=== PATIENT | female | born 1950 | race Caucasian/White ===

== ENCOUNTER 2022-10-18 13:38 | Outpatient (OUT) | payer MEDICARE, MEDICAID, SELFPAY ==
--- NOTE | 2022-10-18 14:20 | PM.CN ---
Consult Note: HPI Data of Consult Patient: known to practice within the last 3 years Consult date: 10/18/22 Requesting Physician: DEANA GUERRERO NP Primary Care Provider: Geraldo Rocha MD Consult Narrative Reason for consult: low back pain Narrative: Johanna is here for f/u of second MBB lumbar L4/5, L5/S1 done 09/25/22. She had 90% relief of pain for several hours after procedure. LUCÍA 56. She would like to proceed with RFA. Procedure discussed in detail. No new sensorimotor or bowel or bladder issues. No radicular sx. No medication SE. Pain bilat low back worse with all ROM. cc:: CC: DEANA GUERRERO NP Review of Systems ROS Status of ROS 10 or more systems reviewed and unremarkable except as noted in history and below Exam Constitutional: Documenting provider has reviewed patient's vital signs: yes Common normals: no apparent distress, average body habitus, oriented x3, no limitations, healthy appearing, alert and well nourished General appearance: cooperative, comfortable and well developed Orientation/consciousness: Yes awake, Yes oriented to person, Yes oriented to place and Yes oriented to time HENMT: Common normals: normocephalic and head/scalp atraumatic Nose: external nose normal Respiratory: Common normals: normal respiratory effort, no retractions and no use of accessory muscles Effort & inspection: able to speak in complete sentences and symmetric chest movement Back & Pelvis: Lumbar spine/lower back: normal to inspection, ROM limited, pain with ROM, paraspinal muscle tenderness, straight leg raise positive right, straight leg raise positive left and other soft tissue findings (positive facet loading bilat) Extremity: Common normals: normal to inspection, full ROM and normal capillary refill General: normal exam except as noted Other: muscle strength 4/5 bilat with intact sensation bilat LE Skin: Common normals: no rashes or lesions noted Assessment and Plan Assessment and Plan (1) Lumbar spondylosis: Plan schedule thermal RFA right lumbar L4/5, L5/S1 followed by left RFA L4/5, L5/S1 under fluoroscopy. narcan rx refill norco
== END 2022-10-18 13:39 ==
PROVIDERS: PCP Family Medicine; Visit Provider Nurse Practitioner
DX: M47.816 Spondylosis without myelopathy or radiculopathy, lumbar region (principal)
CPT/HCPCS: G0463

== ENCOUNTER 2022-11-14 14:33 | Outpatient (OUT) | payer MEDICARE, MEDICAID, SELFPAY ==
--- NOTE | 2022-11-14 | ECG_ITS ---
[facility] Test Date: 2022-11-14 Pat Name: Johanna Jack Department: Room: - Gender: Female Consulting Manager: : 1950 Requested By: [id number] Order Number: [id number] Reading MD: AXEL OROURKE Measurements Intervals [place] Rate: 83 P: 64 [place]: 204 QRS: 44 QRSD: 75 T: 48 QT: 355 QTc: 418 Interpretive Statements SINUS RHYTHM ANTEROSEPTAL MYOCARDIAL INFARCTION [40+ ms Q WAVE IN V1-V4], OF INDETERMINATE AGE No previous ECG available for comparison Electronically Signed On 11-15-2022 6:59:46 EDT by AXEL OROURKE
== END 2022-11-14 14:34 | disposition home or self-care (01) ==
LOC: CARD 14:33
PROVIDERS: PCP Family Medicine; Visit Provider Nurse Practitioner
DX: Z01.810 Encounter for preprocedural cardiovascular examination (principal); I10 Essential (primary) hypertension
CPT/HCPCS: 93005

== ENCOUNTER 2022-11-27 09:39 | Day surgery (SDC) | payer MEDICARE, MEDICAID, SELFPAY ==
[2022-11-27 09:58] VITALS: BP 175/95; PULSE 100; RESP 16; TEMP 36.3; O2SAT 98
[2022-11-27] MEDS: 0.9 % SODIUM CHLORIDE 500 ML 50 ML IV (10:06)
[2022-11-27 10:07] LABS: Glucometer 140 mg/dL (74-106)
[2022-11-27] MEDS: BUPIVACAINE HCL 0.25% PF 25 MG/10 ML VIAL 4 ML INJ (10:51)
[2022-11-27] MEDS: LIDOCAINE HCL 2% 400 MG/20 ML MDV 8 ML INJ (10:52)
[2022-11-27] MEDS: METHYLPREDNISOLONE ACETATE 40 MG/ML VIAL INJ (10:52)
[2022-11-27 11:03] VITALS: BP 136/75; PULSE 81; RESP 16; O2SAT 95
--- NOTE | 2022-11-27 11:03 | W.PM.PROCNOT ---
Date of procedure: 11/27/22 Pre-op diagnosis: lumbar spondylosis Post-op diagnosis: same Procedure: Right lumbar 4/5 and 5/sacral 1 Radiofrequency ablation Under fluoroscopic guidance Rhizotomy was created using radio frequency ablation at 80?C for 90 seconds 1 to 2 lesions created at each site. Post lesioning injection of 2 mL each of 0.25% Marcaine and 2% lidocaine with Depo-Medrol 40mg. 0.5 to 1 mL injected at each site IV in place yes If Intravenous fluids: NS at KVO Anesthesia local 2% lidocaine for Timeout process compliant After informed consent obtained.Patient brought to the procedure room placed in the prone position skin overlying the area was prepped and draped in a sterile fashion using betadine. 25 gauge needle was used to create a skin wheal over each of the targeted areas utilizing 2% lidocaine. A rhizotomy needle with a 10 mm active tip was inserted over each of the anesthetized areas and directed towards each of the medial branches accomplished under fluoroscopic guidance. after encountering the same we had positive sensory stimulation, negative motor stimulation was noted. lesions were then created. Post lesioning, steroid solution was injected needles removed. Patient was transferred to recovery room in stable condition to be discharged home after meeting criteria. Anesthesia: MAC Surgeon: Db Munoz Condition: stable
[2022-11-27 11:08] VITALS: BP 141/63; PULSE 79; RESP 16; O2SAT 94
== END 2022-11-27 11:20 | disposition home or self-care (01) ==
LOC: SURGOUT 09:41
PROVIDERS: PCP Family Medicine; Visit Provider Anesthesiology Pain Medicine
PROC: (CPT 1992; principal; 2022-11-27 10:30)
DX: M47.816 Spondylosis without myelopathy or radiculopathy, lumbar region (principal); E11.9 Type 2 diabetes mellitus without complications
CPT/HCPCS: 36415; 64635; 64636; 82948; J1030; J2704

== ENCOUNTER 2022-12-04 07:33 | Day surgery (SDC) | payer MEDICARE, MEDICAID, SELFPAY ==
[2022-12-04 07:43] VITALS: BP 150/74; PULSE 73; RESP 16; TEMP 36.2; O2SAT 99
[2022-12-04 07:49] LABS: Glucometer 123 mg/dL (74-106)
[2022-12-04] MEDS: 0.9 % SODIUM CHLORIDE 500 ML 50 ML IV (08:17)
[2022-12-04] MEDS: BUPIVACAINE HCL 0.25% PF 25 MG/10 ML VIAL 4 ML INJ (08:27)
[2022-12-04] MEDS: LIDOCAINE HCL 2% 400 MG/20 ML MDV 10 ML INJ (08:27)
[2022-12-04] MEDS: METHYLPREDNISOLONE ACETATE 40 MG/ML VIAL INJ (08:27)
[2022-12-04 08:39] VITALS: BP 118/67; PULSE 90; RESP 14; O2SAT 95
[2022-12-04 08:43] VITALS: BP 99/60; PULSE 87; RESP 16; O2SAT 97
--- NOTE | 2022-12-04 10:01 | W.PM.PROCNOT ---
Date of procedure: 12/04/22 Pre-op diagnosis: Lumbar Spondylosis Post-op diagnosis: same Procedure: Left Lumbar 4/5 and 5/S1 Radiofrequency ablation Under fluoroscopic guidance Rhizotomy was created using radio frequency ablation at 80?C for 90 seconds 1 to 2 lesions created at each site. Post lesioning injection of 2 mL each of 0.25% Marcaine and 2% lidocaine with Depo-Medrol 40mg. 0.5 to 1 mL injected at each site IV in place yes Intravenous fluids: NS at KVO Anesthesia local 2% lidocaine for Anesthesia Other: MAC Timeout process compliant After informed consent obtained.Patient brought to the procedure room placed in the prone position skin overlying the area was prepped and draped in a sterile fashion using betadine. 25 gauge needle was used to create a skin wheal over each of the targeted areas utilizing 2% lidocaine. A rhizotomy needle with a 10 mm active tip was inserted over each of the anesthetized areas and directed towards each of the medial branches accomplished under fluoroscopic guidance. after encountering the same we had positive sensory stimulation, negative motor stimulation was noted. lesions were then created. Post lesioning, steroid solution was injected needles removed. Patient was transferred to recovery room in stable condition to be discharged home after meeting criteria. Anesthesia: MAC Surgeon: Db Munoz Condition: stable
== END 2022-12-04 09:18 | disposition home or self-care (01) ==
LOC: SURGOUT 07:34
PROVIDERS: PCP Family Medicine; Visit Provider Anesthesiology Pain Medicine
DX: M47.816 Spondylosis without myelopathy or radiculopathy, lumbar region (principal)
CPT/HCPCS: 36415; 64635; 64636; 82948; J1030; J2704

== ENCOUNTER 2022-12-05 12:13 | Outpatient (OUT) | payer MEDICARE, MEDICAID, SELFPAY ==
[2022-12-05 14:11] LABS: Bilirubin Urine NEGATIVE (NEGATIVE); Blood Urine NEGATIVE (NEGATIVE); Clarity Urine CLEAR (CLEAR); Color Urine LT. YELLOW (YELLOW); Glucose Urine UA 250 mg/dL (NEGATIVE); Ketones Urine NEGATIVE (NEGATIVE); Leukocyte Esterase Urine NEGATIVE (NEGATIVE); Nitrite Urine NEGATIVE (NEGATIVE); Protein Urine TRACE mg/dL (NEG/TRACE); Specific Gravity Urine 1.015 (1.005-1.025); pH Urine 6.5 (5.0-9.0)
[2022-12-05 14:20] LABS: WBC Urine 0-2 #/HPF (NONE SEEN)
[2022-12-05 14:21] LABS: Bacteria Urine NONE SEEN #/HPF (NONE SEEN); Cast Seen? NONE SEEN #/LPF (NONE SEEN); Crystals Seen? None Seen #/HPF (None Seen); Mucus Urine NONE SEEN (NONE SEEN); RBC Urine 0-2 #/HPF (0-2); Squamous Epithelial Cell Urine RARE #/LPF (NONE/RARE)
== END 2022-12-05 12:14 | disposition home or self-care (01) ==
LOC: LAB 12:16
PROVIDERS: PCP Family Medicine
DX: E55.9 Vitamin D deficiency, unspecified (principal); E83.52 Hypercalcemia
CPT/HCPCS: 81001; 81003

== ENCOUNTER 2022-12-05 12:18 | Outpatient (OUT) | payer MEDICARE, MEDICAID, SELFPAY ==
[2022-12-05 14:09] LABS: Basophils Percent Auto 0.1 % (0.2-2.0); Eosinophils Absolute Auto 0.3 10^3/uL (0.0-0.7); Eosinophils Percent Auto 2.8 % (0.9-7.0); Hematocrit 36.1 % (36.0-48.0); Hemoglobin 12.4 g/dL (12.0-16.0); Immature Granulocytes Abs Auto 0.06 10^3/uL (0.00-0.03); Immature Granulocytes Pct Auto 0.6 % (0.0-0.5); Lymphocytes Absolute Auto 2.3 10^3/uL (1.2-3.8); Lymphocytes Percent Auto 24.1 % (20.5-60.0); Mean Corpuscular HGB Conc 34.3 g/dL (29.9-35.2); Mean Corpuscular Hemoglobin 30.3 pg (26.7-34.0); Mean Corpuscular Volume 88.3 fL (81.0-99.0); Mean Platelet Volume 11.6 fL (9.5-13.5); Monocytes Absolute Auto 0.8 10^3/uL (0.3-0.8); Monocytes Percent Auto 8.2 % (1.7-12.0); Neutrophils Absolute Auto 6.2 10^3/uL (1.4-6.5); Neutrophils Percent Auto 64.2 % (43.0-75.0); Red Blood Count 4.09 10^6/uL (4.20-5.40); Red Cell Distribution Width 13.2 % (11.0-15.0); White Blood Count 9.7 10^3/uL (4.0-11.0)
[2022-12-05 14:50] LABS: Anion Gap 14.5; BUN Creatinine Ratio 34.4; Carbon Dioxide 24.6 mmol/L (21.0-32.0); Chloride 104 mmol/L (98-107); Estimated GFR (African America >60 (>=60); Estimated GFR (Non-African Ame 60 (>=60); Glucose 87 mg/dL (74-106); Magnesium 1.3 mg/dL (1.8-2.4); Phosphorus 3.3 mg/dL (2.6-4.7); Potassium 4.1 mmol/L (3.5-5.1); Sodium 139 mmol/L (136-145)
[2022-12-05 15:01] LABS: Platelet Count 117 10^3/uL (150-450)
[2022-12-06 14:12] LABS: PTH, Intact 17 pg/mL (15-65)
== END 2022-12-05 12:19 | disposition home or self-care (01) ==
LOC: LAB 12:19
PROVIDERS: PCP Family Medicine
DX: E55.9 Vitamin D deficiency, unspecified (principal); E83.52 Hypercalcemia; I12.9 Hypertensive chronic kidney disease with stage 1 through stage 4 chronic kidney disease, or unspecified chronic kidney disease; N18.2 Chronic kidney disease, stage 2 (mild)
CPT/HCPCS: 36415; 80048; 81001; 82306; 83735; 83970; 84100; 85025

== ENCOUNTER 2022-12-30 10:06 | Outpatient (REF) | payer MEDICARE, MEDICAID, SELFPAY | END 2022-12-30 10:07 | LOC: LAB 10:06 | PROVIDERS: PCP Family Medicine | DX: E13.22 Other specified diabetes mellitus with diabetic chronic kidney disease (principal); N18.2 Chronic kidney disease, stage 2 (mild); I12.9 Hypertensive chronic kidney disease with stage 1 through stage 4 chronic kidney disease, or unspecified chronic kidney disease; E83.42 Hypomagnesemia | CPT/HCPCS: 82570; 83735 ==

== ENCOUNTER 2022-12-31 02:21 | Outpatient (REF) | payer MEDICARE, MEDICAID, SELFPAY ==
[2022-12-31 09:39] LABS: Creatinine Urine Random 67.14 mg/dL (20.00-300.00)
[2022-12-31 10:03] LABS: Estimated GFR (African America >60 (>=60); Estimated GFR (Non-African Ame 50 (>=60); Magnesium 1.7 mg/dL (1.8-2.4)
== END 2022-12-31 02:22 | disposition home or self-care (01) ==
LOC: LAB 02:21
PROVIDERS: PCP Family Medicine
DX: I12.9 Hypertensive chronic kidney disease with stage 1 through stage 4 chronic kidney disease, or unspecified chronic kidney disease (principal); N18.2 Chronic kidney disease, stage 2 (mild); E13.22 Other specified diabetes mellitus with diabetic chronic kidney disease; E83.42 Hypomagnesemia
CPT/HCPCS: 36415; 82565; 82570; 83735

== ENCOUNTER 2023-01-03 09:55 | Outpatient (OUT) | payer MEDICARE, MEDICAID, SELFPAY ==
--- NOTE | 2023-01-03 10:22 | P.CN_ITS ---
Consult Note: HPI Data of Consult Patient: known to practice within the last 3 years Requesting Physician: Jaylin Edwards NP Primary Care Provider: Geraldo Rocha MD Consult Narrative Reason for consult: RFA F/u Narrative: Johanna Jack is a pleasant 72 year old female who presents for evaluation and management of chronic low back pain. Per patient she has had 99% pain relief and improvement in ADLs, range of motion, ability to stand longer, ability to walk further from Right & Left L4/5 L5/S1 RFA. cc:: CC: Jaylin Edwards NP Review of Systems ROS Status of ROS 10 or more systems reviewed and unremarkable except as noted in history and below PFSH PFSH Medical History Surgical History Meds Home Medications and Allergies Home Medications Medication Instructions Recorded Confirmed Type alprazolam 0.5 mg tablet,extended 0.5 mg PO QDAY 10/19/22 12/04/22 History release 24 hr (Xanax XR) amitriptyline 25 mg tablet 25 mg PO QDAY 10/19/22 12/04/22 History amlodipine 10 mg tablet 10 mg PO QDAY 10/19/22 12/04/22 History aspirin 81 mg tablet,delayed 81 mg PO QDAY 10/19/22 12/04/22 History release (Adult Aspirin Regimen) fenofibrate nanocrystallized 145 145 mg PO QDAY 10/19/22 12/04/22 History mg tablet fluoxetine 10 mg tablet 10 mg PO QDAY 10/19/22 12/04/22 History gabapentin 600 mg tablet 600 mg PO TID 10/19/22 12/04/22 History glucagon 3 mg/actuation nasal mg intranasal 10/19/22 History spray (Baqsimi) hydrochlorothiazide 25 mg tablet 12.5 mg PO QDAY 10/19/22 12/04/22 History hydrocodone 5 mg-acetaminophen 325 1 tab PO BID 10/19/22 12/04/22 History mg tablet insulin degludec 100 unit/mL (3 30 unit subcut QDAY 10/19/22 12/04/22 History mL) subcutaneous pen (Tresiba FlexTouch U-100 insulin) insulin lispro 100 unit/mL 1 sliding scale dose subcut 10/19/22 12/04/22 History subcutaneous solution (Humalog USEASDIRECTD U-100 Insulin) losartan 100 mg tablet 100 mg PO QDAY 10/19/22 12/04/22 History metformin 500 mg tablet 500 mg PO BID 10/19/22 12/04/22 History pantoprazole 40 mg tablet,delayed 40 mg PO QDAY 10/19/22 12/04/22 History release pravastatin 20 mg tablet 20 mg PO QDAY 10/19/22 12/04/22 History sucralfate 1 gram tablet 1 g PO TID 10/19/22 12/04/22 History trazodone 100 mg tablet 100 mg PO QDAY 10/19/22 12/04/22 History Allergies Allergy/AdvReac Type Severity Reaction Status Date / Time haloperidol [From Haldol] Allergy Unknown Verified 11/27/22 09:53 ebenezer Allergy Unknown Verified 11/27/22 09:53 Penicillins Allergy Unknown Verified 11/27/22 09:53 topiramate [From Topamax] Allergy Unknown Verified 11/27/22 09:53 Exam Constitutional Documenting provider has reviewed patient's vital signs: yes Common normals: no apparent distress, oriented x3, healthy appearing, alert and well nourished General appearance: cooperative Nutritional appearance: obese HENMT Common normals: normocephalic, hearing grossly normal bilaterally and moist oral mucous membranes Head and scalp: normocephalic Eye Common normals: PERRL Pupil: PERRL Neck & C-Spine Common normals: full ROM General: normal visual inspection Chest Common normals: inspection of chest normal Respiratory Common normals: normal respiratory effort, no retractions and no use of accessory muscles Back & Pelvis Common normals: thoracic and lumbar spine normal to inspection, no thoracic nor lumbar tenderness and thoraco-lumbar ROM normal Sacroiliac joints: SI joints normal Extremity Common normals: normal to inspection and full ROM Neuro Common normals: oriented x3, CN's II-XII intact bilaterally, moves all extrem ities, no focal motor deficits, no sensory deficits noted, deep tendon reflexes 2+ bilaterally and gait normal Sensorium/orientation: alert Motor exam: strength 5/5 throughout and no movement abnormalities noted Psych Common normals: mental status grossly normal, thought process normal, cooperative, affect normal, speech normal and activity/motor behavior normal Speech: normal speech Thought process: normal thought process Results Additional Findings Additional findings: I have checked an OAR[place] report on this patient today and there are no aberrancies noted in the prescribing history.?? A drug screen was completed and reviewed within the last year, and if there has not been a drug screen completed we ordered one today to monitor higher risk, state monitored pain medication use. Assessment and Plan Assessment and Plan (1) Lumbar spondylosis: Assessment and Plan: per pt 99% ongoing pain relief and improvement in ADLs, range of motion, ability to stand longer, ability to walk further from Right & Left L4/5 L5/S1 RFA (2) Chronic pain syndrome: (3) Chronic prescription opiate use: Assessment and Plan: patient has [place] 5-325mg BID PRN pain available encouraged to take sparingly and only as needed now that her pain is almost completely gone she should not need to continue on the medications, no refill at this time I feel these medications are improving the patient's quality of life and allow them to tolerate activities of daily living as well as participate in recreational activity.? The patient does not report intolerable side effects. The patient is NOT opioid naive and non-pharmacologic and non-opioid treatment has failed to significantly relieve the patient's pain and improve functionality. The patient has a diagnosis that is related to a somatic or visceral pain etiology.? I reviewed with the patient the potential risks and side effects with the use of? opioid medications including but not limited to respiratory depression,? sedation, and even . I verified the patient has access to naloxone should? these effects occur. I advised the patient to avoid the use of any other? sedation substances including alcohol, THC, and benzodiazepines while? taking opioid medications due to the risk of compounding side effects and? detrimental outcomes. The patient was advised to let? their family know they had Naloxone in case they would need to administer? the medication.? (4) History of benzodiazepine use: Assessment and Plan: Instructed to not take xanax with norco. Patient advised we will not be prescribing opioids if she continues xanax use, patient agreeable. An FDA review has found that combined use of opioid medicines with benzodiazepines has resulted in serious side effects, including slowed or difficult breathing and deaths. The 2021 CDC guidelines recommend avoiding co- prescribing opioids and benzodiazepines. We discussed that opioids will not be prescribed while the patient remains on benzodiazepines.? (5) Obesity (BMI 30.0-34.9): Assessment and Plan: The patient was counseled that proper dietary changes and consistent participation in a home exercise plan can lead to weight loss. Weight loss can help to improve functionality in patients with chronic pain.? Plan f/u in 3 months continue home exercises continue to follow up with PCP and Nephrology
== END 2023-01-03 09:56 | disposition home or self-care (01) ==
LOC: PM 09:56
PROVIDERS: PCP Family Medicine; Visit Provider Nurse Practitioner
DX: M47.816 Spondylosis without myelopathy or radiculopathy, lumbar region (principal); G89.4 Chronic pain syndrome; Z79.899 Other long term (current) drug therapy
CPT/HCPCS: G0463

== ENCOUNTER 2023-02-14 10:43 | Outpatient (REF) | payer MEDICARE, MEDICAID, SELFPAY ==
[2023-02-15 11:10] LABS: Bilirubin Urine NEGATIVE (NEGATIVE); Blood Urine NEGATIVE (NEGATIVE); Clarity Urine CLEAR (CLEAR); Color Urine LT. YELLOW (YELLOW); Glucose Urine UA NEGATIVE (NEGATIVE); Ketones Urine NEGATIVE (NEGATIVE); Leukocyte Esterase Urine NEGATIVE (NEGATIVE); Nitrite Urine NEGATIVE (NEGATIVE); Protein Urine 30 mg/dL (NEG/TRACE); Urobilinogen Urine 0.2 EU/dL (0.2-1.0)
[2023-02-15 11:48] LABS: Bacteria Urine NONE SEEN #/HPF (NONE SEEN); Cast Seen? NONE SEEN #/LPF (NONE SEEN); Crystals Seen? None Seen #/HPF (None Seen); Mucus Urine NONE SEEN (NONE SEEN); RBC Urine 0-2 #/HPF (0-2); Squamous Epithelial Cell Urine RARE #/LPF (NONE/RARE); WBC Urine NONE SEEN #/HPF (NONE SEEN)
[2023-02-19 15:10] LABS: Albumin, U 73.7 % (.); Alpha-1-Globulin, U 5.3 % (.); Alpha-2-Globulin, U 3.8 % (.); Beta Globulin, U 11.2 % (.); Gamma Globulin, U 5.9 % (.); M-Spike, % Not Observed % (Not Observed); Protein,Total,Urine 52.9 mg/dL (Not Estab.)
== END 2023-02-14 10:44 | disposition home or self-care (01) ==
LOC: LAB 10:43
PROVIDERS: PCP Family Medicine
DX: I12.9 Hypertensive chronic kidney disease with stage 1 through stage 4 chronic kidney disease, or unspecified chronic kidney disease (principal); N18.2 Chronic kidney disease, stage 2 (mild); E13.22 Other specified diabetes mellitus with diabetic chronic kidney disease; E83.42 Hypomagnesemia
CPT/HCPCS: 81001

== ENCOUNTER 2023-02-15 05:18 | Outpatient (REF) | payer MEDICARE, MEDICAID, SELFPAY ==
[2023-02-15 10:42] LABS: Basophils Percent Auto 0.2 % (0.2-2.0); Eosinophils Absolute Auto 0.3 10^3/uL (0.0-0.7); Eosinophils Percent Auto 6.4 % (0.9-7.0); Hematocrit 33.7 % (36.0-48.0); Hemoglobin 11.6 g/dL (12.0-16.0); Immature Granulocytes Abs Auto 0.02 10^3/uL (0.00-0.03); Immature Granulocytes Pct Auto 0.4 % (0.0-0.5); Lymphocytes Absolute Auto 1.3 10^3/uL (1.2-3.8); Lymphocytes Percent Auto 25.1 % (20.5-60.0); Mean Corpuscular HGB Conc 34.4 g/dL (29.9-35.2); Mean Corpuscular Hemoglobin 31.2 pg (26.7-34.0); Mean Corpuscular Volume 90.6 fL (81.0-99.0); Mean Platelet Volume 11.8 fL (9.5-13.5); Monocytes Absolute Auto 0.4 10^3/uL (0.3-0.8); Monocytes Percent Auto 7.4 % (1.7-12.0); Neutrophils Absolute Auto 3.1 10^3/uL (1.4-6.5); Neutrophils Percent Auto 60.5 % (43.0-75.0); Platelet Count 97 10^3/uL (150-450); Red Blood Count 3.72 10^6/uL (4.20-5.40); Red Cell Distribution Width 13.2 % (11.0-15.0); White Blood Count 5.1 10^3/uL (4.0-11.0)
[2023-02-15 12:18] LABS: Anion Gap 12.3; Calcium 9.6 mg/dL (8.5-10.1); Carbon Dioxide 28.8 mmol/L (21.0-32.0); Chloride 104 mmol/L (98-107); Estimated GFR (African America >60 (>=60); Estimated GFR (Non-African Ame 52 (>=60); Glucose 139 mg/dL (74-106); Magnesium 1.4 mg/dL (1.8-2.4); Phosphorus 3.1 mg/dL (2.6-4.7); Potassium 4.1 mmol/L (3.5-5.1); Sodium 141 mmol/L (136-145)
[2023-02-18 12:09] LABS: Albumin 3.3 g/dL (2.9-4.4); Alpha-1-Globulin 0.4 g/dL (0.0-0.4); Alpha-2-Globulin 0.7 g/dL (0.4-1.0); Gamma Globulin 0.8 g/dL (0.4-1.8); Protein, Total 6.1 g/dL (6.0-8.5)
[2023-02-18 15:07] LABS: Free Kappa Lt Chains,S 51.5 mg/L (3.3-19.4); Free Lambda Lt Chains,S 49.8 mg/L (5.7-26.3); Kappa/Lambda Ratio,S 1.03 (0.26-1.65)
== END 2023-02-15 05:19 | disposition home or self-care (01) ==
LOC: LAB 05:18
PROVIDERS: PCP Family Medicine
DX: E13.22 Other specified diabetes mellitus with diabetic chronic kidney disease (principal); I12.9 Hypertensive chronic kidney disease with stage 1 through stage 4 chronic kidney disease, or unspecified chronic kidney disease; N18.2 Chronic kidney disease, stage 2 (mild); E83.42 Hypomagnesemia
CPT/HCPCS: 36415; 80048; 83735; 84100; 84155; 84165; 85025

== ENCOUNTER 2023-02-15 10:37 | Outpatient (REF) | payer MEDICARE, MEDICAID, SELFPAY ==
[2023-02-15 11:49] LABS: BUN Creatinine Ratio 19.4; Calcium 9.7 mg/dL (8.5-10.1); Carbon Dioxide 28.1 mmol/L (21.0-32.0); Chloride 104 mmol/L (98-107); Estimated GFR (African America >60 (>=60); Estimated GFR (Non-African Ame 50 (>=60); Glucose 138 mg/dL (74-106); Potassium 4.1 mmol/L (3.5-5.1); Sodium 141 mmol/L (136-145)
== END 2023-02-15 10:38 | disposition home or self-care (01) ==
LOC: LAB 10:37
PROVIDERS: PCP Family Medicine
DX: I12.9 Hypertensive chronic kidney disease with stage 1 through stage 4 chronic kidney disease, or unspecified chronic kidney disease (principal); E13.22 Other specified diabetes mellitus with diabetic chronic kidney disease; N18.2 Chronic kidney disease, stage 2 (mild); E83.42 Hypomagnesemia
CPT/HCPCS: 36415; 80048; 81001; 83521; 83735; 84100; 84155; 84165; 85025

== ENCOUNTER 2023-03-11 01:29 | Outpatient (REF) | payer MEDICARE, MEDICAID, SELFPAY ==
[2023-03-11 08:07] LABS: Calcium 9.4 mg/dL (8.5-10.1)
[2023-03-11 08:15] LABS: Estimated Average Glucose 117 mg/dL; Glycohemoglobin A1C 5.7 % (4.5-6.2)
== END 2023-03-11 01:30 | disposition home or self-care (01) ==
LOC: LAB 01:29
PROVIDERS: PCP Family Medicine
DX: M81.0 Age-related osteoporosis without current pathological fracture (principal); E11.65 Type 2 diabetes mellitus with hyperglycemia; E55.9 Vitamin D deficiency, unspecified
CPT/HCPCS: 36415; 82306; 82310; 83036

== ENCOUNTER 2023-04-04 09:51 | Outpatient (OUT) | payer MEDICARE, MEDICAID, SELFPAY ==
--- NOTE | 2023-04-04 10:31 | P.CN_ITS ---
Consult Note: HPI Data of Consult Patient: known to practice within the last 3 years Requesting Physician: Jaylin Edwards NP Primary Care Provider: Geraldo Rocha MD Consult Narrative Reason for consult: RFA F/u Narrative: Johanna Jack is a pleasant 72 year old female who presents for evaluation and management of chronic back pain. cc:: CC: Jaylin Edwards NP Review of Systems ROS Status of ROS 10 or more systems reviewed and unremarkable except as noted in history and below Musculoskeletal Reports: back pain PFSH PFSH Medical History Anxiety ?F41.9 - Anxiety disorder, unspecified (ICD-10) Depression ?F32.A - Depression, unspecified (ICD-10) Diabetes ?E11.9 - Type 2 diabetes mellitus without complications (ICD-10) Heartburn ?R12 - Heartburn (ICD-10) Hiatal hernia ?K44.9 - Diaphragmatic hernia without obstruction or gangrene (ICD-10) High cholesterol ?E78.00 - Pure hypercholesterolemia, unspecified (ICD-10) Hypertension ?I10 - Essential (primary) hypertension (ICD-10) Inguinal hernia ?K40.90 - Unilateral inguinal hernia, without obstruction or gangrene, not specified as recurrent (ICD-10) Obesity ?E66.9 - Obesity, unspecified (ICD-10) Osteoarthritis ?M19.90 - Unspecified osteoarthritis, unspecified site (ICD-10) Smoker ?F17.200 - Nicotine dependence, unspecified, uncomplicated (ICD-10) Upper back pain ?M54.9 - Dorsalgia, unspecified (ICD-10) Surgical History H/O tubal ligation ?Z98.51 - Tubal ligation status (ICD-10) H/O: hysterectomy ?Z90.710 - Acquired absence of both cervix and uterus (ICD-10) History of cholecystectomy ?Z90.49 - Acquired absence of other specified parts of digestive tract (ICD- 10) Meds Home Medications and Allergies Home Medications Medication Instructions Recorded Confirmed Type alprazolam 0.5 mg tablet,extended 0.5 mg PO QDAY 10/19/22 12/04/22 History release 24 hr (Xanax XR) amitriptyline 25 mg tablet 25 mg PO QDAY 10/19/22 12/04/22 History amlodipine 10 mg tablet 10 mg PO QDAY 10/19/22 12/04/22 History aspirin 81 mg tablet,delayed 81 mg PO QDAY 10/19/22 12/04/22 History release (Adult Aspirin Regimen) fenofibrate nanocrystallized 145 145 mg PO QDAY 10/19/22 12/04/22 History mg tablet fluoxetine 10 mg tablet 10 mg PO QDAY 10/19/22 12/04/22 History gabapentin 600 mg tablet 600 mg PO TID 10/19/22 12/04/22 History glucagon 3 mg/actuation nasal mg intranasal 10/19/22 History spray (Baqsimi) hydrochlorothiazide 25 mg tablet 12.5 mg PO QDAY 10/19/22 12/04/22 History hydrocodone 5 mg-acetaminophen 325 1 tab PO BID 10/19/22 12/04/22 History mg tablet insulin degludec 100 unit/mL (3 30 unit subcut QDAY 10/19/22 12/04/22 History mL) subcutaneous pen (Tresiba FlexTouch U-100 insulin) insulin lispro 100 unit/mL 1 sliding scale dose subcut 10/19/22 12/04/22 History subcutaneous solution (Humalog USEASDIRECTD U-100 Insulin) losartan 100 mg tablet 100 mg PO QDAY 10/19/22 12/04/22 History metformin 500 mg tablet 500 mg PO BID 10/19/22 12/04/22 History pantoprazole 40 mg tablet,delayed 40 mg PO QDAY 10/19/22 12/04/22 History release pravastatin 20 mg tablet 20 mg PO QDAY 10/19/22 12/04/22 History sucralfate 1 gram tablet 1 g PO TID 10/19/22 12/04/22 History trazodone 100 mg tablet 100 mg PO QDAY 10/19/22 12/04/22 History hydrocodone 5 mg-acetaminophen 325 1 tab PO BID PRN pain #60 tabs 01/24/23 Rx mg tablet hydrocodone 5 mg-acetaminophen 325 1 tab PO BID PRN pain #60 tabs 02/19/23 Rx mg tablet hydrocodone 5 mg-acetaminophen 325 1 tab PO BID PRN pain #60 tabs 03/27/23 Rx mg tablet Allergies Allergy/AdvReac Type Severity Reaction Status Date / Time haloperidol [From Haldol] Allergy Unknown Verified 11/27/22 09:53 ebenezer Allergy Unknown Verified 11/27/22 09:53 Penicillins Allergy Unknown Verified 11/27/22 09:53 topiramate [From Topamax] Allergy Unknown Verified 11/27/22 09:53 Exam Constitutional Documenting provider has reviewed patient's vital signs: yes Common normals: no apparent distress, oriented x3, healthy appearing, alert and well nourished General appearance: cooperative Nutritional appearance: obese HENMT Common normals: normocephalic, hearing grossly normal bilaterally and moist oral mucous membranes Head and scalp: normocephalic Eye Common normals: PERRL Pupil: PERRL Neck & C-Spine Common normals: full ROM General: normal visual inspection Chest Common normals: inspection of chest normal Respiratory Common normals: normal respiratory effort, no retractions and no use of accessory muscles Back & Pelvis Common normals: thoracic and lumbar spine normal to inspection, no thoracic nor lumbar tenderness and thoraco-lumbar ROM normal Thoracic spine/upper back: ROM limited and pain with ROM Sacroiliac joints: SI joints normal Back image (female): 1. patient points to this area as source of worst pain Extremity Common normals: normal to inspection and full ROM Neuro Common normals: oriented x3, CN's II-XII intact bilaterally, moves all extremities, no focal motor deficits, no sensory deficits noted, deep tendon reflexes 2+ bilaterally and gait normal Sensorium/orientation: alert Motor exam: strength 5/5 throughout and no movement abnormalities noted Psych Common normals: mental status grossly normal, thought process normal, cooperative, affect normal, speech normal and activity/motor behavior normal Speech: normal speech Thought process: normal thought process Assessment and Plan Assessment and Plan (1) Thoracic spondylosis: (2) Chronic thoracic back pain: (3) Chronic pain syndrome: (4) Chronic prescription opiate use: Assessment and Plan: I feel these medications are improving the patient's quality of life and allow them to tolerate activities of daily living as well as participate in recreational activity.? The patient does not report intolerable side effects. The patient is NOT opioid naive and non-pharmacologic and non-opioid treatment has failed to significantly relieve the patient's pain and improve functionality. The patient has a diagnosis that is related to a somatic or visceral pain etiology. ? ?? I reviewed with the patient the potential risks and side effects with the use of? opioid medications including but not limited to respiratory depression,? sedation, and even . I verified the patient has access to naloxone should? these effects occur. I advised the patient to avoid the use of any other? sedation substances including alcohol, THC, and benzodiazepines while? taking opioid medications due to the risk of compounding side effects and? detrimental outcomes. I reviewed the PRINCIPAL EMBEDDED SOFTWARE ENGINEER, pain treatment agreement, urine? drug screen, and opioid start talking forms. The patient was advised to let? their family know they had Naloxone in case they would need to administer? the medication.? ?? A drug screen was completed within the last year, and no aberrancies were noted regarding their use of controlled substances. The patient understands they are subject to the terms and conditions of the pain contract that they have signed. ? ?? I have checked an OARRS report on this patient today and there are no aberrancies noted in the prescribing history.? Plan thoracic spine xray discussed facet blocks and RFA for thoracic back pain f/u 2 weeks to review xrays
== END 2023-04-04 09:52 | disposition home or self-care (01) ==
LOC: PM 09:51
PROVIDERS: PCP Family Medicine; Visit Provider Nurse Practitioner
DX: M47.814 Spondylosis without myelopathy or radiculopathy, thoracic region (principal); M54.6 Pain in thoracic spine; G89.4 Chronic pain syndrome; Z79.891 Long term (current) use of opiate analgesic
CPT/HCPCS: G0463

== ENCOUNTER 2023-04-05 18:12 | Inpatient (IN) | payer MEDICARE, MEDICAID, SELFPAY ==
[2023-04-05] VITALS (45 sets, daily range): BP systolic 135–171; BP diastolic 55–96; PULSE 91–109; RESP 0–32; TEMP 36.6–36.7; O2SAT 84–95; BMI 37.8; BMI 36.8
--- NOTE | 2023-04-05 18:11 | ECG_ITS ---
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
--- NOTE | 2023-04-05 18:13 | ED.SOB1 ---
HPI - SOB/Dyspnea General Chief Complaint: Shortness of Breath/Dyspnea Stated Complaint: Shortness of breath Time Seen by Provider: 04/05/23 18:21 Source: patient Mode of arrival: ambulance Limitations: no limitations History of Present Illness HPI Narrative: patient is a 72-year-old female who presents to the emergency department by ambulance from her residence in assisted living for the evaluation of cough, congestion and shortness of breath for the last one week. She is due to finish a Z-Michael tomorrow, she has had no improvement with this medication. She has not been on any other recent steroids or cough medications. She states she has a sensation that she is congested in the chest, she cannot clear any sputum. She reports nasal congestion, shortness of breath. She has had no objective fevers. She denies chest pain. She denies any history of heart or lung problems, she denies any history of pneumonia. Related Data Home Medications Medication Instructions Recorded Confirmed amitriptyline 25 mg tablet 25 mg PO BEDTIME 10/19/22 04/06/23 amlodipine 10 mg tablet 10 mg PO QDAY 10/19/22 04/05/23 aspirin 81 mg tablet,delayed 81 mg PO QDAY 10/19/22 04/05/23 release (Adult Aspirin Regimen) fluoxetine 10 mg tablet 10 mg PO QDAY 10/19/22 04/05/23 gabapentin 600 mg tablet 600 mg PO TID 10/19/22 04/05/23 glucagon 3 mg/actuation nasal 3 mg intranasal .every 6 PRN 10/19/22 04/05/23 spray (Baqsimi) hypoglycemia hydrochlorothiazide 25 mg tablet 25 mg PO QDAY 10/19/22 04/05/23 hydrocodone 5 mg-acetaminophen 325 1 tab PO BID PRN pain 10/19/22 04/05/23 mg tablet insulin degludec 100 unit/mL (3 40 unit subcut .at supp 10/19/22 04/05/23 mL) subcutaneous pen (Tresiba FlexTouch U-100 insulin) insulin lispro 100 unit/mL 1 sliding scale dose subcut 10/19/22 04/05/23 subcutaneous solution (Humalog USEASDIRECTD U-100 Insulin) losartan 100 mg tablet 100 mg PO QDAY 10/19/22 04/05/23 metformin 500 mg tablet 500 mg PO BID 10/19/22 04/05/23 pantoprazole 40 mg tablet,delayed 40 mg PO QDAY 10/19/22 04/05/23 release pravastatin 20 mg tablet 20 mg PO BEDTIME 10/19/22 04/06/23 sucralfate 1 gram tablet 1 g PO BEDTIME 10/19/22 04/06/23 aripiprazole 15 mg tablet 15 mg PO BEDTIME 04/05/23 04/06/23 fluticasone propionate 50 2 spray intranasal QAM 04/05/23 04/05/23 mcg/actuation nasal spray,suspension hydralazine 25 mg tablet 25 mg PO Q12H 04/05/23 04/05/23 magnesium oxide 400 mg (241.3 mg 400 mg PO TID 04/05/23 04/05/23 magnesium) tablet vit D3 5000 125 mcg PO DAILY 04/05/23 04/05/23 alprazolam 0.5 mg tablet (Xanax) 0.5 mg PO BID PRN anxiety 04/06/23 04/06/23 baclofen 5 mg tablet 5 mg PO TID PRN muscle spasm 04/06/23 04/06/23 camphor-menthol 0.2 %-3.5 % 1 applic topical BID PRN pain 04/06/23 04/06/23 topical gel dulaglutide 4.5 mg/0.5 mL 4.5 mg subcut QWEEK 04/06/23 04/06/23 subcutaneous pen injector (Trulicity) fenofibrate 160 mg tablet 160 mg PO DAILY 04/06/23 04/06/23 ondansetron HCl 4 mg tablet 4 mg PO Q6H PRN nausea and vomiting 04/06/23 04/06/23 trazodone 50 mg tablet 50 mg PO BEDTIME 04/06/23 04/06/23 Allergies Allergy/AdvReac Type Severity Reaction Status Date / Time haloperidol [From Haldol] Allergy Unknown Verified 11/27/22 09:53 beenezer Allergy Unknown Verified 11/27/22 09:53 Penicillins Allergy Unknown Verified 11/27/22 09:53 topiramate [From Topamax] Allergy Unknown Verified 11/27/22 09:53 Review of Systems ROS Constitutional Denies: fever or chills Ears, nose, mouth, and throat Reports: nasal congestion; Denies: throat pain Cardiovascular Denies: chest pain Respiratory Reports: shortness of breath and cough Gastrointestinal Denies: nausea, vomiting or diarrhea Musculoskeletal Denies: back pain Integumentary/Breast Denies: rash Neurological Denies: headache Hematologic/Lymphatic Denies: easy bruising [facility] Medical History (Updated 04/05/23 @ 23:14 by Linden Gutierrez MD) Anxiety ?F41.9 - Anxiety disorder, unspecified (ICD-10) Depression ?F32.A - Depression, unspecified (ICD-10) Diabetes ?E11.9 - Type 2 diabetes mellitus without complications (ICD-10) DNR (do not resuscitate) ?Z66 - Do not resuscitate (ICD-10) Heartburn ?R12 - Heartburn (ICD-10) Hiatal hernia ?K44.9 - Diaphragmatic hernia without obstruction or gangrene (ICD-10) High cholesterol ?E78.00 - Pure hypercholesterolemia, unspecified (ICD-10) Hypertension ?I10 - Essential (primary) hypertension (ICD-10) Inguinal hernia ?K40.90 - Unilateral inguinal hernia, without obstruction or gangrene, not specified as recurrent (ICD-10) Obesity ?E66.9 - Obesity, unspecified (ICD-10) Osteoarthritis ?M19.90 - Unspecified osteoarthritis, unspecified site (ICD-10) Smoker ?F17.200 - Nicotine dependence, unspecified, uncomplicated (ICD-10) Upper back pain ?M54.9 - Dorsalgia, unspecified (ICD-10) Surgical History H/O tubal ligation ?Z98.51 - Tubal ligation status (ICD-10) H/O: hysterectomy ?Z90.710 - Acquired absence of both cervix and uterus (ICD-10) History of cholecystectomy ?Z90.49 - Acquired absence of other specified parts of digestive tract (ICD-10) Social History Smoking status: Current every day smoker Exam Narrative Exam Narrative: Gen.: Awake, alert, in no distress Head: Normocephalic, atraumatic ENT: Moist mucous membranes Respiratory: No respiratory distress, diminished lung sounds globally Cardio: Regular rate and rhythm Gastrointestinal: Abdomen is soft, nondistended and nontender to palpation Extremities: Moves extremities equally Psych: Normal mood and affect Neuro: No focal neuro deficit Skin: Warm, dry, intact Constitutional Vital Signs, click to edit/add: Last Vital Signs Temp 97.9 F 04/08/23 05:33 Pulse 104 H 04/08/23 06:00 Resp 20 04/08/23 05:33 BP 144/65 H 04/08/23 05:33 Pulse Ox 92 L 04/08/23 05:33 O2 Del Method Nasal Cannula 04/08/23 05:33 O2 Flow Rate 2 04/08/23 05:33 Course Vital Signs Vital signs: Vital Signs Temperature 98.0 F 04/05/23 18:07 Pulse Rate 108 H 04/05/23 18:07 Respiratory Rate 18 04/05/23 18:07 Blood Pressure 171/96 H 04/05/23 18:07 Pulse Oximetry 93 L 04/05/23 18:07 Oxygen Delivery Method Room Air 04/05/23 18:07 Temperature 97.9 F 04/08/23 05:33 Pulse Rate 104 H 04/08/23 06:00 Respiratory Rate 20 04/08/23 05:33 Blood Pressure 144/65 H 04/08/23 05:33 Pulse Oximetry 92 L 04/08/23 05:33 Oxygen Delivery Method Nasal Cannula 04/08/23 05:33 Oxygen Delivery Flow Rate 2 04/08/23 05:33 MDM - SOB/Dyspnea MDM Narrative Medical decision making narrative: lab studies within normal limits, patient with mild leukocytosis, normal d-dimer, normal troponin and BNP. She was hypoxic on room air and placed on nasal cannula on arrival. Her oxygen by nasal cannula was increased and she was borderline hypoxic on 2 L. Chest x-ray shows interstitial findings consistent with edema versus infiltrate and as the BNP is normal, we will treat for infiltrate with Levaquin. Respiratory panel is positive for rhinovirus. Blood cultures are pending. Discussed admission with Dr. gutierrez for hospitalist service and patient will be admitted to [facility] for observation with telemetry. Stable at time of admission. Medical Records Attestation: I reviewed the patient's medical records. Lab Data Attestation: I reviewed the patient's lab results. Labs: Lab Results 04/05/23 04/05/23 04/05/23 Range/Units 18:12 18:26 18:28 WBC 13.4 H (4.0-11.0) 10^3/uL RBC 3.81 L (4.20-5.40) 10^6/uL Hgb 11.3 L (12.0-16.0) g/dL Hct 34.5 L (36.0-48.0) % MCV 90.6 (81.0-99.0) fL MCH 29.7 (26.7-34.0) pg MCHC 32.8 (29.9-35.2) g/dL RDW 12.9 (11.0-15.0) % Plt Count 302 (150-450) 10^3/uL MPV 10.3 (9.5-13.5) fL Neut % (Auto) 71.9 (43.0-75.0) % Lymph % (Auto) 10.8 L (20.5-60.0) % Hendry % (Auto) 8.7 (1.7-12.0) % Eos % (Auto) 7.5 H (0.9-7.0) % Baso % (Auto) 0.4 (0.2-2.0) % Neut # (Auto) 9.7 H (1.4-6.5) 10^3/uL Lymph # (Auto) 1.4 (1.2-3.8) 10^3/uL Hendry # (Auto) 1.2 H (0.3-0.8) 10^3/uL Eos # (Auto) 1.0 H (0.0-0.7) 10^3/uL Baso # (Auto) 0.1 (0.0-0.1) 10^3/uL Abs Immat Gran (auto) 0.09 H (0.00-0.03) 10^3/uL Imm/Tot Granulo (auto) 0.7 H (0.0-0.5) % PT 12.2 H (9.0-11.6) sec INR 1.16 APTT 32.4 (22.3-36.2) sec D-Dimer 0.37 (<=0.59) mg/L FEU VBG pH 7.410 (7.330-7.430) VBG pCO2 46.3 (40.0-52.0) mmHg Sodium 137 (136-145) mmol/L Potassium 4.0 (3.5-5.1) mmol/L Chloride 100 (98-107) mmol/L Carbon Dioxide 29.1 (21.0-32.0) mmol/L Anion Gap 11.9 BUN 25.0 H (7.0-18.0) mg/dL Creatinine 1.17 H (0.55-1.02) mg/dL Est GFR ( Amer) 55 L (>=60) Est GFR (Non-Af Amer) 46 L (>=60) BUN/Creatinine Ratio 21.4 Glucose 124 H (74-106) mg/dL Lactate 1.3 (0.4-2.0) mmol/L Calcium 9.8 (8.5-10.1) mg/dL Total Bilirubin 0.2 (0.2-1.0) mg/dL AST 30 (15-37) U/L ALT 24 (14-59) U/L Alkaline Phosphatase 98 (46-116) U/L Troponin I High Sens 5.6 (4.0-51.3) pg/mL NT-Pro-B Natriuret Pep 344.0 (<=900.0) pg/mL Total Protein 7.8 (6.4-8.2) g/dL Albumin 2.7 L (3.4-5.0) g/dL Globulin 5.1 g/dL Albumin/Globulin Ratio 0.5 Procalcitonin 0.08 (0.00-0.50) ng/mL Adenovirus (PCR) Not detected (NOT DETECTE) C. pneumoniae DNA (PCR) Not detected (NOT DETECTE) Coronavirus Type OC43 Not detected (NOT DETECTE) Coronavirus Type HKU1 Not detected (NOT DETECTE) Coronavirus Type 229E Not detected (NOT DETECTE) Coronavirus Type NL63 Not detected (NOT DETECTE) Human Metapneumovir PCR Not detected (NOT DETECTE) M. pneumoniae (PCR) Not detected (NOT DETECTE) Parainfluenza PCR Not detected (NOT DETECTE) Parainfluenza 2 (PCR) Not detected (NOT DETECTE) Parainfluenza 3 (PCR) Not detected (NOT DETECTE) Parainfluenza 4 (PCR) Not detected (NOT DETECTE) RSV (RT-PCR) Not detected (NOT DETECTE) Entero/Rhino (PCR) Detected A (NOT DETECTE) SARS-CoV-2 (PCR) Not detected (NOT DETECTE) Bordetella pertussis (PCR) Not detected (NOT DETECTE) B parapertussis DNA PCR Not detected (NOT DETECTE) Influenza Type A (PCR) Not detected (NOT DETECTE) Influenza Type B (PCR) Not detected (NOT DETECTE) Imaging Data Chest x-ray: Attestation: I have reviewed the pertinent imaging results. Radiologist's impression: Procedure: XR chest 1V EXAM: XR chest 1V TECHNIQUE: Single AP view chest HISTORY: shortness of breath COMPARISON: None. FINDINGS: The heart is enlarged. Bilateral increased interstitial markings, left greater than right. Osseous structures are intact. IMPRESSION: Increased interstitial markings, left greater the right, question asymmetric edema versus atypical inflammatory or infectious interstitial process. Electronically authenticated by: DARWIN SUAREZ Date: 04/05/2023 20:15 ECG Data Attestation: I personally reviewed and interpreted this ECG as follows: (normal sinus rhythm at a rate of ninety-seven, no acute ST elevation or ectopy. EKG reviewed by attending physician) ECG interpretation date: 04/05/23 ECG interpretation time: 18:33 Discharge Plan Discharge Chief Complaint: Shortness of Breath/Dyspnea Clinical Impression: Shortness of breath, Hypoxia, Pneumonia Patient Disposition: Admitted as Observation Time of Disposition Decision: 20:50 Condition: Good Discharge Date/Time: 04/05/23 21:46
[2023-04-05] MEDS: 0.9 % SODIUM CHLORIDE 1,000 ML 999 ML IV (18:32)
[2023-04-05] MEDS: METHYLPREDNISOLONE SOD SUCC PF 125 MG/2 ML VIAL IVP (18:32)
--- NOTE | 2023-04-05 18:34 | PC.NURSE ---
STARTED o2 AT 2L FOR A PULSE OX OF 88-89%
[2023-04-05 18:49] LABS: Adenovirus NOT DETECTED (NOT DETECTE); Bordetella parapertussis NOT DETECTED (NOT DETECTE); Coronavirus 229E NOT DETECTED (NOT DETECTE); Coronavirus HKU1 NOT DETECTED (NOT DETECTE); Coronavirus NL63 NOT DETECTED (NOT DETECTE); Coronavirus OC43 NOT DETECTED (NOT DETECTE); Human Metapneumovirus NOT DETECTED (NOT DETECTE); Influenza A NOT DETECTED (NOT DETECTE); Influenza B NOT DETECTED (NOT DETECTE); Mycoplasma pneumoniae NOT DETECTED (NOT DETECTE); Parainfluenza Virus 1 NOT DETECTED (NOT DETECTE); Parainfluenza Virus 2 NOT DETECTED (NOT DETECTE); Parainfluenza Virus 3 NOT DETECTED (NOT DETECTE); Parainfluenza Virus 4 NOT DETECTED (NOT DETECTE); Respiratory Syncytial Virus NOT DETECTED (NOT DETECTE); SARS-CoV-2 NOT DETECTED (NOT DETECTE)
[2023-04-05 18:51] LABS: PCO2 VBG 46.3 mmHg (40.0-52.0)
[2023-04-05 18:54] LABS: Basophils Absolute Auto 0.1 10^3/uL (0.0-0.1); Basophils Percent Auto 0.4 % (0.2-2.0); Eosinophils Percent Auto 7.5 % (0.9-7.0); Hematocrit 34.5 % (36.0-48.0); Hemoglobin 11.3 g/dL (12.0-16.0); Immature Granulocytes Abs Auto 0.09 10^3/uL (0.00-0.03); Immature Granulocytes Pct Auto 0.7 % (0.0-0.5); Lymphocytes Absolute Auto 1.4 10^3/uL (1.2-3.8); Lymphocytes Percent Auto 10.8 % (20.5-60.0); Mean Corpuscular HGB Conc 32.8 g/dL (29.9-35.2); Mean Corpuscular Hemoglobin 29.7 pg (26.7-34.0); Mean Corpuscular Volume 90.6 fL (81.0-99.0); Mean Platelet Volume 10.3 fL (9.5-13.5); Monocytes Absolute Auto 1.2 10^3/uL (0.3-0.8); Monocytes Percent Auto 8.7 % (1.7-12.0); Neutrophils Absolute Auto 9.7 10^3/uL (1.4-6.5); Neutrophils Percent Auto 71.9 % (43.0-75.0); Platelet Count 302 10^3/uL (150-450); Red Blood Count 3.81 10^6/uL (4.20-5.40); Red Cell Distribution Width 12.9 % (11.0-15.0); White Blood Count 13.4 10^3/uL (4.0-11.0)
--- NOTE | 2023-04-05 18:57 | XR_ITS ---
The [address] [address] Patient Name: TUNDE AREVALO MRN: [id number] date: 1950 Sex: F Assigned Patient Location: ER Current Patient Location: ER Accession/Order Number: [id number] Exam Date: 04/05/2023 19:20 Report Date: 04/05/2023 20:15 At the request of: VERITO ALVAREZ Procedure: XR chest 1V EXAM: XR chest 1V TECHNIQUE: Single AP view chest HISTORY: shortness of breath COMPARISON: None. FINDINGS: The heart is enlarged. Bilateral increased interstitial markings, left greater than right. Osseous structures are intact. XR/XR chest 1V IMPRESSION: Increased interstitial markings, left greater the right, question asymmetric edema versus atypical inflammatory or infectious interstitial process. Electronically authenticated by: DARWIN SUAREZ Date: 04/05/2023 20:15
[2023-04-05] MEDS: ALBUTEROL SULFATE 2.5 MG/3 ML VIAL NEB IH (18:59)
[2023-04-05 19:08] LABS: INR 1.16; Partial Thromboplastin Time 32.4 sec (22.3-36.2); Prothrombin Time 12.2 sec (9.0-11.6)
[2023-04-05 19:11] LABS: Lactate/Lactic Acid 1.3 mmol/L (0.4-2.0)
[2023-04-05 19:24] LABS: Alanine Aminotransferase 24 U/L (14-59); Albumin Globulin Ratio 0.5; Albumin Level 2.7 g/dL (3.4-5.0); Alkaline Phosphatase 98 U/L (46-116); Anion Gap 11.9; Aspartate Amino Transferase 30 U/L (15-37); BUN Creatinine Ratio 21.4; Bilirubin Total 0.2 mg/dL (0.2-1.0); Calcium 9.8 mg/dL (8.5-10.1); Carbon Dioxide 29.1 mmol/L (21.0-32.0); Chloride 100 mmol/L (98-107); Estimated GFR (African America 55 (>=60); Estimated GFR (Non-African Ame 46 (>=60); Globulin 5.1 g/dL; Glucose 124 mg/dL (74-106); Sodium 137 mmol/L (136-145); Total Protein 7.8 g/dL (6.4-8.2)
[2023-04-05 19:31] LABS: Troponin I High Sensitivity 5.6 pg/mL (4.0-51.3)
[2023-04-05 19:44] LABS: Human Rhinovirus/Enterovirus DETECTED (NOT DETECTE)
[2023-04-05 20:39] LABS: D Dimer 0.37 mg/L FEU (<=0.59)
[2023-04-05] MEDS: LEVOFLOXACIN IN DEXTROSE 5 % 750 MG/150 ML IV.SOLN 100 MG IV (20:48)
--- NOTE | 2023-04-05 23:11 | W.PM.TELEPN ---
Progress Note: Subjective Subjective Interval history: CC: Cough shortness of breath HPI: This is a 72 years old female with multiple comorbidities including diabetes, hypertension, dyslipidemia, chronic pain syndrome and psychiatric illness who presents with above complaints. Patient lives in assisted living facility. She stating that some of the resident not been feeling well lately. Patient stating that she developed cough, shortness of breath and some chest discomfort. She took oral antibiotics as prescribed by her doctor without much relief. Came to emergency room for further evaluation. Patient found to be hypoxic. Responded to supplemental oxygen. Chest x-ray suggestive of pneumonia. Patient tested positive for rhinovirus. Exam Narrative Exam Narrative: ROS: 1.General: no fever, chills, not in distress 2.HEENT: no HARVEY, no blurry vision, no swallow problems, no nasal congestion, no sore throat 3.Pulmonary: See above 4.CVS: no CP, no palpitations, no OLIVER, no SOB, no intermittent claudication 5.GI: no nausea, vomiting or diarrhea, no abdominal pain, no constipation, no hematemesis or hematochezia 6.: no renal colic, no hematuria, urinary frequency or urgency 7.Extremities: no edema 8.Neurological: no dizziness, vertigo, double or blurry vision, no no focal weakness, no paresthesia, no swallow or speech problems 9.Musculosceletal: no joint pains, no joint swelling, no back pain 10.Dermatological: no skin rashes, no lesions, no pruritus 11.Hematological: no bleeding, no hx/o clots 12.Endocrinological: no heat/cold intolerance, no hx/o diabetes 13.Psychiatric: no suicidal or homicidal thoughts Physical Exam: Not in distress, pleasant, lucid, cooperative, overweight Head - atraumatic, eyes - pupils equal, round, reactive to light, extra ocular movement intact, MMM Neck - supple, thyroid not enlarged, LN not palpated Lungs -coarse breath sounds bilaterally CVS - heart sounds S1, S2, no additional murmurs gallop, regular rate and rhythm Gastrointestinal?abdomen is soft, non-tender, non-distended, no organomegaly, positive bowel sounds Extremities no clubbing, cyanosis or edema Neurological?cranial nerve II?XII grossly intact, no meningeal signs, no cerebellar signs, no sensory deficit Musculoskeletal - e joints, no effusions, ROM preserved Dermatological - the skin dry, warm, no rashes Psychiatric?patient is AAO X3, patient has normal affect Constitutional Vital Signs, click to edit/add: Last Vital Signs Temp 97.8 F 04/05/23 21:35 Pulse 94 H 04/05/23 22:20 Resp 22 04/05/23 21:35 BP 171/76 H 04/05/23 21:35 Pulse Ox 90 L 04/05/23 21:43 O2 Del Method Nasal Cannula 04/05/23 21:43 O2 Flow Rate 3 04/05/23 21:43 Progress Note: Objective Labs Labs: Short CBC 04/05/23 Range/Units 18:28 WBC 13.4 H (4.0-11.0) 10^3/uL Hgb 11.3 L (12.0-16.0) g/dL Hct 34.5 L (36.0-48.0) % Plt Count 302 (150-450) 10^3/uL BMP 04/05/23 18:28 Sodium 137 Potassium 4.0 Chloride 100 Carbon Dioxide 29.1 BUN 25.0 H Creatinine 1.17 H Glucose 124 H Calcium 9.8 Liver Function 04/05/23 Range/Units 18:28 Total Bilirubin 0.2 (0.2-1.0) mg/dL AST 30 (15-37) U/L ALT 24 (14-59) U/L Alkaline Phosphatase 98 (46-116) U/L Albumin 2.7 L (3.4-5.0) g/dL Progress Note: A&P Assessment and Plan (1) Basal pneumonia: Assessment and Plan: Started on empiric, broad-spectrum antibiotics Follow-up results of the cultures Oxygen supplementation as needed (2) Chronic pain syndrome: Assessment and Plan: Resume home medications, adjust as needed (3) Obesity (BMI 30.0-34.9): Assessment and Plan: Defer to outpatient management (4) Diabetes: Assessment and Plan: Patient started on ADA diet Continue with Accu-Cheks Continue coverage with long-acting insulin as well as insulin sliding scale (5) High cholesterol: Assessment and Plan: Continue home dose of statin (6) Hypertension: Assessment and Plan: Verify and resume home regimen. I am holding patient's hydrochlorothiazide since I started him gentle, judicious IV fluid resuscitation Plan END: As the provider for the telehealth service, I attest that I introduced myself to the patient, provided my credentials, disclosed by location and determined that based on a review of the patient's chart and discussion with members of the patient's treatment team, telemedicine via real-time, 2 way, and interactive audio and video platform is an appropriate and effective means of providing the service. ?The patient and I mutually agree this visit is appropriate for telemedicine. ?The virtual encounter was taken place from? [place], [place]. ?The encounter took approximately 35 minutes. ?The nurse was present during the entire time and I was able to move the stethoscope in appropriate directions. ?The patient was evaluated at the Hospital ? Portions of this note may be dictated using [employer] display technologies voice recognition software. Variances in spelling and vocabulary are possible and unintentional. Not all errors may be caught and/or corrected. Please notify the author if any discrepancies are noted and/or if the meaning of any statement is unclear.? ? Patient verbally consented for treatment via video visit with patient currently located at the [facility] and provider located in [place]. Telemedicine Attestation Telemedicine Attestation I conducted this encounter from [[place]] via secure live, [id number] video conference with the patient, located at [facility] with [basal pneumonia]. Prior to the interview, the risks and benefits of telemedicine were discussed with the patient and verbal consent was obtained.
[2023-04-05] MEDS: 0.9 % SODIUM CHLORIDE 1,000 ML 75 ML IV (23:58)
[2023-04-06] VITALS (90 sets, daily range): BP systolic 117–186; BP diastolic 51–84; PULSE 76–115; RESP 2–25; TEMP 36.5–36.8; O2SAT 64–106
[2023-04-06] MEDS: INSULIN DETEMIR 300 UNIT/3 ML INSULN.PEN 10 UNIT SUBQ (00:01)
[2023-04-06] MEDS: HYDROCODONE/ACET 5-325 MG TABLET 1 TAB PO ×4 (00:02→16:19)
[2023-04-06] MEDS: AMITRIPTYLINE HCL 25 MG TABLET PO ×2 (00:02→20:03)
[2023-04-06] MEDS: AZITHROMYCIN 500 MG in 0.9 % SODIUM CHLORIDE 250 ML 250 MG IV (00:19)
[2023-04-06] MEDS: MAGNESIUM OXIDE 400 MG TABLET PO ×4 (00:22→20:03)
[2023-04-06] MEDS: HYDRALAZINE HCL 25 MG TABLET PO ×3 (00:23→20:03)
[2023-04-06] MEDS: ARIPIPRAZOLE 15 MG TABLET PO ×2 (00:24→20:08)
[2023-04-06] MEDS: GABAPENTIN 300 MG CAPSULE 600 MG PO ×4 (00:26→20:03)
[2023-04-06] MEDS: TRAZODONE HCL 50 MG TABLET 100 MG PO (00:26)
[2023-04-06] MEDS: ATORVASTATIN CALCIUM 20 MG TABLET PO ×2 (00:26→20:03)
[2023-04-06] MEDS: METHYLPREDNISOLONE SOD SUCC PF 40 MG/ML VIAL IVP ×3 (02:16→18:31)
[2023-04-06] MEDS: IPRATROPIUM/ALBUTEROL SULFATE 3 ML AMPUL.NEB IH ×4 (04:59→22:24)
[2023-04-06 05:02] LABS: Basophils Percent Auto 0.1 % (0.2-2.0); Eosinophils Percent Auto 0.2 % (0.9-7.0); Hemoglobin 10.3 g/dL (12.0-16.0); Immature Granulocytes Abs Auto 0.11 10^3/uL (0.00-0.03); Immature Granulocytes Pct Auto 0.9 % (0.0-0.5); Lymphocytes Absolute Auto 0.6 10^3/uL (1.2-3.8); Lymphocytes Percent Auto 5.1 % (20.5-60.0); Mean Corpuscular HGB Conc 33.2 g/dL (29.9-35.2); Mean Corpuscular Hemoglobin 29.9 pg (26.7-34.0); Mean Corpuscular Volume 89.9 fL (81.0-99.0); Mean Platelet Volume 9.6 fL (9.5-13.5); Monocytes Absolute Auto 0.3 10^3/uL (0.3-0.8); Monocytes Percent Auto 2.7 % (1.7-12.0); Neutrophils Absolute Auto 10.6 10^3/uL (1.4-6.5); Platelet Count 278 10^3/uL (150-450); Red Blood Count 3.45 10^6/uL (4.20-5.40); Red Cell Distribution Width 12.7 % (11.0-15.0); White Blood Count 11.7 10^3/uL (4.0-11.0)
[2023-04-06 06:00] LABS: Anion Gap 11.3; BUN Creatinine Ratio 25.5; Calcium 9.2 mg/dL (8.5-10.1); Carbon Dioxide 26.9 mmol/L (21.0-32.0); Chloride 102 mmol/L (98-107); Estimated GFR (African America >60 (>=60); Estimated GFR (Non-African Ame 59 (>=60); Glucose 196 mg/dL (74-106); Potassium 4.2 mmol/L (3.5-5.1); Sodium 136 mmol/L (136-145); Troponin I High Sensitivity 5.4 pg/mL (4.0-51.3)
[2023-04-06 07:41] LABS: Glucometer 252 mg/dL (74-106)
[2023-04-06] MEDS: HYDRALAZINE HCL 20 MG/ML VIAL 10 MG IVP (07:58)
[2023-04-06] MEDS: INSULIN ASPART 300 UNIT/3 ML PEN SUBQ ×4 (08:27→21:39)
[2023-04-06] MEDS: FLUTICASONE PROPIONATE 50 MCG NASAL SPRAY 2 SPRAY NS (08:28)
[2023-04-06] MEDS: CEFTRIAXONE 1,000 MG in 0.9 % SODIUM CHLORIDE 50 ML 100 MG IV (08:28)
[2023-04-06] MEDS: L. ACIDOPHILUS/L.BULGARICUS 1 PACKET GRAN.PACK PO ×2 (08:29→20:03)
[2023-04-06] MEDS: LACTOSE -REDUCED (ENSURE ORIGINAL 237 ML LIQUID) PO ×2 (08:29→20:03)
[2023-04-06] MEDS: OMEPRAZOLE 40 MG CAPSULE.DR PO (08:30)
[2023-04-06] MEDS: ASPIRIN 81 MG TABLET.DR PO (08:30)
[2023-04-06] MEDS: FERROUS SULFATE 325 MG TABLET PO ×2 (08:30→20:03)
[2023-04-06] MEDS: FLUOXETINE HCL 10 MG CAPSULE PO (08:30)
[2023-04-06] MEDS: LOSARTAN POTASSIUM 50 MG TABLET 100 MG PO (08:30)
[2023-04-06] MEDS: AMLODIPINE BESYLATE 5 MG TABLET 10 MG PO (08:30)
[2023-04-06 09:03] LABS: PROCALCITONIN 0.08 ng/mL (0.00-0.50)
--- NOTE | 2023-04-06 10:09 | P.HP_ITS ---
H&P: HPI History of Present Illness Chief complaint: Shortness of breath Narrative: Patient has been being treated as an outpatient for bronchitis with a Z-Michael, had increasing shortness of breath and presented to the emergency room. In the emergency room found to have acute bilateral lower lobe pneumonia with s ignificant hypoxia. O2 saturation 90% on 3 L. Also significant tachycardia and respiratory distress. Patient was admitted to the hospital for further work-up and treatment. Review of Systems ROS Constitutional Denies: fever Eyes Denies: change in vision Ears, nose, mouth, and throat Denies: throat pain Cardiovascular Denies: chest pain Respiratory Reports: shortness of breath and cough Gastrointestinal Denies: abdominal pain Genitourinary Denies: painful urination Musculoskeletal Reports: back pain Neurological Denies: headache Psychiatric Denies: anxiety Endocrine Denies: excessive urination [facility] Medical History (Updated 04/05/23 @ 23:14 by Linden Gutierrez MD) Anxiety ?F41.9 - Anxiety disorder, unspecified (ICD-10) Depression ?F32.A - Depression, unspecified (ICD-10) Diabetes ?E11.9 - Type 2 diabetes mellitus without complications (ICD-10) DNR (do not resuscitate) ?Z66 - Do not resuscitate (ICD-10) Heartburn ?R12 - Heartburn (ICD-10) Hiatal hernia ?K44.9 - Diaphragmatic hernia without obstruction or gangrene (ICD-10) High cholesterol ?E78.00 - Pure hypercholesterolemia, unspecified (ICD-10) Hypertension ?I10 - Essential (primary) hypertension (ICD-10) Inguinal hernia ?K40.90 - Unilateral inguinal hernia, without obstruction or gangrene, not specified as recurrent (ICD-10) Obesity ?E66.9 - Obesity, unspecified (ICD-10) Osteoarthritis ?M19.90 - Unspecified osteoarthritis, unspecified site (ICD-10) Smoker ?F17.200 - Nicotine dependence, unspecified, uncomplicated (ICD-10) Upper back pain ?M54.9 - Dorsalgia, unspecified (ICD-10) Surgical History H/O tubal ligation ?Z98.51 - Tubal ligation status (ICD-10) H/O: hysterectomy ?Z90.710 - Acquired absence of both cervix and uterus (ICD-10) History of cholecystectomy ?Z90.49 - Acquired absence of other specified parts of digestive tract (ICD- 10) Social History Smoking status: Current every day smoker Meds Home Medications and Allergies Home Medications Medication Instructions Recorded Confirmed Type amitriptyline 25 mg tablet 25 mg PO BEDTIME 10/19/22 04/06/23 History amlodipine 10 mg tablet 10 mg PO QDAY 10/19/22 04/05/23 History aspirin 81 mg tablet,delayed 81 mg PO QDAY 10/19/22 04/05/23 History release (Adult Aspirin Regimen) fluoxetine 10 mg tablet 10 mg PO QDAY 10/19/22 04/05/23 History gabapentin 600 mg tablet 600 mg PO TID 10/19/22 04/05/23 History glucagon 3 mg/actuation nasal 3 mg intranasal .every 6 PRN 10/19/22 04/05/23 History spray (Baqsimi) hypoglycemia hydrochlorothiazide 25 mg tablet 25 mg PO QDAY 10/19/22 04/05/23 History hydrocodone 5 mg-acetaminophen 325 1 tab PO BID PRN pain 10/19/22 04/05/23 History mg tablet insulin degludec 100 unit/mL (3 40 unit subcut .at supp 10/19/22 04/05/23 History mL) subcutaneous pen (Tresiba FlexTouch U-100 insulin) insulin lispro 100 unit/mL 1 sliding scale dose subcut 10/19/22 04/05/23 History subcutaneous solution (Humalog USEASDIRECTD U-100 Insulin) losartan 100 mg tablet 100 mg PO QDAY 10/19/22 04/05/23 History metformin 500 mg tablet 500 mg PO BID 10/19/22 04/05/23 History pantoprazole 40 mg tablet,delayed 40 mg PO QDAY 10/19/22 04/05/23 History release pravastatin 20 mg tablet 20 mg PO BEDTIME 10/19/22 04/06/23 History sucralfate 1 gram tablet 1 g PO BEDTIME 10/19/22 04/06/23 History aripiprazole 15 mg tablet 15 mg PO BEDTIME 04/05/23 04/06/23 History fluticasone propionate 50 2 spray intranasal QAM 04/05/23 04/05/23 History mcg/actuation nasal spray,suspension hydralazine 25 mg tablet 25 mg PO Q12H 04/05/23 04/05/23 History magnesium oxide 400 mg (241.3 mg 400 mg PO TID 04/05/23 04/05/23 History magnesium) tablet vit D3 5000 125 mcg PO DAILY 04/05/23 04/05/23 History alprazolam 0.5 mg tablet (Xanax) 0.5 mg PO BID PRN anxiety 04/06/23 04/06/23 History baclofen 5 mg tablet 5 mg PO TID PRN muscle spasm 04/06/23 04/06/23 History camphor-menthol 0.2 %-3.5 % 1 applic topical BID PRN pain 04/06/23 04/06/23 History topical gel dulaglutide 4.5 mg/0.5 mL 4.5 mg subcut QWEEK 04/06/23 04/06/23 History subcutaneous pen injector ([facility]) fenofibrate 160 mg tablet 160 mg PO DAILY 04/06/23 04/06/23 History ondansetron HCl 4 mg tablet 4 mg PO Q6H PRN nausea and vomiting 04/06/23 04/06/23 History trazodone 50 mg tablet 50 mg PO BEDTIME 04/06/23 04/06/23 History Allergies Allergy/AdvReac Type Severity Reaction Status Date / Time haloperidol [From Haldol] Allergy Unknown Verified 11/27/22 09:53 ebenezer Allergy Unknown Verified 11/27/22 09:53 Penicillins Allergy Unknown Verified 11/27/22 09:53 topiramate [From Topamax] Allergy Unknown Verified 11/27/22 09:53 Exam Constitutional Vital Signs, click to edit/add: Last Vital Signs Temp 97.7 F 04/06/23 04:41 Pulse 95 H 04/06/23 10:00 Resp 18 04/06/23 04:59 BP 185/67 H 04/06/23 09:14 Pulse Ox 106 H 04/06/23 10:00 O2 Del Method Nasal Cannula 04/06/23 04:59 O2 Flow Rate 2 04/06/23 04:59 Documenting provider has reviewed patient's vital signs: yes Common normals: no apparent distress HENMT Common normals: moist oral mucous membranes Chest Common normals: inspection of chest normal Respiratory Common normals: normal respiratory effort and no retractions Auscultation: rhonchi; no egophony Cardio Common normals: regular rate, regular rhythm and no murmurs GI Common normals: Normal to inspection, nondistended, normoactive bowel sounds present Extremity Common normals: normal to inspection, normal capillary refill and no clubbing, cyanosis or edema Results Labs Labs: Short CBC 04/05/23 04/06/23 Range/Units 18:28 04:39 WBC 13.4 H 11.7 H (4.0-11.0) 10^3/uL Hgb 11.3 L 10.3 L (12.0-16.0) g/dL Hct 34.5 L 31.0 L (36.0-48.0) % Plt Count 302 278 (150-450) 10^3/uL BMP 04/05/23 04/06/23 18:28 04:39 Sodium 137 136 Potassium 4.0 4.2 Chloride 100 102 Carbon Dioxide 29.1 26.9 BUN 25.0 H 24.0 H Creatinine 1.17 H 0.94 Glucose 124 H 196 H Calcium 9.8 9.2 Liver Function 04/05/23 Range/Units 18:28 Total Bilirubin 0.2 (0.2-1.0) mg/dL AST 30 (15-37) U/L ALT 24 (14-59) U/L Alkaline Phosphatase 98 (46-116) U/L Albumin 2.7 L (3.4-5.0) g/dL ABG ABG results: 04/05/23 18:28 VBG pH 7.410 VBG pCO2 46.3 Assessment and Plan Assessment and Plan (1) Basal pneumonia: (2) Chronic pain syndrome: (3) Obesity (BMI 30.0-34.9): (4) Diabetes: (5) High cholesterol: (6) Hypertension: Plan Acute hypoxic respiratory failure with O2 saturation of 90% on 3 L of supplemental oxygen. Patient does not wear supplemental oxygen at home, also significant respiratory distress and tachycardia uncontrolled hypertension, leukocytosis on admission as well. This is all secondary to bilateral lower lobe pneumonia with failed outpatient treatment with oral Zithromax. Started on IV Zithromax here, with the failure as an outpatient we will change that to levofloxacin. With significant pneumonia and hypoxia and patient had a resident care facility will add Rocephin. Check sputum culture. Continue with aerosol treatments. Hypertension-continue with home medications, monitor here. Uncontrolled on admission but improved this morning Leukocytosis secondary to above-monitor daily-improved Acute elevation in BUN and creatinine secondary to dehydration-improved this morning. We will cut back on IV fluids, hold off on diuretics currently. No peripheral edema. Diabetic peripheral xhfigthdpg-rkjaefj-wxljkqrpb diabetes mellitus-insulin sliding scale plus home medications Generalized anxiety disorder-continue with home medications Chronic low back pain-change oral pain medications to 4 times daily as needed. Likely exacerbation of back pain secondary to Hospitalization Hypomagnesemia-continue supplementation GERD-continue with Carafate Morbid obesity-diet management With the degree of hypoxia, 90% on 3 L, patient does not have home oxygen- patient will require 2 to 3-day hospital stay so change patient to inpatient status with intensity of service and severity of illness as documented above
[2023-04-06] MEDS: BUDESONIDE 0.5 MG/2 ML AMPULE NEB IH ×2 (11:00→22:24)
[2023-04-06 11:37] LABS: Glucometer 312 mg/dL (74-106)
[2023-04-06] MEDS: ACETAMINOPHEN 500 MG TABLET 1000 MG PO (14:18)
[2023-04-06 16:28] LABS: Glucometer 410 mg/dL (74-106)
--- NOTE | 2023-04-06 16:39 | RESP.RT ---
SpO2 89%; increased to 2 L NC
[2023-04-06 19:36] LABS: Glucometer 330 mg/dL (74-106)
[2023-04-06] MEDS: LEVOFLOXACIN IN DEXTROSE 5 % 750 MG/150 ML IV.SOLN 100 MG IV (20:02)
[2023-04-06] MEDS: FENOFIBRATE 54 MG TABLET 162 MG PO (20:08)
[2023-04-06] MEDS: TRAZODONE HCL 50 MG TABLET PO (20:08)
[2023-04-06] MEDS: SUCRALFATE 1 GM TABLET PO (20:08)
[2023-04-06] MEDS: METFORMIN HCL 500 MG TABLET PO (21:29)
--- NOTE | 2023-04-06 23:54 | RESP.RT ---
increased to 3 lpm
--- NOTE | 2023-04-06 23:55 | RESP.RT ---
increased to 3 lpm
[2023-04-07] VITALS (19 sets, daily range): BP systolic 144–158; BP diastolic 65–83; PULSE 93–113; RESP 18–22; TEMP 36.6–37; O2SAT 90–94
[2023-04-07] MEDS: METHYLPREDNISOLONE SOD SUCC PF 40 MG/ML VIAL IVP ×2 (04:30→09:11)
[2023-04-07] MEDS: GABAPENTIN 300 MG CAPSULE 600 MG PO ×3 (04:31→21:26)
[2023-04-07] MEDS: MAGNESIUM OXIDE 400 MG TABLET PO ×3 (04:31→21:26)
[2023-04-07] MEDS: HYDROCODONE/ACET 5-325 MG TABLET 1 TAB PO ×3 (04:31→21:27)
[2023-04-07 04:52] LABS: Basophils Percent Auto 0.1 % (0.2-2.0); Eosinophils Percent Auto 0.1 % (0.9-7.0); Hematocrit 30.9 % (36.0-48.0); Hemoglobin 10.1 g/dL (12.0-16.0); Immature Granulocytes Abs Auto 0.17 10^3/uL (0.00-0.03); Lymphocytes Absolute Auto 0.8 10^3/uL (1.2-3.8); Lymphocytes Percent Auto 4.2 % (20.5-60.0); Mean Corpuscular HGB Conc 32.7 g/dL (29.9-35.2); Mean Corpuscular Hemoglobin 29.9 pg (26.7-34.0); Mean Corpuscular Volume 91.4 fL (81.0-99.0); Mean Platelet Volume 9.9 fL (9.5-13.5); Monocytes Percent Auto 5.6 % (1.7-12.0); Neutrophils Absolute Auto 15.9 10^3/uL (1.4-6.5); Platelet Count 349 10^3/uL (150-450); Red Blood Count 3.38 10^6/uL (4.20-5.40); Red Cell Distribution Width 12.9 % (11.0-15.0); White Blood Count 17.8 10^3/uL (4.0-11.0)
[2023-04-07 05:19] LABS: Anion Gap 9.5; Calcium 9.9 mg/dL (8.5-10.1); Carbon Dioxide 29.3 mmol/L (21.0-32.0); Chloride 103 mmol/L (98-107); Estimated GFR (African America 50 (>=60); Estimated GFR (Non-African Ame 42 (>=60); Glucose 266 mg/dL (74-106); Magnesium 1.9 mg/dL (1.8-2.4); Potassium 4.8 mmol/L (3.5-5.1); Sodium 137 mmol/L (136-145)
[2023-04-07] MEDS: IPRATROPIUM/ALBUTEROL SULFATE 3 ML AMPUL.NEB IH ×4 (05:33→20:14)
--- NOTE | 2023-04-07 06:27 | RESP.RT ---
Titrate to 2 lpm
[2023-04-07] MEDS: L. ACIDOPHILUS/L.BULGARICUS 1 PACKET GRAN.PACK PO ×2 (09:09→20:27)
[2023-04-07] MEDS: LOSARTAN POTASSIUM 50 MG TABLET 100 MG PO (09:10)
[2023-04-07] MEDS: ASPIRIN 81 MG TABLET.DR PO (09:10)
[2023-04-07] MEDS: METFORMIN HCL 500 MG TABLET PO ×2 (09:10→20:27)
[2023-04-07] MEDS: OMEPRAZOLE 40 MG CAPSULE.DR PO (09:10)
[2023-04-07] MEDS: BACLOFEN 10 MG TABLET 5 MG PO ×2 (09:10→18:51)
[2023-04-07] MEDS: HYDRALAZINE HCL 25 MG TABLET PO ×2 (09:10→20:27)
[2023-04-07] MEDS: LACTOSE -REDUCED (ENSURE ORIGINAL 237 ML LIQUID) PO ×2 (09:10→20:27)
[2023-04-07] MEDS: AMLODIPINE BESYLATE 5 MG TABLET 10 MG PO (09:10)
[2023-04-07] MEDS: FERROUS SULFATE 325 MG TABLET PO ×2 (09:10→20:27)
[2023-04-07] MEDS: BENZONATATE 100 MG CAPSULE 200 MG PO ×2 (09:10→17:24)
[2023-04-07] MEDS: CHOLECALCIFEROL (VITAMIN D3) 125 MCG/5000 UNIT TABLET PO (09:10)
[2023-04-07] MEDS: FLUOXETINE HCL 10 MG CAPSULE PO (09:10)
[2023-04-07] MEDS: FLUTICASONE PROPIONATE 50 MCG NASAL SPRAY 2 SPRAY NS (09:11)
[2023-04-07] MEDS: INSULIN ASPART 300 UNIT/3 ML PEN SUBQ ×4 (09:11→21:28)
[2023-04-07] MEDS: BUDESONIDE 0.5 MG/2 ML AMPULE NEB IH ×2 (10:43→20:14)
--- NOTE | 2023-04-07 10:48 | P.PN_ITS ---
Progress Note: Subjective Subjective Interval history: Patient states breathing this was somewhat improved today. Unable to be weaned off of supplemental oxygen. Again she does not wear supplemental oxygen at home Exam Constitutional Vital Signs, click to edit/add: Last Vital Signs Temp 98.6 F 04/07/23 04:38 Pulse 102 H 04/07/23 09:55 Resp 18 04/07/23 05:33 BP 146/83 H 04/07/23 09:18 Pulse Ox 93 L 04/07/23 10:44 O2 Del Method Nasal Cannula 04/07/23 10:44 O2 Flow Rate 2 04/07/23 10:44 Documenting provider has reviewed patient's vital signs: yes Common normals: no apparent distress HENMT Common normals: moist oral mucous membranes Chest Common normals: inspection of chest normal Respiratory Common normals: normal respiratory effort and no retractions Auscultation: rhonchi; no egophony Cardio Common normals: regular rate, regular rhythm and no murmurs GI Common normals: Normal to inspection, nondistended, normoactive bowel sounds present Extremity Common normals: normal to inspection, normal capillary refill and no clubbing, cyanosis or edema Progress Note: Objective Labs Labs: Short CBC 04/07/23 Range/Units 04:16 WBC 17.8 H (4.0-11.0) 10^3/uL Hgb 10.1 L (12.0-16.0) g/dL Hct 30.9 L (36.0-48.0) % Plt Count 349 (150-450) 10^3/uL BMP 04/07/23 04:16 Sodium 137 Potassium 4.8 Chloride 103 Carbon Dioxide 29.3 BUN 33.0 H Creatinine 1.27 H Glucose 266 H Calcium 9.9 Progress Note: A&P Assessment and Plan (1) Basal pneumonia: (2) Chronic pain syndrome: (3) Obesity (BMI 30.0-34.9): (4) Diabetes: (5) High cholesterol: (6) Hypertension: Plan Acute hypoxic respiratory failure with O2 saturation of 90% on 3 L of supplemental oxygen. Patient does not wear supplemental oxygen at home, also significant respiratory distress and tachycardia uncontrolled hypertension, leukocytosis on admission as well. This is all secondary to bilateral lower lobe pneumonia with failed outpatient treatment with oral Zithromax. Continue with antibiotics that were adjusted yesterday. Check on CTA based on lack of improvement over the last 24 hours. Consider pulmonary consultation Hypertension-continue with home medications, monitor here. Uncontrolled on admission but improved this morning Leukocytosis secondary to above-monitor daily-improved Acute elevation in BUN and creatinine secondary to dehydration-deteriorated again today. This is likely secondary to the significant hyperglycemia. We will give fluid bolus today. Diabetic peripheral jgmhtiturc-sicokyh-lkwikasad diabetes mellitus-insulin sliding scale plus home medications-need to adjust insulin sliding scale today, cutting back on steroids may assist that as well. Generalized anxiety disorder-continue with home medications Chronic low back pain-change oral pain medications to 4 times daily as needed. Likely exacerbation of back pain secondary to Hospitalization Hypomagnesemia-continue supplementation GERD-continue with Carafate Morbid obesity-diet management With the degree of hypoxia, 90% on 3 L, patient does not have home oxygen- patient will require 2 to 3-day hospital stay so change patient to inpatient status with intensity of service and severity of illness as documented above
--- NOTE | 2023-04-07 10:50 | CT_ITS ---
[address] [address] Patient Name: TUNDE AREVALO MRN: [id number] date: 1950 Sex: F Assigned Patient Location: [place] Current Patient Location: Accession/Order Number: [id number] Exam Date: 04/07/2023 13:15 Report Date: 04/07/2023 15:24 At the request of: ERNIE GUERRERO Procedure: CT angio chest EXAM: CT angio chest HISTORY: acute hypoxia COMPARISON: XR chest 04/05/2023 TECHNIQUE: Thin section transaxial slices were acquired through the chest with intravenous contrast per PE protocol. Coronal and sagittal reconstructed images were reviewed. FINDINGS: There is some breathing motion artifact which is contributing to image degradation . PULMONARY ARTERIES: There is good opacification of the pulmonary vasculature. No pulmonary arterial filling defects are present. VASCULATURE: No aneurysm. There are moderate calcified plaques with thrombotic deposits in the thoracic aorta. There is tortuosity of descending thoracic aorta LUNGS/AIRWAYS: There are extensive multifocal patchy groundglass opacities throughout bilateral lungs, left more than right. The central airways are patent. PLEURAL CAVITY: Bilateral trace pleural effusion. No pneumothorax. HEART/PERICARDIUM: The heart is normal in size. No pericardial effusion. There are multivessel moderate coronary artery calcifications MEDIASTINAL/HILAR LYMPH NODES: No pathologically enlarged lymph nodes. CHEST WALL/AXILLA/LOWER NECK: Normal. VISUALIZED UPPER ABDOMEN: No acute abnormality. Status post cholecystectomy. Incidental note of interposed colonic loops between the liver and right hemidiaphragm. Diffuse hepatic steatosis. BONES: No acute process.. CT/CT angio chest IMPRESSION: 1. Within the limitation of breathing motion artifact, no evidence of pulmonary embolism identified. 2. Multifocal patchy groundglass opacity throughout bilateral lungs, left more than right. Bilateral trace pleural effusion. Findings are consistent with multifocal atypical or viral pneumonia. Recommend follow-up to document resolution. 3. Multivessel coronary atherosclerosis. Electronically authenticated by: GOLD OWENS Date: 04/07/2023 15:24
[2023-04-07 12:00] LABS: Glucometer 295 mg/dL (74-106)
[2023-04-07] MEDS: 0.9 % SODIUM CHLORIDE 1,000 ML 1000 ML IV (12:08)
[2023-04-07] MEDS: PIPERACILLIN SODIUM/TAZOBACTAM 3.375 GM in 0.9 % SODIUM CHLORIDE 50 ML IV ×2 (12:09→18:50)
[2023-04-07] MEDS: GUAIFENESIN 200 MG/10 ML LIQUID 100 MG PO (15:22)
[2023-04-07 16:21] LABS: Glucometer 296 mg/dL (74-106)
--- NOTE | 2023-04-07 17:12 | RESP.RT ---
TREATMENT GIVEN BY rn
[2023-04-07 20:37] LABS: Glucometer 262 mg/dL (74-106)
[2023-04-07] MEDS: AMITRIPTYLINE HCL 25 MG TABLET PO (21:26)
[2023-04-07] MEDS: ARIPIPRAZOLE 15 MG TABLET PO (21:26)
[2023-04-07] MEDS: FENOFIBRATE 54 MG TABLET 162 MG PO (21:26)
[2023-04-07] MEDS: ATORVASTATIN CALCIUM 20 MG TABLET PO (21:27)
[2023-04-07] MEDS: TRAZODONE HCL 50 MG TABLET PO (21:27)
[2023-04-07] MEDS: SUCRALFATE 1 GM TABLET PO (21:27)
[2023-04-08] VITALS (21 sets, daily range): BP systolic 144–151; BP diastolic 65–75; PULSE 95–118; RESP 18–24; TEMP 36.6–37.2; O2SAT 89–97
[2023-04-08] MEDS: BACLOFEN 10 MG TABLET 5 MG PO (01:34)
[2023-04-08] MEDS: PIPERACILLIN SODIUM/TAZOBACTAM 3.375 GM in 0.9 % SODIUM CHLORIDE 50 ML IV ×3 (01:59→17:01)
[2023-04-08] MEDS: IPRATROPIUM/ALBUTEROL SULFATE 3 ML AMPUL.NEB IH ×4 (04:19→20:07)
[2023-04-08 05:13] LABS: Basophils Percent Auto 0.2 % (0.2-2.0); Eosinophils Absolute Auto 0.1 10^3/uL (0.0-0.7); Eosinophils Percent Auto 0.4 % (0.9-7.0); Hematocrit 35.8 % (36.0-48.0); Hemoglobin 11.4 g/dL (12.0-16.0); Immature Granulocytes Abs Auto 0.25 10^3/uL (0.00-0.03); Immature Granulocytes Pct Auto 1.3 % (0.0-0.5); Lymphocytes Absolute Auto 2.4 10^3/uL (1.2-3.8); Lymphocytes Percent Auto 12.6 % (20.5-60.0); Mean Corpuscular HGB Conc 31.8 g/dL (29.9-35.2); Mean Corpuscular Hemoglobin 29.4 pg (26.7-34.0); Mean Corpuscular Volume 92.3 fL (81.0-99.0); Mean Platelet Volume 9.5 fL (9.5-13.5); Monocytes Absolute Auto 1.3 10^3/uL (0.3-0.8); Monocytes Percent Auto 6.7 % (1.7-12.0); Neutrophils Absolute Auto 14.8 10^3/uL (1.4-6.5); Neutrophils Percent Auto 78.8 % (43.0-75.0); Platelet Count 447 10^3/uL (150-450); Red Blood Count 3.88 10^6/uL (4.20-5.40); Red Cell Distribution Width 13.2 % (11.0-15.0); White Blood Count 18.8 10^3/uL (4.0-11.0)
[2023-04-08] MEDS: MAGNESIUM OXIDE 400 MG TABLET PO ×3 (05:22→21:38)
[2023-04-08] MEDS: GABAPENTIN 300 MG CAPSULE 600 MG PO ×3 (05:22→21:38)
[2023-04-08] MEDS: HYDROCODONE/ACET 5-325 MG TABLET 1 TAB PO ×3 (05:31→19:30)
[2023-04-08 05:38] LABS: Anion Gap 10.1; BUN Creatinine Ratio 31.3; Calcium 10.3 mg/dL (8.5-10.1); Carbon Dioxide 30.7 mmol/L (21.0-32.0); Chloride 104 mmol/L (98-107); Estimated GFR (African America >60 (>=60); Estimated GFR (Non-African Ame 55 (>=60); Glucose 104 mg/dL (74-106); Potassium 4.8 mmol/L (3.5-5.1); Sodium 140 mmol/L (136-145)
[2023-04-08 07:37] LABS: Glucometer 104 mg/dL (74-106)
--- NOTE | 2023-04-08 08:05 | P.PN_ITS ---
Progress Note: Subjective Subjective Interval history: , Still dyspnea with activity but much improved, but still on supplemental oxygen, before should be good - feeling much better this morning Exam Constitutional Vital Signs, click to edit/add: Last Vital Signs Temp 98.3 F 04/08/23 07:57 Pulse 110 H 04/08/23 07:57 Resp 22 04/08/23 07:57 BP 149/75 H 04/08/23 07:57 Pulse Ox 93 L 04/08/23 07:57 O2 Del Method Nasal Cannula 04/08/23 07:57 O2 Flow Rate 2 04/08/23 07:57 Progress Note: Objective Labs Labs: Short CBC 04/08/23 Range/Units 04:37 WBC 18.8 H (4.0-11.0) 10^3/uL Hgb 11.4 L (12.0-16.0) g/dL Hct 35.8 L (36.0-48.0) % Plt Count 447 (150-450) 10^3/uL BMP 04/08/23 04:37 Sodium 140 Potassium 4.8 Chloride 104 Carbon Dioxide 30.7 BUN 31.0 H Creatinine 0.99 Glucose 104 Calcium 10.3 H Progress Note: A&P Assessment and Plan (1) Basal pneumonia: (2) Chronic pain syndrome: (3) Obesity (BMI 30.0-34.9): (4) Diabetes: (5) High cholesterol: (6) Hypertension: Plan Acute hypoxic respiratory failure with O2 saturation of 90% on 3 L of supplemental oxygen. Patient does not wear supplemental oxygen at home, also significant respiratory distress and tachycardia uncontrolled hypertension, leukocytosis on admission as well. This is all secondary to bilateral lower lobe pneumonia with failed outpatient treatment with oral Zithromax. Continue with antibiotics that were adjusted yesterday. CTA without PE -since overall is feeling better, continue with current treatment plan, likely discharge back to her assisted living facility tomorrow Hypertension-continue with home medications, monitor here. Uncontrolled on admission but improved this morning Leukocytosis secondary to above-monitor daily-deteriorated Acute elevation in BUN and creatinine secondary to dehydration-back to normal baseline today Diabetic peripheral wyohoiqndm-jvzalwn-grvujofbr diabetes mellitus-insulin sliding scale plus home medications-continue with current sliding scale with much improved Generalized anxiety disorder-continue with home medications Chronic low back pain-change oral pain medications to 4 times daily as needed. Likely exacerbation of back pain secondary to Hospitalization Hypomagnesemia-continue supplementation GERD-continue with Carafate Morbid obesity-diet management Hypercalcemia-not on any supplements, continue to monitor Polyclonal gammopathy-follows with nephrology for that as an outpatient With the degree of hypoxia, 90% on 3 L, patient does not have home oxygen- patient will require 2 to 3-day hospital stay so change patient to inpatient status with intensity of service and severity of illness as documented above
--- NOTE | 2023-04-08 08:35 | CM.NOTE ---
Important Message from Medicare explained and signed to Johanna. Voices no questions. Copy to chart and copy to Johanna.
[2023-04-08] MEDS: HYDRALAZINE HCL 25 MG TABLET PO ×2 (09:16→20:25)
[2023-04-08] MEDS: CHOLECALCIFEROL (VITAMIN D3) 125 MCG/5000 UNIT TABLET PO (09:16)
[2023-04-08] MEDS: FERROUS SULFATE 325 MG TABLET PO ×2 (09:16→20:25)
[2023-04-08] MEDS: AMLODIPINE BESYLATE 5 MG TABLET 10 MG PO (09:16)
[2023-04-08] MEDS: ASPIRIN 81 MG TABLET.DR PO (09:16)
[2023-04-08] MEDS: LACTOSE -REDUCED (ENSURE ORIGINAL 237 ML LIQUID) PO ×2 (09:17→20:25)
[2023-04-08] MEDS: FLUOXETINE HCL 10 MG CAPSULE PO (09:17)
[2023-04-08] MEDS: L. ACIDOPHILUS/L.BULGARICUS 1 PACKET GRAN.PACK PO ×2 (09:17→20:25)
[2023-04-08] MEDS: LOSARTAN POTASSIUM 50 MG TABLET 100 MG PO (09:17)
[2023-04-08] MEDS: METFORMIN HCL 500 MG TABLET PO ×2 (09:17→20:25)
[2023-04-08] MEDS: OMEPRAZOLE 40 MG CAPSULE.DR PO (09:19)
[2023-04-08] MEDS: FLUTICASONE PROPIONATE 50 MCG NASAL SPRAY 2 SPRAY NS (09:21)
[2023-04-08] MEDS: BUDESONIDE 0.5 MG/2 ML AMPULE NEB IH ×2 (11:07→20:07)
[2023-04-08 12:01] LABS: Glucometer 256 mg/dL (74-106)
[2023-04-08] MEDS: INSULIN ASPART 300 UNIT/3 ML PEN SUBQ ×3 (12:07→21:43)
--- NOTE | 2023-04-08 12:31 | CM.NOTE ---
Addendum entered by Janina Marks 04/08/23 12:36: Pt is at [facility]. Original Note: Discussed with pt about discharge planning, pt is currently at [facility]. Pt does plan on going back but looking to move out when she finds a place to rent. Pt voices she has not been happy with [facility] and the staffing and assistance they provide. Pt's daughter has reached out to [facility] for any housing recommendations or services for pt when she leaves [facility]. Pt also given information regarding Meals on Wheels and Passport. Pt at this time has [facility] Medicare with Medicaid secondary. Pt and daughter deny and discharge needs at this time, pt will go back to [facility].
--- NOTE | 2023-04-08 14:40 | CM.NOTE ---
Talked with pt regarding PT recommendations and no skilled needs identified. Pt in agreement with no discharge needs identified at this time.
[2023-04-08 16:12] LABS: Glucometer 248 mg/dL (74-106)
[2023-04-08] MEDS: BENZONATATE 100 MG CAPSULE 200 MG PO (17:26)
[2023-04-08] MEDS: LEVOFLOXACIN IN DEXTROSE 5 % 750 MG/150 ML IV.SOLN 100 MG IV (21:15)
[2023-04-08] MEDS: FENOFIBRATE 54 MG TABLET 162 MG PO (21:38)
[2023-04-08] MEDS: ARIPIPRAZOLE 15 MG TABLET PO (21:38)
[2023-04-08] MEDS: SUCRALFATE 1 GM TABLET PO (21:38)
[2023-04-08] MEDS: ATORVASTATIN CALCIUM 20 MG TABLET PO (21:38)
[2023-04-08] MEDS: AMITRIPTYLINE HCL 25 MG TABLET PO (21:39)
[2023-04-08] MEDS: TRAZODONE HCL 50 MG TABLET PO (21:39)
[2023-04-08 21:44] LABS: Glucometer 238 mg/dL (74-106)
[2023-04-09] VITALS (17 sets, daily range): BP systolic 150–156; BP diastolic 79–85; PULSE 101–121; RESP 18–22; TEMP 36.7–37.1; O2SAT 90–94
[2023-04-09] MEDS: BACLOFEN 10 MG TABLET 5 MG PO ×2 (00:40→11:41)
[2023-04-09] MEDS: HYDROCODONE/ACET 5-325 MG TABLET 1 TAB PO ×4 (01:20→20:33)
[2023-04-09] MEDS: PIPERACILLIN SODIUM/TAZOBACTAM 3.375 GM in 0.9 % SODIUM CHLORIDE 50 ML IV ×3 (01:20→18:25)
[2023-04-09] MEDS: IPRATROPIUM/ALBUTEROL SULFATE 3 ML AMPUL.NEB IH ×4 (04:04→20:24)
[2023-04-09] MEDS: GABAPENTIN 300 MG CAPSULE 600 MG PO ×4 (05:04→22:01)
[2023-04-09] MEDS: MAGNESIUM OXIDE 400 MG TABLET PO ×4 (05:04→22:02)
[2023-04-09 05:54] LABS: Basophils Absolute Auto 0.1 10^3/uL (0.0-0.1); Basophils Percent Auto 0.4 % (0.2-2.0); Eosinophils Absolute Auto 0.5 10^3/uL (0.0-0.7); Eosinophils Percent Auto 3.4 % (0.9-7.0); Hematocrit 35.5 % (36.0-48.0); Hemoglobin 11.5 g/dL (12.0-16.0); Immature Granulocytes Abs Auto 0.22 10^3/uL (0.00-0.03); Immature Granulocytes Pct Auto 1.6 % (0.0-0.5); Mean Corpuscular HGB Conc 32.4 g/dL (29.9-35.2); Mean Corpuscular Hemoglobin 29.6 pg (26.7-34.0); Mean Corpuscular Volume 91.3 fL (81.0-99.0); Mean Platelet Volume 9.8 fL (9.5-13.5); Monocytes Absolute Auto 1.1 10^3/uL (0.3-0.8); Monocytes Percent Auto 7.7 % (1.7-12.0); Neutrophils Absolute Auto 10.2 10^3/uL (1.4-6.5); Neutrophils Percent Auto 72.9 % (43.0-75.0); Platelet Count 368 10^3/uL (150-450); Red Blood Count 3.89 10^6/uL (4.20-5.40); White Blood Count 13.9 10^3/uL (4.0-11.0)
[2023-04-09 06:05] LABS: Anion Gap 10.9; BUN Creatinine Ratio 21.9; Calcium 9.7 mg/dL (8.5-10.1); Carbon Dioxide 29.6 mmol/L (21.0-32.0); Chloride 100 mmol/L (98-107); Estimated GFR (African America >60 (>=60); Estimated GFR (Non-African Ame 57 (>=60); Glucose 114 mg/dL (74-106); Potassium 4.5 mmol/L (3.5-5.1); Sodium 136 mmol/L (136-145)
[2023-04-09] MEDS: BENZONATATE 100 MG CAPSULE 200 MG PO ×2 (07:35→18:25)
[2023-04-09] MEDS: AMLODIPINE BESYLATE 5 MG TABLET 10 MG PO (09:14)
[2023-04-09] MEDS: CHOLECALCIFEROL (VITAMIN D3) 125 MCG/5000 UNIT TABLET PO (09:14)
[2023-04-09] MEDS: L. ACIDOPHILUS/L.BULGARICUS 1 PACKET GRAN.PACK PO ×2 (09:14→20:33)
--- NOTE | 2023-04-09 09:14 | CM.NOTE ---
Rounds made with Dr. Couch. Remains on 1.5L/NC of oxygen, attempt to wean through the day to room air. Hopeful home tomorrow.
[2023-04-09] MEDS: ASPIRIN 81 MG TABLET.DR PO (09:15)
[2023-04-09] MEDS: LACTOSE -REDUCED (ENSURE ORIGINAL 237 ML LIQUID) PO ×2 (09:15→20:33)
[2023-04-09] MEDS: OMEPRAZOLE 40 MG CAPSULE.DR PO (09:15)
[2023-04-09] MEDS: HYDRALAZINE HCL 25 MG TABLET PO ×2 (09:15→20:32)
[2023-04-09] MEDS: FERROUS SULFATE 325 MG TABLET PO ×2 (09:15→20:32)
[2023-04-09] MEDS: LOSARTAN POTASSIUM 50 MG TABLET 100 MG PO (09:15)
[2023-04-09] MEDS: FLUTICASONE PROPIONATE 50 MCG NASAL SPRAY 2 SPRAY NS (09:16)
[2023-04-09] MEDS: FLUOXETINE HCL 10 MG CAPSULE PO (09:20)
--- NOTE | 2023-04-09 09:20 | XR_ITS ---
The [address] [address] Patient Name: TUNDE AREVALO MRN: [id number] date: 1950 Sex: F Assigned Patient Location: [place] Current Patient Location: [place] Accession/Order Number: [id number] Exam Date: 04/09/2023 09:32 Report Date: 04/09/2023 09:56 At the request of: ERNIE GUERRERO Procedure: XR chest 2V EXAM: XR chest 2V HISTORY: dyspnea COMPARISON: None. TECHNIQUE: PA and lateral views of the chest. FINDINGS: The cardiomediastinal silhouette is normal. Mild interstitial opacity. There is no pneumothorax. No pleural effusion is noted. The osseous structures are intact. XR/XR chest 2V IMPRESSION: Congestion or atypical pneumonia. Electronically authenticated by: DESIREE ARIAS Date: 04/09/2023 09:56
--- NOTE | 2023-04-09 09:20 | P.PN_ITS ---
Progress Note: Subjective Subjective Interval history: Overall still improved able to wean supplemental oxygen slightly from yesterday. Continue with current treatment plan for today. Exam Constitutional Vital Signs, click to edit/add: Last Vital Signs Temp 98.2 F 04/09/23 05:08 Pulse 120 H 04/09/23 07:59 Resp 20 04/09/23 05:08 BP 153/79 H 04/09/23 05:08 Pulse Ox 90 L 04/09/23 05:08 O2 Del Method Nasal Cannula 04/09/23 05:08 O2 Flow Rate 1.5 04/09/23 05:08 Documenting provider has reviewed patient's vital signs: yes Common normals: no apparent distress HENMT Common normals: moist oral mucous membranes Chest Common normals: inspection of chest normal Respiratory Common normals: normal respiratory effort and no retractions Auscultation: rhonchi; no egophony Cardio Common normals: regular rate, regular rhythm and no murmurs GI Common normals: Normal to inspection, nondistended, normoactive bowel sounds present Extremity Common normals: normal to inspection, normal capillary refill and no clubbing, cyanosis or edema Progress Note: Objective Labs Labs: Short CBC 04/09/23 Range/Units 04:38 WBC 13.9 H (4.0-11.0) 10^3/uL Hgb 11.5 L (12.0-16.0) g/dL Hct 35.5 L (36.0-48.0) % Plt Count 368 (150-450) 10^3/uL BMP 04/09/23 04:38 Sodium 136 Potassium 4.5 Chloride 100 Carbon Dioxide 29.6 BUN 21.0 H Creatinine 0.96 Glucose 114 H Calcium 9.7 Progress Note: A&P Assessment and Plan (1) Basal pneumonia: (2) Chronic pain syndrome: (3) Obesity (BMI 30.0-34.9): (4) Diabetes: (5) High cholesterol: (6) Hypertension: Plan Acute hypoxic respiratory failure with O2 saturation of 90% on 3 L of supplemental oxygen. Patient does not wear supplemental oxygen at home, also significant respiratory distress and tachycardia uncontrolled hypertension, leukocytosis on admission as well. This is all secondary to bilateral lower lobe pneumonia with failed outpatient treatment with oral Zithromax. Continue with antibiotics that were adjusted yesterday. Was hoping for more improvement. She does overall feel improved we are able to wean supplemental oxygen some she was not on supplemental oxygen on admission. At this point working on getting her back to her previous facility. 1 more day of therapy to try to clear her lungs up further should resulted in discharging back to her previous location without supplemental oxygen Hypertension-continue with home medications, monitor here. Uncontrolled on admission but improved this morning Leukocytosis secondary to above-monitor daily-deteriorated Acute elevation in BUN and creatinine secondary to dehydration-back to normal ba seline today Diabetic peripheral wmtgrucljh-tbnatar-cwthybsee diabetes mellitus-insulin sliding scale plus home medications-continue with current sliding scale with much improved Generalized anxiety disorder-continue with home medications Chronic low back pain-change oral pain medications to 4 times daily as needed. Likely exacerbation of back pain secondary to Hospitalization Hypomagnesemia-continue supplementation GERD-continue with Carafate Morbid obesity-diet management Hypercalcemia-not on any supplements, continue to monitor Polyclonal gammopathy-follows with nephrology for that as an outpatient With the degree of hypoxia, 90% on 3 L, patient does not have home oxygen- patient will require 2 to 3-day hospital stay so change patient to inpatient status with intensity of service and severity of illness as documented above
[2023-04-09 10:50] LABS: Glucometer 332 mg/dL (74-106)
[2023-04-09] MEDS: BUDESONIDE 0.5 MG/2 ML AMPULE NEB IH ×2 (10:58→20:24)
[2023-04-09] MEDS: INSULIN ASPART 300 UNIT/3 ML PEN SUBQ ×3 (11:39→22:02)
[2023-04-09] MEDS: ACETAMINOPHEN 500 MG TABLET 1000 MG PO (11:41)
[2023-04-09 17:19] LABS: Glucometer 164 mg/dL (74-106)
[2023-04-09] MEDS: METFORMIN HCL 500 MG TABLET PO (20:33)
[2023-04-09] MEDS: FENOFIBRATE 54 MG TABLET 162 MG PO ×2 (20:34→22:01)
[2023-04-09] MEDS: ATORVASTATIN CALCIUM 20 MG TABLET PO ×2 (20:34→22:01)
[2023-04-09] MEDS: TRAZODONE HCL 50 MG TABLET PO ×2 (20:34→22:02)
[2023-04-09] MEDS: AMITRIPTYLINE HCL 25 MG TABLET PO ×2 (20:35→22:01)
[2023-04-09] MEDS: ARIPIPRAZOLE 15 MG TABLET PO ×2 (20:35→22:01)
[2023-04-09] MEDS: SUCRALFATE 1 GM TABLET PO ×2 (20:35→22:02)
[2023-04-09 20:38] LABS: Glucometer 231 mg/dL (74-106)
[2023-04-10] VITALS (11 sets, daily range): BP systolic 141–144; BP diastolic 69–74; PULSE 95–103; RESP 18; TEMP 36.6; O2SAT 90–97
[2023-04-10] MEDS: PIPERACILLIN SODIUM/TAZOBACTAM 3.375 GM in 0.9 % SODIUM CHLORIDE 50 ML IV (01:33)
[2023-04-10] MEDS: IPRATROPIUM/ALBUTEROL SULFATE 3 ML AMPUL.NEB IH ×2 (04:24→11:15)
[2023-04-10 05:48] LABS: Basophils Absolute Auto 0.1 10^3/uL (0.0-0.1); Basophils Percent Auto 0.4 % (0.2-2.0); Eosinophils Absolute Auto 0.9 10^3/uL (0.0-0.7); Eosinophils Percent Auto 6.5 % (0.9-7.0); Hematocrit 33.8 % (36.0-48.0); Immature Granulocytes Abs Auto 0.25 10^3/uL (0.00-0.03); Immature Granulocytes Pct Auto 1.8 % (0.0-0.5); Lymphocytes Absolute Auto 2.1 10^3/uL (1.2-3.8); Lymphocytes Percent Auto 14.6 % (20.5-60.0); Mean Corpuscular HGB Conc 32.5 g/dL (29.9-35.2); Mean Corpuscular Hemoglobin 28.9 pg (26.7-34.0); Mean Corpuscular Volume 88.7 fL (81.0-99.0); Mean Platelet Volume 9.7 fL (9.5-13.5); Monocytes Absolute Auto 0.8 10^3/uL (0.3-0.8); Monocytes Percent Auto 5.5 % (1.7-12.0); Neutrophils Absolute Auto 10.2 10^3/uL (1.4-6.5); Neutrophils Percent Auto 71.2 % (43.0-75.0); Platelet Count 380 10^3/uL (150-450); Red Blood Count 3.81 10^6/uL (4.20-5.40); Red Cell Distribution Width 12.6 % (11.0-15.0); White Blood Count 14.3 10^3/uL (4.0-11.0)
[2023-04-10] MEDS: MAGNESIUM OXIDE 400 MG TABLET PO (05:50)
[2023-04-10] MEDS: GABAPENTIN 300 MG CAPSULE 600 MG PO (05:50)
[2023-04-10] MEDS: HYDROCODONE/ACET 5-325 MG TABLET 1 TAB PO (05:53)
[2023-04-10 06:00] LABS: Anion Gap 11.2; BUN Creatinine Ratio 21.1; Calcium 9.7 mg/dL (8.5-10.1); Carbon Dioxide 27.9 mmol/L (21.0-32.0); Chloride 101 mmol/L (98-107); Estimated GFR (African America >60 (>=60); Estimated GFR (Non-African Ame 58 (>=60); Glucose 129 mg/dL (74-106); Potassium 4.1 mmol/L (3.5-5.1); Sodium 136 mmol/L (136-145)
--- NOTE | 2023-04-10 08:29 | CM.NOTE ---
2nd Notice From Important Message From Medicare discussed with pt, pt verbalizes understanding and denies questions or concerns.
--- NOTE | 2023-04-10 08:47 | P.DS_ITS ---
DS: Providers Provider Date of admission: 04/06/23 07:02 Primary care physician: Geraldo Rocha MD Consults: 04/08/23 08:07 Occupational Therapy Eval and Treat Routine Reason for consultation: Only if needed for Rehab Has provider been notified: No Physical Therapy Eval and Treat Routine Reason for consultation: Eval and Treat Has provider been notified: No DS: Diagnosis Discharge Diagnosis (1) Basal pneumonia: (2) Chronic pain syndrome: (3) Obesity (BMI 30.0-34.9): (4) Diabetes: (5) High cholesterol: (6) Hypertension: Plan Acute hypoxic respiratory failure with O2 saturation of 90% on 3 L of supplemental oxygen. Patient does not wear supplemental oxygen at home, also significant respiratory distress and tachycardia uncontrolled hypertension, leukocytosis on admission as well. This is all secondary to bilateral lower lobe pneumonia with failed outpatient treatment with oral Zithromax. Hypertension Leukocytosis secondary to above Acute elevation in BUN and creatinine secondary to dehydration Diabetic peripheral neuropathy Generalized anxiety disorder Chronic low back pain- Hypomagnesemia GERD Morbid obesity Hypercalcemia Polyclonal gammopathy With the degree of hypoxia, 90% on 3 L, patient does not have home oxygen-[place] ent will require 2 to 3-day hospital stay so change patient to inpatient status with intensity of service and severity of illness as documented above DS: Summary Hospital Course Hospital Course: Patient admitted to the ICU with Acute hypoxic respiratory failure with O2 saturation of 90% on 3 L of supplemental oxygen. Patient does not wear supplemental oxygen at home, also significant respiratory distress and tachycardia uncontrolled hypertension, leukocytosis on admission as well. This is all secondary to bilateral lower lobe pneumonia with failed outpatient treatment with oral Zithromax. Patient was very slow to improve. She was not on supplemental oxygen at the time and it was very slow to wean her back down to no nasal cannula O2. This overnight she was sats in the mid 90s on 1 L. This morning she was completed a walk test without supplemental oxygen saturations stayed above 90%. Her white blood cell count is improving her heart rate is improving her blood pressure is stable this point patient feels comfortable going back to her assisted living facility. Medications see list. Follow-up with PCP at assisted living facility Time Spent with Patient Time attestation: Total time spent providing and/or coordinating discharge services: Exam Constitutional Vital Signs, click to edit/add: Last Vital Signs Temp 97.8 F 04/10/23 04:32 Pulse 100 H 04/10/23 07:56 Resp 18 04/10/23 04:32 BP 144/74 H 04/10/23 04:32 Pulse Ox 97 04/10/23 04:32 O2 Del Method Nasal Cannula 04/10/23 04:32 O2 Flow Rate 1 04/10/23 04:32 Documenting provider has reviewed patient's vital signs: yes Common normals: no apparent distress HENMT Common normals: moist oral mucous membranes Chest Common normals: inspection of chest normal Respiratory Common normals: normal respiratory effort and no retractions Auscultation: rhonchi; no egophony Cardio Common normals: regular rate, regular rhythm and no murmurs GI Common normals: Normal to inspection, nondistended, normoactive bowel sounds present Extremity Common normals: normal to inspection, normal capillary refill and no clubbing, cyanosis or edema DS: Data Data Completed and Pending Labs on day of discharge: Labs from last 24 hours 04/10/23 04/10/23 04/09/23 04:32 04:23 20:37 WBC 14.3 H RBC 3.81 L Hgb 11.0 L Hct 33.8 L MCV 88.7 MCH 28.9 MCHC 32.5 RDW 12.6 Plt Count 380 MPV 9.7 Neut % (Auto) 71.2 Lymph % (Auto) 14.6 L [place] % (Auto) 5.5 Eos % (Auto) 6.5 Baso % (Auto) 0.4 Neut # (Auto) 10.2 H Lymph # (Auto) 2.1 [place] # (Auto) 0.8 Eos # (Auto) 0.9 H Baso # (Auto) 0.1 Abs Immat Gran (auto) 0.25 H Imm/Tot Granulo (auto) 1.8 H Sodium 136 Potassium 4.1 Chloride 101 Carbon Dioxide 27.9 Anion Gap 11.2 BUN 20.0 H Creatinine 0.95 Est GFR ( Amer) >60 Est GFR (Non-Af Amer) 58 L BUN/Creatinine Ratio 21.1 Glucose 129 H Calcium 9.7 NT-Pro-B Natriuret Pep 730.0 POC Glucose 231 H 04/09/23 04/09/23 17:01 10:50 WBC RBC Hgb Hct MCV MCH MCHC RDW Plt Count MPV Neut % (Auto) Lymph % (Auto) [place] % (Auto) Eos % (Auto) Baso % (Auto) Neut # (Auto) Lymph # (Auto) [place] # (Auto) Eos # (Auto) Baso # (Auto) Abs Immat Gran (auto) Imm/Tot Granulo (auto) Sodium Potassium Chloride Carbon Dioxide Anion Gap BUN Creatinine Est GFR ( Amer) Est GFR (Non-Af Amer) BUN/Creatinine Ratio Glucose Calcium NT-Pro-B Natriuret Pep POC Glucose 164 H 332 H Preliminary micro results at discharge 04/05/23 18:43 - Preliminary Blood NO GROWTH AT 36-48 HOURS. FINAL TO FOLLOW. 04/05/23 18:28 Blood Culture Result 1 - Preliminary Blood NO GROWTH AT 36-48 HOURS. FINAL TO FOLLOW. Discharge Plan Discharge Disposition: Home, Self-Care Condition: Good Discharge Medications: New levofloxacin 750 mg tablet 750 mg PO DAILY 7 Days Qty: 7 0RF benzonatate 200 mg capsule 200 mg PO TID PRN (Reason: cough) Qty: 30 0RF benzonatate 200 mg capsule 200 mg PO TID PRN (Reason: cough) Qty: 20 0RF levofloxacin 750 mg tablet 750 mg PO DAILY 7 Days Qty: 7 0RF Continued aripiprazole 15 mg tablet 15 mg PO BEDTIME hydralazine 25 mg tablet 25 mg PO Q12H magnesium oxide 400 mg (241.3 mg magnesium) tablet 400 mg PO TID fluticasone propionate 50 mcg/actuation spray,suspension 2 spray INTRANASAL QAM vit D3 5000 125 mcg tablet 125 mcg PO DAILY alprazolam [Xanax] 0.5 mg tablet 0.5 mg PO BID PRN (Reason: anxiety) Trulicity 4.5 mg/0.5 mL pen injector 4.5 mg subcut QWEEK Rx Instructions: [employer] fenofibrate 160 mg tablet 160 mg PO DAILY trazodone 50 mg tablet 50 mg PO BEDTIME baclofen 5 mg tablet 5 mg PO TID PRN (Reason: muscle spasm) ondansetron HCl 4 mg tablet 4 mg PO Q6H PRN (Reason: nausea and vomiting) camphor-menthol 0.2-3.5 % gel 1 applic topical BID PRN (Reason: pain) Rx Instructions: rub in gently and completely amitriptyline 25 mg tablet 25 mg PO BEDTIME aspirin [Adult Aspirin Regimen] 81 mg tablet,delayed release (DR/EC) 81 mg PO QDAY Baqsimi 3 mg/actuation spray,non-aerosol 3 mg intranasal .every 6 PRN (Reason: hypoglycemia) fluoxetine 10 mg tablet 10 mg PO QDAY gabapentin 600 mg tablet 600 mg PO TID insulin lispro [Humalog U-100 Insulin] 100 unit/mL solution 1 sliding scale dose subcut USEASDIRECTD Rx Instructions: takes 12 units at breakfast and lunch then 16 units at supper losartan 100 mg tablet 100 mg PO QDAY sucralfate 1 gram tablet 1 g PO BEDTIME insulin degludec [Tresiba FlexTouch U-100] 100 unit/mL (3 mL) insulin pen 40 unit subcut .at supp amlodipine 10 mg tablet 10 mg PO QDAY hydrochlorothiazide 25 mg tablet 25 mg PO QDAY hydrocodone-acetaminophen 5-325 mg tablet 1 tab PO BID PRN (Reason: pain) metformin 500 mg tablet 500 mg PO BID pantoprazole 40 mg tablet,delayed release (DR/EC) 40 mg PO QDAY pravastatin 20 mg tablet 20 mg PO BEDTIME Patient Instructions: Benzonatate (By mouth) (Shelbie Eason), Levofloxacin (By mouth), Bacterial Pneumonia (DC) Forms: Portal Instructions Follow Up Appointments: Follow up appt. with Latia Sparks NP on @ 2:15pm [facility] office #: [phone] Discharge Date/Time: 04/10/23 12:16
[2023-04-10] MEDS: LACTOSE -REDUCED (ENSURE ORIGINAL 237 ML LIQUID) PO (09:15)
[2023-04-10] MEDS: OMEPRAZOLE 40 MG CAPSULE.DR PO (09:16)
[2023-04-10] MEDS: LOSARTAN POTASSIUM 50 MG TABLET 100 MG PO (09:16)
[2023-04-10] MEDS: AMLODIPINE BESYLATE 5 MG TABLET 10 MG PO (09:17)
[2023-04-10] MEDS: FLUOXETINE HCL 10 MG CAPSULE PO (09:17)
[2023-04-10] MEDS: METFORMIN HCL 500 MG TABLET PO (09:17)
[2023-04-10] MEDS: CHOLECALCIFEROL (VITAMIN D3) 125 MCG/5000 UNIT TABLET PO (09:17)
[2023-04-10] MEDS: HYDRALAZINE HCL 25 MG TABLET PO (09:17)
[2023-04-10] MEDS: FERROUS SULFATE 325 MG TABLET PO (09:17)
[2023-04-10] MEDS: ASPIRIN 81 MG TABLET.DR PO (09:17)
[2023-04-10] MEDS: FLUTICASONE PROPIONATE 50 MCG NASAL SPRAY 2 SPRAY NS (09:18)
--- NOTE | 2023-04-10 09:35 | CM.NOTE ---
Rounds made with Dr. Couch. Plan for discharge today. Potential need for oxygen at home. Would like Medical Services DME.
[2023-04-10] MEDS: BACLOFEN 10 MG TABLET 5 MG PO (10:50)
[2023-04-10] MEDS: BUDESONIDE 0.5 MG/2 ML AMPULE NEB IH (11:16)
--- OUTSIDE RECORDS SUMMARY | 2023-05-07 20:18 | XMS_ITS | CCD ---
Author Name Unknown Address [id number] [place] [address] Organization [facility] Care Team [facility] Director Name Role Phone Morgan Barcenas Unavailable Unavailable PROVIDER, UNKNOWN Unavailable Unavailable Ahmed, Ilia Unavailable Unavailable Morgan Barcenas Unavailable Unavailable PROVIDER, UNKNOWN Unavailable Unavailable Ahmed, Ilia Unavailable Unavailable STIVEN ANDINO Unavailable Unavailable Unknown, Referring Provider Unavailable Unav ailable Leah Brock Unavailable Unavailable Ahmed, Ilia Unavailable Unavailable MD Constantine Hernandez Attending Provider Isidra Hernandez Unavailable Sparks 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, Latia Attending Unavailable Sparks 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, Latia Primary Care Provider Unavailable Primary Care Provider Unavailabl e Sparks 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, Latia Primary Care Provider MISC, DR BECERRA Admitting Unavailable MISC, DR BECERRA Attending Unavailable NADCLAUDIO GERALDO A Primary Care Unavailable MISC, DR BECERRA Consulting Unavailable MISC, DR BECERRA Admitting Unavailable MISC, DR BECERRA Attending Unavailable JOAHN GERALDO A Primary Care Unavailable MISC, DR BECERRA Consulting Unavailable JOHAN GERALDO A Primary Care Unavailable LAKSHMIPATHY ., NARENDRANATH Admitting Sobeida vailable LAKSHMIPATHY ., NARENDRANATH Attending Sobeida vailable DR ERIN BERMAN Consulting Unavailable LAKSHMIPATHY ., NARENDRANATH Consulting Sobeida vailable LAKSHMIPATHY ., NARENDRANATH Admitting Sobeida vailable LAKSHMIPATHY ., NARENDRANATH Attending Sobeida vailable GERALDO PRADO A Primary Care Unavailable LAKSHMIPATHY ., NARENDRANATH Consulting Sobeida vailable LAKSHMIPATHY ., NARENDRANATH Admitting Sobeida vailable LAKSHMIPATHY ., NARENDRANATH Attending Sobeida vailable NADCLAUDIO, GERALDO A Primary Care Unavailable LAKSHMIPATHY ., NARENDRANATH Consulting Sobeida vailable LAKSHMIPATHY ., NARENDRANATH Admitting Sobeida vailable LAKSHMIPATHY ., NARENDRANATH Attending Sobeida vailable JOHAN, GERALDO A Primary Care Unavailable LAKSHMIPATHY ., NARENDRANATH Consulting Sobeida vailable NADCLAUDIO, GERALDO A Primary Care Unavailable LAKSHMIPATHY ., NARENDRANATH Admitting Sobeida vailable LAKSHMIPATHY ., NARENDRANATH Attending Sobeida vailable LAKSHMIPATHY ., NARENDRANATH Consulting Sobeida vailable LAKSHMIPATHY ., NARENDRANATH Admitting Sobeida vailable LAKSHMIPATHY ., NARENDRANATH Attending Sobeida vailable JOHAN, GERALDO A Primary Care Unavailable HALKER .DEANA Consulting Unavailable MISC, DR BECERRA Admitting Unavailable MISC, DR BECERRA Attending Unavailable GERALDO PRADO A Primary Care Unavailable MISC, DR BECERRA Consulting Unavailable SPARKS, LATIA Referring Unavailable SPARKS, LATIA Referring Unavailable Unavailable Primary Care Provider Unavailabl e Allergies Allergy Classification Reported Allergen(s) Allergy Type Date of Onset Reaction(s) Facility Anti-Epileptic Agents (1 source) topiramate Drug Allergy [facility]-Hick[facility] DO Work Phone: Penicillins (antibiotic) (1 source) Penicillins; Translations: [Penicillins] Drug Allergy [facility] DO Work Phone: (2 sources) Haloperidol; Translations: [Haldol] Drug Allergy 0 Unknown [facility] Rep[facility] (1 source) Penicillin V Drug Allergy Unknown [employer] Other (1 source) Thioridazine Drug Allergy Unknown [employer] Other (1 source) topiramate Drug Allergy Unknown [employer] Other (1 source) Tai Flavor Drug allergy Unknown [employer] Other (4 sources) tai allergenic extract Drug Allergy 0 Hives / Urticaria, Shock [facility] Rep[facility] (1 source) Penicillin Drug Allergy 0 [facility] (4 sources) topiramate Drug Allergy 0 [facility] (3 sources) Penicillins Allergy to substance 3 Hives / Urticaria [facility] (3 sources) Thioridazine Drug Allergy 3 [facility] Medications Current Medications Medication Drug Class(es) Dates Sig (Normalized) Sig (Original) 1st Tier Unifine Pentips Plus 33G X 4 MM Miscellaneous (5 sources) Start: 08-28-2022 1st Tier Unifine Pentips Plus 33G X 4 MM Miscellaneous 08/28/2022 Provider: Latia MAYORGA Aircast Sport Ankle Brace/Left - (1 source) Start: 09-21-2021 Aircast Sport Ankle Brace/Left - as directed September, Active amitriptyline hydrochloride 25 mg oral tablet (20 sources) Tricyclic Antidepressant Start: 02-06-2023 Amitriptyline HCl 25 MG Oral Tablet 02/06/2023 Provider: Latia MAYORGA Start: 08-09-2022 End: 11-15-2022 Amitriptyline HCl 25 MG Oral Tablet 11/08/2022 - 11/15/2022 Provider: Latia MAYORGA Start: 07-06-2022 End: 08-02-2022 Amitriptyline HCl 25 MG Oral Tablet 07/06/2022 - 08/02/2022 Provider: Amitriptyline HC l Active amLODIPine 10 mg oral tablet (20 sources) Dihydropyridine Calcium Channel Jone Start: 02-06-2023 amLODIPine Besylate 10 MG Oral Tablet 02/06/2023 Provider: Latia GREENP Start: 02-06-2023 End: 11-15-2022 amLODIPine Besylate 10 MG Or al Tablet 02/06/2023 - 11/15/2022 Provider: Latia GREENP Start: 02-06-2023 End: 11-15-2022 amLODIPine Besylate 10 MG Or al Tablet 02/06/2023 - 11/15/2022 Provider: Latia GREENP Start: 02-06-2023 End: 11-15-2022 amLODIPine Besylate 10 MG Or al Tablet 02/06/2023 - 11/15/2022 Provider: Latia MAYORGA Start: 08-22-2022 End: 11-15-2022 amLODIPine Besylate 10 MG Or al Tablet 08/22/2022 - 11/15/2022 Provider: Latia MAYORGA Start: 07-21-2022 End: 08-02-2022 amLODIPine Besylate 10 MG Or al Tablet 07/23/2022 - 08/02/2022 Provider: Latia MAYORGA amLODIPine Besyl ate Active Aspirin (1 source) Platelet Aggregation Inhibitor, Nonsteroidal Anti-inflammatory Drug Aspirin 81 Active Butalbital-Acetaminoph en (1 source) Butalbital-Aceta minoph en Active fenofibrate 160 mg oral tablet (20 sources) Peroxisome Proliferator Receptor alpha Agonist Start: 02-06-2023 Fenofibrate 160 MG Oral Tablet 02/06/2023 Provider: Latia MAYORGA Start: 11-15-2022 End: 11-15-2022 Fenofibrate 160 MG Oral Tabl et 11/15/2022 - 11/15/2022 Provider: Latia MAYORGA Start: 09-09-2022 End: 11-15-2022 Fenofibrate 145 MG Oral Tabl et 11/08/2022 - 11/15/2022 Provider: Latia MAYORGA Start: 09-09-2022 End: 08-02-2022 Fenofibrate 145 MG Oral Tabl et 09/09/2022 - 08/02/2022 Provider: Start: 09-09-2022 End: 08-02-2022 Fenofibrate 145 MG Oral Tabl et 09/09/2022 - 08/02/2022 Provider: Start: 09-09-2022 End: 08-02-2022 Fenofibrate 145 MG Oral Tabl et 09/09/2022 - 08/02/2022 Provider: Start: 09-09-2022 End: 08-02-2022 Fenofibrate 145 MG Oral Tabl et 09/09/2022 - 08/02/2022 Provider: Start: 09-09-2022 End: 08-02-2022 Fenofibrate 145 MG Oral Tabl et 09/09/2022 - 08/02/2022 Provider: Start: 06-26-2022 End: 08-22-2022 Fenofibrate 145 MG Oral Tabl et 06/26/2022 - 08/22/2022 Provider: Fenofibrate Acti ve FLUoxetine 10 mg oral capsule (20 sources) Serotonin Reuptake Inhibitor Start: 08-28-2022 FLUoxetine HCl 10 MG Oral Capsule 08/28/2022 Provider: Latia MAYORGA Start: 08-22-2022 End: 08-02-2022 FLUoxetine HCl 10 MG Oral Ca psule 08/22/2022 - 08/02/2022 Provider: Latia MAYORGA Start: 08-22-2022 End: 08-02-2022 FLUoxetine HCl 10 MG Oral Ca psule 08/22/2022 - 08/02/2022 Provider: Latia MAYORGA Start: 08-22-2022 End: 08-02-2022 FLUoxetine HCl 10 MG Oral Ca psule 08/22/2022 - 08/02/2022 Provider: Latia MAYORGA Start: 08-22-2022 End: 08-02-2022 FLUoxetine HCl 10 MG Oral Ca psule 08/22/2022 - 08/02/2022 Provider: Latia MAYORGA Start: 08-22-2022 End: 08-02-2022 FLUoxetine HCl 10 MG Oral Ca psule 08/22/2022 - 08/02/2022 Provider: Latia MAYORGA Start: 07-20-2022 End: 08-02-2022 FLUoxetine HCl 10 MG Oral Ca psule 07/23/2022 - 08/02/2022 Provider: Latia MAYORGA Fluoxetine Activ e fluticasone propionate 0.05 mg/actuat metered dose nasal spray (6 sources) Corticosteroid Start: 08-09-2022 Flonase Allerg y Relief 50 MCG/ACT Nasal Suspension 08/09/2022 Provider: Latia MAYORGA Fluticasone Prop ionate Active gabapentin 600 mg oral tablet (20 sources) Anti-epileptic Agent Start: 02-06-2023 Gabapenti n 600 MG Oral Tablet 02/06/2023 Provider: Latia MAYORGA Start: 12-18-2022 End: 11-15-2022 Gabapentin 600 MG Oral Table t 12/18/2022 - 11/15/2022 Provider: Latia GREENP Start: 12-18-2022 End: 11-15-2022 Gabapentin 600 MG Oral Table t 12/18/2022 - 11/15/2022 Provider: Latia Sparks 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 Start: 12-18-2022 End: 11-15-2022 Gabapentin 600 MG Oral Table t 12/18/2022 - 11/15/2022 Provider: Latia Hoffmanim 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 Start: 08-22-2022 End: 11-15-2022 Gabapentin 600 MG Oral Table t 08/22/2022 - 11/15/2022 Provider: Latia GREENP Start: 07-03-2022 End: 08-02-2022 Gabapentin 600 MG Oral Table t 07/23/2022 - 08/02/2022 Provider: Latia Sparks 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 Gabapentin Activ e Gabapentin 600 M G Oral Tablet Refills: 0 Active hydrALAZINE hydrochloride 25 mg oral tablet (19 sources) Arteriolar Vasodilator Start: 02-06-2023 hydrALAZINE HCl 25 M G Oral Tablet 02/06/2023 Provider: Latia GREENP Start: 09-09-2022 End: 11-15-2022 hydrALAZINE HCl 25 MG Oral T ablet 11/08/2022 - 11/15/2022 Provider: Latia Sparks 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 Start: 09-09-2022 End: 08-02-2022 hydrALAZINE HCl 25 MG Oral T ablet 09/09/2022 - 08/02/2022 Provider: Start: 09-09-2022 End: 08-02-2022 hydrALAZINE HCl 25 MG Oral T ablet 09/09/2022 - 08/02/2022 Provider: Start: 09-09-2022 End: 08-02-2022 hydrALAZINE HCl 25 MG Oral T ablet 09/09/2022 - 08/02/2022 Provider: Start: 09-09-2022 End: 08-02-2022 hydrALAZINE HCl 25 MG Oral T ablet 09/09/2022 - 08/02/2022 Provider: Start: 09-09-2022 End: 08-02-2022 hydrALAZINE HCl 25 MG Oral T ablet 09/09/2022 - 08/02/2022 Provider: hydrALAZINE HCl Active hydroCHLOROthiazide 25 mg oral tablet (20 sources) Thiazide Diuretic Start: 08-22-2022 hydroCHLOROthiazide 25 MG Oral Tablet 08/22/2022 Provider: Latia MAYORGA Start: 07-22-2022 End: 08-02-2022 hydroCHLOROthiazide 25 MG Or al Tablet 07/23/2022 - 08/02/2022 Provider: Latia MAYORGA hydroCHLOROthiaz jaja Active insulin detemir (2 sources) Insulin Analog Levemir Active Levemir SOLN Ref ills: 0 Active lidocaine 0.05 mg/mg medicated patch (2 sources) Antiarrhythmic, Amide Local Anesthetic Start: 04-18-2023 Lidocaine 5% External Patch 04/18/2023 Provider: Latia MAYORGA losartan potassium 100 mg oral tablet (14 sources) Angiotensin 2 Receptor Jone Start: 02-06-2023 Losartan Potassium 100 MG Oral Tablet 02/06/2023 Provider: Latia MAYORGA Start: 08-28-2022 End: 11-15-2022 Losartan Potassium 100 MG Or al Tablet 08/28/2022 - 11/15/2022 Provider: Latia MAYORGA Start: 07-28-2022 End: 08-02-2022 Losartan Potassium 100 MG Or al Tablet 07/28/2022 - 08/02/2022 Provider: Losartan Almaz Active Menthol (1 source) Biofreeze Active metFORMIN hydrochloride 500 mg oral tablet (15 sources) Biguanide Start: 08-09-2022 metFORMIN HCl 500 MG Oral Tablet 08/09/2022 Provider: Latia MAYORGA Start: 06-27-2022 End: 08-02-2022 metFORMIN HCl 500 MG Oral Ta blet 06/27/2022 - 08/02/2022 Provider: metFORMIN HCl Ac tive naproxen 500 mg oral tablet (2 sources) Nonsteroidal Anti-inflammatory Drug Start: 04-18-2023 Naproxen 500 MG O ral Tablet 04/18/2023 Provider: Latia MAYORGA ondansetron 4 mg disintegrating oral tablet (4 sources) Serotonin-3 Receptor Antagonist Start: 11-15-2022 Ondansetron 4 MG Ora l Tablet Disintegrating 11/15/2022 Provider: Latia MAYORGA Ondansetron HCl Active pantoprazole 40 mg delayed release oral tablet (20 sources) Proton Pump Inhibitor Start: 12-18-2022 Pantoprazole Sodium 40 MG Oral Tablet Delayed Release 12/18/2022 Provider: Latia MAYORGA Start: 08-22-2022 End: 11-15-2022 Pantoprazole Sodium 40 MG Or al Tablet Delayed Release 08/22/2022 - 11/15/2022 Provider: Latia MAYORGA Start: 07-22-2022 End: 08-02-2022 Pantoprazole Sodium 40 MG Or al Tablet Delayed Release 07/23/2022 - 08/02/2022 Provider: Latia MAYORGA Pantoprazole Sod ium Active pravastatin sodium 20 mg oral tablet (20 sources) HMG-CoA Reductase Inhibitor Start: 02-06-2023 Pravastatin Sodium 2 0 MG Oral Tablet 02/06/2023 Provider: Latia GREENP Start: 11-15-2022 End: 11-15-2022 Pravastatin Sodium 40 MG Ora l Tablet 11/15/2022 - 11/15/2022 Provider: Latia MAYORGA Start: 08-22-2022 End: 11-15-2022 Pravastatin Sodium 20 MG Ora l Tablet 11/15/2022 - 11/15/2022 Provider: Latia GREENP Start: 07-01-2022 End: 08-02-2022 Pravastatin Sodium 20 MG Ora l Tablet 07/23/2022 - 08/02/2022 Provider: Latia MAYORGA Pravastatin Sodi um Active sucralfate 1000 mg oral tablet (20 sources) Aluminum Complex Start: 08-09-2022 Sucralfate 1 GM Oral Tablet 08/09/2022 Provider: Latia MAYORGA Start: 07-15-2022 End: 08-02-2022 Sucralfate 1 GM Oral Tablet 07/23/2022 - 08/02/2022 Provider: Latia MAYORGA Sucralfate Activ e traZODone hydrochloride 50 mg oral tablet (20 sources) Serotonin Reuptake Inhibitor Start: 02-06-2023 traZODone HCl 50 MG Oral Tablet 02/06/2023 Provider: Latia MAYORGA Start: 11-08-2022 End: 11-15-2022 traZODone HCl 50 MG Oral Tab let 11/08/2022 - 11/15/2022 Provider: Latia MAYORGA Start: 08-22-2022 traZODone HCl 100 MG Oral Tablet 08/22/2022 Provider: Latia MAYORGA Start: 07-20-2022 End: 08-02-2022 traZODone HCl 100 MG Oral Ta blet 07/23/2022 - 08/02/2022 Provider: Latia MAYORGA traZODone HCl Ac tive traZODone HCl - 100 MG Oral Tablet Refills: 0 Active Vitamin D3 (1 source) Vitamin D3 Activ e Completed/Discontinued Medications Medication Drug Class(es) Dates Sig (Normalized) Sig (Original) acetaminophen 325 mg / HYDROcodone bitartrate 5 mg oral tablet (11 sources) Opioid Agonist Start: 07-17-2022 End: 08-22-2022 HYDROcodone-Acetam inophen 5-325 MG Oral Tablet 07/17/2022 - 08/22/2022 Provider: Start: 08-20-2017 HYDROcodone-Ac etaminophen 5-325 MG Oral Tablet Quantity: 16 Refills: 0 Start : 20-Aug-2017 Active HYDROcodone-Acet aminophen Active ALPRAZolam 0.5 mg oral tablet (20 sources) Benzodiazepine Start: 02-06-2023 End: 04-18-2023 ALPRAZolam 0.5 MG Oral Tablet 02/06/2023 - 04/18/2023 Provider: Latia MAYORGA Start: 12-18-2022 End: 11-15-2022 ALPRAZolam 0.5 MG Oral Table t 12/18/2022 - 11/15/2022 Provider: Latia MAYORGA Start: 12-18-2022 End: 11-15-2022 ALPRAZolam 0.5 MG Oral Table t 12/18/2022 - 11/15/2022 Provider: Latia MAYORGA Start: 12-18-2022 End: 11-15-2022 ALPRAZolam 0.5 MG Oral Table t 12/18/2022 - 11/15/2022 Provider: Latia MAYORGA Start: 08-22-2022 End: 11-15-2022 ALPRAZolam 0.5 MG Oral Table t 11/08/2022 - 11/15/2022 Provider: Latia MAYORGA Start: 05-23-2022 End: 08-02-2022 ALPRAZolam 0.5 MG Oral Table t 07/23/2022 - 08/02/2022 Provider: Latia MAYORGA Start: 07-22-2017 ALPRAZolam 0.5 MG Oral Tablet Quantity: 5 Refills: 0 Start : 22-Jul-2017 Active ALPRAZolam Activ e ARIPiprazole 15 mg oral tablet (20 sources) Atypical Antipsychotic Start: 05-21-2022 End: 08-22-2022 ARIPiprazole 15 MG Oral Tablet 07/21/2022 - 07/23/2022 Provider: Tatum Discmelt 10 MG TBDP Refills: 0 Active azithromycin 250 mg oral tablet (3 sources) Macrolide Antimicrobial Start: 04-01-2023 End: 04-18-2023 Azithromycin 250 MG Oral Tablet 04/01/2023 - 04/18/2023 Provider: Latia MAYORGA baclofen 10 mg oral tablet (9 sources) gamma-Aminobutyric Acid-ergic Agonist Start: 07-17-2022 End: 08-22-2022 Baclofen 10 MG Oral Tablet 07/17/2022 - 08/22/2022 Provider: canagliflozin 100 mg oral tablet (1 source) Sodium-Glucose Cotransporter 2 Inhibitor Invokana 100 MG Oral Tablet Refills: 0 Active Cholecalciferol (1 source) Vitamin D Vitamin D3 TABS Refills: 0 Active Dextromethorphan (1 source) Uncompetitive L-wcoabk-Q-aspartate Receptor Antagonist, Sigma-1 Agonist DexAlone CAPS Refills: 0 Active diazePAM 5 mg oral tablet (1 source) Benzodiazepine Start: 06-07-2017 diazePAM 5 MG Oral Tablet Quantity: 2 Refills: 0 Start : 07-Jun-2017 Active 0.5 ml dulaglutide 3 mg/ml auto-injector (20 sources) GLP-1 Receptor Agonist Start: 07-16-2022 End: 08-22-2022 Trulicity 1.5 MG/0.5ML Subcutaneous Solution Pen-injector 07/23/2022 - 08/02/2022 Provider: Latia MAYORGA Start: 07-04-2022 End: 08-22-2022 Trulicity 0.75 MG/0.5ML Subc utaneous Solution Pen-injector 07/04/2022 - 08/22/2022 Provider: NovoLOG SOLN (1 source) Insulin Analog NovoLOG SOLN Ref ills: 0 Active 3 ml insulin degludec 100 unt/ml pen injector (20 sources) Insulin Analog Start: 07-04-2022 End: 08-22-2022 Tresiba FlexTouch 100 UNIT/ML Subcutaneous Solution Pen-injector 07/16/2022 - 08/02/2022 Provider: 3 ml insulin lispro 100 unt/ml pen injector (20 sources) Insulin Analog Start: 07-05-2022 End: 08-22-2022 Insulin Lispro (1 Unit Dial) 100 UNIT/ML Subcutaneous Solution Pen-injector 07/10/2022 - 08/22/2022 Provider: Insulin Lispro A ctive LORazepam 0.5 mg oral tablet (1 source) Benzodiazepine Start: 07-27-2017 LORazepam 0.5 MG Oral Tablet Quantity: 10 Refills: 0 Start : 27-Jul-2017 Active 24 hr metFORMIN hydrochloride 500 mg / SITagliptin 50 mg extended release oral tablet (1 source) Biguanide, Dipeptidyl Peptidase 4 Inhibitor take 50-500 mg by mouth every twenty-fo ur hours Janumet XR 50-500 MG Oral Tablet Extended Release 24 Hour Refills: 0 Active methylPREDNISolone 4 mg oral tablet (1 source) Corticosteroid Start: 06-07-2017 methylPREDNISolone 4 MG Oral Tablet Therapy Pack Quantity: 21 Refills: 0 Start : 07-Jun-2017 Active venlafaxine 100 mg oral tablet (1 source) Serotonin and Norepinephrine Reuptake Inhibitor Effexor 100 MG TABS Refills: 0 Active Problems Active Problems Problem Classification Problem Date Documented Da te Episodic/Chronic Anxiety disorders (20 sources) Generalized anxiety disorder; Translations: [Generalized anxiety disorder] Onset: 07-23-2022 07-23-2022 Chronic Diabetes mellitus with complications (20 sources) Other specified diabetes mellitus with unspecified complications; Translations: [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] Onset: 01-08-2018 07-23-2022 Chronic Diabetes mellitus without complication (5 sources) Type 2 diabetes mellitus without complications; Translations: [TYPE 2 DM WITHOUT COMPLICATIONS] Onset: 07-18-2022 Chronic Disorders of lipid metabolism (20 sources) Hyperlipidemia, unspecified; Translations: [Hyperlipidemia] Onset: 01-08-2018 07-23-2022 Chronic Essential hypertension (11 sources) Essential (primary) hypertension; Translations: [Essential hypertension] Onset: 01-08-2018 07-23-2022 Chronic Miscellaneous mental health disorders (18 sources) Primary insomnia; Translations: [Primary insomnia] Onset: 07-23-2022 07-23-2022 Chronic Mood disorders (20 sources) Moderate recurrent major depression; Translations: [Major depressive disorder, recurrent, moderate] Onset: 07-23-2022 07-23-2022 Chronic Mood disorders (2 sources) Major depressive disorder, single episode, unspecified; Translations: [Major depressive disorder, single episode, unspecified] Onset: 01-08-2018 Other aftercare (1 source) snf (current) use of insulin; Translations: [CORRECTION CURRENT USE OF INSULIN] Onset: 09-27-2022 Episodic Other circulatory disease (1 source) H/O: hypertension; Translations: [Personal history of other diseases of circulatory system] Episodic Other connective tissue disease (1 source) Diastasis recti; Translations: [Diastasis of muscle] Episodic Other nervous system disorders (1 source) H/O: Disorder; Translations: [Personal history of other disorders of nervous system and sense organs] Episodic Other nutritional; endocrine; and metabolic disorders (2 sources) Morbid (severe) obesity due to excess calories; Translations: [Morbid (severe) obesity due to excess calories] Onset: 01-08-2018 Chronic Other nutritional; endocrine; and metabolic disorders (20 sources) Finding of body mass index; Translations: [Body mass index (observable entity)] Onset: 07-23-2022 Chronic Other nutritional; endocrine; and metabolic disorders (1 source) H/O: diabetes mellitus; Translations: [Personal history of other endocrine, metabolic, and immunity disorders] Episodic Screening and history of mental health and substance abuse codes (1 source) H/O: depression; Translations: [Personal history of other mental disorders] Episodic Spondylosis; intervertebral disc disorders; other back problems (4 sources) Spondylosis without myelopathy or radiculopathy, lumbar region; Translations: [SPONDYLS W/O MYELO-/RADICULOP LUMB] Onset: 09-25-2022 Chronic Substance-related disorders (19 sources) Tobacco dependence syndrome; Translations: [Nicotine dependence, unspecified, uncomplicated] Onset: 07-23-2022 07-23-2022 Chronic Unclassified (2 sources) Body mass index (BMI) 39.0-39.9, adult; Translations: [Body mass index (BMI) 39.0-39.9, adult] Onset: 01-08-2018 Chronic Unclassified (4 sources) LOW BACK PAIN, UNSPECIFIED; Translations: [LOW BACK PAIN, UNSPECIFIED] Onset: 08-17-2022 Past or Other Problems Problem Classification Problem Date Documented Date Episodic/Chronic Immunizations and screening for infectious disease (20 sources) Encounter for screening for human papillomavirus (HPV); Translations: [Encounter for screening for other viral diseases] Onset: 05-21-2018 Episodic Other injuries and conditions due to external causes (1 source) Injury, unspecified, initial encounter Onset: 09-21-2021 Resolved: 09-21-2021 Episodic Other screening for suspected conditions (not mental disorders or infectious disease) (11 sources) Encounter for screening for malignant neoplasm of cervix; Translations: [Encounter for screening for diabetes mellitus] Onset: 05-21-2018 Episodic Sprains and strains (1 source) Sprain of unspecified ligament of left ankle, initial encounter Onset: 09-21-2021 Resolved: 09-21-2021 Episodic Unclassified (20 sources) Intervention & Counseling Cessation of Tobacco Use 3-10 Min.; Translations: [Intervention & Counseling Cessation of Tobacco Use 3-10 Min.] Onset: 07-23-2022 Unclassified (1 source) LOW BACK PAIN, UNSPECIFIED; Translations: [LOW BACK PAIN, UNSPECIFIED] Onset: 08-28-2022 NEGATED: Highlighted row has not occurred!Residual codes; unclassified (1 source) Disease Episodic Results Test Name Value Interpretation Reference Range Facil ity Comp Metabolic Profon 2022 Albumin [Mass/Vol] 4.3 g/dL Normal 3.5-5.2 [facility] Comment on above: Performed By: #### L IPR, CP #### [facility] [address] [place] [id number] [employer] Mechanic: Genaro Angel MD Albumin/Glob Ratio 1.5 Normal 1.0-2.5 [facility] Comment on above: Performed By: #### L IPR, CP #### [facility] [address] [place] [id number] [employer] Mechanic: Genaro Angel MD Alkaline Phos 116 U/L High 35-104 [facility] Comment on above: Performed By: #### L IPR, CP #### [address] [address] [employer] Mechanic: Genaro Angel MD ALT [Catalytic activity/Vol] 25 U/L Normal 5-33 [facility] Comment on above: Performed By: #### L IPR, CP #### [address] [address] [employer] Mechanic: Genaro Angel MD Anion gap [Moles/Vol] 15 mmol/L Normal 9-17 [facility] Comment on above: Performed By: #### L IPR, CP #### [address] [address] [employer] Mechanic: Genaro Angel MD AST [Catalytic activity/Vol] 32 U/L High <32 [facility] Comment on above: Performed By: #### L IPR, CP #### [facility] [address] [address] [employer] Mechanic: Genaro Angel MD Bilirubin [Mass/Vol] 0.2 mg/dL Low 0.3-1.2 [facility] Comment on above: Performed By: #### L IPR, CP #### [facility] [address] [place] [phone] [employer] Mechanic: Genaro Angel MD Calcium [Mass/Vol] 10.7 mg/dL High 8.6-10.4 [facility] Comment on above: Performed By: #### L IPR, CP #### [facility] [address] [place] [id number] [employer] Mechanic: Genaro Angel MD Chloride [Moles/Vol] 102 mmol/L Normal 98-107 [facility] Comment on above: Performed By: #### L IPR, CP #### [facility] [address] [place] [id number] [employer] Mechanic: Genaro Angel MD CO2 [Moles/Vol] 23 mmol/L Normal 20-31 [facility] Comment on above: Performed By: #### L IPR, CP #### [address] [address] [employer] Mechanic: Genaro Angel MD Creatinine [Mass/Vol] 0.93 mg/dL High 0.50-0.90 [facility] Comment on above: Performed By: #### L IPR, CP #### [address] [address] [employer] Mechanic: Genaro Angel MD GFR/1.73 sq M.predicted dina g non-blacks MDRD (S/P/Bld) [Vol rate/Area] mL/min/{1.73_m2} Normal >60 [facility] Comment on above: Result Comment: These results are not intended for use in patients <18 years of age. eGFR results are calculated without a race factor using the 2020 CKD-EPI equation. Careful clinical correlation is recommended, particularly when comparing to results calculated using previous equations. The CKD-EPI equation is less accurate in patients with extremes of muscle mass, extra-renal metabolism of creatine, excessive creatine ingestion, or following therapy that affects renal tubular secretion. Performed By: #### L IPR, CP #### [address] [address] [employer]: Genaro Angel MD Glucose [Mass/Vol] 138 mg/dL High 70-99 [facility] Comment on above: Performed By: #### L IPR, CP #### [address] [address] [employer]ic: Genaro Angel MD Potassium [Moles/Vol] 5.3 mmol/L Normal 3.7-5.3 [facility] Comment on above: Performed By: #### L IPR, CP #### [address] [address] [employer]: Genaro Angel MD Protein [Mass/Vol] 7.1 g/dL Normal 6.4-8.3 [facility] Comment on above: Performed By: #### L IPR, CP #### [address] [address] [employer]: Genaro Angel MD Sodium [Moles/Vol] 140 mmol/L Normal 135-144 [facility] Comment on above: Performed By: #### L IPR, CP #### [address] [phone] [employer]: Genaro Angel MD Urea nitrogen [Mass/Vol] 26 mg/dL High 8-23 [facility] Comment on above: Performed By: #### L IPR, CP #### [address] [address] [employer]: Genaro Angel MD Lipid Profileon 11-10-2022 Cholesterol [Mass/Vol] 152 mg/dL Normal <200 [facility] Comment on above: Result Comment: Cholesterol Guidelines: <200 Desirable 200-240 Borderline >240 Undesirable Performed By: #### L IPR, CP #### [address] [address] [employer]: Genaro Angel MD Cholesterol in HDL [Mass/Vol] 30 mg/dL Low >40 [facility] Comment on above: Result Comment: HDL Guidelines: <40 Undesirable 40-59 Borderline >59 Desirable Performed By: #### L IPR, CP #### [address] [phone] [employer]ic: Genaro Angel MD Cholesterol in LDL [Mass/Vol] 44 mg/dL Normal 0-130 [facility] Comment on above: Result Comment: LDL Guidelines: <100 Desirable 100-129 Near to/above Desirable 130-159 Borderline >159 Undesirable Direct (measured) LDL and calculated LDL are not interchangeable tests. Performed By: #### L IPR, CP #### [facility] [employer] [address] [place] [id number] [employer]ic: Genaro Angel MD Cholesterol.total/Cholestero l in HDL [Mass ratio] 5.1 {ratio} High <5 [facility] Comment on above: Performed By: #### L IPR, CP #### [address] [phone] [employer]ic: Genaro Angel MD Triglyceride [Mass/Vol] 390 mg/dL High <150 M [facility] Comment on above: Result Comment: Triglyceride Guidelines: <150 Desirable 150-199 Borderline 200-499 High >499 Very high Based on AHA Guidelines for fasting triglyceride, February 2012. Performed By: #### L IPR, CP #### [address] [address] [employer]: Genaro Angel MD Laboratory - Chemistry and C hemistry - challengeon 11-09-2022 Albumin [Mass/Vol] 4.3 g/dL (3.5-5.2 ) [facility] Comment on above: Note: Responsible Ob food server: CCEV AUTOFILE (3002) ALT [Catalytic activity/Vol] 25 U/L (5-33 ) [facility] Comment on above: Note: Responsible Ob food server: [employer] AUTOFILE (3002) Anion gap [Moles/Vol] 15 mmol/L (9-17 ) [facility] Comment on above: Note: Responsible Ob food server: [employer] AUTOFILE (3002) AST [Catalytic activity/Vol] 32 U/L High (<32 ) [facility] Comment on above: Note: Responsible Ob food server: [employer] AUTOFILE (3002) Bilirubin [Mass/Vol] 0.2 mg/dL Low (0.3-1.2 ) [facility] Comment on above: Note: Responsible Ob food server: CCE[employer] AUTOFILE (3002) Calcium [Mass/Vol] 10.7 mg/dL High (8.6-10.4 ) [facility] Comment on above: Note: Responsible Ob food server: CCE[employer] AUTOFILE (3002) Chloride [Moles/Vol] 102 mmol/L (98-107 ) [facility] Comment on above: Note: Responsible Ob food server: [employer] AUTOFILE (3002) Cholesterol [Mass/Vol] 152 mg/dL (<200 ) [facility] Comment on above: Note: Cholesterol Gu idelines:<200 Guicdqmof256-183 Borderline>240 UndesirableResponsible Observer: CCEV AUTOFILE (3002) Cholesterol.total/Cholestero l in HDL [Mass ratio] 5.1 {ratio} High (<5 ) [facility] Comment on above: Note: Responsible Ob food server: CCE[employer] AUTOFILE (3002) CO2 [Moles/Vol] 23 mmol/L (20-31 ) [facility] Comment on above: Note: Responsible Ob food server: CCEV AUTOFILE (3002) Creatinine [Mass/Vol] 0.93 mg/dL High (0.50-0.90 ) [facility] Comment on above: Note: Responsible Ob food server: CCEV AUTOFILE (3002) GFR/1.73 sq M.predicted dina g non-blacks MDRD (S/P/Bld) [Vol rate/Area] mL/min/{1.73_m2} (>60 ) [facility] Comment on above: Note: These results are not intended for use in patients <18 years of age.eGFR results are calculated without a race factor using the 2020 CKD-EPIequation.Careful clinical correlation is recommended, particularly when comparing toresults calculated using previous equations.The CKD-EPI equation is less accurate in patients with extremes of muscle mass,extra-renal metabolism of creatine, excessive creatine ingestion, or followingtherapy that affects renal tubular secretion.Responsible Observer: CCEV AUTOFILE (3002) Glucose [Mass/Vol] 138 mg/dL High (70-99 ) [facility] Comment on above: Note: Responsible Ob food server: CCEV AUTOFILE (3002) Magnesium [Mass/Vol] 30 mg/dL Low (>40 ) [facility] Comment on above: Note: HDL Guidelines :<40 Hxsuxxawhxu48-39 Borderline>59 DesirableResponsible Observer: CCEV AUTOFILE (3002) Magnesium [Mass/Vol] 44 mg/dL (0-130 ) [facility] Comment on above: Note: LDL Guidelines :<100 Lxtypkzem524-298 Near to/above Rqqnrschs117-257 Borderline>159 UndesirableDirect (measured) LDL and calculated LDL are not interchangeable tests.Responsible Observer: CCEV AUTOFILE (3002) Potassium [Moles/Vol] 5.3 mmol/L (3.7-5.3 ) [facility] Comment on above: Note: Responsible Ob food server: CCEV AUTOFILE (3002) Protein [Mass/Vol] 7.1 g/dL (6.4-8.3 ) [facility] Comment on above: Note: Responsible Ob food server: CCEV AUTOFILE (3002) Sodium [Moles/Vol] 140 mmol/L (135-144 ) [facility] Comment on above: Note: Responsible Ob food server: CCEV AUTOFILE (3002) Triglyceride [Mass/Vol] 390 mg/dL High (<150 ) [facility] Note: Triglyceride G uidelines:<150 Opioozxhh449-144 Brjbprafsi911-403 High>499 Very highBased on AHA Guidelines for fasting triglyceride, February 2012.Responsible Observer: CCEV AUTOFILE (3002) Urea nitrogen [Mass/Vol] 26 mg/dL High (8-23 ) [facility] Comment on above: Note: Responsible Ob food server: CCEV AUTOFILE (3002) No Panel Informationon 11-09 Albumin/Glob Ratio 1.5 (1.0-2.5 ) [facility] Comment on above: Note: Responsible Ob food server: CCEV AUTOFILE (300) Alkaline Phos 116 U/L High (35-104 ) [facility] Comment on above: Note: Responsible Ob food server: CCEV AUTOFILE (9228) Reported Physicians See Note [facility] Comment on above: Note: Reported Physi cians:Ordering: Sparks, Latia OMARAttending: Sparks, NadiraReferring: Sparks, Latia CREATININE URINEon 3 URINE CREAT 31.31 mg/dL Normal 20.00-300.00 [facility] Comment on above: Performed By: #### C REAU #### [facility] [address] [place] [address] Dr. Shashi Jimenez MICROALBUMIN, MARTELL URon 09-17 mALB 14.3 mg/L Normal <=30.0 [facility] Comment on above: Performed By: #### M ALBR #### [facility] [address] [place] [address] Dr. Shashi Jimenez PROF 14(COMP METB)on 023 Albumin [Mass/Vol] 3.7 g/dL Normal 3.4-5.0 [facility] Comment on above: Performed By: #### C MP #### [facility] [address] [place] [address] Dr. Shashi Jimenez Albumin/Globulin [Mass ratio] 0.9 {ratio} Normal [facility] Comment on above: Performed By: #### C MP #### [facility] [address] [address] [address] Shashi Jimenez ALP [Catalytic activity/Vol] 109 U/L Normal 46-116 [facility] Comment on above: Performed By: #### C MP #### [facility] [address] [address] [address] Shashi Jimenez ALT [Catalytic activity/Vol] 39 U/L Normal 14-59 [facility] Comment on above: Performed By: #### C MP #### [facility] [address] [place] [address] Dr. Shashi Jimenez Anion gap [Moles/Vol] 12.0 mmol/L Normal [facility] Comment on above: Performed By: #### C MP #### [facility] [address] [address] [address] Shashi Jimenez AST [Catalytic activity/Vol] 35 U/L Normal 15-37 [facility] Comment on above: Performed By: #### C MP #### [facility] [address] [address] [address] Shashi Jimenez Bilirubin [Mass/Vol] 0.3 mg/dL Normal 0.2-1.0 [facility] Comment on above: Performed By: #### C MP #### [facility] [address] [address] [address] Shashi Jimenez Calcium [Mass/Vol] 10.5 mg/dL Critically high 8.5-10.1 [facility] Comment on above: Performed By: #### C MP #### [facility] [address] [address] [address] Shashi Jimenez Chloride [Moles/Vol] 103 mmol/L Normal 98-107 [facility] Comment on above: Performed By: #### C MP #### [facility] [address] [address] [address] Shashi Jimenez CO2 [Moles/Vol] 29.1 mmol/L Normal 21.0-32.0 [facility] Comment on above: Performed By: #### C MP #### [facility] [address] [address] [address] Shashi Jimenez Creatinine [Mass/Vol] 1.04 mg/dL Critically high 0.55-1.02 [facility] Comment on above: Performed By: #### C MP #### [facility] [address] [address] [address] Shashi Jimenez EGFR-AF [place] >60 Normal >=60 [facility] Comment on above: Performed By: #### C MP #### [facility] [address] [address] [address] Shashi Jimenez EGFR-NON AF [place] 52 mL/min/1.73m2 Critically low >=60 [facility] Comment on above: Performed By: #### C MP #### [facility] [address] [address] [address] Shashi Jimenez Globulin (S) [Mass/Vol] 4.2 g/dL Normal [facility] Comment on above: Performed By: #### C MP #### [facility] [address] [address] [address] Shashi Jimenez Glucose [Mass/Vol] 258 mg/dL Critically high 74-106 [facility] Comment on above: Performed By: #### C MP #### [facility] [address] [address] [address] Shashi Jimenez Potassium [Moles/Vol] 4.1 mmol/L Normal 3.5-5.1 [facility] Comment on above: Performed By: #### C MP #### [facility] [address] [address] [address] Shashi Jimenez Protein [Mass/Vol] 7.9 g/dL Normal 6.4-8.2 [facility] Comment on above: Performed By: #### C MP #### [facility] [address] [address] [address] Shashi Jimenez Sodium [Moles/Vol] 140 mmol/L Normal 136-145 [facility] Comment on above: Performed By: #### C MP #### [facility] [address] [address] [address] Shashi Jimenez Urea nitrogen [Mass/Vol] 23.0 mg/dL Critically high 7.0-18 .0 [facility] Comment on above: Performed By: #### C MP #### [facility] [address] [address] [address] Shashi Jimenez Urea nitrogen/Creatinine [Mass ratio] 22.1 mg/mg Normal [facility] Comment on above: Performed By: #### C MP #### [facility] [address] [address] [address] Shashi Jimenez POINT OF CARE GLUCOSEon 05-0 Glucose [Mass/Vol] 97 mg/dL Normal 74-106 [facility] Comment on above: Performed By: #### P OCGLUC #### [facility] [address] [address] [address] Shashi Jimenez POINT OF CARE GLUCOSEon 07-19 Glucose [Mass/Vol] 160 mg/dL Critically high 74-106 [facility] Comment on above: Performed By: #### P OCGLUC #### [facility] [address] [address] [address] LSPINE WO CONon CT LSPINE WO CON EXAMINATION: CT LSPI NE WO CON, 07/27/2022 2:28 PM EST HISTORY: Lumbar spondylosis ; chronic back pain increasing in severity COMPARISON: CT L-spine 07/09/2019 TECHNIQUE: CT of the lumbar spine was performed without IV contrast. CT dose reduction technique was used, including Automated Exposure Control. FINDINGS: PARASPINAL AREA: Normal with no visible mass. BONES: No fracture, pars defect, or osseous lesion. CERVICAL DISC LEVELS: 12-L1: Moderate degenerative disc disease is present without visible neural impingement. L1-L2: Moderate right foramen narrowing. Mild central canal and left foramen narrowing. Mild diffuse disc bulging and mild disc height reduction. L2-L3: Early degenerative disc disease is present without focal protrusion or neural impingement. L3-L4: Moderate central canal and mild bilateral foramen narrowing. Mild diffuse disc bulging without disc height reduction. Moderate degenerative facet arthropathy, right greater than left. L4-L5: Moderate or greater central canal narrowing. Moderate foramen narrowing, right greater than left. Moderate diffuse disc bulging without disc height reduction. Moderate degenerative facet arthropathy bilaterally. L5-S1: Mild central canal narrowing. Moderate-marked foramen narrowing bilaterally. Moderate diffuse disc bulging with mild disc height reduction. Marked degenerative facet arthropathy. IMPRESSION: 1. Multilevel degenerative disc disease and facet arthropathy, with moderate or greater central canal narrowing at L4-5 and moderate marked foramen narrowing at L5-S1. Findings appear slightly progressed compared to prior study. Electronically authenticated by: ERIN BERMAN Date: 2022-07-27 16:56 Normal [facility] CBCon 07-24-2022 Erythrocyte distribution wid th (RBC) [Ratio] 14.1 % Normal 11.8-14.4 [facility] Comment on above: Performed By: #### I PF, TSHX, VD25, CBC, CP, LIPR #### [address] [address] [employer]ic: Genaro Angel MD Hematocrit (Bld) [Volume fraction] 43.9 % Normal 36.3-47.1 [facility] Comment on above: Performed By: #### I PF, TSHX, VD25, CBC, CP, LIPR #### [address] [address] [employer]ic: Genaro Angel MD Hemoglobin (Bld) [Mass/Vol] 14.3 g/dL Normal 11.9-15. 1 [facility] Comment on above: Performed By: #### I PF, TSHX, VD25, CBC, CP, LIPR #### [place] [address] [employer]ic: Genaro Angel MD MCH (RBC) [Entitic mass] 30.5 pg Normal 25.2-33.5 [facility] Comment on above: Performed By: #### I PF, TSHX, VD25, CBC, CP, LIPR #### [address] [address] [employer]ic: Genaro Angel MD MCHC (RBC) [Mass/Vol] 32.6 g/dL Normal 28.4-34.8 [facility] Comment on above: Performed By: #### I PF, TSHX, VD25, CBC, CP, LIPR #### [address] [address] [employer]ic: Genaro Angel MD MCV (RBC) [Entitic vol] 93.6 fL Normal 82.6-102.9 [facility] Comment on above: Performed By: #### I PF, TSHX, VD25, CBC, CP, LIPR #### [address] [address] [employer]ic: Genaro Angel MD NRBC Automated 0.0 per 100 WBC Normal 0.0 [facility] Comment on above: Performed By: #### I PF, TSHX, VD25, CBC, CP, LIPR #### [address] [phone] [employer]ic: Genaro Angel MD Platelet Count See Reflexed IPF Result Normal 138-453 [facility] Comment on above: Performed By: #### I PF, TSHX, VD25, CBC, CP, LIPR #### [address] [phone] [employer]ic: Genaro Angel MD RBC (Bld) [#/Vol] 4.69 10*6/uL Normal 3.95-5.11 [facility] Comment on above: Performed By: #### I PF, TSHX, VD25, CBC, CP, LIPR #### [address] [phone] [employer] Mechanic: Genaro Angel MD WBC (Bld) [#/Vol] 8.4 10*3/uL Normal 3.5-11.3 [facility] Comment on above: Performed By: #### I PF, TSHX, VD25, CBC, CP, LIPR #### [address] [phone] [employer]ic: Genaro Angel MD Hematocrit (Bld) [Volume fraction] 43.9 % 36.3 - 47.1 % [facility] Hemoglobin (Bld) [Mass/Vol] 14.3 g/dL 11.9 - 15.1 g/dL [facility] MCH (RBC) [Entitic mass] 30.5 pg 25.2 - 33.5 pg [facility] MCHC (RBC) [Mass/Vol] 32.6 g/dL 28.4 - 34.8 g/ dL [facility] MCV (RBC) [Entitic vol] 93.6 fL 82.6 - 102.9 fL [facility] NRBC Automated 0.0 0.0 per 100 WBC [facility] Platelet distribution width (Bld) [Ratio] 14.1 % 11.8 - 14.4 % [facility] Platelets (Bld) [#/Vol] See Reflexed IPF Result [facility] RBC (Bld) [#/Vol] 4.69 10*6/uL 3.95 - 5.11 m/uL [facility] WBC (Bld) [#/Vol] 8.4 10*3/uL [facility] Comp Metabolic Profon 2022 Albumin [Mass/Vol] 4.3 g/dL Normal 3.5-5.2 [facility] Comment on above: Performed By: #### I PF, TSHX, VD25, CBC, CP, LIPR #### [facility] [employer] [address] [place] [phone] [employer]ic: Genaro Angel MD Albumin/Glob Ratio 1.3 Normal 1.0-2.5 [facility] Comment on above: Performed By: #### I PF, TSHX, VD25, CBC, CP, LIPR #### [employer] [address] [place] [id number] [employer]ic: Genaro nAgel MD Alkaline Phos 116 U/L High 35-104 [facility] Comment on above: Performed By: #### I PF, TSHX, VD25, CBC, CP, LIPR #### [employer] [address] [place] [phone] [employer] Mechanic: Genaro Angel MD ALT [Catalytic activity/Vol] 27 U/L Normal 5-33 [facility] Comment on above: Performed By: #### I PF, TSHX, VD25, CBC, CP, LIPR #### [employer] [address] [place] [address] [phone] [employer] Mechanic: Genaro Angel MD Anion gap [Moles/Vol] 15 mmol/L Normal 9-17 [facility] Comment on above: Performed By: #### I PF, TSHX, VD25, CBC, CP, LIPR #### [facility] [employer] [address] [place] [phone] [employer]ic: Genaro Angel MD AST [Catalytic activity/Vol] 30 U/L Normal <32 [facility] Comment on above: Performed By: #### I PF, TSHX, VD25, CBC, CP, LIPR #### [facility] [employer] [address] [place] [phone] [employer]ic: Genaro Angel MD Bilirubin [Mass/Vol] 0.4 mg/dL Normal 0.3-1.2 [facility] Comment on above: Performed By: #### I PF, TSHX, VD25, CBC, CP, LIPR #### [facility] [employer] [address] [place] [phone] [employer]ic: Genaro Angel MD Calcium [Mass/Vol] 10.9 mg/dL High 8.6-10.4 [facility] Comment on above: Performed By: #### I PF, TSHX, VD25, CBC, CP, LIPR #### [facility] [employer] [address] [place] [phone] [employer]ic: Genaro Angel MD Chloride [Moles/Vol] 100 mmol/L Normal 98-107 [facility] Comment on above: Performed By: #### I PF, TSHX, VD25, CBC, CP, LIPR #### [facility] [employer] [address] [place] [phone] [employer]ic: Genaro Angel MD CO2 [Moles/Vol] 20 mmol/L Normal 20-31 [facility] Comment on above: Performed By: #### I PF, TSHX, VD25, CBC, CP, LIPR #### [facility] [employer] [address] [place] [address] [phone] [employer]ic: Genaro Angel MD Creatinine [Mass/Vol] 0.95 mg/dL High 0.50-0.90 [facility] Comment on above: Performed By: #### I PF, TSHX, VD25, CBC, CP, LIPR #### [facility] [employer] [address] [place] [address] [phone] [employer]ic: Genaro Angel MD GFR/1.73 sq M.predicted dina g non-blacks MDRD (S/P/Bld) [Vol rate/Area] mL/min/{1.73_m2} Normal >60 [facility] Comment on above: Result Comment: These results are not intended for use in patients <18 years of age. eGFR results are calculated without a race factor using the 2020 CKD-EPI equation. Careful clinical correlation is recommended, particularly when comparing to results calculated using previous equations. The CKD-EPI equation is less accurate in patients with extremes of muscle mass, extra-renal metabolism of creatine, excessive creatine ingestion, or following therapy that affects renal tubular secretion. Performed By: #### I PF, TSHX, VD25, CBC, CP, LIPR #### [facility] [employer] [address] [place] [id number] [employer]ic: Genaro Angel MD Glucose [Mass/Vol] 259 mg/dL High 70-99 [facility] Comment on above: Performed By: #### I PF, TSHX, VD25, CBC, CP, LIPR #### [facility] [employer] [address] [place] [address] [phone] [employer]ic: Genaro Angel MD Potassium [Moles/Vol] 4.7 mmol/L Normal 3.7-5.3 [facility] Comment on above: Performed By: #### I PF, TSHX, VD25, CBC, CP, LIPR #### [facility] [employer] [address] [place] [address] [phone] [employer]ic: Genaro Angel MD Protein [Mass/Vol] 7.6 g/dL Normal 6.4-8.3 [facility] Comment on above: Performed By: #### I PF, TSHX, VD25, CBC, CP, LIPR #### [facility] [address], [place] [id number] [employer]ic: Genaro Angel MD Sodium [Moles/Vol] 135 mmol/L Normal 135-144 [facility] Comment on above: Performed By: #### I PF, TSHX, VD25, CBC, CP, LIPR #### [facility] [address], [place] [phone] [employer]ic: Genaro Angel MD Urea nitrogen [Mass/Vol] 33 mg/dL High 8-23 [facility] Comment on above: Performed By: #### I PF, TSHX, VD25, CBC, CP, LIPR #### [employer] [address], [place] [phone] [employer]ic: Genaro Angel MD Comprehensive Metabolic Pane [facility] 07-24-2022 Albumin [Mass/Vol] 4.3 g/dL 3.5 - 5.2 g/dL [facility] Albumin/Globulin [Mass ratio] 1.3 {ratio} 1.0 - 2.5 [facility] ALP [Catalytic activity/Vol] 116 U/L High 35 - 104 U/L [facility] ALT [Catalytic activity/Vol] 27 U/L 5 - 33 U/L [facility] Anion gap [Moles/Vol] 15 mmol/L 9 - 17 mmol/L [facility] AST [Catalytic activity/Vol] 30 U/L NINF - 32 U/L [facility] Bilirubin [Mass/Vol] 0.4 mg/dL 0.3 - 1.2 mg/dL [facility] Calcium [Mass/Vol] 10.9 mg/dL High 8.6 - 10.4 mg/dL [facility] Chloride [Moles/Vol] 100 mmol/L 98 - 107 mmol/L [facility] CO2 [Moles/Vol] 20 mmol/L 20 - 31 mmol/L [facility] Creatinine [Mass/Vol] 0.95 mg/dL High 0.50 - 0.90 mg /dL [facility] GFR/1.73 sq M.predicted MDRD (S/P/Bld) [Vol rate/Area] - PINF [facility] Comment on above: These results are not intended for use in patients <18 years of age. eGFR results are calculated without a race factor using the 2020 CKD-EPI equation. Careful clinical correlation is recommended, particularly when comparing to results calculated using previous equations. The CKD-EPI equation is less accurate in patients with extremes of muscle mass, extra-renal metabolism of creatine, excessive creatine ingestion, or following therapy that affects renal tubular secretion. Glucose [Mass/Vol] 259 mg/dL High 70 - 99 mg/dL [facility] Potassium [Moles/Vol] 4.7 mmol/L 3.7 - 5.3 mmol /L [facility] Protein [Mass/Vol] 7.6 g/dL 6.4 - 8.3 g/dL [facility] Sodium [Moles/Vol] 135 mmol/L 135 - 144 mmol/L [facility] Urea nitrogen [Mass/Vol] 33 mg/dL High 8 - 23 mg/d L [facility] Immature Platelet Fractionon 07-24-2022 Platelet, Fluorescence 158 [facility] Comment on above: ORDERED BY LAB Platelet, Immature Fraction 4.5 % 1.1 - 10 .3 % [facility] Comment on above: ORDERED BY LAB [facility] Lipid Panelon 07-24-2022 Cholesterol [Mass/Vol] 153 mg/dL NINF - 200 mg /dL [facility] Comment on above: Cholesterol Guidelines: <200 Desirable 200-240 Borderline >240 Undesirable Cholesterol in HDL [Mass/Vol] 29 mg/dL Low 40 - P INF mg/dL [facility] Comment on above: HDL Guidelines: <40 Undesirable 40-59 Borderline >59 Desirable Cholesterol in LDL [Mass/Vol] 60 mg/dL 0 - 13 0 mg/dL [facility] Comment on above: LDL Guidelines: <100 Desirable 100-129 Near to/above Desirable 130-159 Borderline >159 Undesirable Direct (measured) LDL and calculated LDL are not interchangeable tests. Cholesterol.total/Cholestero l in HDL [Mass ratio] 5.3 {ratio} High NINF - 5 [facility] Triglyceride [Mass/Vol] 319 mg/dL High [facility] - 150 mg/dL [facility] Comment on above: Triglyceride Guidelines: <150 Desirable 150-199 Borderline 200-499 High >499 Very high Based on AHA Guidelines for fasting triglyceride, February 2012. Lipid Profileon 07-24-2022 Cholesterol [Mass/Vol] 153 mg/dL Normal <200 [facility] Comment on above: Result Comment: Cholesterol Guidelines: <200 Desirable 200-240 Borderline >240 Undesirable Performed By: #### I PF, TSHX, VD25, CBC, CP, LIPR #### [address] [id number] [employer]: Genaro Angel MD Cholesterol in HDL [Mass/Vol] 29 mg/dL Low >40 [facility] Comment on above: Result Comment: HDL Guidelines: <40 Undesirable 40-59 Borderline >59 Desirable Performed By: #### I PF, TSHX, VD25, CBC, CP, LIPR #### [address] [address] [employer]: Genaro Angel MD Cholesterol in LDL [Mass/Vol] 60 mg/dL Normal 0-130 [facility] Comment on above: Result Comment: LDL Guidelines: <100 Desirable 100-129 Near to/above Desirable 130-159 Borderline >159 Undesirable Direct (measured) LDL and calculated LDL are not interchangeable tests. Performed By: #### I PF, TSHX, VD25, CBC, CP, LIPR #### [facility] [employer] [address] [place] [id number] [employer]: Genaro Angel MD Cholesterol.total/Cholestero l in HDL [Mass ratio] 5.3 {ratio} High <5 [facility] Comment on above: Performed By: #### I PF, TSHX, VD25, CBC, CP, LIPR #### [facility] [employer] [address] [place] [address] [phone] [employer]: Genaro Angel MD Triglyceride [Mass/Vol] 319 mg/dL High <150 [facility] Comment on above: Result Comment: Triglyceride Guidelines: <150 Desirable 150-199 Borderline 200-499 High >499 Very high Based on AHA Guidelines for fasting triglyceride, February 2012. Performed By: #### I PF, TSHX, VD25, CBC, CP, LIPR #### [facility] [employer] [address] [place] [address] [id number] [employer]: Genaro Angel MD No Panel Informationon 07-24 Interpretation and review of laboratory results Abnormal [employer] (formerly [employer]) [facility] PLT, Immature Fract.on 07-24 Platelet, Fluoresc. 158 k/uL Normal 138-453 [facility] Comment on above: Result Comment: ORDE RED BY LAB Performed By: #### I PF, TSHX, VD25, CBC, CP, LIPR #### [facility] [employer] [address] [place], [place] [phone] [employer]ic: Genaro Angel MD PLT, Immature Fract. 4.5 % Normal 1.1-10.3 [facility] Comment on above: Result Comment: ORDE RED BY LAB Performed By: #### I PF, TSHX, VD25, CBC, CP, LIPR #### [address] [phone] [employer]: Genaro Angel MD TSH w/reflex to FT4on 2022 Thyroid Stim. Horm. 1.50 uIU/mL Normal 0.30-5.00 [facility] Comment on above: Performed By: #### I PF, TSHX, VD25, CBC, CP, LIPR #### [facility] [employer] [address] [place] [address] [phone] [employer]: Genaro Angel MD TSH with Reflexon 07-24-2022 TSH Qn 1.50 m[IU]/L [facility] Vitamin D 25 Hydroxyon 07-24 25-hydroxyvitamin D3 [Mass/Vol] 92.8 ng/mL 29.9 - PINF ng/mL [facility] Comment on above: Reference Range: Vitamin D status Range Deficiency <20 ng/mL Mild Deficiency 20-30 ng/mL Sufficiency 30-100 ng/mL Toxicity >100 ng/mL [facility] Vitamin D 25 OHon 07-24-2022 Vitamin D 25 OH 92.8 ng/mL Normal >29.9 [facility] Comment on above: Result Comment: Reference Range: Vitamin D status Range Deficiency <20 ng/mL Mild Deficiency 20-30 ng/mL Sufficiency 30-100 ng/mL Toxicity >100 ng/mL Performed By: #### I PF, TSHX, VD25, CBC, CP, LIPR #### [facility] [employer] [address] [place], [place] [phone] [employer]: Genaro Angel MD Laboratory - Chemistry and C hemistry - challengeon 07-23-2022 Albumin [Mass/Vol] 4.3 g/dL (3.5-5.2 ) [facility] Comment on above: Note: Responsible Ob food server: CCE[employer] AUTOFILE (3002) ALT [Catalytic activity/Vol] 27 U/L (5-33 ) [facility] Comment on above: Note: Responsible Ob food server: [employer] AUT[employer] (3002) Anion gap [Moles/Vol] 15 mmol/L (9-17 ) [facility] Comment on above: Note: Responsible Ob food server: [employer]CE[employer] AUT[employer]FILE (3002) AST [Catalytic activity/Vol] 30 U/L (<32 ) [facility] Comment on above: Note: Responsible Ob food server: [employer] AUTOFILE (3002) Bilirubin [Mass/Vol] 0.4 mg/dL (0.3-1.2 ) [facility] Comment on above: Note: Responsible Ob food server: CCE[employer] AUTOFILE (3002) Calcium [Mass/Vol] 10.9 mg/dL High (8.6-10.4 ) [facility] Comment on above: Note: Responsible Ob food server: CCEV AUTOFILE (3002) Chloride [Moles/Vol] 100 mmol/L (98-107 ) [facility] Comment on above: Note: Responsible Ob food server: [employer] AUTOFILE (3002) Cholesterol [Mass/Vol] 153 mg/dL (<200 ) [facility] Comment on above: Note: Cholesterol Gu idelines:<200 [id number] Borderline>240 UndesirableResponsible Observer: CCEV AUTOFILE (3002) Cholesterol.total/Cholestero l in HDL [Mass ratio] 5.3 {ratio} High (<5 ) [facility] Comment on above: Note: Responsible Ob food server: CCE[employer] AUTOFILE (3002) CO2 [Moles/Vol] 20 mmol/L (20-31 ) [facility] Comment on above: Note: Responsible Ob food server: CCEV AUTOFILE (3002) Creatinine [Mass/Vol] 0.95 mg/dL High (0.50-0.90 ) [facility] Comment on above: Note: Responsible Ob food server: CCEV AUTOFILE (3002) GFR/1.73 sq M.predicted dina g non-blacks MDRD (S/P/Bld) [Vol rate/Area] mL/min/{1.73_m2} (>60 ) [facility] Comment on above: Note: These results are not intended for use in patients <18 years of age.eGFR results are calculated without a race factor using the 2020 CKD-EPIequation.Careful clinical correlation is recommended, particularly when comparing toresults calculated using previous equations.The CKD-EPI equation is less accurate in patients with extremes of muscle mass,extra-renal metabolism of creatine, excessive creatine ingestion, or followingtherapy that affects renal tubular secretion.Responsible Observer: CCEV AUTOFILE (3002) Glucose [Mass/Vol] 259 mg/dL High (70-99 ) [facility] Comment on above: Note: Responsible Ob food server: CCEV AUTOFILE (3002) Magnesium [Mass/Vol] 29 mg/dL Low (>40 ) [facility] Comment on above: Note: HDL Guidelines :<40 [id number] Borderline>59 DesirableResponsible Observer: CCEV AUTOFILE (3002) Magnesium [Mass/Vol] 60 mg/dL (0-130 ) [facility] Comment on above: Note: LDL Guidelines :<100 [id number] Near to/above Tsumjiluq118-844 Borderline>159 UndesirableDirect (measured) LDL and calculated LDL are not interchangeable tests.Responsible Observer: CCEV AUTOFILE (3002) Potassium [Moles/Vol] 4.7 mmol/L (3.7-5.3 ) [facility] Comment on above: Note: Responsible Ob food server: CCEV AUTOFILE (3002) Protein [Mass/Vol] 7.6 g/dL (6.4-8.3 ) [facility] Comment on above: Note: Responsible Ob food server: CCEV AUTOFILE (3002) Sodium [Moles/Vol] 135 mmol/L (135-144 ) [facility] Comment on above: Note: Responsible Ob food server: CCEV AUTOFILE (3002) Triglyceride [Mass/Vol] 319 mg/dL High (<150 ) [facility] Comment on above: Note: Triglyceride G uidelines:<150 [id number] Lulqrpijgh720-504 High>499 Very highBased on AHA Guidelines for fasting triglyceride, February 2012.Responsible Observer: CCEV AUTOFILE (3002) Urea nitrogen [Mass/Vol] 33 mg/dL High (8-23 ) [facility] Comment on above: Note: Responsible Ob food server: CCEV AUTOFILE (3002) Laboratory - Hematology and Cell countson 07-23-2022 Erythrocyte distribution wid th (RBC) [Ratio] 14.1 % (11.8-14.4 ) [facility] Comment on above: Note: Responsible Ob food server: JC UP (1219) Hematocrit (Bld) [Volume fraction] 43.9 % (36.3-47.1 ) [facility] Comment on above: Note: Responsible Ob food server: JC UP (1219) Hemoglobin (Bld) [Mass/Vol] 14.3 g/dL (11.9-15 .1 ) [facility] Comment on above: Note: Responsible Ob food server: JC UP (1219) MCH (RBC) [Entitic mass] 30.5 pg (25.2-33.5 ) [facility] Comment on above: Note: Responsible Ob food server: JC UP (1219) MCHC (RBC) [Mass/Vol] 32.6 g/dL (28.4-34.8 ) [facility] Comment on above: Note: Responsible Ob food server: CJ UP (121) MCV (RBC) [Entitic vol] 93.6 fL (82.6-102.9 ) [facility] Comment on above: Note: Responsible Ob food server: JC UP (1218) RBC (Bld) [#/Vol] 4.69 10*6/uL (3.95-5.11 ) [facility] Comment on above: Note: Responsible Ob food server: JC UP (1218) WBC (Bld) [#/Vol] 8.4 10*3/uL (3.5-11.3 ) [facility] Comment on above: Note: Responsible Ob food server: JC UP (1218) No Panel Informationon 07-23 Albumin/Glob Ratio 1.3 (1.0-2.5 ) [facility] Comment on above: Note: Responsible Ob food server: CCEV AUTOFILE (3002) Alkaline Phos 116 U/L High (35-104 ) [facility] Comment on above: Note: Responsible Ob food server: CCEV AUTOFILE (3002) NRBC Automated 0.0 per_100_WBC (0.0 ) [facility] Comment on above: Note: Responsible Ob food server: JC UP (1218) Platelet Count See Reflexed IPF Result k/uL (13 8-453 ) [facility] Comment on above: Note: Responsible Ob food server: JC UP (1218) Platelet, Fluoresc. 158 k/uL (138-453 ) [facility] Comment on above: Note: ORDERED BY LAB Responsible Observer: JC UP (1218) PLT, Immature Fract. 4.5 % (1.1-10.3 ) [facility] Comment on above: Note: ORDERED BY LAB Responsible Observer: JC UP (1218) Reported Physicians See Note [facility] Comment on above: Note: Reported Physi cians:Ordering: Sparks, Latia OMARAttending: Sparks, NadiraReferring: Latia Sparks Thyroid Stim. Horm. 1.50 uIU/mL (0.30-5.00 ) [facility] Comment on above: Note: Responsible Ob food server: EV AUTOFILE (3002) Vitamin D 25 [place] 92.8 ng/mL (>29.9 ) [facility] Comment on above: Note: Reference Rang e:Vitamin D status RangeDeficiency <20 ng/mLMild Deficiency 20-30 ng/mLSufficiency 30-100 ng/mLToxicity >100 ng/mLResponsible Observer: CEEV AUTOFILE (3003) MICROALB CREAT RATIO RANDOMo n 07-19-2022 mALB 43.8 mg/L Critically high <=30.0 [facility] Comment on above: Performed By: #### M CRR #### [facility] [address] [address] [address] Shashi Jimenez MALB CR RATIO 326.8 mg/g Critically high 0.0-29.9 [facility] Comment on above: Performed By: #### M CRR #### [facility] [address] [address] [address] Shashi Jimenez MALB CR RATIO RANGE SEE BELOW Normal [facility] Comment on above: Result Comment: NO M ICROALBUMINURIA 0-29 MG/G CLINICAL MICROALBUMINURIA 30-300 MG/G MACROALBUMINURIA >300 MG/G Performed By: #### M CRR #### [facility] [address] [address] [address] Shashi Jimenez URINE CREAT 134.02 mg/dL Normal 20.00-300.00 [facility] Comment on above: Performed By: #### M CRR #### [facility] [address] [address] [address] Shashi Jimenez PROF 14(COMP METB)on 023 Albumin [Mass/Vol] 3.8 g/dL Normal 3.4-5.0 [facility] Comment on above: Performed By: #### C MP #### [facility] [address] [address] [address] Shashi Jimenez Albumin/Globulin [Mass ratio] 1.0 {ratio} Normal [facility] Comment on above: Performed By: #### C MP #### [facility] [address] [place] [address] Dr. Shashi Jimenez ALP [Catalytic activity/Vol] 83 U/L Normal 46-116 [facility] Comment on above: Performed By: #### C MP #### [facility] [address] [place] [address] Dr. Shashi Jimenez ALT [Catalytic activity/Vol] 42 U/L Normal 14-59 [facility] Comment on above: Performed By: #### C MP #### [facility] [address] [place] [address] Dr. Shashi Jimenez Anion gap [Moles/Vol] 14.0 mmol/L Normal [facility] Comment on above: Performed By: #### C MP #### [facility] [address] [place] [address] Dr. Shashi Jimenez AST [Catalytic activity/Vol] 42 U/L Critically high 15 -37 [facility] Comment on above: Performed By: #### C MP #### [facility] [address] [place] [address] Dr. Shashi Jimenez Bilirubin [Mass/Vol] 0.4 mg/dL Normal 0.2-1.0 [facility] Comment on above: Performed By: #### C MP #### [facility] [address] [place] [address] Dr. Shashi Jimenez Calcium [Mass/Vol] 10.8 mg/dL Critically high 8.5-10.1 [facility] Comment on above: Performed By: #### C MP #### [facility] [address] [place] [address] Dr. Shashi Jimenez Chloride [Moles/Vol] 99 mmol/L Normal 98-107 [facility] Comment on above: Performed By: #### C MP #### [facility] [address] [place] [address] Dr. Shashi Jimenez CO2 [Moles/Vol] 27.0 mmol/L Normal 21.0-32.0 [facility] Comment on above: Performed By: #### C MP #### [facility] [address] [address] [address] Shashi Jimenez Creatinine [Mass/Vol] 0.92 mg/dL Normal 0.55-1.02 [facility] Comment on above: Performed By: #### C MP #### [facility] [address] [address] [address] Shashi Jimenez EGFR-AF [place] >60 Normal >=60 [facility] Comment on above: Performed By: #### C MP #### [facility] [address] [address] [address] Shashi Jimenez EGFR-NON AF [place] =60 Normal >=60 [facility] Comment on above: Performed By: #### C MP #### [facility] [address] [place] [address] Dr. Shashi Jimenez Globulin (S) [Mass/Vol] 3.9 g/dL Normal [facility] Comment on above: Performed By: #### C MP #### [facility] [address] [address] [address] Shashi Jimenez Glucose [Mass/Vol] 300 mg/dL Critically high 74-106 [facility] Comment on above: Performed By: #### C MP #### [facility] [address] [address] [address] Shashi Jimenez Potassium [Moles/Vol] 4.0 mmol/L Normal 3.5-5.1 [facility] Comment on above: Performed By: #### C MP #### [facility] [address] [address] [address] Shashi Jimenez Protein [Mass/Vol] 7.7 g/dL Normal 6.4-8.2 [facility] Comment on above: Performed By: #### C MP #### [facility] [address] [address] [address] Shashi Jimenez Sodium [Moles/Vol] 136 mmol/L Normal 136-145 [facility] Comment on above: Performed By: #### C MP #### [facility] [address] [address] [address] Shashi Jimenez Urea nitrogen [Mass/Vol] 20.0 mg/dL Critically high 7.0-18 .0 [facility] Comment on above: Performed By: #### C MP #### [facility] [address] [address] [address] Shashi Jimenez Urea nitrogen/Creatinine [Mass ratio] 21.7 mg/mg Normal [facility] Comment on above: Performed By: #### C MP #### [facility] [address] [address] [address] Shashi Jimenez XR ankle LT min 3V*on 2021 XR ankle LT min 3V* [facility] [place] [address] XRay Report Signed Patient: Tunde Jack MR#: [id number] : 1950 Acct:[id number] Age/Sex: 71 / F ADM Date: 09/21/21 [facility] Attending Dr: Constantine Hernandez MD Ordering Provider: Isidra Hernandez APRN Date of Service: 09/21/21 XR/XR ankle LT min 3V*: T14.90XA Copies to: ANASTACIO Teague MD XR ankle LT min 3V* 09/21/2021 12:53 PM SIGNS AND SYMPTOMS: Twisting injury to left ankle with pain laterally PROTOCOL: Frontal, lateral, and oblique radiographs of the left ankle COMPARISON: None FINDINGS: The bones are in anatomic alignment. There is no evidence of acute displaced fracture. There is soft tissue swelling which is greatest over the lateral malleolus. The ankle mortise is preserved. Calcifications are noted along the Achilles tendon suspicious for a previous Achilles injury. XR/XR ankle LT min 3V* IMPRESSION: No acute displaced fracture. Diffuse soft tissue swelling greatest over the lateral malleolus. Calcifications are noted along the Achilles tendon suspicious for a previous Achilles injury versus calcific tendinosis. Impression dictated by: Desiree Garrett M.D.09/21/2021 1:10 PM Dictation Location: RADIO-PC-13 Transcribed By: PWS 09/21/21 1310 Dictated By: Desiree Garrett II, MD 09/21/21 1308 Signed By: 09/21/21 1346 Normal [facility] XR ankle LT min 3V* [facility] Z2 Other XR ankle LT min 3V* [facility] [employer] Other XR ankle LT min 3V* [address] [employer] Other XR ankle LT min 3V* [place] [address] [facility] [employer] Other XR ankle LT min 3V* XRay Report [facility] [employer] Other XR ankle LT min 3V* Signed [facility] [employer] Other XR ankle LT min 3V* Patient: Sarika Jack rla R MR#: [id number] [facility] Z2 Other XR ankle LT min 3V* 3475 [facility] [employer] Other XR ankle LT min 3V* : 1950 Acct:[id number] [facility] Z2 Other XR ankle LT min 3V* Age/Sex: 71 / F ADM Date: 09/21/21 [facility] Z2 Other XR ankle LT min 3V* Loc: X[facility]CLY [facility]: [facility] Other XR ankle LT min 3V* Attending Dr: Thomas Hernandez MD [facility] Z2 Other XR ankle LT min 3V* Ordering Provider: Kathryn Hernandez APRN [facility] Z2 Other XR ankle LT min 3V* Date of Service: 09/21/21 [employer] Other XR ankle LT min 3V* [id number]) XR/XR ankle LT min 3V*: [id number] [employer] Other XR ankle LT min 3V* Copies to: Isidra kwon APRN [employer] Other XR ankle LT min 3V* Constantine Hernandez MD [employer] Other XR ankle LT min 3V* XR ankle LT min 3V* 09/21/2021 12:53 PM [employer] Other XR ankle LT min 3V* SIGNS AND SYMPTOMS: Twisting injury to left ankle with pain laterally [employer] Other XR ankle LT min 3V* PROTOCOL: Frontal, l ateral, and oblique radiographs of the left ankle [employer] Other XR ankle LT min 3V* COMPARISON: None [employer] Other XR ankle LT min 3V* FINDINGS: [employer] Other XR ankle LT min 3V* The bones are in kari tomic alignment. There is no evidence of acute displaced fracture. There is [employer] Other XR ankle LT min 3V* soft tissue swelling which is greatest over the lateral malleolus. The ankle mortise is preserved. [employer] Other XR ankle LT min 3V* Calcifications are n oted along the Achilles tendon suspicious for a previous Achilles injury. [employer] Other XR ankle LT min 3V* X R/XR ankle LT min 3V* [employer] Other XR ankle LT min 3V* IMPRESSION: [employer] Other XR ankle LT min 3V* No acute displaced fracture. [employer] Other XR ankle LT min 3V* Diffuse soft tissue swelling greatest over the lateral malleolus. [employer] Other XR ankle LT min 3V* Calcifications are n oted along the Achilles tendon suspicious for a previous Achilles injury versus [employer] Other XR ankle LT min 3V* calcific tendinosis. [employer] Other XR ankle LT min 3V* Impression dictated by: Desiree Garrett M.D.09/21/2021 1:10 PM [employer] Other XR ankle LT min 3V* Dictation Location: [address] [employer] Other XR ankle LT min 3V* Transcribed By: MELODY 09/21/21 1310 [employer] Other XR ankle LT min 3V* Dictated By: Desiree Garrett II, MD 09/21/21 1308 [employer] Other XR ankle LT min 3V* Signed By: 09/21/21 1346 [employer] Other ED PROV NOTEon 02-27-2019 ED PROV NOTE HNO ID: [id number] Author: Nargis Raman Service: ? Author Type: Physician Type: ED Provider Notes Filed: 03/01/2019 1:58 AM Note Text: [place] [address] HEALTH INFORMATION MANAGEMENT EMERGENCY DEPARTMENT REPORT Patient: TUNDE JACK DANISHA,NARGIS Simon D.O. [id number] [age] F Status: DEP ER ED Date of Service: 02/27/19 CHIEF COMPLAINT: Right-sided low back pain, shooting down her leg. ALLERGIES: Penicillin, Haldol, risperidone, Mellaril, Topamax, tai. SOCIAL HISTORY: She smokes 3rd of a pack of cigarettes per day. PAST SURGICAL HISTORY: Hysterectomy, cholecystectomy, bilateral tubal ligation, hernia repair. PAST MEDICAL HISTORY: Significant for hypertension, diabetes, chronic back pain, elevated cholesterol. MEDICATION: List was reviewed by me. Please see list. HISTORY OF PRESENT ILLNESS: The patient is a 68-year-old female, presenting to Emergency Department with chief complaint of low back pain. She states that it started about 2 nights ago. She states she was lying in bed and rolling all night. She states she could not get comfortable. She states she was tossing and turning. She states she did not injure herself really, but her back pain flared up. She states she has had back pain before. She states it shoots down her right leg all the way down to her foot. She denies any loss of bowel or bladder function. She denies any dysuria, frequency, urgency. She denies any chest pain or shortness of breath. She has no other associated symptoms at this time. She states it is worse when she moves. REVIEW OF SYSTEMS: A 10-point review of system was performed and negative except for HPI. PHYSICAL EXAMINATION: GENERAL: The patient is alert and appeared to be in no acute distress. VITAL SIGNS: Stable vital signs. HEENT: The head was normocephalic, atraumatic. Eyes; pupils equal, round, reactive to light with normal conjunctivae. ENT; the oral mucosa moist. HEART: Regular rate and rhythm with no murmurs, gallops or rubs. LUNGS: Clear to auscultation bilaterally. No wheeze or rhonchi. ABDOMEN: Soft and nontender. EXTREMITIES: There is no lower extremity edema. She had positive straight leg redness on the right side. She has strong peripheral pulses. Normal distal sensation, capillary refill. She had +2/4 patellar and Achilles reflexes, equal and symmetric bilaterally. She did have right-sided paraspinal muscle tenderness and right SI joint tenderness to palpation. EMERGENCY DEPARTMENT CLINICAL COURSE: The patient was hemodynamically stable, nonseptic and nontoxic while here in the Emergency Department. Her symptoms seem to be musculoskeletal in nature. They are worse when she moves. I did get an x-ray of her lumbar spine, which was unremarkable. She was given a dose of Toradol as well as Norflex here in the Emergency Department. At this point, I do not suspect cauda equina, epidural abscess, transverse myelitis, or acute diskitis. I do not suspect aortic dissection or aortic aneurysm. I do not think any further tests or imaging is required on the patient at this time. I am going to discharge her home with prescription for muscle relaxer as well as an anti-inflammatory. She is to follow up with her doctor and she is to return if symptoms worsen or new symptoms develop. IMPRESSION: Lumbar strain with radiculopathy. DISPOSITION: The patient will be discharged home. 03/01/19 0154 NARGIS RAMAN D.O. cc: NARGIS RAMAN D.O. << Signature on File>> Reported By: NARGIS RAMAN D.O. Signed By: NARGIS RAMAN D.O. Tests performed at: [address] [address] Normal [facility] EMERGENCY DEPARTMENT REPORTo n 02-27-2019 EMERGENCY [place] [address] HEALTH INFORMATION MANAGEMENT EMERGENCY DEPARTMENT REPORT Patient: TUNDE JACK NARGIS RAMAN D.O. [id number] [age] F Status: DEP ER ED Date of Service: 02/27/19 CHIEF COMPLAINT: Right-sided low back pain, shooting down her leg. ALLERGIES: Penicillin, Haldol, risperidone, Mellaril, Topamax, tai. SOCIAL HISTORY: She smokes 3rd of a pack of cigarettes per day. PAST SURGICAL HISTORY: Hysterectomy, cholecystectomy, bilateral tubal ligation, hernia repair. PAST MEDICAL HISTORY: Significant for hypertension, diabetes, chronic back pain, elevated cholesterol. MEDICATION: List was reviewed by me. Please see list. HISTORY OF PRESENT ILLNESS: The patient is a 68-year-old female, presenting to Emergency Department with chief complaint of low back pain. She states that it started about 2 nights ago. She states she was lying in bed and rolling all night. She states she could not get comfortable. She states she was tossing and turning. She states she did not injure herself really, but her back pain flared up. She states she has had back pain before. She states it shoots down her right leg all the way down to her foot. She denies any loss of bowel or bladder function. She denies any dysuria, frequency, urgency. She denies any chest pain or shortness of breath. She has no other associated symptoms at this time. She states it is worse when she moves. REVIEW OF SYSTEMS: A 10-point review of system was performed and negative except for HPI. PHYSICAL EXAMINATION: GENERAL: The patient is alert and appeared to be in no acute distress. VITAL SIGNS: Stable vital signs. HEENT: The head was normocephalic, atraumatic. Eyes; pupils equal, round, reactive to light with normal conjunctivae. ENT; the oral mucosa moist. HEART: Regular rate and rhythm with no murmurs, gallops or rubs. LUNGS: Clear to auscultation bilaterally. No wheeze or rhonchi. ABDOMEN: Soft and nontender. EXTREMITIES: There is no lower extremity edema. She had positive straight leg redness on the right side. She has strong peripheral pulses. Normal distal sensation, capillary refill. She had +2/4 patellar and Achilles reflexes, equal and symmetric bilaterally. She did have right-sided paraspinal muscle tenderness and right SI joint tenderness to palpation. EMERGENCY DEPARTMENT CLINICAL COURSE: The patient was hemodynamically stable, nonseptic and nontoxic while here in the Emergency Department. Her symptoms seem to be musculoskeletal in nature. They are worse when she moves. I did get an x-ray of her lumbar spine, which was unremarkable. She was given a dose of Toradol as well as Norflex here in the Emergency Department. At this point, I do not suspect cauda equina, epidural abscess, transverse myelitis, or acute diskitis. I do not suspect aortic dissection or aortic aneurysm. I do not think any further tests or imaging is required on the patient at this time. I am going to discharge her home with prescription for muscle relaxer as well as an anti-inflammatory. She is to follow up with her doctor and she is to return if symptoms worsen or new symptoms develop. IMPRESSION: Lumbar strain with radiculopathy. DISPOSITION: The patient will be discharged home. 03/01/19 0154 RAMAN,NARGIS B D.O. cc: NARGIS RAMAN D.O. << Signature on File>> Reported By: NARGIS RAMAN D.O. Signed By: NARGIS RAMAN D.O. Tests performed at: [place] [address] Normal [facility] LUMBAR LIMITED 2Von 02-28-20 19 LUMBAR LIMITED 2V [place] [address] Name: TUNDE JACK Phys: NARGIS RAMAN D.O. : [birth year] Age: 68 Sex: F Acct: [id number] Loc: ED Exam Date: 02/27/19 Status: REG ER Radiology No.: [id number] Unit Number: [id number] Exam # Type/Exam [id number] RAD / LUMBAR LIMITED 2V EXAM DESCRIPTION: LUMBAR LIMITED 2V CLINICAL HISTORY: Comparisons: Lumbar spine, June 23, 2008. FINDINGS: 3 views of the lumbar spine were obtained. Vertebral body height and alignment are normal without evidence of fracture or listhesis. There is a decrease within all of the disc space heights with adjacent endplate hypertrophy. Posterior facet arthropathy is noted throughout the lumbar spine.. Evaluation of the soft tissues is without radiographic abnormality. Stimulator device is partially visualized. IMPRESSION: Mild degenerative changes throughout the lumbar spine. Electronically signed by: Leah Kirkpatrick MD 02/27/2019 7:48 PM CDT < > Reported By: LEAH KIRKPATRICK M.D. Signed In PowerScribe By: LEAH KIRKPATRICK M.D. << Signature on File>> Reported By: LEAH KIRKPATRICK M.D. Signed By: LEAH KIRKPATRICK M.D. Tests performed at: [place] [address] [facility] ED PROV NOTEon 01-23-2019 ED PROV NOTE HNO ID: [id number] Author: Desiree May Service: ? Author Type: Physician Type: ED Provider Notes Filed: 01/28/2019 2:46 PM Note Text: [place] [address] HEALTH INFORMATION MANAGEMENT EMERGENCY DEPARTMENT REPORT Patient: TUNDE JACK LORIDESIREE Henry M.D. [id number] [age] F Status: [facility] ER ED Date of Service: 01/22/19 CHIEF COMPLAINT Abdominal pain. HISTORY OF PRESENT ILLNESS This is a 68-year-old white female presents with the above complaints. She has abdominal pain for the last 2 days, especially today. She has had some nausea, vomiting, some diarrhea as well. She states it felt similar to pain she had with her ulcer although this was years ago, so she is not certain. The patient states the pain is across her abdomen, radiates to her back. Does not report any black or bloody stool. The patient does not report any chest pain. No reported shortness of breath. ALLERGIES Penicillin, haloperidol, topiramate, Mellaril. SOCIAL HISTORY Patient is . She is a ebnu-vkpj-a-day smoker. PAST SURGICAL HISTORY Appendectomy, cholecystectomy, hysterectomy. PAST MEDICAL HISTORY Diabetes, schizoaffective disorder, hypercholesterolemia, bipolar disorder. FAMILY HISTORY Hypertension, stroke, cancer. REVIEW SYSTEMS All 10 systems reviewed and negative. PHYSICAL EXAMINATION Vital signs stable. This is a well-appearing female resting quietly in no apparent distress, nontoxic in appearance. HEENT is normocephalic, atraumatic. Eyes and pupils grossly normal. Sclerae anicteric. Neck is supple. There is no meningismus or stridor. There is no difficulty swallowing or drooling. The patient has abdominal tenderness to palpation in mid and upper lower quadrants of the abdomen. Bowel sounds are normal to hyperactive. There is equivocal distension. No obvious organomegaly. Extremities with good peripheral pulses. Skin is without rash. No petechiae or purpura. Neurologic exam: Jacques Coma Scale is 15. No gross focal deficit. EMERGENCY DEPARTMENT COURSE Patient has signs and symptoms here of abdominal pain. Will obtain some labs here. Differential diagnosis includes bowel obstruction, muscle strain, pancreatitis, peptic ulcer disease. The patient's labs and plain films unremarkable. Given her age, history, smoking history, diabetic history, I did feel the incidence of something more significant was certainly higher in this case and did elect to do a CT scan with p.o. and IV contrast. CT scan is reviewed as negative. The patient appears better. Had some recurrent nausea. This was treated with Zofran. Has had no further vomiting. My suspicion at this point this is likely peptic ulcer disease related issue. I am going to place her on proton pump inhibition, antiemetics. I do not find any surgical cause for abdominal pain. IMPRESSION Nonsurgical abdominal pain. 01/28/19 1441 DESIREE MAY M.D. cc: ILIA EMANUEL M.D.; DESIREE MAY M.D. << Signature on File>> Reported By: DESIREE MAY M.D. Signed By: DESIREE MAY M.D. Tests performed at: [address] [address] Normal [facility] EMERGENCY DEPARTMENT REPORTo n 01-23-2019 EMERGENCY [place] [address] HEALTH INFORMATION MANAGEMENT EMERGENCY DEPARTMENT REPORT Patient: TUNDE JACK DESIREE MAY M.D. [id number] [age] F Status: DEP ER ED Date of Service: 01/22/19 CHIEF COMPLAINT Abdominal pain. HISTORY OF PRESENT ILLNESS This is a 68-year-old white female presents with the above complaints. She has abdominal pain for the last 2 days, especially today. She has had some nausea, vomiting, some diarrhea as well. She states it felt similar to pain she had with her ulcer although this was years ago, so she is not certain. The patient states the pain is across her abdomen, radiates to her back. Does not report any black or bloody stool. The patient does not report any chest pain. No reported shortness of breath. ALLERGIES Penicillin, haloperidol, topiramate, Mellaril. SOCIAL HISTORY Patient is . She is a mpdf-csyj-y-day smoker. PAST SURGICAL HISTORY Appendectomy, cholecystectomy, hysterectomy. PAST MEDICAL HISTORY Diabetes, schizoaffective disorder, hypercholesterolemia, bipolar disorder. FAMILY HISTORY Hypertension, stroke, cancer. REVIEW SYSTEMS All 10 systems reviewed and negative. PHYSICAL EXAMINATION Vital signs stable. This is a well-appearing female resting quietly in no apparent distress, nontoxic in appearance. HEENT is normocephalic, atraumatic. Eyes and pupils grossly normal. Sclerae anicteric. Neck is supple. There is no meningismus or stridor. There is no difficulty swallowing or drooling. The patient has abdominal tenderness to palpation in mid and upper lower quadrants of the abdomen. Bowel sounds are normal to hyperactive. There is equivocal distension. No obvious organomegaly. Extremities with good peripheral pulses. Skin is without rash. No petechiae or purpura. Neurologic exam: Jacques Coma Scale is 15. No gross focal deficit. EMERGENCY DEPARTMENT COURSE Patient has signs and symptoms here of abdominal pain. Will obtain some labs here. Differential diagnosis includes bowel obstruction, muscle strain, pancreatitis, peptic ulcer disease. The patient's labs and plain films unremarkable. Given her age, history, smoking history, diabetic history, I did feel the incidence of something more significant was certainly higher in this case and did elect to do a CT scan with p.o. and IV contrast. CT scan is reviewed as negative. The patient appears better. Had some recurrent nausea. This was treated with Zofran. Has had no further vomiting. My suspicion at this point this is likely peptic ulcer disease related issue. I am going to place her on proton pump inhibition, antiemetics. I do not find any surgical cause for abdominal pain. IMPRESSION Nonsurgical abdominal pain. 01/28/19 1441 DESIREE MAY M.D. cc: ILIA EMANUEL M.D.; DESIREE MAY M.D. << Signature on File>> Reported By: DESIREE MAY M.D. Signed By: DESIREE MAY M.D. Tests performed at: [address] [address] Normal [facility] ABDOMEN MULTIPLE VIEWSon ABDOMEN MULTIPLE VIEWS [address] [address] Name: TUNDE JACK Erika Phys: DESIREE MAY M.D. : [birth year] Age: 68 Sex: F Acct: [id number] Loc: ED Exam Date: 01/22/19 Status: REG ER Radiology No.: [id number] Unit Number: [id number] Exam # Type/Exam [id number] RAD / ABDOMEN MULTIPLE VIEWS XR ABDOMEN 2 VIEWS SUPINE ERECT CLINICAL STATEMENT: Abdominal pain COMPARISON: None FINDINGS: No pathologic calcifications are seen. The abdominal bowel gas pattern is nonobstructive. No dilated bowel or air-fluid levels. There is no pneumoperitoneum. No visceromegaly or mass effect is seen. Calcified phleboliths are present in the right hemipelvis. Cholecystectomy clips and a spinal cord stimulator are present. Osseous structures appear intact. IMPRESSION: No acute process seen. Electronically signed by: Hua Plata MD 01/22/2019 12:48 PM CDT < > Reported By: HUA PLATA M.D. Signed In PowerScribe By: HUA PLATA M.D. << Signature on File>> Reported By: HUA PLATA M.D. Signed By: HUA PLATA M.D. Tests performed at: [address] [address] Normal [facility] BMPon 01-22-2019 Anion gap [Moles/Vol] 16.0 mmol/L Normal 15-22 [facility] Comment on above: Performed By: #### L 100.0350, L100.0030, L100.0010 #### [facility] [address] [place] [address] Calcium [Mass/Vol] 10.5 mg/dL High 8.8-10.2 [facility] Comment on above: Performed By: #### L 100.0350, L100.0030, L100.0010 #### [facility] - [facility]AT[facility] [address] [place] [address] Chloride [Moles/Vol] 99 mmol/L Normal 98-107 [facility] Comment on above: Performed By: #### L 100.0350, L100.0030, L100.0010 #### [facility] [address] [place] [address] CO2 [Moles/Vol] 26 mmol/L Normal 22-29 [facility] Comment on above: Performed By: #### L 100.0350, L100.0030, L100.0010 #### [facility] [address] [place] [address] Creatinine [Mass/Vol] 0.90 mg/dL Normal 0.50-0.90 [facility] Comment on above: Performed By: #### L 100.0350, L100.0030, L100.0010 #### - LABORATORY [address] [place] [address] eGFR if AFR MARICEL > 60 ml/min/1.73m2 Normal [facility] Comment on above: Result Comment: eGFR >= 60 Indicates normal kidney function. * eGFR IS AN ESTIMATE * (AFR MARICEL = ) (non-AFR AM = NON-) MDRD calculation used in the eGFR should not be used to dose medications. For further limitations of the eGFR please refer to the Physician Website or the National Kidney Disease Education Program website (www.nkdep.nih.gov). Performed By: #### L 100.0350, L100.0030, L100.0010 #### [facility] [address] [place] [address] eGFR nonAFR Maricel > 60 ml/Min/1.73m2 Normal [facility] Comment on above: Performed By: #### L 100.0350, L100.0030, L100.0010 #### [facility] [address] [place] [address] Glucose [Mass/Vol] 212 mg/dL High 82-115 [facility] Comment on above: Performed By: #### L 100.0350, L100.0030, L100.0010 #### [facility] [address] [place] [address] Potassium [Moles/Vol] 4.0 mmol/L Normal 3.5-5.0 [facility] Comment on above: Performed By: #### L 100.0350, L100.0030, L100.0010 #### [facility] [address] [place] [address] Sodium [Moles/Vol] 137 mmol/L Normal 135-145 [facility] Comment on above: Performed By: #### L 100.0350, L100.0030, L100.0010 #### [facility] [address] [place] [address] Urea nitrogen [Mass/Vol] 24 mg/dL High 8-23 [facility] Comment on above: Performed By: #### L 100.0350, L100.0030, L100.0010 #### [facility] [address] [place] [address] CBCon 01-22-2019 Basophils (Bld) [#/Vol] 0.00 x10(3) Normal 0.00-0.10 [facility] Comment on above: Performed By: #### L 200.0010 #### [facility] [address] [place] [address] Basophils/100 WBC (Bld) 0.3 % Normal 0.0-1.0 [facility] Comment on above: Performed By: #### L 200.0010 #### [facility] [address] [place] [address] Eosinophils (Bld) [#/Vol] 0.20 x10(3) Normal 0.00-0.54 [facility] Comment on above: Performed By: #### L 200.0010 #### [facility] [address] [place] [address] Eosinophils/100 WBC (Bld) 3.0 % Normal 0.5-4.9 [facility] Comment on above: Performed By: #### L 200.0010 #### [facility] [address] [place] [address] Erythrocyte distribution wid th (RBC) [Ratio] 13.7 % Normal 12.5-15.7 [facility] Comment on above: Performed By: #### L 200.0010 #### [facility] [address] [place] [address] Hematocrit (Bld) [Volume fraction] 45.9 % Normal 3 6.0-48.0 [facility] Comment on above: Performed By: #### L 200.0010 #### [facility] [address] [place] [address] Hemoglobin (Bld) [Mass/Vol] 15.5 g/dL Normal 12.0-16. 0 [facility] Comment on above: Performed By: #### L 200.0010 #### [facility] [address] [place] [address] Lymphocytes (Bld) [#/Vol] 1.70 x10(3) Normal 1.00-3.50 [facility] Comment on above: Performed By: #### L 200.0010 #### [facility] [address] [place] [address] Lymphocytes/100 WBC (Bld) 22.1 % Normal 16.0-48.0 [facility] Comment on above: Performed By: #### L 200.0010 #### [facility] [address] [place] [address] MCH (RBC) [Entitic mass] 30.9 pg Normal 28.5-32.9 [facility] Comment on above: Performed By: #### L 200.0010 #### [facility] [address] [place] [address] MCHC (RBC) [Mass/Vol] 33.8 g/dL Normal 33.0-36.0 [facility] Comment on above: Performed By: #### L 200.0010 #### [facility] [address] [place] [address] MCV (RBC) [Entitic vol] 91.3 fL Normal 80.0-99.0 [facility] Comment on above: Performed By: #### L 200.0010 #### [facility] [address] [place] [address] Monocytes (Bld) [#/Vol] 0.60 x10(3) Normal 0.30-0.80 [facility] Comment on above: Performed By: #### L 200.0010 #### [facility] - [facility] [address] [place] [address] Monocytes/100 WBC (Bld) 8.3 % Normal 4.3-11.2 [facility] Comment on above: Performed By: #### L 200.0010 #### [facility] - [facility] [address] [place] [address] Neutrophils (Bld) [#/Vol] 5.10 x10(3) Normal 1.40-6.50 [facility] Comment on above: Performed By: #### L 200.0010 #### [facility] [address] [place] [address] Neutrophils/100 WBC (Bld) 66.3 % Normal 45.0-73.0 [facility] Comment on above: Performed By: #### L 200.0010 #### [facility] [address] [place] [address] Platelet mean volume (Bld) [ Entitic vol] 8.2 fL Normal 7.5-9.5 [facility] Comment on above: Performed By: #### L 200.0010 #### [facility] [address] [place] [address] Platelets (Bld) [#/Vol] 124 X10(3) Low 150-450 [facility] Comment on above: Performed By: #### L 200.0010 #### [facility] [address] [place] [address] RBC (Bld) [#/Vol] 5.02 x10(6) High 3.30-5.00 [facility] Comment on above: Performed By: #### L 200.0010 #### [facility] [address] [place] [address] WBC (Bld) [#/Vol] 7.7 x10(3) Normal 4.5-10.0 [facility] Comment on above: Performed By: #### L 200.0010 #### [facility] - LAB[facility]ATORY [address] [place] [address] ABD/PEL W CONTRASTon CT ABD/PEL W CONTRAST [address] [address] Name: MICKEYTUNDE R Phys: DESIREE MAY M.D. : [birth year] Age: 68 Sex: F Acct: [id number] Loc: ED Exam Date: 01/22/19 Status: REG Radiology No.: [id number] Unit Number: [id number] Exam # Type/Exam [id number] CT / CT ABD/PEL W CONTRAST CT Abdomen and Pelvis with IV and oral contrast enhancement Clinical Statement: Abdominal pain, diarrhea, prior cholecystectomy, hysterectomy Comparison: 11/22/2017 Technique: Axial images were obtained from the lung bases through the pubic symphysis. Coronal and sagittal reformatted images were generated from the axial dataset. This exam was performed according to our departmental dose optimization program, and includes the following measures where applicable: automated exposure control, adjustment of the mAs and/or kVp according to patient size and/or exam, and an iterative reconstruction algorithm. Findings: Mild fatty infiltration of the liver is again seen. The pancreas is atrophic. The spleen is unremarkable. No bowel dilatation, ascites, or pneumoperitoneum is seen. The appendix is not definitely seen, but no evidence of appendicitis. There are scattered abdominal lymph nodes, but no significantly enlarged node by CT criteria is seen. No aortic aneurysm. The kidneys show no hydronephrosis. The urinary bladder is unremarkable. A spinal stimulator is again noted. Areas of skin thickening and soft tissue stranding overlying the anterior abdominal wall are unchanged. IMPRESSION: No acute process. No significant change. Electronically signed by: Chi Castaneda MD 01/22/2019 3:46 PM CDT < > Reported By: CHI CASTANEDA D.O. Signed In PowerScribe By: CHI CASTANEDA D.O. << Signature on File>> Reported By: CHI CASTANEDA D.O. Signed By: CHI CASTANEDA D.O. Tests performed at: [address] [address] Normal [facility] HEPATIC PANELon 01-22-2019 A:G RATIO 1.32 Normal 1.1-2.5 [facility] Comment on above: Performed By: #### L 100.0350, L100.0030, L100.0010 #### [facility] [address] [place] [address] Albumin [Mass/Vol] 4.1 g/dL Normal 3.5-5.2 [facility] Comment on above: Performed By: #### L 100.0350, L100.0030, L100.0010 #### [facility] [address] [place] [address] ALK. PHOS 79 U/L Normal 35-105 [facility] Comment on above: Performed By: #### L 100.0350, L100.0030, L100.0010 #### [facility] [address] [place] [address] 19441 ALT [Catalytic activity/Vol] 23 U/L Normal 5-33 [facility] Comment on above: Performed By: #### L 100.0350, L100.0030, L100.0010 #### [facility] [address] [place] [address] 18370 AST [Catalytic activity/Vol] 23 U/L Normal 5-32 [facility] Comment on above: Performed By: #### L 100.0350, L100.0030, L100.0010 #### [facility] [address] [place] [address] 16858 Bilirubin Ql (U) 0.3 mg/dL Normal 0.2-1.2 [facility] Comment on above: Performed By: #### L 100.0350, L100.0030, L100.0010 #### [facility] - [facility] [address] [place] [address] DIRECT BILIRUBI <0.2 Normal 0.0-0.3 [facility] Comment on above: Performed By: #### L 100.0350, L100.0030, L100.0010 #### [facility] - [facility] [address] [place] [address] Globulin (S) [Mass/Vol] 3.1 g/dL Normal 1.5-4.5 [facility] Comment on above: Performed By: #### L 100.0350, L100.0030, L100.0010 #### [facility] [address] [place] [address] 06[address] Protein [Mass/Vol] 7.2 g/dL Normal 6.4-8.3 [facility] Comment on above: Performed By: #### L 100.0350, L100.0030, L100.0010 #### [facility] [address] [place] [address] LIPASEon 01-22-2019 Lipase [Catalytic activity/Vol] 44 U/L Normal 13-6 0 [facility] Comment on above: Performed By: #### L 100.0350, L100.0030, L100.0010 #### [facility] - [facility] [address] [place] [address] 278[address] URINALYSISon 01-22-2019 Bilirubin Ql (U) Negative Normal NEGATIVE [facility] Comment on above: Order Comment: Urine Specimen Source+ CLEAN CATCH Performed By: #### L 200.3000 #### ML [facility] [address] [place] [address] Color (U) YELLOW Normal YELLOW [facility] Comment on above: Order Comment: Urine Specimen Source+ CLEAN CATCH Performed By: #### L 200.3000 #### [facility] [facility] [address] [place] [address] 43743 Glucose Ql (U) >=1000 Normal NEGATIVE [facility] Comment on above: Order Comment: Urine Specimen Source+ CLEAN CATCH Performed By: #### L 200.3000 #### ML - LABORATORY [address] [place] [address] 48207 Hemoglobin Ql (U) TRACE-INTACT Normal NEGATIVE [facility] Comment on above: Order Comment: Urine Specimen Source+ CLEAN CATCH Performed By: #### L 200.3000 #### ML [facility] [address] [place] [address] 35695 Leukocyte esterase Test stri p Ql (U) Negative Normal NEGATIVE [facility] Comment on above: Order Comment: Urine Specimen Source+ CLEAN CATCH Performed By: #### L 200.3000 #### ML - [facility] [address] [place] [address] 68060 Nitrite Ql (U) Negative Normal NEGATIVE [facility] Comment on above: Order Comment: Urine Specimen Source+ CLEAN CATCH Performed By: #### L 200.3000 #### ML - [facility] [address] [place] [address] 75355 pH (U) 5.5 [pH] Normal 5.0-8.0 [facility] Comment on above: Order Comment: Urine Specimen Source+ CLEAN CATCH Performed By: #### L 200.3000 #### ML - [facility] [address] [place] [address] 93834 Protein Ql (U) Negative Normal NEGATIVE [facility] Comment on above: Order Comment: Urine Specimen Source+ CLEAN CATCH Performed By: #### L 200.3000 #### ML - [facility] [address] [place] [address] 97552 URINE APPEARANC CLEAR Normal CLEAR [facility] Comment on above: Order Comment: Urine Specimen Source+ CLEAN CATCH Performed By: #### L 200.3000 #### ML - [facility] [address] [place] [address] 51799 URINE KETONE Negative Normal NEGATIVE [facility] Comment on above: Order Comment: Urine Specimen Source+ CLEAN CATCH Performed By: #### L 200.3000 #### ML - [facility] [address] [place] [address] 78447 URINE SPECIFIC <=1.005 Normal 1.001-1.035 [facility] Comment on above: Order Comment: Urine Specimen Source+ CLEAN CATCH Performed By: #### L 200.3000 #### ML - [facility] [address] [place] [address] 24242 URINE UROBILINO 0.2 EU/DL Normal 0.2-1.0 [facility] Comment on above: Order Comment: Urine Specimen Source+ CLEAN CATCH Performed By: #### L 200.3000 #### ML - [facility] [address] [place] [address] 99451 [id number] 01-15-2019 HbA1c (Bld) [Mass fraction] 7.2 % High 4.3-6.1 [facility] Comment on above: Result Comment: Estimated Average Glucose: HgbA1C % mg/dL 4.0 68 5.0 97 6.0 125 7.0 154 8.0 183 9.0 212 10.0 240 Source: [employer] Association web site, 2017. Performed By: #### L 200.2000 #### ML - LABORATORY [address] [place] [address] 19468 LIPID PANELon 01-15-2019 Cholesterol [Mass/Vol] 158 mg/dL Normal 130-200 [facility] Comment on above: Order Comment: ADD O N Performed By: #### L 100.0040 #### ML - LABORATORY [address] [place] [address] 15940 Cholesterol in HDL [Mass/Vol] 30 mg/dL [facility] Comment on above: Order Comment: ADD O N Result Comment: Mil[place] onal Cholesterol Education Program (NCEP) guidelines: <40 mg/dL: Low HDL-Cholesterol(major risk factor for CHD) > or = 60 mg/dL: High HDL-Cholesterol(negative risk factor for CHD) HDL-cholesterol is affected by a number of factors, e.g., smoking, exercise, hormones, sex, and age. 4th Generation Test; Results may be approximately 7% lower than previous values. Performed By: #### L 100.0040 #### ML - LABORATORY [address] [place] [address] 45091 Cholesterol in LDL [Mass/Vol] 55 mg/dL [facility] Comment on above: Order Comment: ADD O N Result Comment: LDL: OPTIMAL FOR PEOPLE AT VERY HIGH RISK <70 OPTIMAL <100 NEAR OPTIMAL 100-129 BORDERLINE HIGH 130-159 HIGH 160-189 VERY HIGH >=190 Source: 2009 NCEP ATP III, ADA Guidelines Reviewed: August, Performed By: #### L 100.0040 #### ML - [facility] [address] [place] [address] 37121 Cholesterol in LDL/Cholester ol in HDL [Mass ratio] 1.8 [facility] Comment on above: Order Comment: ADD O N Performed By: #### L 100.0040 #### ML - LABORATORY [address] [place] [address] 35632 Cholesterol in VLDL [Mass/Vol] 73 mg/dL High 6-40 [facility] Comment on above: Order Comment: ADD O N Performed By: #### L 100.0040 #### ML - LABORATORY [address] [place] [address] 17762 Triglyceride [Mass/Vol] 365 mg/dL Normal U [facility] Comment on above: Order Comment: ADD O N Result Comment: TRIG : DESIRABLE: <150 mg/dL Performed By: #### L 100.0040 #### ML - LABORATORY [address] [place] [address] 63992 Hoda 01-14-2019 ALT [Catalytic activity/Vol] 29 U/L Normal -33 [facility] Comment on above: Performed By: #### L 100.0010, L100.0240, L100.0250 #### ML - LABORATORY [address] [place] [address] 40406 Genesis 01-14-2019 AST [Catalytic activity/Vol] 30 U/L Normal -32 [facility] Comment on above: Performed By: #### L 100.0010, L100.0240, L100.0250 #### ML - LABORATORY [address] [place] [address] 53078 BMPon 01-14-2019 Anion gap [Moles/Vol] 16.6 mmol/L Normal 15-22 [facility] Comment on above: Performed By: #### L 100.0010, L100.0240, L100.0250 #### ML - LABORATORY [address] [place] [address] 60318 Calcium [Mass/Vol] 10.3 mg/dL High 8.8-10.2 [facility] Comment on above: Performed By: #### L 100.0010, L100.0240, L100.0250 #### ML - LABORATORY [address] [place] [address] 98851 Chloride [Moles/Vol] 98 mmol/L Normal 98-107 [facility] Comment on above: Performed By: #### L 100.0010, L100.0240, L100.0250 #### ML - LABORATORY [address] [place] [address] CO2 [Moles/Vol] 28 mmol/L Normal 22-29 [facility] Comment on above: Performed By: #### L 100.0010, L100.0240, L100.0250 #### ML - LABORATORY [address] [place] [address] 24329 Creatinine [Mass/Vol] 0.74 mg/dL Normal 0.50-0.90 [facility] Comment on above: Performed By: #### L 100.0010, L100.0240, L100.0250 #### ML - LABORATORY [address] [place] [address] 88724 eGFR if AFR MARICEL > 60 ml/min/1.73m2 Normal [facility] Comment on above: Result Comment: eGFR >= 60 Indicates normal kidney function. * eGFR IS AN ESTIMATE * (AFR MARICEL = ) (non-AFR AM = NON-) MDRD calculation used in the eGFR should not be used to dose medications. For further limitations of the eGFR please refer to the Physician Website or the National Kidney Disease Education Program website (www.nkdep.nih.gov). Performed By: #### L 100.0010, L100.0240, L100.0250 #### ML - LABORATORY [address] [place] [address] eGFR nonAFR Maricel > 60 ml/Min/1.73m2 Normal [facility] Comment on above: Performed By: #### L 100.0010, L100.0240, L100.0250 #### ML - LABORATORY [address] [place] [address] 05226 Glucose [Mass/Vol] 208 mg/dL High 82-115 [facility] Comment on above: Performed By: #### L 100.0010, L100.0240, L100.0250 #### ML - LABORATORY [address] [place] [address] 80963 Potassium [Moles/Vol] 4.6 mmol/L Normal 3.5-5.0 [facility] Comment on above: Performed By: #### L 100.0010, L100.0240, L100.0250 #### ML - LABORATORY [address] [place] [address] 44650 Sodium [Moles/Vol] 138 mmol/L Normal 135-145 [facility] Comment on above: Performed By: #### L 100.0010, L100.0240, L100.0250 #### ML - LABORATORY [address] [place] [address] 92106 Urea nitrogen [Mass/Vol] 16 mg/dL Normal 8-23 [facility] Comment on above: Performed By: #### L 100.0010, L100.0240, L100.0250 #### ML - LABORATORY [address] [place] [address] 73260 [facility] 11-12-2018 Anion gap [Moles/Vol] 19.0 mmol/L Normal 15-22 [facility] Comment on above: Performed By: #### L 100.0010 #### ML - LABORATORY [address] [place] [address] 59587 Calcium [Mass/Vol] 10.0 mg/dL Normal 8.8-10.2 [facility] Comment on above: Performed By: #### L 100.0010 #### ML - LABORATORY [address] [place] [address] 93199 Chloride [Moles/Vol] 97 mmol/L Low 98-107 [facility] Comment on above: Performed By: #### L 100.0010 #### ML - LABORATORY [address] [place] [address] 67783 CO2 [Moles/Vol] 26 mmol/L Normal 22-29 [facility] Comment on above: Performed By: #### L 100.0010 #### ML - LABORATORY [address] [place] [address] 26212 Creatinine [Mass/Vol] 0.98 mg/dL High 0.50-0.90 [facility] Comment on above: Performed By: #### L 100.0010 #### [facility] [address] [place] [address] 73007 eGFR if AFR MARICEL > 60 ml/min/1.73m2 Normal [facility] Comment on above: Result Comment: eGFR >= 60 Indicates normal kidney function. * eGFR IS AN ESTIMATE * (AFR MARICEL = ) (non-AFR AM = NON-) MDRD calculation used in the eGFR should not be used to dose medications. For further limitations of the eGFR please refer to the Physician Website or the National Kidney Disease Education Program website (www.nkdep.nih.gov). Performed By: #### L 100.0010 #### ML [facility] [address] [place] [address] 86694 eGFR nonAFR Maricel 57 Normal [facility] Comment on above: Performed By: #### L 100.0010 #### [facility] [address] [place] [address] 09676 Glucose [Mass/Vol] 171 mg/dL High 82-115 [facility] Comment on above: Performed By: #### L 100.0010 #### ML [facility] [address] [place] [address] 20850 Potassium [Moles/Vol] 4.0 mmol/L Normal 3.5-5.0 [facility] Comment on above: Performed By: #### L 100.0010 #### [facility] [address] [place] [address] 68018 Sodium [Moles/Vol] 138 mmol/L Normal 135-145 [facility] Comment on above: Performed By: #### L 100.0010 #### [facility] [address] [place] [address] 45850 Urea nitrogen [Mass/Vol] 22 mg/dL Normal 8-23 [facility] Comment on above: Performed By: #### L 100.0010 #### ML - LABORATORY [address] [place] [address] 86081 PTHon 11-12-2018 PTH 26.5 pg/mL Normal 15-65 [facility] Comment on above: Performed By: #### L 304.0135 #### ML - LABORATORY [address] [place] [address] 99389 BMPon 10-16-2018 Anion gap [Moles/Vol] 20.3 mmol/L Normal 15-22 [facility] Comment on above: Performed By: #### L 100.0010, L304.0470 #### ML - LABORATORY [address] [place] [address] 09832 Calcium [Mass/Vol] 10.9 mg/dL High 8.8-10.2 [facility] Comment on above: Performed By: #### L 100.0010, L304.0470 #### ML - LABORATORY [address] [place] [address] 57588 Chloride [Moles/Vol] 100 mmol/L Normal 98-107 [facility] Comment on above: Performed By: #### L 100.0010, L304.0470 #### ML - LABORATORY [address] [place] [address] 55836 CO2 [Moles/Vol] 27 mmol/L Normal 22-29 [facility] Comment on above: Performed By: #### L 100.0010, L304.0470 #### ML - LABORATORY [address] [place] [address] 80144 Creatinine [Mass/Vol] 1.03 mg/dL High 0.50-0.90 [facility] Comment on above: Performed By: #### L 100.0010, L304.0470 #### ML - LABORATORY [address] [place] [address] 93835 eGFR if AFR MARICEL > 60 ml/min/1.73m2 Normal [facility] Comment on above: Result Comment: eGFR >= 60 Indicates normal kidney function. * eGFR IS AN ESTIMATE * (AFR MARICEL = ) (non-AFR AM = NON-) MDRD calculation used in the eGFR should not be used to dose medications. For further limitations of the eGFR please refer to the Physician Website or the National Kidney Disease Education Program website (www.nkdep.nih.gov). Performed By: #### L 100.0010, L304.0470 #### ML - LABORATORY [address] [place] [address] eGFR nonAFR Maricel 54 Normal [facility] Comment on above: Performed By: #### L 100.0010, L304.0470 #### ML - LABORATORY [address] [place] [address] Glucose [Mass/Vol] 186 mg/dL [facility] 82-115 [facility] Comment on above: Performed By: #### L 100.0010, L304.0470 #### ML - LABORATORY [address] [place] [address] Potassium [Moles/Vol] 4.3 mmol/L Normal 3.5-5.0 [facility] Comment on above: Performed By: #### L 100.0010, L304.0470 #### - LABORATORY [address] [place] [address] Sodium [Moles/Vol] 143 mmol/L Normal 135-145 [facility] Comment on above: Performed By: #### L 100.0010, L304.0470 #### ML - LABORATORY [address] [place] [address] Urea nitrogen [Mass/Vol] 28 mg/dL High 8-23 [facility] Comment on above: Performed By: #### L 100.0010, L304.0470 #### ML - LABORATORY [address] [place] [address] PTHon 10-16-2018 PTH 25.1 pg/mL Normal 15-65 [facility] Comment on above: Performed By: #### L 304.0135 #### ML - LABORATORY [address] [place] [address] VITAMIN Don 10-16-2018 VITAMIN D 48.5 ng/mL Normal 30-100 [facility] Comment on above: Performed By: #### L 100.0010, L304.0470 #### ML - LABORATORY [address] [place] [address] [employer] Cytology Reporton 2018 [employer] Cytology Report . Pathology ReportsAccession: Collected Date/Time: Received Date/Time: Pathologist:[id number] 05/21/2018 16:06 EST 05/21/2018 18:00 MD JOY FARMER [employer] Cytology ReportSPECIMEN:Specimen Description: Liquid Prep w/ HPVSpecimen: Cervical/EndocervicalScreening or Diagnostic: ScreeningRELEVANT HISTORY:LMP: not givenSPECIMEN ADEQUACY:SATISFACTORY FOR EVALUATIONENDOCERVICAL/TRANSFORMATIONAL ZONE COMPONENT PRESENTINTERPRETATION/RESULTS:NEGATIVE FOR INTRAEPITHELIAL LESION OR MALIGNANCYADJUNCTIVE TESTING:HIGH RISK HPV DNA TESTING ORDERED, REPORT TO FOLLOW UNDER SEPARATE COVERSUGGESTIONS/EDUCATIONAL NOTES:THIS CASE HAS BEEN REVIEWED FOR 10% Q.C. RESCREENElectronically Signed byPathology report verified by [facility].Screened by: KK DWElectronically signed by JOY Whlaengn-Out Date: 05/27/2018 10:24Performing Lab: [facility], [address] [place], [place] [address]DisclaimerThe Pap test is a screening test for cervical cancer. As evidenced by published data, it is subject to both inherent false negative and false positive results. Your patient's results should be interpreted in context with pertinent clinical history including gynecological examination. Normal [facility] ([place]) Comment on above: Performed By: #### G YCR ####[place] [address] HPVon 05-27-2018 HPV Interp Normal See Interp HPVN [facility] ([place]) Comment on above: Order Comment: Order placed by AP_HPV_ORDER rule from [id number] Result Comment: High Risk HPV Typing: NEGATIVEHPV types 16, 18, 31, 33, 35, 39, 45, 51, 52, 56, 58, 59, 66 and 68 DNA were undetectable or below the pre-set threshold.The juan r High-Risk HPV DNA Test is not intended for use as a screening device for Pap normal women under age 30 and is not intended to substitute for regular Pap screening.The juan r High-Risk HPV DNA Test is designed to augment existing methods for the detection of cervical disease and should be used in conjunction with clinical information derived from other diagnostic and screening tests, physical examinations and full medical history in accordance with appropriate patient management procedures.NOTE: A negative result does not preclude the presence of HPV infection because results depend on adequate specimen collection, absence of inhibitors and sufficient DNA to be detected.See Interp HPVN Performed By: #### H PV ####[address] [address] HPV Source Cervix Normal [facility] ([place]) Comment on above: Order Comment: Order placed by AP_HPV_ORDER rule from [id number] Performed By: #### H PV ####[address] [address] PROGRESSon 05-17-2018 PROGRESS HNO ID: [id number] Author: Provider [facility] Service: (none) Author Type: Physician Type: Progress Notes Filed: 05/17/2018 12:29 PM Note Text: [facility] [place] [address] FIRST CARE REPORT Patient: TUNDE JACK FLACO,-RAIMUNDO MartinezN.PSarah [id number] F Status: REG POV FC Date of Service: 05/17/18 Report Date AND Time: 05/17/18 1217 HPI History Of Present Illness Chief Complaint Sinus (FC) CC History Pt comes in today with complaint of 4 days of sinus pressure mostly on the left side, nasal congestion, pressure behind her eyes, sneezing, and a cough. States she has taken vicks and is using flonase with little relief. denies any fevers Vital Signs Vital Signs First Last Result Date Time Result Date Time Pulse Ox 97 05/17 1151 97 05/17 1151 B/P 121/75 05/17 1151 121/75 05/17 1151 Temp 97.6 05/17 1151 97.6 05/17 1151 Pulse 79 05/17 1151 79 05/17 1151 Resp 18 05/17 1151 18 05/17 1151 Medications Discontinued Scripts Sulfamethoxazole/Tmp* Ds 800/160 (Bactrim* Ds) 1 TAB PO BID Sulfamethoxazole/Tmp* Ds 800/160 (Bactrim* Ds) 1 TAB PO BID #20 TAB Prov: 02/26/18 DC: 05/17/18 1140 Not on Medication Reported Medications Fenofibrate (Tricor) 145 MG PO DAILY Insulin Detemir* (Levemir*) 90 UNITS SC HS Sitagliptin/Metformin* 50/500 (Janumet* 50/500) 1 TAB PO BIDF Venlafaxine* Hcl Xr (Effexor* Xr) 300 MG PO AM Gabapentin* (Neurontin*) 600 MG PO TID Gabapentin* (Neurontin*) 600 MG PO TID #180 Sucralfate* (Carafate*) 1 GM PO HS Sucralfate* (Carafate*) 1 GM PO HS #30 TAB Pravastatin Sod* (Pravachol*) 20 MG PO HS Pravastatin Sod* (Pravachol*) 20 MG PO HS #30 TAB Trazodone* Hcl (Desyrel*) 150 MG PO HS Trazodone* Hcl (Desyrel*) 150 MG PO HS #30 Dexlansoprazole* (Dexilant* (Kapidex)) 60 MG PO QDAY Dexlansoprazole* (Dexilant* (Kapidex)) 60 MG PO QDAY #30 Aspirin* Chewable (Children's Chewable Aspirin*) 81 MG PO QDAY Canagliflozin* (Invokana*) 100 MG PO QDAC Aripiprazole* (Abilify*) 10 MG PO HS Fluticasone* Propionate (Flonase* Nasal) 1 SPRAY NS QDAY Losartan/Hctz* 100/12.5 1 TAB PO QDAY Insulin Aspart Protamine/Aspar* (Novolog* Mix 70/30) 0 UNITS SC DAILY Allergies Coded Allergies: Penicillins (Mild, HIVES, SICK 05/17/18) haloperidol (Mild, CHEST PAIN, HIVES, SICK 05/17/18) risperidone (Mild, HIVES (ALLERGY) 05/17/18) tai (HIVES (ALLERGY) 05/17/18) thioridazine (From MELLARIL) ( 05/17/18) topiramate (From TOPAMAX) (ITCHING, HIVES 05/17/18) Patient Health History Medical Problems Anxiety Bipolar depression Diabetes Former cigarette smoker 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 Hyperlipidemia Hypertension Lumbar degenerative disc disease Migraine PAIN IN UNSPECIFIED JOINT Pancreatitis Schizoaffective disorder, bipolar type Viral URI with cough Surgical Problems H/O colonoscopy H/O inguinal hernia repair H/O: hysterectomy Hx of adenoidectomy Hx of appendectomy Hx of cholecystectomy Hx of tonsillectomy Presence of functional implant Social History Problems Current non-drinker of alcohol Current smoker OARRS Accessed and Reviewed NO LNMP: NONE Advanced Directives Advanced Directives N/A Adv Dir Info Given No Alcohol Screening Tool Alcohol Screening Tool How many times in the past year have you had 5 (for men) or 4 (for women and all adults older than 65 years) or more drinks in a day? [0 ] times Review of Systems General Denies: Body Aches, Fever, Chills. Skin No: Rash. Head Sinus Headache. Eyes Denies: Eye Irritation. Ear Fullness. Nose Nasal Congestion. Mouth No: Sore Lesions in the Mouth. Throat Sore Throat, Scratchy. Neck Denies: Neck Pain. Heart/Cardiovascular Denies: Chest Pain. Respiratory Cough. Denies: Dyspnea. Physical Examination General Alert, Oriented X3, Cooperative Skin [place], Warm, and Dry, Well Hydrated Head Normocephalic Eyes PERRL Ears Normal Tympanic Membranes Nose No Nasal Discharge, Mucosa [place], Septum Midline Mouth Mouth pink/wet Throat Uvula Midline Non-Edema, Redness Neck No Meningitis Symptoms, No Cervical Adenopathy Heart/Cardiovascular Regular Rate and Rhythm, Normal S-1, S-2 Respiratory Lungs Are Clear, Pt Speaking Full Sentence, No Wheezes, No Accessory Muscle Use, No Rhonchi Noted Impression And Plan Discharge Instructions Increase Liquids, Tylenol every 4 hrs, Motrin every 6 hrs, Warm Liquids (tea/soup), Honey cough relief, Nasal saline drops, Cough/Drainage - 3-8wks, Salt water gargle 3-4xday Special Instructions o Follow up with your Primary Care Physician in 5-7 days if no improvement in your condition. o Call or return to [facility] if you experience problems relating to your visit or call . Drink lots and lots of fluids Take Mucinex DM max strength 1200mg twice a day until symptoms gone For nasal congestion/ear fullness: Flonase twice a day until symptoms gone For sore throat/cough: gargle with salt water, hot tea and honey, cool mist vaporizer, and cough drops For sinus pressure/congestion: Use a nasal saline rinse (netti pot/squeeze bottle) couple times a day Cough/drainage can linger up to 6 weeks All medications and their side effects were explained to the patient and were understood. At home instructions were explained to the patient and were understood. Report [facility] Emergency Department if any further problems occur. Diagnosis 1. Viral URI with cough *Laboratory Microbiology Date/Time Procedure - Status Source Growth 05/17 1218 Streptococcus Rapid Screen - RECD THROAT strep neg *Prescriptions Prescriptions (FC) Medication Dose/Rte/Freq Days Qty Entered Max Daily Dose Guaifenesin/Dm* 600/30 2 TAB PO BID 120 05/17/18 (Mucinex* Dm 600/30) 1220 Strength: 1 EACH TAB.ER.12H 05/17/18 1228 SEE SAM F.N.P. << Signature on File>> Reported By: SEE SAM F.N.PSarah Signed By: SEE SAM F.N.PSarah Tests performed at: [place] [address] Normal [facility] STRP SCNon 05-17-2018 STRP SCN Performed at: [facility] Lab [address] [place] [address] STREP SCREEN NEGATIVE - CULTURE TO FOLLOW REFERENCE RANGE NORMAL RESULT IS NEGATIVE. Normal [facility] THTon 05-17-2018 THT ORGANISM 1: NO GROUP A BETA STREP ISOLATED Norm al [facility] Comment on above: Performed By: #### M 130.0700 #### ML - LABORATORY [address] [place], [place] [address] SURGICAL PATHOLOGY, CONVERTE Don 04-21-2014 [facility] Vital Signs Date Time Vital Sign Value Performing Clinician Facility 04-18-2023 14:10-0500 Body height 162.56 cm Latia Sparks 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 Work Phone: [facility] Work Phone: 04-18-2023 14:10-0500 Body mass index (BMI) [Ratio] 35.7 kg/m2 Latia Sparks 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 Work Phone: [facility] Work Phone: 04-18-2023 14:10-0500 Body surface area Derived from formula 2 m2 Latia Sparks 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 Work Phone: [facility] Work Phone: 04-18-2023 14:10-0500 Body temperature 97.8 [degF] Latia Sparks 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 Work Phone: [facility] Work Phone: 04-18-2023 14:10-0500 Body weight 94.35 kg Latia Sparks 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 Work Phone: [facility] Work Phone: 04-18-2023 14:10-0500 Diastolic blood pressure 80 mm[Hg] Latia Sparks 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 Work Phone: [facility] Work Phone: 04-18-2023 14:10-0500 Heart rate 96 /min Latia Sparks 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 Work Phone: [facility] Work Phone: 04-18-2023 14:10-0500 Inhaled oxygen concentration 21 % Latia Sparks 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 Work Phone: [facility] Work Phone: 04-18-2023 14:10-0500 Inhaled oxygen flow rate 0 L/min Latia Sparks 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 Work Phone: [facility] Work Phone: 04-18-2023 14:10-0500 Respiratory rate 18 /min Latia Sparks 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 Work Phone: [facility] Work Phone: 04-18-2023 14:10-0500 SaO2% (BldA) [Mass fraction] 96 % Latia Sparks 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 Work Phone: [facility] Work Phone: 04-18-2023 14:10-0500 Systolic blood pressure 138 mm[Hg] Latia Sparks 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 Work Phone: [facility] Work Phone: 11-15-2022 14:24-0400 Diastolic blood pressure 82 mm[Hg] Latia Sparks 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 Work Phone: [facility] Work Phone: 11-15-2022 14:24-0400 Systolic blood pressure 142 mm[Hg] Latia Sparks 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 Work Phone: [facility] Work Phone: 11-15-2022 14:17-0400 Body height 162.56 cm Latia Sparks 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 Work Phone: [facility] Work Phone: 11-15-2022 14:17-0400 Body mass index (BMI) [Ratio] 37.4 kg/m2 Latia Sparks 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 Work Phone: [facility] Work Phone: 11-15-2022 14:17-0400 Body surface area Derived from formula 2 m2 Latia Sparks 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 Work Phone: [facility] Work Phone: 11-15-2022 14:17-0400 Body weight 98.88 kg Latia Sparks 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 Work Phone: [facility] Work Phone: 11-15-2022 14:17-0400 Diastolic blood pressure 78 mm[Hg] Latia Sparks 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 Work Phone: [facility] Work Phone: 11-15-2022 14:17-0400 Heart rate 94 /min Latia Sparks 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 Work Phone: [facility] Work Phone: 11-15-2022 14:17-0400 SaO2% (BldA) [Mass fraction] 93 % Latia Sparks 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 Work Phone: [facility] Work Phone: 11-15-2022 14:17-0400 Systolic blood pressure 143 mm[Hg] Latia Sparks 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 Work Phone: [facility] Work Phone: 08-02-2022 10:15-0400 Body height 162.56 cm Latia Sparks 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 Work Phone: [facility] Work Phone: 08-02-2022 10:15-0400 Body mass index (BMI) [Ratio] 36.7 kg/m2 Latia Sparks 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 Work Phone: [facility] Work Phone: 08-02-2022 10:15-0400 Body surface area Derived from formula 2 m2 Latia Sparks 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 Work Phone: [facility] Work Phone: 08-02-2022 10:15-0400 Body temperature 98.5 [degF] Latia Sparks 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 Work Phone: [facility] Work Phone: 08-02-2022 10:15-0400 Body weight 97.07 kg Latia Sparks 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 Work Phone: [facility] Work Phone: 08-02-2022 10:15-0400 Diastolic blood pressure 82 mm[Hg] Latia Sparks 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 Work Phone: [facility] Work Phone: 08-02-2022 10:15-0400 Heart rate 98 /min Latia Sparks 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 Work Phone: [facility] Work Phone: 08-02-2022 10:15-0400 Heart Rate Rhythm 1 1 Latia Sparks 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 Work Phone: [facility] Work Phone: 08-02-2022 10:15-0400 Inhaled oxygen concentration 21 % Latia Sparks 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 Work Phone: [facility] Work Phone: 08-02-2022 10:15-0400 Inhaled oxygen flow rate 0 L/min Latia Sparks 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 Work Phone: [facility] Work Phone: 08-02-2022 10:15-0400 Respiratory rate 18 /min Latia Sparks 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 Work Phone: [facility] Work Phone: 08-02-2022 10:15-0400 SaO2% (BldA) [Mass fraction] 96 % Latia Sparks 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 Work Phone: [facility] Work Phone: 08-02-2022 10:15-0400 Systolic blood pressure 138 mm[Hg] Latia Sparks 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 Work Phone: [facility] Work Phone: 07-23-2022 13:38-0500 Diastolic blood pressure 78 mm[Hg] Latia Sparks 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 Work Phone: [facility] Work Phone: 07-23-2022 13:38-0500 Systolic blood pressure 142 mm[Hg] Latia Sparks 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 Work Phone: [facility] Work Phone: 07-23-2022 12:13-0500 Body height 162.56 cm Latia Sparks 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 Work Phone: [facility] Work Phone: 07-23-2022 12:13-0500 Body mass index (BMI) [Ratio] 36 kg/m2 Latia Sparks 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 Work Phone: [facility] Work Phone: 07-23-2022 12:13-0500 Body surface area Derived from formula 2 m2 Latia Sparks 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 Work Phone: [facility] Work Phone: 07-23-2022 12:13-0500 Body temperature 98.3 [degF] Latia Sparks 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 Work Phone: [facility] Work Phone: 07-23-2022 12:13-0500 Body weight 95.26 kg Latia Sparks 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 Work Phone: [facility] Work Phone: 07-23-2022 12:13-0500 Diastolic blood pressure 92 mm[Hg] Latia Sparks 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 Work Phone: [facility] Work Phone: 07-23-2022 12:13-0500 Heart rate 118 /min Latia Sparks 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 Work Phone: [facility] Work Phone: 07-23-2022 12:13-0500 Heart Rate Rhythm 1 1 Latia Sparks 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 Work Phone: [facility] Work Phone: 07-23-2022 12:13-0500 Inhaled oxygen concentration 21 % Latia Sparks 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 Work Phone: [facility] Work Phone: 07-23-2022 12:13-0500 Inhaled oxygen flow rate 0 L/min Latia Sparks 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 Work Phone: [facility] Work Phone: 07-23-2022 12:13-0500 Respiratory rate 21 /min Latia Sparks 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 Work Phone: [facility] Work Phone: 07-23-2022 12:13-0500 SaO2% (BldA) [Mass fraction] 96 % Latia Sparks 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 Work Phone: [facility] Work Phone: 07-23-2022 12:13-0500 Systolic blood pressure 168 mm[Hg] Latia Sparks 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 Work Phone: [facility] Work Phone: 09-21-2021 13:25-0400 Body height 162.56 cm Isidra MentiNova Other [employer] Other 09-21-2021 13:25-0400 Body mass index (BMI) [Ratio] 37.24 kg/m2 Isidra MentiNova Other [employer] Other 09-21-2021 13:25-0400 Body temperature 97.9 [degF] Isidra Hernandez Other [employer] Other 09-21-2021 13:25-0400 Body weight 98.43 kg Isidra Hernandez Other [employer] Other 09-21-2021 13:25-0400 Diastolic blood pressure 68 mm[Hg] Isidra Hernandez Other [employer] Other 09-21-2021 13:25-0400 Respiratory rate 20 /min Isidra Hernandez Other [employer] Other 09-21-2021 13:25-0400 SaO2% (BldA) [Mass fraction] 96 % Isidra Hernandez Other [employer] Other 09-21-2021 13:25-0400 Systolic blood pressure 146 mm[Hg] Isidra Hernandez Other [employer] Other Encounters Encounter Date Encounter Type Care Provider Facility Start: 04-18-2023 End: 04-18-2023 [facility] visit, estab pt Janina FRIED Work Phone: [facility] Work Phone: Start: 04-18-2023 End: 04-18-2023 [facility]QHC visit, estab pt Latia Sparks 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 Work Phone: [facility] Work Phone: Start: 11-15-2022 End: 11-15-2022 [facility]HC visit, estab pt Latia Sparks 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 Work Phone: [facility] Work Phone: Start: 11-15-2022 End: 11-15-2022 General Latia Sparks 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 Work Phone: [facility] Work Phone: Start: 11-09-2022 End: 11-10-2022 [facility] Start: 11-08-2022 End: 11-08-2022 [facility]QHC visit, estab pt Janina PARRISH-S Work Phone: [facility] Work Phone: Start: 11-08-2022 End: 11-08-2022 Encounter for preprocedural laboratory examination Latia Sparks 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 Work Phone: [facility] Work Phone: Start: 11-08-2022 End: 11-08-2022 Nursing evaluation of patient and report Latia Sparks 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 Work Phone: [facility] Work Phone: Start: 09-26-2022 End: 09-26-[address] DOCTOR WILSON Facility:[facility] Start: 09-25-2022 End: 09-25-2022 ambulatory NARENDRANATH LAKSHMIPATHY . Facility:[facility] Start: 08-28-2022 End: 08-29-2022 ambulatory NARENDRANATH LAKSHMIPATHY . Facility:[facility] Start: 08-14-2022 End: 08-14-2022 ambulatory NARENDRANATH LAKSHMIPATHY . Facility:[facility] Start: 08-02-2022 End: 08-02-2022 FQHC visit, estab pt Latia Sparks 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 Work Phone: [facility] Work Phone: Start: 07-27-2022 End: 07-28-2022 ambulatory GERALDO PRADO Facility:[facility] Start: 07-23-2022 End: 07-23-2022 FQHC visit, estab pt Cinthia PARRISH Work Phone: [facility] Work Phone: Start: 07-23-2022 End: 07-23-2022 Adult health examination Latia MAYORGA Work Phone: [facility] Work Phone: Start: 07-23-2022 End: 07-23-2022 Encounter for preprocedural laboratory examination Latia MAYORGA Work Phone: [facility] Work Phone: Start: 07-23-2022 End: 07-23-2022 FQ visit new patient Latia MAYORGA Work Phone: [facility] Work Phone: Start: 07-23-2022 End: 07-24-2022 ambulatory LATIA SPARKS [facility] Start: 07-23-2022 End: 07-24-2022 Encounter for general adult medical examination without abnormal findings LATIA SPARKS [facility] Start: 07-23-2022 End: 07-23-2022 Subsequent hospital visit by physician [facility]INE [facility] Start: 07-19-2022 End: 07-20-[address] DOCTOR WILSON Facility:[facility] Start: 07-18-2022 End: 07-18-[address] DOCTOR WILSON Facility:[facility] Start: 07-17-2022 End: 07-18-2022 ambulatory GERALDO PRADO Facility:[facility] Start: 07-12-2022 ambulatory Latia MAYORGA [facility] Start: 09-21-2021 End: 09-21-2021 ambulatory Isidra Hernandez Other [employer] Other Start: 09-21-2021 Office outpatient ne w 20 minutes Isidra Hernandez [facility] Start: 09-21-2021 End: 09-21-2021 Patient encounter procedure MD Constantine Hernandez Work Phone: [facility] Start: 05-21-2018 End: 05-26-2018 Patient encounter procedure STIVEN ANDINO Facility:[facility] Ob[facility] Start: 01-08-2018 Patient encounter Morgan Barcenas [facility] Start: 04-21-2014 Documentation procedure Aram Esquivel MD Work Phone: [facility] Start: 04-21-2014 Historic EMR Aram soto MD Work Phone: [facility] Procedures Date Procedure Procedure Detail Performing Clinician Start: 04-18-2023 Current tobacco smoker Latia Sparks FN P Work Phone: Start: 04-18-2023 FQ visit, MH estab pt Janina Christianson LI SW-S Work Phone: Start: 04-18-2023 Gluc bld gluc mntr dev cleared fda spec home use Latia Sparks 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 Work Phone: Start: 04-18-2023 Most recent diastolic blood pressure 80-89 mm hg Latia Sparks 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 Work Phone: Start: 04-18-2023 Most recent hg a1c>equal to 7.0%&<8.0% Latia Sparks 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 Work Phone: Start: 04-18-2023 Most recent systolic blood press 130-139mm hg Latia Sparks 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 Work Phone: Start: 04-18-2023 Psychotherapy w/patient 30 minutes Janina Christianson [employer] Work Phone: Start: 04-18-2023 Pt scrnd tobacco use rcvd tobacco cessation talk Latia Sparks 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 Work Phone: Start: 11-15-2022 FQHC visit, estab pt Latia Sparks 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 Work Phone: Start: 11-15-2022 Most recent diastolic blood pressure 80-89 mm hg Latia Sparks 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 Work Phone: Start: 11-15-2022 Most recent systolic blood pres>/equal 140 mm hg Latia Sparks 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 Work Phone: Start: 11-08-2022 Collection venous blood venipuncture Latia Sparks 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 Work Phone: Start: 11-08-2022 FQ visit, MH estab pt Janina Christianson [facility] SW[facility] Work Phone: Start: 11-08-2022 Psychotherapy w/patient 30 minutes Janina Christianson [employer] Work Phone: Start: 08-02-2022 Counseling Visit For: Consulting For Explanation of Examination Or Test Findings Latia Sparks 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 Work Phone: Start: 08-02-2022 FQ visit, estab pt Latia Sparks 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 Work Phone: Start: 08-02-2022 Most recent diastolic blood pressure 80-89 mm hg Latia Sparks 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 Work Phone: Start: 08-02-2022 Most recent systolic blood press 130-139mm hg Latia Sparks 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 Work Phone: Start: 07-23-2022 Cholecystectomy Latia Sparks 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 Work Phone: Start: 07-23-2022 Collection venous blood venipuncture Latia Sparks 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 Work Phone: Start: 07-23-2022 FQ visit, MH estab pt Cinthia Adolph LIS W-S Work Phone: Start: 07-23-2022 Hysterectomy Latia Sparks 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 Work Phone: Start: 07-23-2022 Ligation of fallopian tube Latia Ibrahi m 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 Work Phone: Start: 07-23-2022 Most recent diastol blood pres >/equal 90 mm hg Latia Sparks 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 Work Phone: Start: 07-23-2022 Most recent hg a1c>equal to 8.0%& Latia Sparks 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 Work Phone: Start: 07-23-2022 Most recent systolic blood pressure <130 mm hg Latia Sparks 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 Work Phone: Start: 07-23-2022 Pt-focused hlth risk assmt score doc stnd instrm Latia Sparks 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 Work Phone: Start: 07-23-2022 Urine albumin semiquantitative Latia Sparks 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 Work Phone: Start: 07-23-2022 Hemoglobin glycosylated a1c Latia Yasmin im 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 Work Phone: Start: 07-23-2022 Hepatitis c antibody Latia Sparks 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 Work Phone: Start: 07-23-2022 IMMATURE PLATELET FRACTION Latia Andree m 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 Work Phone: Start: 09-21-2021 X-ray of left ankle MD Constantine Hernandez Work Phone: Start: 04-21-2014 SURGICAL PATHOLOGY, CONVERTED Aram Esquivel MD Work Phone: History of Dilation And Curettage Leah Brock MD History of [place] Surgery Leah Brock MD Hysterectomy Leah Brock MD Other bilateral liga tion and division of fallopian tubes Leah Brock MD Plan of Treatment Date Care Activity Detail Author Start: 07-18-2023 FQ visit, estab pt Medical E stablished Patient [facility] Work Phone: Start: 06-05-2023 Dental Comp Exam [facility] Work Phone: Start: 06-04-2023 FQHC visit, estab pt Medical E stablished Patient [facility] Work Phone: Start: 04-18-2023 End: 04-18-2023 Patient education based on identified need [facility] offered active and supportive listening, validated emotions and feelings, and processed current stressors with being in the hospital. ~[facility]HP encouraged patient to utilize positive supports and coping skills. ~ [facility] Start: 04-18-2023 End: 04-18-2023 Patient education based on identified need [facility] Start: 11-15-2022 End: 11-15-2022 Patient education based on identified need [facility] Start: 11-15-2022 Lipid 1996 panel - S zana or Plasma [facility] Start: 11-08-2022 End: 11-08-2022 Patient education based on identified need [facility] encouraged patient to utilize positive supports and coping skills. ~[facility]HP encouraged patient to contact [facility] if they need any additional support or resources. ~ [facility] Start: 11-01-2022 FQHC visit, estab pt Medical E stablished Patient [facility] Work Phone: Start: 10-18-2022 ambulatory Ambulatory Facility:[facility] Start: 08-02-2022 FQHC visit, estab pt Medical E stablished Patient [facility] Work Phone: Start: 08-02-2022 End: 08-02-2022 Patient education based on identified need [facility] Start: 08-02-2022 End: 08-02-2022 Provider instructions for treatment Intervention and counseling on cessation of tobacco use, 3-10 minutes Discussed medication and nicotine replacement for tobacco cessation [facility] Start: 07-30-2022 CBC panel - Blood by Automated count [facility] Start: 07-30-2022 Lipid 1996 panel - S zana or Plasma LIPID PROFILE [facility] Start: 07-23-2022 End: 07-23-2022 Patient education based on identified need [facility] Start: 07-23-2022 End: 07-23-2022 Provider instructions for treatment Intervention and counseling on cessation of tobacco use, 3-10 minutes Discussed medication and nicotine replacement for tobacco cessation [facility] Start: 12-18-2021 Influenza vaccination Flu vaccine (# 1) [facility] Start: 1971 DTaP/Tdap/Td vaccine (1 - Tdap) DTaP/Tdap/Td vaccine (1 - Tdap) [facility] Start: 1950 COVID-19 Vaccine (#1) COVID-19 Vacci ne (#1) [facility] Payers Date Payer Category Payer Medicare [id number] 2014 Private Health Insurance [id number] 2014 Unknown [id number] 1959 Medicaid [id number] 1950 Unknown [id number]. 627 1952 Unknown [id number]. 593 1952 Unknown [id number] [id number]. 593 1952 Unknown [id number] [id number]. 593 1952 Unknown [id number] [id number]. 593 1952 Unknown [id number] [id number]. 593 1952 Unknown [id number] [id number]. 593 1952 Unknown [id number] [id number]. 593 1952 Unknown [id number] [id number]. 593 1952 Unknown [id number] [id number]. 593 1952 Unknown [id number] [id number]. 175 1952 Unknown [id number] [id number]. 175 Medicare Self-pay Unknown 1 - [facility] hcare Dual Complet [id number] Social History Date Type Detail Facility Start: 1950 Sex Assigned At Female [facility] Sex Assigned At [employer] Other Assertion Currently not se xually active (finding) [facility] Assertion Cigarette smoker (finding) [facility] Assertion Smoker (finding) [facility] Assertion Moderate cigaret te smoker (10-19 cigs/day) (finding) [facility] Assertion Exposure to poll ution (event) [facility] Assertion Gender identity finding (finding) [facility] Assertion Finding of sexua l orientation (finding) [facility] Tobacco smoking status Unknown if ever smoked [facility] Assertion History of disor vivian (situation) [facility] Assertion Emotional stress (finding) [facility] Assertion Finding of resid ence and accommodation circumstances (finding) [facility] Assertion Light cigarette smoker (1-9 cigs/day) (finding) [facility] Start: 1950 Sex Assigned At Not on file SHAWNA BRIDGETT [facility] Work Phone: NEGATED: Highlighted row - - [facility] Work Phone: NEGATED: Highlighted row Assertion Current drinker of alcohol (finding) [facility] NEGATED: Highlighted row Assertion Finding relating to drug misuse behavior (finding) [facility] NEGATED: Highlighted row Assertion [facility] NEGATED: Highlighted row Assertion Sexually active (finding) [facility] NEGATED: Highlighted row Assertion Exposure to pollution (event) [facility] Medical Equipment Procedure Code Equipment Code Equipment Origin al Text Equipment Identifier Dates BD Pen Needle Na no 2nd Gen 32G X 4 MM Miscellaneous [id number] Start: 07-23-2022 End: 08-02-2022 BD Pen Needle Na no 2nd Gen 32G X 4 MM Miscellaneous [id number] Start: 08-28-2022 BD Pen Needle Na no 2nd Gen 32G X 4 MM Miscellaneous [id number] Start: 08-22-2022 End: 08-02-2022 Functional Status Date Assessment Result Facility NEGATED: Highlighted row Functional performance Functional status health issues are not documented [facility] Work Phone: Mental Status Date Assessment Result Facility Cognitive function Moderate recu rrent major depression Moderate recurrent major depression (disorder) [facility] Work Phone: NEGATED: Highlighted row Cognitive function [Interpretation] Cognitive status health issues are not documented Disease [facility] DO Work Phone: Clinical Notes 09-21-2021 to 04-21-2023 Note Date & Type Note Facility 04-21-2023 Instructions Includes: Instructions for all patient encounters Intervention and counseling on cessation of tobacco use, 3-10 minutes Discussed medication and nicotine replacement for tobacco cessation Last Documented On 3 1:05PM ; [facility] Intervention and counseling on cessation of tobacco use, 3-10 minutes Discussed medication and nicotine replacement for tobacco cessation Last Documented On 3 1:02PM ; [facility] Intervention and counseling on cessation of tobacco use, 3-10 minutes Discussed medication and nicotine replacement for tobacco cessation Last Documented On 3 1:13PM ; [facility] Education and Decision Aids were provided during visit for: [facility] offered active and suppo rtive listening, validated emotions and feelings, and processed current stressors with being in the hospital. ~[facility] encouraged patient to utilize positive supports and coping skills. ~ Last Documented On 3 1:42PM ; [facility] Discussed nutritional needs teach healthy choices including fruits and vegetables Last Documented On 3 2:16PM ; [facility] Patient education about a pr oper diet 35.7 Last Documented On 3 2:16PM ; [facility] Patient education about phys ical activity benefits Last Documented On 3 10:09PM ; [facility] Patient education about medi cation Last Documented On 3 10:09PM ; [facility] Patient education about ment al health Last Documented On 3 10:09PM ; [facility] Discussed concerns about exe rcise : promote physical activity Last Documented On 3 2:16PM ; [facility] Not requesting contraception Last Documented On 3 2:16PM ; [facility] Discussed nutritional needs teach healthy choices including fruits and vegetables Last Documented On 3 2:25PM ; [facility] Patient education about a pr oper diet 37.4 Last Documented On 3 2:25PM ; [facility] Patient education about phys ical activity benefits Last Documented On 3 2:50PM ; [facility] Patient education about medi cation Last Documented On 3 2:50PM ; [facility] Patient education about ment al health Last Documented On 3 2:50PM ; [facility] Discussed concerns about exe rcise : promote physical activity Last Documented On 3 2:25PM ; [facility] encouraged patient to ut ilize positive supports and coping skills. ~P encouraged patient to contact [facility] if they need any additional support or resources. ~ Last Documented On 3 10:03PM ; [facility] Discussed nutritional needs teach healthy choices including fruits and vegetables Last Documented On 3 10:23AM ; [facility] Patient education about a pr oper diet 36.7 Last Documented On 3 10:23AM ; [facility] Patient education about phys ical activity benefits Last Documented On 3 1:07PM ; [facility] Patient education about medi cation Last Documented On 3 1:07PM ; [facility] Patient education about ment al health Last Documented On 3 1:07PM ; [facility] Discussed concerns about exe rcise : promote physical activity Last Documented On 3 10:23AM ; [facility] introduced patient to [facility] integrated model of care. ~P offered active and supportive listening, normalized emotions and feelings, and processed current stressors. ~Discussed healthy coping skills and positive supports in patient's life. ~Discussed healthy lifestyle behaviors. ~ Last Documented On 3 12:10AM ; [facility] Discussed nutritional needs 36 teach healthy choices including fruits and vegetables Last Documented On 3 12:20PM ; [facility] Patient education about a pr oper diet 36 Last Documented On 3 12:20PM ; [facility] Discussed concerns about exe rcise : promote physical activity Last Documented On 3 12:20PM ; [facility] Referred Patient to a Diabet es Self-Management Program Last Documented On 3 1:46PM ; [facility] Work Phone: 1(402) 444-574012-02-2023 Instructions Includes: Instructions for all patient encounters Instructions to patient Intervention and counseling on cessation of tobacco use, 3-10 minutes Discussed medication and nicotine replacement for tobacco cessation Last Documented On 3 1:05PM ; [facility] Intervention and counseling on cessation of tobacco use, 3-10 minutes Discussed medication and nicotine replacement for tobacco cessation Last Documented On 3 1:02PM ; [facility] Intervention and counseling on cessation of tobacco use, 3-10 minutes Discussed medication and nicotine replacement for tobacco cessation Last Documented On 3 1:13PM ; [facility] Education and Decision Aids were provided during visit for: [facility] offered active and suppo rtive listening, validated emotions and feelings, and processed current stressors with being in the hospital. ~[facility] encouraged patient to utilize positive supports and coping skills. ~ Last Documented On 3 1:42PM ; [facility] Discussed nutritional needs teach healthy choices including fruits and vegetables Last Documented On 3 2:16PM ; [facility] Patient education about a pr oper diet 35.7 Last Documented On 3 2:16PM ; [facility] Discussed concerns about exe rcise : promote physical activity Last Documented On 3 2:16PM ; [facility] Not requesting contraception Last Documented On 3 2:16PM ; [facility] Discussed nutritional needs teach healthy choices including fruits and vegetables Last Documented On 3 2:25PM ; [facility] Patient education about a pr oper diet 37.4 Last Documented On 3 2:25PM ; [facility] Patient education about phys ical activity benefits Last Documented On 3 2:50PM ; [facility] Patient education about medi cation Last Documented On 3 2:50PM ; [facility] Patient education about ment al health Last Documented On 3 2:50PM ; [facility] Discussed concerns about exe rcise : promote physical activity Last Documented On 3 2:25PM ; [facility] encouraged patient to ut ilize positive supports and coping skills. ~[facility] encouraged patient to contact [facility] if they need any additional support or resources. ~ Last Documented On 3 10:03PM ; [facility] Discussed nutritional needs teach healthy choices including fruits and vegetables Last Documented On 3 10:23AM ; [facility] Patient education about a pr oper diet 36.7 Last Documented On 3 10:23AM ; [facility] Patient education about phys ical activity benefits Last Documented On 3 1:07PM ; [facility] Patient education about medi cation Last Documented On 3 1:07PM ; [facility] Patient education about ment al health Last Documented On 3 1:07PM ; [facility] Discussed concerns about exe rcise : promote physical activity Last Documented On 3 10:23AM ; [facility] introduced patient to [facility] integrated model of care. ~[facility] offered active and supportive listening, normalized emotions and feelings, and processed current stressors. ~Discussed healthy coping skills and positive supports in patient's life. ~Discussed healthy lifestyle behaviors. ~ Last Documented On 3 12:10AM ; [facility] Discussed nutritional needs 36 teach healthy choices including fruits and vegetables Last Documented On 3 12:20PM ; [facility] Patient education about a pr oper diet 36 Last Documented On 3 12:20PM ; [facility] Discussed concerns about exe rcise : promote physical activity Last Documented On 3 12:20PM ; [facility] Referred Patient to a Diabet es Self-Management Program Last Documented On 3 1:46PM ; [facility] Work Phone: 1(576) 593-994611-30-2023 Evaluation note Includes: Assessments for all patient encounters Findings Encounter Date Moderate recurrent major depression BH E stablished Patient with Janina Meghan [employer] 04/18/2023 Last Documented On 3 1:42PM ; [facility] [Z68.35 - Body mass index [B IA] 35.0-35.9, adult] assessment of body mass index Medical Established Patient with Latia Sparks 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 04/18/2023 Last Documented On 3 2:51PM ; [facility] Assessment of body mass index Medical Es tablished Patient with Latia Sparks 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 11/15/2022 Last Documented On 3 2:53PM ; [facility] Generalized anxiety disorder Establis hed Patient with Janina Meghan [employer] 11/08/2022 Last Documented On 3 10:03PM ; [facility] Hyperlipidemia Nurse Visit with Latia Hoffmanim [facility] 11/08/2022 Last Documented On 3 2:16PM ; [facility] Venipuncture was performed Nurse Visit with Kathia Farooqahim [facility] 11/08/2022 Last Documented On 3 2:16PM ; [facility] [Z68.36 - Body mass index [B IA] 36.0-36.9, adult] assessment of body mass index Medical Established Patient with Latia Sparks 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 08/02/2022 Last Documented On 3 1:36PM ; [facility] Intervention and counseling on cessation of tobacco use, 3-10 minutes Discussed medication and nicotine replacement for tobacco cessation Medical Established Patient with Latia Sparks 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 08/02/2022 Last Documented On 3 1:36PM ; [facility] Visit for: person consulting for explanation of examination or test findings Medical Established Patient with Latia Sparks 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 08/02/2022 Last Documented On 3 1:36PM ; [facility] Generalized anxiety disorder Establis hed Patient with Cinthia Farfan [employer] 07/23/2022 Last Documented On 3 12:17AM ; [facility] Intervention and counseling on cessation of tobacco use, 3-10 minutes Discussed medication and nicotine replacement for tobacco cessation Established Patient with Cinthia Farfan [employer] 07/23/2022 Last Documented On 3 12:17AM ; [facility] Moderate recurrent major depression E stablished Patient with Cinthia Stone [employer] 07/23/2022 Last Documented On 3 12:17AM ; [facility] Nicotine dependence Established Patient with Cinthia Stone [employer] 07/23/2022 Last Documented On 3 12:17AM ; [facility] Primary insomnia Established Patient with Deysi Farfan [employer] 07/23/2022 Last Documented On 3 12:17AM ; [facility] [Z68.36 - Body mass index [B IA] 36.0-36.9, adult] assessment of body mass index Medical New Patient with Laita Hoffmanim 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 07/23/2022 Last Documented On 3 2:32PM ; [facility] Diabetes Risk Test Score was nine score 07/23/2022 Medical New Patient with Latia Hoffmanim 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 07/23/2022 Last Documented On 3 2:32PM ; [facility] Intervention and counseling on cessation of tobacco use, 3-10 minutes Discussed medication and nicotine replacement for tobacco cessation Medical New Patient with Latia Sparks 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 07/23/2022 Last Documented On 3 2:32PM ; [facility] Screening for Hep C Medical New Patient with Nad yelitza Sparks 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 07/23/2022 Last Documented On 3 2:32PM ; [facility] Screening for HIV Medical New Patient with Hiren a Sparks 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 07/23/2022 Last Documented On 3 2:32PM ; [facility] Venipuncture was performed Medical New Patient w dmitry Hoffmanim 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 07/23/2022 Last Documented On 3 2:32PM ; [facility] Visit for routine adult H&P without abnormal findings Medical New Patient with Latia Sparks 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 07/23/2022 Last Documented On 3 2:32PM ; [facility] Work Phone: [phone]) 468-532511-30-2023 Evaluation note Includes: Assessments for all patient encounters Findings Encounter Date Moderate recurrent major depression BH E stablished Patient with Janina Meghan [employer] 04/18/2023 Last Documented On 3 1:42PM ; [facility] [Z68.35 - Body mass index [B IA] 35.0-35.9, adult] assessment of body mass index Medical Established Patient with Latia Sparks 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 04/18/2023 Last Documented On 3 10:11PM ; [facility] Nicotine dependence Medical Established Patient with Latia Sparks 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 04/18/2023 Last Documented On 3 10:11PM ; [facility] 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 Medical Established Patient with Latia Sparks 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 04/18/2023 Last Documented On 3 10:11PM ; [facility] Assessment of body mass index Medical Es tablished Patient with Latia Sparks 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 11/15/2022 Last Documented On 3 2:53PM ; [facility] Generalized anxiety disorder BH Establis hed Patient with Janina Meghan [employer] 11/08/2022 Last Documented On 3 10:03PM ; [facility] Hyperlipidemia Nurse Visit with Latia Sparks 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 11/08/2022 Last Documented On 3 2:16PM ; [facility] Venipuncture was performed Nurse Visit with Genarobob gamino Sparks 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 11/08/2022 Last Documented On 3 2:16PM ; [facility] [Z68.36 - Body mass index [B IA] 36.0-36.9, adult] assessment of body mass index Medical Established Patient with Latia Sparks 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 08/02/2022 Last Documented On 3 1:36PM ; [facility] Intervention and counseling on cessation of tobacco use, 3-10 minutes Discussed medication and nicotine replacement for tobacco cessation Medical Established Patient with Latia Sparks 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 08/02/2022 Last Documented On 3 1:36PM ; [facility] Visit for: person consulting for explanation of examination or test findings Medical Established Patient with Latia Hoffmanim 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 08/02/2022 Last Documented On 3 1:36PM ; [facility] Generalized anxiety disorder Establis hed Patient with Cinthia Stone [employer] 07/23/2022 Last Documented On 3 12:17AM ; [facility] Intervention and counseling on cessation of tobacco use, 3-10 minutes Discussed medication and nicotine replacement for tobacco cessation Established Patient with Cinthia Stone [employer] 07/23/2022 Last Documented On 3 12:17AM ; [facility] Moderate recurrent major depression E stablished Patient with Cinthia Stone [employer] 07/23/2022 Last Documented On 3 12:17AM ; [facility] Nicotine dependence Established Patient with Cinthia Stone [employer] 07/23/2022 Last Documented On 3 12:17AM ; [facility] Primary insomnia Established Patient with Deysi pugh Stone [employer] 07/23/2022 Last Documented On 3 12:17AM ; [facility] [Z68.36 - Body mass index [B IA] 36.0-36.9, adult] assessment of body mass index Medical New Patient with Latia Hoffmanim 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 07/23/2022 Last Documented On 3 2:32PM ; [facility] Diabetes Risk Test Score was nine score 07/23/2022 Medical New Patient with Latia Hoffmanim 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 07/23/2022 Last Documented On 3 2:32PM ; [facility] Intervention and counseling on cessation of tobacco use, 3-10 minutes Discussed medication and nicotine replacement for tobacco cessation Medical New Patient with Latia Hoffmanim 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 07/23/2022 Last Documented On 3 2:32PM ; [facility] Screening for Hep C Medical New Patient with Nad yelitza Hoffmanim 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 07/23/2022 Last Documented On 3 2:32PM ; [facility] Screening for HIV Medical New Patient with Hiren Sparks 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 07/23/2022 Last Documented On 3 2:32PM ; [facility] Venipuncture was performed Medical New Patient w dmitry Sparks 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 07/23/2022 Last Documented On 3 2:32PM ; [facility] Visit for routine adult H&P without abnormal findings Medical New Patient with Latia Sparks 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 07/23/2022 Last Documented On 3 2:32PM ; [facility] Work Phone: [phone]) 907-333111-30-2023 History general Narrative - Reported Includes: Medical History in patient's chart Description Last Updated Not planning to have a baby in the next 12 months 04/18/2023 Last Documented On 3 10:11PM ; [facility] No previous suicide attempt 07/24/2022 Last Documented On 3 12:17AM ; [facility] A recent examination by an ophthalmologi st 07/21/2022 07/23/2022 Last Documented On 3 2:32PM ; [facility] History of diabetes mellitus 07/23/2022 Last Documented On 3 2:32PM ; [facility] History of systemic hypertension 023 Last Documented On 3 2:32PM ; [facility] No previous hospitalizations 07/23/2022 Last Documented On 3 2:32PM ; [facility] Recent immunization for flu 07/23/2022 Last Documented On 3 2:32PM ; [facility] Work Phone: [phone]) [phone] Progress note* Progress note Date Encounter Last Documented by 04/18/2023 BH Established Patient Last docu mented on 04/20/2023; 1:42 PM, Janina FRIED; [facility] Active Problems & Conditions - 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 Patient reports she feels her PHQ-9 score is so high based on the amount of pain she is in and just getting out of the hospital. Patient reports that she doesn't see pain management for a few weeks and she is having a hard time sleeping. Patient reports she is not in need of any additional resources at this time. Patient reports she thinks her mood is situational. Chief Complaint The Chief Complaint is: Hospital follow up. History of Present Illness Tunde Jack is a 72 year old female. - Depression - Sleep disturbances Current Medication - 1st Tier Unifine Pentips Plus 33G X 4 MM Miscellaneous 33G X 4 MM Use needle for insulin into skin, never use the same needle, 30 days, 6 refills - Amitriptyline HCl 25 MG Oral Tablet one tablet at bedtime, 90 days, 1 refills - amLODIPine Besylate 10 MG Oral Tablet Take 1 tablet by mouth once a day, 90 days, 2 refills - ARIPiprazole 15 MG Oral Tablet Take 1 tablet by mouth once a day, 30 days, 5 refills - BD Pen Needle Racheal 2nd Gen 32G X 4 MM Miscellaneous 32G X 4 MM Use needle for insulin into skin. Never use the same needle., 30 days, 5 refills - Fenofibrate 160 MG Oral Tablet One tablet by mouth daily, 90 days, 2 refills - Flonase Allergy Relief 50 MCG/ACT Nasal Suspension 1-2 actuations in each nostril daily, 30 days, 3 refills - FLUoxetine HCl 10 MG Oral Capsule Take 1 tablet by mouth once a day, 30 days, 5 refills - Gabapentin 600 MG Oral Tablet One tablet by mouth three times a day., 30 days, 3 refills - hydrALAZINE HCl 25 MG Oral Tablet One tablet by mouth twice a day., 30 days, 4 refills - hydroCHLOROthiazide 25 MG Oral Tablet one tablet by mouth daily, 90 days, 1 refills - Insulin Lispro (1 Unit Dial) 100 UNIT/ML Subcutaneous Solution Pen-injector 14 units before dinner, 6 days, 5 refills - Insulin Lispro (1 Unit Dial) 100 UNIT/ML Subcutaneous Solution Pen-injector Inject 12 units subcutaneous before breakfast and before lunch14 units before dinner, 6 days, 5 refills - Lidocaine 5% External Patch 12 hours on 12 hours off. Make sure skin is dry, intact, 15 days, 0 refills - Losartan Potassium 100 MG Oral Tablet One tablet by mouth daily, 90 days, 1 refills - metFORMIN HCl 500 MG Oral Tablet one tablety twice a day, 30 days, 4 refills - Naproxen 500 MG Oral Tablet One tablet by mouth twice a day as needed for pain., 30 days, 3 refills - Ondansetron 4 MG Oral Tablet Disintegrating 1 tablet every 6 hour as need for nausea, 7 days, 0 refills - Pantoprazole Sodium 40 MG Oral Tablet Delayed Release one tablet by mouth daily, 90 days, 1 refills - Pravastatin Sodium 20 MG Oral Tablet One tablet by mouth daily., 90 days, 2 refills - Sucralfate 1 GM Oral Tablet one tablet by mouth at bedtime, 30 days, 3 refills - traZODone HCl 100 MG Oral Tablet One tablet by mouth daily., 30 days, 3 refills - traZODone HCl 50 MG Oral Tablet One tablet by mouth at bedtime., 90 days, 2 refills - Tresiba FlexTouch 100 UNIT/ML Subcutaneous Solution Pen-injector 35 units before dinner, 10 days, 4 refills - Trulicity 1.5 MG/0.5ML Subcutaneous Solution Pen-injector 1.5 mg once a week, 30 days, 4 refills Past Medical/Surgical History Other: No previous suicide attempt Reported: Medical: No previous hospitalizations. A recent examination by an river guide 07/21/2022. Immunization History: Recent immunization for flu. Diagnoses: Systemic hypertension. Diabetes mellitus Surgical: - Cholecystectomy - Hernia repair - Hysterectomy - Tubal ligation Social History Environmental Exposure: No secondhand cigarette smoke exposure. Personal: Recent emotional stress. Housing And Economic Circumstances: Living arrangements living arrangements: Allergies - Tai Reaction: Hives / Urticaria, Shock - Mellaril - PENICILLINS Reaction: Hives / Urticaria - Topamax Family History Maternal: Type 1 diabetes mellitus Physical Findings General Appearance: - Normal Appearance. Neurological: - Oriented to time, place, and person. Speech: - Is Normal. Psychiatric: - Mood is Euthymic. - Attitude Open. Affect: - Congruent with the mood. Assessment - F33.1 - Major depressive disorder, recurrent, moderate Therapy - Brief solution-focused therapy. - Collaborated with patient and provider: Counseling/Education [facility] offered active and supportive listening, validated emotions and feelings, and processed current stressors with being in the hospital. [facility] encouraged patient to utilize positive supports and coping skills. . Plan P to follow up with patient at next scheduled visit. . Health Reminders - Eye Exam satisfied 07/21/2022. 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 Referred Here Not referred by urgent care clinic. Referred by emergency room. No prior encounters. - Data to be reviewed: no clinical lab tests History of Present Illness Tunde Jack is a 72 year old female. - Allergy list reviewed - Reviewed Medications - Medication list reviewed - test - would not like a test Medically established patient presented for hospital follow up. Medical history is significant for diabetes mellitus, essential l hypertension, generalized anxiety disorder, hyperlipidemia, major depression, and primary insomnia. The patient was hospitalized for hypoxia and upper respiratory infection for about ten days. The patient is currently still taking antibiotic. Denies any fever/chills. The patient complains of lower back pain and stiffness from being at hospital, sleeping in hospital bed. In house A1c increase to 7.4 due to steroids. The patient denied any other concerns. Will order lidocaine and naproxen. Follow up in 3 months Current Medication - 1st Tier Unifine Pentips Plus 33G X 4 MM Miscellaneous 33G X 4 MM Use needle for insulin into skin, never use the same needle, 30 days, 6 refills - Amitriptyline HCl 25 MG Oral Tablet one tablet at bedtime, 90 days, 1 refills - amLODIPine Besylate 10 MG Oral Tablet Take 1 tablet by mouth once a day, 90 days, 2 refills - ARIPiprazole 15 MG Oral Tablet Take 1 tablet by mouth once a day, 30 days, 5 refills - BD Pen Needle Racheal 2nd Gen 32G X 4 MM Miscellaneous 32G X 4 MM Use needle for insulin into skin. Never use the same needle., 30 days, 5 refills - Fenofibrate 160 MG Oral Tablet One tablet by mouth daily, 90 days, 2 refills - Flonase Allergy Relief 50 MCG/ACT Nasal Suspension 1-2 actuations in each nostril daily, 30 days, 3 refills - FLUoxetine HCl 10 MG Oral Capsule Take 1 tablet by mouth once a day, 30 days, 5 refills - Gabapentin 600 MG Oral Tablet One tablet by mouth three times a day., 30 days, 3 refills - hydrALAZINE HCl 25 MG Oral Tablet One tablet by mouth twice a day., 30 days, 4 refills - hydroCHLOROthiazide 25 MG Oral Tablet one tablet by mouth daily, 90 days, 1 refills - Insulin Lispro (1 Unit Dial) 100 UNIT/ML Subcutaneous Solution Pen-injector 14 units before dinner, 6 days, 5 refills - Insulin Lispro (1 Unit Dial) 100 UNIT/ML Subcutaneous Solution Pen-injector Inject 12 units subcutaneous before breakfast and before lunch14 units before dinner, 6 days, 5 refills - Losartan Potassium 100 MG Oral Tablet One tablet by mouth daily, 90 days, 1 refills - metFORMIN HCl 500 MG Oral Tablet one tablety twice a day, 30 days, 4 refills - Ondansetron 4 MG Oral Tablet Disintegrating 1 tablet every 6 hour as need for nausea, 7 days, 0 refills - Pantoprazole Sodium 40 MG Oral Tablet Delayed Release one tablet by mouth daily, 90 days, 1 refills - Pravastatin Sodium 20 MG Oral Tablet One tablet by mouth daily., 90 days, 2 refills - Sucralfate 1 GM Oral Tablet one tablet by mouth at bedtime, 30 days, 3 refills - traZODone HCl 100 MG Oral Tablet One tablet by mouth daily., 30 days, 3 refills - traZODone HCl 50 MG Oral Tablet One tablet by mouth at bedtime., 90 days, 2 refills - Tresiba FlexTouch 100 UNIT/ML Subcutaneous Solution Pen-injector 35 units before dinner, 10 days, 4 refills - Trulicity 1.5 MG/0.5ML Subcutaneous Solution Pen-injector 1.5 mg once a week, 30 days, 4 refills Past Medical/Surgical History Other: No previous suicide attempt Reported: Medical: No previous hospitalizations. A recent examination by an river guide 07/21/2022. Immunization History: Recent immunization for flu. : Not planning to have a baby in the next 12 months. Diagnoses: Systemic hypertension. Diabetes mellitus Surgical: - Cholecystectomy - Hernia repair - Hysterectomy - Tubal ligation Social History Environmental Exposure: Secondhand cigarette smoke exposure. Tobacco use: Cigarette smoking Light (1-10/day). Not using electronic cigarettes/vaping. Alcohol: Not using alcohol. Drug Use: Not using drugs denied by patient. Sexual: Denied sexual activity, sexual orientation Straight (not lesbian or dhaliwal), and gender identity Female. Allergies - [place] Reaction: Hives / Urticaria, Shock - Mellaril - PENICILLINS Reaction: Hives / Urticaria - Topamax Family History Maternal: Type 1 diabetes mellitus Review Of Systems Head: No head symptoms. Cardiovascular: No cardiovascular symptoms, no chest pain or discomfort, no palpitations, the heart rate was not slow, and the heart rate was not fast. Pulmonary: No pulmonary symptoms, no daytime asthma symptoms, and no nighttime asthma symptoms. Gastrointestinal: No gastrointestinal symptoms. Musculoskeletal: No musculoskeletal symptoms. Neurological: No neurological symptoms, no dizziness, no vertigo, no lightheadedness, and no fainting. Psychological: No psychological symptoms. Skin: No skin symptoms. Physical Findings - Vitals taken 04/18/2023 02:10 pm BP-Sitting R138/80 mmHg BP Cuff SizeLarge Pulse Rate-Sbmxqgg55 bpm Respiration Rate18 per min Temp-Oral97.8 F Oxsvbv15 in Ulerkq290 lbs Body Mass Index35.7 kg/m2 Body Surface Area2 m2 Oxygen Sttbrhmcij41 % O2 DeviceNone (Room Air) [id number] % Vital Signs: - Systolic blood pressure 130 - 139 mmHg. - Diastolic blood pressure 80-89 mmHg. General Appearance: - Awake. - Alert. - Well developed. - Well nourished. - Body odor was normal. - In no acute distress. Oral Cavity: - General condition was good. Chest: - Normal. Lungs: - Respiration rhythm and depth was normal. - Respiratory movements were normal. - Clear to auscultation. Cardiovascular: Heart Rate And Rhythm: - Normal. Heart Sounds: - Normal. Murmurs: - No murmurs were heard. Thrill: - No thrill. Peripheral Vascular Exam: - Normal. Musculoskeletal System: General/bilateral: - Normal movement of all extremities. Posture: General/bilateral: - Posture was normal. Neurological: - Oriented to time, place, and person. Psychiatric: - Expression of emotions finding was normal. Appearance: - Not tired. - Clothing was appropriate. - Grooming was normal. Skin: - General appearance was normal. - Texture was normal. Tests Blood Analysis: Hemoglobin Studies: ValueDate Blood hemoglobin A1c 7.4%04/18/2023 Blood Endocrine Laboratory Tests: Value Blood glucose level by fingerstick Non-fasting 76 mg/dl Laboratory-based Chemistry: Other Laboratory Tests: Screening for sexually transmitted infections was not performed. Assessment - Z68.35 - Body mass index [BMI] 35.0-35.9, adult - E11.610 - Type 2 diabetes mellitus with diabetic neuropathic arthropathy - F17.200 - Nicotine dependence, unspecified, uncomplicated Therapy - Patient refused flu vaccine. Discussed benefits of flu vaccine with Patient. - Referral to mental health team. Vaccinations - Received dose of Reported: Patient has received the COVID Vaccine Counseling/Education - Does not want to stop using current contraception - Not wishing to stop smoking offered Quit Line information - Discussed nutritional needs teach healthy choices including fruits and vegetables - Patient education about a proper diet 35.7 - Patient education about physical activity benefits - Patient education about medication - Patient education about mental health - Not requesting contraception - Discussed concerns about exercise: promote physical activity Plan StartCited- Radiculopathy, lumbosacral region Naproxen 500 MG tablet One tablet by mouth twice a day as needed for pain., 30 days, 3 refills Lidocaine 5% patch 12 hours on 12 hours off. Make sure skin is dry, intact, 15 days, 0 refills EndCited - Plan - start medication Lidocaine Naproxen F/u in 3 months. Notes - Patient is not interested in the COVID-19 vaccination at this time. Practice Management Hemoglobin A1c level >=7.0 and < 8.0%. User Defined 1 DALI-2 score was two 04/18/2023, DALI-7 score [DALI-7] Feeling nervous, anxious or on edge? + 1 pt : Several days, [DALI-7] Not being able to stop or control worrying? + 1 pt : Several days, Patient Health Questionnaire 9-Item total score was 15 04/18/2023 If you checked off problems, how difficult is it for you to do your work? + : Extremely difficult, [PHQ-9-1] Little interest or pleasure in doing things? + 0 pt : Not at all, [PHQ-9-2] Feeling down, depressed, or hopeless? + 3 pt : Nearly every day, [PHQ-9-3] Trouble falling or staying asleep or sleeping too much? + 3 pt : Nearly every day, [PHQ-9-4] Feeling tired or having little energy? + 3 pt : Nearly every day, [PHQ-9-5] Poor appetite or overeating? + 0 pt : Not at all, [PHQ-9-6] Feeling bad about yourself-or that you are a failure + 3 pt : Nearly every day, [PHQ-9-7] Trouble concentrating on things such as reading the newspaper + 3 pt : Nearly every day, [PHQ-9-8] Moving or speaking so slowly that other people have noticed. + 0 pt : Not at all, and [PHQ-9-9] Thoughts that you would be better off or hurting yourself? + 0 pt : Not at all. 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 Has had multiple negative COVID test. The patient is unable to drive to clinic for evaluation. Will order Z-pack, encouraged taking Loratadine and Flonase. . History of Present Illness Tunde Jack is a 72 year old female. - Allergy list reviewed - Medication list reviewed Current Medication - 1st Tier Unifine Pentips Plus 33G X 4 MM Miscellaneous 33G X 4 MM Use needle for insulin into skin, never use the same needle, 30 days, 6 refills - ALPRAZolam 0.5 MG Oral Tablet One tablet by mouth twice a day as NEEDED for severe anxiety attack ONLY., 10 days, 3 refills - Amitriptyline HCl 25 MG Oral Tablet one tablet at bedtime, 90 days, 1 refills - amLODIPine Besylate 10 MG Oral Tablet Take 1 tablet by mouth once a day, 90 days, 2 refills - ARIPiprazole 15 MG Oral Tablet Take 1 tablet by mouth once a day, 30 days, 5 refills - BD Pen Needle Racheal 2nd Gen 32G X 4 MM Miscellaneous 32G X 4 MM Use needle for insulin into skin. Never use the same needle., 30 days, 5 refills - Fenofibrate 160 MG Oral Tablet One tablet by mouth daily, 90 days, 2 refills - Flonase Allergy Relief 50 MCG/ACT Nasal Suspension 1-2 actuations in each nostril daily, 30 days, 3 refills - FLUoxetine HCl 10 MG Oral Capsule Take 1 tablet by mouth once a day, 30 days, 5 refills - Gabapentin 600 MG Oral Tablet One tablet by mouth three times a day., 30 days, 3 refills - hydrALAZINE HCl 25 MG Oral Tablet One tablet by mouth twice a day., 30 days, 4 refills - hydroCHLOROthiazide 25 MG Oral Tablet one tablet by mouth daily, 90 days, 1 refills - Insulin Lispro (1 Unit Dial) 100 UNIT/ML Subcutaneous Solution Pen-injector 14 units before dinner, 6 days, 5 refills - Insulin Lispro (1 Unit Dial) 100 UNIT/ML Subcutaneous Solution Pen-injector Inject 12 units subcutaneous before breakfast and before lunch14 units before dinner, 6 days, 5 refills - Losartan Potassium 100 MG Oral Tablet One tablet by mouth daily, 90 days, 1 refills - metFORMIN HCl 500 MG Oral Tablet one tablety twice a day, 30 days, 4 refills - Ondansetron 4 MG Oral Tablet Disintegrating 1 tablet every 6 hour as need for nausea, 7 days, 0 refills - Pantoprazole Sodium 40 MG Oral Tablet Delayed Release one tablet by mouth daily, 90 days, 1 refills - Pravastatin Sodium 20 MG Oral Tablet One tablet by mouth daily., 90 days, 2 refills - Sucralfate 1 GM Oral Tablet one tablet by mouth at bedtime, 30 days, 3 refills - traZODone HCl 100 MG Oral Tablet One tablet by mouth daily., 30 days, 3 refills - traZODone HCl 50 MG Oral Tablet One tablet by mouth at bedtime., 90 days, 2 refills - Tresiba FlexTouch 100 UNIT/ML Subcutaneous Solution Pen-injector 35 units before dinner, 10 days, 4 refills - Trulicity 1.5 MG/0.5ML Subcutaneous Solution Pen-injector 1.5 mg once a week, 30 days, 4 refills Past Medical/Surgical History Other: No previous suicide attempt Reported: Medical: No previous hospitalizations. A recent examination by an river guide 07/21/2022. Immunization History: Recent immunization for flu. Diagnoses: Systemic hypertension. Diabetes mellitus Surgical: - Cholecystectomy - Hernia repair - Hysterectomy - Tubal ligation Allergies - [place] Reaction: Hives / Urticaria, Shock - Mellaril - PENICILLINS Reaction: Hives / Urticaria - Topamax Family History Maternal: Type 1 diabetes mellitus Plan StartCited- Acute sinusitis, unspecified Azithromycin 250 MG tablet 500 mg by mouth x 1 day 1, then 250 mg by mouth daily x 4 days., 5 days, 0 refills EndCited [facility]11-13-2023 Instructions Includes: Instructions for all patient encounters Instructions to patient Intervention and counseling on cessation of tobacco use, 3-10 minutes Discussed medication and nicotine replacement for tobacco cessation Last Documented On 3 1:05PM ; [facility] Intervention and counseling on cessation of tobacco use, 3-10 minutes Discussed medication and nicotine replacement for tobacco cessation Last Documented On 3 1:02PM ; [facility] Intervention and counseling on cessation of tobacco use, 3-10 minutes Discussed medication and nicotine replacement for tobacco cessation Last Documented On 3 1:13PM ; [facility] Education and Decision Aids were provided during visit for: Discussed nutritional needs teach healthy choices including fruits and vegetables Last Documented On 3 2:25PM ; [facility] Patient education about a pr oper diet 37.4 Last Documented On 3 2:25PM ; [facility] Patient education about phys ical activity benefits Last Documented On 3 2:50PM ; [facility] Patient education about medi cation Last Documented On 3 2:50PM ; [facility] Patient education about ment al health Last Documented On 3 2:50PM ; [facility] Discussed concerns about exe rcise : promote physical activity Last Documented On 3 2:25PM ; [facility] encouraged patient to ut ilize positive supports and coping skills. ~[facility] encouraged patient to contact [facility] if they need any additional support or resources. ~ Last Documented On 3 10:03PM ; [facility] Discussed nutritional needs teach healthy choices including fruits and vegetables Last Documented On 3 10:23AM ; [facility] Patient education about a pr oper diet 36.7 Last Documented On 3 10:23AM ; [facility] Patient education about phys ical activity benefits Last Documented On 3 1:07PM ; [facility] Patient education about medi cation Last Documented On 3 1:07PM ; [facility] Patient education about ment al health Last Documented On 3 1:07PM ; [facility] Discussed concerns about exe rcise : promote physical activity Last Documented On 3 10:23AM ; [facility] introduced patient to [facility] integrated model of care. ~P offered active and supportive listening, normalized emotions and feelings, and processed current stressors. ~Discussed healthy coping skills and positive supports in patient's life. ~Discussed healthy lifestyle behaviors. ~ Last Documented On 3 12:10AM ; [facility] Discussed nutritional needs 36 teach healthy choices including fruits and vegetables Last Documented On 3 12:20PM ; [facility] Patient education about a pr oper diet 36 Last Documented On 3 12:20PM ; [facility] Discussed concerns about exe rcise : promote physical activity Last Documented On 3 12:20PM ; [facility] Referred Patient to a Diabet es Self-Management Program Last Documented On 3 1:46PM ; [facility] Work Phone: 1([phone]) 430-360806-29-2023 Evaluation note Includes: Assessments for all patient encounters Findings Encounter Date Assessment of body mass index Medical Es tablished Patient with Latia Sparks [facility] 11/15/2022 Last Documented On 3 2:53PM ; [facility] Generalized anxiety disorder BH Establis hed Patient with Janina PARRISH-S 11/08/2022 Last Documented On 3 10:03PM ; [facility] Hyperlipidemia Nurse Visit with Latia Sparks [facility] 11/08/2022 Last Documented On 3 2:16PM ; [facility] Venipuncture was performed Nurse Visit with Kathia Sparks [facility] 11/08/2022 Last Documented On 3 2:16PM ; [facility] [Z68.36 - Body mass index [B IA] 36.0-36.9, adult] assessment of body mass index Medical Established Patient with Latia Sparks [facility] 08/02/2022 Last Documented On 3 1:36PM ; [facility] Intervention and counseling on cessation of tobacco use, 3-10 minutes Discussed medication and nicotine replacement for tobacco cessation Medical Established Patient with Latia Sparks 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 08/02/2022 Last Documented On 3 1:36PM ; [facility] Visit for: person consulting for explanation of examination or test findings Medical Established Patient with Latia Sparks 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 08/02/2022 Last Documented On 3 1:36PM ; [facility] Generalized anxiety disorder Establis hed Patient with Cinthia Stone [employer] 07/23/2022 Last Documented On 3 12:17AM ; [facility] Intervention and counseling on cessation of tobacco use, 3-10 minutes Discussed medication and nicotine replacement for tobacco cessation Established Patient with Cinthia Stone [employer] 07/23/2022 Last Documented On 3 12:17AM ; [facility] Moderate recurrent major depression E stablished Patient with Cinthia Stone [employer] 07/23/2022 Last Documented On 3 12:17AM ; [facility] Nicotine dependence Established Patient with Cinthia Stone [employer] 07/23/2022 Last Documented On 3 12:17AM ; [facility] Primary insomnia Established Patient with Deysi pugh Stone [employer] 07/23/2022 Last Documented On 3 12:17AM ; [facility] [Z68.36 - Body mass index [B IA] 36.0-36.9, adult] assessment of body mass index Medical New Patient with Latia Sparks 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 07/23/2022 Last Documented On 3 2:32PM ; [facility] Diabetes Risk Test Score was nine score 07/23/2022 Medical New Patient with Latia Sparks 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 07/23/2022 Last Documented On 3 2:32PM ; [facility] Intervention and counseling on cessation of tobacco use, 3-10 minutes Discussed medication and nicotine replacement for tobacco cessation Medical New Patient with Latia Sparks 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 07/23/2022 Last Documented On 3 2:32PM ; [facility] Screening for Hep C Medical New Patient with Nad yelitza Sparks 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 07/23/2022 Last Documented On 3 2:32PM ; [facility] Screening for HIV Medical New Patient with Hiren Sparks 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 07/23/2022 Last Documented On 3 2:32PM ; [facility] Venipuncture was performed Medical New Patient w dmitry Sparks [facility] 07/23/2022 Last Documented On 3 2:32PM ; [facility] Visit for routine adult H&P without abnormal findings Medical New Patient with Latia Sparks 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 07/23/2022 Last Documented On 3 2:32PM ; [facility] Work Phone: 1(644) 189-955506-29-2023 Progress note* Progress note Date Encounter Last Documented by 11/15/2022 Medical Established Patient Last documented on 11/15/2022; 2:53 PM, Latia Sparks [facility]; [facility] Active Problems & Conditions - 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 Referred Here No prior encounters. History of Present Illness Tunde Jack is a 72 year old female. - Allergy list reviewed - Reviewed Medications - Medication list reviewed Medically established patient presented to discuss lab results. The patient seen Dr. Saleem for diabetics. The patient?s renal function is improving; however, triglycerides are increasing. The patient is currently living at a [facility] that does not follow any diabetic or low cholesterol diet. The patient is currently prescribed 20mg Pravastatin and Fenofibrate 145mg. Will increase 160 mg Fenofibrate. The patient is having lumbar spine surgery on November 24 Current Medication - 1st Tier Unifine Pentips Plus 33G X 4 MM Miscellaneous 33G X 4 MM Use needle for insulin into skin, never use the same needle, 30 days, 6 refills - ALPRAZolam 0.5 MG Oral Tablet One tablet by mouth twice a day as NEEDED for severe anxiety attack ONLY., 10 days, 2 refills - Amitriptyline HCl 25 MG Oral Tablet one tablet at bedtime, 90 days, 0 refills - amLODIPine Besylate 10 MG Oral Tablet Take 1 tablet by mouth once a day, 30 days, 5 refills - ARIPiprazole 15 MG Oral Tablet Take 1 tablet by mouth once a day, 30 days, 5 refills - BD Pen Needle Racheal 2nd Gen 32G X 4 MM Miscellaneous 32G X 4 MM Use needle for insulin into skin. Never use the same needle., 30 days, 5 refills - Flonase Allergy Relief 50 MCG/ACT Nasal Suspension 1-2 actuations in each nostril daily, 30 days, 3 refills - FLUoxetine HCl 10 MG Oral Capsule Take 1 tablet by mouth once a day, 30 days, 5 refills - Gabapentin 600 MG Oral Tablet One tablet by mouth three times a day., 30 days, 3 refills - hydrALAZINE HCl 25 MG Oral Tablet One tablet by mouth twice a day., 30 days, 3 refills - hydroCHLOROthiazide 25 MG Oral Tablet one tablet by mouth daily, 90 days, 1 refills - Insulin Lispro (1 Unit Dial) 100 UNIT/ML Subcutaneous Solution Pen-injector 14 units before dinner, 6 days, 5 refills - Insulin Lispro (1 Unit Dial) 100 UNIT/ML Subcutaneous Solution Pen-injector Inject 12 units subcutaneous before breakfast and before lunch14 units before dinner, 6 days, 5 refills - Losartan Potassium 100 MG Oral Tablet One tablet by mouth daily, 90 days, 1 refills - metFORMIN HCl 500 MG Oral Tablet one tablety twice a day, 30 days, 4 refills - Pantoprazole Sodium 40 MG Oral Tablet Delayed Release one tablet by mouth daily, 90 days, 1 refills - Sucralfate 1 GM Oral Tablet one tablet by mouth at bedtime, 30 days, 3 refills - traZODone HCl 100 MG Oral Tablet One tablet by mouth daily., 30 days, 3 refills - traZODone HCl 50 MG Oral Tablet One tablet by mouth at bedtime., 90 days, 0 refills - Tresiba FlexTouch 100 UNIT/ML Subcutaneous Solution Pen-injector 35 units before dinner, 10 days, 4 refills - Trulicity 1.5 MG/0.5ML Subcutaneous Solution Pen-injector 1.5 mg once a week, 30 days, 4 refills Past Medical/Surgical History Other: No previous suicide attempt Reported: Medical: No previous hospitalizations. A recent examination by an river guide 07/21/2022. Immunization History: Recent immunization for flu. Diagnoses: Systemic hypertension. Diabetes mellitus Surgical: - Cholecystectomy - Hernia repair - Hysterectomy - Tubal ligation Social History Environmental Exposure: Secondhand cigarette smoke exposure. Tobacco use: Cigarette smoking Moderate (11-19/day). Not using electronic cigarettes/vaping. Sexual: Sexual orientation was 37.4 Straight (not lesbian or dhaliwal) and gender identity Female. Allergies - [place] Reaction: Hives / Urticaria, Shock - Mellaril - P[place]ICILL[place] Reaction: Hives / Urticaria - Topamax Family History Maternal: Type 1 diabetes mellitus Review Of Systems Head: No head symptoms. Cardiovascular: No cardiovascular symptoms, no chest pain or discomfort, no palpitations, the heart rate was not slow, and the heart rate was not fast. Pulmonary: No pulmonary symptoms, no daytime asthma symptoms, and no nighttime asthma symptoms. Gastrointestinal: No gastrointestinal symptoms. Endocrine: No endocrine symptoms. Musculoskeletal: No musculoskeletal symptoms. Neurological: No neurological symptoms, no dizziness, no vertigo, no lightheadedness, and no fainting. Psychological: No psychological symptoms. Skin: No skin symptoms. Physical Findings - Vitals taken 11/15/2022 02:17 pm BP-Sitting R143/78 mmHg Pulse Rate-Javgqyc46 bpm Oiikwp07 in Amuipr790 lbs Body Mass Index37.4 kg/m2 Body Surface Area2 m2 Oxygen Wpixnndfot58 % - Vitals taken 11/15/2022 02:24 pm BP-Vbrjcae028/82 mmHg General Appearance: - Awake. - Alert. - Well developed. - Well nourished. - Body odor was normal. - In no acute distress. Oral Cavity: - General condition was good. Chest: - Normal. Lungs: - Respiration rhythm and depth was normal. - Respiratory movements were normal. - Clear to auscultation. Cardiovascular: Heart Rate And Rhythm: - Normal. Heart Sounds: - Normal. Murmurs: - No murmurs were heard. Thrill: - No thrill. Peripheral Vascular Exam: - Normal. Musculoskeletal System: General/bilateral: - Normal movement of all extremities. Posture: General/bilateral: - Posture was normal. Neurological: - Oriented to time, place, and person. Psychiatric: - Expression of emotions finding was normal. Appearance: - Not tired. - Clothing was appropriate. - Grooming was normal. Skin: - General appearance was normal. - Texture was normal. Assessment - Z68.37 - Body mass index [BMI] 37.0-37.9, adult Previous Tests Blood Analysis: Blood Endocrine Laboratory Tests: ValueDate Blood hemoglobin A1c/total ratio - 7.11/07/2022 A1C:7.0 Done On Date: 11.07.22 Therapy - Patient refused flu vaccine. Discussed benefits of flu vaccine with Patient. Vaccinations - Received dose of Reported: Patient has received the COVID Vaccine Counseling/Education - Not wishing to stop smoking offered Quit Line information - Discussed nutritional needs teach healthy choices including fruits and vegetables - Patient education about a proper diet 37.4 - Patient education about physical activity benefits - Patient education about medication - Patient education about mental health - Discussed concerns about exercise: promote physical activity Plan StartCited- Hyperlipidemia, unspecified Pravastatin Sodium 40 MG tablet One tablet by mouth daily., 90 days, 0 refills Pravastatin Sodium 20 MG tablet One tablet by mouth daily., 90 days, 0 refills EndCited StartCited- Mixed hyperlipidemia Fenofibrate 160 MG tablet One tablet by mouth daily, 90 days, 0 refills EndCited StartCited- Nausea Ondansetron 4 MG tablet 1 tablet every 6 hour as need for nausea, 7 days, 0 refills EndCited - Plan - modify medication - Plan - increase medication to increase effectiveness Fenofibrate 165 mg F/U in 6 months. Notes - Patient is not interested in the COVID-19 vaccination at this time. Practice Management Systolic Blood Pressure > or = 140 mmHg and diastolic 80-89 mmHg diastolic 80-89 mmHg. [facility]06-24-2023 Instructions Includes: Instructions for all patient encounters Instructions to patient Intervention and counseling on cessation of tobacco use, 3-10 minutes Discussed medication and nicotine replacement for tobacco cessation Last Documented On 3 1:05PM ; [facility] Intervention and counseling on cessation of tobacco use, 3-10 minutes Discussed medication and nicotine replacement for tobacco cessation Last Documented On 3 1:02PM ; [facility] Intervention and counseling on cessation of tobacco use, 3-10 minutes Discussed medication and nicotine replacement for tobacco cessation Last Documented On 3 1:13PM ; [facility] Education and Decision Aids were provided during visit for: [facility] encouraged patient to ut ilize positive supports and coping skills. ~[facility] encouraged patient to contact [facility] if they need any additional support or resources. ~ Last Documented On 3 10:03PM ; [facility] Discussed nutritional needs teach healthy choices including fruits and vegetables Last Documented On 3 10:23AM ; [facility] Patient education about a pr oper diet 36.7 Last Documented On 3 10:23AM ; [facility] Patient education about phys ical activity benefits Last Documented On 3 1:07PM ; [facility] Patient education about medi cation Last Documented On 3 1:07PM ; [facility] Patient education about ment al health Last Documented On 3 1:07PM ; [facility] Discussed concerns about exe rcise : promote physical activity Last Documented On 3 10:23AM ; [facility] introduced patient to [facility] integrated model of care. ~[facility] offered active and supportive listening, normalized emotions and feelings, and processed current stressors. ~Discussed healthy coping skills and positive supports in patient's life. ~Discussed healthy lifestyle behaviors. ~ Last Documented On 3 12:10AM ; [facility] Discussed nutritional needs 36 teach healthy choices including fruits and vegetables Last Documented On 3 12:20PM ; [facility] Patient education about a pr oper diet 36 Last Documented On 3 12:20PM ; [facility] Discussed concerns about exe rcise : promote physical activity Last Documented On 3 12:20PM ; [facility] Referred Patient to a Diabet es Self-Management Program Last Documented On 3 1:46PM ; [facility] Work Phone: 1(422) 283-669906-22-2023 Evaluation note Includes: Assessments for all patient encounters Findings Encounter Date Hyperlipidemia Nurse Visit with Latia Sparks [facility] 11/08/2022 Last Documented On 3 2:16PM ; [facility] Venipuncture was performed Nurse Visit with Kathia Sparks [facility] 11/08/2022 Last Documented On 3 2:16PM ; [facility] [Z68.36 - Body mass index [B IA] 36.0-36.9, adult] assessment of body mass index Medical Established Patient with Latia Sparks [facility] 08/02/2022 Last Documented On 3 1:36PM ; [facility] Intervention and counseling on cessation of tobacco use, 3-10 minutes Discussed medication and nicotine replacement for tobacco cessation Medical Established Patient with Latia Sparks [facility] 08/02/2022 Last Documented On 3 1:36PM ; [facility] Visit for: person consulting for explanation of examination or test findings Medical Established Patient with Latia Sparks [facility] 08/02/2022 Last Documented On 3 1:36PM ; [facility] Generalized anxiety disorder BH Establis hed Patient with Cinthia Stone [employer] 07/23/2022 Last Documented On 3 12:17AM ; [facility] Intervention and counseling on cessation of tobacco use, 3-10 minutes Discussed medication and nicotine replacement for tobacco cessation Established Patient with Cinthia Stone [employer] 07/23/2022 Last Documented On 3 12:17AM ; [facility] Moderate recurrent major depression E stablished Patient with Cinthia Stone [employer] 07/23/2022 Last Documented On 3 12:17AM ; [facility] Nicotine dependence Established Patient with Cinthia Stone [employer] 07/23/2022 Last Documented On 3 12:17AM ; [facility] Primary insomnia Established Patient with Deysi pugh Stone [employer] 07/23/2022 Last Documented On 3 12:17AM ; [facility] [Z68.36 - Body mass index [B IA] 36.0-36.9, adult] assessment of body mass index Medical New Patient with Latia Hoffmanim 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 07/23/2022 Last Documented On 3 2:32PM ; [facility] Diabetes Risk Test Score was nine score 07/23/2022 Medical New Patient with Latia Sparks 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 07/23/2022 Last Documented On 3 2:32PM ; [facility] Intervention and counseling on cessation of tobacco use, 3-10 minutes Discussed medication and nicotine replacement for tobacco cessation Medical New Patient with Latia Sparks 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 07/23/2022 Last Documented On 3 2:32PM ; [facility] Screening for Hep C Medical New Patient with Nad yelitzakathryn FarooqSparks 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 07/23/2022 Last Documented On 3 2:32PM ; [facility] Screening for HIV Medical New Patient with Hiren a Sparks 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 07/23/2022 Last Documented On 3 2:32PM ; [facility] Venipuncture was performed Medical New Patient w dmitry Hoffmanim [facility] 07/23/2022 Last Documented On 3 2:32PM ; [facility] Visit for routine adult H&P without abnormal findings Medical New Patient with Latiakathryn Hoffmanim 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 07/23/2022 Last Documented On 3 2:32PM ; [facility] Work Phone: [phone]) 627-198406-22-2023 Evaluation note Includes: Assessments for all patient encounters Findings Encounter Date Generalized anxiety disorder BH Establis hed Patient with Janina Meghan [employer] 11/08/2022 Last Documented On 3 10:03PM ; [facility] Hyperlipidemia Nurse Visit with Latia Hoffmanim 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 11/08/2022 Last Documented On 3 2:16PM ; [facility] Venipuncture was performed Nurse Visit with Kahtia Hoffmanim [facility] 11/08/2022 Last Documented On 3 2:16PM ; [facility] [Z68.36 - Body mass index [B IA] 36.0-36.9, adult] assessment of body mass index Medical Established Patient with Latia Sparks 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 08/02/2022 Last Documented On 3 1:36PM ; [facility] Intervention and counseling on cessation of tobacco use, 3-10 minutes Discussed medication and nicotine replacement for tobacco cessation Medical Established Patient with Latia Sparks 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 08/02/2022 Last Documented On 3 1:36PM ; [facility] Visit for: person consulting for explanation of examination or test findings Medical Established Patient with Latia Hoffmanim 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 08/02/2022 Last Documented On 3 1:36PM ; [facility] Generalized anxiety disorder Establis hed Patient with Cinthia Stone [employer] 07/23/2022 Last Documented On 3 12:17AM ; [facility] Intervention and counseling on cessation of tobacco use, 3-10 minutes Discussed medication and nicotine replacement for tobacco cessation Established Patient with Cinthia Stone [employer] 07/23/2022 Last Documented On 3 12:17AM ; [facility] Moderate recurrent major depression E stablished Patient with Cinthia Stone [employer] 07/23/2022 Last Documented On 3 12:17AM ; [facility] Nicotine dependence Established Patient with Cinthia Stone [employer] 07/23/2022 Last Documented On 3 12:17AM ; [facility] Primary insomnia Established Patient with Deysi pugh Stone [employer] 07/23/2022 Last Documented On 3 12:17AM ; [facility] [Z68.36 - Body mass index [B IA] 36.0-36.9, adult] assessment of body mass index Medical New Patient with Latia Sparks 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 07/23/2022 Last Documented On 3 2:32PM ; [facility] Diabetes Risk Test Score was nine score 07/23/2022 Medical New Patient with Latia Sparks 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 07/23/2022 Last Documented On 3 2:32PM ; [facility] Intervention and counseling on cessation of tobacco use, 3-10 minutes Discussed medication and nicotine replacement for tobacco cessation Medical New Patient with Latia Sparks 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 07/23/2022 Last Documented On 3 2:32PM ; [facility] Screening for Hep C Medical New Patient with Nad yelitza Sparks 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 07/23/2022 Last Documented On 3 2:32PM ; [facility] Screening for HIV Medical New Patient with Hiren Sparks 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 07/23/2022 Last Documented On 3 2:32PM ; [facility] Venipuncture was performed Medical New Patient w dmitry Sparks 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 07/23/2022 Last Documented On 3 2:32PM ; [facility] Visit for routine adult H&P without abnormal findings Medical New Patient with Latia Sparks 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 07/23/2022 Last Documented On 3 2:32PM ; [facility] Work Phone: [phone]) 861-424506-22-2023 Progress note* Progress note Date Encounter Last Documented by 11/08/2022 Nurse Visit Last documented on 11/08/2022; 2:16 PM, Latia Sparks [facility]; [facility] Active Problems & Conditions - 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 - I10 - Essential Hypertension - F41.1 - Generalized Anxiety Disorder - Hyperlipidemia - F33.1 - Major Depression Recurrent Moderate - F17.200 - Nicotine Dependence Uncomplicated - F51.01 - Primary Insomnia Current Medication - 1st Tier Unifine Pentips Plus 33G X 4 MM Miscellaneous 33G X 4 MM Use needle for insulin into skin, never use the same needle, 30 days, 6 refills - Amitriptyline HCl 25 MG Oral Tablet one tablet at bedtime, 90 days, 0 refills - amLODIPine Besylate 10 MG Oral Tablet Take 1 tablet by mouth once a day, 30 days, 5 refills - ARIPiprazole 15 MG Oral Tablet Take 1 tablet by mouth once a day, 30 days, 5 refills - BD Pen Needle Racheal 2nd Gen 32G X 4 MM Miscellaneous 32G X 4 MM Use needle for insulin into skin. Never use the same needle., 30 days, 5 refills - Fenofibrate 145 MG Oral Tablet One tablet by mouth daily, 90 days, 0 refills - Flonase Allergy Relief 50 MCG/ACT Nasal Suspension 1-2 actuations in each nostril daily, 30 days, 3 refills - FLUoxetine HCl 10 MG Oral Capsule Take 1 tablet by mouth once a day, 30 days, 5 refills - Gabapentin 600 MG Oral Tablet One tablet by mouth three times a day., 30 days, 3 refills - hydrALAZINE HCl 25 MG Oral Tablet One tablet by mouth twice a day., 30 days, 3 refills - hydroCHLOROthiazide 25 MG Oral Tablet one tablet by mouth daily, 90 days, 1 refills - Insulin Lispro (1 Unit Dial) 100 UNIT/ML Subcutaneous Solution Pen-injector 14 units before dinner, 6 days, 5 refills - Insulin Lispro (1 Unit Dial) 100 UNIT/ML Subcutaneous Solution Pen-injector Inject 12 units subcutaneous before breakfast and before lunch14 units before dinner, 6 days, 5 refills - Losartan Potassium 100 MG Oral Tablet One tablet by mouth daily, 90 days, 1 refills - metFORMIN HCl 500 MG Oral Tablet one tablety twice a day, 30 days, 4 refills - Pantoprazole Sodium 40 MG Oral Tablet Delayed Release one tablet by mouth daily, 90 days, 1 refills - Pravastatin Sodium 20 MG Oral Tablet One tablet by mouth daily., 90 days, 1 refills - Sucralfate 1 GM Oral Tablet one tablet by mouth at bedtime, 30 days, 3 refills - traZODone HCl 100 MG Oral Tablet One tablet by mouth daily., 30 days, 3 refills - Tresiba FlexTouch 100 UNIT/ML Subcutaneous Solution Pen-injector 35 units before dinner, 10 days, 4 refills - Trulicity 1.5 MG/0.5ML Subcutaneous Solution Pen-injector 1.5 mg once a week, 30 days, 4 refills Past Medical/Surgical History Other: No previous suicide attempt Reported: Medical: No previous hospitalizations. A recent examination by an river guide 07/21/2022. Immunization History: Recent immunization for flu. Diagnoses: Systemic hypertension. Diabetes mellitus Surgical: - Cholecystectomy - Hernia repair - Hysterectomy - Tubal ligation Allergies - No Known Allergies Family History Maternal: Type 1 diabetes mellitus Tests Laboratory Studies: Vascular Procedures: Right Antecubital Space. Assessment - Z01.812 - Encounter for preprocedural laboratory examination - E78.5 - Hyperlipidemia, unspecified Plan StartCited- Generalized anxiety disorder ALPRAZolam 0.5 MG tablet One tablet by mouth twice a day as NEEDED for severe anxiety attack ONLY., 10 days, 2 refills EndCited StartCited- Hyperlipidemia, unspecified Lab: COMP METABOLIC PROF Lab: LIPID PROFILE EndCited StartCited- Other Fenofibrate 145 MG tablet One tablet by mouth daily, 90 days, 2 refills hydrALAZINE HCl 25 MG tablet One tablet by mouth twice a day., 30 days, 3 refills EndCited StartCited- Primary insomnia traZODone HCl 50 MG tablet One tablet by mouth at bedtime., 90 days, 0 refills Amitriptyline HCl 25 MG tablet one tablet at bedtime, 90 days, 0 refills EndCited Other - Patient tolerated venipuncture well; - Number of attempts for venipuncture one [facility]06-22-2023 Progress note* Progress note Date Encounter Last Documented by 11/08/2022 [facility] Patient Last docu mented on 11/10/2022; 10:03 PM, Janina FRIED; [facility] Active Problems & Conditions - 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 Patient reports her mood has been good but she has had some trouble sleeping. Patient is interested in a different dose of her Trazadone. Patient reports her medications help her mood. Patient denies safety concerns. Chief Complaint The Chief Complaint is: Follow up. History of Present Illness Tunde Jack is a 72 year old female. - Sleep disturbances. Current Medication - 1st Tier Unifine Pentips Plus 33G X 4 MM Miscellaneous 33G X 4 MM Use needle for insulin into skin, never use the same needle, 30 days, 6 refills - ALPRAZolam 0.5 MG Oral Tablet One tablet by mouth twice a day as NEEDED for severe anxiety attack ONLY., 10 days, 2 refills - Amitriptyline HCl 25 MG Oral Tablet one tablet at bedtime, 90 days, 0 refills - Amitriptyline HCl 25 MG Oral Tablet one tablet at bedtime, 90 days, 0 refills - amLODIPine Besylate 10 MG Oral Tablet Take 1 tablet by mouth once a day, 30 days, 5 refills - ARIPiprazole 15 MG Oral Tablet Take 1 tablet by mouth once a day, 30 days, 5 refills - BD Pen Needle Racheal 2nd Gen 32G X 4 MM Miscellaneous 32G X 4 MM Use needle for insulin into skin. Never use the same needle., 30 days, 5 refills - Fenofibrate 145 MG Oral Tablet One tablet by mouth daily, 90 days, 0 refills - Fenofibrate 145 MG Oral Tablet One tablet by mouth daily, 90 days, 2 refills - Flonase Allergy Relief 50 MCG/ACT Nasal Suspension 1-2 actuations in each nostril daily, 30 days, 3 refills - FLUoxetine HCl 10 MG Oral Capsule Take 1 tablet by mouth once a day, 30 days, 5 refills - Gabapentin 600 MG Oral Tablet One tablet by mouth three times a day., 30 days, 3 refills - hydrALAZINE HCl 25 MG Oral Tablet One tablet by mouth twice a day., 30 days, 3 refills - hydrALAZINE HCl 25 MG Oral Tablet One tablet by mouth twice a day., 30 days, 3 refills - hydroCHLOROthiazide 25 MG Oral Tablet one tablet by mouth daily, 90 days, 1 refills - Insulin Lispro (1 Unit Dial) 100 UNIT/ML Subcutaneous Solution Pen-injector 14 units before dinner, 6 days, 5 refills - Insulin Lispro (1 Unit Dial) 100 UNIT/ML Subcutaneous Solution Pen-injector Inject 12 units subcutaneous before breakfast and before lunch14 units before dinner, 6 days, 5 refills - Losartan Potassium 100 MG Oral Tablet One tablet by mouth daily, 90 days, 1 refills - metFORMIN HCl 500 MG Oral Tablet one tablety twice a day, 30 days, 4 refills - Pantoprazole Sodium 40 MG Oral Tablet Delayed Release one tablet by mouth daily, 90 days, 1 refills - Pravastatin Sodium 20 MG Oral Tablet One tablet by mouth daily., 90 days, 1 refills - Sucralfate 1 GM Oral Tablet one tablet by mouth at bedtime, 30 days, 3 refills - traZODone HCl 100 MG Oral Tablet One tablet by mouth daily., 30 days, 3 refills - traZODone HCl 50 MG Oral Tablet One tablet by mouth at bedtime., 90 days, 0 refills - Tresiba FlexTouch 100 UNIT/ML Subcutaneous Solution Pen-injector 35 units before dinner, 10 days, 4 refills - Trulicity 1.5 MG/0.5ML Subcutaneous Solution Pen-injector 1.5 mg once a week, 30 days, 4 refills Past Medical/Surgical History Other: No previous suicide attempt Reported: Medical: No previous hospitalizations. A recent examination by an river guide 07/21/2022. Immunization History: Recent immunization for flu. Diagnoses: Systemic hypertension. Diabetes mellitus Surgical: - Cholecystectomy - Hernia repair - Hysterectomy - Tubal ligation Social History Environmental Exposure: No secondhand cigarette smoke exposure. Allergies - No Known Allergies Family History Maternal: Type 1 diabetes mellitus Physical Findings General Appearance: - Normal Appearance. Neurological: - Oriented to time, place, and person. Speech: - Is Normal. Psychiatric: - Mood is Euthymic. - Attitude Open. Affect: - Congruent with the mood. Thought Content: - No suicidal ideation. - No homicidal ideations. Assessment - F41.1 - Generalized anxiety disorder Therapy - Brief solution-focused therapy. - Collaborated with patient and provider: Counseling/Education [facility] encouraged patient to utilize positive supports and coping skills. [facility] encouraged patient to contact [facility] if they need any additional support or resources. . Plan [facility] to follow up with patient at next scheduled visit. . Health Reminders - Eye Exam satisfied 07/21/2022. - PHQ9 / PHQA satisfied 11/08/2022. User Defined 1 PHQ-9: total score was two 11/08/2022 If you checked off problems, how difficult is it for you to do your work? + : Not difficult at all, [PHQ-9-1] Little interest or pleasure in doing things? + 0 pt : Not at all, [PHQ-9-2] Feeling down, depressed, or hopeless? + 0 pt : Not at all, [PHQ-9-3] Trouble falling or staying asleep or sleeping too much? + 1 pt : Several days, [PHQ-9-4] Feeling tired or having little energy? + 1 pt : Several days, [PHQ-9-5] Poor appetite or overeating? + 0 pt : Not at all, [PHQ-9-6] Feeling bad about yourself-or that you are a failure + 0 pt : Not at all, [PHQ-9-7] Trouble concentrating on things such as reading the newspaper + 0 pt : Not at all, [PHQ-9-8] Moving or speaking so slowly that other people have noticed. + 0 pt : Not at all, and [PHQ-9-9] Thoughts that you would be better off or hurting yourself? + 0 pt : Not at all. [facility]06-22-2023 Instructions Includes: Instructions for all patient encounters Instructions to patient Intervention and counseling on cessation of tobacco use, 3-10 minutes Discussed medication and nicotine replacement for tobacco cessation Last Documented On 3 1:05PM ; [facility] Intervention and counseling on cessation of tobacco use, 3-10 minutes Discussed medication and nicotine replacement for tobacco cessation Last Documented On 3 1:02PM ; [facility] Intervention and counseling on cessation of tobacco use, 3-10 minutes Discussed medication and nicotine replacement for tobacco cessation Last Documented On 3 1:13PM ; [facility] Education and Decision Aids were provided during visit for: Discussed nutritional needs teach healthy choices including fruits and vegetables Last Documented On 3 10:23AM ; [facility] Patient education about a pr oper diet 36.7 Last Documented On 3 10:23AM ; [facility] Patient education about phys ical activity benefits Last Documented On 3 1:07PM ; [facility] Patient education about medi cation Last Documented On 3 1:07PM ; [facility] Patient education about ment al health Last Documented On 3 1:07PM ; [facility] Discussed concerns about exe rcise : promote physical activity Last Documented On 3 10:23AM ; [facility] introduced patient to [facility] integrated model of care. ~P offered active and supportive listening, normalized emotions and feelings, and processed current stressors. ~Discussed healthy coping skills and positive supports in patient's life. ~Discussed healthy lifestyle behaviors. ~ Last Documented On 3 12:10AM ; [facility] Discussed nutritional needs 36 teach healthy choices including fruits and vegetables Last Documented On 3 12:20PM ; [facility] Patient education about a pr oper diet 36 Last Documented On 3 12:20PM ; [facility] Discussed concerns about exe rcise : promote physical activity Last Documented On 3 12:20PM ; [facility] Referred Patient to a Diabet es Self-Management Program Last Documented On 3 1:46PM ; [facility] Work Phone: 1([phone]) [phone] NoteCONSULTATION CONSULTATION DATE: 08/28/2022 TO: Geraldo Prado M.D. HISTORY: Patient returns today complaining of pain in her lower back bilaterally, rated as 5-7/10 pain, sharp in character, which increased with activity such as standing, walking and performing transitioning maneuvers. She feels most comfortable in the semi-recumbent position. Denies any change in bowel and bladder habits or new sensorimotor changes in the lower extremities MEDICATION: Current medication includes [place] 5 mg b.i.d. p.r.n. She reports that she has not been taking her Xanax. She reports the [place] does seem to increase in her quality of life, level of functioning and her sleep pattern. EXAM: Notable for patient having no clinical radiculopathy or myelopathy involving the lower extremities. She did have severe pain with lumbar facet joint loading maneuvers occurring bilaterally from L4 through S1, with associated myofascial spasm of the lumbar paravertebral muscles. Her LUCÍA was 28. She did undergo her first diagnostic facet joint injection at L4-5, L5-S1 on 08/06/2022. She reports her pain was improved by at least 95% in the immediate post procedural period, lasting for several hours, with recurrence of pain back to her baseline. RECOMMENDATIONS: I have recommended we obtain her second diagnostic injection to establish reliability. I have also requested she discontinue her baclofen secondary to ineffectiveness and to maintain off of her Xanax. As part of providing excellent, safe, comprehensive care, the following was completed at our patient's visit: 1. A medication reconciliation and review to ensure accurate knowledge of current/active medications, including asking our patients to inform us about any [id number] medications or herbal remedies/nutritional supplements/alternative remedies. 2. A review to specifically ensure our patients have had annual screening for: elevated body mass index (BMI, see intake chart for exact total), tobacco use, screening for depression, and screening for unhealthy alcohol use. 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 Referred Here No prior encounters. History of Present Illness Tunde Jack is a 72 year old female. - Allergy list reviewed - Reviewed Medications - Medication list reviewed Medically established patient presented to discuss lab results. Medical history is significant for diabetes mellitus, essential hypertension, generalized anxiety, hyperlipidemia, major depression, and primary insomnia. The patient's lab work showed hypertriglyceridemia, education has been provided. The patient lives a [place], where food is cooking Current Medication - ALPRAZolam 0.5 MG Oral Tablet One tablet by mouth twice a day as NEEDED for severe anxiety attack ONLY., 10 days, 0 refills - Amitriptyline HCl 25 MG Oral Tablet one tablet at bedtime, 30 days, 0 refills - amLODIPine Besylate 10 MG Oral Tablet Take 1 tablet by mouth once a day, 30 days, 5 refills - ARIPiprazole 15 MG Oral Tablet Take 1 tablet by mouth once a day, 30 days, 5 refills - ARIPiprazole 15 MG Oral Tablet 30 days, 0 refills - Baclofen 10 MG Oral Tablet Take 1 tablet by mouth once a day, 30 days, 0 refills - BD Pen Needle Racheal 2nd Gen 32G X 4 MM Miscellaneous 32G X 4 MM Use needle for insulin into skin. Never use the same needle., 30 days, 0 refills - Fenofibrate 145 MG Oral Tablet one tablet at bedtime, 30 days, 0 refills - FLUoxetine HCl 10 MG Oral Capsule Take 1 tablet by mouth once a day, 30 days, 3 refills - Gabapentin 600 MG Oral Tablet One tablet by mouth three times a day., 30 days, 3 refills - hydroCHLOROthiazide 25 MG Oral Tablet one tablet by mouth daily, 30 days, 4 refills - HYDROcodone-Acetaminophen 5-325 MG Oral Tablet one tablet daily, 15 days, 0 refills - Insulin Lispro (1 Unit Dial) 100 UNIT/ML Subcutaneous Solution Pen-injector 15 days, 0 refills - Insulin Lispro (1 Unit Dial) 100 UNIT/ML Subcutaneous Solution Pen-injector 6 days, 0 refills - Insulin Lispro (1 Unit Dial) 100 UNIT/ML Subcutaneous Solution Pen-injector 14 units before dinner, 6 days, 3 refills - Insulin Lispro (1 Unit Dial) 100 UNIT/ML Subcutaneous Solution Pen-injector Inject 12 units subcutaneous before breakfast and before lunch14 units before dinner, 6 days, 3 refills - metFORMIN HCl 500 MG Oral Tablet one tablety twice a day, 30 days, 0 refills - Pantoprazole Sodium 40 MG Oral Tablet Delayed Release one tablet by mouth daily, 30 days, 5 refills - Pravastatin Sodium 20 MG Oral Tablet One tablet by mouth daily., 30 days, 5 refills - Sucralfate 1 GM Oral Tablet one tablet by mouth at bedtime, 30 days, 0 refills - traZODone HCl 100 MG Oral Tablet One tablet by mouth daily., 30 days, 3 refills - Tresiba FlexTouch 100 UNIT/ML Subcutaneous Solution Pen-injector 10 days, 0 refills - Tresiba FlexTouch 100 UNIT/ML Subcutaneous Solution Pen-injector 10 days, 0 refills - Tresiba FlexTouch 100 UNIT/ML Subcutaneous Solution Pen-injector 35 units before dinner, 10 days, 0 refills - Trulicity 0.75 MG/0.5ML Subcutaneous Solution Pen-injector 7 days, 0 refills - Trulicity 1.5 MG/0.5ML Subcutaneous Solution Pen-injector 1.5 mg, 7 days, 0 refills - Trulicity 1.5 MG/0.5ML Subcutaneous Solution Pen-injector 1.5 mg once a week, 30 days, 4 refills Past Medical/Surgical History Other: No previous suicide attempt Reported: Medical: No previous hospitalizations. A recent examination by an river guide 07/21/2022. Immunization History: Recent immunization for flu. Diagnoses: Systemic hypertension. Diabetes mellitus Surgical: - Cholecystectomy - Hernia repair - Hysterectomy - Tubal ligation Social History Environmental Exposure: Secondhand cigarette smoke exposure. Tobacco use: Cigarette smoking light: Patient smokes 1-10 cigarettes per day. Not using electronic cigarettes/vaping. Alcohol: Not using alcohol. Drug Use: Not using drugs denied by patient. Sexual: Denied sexual activity, sexual orientation Straight (not lesbian or dhaliwal), and gender identity Female. Allergies - No Known Allergies Family History Maternal: Type 1 diabetes mellitus Review Of Systems Head: No head symptoms. Cardiovascular: No cardiovascular symptoms, no chest pain or discomfort, no palpitations, the heart rate was not slow, and the heart rate was not fast. Pulmonary: No pulmonary symptoms, no daytime asthma symptoms, and no nighttime asthma symptoms. Gastrointestinal: No gastrointestinal symptoms. Musculoskeletal: No musculoskeletal symptoms. Neurological: No neurological symptoms, no dizziness, no vertigo, no lightheadedness, and no fainting. Psychological: No psychological symptoms. Skin: No skin symptoms. Physical Findings - Vitals taken 08/02/2022 10:15 am BP-Sitting R138/82 mmHg BP Cuff SizeLarge Pulse Rate-[id number] bpm Pulse RhythmRegular Respiration Rate18 per min Temp-Macgffqm51.5 F Cfuury61 in Rbdkmc343 lbs Body Mass Index36.7 kg/m2 Body Surface Area2 m2 Oxygen [id number] % O2 DeviceNone (Room Air) [id number] % General Appearance: - Awake. - Alert. - Well developed. - Well nourished. - Body odor was normal. - In no acute distress. Oral Cavity: - General condition was good. Chest: - Normal. Lungs: - Respiration rhythm and depth was normal. - Respiratory movements were normal. - Clear to auscultation. Cardiovascular: Heart Rate And Rhythm: - Normal. Heart Sounds: - Normal. Murmurs: - No murmurs were heard. Thrill: - No thrill. Peripheral Vascular Exam: - Normal. Musculoskeletal System: General/bilateral: - Normal movement of all extremities. Posture: General/bilateral: - Posture was normal. Neurological: - Oriented to time, place, and person. Psychiatric: - Expression of emotions finding was normal. Appearance: - Not tired. - Clothing was appropriate. - Grooming was normal. Skin: - General appearance was normal. - Texture was normal. Assessment - Z71.2 - Person consulting for explanation of examination or test findings - Z68.36 - Body mass index [BMI] 36.0-36.9, adult - Intervention and counseling on cessation of tobacco use, 3-10 minutes Discussed medication and nicotine replacement for tobacco cessation Vaccinations - Received dose of Reported: Patient has received the COVID Vaccine Counseling/Education - Not wishing to stop smoking offered Quit Line information - Discussed nutritional needs teach healthy choices including fruits and vegetables - Patient education about a proper diet 36.7 - Patient education about physical activity benefits - Patient education about medication - Patient education about mental health - Discussed concerns about exercise: promote physical activity Plan StartCited- 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 Notes - Patient is not interested in the COVID-19 vaccination at this time. Practice Management Systolic blood pressure 130 - 139 mmHg and diastolic 80-89 mmHg diastolic 80-89 mmHg. [facility]03-16-2023 Instructions Includes: Instructions for all patient encounters Instructions to patient Intervention and counseling on cessation of tobacco use, 3-10 minutes Discussed medication and nicotine replacement for tobacco cessation Last Documented On 3 1:05PM ; [facility] Intervention and counseling on cessation of tobacco use, 3-10 minutes Discussed medication and nicotine replacement for tobacco cessation Last Documented On 3 1:02PM ; [facility] Intervention and counseling on cessation of tobacco use, 3-10 minutes Discussed medication and nicotine replacement for tobacco cessation Last Documented On 3 1:13PM ; [facility] Education and Decision Aids were provided during visit for: Discussed nutritional needs teach healthy choices including fruits and vegetables Last Documented On 3 10:23AM ; [facility] Patient education about a pr oper diet 36.7 Last Documented On 3 10:23AM ; [facility] Patient education about phys ical activity benefits Last Documented On 3 1:07PM ; [facility] Patient education about medi cation Last Documented On 3 1:07PM ; [facility] Patient education about ment al health Last Documented On 3 1:07PM ; [facility] Discussed concerns about exe rcise : promote physical activity Last Documented On 3 10:23AM ; [facility]HP introduced patient to [facility] integrated model of care. ~P offered active and supportive listening, normalized emotions and feelings, and processed current stressors. ~Discussed healthy coping skills and positive supports in patient's life. ~Discussed healthy lifestyle behaviors. ~ Last Documented On 3 12:10AM ; [facility] Discussed nutritional needs 36 teach healthy choices including fruits and vegetables Last Documented On 3 12:20PM ; [facility] Patient education about a pr oper diet 36 Last Documented On 3 12:20PM ; [facility] Discussed concerns about exe rcise : promote physical activity Last Documented On 3 12:20PM ; [facility] Referred Patient to a Diabet es Self-Management Program Last Documented On 3 1:46PM ; [facility] Work Phone: 1([phone]) 504-895303-16-2023 Instructions Includes: Instructions for all patient encounters Instructions to patient Intervention and counseling on cessation of tobacco use, 3-10 minutes Discussed medication and nicotine replacement for tobacco cessation Last Documented On 3 1:05PM ; [facility] Intervention and counseling on cessation of tobacco use, 3-10 minutes Discussed medication and nicotine replacement for tobacco cessation Last Documented On 3 1:02PM ; [facility] Intervention and counseling on cessation of tobacco use, 3-10 minutes Discussed medication and nicotine replacement for tobacco cessation Last Documented On 3 1:13PM ; [facility] Education and Decision Aids were provided during visit for: Discussed nutritional needs teach healthy choices including fruits and vegetables Last Documented On 3 10:23AM ; [facility] Patient education about a pr oper diet 36.7 Last Documented On 3 10:23AM ; [facility] Patient education about phys ical activity benefits Last Documented On 3 1:07PM ; [facility] Patient education about medi cation Last Documented On 3 1:07PM ; [facility] Patient education about ment al health Last Documented On 3 1:07PM ; [facility] Discussed concerns about exe rcise : promote physical activity Last Documented On 3 10:23AM ; [facility] BHP introduced patient to [facility] integrated model of care. ~P offered active and supportive listening, normalized emotions and feelings, and processed current stressors. ~Discussed healthy coping skills and positive supports in patient's life. ~Discussed healthy lifestyle behaviors. ~ Last Documented On 3 12:10AM ; [facility] Discussed nutritional needs 36 teach healthy choices including fruits and vegetables Last Documented On 3 12:20PM ; [facility] Patient education about a pr oper diet 36 Last Documented On 3 12:20PM ; [facility] Discussed concerns about exe rcise : promote physical activity Last Documented On 3 12:20PM ; [facility] Referred Patient to a Diabet es Self-Management Program Last Documented On 3 1:46PM ; [facility] Work Phone: [phone]) 997-200503-07-2023 History general Narrative - Reported Includes: Medical History in patient's chart Description Last Updated No previous suicide attempt 07/24/2022 Last Documented On 3 12:17AM ; [facility] A recent examination by an ophthalmologi st 07/21/2022 07/23/2022 Last Documented On 3 2:32PM ; [facility] History of diabetes mellitus 07/23/2022 Last Documented On 3 2:32PM ; [facility] History of systemic hypertension 023 Last Documented On 3 2:32PM ; [facility] No previous hospitalizations 07/23/2022 Last Documented On 3 2:32PM ; [facility] Recent immunization for flu 07/23/2022 Last Documented On 3 2:32PM ; [facility] Work Phone: [phone]) 574-910603-07-2023 History general Narrative - Reported Includes: Medical History in patient's chart Description Last Updated No previous suicide attempt 07/24/2022 Last Documented On 3 12:17AM ; [facility] A recent examination by an ophthalmologi st 07/21/2022 07/23/2022 Last Documented On 3 2:32PM ; [facility] History of diabetes mellitus 07/23/2022 Last Documented On 3 2:32PM ; [facility] History of systemic hypertension 023 Last Documented On 3 2:32PM ; [facility] No previous hospitalizations 07/23/2022 Last Documented On 3 2:32PM ; [facility] Recent immunization for flu 07/23/2022 Last Documented On 3 2:32PM ; [facility] Work Phone: [phone]) 921-867903-07-2023 History general Narrative - Reported Includes: Medical History in patient's chart Description Last Updated No previous suicide attempt 07/24/2022 Last Documented On 3 12:17AM ; [facility] A recent examination by an ophthalmologi st 07/21/2022 07/23/2022 Last Documented On 3 2:32PM ; [facility] History of diabetes mellitus 07/23/2022 Last Documented On 3 2:32PM ; [facility] History of systemic hypertension 023 Last Documented On 3 2:32PM ; [facility] No previous hospitalizations 07/23/2022 Last Documented On 3 2:32PM ; [facility] Recent immunization for flu 07/23/2022 Last Documented On 3 2:32PM ; [facility] Work Phone: [phone]) 363-139903-07-2023 History general Narrative - Reported Includes: Medical History in patient's chart Description Last Updated No previous suicide attempt 07/24/2022 Last Documented On 3 12:17AM ; [facility] A recent examination by an ophthalmologi st 07/21/2022 07/23/2022 Last Documented On 3 2:32PM ; [facility] History of diabetes mellitus 07/23/2022 Last Documented On 3 2:32PM ; [facility] History of systemic hypertension 023 Last Documented On 3 2:32PM ; [facility] No previous hospitalizations 07/23/2022 Last Documented On 3 2:32PM ; [facility] Recent immunization for flu 07/23/2022 Last Documented On 3 2:32PM ; [facility] Work Phone: [phone]) 375-398003-07-2023 History general Narrative - Reported Includes: Medical History in patient's chart Description Last Updated No previous suicide attempt 07/24/2022 Last Documented On 3 12:17AM ; [facility] A recent examination by an ophthalmologi st 07/21/2022 07/23/2022 Last Documented On 3 2:32PM ; [facility] History of diabetes mellitus 07/23/2022 Last Documented On 3 2:32PM ; [facility] History of systemic hypertension 023 Last Documented On 3 2:32PM ; [facility] No previous hospitalizations 07/23/2022 Last Documented On 3 2:32PM ; [facility] Recent immunization for flu 07/23/2022 Last Documented On 3 2:32PM ; [facility] Work Phone: [phone]) [phone] History general Narrative - Reported Includes: Medical History in patient's chart Description Last Updated No previous suicide attempt 07/24/2022 Last Documented On 3 12:17AM ; [facility] A recent examination by an ophthalmologi st 07/21/2022 07/23/2022 Last Documented On 3 2:32PM ; [facility] History of diabetes mellitus 07/23/2022 Last Documented On 3 2:32PM ; [facility] History of systemic hypertension 023 Last Documented On 3 2:32PM ; [facility] No previous hospitalizations 07/23/2022 Last Documented On 3 2:32PM ; [facility] Recent immunization for flu 07/23/2022 Last Documented On 3 2:32PM ; [facility] Work Phone: [phone]) [phone] Evaluation note Includes: Assessments for all patient encounters Findings Encounter Date Generalized anxiety disorder BH Established Shirley ent with Cinthia Stone ROUGE MIXER 07/23/2022 Last Documented On 3 1:10PM ; [facility] Intervention and counseling on cessation of tobacco use, 3-10 minutes Discussed medication and nicotine replacement for tobacco cessation BH Established Patient with Cinthia Stone ROUGE MIXER 07/23/2022 Last Documented On 3 1:10PM ; [facility] Moderate recurrent major depression BH E stablished Patient with Cinthia Stone ROUGE MIXER 07/23/2022 Last Documented On 3 1:10PM ; [facility] Nicotine dependence BH Established Patient with Cinthia Stone ROUGE MIXER 07/23/2022 Last Documented On 3 1:10PM ; [facility] Primary insomnia BH Established Patient with Deysi Farfan ROUGE MIXER 07/23/2022 Last Documented On 3 1:10PM ; [facility] [Z68.36 - Body mass index [B IA] 36.0-36.9, adult] assessment of body mass index Medical New Patient with Latia Sparks 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 07/23/2022 Last Documented On 3 2:32PM ; [facility] Diabetes Risk Test Score was nine score 07/23/2022 Medical New Patient with Latia Sparks 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 07/23/2022 Last Documented On 3 2:32PM ; [facility] Intervention and counseling on cessation of tobacco use, 3-10 minutes Discussed medication and nicotine replacement for tobacco cessation Medical New Patient with Latia Sparks 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 07/23/2022 Last Documented On 3 2:32PM ; [facility] Screening for Hep C Medical New Patient with Nad yelitza Bridger 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 07/23/2022 Last Documented On 3 2:32PM ; [facility] Screening for HIV Medical New Patient with Hiren Sparks 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 07/23/2022 Last Documented On 3 2:32PM ; [facility] Venipuncture was performed Medical New Patient w dmitry Sparks 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 07/23/2022 Last Documented On 3 2:32PM ; [facility] Visit for routine adult H&P without abnormal findings Medical New Patient with Latia Sparks 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 07/23/2022 Last Documented On 3 2:32PM ; [facility] Work Phone: [phone]) [phone] Evaluation note Includes: Assessments for all patient encounters Findings Encounter Date Generalized anxiety disorder BH Established Shirley ent with Cinthia Farfan ROUGE MIXER 07/23/2022 Last Documented On 3 12:17AM ; [facility] Intervention and counseling on cessation of tobacco use, 3-10 minutes Discussed medication and nicotine replacement for tobacco cessation BH Established Patient with Cinthia Stone ROUGE MIXER 07/23/2022 Last Documented On 3 12:17AM ; [facility] Moderate recurrent major depression E stablished Patient with Cinthia Farfan ROUGE MIXER 07/23/2022 Last Documented On 3 12:17AM ; [facility] Nicotine dependence Established Patient with Cinthia Stone ROUGE MIXER 07/23/2022 Last Documented On 3 12:17AM ; [facility] Primary insomnia Established Patient with Deysi pugh Stone ROUGE MIXER 07/23/2022 Last Documented On 3 12:17AM ; [facility] [Z68.36 - Body mass index [B IA] 36.0-36.9, adult] assessment of body mass index Medical New Patient with Latia Sparks 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 07/23/2022 Last Documented On 3 2:32PM ; [facility] Diabetes Risk Test Score was nine score 07/23/2022 Medical New Patient with Latia Sparks 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 07/23/2022 Last Documented On 3 2:32PM ; [facility] Intervention and counseling on cessation of tobacco use, 3-10 minutes Discussed medication and nicotine replacement for tobacco cessation Medical New Patient with Latia Sparks 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 07/23/2022 Last Documented On 3 2:32PM ; [facility] Screening for Hep C Medical New Patient with Nad yelitza Hoffmanim 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 07/23/2022 Last Documented On 3 2:32PM ; [facility] Screening for HIV Medical New Patient with Hiren kathryn Hoffmanim 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 07/23/2022 Last Documented On 3 2:32PM ; [facility] Venipuncture was performed Medical New Patient w dmitry Sparks 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 07/23/2022 Last Documented On 3 2:32PM ; [facility] Visit for routine adult H&P without abnormal findings Medical New Patient with Latia Hoffmanim 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 07/23/2022 Last Documented On 3 2:32PM ; [facility] Work Phone: [phone] Progress note* Progress note Date Encounter Last Documented by 07/23/2022 Medical New Patient Last sydni elkins on 07/23/2022; 2:32 PM, Ltaia Sparks [facility]; [facility] Active Problems & Conditions - 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 Referred Here Not referred by urgent care clinic and not the emergency room. No prior encounters. - Data to be reviewed: no clinical lab tests History of Present Illness Tunde Jack is a 72 year old female. - Allergy list reviewed - Reviewed Medications - Medication list reviewed A 72 year old female presented to established care. Resides at [facility]. Medical history is significant for diabetes mellitus type 2 with diabetic neuropathy, essential hypertension, generalized anxiety disorder, hyperlipidemia, major depression, and primary insomnia. The patient?s diabetes is managed by Dr. Streeter. The patient is currently on Aripiprazole and Fluoxetine for anxiety and depression. However, the patient has severe anxiety attack, which previous PCP was prescribing 0.5 mg Xanax as needed. The patient typically gets refill every 3-4 months. The patient sees pain management for chronic back pain. Denies any other concerns Current Medication - Amitriptyline HCl 25 MG Oral Tablet one tablet at bedtime, 30 days, 0 refills - amLODIPine Besylate 10 MG Oral Tablet Take 1 tablet by mouth once a day, 30 days, 0 refills - ARIPiprazole 15 MG Oral Tablet 30 days, 0 refills - ARIPiprazole 15 MG Oral Tablet Take 1 tablet by mouth once a day, 30 days, 0 refills - Baclofen 10 MG Oral Tablet Take 1 tablet by mouth once a day, 30 days, 0 refills - Fenofibrate 145 MG Oral Tablet one tablet at bedtime, 30 days, 0 refills - FLUoxetine HCl 10 MG Oral Capsule Take 1 tablet by mouth once a day, 30 days, 0 refills - Gabapentin 600 MG Oral Tablet one tablet 3 times daily, 30 days, 0 refills - hydroCHLOROthiazide 25 MG Oral Tablet one tablet daily, 30 days, 0 refills - HYDROcodone-Acetaminophen 5-325 MG Oral Tablet one tablet daily, 15 days, 0 refills - Insulin Lispro (1 Unit Dial) 100 UNIT/ML Subcutaneous Solution Pen-injector 15 days, 0 refills - Insulin Lispro (1 Unit Dial) 100 UNIT/ML Subcutaneous Solution Pen-injector 6 days, 0 refills - Insulin Lispro (1 Unit Dial) 100 UNIT/ML Subcutaneous Solution Pen-injector 12 units before breakfast 12 units before lucnh 14 units before dinner, 6 days, 0 refills - Insulin Lispro (1 Unit Dial) 100 UNIT/ML Subcutaneous Solution Pen-injector 6 days, 0 refills - metFORMIN HCl 500 MG Oral Tablet one tablety twice a day, 30 days, 0 refills - Pantoprazole Sodium 40 MG Oral Tablet Delayed Release one tablet daily, 30 days, 0 refills - Pravastatin Sodium 20 MG Oral Tablet one tablet at bedtime, 30 days, 0 refills - Sucralfate 1 GM Oral Tablet one tablet at bedtime, 30 days, 0 refills - traZODone HCl 100 MG Oral Tablet 1 tablet at bedtime, 30 days, 0 refills - Tresiba FlexTouch 100 UNIT/ML Subcutaneous Solution Pen-injector 35 units before dinner, 10 days, 0 refills - Tresiba FlexTouch 100 UNIT/ML Subcutaneous Solution Pen-injector 10 days, 0 refills - Tresiba FlexTouch 100 UNIT/ML Subcutaneous Solution Pen-injector 10 days, 0 refills - Trulicity 0.75 MG/0.5ML Subcutaneous Solution Pen-injector 7 days, 0 refills - Trulicity 1.5 MG/0.5ML Subcutaneous Solution Pen-injector 1.5 mg, 7 days, 0 refills - Trulicity 1.5 MG/0.5ML Subcutaneous Solution Pen-injector 1.5 once a week, 7 days, 0 refills Past Medical/Surgical History Reported: Medical: No previous hospitalizations. A recent examination by an river guide 07/21/2022. Immunization History: Recent immunization for flu. Diagnoses: Systemic hypertension. Diabetes mellitus Surgical: - Cholecystectomy - Hernia repair - Hysterectomy - Tubal ligation Social History Environmental Exposure: Secondhand cigarette smoke exposure. Tobacco use: Cigarette smoking moderate: Patient smokes 11-19 cigarettes per day. Not using electronic cigarettes/vaping. Alcohol: Not using alcohol. Drug Use: Not using drugs denied by patient. Sexual: Denied sexual activity, sexual orientation Straight (not lesbian or dhaliwal), and gender identity Female. Allergies - No Known Allergies Family History Maternal: Type 1 diabetes mellitus Review Of Systems Head: No head symptoms. Cardiovascular: No cardiovascular symptoms, no chest pain or discomfort, no palpitations, the heart rate was not slow, and the heart rate was not fast. Pulmonary: No pulmonary symptoms, no daytime asthma symptoms, and no nighttime asthma symptoms. Gastrointestinal: No gastrointestinal symptoms. Endocrine: No endocrine symptoms. Musculoskeletal: No musculoskeletal symptoms. Neurological: No neurological symptoms, no dizziness, no vertigo, no lightheadedness, and no fainting. Psychological: Anxiety and depression. Skin: No skin symptoms. Physical Findings - Vitals taken 07/23/2022 12:13 pm BP-Sitting R168/92 mmHg BP Cuff SizeLarge Pulse Rate-Xrgcdld004 bpm Pulse RhythmRegular Respiration Rate21 per min Temp-Oral98.3 F Mafkaa64 in Wsvacm021 lbs Body Mass Index36 kg/m2 Body Surface Area2 m2 Oxygen Jfjsyyocis99 % O2 DeviceNone (Room Air) NuZ168 % - Vitals taken 07/23/2022 01:38 pm BP-Sitting L142/78 mmHg General Appearance: - Awake. - Alert. - Well developed. - Well nourished. - Body odor was normal. - In no acute distress. Oral Cavity: - General condition was good. Chest: - Normal. Lungs: - Respiration rhythm and depth was normal. - Respiratory movements were normal. - Clear to auscultation. Cardiovascular: Heart Rate And Rhythm: - Normal. Heart Sounds: - Normal. Murmurs: - No murmurs were heard. Thrill: - No thrill. Peripheral Vascular Exam: - Normal. Abdomen: Visual Inspection: - Abdomen was normal on visual inspection. Auscultation: - Bowel sounds were normal. Palpation: - Abdominal non-tender. Liver: - Normal to palpation. Spleen: - Normal to palpation. Gallbladder: - Normal to palpation. Musculoskeletal System: General/bilateral: - Normal movement of all extremities. Foot: General/bilateral: - Abnormal 10-g monofilament exam of right foot. - Abnormal 10-g monofilament exam of left foot. Posture: General/bilateral: - Posture was normal. Neurological: - Oriented to time, place, and person. Psychiatric: - Expression of emotions finding was normal. Appearance: - Not tired. - Clothing was appropriate. - Grooming was normal. Skin: - General appearance was normal. - Texture was normal. Tests Blood Analysis: Blood Endocrine Laboratory Tests: ValueDate Blood glucose level by fingerstick Fasting 243 mg/dl07/23/2022 Blood hemoglobin A1c 8.2%07/23/2022 Laboratory-based Chemistry: Immunology Studies: HIV test was negative. Urine Tests: Value Urine microalbumin dipstick test was 150 + Laboratory Studies: Vascular Procedures: Left Hand. Microbiology: Infectious Agent Antigen Detection: Antigen detection for hepatitis C was negative 07/23/2022. Assessment - Z00.00 - Encounter for general adult medical examination without abnormal findings - Z11.4 - Encounter for screening for human immunodeficiency virus [HIV] - Z11.59 - Encounter for screening for other viral diseases - Z68.36 - Body mass index [BMI] 36.0-36.9, adult - Z01.812 - Encounter for preprocedural laboratory examination - Z13.1 - Encounter for screening for diabetes mellitus - Intervention and counseling on cessation of tobacco use, 3-10 minutes Discussed medication and nicotine replacement for tobacco cessation Therapy - Patient refused flu vaccine. Discussed benefits of flu vaccine with Patient. - Complete colonoscopy 2019. Vaccinations - Received dose of Reported: Patient has received the COVID Vaccine Counseling/Education - Not wishing to stop smoking offered Quit Line information - Discussed nutritional needs 36 teach healthy choices including fruits and vegetables - Patient education about a proper diet 36 - Referred Patient to a Diabetes Self-Management Program - Discussed concerns about exercise: promote physical activity Plan StartCited- Depression, unspecified FLUoxetine HCl 10 MG capsule Take 1 tablet by mouth once a day, 30 days, 3 refills EndCited StartCited- Encntr for general adult medical exam w/o abnormal findings Lab: CBC Lab: COMP METABOLIC PROF Lab: LIPID PROFILE Lab: TSH W/REFLEX TO FT4 Lab: VITAMIN D 25 OH EndCited StartCited- Essential (primary) hypertension hydroCHLOROthiazide 25 MG tablet one tablet by mouth daily, 30 days, 4 refills amLODIPine Besylate 10 MG tablet Take 1 tablet by mouth once a day, 30 days, 5 refills EndCited StartCited- Gastro-esophageal reflux disease without esophagitis Pantoprazole Sodium 40 MG tablet one tablet by mouth daily, 30 days, 5 refills Sucralfate 1 GM tablet one tablet by mouth at bedtime, 30 days, 0 refills EndCited StartCited- Generalized anxiety disorder ALPRAZolam 0.5 MG tablet One tablet by mouth twice a day as NEEDED for severe anxiety attack ONLY., 10 days, 0 refills EndCited StartCited- Hyperlipidemia, unspecified Pravastatin Sodium 20 MG tablet One tablet by mouth daily., 30 days, 5 refills EndCited StartCited- Other specified persistent mood disorders ARIPiprazole 15 MG tablet Take 1 tablet by mouth once a day, 30 days, 5 refills EndCited StartCited- Primary insomnia traZODone HCl 100 MG tablet One tablet by mouth daily., 30 days, 3 refills EndCited StartCited- Type 2 diabetes mellitus w diabetic neuropathic arthropathy BD Pen Needle Racheal 2nd Gen 32G X 4 MM each Use needle for insulin into skin. Never use the same needle., 30 days, 0 refills EndCited StartCited- Type 2 diabetes mellitus with other diabetic arthropathy Gabapentin 600 MG tablet One tablet by mouth three times a day., 30 days, 3 refills EndCited StartCited- Type 2 diabetes mellitus without complications Trulicity 1.5 MG/0.5ML mL 1.5 mg once a week, 30 days, 4 refills Insulin Lispro (1 Unit Dial) 100 UNIT/ML mL Inject 12 units subcutaneous before breakfast and before lunch, 6 days, 3 refills Insulin Lispro (1 Unit Dial) 100 UNIT/ML mL 14 units before dinner, 6 days, 3 refills Insulin Lispro (1 Unit Dial) 100 UNIT/ML mL Inject 12 units subcutaneous before breakfast and before lunch14 units before dinner, 6 days, 3 refills EndCited Notes - Patient is not interested in the COVID-19 vaccination at this time. Other - Patient tolerated venipuncture well; - Number of attempts for venipuncture two Practice Management Hemoglobin A1c level >=8.0 and <= 9.0%, for blood pressure systolic < 140 mmHg systolic < 130 mmHg systolic < 130 mmHg, and diastolic > or = 90 mmHg diastolic > or = 90 mmHg. User Defined 1 Yes (1 point) [Pre-DM]: Patient has been diagnosed with gestational diabetes or given to a baby weighing 9 pounds or more, Yes (1 point) [Pre-DM]: Yes, mother, father, sister or brother has DM, Yes (1 point) [Pre-DM]: Yes, patient has been diagnosed with high blood pressure, No (1 point) [Pre-DM]: No, not physically active, and Woman (0 Points) [Pre-DM]. 60 years or older (3 points) [Pre-DM]. [facility]03-06-2023 Progress note* Progress note Date Encounter Last Documented by 07/23/2022 Established Patient Last docu mented on 07/24/2022; 12:17 AM, Cinthia PARRISH; [facility] Active Problems & Conditions - 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 - I10 - Essential Hypertension - F41.1 - Generalized Anxiety Disorder - Hyperlipidemia - F33.1 - Major Depression Recurrent Moderate - F17.200 - Nicotine Dependence Uncomplicated - F51.01 - Primary Insomnia Chief Complaint The Chief Complaint is: New patient present today to establish care. History of Present Illness Tunde Jack is a 72 year old female. - Normal appetite. - Anxiety improved with medications. - Depression managed with medications. - Sleep disturbances improved somewhat with medication. - Energy level is good - Racing thoughts - No social isolation - - Progress: AEB medication compliant and implementing healthy coping skills Subjective [facility] reviewed PHQ-9 score of 9 and negative SBIRT with patient. Patient has a dx hx of MDD and DALI noting she is currently on medication prescribed by her previous PCP. Patient states this medication combination has been helpful for her and denies any concerns, but would like refills. Patient does have concerns of physical pain and managing her diabetes. Patient denies any other concerns or needs today and denies any current SI/HI. . Current Medication - ALPRAZolam 0.5 MG Oral Tablet One tablet by mouth twice a day as NEEDED for severe anxiety attack ONLY., 10 days, 0 refills - Amitriptyline HCl 25 MG Oral Tablet one tablet at bedtime, 30 days, 0 refills - amLODIPine Besylate 10 MG Oral Tablet Take 1 tablet by mouth once a day, 30 days, 5 refills - amLODIPine Besylate 10 MG Oral Tablet Take 1 tablet by mouth once a day, 30 days, 0 refills - ARIPiprazole 15 MG Oral Tablet Take 1 tablet by mouth once a day, 30 days, 5 refills - ARIPiprazole 15 MG Oral Tablet 30 days, 0 refills - ARIPiprazole 15 MG Oral Tablet Take 1 tablet by mouth once a day, 30 days, 0 refills - Baclofen 10 MG Oral Tablet Take 1 tablet by mouth once a day, 30 days, 0 refills - BD Pen Needle Racheal 2nd Gen 32G X 4 MM Miscellaneous 32G X 4 MM Use needle for insulin into skin. Never use the same needle., 30 days, 0 refills - Fenofibrate 145 MG Oral Tablet one tablet at bedtime, 30 days, 0 refills - FLUoxetine HCl 10 MG Oral Capsule Take 1 tablet by mouth once a day, 30 days, 3 refills - FLUoxetine HCl 10 MG Oral Capsule Take 1 tablet by mouth once a day, 30 days, 0 refills - Gabapentin 600 MG Oral Tablet One tablet by mouth three times a day., 30 days, 3 refills - Gabapentin 600 MG Oral Tablet one tablet 3 times daily, 30 days, 0 refills - hydroCHLOROthiazide 25 MG Oral Tablet one tablet by mouth daily, 30 days, 4 refills - hydroCHLOROthiazide 25 MG Oral Tablet one tablet daily, 30 days, 0 refills - HYDROcodone-Acetaminophen 5-325 MG Oral Tablet one tablet daily, 15 days, 0 refills - Insulin Lispro (1 Unit Dial) 100 UNIT/ML Subcutaneous Solution Pen-injector 15 days, 0 refills - Insulin Lispro (1 Unit Dial) 100 UNIT/ML Subcutaneous Solution Pen-injector 6 days, 0 refills - Insulin Lispro (1 Unit Dial) 100 UNIT/ML Subcutaneous Solution Pen-injector 14 units before dinner, 6 days, 3 refills - Insulin Lispro (1 Unit Dial) 100 UNIT/ML Subcutaneous Solution Pen-injector Inject 12 units subcutaneous before breakfast and before lunch14 units before dinner, 6 days, 3 refills - Insulin Lispro (1 Unit Dial) 100 UNIT/ML Subcutaneous Solution Pen-injector 12 units before breakfast 12 units before lucnh 14 units before dinner, 6 days, 0 refills - Insulin Lispro (1 Unit Dial) 100 UNIT/ML Subcutaneous Solution Pen-injector 6 days, 0 refills - Insulin Lispro (1 Unit Dial) 100 UNIT/ML Subcutaneous Solution Pen-injector Inject 12 units subcutaneous before breakfast and before lunch, 6 days, 3 refills - metFORMIN HCl 500 MG Oral Tablet one tablety twice a day, 30 days, 0 refills - Pantoprazole Sodium 40 MG Oral Tablet Delayed Release one tablet by mouth daily, 30 days, 5 refills - Pantoprazole Sodium 40 MG Oral Tablet Delayed Release one tablet daily, 30 days, 0 refills - Pravastatin Sodium 20 MG Oral Tablet One tablet by mouth daily., 30 days, 5 refills - Pravastatin Sodium 20 MG Oral Tablet one tablet at bedtime, 30 days, 0 refills - Sucralfate 1 GM Oral Tablet one tablet by mouth at bedtime, 30 days, 0 refills - Sucralfate 1 GM Oral Tablet one tablet at bedtime, 30 days, 0 refills - traZODone HCl 100 MG Oral Tablet One tablet by mouth daily., 30 days, 3 refills - traZODone HCl 100 MG Oral Tablet 1 tablet at bedtime, 30 days, 0 refills - Tresiba FlexTouch 100 UNIT/ML Subcutaneous Solution Pen-injector 35 units before dinner, 10 days, 0 refills - Tresiba FlexTouch 100 UNIT/ML Subcutaneous Solution Pen-injector 10 days, 0 refills - Tresiba FlexTouch 100 UNIT/ML Subcutaneous Solution Pen-injector 10 days, 0 refills - Trulicity 0.75 MG/0.5ML Subcutaneous Solution Pen-injector 7 days, 0 refills - Trulicity 1.5 MG/0.5ML Subcutaneous Solution Pen-injector 1.5 mg, 7 days, 0 refills - Trulicity 1.5 MG/0.5ML Subcutaneous Solution Pen-injector 1.5 mg once a week, 30 days, 4 refills - Trulicity 1.5 MG/0.5ML Subcutaneous Solution Pen-injector 1.5 once a week, 7 days, 0 refills Past Medical/Surgical History Other: No previous suicide attempt Social History Medical: Chronic illness -severe diabetes. Environmental Exposure: Secondhand cigarette smoke exposure. Personal: Recent emotional stress. Tobacco use: Cigarette smoking light: Patient smokes 1-10 cigarettes per day. Not using electronic cigarettes/vaping. Alcohol: Not using alcohol. Drug Use: Not using drugs. Housing And Economic Circumstances: Living arrangements Assisted living. Sexual: Not sexually active. Sexual orientation Straight (not lesbian or dhaliwal) and gender identity Female. Allergies - No Known Allergies Physical Findings General Appearance: - Patient appeared uncomfortable due to pain and discomfort. Neurological: - Cognitive Functions was Normal. - Estimated intelligence was normal. - Oriented to time, place, and person. - No hallucinations. - Judgement was not impaired. Speech: - Is Normal. Psychiatric: - Mood was one of pain. - Mood is Euthymic. - Attitude Open. Demonstrated Behavior: - Eye Contact Appropriate. Affect: - Congruent with the mood. Thought Processes: - Not impaired. Thought Content: - Revealed no impairment. - Insight was intact. - No delusions. - No suicidal ideation. - No Passive thoughts of . - No suicidal plans. - No suicidal intent. - No homicidal ideations. - No homicidal plans. - No homicidal intent. Past Medical: - No repetitive self injurious behavior. - No access to weapons / guns in home. Assessment - F17.200 - Nicotine dependence, unspecified, uncomplicated - F33.1 - Major depressive disorder, recurrent, moderate - F51.01 - Primary insomnia - F41.1 - Generalized anxiety disorder - Intervention and counseling on cessation of tobacco use, 3-10 minutes Discussed medication and nicotine replacement for tobacco cessation Therapy - SBIRT Screen Neg. - SBIRT Full Screen Neg. - Brief solution-focused therapy. - Adherent with medications for mood and her physical health sx. - Referral to mental health team. - Plan - do not modify medication PCP to refill her current medications she was getting from her previous PCP. Collaborated with patient and provider: Counseling/Education - Not wishing to stop smoking offered Quit Line information [facility]. P offered active and supportive listening, normalized emotions and feelings, and processed current stressors. Discussed healthy coping skills and positive supports in patient's life. Discussed healthy lifestyle behaviors. . Plan - No Safety Measures Continue to take medications as directed and patient verbalized understanding. Utilize healthy coping skills and positive supports in patient's life. Implement healthy lifestyle coping skills like discussed. [facility] to follow-up with patient at next visit as scheduled. . Health Reminders - Assess Tobacco Use satisfied 07/23/2022. - PHQ9 / PHQA satisfied 07/23/2022. - SBIRT satisfied 07/23/2022. - Smoking & Tobacco Cessation Intervention and Counseling satisfied 07/23/2022. User Defined 1 Has not worked without getting the payment you thought you would, has not felt pressured to do something against will to keep job, have not felt threatened in a relationship, has not been put down, humilitated, or someone has tried to control them, has not been hit, kicked, punched, or sexually forced to do something, or hurt, and not afraid of someone you have a relationship with. Domestic Violence/ Human Trafficking Screening was completed. Has lack of transportation kept patient from medical appointments or from getting medications: No. Has lack of transportation kept patient from non-medical meetings, appointments, work, or getting needed things: Yes. She has not had 4 or more drinks in a day within the past year. Do you feel stress - tense, restless, nervous, or anxious, or unable to sleep at night because your mind is troubled all the time - these days? Somewhat. No misuse of prescription only drugs and not illicit. Does patient feel physically and emotionally safe where he/she lives: Yes. Is patient is worried about losing housing: No, In the past year, patient or family members in household were unable to get needed clothing: No, unable to get needed children's attendant: No, unable to get needed phone: No, unable to get needed utilities: No, unable to get needed Medicine or Health Care: No, and In the past year, patient or family members in household were unable to get needed food: No. How often does patient see or talk to people that that he/she cares about and feels close to: 3 to 5 times a week, Little interest or pleasure in doing things in the last 2 weeks? 3 pt Nearly every day, Feeling down, depressed, or hopeless in the last 2 weeks? 1 pt Several days, and [PHQ-2] Patient Health Questionnaire 2 item total score: 4 pts (Scale: 0-6) PHQ2. PHQ-9: total score was nine 07/23/2022 If you checked off problems, how difficult is it for you to do your work? + : Somewhat difficult, [PHQ-9-1] Little interest or pleasure in doing things? + 3 pt : Nearly every day, [PHQ-9-2] Feeling down, depressed, or hopeless? + 1 pt : Several days, [PHQ-9-3] Trouble falling or staying asleep or sleeping too much? + 2 pt : More than half the days, [PHQ-9-4] Feeling tired or having little energy? + 2 pt : More than half the days, [PHQ-9-5] Poor appetite or overeating? + 0 pt : Not at all, [PHQ-9-6] Feeling bad about yourself-or that you are a failure + 0 pt : Not at all, [PHQ-9-7] Trouble concentrating on things such as reading the newspaper + 0 pt : Not at all, [PHQ-9-8] Moving or speaking so slowly that other people have noticed. + 1 pt : Several days, and [PHQ-9-9] Thoughts that you would be better off or hurting yourself? + 0 pt : Not at all. [facility]03-06-2023 Progress note* Progress note Date Encounter Last Documented by 07/23/2022 Established Patient Last docu mented on 07/24/2022; 12:17 AM, Cinthia FRIED; [facility] Active Problems & Conditions - 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 - I10 - Essential Hypertension - F41.1 - Generalized Anxiety Disorder - Hyperlipidemia - F33.1 - Major Depression Recurrent Moderate - F17.200 - Nicotine Dependence Uncomplicated - F51.01 - Primary Insomnia Chief Complaint The Chief Complaint is: New patient present today to establish care. History of Present Illness Tunde Jack is a 72 year old female. - Normal appetite. - Anxiety improved with medications. - Depression managed with medications. - Sleep disturbances improved somewhat with medication. - Energy level is good - Racing thoughts - No social isolation - - Progress: AEB medication compliant and implementing healthy coping skills Subjective P reviewed PHQ-9 score of 9 and negative SBIRT with patient. Patient has a dx hx of MDD and DALI noting she is currently on medication prescribed by her previous PCP. Patient states this medication combination has been helpful for her and denies any concerns, but would like refills. Patient does have concerns of physical pain and managing her diabetes. Patient denies any other BH concerns or needs today and denies any current SI/HI. . Current Medication - ALPRAZolam 0.5 MG Oral Tablet One tablet by mouth twice a day as NEEDED for severe anxiety attack ONLY., 10 days, 0 refills - Amitriptyline HCl 25 MG Oral Tablet one tablet at bedtime, 30 days, 0 refills - amLODIPine Besylate 10 MG Oral Tablet Take 1 tablet by mouth once a day, 30 days, 5 refills - amLODIPine Besylate 10 MG Oral Tablet Take 1 tablet by mouth once a day, 30 days, 0 refills - ARIPiprazole 15 MG Oral Tablet Take 1 tablet by mouth once a day, 30 days, 5 refills - ARIPiprazole 15 MG Oral Tablet 30 days, 0 refills - ARIPiprazole 15 MG Oral Tablet Take 1 tablet by mouth once a day, 30 days, 0 refills - Baclofen 10 MG Oral Tablet Take 1 tablet by mouth once a day, 30 days, 0 refills - BD Pen Needle Racheal 2nd Gen 32G X 4 MM Miscellaneous 32G X 4 MM Use needle for insulin into skin. Never use the same needle., 30 days, 0 refills - Fenofibrate 145 MG Oral Tablet one tablet at bedtime, 30 days, 0 refills - FLUoxetine HCl 10 MG Oral Capsule Take 1 tablet by mouth once a day, 30 days, 3 refills - FLUoxetine HCl 10 MG Oral Capsule Take 1 tablet by mouth once a day, 30 days, 0 refills - Gabapentin 600 MG Oral Tablet One tablet by mouth three times a day., 30 days, 3 refills - Gabapentin 600 MG Oral Tablet one tablet 3 times daily, 30 days, 0 refills - hydroCHLOROthiazide 25 MG Oral Tablet one tablet by mouth daily, 30 days, 4 refills - hydroCHLOROthiazide 25 MG Oral Tablet one tablet daily, 30 days, 0 refills - HYDROcodone-Acetaminophen 5-325 MG Oral Tablet one tablet daily, 15 days, 0 refills - Insulin Lispro (1 Unit Dial) 100 UNIT/ML Subcutaneous Solution Pen-injector 15 days, 0 refills - Insulin Lispro (1 Unit Dial) 100 UNIT/ML Subcutaneous Solution Pen-injector 6 days, 0 refills - Insulin Lispro (1 Unit Dial) 100 UNIT/ML Subcutaneous Solution Pen-injector 14 units before dinner, 6 days, 3 refills - Insulin Lispro (1 Unit Dial) 100 UNIT/ML Subcutaneous Solution Pen-injector Inject 12 units subcutaneous before breakfast and before lunch14 units before dinner, 6 days, 3 refills - Insulin Lispro (1 Unit Dial) 100 UNIT/ML Subcutaneous Solution Pen-injector 12 units before breakfast 12 units before lucnh 14 units before dinner, 6 days, 0 refills - Insulin Lispro (1 Unit Dial) 100 UNIT/ML Subcutaneous Solution Pen-injector 6 days, 0 refills - Insulin Lispro (1 Unit Dial) 100 UNIT/ML Subcutaneous Solution Pen-injector Inject 12 units subcutaneous before breakfast and before lunch, 6 days, 3 refills - metFORMIN HCl 500 MG Oral Tablet one tablety twice a day, 30 days, 0 refills - Pantoprazole Sodium 40 MG Oral Tablet Delayed Release one tablet by mouth daily, 30 days, 5 refills - Pantoprazole Sodium 40 MG Oral Tablet Delayed Release one tablet daily, 30 days, 0 refills - Pravastatin Sodium 20 MG Oral Tablet One tablet by mouth daily., 30 days, 5 refills - Pravastatin Sodium 20 MG Oral Tablet one tablet at bedtime, 30 days, 0 refills - Sucralfate 1 GM Oral Tablet one tablet by mouth at bedtime, 30 days, 0 refills - Sucralfate 1 GM Oral Tablet one tablet at bedtime, 30 days, 0 refills - traZODone HCl 100 MG Oral Tablet One tablet by mouth daily., 30 days, 3 refills - traZODone HCl 100 MG Oral Tablet 1 tablet at bedtime, 30 days, 0 refills - Tresiba FlexTouch 100 UNIT/ML Subcutaneous Solution Pen-injector 35 units before dinner, 10 days, 0 refills - Tresiba FlexTouch 100 UNIT/ML Subcutaneous Solution Pen-injector 10 days, 0 refills - Tresiba FlexTouch 100 UNIT/ML Subcutaneous Solution Pen-injector 10 days, 0 refills - Trulicity 0.75 MG/0.5ML Subcutaneous Solution Pen-injector 7 days, 0 refills - Trulicity 1.5 MG/0.5ML Subcutaneous Solution Pen-injector 1.5 mg, 7 days, 0 refills - Trulicity 1.5 MG/0.5ML Subcutaneous Solution Pen-injector 1.5 mg once a week, 30 days, 4 refills - Trulicity 1.5 MG/0.5ML Subcutaneous Solution Pen-injector 1.5 once a week, 7 days, 0 refills Past Medical/Surgical History Other: No previous suicide attempt Social History Medical: Chronic illness -severe diabetes. Environmental Exposure: Secondhand cigarette smoke exposure. Personal: Recent emotional stress. Tobacco use: Cigarette smoking light: Patient smokes 1-10 cigarettes per day. Not using electronic cigarettes/vaping. Alcohol: Not using alcohol. Drug Use: Not using drugs. Housing And Economic Circumstances: Living arrangements Assisted living. Sexual: Not sexually active. Sexual orientation Straight (not lesbian or dhaliwal) and gender identity Female. Allergies - No Known Allergies Physical Findings General Appearance: - Patient appeared uncomfortable due to pain and discomfort. Neurological: - Cognitive Functions was Normal. - Estimated intelligence was normal. - Oriented to time, place, and person. - No hallucinations. - Judgement was not impaired. Speech: - Is Normal. Psychiatric: - Mood was one of pain. - Mood is Euthymic. - Attitude Open. Demonstrated Behavior: - Eye Contact Appropriate. Affect: - Congruent with the mood. Thought Processes: - Not impaired. Thought Content: - Revealed no impairment. - Insight was intact. - No delusions. - No suicidal ideation. - No Passive thoughts of . - No suicidal plans. - No suicidal intent. - No homicidal ideations. - No homicidal plans. - No homicidal intent. Past Medical: - No repetitive self injurious behavior. - No access to weapons / guns in home. Assessment - F17.200 - Nicotine dependence, unspecified, uncomplicated - F33.1 - Major depressive disorder, recurrent, moderate - F51.01 - Primary insomnia - F41.1 - Generalized anxiety disorder - Intervention and counseling on cessation of tobacco use, 3-10 minutes Discussed medication and nicotine replacement for tobacco cessation Therapy - SBIRT Screen Neg. - SBIRT Full Screen Neg. - Brief solution-focused therapy. - Adherent with medications for mood and her physical health sx. - Referral to mental health team. - Plan - do not modify medication PCP to refill her current medications she was getting from her previous PCP. Collaborated with patient and provider: Counseling/Education - Not wishing to stop smoking offered Quit Line information P introduced patient to [facility] integrated model of care. [facility] offered active and supportive listening, normalized emotions and feelings, and processed current stressors. Discussed healthy coping skills and positive supports in patient's life. Discussed healthy lifestyle behaviors. . Plan - No Safety Measures Continue to take medications as directed and patient verbalized understanding. Utilize healthy coping skills and positive supports in patient's life. Implement healthy lifestyle coping skills like discussed. P to follow-up with patient at next visit as scheduled. . Health Reminders - Assess Tobacco Use satisfied 07/23/2022. - PHQ9 / PHQA satisfied 07/23/2022. - SBIRT satisfied 07/23/2022. - Smoking & Tobacco Cessation Intervention and Counseling satisfied 07/23/2022. User Defined 1 Has not worked without getting the payment you thought you would, has not felt pressured to do something against will to keep job, have not felt threatened in a relationship, has not been put down, humilitated, or someone has tried to control them, has not been hit, kicked, punched, or sexually forced to do something, or hurt, and not afraid of someone you have a relationship with. Domestic Violence/ Human Trafficking Screening was completed. Has lack of transportation kept patient from medical appointments or from getting medications: No. Has lack of transportation kept patient from non-medical meetings, appointments, work, or getting needed things: Yes. She has not had 4 or more drinks in a day within the past year. Do you feel stress - tense, restless, nervous, or anxious, or unable to sleep at night because your mind is troubled all the time - these days? Somewhat. No misuse of prescription only drugs and not illicit. Does patient feel physically and emotionally safe where he/she lives: Yes. Is patient is worried about losing housing: No, In the past year, patient or family members in household were unable to get needed clothing: No, unable to get needed children's attendant: No, unable to get needed phone: No, unable to get needed utilities: No, unable to get needed Medicine or Health Care: No, and In the past year, patient or family members in household were unable to get needed food: No. How often does patient see or talk to people that that he/she cares about and feels close to: 3 to 5 times a week, Little interest or pleasure in doing things in the last 2 weeks? 3 pt Nearly every day, Feeling down, depressed, or hopeless in the last 2 weeks? 1 pt Several days, and [PHQ-2] Patient Health Questionnaire 2 item total score: 4 pts (Scale: 0-6) PHQ2. PHQ-9: total score was nine 07/23/2022 If you checked off problems, how difficult is it for you to do your work? + : Somewhat difficult, [PHQ-9-1] Little interest or pleasure in doing things? + 3 pt : Nearly every day, [PHQ-9-2] Feeling down, depressed, or hopeless? + 1 pt : Several days, [PHQ-9-3] Trouble falling or staying asleep or sleeping too much? + 2 pt : More than half the days, [PHQ-9-4] Feeling tired or having little energy? + 2 pt : More than half the days, [PHQ-9-5] Poor appetite or overeating? + 0 pt : Not at all, [PHQ-9-6] Feeling bad about yourself-or that you are a failure + 0 pt : Not at all, [PHQ-9-7] Trouble concentrating on things such as reading the newspaper + 0 pt : Not at all, [PHQ-9-8] Moving or speaking so slowly that other people have noticed. + 1 pt : Several days, and [PHQ-9-9] Thoughts that you would be better off or hurting yourself? + 0 pt : Not at all. [facility]03-06-2023 Reason for referral (narrative)* Date Encounter Description Provider Reason for Referral 07/23/22 Established Patient Cinthia PARRISH Referral To Mental Health Team [facility] Work Phone: 1(702) 593-819103-06-2023 Reason for referral (narrative)* Date Encounter Description Provider Reason for Referral 07/23/22 Established Patient Cinthia PARRISH- S Referral To Mental Health Team [facility] Work Phone: 1(771) 272-692303-06-2023 Instructions Includes: Instructions for all patient encounters Instructions to patient Intervention and counseling on cessation of tobacco use, 3-10 minutes Discussed medication and nicotine replacement for tobacco cessation Last Documented On 3 1:02PM ; [facility] Intervention and counseling on cessation of tobacco use, 3-10 minutes Discussed medication and nicotine replacement for tobacco cessation Last Documented On 3 1:13PM ; [facility] Education and Decision Aids were provided during visit for: Discussed nutritional needs 36 teach healthy choices including fruits and vegetables Last Documented On 3 12:20PM ; [facility] Patient education about a pr oper diet 36 Last Documented On 3 12:20PM ; [facility] Discussed concerns about exe rcise : promote physical activity Last Documented On 3 12:20PM ; [facility] Referred Patient to a Diabet es Self-Management Program Last Documented On 3 1:46PM ; [facility] Work Phone: [phone]) 919-210503-06-2023 Instructions Includes: Instructions for all patient encounters Instructions to patient Intervention and counseling on cessation of tobacco use, 3-10 minutes Discussed medication and nicotine replacement for tobacco cessation Last Documented On 3 1:02PM ; [facility] Intervention and counseling on cessation of tobacco use, 3-10 minutes Discussed medication and nicotine replacement for tobacco cessation Last Documented On 3 1:13PM ; [facility] Education and Decision Aids were provided during visit for: P introduced patient to [facility] integrated model of care. ~P offered active and supportive listening, normalized emotions and feelings, and processed current stressors. ~Discussed healthy coping skills and positive supports in patient's life. ~Discussed healthy lifestyle behaviors. ~ Last Documented On 3 12:10AM ; [facility] Discussed nutritional needs 36 teach healthy choices including fruits and vegetables Last Documented On 3 12:20PM ; [facility] Patient education about a pr oper diet 36 Last Documented On 3 12:20PM ; [facility] Discussed concerns about exe rcise : promote physical activity Last Documented On 3 12:20PM ; [facility] Referred Patient to a Diabet es Self-Management Program Last Documented On 3 1:46PM ; [facility] Work Phone: [phone]) 828-711903-04-2023 History general Narrative - Reported Includes: Medical History in patient's chart Description Last Updated A recent examination by an ophthalmologi st 07/21/2022 07/23/2022 Last Documented On 3 2:32PM ; [facility] History of diabetes mellitus 07/23/2022 Last Documented On 3 2:32PM ; [facility] History of systemic hypertension 023 Last Documented On 3 2:32PM ; [facility] No previous hospitalizations 07/23/2022 Last Documented On 3 2:32PM ; [facility] Recent immunization for flu 07/23/2022 Last Documented On 3 2:32PM ; [facility] Work Phone: 1([phone]) 512-854802-28-2023 NoteCONSULTATION CONSULTATION DATE: 07/17/2022 TO: Dr. Prado CHIEF COMPLAINT: Includes severe bilateral lower back pain. HISTORY OF PRESENT ILLNESS: Review of systems, past medical/surgical history were obtained, documented on the health questionnaire and available upon request. She is a 72-year-old female who reports having pain starting 10 years ago; however, over the last six month, she reports an acceleration of her pain symptoms, causing her to have decreased quality of life, level of functioning and at times sleep pattern. She describes the pain as being 5-7/10 pain, sharp in character, increasing with activities such as standing, walking and performing transitioning maneuvers. She feels most comfortable in the semi-recumbent position. Denies any change in bowel and bladder habits or new sensorimotor changes in her lower extremities. EXAM: Her examination is notable for the patient having no clinical radiculopathy or myelopathy involving her lower extremities. Patient did have significant pain with lumbar facet joint loading maneuvers occurring bilaterally from L4 through S1, with associated myofascial spasm over the lumbar paravertebral muscles. She does have an implanted spinal column stimulator neurogenerator as well as neural electrodes, which she reports is not functioning well and has discontinued usage of the same. She reports it has not been used for at least more than one year. RECOMMENDATIONS: I recommend the patient proceed with a diagnostic bilateral facet joint injection at L4-5, L5-S1 using Marcaine 0.25%; physical therapy. Obtain lumbar spine films, PA and lateral views. I have asked her to start baclofen 10 mg pills, half a pill to one pill up to t.i.d. as tolerated. To reduce the use of [place] from 5 mg pills q.i.d. to 5 mg pill one b.i.d. as tolerated. Again, I have requested physical therapy for the patient as well. I have gone over the details with the patient. All her questions answered. She agreed to proceed with the outlined plan.[id number] Evaluation note* Encounter Date Diagnosis Assessment Notes Treatment Notes Treatment Clinical Notes September, Injury (ICD-10 - T14.90XA) September, Sprain of left ankle, unspecified ligament, initial encounter (ICD-10 - S93.402A) XR images and final report reviewed, soft tissue swelling noted. Aircast applied today in office. RICE therapy discussed- rest extremity, avoid excessive or strenuous activity, complete activity as tolerated; ice area for 15-20 minutes at a time multiple times a day, ensure thin cloth barrier between skin and ice; Splint/RILEY wrap area; keep extremity elevated. Advised patient to continue previous rx medications as directed as needed for discomfort. Instructed patient to follow up with PCP in 1 week. Immediate eval by ER for warning s/sx as discussed. Patient verbalizes understanding and is agreeable to treatment plan [employer] Other Evaluation noteNo assessment information available [facility] Work Phone: Evaluation note Includes: Assessments for all patient encounters Findings Encounter Date [Z68.36 - Body mass index [B IA] 36.0-36.9, adult] assessment of body mass index Medical Established Patient with Latia Hoffmanim 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 08/02/2022 Last Documented On 3 1:35PM ; [facility] Intervention and counseling on cessation of tobacco use, 3-10 minutes Discussed medication and nicotine replacement for tobacco cessation Medical Established Patient with Latia Sparks 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 08/02/2022 Last Documented On 3 1:35PM ; [facility] Visit for: person consulting for explanation of examination or test findings Medical Established Patient with Latia Sparks 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 08/02/2022 Last Documented On 3 1:35PM ; [facility] Generalized anxiety disorder Established Shirley ent with Cinthia Farfan ROUGE MIXER 07/23/2022 Last Documented On 3 12:17AM ; [facility] Intervention and counseling on cessation of tobacco use, 3-10 minutes Discussed medication and nicotine replacement for tobacco cessation Established Patient with Cinthia Stone ROUGE MIXER 07/23/2022 Last Documented On 3 12:17AM ; [facility] Moderate recurrent major depression E stablished Patient with Cinthia Stone ROUGE MIXER 07/23/2022 Last Documented On 3 12:17AM ; [facility] Nicotine dependence Established Patient with Cinthia Stone ROUGE MIXER 07/23/2022 Last Documented On 3 12:17AM ; [facility] Primary insomnia Established Patient with Deysi pugh Stone ROUGE MIXER 07/23/2022 Last Documented On 3 12:17AM ; [facility] [Z68.36 - Body mass index [B IA] 36.0-36.9, adult] assessment of body mass index Medical New Patient with Latia Sparks 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 07/23/2022 Last Documented On 3 2:32PM ; [facility] Diabetes Risk Test Score was nine score 07/23/2022 Medical New Patient with Latia Sparks 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 07/23/2022 Last Documented On 3 2:32PM ; [facility] Intervention and counseling on cessation of tobacco use, 3-10 minutes Discussed medication and nicotine replacement for tobacco cessation Medical New Patient with Latia Sparks 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 07/23/2022 Last Documented On 3 2:32PM ; [facility] Screening for Hep C Medical New Patient with Nad yelitza Sparks 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 07/23/2022 Last Documented On 3 2:32PM ; [facility] Screening for HIV Medical New Patient with Hiren Sparks 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 07/23/2022 Last Documented On 3 2:32PM ; [facility] Venipuncture was performed Medical New Patient w dmitry Sparks 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 07/23/2022 Last Documented On 3 2:32PM ; [facility] Visit for routine adult H&P without abnormal findings Medical New Patient with Latia Sparks 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 07/23/2022 Last Documented On 3 2:32PM ; [facility] Work Phone: Evaluation note Includes: Assessments for all patient encounters Findings Encounter Date [Z68.36 - Body mass index [B IA] 36.0-36.9, adult] assessment of body mass index Medical Established Patient with Latia Sparks 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 08/02/2022 Last Documented On 3 1:36PM ; [facility] Intervention and counseling on cessation of tobacco use, 3-10 minutes Discussed medication and nicotine replacement for tobacco cessation Medical Established Patient with Latia Sparks 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 08/02/2022 Last Documented On 3 1:36PM ; [facility] Visit for: person consulting for explanation of examination or test findings Medical Established Patient with Latia Sparks 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 08/02/2022 Last Documented On 3 1:36PM ; [facility] Generalized anxiety disorder BH Established Shirley ent with Cinthia Stone ROUGE MIXER 07/23/2022 Last Documented On 3 12:17AM ; [facility] Intervention and counseling on cessation of tobacco use, 3-10 minutes Discussed medication and nicotine replacement for tobacco cessation BH Established Patient with Cinthia Stone ROUGE MIXER 07/23/2022 Last Documented On 3 12:17AM ; [facility] Moderate recurrent major depression BH E stablished Patient with Cinthia Stone ROUGE MIXER 07/23/2022 Last Documented On 3 12:17AM ; [facility] Nicotine dependence BH Established Patient with Cinthia Stone ROUGE MIXER 07/23/2022 Last Documented On 3 12:17AM ; [facility] Primary insomnia BH Established Patient with Deysi Farfan ROUGE MIXER 07/23/2022 Last Documented On 3 12:17AM ; [facility] [Z68.36 - Body mass index [B IA] 36.0-36.9, adult] assessment of body mass index Medical New Patient with Latia Sparks 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 07/23/2022 Last Documented On 3 2:32PM ; [facility] Diabetes Risk Test Score was nine score 07/23/2022 Medical New Patient with Latia Bridger 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 07/23/2022 Last Documented On 3 2:32PM ; [facility] Intervention and counseling on cessation of tobacco use, 3-10 minutes Discussed medication and nicotine replacement for tobacco cessation Medical New Patient with Latia Bridger 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 07/23/2022 Last Documented On 3 2:32PM ; [facility] Screening for Hep C Medical New Patient with Nad yelitza Bridger 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 07/23/2022 Last Documented On 3 2:32PM ; [facility] Screening for HIV Medical New Patient with Hiren a Sparks 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 07/23/2022 Last Documented On 3 2:32PM ; [facility] Venipuncture was performed Medical New Patient w dmitry Sparks 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 07/23/2022 Last Documented On 3 2:32PM ; [facility] Visit for routine adult H&P without abnormal findings Medical New Patient with Latiakathryn Sparks 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 07/23/2022 Last Documented On 3 2:32PM ; [facility] Work Phone: History general Narrative - Reported* Type Description Date Medical History diabetes Medical History htn Medical History depression Medical History neuropathy Medical History [employer] Other History general Narrative - Reported Includes: Medical History in patient's chart Description Last Updated No previous suicide attempt 07/24/2022 Last Documented On 3 12:17AM ; [facility] A recent examination by an ophthalmologi st 07/21/2022 07/23/2022 Last Documented On 3 2:32PM ; [facility] History of diabetes mellitus 07/23/2022 Last Documented On 3 2:32PM ; [facility] History of systemic hypertension 023 Last Documented On 3 2:32PM ; [facility] No previous hospitalizations 07/23/2022 Last Documented On 3 2:32PM ; [facility] Recent immunization for flu 07/23/2022 Last Documented On 3 2:32PM ; [facility] Work Phone: History of Present illness Narrative History of Present Illness not supported for this document type No [facility] of Present [facility] Work Phone: Instructions* Name Dates Details Instructions not documented [facility] Work Phone: Patient problem outcome Narrative Includes: Evaluations & Outcomes for active Goals No Outcomes [facility] Work Phone: Progress note* Progress note Date Encounter Last Documented by 08/02/2022 Medical Established Patient Last documented on 08/02/2022; 1:35 PM, Latia AMYORGA; [facility] Active Problems & Conditions - 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 Referred Here No prior encounters. History of Present Illness Tunde Jack is a 72 year old female. - Allergy list reviewed - Reviewed Medications - Medication list reviewed Medically established patient presented to discuss lab results. Medical history is significant for diabetes mellitus, essential hypertension, generalized anxiety, hyperlipidemia, major depression, and primary insomnia. The patient's lab work showed hypertriglyceridemia, education has been provided. The patient lives a [place], where food is cooking. Denies any craving or triggers Current Medication - ALPRAZolam 0.5 MG Oral Tablet One tablet by mouth twice a day as NEEDED for severe anxiety attack ONLY., 10 days, 0 refills - Amitriptyline HCl 25 MG Oral Tablet one tablet at bedtime, 30 days, 0 refills - amLODIPine Besylate 10 MG Oral Tablet Take 1 tablet by mouth once a day, 30 days, 5 refills - ARIPiprazole 15 MG Oral Tablet Take 1 tablet by mouth once a day, 30 days, 5 refills - ARIPiprazole 15 MG Oral Tablet 30 days, 0 refills - Baclofen 10 MG Oral Tablet Take 1 tablet by mouth once a day, 30 days, 0 refills - BD Pen Needle Racheal 2nd Gen 32G X 4 MM Miscellaneous 32G X 4 MM Use needle for insulin into skin. Never use the same needle., 30 days, 0 refills - Fenofibrate 145 MG Oral Tablet one tablet at bedtime, 30 days, 0 refills - FLUoxetine HCl 10 MG Oral Capsule Take 1 tablet by mouth once a day, 30 days, 3 refills - Gabapentin 600 MG Oral Tablet One tablet by mouth three times a day., 30 days, 3 refills - hydroCHLOROthiazide 25 MG Oral Tablet one tablet by mouth daily, 30 days, 4 refills - HYDROcodone-Acetaminophen 5-325 MG Oral Tablet one tablet daily, 15 days, 0 refills - Insulin Lispro (1 Unit Dial) 100 UNIT/ML Subcutaneous Solution Pen-injector 15 days, 0 refills - Insulin Lispro (1 Unit Dial) 100 UNIT/ML Subcutaneous Solution Pen-injector 6 days, 0 refills - Insulin Lispro (1 Unit Dial) 100 UNIT/ML Subcutaneous Solution Pen-injector 14 units before dinner, 6 days, 3 refills - Insulin Lispro (1 Unit Dial) 100 UNIT/ML Subcutaneous Solution Pen-injector Inject 12 units subcutaneous before breakfast and before lunch14 units before dinner, 6 days, 3 refills - metFORMIN HCl 500 MG Oral Tablet one tablety twice a day, 30 days, 0 refills - Pantoprazole Sodium 40 MG Oral Tablet Delayed Release one tablet by mouth daily, 30 days, 5 refills - Pravastatin Sodium 20 MG Oral Tablet One tablet by mouth daily., 30 days, 5 refills - Sucralfate 1 GM Oral Tablet one tablet by mouth at bedtime, 30 days, 0 refills - traZODone HCl 100 MG Oral Tablet One tablet by mouth daily., 30 days, 3 refills - Tresiba FlexTouch 100 UNIT/ML Subcutaneous Solution Pen-injector 10 days, 0 refills - Tresiba FlexTouch 100 UNIT/ML Subcutaneous Solution Pen-injector 10 days, 0 refills - Tresiba FlexTouch 100 UNIT/ML Subcutaneous Solution Pen-injector 35 units before dinner, 10 days, 0 refills - Trulicity 0.75 MG/0.5ML Subcutaneous Solution Pen-injector 7 days, 0 refills - Trulicity 1.5 MG/0.5ML Subcutaneous Solution Pen-injector 1.5 mg, 7 days, 0 refills - Trulicity 1.5 MG/0.5ML Subcutaneous Solution Pen-injector 1.5 mg once a week, 30 days, 4 refills Past Medical/Surgical History Other: No previous suicide attempt Reported: Medical: No previous hospitalizations. A recent examination by an river guide 07/21/2022. Immunization History: Recent immunization for flu. Diagnoses: Systemic hypertension. Diabetes mellitus Surgical: - Cholecystectomy - Hernia repair - Hysterectomy - Tubal ligation Social History Environmental Exposure: Secondhand cigarette smoke exposure. Tobacco use: Cigarette smoking light: Patient smokes 1-10 cigarettes per day. Not using electronic cigarettes/vaping. Alcohol: Not using alcohol. Drug Use: Not using drugs denied by patient. Sexual: Denied sexual activity, sexual orientation Straight (not lesbian or dhaliwal), and gender identity Female. Allergies - No Known Allergies Family History Maternal: Type 1 diabetes mellitus Review Of Systems Head: No head symptoms. Cardiovascular: No cardiovascular symptoms, no chest pain or discomfort, no palpitations, the heart rate was not slow, and the heart rate was not fast. Pulmonary: No pulmonary symptoms, no daytime asthma symptoms, and no nighttime asthma symptoms. Gastrointestinal: No gastrointestinal symptoms. Musculoskeletal: No musculoskeletal symptoms. Neurological: No neurological symptoms, no dizziness, no vertigo, no lightheadedness, and no fainting. Psychological: No psychological symptoms. Skin: No skin symptoms. Physical Findings - Vitals taken 08/02/2022 10:15 am BP-Sitting R138/82 mmHg BP Cuff SizeLarge Pulse Rate-Zmmbzzp40 bpm Pulse RhythmRegular Respiration Rate18 per min Temp-Dmfcbrsk85.5 F Dvvxuz09 in Nqkzvi310 lbs Body Mass Index36.7 kg/m2 Body Surface Area2 m2 Oxygen Kwyufswvdp04 % O2 DeviceNone (Room Air) DyX005 % General Appearance: - Awake. - Alert. - Well developed. - Well nourished. - Body odor was normal. - In no acute distress. Oral Cavity: - General condition was good. Chest: - Normal. Lungs: - Respiration rhythm and depth was normal. - Respiratory movements were normal. - Clear to auscultation. Cardiovascular: Heart Rate And Rhythm: - Normal. Heart Sounds: - Normal. Murmurs: - No murmurs were heard. Thrill: - No thrill. Peripheral Vascular Exam: - Normal. Musculoskeletal System: General/bilateral: - Normal movement of all extremities. Posture: General/bilateral: - Posture was normal. Neurological: - Oriented to time, place, and person. Psychiatric: - Expression of emotions finding was normal. Appearance: - Not tired. - Clothing was appropriate. - Grooming was normal. Skin: - General appearance was normal. - Texture was normal. Assessment - Z71.2 - Person consulting for explanation of examination or test findings - Z68.36 - Body mass index [BMI] 36.0-36.9, adult - Intervention and counseling on cessation of tobacco use, 3-10 minutes Discussed medication and nicotine replacement for tobacco cessation Vaccinations - Received dose of Reported: Patient has received the COVID Vaccine Counseling/Education - Not wishing to stop smoking offered Quit Line information - Discussed nutritional needs teach healthy choices including fruits and vegetables - Patient education about a proper diet 36.7 - Patient education about physical activity benefits - Patient education about medication - Patient education about mental health - Discussed concerns about exercise: promote physical activity Plan StartCited- 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 Notes - Patient is not interested in the COVID-19 vaccination at this time. Practice Management Systolic blood pressure 130 - 139 mmHg and diastolic 80-89 mmHg diastolic 80-89 mmHg. [facility] Narrative - Reported Review of Systems not supported for this document type No Review of Systems [facility]ed[facility] Work Phone: Summary Purpose Family History Grandmother Name Dates Details Family history of cerebrovas cular accident (CVA)(V17.1, Z82.3) Status:Active Father Name Dates Details Family history of lung cance r(V16.1, Z80.1) Status:Active Description Last Updated Maternal history of type 1 diabetes pilar itus 07/23/2022 Last Documented On 3 2:32PM ; [facility] Description Last Updated Maternal history of type 1 diabetes pilar itus 07/23/2022 Last Documented On 3 2:32PM ; [facility] Description Last Updated Maternal history of type 1 diabetes pilar itus 07/23/2022 Last Documented On 3 2:32PM ; [facility] Description Last Updated Maternal history of type 1 diabetes pilar itus 07/23/2022 Last Documented On 3 2:32PM ; [facility] Description Last Updated Maternal history of type 1 diabetes pilar itus 07/23/2022 Last Documented On 3 2:32PM ; [facility] Description Last Updated Maternal history of type 1 diabetes pilar itus 07/23/2022 Last Documented On 3 2:32PM ; [facility] Description Last Updated Maternal history of type 1 diabetes pilar itus 07/23/2022 Last Documented On 3 2:32PM ; [facility] Description Last Updated Maternal history of type 1 diabetes pilar itus 07/23/2022 Last Documented On 3 2:32PM ; [facility] Description Last Updated Maternal history of type 1 diabetes pilar itus 07/23/2022 Last Documented On 3 2:32PM ; [facility] Advance Directives No Advanced Directives Records FoundNo Advanced Directives Records FoundNo Advanced Directives Records FoundNo Advanced Directives Records FoundNo Advanced Directives Records FoundNo Advanced Directives Records FoundNo Advanced Directives Records Found Includes: Current Advance Directives No Advance Directives Recorded Includes: Current Advance Directives No Advance Directives Recorded Includes: Current Advance Directives No Advance Directives Recorded Includes: Current Advance Directives No Advance Directives RecordedNo Advanced Directives Records Found Includes: Current Advance Directives No Advance Directives Recorded Includes: Current Advance Directives No Advance Directives RecordedNo Advanced Directives Records Found Includes: Current Advance Directives No Advance Directives Recorded Includes: Current Advance Directives No Advance Directives Recorded Includes: Current Advance Directives No Advance Directives Recorded Physical Exam Physical Exam not supported for this document type No Physical Exam Recorded Physical Exam not supported for this document type No Physical Exam Recorded Physical Exam not supported for this document type No Physical Exam Recorded Physical Exam not supported for this document type No Physical Exam Recorded Physical Exam not supported for this document type No Physical Exam Recorded Physical Exam not supported for this document type No Physical Exam Recorded Physical Exam not supported for this document type No Physical Exam Recorded Physical Exam not supported for this document type No Physical Exam Recorded Physical Exam not supported for this document type No Physical Exam Recorded Additional Source Comments INFORMATION SOURCE (unrecogn ized section and content) DATE CREATED AUTHOR 03/14/2018 [facility] [facility] DATE CREATED AUTHOR AUTHOR'S ORGANIZ ATION 05/28/2018 [facility] ([place]) DATE CREATED AUTHOR AUTHOR'S ORGANIZ ATION 02/05/2019 [facility] DATE CREATED AUTHOR AUTHOR'S ORGANIZ ATION 02/28/2019 [facility] DATE CREATED AUTHOR AUTHOR'S ORGANIZ ATION 03/25/2019 [facility] DATE CREATED AUTHOR AUTHOR'S ORGANIZ ATION 01/16/2022 [facility] DATE CREATED AUTHOR AUTHOR'S ORGANIZ ATION 07/13/2022 [facility] DATE CREATED AUTHOR AUTHOR'S ORGANIZ ATION 09/30/2022 [facility] DATE CREATED AUTHOR AUTHOR'S ORGANIZ ATION 11/11/2022 [facility] Care Teams (unrecognized sec tion and content) Team Status: Inactive Member Role Status Dates Constantine Hernandez MD Attending Provider Active Goals (unrecognized section and content) Goals may be documented in a n alternate sectionNo Information Includes: Active GoalsNo Active Goals Recorded Includes: Active GoalsNo Active Goals Recorded Includes: Active GoalsNo Active Goals Recorded Includes: Active GoalsNo Active Goals Recorded Includes: Active GoalsNo Active Goals Recorded Includes: Active GoalsNo Active Goals Recorded Includes: Active GoalsNo Active Goals Recorded Includes: Active GoalsNo Active Goals Recorded Includes: Active GoalsNo Active Goals Recorded REASON FOR VISIT (unrecogniz ed section and content) LEFT ANKLE PAIN X2 WEEKS TWI STED GETTING OUT OF BED Source Comments (unrecognize d section and content) In the event this informatio n is protected by the Federal Confidentiality of Alcohol and Drug Abuse Patient Records regulations: The Federal rules restrict any use of the information to criminally investigate or prosecute any alcohol or drug abuse patient.[facility] FOR RECORDS PERTAINING TO PATIENTS WHO ARE OR HAVE BEEN ENROLLED IN A CHEMICAL DEPENDENCY/SUBSTANCEABUSE PROGRAM, SOME INFORMATION MAY BE OMITTED. This clinical summary was aggregated from multiple sources. Caution should be exercised in using it in the provision of clinical care. This summary normalizes information from multiple sources, and as a consequence, information in this document may materially change the coding, format and clinical context of patient data. In addition, data may be omitted in some cases. CLINICAL DECISIONS SHOULD BE BASED ON THE PRIMARY CLINICAL RECORDS. [facility]In [facility]. provides no warranty or guarantee of the accuracy or completeness of information in this document.
--- OUTSIDE RECORDS SUMMARY | 2023-05-07 20:20 | XMS_ITS | CCD ---
Author Name Unknown Address [address] [place] [address] Organization [facility] Care Team Providers Care Agriscience Technology Instructor Name Role Phone Morgan Barcenas Unavailable Unavailable PROVIDER, UNKNOWN Unavailable Unavailable Ahmed, Ilia Unavailable Unavailable Morgan Barcenas Unavailable Unavailable PROVIDER, UNKNOWN Unavailable Unavailable Ahmed, Ilia Unavailable Unavailable STIVEN ANDINO Unavailable Unavailable Unknown, Referring Provider Unavailable Unav ailable Leah Brock Unavailable Unavailable Ahmed, Ilia Unavailable Unavailable MD Constantine Hernandez Attending Provider Isidra Hernandez Unavailable Sparks GENERAL PEDIATRICIAN, Latia Attending Unavailable Sparks GENERAL PEDIATRICIAN, Latia Primary Care Provider Unavailable Primary Care Provider Unavailabl e Sparks GENERAL PEDIATRICIAN, Laita Primary Care Provider MISC, DR BECERRA Admitting Unavailable MISC, DR BECERRA Attending Unavailable NADCLAUDIO GERALDO A Primary Care Unavailable MISC, DR BECERRA Consulting Unavailable MISC, DR BECERRA Admitting Unavailable MISC, DR BECERRA Attending Unavailable JOHAN GERALDO A Primary Care Unavailable MISC, DR [...] Anti-Epileptic Agents (1 source) topiramate Drug Allergy [facility] Work Phone: Penicillins (antibiotic) (1 source) Penicillins; Translations: [Penicillins] Drug Allergy [facility] Work Phone: (2 sources) Haloperidol; Translations: [Haldol] Drug Allergy 0 Unknown [facility] (1 source) Penicillin V Drug Allergy Unknown [employer] Other (1 source) Thioridazine Drug Allergy Unknown [employer] Other (1 source) topiramate Drug Allergy Unknown [employer] Other (1 source) Tai Flavor Drug allergy Unknown [employer] Other (4 sources) tai allergenic extract Drug Allergy 0 Hives / Urticaria, Shock [facility] (1 source) Penicillin Drug Allergy 0 [facility] (4 sources) topiramate Drug Allergy 0 [facility] (3 sources) Penicillins Allergy to substance 3 Hives / Urticaria [facility] (3 sources) Thioridazine Drug Allergy 3 [facility] Medications Current Medications Medication Drug Class(es) Dates [...] t 12/18/2022 - 11/15/2022 Provider: Latia Sparks GENERAL PEDIATRICIAN Start: 12-18-2022 End: 11-15-2022 Gabapentin 600 MG Oral Table t 12/18/2022 - 11/15/2022 Provider: Latia Hoffmanim GENERAL PEDIATRICIAN Start: 08-22-2022 End: 11-15-2022 Gabapentin 600 MG Oral Table t 08/22/2022 - 11/15/2022 Provider: Latia GREENP Start: 07-03-2022 End: 08-02-2022 Gabapentin 600 MG Oral Table t 07/23/2022 - 08/02/2022 Provider: Latia Sparks GENERAL PEDIATRICIAN Gabapentin Activ e Gabapentin 600 M G Oral Tablet Refills: 0 Active hydrALAZINE hydrochloride 25 mg oral tablet (19 sources) Arteriolar Vasodilator Start: 02-06-2023 hydrALAZINE HCl 25 M G Oral Tablet 02/06/2023 Provider: Latia GREENP Start: 09-09-2022 End: 11-15-2022 hydrALAZINE HCl 25 MG Oral T ablet 11/08/2022 - 11/15/2022 Provider: Latia Sparks GENERAL PEDIATRICIAN Start: 09-09-2022 End: 08-02-2022 hydrALAZINE HCl 25 [...] Refills: 0 Active Dextromethorphan (1 source) Uncompetitive S-oaxmyl-X-aspartate Receptor Antagonist, Sigma-1 Agonist DexAlone CAPS Refills: [...] unspecified] Onset: 01-08-2018 Other aftercare (1 source) [facility] (current) use of insulin; Translations: [[facility] CURRENT USE OF INSULIN] Onset: 09-27-2022 Episodic [...] 2022 Albumin [Mass/Vol] 4.3 g/dL Normal 3.5-5.2 [facility] Comment on above: Performed By: #### L IPR, CP #### [facility] [address] [place] [address] Slip Tender: Genaro Angel MD Albumin/Glob Ratio 1.5 Normal 1.0-2.5 [facility] Comment on above: Performed By: #### L IPR, CP #### [facility] [address] [place] [address] Slip Tender: Genaro Angel MD Alkaline Phos 116 U/L High 35-[address] [facility] Comment on above: Performed By: #### L IPR, CP #### [address] [address] Slip Tender: Genaro Angel MD ALT [Catalytic activity/Vol] 25 U/L Normal 5-33 [facility] Comment on above: Performed By: #### L IPR, CP #### [address] [address] Slip Tender: Genaro Angel MD Anion gap [Moles/Vol] 15 mmol/L Normal 9-17 [facility] Comment on above: Performed By: #### L IPR, CP #### [address] [address] Slip Tender: Genaro Angel MD AST [Catalytic activity/Vol] 32 U/L High <32 [facility] Comment on above: Performed By: #### L IPR, CP #### [facility] [address] [address] Slip Tender: Genaro Angel MD Bilirubin [Mass/Vol] 0.2 mg/dL Low 0.3-1.[address] [facility] Comment on above: Performed By: #### L IPR, CP #### [facility] [address] [place] [address] Slip Tender: Genaro Angel MD Calcium [Mass/Vol] 10.7 mg/dL High 8.6-10.4 [facility] Comment on above: Performed By: #### L IPR, CP #### [facility] [address] [place] [address] Slip Tender: Genaro Angel MD Chloride [Moles/Vol] 102 mmol/L Normal 98-[address] [facility] Comment on above: Performed By: #### L IPR, CP #### [facility] [address] [place] [address] Slip Tender: Genaro Angel MD CO2 [Moles/Vol] 23 mmol/L Normal 20-31 [facility] Comment on above: Performed By: #### L IPR, CP #### [address] [address] Slip Tender: Genaro Angel MD Creatinine [Mass/Vol] 0.93 mg/dL High 0.50-0.90 [facility] Comment on above: Performed By: #### L IPR, CP #### [address] [address] Slip Tender: Genaro Angel MD GFR/1.73 sq M.predicted dina g non-blacks MDRD (S/P/Bld) [Vol rate/Area] mL/min/{1.73_m2} Normal >60 [facility] Comment on above: Result Comment: These [...] Performed By: #### L IPR, CP #### [address] [address] Slip Tender: Genaro Angel MD Glucose [Mass/Vol] 138 mg/dL High 70-99 [facility] Comment on above: Performed By: #### L IPR, CP #### [address] [address] Slip Tender: Genaro Angel MD Potassium [Moles/Vol] 5.3 mmol/L Normal 3.7-5.3 [facility] Comment on above: Performed By: #### L IPR, CP #### [address] [address] Slip Tender: Genaro Angel MD Protein [Mass/Vol] 7.1 g/dL Normal 6.4-8.3 [facility] Comment on above: Performed By: #### L IPR, CP #### [address] [address] Slip Tender: Genaro Angel MD Sodium [Moles/Vol] 140 mmol/L Normal 135-144 [facility] Comment on above: Performed By: #### L IPR, CP #### [address] [address] Slip Tender: Genaro Angel MD Urea nitrogen [Mass/Vol] 26 mg/dL High 8-23 [facility] Comment on above: Performed By: #### L IPR, CP #### [address] [address] Slip Tender: Genaro Angel MD Lipid Profileon 11-10-2022 Cholesterol [Mass/Vol] 152 mg/dL Normal <200 [facility] Comment on above: Result Comment: Cholesterol Guidelines: <200 Desirable 200-240 Borderline >240 Undesirable Performed By: #### L IPR, CP #### [address] [address] Slip Tender: Genaro Angel MD Cholesterol in HDL [Mass/Vol] 30 mg/dL Low >40 [facility] Comment on above: Result Comment: HDL Guidelines: <40 Undesirable 40-59 Borderline >59 Desirable Performed By: #### L IPR, CP #### [address] [phone] Slip Tender: Genaro Angel MD Cholesterol in LDL [Mass/Vol] 44 mg/dL Normal 0-130 [facility] Comment on above: Result Comment: LDL Guidelines: <100 Desirable 100-129 Near to/above Desirable 130-159 Borderline >159 Undesirable Direct (measured) LDL and calculated LDL are not interchangeable tests. Performed By: #### L IPR, CP #### [facility] [employer] [address] [place] [address] Slip Tender: Genaro Angel MD Cholesterol.total/Cholestero l in HDL [Mass ratio] 5.1 {ratio} High <5 [facility] Comment on above: Performed By: #### L IPR, CP #### [address] [phone] Slip Tender: Genaro Angel MD Triglyceride [Mass/Vol] 390 mg/dL High <150 [facility] Comment on above: Result Comment: Triglyceride Guidelines: <150 Desirable 150-199 Borderline 200-499 High >499 Very high Based on AHA Guidelines for fasting triglyceride, February 2012. Performed By: #### L IPR, CP #### [address] [address] Slip Tender: Genaro Angel MD Laboratory - Chemistry and C hemistry - challengeon 11-09-2022 Albumin [Mass/Vol] 4.3 g/dL (3.5-5.2 ) [facility] Comment on above: Note: Responsible Ob linux server engineer: CCEV AUTOFILE (3002) ALT [Catalytic activity/Vol] 25 U/L (5-33 ) [facility] Comment on above: Note: Responsible Ob linux server engineer: CCEV AUTOFILE (3002) Anion gap [Moles/Vol] 15 mmol/L (9-17 ) [facility] Comment on above: Note: Responsible Ob linux server engineer: CCEV AUTOFILE (3002) AST [Catalytic activity/Vol] 32 U/L High (<32 ) [facility] Comment on above: Note: Responsible Ob linux server engineer: CCEV AUTOFILE (3002) Bilirubin [Mass/Vol] 0.2 mg/dL Low (0.3-1.2 ) [facility] Comment on above: Note: Responsible Ob linux server engineer: CCEV AUTOFILE (3002) Calcium [Mass/Vol] 10.7 mg/dL High (8.6-10.4 ) [facility] Comment on above: Note: Responsible Ob linux server engineer: CCEV AUTOFILE (3002) Chloride [Moles/Vol] 102 mmol/L (98-107 ) [facility] Comment on above: Note: Responsible Ob linux server engineer: CCEV AUTOFILE (3002) Cholesterol [Mass/Vol] 152 mg/dL (<200 ) [facility] Comment on above: Note: Cholesterol Gu idelines:<200 Dexklpqpr544-274 Borderline>240 UndesirableResponsible Observer: CCEV AUTOFILE (3002) Cholesterol.total/Cholestero l in HDL [Mass ratio] 5.1 {ratio} High (<5 ) [facility] Comment on above: Note: Responsible Ob linux server engineer: CCEV AUTOFILE (3002) CO2 [Moles/Vol] 23 mmol/L (20-31 ) [facility] Comment on above: Note: Responsible Ob linux server engineer: CCEV AUTOFILE (3002) Creatinine [Mass/Vol] 0.93 mg/dL High (0.50-0.90 ) [facility] Comment on above: Note: Responsible Ob linux server engineer: CCEV AUTOFILE (3002) GFR/1.73 sq M.predicted dina g non-blacks MDRD (S/P/Bld) [Vol rate/Area] mL/min/{1.73_m2} (>60 ) [facility] Comment on above: Note: These results are [...] Glucose [Mass/Vol] 138 mg/dL High (70-99 ) [facility] Comment on above: Note: Responsible Ob linux server engineer: CCEV AUTOFILE (3002) Magnesium [Mass/Vol] 30 mg/dL Low (>40 ) [facility] Comment on above: Note: HDL Guidelines :<40 Twjyunzrard31-66 Borderline>59 DesirableResponsible Observer: CCEV AUTOFILE (3002) Magnesium [Mass/Vol] 44 mg/dL (0-130 ) [facility] Comment on above: Note: LDL Guidelines :<100 Btzakidac874-785 Near to/above Ubsqackkx495-204 Borderline>159 UndesirableDirect (measured) LDL and calculated LDL are not interchangeable tests.Responsible Observer: CCEV AUTOFILE (3002) Potassium [Moles/Vol] 5.3 mmol/L (3.7-5.3 ) [facility] Comment on above: Note: Responsible Ob linux server engineer: CCEV AUTOFILE (3002) Protein [Mass/Vol] 7.1 g/dL (6.4-8.3 ) [facility] Comment on above: Note: Responsible Ob linux server engineer: CCEV AUTOFILE (3002) Sodium [Moles/Vol] 140 mmol/L (135-144 ) [facility] Comment on above: Note: Responsible Ob linux server engineer: CCEV AUTOFILE (3002) Triglyceride [Mass/Vol] 390 mg/dL High (<150 ) [facility] on above: Note: Triglyceride G uidelines:<150 [id number] Bnyidkrjcm562-576 High>499 Very highBased on AHA Guidelines for fasting triglyceride, February 2012.Responsible Observer: CCEV AUTOFILE (3002) Urea nitrogen [Mass/Vol] 26 mg/dL High (8-23 ) [facility] Comment on above: Note: Responsible Ob linux server engineer: CCEV AUTOFILE (3002) No Panel Informationon 11-09 Albumin/Glob Ratio 1.5 (1.0-2.5 ) [facility] Comment on above: Note: Responsible Ob linux server engineer: CCEV AUTOFILE (300) Alkaline Phos 116 U/L High (35-104 ) [facility] Comment on above: Note: Responsible Ob linux server engineer: CCEV AUTOFILE ([id number]) Reported Physicians See Note [facility] Comment on above: Note: Reported Physi cians:Ordering: Sparks, Latia OMARAttending: Sparks, NadiraReferring: Sparks, Latia CREATININE URINEon 3 URINE CREAT 31.31 mg/dL Normal 20.00-300.00 [facility] Comment on above: Performed By: #### C REAU #### [facility] [address] [place] [address] Dr. Shashi Jimenez MICROALBUMIN, ROCKHOLDS URon 09-17 mALB 14.3 mg/L Normal <=30.0 [facility] Comment on above: Performed By: #### M ALBR #### [facility] [address] [place] [address] Dr. Shashi Jimenez PROF 14(COMP METB)on 023 Albumin [Mass/Vol] 3.7 g/dL Normal 3.4-5.0 [facility] Comment on above: Performed By: #### C MP #### [facility] [address] [place] [address] Dr. Shashi Jimenez Albumin/Globulin [Mass ratio] 0.9 {ratio} Normal [facility] Comment on above: Performed By: #### C MP #### [facility] [address] [address] [address] Shashi Jimenez ALP [Catalytic activity/Vol] 109 U/L Normal 46-116 [facility] Comment on above: Performed By: #### C MP #### [facility] [address] [address] [address] Shashi Jimenez ALT [Catalytic activity/Vol] 39 U/L Normal 14-59 [facility] Comment on above: Performed By: #### C MP #### [facility] [address] [place] [address] Dr. Shashi Jimenez Anion gap [Moles/Vol] 12.0 mmol/L Normal [facility] Comment on above: Performed By: #### C MP #### [facility] [address] [address] [address] Shashi Jimenez AST [Catalytic activity/Vol] 35 U/L Normal 15-37 [facility] Comment on above: Performed By: #### C MP #### [facility] [address] [address] [address] Shashi Jimenez Bilirubin [Mass/Vol] 0.3 mg/dL Normal 0.2-1.0 [facility] Comment on above: Performed By: #### C MP #### [facility] [address] [address] [address] Shashi Jimenez Calcium [Mass/Vol] 10.5 mg/dL Critically high 8.5-10.1 [facility] Comment on above: Performed By: #### C MP #### [facility] [address] [address] [address] Shashi Jimenez Chloride [Moles/Vol] 103 mmol/L Normal 98-107 [facility] Comment on above: Performed By: #### C MP #### [facility] [address] [address] [address] Shashi Jimenez CO2 [Moles/Vol] 29.1 mmol/L Normal 21.0-32.0 [facility] Comment on above: Performed By: #### C MP #### [facility] [address] [address] [address] Shashi Jimenez Creatinine [Mass/Vol] 1.04 mg/dL Critically high 0.55-1.02 [facility] Comment on above: Performed By: #### C MP #### [facility] [address] [address] [address] Shashi Jimenez EGFR-AF EMIRATI >60 Normal >=60 [facility] Comment on above: Performed By: #### C MP #### [facility] [address] [address] [address] Shashi Jimenez EGFR-NON AF EMIRATI 52 mL/min/1.73m2 Critically low >=60 [facility] Comment on above: Performed By: #### C MP #### [facility] [address] [address] [address] Shashi Jimenez Globulin (S) [Mass/Vol] 4.2 g/dL Normal [facility] Comment on above: Performed By: #### C MP #### [facility] [address] [address] [address] Shashi Jimenez Glucose [Mass/Vol] 258 mg/dL Critically high 74-106 [facility] Comment on above: Performed By: #### C MP #### [facility] [address] [address] [address] Shashi Jimenez Potassium [Moles/Vol] 4.1 mmol/L Normal 3.5-5.1 [facility] Comment on above: Performed By: #### C MP #### [facility] [address] [address] [address] Shashi Jimenez Protein [Mass/Vol] 7.9 g/dL Normal 6.4-8.2 [facility] Comment on above: Performed By: #### C MP #### [facility] [address] [address] [address] Shashi Jimenez Sodium [Moles/Vol] 140 mmol/L Normal 136-145 [facility] Comment on above: Performed By: #### C MP #### [facility] [address] [address] [address] Shashi Jimenez Urea nitrogen [Mass/Vol] 23.0 mg/dL Critically high 7.0-18 .0 [facility] Comment on above: Performed By: #### C MP #### [facility] [address] [address] [address] Shashi Jimenez Urea nitrogen/Creatinine [Mass ratio] 22.1 mg/mg Normal [facility] Comment on above: Performed By: #### C MP #### [facility] [address] [address] [address] Shashi Jimenez POINT OF CARE GLUCOSEon 05-0 Glucose [Mass/Vol] 97 mg/dL Normal 74-106 [facility] Comment on above: Performed By: #### P OCGLUC #### [facility] [address] [address] [address] Shashi Jimenez POINT OF CARE GLUCOSEon 07-19 Glucose [Mass/Vol] 160 mg/dL Critically high 74-106 [facility] Comment on above: Performed By: #### P OCGLUC #### [facility] [address] [address] [address] LSPINE WO CONon [...] by: ERIN BERMAN Date: 2022-07-27 16:56 Normal [facility] CBCon 07-24-2022 Erythrocyte distribution wid th (RBC) [Ratio] 14.1 % Normal 11.8-14.4 [facility] Comment on above: Performed By: #### I PF, TSHX, VD25, CBC, CP, LIPR #### [address] [address] Slip Tender: Genaro Angel MD Hematocrit (Bld) [Volume fraction] 43.9 % Normal 36.3-47.1 [facility] Comment on above: Performed By: #### I PF, TSHX, VD25, CBC, CP, LIPR #### [address] [address] Slip Tender: Genaro Angel MD Hemoglobin (Bld) [Mass/Vol] 14.3 g/dL Normal 11.9-15. 1 [facility] Comment on above: Performed By: #### I PF, TSHX, VD25, CBC, CP, LIPR #### [place] [address] Slip Tender: Genaro Angel MD MCH (RBC) [Entitic mass] 30.5 pg Normal 25.2-33.5 [facility] Comment on above: Performed By: #### I PF, TSHX, VD25, CBC, CP, LIPR #### [address] [address] Slip Tender: Genaro Angel MD MCHC (RBC) [Mass/Vol] 32.6 g/dL Normal 28.4-34.8 [facility] Comment on above: Performed By: #### I PF, TSHX, VD25, CBC, CP, LIPR #### [address] [address] Slip Tender: Genaro Angel MD MCV (RBC) [Entitic vol] 93.6 fL Normal 82.6-102.9 [facility] Comment on above: Performed By: #### I PF, TSHX, VD25, CBC, CP, LIPR #### [address] [address] Slip Tender: Genaro Angel MD NRBC Automated 0.0 per 100 WBC Normal 0.0 [facility] Comment on above: Performed By: #### I PF, TSHX, VD25, CBC, CP, LIPR #### [address] [phone] Slip Tender: Genaro Angel MD Platelet Count See Reflexed IPF Result Normal 138-453 [facility] Comment on above: Performed By: #### I PF, TSHX, VD25, CBC, CP, LIPR #### [address] [phone] Slip Tender: Genaro Angel MD RBC (Bld) [#/Vol] 4.69 10*6/uL Normal 3.95-5.11 [facility] Comment on above: Performed By: #### I PF, TSHX, VD25, CBC, CP, LIPR #### [address] [phone] Slip Tender: Genaro Angel MD WBC (Bld) [#/Vol] 8.4 10*3/uL Normal 3.5-11.3 [facility] Comment on above: Performed By: #### I PF, TSHX, VD25, CBC, CP, LIPR #### [address] [phone] Slip Tender: Genaro Angel MD Hematocrit (Bld) [Volume fraction] 43.9 % 36.3 - 47.1 % [facility] Hemoglobin (Bld) [Mass/Vol] 14.3 g/dL 11.9 - 15.1 g/dL [facility] MCH (RBC) [Entitic mass] 30.5 pg 25.2 - 33.5 pg [facility] MCHC (RBC) [Mass/Vol] 32.6 g/dL 28.4 - 34.8 g/ dL [facility] MCV (RBC) [Entitic vol] 93.6 fL 82.6 - 102.9 fL [facility] NRBC Automated 0.0 0.0 per 100 WBC [facility] Platelet distribution width (Bld) [Ratio] 14.1 % 11.8 - 14.4 % [facility] Platelets (Bld) [#/Vol] See Reflexed IPF Result [facility] RBC (Bld) [#/Vol] 4.69 10*6/uL 3.95 - 5.11 m/uL [facility] WBC (Bld) [#/Vol] 8.4 10*3/uL [facility] Comp Metabolic Profon 2022 Albumin [Mass/Vol] 4.3 g/dL Normal 3.5-5.2 [facility] Comment on above: Performed By: #### I PF, TSHX, VD25, CBC, CP, LIPR #### [facility] [employer] [address] [place] [phone] Slip Tender: Genaro Angel MD Albumin/Glob Ratio 1.3 Normal 1.0-2.5 [facility] Comment on above: Performed By: #### I PF, TSHX, VD25, CBC, CP, LIPR #### [employer] [address] [place] [address] Slip Tender: Genaro Angel MD Alkaline Phos 116 U/L High 35-[address] [facility] Comment on above: Performed By: #### I PF, TSHX, VD25, CBC, CP, LIPR #### [employer] [address] [place] [phone] Slip Tender: Genaro Angel MD ALT [Catalytic activity/Vol] 27 U/L Normal 5-33 [facility] Comment on above: Performed By: #### I PF, TSHX, VD25, CBC, CP, LIPR #### [employer] [address] [place] [phone] Slip Tender: Genaro Angel MD Anion gap [Moles/Vol] 15 mmol/L Normal 9-17 [facility] Comment on above: Performed By: #### I PF, TSHX, VD25, CBC, CP, LIPR #### [facility] [employer] [address] [place] [address] Slip Tender: Genaro Angel MD AST [Catalytic activity/Vol] 30 U/L Normal <32 [facility] Comment on above: Performed By: #### I PF, TSHX, VD25, CBC, CP, LIPR #### [facility] [employer] [address] [place] [address] Slip Tender: Genaro Angel MD Bilirubin [Mass/Vol] 0.4 mg/dL Normal 0.3-1.[address] [facility] Comment on above: Performed By: #### I PF, TSHX, VD25, CBC, CP, LIPR #### [facility] [employer] [address] [place] [address] Slip Tender: Genaro Angel MD Calcium [Mass/Vol] 10.9 mg/dL High 8.6-10.4 [facility] Comment on above: Performed By: #### I PF, TSHX, VD25, CBC, CP, LIPR #### [facility] [employer] [address] [place] [address] Slip Tender: Genaro Angel MD Chloride [Moles/Vol] 100 mmol/L Normal 98-[address] [facility] Comment on above: Performed By: #### I PF, TSHX, VD25, CBC, CP, LIPR #### [facility] [employer] [address] [place] [address] Slip Tender: Genaro Angel MD CO2 [Moles/Vol] 20 mmol/L Normal 20-31 [facility] Comment on above: Performed By: #### I PF, TSHX, VD25, CBC, CP, LIPR #### [facility] [facility] [address] [place] [address] [phone] Slip Tender: Genaro Angel MD Creatinine [Mass/Vol] 0.95 mg/dL High 0.50-0.90 [facility] Comment on above: Performed By: #### I PF, TSHX, VD25, CBC, CP, LIPR #### [facility] [address] [place] [address] [phone] Slip Tender: Genaro Angel MD GFR/1.73 sq M.predicted dina g non-blacks MDRD (S/P/Bld) [Vol rate/Area] mL/min/{1.73_m2} Normal >60 [facility] Comment on above: Result Comment: These [...] PF, TSHX, VD25, CBC, CP, LIPR #### [facility] [employer] [address] [place] [address] [phone] Slip Tender: Genaro Angel MD Glucose [Mass/Vol] 259 mg/dL High 70-99 [facility] Comment on above: Performed By: #### I PF, TSHX, VD25, CBC, CP, LIPR #### [facility] [address] [place] [address] [phone] Slip Tender: Genaro Angel MD Potassium [Moles/Vol] 4.7 mmol/L Normal 3.7-5.3 [facility] Comment on above: Performed By: #### I PF, TSHX, VD25, CBC, CP, LIPR #### [facility] [employer] [address] [place] [address] [phone] Slip Tender: Genaro Angel MD Protein [Mass/Vol] 7.6 g/dL Normal 6.4-8.3 [facility] Comment on above: Performed By: #### I PF, TSHX, VD25, CBC, CP, LIPR #### [facility] [address], [place] [phone] Slip Tender: Genaro Angel MD Sodium [Moles/Vol] 135 mmol/L Normal 135-144 [facility] Comment on above: Performed By: #### I PF, TSHX, VD25, CBC, CP, LIPR #### [facility] [address], [place] [phone] Slip Tender: Genaro Angel MD Urea nitrogen [Mass/Vol] 33 mg/dL High 8-23 [facility] Comment on above: Performed By: #### I PF, TSHX, VD25, CBC, CP, LIPR #### [facility] [address], [place] [phone] Slip Tender: Genaro Angel MD Comprehensive Metabolic Pane [facility] 07-24-2022 Albumin [Mass/Vol] 4.3 g/dL 3.5 - 5.2 g/dL [facility] Albumin/Globulin [Mass ratio] 1.3 {ratio} 1.0 - 2.5 [facility] ALP [Catalytic activity/Vol] 116 U/L High 35 - 104 U/L [facility] ALT [Catalytic activity/Vol] 27 U/L 5 - 33 U/L [facility] Anion gap [Moles/Vol] 15 mmol/L 9 - 17 mmol/L [facility] AST [Catalytic activity/Vol] 30 U/L NINF - 32 U/L [facility] Bilirubin [Mass/Vol] 0.4 mg/dL 0.3 - 1.2 mg/dL [facility] Calcium [Mass/Vol] 10.9 mg/dL High 8.6 - 10.4 mg/dL [facility] Chloride [Moles/Vol] 100 mmol/L 98 - 107 mmol/L [facility] CO2 [Moles/Vol] 20 mmol/L 20 - 31 mmol/L [facility] Creatinine [Mass/Vol] 0.95 mg/dL High 0.50 - 0.90 mg /dL [facility] GFR/1.73 sq M.predicted MDRD (S/P/Bld) [Vol rate/Area] - PINF [facility] Comment on above: These results are not [...] 259 mg/dL High 70 - 99 mg/dL [facility] Potassium [Moles/Vol] 4.7 mmol/L 3.7 - 5.3 mmol /L [facility] Protein [Mass/Vol] 7.6 g/dL 6.4 - 8.3 g/dL [facility] Sodium [Moles/Vol] 135 mmol/L 135 - 144 mmol/L [facility] Urea nitrogen [Mass/Vol] 33 mg/dL High 8 - 23 mg/d L [facility] Immature Platelet Fractionon 07-24-2022 Platelet, Fluorescence 158 [facility] Comment on above: ORDERED BY LAB Platelet, Immature Fraction 4.5 % 1.1 - 10 .3 % [facility] Comment on above: ORDERED BY LAB [facility] Lipid Panelon 07-24-2022 Cholesterol [Mass/Vol] 153 mg/dL NINF - 200 mg /dL [facility] Comment on above: Cholesterol Guidelines: <200 Desirable 200-240 Borderline >240 Undesirable Cholesterol in HDL [Mass/Vol] 29 mg/dL Low 40 - P INF mg/dL [facility] Comment on above: HDL Guidelines: <40 Undesirable 40-59 Borderline >59 Desirable Cholesterol in LDL [Mass/Vol] 60 mg/dL 0 - 13 0 mg/dL [facility] Comment on above: LDL Guidelines: <100 Desirable 100-129 Near to/above Desirable 130-159 Borderline >159 Undesirable Direct (measured) LDL and calculated LDL are not interchangeable tests. Cholesterol.total/Cholestero l in HDL [Mass ratio] 5.3 {ratio} High NINF - 5 [facility] Triglyceride [Mass/Vol] 319 mg/dL [facility]/dL [facility] Comment on above: Triglyceride Guidelines: <150 Desirable 150-199 Borderline 200-499 High >499 Very high Based on AHA Guidelines for fasting triglyceride, February 2012. Lipid Profileon 07-24-2022 Cholesterol [Mass/Vol] 153 mg/dL Normal <200 [facility] Comment on above: Result Comment: Cholesterol Guidelines: <200 Desirable 200-240 Borderline >240 Undesirable Performed By: #### I PF, TSHX, VD25, CBC, CP, LIPR #### [address] [phone] Slip Tender: Genaro Angel MD Cholesterol in HDL [Mass/Vol] 29 mg/dL Low >40 [facility] Comment on above: Result Comment: HDL Guidelines: <40 Undesirable 40-59 Borderline >59 Desirable Performed By: #### I PF, TSHX, VD25, CBC, CP, LIPR #### [address] [address] Slip Tender: Genaro Angel MD Cholesterol in LDL [Mass/Vol] 60 mg/dL Normal 0-130 [facility] Comment on above: Result Comment: LDL Guidelines: <100 Desirable 100-129 Near to/above Desirable 130-159 Borderline >159 Undesirable Direct (measured) LDL and calculated LDL are not interchangeable tests. Performed By: #### I PF, TSHX, VD25, CBC, CP, LIPR #### [facility] [address] [place] [address] [phone] Slip Tender: Genaro Angel MD Cholesterol.total/Cholestero l in HDL [Mass ratio] 5.3 {ratio} High <5 [facility] Comment on above: Performed By: #### I PF, TSHX, VD25, CBC, CP, LIPR #### [facility] [address] [place] [address] [phone] Slip Tender: Genaro Angel MD Triglyceride [Mass/Vol] 319 mg/dL High <150 [facility] Comment on above: Result Comment: Triglyceride Guidelines: <150 Desirable 150-199 Borderline 200-499 High >499 Very high Based on AHA Guidelines for fasting triglyceride, February 2012. Performed By: #### I PF, TSHX, VD25, CBC, CP, LIPR #### [facility] [employer] [address] [place] [address] [phone] Slip Tender: Genaro Angel MD No Panel Informationon 07-24 Interpretation and review of laboratory results Abnormal [employer] [facility] PLT, Immature Fract.on 07-24 Platelet, Fluoresc. 158 k/uL Normal 138-453 [facility] Comment on above: Result Comment: ORDE RED BY LAB Performed By: #### I PF, TSHX, VD25, CBC, CP, LIPR #### [facility] [employer] [address] [place], [place] [phone] Slip Tender: Genaro Angel MD PLT, Immature Fract. 4.5 % Normal 1.1-10.[address] [facility] Comment on above: Result Comment: ORDE RED BY LAB Performed By: #### I PF, TSHX, VD25, CBC, CP, LIPR #### [address] [phone] Slip Tender: Genaro Angel MD TSH w/reflex to FT4on 2022 Thyroid Stim. Horm. 1.50 uIU/mL Normal 0.30-5.[address] [facility] Comment on above: Performed By: #### I PF, TSHX, VD25, CBC, CP, LIPR #### [facility] [address] [place] [address] [phone] Slip Tender: Genaro Angel MD TSH with Reflexon 07-24-2022 TSH Qn 1.50 m[IU]/L [facility] Vitamin D 25 Hydroxyon 07-24 25-hydroxyvitamin D3 [Mass/Vol] 92.8 ng/mL 29.9 - PINF ng/mL [facility] Comment on above: Reference Range: Vitamin D status Range Deficiency <20 ng/mL Mild Deficiency 20-30 ng/mL Sufficiency 30-100 ng/mL Toxicity >100 ng/mL [facility] Vitamin D 25 OHon 07-24-2022 Vitamin D 25 OH 92.8 ng/mL Normal >29.9 [facility] Comment on above: Result Comment: Reference Range: Vitamin D status Range Deficiency <20 ng/mL Mild Deficiency 20-30 ng/mL Sufficiency 30-100 ng/mL Toxicity >100 ng/mL Performed By: #### I PF, TSHX, VD25, CBC, CP, LIPR #### [facility] [address], [place] [phone] Slip Tender: Genaro Angel MD Laboratory - Chemistry and C hemistry - challengeon 07-23-2022 Albumin [Mass/Vol] 4.3 g/dL (3.5-5.2 ) [facility] Comment on above: Note: Responsible Ob linux server engineer: CCEV AUTOFILE (3002) ALT [Catalytic activity/Vol] 27 U/L (5-33 ) [facility] Comment on above: Note: Responsible Ob linux server engineer: [employer] AUTOFILE (3002) Anion gap [Moles/Vol] 15 mmol/L (9-17 ) [facility] Comment on above: Note: Responsible Ob linux server engineer: [employer]CE[employer] AUTOFILE (3002) AST [Catalytic activity/Vol] 30 U/L (<32 ) [facility] Comment on above: Note: Responsible Ob linux server engineer: [employer]CE[employer] AUTOFILE (3002) Bilirubin [Mass/Vol] 0.4 mg/dL (0.3-1.2 ) [facility] Comment on above: Note: Responsible Ob linux server engineer: [employer]CE[employer] AUTOFILE (3002) Calcium [Mass/Vol] 10.9 mg/dL High (8.6-10.4 ) [facility] Comment on above: Note: Responsible Ob linux server engineer: [employer]CE[employer] AUTOFILE (3002) Chloride [Moles/Vol] 100 mmol/L (98-107 ) [facility] Comment on above: Note: Responsible Ob linux server engineer: [employer] AUTOFILE (3002) Cholesterol [Mass/Vol] 153 mg/dL (<200 ) [facility] Comment on above: Note: Cholesterol Gu idelines:<200 [id number] Borderline>240 UndesirableResponsible Observer: CCEV AUTOFILE (3002) Cholesterol.total/Cholestero l in HDL [Mass ratio] 5.3 {ratio} High (<5 ) [facility] Comment on above: Note: Responsible Ob linux server engineer: CCEV AUTOFILE (3002) CO2 [Moles/Vol] 20 mmol/L (20-31 ) [facility] Comment on above: Note: Responsible Ob linux server engineer: CCEV AUTOFILE (3002) Creatinine [Mass/Vol] 0.95 mg/dL High (0.50-0.90 ) [facility] Comment on above: Note: Responsible Ob linux server engineer: [employer]CE[employer] AUTOFILE (3002) GFR/1.73 sq M.predicted dina g non-blacks MDRD (S/P/Bld) [Vol rate/Area] mL/min/{1.73_m2} (>60 ) [facility] Comment on above: Note: These results are [...] Glucose [Mass/Vol] 259 mg/dL High (70-99 ) [facility] Comment on above: Note: Responsible Ob linux server engineer: CCEV AUTOFILE (3002) Magnesium [Mass/Vol] 29 mg/dL Low (>40 ) [facility] Comment on above: Note: HDL Guidelines :<40 [id number] Borderline>59 DesirableResponsible Observer: CCEV AUTOFILE (3002) Magnesium [Mass/Vol] 60 mg/dL (0-130 ) [facility] Comment on above: Note: LDL Guidelines :<100 [id number] Near to/above [id number] Borderline>159 UndesirableDirect (measured) LDL and calculated LDL are not interchangeable tests.Responsible Observer: CCEV AUTOFILE (3002) Potassium [Moles/Vol] 4.7 mmol/L (3.7-5.3 ) [facility] Comment on above: Note: Responsible Ob linux server engineer: [employer]CEV AUTOFILE (3002) Protein [Mass/Vol] 7.6 g/dL (6.4-8.3 ) [facility] Comment on above: Note: Responsible Ob linux server engineer: CCEV AUTOFILE (3002) Sodium [Moles/Vol] 135 mmol/L (135-144 ) [facility] Comment on above: Note: Responsible Ob linux server engineer: CCEV AUTOFILE (3002) Triglyceride [Mass/Vol] 319 mg/dL High (<150 ) [facility] Comment on above: Note: Triglyceride G uidelines:<150 [id number] [id number] High>499 Very highBased on AHA Guidelines for fasting triglyceride, February 2012.Responsible Observer: CCEV AUTOFILE (3002) Urea nitrogen [Mass/Vol] 33 mg/dL High (8-23 ) [facility] Comment on above: Note: Responsible Ob linux server engineer: CCEV AUTOFILE (3002) Laboratory - Hematology and Cell countson 07-23-2022 Erythrocyte distribution wid th (RBC) [Ratio] 14.1 % (11.8-14.4 ) [facility] Comment on above: Note: Responsible Ob linux server engineer: JC UP (1219) Hematocrit (Bld) [Volume fraction] 43.9 % (36.3-47.1 ) [facility] Comment on above: Note: Responsible Ob linux server engineer: JC UP (1219) Hemoglobin (Bld) [Mass/Vol] 14.3 g/dL (11.9-15 .1 ) [facility] Comment on above: Note: Responsible Ob linux server engineer: JC UP (1219) MCH (RBC) [Entitic mass] 30.5 pg (25.2-33.5 ) [facility] Comment on above: Note: Responsible Ob linux server engineer: JC UP (1219) MCHC (RBC) [Mass/Vol] 32.6 g/dL (28.4-34.8 ) [facility] Comment on above: Note: Responsible Ob linux server engineer: JC UP (121) MCV (RBC) [Entitic vol] 93.6 fL (82.6-102.9 ) [facility] Comment on above: Note: Responsible Ob linux server engineer: JC UP (1218) RBC (Bld) [#/Vol] 4.69 10*6/uL (3.95-5.11 ) [facility] Comment on above: Note: Responsible Ob linux server engineer: JC UP (1218) WBC (Bld) [#/Vol] 8.4 10*3/uL (3.5-11.3 ) [facility] Comment on above: Note: Responsible Ob linux server engineer: JC UP (1218) No Panel Informationon 07-23 Albumin/Glob Ratio 1.3 (1.0-2.5 ) [facility] Comment on above: Note: Responsible Ob linux server engineer: CCEV AUTOFILE (3002) Alkaline Phos 116 U/L High (35-104 ) [facility] Comment on above: Note: Responsible Ob linux server engineer: CCEV AUTOFILE (3002) NRBC Automated 0.0 per_100_WBC (0.0 ) [facility] Comment on above: Note: Responsible Ob linux server engineer: JC UP (1218) Platelet Count See Reflexed IPF Result k/uL (13 8-453 ) [facility] Comment on above: Note: Responsible Ob linux server engineer: JC UP (1218) Platelet, Fluoresc. 158 k/uL (138-453 ) [facility] Comment on above: Note: ORDERED BY LAB Responsible Observer: JC UP (1218) PLT, Immature Fract. 4.5 % (1.1-10.3 ) [facility] Comment on above: Note: ORDERED BY LAB Responsible Observer: JC UP (1218) Reported Physicians See Note [facility] Comment on above: Note: Reported Physi cians:Ordering: Sparks, Latia OMARAttending: Sparks, NadiraReferring: Latia Sparks Thyroid Stim. Horm. 1.50 uIU/mL (0.30-5.00 ) [facility] Comment on above: Note: Responsible Ob linux server engineer: EV AUTOFILE (3002) Vitamin D 25 [place] 92.8 ng/mL (>29.9 ) [facility] Comment on above: Note: Reference Rang e:Vitamin D status RangeDeficiency <20 ng/mLMild Deficiency 20-30 ng/mLSufficiency 30-100 ng/mLToxicity >100 ng/mLResponsible Observer: CEEV AUTOFILE (3003) MICROALB CREAT RATIO RANDOMo n 07-19-2022 mALB 43.8 mg/L Critically high <=30.0 [facility] Comment on above: Performed By: #### M CRR #### [facility] [address] [address] [address] Shashi Jimenez MALB CR RATIO 326.8 mg/g Critically high 0.0-29.9 [facility] Comment on above: Performed By: #### M CRR #### [facility] [address] [address] [address] Shashi Jimenez MALB CR RATIO RANGE SEE BELOW Normal [facility] Comment on above: Result Comment: NO M ICROALBUMINURIA 0-29 MG/G CLINICAL MICROALBUMINURIA 30-300 MG/G MACROALBUMINURIA >300 MG/G Performed By: #### M CRR #### [facility] [address] [address] [address] Shashi Jimenez URINE CREAT 134.02 mg/dL Normal 20.00-300.00 [facility] Comment on above: Performed By: #### M CRR #### [facility] [address] [address] [address] Shashi Jimenez PROF 14(COMP METB)on 023 Albumin [Mass/Vol] 3.8 g/dL Normal 3.4-5.0 [facility] Comment on above: Performed By: #### C MP #### [facility] [address] [address] [address] Shashi Jimenez Albumin/Globulin [Mass ratio] 1.0 {ratio} Normal [facility] Comment on above: Performed By: #### C MP #### [facility] [address] [place] [address] Dr. Shashi Jimenez ALP [Catalytic activity/Vol] 83 U/L Normal 46-116 [facility] Comment on above: Performed By: #### C MP #### [facility] [address] [place] [address] Dr. Shashi Jimenez ALT [Catalytic activity/Vol] 42 U/L Normal 14-59 [facility] Comment on above: Performed By: #### C MP #### [facility] [address] [place] [address] Dr. Shashi Jimenez Anion gap [Moles/Vol] 14.0 mmol/L Normal [facility] Comment on above: Performed By: #### C MP #### [facility] [address] [place] [address] Dr. Shashi Jimenez AST [Catalytic activity/Vol] 42 U/L Critically high 15 -37 [facility] Comment on above: Performed By: #### C MP #### [facility] [address] [place] [address] Dr. Shashi Jimenez Bilirubin [Mass/Vol] 0.4 mg/dL Normal 0.2-1.0 [facility] Comment on above: Performed By: #### C MP #### [facility] [address] [place] [address] Dr. Shashi Jimenez Calcium [Mass/Vol] 10.8 mg/dL Critically high 8.5-10.1 [facility] Comment on above: Performed By: #### C MP #### [facility] [address] [place] [address] Dr. Shashi Jimenez Chloride [Moles/Vol] 99 mmol/L Normal 98-107 [facility] Comment on above: Performed By: #### C MP #### [facility] [address] [place] [address] Dr. Shashi Jimenez CO2 [Moles/Vol] 27.0 mmol/L Normal 21.0-32.0 [facility] Comment on above: Performed By: #### C MP #### [facility] [address] [address] [address] Shashi Jimenez Creatinine [Mass/Vol] 0.92 mg/dL Normal 0.55-1.02 [facility] Comment on above: Performed By: #### C MP #### [facility] [address] [address] [address] Shashi Jimenez EGFR-AF EMIRATI >60 Normal >=60 [facility] Comment on above: Performed By: #### C MP #### [facility] [address] [address] [address] Shashi Jimenez EGFR-NON AF EMIRATI =60 Normal >=60 [facility] Comment on above: Performed By: #### C MP #### [facility] [address] [place] [address] Dr. Shashi Jimenez Globulin (S) [Mass/Vol] 3.9 g/dL Normal [facility] Comment on above: Performed By: #### C MP #### [facility] [address] [address] [address] Shashi Jimenez Glucose [Mass/Vol] 300 mg/dL Critically high 74-106 [facility] Comment on above: Performed By: #### C MP #### [facility] [address] [address] [address] Shashi Jimenez Potassium [Moles/Vol] 4.0 mmol/L Normal 3.5-5.1 [facility] Comment on above: Performed By: #### C MP #### [facility] [address] [address] [address] Shashi Jimenez Protein [Mass/Vol] 7.7 g/dL Normal 6.4-8.2 [facility] Comment on above: Performed By: #### C MP #### [facility] [address] [address] [address] Shashi Jimenez Sodium [Moles/Vol] 136 mmol/L Normal 136-145 [facility] Comment on above: Performed By: #### C MP #### [facility] [address] [address] [address] Shashi Jimenez Urea nitrogen [Mass/Vol] 20.0 mg/dL Critically high 7.0-18 .0 [facility] Comment on above: Performed By: #### C MP #### [facility] [address] [address] [address] Shashi Jimenez Urea nitrogen/Creatinine [Mass ratio] 21.7 mg/mg Normal [facility] Comment on above: Performed By: #### C MP #### [facility] [address] [address] [address] Shashi Jimenez XR ankle LT min 3V*on 2021 XR ankle LT min 3V* [facility] [place] [address] XRay Report Signed Patient: Tunde Jack MR#: [id number] : 1950 Acct:[id number] Age/Sex: 71 / F ADM Date: 09/21/21 [facility] Attending Dr: Constantine Hernandez MD Ordering Provider: [...] 09/21/21 1308 Signed By: 09/21/21 1346 Normal [facility] XR ankle LT min 3V* [facility] [employer] Other XR ankle LT min 3V* [facility] [employer] Other XR ankle LT min 3V* 1111 [facility] [employer] Other XR ankle LT min 3V* [place] [address] [facility] [employer] Other XR ankle LT min 3V* XRay Report [facility] [employer] Other XR ankle LT min 3V* Signed [facility] [employer] Other XR ankle LT min 3V* Patient: Sarika Jack rla R MR#: [id number] [facility] [employer] Other XR ankle LT min 3V* 3475 [facility] [employer] Other XR ankle LT min 3V* : 1950 Acct:[id number] [facility] [employer] Other XR ankle LT min 3V* Age/Sex: 71 / F ADM Date: 09/21/21 [facility] [employer] Other XR ankle LT min 3V* Loc: XDUCLY Room: [facility] [employer] Other XR ankle LT min 3V* Attending Dr: Thomas Hernandez MD [facility] [employer] Other XR ankle LT min 3V* Ordering Provider: Kathryn Hernandez APRN [facility] [employer] Other XR ankle LT min 3V* Date of Service: 09/21/21 [employer] Other XR ankle LT min 3V* 08909) XR/XR ankle LT min 3V*: [id number] [employer] Other XR ankle LT min 3V* Copies to: Isidra kwon APRN [place] [employer] Other XR ankle LT min 3V* Constantine Hernandez MD [place] [employer] Other XR ankle LT min 3V* XR ankle LT min 3V* 09/21/2021 12:53 PM [employer] Other XR ankle LT min 3V* SIGNS AND SYMPTOMS: Twisting injury to left ankle with pain laterally [employer] Other XR ankle LT min 3V* PROTOCOL: Frontal, l ateral, and oblique radiographs of the left ankle [place] [employer] Other XR ankle LT min 3V* COMPARISON: None [employer] Other XR ankle LT min 3V* FINDINGS: [employer] Other XR ankle LT min 3V* The bones are in kari tomic alignment. There is no evidence of acute displaced fracture. There is [employer] Other XR ankle LT min 3V* soft tissue swelling which is greatest over the lateral malleolus. The ankle mortise is preserved. [employer] Other XR ankle LT min 3V* Calcifications are n oted along the Achilles tendon suspicious for a previous Achilles injury. [employer] Other XR ankle LT min 3V* X R/XR ankle LT min 3V* [employer] Other XR ankle LT min 3V* IMPRESSION: [place] [employer] Other XR ankle LT min 3V* No acute displaced fracture. [employer] Other XR ankle LT min 3V* Diffuse soft tissue swelling greatest over the lateral malleolus. [place] [employer] Other XR ankle LT min 3V* Calcifications are n oted along the Achilles tendon suspicious for a previous Achilles injury versus [employer] Other XR ankle LT min 3V* calcific tendinosis. [employer] Other XR ankle LT min 3V* Impression dictated by: Desiree Garrett M.D.09/21/2021 1:10 PM [employer] Other XR ankle LT min 3V* Dictation Location: [address] [employer] Other XR ankle LT min 3V* Transcribed By: MELODY 09/21/21 1310 [employer] Other XR ankle LT min 3V* [employer] By: Desiree Garrett II, MD 09/21/21 1308 [place] Other XR ankle LT min 3V* Signed By: 09/21/21 1346 [employer] Other ED PROV NOTEon 02-27-2019 ED PROV NOTE HNO ID: [id number] Author: Nargis Raman Service: ? Author Type: Physician Type: ED Provider Notes Filed: 03/01/2019 1:58 AM Note Text: [place] [address] [facility] EMERGENCY DEPARTMENT REPORT Patient: TUNDE JACK DANISHA,NARGIS Simon D.O. [id number] [age] F Status: DEP ER ED [...] By: NARGIS RAMAN D.O. Tests performed at: [address] [address] Normal [facility] EMERGENCY DEPARTMENT REPORTo n 02-27-2019 EMERGENCY [place] [address] HEALTH INFORMATION MANAGEMENT EMERGENCY DEPARTMENT REPORT Patient: TUNDE JACK NARGIS RAMAN D.O. [id number] [age] F Status: DEP ER ED [...] By: NARGIS RAMAN D.O. Tests performed at: [place] [address] Normal [facility] LUMBAR LIMITED 2Von 02-28-20 19 LUMBAR LIMITED 2V [place] [address] Name: TUNDE JACK Phys: NARGIS RAMAN D.O. : 54 Age: 68 Sex: F Acct: [id number] Loc: ED Exam Date: 02/27/19 Status: REG ER Radiology No.: [id number] Unit Number: [id number] Exam # Type/Exam [id number] RAD / LUMBAR LIMITED 2V EXAM DESCRIPTION: [...] By: LEAH KIRKPATRICK M.D. Tests performed at: [place] [address] [facility] ED PROV NOTEon 01-23-2019 ED PROV NOTE HNO ID: [id number] Author: Desiree May Service: ? Author Type: Physician Type: ED Provider Notes Filed: 01/28/2019 2:46 PM Note Text: [place] [address] HEALTH INFORMATION MANAGEMENT EMERGENCY DEPARTMENT REPORT Patient: TUNDE JACK LORIDESIREE Henry M.D. [id number] [age] F Status: [facility] ER ED Date of Service: 01/22/19 [...] HISTORY Patient is . She is a xbwk-ttei-v-day smoker. PAST SURGICAL HISTORY Appendectomy, cholecystectomy, hysterectomy. [...] By: DESIREE MAY M.D. Tests performed at: [address] [address] Normal [facility] EMERGENCY DEPARTMENT REPORTo n 01-23-2019 EMERGENCY [place] [address] HEALTH INFORMATION MANAGEMENT EMERGENCY DEPARTMENT REPORT Patient: TUNDE JACK DESIREE MAY M.D. [id number] [age] F Status: DEP ER ED [...] HISTORY Patient is . She is a lhfr-yzwm-j-day smoker. PAST SURGICAL HISTORY Appendectomy, cholecystectomy, hysterectomy. [...] By: DESIREE MAY M.D. Tests performed at: [address] [address] Normal [facility] ABDOMEN MULTIPLE VIEWSon ABDOMEN MULTIPLE VIEWS [address] [address] Name: TUNDE JACK Erika Phys: DESIREE MAY M.D. : 54 Age: 68 Sex: F Acct: [id number] Loc: ED Exam Date: 01/22/19 Status: REG ER Radiology No.: [id number] Unit Number: [id number] Exam # Type/Exam [id number] RAD / ABDOMEN MULTIPLE VIEWS XR ABDOMEN [...] By: HUA PLATA M.D. Tests performed at: [address] [address] Normal [facility] BMPon 01-22-2019 Anion gap [Moles/Vol] 16.0 mmol/L Normal 15-22 [facility] Comment on above: Performed By: #### L 100.0350, L100.0030, L100.0010 #### [facility] [address] [place] [address] Calcium [Mass/Vol] 10.5 mg/dL High 8.8-10.2 [facility] Comment on above: Performed By: #### L 100.0350, L100.0030, L100.0010 #### [facility] [address] [place] [address] 51759 Chloride [Moles/Vol] 99 mmol/L Normal 98-107 [facility] Comment on above: Performed By: #### L 100.0350, L100.0030, L100.0010 #### [facility] [address] [place] [address] 82098 CO2 [Moles/Vol] 26 mmol/L Normal 22-29 [facility] Comment on above: Performed By: #### L 100.0350, L100.0030, L100.0010 #### [facility] [address] [place] [address] 14715 Creatinine [Mass/Vol] 0.90 mg/dL Normal 0.50-0.90 [facility] Comment on above: Performed By: #### L 100.0350, L100.0030, L100.0010 #### - LAB[facility]AT[facility] [address] [place] [address] 97903 eGFR if AFR MARICEL > 60 ml/min/1.73m2 Normal [facility] Comment on above: Result Comment: eGFR >= [...] By: #### L 100.0350, L100.0030, L100.0010 #### [facility] [address] [place] [address] 14109 eGFR nonAFR Maricel > 60 ml/Min/1.73m2 Normal [facility] Comment on above: Performed By: #### L 100.0350, L100.0030, L100.0010 #### [facility] [address] [place] [address] 39101 Glucose [Mass/Vol] 212 mg/dL High 82-115 [facility] Comment on above: Performed By: #### L 100.0350, L100.0030, L100.0010 #### [facility] [address] [place] [address] 45958 Potassium [Moles/Vol] 4.0 mmol/L Normal 3.5-5.0 [facility] Comment on above: Performed By: #### L 100.0350, L100.0030, L100.0010 #### [facility] [address] [place] [address] 85607 Sodium [Moles/Vol] 137 mmol/L Normal 135-145 [facility] Comment on above: Performed By: #### L 100.0350, L100.0030, L100.0010 #### [facility] [address] [place] [address] 81239 Urea nitrogen [Mass/Vol] 24 mg/dL High 8-23 [facility] Comment on above: Performed By: #### L 100.0350, L100.0030, L100.0010 #### [facility] [address] [place] [address] CBCon 01-22-2019 Basophils (Bld) [#/Vol] 0.00 x10(3) Normal 0.00-0.10 [facility] Comment on above: Performed By: #### L 200.0010 #### [facility] [address] [place] [address] 05343 Basophils/100 WBC (Bld) 0.3 % Normal 0.0-1.0 [facility] Comment on above: Performed By: #### L 200.0010 #### [facility] [address] [place] [address] 36452 Eosinophils (Bld) [#/Vol] 0.20 x10(3) Normal 0.00-0.54 [facility] Comment on above: Performed By: #### L 200.0010 #### [facility] [address] [place] [address]60 Eosinophils/100 WBC (Bld) 3.0 % Normal 0.5-4.9 [facility] Comment on above: Performed By: #### L 200.0010 #### [facility] [address] [place] [address] Erythrocyte distribution wid th (RBC) [Ratio] 13.7 % Normal 12.5-15.7 [facility] Comment on above: Performed By: #### L 200.0010 #### [facility] [address] [place] [address] Hematocrit (Bld) [Volume fraction] 45.9 % Normal 3 6.0-48.0 [facility] Comment on above: Performed By: #### L 200.0010 #### [facility] [address] [place] [address] 99751 Hemoglobin (Bld) [Mass/Vol] 15.5 g/dL Normal 12.0-16. 0 [facility] Comment on above: Performed By: #### L 200.0010 #### [facility] [address] [place] [address] 34207 Lymphocytes (Bld) [#/Vol] 1.70 x10(3) Normal 1.00-3.50 [facility] Comment on above: Performed By: #### L 200.0010 #### [facility] [address] [place] [address] 32591 Lymphocytes/100 WBC (Bld) 22.1 % Normal 16.0-48.0 [facility] Comment on above: Performed By: #### L 200.0010 #### [facility] [address] [place] [address] 07818 MCH (RBC) [Entitic mass] 30.9 pg Normal 28.5-32.9 [facility] Comment on above: Performed By: #### L 200.0010 #### [facility] [address] [place] [address] 89284 MCHC (RBC) [Mass/Vol] 33.8 g/dL Normal 33.0-36.0 [facility] Comment on above: Performed By: #### L 200.0010 #### ML [facility] [address] [place] [address] 29518 MCV (RBC) [Entitic vol] 91.3 fL Normal 80.0-99.0 [facility] Comment on above: Performed By: #### L 200.0010 #### [facility] [address] [place] [address] 39395 Monocytes (Bld) [#/Vol] 0.60 x10(3) Normal 0.30-0.80 [facility] Comment on above: Performed By: #### L 200.0010 #### [facility] [address] [place] [address] 15900 Monocytes/100 WBC (Bld) 8.3 % Normal 4.3-11.2 [facility] Comment on above: Performed By: #### L 200.0010 #### [facility] [address] [place] [address] 03469 Neutrophils (Bld) [#/Vol] 5.10 x10(3) Normal 1.40-6.50 [facility] Comment on above: Performed By: #### L 200.0010 #### [facility] [address] [place] [address] 08106 Neutrophils/100 WBC (Bld) 66.3 % Normal 45.0-73.0 [facility] Comment on above: Performed By: #### L 200.0010 #### [facility] [address] [place] [address] 79831 Platelet mean volume (Bld) [ Entitic vol] 8.2 fL Normal 7.5-9.5 [facility] Comment on above: Performed By: #### L 200.0010 #### [facility] [address] [place] [address] 91642 Platelets (Bld) [#/Vol] 124 X10(3) Low 150-450 [facility] Comment on above: Performed By: #### L 200.0010 #### [facility] [address] [place] [address] 78704 RBC (Bld) [#/Vol] 5.02 x10(6) High 3.30-5.00 [facility] Comment on above: Performed By: #### L 200.0010 #### [facility] [address] [place] [address] 95659 WBC (Bld) [#/Vol] 7.7 x10(3) Normal 4.5-10.0 [facility] Comment on above: Performed By: #### L 200.0010 #### [facility] [address] [place] [address] ABD/PEL W CONTRASTon CT ABD/PEL W CONTRAST [address] [address] Name: MICKEYTUNDE R Phys: DESIREE MAY M.D. : [birth year] Age: 68 Sex: F Acct: [id number] Loc: ED Exam Date: 01/22/19 Status: REG Radiology No.: [id number] Unit Number: [id number] Exam # Type/Exam [id number] CT / CT ABD/PEL W CONTRAST CT [...] By: CHI CASTANEDA D.O. Tests performed at: [address] [address] Normal [facility] HEPATIC PANELon 01-22-2019 A:G RATIO 1.32 Normal 1.1-2.5 [facility] Comment on above: Performed By: #### L 100.0350, L100.0030, L100.0010 #### [facility] [address] [place] [address] 86371 Albumin [Mass/Vol] 4.1 g/dL Normal 3.5-5.2 [facility] Comment on above: Performed By: #### L 100.0350, L100.0030, L100.0010 #### [facility] [address] [place] [address] 24069 ALK. PHOS 79 U/L Normal 35-105 [facility] Comment on above: Performed By: #### L 100.0350, L100.0030, L100.0010 #### [facility] [address] [place] [address] 33471 ALT [Catalytic activity/Vol] 23 U/L Normal 5-33 [facility] Comment on above: Performed By: #### L 100.0350, L100.0030, L100.0010 #### [facility] [address] [place] [address] 14160 AST [Catalytic activity/Vol] 23 U/L Normal 5-32 [facility] Comment on above: Performed By: #### L 100.0350, L100.0030, L100.0010 #### [facility] [address] [place] [address] 82029 Bilirubin Ql (U) 0.3 mg/dL Normal 0.2-1.2 [facility] Comment on above: Performed By: #### L 100.0350, L100.0030, L100.0010 #### [facility] [address] [place] [address] 99788 DIRECT BILIRUBI <0.2 Normal 0.0-0.3 [facility] Comment on above: Performed By: #### L 100.0350, L100.0030, L100.0010 #### [facility] [address] [place] [address] 96721 Globulin (S) [Mass/Vol] 3.1 g/dL Normal 1.5-4.5 [facility] Comment on above: Performed By: #### L 100.0350, L100.0030, L100.0010 #### [facility] [address] [place] [address] 24299 Protein [Mass/Vol] 7.2 g/dL Normal 6.4-8.3 [facility] Comment on above: Performed By: #### L 100.0350, L100.0030, L100.0010 #### [facility] [address] [place] [address] 07478 LIPASEon 01-22-2019 Lipase [Catalytic activity/Vol] 44 U/L Normal 13-6 0 [facility] Comment on above: Performed By: #### L 100.0350, L100.0030, L100.0010 #### [facility] [address] [place] [address] 70643 URINALYSISon 01-22-2019 Bilirubin Ql (U) Negative Normal NEGATIVE [facility] Comment on above: Order Comment: Urine Specimen Source+ CLEAN CATCH Performed By: #### L 200.3000 #### ML [facility] [address] [place] [address] 16736 Color (U) YELLOW Normal YELLOW [facility] Comment on above: Order Comment: Urine Specimen Source+ CLEAN CATCH Performed By: #### L 200.3000 #### ML [facility] [address] [place] [address] 92729 Glucose Ql (U) >=1000 Normal NEGATIVE [facility] Comment on above: Order Comment: Urine Specimen Source+ CLEAN CATCH Performed By: #### L 200.3000 #### [facility] [address] [place] [address] 87480 Hemoglobin Ql (U) TRACE-INTACT Normal NEGATIVE [facility] Comment on above: Order Comment: Urine Specimen Source+ CLEAN CATCH Performed By: #### L 200.3000 #### [facility] [address] [place] [address] 43818 Leukocyte esterase Test stri p Ql (U) Negative Normal NEGATIVE [facility] Comment on above: Order Comment: Urine Specimen Source+ CLEAN CATCH Performed By: #### L 200.3000 #### [facility] [address] [place] [address] 98956 Nitrite Ql (U) Negative Normal NEGATIVE [facility] Comment on above: Order Comment: Urine Specimen Source+ CLEAN CATCH Performed By: #### L 200.3000 #### [facility] [address] [place] [address] 95128 pH (U) 5.5 [pH] Normal 5.0-8.0 [facility] Comment on above: Order Comment: Urine Specimen Source+ CLEAN CATCH Performed By: #### L 200.3000 #### [facility] [address] [place] [address] 53810 Protein Ql (U) Negative Normal NEGATIVE [facility] Comment on above: Order Comment: Urine Specimen Source+ CLEAN CATCH Performed By: #### L 200.3000 #### [facility] [address] [place] [address] 39427 URINE APPEARANC CLEAR Normal CLEAR [facility] Comment on above: Order Comment: Urine Specimen Source+ CLEAN CATCH Performed By: #### L 200.3000 #### [facility] [address] [place] [address] 77252 URINE KETONE Negative Normal NEGATIVE [facility] Comment on above: Order Comment: Urine Specimen Source+ CLEAN CATCH Performed By: #### L 200.3000 #### [facility] [address] [place] [address] 75093 URINE SPECIFIC <=1.005 Normal 1.001-1.035 [facility] Comment on above: Order Comment: Urine Specimen Source+ CLEAN CATCH Performed By: #### L 200.3000 #### [facility] [address] [place] [address] 01951 URINE UROBILINO 0.2 EU/DL Normal 0.2-1.0 [facility] Comment on above: Order Comment: Urine Specimen Source+ CLEAN CATCH Performed By: #### L 200.3000 #### [facility] [address] [place] [address] 86935 [id number] 01-15-2019 HbA1c (Bld) [Mass fraction] 7.2 % High 4.3-6.1 [facility] Comment on above: Result Comment: Estimated Average Glucose: HgbA1C % mg/dL 4.0 68 5.0 97 6.0 125 7.0 154 8.0 183 9.0 212 10.0 240 Source: [employer] web site, 2017. Performed By: #### L 200.2000 #### [facility] [address] [place] [address] 63759 LIPID PANELon 01-15-2019 Cholesterol [Mass/Vol] 158 mg/dL Normal 130-200 [facility] Comment on above: Order Comment: ADD O N Performed By: #### L 100.0040 #### [facility] [address] [place] [address] 35798 Cholesterol in HDL [Mass/Vol] 30 mg/dL [facility] Comment on above: Order Comment: ADD O [...] #### L 100.0040 #### [facility] [address] [place] [address] 77853 Cholesterol in LDL [Mass/Vol] 55 mg/dL [facility] Comment on above: Order Comment: ADD O N Result Comment: LDL: OPTIMAL FOR PEOPLE AT VERY HIGH RISK <70 OPTIMAL <100 NEAR OPTIMAL 100-129 BORDERLINE HIGH 130-159 HIGH 160-189 VERY HIGH >=190 Source: 2009 NCEP ATP III, ADA Guidelines Reviewed: August, Performed By: #### L 100.0040 #### [facility] [address] [place] [address] 81281 Cholesterol in LDL/Cholester ol in HDL [Mass ratio] 1.8 [facility] Comment on above: Order Comment: ADD O N Performed By: #### L 100.0040 #### [facility] [address] [place] [address] 53262 Cholesterol in VLDL [Mass/Vol] 73 mg/dL High 6-40 [facility] Comment on above: Order Comment: ADD O N Performed By: #### L 100.0040 #### [facility] [address] [place] [address] 31548 Triglyceride [Mass/Vol] 365 mg/dL Normal [facility] Comment on above: Order Comment: ADD O N Result Comment: TRIG : DESIRABLE: <150 mg/dL Performed By: #### L 100.0040 #### [facility] [address] [place] [address] 46627 Hoda 01-14-2019 ALT [Catalytic activity/Vol] 29 U/L Normal -33 [facility] Comment on above: Performed By: #### L 100.0010, L100.0240, L100.0250 #### [facility] [address] [place] [address] 80725 [facility] 01-14-2019 AST [Catalytic activity/Vol] 30 U/L Normal -32 [facility] Comment on above: Performed By: #### L 100.0010, L100.0240, L100.0250 #### [facility] [address] [place] [address] 26303 BMPon 01-14-2019 Anion gap [Moles/Vol] 16.6 mmol/L Normal 15-22 [facility] Comment on above: Performed By: #### L 100.0010, L100.0240, L100.0250 #### [facility] [address] [place] [address] 79778 Calcium [Mass/Vol] 10.3 mg/dL High 8.8-10.2 [facility] Comment on above: Performed By: #### L 100.0010, L100.0240, L100.0250 #### [facility] [address] [place] [address] 01498 Chloride [Moles/Vol] 98 mmol/L Normal 98-107 [facility] Comment on above: Performed By: #### L 100.0010, L100.0240, L100.0250 #### [facility] [address] [place] [address] CO2 [Moles/Vol] 28 mmol/L Normal 22-29 [facility] Comment on above: Performed By: #### L 100.0010, L100.0240, L100.0250 #### [facility] [address] [place] [address] 23694 Creatinine [Mass/Vol] 0.74 mg/dL Normal 0.50-0.90 [facility] Comment on above: Performed By: #### L 100.0010, L100.0240, L100.0250 #### [facility] [address] [place] [address] 61825 eGFR if AFR MARICEL > 60 ml/min/1.73m2 Normal [facility] Comment on above: Result Comment: eGFR >= [...] L100.0240, L100.0250 #### [facility] [address] [place] [address] eGFR nonAFR Maricel > 60 ml/Min/1.73m2 Normal [facility] Comment on above: Performed By: #### L 100.0010, L100.0240, L100.0250 #### [facility] [address] [place] [address] 21083 Glucose [Mass/Vol] 208 mg/dL High 82-115 [facility] Comment on above: Performed By: #### L 100.0010, L100.0240, L100.0250 #### [facility] [address] [place] [address] 52293 Potassium [Moles/Vol] 4.6 mmol/L Normal 3.5-5.0 [facility] Comment on above: Performed By: #### L 100.0010, L100.0240, L100.0250 #### [facility] [address] [place] [address] 51031 Sodium [Moles/Vol] 138 mmol/L Normal 135-145 [facility] Comment on above: Performed By: #### L 100.0010, L100.0240, L100.0250 #### [facility] [address] [place] [address] 29193 Urea nitrogen [Mass/Vol] 16 mg/dL Normal 8-23 [facility] Comment on above: Performed By: #### L 100.0010, L100.0240, L100.0250 #### [facility] [address] [place] [address] 91869 [facility] 11-12-2018 Anion gap [Moles/Vol] 19.0 mmol/L Normal 15-22 [facility] Comment on above: Performed By: #### L 100.0010 #### [facility] [address] [place] [address] 85245 Calcium [Mass/Vol] 10.0 mg/dL Normal 8.8-10.2 [facility] Comment on above: Performed By: #### L 100.0010 #### [facility] [address] [place] [address] 87582 Chloride [Moles/Vol] 97 mmol/L Low 98-107 [facility] Comment on above: Performed By: #### L 100.0010 #### [facility] [address] [place] [address] 00388 CO2 [Moles/Vol] 26 mmol/L Normal 22-29 [facility] Comment on above: Performed By: #### L 100.0010 #### [facility] [address] [place] [address] 98314 Creatinine [Mass/Vol] 0.98 mg/dL High 0.50-0.90 [facility] Comment on above: Performed By: #### L 100.0010 #### [facility] [address] [place] [address] 42643 eGFR if AFR MARICEL > 60 ml/min/1.73m2 Normal [facility] Comment on above: Result Comment: eGFR >= [...] Performed By: #### L 100.0010 #### [facility] [address] [place] [address] 43036 eGFR nonAFR Maricel 57 Normal [facility] Comment on above: Performed By: #### L 100.0010 #### [facility] [address] [place] [address] 29465 Glucose [Mass/Vol] 171 mg/dL High 82-115 [facility] Comment on above: Performed By: #### L 100.0010 #### [facility] [address] [place] [address] 46069 Potassium [Moles/Vol] 4.0 mmol/L Normal 3.5-5.0 [facility] Comment on above: Performed By: #### L 100.0010 #### [facility] [address] [place] [address] 90387 Sodium [Moles/Vol] 138 mmol/L Normal 135-145 [facility] Comment on above: Performed By: #### L 100.0010 #### [facility] [address] [place] [address] 96204 Urea nitrogen [Mass/Vol] 22 mg/dL Normal 8-23 [facility] Comment on above: Performed By: #### L 100.0010 #### [facility] [address] [place] [address] 06496 PTHon 11-12-2018 PTH 26.5 pg/mL Normal 15-65 [facility] Comment on above: Performed By: #### L 304.0135 #### [facility] [address] [place] [address] 95568 BMPon 10-16-2018 Anion gap [Moles/Vol] 20.3 mmol/L Normal 15-22 [facility] Comment on above: Performed By: #### L 100.0010, L304.0470 #### [facility] [address] [place] [address] 77300 Calcium [Mass/Vol] 10.9 mg/dL High 8.8-10.2 [facility] Comment on above: Performed By: #### L 100.0010, L304.0470 #### [facility] [address] [place] [address] 89351 Chloride [Moles/Vol] 100 mmol/L Normal 98-107 [facility] Comment on above: Performed By: #### L 100.0010, L304.0470 #### [facility] [address] [place] [address] 40896 CO2 [Moles/Vol] 27 mmol/L Normal 22-29 [facility] Comment on above: Performed By: #### L 100.0010, L304.0470 #### [facility] [address] [place] [address] 95753 Creatinine [Mass/Vol] 1.03 mg/dL High 0.50-0.90 [facility] Comment on above: Performed By: #### L 100.0010, L304.0470 #### ML - LABORATORY [address] [place] [id number] eGFR if AFR MARICEL > 60 ml/min/1.73m2 Normal [facility] Comment on above: Result Comment: eGFR >= [...] 100.0010, L304.0470 #### ML - LABORATORY [address] [place] [address] eGFR nonAFR Maricel 54 Normal [facility] Comment on above: Performed By: #### L 100.0010, L304.0470 #### ML - LABORATORY [address] [place] [address] Glucose [Mass/Vol] 186 mg/dL [facility] 82-115 [facility] Comment on above: Performed By: #### L 100.0010, L304.0470 #### ML - LABORATORY [address] [place] [address] Potassium [Moles/Vol] 4.3 mmol/L Normal 3.5-5.0 [facility] Comment on above: Performed By: #### L 100.0010, L304.0470 #### - LABORATORY [address] [place] [address] Sodium [Moles/Vol] 143 mmol/L Normal 135-145 [facility] Comment on above: Performed By: #### L 100.0010, L304.0470 #### ML - LABORATORY [address] [place] [address] Urea nitrogen [Mass/Vol] 28 mg/dL High 8-23 [facility] Comment on above: Performed By: #### L 100.0010, L304.0470 #### ML - LABORATORY [address] [place] [address] PTHon 10-16-2018 PTH 25.1 pg/mL Normal 15-65 [facility] Comment on above: Performed By: #### L 304.0135 #### ML - LABORATORY [address] [place] [address] VITAMIN Don 10-16-2018 VITAMIN D 48.5 ng/mL Normal 30-100 [facility] Comment on above: Performed By: #### L 100.0010, L304.0470 #### ML - LABORATORY [address] [place] [address] [employer] Cytology Reporton 2018 [facility] Cytology Report . Pathology ReportsAccession: Collected Date/Time: Received Date/Time: Pathologist:[id number] 05/21/2018 16:06 EST 05/21/2018 18:00 MD JOY FARMER [employer] Cytology ReportSPECIMEN:Specimen Description: Liquid Prep w/ HPVSpecimen: Cervical/EndocervicalScreening or Diagnostic: ScreeningRELEVANT HISTORY:LMP: not givenSPECIMEN ADEQUACY:SATISFACTORY FOR EVALUATIONENDOCERVICAL/TRANSFORMATIONAL ZONE COMPONENT PRESENTINTERPRETATION/RESULTS:NEGATIVE FOR INTRAEPITHELIAL LESION OR MALIGNANCYADJUNCTIVE TESTING:HIGH RISK HPV DNA TESTING ORDERED, REPORT TO FOLLOW UNDER SEPARATE COVERSUGGESTIONS/EDUCATIONAL NOTES:THIS CASE HAS BEEN REVIEWED FOR 10% Q.C. RESCREENElectronically Signed byPathology report verified by [facility].Screened by: KK DWElectronically signed by JOY Whalengn-Out Date: 05/27/2018 10:24Performing Lab: [facility], [address] [place], [place] [address]DisclaimerThe Pap test is a screening test for cervical cancer. As evidenced by published data, it is subject to both inherent false negative and false positive results. Your patient's results should be interpreted in context with pertinent clinical history including gynecological examination. Normal [facility] ([place]) Comment on above: Performed By: #### G YCR ####[place] [address] HPVon 05-27-2018 HPV Interp Normal See Interp HPVN [facility] ([place]) Comment on above: Order Comment: Order placed by AP_HPV_ORDER rule from [id number] Result Comment: High Risk HPV Typing: NEGATIVEHPV [...] Interp HPVN Performed By: #### H PV ####[address] [address] HPV Source Cervix Normal [facility] ([place]) Comment on above: Order Comment: Order placed by AP_HPV_ORDER rule from [id number] Performed By: #### H PV ####[address] [address] PROGRESSon 05-17-2018 PROGRESS HNO ID: [id number] Author: Provider [facility] [place] Service: (none) Author Type: Physician Type: Progress Notes Filed: 05/17/2018 12:29 PM Note Text: [facility] [place] [address] FIRST CARE REPORT Patient: TUNDE JACK FLACO,-RAIMUNDO MartinezN.PSarah [id number] F Status: REG POV FC [...] Former cigarette smoker H/O appendicitis 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 Report to the [facility] Emergency Department if any further problems occur. [...] By: SEE SAM F.N.PSarah Tests performed at: [place] [address] Normal [facility] STRP SCNon 05-17-2018 STRP SCN Performed at: [facility] [address] [place] [address] STREP SCREEN NEGATIVE - CULTURE TO FOLLOW REFERENCE RANGE NORMAL RESULT IS NEGATIVE. Normal [facility] THTon 05-17-2018 THT ORGANISM 1: NO GROUP A BETA STREP ISOLATED Norm al [facility] Comment on above: Performed By: #### M 130.0700 #### ML - LABORATORY [address] [place], [place] [address] SURGICAL PATHOLOGY, CONVERTE Don 04-21-2014 [facility] Vital Signs Date Time Vital Sign Value Performing Clinician Facility 04-18-2023 14:10-0500 Body height 162.56 cm Latia Sparks GENERAL PEDIATRICIAN Work Phone: [facility] Work Phone: 04-18-2023 14:10-0500 Body mass index (BMI) [Ratio] 35.7 kg/m2 Latia Sparks GENERAL PEDIATRICIAN Work Phone: [facility] Work Phone: 04-18-2023 14:10-0500 Body surface area Derived from formula 2 m2 Latia Sparks GENERAL PEDIATRICIAN Work Phone: [facility] Work Phone: 04-18-2023 14:10-0500 Body temperature 97.8 [degF] Latia Sparks GENERAL PEDIATRICIAN Work Phone: [facility] Work Phone: 04-18-2023 14:10-0500 Body weight 94.35 kg Latia Sparks GENERAL PEDIATRICIAN Work Phone: [facility] Work Phone: 04-18-2023 14:10-0500 Diastolic blood pressure 80 mm[Hg] Latia Sparks GENERAL PEDIATRICIAN Work Phone: [facility] Work Phone: 04-18-2023 14:10-0500 Heart rate 96 /min Latia Sparks GENERAL PEDIATRICIAN Work Phone: [facility] Work Phone: 04-18-2023 14:10-0500 Inhaled oxygen concentration 21 % Latia Sparks GENERAL PEDIATRICIAN Work Phone: [facility] Work Phone: 04-18-2023 14:10-0500 Inhaled oxygen flow rate 0 L/min Latia Sparks GENERAL PEDIATRICIAN Work Phone: [facility] Work Phone: 04-18-2023 14:10-0500 Respiratory rate 18 /min Latia Sparks GENERAL PEDIATRICIAN Work Phone: [facility] Work Phone: 04-18-2023 14:10-0500 SaO2% (BldA) [Mass fraction] 96 % Latia Sparks GENERAL PEDIATRICIAN Work Phone: [facility] Work Phone: 04-18-2023 14:10-0500 Systolic blood pressure 138 mm[Hg] Latia Sparks GENERAL PEDIATRICIAN Work Phone: [facility] Work Phone: 11-15-2022 14:24-0400 Diastolic blood pressure 82 mm[Hg] Latia Sparks GENERAL PEDIATRICIAN Work Phone: [facility] Work Phone: 11-15-2022 14:24-0400 Systolic blood pressure 142 mm[Hg] Latia Sparks GENERAL PEDIATRICIAN Work Phone: [facility] Work Phone: 11-15-2022 14:17-0400 Body height 162.56 cm Latia Sparks GENERAL PEDIATRICIAN Work Phone: [facility] Work Phone: 11-15-2022 14:17-0400 Body mass index (BMI) [Ratio] 37.4 kg/m2 Latia Sparks GENERAL PEDIATRICIAN Work Phone: [facility] Work Phone: 11-15-2022 14:17-0400 Body surface area Derived from formula 2 m2 Latia Sparks GENERAL PEDIATRICIAN Work Phone: [facility] Work Phone: 11-15-2022 14:17-0400 Body weight 98.88 kg Latia Sparks GENERAL PEDIATRICIAN Work Phone: [facility] Work Phone: 11-15-2022 14:17-0400 Diastolic blood pressure 78 mm[Hg] Latia Sparks GENERAL PEDIATRICIAN Work Phone: [facility] Work Phone: 11-15-2022 14:17-0400 Heart rate 94 /min Latia Sparks GENERAL PEDIATRICIAN Work Phone: [facility] Work Phone: 11-15-2022 14:17-0400 SaO2% (BldA) [Mass fraction] 93 % Latia Sparks GENERAL PEDIATRICIAN Work Phone: [facility] Work Phone: 11-15-2022 14:17-0400 Systolic blood pressure 143 mm[Hg] Latia Sparks GENERAL PEDIATRICIAN Work Phone: [facility] Work Phone: 08-02-2022 10:15-0400 Body height 162.56 cm Latia Sparks GENERAL PEDIATRICIAN Work Phone: [facility] Work Phone: 08-02-2022 10:15-0400 Body mass index (BMI) [Ratio] 36.7 kg/m2 Latia Sparks GENERAL PEDIATRICIAN Work Phone: [facility] Work Phone: 08-02-2022 10:15-0400 Body surface area Derived from formula 2 m2 Latia Sparks GENERAL PEDIATRICIAN Work Phone: [facility] Work Phone: 08-02-2022 10:15-0400 Body temperature 98.5 [degF] Latia Sparks GENERAL PEDIATRICIAN Work Phone: [facility] Work Phone: 08-02-2022 10:15-0400 Body weight 97.07 kg Latia Sparks GENERAL PEDIATRICIAN Work Phone: [facility] Work Phone: 08-02-2022 10:15-0400 Diastolic blood pressure 82 mm[Hg] Latia Sparks GENERAL PEDIATRICIAN Work Phone: [facility] Work Phone: 08-02-2022 10:15-0400 Heart rate 98 /min Latia Sparks GENERAL PEDIATRICIAN Work Phone: [facility] Work Phone: 08-02-2022 10:15-0400 Heart Rate Rhythm 1 1 Latia Sparks GENERAL PEDIATRICIAN Work Phone: [facility] Work Phone: 08-02-2022 10:15-0400 Inhaled oxygen concentration 21 % Latia Sparks GENERAL PEDIATRICIAN Work Phone: [facility] Work Phone: 08-02-2022 10:15-0400 Inhaled oxygen flow rate 0 L/min Latia Sparks GENERAL PEDIATRICIAN Work Phone: [facility] Work Phone: 08-02-2022 10:15-0400 Respiratory rate 18 /min Latia Sparks GENERAL PEDIATRICIAN Work Phone: [facility] Work Phone: 08-02-2022 10:15-0400 SaO2% (BldA) [Mass fraction] 96 % Latia Sparks GENERAL PEDIATRICIAN Work Phone: [facility] Work Phone: 08-02-2022 10:15-0400 Systolic blood pressure 138 mm[Hg] Latia Sparks GENERAL PEDIATRICIAN Work Phone: [facility] Work Phone: 07-23-2022 13:38-0500 Diastolic blood pressure 78 mm[Hg] Latia Sparks GENERAL PEDIATRICIAN Work Phone: [facility] Work Phone: 07-23-2022 13:38-0500 Systolic blood pressure 142 mm[Hg] Latia Sparks GENERAL PEDIATRICIAN Work Phone: [facility] Work Phone: 07-23-2022 12:13-0500 Body height 162.56 cm Latia Sparks GENERAL PEDIATRICIAN Work Phone: [facility] Work Phone: 07-23-2022 12:13-0500 Body mass index (BMI) [Ratio] 36 kg/m2 Latia Sparks GENERAL PEDIATRICIAN Work Phone: [facility] Work Phone: 07-23-2022 12:13-0500 Body surface area Derived from formula 2 m2 Latia Sparks GENERAL PEDIATRICIAN Work Phone: [facility] Work Phone: 07-23-2022 12:13-0500 Body temperature 98.3 [degF] Latia Sparks GENERAL PEDIATRICIAN Work Phone: [facility] Work Phone: 07-23-2022 12:13-0500 Body weight 95.26 kg Latia Sparks GENERAL PEDIATRICIAN Work Phone: [facility] Work Phone: 07-23-2022 12:13-0500 Diastolic blood pressure 92 mm[Hg] Latia Sparks GENERAL PEDIATRICIAN Work Phone: [facility] Work Phone: 07-23-2022 12:13-0500 Heart rate 118 /min Latia Sparks GENERAL PEDIATRICIAN Work Phone: [facility] Work Phone: 07-23-2022 12:13-0500 Heart Rate Rhythm 1 1 Latia Sparks GENERAL PEDIATRICIAN Work Phone: [facility] Work Phone: 07-23-2022 12:13-0500 Inhaled oxygen concentration 21 % Latia Sparks GENERAL PEDIATRICIAN Work Phone: [facility] Work Phone: 07-23-2022 12:13-0500 Inhaled oxygen flow rate 0 L/min Latia Sparks GENERAL PEDIATRICIAN Work Phone: [facility] Work Phone: 07-23-2022 12:13-0500 Respiratory rate 21 /min Latia Sparks GENERAL PEDIATRICIAN Work Phone: [facility] Work Phone: 07-23-2022 12:13-0500 SaO2% (BldA) [Mass fraction] 96 % Latia Sparks GENERAL PEDIATRICIAN Work Phone: [facility] Work Phone: 07-23-2022 12:13-0500 Systolic blood pressure 168 mm[Hg] Latia Sparks GENERAL PEDIATRICIAN Work Phone: [facility] Work Phone: 09-21-2021 13:25-0400 Body height 162.56 cm Isidra [employer] Other [employer] Other 09-21-2021 13:25-0400 Body mass index (BMI) [Ratio] 37.24 kg/m2 Isidra [employer] Other [employer] Other 09-21-2021 13:25-0400 Body temperature 97.9 [degF] Isidra Hernandez Other [employer] Other 09-21-2021 13:25-0400 Body weight 98.43 kg Isidra Hernandez Other [employer] Other 09-21-2021 13:25-0400 Diastolic blood pressure 68 mm[Hg] Isidra Hernandez Other [employer] Other 09-21-2021 13:25-0400 Respiratory rate 20 /min Isidra Hernandez Other [employer] Other 09-21-2021 13:25-0400 SaO2% (BldA) [Mass fraction] 96 % Isidra Hernandez Other [employer] Other 09-21-2021 13:25-0400 Systolic blood pressure 146 mm[Hg] Isidra Hernandez Other [employer] Other Encounters Encounter Date Encounter Type Care Provider Facility Start: 04-18-2023 End: 04-18-2023 [facility] visit, estab pt Janina FRIED Work Phone: [facility] Work Phone: Start: 04-18-2023 End: 04-18-2023 [facility] visit, estab pt Latia Sparks GENERAL PEDIATRICIAN Work Phone: [facility] Work Phone: Start: 11-15-2022 End: 11-15-2022 FQ[facility] visit, estab pt Latia Sparks GENERAL PEDIATRICIAN Work Phone: [facility] Work Phone: Start: 11-15-2022 End: 11-15-2022 General Latia Sparks GENERAL PEDIATRICIAN Work Phone: [facility] Work Phone: Start: 11-09-2022 End: 11-10-2022 [facility] Start: 11-08-2022 End: 11-08-2022 [facility] visit, estab pt Janina PARRISH-S Work Phone: [facility] Work Phone: Start: 11-08-2022 End: 11-08-2022 Encounter for preprocedural laboratory examination Latia Sparks GENERAL PEDIATRICIAN Work Phone: [facility] Work Phone: Start: 11-08-2022 End: 11-08-2022 Nursing evaluation of patient and report Latia Sparks GENERAL PEDIATRICIAN Work Phone: [facility] Work Phone: Start: 09-26-2022 End: 09-26-[address] DOCTOR WILSON Facility:[facility] Start: 09-25-2022 End: 09-25-2022 ambulatory NARENDRANATH LAKSHMIPATHY . Facility:[facility] Start: 08-28-2022 End: 08-29-2022 ambulatory NARENDRANATH LAKSHMIPATHY . Facility:[facility] Start: 08-14-2022 End: 08-14-2022 ambulatory NARENDRANATH LAKSHMIPATHY . 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 Work Phone: [facility] Work Phone: Start: 07-27-2022 End: 07-28-2022 ambulatory GERALDO PRADO Facility:[facility] Start: 07-23-2022 End: 07-23-2022 [facility] visit, estab pt Cinthia PARRISH Work Phone: [facility] Work Phone: Start: 07-23-2022 End: 07-23-2022 Adult health examination Latia MAYORGA Work Phone: [facility] Work Phone: Start: 07-23-2022 End: 07-23-2022 Encounter for preprocedural laboratory examination Latia MAYORGA Work Phone: [facility] Work Phone: Start: 07-23-2022 End: 07-23-2022 FQ visit new patient Latia MAYORGA Work Phone: [facility] Work Phone: Start: 07-23-2022 End: 07-24-2022 ambulatory LATIA SPARKS [facility] Start: 07-23-2022 End: 07-24-2022 Encounter for general adult medical examination without abnormal findings LATIA SPARKS [facility] Start: 07-23-2022 End: 07-23-2022 Subsequent hospital visit by physician JANINE [facility] Start: 07-19-2022 End: 07-20-[address] DOCTOR WILSON Facility:[facility] Start: 07-18-2022 End: 07-18-[address] DOCTOR WILSON Facility:[facility] Start: 07-17-2022 End: 07-18-2022 ambulatory GERALDO PRADO Facility:[facility] Start: 07-12-2022 ambulatory Latia MAYORGA [facility] Start: 09-21-2021 End: 09-21-2021 ambulatory Isidra Hernandez Other [employer] Other Start: 09-21-2021 Office outpatient ne w 20 minutes Isidra Hernandez [facility] Start: 09-21-2021 End: 09-21-2021 Patient encounter procedure MD Constantine Hernandez Work Phone: [facility] Start: 05-21-2018 End: 05-26-2018 Patient encounter procedure STIVEN ANDINO Facility:[facility] Obstetrics Start: 01-08-2018 Patient encounter Morgan Barcenas [facility] Start: 04-21-2014 Documentation procedure Aram Esquivel MD Work Phone: [facility] Start: 04-21-2014 Historic EMR Aram soto MD Work Phone: [facility] Procedures Date Procedure Procedure Detail Performing Clinician Start: 04-18-2023 Current tobacco smoker Latia Sparks FN P Work Phone: Start: 04-18-2023 FQ visit, MH estab pt Janina Christianson LI SW-S Work Phone: Start: 04-18-2023 Gluc bld gluc mntr dev cleared fda spec home use Latia Sparks GENERAL PEDIATRICIAN Work Phone: Start: 04-18-2023 Most recent diastolic blood pressure 80-89 mm hg Latia Sparks GENERAL PEDIATRICIAN Work Phone: Start: 04-18-2023 Most recent hg a1c>equal to 7.0%&<8.0% Latia Sparks GENERAL PEDIATRICIAN Work Phone: Start: 04-18-2023 Most recent systolic blood press 130-139mm hg Latia Sparks GENERAL PEDIATRICIAN Work Phone: Start: 04-18-2023 Psychotherapy w/patient 30 minutes Janina Christianson SALES SUPPORT CONSULTANT-S Work Phone: Start: 04-18-2023 Pt scrnd tobacco use rcvd tobacco cessation talk Latia Sparks GENERAL PEDIATRICIAN Work Phone: Start: 11-15-2022 FQHC visit, estab pt Latia Sparks GENERAL PEDIATRICIAN Work Phone: Start: 11-15-2022 Most recent diastolic blood pressure 80-89 mm hg Latia Sparks GENERAL PEDIATRICIAN Work Phone: Start: 11-15-2022 Most recent systolic blood pres>/equal 140 mm hg Latia Sparks GENERAL PEDIATRICIAN Work Phone: Start: 11-08-2022 Collection venous blood venipuncture Latia Sparks GENERAL PEDIATRICIAN Work Phone: Start: 11-08-2022 FQ visit, MH estab pt Janina Christianson LI SW-S Work Phone: Start: 11-08-2022 Psychotherapy w/patient 30 minutes Janina Christianson SALES SUPPORT CONSULTANT-S Work Phone: Start: 08-02-2022 Counseling Visit For: Consulting For Explanation of Examination Or Test Findings Latia Sparks GENERAL PEDIATRICIAN Work Phone: Start: 08-02-2022 FQ visit, estab pt Latia Sparks GENERAL PEDIATRICIAN Work Phone: Start: 08-02-2022 Most recent diastolic blood pressure 80-89 mm hg Latia Sparks GENERAL PEDIATRICIAN Work Phone: Start: 08-02-2022 Most recent systolic blood press 130-139mm hg Latia Sparks GENERAL PEDIATRICIAN Work Phone: Start: 07-23-2022 Cholecystectomy Latia Sparks GENERAL PEDIATRICIAN Work Phone: Start: 07-23-2022 Collection venous blood venipuncture Latia Sparks GENERAL PEDIATRICIAN Work Phone: Start: 07-23-2022 FQ visit, MH estab pt Cinthia Adolph LIS W-S Work Phone: Start: 07-23-2022 Hysterectomy Latia Sparks GENERAL PEDIATRICIAN Work Phone: Start: 07-23-2022 Ligation of fallopian tube Latia Ibrahi m GENERAL PEDIATRICIAN Work Phone: Start: 07-23-2022 Most recent diastol blood pres >/equal 90 mm hg Latia Sparks GENERAL PEDIATRICIAN Work Phone: Start: 07-23-2022 Most recent hg a1c>equal to 8.0%& Latia Sparks GENERAL PEDIATRICIAN Work Phone: Start: 07-23-2022 Most recent systolic blood pressure <130 mm hg Latia Sparks GENERAL PEDIATRICIAN Work Phone: Start: 07-23-2022 Pt-focused hlth risk assmt score doc stnd instrm Latia Sparks GENERAL PEDIATRICIAN Work Phone: Start: 07-23-2022 Urine albumin semiquantitative Latia Sparks GENERAL PEDIATRICIAN Work Phone: Start: 07-23-2022 Hemoglobin glycosylated a1c Latia Yasmin im GENERAL PEDIATRICIAN Work Phone: Start: 07-23-2022 Hepatitis c antibody Latia Sparks GENERAL PEDIATRICIAN Work Phone: Start: 07-23-2022 IMMATURE PLATELET FRACTION Latia Andree m RECONCILIATION SPECIALIST - SMOKE TESTER Work Phone: Start: 09-21-2021 X-ray of left [...] visit, estab pt Medical E stablished Patient [facility] Work Phone: Start: 06-05-2023 Dental Comp Exam [facility] Work Phone: Start: 06-04-2023 [facility] visit, estab pt Medical E stablished Patient [facility] Work Phone: Start: 04-18-2023 End: 04-18-2023 Patient education based on identified need BHP offered active and supportive listening, validated emotions and feelings, and processed current stressors with being in the hospital. ~BHP encouraged patient to utilize positive supports and coping skills. ~ [facility] Start: 04-18-2023 End: 04-18-2023 Patient education based on identified need [facility] Start: 11-15-2022 End: 11-15-2022 Patient education based on identified need [facility] Start: 11-15-2022 Lipid 1996 panel - S zana or Plasma [facility] Start: 11-08-2022 End: 11-08-2022 Patient education based on identified need BHP encouraged patient to utilize positive supports and coping skills. ~BHP encouraged patient to contact [facility] if they need any additional support or resources. ~ [facility] Start: 11-01-2022 FQHC visit, estab pt Medical E stablished Patient [facility] Work Phone: Start: 10-18-2022 ambulatory Ambulatory Facility:H 1 Start: 08-02-2022 FQHC visit, estab pt Medical E stablished Patient [facility] Work Phone: Start: 08-02-2022 End: 08-02-2022 Patient education based on identified need [facility] Start: 08-02-2022 End: 08-02-2022 Provider instructions for treatment Intervention and counseling on cessation of tobacco use, 3-10 minutes Discussed medication and nicotine replacement for tobacco cessation [facility] Start: 07-30-2022 CBC panel - Blood by Automated count [facility] Start: 07-30-2022 Lipid 1996 panel - S zana or Plasma LIPID PROFILE [facility] Start: 07-23-2022 End: 07-23-2022 Patient education based on identified need [facility] Start: 07-23-2022 End: 07-23-2022 Provider instructions for treatment Intervention and counseling on cessation of tobacco use, 3-10 minutes Discussed medication and nicotine replacement for tobacco cessation [facility] Start: 12-18-2021 Influenza vaccination Flu vaccine (# 1) [facility] Start: 1971 DTaP/Tdap/Td vaccine (1 - Tdap) DTaP/Tdap/Td vaccine (1 - Tdap) [facility] Start: 1952 COVID-19 Vaccine (#1) COVID-19 Vacci ne (#1) [facility] Payers Date Payer Category Payer Medicare [id number] 2014 Private Health Insurance [id number] 2014 Unknown [id number] 1959 Medicaid [id number] 1952 Unknown [id number] [id number]. 627 1952 Unknown [id number] 2.16.840.1.624230.3.579.2. 593 1952 Unknown [id number] 2.16.840.1.084702.3.579.2. 593 1952 Unknown [id number] 2.16.840.1.740340.3.579.2. 593 1952 Unknown [id number] 2.16.840.1.195803.3.579.2. 593 1952 Unknown [id number] 2.16.840.1.001912.3.579.2. 593 1952 Unknown [id number] 2.16.840.1.112934.3.579.2. 593 1952 Unknown [id number] 2.16.840.1.644402.3.579.2. 593 1952 Unknown [id number] 2.16.840.1.526796.3.579.2. 593 1952 Unknown [id number] 2.16.840.1.570855.3.579.2. 593 1952 Unknown [id number] 2.16.840.1.668865.3.579.2. 175 1952 Unknown [id number] Medicare Self-pay Unknown 1 - [facility] hcare Dual Complet [id number] Social History Date Type Detail Facility Start: 1950 Sex Assigned At Female [facility] Sex Assigned At [employer] Other Assertion Currently not se xually active (finding) [facility] Assertion Cigarette smoker (finding) [facility] Assertion Smoker (finding) [facility] Assertion Moderate cigaret te smoker (10-19 cigs/day) (finding) [facility] Assertion Exposure to poll ution (event) [facility] Assertion Gender identity finding (finding) [facility] Assertion Finding of sexua l orientation (finding) [facility] Tobacco smoking status Unknown if ever smoked [facility] Assertion History of disor vivian (situation) [facility] Assertion Emotional stress (finding) [facility] Assertion Finding of resid ence and accommodation circumstances (finding) [facility] Assertion Light cigarette smoker (1-9 cigs/day) (finding) [facility] Start: 1950 Sex Assigned At Not on file SHAWNA BRIDGETT [employer] [facility] Work Phone: NEGATED: Highlighted row - - [facility] Work Phone: NEGATED: Highlighted row Assertion Current drinker of alcohol (finding) [facility] NEGATED: Highlighted row Assertion Finding relating to drug misuse behavior (finding) [facility] NEGATED: Highlighted row Assertion [facility] NEGATED: Highlighted row Assertion Sexually active (finding) [facility] NEGATED: Highlighted row Assertion Exposure to pollution (event) [facility] Medical Equipment Procedure Code Equipment Code Equipment Origin al Text Equipment Identifier Dates BD Pen Needle Na no 2nd Gen 32G X 4 MM Miscellaneous [id number] Start: 07-23-2022 End: 08-02-2022 BD Pen Needle Na no 2nd Gen 32G X 4 MM Miscellaneous [id number] Start: 08-28-2022 BD Pen Needle Na no 2nd Gen 32G X 4 MM Miscellaneous [id number] Start: 08-22-2022 End: 08-02-2022 Functional Status Date Assessment Result Facility NEGATED: Highlighted row Functional performance Functional status health issues are not documented [facility] Work Phone: Mental Status Date Assessment Result Facility Cognitive function Moderate recu rrent major depression Moderate recurrent major depression (disorder) [facility] Work Phone: NEGATED: Highlighted row Cognitive function [Interpretation] Cognitive status health issues are not documented Disease [facility] Work Phone: Clinical Notes 09-21-2021 to 04-21-2023 Note Date & Type Note Facility 04-21-2023 Instructions Includes: Instructions for all patient encounters Intervention and counseling on cessation of tobacco use, 3-10 minutes Discussed medication and nicotine replacement for tobacco cessation Last Documented On 3 1:05PM ; [facility] Intervention and counseling on cessation of tobacco use, 3-10 minutes Discussed medication and nicotine replacement for tobacco cessation Last Documented On 3 1:02PM ; [facility] Intervention and counseling on cessation of tobacco use, 3-10 minutes Discussed medication and nicotine replacement for tobacco cessation Last Documented On 3 1:13PM ; [facility] Education and Decision Aids were provided during visit for: [facility] offered active and suppo rtive listening, validated emotions and feelings, and processed current stressors with being in the hospital. ~[facility] encouraged patient to utilize positive supports and coping skills. ~ Last Documented On 3 1:42PM ; [facility] Discussed nutritional needs teach healthy choices including fruits and vegetables Last Documented On 3 2:16PM ; [facility] Patient education about a pr oper diet 35.7 Last Documented On 3 2:16PM ; [facility] Patient education about phys ical activity benefits Last Documented On 3 10:09PM ; [facility] Patient education about medi cation Last Documented On 3 10:09PM ; [facility] Patient education about ment al health Last Documented On 3 10:09PM ; [facility] Discussed concerns about exe rcise : promote physical activity Last Documented On 3 2:16PM ; [facility] Not requesting contraception Last Documented On 3 2:16PM ; [facility] Discussed nutritional needs teach healthy choices including fruits and vegetables Last Documented On 3 2:25PM ; [facility] Patient education about a pr oper diet 37.4 Last Documented On 3 2:25PM ; [facility] Patient education about phys ical activity benefits Last Documented On 3 2:50PM ; [facility] Patient education about medi cation Last Documented On 3 2:50PM ; [facility] Patient education about ment al health Last Documented On 3 2:50PM ; [facility] Discussed concerns about exe rcise : promote physical activity Last Documented On 3 2:25PM ; [facility] encouraged patient to ut ilize positive supports and coping skills. ~P encouraged patient to contact [facility] if they need any additional support or resources. ~ Last Documented On 3 10:03PM ; [facility] Discussed nutritional needs teach healthy choices including fruits and vegetables Last Documented On 3 10:23AM ; [facility] Patient education about a pr oper diet 36.7 Last Documented On 3 10:23AM ; [facility] Patient education about phys ical activity benefits Last Documented On 3 1:07PM ; [facility] Patient education about medi cation Last Documented On 3 1:07PM ; [facility] Patient education about ment al health Last Documented On 3 1:07PM ; [facility] Discussed concerns about exe rcise : promote physical activity Last Documented On 3 10:23AM ; [facility] introduced patient to [facility] integrated model of care. ~P offered active and supportive listening, normalized emotions and feelings, and processed current stressors. ~Discussed healthy coping skills and positive supports in patient's life. ~Discussed healthy lifestyle behaviors. ~ Last Documented On 3 12:10AM ; [facility] Discussed nutritional needs 36 teach healthy choices including fruits and vegetables Last Documented On 3 12:20PM ; [facility] Patient education about a pr oper diet 36 Last Documented On 3 12:20PM ; [facility] Discussed concerns about exe rcise : promote physical activity Last Documented On 3 12:20PM ; [facility] Referred Patient to a Diabet es Self-Management Program Last Documented On 3 1:46PM ; [facility] Work Phone: 1(700) 237-347012-02-2023 Instructions Includes: Instructions for all patient encounters Instructions to patient Intervention and counseling on cessation of tobacco use, 3-10 minutes Discussed medication and nicotine replacement for tobacco cessation Last Documented On 3 1:05PM ; [facility] Intervention and counseling on cessation of tobacco use, 3-10 minutes Discussed medication and nicotine replacement for tobacco cessation Last Documented On 3 1:02PM ; [facility] Intervention and counseling on cessation of tobacco use, 3-10 minutes Discussed medication and nicotine replacement for tobacco cessation Last Documented On 3 1:13PM ; [facility] Education and Decision Aids were provided during visit for: BHP offered active and suppo rtive listening, validated emotions and feelings, and processed current stressors with being in the hospital. ~[facility] encouraged patient to utilize positive supports and coping skills. ~ Last Documented On 3 1:42PM ; [facility] Discussed nutritional needs teach healthy choices including fruits and vegetables Last Documented On 3 2:16PM ; [facility] Patient education about a pr oper diet 35.7 Last Documented On 3 2:16PM ; [facility] Discussed concerns about exe rcise : promote physical activity Last Documented On 3 2:16PM ; [facility] Not requesting contraception Last Documented On 3 2:16PM ; [facility] Discussed nutritional needs teach healthy choices including fruits and vegetables Last Documented On 3 2:25PM ; [facility] Patient education about a pr oper diet 37.4 Last Documented On 3 2:25PM ; [facility] Patient education about phys ical activity benefits Last Documented On 3 2:50PM ; [facility] Patient education about medi cation Last Documented On 3 2:50PM ; [facility] Patient education about ment al health Last Documented On 3 2:50PM ; [facility] Discussed concerns about exe rcise : promote physical activity Last Documented On 3 2:25PM ; [facility] encouraged patient to ut ilize positive supports and coping skills. ~[facility] encouraged patient to contact [facility] if they need any additional support or resources. ~ Last Documented On 3 10:03PM ; [facility] Discussed nutritional needs teach healthy choices including fruits and vegetables Last Documented On 3 10:23AM ; [facility] Patient education about a pr oper diet 36.7 Last Documented On 3 10:23AM ; [facility] Patient education about phys ical activity benefits Last Documented On 3 1:07PM ; [facility] Patient education about medi cation Last Documented On 3 1:07PM ; [facility] Patient education about ment al health Last Documented On 3 1:07PM ; [facility] Discussed concerns about exe rcise : promote physical activity Last Documented On 3 10:23AM ; [facility] introduced patient to [facility] integrated model of care. ~[facility] offered active and supportive listening, normalized emotions and feelings, and processed current stressors. ~Discussed healthy coping skills and positive supports in patient's life. ~Discussed healthy lifestyle behaviors. ~ Last Documented On 3 12:10AM ; [facility] Discussed nutritional needs 36 teach healthy choices including fruits and vegetables Last Documented On 3 12:20PM ; [facility] Patient education about a pr oper diet 36 Last Documented On 3 12:20PM ; [facility] Discussed concerns about exe rcise : promote physical activity Last Documented On 3 12:20PM ; [facility] Referred Patient to a Diabet es Self-Management Program Last Documented On 3 1:46PM ; [facility] Work Phone: 1(367) 157-892111-30-2023 Evaluation note Includes: Assessments for all patient encounters Findings Encounter Date Moderate recurrent major depression BH E stablished Patient with Janina Meghan SALES SUPPORT CONSULTANT-S 04/18/2023 Last Documented On 3 1:42PM ; [facility] [Z68.35 - Body mass index [B IL] 35.0-35.9, adult] assessment of body mass index Medical Established Patient with Latia Sparks GENERAL PEDIATRICIAN 04/18/2023 Last Documented On 3 2:51PM ; [facility] Assessment of body mass index Medical Es tablished Patient with Latia Sparks GENERAL PEDIATRICIAN 11/15/2022 Last Documented On 3 2:53PM ; [facility] Generalized anxiety disorder Establis hed Patient with Janina Meghan SALES SUPPORT CONSULTANT-S 11/08/2022 Last Documented On 3 10:03PM ; [facility] Hyperlipidemia Nurse Visit with Latia Hoffmanim [facility] 11/08/2022 Last Documented On 3 2:16PM ; [facility] Venipuncture was performed Nurse Visit with Kathia Farooqahim [facility] 11/08/2022 Last Documented On 3 2:16PM ; [facility] [Z68.36 - Body mass index [B IL] 36.0-36.9, adult] assessment of body mass index Medical Established Patient with Latia Sparks GENERAL PEDIATRICIAN 08/02/2022 Last Documented On 3 1:36PM ; [facility] Intervention and counseling on cessation of tobacco use, 3-10 minutes Discussed medication and nicotine replacement for tobacco cessation Medical Established Patient with Latia Sparks GENERAL PEDIATRICIAN 08/02/2022 Last Documented On 3 1:36PM ; [facility] Visit for: person consulting for explanation of examination or test findings Medical Established Patient with Latia Sparks GENERAL PEDIATRICIAN 08/02/2022 Last Documented On 3 1:36PM ; [facility] Generalized anxiety disorder Establis hed Patient with Cinthia Farfan SALES SUPPORT CONSULTANT-S 07/23/2022 Last Documented On 3 12:17AM ; [facility] Intervention and counseling on cessation of tobacco use, 3-10 minutes Discussed medication and nicotine replacement for tobacco cessation Established Patient with Cinthia Farfan SALES SUPPORT CONSULTANT-S 07/23/2022 Last Documented On 3 12:17AM ; [facility] Moderate recurrent major depression E stablished Patient with Cinthia Stone SALES SUPPORT CONSULTANT-S 07/23/2022 Last Documented On 3 12:17AM ; [facility] Nicotine dependence Established Patient with Cinthia Stone SALES SUPPORT CONSULTANT-S 07/23/2022 Last Documented On 3 12:17AM ; [facility] Primary insomnia Established Patient with Deysi Farfan SALES SUPPORT CONSULTANT-S 07/23/2022 Last Documented On 3 12:17AM ; [facility] [Z68.36 - Body mass index [B IL] 36.0-36.9, adult] assessment of body mass index Medical New Patient with Latia Hoffmanim GENERAL PEDIATRICIAN 07/23/2022 Last Documented On 3 2:32PM ; [facility] Diabetes Risk Test Score was nine score 07/23/2022 Medical New Patient with Latia Hoffmanim GENERAL PEDIATRICIAN 07/23/2022 Last Documented On 3 2:32PM ; [facility] Intervention and counseling on cessation of tobacco use, 3-10 minutes Discussed medication and nicotine replacement for tobacco cessation Medical New Patient with Latia Sparks GENERAL PEDIATRICIAN 07/23/2022 Last Documented On 3 2:32PM ; [facility] Screening for Hep C Medical New Patient with Nad yelitza Sparks GENERAL PEDIATRICIAN 07/23/2022 Last Documented On 3 2:32PM ; [facility] Screening for HIV Medical New Patient with Hiren a Sparks GENERAL PEDIATRICIAN 07/23/2022 Last Documented On 3 2:32PM ; [facility] Venipuncture was performed Medical New Patient w dmitry Hoffmanim GENERAL PEDIATRICIAN 07/23/2022 Last Documented On 3 2:32PM ; [facility] Visit for routine adult H&P without abnormal findings Medical New Patient with Latia Sparks GENERAL PEDIATRICIAN 07/23/2022 Last Documented On 3 2:32PM ; [facility] Work Phone: 1(230) 901-228811-30-2023 Evaluation note Includes: Assessments for all patient encounters Findings Encounter Date Moderate recurrent major depression BH E stablished Patient with Janina Meghan SALES SUPPORT CONSULTANT-S 04/18/2023 Last Documented On 3 1:42PM ; [facility] [Z68.35 - Body mass index [B IL] 35.0-35.9, adult] assessment of body mass index Medical Established Patient with Latia Sparks GENERAL PEDIATRICIAN 04/18/2023 Last Documented On 3 10:11PM ; [facility] Nicotine dependence Medical Established Patient with Latia Sparks GENERAL PEDIATRICIAN 04/18/2023 Last Documented On 3 10:11PM ; [facility] 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 Medical Established Patient with Latia Sparks GENERAL PEDIATRICIAN 04/18/2023 Last Documented On 3 10:11PM ; [facility] Assessment of body mass index Medical Es tablished Patient with Latia Sparks GENERAL PEDIATRICIAN 11/15/2022 Last Documented On 3 2:53PM ; [facility] Generalized anxiety disorder BH Establis hed Patient with Janina Meghan SALES SUPPORT CONSULTANT-S 11/08/2022 Last Documented On 3 10:03PM ; [facility] Hyperlipidemia Nurse Visit with Latia Sparks GENERAL PEDIATRICIAN 11/08/2022 Last Documented On 3 2:16PM ; [facility] Venipuncture was performed Nurse Visit with Genarobob gamino Sparks GENERAL PEDIATRICIAN 11/08/2022 Last Documented On 3 2:16PM ; [facility] [Z68.36 - Body mass index [B IL] 36.0-36.9, adult] assessment of body mass index Medical Established Patient with Latia Sparks GENERAL PEDIATRICIAN 08/02/2022 Last Documented On 3 1:36PM ; [facility] Intervention and counseling on cessation of tobacco use, 3-10 minutes Discussed medication and nicotine replacement for tobacco cessation Medical Established Patient with Latia Sparks GENERAL PEDIATRICIAN 08/02/2022 Last Documented On 3 1:36PM ; [facility] Visit for: person consulting for explanation of examination or test findings Medical Established Patient with Latia Hoffmanim GENERAL PEDIATRICIAN 08/02/2022 Last Documented On 3 1:36PM ; [facility] Generalized anxiety disorder Establis hed Patient with Cinthia Stone SALES SUPPORT CONSULTANT-S 07/23/2022 Last Documented On 3 12:17AM ; [facility] Intervention and counseling on cessation of tobacco use, 3-10 minutes Discussed medication and nicotine replacement for tobacco cessation Established Patient with Cinthia Stone SALES SUPPORT CONSULTANT-S 07/23/2022 Last Documented On 3 12:17AM ; [facility] Moderate recurrent major depression E stablished Patient with Cinthia Stone SALES SUPPORT CONSULTANT-S 07/23/2022 Last Documented On 3 12:17AM ; [facility] Nicotine dependence Established Patient with Cinthia Stone SALES SUPPORT CONSULTANT-S 07/23/2022 Last Documented On 3 12:17AM ; [facility] Primary insomnia Established Patient with Deysi pugh Stone SALES SUPPORT CONSULTANT-S 07/23/2022 Last Documented On 3 12:17AM ; [facility] [Z68.36 - Body mass index [B IL] 36.0-36.9, adult] assessment of body mass index Medical New Patient with Latia Hoffmanim GENERAL PEDIATRICIAN 07/23/2022 Last Documented On 3 2:32PM ; [facility] Diabetes Risk Test Score was nine score 07/23/2022 Medical New Patient with Latia Hoffmanim GENERAL PEDIATRICIAN 07/23/2022 Last Documented On 3 2:32PM ; [facility] Intervention and counseling on cessation of tobacco use, 3-10 minutes Discussed medication and nicotine replacement for tobacco cessation Medical New Patient with Latia Hoffmanim GENERAL PEDIATRICIAN 07/23/2022 Last Documented On 3 2:32PM ; [facility] Screening for Hep C Medical New Patient with Nad yelitza Hoffmanim GENERAL PEDIATRICIAN 07/23/2022 Last Documented On 3 2:32PM ; [facility] Screening for HIV Medical New Patient with Hiren Sparks GENERAL PEDIATRICIAN 07/23/2022 Last Documented On 3 2:32PM ; [facility] Venipuncture was performed Medical New Patient w dmitry Sparks GENERAL PEDIATRICIAN 07/23/2022 Last Documented On 3 2:32PM ; [facility] Visit for routine adult H&P without abnormal findings Medical New Patient with Latia Sparks GENERAL PEDIATRICIAN 07/23/2022 Last Documented On 3 2:32PM ; [facility] Work Phone: 1(160) 240-796211-30-2023 History general Narrative - Reported Includes: Medical History in patient's chart Description Last Updated Not planning to have a baby in the next 12 months 04/18/2023 Last Documented On 3 10:11PM ; [facility] No previous suicide attempt 07/24/2022 Last Documented On 3 12:17AM ; [facility] A recent examination by an ophthalmologi st 07/21/2022 07/23/2022 Last Documented On 3 2:32PM ; [facility] History of diabetes mellitus 07/23/2022 Last Documented On 3 2:32PM ; [facility] History of systemic hypertension 023 Last Documented On 3 2:32PM ; [facility] No previous hospitalizations 07/23/2022 Last Documented On 3 2:32PM ; [facility] Recent immunization for flu 07/23/2022 Last Documented On 3 2:32PM ; [facility] Work Phone: 1(556) 501-525911-30-2023 Progress note* Progress note Date Encounter Last Documented by 04/18/2023 BH Established Patient Last docu mented on 04/20/2023; 1:42 PM, Janina FRIED; [facility] Active Problems & Conditions - 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 [...] previous hospitalizations. A recent examination by an wrapper layer and examiner soft work 07/21/2022. Immunization History: Recent immunization for flu. [...] Health Reminders - Eye Exam satisfied 07/21/2022. [facility]11-30-2023 Progress note* Progress note Date Encounter Last Documented by 04/18/2023 Medical Established Patient Last documented on 04/21/2023; 10:11 PM, Latia Sparks GENERAL PEDIATRICIAN; [facility] Active Problems & Conditions - E11.610 - [...] previous hospitalizations. A recent examination by an wrapper layer and examiner soft work 07/21/2022. Immunization History: Recent immunization for flu. [...] dhaliwal), and gender identity Female. Allergies - Fowler Reaction: Hives / Urticaria, Shock - Mellaril [...] BP-Sitting R138/80 mmHg BP Cuff SizeLarge Pulse Rate-Lhsfwuh82 bpm Respiration Rate18 per min Temp-Oral97.8 F Iyinoi61 in Skppas207 lbs Body Mass Index35.7 kg/m2 Body Surface Area2 m2 Oxygen Qztzcpsnvp39 % O2 DeviceNone (Room Air) JlL647 % Vital Signs: - Systolic blood pressure [...] + 0 pt : Not at all. [facility]11-30-2023 Reason for referral (narrative)* Date Encounter Description Provider Reason for Referral 04/18/23 Medical Established Patient Latia thayer GENERAL PEDIATRICIAN Referral To Mental Health Team 07/23/22 Established Patient Cinthia Pendleton Referral To Mental Health Team [facility] Work Phone: 1(633) 897-920611-13-2023 Progress note* Progress note Date Encounter Last Documented by 04/01/2023 Chart Update Last documented on 04/01/2023; 10:55 AM, Latia MAYORGA; [facility] Active Problems & Conditions - 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 A recent examination by an wrapper layer and examiner soft work 07/21/2022. Immunization History: Recent immunization for flu. Diagnoses: Systemic hypertension. Diabetes mellitus Surgical: - Cholecystectomy - Hernia repair - Hysterectomy - Tubal ligation Allergies - Fowler Reaction: Hives / Urticaria, Shock - Mellaril - PENICILLINS Reaction: Hives / Urticaria - Topamax Family History Maternal: Type 1 diabetes mellitus Plan StartCited- Acute sinusitis, unspecified Azithromycin 250 MG tablet 500 mg by mouth x 1 day 1, then 250 mg by mouth daily x 4 days., 5 days, 0 refills EndCited [facility]11-13-2023 Instructions Includes: Instructions for all patient encounters Instructions to patient Intervention and counseling on cessation of tobacco use, 3-10 minutes Discussed medication and nicotine replacement for tobacco cessation Last Documented On 3 1:05PM ; [facility] Intervention and counseling on cessation of tobacco use, 3-10 minutes Discussed medication and nicotine replacement for tobacco cessation Last Documented On 3 1:02PM ; [facility] Intervention and counseling on cessation of tobacco use, 3-10 minutes Discussed medication and nicotine replacement for tobacco cessation Last Documented On 3 1:13PM ; [facility] Education and Decision Aids were provided during visit for: Discussed nutritional needs teach healthy choices including fruits and vegetables Last Documented On 3 2:25PM ; [facility] Patient education about a pr oper diet 37.4 Last Documented On 3 2:25PM ; [facility] Patient education about phys ical activity benefits Last Documented On 3 2:50PM ; [facility] Patient education about medi cation Last Documented On 3 2:50PM ; [facility] Patient education about ment al health Last Documented On 3 2:50PM ; [facility] Discussed concerns about exe rcise : promote physical activity Last Documented On 3 2:25PM ; [facility] encouraged patient to ut ilize positive supports and coping skills. ~[facility] encouraged patient to contact [facility] if they need any additional support or resources. ~ Last Documented On 3 10:03PM ; [facility] Discussed nutritional needs teach healthy choices including fruits and vegetables Last Documented On 3 10:23AM ; [facility] Patient education about a pr oper diet 36.7 Last Documented On 3 10:23AM ; [facility] Patient education about phys ical activity benefits Last Documented On 3 1:07PM ; [facility] Patient education about medi cation Last Documented On 3 1:07PM ; [facility] Patient education about ment al health Last Documented On 3 1:07PM ; [facility] Discussed concerns about exe rcise : promote physical activity Last Documented On 3 10:23AM ; [facility] introduced patient to [facility] integrated model of care. ~P offered active and supportive listening, normalized emotions and feelings, and processed current stressors. ~Discussed healthy coping skills and positive supports in patient's life. ~Discussed healthy lifestyle behaviors. ~ Last Documented On 3 12:10AM ; [facility] Discussed nutritional needs 36 teach healthy choices including fruits and vegetables Last Documented On 3 12:20PM ; [facility] Patient education about a pr oper diet 36 Last Documented On 3 12:20PM ; [facility] Discussed concerns about exe rcise : promote physical activity Last Documented On 3 12:20PM ; [facility] Referred Patient to a Diabet es Self-Management Program Last Documented On 3 1:46PM ; [facility] Work Phone: 1(446) 554-741506-29-2023 Evaluation note Includes: Assessments for all patient encounters Findings Encounter Date Assessment of body mass index Medical Es tablished Patient with Latia Sparks [facility] 11/15/2022 Last Documented On 3 2:53PM ; [facility] Generalized anxiety disorder BH Establis hed Patient with Janina PARRISH-S 11/08/2022 Last Documented On 3 10:03PM ; [facility] Hyperlipidemia Nurse Visit with Latia Sparks [facility] 11/08/2022 Last Documented On 3 2:16PM ; [facility] Venipuncture was performed Nurse Visit with Kathia Sparks [facility] 11/08/2022 Last Documented On 3 2:16PM ; [facility] [Z68.36 - Body mass index [B IL] 36.0-36.9, adult] assessment of body mass index Medical Established Patient with Latia Sparks [facility] 08/02/2022 Last Documented On 3 1:36PM ; [facility] Intervention and counseling on cessation of tobacco use, 3-10 minutes Discussed medication and nicotine replacement for tobacco cessation Medical Established Patient with Latia Sparks [facility] 08/02/2022 Last Documented On 3 1:36PM ; [facility] Visit for: person consulting for explanation of examination or test findings Medical Established Patient with Latia Sparks GENERAL PEDIATRICIAN 08/02/2022 Last Documented On 3 1:36PM ; [facility] Generalized anxiety disorder Establis hed Patient with Cinthia Stone [employer] 07/23/2022 Last Documented On 3 12:17AM ; [facility] Intervention and counseling on cessation of tobacco use, 3-10 minutes Discussed medication and nicotine replacement for tobacco cessation Established Patient with Cinthia Stone [employer] 07/23/2022 Last Documented On 3 12:17AM ; [facility] Moderate recurrent major depression E stablished Patient with Cinthia Stone [employer] 07/23/2022 Last Documented On 3 12:17AM ; [facility] Nicotine dependence Established Patient with Cinthia Stone [employer] 07/23/2022 Last Documented On 3 12:17AM ; [facility] Primary insomnia Established Patient with Deysi pugh Stone [employer] 07/23/2022 Last Documented On 3 12:17AM ; [facility] [Z68.36 - Body mass index [B IL] 36.0-36.9, adult] assessment of body mass index Medical New Patient with Latia Sparks GENERAL PEDIATRICIAN 07/23/2022 Last Documented On 3 2:32PM ; [facility] Diabetes Risk Test Score was nine score 07/23/2022 Medical New Patient with Latia Sparks GENERAL PEDIATRICIAN 07/23/2022 Last Documented On 3 2:32PM ; [facility] Intervention and counseling on cessation of tobacco use, 3-10 minutes Discussed medication and nicotine replacement for tobacco cessation Medical New Patient with Latia Sparks GENERAL PEDIATRICIAN 07/23/2022 Last Documented On 3 2:32PM ; [facility] Screening for Hep C Medical New Patient with Nad yelitza Sparks GENERAL PEDIATRICIAN 07/23/2022 Last Documented On 3 2:32PM ; [facility] Screening for HIV Medical New Patient with Hiren Sparks GENERAL PEDIATRICIAN 07/23/2022 Last Documented On 3 2:32PM ; [facility] Venipuncture was performed Medical New Patient w dmitry Sparks [facility] 07/23/2022 Last Documented On 3 2:32PM ; [facility] Visit for routine adult H&P without abnormal findings Medical New Patient with Latia Sparks GENERAL PEDIATRICIAN 07/23/2022 Last Documented On 3 2:32PM ; [facility] Work Phone: 1(246) 282-328806-29-2023 Progress note* Progress note Date Encounter Last Documented by 11/15/2022 Medical Established Patient Last documented on 11/15/2022; 2:53 PM, Latia Sparks [facility]; [facility] Active Problems & Conditions - E11.610 - [...] The patient is currently living at a senior care that does not follow any diabetic or [...] previous hospitalizations. A recent examination by an wrapper layer and examiner soft work 07/21/2022. Immunization History: Recent immunization for flu. [...] 11/15/2022 02:17 pm BP-Sitting R143/78 mmHg Pulse Rate-Iciakcy56 bpm Qdyjin42 in Egpjrd121 lbs Body Mass Index37.4 kg/m2 Body Surface Area2 m2 Oxygen Fcjxssumou45 % - Vitals taken 11/15/2022 02:24 pm BP-Rmawosw710/82 mmHg General Appearance: - Awake. - Alert. [...] and diastolic 80-89 mmHg diastolic 80-89 mmHg. [facility]06-24-2023 Instructions Includes: Instructions for all patient encounters Instructions to patient Intervention and counseling on cessation of tobacco use, 3-10 minutes Discussed medication and nicotine replacement for tobacco cessation Last Documented On 3 1:05PM ; [facility] Intervention and counseling on cessation of tobacco use, 3-10 minutes Discussed medication and nicotine replacement for tobacco cessation Last Documented On 3 1:02PM ; [facility] Intervention and counseling on cessation of tobacco use, 3-10 minutes Discussed medication and nicotine replacement for tobacco cessation Last Documented On 3 1:13PM ; [facility] Education and Decision Aids were provided during visit for: [facility] encouraged patient to ut ilize positive supports and coping skills. ~[facility] encouraged patient to contact [facility] if they need any additional support or resources. ~ Last Documented On 3 10:03PM ; [facility] Discussed nutritional needs teach healthy choices including fruits and vegetables Last Documented On 3 10:23AM ; [facility] Patient education about a pr oper diet 36.7 Last Documented On 3 10:23AM ; [facility] Patient education about phys ical activity benefits Last Documented On 3 1:07PM ; [facility] Patient education about medi cation Last Documented On 3 1:07PM ; [facility] Patient education about ment al health Last Documented On 3 1:07PM ; [facility] Discussed concerns about exe rcise : promote physical activity Last Documented On 3 10:23AM ; [facility] introduced patient to [facility] integrated model of care. ~[facility] offered active and supportive listening, normalized emotions and feelings, and processed current stressors. ~Discussed healthy coping skills and positive supports in patient's life. ~Discussed healthy lifestyle behaviors. ~ Last Documented On 3 12:10AM ; [facility] Discussed nutritional needs 36 teach healthy choices including fruits and vegetables Last Documented On 3 12:20PM ; [facility] Patient education about a pr oper diet 36 Last Documented On 3 12:20PM ; [facility] Discussed concerns about exe rcise : promote physical activity Last Documented On 3 12:20PM ; [facility] Referred Patient to a Diabet es Self-Management Program Last Documented On 3 1:46PM ; [facility] Work Phone: 1(505) 849-157806-22-2023 Evaluation note Includes: Assessments for all patient encounters Findings Encounter Date Hyperlipidemia Nurse Visit with Latia Sparks [facility] 11/08/2022 Last Documented On 3 2:16PM ; [facility] Venipuncture was performed Nurse Visit with Kathia Sparks [facility] 11/08/2022 Last Documented On 3 2:16PM ; [facility] [Z68.36 - Body mass index [B IL] 36.0-36.9, adult] assessment of body mass index Medical Established Patient with Latia Sparks [facility] 08/02/2022 Last Documented On 3 1:36PM ; [facility] Intervention and counseling on cessation of tobacco use, 3-10 minutes Discussed medication and nicotine replacement for tobacco cessation Medical Established Patient with Latia Sparks [facility] 08/02/2022 Last Documented On 3 1:36PM ; [facility] Visit for: person consulting for explanation of examination or test findings Medical Established Patient with Latia Sparks [facility] 08/02/2022 Last Documented On 3 1:36PM ; [facility] Generalized anxiety disorder BH Establis hed Patient with Cinthia Stone [employer] 07/23/2022 Last Documented On 3 12:17AM ; [facility] Intervention and counseling on cessation of tobacco use, 3-10 minutes Discussed medication and nicotine replacement for tobacco cessation Established Patient with Cinthia Stone [employer] 07/23/2022 Last Documented On 3 12:17AM ; [facility] Moderate recurrent major depression E stablished Patient with Cinthia Stone [employer] 07/23/2022 Last Documented On 3 12:17AM ; [facility] Nicotine dependence Established Patient with Cinthia Stone [employer] 07/23/2022 Last Documented On 3 12:17AM ; [facility] Primary insomnia Established Patient with Deysi pugh Stone [employer]ANT[employer] 07/23/2022 Last Documented On 3 12:17AM ; [facility] [Z68.36 - Body mass index [B IL] 36.0-36.9, adult] assessment of body mass index Medical New Patient with Latia Hoffmanim GENERAL PEDIATRICIAN 07/23/2022 Last Documented On 3 2:32PM ; [facility] Diabetes Risk Test Score was nine score 07/23/2022 Medical New Patient with Latia Sparks GENERAL PEDIATRICIAN 07/23/2022 Last Documented On 3 2:32PM ; [facility] Intervention and counseling on cessation of tobacco use, 3-10 minutes Discussed medication and nicotine replacement for tobacco cessation Medical New Patient with Latia Sparks GENERAL PEDIATRICIAN 07/23/2022 Last Documented On 3 2:32PM ; [facility] Screening for Hep C Medical New Patient with Nad yelitzakathryn FarooqSparks GENERAL PEDIATRICIAN 07/23/2022 Last Documented On 3 2:32PM ; [facility] Screening for HIV Medical New Patient with Hiren a Sparks GENERAL PEDIATRICIAN 07/23/2022 Last Documented On 3 2:32PM ; [facility] Venipuncture was performed Medical New Patient w dmitry Hoffmanim [facility] 07/23/2022 Last Documented On 3 2:32PM ; [facility] Visit for routine adult H&P without abnormal findings Medical New Patient with Latiakathryn Hoffmanim GENERAL PEDIATRICIAN 07/23/2022 Last Documented On 3 2:32PM ; [facility] Work Phone: 1(332) 440-102706-22-2023 Evaluation note Includes: Assessments for all patient encounters Findings Encounter Date Generalized anxiety disorder BH Establis hed Patient with Janina Meghan [employer] 11/08/2022 Last Documented On 3 10:03PM ; [facility] Hyperlipidemia Nurse Visit with Latia Hoffmanim GENERAL PEDIATRICIAN 11/08/2022 Last Documented On 3 2:16PM ; [facility] Venipuncture was performed Nurse Visit with Kathia Hoffmanim [facility] 11/08/2022 Last Documented On 3 2:16PM ; [facility] [Z68.36 - Body mass index [B IL] 36.0-36.9, adult] assessment of body mass index Medical Established Patient with Latia Sparks GENERAL PEDIATRICIAN 08/02/2022 Last Documented On 3 1:36PM ; [facility] Intervention and counseling on cessation of tobacco use, 3-10 minutes Discussed medication and nicotine replacement for tobacco cessation Medical Established Patient with Latia Sparks GENERAL PEDIATRICIAN 08/02/2022 Last Documented On 3 1:36PM ; [facility] Visit for: person consulting for explanation of examination or test findings Medical Established Patient with Latia Hoffmanim GENERAL PEDIATRICIAN 08/02/2022 Last Documented On 3 1:36PM ; [facility] Generalized anxiety disorder Establis hed Patient with Cinthia Stone [employer] SUPPORT [employer]ANT[employer] 07/23/2022 Last Documented On 3 12:17AM ; [facility] Intervention and counseling on cessation of tobacco use, 3-10 minutes Discussed medication and nicotine replacement for tobacco cessation Established Patient with Cinthia Stone [employer] SUPPORT CONS[employer]ANT[employer] 07/23/2022 Last Documented On 3 12:17AM ; [facility] Moderate recurrent major depression E stablished Patient with Cinthia Stone [employer] SU[employer] 07/23/2022 Last Documented On 3 12:17AM ; [facility] Nicotine dependence Established Patient with Cinthia Stone [employer] SUPPORT [employer]ANT[employer] 07/23/2022 Last Documented On 3 12:17AM ; [facility] Primary insomnia Established Patient with Deysi pugh Stone [employer] SUPPORT CONSULTANT[employer] 07/23/2022 Last Documented On 3 12:17AM ; [facility] [Z68.36 - Body mass index [B IL] 36.0-36.9, adult] assessment of body mass index Medical New Patient with Latia Sparks GENERAL PEDIATRICIAN 07/23/2022 Last Documented On 3 2:32PM ; [facility] Diabetes Risk Test Score was nine score 07/23/2022 Medical New Patient with Latia Sparks GENERAL PEDIATRICIAN 07/23/2022 Last Documented On 3 2:32PM ; [facility] Intervention and counseling on cessation of tobacco use, 3-10 minutes Discussed medication and nicotine replacement for tobacco cessation Medical New Patient with Latia Sparks GENERAL PEDIATRICIAN 07/23/2022 Last Documented On 3 2:32PM ; [facility] Screening for Hep C Medical New Patient with Nad yelitza Sparks GENERAL PEDIATRICIAN 07/23/2022 Last Documented On 3 2:32PM ; [facility] Screening for HIV Medical New Patient with Hiren Sparks GENERAL PEDIATRICIAN 07/23/2022 Last Documented On 3 2:32PM ; [facility] Venipuncture was performed Medical New Patient w dmitry Sparks GENERAL PEDIATRICIAN 07/23/2022 Last Documented On 3 2:32PM ; [facility] Visit for routine adult H&P without abnormal findings Medical New Patient with Latia Sparks GENERAL PEDIATRICIAN 07/23/2022 Last Documented On 3 2:32PM ; [facility] Work Phone: 1(422) 855-334806-22-2023 Progress note* Progress note Date Encounter Last Documented by 11/08/2022 Nurse Visit Last documented on 11/08/2022; 2:16 PM, Latia Sparks [facility]; [facility] Active Problems & Conditions - E11.610 - [...] previous hospitalizations. A recent examination by an wrapper layer and examiner soft work 07/21/2022. Immunization History: Recent immunization for flu. 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 [...] previous hospitalizations. A recent examination by an wrapper layer and examiner soft work 07/21/2022. Immunization History: Recent immunization for flu. [...] - Collaborated with patient and provider: Counseling/Education [facility] encouraged patient to utilize positive supports and coping skills. [facility] encouraged patient to contact [facility] if they need any additional support or resources. . Plan [facility] to follow up with patient at [...] + 0 pt : Not at all. [facility]06-22-2023 Instructions Includes: Instructions for all patient encounters Instructions to patient Intervention and counseling on cessation of tobacco use, 3-10 minutes Discussed medication and nicotine replacement for tobacco cessation Last Documented On 3 1:05PM ; [facility] Intervention and counseling on cessation of tobacco use, 3-10 minutes Discussed medication and nicotine replacement for tobacco cessation Last Documented On 3 1:02PM ; [facility] Intervention and counseling on cessation of tobacco use, 3-10 minutes Discussed medication and nicotine replacement for tobacco cessation Last Documented On 3 1:13PM ; [facility] Education and Decision Aids were provided during visit for: Discussed nutritional needs teach healthy choices including fruits and vegetables Last Documented On 3 10:23AM ; [facility] Patient education about a pr oper diet 36.7 Last Documented On 3 10:23AM ; [facility] Patient education about phys ical activity benefits Last Documented On 3 1:07PM ; [facility] Patient education about medi cation Last Documented On 3 1:07PM ; [facility] Patient education about ment al health Last Documented On 3 1:07PM ; [facility] Discussed concerns about exe rcise : promote physical activity Last Documented On 3 10:23AM ; [facility] introduced patient to [facility] integrated model of care. ~P offered active and supportive listening, normalized emotions and feelings, and processed current stressors. ~Discussed healthy coping skills and positive supports in patient's life. ~Discussed healthy lifestyle behaviors. ~ Last Documented On 3 12:10AM ; [facility] Discussed nutritional needs 36 teach healthy choices including fruits and vegetables Last Documented On 3 12:20PM ; [facility] Patient education about a pr oper diet 36 Last Documented On 3 12:20PM ; [facility] Discussed concerns about exe rcise : promote physical activity Last Documented On 3 12:20PM ; [facility] Referred Patient to a Diabet es Self-Management Program Last Documented On 3 1:46PM ; [facility] Work Phone: 1(175) 329-770104-11-2023 NoteCONSULTATION CONSULTATION DATE: 08/28/2022 TO: Geraldo Prado [...] the lower extremities MEDICATION: Current medication includes [place] 5 mg b.i.d. p.r.n. She reports that she has not been taking her Xanax. She reports the [place] does seem to increase in her quality [...] our patients to inform us about any [id number] medications or herbal remedies/nutritional supplements/alternative remedies. 2. [...] treatment options with their primary care provider.[id number] Progress note* Progress note Date Encounter Last Documented by 08/02/2022 Medical Established Patient Last documented on 08/02/2022; 1:36 PM, Latia MAYORGA; [facility] Active Problems & Conditions - E11.610 [...] results, Pt needs tresiba prescribed to the [facility] just for today. Referred Here No [...] has been provided. The patient lives a senior care, where food is cooking Current Medication - [...] previous hospitalizations. A recent examination by an wrapper layer and examiner soft work 07/21/2022. Immunization History: Recent immunization for flu. [...] BP-Sitting R138/82 mmHg BP Cuff SizeLarge Pulse Rate-Vlosjof02 bpm Pulse RhythmRegular Respiration Rate18 per min Temp-Imozitrr39.5 F Ihvljo11 in Gpadsw035 lbs Body Mass Index36.7 kg/m2 Body Surface Area2 m2 Oxygen Grghnipvux79 % O2 DeviceNone (Room Air) IhP419 % General Appearance: - Awake. - Alert. [...] and diastolic 80-89 mmHg diastolic 80-89 mmHg. [facility]03-16-2023 Instructions Includes: Instructions for all patient encounters Instructions to patient Intervention and counseling on cessation of tobacco use, 3-10 minutes Discussed medication and nicotine replacement for tobacco cessation Last Documented On 3 1:05PM ; [facility] Intervention and counseling on cessation of tobacco use, 3-10 minutes Discussed medication and nicotine replacement for tobacco cessation Last Documented On 3 1:02PM ; [facility] Intervention and counseling on cessation of tobacco use, 3-10 minutes Discussed medication and nicotine replacement for tobacco cessation Last Documented On 3 1:13PM ; [facility] Education and Decision Aids were provided during visit for: Discussed nutritional needs teach healthy choices including fruits and vegetables Last Documented On 3 10:23AM ; [facility] Patient education about a pr oper diet 36.7 Last Documented On 3 10:23AM ; [facility] Patient education about phys ical activity benefits Last Documented On 3 1:07PM ; [facility] Patient education about medi cation Last Documented On 3 1:07PM ; [facility] Patient education about ment al health Last Documented On 3 1:07PM ; [facility] Discussed concerns about exe rcise : promote physical activity Last Documented On 3 10:23AM ; [facility] introduced patient to [facility] integrated model of care. ~P offered active and supportive listening, normalized emotions and feelings, and processed current stressors. ~Discussed healthy coping skills and positive supports in patient's life. ~Discussed healthy lifestyle behaviors. ~ Last Documented On 3 12:10AM ; [facility] Discussed nutritional needs 36 teach healthy choices including fruits and vegetables Last Documented On 3 12:20PM ; [facility] Patient education about a pr oper diet 36 Last Documented On 3 12:20PM ; [facility] Discussed concerns about exe rcise : promote physical activity Last Documented On 3 12:20PM ; [facility] Referred Patient to a Diabet es Self-Management Program Last Documented On 3 1:46PM ; [facility] Work Phone: 1(991) 814-312603-16-2023 Instructions Includes: Instructions for all patient encounters Instructions to patient Intervention and counseling on cessation of tobacco use, 3-10 minutes Discussed medication and nicotine replacement for tobacco cessation Last Documented On 3 1:05PM ; [facility] Intervention and counseling on cessation of tobacco use, 3-10 minutes Discussed medication and nicotine replacement for tobacco cessation Last Documented On 3 1:02PM ; [facility] Intervention and counseling on cessation of tobacco use, 3-10 minutes Discussed medication and nicotine replacement for tobacco cessation Last Documented On 3 1:13PM ; [facility] Education and Decision Aids were provided during visit for: Discussed nutritional needs teach healthy choices including fruits and vegetables Last Documented On 3 10:23AM ; [facility] Patient education about a pr oper diet 36.7 Last Documented On 3 10:23AM ; [facility] Patient education about phys ical activity benefits Last Documented On 3 1:07PM ; [facility] Patient education about medi cation Last Documented On 3 1:07PM ; [facility] Patient education about ment al health Last Documented On 3 1:07PM ; [facility] Discussed concerns about exe rcise : promote physical activity Last Documented On 3 10:23AM ; [facility] introduced patient to [facility] integrated model of care. ~P offered active and supportive listening, normalized emotions and feelings, and processed current stressors. ~Discussed healthy coping skills and positive supports in patient's life. ~Discussed healthy lifestyle behaviors. ~ Last Documented On 3 12:10AM ; [facility] Discussed nutritional needs 36 teach healthy choices including fruits and vegetables Last Documented On 3 12:20PM ; [facility] Patient education about a pr oper diet 36 Last Documented On 3 12:20PM ; [facility] Discussed concerns about exe rcise : promote physical activity Last Documented On 3 12:20PM ; [facility] Referred Patient to a Diabet es Self-Management Program Last Documented On 3 1:46PM ; [facility] Work Phone: [phone]) 814-366503-07-2023 History general Narrative - Reported Includes: Medical History in patient's chart Description Last Updated No previous suicide attempt 07/24/2022 Last Documented On 3 12:17AM ; [facility] A recent examination by an ophthalmologi st 07/21/2022 07/23/2022 Last Documented On 3 2:32PM ; [facility] History of diabetes mellitus 07/23/2022 Last Documented On 3 2:32PM ; [facility] History of systemic hypertension 023 Last Documented On 3 2:32PM ; [facility] No previous hospitalizations 07/23/2022 Last Documented On 3 2:32PM ; [facility] Recent immunization for flu 07/23/2022 Last Documented On 3 2:32PM ; [facility] Work Phone: 1(190) 102-194703-07-2023 History general Narrative - Reported Includes: Medical History in patient's chart Description Last Updated No previous suicide attempt 07/24/2022 Last Documented On 3 12:17AM ; [facility] A recent examination by an ophthalmologi st 07/21/2022 07/23/2022 Last Documented On 3 2:32PM ; [facility] History of diabetes mellitus 07/23/2022 Last Documented On 3 2:32PM ; [facility] History of systemic hypertension 023 Last Documented On 3 2:32PM ; [facility] No previous hospitalizations 07/23/2022 Last Documented On 3 2:32PM ; [facility] Recent immunization for flu 07/23/2022 Last Documented On 3 2:32PM ; [facility] Work Phone: 1([phone]) 248-969403-07-2023 History general Narrative - Reported Includes: Medical History in patient's chart Description Last Updated No previous suicide attempt 07/24/2022 Last Documented On 3 12:17AM ; [facility] A recent examination by an ophthalmologi st 07/21/2022 07/23/2022 Last Documented On 3 2:32PM ; [facility] History of diabetes mellitus 07/23/2022 Last Documented On 3 2:32PM ; [facility] History of systemic hypertension 023 Last Documented On 3 2:32PM ; [facility] No previous hospitalizations 07/23/2022 Last Documented On 3 2:32PM ; [facility] Recent immunization for flu 07/23/2022 Last Documented On 3 2:32PM ; [facility] Work Phone: 1(353) 433-493903-07-2023 History general Narrative - Reported Includes: Medical History in patient's chart Description Last Updated No previous suicide attempt 07/24/2022 Last Documented On 3 12:17AM ; [facility] A recent examination by an ophthalmologi st 07/21/2022 07/23/2022 Last Documented On 3 2:32PM ; [facility] History of diabetes mellitus 07/23/2022 Last Documented On 3 2:32PM ; [facility] History of systemic hypertension 023 Last Documented On 3 2:32PM ; [facility] No previous hospitalizations 07/23/2022 Last Documented On 3 2:32PM ; [facility] Recent immunization for flu 07/23/2022 Last Documented On 3 2:32PM ; [facility] Work Phone: 1([phone]) [phone] History general Narrative - Reported Includes: Medical History in patient's chart Description Last Updated No previous suicide attempt 07/24/2022 Last Documented On 3 12:17AM ; [facility] A recent examination by an ophthalmologi st 07/21/2022 07/23/2022 Last Documented On 3 2:32PM ; [facility] History of diabetes mellitus 07/23/2022 Last Documented On 3 2:32PM ; [facility] History of systemic hypertension 023 Last Documented On 3 2:32PM ; [facility] No previous hospitalizations 07/23/2022 Last Documented On 3 2:32PM ; [facility] Recent immunization for flu 07/23/2022 Last Documented On 3 2:32PM ; [facility] Work Phone: [phone]) 617-455603-07-2023 History general Narrative - Reported Includes: Medical History in patient's chart Description Last Updated No previous suicide attempt 07/24/2022 Last Documented On 3 12:17AM ; [facility] A recent examination by an ophthalmologi st 07/21/2022 07/23/2022 Last Documented On 3 2:32PM ; [facility] History of diabetes mellitus 07/23/2022 Last Documented On 3 2:32PM ; [facility] History of systemic hypertension 023 Last Documented On 3 2:32PM ; [facility] No previous hospitalizations 07/23/2022 Last Documented On 3 2:32PM ; [facility] Recent immunization for flu 07/23/2022 Last Documented On 3 2:32PM ; [facility] Work Phone: 1(222) 349-999803-06-2023 Evaluation note Includes: Assessments for all patient encounters Findings Encounter Date Generalized anxiety disorder BH Established Shirley ent with Cinthia Stone SALES SUPPORT CONSULTANT 07/23/2022 Last Documented On 3 1:10PM ; [facility] Intervention and counseling on cessation of tobacco use, 3-10 minutes Discussed medication and nicotine replacement for tobacco cessation BH Established Patient with Cinthia Stone SALES SUPPORT CONSULTANT 07/23/2022 Last Documented On 3 1:10PM ; [facility] Moderate recurrent major depression BH E stablished Patient with Cinthia Stone SALES SUPPORT CONSULTANT 07/23/2022 Last Documented On 3 1:10PM ; [facility] Nicotine dependence BH Established Patient with Cinthia Stone SALES SUPPORT CONSULTANT 07/23/2022 Last Documented On 3 1:10PM ; [facility] Primary insomnia BH Established Patient with Deysi Farfan SALES SUPPORT CONSULTANT 07/23/2022 Last Documented On 3 1:10PM ; [facility] [Z68.36 - Body mass index [B IL] 36.0-36.9, adult] assessment of body mass index Medical New Patient with Latia Sparks GENERAL PEDIATRICIAN 07/23/2022 Last Documented On 3 2:32PM ; [facility] Diabetes Risk Test Score was nine score 07/23/2022 Medical New Patient with Latia Sparks GENERAL PEDIATRICIAN 07/23/2022 Last Documented On 3 2:32PM ; [facility] Intervention and counseling on cessation of tobacco use, 3-10 minutes Discussed medication and nicotine replacement for tobacco cessation Medical New Patient with Latia Sparks GENERAL PEDIATRICIAN 07/23/2022 Last Documented On 3 2:32PM ; [facility] Screening for Hep C Medical New Patient with Nad yelitza Bridger GENERAL PEDIATRICIAN 07/23/2022 Last Documented On 3 2:32PM ; [facility] Screening for HIV Medical New Patient with Hiren Sparks GENERAL PEDIATRICIAN 07/23/2022 Last Documented On 3 2:32PM ; [facility] Venipuncture was performed Medical New Patient w dmitry Sparks GENERAL PEDIATRICIAN 07/23/2022 Last Documented On 3 2:32PM ; [facility] Visit for routine adult H&P without abnormal findings Medical New Patient with Latia Sparks GENERAL PEDIATRICIAN 07/23/2022 Last Documented On 3 2:32PM ; [facility] Work Phone: [phone]) [phone] Evaluation note Includes: Assessments for all patient encounters Findings Encounter Date Generalized anxiety disorder BH Established Shirley ent with Cinthia Farfan SALES SUPPORT CONSULTANT 07/23/2022 Last Documented On 3 12:17AM ; [facility] Intervention and counseling on cessation of tobacco use, 3-10 minutes Discussed medication and nicotine replacement for tobacco cessation BH Established Patient with Cinthia Stone SALES SUPPORT CONSULTANT 07/23/2022 Last Documented On 3 12:17AM ; [facility] Moderate recurrent major depression E stablished Patient with Cinthia Farfan SALES SUPPORT CONSULTANT 07/23/2022 Last Documented On 3 12:17AM ; [facility] Nicotine dependence Established Patient with Cinthia Stone SALES SUPPORT CONSULTANT 07/23/2022 Last Documented On 3 12:17AM ; [facility] Primary insomnia Established Patient with Deysi pugh Stone SALES SUPPORT CONSULTANT 07/23/2022 Last Documented On 3 12:17AM ; [facility] [Z68.36 - Body mass index [B IL] 36.0-36.9, adult] assessment of body mass index Medical New Patient with Latia Sparks GENERAL PEDIATRICIAN 07/23/2022 Last Documented On 3 2:32PM ; [facility] Diabetes Risk Test Score was nine score 07/23/2022 Medical New Patient with Latia Sparks GENERAL PEDIATRICIAN 07/23/2022 Last Documented On 3 2:32PM ; [facility] Intervention and counseling on cessation of tobacco use, 3-10 minutes Discussed medication and nicotine replacement for tobacco cessation Medical New Patient with Latia Sparks GENERAL PEDIATRICIAN 07/23/2022 Last Documented On 3 2:32PM ; [facility] Screening for Hep C Medical New Patient with Nad yelitza Hoffmanim GENERAL PEDIATRICIAN 07/23/2022 Last Documented On 3 2:32PM ; [facility] Screening for HIV Medical New Patient with Hiren kathryn Hoffmanim GENERAL PEDIATRICIAN 07/23/2022 Last Documented On 3 2:32PM ; [facility] Venipuncture was performed Medical New Patient w dmitry Sparks GENERAL PEDIATRICIAN 07/23/2022 Last Documented On 3 2:32PM ; [facility] Visit for routine adult H&P without abnormal findings Medical New Patient with Latia Hoffmanim GENERAL PEDIATRICIAN 07/23/2022 Last Documented On 3 2:32PM ; [facility] Work Phone: [phone]) [phone] Progress note* Progress note Date Encounter Last Documented by 07/23/2022 Medical New Patient Last sydni elkins on 07/23/2022; 2:32 PM, Latia Sparks [facility]; [facility] Active Problems & Conditions - E11.610 [...] female presented to established care. Resides at [facility]. Medical history is significant for diabetes [...] previous hospitalizations. A recent examination by an wrapper layer and examiner soft work 07/21/2022. Immunization History: Recent immunization for flu. [...] BP-Sitting R168/92 mmHg BP Cuff SizeLarge Pulse Rate-Rmplimw043 bpm Pulse RhythmRegular Respiration Rate21 per min Temp-Oral98.3 F Wvudky49 in Paupat185 lbs Body Mass Index36 kg/m2 Body Surface Area2 m2 Oxygen Gmoyuvrlas68 % O2 DeviceNone (Room Air) FuN483 % - Vitals taken 07/23/2022 01:38 pm [...] 60 years or older (3 points) [Pre-DM]. [facility]03-06-2023 Progress note* Progress note Date Encounter Last Documented by 07/23/2022 Established Patient Last docu mented on 07/24/2022; 12:17 AM, Cinthia PARRISH; [facility] Active Problems & Conditions - E11.610 - [...] compliant and implementing healthy coping skills Subjective [facility] reviewed PHQ-9 score of 9 and [...] to stop smoking offered Quit Line information [facility] introduced [facility] to [facility] integrated model of care. P offered active [...] Implement healthy lifestyle coping skills like discussed. [facility] to follow-up with patient at next [...] needed clothing: No, unable to get needed child attendant: No, unable to get needed phone: [...] + 0 pt : Not at all. [facility]03-06-2023 Progress note* Progress note Date Encounter Last Documented by 07/23/2022 Established Patient Last docu mented on 07/24/2022; 12:17 AM, Cinthia FRIED; [facility] Active Problems & Conditions - E11.610 - [...] Quit Line information P introduced patient to [facility] integrated model of care. [facility] offered [...] needed clothing: No, unable to get needed child attendant: No, unable to get needed phone: [...] + 0 pt : Not at all. [facility]03-06-2023 Reason for referral (narrative)* Date Encounter Description Provider Reason for Referral 07/23/22 Established Patient Cinthia PARRISH Referral To Mental Health Team [facility] Work Phone: 1([phone]) 454-742803-06-2023 Reason for referral (narrative)* Date Encounter Description Provider Reason for Referral 07/23/22 Established Patient Cinthia PARRISH- S Referral To Mental Health Team [facility] Work Phone: [phone]) 408-148903-06-2023 Instructions Includes: Instructions for all patient encounters Instructions to patient Intervention and counseling on cessation of tobacco use, 3-10 minutes Discussed medication and nicotine replacement for tobacco cessation Last Documented On 3 1:02PM ; [facility] Intervention and counseling on cessation of tobacco use, 3-10 minutes Discussed medication and nicotine replacement for tobacco cessation Last Documented On 3 1:13PM ; [facility] Education and Decision Aids were provided during visit for: Discussed nutritional needs 36 teach healthy choices including fruits and vegetables Last Documented On 3 12:20PM ; [facility] Patient education about a pr oper diet 36 Last Documented On 3 12:20PM ; [facility] Discussed concerns about exe rcise : promote physical activity Last Documented On 3 12:20PM ; [facility] Referred Patient to a Diabet es Self-Management Program Last Documented On 3 1:46PM ; [facility] Work Phone: 1([phone]) 450-472603-06-2023 Instructions Includes: Instructions for all patient encounters Instructions to patient Intervention and counseling on cessation of tobacco use, 3-10 minutes Discussed medication and nicotine replacement for tobacco cessation Last Documented On 3 1:02PM ; [facility] Intervention and counseling on cessation of tobacco use, 3-10 minutes Discussed medication and nicotine replacement for tobacco cessation Last Documented On 3 1:13PM ; [facility] Education and Decision Aids were provided during visit for: P introduced patient to [facility] integrated model of care. ~P offered active and supportive listening, normalized emotions and feelings, and processed current stressors. ~Discussed healthy coping skills and positive supports in patient's life. ~Discussed healthy lifestyle behaviors. ~ Last Documented On 3 12:10AM ; [facility] Discussed nutritional needs 36 teach healthy choices including fruits and vegetables Last Documented On 3 12:20PM ; [facility] Patient education about a pr oper diet 36 Last Documented On 3 12:20PM ; [facility] Discussed concerns about exe rcise : promote physical activity Last Documented On 3 12:20PM ; [facility] Referred Patient to a Diabet es Self-Management Program Last Documented On 3 1:46PM ; [facility] Work Phone: 1([phone]) [phone] History general Narrative - Reported Includes: Medical History in patient's chart Description Last Updated A recent examination by an ophthalmologi st 07/21/2022 07/23/2022 Last Documented On 3 2:32PM ; [facility] History of diabetes mellitus 07/23/2022 Last Documented On 3 2:32PM ; [facility] History of systemic hypertension 023 Last Documented On 3 2:32PM ; [facility] No previous hospitalizations 07/23/2022 Last Documented On 3 2:32PM ; [facility] Recent immunization for flu 07/23/2022 Last Documented On 3 2:32PM ; [facility] Work Phone: 1([phone]) 429-234602-28-2023 NoteCONSULTATION CONSULTATION DATE: 07/17/2022 TO: Dr. Prado [...] as tolerated. To reduce the use of [place] from 5 mg pills q.i.d. to 5 mg pill one b.i.d. as tolerated. Again, I have requested physical therapy for the patient as well. I have gone over the details with the patient. All her questions answered. She agreed to proceed with the outlined plan.[id number] Evaluation note* Encounter Date Diagnosis Assessment Notes [...] understanding and is agreeable to treatment plan [employer] Other Evaluation noteNo assessment information available [facility] Work Phone: Evaluation note Includes: Assessments for all patient encounters Findings Encounter Date [Z68.36 - Body mass index [B IL] 36.0-36.9, adult] assessment of body mass index Medical Established Patient with Latia Hoffmanim GENERAL PEDIATRICIAN 08/02/2022 Last Documented On 3 1:35PM ; [facility] Intervention and counseling on cessation of tobacco use, 3-10 minutes Discussed medication and nicotine replacement for tobacco cessation Medical Established Patient with Latia Sparks GENERAL PEDIATRICIAN 08/02/2022 Last Documented On 3 1:35PM ; [facility] Visit for: person consulting for explanation of examination or test findings Medical Established Patient with Latia Sparks GENERAL PEDIATRICIAN 08/02/2022 Last Documented On 3 1:35PM ; [facility] Generalized anxiety disorder Established Shirley ent with Cinthia Farfan SALES SUPPORT CONSULTANT 07/23/2022 Last Documented On 3 12:17AM ; [facility] Intervention and counseling on cessation of tobacco use, 3-10 minutes Discussed medication and nicotine replacement for tobacco cessation Established Patient with Cinthia Stone SALES SUPPORT CONSULTANT 07/23/2022 Last Documented On 3 12:17AM ; [facility] Moderate recurrent major depression E stablished Patient with Cinthia Stone SALES SUPPORT CONSULTANT 07/23/2022 Last Documented On 3 12:17AM ; [facility] Nicotine dependence Established Patient with Cinthia Stone SALES SUPPORT CONSULTANT 07/23/2022 Last Documented On 3 12:17AM ; [facility] Primary insomnia Established Patient with Deysi pugh Stone SALES SUPPORT CONSULTANT 07/23/2022 Last Documented On 3 12:17AM ; [facility] [Z68.36 - Body mass index [B IL] 36.0-36.9, adult] assessment of body mass index Medical New Patient with Latia Saprks GENERAL PEDIATRICIAN 07/23/2022 Last Documented On 3 2:32PM ; [facility] Diabetes Risk Test Score was nine score 07/23/2022 Medical New Patient with Latia Sparks GENERAL PEDIATRICIAN 07/23/2022 Last Documented On 3 2:32PM ; [facility] Intervention and counseling on cessation of tobacco use, 3-10 minutes Discussed medication and nicotine replacement for tobacco cessation Medical New Patient with Latia Sparks GENERAL PEDIATRICIAN 07/23/2022 Last Documented On 3 2:32PM ; [facility] Screening for Hep C Medical New Patient with Nad yelitza Sparks GENERAL PEDIATRICIAN 07/23/2022 Last Documented On 3 2:32PM ; [facility] Screening for HIV Medical New Patient with Hiren Sparks GENERAL PEDIATRICIAN 07/23/2022 Last Documented On 3 2:32PM ; [facility] Venipuncture was performed Medical New Patient w dmitry Sparks GENERAL PEDIATRICIAN 07/23/2022 Last Documented On 3 2:32PM ; [facility] Visit for routine adult H&P without abnormal findings Medical New Patient with Latia Sparks GENERAL PEDIATRICIAN 07/23/2022 Last Documented On 3 2:32PM ; [facility] Work Phone: Evaluation note Includes: Assessments for all patient encounters Findings Encounter Date [Z68.36 - Body mass index [B IL] 36.0-36.9, adult] assessment of body mass index Medical Established Patient with Latia Sparks GENERAL PEDIATRICIAN 08/02/2022 Last Documented On 3 1:36PM ; [facility] Intervention and counseling on cessation of tobacco use, 3-10 minutes Discussed medication and nicotine replacement for tobacco cessation Medical Established Patient with Latia Sparks GENERAL PEDIATRICIAN 08/02/2022 Last Documented On 3 1:36PM ; [facility] Visit for: person consulting for explanation of examination or test findings Medical Established Patient with Latia Sparks GENERAL PEDIATRICIAN 08/02/2022 Last Documented On 3 1:36PM ; [facility] Generalized anxiety disorder BH Established Shirley ent with Cinthia Stone SALES SUPPORT CONSULTANT 07/23/2022 Last Documented On 3 12:17AM ; [facility] Intervention and counseling on cessation of tobacco use, 3-10 minutes Discussed medication and nicotine replacement for tobacco cessation BH Established Patient with Cinthia Stone SALES SUPPORT CONSULTANT 07/23/2022 Last Documented On 3 12:17AM ; [facility] Moderate recurrent major depression BH E stablished Patient with Cinthia Stone SALES SUPPORT CONSULTANT 07/23/2022 Last Documented On 3 12:17AM ; [facility] Nicotine dependence BH Established Patient with Cinthia Stone SALES SUPPORT CONSULTANT 07/23/2022 Last Documented On 3 12:17AM ; [facility] Primary insomnia BH Established Patient with Deysi Farfan SALES SUPPORT CONSULTANT 07/23/2022 Last Documented On 3 12:17AM ; [facility] [Z68.36 - Body mass index [B IL] 36.0-36.9, adult] assessment of body mass index Medical New Patient with Latia Sparks GENERAL PEDIATRICIAN 07/23/2022 Last Documented On 3 2:32PM ; [facility] Diabetes Risk Test Score was nine score 07/23/2022 Medical New Patient with Latia Bridger GENERAL PEDIATRICIAN 07/23/2022 Last Documented On 3 2:32PM ; [facility] Intervention and counseling on cessation of tobacco use, 3-10 minutes Discussed medication and nicotine replacement for tobacco cessation Medical New Patient with Latia Bridger GENERAL PEDIATRICIAN 07/23/2022 Last Documented On 3 2:32PM ; [facility] Screening for Hep C Medical New Patient with Nad yelitza Bridger GENERAL PEDIATRICIAN 07/23/2022 Last Documented On 3 2:32PM ; [facility] Screening for HIV Medical New Patient with Hiren a Sparks GENERAL PEDIATRICIAN 07/23/2022 Last Documented On 3 2:32PM ; [facility] Venipuncture was performed Medical New Patient w dmitry Sparks GENERAL PEDIATRICIAN 07/23/2022 Last Documented On 3 2:32PM ; [facility] Visit for routine adult H&P without abnormal findings Medical New Patient with Latiakathryn Sparks GENERAL PEDIATRICIAN 07/23/2022 Last Documented On 3 2:32PM ; [facility] Work Phone: History general Narrative - Reported* Type Description Date Medical History diabetes Medical History htn Medical History depression Medical History neuropathy Medical History Yelp Other History general Narrative - Reported Includes: Medical History in patient's chart Description Last Updated No previous suicide attempt 07/24/2022 Last Documented On 3 12:17AM ; [facility] A recent examination by an ophthalmologi st 07/21/2022 07/23/2022 Last Documented On 3 2:32PM ; [facility] History of diabetes mellitus 07/23/2022 Last Documented On 3 2:32PM ; [facility] History of systemic hypertension 023 Last Documented On 3 2:32PM ; [facility] No previous hospitalizations 07/23/2022 Last Documented On 3 2:32PM ; [facility] Recent immunization for flu 07/23/2022 Last Documented On 3 2:32PM ; [facility] Work Phone: History of Present illness Narrative History of Present Illness not supported for this document type No History of Present Illness RecordedF[facility] Work Phone: Instructions* Name Dates Details Instructions not documented [facility] DO Work Phone: Patient problem outcome Narrative Includes: Evaluations & Outcomes for active Goals No Outcomes RecordedForsyth [facility] Work Phone: Progress note* Progress note Date Encounter Last Documented by 08/02/2022 Medical Established Patient Last documented on 08/02/2022; 1:35 PM, Latia MAYORGA; [facility] Active Problems & Conditions - E11.610 - [...] results, Pt needs tresiba prescribed to the [facility] just for today. Referred Here No [...] has been provided. The patient lives a senior care, where food is cooking. Denies any craving [...] previous hospitalizations. A recent examination by an wrapper layer and examiner soft work 07/21/2022. Immunization History: Recent immunization for flu. [...] BP-Sitting R138/82 mmHg BP Cuff SizeLarge Pulse Rate-Lshnnhw80 bpm Pulse RhythmRegular Respiration Rate18 per min Temp-Whmlegfe38.5 F Xsarai59 in Kebbeh278 lbs Body Mass Index36.7 kg/m2 Body Surface Area2 m2 Oxygen Bcoqikyrug43 % O2 DeviceNone (Room Air) CrS430 % General Appearance: - Awake. - Alert. [...] and diastolic 80-89 mmHg diastolic 80-89 mmHg. [facility] Narrative - Reported Review of Systems not supported for this document type No Review of Systems RecordedForsyth [facility] Work Phone: Summary Purpose Family History Grandmother Name Dates Details Family history of cerebrovas cular accident (CVA)(V17.1, Z82.3) Status:Active Father Name Dates Details Family history of lung cance r(V16.1, Z80.1) Status:Active Description Last Updated Maternal history of type 1 diabetes pilar itus 07/23/2022 Last Documented On 3 2:32PM ; [facility] Description Last Updated Maternal history of type 1 diabetes pilar itus 07/23/2022 Last Documented On 3 2:32PM ; [facility] Description Last Updated Maternal history of type 1 diabetes pilar itus 07/23/2022 Last Documented On 3 2:32PM ; [facility] Description Last Updated Maternal history of type 1 diabetes pilar itus 07/23/2022 Last Documented On 3 2:32PM ; [facility] Description Last Updated Maternal history of type 1 diabetes pilar itus 07/23/2022 Last Documented On 3 2:32PM ; [facility] Description Last Updated Maternal history of type 1 diabetes pilar itus 07/23/2022 Last Documented On 3 2:32PM ; [facility] Description Last Updated Maternal history of type 1 diabetes pilar itus 07/23/2022 Last Documented On 3 2:32PM ; [facility] Description Last Updated Maternal history of type 1 diabetes pilar itus 07/23/2022 Last Documented On 3 2:32PM ; [facility] Description Last Updated Maternal history of type 1 diabetes pilar itus 07/23/2022 Last Documented On 3 2:32PM ; [facility] Advance Directives No Advanced Directives Records FoundNo [...] section and content) DATE CREATED AUTHOR 03/14/2018 [facility] DATE CREATED AUTHOR AUTHOR'S ORGANIZ ATION 05/28/2018 [facility] ([place]) DATE CREATED AUTHOR AUTHOR'S ORGANIZ ATION 02/05/2019 [facility] DATE CREATED AUTHOR AUTHOR'S ORGANIZ ATION 02/28/2019 [facility] DATE CREATED AUTHOR AUTHOR'S ORGANIZ ATION 03/25/2019 [facility] DATE CREATED AUTHOR AUTHOR'S ORGANIZ ATION 01/16/2022 [facility] DATE CREATED AUTHOR AUTHOR'S ORGANIZ ATION 07/13/2022 [facility] DATE CREATED AUTHOR AUTHOR'S ORGANIZ ATION 09/30/2022 [facility] DATE CREATED AUTHOR AUTHOR'S ORGANIZ ATION 11/11/2022 [facility] Care Teams (unrecognized sec tion and [...] or prosecute any alcohol or drug abuse patient.[facility] FOR RECORDS PERTAINING TO PATIENTS [...] BE BASED ON THE PRIMARY CLINICAL RECORDS. [facility] [employer] [facility]. provides no warranty or guarantee of the accuracy or completeness of information in this document.
--- OUTSIDE RECORDS SUMMARY | 2023-05-07 20:22 | XMS_ITS | CCD ---
Author Name Unknown Address [address] [place] [address] Organization [facility] Care Team Providers Care Advertising Account Representative Name Role Phone Morgan Barcenas Unavailable Unavailable PROVIDER, UNKNOWN Unavailable Unavailable Ahmed, Ilia Unavailable Unavailable Morgan Barcenas Unavailable Unavailable PROVIDER, UNKNOWN Unavailable Unavailable Ahmed, Ilia Unavailable Unavailable STIVEN ANDINO Unavailable Unavailable Unknown, Referring Provider Unavailable Unav ailable Leah Brock Unavailable Unavailable Ahmed, Ilia Unavailable Unavailable MD Constantine Hernandez Attending Provider Isidra Hernandez Unavailable Sparks AUTOMOTIVE BRAKE TECHNICIAN, Latia Attending Unavailable Sparks AUTOMOTIVE BRAKE TECHNICIAN, Latia Primary Care Provider Unavailable Primary Care Provider Unavailabl e Sparks AUTOMOTIVE BRAKE TECHNICIAN, Latia Primary Care Provider MISC, DR BECERRA Admitting Unavailable MISC, DR BECERRA Attending Unavailable NADCLAUDIO GERALDO A Primary Care Unavailable MISC, DR BECERRA Consulting Unavailable MISC, DR BECERRA Admitting Unavailable MISC, DR BECERRA Attending Unavailable JOHAN GERALDO A Primary Care Unavailable MISC, DR BECERRA Consulting Unavailable JHOAN GERALDO A Primary Care Unavailable LAKSHMIPATHY ., [...] Anti-Epileptic Agents (1 source) topiramate Drug Allergy [facility] Work Phone: Penicillins (antibiotic) (1 source) Penicillins; Translations: [Penicillins] Drug Allergy [facility] Work Phone: (2 sources) Haloperidol; Translations: [Haldol] Drug Allergy 0 Unknown [facility] Repository (1 source) Penicillin V Drug Allergy Unknown [employer] Other (1 source) Thioridazine Drug Allergy Unknown [employer] Other (1 source) topiramate Drug Allergy Unknown [employer] Other (1 source) Tai Flavor Drug allergy Unknown [employer] Other (4 sources) tai allergenic extract Drug Allergy 0 Hives / Urticaria, Shock [facility] Repository (1 source) Penicillin Drug Allergy 0 [facility] Repository (4 sources) topiramate Drug Allergy 0 [facility] Repository (3 sources) Penicillins Allergy to substance 3 Hives / Urticaria [facility] (3 sources) Thioridazine Drug Allergy 3 [facility] Medications Current Medications Medication Drug Class(es) [...] Oral Ca psule 07/23/2022 - 08/02/2022 Provider: Laita MAYORGA Fluoxetine Activ e fluticasone propionate 0.05 [...] t 12/18/2022 - 11/15/2022 Provider: Latia Sparks AUTOMOTIVE BRAKE TECHNICIAN Start: 12-18-2022 End: 11-15-2022 Gabapentin 600 MG Oral Table t 12/18/2022 - 11/15/2022 Provider: Latia Hoffmanim AUTOMOTIVE BRAKE TECHNICIAN Start: 08-22-2022 End: 11-15-2022 Gabapentin 600 MG Oral Table t 08/22/2022 - 11/15/2022 Provider: Latia GREENP Start: 07-03-2022 End: 08-02-2022 Gabapentin 600 MG Oral Table t 07/23/2022 - 08/02/2022 Provider: Latia Sparks AUTOMOTIVE BRAKE TECHNICIAN Gabapentin Activ e Gabapentin 600 M G Oral Tablet Refills: 0 Active hydrALAZINE hydrochloride 25 mg oral tablet (19 sources) Arteriolar Vasodilator Start: 02-06-2023 hydrALAZINE HCl 25 M G Oral Tablet 02/06/2023 Provider: Latia GREENP Start: 09-09-2022 End: 11-15-2022 hydrALAZINE HCl 25 MG Oral T ablet 11/08/2022 - 11/15/2022 Provider: Latia Sparks AUTOMOTIVE BRAKE TECHNICIAN Start: 09-09-2022 End: 08-02-2022 hydrALAZINE HCl 25 [...] Refills: 0 Active Dextromethorphan (1 source) Uncompetitive A-msehaz-I-aspartate Receptor Antagonist, Sigma-1 Agonist DexAlone CAPS Refills: [...] unspecified] Onset: 01-08-2018 Other aftercare (1 source) nursing home (current) use of insulin; Translations: [HALFWAY CURRENT USE OF INSULIN] Onset: 09-27-2022 Episodic [...] 2022 Albumin [Mass/Vol] 4.3 g/dL Normal 3.5-5.2 [facility] Comment on above: Performed By: #### L IPR, CP #### [facility] [address] [place] [phone] Seed Ye[employer] Operator: Genaro Angel MD Albumin/Glob Ratio 1.5 Normal 1.0-2.5 [facility] Comment on above: Performed By: #### L IPR, CP #### [facility] [address] [place] [phone] Seed Ye[employer] Operator: Genaro Angel MD Alkaline Phos 116 U/L High 35-104 [facility] Comment on above: Performed By: #### L IPR, CP #### [address] [address] [employer] Operator: Genaro Angel MD ALT [Catalytic activity/Vol] 25 U/L Normal 5-33 [facility] Comment on above: Performed By: #### L IPR, CP #### [address] [address] [employer] Operator: Genaro Angel MD Anion gap [Moles/Vol] 15 mmol/L Normal 9-17 [facility] Comment on above: Performed By: #### L IPR, CP #### [address] [address] Seed [employer] Operator: Genaro Angel MD AST [Catalytic activity/Vol] 32 U/L High <32 [facility] Comment on above: Performed By: #### L IPR, CP #### [facility] [address] [address] Seed Ye[employer] Operator: Genaro Angel MD Bilirubin [Mass/Vol] 0.2 mg/dL Low 0.3-1.2 [facility] Comment on above: Performed By: #### L IPR, CP #### [facility] [address] [place] [phone] Seed Ye[employer] Operator: Genaro Angel MD Calcium [Mass/Vol] 10.7 mg/dL High 8.6-10.4 [facility] Comment on above: Performed By: #### L IPR, CP #### [facility] [address] [place] [phone] Seed Yeast Operator: Genaro Angel MD Chloride [Moles/Vol] 102 mmol/L Normal 98-107 [facility] Comment on above: Performed By: #### L IPR, CP #### [facility] [address] [place] [phone] Seed Ye[employer] Operator: Genaro Angel MD CO2 [Moles/Vol] 23 mmol/L Normal 20-31 [facility] Comment on above: Performed By: #### L IPR, CP #### [address] [address] Seed Ye[employer] Operator: Genaro Angel MD Creatinine [Mass/Vol] 0.93 mg/dL High 0.50-0.90 [facility] Comment on above: Performed By: #### L IPR, CP #### [address] [address] Seed Ye[employer] Operator: Genaro Angel MD GFR/1.73 sq M.predicted dina g non-blacks MDRD (S/P/Bld) [Vol rate/Area] mL/min/{1.73_m2} Normal >60 [facility] Comment on above: Result Comment: These results [...] Performed By: #### L IPR, CP #### [address] [address] Seed Ye[employer] Operator: Genaro Angel MD Glucose [Mass/Vol] 138 mg/dL High 70-99 [facility] Comment on above: Performed By: #### L IPR, CP #### [address] [address] [employer] Ye[employer] Operator: Genaro Angel MD Potassium [Moles/Vol] 5.3 mmol/L Normal 3.7-5.3 [facility] Comment on above: Performed By: #### L IPR, CP #### [address] [address] Seed Ye[employer] Operator: Genaro Angel MD Protein [Mass/Vol] 7.1 g/dL Normal 6.4-8.3 [facility] Comment on above: Performed By: #### L IPR, CP #### [address] [address] Seed Ye[employer] Operator: Genaro Angel MD Sodium [Moles/Vol] 140 mmol/L Normal 135-144 [facility] Comment on above: Performed By: #### L IPR, CP #### [address] [address] Seed Ye[employer] Operator: Genaro Angel MD Urea nitrogen [Mass/Vol] 26 mg/dL High 8-23 [facility] Comment on above: Performed By: #### L IPR, CP #### [address] [address] Seed Ye[employer] Operator: Genaro Angel MD Lipid Profileon 11-10-2022 Cholesterol [Mass/Vol] 152 mg/dL Normal <200 [facility] Comment on above: Result Comment: Cholesterol Guidelines: <200 Desirable 200-240 Borderline >240 Undesirable Performed By: #### L IPR, CP #### [address] [address] Seed Ye[employer] Operator: Genaro Angel MD Cholesterol in HDL [Mass/Vol] 30 mg/dL Low >40 [facility] Comment on above: Result Comment: HDL Guidelines: <40 Undesirable 40-59 Borderline >59 Desirable Performed By: #### L IPR, CP #### [address] [phone] Seed Yeast Operator: Genaro Angel MD Cholesterol in LDL [Mass/Vol] 44 mg/dL Normal 0-130 [facility] Comment on above: Result Comment: LDL Guidelines: <100 Desirable 100-129 Near to/above Desirable 130-159 Borderline >159 Undesirable Direct (measured) LDL and calculated LDL are not interchangeable tests. Performed By: #### L IPR, CP #### [facility] [employer] [address] [place] [phone] Seed Ye[employer] Operator: Genaro Angel MD Cholesterol.total/Cholestero l in HDL [Mass ratio] 5.1 {ratio} High <5 [facility] Comment on above: Performed By: #### L IPR, CP #### [address] [phone] Seed Ye[employer] Operator: Genaro Angel MD Triglyceride [Mass/Vol] 390 mg/dL High <150 [facility] Comment on above: Result Comment: Triglyceride Guidelines: <150 Desirable 150-199 Borderline 200-499 High >499 Very high Based on AHA Guidelines for fasting triglyceride, February 2012. Performed By: #### L IPR, CP #### [address] [address] Seed Ye[employer] Operator: Genaro Angel MD Laboratory - Chemistry and C hemistry - challengeon 11-09-2022 Albumin [Mass/Vol] 4.3 g/dL (3.5-5.2 ) [facility] Comment on above: Note: Responsible Ob dining car server: CCEV AUTOFILE (3002) ALT [Catalytic activity/Vol] 25 U/L (5-33 ) [facility] Comment on above: Note: Responsible Ob dining car server: CCEV AUTOFILE (3002) Anion gap [Moles/Vol] 15 mmol/L (9-17 ) [facility] Comment on above: Note: Responsible Ob dining car server: CCEV AUTOFILE (3002) AST [Catalytic activity/Vol] 32 U/L High (<32 ) [facility] Comment on above: Note: Responsible Ob dining car server: CCEV AUTOFILE (3002) Bilirubin [Mass/Vol] 0.2 mg/dL Low (0.3-1.2 ) [facility] Comment on above: Note: Responsible Ob dining car server: CCEV AUTOFILE (3002) Calcium [Mass/Vol] 10.7 mg/dL High (8.6-10.4 ) [facility] Comment on above: Note: Responsible Ob dining car server: CCEV AUTOFILE (3002) Chloride [Moles/Vol] 102 mmol/L (98-107 ) [facility] Comment on above: Note: Responsible Ob dining car server: CCEV AUTOFILE (3002) Cholesterol [Mass/Vol] 152 mg/dL (<200 ) [facility] Comment on above: Note: Cholesterol Gu idelines:<200 Hahynqzxz175-182 Borderline>240 UndesirableResponsible Observer: CCEV AUTOFILE (3002) Cholesterol.total/Cholestero l in HDL [Mass ratio] 5.1 {ratio} High (<5 ) [facility] Comment on above: Note: Responsible Ob dining car server: CCEV AUTOFILE (3002) CO2 [Moles/Vol] 23 mmol/L (20-31 ) [facility] Comment on above: Note: Responsible Ob dining car server: CCEV AUTOFILE (3002) Creatinine [Mass/Vol] 0.93 mg/dL High (0.50-0.90 ) [facility] Comment on above: Note: Responsible Ob dining car server: CCEV AUTOFILE (3002) GFR/1.73 sq M.predicted dina g non-blacks MDRD (S/P/Bld) [Vol rate/Area] mL/min/{1.73_m2} (>60 ) [facility] Comment on above: Note: These results [...] Glucose [Mass/Vol] 138 mg/dL High (70-99 ) [facility] Comment on above: Note: Responsible Ob dining car server: CCEV AUTOFILE (3002) Magnesium [Mass/Vol] 30 mg/dL Low (>40 ) [facility] Comment on above: Note: HDL Guidelines :<40 Jvftbvkuxvp61-89 Borderline>59 DesirableResponsible Observer: CCEV AUTOFILE (3002) Magnesium [Mass/Vol] 44 mg/dL (0-130 ) [facility] Comment on above: Note: LDL Guidelines :<100 [id number] Near to/above [id number] Borderline>159 UndesirableDirect (measured) LDL and calculated LDL are not interchangeable tests.Responsible Observer: CCEV AUTOFILE (3002) Potassium [Moles/Vol] 5.3 mmol/L (3.7-5.3 ) [facility] Comment on above: Note: Responsible Ob dining car server: CCEV AUTOFILE (3002) Protein [Mass/Vol] 7.1 g/dL (6.4-8.3 ) [facility] Comment on above: Note: Responsible Ob dining car server: CCEV AUTOFILE (3002) Sodium [Moles/Vol] 140 mmol/L (135-144 ) [facility] Comment on above: Note: Responsible Ob dining car server: CCEV AUTOFILE (3002) Triglyceride [Mass/Vol] 390 mg/dL High (<150 ) [facility]: Note: Triglyceride G uidelines:<150 Kgvuhjabd059-022 [id number] High>499 Very highBased on AHA Guidelines for fasting triglyceride, February 2012.Responsible Observer: CCEV AUTOFILE (3002) Urea nitrogen [Mass/Vol] 26 mg/dL High (8-23 ) [facility] Comment on above: Note: Responsible Ob dining car server: CCEV AUTOFILE (3002) No Panel Informationon 11-09 Albumin/Glob Ratio 1.5 (1.0-2.5 ) [facility] Comment on above: Note: Responsible Ob dining car server: CCEV AUTOFILE (300) Alkaline Phos 116 U/L High (35-104 ) [facility] Comment on above: Note: Responsible Ob dining car server: CCEV AUTOFILE (1319) Reported Physicians See Note [facility] Comment on above: Note: Reported Physi cians:Ordering: Sparks, Latia OMARAttending: Sparks, NadiraReferring: Sparks, Latia CREATININE URINEon 3 URINE CREAT 31.31 mg/dL Normal 20.00-300.00 [facility] Comment on above: Performed By: #### C REAU #### [facility] [address] [place] [address] Dr. Shashi Jimenez MICROALBUMIN, [place] URon 09-17 mALB 14.3 mg/L Normal <=30.0 [facility] Comment on above: Performed By: #### M ALBR #### [facility] [address] [place] [address] Dr. Shashi Jimenez PROF 14(COMP METB)on 023 Albumin [Mass/Vol] 3.7 g/dL Normal 3.4-5.0 [facility] Comment on above: Performed By: #### C MP #### [facility] [address] [place] [address] Dr. Shashi Jimenez Albumin/Globulin [Mass ratio] 0.9 {ratio} Normal [facility] Comment on above: Performed By: #### C MP #### [facility] [address] [address] [address] Shashi Jimenez ALP [Catalytic activity/Vol] 109 U/L Normal 46-116 [facility] Comment on above: Performed By: #### C MP #### [facility] [address] [address] [address] Shashi Jimenez ALT [Catalytic activity/Vol] 39 U/L Normal 14-59 [facility] Comment on above: Performed By: #### C MP #### [facility] [address] [place] [address] Dr. Shashi Jimenez Anion gap [Moles/Vol] 12.0 mmol/L Normal [facility] Comment on above: Performed By: #### C MP #### [facility] [address] [address] [address] Shashi Jimenez AST [Catalytic activity/Vol] 35 U/L Normal 15-37 [facility] Comment on above: Performed By: #### C MP #### [facility] [address] [address] [address] Shashi iJmenez Bilirubin [Mass/Vol] 0.3 mg/dL Normal 0.2-1.0 [facility] Comment on above: Performed By: #### C MP #### [facility] [address] [address] [address] Shashi Jimenez Calcium [Mass/Vol] 10.5 mg/dL Critically high 8.5-10.[address] [facility] Comment on above: Performed By: #### C MP #### [facility] [address] [address] [address] Shashi Jimenez Chloride [Moles/Vol] 103 mmol/L Normal 98-107 [facility] Comment on above: Performed By: #### C MP #### [facility] [address] [address] [address] Shashi Jimenez CO2 [Moles/Vol] 29.1 mmol/L Normal 21.0-32.0 [facility] Comment on above: Performed By: #### C MP #### [facility] [address] [address] [address] Shashi Jimenez Creatinine [Mass/Vol] 1.04 mg/dL Critically high 0.55-1.02 [facility] Comment on above: Performed By: #### C MP #### [facility] [address] [address] [address] Shashi Jimenez EGFR-AF PARAGUAYAN >60 Normal >=60 [facility] Comment on above: Performed By: #### C MP #### [facility] [address] [address] [address] Shashi Jimenez EGFR-NON AF PARAGUAYAN 52 mL/min/1.73m2 Critically low >=60 [facility] Comment on above: Performed By: #### C MP #### [facility] [address] [address] [address] Shashi Jimenez Globulin (S) [Mass/Vol] 4.2 g/dL Normal [facility] Comment on above: Performed By: #### C MP #### [facility] [address] [address] [address] Shashi Jimenez Glucose [Mass/Vol] 258 mg/dL Critically high 74-[address] [facility] Comment on above: Performed By: #### C MP #### [facility] [address] [address] [address] Shashi Jimenez Potassium [Moles/Vol] 4.1 mmol/L Normal 3.5-5.1 [facility] Comment on above: Performed By: #### C MP #### [facility] [address] [address] [address] Shashi Jimenez Protein [Mass/Vol] 7.9 g/dL Normal 6.4-8.2 [facility] Comment on above: Performed By: #### C MP #### [facility] [address] [address] [address] Shashi Jimenez Sodium [Moles/Vol] 140 mmol/L Normal 136-145 [facility] Comment on above: Performed By: #### C MP #### [facility] [address] [address] [address] Shashi Jimenez Urea nitrogen [Mass/Vol] 23.0 mg/dL Critically high 7.0-18 .0 [facility] Comment on above: Performed By: #### C MP #### [facility] [address] [address] [address] Shashi Jimenez Urea nitrogen/Creatinine [Mass ratio] 22.1 mg/mg Normal [facility] Comment on above: Performed By: #### C MP #### [facility] [address] [address] [address] Shashi Jimenez POINT OF CARE GLUCOSEon 05-0 Glucose [Mass/Vol] 97 mg/dL Normal 74-106 [facility] Comment on above: Performed By: #### P OCGLUC #### [facility] [address] [address] [address] Shashi Jimenez POINT OF CARE GLUCOSEon 07-19 Glucose [Mass/Vol] 160 mg/dL Critically high 74-106 T [facility] Comment on above: Performed By: #### P OCGLUC #### [facility] [address] [address] [address] LSPINE WO CONon [...] by: ERIN BERMAN Date: 2022-07-27 16:56 Normal [facility] CBCon 07-24-2022 Erythrocyte distribution wid th (RBC) [Ratio] 14.1 % Normal 11.8-14.4 [facility] Comment on above: Performed By: #### I PF, TSHX, VD25, CBC, CP, LIPR #### [address] [address] Seed Ye[employer] Operator: Genaro Angel MD Hematocrit (Bld) [Volume fraction] 43.9 % Normal 36.3-47.1 [facility] Comment on above: Performed By: #### I PF, TSHX, VD25, CBC, CP, LIPR #### [address] [address] Seed Yeast Operator: Genaro Angel MD Hemoglobin (Bld) [Mass/Vol] 14.3 g/dL Normal 11.9-15. 1 [facility] Comment on above: Performed By: #### I PF, TSHX, VD25, CBC, CP, LIPR #### [place] [address] Seed Yeast Operator: Genaro Angel MD MCH (RBC) [Entitic mass] 30.5 pg Normal 25.2-33.5 [facility] Comment on above: Performed By: #### I PF, TSHX, VD25, CBC, CP, LIPR #### [address] [address] Seed Yeast Operator: Genaro Angel MD MCHC (RBC) [Mass/Vol] 32.6 g/dL Normal 28.4-34.8 [facility] Comment on above: Performed By: #### I PF, TSHX, VD25, CBC, CP, LIPR #### [address] [address] Seed Yeast Operator: Genaro Angel MD MCV (RBC) [Entitic vol] 93.6 fL Normal 82.6-102.9 [facility] Comment on above: Performed By: #### I PF, TSHX, VD25, CBC, CP, LIPR #### [address] [address] Seed Yeast Operator: Genaro Angel MD NRBC Automated 0.0 per 100 WBC Normal 0.0 [facility] Comment on above: Performed By: #### I PF, TSHX, VD25, CBC, CP, LIPR #### [address] [phone] Seed Yeast Operator: Genaro Angel MD Platelet Count See Reflexed IPF Result Normal 138-453 [facility] Comment on above: Performed By: #### I PF, TSHX, VD25, CBC, CP, LIPR #### [address] [phone] Seed Ye[employer] Operator: Genaro Angel MD RBC (Bld) [#/Vol] 4.69 10*6/uL Normal 3.95-5.11 [facility] Comment on above: Performed By: #### I PF, TSHX, VD25, CBC, CP, LIPR #### [address] [phone] Seed Ye[employer] Operator: Genaro Angel MD WBC (Bld) [#/Vol] 8.4 10*3/uL Normal 3.5-11.3 [facility] Comment on above: Performed By: #### I PF, TSHX, VD25, CBC, CP, LIPR #### [address] [phone] [employer] Operator: Genaro Angel MD Hematocrit (Bld) [Volume fraction] 43.9 % 36.3 - 47.1 % [facility] Hemoglobin (Bld) [Mass/Vol] 14.3 g/dL 11.9 - 15.1 g/dL [facility] MCH (RBC) [Entitic mass] 30.5 pg 25.2 - 33.5 pg [facility] MCHC (RBC) [Mass/Vol] 32.6 g/dL 28.4 - 34.8 g/ dL [facility] MCV (RBC) [Entitic vol] 93.6 fL 82.6 - 102.9 fL [facility] NRBC Automated 0.0 0.0 per 100 WBC [facility] Platelet distribution width (Bld) [Ratio] 14.1 % 11.8 - 14.4 % [facility] Platelets (Bld) [#/Vol] See Reflexed IPF Result [facility] RBC (Bld) [#/Vol] 4.69 10*6/uL 3.95 - 5.11 m/uL [facility] WBC (Bld) [#/Vol] 8.4 10*3/uL [facility] Comp Metabolic Profon 2022 Albumin [Mass/Vol] 4.3 g/dL Normal 3.5-5.2 [facility] Comment on above: Performed By: #### I PF, TSHX, VD25, CBC, CP, LIPR #### [facility] [employer] [address] [place] [address] [phone] Seed Yeast Operator: Genaro Angel MD Albumin/Glob Ratio 1.3 Normal 1.0-2.5 [facility] Comment on above: Performed By: #### I PF, TSHX, VD25, CBC, CP, LIPR #### [employer] [address] [place] [phone] Seed Yeast Operator: Genaro Angel MD Alkaline Phos 116 U/L High 35-104 [facility] Comment on above: Performed By: #### I PF, TSHX, VD25, CBC, CP, LIPR #### [employer] [address] [place] [phone] Seed Yeast Operator: Genaro Angel MD ALT [Catalytic activity/Vol] 27 U/L Normal 5-33 [facility] Comment on above: Performed By: #### I PF, TSHX, VD25, CBC, CP, LIPR #### [employer] [address] [place] [address] [phone] Seed Yeast Operator: Genaro Angel MD Anion gap [Moles/Vol] 15 mmol/L Normal 9-17 [facility] Comment on above: Performed By: #### I PF, TSHX, VD25, CBC, CP, LIPR #### [facility] [employer] [address] [place] [phone] Seed Yeast Operator: Genaro Angel MD AST [Catalytic activity/Vol] 30 U/L Normal <32 [facility] Comment on above: Performed By: #### I PF, TSHX, VD25, CBC, CP, LIPR #### [facility] [employer] [address] [place] [phone] Seed Yeast Operator: Genaro Angel MD Bilirubin [Mass/Vol] 0.4 mg/dL Normal 0.3-1.2 [facility] Comment on above: Performed By: #### I PF, TSHX, VD25, CBC, CP, LIPR #### [facility] [employer] [address] [place] [phone] Seed Yeast Operator: Genaro Angel MD Calcium [Mass/Vol] 10.9 mg/dL High 8.6-10.4 [facility] Comment on above: Performed By: #### I PF, TSHX, VD25, CBC, CP, LIPR #### [facility] [employer] [address] [place] [id number] [employer] Operator: Genaro Angel MD Chloride [Moles/Vol] 100 mmol/L Normal 98-107 [facility] Comment on above: Performed By: #### I PF, TSHX, VD25, CBC, CP, LIPR #### [facility] [employer] [address] [place] [address] [phone] [employer] Operator: Genaro Angel MD CO2 [Moles/Vol] 20 mmol/L Normal 20-31 [facility] Comment on above: Performed By: #### I PF, TSHX, VD25, CBC, CP, LIPR #### [facility] [employer] [address] [place] [address] [phone] [employer] Operator: Genaro Angel MD Creatinine [Mass/Vol] 0.95 mg/dL High 0.50-0.90 [facility] Comment on above: Performed By: #### I PF, TSHX, VD25, CBC, CP, LIPR #### [facility] [employer] [address] [place] [address] [phone] [employer] Operator: Genaro Angel MD GFR/1.73 sq M.predicted dina g non-blacks MDRD (S/P/Bld) [Vol rate/Area] mL/min/{1.73_m2} Normal >60 [facility] Comment on above: Result Comment: These results [...] PF, TSHX, VD25, CBC, CP, LIPR #### [facility] [employer] [address] [place] [address] [phone] [employer] Operator: Genaro Angel MD Glucose [Mass/Vol] 259 mg/dL High 70-99 [facility] Comment on above: Performed By: #### I PF, TSHX, VD25, CBC, CP, LIPR #### [facility] [employer] [address] [place] [address] [phone] [employer] Operator: Genaro Angel MD Potassium [Moles/Vol] 4.7 mmol/L Normal 3.7-5.3 [facility] Comment on above: Performed By: #### I PF, TSHX, VD25, CBC, CP, LIPR #### [facility] [employer] [address] [place] [address] [phone] [employer] Operator: Genaro Angel MD Protein [Mass/Vol] 7.6 g/dL Normal 6.4-8.3 [facility] Comment on above: Performed By: #### I PF, TSHX, VD25, CBC, CP, LIPR #### [facility] [address] [place], [place] [phone] [employer] Operator: Genaro Angel MD Sodium [Moles/Vol] 135 mmol/L Normal 135-144 [facility] Comment on above: Performed By: #### I PF, TSHX, VD25, CBC, CP, LIPR #### [facility] [address] [place], [place] [phone] [employer] Operator: Genaro Angel MD Urea nitrogen [Mass/Vol] 33 mg/dL High 8-23 [facility] Comment on above: Performed By: #### I PF, TSHX, VD25, CBC, CP, LIPR #### [facility] [address] [place], [place] [phone] [employer] Operator: Genaro Angel MD Comprehensive Metabolic Pane [facility] 07-24-2022 Albumin [Mass/Vol] 4.3 g/dL 3.5 - 5.2 g/dL [facility] Albumin/Globulin [Mass ratio] 1.3 {ratio} 1.0 - 2.5 [facility] ALP [Catalytic activity/Vol] 116 U/L High 35 - 104 U/L [facility] ALT [Catalytic activity/Vol] 27 U/L 5 - 33 U/L [facility] Anion gap [Moles/Vol] 15 mmol/L 9 - 17 mmol/L [facility] AST [Catalytic activity/Vol] 30 U/L NINF - 32 U/L [facility] Bilirubin [Mass/Vol] 0.4 mg/dL 0.3 - 1.2 mg/dL [facility] Calcium [Mass/Vol] 10.9 mg/dL High 8.6 - 10.4 mg/dL [facility] Chloride [Moles/Vol] 100 mmol/L 98 - 107 mmol/L [facility] CO2 [Moles/Vol] 20 mmol/L 20 - 31 mmol/L [facility] Creatinine [Mass/Vol] 0.95 mg/dL High 0.50 - 0.90 mg /dL [facility] GFR/1.73 sq M.predicted MDRD (S/P/Bld) [Vol rate/Area] - PINF [facility] Comment on above: These results are [...] mg/dL High 70 - 99 mg/dL [facility] Potassium [Moles/Vol] 4.7 mmol/L 3.7 - 5.3 mmol /L [facility] Protein [Mass/Vol] 7.6 g/dL 6.4 - 8.3 g/dL [facility] Sodium [Moles/Vol] 135 mmol/L 135 - 144 mmol/L [facility] Urea nitrogen [Mass/Vol] 33 mg/dL High 8 - 23 mg/d L [facility] Immature Platelet Fractionon 07-24-2022 Platelet, Fluorescence 158 [facility] Comment on above: ORDERED BY LAB Platelet, Immature Fraction 4.5 % 1.1 - 10 .3 % [facility] Comment on above: ORDERED BY LAB [facility] Lipid Panelon 07-24-2022 Cholesterol [Mass/Vol] 153 mg/dL NINF - 200 mg /dL [facility] Comment on above: Cholesterol Guidelines: <200 Desirable 200-240 Borderline >240 Undesirable Cholesterol in HDL [Mass/Vol] 29 mg/dL Low 40 - P INF mg/dL [facility] Comment on above: HDL Guidelines: <40 Undesirable 40-59 Borderline >59 Desirable Cholesterol in LDL [Mass/Vol] 60 mg/dL 0 - 13 0 mg/dL [facility] Comment on above: LDL Guidelines: <100 Desirable 100-129 Near to/above Desirable 130-159 Borderline >159 Undesirable Direct (measured) LDL and calculated LDL are not interchangeable tests. Cholesterol.total/Cholestero l in HDL [Mass ratio] 5.3 {ratio} High NINF - 5 [facility] Triglyceride [Mass/Vol] 319 mg/dL High [facility] mg/dL [facility] Comment on above: Triglyceride Guidelines: <150 Desirable 150-199 Borderline 200-499 High >499 Very high Based on AHA Guidelines for fasting triglyceride, February 2012. Lipid Profileon 07-24-2022 Cholesterol [Mass/Vol] 153 mg/dL Normal <200 [facility] Comment on above: Result Comment: Cholesterol Guidelines: <200 Desirable 200-240 Borderline >240 Undesirable Performed By: #### I PF, TSHX, VD25, CBC, CP, LIPR #### [address] [phone] [employer] Operator: Genaro Angel MD Cholesterol in HDL [Mass/Vol] 29 mg/dL Low >40 [facility] Comment on above: Result Comment: HDL Guidelines: <40 Undesirable 40-59 Borderline >59 Desirable Performed By: #### I PF, TSHX, VD25, CBC, CP, LIPR #### [address] [id number] [employer] Operator: Genaro Angel MD Cholesterol in LDL [Mass/Vol] 60 mg/dL Normal 0-130 [facility] Comment on above: Result Comment: LDL Guidelines: <100 Desirable 100-129 Near to/above Desirable 130-159 Borderline >159 Undesirable Direct (measured) LDL and calculated LDL are not interchangeable tests. Performed By: #### I PF, TSHX, VD25, CBC, CP, LIPR #### [facility] [employer] [address] [place] [address] [phone] [employer] Operator: Genaro Angel MD Cholesterol.total/Cholestero l in HDL [Mass ratio] 5.3 {ratio} High <5 [facility] Comment on above: Performed By: #### I PF, TSHX, VD25, CBC, CP, LIPR #### [facility] [employer] [address] [place] [address] [phone] [employer] Operator: Genaro Angel MD Triglyceride [Mass/Vol] 319 mg/dL High <150 [facility] Comment on above: Result Comment: Triglyceride Guidelines: <150 Desirable 150-199 Borderline 200-499 High >499 Very high Based on AHA Guidelines for fasting triglyceride, February 2012. Performed By: #### I PF, TSHX, VD25, CBC, CP, LIPR #### [facility] [employer] [address] [place] [address] [phone] [employer]: Genaro Angel MD No Panel Informationon 07-24 Interpretation and review of laboratory results Abnormal [facility] PLT, Immature Fract.on 07-24 Platelet, Fluoresc. 158 k/uL Normal 138-453 [facility] Comment on above: Result Comment: ORDE RED BY LAB Performed By: #### I PF, TSHX, VD25, CBC, CP, LIPR #### [facility] [employer] [address] [place], [place] [phone] [employer] Operator: Genaro Angel MD PLT, Immature Fract. 4.5 % Normal 1.1-10.3 [facility] Comment on above: Result Comment: ORDE RED BY LAB Performed By: #### I PF, TSHX, VD25, CBC, CP, LIPR #### [address] [phone] [employer] Operator: Genaro Angel MD TSH w/reflex to FT4on 2022 Thyroid Stim. Horm. 1.50 uIU/mL Normal 0.30-5.00 [facility] Comment on above: Performed By: #### I PF, TSHX, VD25, CBC, CP, LIPR #### [facility] [employer] [address] [place] [address] [phone] [employer] Operator: Genaro Angel MD TSH with Reflexon 07-24-2022 TSH Qn 1.50 m[IU]/L [facility] Vitamin D 25 Hydroxyon 07-24 25-hydroxyvitamin D3 [Mass/Vol] 92.8 ng/mL 29.9 - PINF ng/mL [facility] Comment on above: Reference Range: Vitamin D status Range Deficiency <20 ng/mL Mild Deficiency 20-30 ng/mL Sufficiency 30-100 ng/mL Toxicity >100 ng/mL [facility] Vitamin D 25 OHon 07-24-2022 Vitamin D 25 OH 92.8 ng/mL Normal >29.9 [facility] Comment on above: Result Comment: Reference Range: Vitamin D status Range Deficiency <20 ng/mL Mild Deficiency 20-30 ng/mL Sufficiency 30-100 ng/mL Toxicity >100 ng/mL Performed By: #### I PF, TSHX, VD25, CBC, CP, LIPR #### [facility] [employer] [address] [place], [place] [phone] [employer] Operator: Genaro Angel MD Laboratory - Chemistry and C hemistry - challengeon 07-23-2022 Albumin [Mass/Vol] 4.3 g/dL (3.5-5.2 ) [facility] Comment on above: Note: Responsible Ob dining car server: [employer] (3002) ALT [Catalytic activity/Vol] 27 U/L (5-33 ) [facility] Comment on above: Note: Responsible Ob dining car server: [employer] (3002) Anion gap [Moles/Vol] 15 mmol/L (9-17 ) [facility] Comment on above: Note: Responsible Ob dining car server: [employer] (3002) AST [Catalytic activity/Vol] 30 U/L (<32 ) [facility] Comment on above: Note: Responsible Ob dining car server: [employer] (3002) Bilirubin [Mass/Vol] 0.4 mg/dL (0.3-1.2 ) [facility] Comment on above: Note: Responsible Ob dining car server: [employer] (3002) Calcium [Mass/Vol] 10.9 mg/dL High (8.6-10.4 ) [facility] Comment on above: Note: Responsible Ob dining car server: [employer] (3002) Chloride [Moles/Vol] 100 mmol/L (98-107 ) [facility] Comment on above: Note: Responsible Ob dining car server: [employer] (3002) Cholesterol [Mass/Vol] 153 mg/dL (<200 ) [facility] Comment on above: Note: Cholesterol Gu idelines:<200 [id number] Borderline>240 UndesirableResponsible Observer: [employer] (3002) Cholesterol.total/Cholestero l in HDL [Mass ratio] 5.3 {ratio} High (<5 ) [facility] Comment on above: Note: Responsible Ob dining car server: [employer] (3002) CO2 [Moles/Vol] 20 mmol/L (20-31 ) [facility] Comment on above: Note: Responsible Ob dining car server: [employer] (3002) Creatinine [Mass/Vol] 0.95 mg/dL High (0.50-0.90 ) [facility] Comment on above: Note: Responsible Ob dining car server: [employer] (3002) GFR/1.73 sq M.predicted dina g non-blacks MDRD (S/P/Bld) [Vol rate/Area] mL/min/{1.73_m2} (>60 ) [facility] Comment on above: Note: These results [...] Glucose [Mass/Vol] 259 mg/dL High (70-99 ) [facility] Comment on above: Note: Responsible Ob dining car server: [employer] (3002) Magnesium [Mass/Vol] 29 mg/dL Low (>40 ) [facility] Comment on above: Note: HDL Guidelines :<40 Bwuhponvqox80-43 Borderline>59 DesirableResponsible Observer: [employer] (3002) Magnesium [Mass/Vol] 60 mg/dL (0-130 ) [facility] Comment on above: Note: LDL Guidelines :<100 Iwexpnsbu655-328 Near to/above Kxqtmqkcq177-300 Borderline>159 UndesirableDirect (measured) LDL and calculated LDL are not interchangeable tests.Responsible Observer: [employer] (3002) Potassium [Moles/Vol] 4.7 mmol/L (3.7-5.3 ) [facility] Comment on above: Note: Responsible Ob dining car server: [employer] (3002) Protein [Mass/Vol] 7.6 g/dL (6.4-8.3 ) [facility] Comment on above: Note: Responsible Ob dining car server: [employer] (3002) Sodium [Moles/Vol] 135 mmol/L (135-144 ) [facility] Comment on above: Note: Responsible Ob dining car server: [employer] (3002) Triglyceride [Mass/Vol] 319 mg/dL High (<150 ) [facility] Comment on above: Note: Triglyceride G uidelines:<150 [id number] [id number] High>499 Very highBased on AHA Guidelines for fasting triglyceride, February 2012.Responsible Observer: [employer] (3002) Urea nitrogen [Mass/Vol] 33 mg/dL High (8-23 ) [facility] Comment on above: Note: Responsible Ob dining car server: [employer] (3002) Laboratory - Hematology and Cell countson 07-23-2022 Erythrocyte distribution wid th (RBC) [Ratio] 14.1 % (11.8-14.4 ) [facility] Comment on above: Note: Responsible Ob dining car server: JC UP (1219) Hematocrit (Bld) [Volume fraction] 43.9 % (36.3-47.1 ) [facility] Comment on above: Note: Responsible Ob dining car server: [employer] (1219) Hemoglobin (Bld) [Mass/Vol] 14.3 g/dL (11.9-15 .1 ) [facility] Comment on above: Note: Responsible Ob dining car server: [employer] (1219) MCH (RBC) [Entitic mass] 30.5 pg (25.2-33.5 ) [facility] Comment on above: Note: Responsible Ob dining car server: [employer] (1219) MCHC (RBC) [Mass/Vol] 32.6 g/dL (28.4-34.8 ) [facility] Comment on above: Note: Responsible Ob dining car server: [employer] (121) MCV (RBC) [Entitic vol] 93.6 fL (82.6-102.9 ) [facility] Comment on above: Note: Responsible Ob dining car server: [employer] (1218) RBC (Bld) [#/Vol] 4.69 10*6/uL (3.95-5.11 ) [facility] Comment on above: Note: Responsible Ob dining car server: [employer] (1218) WBC (Bld) [#/Vol] 8.4 10*3/uL (3.5-11.3 ) [facility] Comment on above: Note: Responsible Ob dining car server: [employer] (1218) No Panel Informationon 07-23 Albumin/Glob Ratio 1.3 (1.0-2.5 ) [facility] Comment on above: Note: Responsible Ob dining car server: [employer] (3002) Alkaline Phos 116 U/L High (35-104 ) [facility] Comment on above: Note: Responsible Ob dining car server: [employer] (3002) NRBC Automated 0.0 per_100_WBC (0.0 ) [facility] Comment on above: Note: Responsible Ob dining car server: [employer]C [employer] (1218) Platelet Count See Reflexed IPF Result k/uL (13 8-453 ) [facility] Comment on above: Note: Responsible Ob dining car server: [employer] (1218) Platelet, Fluoresc. 158 k/uL (138-453 ) [facility] Comment on above: Note: ORDERED BY LAB Responsible Observer: JC UP (1218) PLT, Immature Fract. 4.5 % (1.1-10.3 ) [facility] Comment on above: Note: ORDERED BY LAB Responsible Observer: JC UP (1218) Reported Physicians See Note [facility] Comment on above: Note: Reported Physi cians:Ordering: Sparks, Latia OMARAttending: Sparks, NadiraReferring: Latia Sparks Thyroid Stim. Horm. 1.50 uIU/mL (0.30-5.00 ) [facility] Comment on above: Note: Responsible Ob dining car server: EV [employer]OFILE (3002) Vitamin D 25 [place] 92.8 ng/mL (>29.9 ) [facility] Comment on above: Note: Reference Rang e:Vitamin D status RangeDeficiency <20 ng/mLMild Deficiency 20-30 ng/mLSufficiency 30-100 ng/mLToxicity >100 ng/mLResponsible Observer: CEE[employer] (3003) MICROALB CREAT RATIO RANDOMo n 07-19-2022 mALB 43.8 mg/L Critically high <=30.0 [facility] Comment on above: Performed By: #### M CRR #### [facility] [address] [address] [address] Shashi Jimenez MALB CR RATIO 326.8 mg/g Critically high 0.0-29.9 [facility] Comment on above: Performed By: #### M CRR #### [facility] [address] [address] [address] Shashi Jimenez MALB CR RATIO RANGE SEE BELOW Normal [facility] Comment on above: Result Comment: NO M ICROALBUMINURIA 0-29 MG/G CLINICAL MICROALBUMINURIA 30-300 MG/G MACROALBUMINURIA >300 MG/G Performed By: #### M CRR #### [facility] [address] [address] [address] Shashi Jimenez URINE CREAT 134.02 mg/dL Normal 20.00-300.00 [facility] Comment on above: Performed By: #### M CRR #### [facility] [address] [address] [address] Shashi Jimenez PROF 14(COMP METB)on 023 Albumin [Mass/Vol] 3.8 g/dL Normal 3.4-5.0 [facility] Comment on above: Performed By: #### C MP #### [facility] [address] [address] [address] Shashi Jimenez Albumin/Globulin [Mass ratio] 1.0 {ratio} Normal [facility] Comment on above: Performed By: #### C MP #### [facility] [address] [place] [address] Dr. Shashi Jimenez ALP [Catalytic activity/Vol] 83 U/L Normal 46-116 [facility] Comment on above: Performed By: #### C MP #### [facility] [address] [place] [address] Dr. Shashi Jimenez ALT [Catalytic activity/Vol] 42 U/L Normal 14-59 [facility] Comment on above: Performed By: #### C MP #### [facility] [address] [place] [address] Dr. Shashi Jimenez Anion gap [Moles/Vol] 14.0 mmol/L Normal [facility] Comment on above: Performed By: #### C MP #### [facility] [address] [place] [address] Dr. Shashi Jimenez AST [Catalytic activity/Vol] 42 U/L Critically high 15 -37 [facility] Comment on above: Performed By: #### C MP #### [facility] [address] [place] [address] Dr. Shashi Jimenez Bilirubin [Mass/Vol] 0.4 mg/dL Normal 0.2-1.0 [facility] Comment on above: Performed By: #### C MP #### [facility] [address] [place] [address] Dr. Shashi Jimenez Calcium [Mass/Vol] 10.8 mg/dL Critically high 8.5-10.[address] [facility] Comment on above: Performed By: #### C MP #### [facility] [address] [place] [address] Dr. Shashi Jimenez Chloride [Moles/Vol] 99 mmol/L Normal 98-107 [facility] Comment on above: Performed By: #### C MP #### [facility] [address] [place] [address] Dr. Shashi Jimenez CO2 [Moles/Vol] 27.0 mmol/L Normal 21.0-32.0 [facility] Comment on above: Performed By: #### C MP #### [facility] [address] [address] [address] Shashi Jimenez Creatinine [Mass/Vol] 0.92 mg/dL Normal 0.55-1.02 [facility] Comment on above: Performed By: #### C MP #### [facility] [address] [address] [address] Shashi Jimenez EGFR-AF PARAGUAYAN >60 Normal >=60 [facility] Comment on above: Performed By: #### C MP #### [facility] [address] [address] [address] Shashi Jimenez EGFR-NON AF PARAGUAYAN =60 Normal >=60 [facility] Comment on above: Performed By: #### C MP #### [facility] [address] [place] [address] Dr. Shashi Jimenez Globulin (S) [Mass/Vol] 3.9 g/dL Normal [facility] Comment on above: Performed By: #### C MP #### [facility] [address] [address] [address] Shashi Jimenez Glucose [Mass/Vol] 300 mg/dL Critically high 74-[address] [facility] Comment on above: Performed By: #### C MP #### [facility] [address] [address] [address] Shashi Jimenez Potassium [Moles/Vol] 4.0 mmol/L Normal 3.5-5.1 [facility] Comment on above: Performed By: #### C MP #### [facility] [address] [address] [address] Shashi Jimenez Protein [Mass/Vol] 7.7 g/dL Normal 6.4-8.2 [facility] Comment on above: Performed By: #### C MP #### [facility] [address] [address] [address] Shashi Jimenez Sodium [Moles/Vol] 136 mmol/L Normal 136-145 [facility] Comment on above: Performed By: #### C MP #### [facility] [address] [address] [address] Shashi Jimenez Urea nitrogen [Mass/Vol] 20.0 mg/dL Critically high 7.0-18 .0 [facility] Comment on above: Performed By: #### C MP #### [facility] [address] [address] [address] Shashi Jimenez Urea nitrogen/Creatinine [Mass ratio] 21.7 mg/mg Normal [facility] Comment on above: Performed By: #### C MP #### [facility] [address] [address] [address] Shashi Jimenez XR ankle LT min 3V*on 2021 XR ankle LT min 3V* [facility] [place] [address] XRay Report Signed Patient: Tunde Jack MR#: [id number] : 1950 Acct:[id number] Age/Sex: 71 / F ADM Date: 09/21/21 [facility] Attending Dr: Constantine Hernandez MD Ordering [...] 09/21/21 1308 Signed By: 09/21/21 1346 Normal [facility] XR ankle LT min 3V* [facility] [employer] Other XR ankle LT min 3V* [facility] [employer] Other XR ankle LT min 3V* [facility] [employer] Other XR ankle LT min 3V* [place] [address] [facility] [employer] Other XR ankle LT min 3V* XRay Report [facility] [employer] Other XR ankle LT min 3V* Signed [facility] [employer] Other XR ankle LT min 3V* Patient: Sarika Jack rla R MR#: [id number] [facility] [employer] Other XR ankle LT min 3V* 3475 [facility] [employer] Other XR ankle LT min 3V* : 1950 Acct:[id number] [facility] [employer] Other XR ankle LT min 3V* Age/Sex: 71 / F ADM Date: 09/21/21 [facility] [employer] Other XR ankle LT min 3V* Loc: XDUCLY [facility]: [facility] [employer] Other XR ankle LT min 3V* Attending Dr: Thomas Hernandez MD [facility] [employer] Other XR ankle LT min 3V* Ordering Provider: Kathryn Hernandez APRN [facility] [employer] Other XR ankle LT min 3V* Date of Service: 09/21/21 [employer] Other XR ankle LT min 3V* [id number]) XR/XR ankle LT min 3V*: [id number] [employer] Other XR ankle LT min 3V* Copies to: Isidra kwon APRN [place] [employer] Other XR ankle LT min 3V* Constantine Hernandez MD [place] [employer] Other XR ankle LT min 3V* XR ankle LT min 3V* 09/21/2021 12:53 PM [employer] Other XR ankle LT min 3V* SIGNS AND SYMPTOMS: Twisting injury to left ankle with pain laterally [employer] Other XR ankle LT min 3V* PROTOCOL: Frontal, l ateral, and oblique radiographs of the left ankle [place] [employer] Other XR ankle LT min 3V* COMPARISON: None [employer] Other XR ankle LT min 3V* FINDINGS: [employer] Other XR ankle LT min 3V* The bones are in kari tomic alignment. There is no evidence of acute displaced fracture. There is [employer] Other XR ankle LT min 3V* soft tissue swelling which is greatest over the lateral malleolus. The ankle mortise is preserved. [employer] Other XR ankle LT min 3V* Calcifications are n oted along the Achilles tendon suspicious for a previous Achilles injury. [employer] Other XR ankle LT min 3V* X R/XR ankle LT min 3V* [employer] Other XR ankle LT min 3V* IMPRESSION: [place] [employer] Other XR ankle LT min 3V* No acute displaced fracture. [employer] Other XR ankle LT min 3V* Diffuse soft tissue swelling greatest over the lateral malleolus. [place] [employer] Other XR ankle LT min 3V* Calcifications are n oted along the Achilles tendon suspicious for a previous Achilles injury versus [employer] Other XR ankle LT min 3V* calcific tendinosis. [employer] Other XR ankle LT min 3V* Impression dictated by: Desiree Garrett M.D.09/21/2021 1:10 PM [employer] Other XR ankle LT min 3V* Dictation Location: [address] [employer] Other XR ankle LT min 3V* Transcribed By: MELODY 09/21/21 1310 [employer] Other XR ankle LT min 3V* Dictated By: Desiree Garrett II, MD 09/21/21 1308 [employer] Other XR ankle LT min 3V* Signed By: 09/21/21 1346 [employer] Other ED PROV NOTEon 02-27-2019 ED PROV NOTE HNO ID: [id number] Author: Nargis Raman Service: ? Author Type: Physician Type: ED Provider Notes Filed: 03/01/2019 1:58 AM Note Text: [place] [address] [facility] INFORMATION [facility]NAGEMENT EMERGENCY DEPARTMENT REPORT Patient: TUNDE JACK DANISHA,NARGIS Simon D.O. [id number] [age] F Status: DEP ER ED [...] By: NARGIS RAMAN D.O. Tests performed at: [address] [address] Normal [facility] EMERGENCY DEPARTMENT REPORTo n 02-27-2019 EMERGENCY [place] [address] HEALTH INFORMATION MANAGEMENT EMERGENCY DEPARTMENT REPORT Patient: TUNDE JACK NARGIS RAMAN D.O. [id number] [age] F Status: DEP ER ED [...] By: NARGIS RAMAN D.O. Tests performed at: [place] [address] Normal Counts Include [facility] LUMBAR LIMITED 2Von 02-28-20 19 LUMBAR LIMITED 2V [place] [address] Name: TUNDE JACK Phys: NARGIS RAMAN D.O. : [birth year] Age: 68 Sex: F Acct: [id number] Loc: ED Exam Date: 02/27/19 Status: REG ER Radiology No.: [id number] Unit Number: [id number] Exam # Type/Exam [id number] RAD / LUMBAR LIMITED 2V EXAM DESCRIPTION: [...] By: LEAH KIRKPATRICK M.D. Tests performed at: [place] [address] [facility] ED PROV NOTEon 01-23-2019 ED PROV NOTE HNO ID: [id number] Author: Desiree May Service: ? Author Type: Physician Type: ED Provider Notes Filed: 01/28/2019 2:46 PM Note Text: [place] [address] HEALTH INFORMATION MANAGEMENT EMERGENCY DEPARTMENT REPORT Patient: TUNDE JACK LORIDESIREE Henry M.D. [id number] [age] F Status: [facility] ER ED Date of Service: 01/22/19 CHIEF [...] HISTORY Patient is . She is a yhqh-qhcr-t-day smoker. PAST SURGICAL HISTORY Appendectomy, cholecystectomy, hysterectomy. [...] << Signature on File>> Reported By: DESIREE AMY M.D. Signed By: DESIREE MAY M.D. Tests performed at: [address] [address] Normal [facility] EMERGENCY DEPARTMENT REPORTo n 01-23-2019 EMERGENCY [place] [address] HEALTH INFORMATION MANAGEMENT EMERGENCY DEPARTMENT REPORT Patient: TUNDE JACK DESIREE MAY M.D. [id number] [age] F Status: DEP ER ED [...] HISTORY Patient is . She is a jfyp-nhny-u-day smoker. PAST SURGICAL HISTORY Appendectomy, cholecystectomy, hysterectomy. [...] By: DESIREE MAY M.D. Tests performed at: [address] [address] Normal Counts Include [facility] ABDOMEN MULTIPLE VIEWSon ABDOMEN MULTIPLE VIEWS [address] [address] Name: TUNDE JACK Erika Phys: DESIREE MAY M.D. : [birth year] Age: 68 Sex: F Acct: [id number] Loc: ED Exam Date: 01/22/19 Status: REG ER Radiology No.: [id number] Unit Number: [id number] Exam # Type/Exam [id number] RAD / ABDOMEN MULTIPLE VIEWS XR ABDOMEN [...] By: HUA PLATA M.D. Tests performed at: [address] [address] Normal Counts Include [facility] BMPon 01-22-2019 Anion gap [Moles/Vol] 16.0 mmol/L Normal 15-22 [facility] Comment on above: Performed By: #### L 100.0350, L100.0030, L100.0010 #### [facility] [address] [place] [address] Calcium [Mass/Vol] 10.5 mg/dL High 8.8-10.2 Counts Include [facility] Comment on above: Performed By: #### L 100.0350, L100.0030, L100.0010 #### [facility] [address] [place] [address]365 Chloride [Moles/Vol] 99 mmol/L Normal 98-107 [facility] Comment on above: Performed By: #### L 100.0350, L100.0030, L100.0010 #### [facility] [address] [place] [address] CO2 [Moles/Vol] 26 mmol/L Normal 22-29 [facility] Comment on above: Performed By: #### L 100.0350, L100.0030, L100.0010 #### [facility] [address] [place] [address]96 Creatinine [Mass/Vol] 0.90 mg/dL Normal 0.50-0.90 [facility] Comment on above: Performed By: #### L 100.0350, L100.0030, L100.0010 #### - LABORATORY [address] [place] [address]60 eGFR if AFR MARICEL > 60 ml/min/1.73m2 Normal [facility] Comment on above: Result Comment: eGFR >= [...] By: #### L 100.0350, L100.0030, L100.0010 #### [facility] [address] [place] [address]65 eGFR nonAFR Maricel > 60 ml/Min/1.73m2 Normal [facility] Comment on above: Performed By: #### L 100.0350, L100.0030, L100.0010 #### [facility] [address] [place] [address] 78351 Glucose [Mass/Vol] 212 mg/dL High 82-115 Counts Include [facility] Comment on above: Performed By: #### L 100.0350, L100.0030, L100.0010 #### [facility] [address] [place] [address]353 Potassium [Moles/Vol] 4.0 mmol/L Normal 3.5-5.0 [facility] Comment on above: Performed By: #### L 100.0350, L100.0030, L100.0010 #### [facility] [address] [place] [address] 49800 Sodium [Moles/Vol] 137 mmol/L Normal 135-145 Counts Include [facility] Comment on above: Performed By: #### L 100.0350, L100.0030, L100.0010 #### [facility] [address] [place] [address] 07402 Urea nitrogen [Mass/Vol] 24 mg/dL High 8-23 Counts Include [facility] Comment on above: Performed By: #### L 100.0350, L100.0030, L100.0010 #### [facility] [address] [place] [address] CBCon 01-22-2019 Basophils (Bld) [#/Vol] 0.00 x10(3) Normal 0.00-0.10 Counts Include [facility] Comment on above: Performed By: #### L 200.0010 #### [facility] [address] [place] [address] 66083 Basophils/100 WBC (Bld) 0.3 % Normal 0.0-1.0 [facility] Comment on above: Performed By: #### L 200.0010 #### [facility] [address] [place] [address] Eosinophils (Bld) [#/Vol] 0.20 x10(3) Normal 0.00-0.54 Counts Include [facility] Comment on above: Performed By: #### L 200.0010 #### [facility] [address] [place] [address] Eosinophils/100 WBC (Bld) 3.0 % Normal 0.5-4.9 Counts Include [facility] Comment on above: Performed By: #### L 200.0010 #### [facility] [address] [place] [address] Erythrocyte distribution wid th (RBC) [Ratio] 13.7 % Normal 12.5-15.7 Counts Include [facility] Comment on above: Performed By: #### L 200.0010 #### [facility] [address] [place] [address] Hematocrit (Bld) [Volume fraction] 45.9 % Normal 3 6.0-48.0 Counts Include [facility] Comment on above: Performed By: #### L 200.0010 #### [facility] [address] [place] [address] Hemoglobin (Bld) [Mass/Vol] 15.5 g/dL Normal 12.0-16. 0 Counts Include [facility] Comment on above: Performed By: #### L 200.0010 #### [facility] [address] [place] [address] Lymphocytes (Bld) [#/Vol] 1.70 x10(3) Normal 1.00-3.50 Counts Include [facility] Comment on above: Performed By: #### L 200.0010 #### [facility] [address] [place] [address] 45460 Lymphocytes/100 WBC (Bld) 22.1 % Normal 16.0-48.0 Counts Include [facility] Comment on above: Performed By: #### L 200.0010 #### [facility] [address] [place] [address] 21282 MCH (RBC) [Entitic mass] 30.9 pg Normal 28.5-32.9 Counts Include [facility] Comment on above: Performed By: #### L 200.0010 #### [facility] [address] [place] [address]37 MCHC (RBC) [Mass/Vol] 33.8 g/dL Normal 33.0-36.0 [facility] Comment on above: Performed By: #### L 200.0010 #### [facility] [address] [place] [address] 89278 MCV (RBC) [Entitic vol] 91.3 fL Normal 80.0-99.0 [facility] Comment on above: Performed By: #### L 200.0010 #### [facility] [address] [place] [address] 78482 Monocytes (Bld) [#/Vol] 0.60 x10(3) Normal 0.30-0.80 Counts Include [facility] Comment on above: Performed By: #### L 200.0010 #### [facility] [address] [place] [address] Monocytes/100 WBC (Bld) 8.3 % Normal 4.3-11.2 [facility] Comment on above: Performed By: #### L 200.0010 #### [facility] [address] [place] [address] Neutrophils (Bld) [#/Vol] 5.10 x10(3) Normal 1.40-6.50 Counts Include [facility] Comment on above: Performed By: #### L 200.0010 #### [facility] [address] [place] [address] Neutrophils/100 WBC (Bld) 66.3 % Normal 45.0-73.0 Counts Include [facility] Comment on above: Performed By: #### L 200.0010 #### [facility] [address] [place] [address] 40202 Platelet mean volume (Bld) [ Entitic vol] 8.2 fL Normal 7.5-9.5 Counts Include [facility] Comment on above: Performed By: #### L 200.0010 #### [facility] [address] [place] [address] Platelets (Bld) [#/Vol] 124 X10(3) Low 150-450 [facility] Comment on above: Performed By: #### L 200.0010 #### [facility] [address] [place] [address] 78125 RBC (Bld) [#/Vol] 5.02 x10(6) High 3.30-5.00 Counts Include [facility] Comment on above: Performed By: #### L 200.0010 #### [facility] [address] [place] [address] 35732 WBC (Bld) [#/Vol] 7.7 x10(3) Normal 4.5-10.0 [facility] Comment on above: Performed By: #### L 200.0010 #### [facility] [address] [place] [address] ABD/PEL W CONTRASTon CT ABD/PEL W CONTRAST [address] [address] Name: MICKEYTUNDE R Phys: DESIREE MAY M.D. : [birth year] Age: 68 Sex: F Acct: [id number] Loc: ED Exam Date: 01/22/19 Status: REG Radiology No.: [id number] Unit Number: [id number] Exam # Type/Exam [id number] CT / CT ABD/PEL W CONTRAST CT [...] By: CHI CASTANEDA D.O. Tests performed at: [address] [address] Normal Counts Include [facility] HEPATIC PANELon 01-22-2019 A:G RATIO 1.32 Normal 1.1-2.5 [facility] Comment on above: Performed By: #### L 100.0350, L100.0030, L100.0010 #### [facility] [address] [place] [address] 25745 Albumin [Mass/Vol] 4.1 g/dL Normal 3.5-5.2 Counts Include [facility] Comment on above: Performed By: #### L 100.0350, L100.0030, L100.0010 #### [facility] [address] [place] [address] ALK. PHOS 79 U/L Normal 35-105 [facility] Comment on above: Performed By: #### L 100.0350, L100.0030, L100.0010 #### [facility] [address] [place] [address] 59176 ALT [Catalytic activity/Vol] 23 U/L Normal 5-33 Counts Include [facility] Comment on above: Performed By: #### L 100.0350, L100.0030, L100.0010 #### [facility] [address] [place] [address] 49056 AST [Catalytic activity/Vol] 23 U/L Normal 5-32 Counts Include [facility] Comment on above: Performed By: #### L 100.0350, L100.0030, L100.0010 #### [facility] [address] [place] [address] Bilirubin Ql (U) 0.3 mg/dL Normal 0.2-1.2 [facility] Comment on above: Performed By: #### L 100.0350, L100.0030, L100.0010 #### [facility] [address] [place] [address] 07128 DIRECT BILIRUBI <0.2 Normal 0.0-0.3 [facility] Comment on above: Performed By: #### L 100.0350, L100.0030, L100.0010 #### [facility] [address] [place] [address] 86175 Globulin (S) [Mass/Vol] 3.1 g/dL Normal 1.5-4.5 [facility] Comment on above: Performed By: #### L 100.0350, L100.0030, L100.0010 #### [facility] [address] [place] [address] 08778 Protein [Mass/Vol] 7.2 g/dL Normal 6.4-8.3 Counts Include [facility] Comment on above: Performed By: #### L 100.0350, L100.0030, L100.0010 #### [facility] [address] [place] [address] LIPASEon 01-22-2019 Lipase [Catalytic activity/Vol] 44 U/L Normal 13-6 0 Counts Include [address] [facility] Comment on above: Performed By: #### L 100.0350, L100.0030, L100.0010 #### [facility] [address] [place] [address] URINALYSISon 01-22-2019 Bilirubin Ql (U) Negative Normal NEGATIVE [facility] Comment on above: Order Comment: Urine Specimen Source+ CLEAN CATCH Performed By: #### L 200.3000 #### ML [facility] [address] [place] [address] 56673 Color (U) YELLOW Normal YELLOW [facility] Comment on above: Order Comment: Urine Specimen Source+ CLEAN CATCH Performed By: #### L 200.3000 #### [facility] [address] [place] [address] 62279 Glucose Ql (U) >=1000 Normal NEGATIVE [facility] Comment on above: Order Comment: Urine Specimen Source+ CLEAN CATCH Performed By: #### L 200.3000 #### [facility] [address] [place] [address] 60481 Hemoglobin Ql (U) TRACE-INTACT Normal NEGATIVE Counts Include [facility] Comment on above: Order Comment: Urine Specimen Source+ CLEAN CATCH Performed By: #### L 200.3000 #### [facility] [address] [place] [address] 43314 Leukocyte esterase Test stri p Ql (U) Negative Normal NEGATIVE Counts Include [address] [facility] Comment on above: Order Comment: Urine Specimen Source+ CLEAN CATCH Performed By: #### L 200.3000 #### [facility] [address] [place] [address] 26313 Nitrite Ql (U) Negative Normal NEGATIVE [facility] Comment on above: Order Comment: Urine Specimen Source+ CLEAN CATCH Performed By: #### L 200.3000 #### [facility] [address] [place] [address] 57311 pH (U) 5.5 [pH] Normal 5.0-8.0 [facility] Comment on above: Order Comment: Urine Specimen Source+ CLEAN CATCH Performed By: #### L 200.3000 #### [facility] [address] [place] [address] 00179 Protein Ql (U) Negative Normal NEGATIVE [facility] Comment on above: Order Comment: Urine Specimen Source+ CLEAN CATCH Performed By: #### L 200.3000 #### [facility] [address] [place] [address] 01299 URINE APPEARANC CLEAR Normal CLEAR [facility] Comment on above: Order Comment: Urine Specimen Source+ CLEAN CATCH Performed By: #### L 200.3000 #### [facility] [address] [place] [address] 37935 URINE KETONE Negative Normal NEGATIVE [facility] Comment on above: Order Comment: Urine Specimen Source+ CLEAN CATCH Performed By: #### L 200.3000 #### [facility] [address] [place] [address] 14874 URINE SPECIFIC <=1.005 Normal 1.001-1.035 [facility] Comment on above: Order Comment: Urine Specimen Source+ CLEAN CATCH Performed By: #### L 200.3000 #### [facility] [address] [place] [address] 47080 URINE UROBILINO 0.2 EU/DL Normal 0.2-1.0 [facility] Comment on above: Order Comment: Urine Specimen Source+ CLEAN CATCH Performed By: #### L 200.3000 #### [facility] [address] [place] [address] 22462 [id number] 01-15-2019 HbA1c (Bld) [Mass fraction] 7.2 % High 4.3-6.1 Counts Include [facility] Comment on above: Result Comment: Estimated Average Glucose: HgbA1C % mg/dL 4.0 68 5.0 97 6.0 125 7.0 154 8.0 183 9.0 212 10.0 240 Source: [place] [employer] web site, 2017. Performed By: #### L 200.2000 #### [facility] [address] [place] [address] LIPID PANELon 01-15-2019 Cholesterol [Mass/Vol] 158 mg/dL Normal 130-200 [facility] Comment on above: Order Comment: ADD O N Performed By: #### L 100.0040 #### [facility] [address] [place] [address] 65440 Cholesterol in HDL [Mass/Vol] 30 mg/dL [facility] Comment on above: Order [...] #### L 100.0040 #### [facility] [address] [place] [address] 57733 Cholesterol in LDL [Mass/Vol] 55 mg/dL [facility] Comment on above: Order Comment: ADD O N Result Comment: LDL: OPTIMAL FOR PEOPLE AT VERY HIGH RISK <70 OPTIMAL <100 NEAR OPTIMAL 100-129 BORDERLINE HIGH 130-159 HIGH 160-189 VERY HIGH >=190 Source: 2009 NCEP ATP III, ADA Guidelines Reviewed: August, Performed By: #### L 100.0040 #### [facility] [address] [place] [address] 08438 Cholesterol in LDL/Cholester ol in HDL [Mass ratio] 1.8 [facility] Comment on above: Order Comment: ADD O N Performed By: #### L 100.0040 #### [facility] [address] [place] [address] 07385 Cholesterol in VLDL [Mass/Vol] 73 mg/dL High 6-40 Counts Include [facility] Comment on above: Order Comment: ADD O N Performed By: #### L 100.0040 #### [facility] - [facility] [address] [place] [address] 46611 Triglyceride [Mass/Vol] 365 mg/dL Normal U [facility] Comment on above: Order Comment: ADD O N Result Comment: TRIG : DESIRABLE: <150 mg/dL Performed By: #### L 100.0040 #### [facility] - [facility] [address] [place] [address] 99810 Hoda 01-14-2019 ALT [Catalytic activity/Vol] 29 U/L Normal -33 Counts Include [facility] Comment on above: Performed By: #### L 100.0010, L100.0240, L100.0250 #### [facility] [address] [place] [address] 90572 Genesis 01-14-2019 AST [Catalytic activity/Vol] 30 U/L Normal -32 Counts Include [facility] Comment on above: Performed By: #### L 100.0010, L100.0240, L100.0250 #### [facility] [address] [place] [address] 81231 BMPon 01-14-2019 Anion gap [Moles/Vol] 16.6 mmol/L Normal 15-22 [facility] Comment on above: Performed By: #### L 100.0010, L100.0240, L100.0250 #### [facility] [address] [place] [address] 58682 Calcium [Mass/Vol] 10.3 mg/dL High 8.8-10.2 Counts Include [address] [facility] Comment on above: Performed By: #### L 100.0010, L100.0240, L100.0250 #### [facility] [address] [place] [address] 63219 Chloride [Moles/Vol] 98 mmol/L Normal 98-107 [facility] Comment on above: Performed By: #### L 100.0010, L100.0240, L100.0250 #### [facility] - [facility] [address] [place] [address] CO2 [Moles/Vol] 28 mmol/L Normal 22-29 [facility] Comment on above: Performed By: #### L 100.0010, L100.0240, L100.0250 #### [facility] [address] [place] [address] 00792 Creatinine [Mass/Vol] 0.74 mg/dL Normal 0.50-0.90 [facility] Comment on above: Performed By: #### L 100.0010, L100.0240, L100.0250 #### [facility] [address] [place] [address] 49889 eGFR if AFR MARICEL > 60 ml/min/1.73m2 Normal [facility] Comment on above: Result Comment: eGFR >= [...] L100.0240, L100.0250 #### [facility] - [facility] [address] [place] [address] eGFR nonAFR Maricel > 60 ml/Min/1.73m2 Normal [facility] Comment on above: Performed By: #### L 100.0010, L100.0240, L100.0250 #### [facility] - [facility] [address] [place] [address] 31441 Glucose [Mass/Vol] 208 mg/dL High 82-115 Counts Include [facility] Comment on above: Performed By: #### L 100.0010, L100.0240, L100.0250 #### [facility] [address] [place] [address] 46117 Potassium [Moles/Vol] 4.6 mmol/L Normal 3.5-5.0 [facility] Comment on above: Performed By: #### L 100.0010, L100.0240, L100.0250 #### [facility] [address] [place] [address] 40385 Sodium [Moles/Vol] 138 mmol/L Normal 135-145 Counts Include [address] [facility] Comment on above: Performed By: #### L 100.0010, L100.0240, L100.0250 #### [facility] [address] [place] [address] 09262 Urea nitrogen [Mass/Vol] 16 mg/dL Normal 8-23 Counts Include [facility] Comment on above: Performed By: #### L 100.0010, L100.0240, L100.0250 #### [facility] [address] [place] [address] 24096 [facility] 11-12-2018 Anion gap [Moles/Vol] 19.0 mmol/L Normal 15-22 [facility] Comment on above: Performed By: #### L 100.0010 #### [facility] [address] [place] [address] 27236 Calcium [Mass/Vol] 10.0 mg/dL Normal 8.8-10.2 Counts Include [facility] Comment on above: Performed By: #### L 100.0010 #### [facility] [address] [place] [address] 21575 Chloride [Moles/Vol] 97 mmol/L Low 98-107 [facility] Comment on above: Performed By: #### L 100.0010 #### [facility] [address] [place] [address] 15771 CO2 [Moles/Vol] 26 mmol/L Normal 22-29 [facility] Comment on above: Performed By: #### L 100.0010 #### [facility] [address] [place] [address] 11624 Creatinine [Mass/Vol] 0.98 mg/dL High 0.50-0.90 [facility] Comment on above: Performed By: #### L 100.0010 #### [facility] [address] [place] [address] 94352 eGFR if AFR MARICEL > 60 ml/min/1.73m2 Normal [facility] Comment on above: Result Comment: eGFR >= [...] Performed By: #### L 100.0010 #### [facility] [address] [place] [address] 39807 eGFR nonAFR Maricel 57 Normal [facility] Comment on above: Performed By: #### L 100.0010 #### [facility] [address] [place] [address] 37053 Glucose [Mass/Vol] 171 mg/dL High 82-115 Counts Include [facility] Comment on above: Performed By: #### L 100.0010 #### [facility] [address] [place] [address] 79130 Potassium [Moles/Vol] 4.0 mmol/L Normal 3.5-5.0 [facility] Comment on above: Performed By: #### L 100.0010 #### [facility] [address] [place] [address] 49467 Sodium [Moles/Vol] 138 mmol/L Normal 135-145 Counts Include [facility] Comment on above: Performed By: #### L 100.0010 #### [facility] [address] [place] [address] 10176 Urea nitrogen [Mass/Vol] 22 mg/dL Normal 8-23 Counts Include [facility] Comment on above: Performed By: #### L 100.0010 #### [facility] [address] [place] [address] 89147 PTHon 11-12-2018 PTH 26.5 pg/mL Normal 15-65 [facility] Comment on above: Performed By: #### L 304.0135 #### [facility] [address] [place] [address] 39238 BMPon 10-16-2018 Anion gap [Moles/Vol] 20.3 mmol/L Normal 15-22 [facility] Comment on above: Performed By: #### L 100.0010, L304.0470 #### [facility] [address] [place] [address] 04872 Calcium [Mass/Vol] 10.9 mg/dL High 8.8-10.2 Counts Include [facility] Comment on above: Performed By: #### L 100.0010, L304.0470 #### ML - LABORATORY [address] [place] [address]498 Chloride [Moles/Vol] 100 mmol/L Normal 98-107 [facility] Comment on above: Performed By: #### L 100.0010, L304.0470 #### ML - LABORATORY [address] [place] [address]11 CO2 [Moles/Vol] 27 mmol/L Normal 22-29 [facility] Comment on above: Performed By: #### L 100.0010, L304.0470 #### ML - LABORATORY [address] [place] [address]268 Creatinine [Mass/Vol] 1.03 mg/dL High 0.50-0.90 [facility] Comment on above: Performed By: #### L 100.0010, L304.0470 #### ML - LABORATORY [address] [place] [address]2294 eGFR if AFR MARICEL > 60 ml/min/1.73m2 Normal [facility] Comment on above: Result Comment: eGFR >= [...] 100.0010, L304.0470 #### ML - LABORATORY [address] [place] [address] eGFR nonAFR Maricel 54 Normal [facility] Comment on above: Performed By: #### L 100.0010, L304.0470 #### ML - LABORATORY [address] [place] [address] Glucose [Mass/Vol] 186 mg/dL [facility] 82-115 Counts Include [facility] Comment on above: Performed By: #### L 100.0010, L304.0470 #### ML - LABORATORY [address] [place] [address] Potassium [Moles/Vol] 4.3 mmol/L Normal 3.5-5.0 [facility] Comment on above: Performed By: #### L 100.0010, L304.0470 #### - LABORATORY [address] [facility] [place] [address] Sodium [Moles/Vol] 143 mmol/L Normal 135-145 Counts Include [address] [facility] Comment on above: Performed By: #### L 100.0010, L304.0470 #### ML - LABORATORY [address] [place] [address] Urea nitrogen [Mass/Vol] 28 mg/dL High 8-23 Counts Include [address] [facility] Comment on above: Performed By: #### L 100.0010, L304.0470 #### ML - LABORATORY [address] [place] [address] PTHon 10-16-2018 PTH 25.1 pg/mL Normal 15-65 [facility] Comment on above: Performed By: #### L 304.0135 #### ML - LABORATORY [address] [place] [address] VITAMIN Don 10-16-2018 VITAMIN D 48.5 ng/mL Normal 30-100 [facility] Comment on above: Performed By: #### L 100.0010, L304.0470 #### ML - LABORATORY [address] [place] [address] Custodial Officer Cytology Reporton 2018 Custodial Officer Cytology Report . Pathology ReportsAccession: Collected Date/Time: Received Date/Time: Pathologist:[id number] 05/21/2018 16:06 EST 05/21/2018 18:00 MD JOY FARMER Custodial Officer Cytology ReportSPECIMEN:Specimen Description: Liquid Prep w/ HPVSpecimen: Cervical/EndocervicalScreening or Diagnostic: ScreeningRELEVANT HISTORY:LMP: not givenSPECIMEN ADEQUACY:SATISFACTORY FOR EVALUATIONENDOCERVICAL/TRANSFORMATIONAL ZONE COMPONENT PRESENTINTERPRETATION/RESULTS:NEGATIVE FOR INTRAEPITHELIAL LESION OR MALIGNANCYADJUNCTIVE TESTING:HIGH RISK HPV DNA TESTING ORDERED, REPORT TO FOLLOW UNDER SEPARATE COVERSUGGESTIONS/EDUCATIONAL NOTES:THIS CASE HAS BEEN REVIEWED FOR 10% Q.C. RESCREENElectronically Signed byPathology report verified by [facility].Screened by: KK DWElectronically signed by JOY Whalengn-Out Date: 05/27/2018 10:24Performing Lab: [facility], [address] [place], [place] [address]DisclaimerThe Pap test is a screening test for cervical cancer. As evidenced by published data, it is subject to both inherent false negative and false positive results. Your patient's results should be interpreted in context with pertinent clinical history including gynecological examination. Normal [facility] ([place]) Comment on above: Performed By: #### G YCR ####[place] [address] HPVon 05-27-2018 HPV Interp Normal See Interp HPVN [facility] ([place]) Comment on above: Order Comment: Order placed by AP_HPV_ORDER rule from [id number] Result Comment: High Risk HPV Typing: NEGATIVEHPV [...] Interp HPVN Performed By: #### H PV ####[address] [address] HPV Source Cervix Normal [facility] ([place]) Comment on above: Order Comment: Order placed by AP_HPV_ORDER rule from [id number] Performed By: #### H PV ####[address] [address] PROGRESSon 05-17-2018 PROGRESS HNO ID: [id number] Author: Provider [facility], [place]: (none) Author Type: Physician Type: Progress Notes Filed: 05/17/2018 12:29 PM Note Text: [facility] [place] [address] FIRST CARE REPORT Patient: TUNDE JACK FLACO,-RAIMUNDO MartinezN.PSarah [id number] F Status: REG POV FC [...] Diabetes Former cigarette smoker H/O appendicitis 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 Report to the [facility] Emergency Department if any further problems occur. [...] By: SEE SAM F.N.PSarah Tests performed at: [place] [address] Normal [facility] STRP SCNon 05-17-2018 STRP SCN Performed at: [facility] [address] [place] [address] STREP SCREEN NEGATIVE - CULTURE TO FOLLOW REFERENCE RANGE NORMAL RESULT IS NEGATIVE. Normal Counts Include [address] [facility] THTon 05-17-2018 THT ORGANISM 1: NO GROUP A BETA STREP ISOLATED Norm al Counts Include [address] [facility] Comment on above: Performed By: #### M 130.0700 #### ML - LABORATORY [address] [place], [place] [address] SURGICAL PATHOLOGY, CONVERTE Don 04-21-2014 [facility] Vital Signs Date Time Vital Sign Value Performing Clinician Facility 04-18-2023 14:10-0500 Body height 162.56 cm Latia Sparks AUTOMOTIVE BRAKE TECHNICIAN Work Phone: [facility] Work Phone: 04-18-2023 14:10-0500 Body mass index (BMI) [Ratio] 35.7 kg/m2 Latia Sparks AUTOMOTIVE BRAKE TECHNICIAN Work Phone: [facility] Work Phone: 04-18-2023 14:10-0500 Body surface area Derived from formula 2 m2 Latia Sparks AUTOMOTIVE BRAKE TECHNICIAN Work Phone: [facility] Work Phone: 04-18-2023 14:10-0500 Body temperature 97.8 [degF] Latia Sparks AUTOMOTIVE BRAKE TECHNICIAN Work Phone: [facility] Work Phone: 04-18-2023 14:10-0500 Body weight 94.35 kg Latia Sparks AUTOMOTIVE BRAKE TECHNICIAN Work Phone: [facility] Work Phone: 04-18-2023 14:10-0500 Diastolic blood pressure 80 mm[Hg] Latia Sparks AUTOMOTIVE BRAKE TECHNICIAN Work Phone: [facility] Work Phone: 04-18-2023 14:10-0500 Heart rate 96 /min Latia Sparks AUTOMOTIVE BRAKE TECHNICIAN Work Phone: [facility] Work Phone: 04-18-2023 14:10-0500 Inhaled oxygen concentration 21 % Latia Sparks AUTOMOTIVE BRAKE TECHNICIAN Work Phone: [facility] Work Phone: 04-18-2023 14:10-0500 Inhaled oxygen flow rate 0 L/min Latia Sparks AUTOMOTIVE BRAKE TECHNICIAN Work Phone: [facility] Work Phone: 04-18-2023 14:10-0500 Respiratory rate 18 /min Latia Sparks AUTOMOTIVE BRAKE TECHNICIAN Work Phone: [facility] Work Phone: 04-18-2023 14:10-0500 SaO2% (BldA) [Mass fraction] 96 % Latia Sparks AUTOMOTIVE BRAKE TECHNICIAN Work Phone: [facility] Work Phone: 04-18-2023 14:10-0500 Systolic blood pressure 138 mm[Hg] Latia Sparks AUTOMOTIVE BRAKE TECHNICIAN Work Phone: [facility] Work Phone: 11-15-2022 14:24-0400 Diastolic blood pressure 82 mm[Hg] Latia Sparks AUTOMOTIVE BRAKE TECHNICIAN Work Phone: [facility] Work Phone: 11-15-2022 14:24-0400 Systolic blood pressure 142 mm[Hg] Latia Sparks AUTOMOTIVE BRAKE TECHNICIAN Work Phone: [facility] Work Phone: 11-15-2022 14:17-0400 Body height 162.56 cm Latia Sparks AUTOMOTIVE BRAKE TECHNICIAN Work Phone: [facility] Work Phone: 11-15-2022 14:17-0400 Body mass index (BMI) [Ratio] 37.4 kg/m2 Latia Sparks AUTOMOTIVE BRAKE TECHNICIAN Work Phone: [facility] Work Phone: 11-15-2022 14:17-0400 Body surface area Derived from formula 2 m2 Latia Sparks AUTOMOTIVE BRAKE TECHNICIAN Work Phone: [facility] Work Phone: 11-15-2022 14:17-0400 Body weight 98.88 kg Latia Sparks AUTOMOTIVE BRAKE TECHNICIAN Work Phone: [facility] Work Phone: 11-15-2022 14:17-0400 Diastolic blood pressure 78 mm[Hg] Latia Sparks AUTOMOTIVE BRAKE TECHNICIAN Work Phone: [facility] Work Phone: 11-15-2022 14:17-0400 Heart rate 94 /min Latia Sparks AUTOMOTIVE BRAKE TECHNICIAN Work Phone: [facility] Work Phone: 11-15-2022 14:17-0400 SaO2% (BldA) [Mass fraction] 93 % Latia Sparks AUTOMOTIVE BRAKE TECHNICIAN Work Phone: [facility] Work Phone: 11-15-2022 14:17-0400 Systolic blood pressure 143 mm[Hg] Latia Sparks AUTOMOTIVE BRAKE TECHNICIAN Work Phone: [facility] Work Phone: 08-02-2022 10:15-0400 Body height 162.56 cm Latia Sparks AUTOMOTIVE BRAKE TECHNICIAN Work Phone: [facility] Work Phone: 08-02-2022 10:15-0400 Body mass index (BMI) [Ratio] 36.7 kg/m2 Latia Sparks AUTOMOTIVE BRAKE TECHNICIAN Work Phone: [facility] Work Phone: 08-02-2022 10:15-0400 Body surface area Derived from formula 2 m2 Latia Sparks AUTOMOTIVE BRAKE TECHNICIAN Work Phone: [facility] Work Phone: 08-02-2022 10:15-0400 Body temperature 98.5 [degF] Latia Sparks AUTOMOTIVE BRAKE TECHNICIAN Work Phone: [facility] Work Phone: 08-02-2022 10:15-0400 Body weight 97.07 kg Latia Sparks AUTOMOTIVE BRAKE TECHNICIAN Work Phone: [facility] Work Phone: 08-02-2022 10:15-0400 Diastolic blood pressure 82 mm[Hg] Latia Sparks AUTOMOTIVE BRAKE TECHNICIAN Work Phone: [facility] Work Phone: 08-02-2022 10:15-0400 Heart rate 98 /min Latia Sparks AUTOMOTIVE BRAKE TECHNICIAN Work Phone: [facility] Work Phone: 08-02-2022 10:15-0400 Heart Rate Rhythm 1 1 Latia Sparks AUTOMOTIVE BRAKE TECHNICIAN Work Phone: [facility] Work Phone: 08-02-2022 10:15-0400 Inhaled oxygen concentration 21 % Latia Sparks AUTOMOTIVE BRAKE TECHNICIAN Work Phone: [facility] Work Phone: 08-02-2022 10:15-0400 Inhaled oxygen flow rate 0 L/min Latia Sparks AUTOMOTIVE BRAKE TECHNICIAN Work Phone: [facility] Work Phone: 08-02-2022 10:15-0400 Respiratory rate 18 /min Latia Sparks AUTOMOTIVE BRAKE TECHNICIAN Work Phone: [facility] Work Phone: 08-02-2022 10:15-0400 SaO2% (BldA) [Mass fraction] 96 % Latia Sparks AUTOMOTIVE BRAKE TECHNICIAN Work Phone: [facility] Work Phone: 08-02-2022 10:15-0400 Systolic blood pressure 138 mm[Hg] Latia Spraks AUTOMOTIVE BRAKE TECHNICIAN Work Phone: [facility] Work Phone: 07-23-2022 13:38-0500 Diastolic blood pressure 78 mm[Hg] Latia Sparks AUTOMOTIVE BRAKE TECHNICIAN Work Phone: [facility] Work Phone: 07-23-2022 13:38-0500 Systolic blood pressure 142 mm[Hg] Latia Sparks AUTOMOTIVE BRAKE TECHNICIAN Work Phone: [facility] Work Phone: 07-23-2022 12:13-0500 Body height 162.56 cm Latia Sparks AUTOMOTIVE BRAKE TECHNICIAN Work Phone: [facility] Work Phone: 07-23-2022 12:13-0500 Body mass index (BMI) [Ratio] 36 kg/m2 Latia Sparks AUTOMOTIVE BRAKE TECHNICIAN Work Phone: [facility] Work Phone: 07-23-2022 12:13-0500 Body surface area Derived from formula 2 m2 Latia Sparks AUTOMOTIVE BRAKE TECHNICIAN Work Phone: [facility] Work Phone: 07-23-2022 12:13-0500 Body temperature 98.3 [degF] Latia Sparks AUTOMOTIVE BRAKE TECHNICIAN Work Phone: [facility] Work Phone: 07-23-2022 12:13-0500 Body weight 95.26 kg Latia Sparks AUTOMOTIVE BRAKE TECHNICIAN Work Phone: [facility] Work Phone: 07-23-2022 12:13-0500 Diastolic blood pressure 92 mm[Hg] Latia Sparks AUTOMOTIVE BRAKE TECHNICIAN Work Phone: [facility] Work Phone: 07-23-2022 12:13-0500 Heart rate 118 /min Latia Sparks AUTOMOTIVE BRAKE TECHNICIAN Work Phone: [facility] Work Phone: 07-23-2022 12:13-0500 Heart Rate Rhythm 1 1 Latia Sparks AUTOMOTIVE BRAKE TECHNICIAN Work Phone: [facility] Work Phone: 07-23-2022 12:13-0500 Inhaled oxygen concentration 21 % Latia Sparks AUTOMOTIVE BRAKE TECHNICIAN Work Phone: [facility] Work Phone: 07-23-2022 12:13-0500 Inhaled oxygen flow rate 0 L/min Latia Sparks AUTOMOTIVE BRAKE TECHNICIAN Work Phone: [facility] Work Phone: 07-23-2022 12:13-0500 Respiratory rate 21 /min Latia Sparks AUTOMOTIVE BRAKE TECHNICIAN Work Phone: [facility] Work Phone: 07-23-2022 12:13-0500 SaO2% (BldA) [Mass fraction] 96 % Latia Sparks AUTOMOTIVE BRAKE TECHNICIAN Work Phone: [facility] Work Phone: 07-23-2022 12:13-0500 Systolic blood pressure 168 mm[Hg] Latia Sparks AUTOMOTIVE BRAKE TECHNICIAN Work Phone: [facility] Work Phone: 09-21-2021 13:25-0400 Body height 162.56 cm Isidra [employer] Other [employer] Other 09-21-2021 13:25-0400 Body mass index (BMI) [Ratio] 37.24 kg/m2 Isidra [employer] Other [employer] Other 09-21-2021 13:25-0400 Body temperature 97.9 [degF] Isidra Hernandez Other [employer] Other 09-21-2021 13:25-0400 Body weight 98.43 kg Isidra Hernandez Other [employer] Other 09-21-2021 13:25-0400 Diastolic blood pressure 68 mm[Hg] Isidra Hernandez Other [employer] Other 09-21-2021 13:25-0400 Respiratory rate 20 /min Isidra Hernandez Other [employer] Other 09-21-2021 13:25-0400 SaO2% (BldA) [Mass fraction] 96 % Isidra Hernandez Other [employer] Other 09-21-2021 13:25-0400 Systolic blood pressure 146 mm[Hg] Isidra Hernandez Other [employer] Other Encounters Encounter Date Encounter Type Care Provider Facility Start: 04-18-2023 End: 04-18-2023 [facility] visit, estab pt Janina FRIED Work Phone: [facility] Work Phone: Start: 04-18-2023 End: 04-18-2023 [facility] visit, estab pt Latia Sparks AUTOMOTIVE BRAKE TECHNICIAN Work Phone: [facility] Work Phone: Start: 11-15-2022 End: 11-15-2022 [facility] visit, estab pt Latia Sparks AUTOMOTIVE BRAKE TECHNICIAN Work Phone: [facility] Work Phone: Start: 11-15-2022 End: 11-15-2022 General Latia Sparks AUTOMOTIVE BRAKE TECHNICIAN Work Phone: [facility] Work Phone: Start: 11-09-2022 End: 11-10-2022 [facility] Start: 11-08-2022 End: 11-08-2022 [facility] visit, estab pt Janina PARRISH-S Work Phone: [facility] Work Phone: Start: 11-08-2022 End: 11-08-2022 Encounter for preprocedural laboratory examination Latia Sparks AUTOMOTIVE BRAKE TECHNICIAN Work Phone: [facility] Work Phone: Start: 11-08-2022 End: 11-08-2022 Nursing evaluation of patient and report Latia Sparks AUTOMOTIVE BRAKE TECHNICIAN Work Phone: [facility] Work Phone: Start: 09-26-2022 End: 09-26-[address] DOCTOR WILSON Facility:[facility] Start: 09-25-2022 End: 09-25-2022 ambulatory NARENDRANATH LAKSHMIPATHY . Facility:[facility] Start: 08-28-2022 End: 08-29-2022 ambulatory NARENDRANATH LAKSHMIPATHY . Facility:[facility] Start: 08-14-2022 End: 08-14-2022 ambulatory NARENDRANATH LAKSHMIPATHY . Facility:[facility] Start: 08-02-2022 End: 08-02-2022 FQHC visit, estab pt Latia Sparks AUTOMOTIVE BRAKE TECHNICIAN Work Phone: [facility] Work Phone: Start: 07-27-2022 End: 07-28-2022 ambulatory GERALDO PRADO Facility:[facility] Start: 07-23-2022 End: 07-23-2022 [facility] visit, estab pt Cinthia PARRISH Work Phone: [facility] Work Phone: Start: 07-23-2022 End: 07-23-2022 Adult health examination Latia MAYORGA Work Phone: [facility] Work Phone: Start: 07-23-2022 End: 07-23-2022 Encounter for preprocedural laboratory examination Latia MAYORGA Work Phone: [facility] Work Phone: Start: 07-23-2022 End: 07-23-2022 FQ visit new patient Latia MAYORGA Work Phone: [facility] Work Phone: Start: 07-23-2022 End: 07-24-2022 ambulatory LATIA SPARKS [facility] Start: 07-23-2022 End: 07-24-2022 Encounter for general adult medical examination without abnormal findings LATIA SPARKS [facility] Start: 07-23-2022 End: 07-23-2022 Subsequent hospital visit by physician JANINE [facility] Start: 07-19-2022 End: 07-20-[address] DOCTOR WILSON Facility:[facility] Start: 07-18-2022 End: 07-18-[address] DOCTOR WILSON Facility:[facility] Start: 07-17-2022 End: 07-18-2022 ambulatory GERALDO PRADO Facility:[facility] Start: 07-12-2022 ambulatory Latia MAYORGA [facility] Start: 09-21-2021 End: 09-21-2021 ambulatory Isidra Hernandez Other [employer] Other Start: 09-21-2021 Office outpatient ne w 20 minutes Isidra Hernandez [facility] Start: 09-21-2021 End: 09-21-2021 Patient encounter procedure MD Constantine Hernandez Work Phone: [facility] Start: 05-21-2018 End: 05-26-2018 Patient encounter procedure STIVEN ANDINO Facility:[facility] Obstetrics Start: 01-08-2018 Patient encounter Morgan Barcenas [facility] Start: 04-21-2014 Documentation procedure Aram Esquivel MD Work Phone: [facility] Start: 04-21-2014 Historic EMR Aram soto MD Work Phone: [facility] Procedures Date Procedure Procedure Detail Performing Clinician Start: 04-18-2023 Current tobacco smoker Latia Sparks FN P Work Phone: Start: 04-18-2023 FQ visit, MH estab pt Janina Christianson [facility] Work Phone: Start: 04-18-2023 Gluc bld gluc mntr dev cleared fda spec home use Latia Sparks AUTOMOTIVE BRAKE TECHNICIAN Work Phone: Start: 04-18-2023 Most recent diastolic blood pressure 80-89 mm hg Latia Sparks AUTOMOTIVE BRAKE TECHNICIAN Work Phone: Start: 04-18-2023 Most recent hg a1c>equal to 7.0%&<8.0% Latia Sparks AUTOMOTIVE BRAKE TECHNICIAN Work Phone: Start: 04-18-2023 Most recent systolic blood press 130-139mm hg Latia Sparks AUTOMOTIVE BRAKE TECHNICIAN Work Phone: Start: 04-18-2023 Psychotherapy w/patient 30 minutes Janina Christianson [employer] Work Phone: Start: 04-18-2023 Pt scrnd tobacco use rcvd tobacco cessation talk Latia Sparks AUTOMOTIVE BRAKE TECHNICIAN Work Phone: Start: 11-15-2022 FQHC visit, estab pt Latia Sparks AUTOMOTIVE BRAKE TECHNICIAN Work Phone: Start: 11-15-2022 Most recent diastolic blood pressure 80-89 mm hg Latia Sparks AUTOMOTIVE BRAKE TECHNICIAN Work Phone: Start: 11-15-2022 Most recent systolic blood pres>/equal 140 mm hg Latia Sparks AUTOMOTIVE BRAKE TECHNICIAN Work Phone: Start: 11-08-2022 Collection venous blood venipuncture Latia Sparks AUTOMOTIVE BRAKE TECHNICIAN Work Phone: Start: 11-08-2022 FQ visit, MH estab pt Janina Christianson [facility] Work Phone: Start: 11-08-2022 Psychotherapy w/patient 30 minutes Janina Christianson [employer] Work Phone: Start: 08-02-2022 Counseling Visit For: Consulting For Explanation of Examination Or Test Findings Latia Sparks AUTOMOTIVE BRAKE TECHNICIAN Work Phone: Start: 08-02-2022 FQ visit, estab pt Latia Sparks AUTOMOTIVE BRAKE TECHNICIAN Work Phone: Start: 08-02-2022 Most recent diastolic blood pressure 80-89 mm hg Latia Sparks AUTOMOTIVE BRAKE TECHNICIAN Work Phone: Start: 08-02-2022 Most recent systolic blood press 130-139mm hg Latia Sparks AUTOMOTIVE BRAKE TECHNICIAN Work Phone: Start: 07-23-2022 Cholecystectomy Latia Sparks AUTOMOTIVE BRAKE TECHNICIAN Work Phone: Start: 07-23-2022 Collection venous blood venipuncture Latia Sparks AUTOMOTIVE BRAKE TECHNICIAN Work Phone: Start: 07-23-2022 FQ visit, MH estab pt Cinthia Adolph L[facility] W-S Work Phone: Start: 07-23-2022 Hysterectomy Latia Sparks AUTOMOTIVE BRAKE TECHNICIAN Work Phone: Start: 07-23-2022 Ligation of fallopian tube Latia Ibrahi m AUTOMOTIVE BRAKE TECHNICIAN Work Phone: Start: 07-23-2022 Most recent diastol blood pres >/equal 90 mm hg Latia Sparks AUTOMOTIVE BRAKE TECHNICIAN Work Phone: Start: 07-23-2022 Most recent hg a1c>equal to 8.0%& Latia Sparks AUTOMOTIVE BRAKE TECHNICIAN Work Phone: Start: 07-23-2022 Most recent systolic blood pressure <130 mm hg Latia Sparks AUTOMOTIVE BRAKE TECHNICIAN Work Phone: Start: 07-23-2022 Pt-focused hlth risk assmt score doc stnd instrm Latia Sparks AUTOMOTIVE BRAKE TECHNICIAN Work Phone: Start: 07-23-2022 Urine albumin semiquantitative Latia Sparks AUTOMOTIVE BRAKE TECHNICIAN Work Phone: Start: 07-23-2022 Hemoglobin glycosylated a1c Latia Yasmin im AUTOMOTIVE BRAKE TECHNICIAN Work Phone: Start: 07-23-2022 Hepatitis c antibody Latia Sparks AUTOMOTIVE BRAKE TECHNICIAN Work Phone: Start: 07-23-2022 IMMATURE PLATELET FRACTION Latia Andree m [employer] Work Phone: Start: 09-21-2021 X-ray of left [...] visit, estab pt Medical E stablished Patient [facility] Work Phone: Start: 06-05-2023 Dental Comp Exam [facility] Work Phone: Start: 06-04-2023 FQHC visit, estab pt Medical E stablished Patient [facility] Work Phone: Start: 04-18-2023 End: 04-18-2023 Patient education based on identified need [facility] offered active and supportive listening, validated emotions and feelings, and processed current stressors with being in the hospital. ~[facility]HP encouraged patient to utilize positive supports and coping skills. ~ [facility] Start: 04-18-2023 End: 04-18-2023 Patient education based on identified need [facility] Start: 11-15-2022 End: 11-15-2022 Patient education based on identified need [facility] Start: 11-15-2022 Lipid 1996 panel - S zana or Plasma [facility] Start: 11-08-2022 End: 11-08-2022 Patient education based on identified need [facility] encouraged patient to utilize positive supports and coping skills. ~[facility] encouraged patient to contact [facility] if they need any additional support or resources. ~ [facility] Start: 11-01-2022 FQHC visit, estab pt Medical E stablished Patient [facility] Work Phone: Start: 10-18-2022 ambulatory Ambulatory Facility:[facility] 1 Start: 08-02-2022 FQHC visit, estab pt Medical E stablished Patient [facility] Work Phone: Start: 08-02-2022 End: 08-02-2022 Patient education based on identified need [facility] Start: 08-02-2022 End: 08-02-2022 Provider instructions for treatment Intervention and counseling on cessation of tobacco use, 3-10 minutes Discussed medication and nicotine replacement for tobacco cessation [facility] Start: 07-30-2022 CBC panel - Blood by Automated count [facility] Start: 07-30-2022 Lipid 1996 panel - S zana or Plasma LIPID PROFILE [facility] Start: 07-23-2022 End: 07-23-2022 Patient education based on identified need [facility] Start: 07-23-2022 End: 07-23-2022 Provider instructions for treatment Intervention and counseling on cessation of tobacco use, 3-10 minutes Discussed medication and nicotine replacement for tobacco cessation [facility] Start: 12-18-2021 Influenza vaccination Flu vaccine (# 1) [facility] Start: 1971 DTaP/Tdap/Td vaccine (1 - Tdap) DTaP/Tdap/Td vaccine (1 - Tdap) [facility] Start: 1950 COVID-19 Vaccine (#1) COVID-19 Vacci ne (#1) [facility] Payers Date Payer Category Payer Medicare [id number] 2014 Private Health Insurance [id number] 2014 Unknown [id number] 1959 Medicaid [id number] 1950 Unknown [id number] [id number]. 627 1952 Unknown [id number] 2.16.840.1.353801.3.579.2. 593 1952 Unknown [id number] 2.16.840.1.082848.3.579.2. 593 1952 Unknown [id number] 2.16.840.1.865781.3.579.2. 593 1952 Unknown [id number] 2.16.840.1.566865.3.579.2. 593 1952 Unknown [id number] 2.16.840.1.990666.3.579.2. 593 1952 Unknown [id number] 2.16.840.1.617834.3.579.2. 593 1952 Unknown [id number] 2.16.840.1.999823.3.579.2. 593 1952 Unknown [id number] 2.16.840.1.013409.3.579.2. 593 1952 Unknown [id number] 2.16.840.1.080135.3.579.2. 593 1952 Unknown [id number] 2.16.840.1.297575.3.579.2. 175 1952 Unknown [id number] 2.16.840.1.584160.3.579.2. 175 Medicare Self-pay Unknown 1 - [facility] hcare Dual Complet [id number] [id number]. [id number] Social History Date Type Detail Facility Start: 1950 Sex Assigned At Female [facility] Sex Assigned At [employer] Other Assertion Currently not se xually active (finding) [facility] Assertion Cigarette smoker (finding) [facility] [facility] Assertion Smoker (finding) [facility] Assertion Moderate cigaret te smoker (10-19 cigs/day) (finding) [facility] Assertion Exposure to poll ution (event) [facility] Assertion Gender identity finding (finding) [facility] Assertion Finding of sexua l orientation (finding) [facility] Tobacco smoking status Unknown if ever smoked [facility] Assertion History of disor vivian (situation) [facility] Assertion Emotional stress (finding) [facility] Assertion Finding of resid ence and accommodation circumstances (finding) [facility] Assertion Light cigarette smoker (1-9 cigs/day) (finding) [facility] Start: 1950 Sex Assigned At Not on file SHAWNA BRIDGETT [employer] [facility] Work Phone: NEGATED: Highlighted row - - [facility] Work Phone: NEGATED: Highlighted row Assertion Current drinker of alcohol (finding) [facility] NEGATED: Highlighted row Assertion Finding relating to drug misuse behavior (finding) [facility] NEGATED: Highlighted row Assertion [facility] NEGATED: Highlighted row Assertion Sexually active (finding) [facility] NEGATED: Highlighted row Assertion Exposure to pollution (event) [facility] Medical Equipment Procedure Code Equipment Code Equipment Origin al Text Equipment Identifier Dates BD Pen Needle Na no 2nd Gen 32G X 4 MM Miscellaneous [id number] Start: 07-23-2022 End: 08-02-2022 BD Pen Needle Na no 2nd Gen 32G X 4 MM Miscellaneous [id number] Start: 08-28-2022 BD Pen Needle Na no 2nd Gen 32G X 4 MM Miscellaneous [id number] Start: 08-22-2022 End: 08-02-2022 Functional Status Date Assessment Result Facility NEGATED: Highlighted row Functional performance Functional status health issues are not documented [facility] Work Phone: Mental Status Date Assessment Result Facility Cognitive function Moderate recu rrent major depression Moderate recurrent major depression (disorder) [facility] Work Phone: NEGATED: Highlighted row Cognitive function [Interpretation] Cognitive status health issues are not documented Disease [facility] Work Phone: Clinical Notes 09-21-2021 to 04-21-2023 Note Date & Type Note Facility 04-21-2023 Instructions Includes: Instructions for all patient encounters Intervention and counseling on cessation of tobacco use, 3-10 minutes Discussed medication and nicotine replacement for tobacco cessation Last Documented On 3 1:05PM ; [facility] Intervention and counseling on cessation of tobacco use, 3-10 minutes Discussed medication and nicotine replacement for tobacco cessation Last Documented On 3 1:02PM ; [facility] Intervention and counseling on cessation of tobacco use, 3-10 minutes Discussed medication and nicotine replacement for tobacco cessation Last Documented On 3 1:13PM ; [facility] Education and Decision Aids were provided during visit for: [facility] offered active and suppo rtive listening, validated emotions and feelings, and processed current stressors with being in the hospital. ~[facility] encouraged patient to utilize positive supports and coping skills. ~ Last Documented On 3 1:42PM ; [facility] Discussed nutritional needs teach healthy choices including fruits and vegetables Last Documented On 3 2:16PM ; [facility] Patient education about a pr oper diet 35.7 Last Documented On 3 2:16PM ; [facility] Patient education about phys ical activity benefits Last Documented On 3 10:09PM ; [facility] Patient education about medi cation Last Documented On 3 10:09PM ; [facility] Patient education about ment al health Last Documented On 3 10:09PM ; [facility] Discussed concerns about exe rcise : promote physical activity Last Documented On 3 2:16PM ; [facility] Not requesting contraception Last Documented On 3 2:16PM ; [facility] Discussed nutritional needs teach healthy choices including fruits and vegetables Last Documented On 3 2:25PM ; [facility] Patient education about a pr oper diet 37.4 Last Documented On 3 2:25PM ; [facility] Patient education about phys ical activity benefits Last Documented On 3 2:50PM ; [facility] Patient education about medi cation Last Documented On 3 2:50PM ; [facility] Patient education about ment al health Last Documented On 3 2:50PM ; [facility] Discussed concerns about exe rcise : promote physical activity Last Documented On 3 2:25PM ; Count includes the [facility] encouraged patient to ut ilize positive supports and coping skills. ~P encouraged patient to contact [facility] if they need any additional support or resources. ~ Last Documented On 3 10:03PM ; [facility] Discussed nutritional needs teach healthy choices including fruits and vegetables Last Documented On 3 10:23AM ; [facility] Patient education about a pr oper diet 36.7 Last Documented On 3 10:23AM ; [facility] Patient education about phys ical activity benefits Last Documented On 3 1:07PM ; [facility] Patient education about medi cation Last Documented On 3 1:07PM ; [facility] Patient education about ment al health Last Documented On 3 1:07PM ; [facility] Discussed concerns about exe rcise : promote physical activity Last Documented On 3 10:23AM ; Count includes the [facility] introduced patient to [facility] integrated model of care. ~P offered active and supportive listening, normalized emotions and feelings, and processed current stressors. ~Discussed healthy coping skills and positive supports in patient's life. ~Discussed healthy lifestyle behaviors. ~ Last Documented On 3 12:10AM ; [facility] Discussed nutritional needs 36 teach healthy choices including fruits and vegetables Last Documented On 3 12:20PM ; [facility] Patient education about a pr oper diet 36 Last Documented On 3 12:20PM ; [facility] Discussed concerns about exe rcise : promote physical activity Last Documented On 3 12:20PM ; [facility] Referred Patient to a Diabet es Self-Management Program Last Documented On 3 1:46PM ; [facility] Work Phone: 1(286) 611-243512-02-2023 Instructions Includes: Instructions for all patient encounters Instructions to patient Intervention and counseling on cessation of tobacco use, 3-10 minutes Discussed medication and nicotine replacement for tobacco cessation Last Documented On 3 1:05PM ; [facility] Intervention and counseling on cessation of tobacco use, 3-10 minutes Discussed medication and nicotine replacement for tobacco cessation Last Documented On 3 1:02PM ; [facility] Intervention and counseling on cessation of tobacco use, 3-10 minutes Discussed medication and nicotine replacement for tobacco cessation Last Documented On 3 1:13PM ; [facility] Education and Decision Aids were provided during visit for: [facility] offered active and suppo rtive listening, validated emotions and feelings, and processed current stressors with being in the hospital. ~[facility] encouraged patient to utilize positive supports and coping skills. ~ Last Documented On 3 1:42PM ; [facility] Discussed nutritional needs teach healthy choices including fruits and vegetables Last Documented On 3 2:16PM ; [facility] Patient education about a pr oper diet 35.7 Last Documented On 3 2:16PM ; [facility] Discussed concerns about exe rcise : promote physical activity Last Documented On 3 2:16PM ; [facility] Not requesting contraception Last Documented On 3 2:16PM ; [facility] Discussed nutritional needs teach healthy choices including fruits and vegetables Last Documented On 3 2:25PM ; [facility] Patient education about a pr oper diet 37.4 Last Documented On 3 2:25PM ; [facility] Patient education about phys ical activity benefits Last Documented On 3 2:50PM ; [facility] Patient education about medi cation Last Documented On 3 2:50PM ; [facility] Patient education about ment al health Last Documented On 3 2:50PM ; [facility] Discussed concerns about exe rcise : promote physical activity Last Documented On 3 2:25PM ; Count includes the [facility] encouraged patient to ut ilize positive supports and coping skills. ~[facility] encouraged patient to contact [facility] if they need any additional support or resources. ~ Last Documented On 3 10:03PM ; [facility] Discussed nutritional needs teach healthy choices including fruits and vegetables Last Documented On 3 10:23AM ; [facility] Patient education about a pr oper diet 36.7 Last Documented On 3 10:23AM ; [facility] Patient education about phys ical activity benefits Last Documented On 3 1:07PM ; [facility] Patient education about medi cation Last Documented On 3 1:07PM ; [facility] Patient education about ment al health Last Documented On 3 1:07PM ; [facility] Discussed concerns about exe rcise : promote physical activity Last Documented On 3 10:23AM ; Count includes the [facility] introduced patient to [facility] integrated model of care. ~[facility] offered active and supportive listening, normalized emotions and feelings, and processed current stressors. ~Discussed healthy coping skills and positive supports in patient's life. ~Discussed healthy lifestyle behaviors. ~ Last Documented On 3 12:10AM ; [facility] Discussed nutritional needs 36 teach healthy choices including fruits and vegetables Last Documented On 3 12:20PM ; [facility] Patient education about a pr oper diet 36 Last Documented On 3 12:20PM ; [facility] Discussed concerns about exe rcise : promote physical activity Last Documented On 3 12:20PM ; [facility] Referred Patient to a Diabet es Self-Management Program Last Documented On 3 1:46PM ; [facility] Work Phone: 1(494) 560-372211-30-2023 Evaluation note Includes: Assessments for all patient encounters Findings Encounter Date Moderate recurrent major depression BH E stablished Patient with Janina Meghan CHILD ADVOCATE-S 04/18/2023 Last Documented On 3 1:42PM ; [facility] [Z68.35 - Body mass index [B FL] 35.0-35.9, adult] assessment of body mass index Medical Established Patient with Latia Sparks AUTOMOTIVE BRAKE TECHNICIAN 04/18/2023 Last Documented On 3 2:51PM ; [facility] Assessment of body mass index Medical Es tablished Patient with Latia Sparks AUTOMOTIVE BRAKE TECHNICIAN 11/15/2022 Last Documented On 3 2:53PM ; [facility] Generalized anxiety disorder Establis hed Patient with Janina Meghan CHILD ADVOCATE-S 11/08/2022 Last Documented On 3 10:03PM ; [facility] Hyperlipidemia Nurse Visit with Latia Hoffmanim [facility] 11/08/2022 Last Documented On 3 2:16PM ; [facility] Venipuncture was performed Nurse Visit with Kathia Farooqahim [facility] 11/08/2022 Last Documented On 3 2:16PM ; [facility] [Z68.36 - Body mass index [B FL] 36.0-36.9, adult] assessment of body mass index Medical Established Patient with Latia Sparks AUTOMOTIVE BRAKE TECHNICIAN 08/02/2022 Last Documented On 3 1:36PM ; [facility] Intervention and counseling on cessation of tobacco use, 3-10 minutes Discussed medication and nicotine replacement for tobacco cessation Medical Established Patient with Latia Sparks AUTOMOTIVE BRAKE TECHNICIAN 08/02/2022 Last Documented On 3 1:36PM ; [facility] Visit for: person consulting for explanation of examination or test findings Medical Established Patient with Latia Sparks AUTOMOTIVE BRAKE TECHNICIAN 08/02/2022 Last Documented On 3 1:36PM ; [facility] Generalized anxiety disorder Establis hed Patient with Cinthia Farfan CHILD ADVOCATE-S 07/23/2022 Last Documented On 3 12:17AM ; [facility] Intervention and counseling on cessation of tobacco use, 3-10 minutes Discussed medication and nicotine replacement for tobacco cessation Established Patient with Cinthia Farfan CHILD ADVOCATE-S 07/23/2022 Last Documented On 3 12:17AM ; [facility] Moderate recurrent major depression E stablished Patient with Cinthia Stone CHILD ADVOCATE-S 07/23/2022 Last Documented On 3 12:17AM ; [facility] Nicotine dependence Established Patient with Cinthia Stone CHILD ADVOCATE-S 07/23/2022 Last Documented On 3 12:17AM ; [facility] Primary insomnia Established Patient with Deysi Farfan CHILD ADVOCATE-S 07/23/2022 Last Documented On 3 12:17AM ; [facility] [Z68.36 - Body mass index [B FL] 36.0-36.9, adult] assessment of body mass index Medical New Patient with Latia Hoffmanim AUTOMOTIVE BRAKE TECHNICIAN 07/23/2022 Last Documented On 3 2:32PM ; [facility] Diabetes Risk Test Score was nine score 07/23/2022 Medical New Patient with Latia Hoffmanim AUTOMOTIVE BRAKE TECHNICIAN 07/23/2022 Last Documented On 3 2:32PM ; [facility] Intervention and counseling on cessation of tobacco use, 3-10 minutes Discussed medication and nicotine replacement for tobacco cessation Medical New Patient with Latia Sparks AUTOMOTIVE BRAKE TECHNICIAN 07/23/2022 Last Documented On 3 2:32PM ; [facility] Screening for Hep C Medical New Patient with Nad yelitza Sparks AUTOMOTIVE BRAKE TECHNICIAN 07/23/2022 Last Documented On 3 2:32PM ; [facility] Screening for HIV Medical New Patient with Hiren a Sparks AUTOMOTIVE BRAKE TECHNICIAN 07/23/2022 Last Documented On 3 2:32PM ; [facility] Venipuncture was performed Medical New Patient w dmitry Hoffmanim AUTOMOTIVE BRAKE TECHNICIAN 07/23/2022 Last Documented On 3 2:32PM ; [facility] Visit for routine adult H&P without abnormal findings Medical New Patient with Latia Sparks AUTOMOTIVE BRAKE TECHNICIAN 07/23/2022 Last Documented On 3 2:32PM ; [facility] Work Phone: 1(103) 253-253411-30-2023 Evaluation note Includes: Assessments for all patient encounters Findings Encounter Date Moderate recurrent major depression BH E stablished Patient with Janina Meghan CHILD ADVOCATE-S 04/18/2023 Last Documented On 3 1:42PM ; [facility] [Z68.35 - Body mass index [B FL] 35.0-35.9, adult] assessment of body mass index Medical Established Patient with Latia Sparks AUTOMOTIVE BRAKE TECHNICIAN 04/18/2023 Last Documented On 3 10:11PM ; [facility] Nicotine dependence Medical Established Patient with Latia Sparks AUTOMOTIVE BRAKE TECHNICIAN 04/18/2023 Last Documented On 3 10:11PM ; [facility] 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 Medical Established Patient with Latia Sparks AUTOMOTIVE BRAKE TECHNICIAN 04/18/2023 Last Documented On 3 10:11PM ; [facility] Assessment of body mass index Medical Es tablished Patient with Latia Sparks AUTOMOTIVE BRAKE TECHNICIAN 11/15/2022 Last Documented On 3 2:53PM ; [facility] Generalized anxiety disorder BH Establis hed Patient with Janina Meghan CHILD ADVOCATE-S 11/08/2022 Last Documented On 3 10:03PM ; [facility] Hyperlipidemia Nurse Visit with Latia Sparks AUTOMOTIVE BRAKE TECHNICIAN 11/08/2022 Last Documented On 3 2:16PM ; [facility] Venipuncture was performed Nurse Visit with Genarobob gamino Sparks AUTOMOTIVE BRAKE TECHNICIAN 11/08/2022 Last Documented On 3 2:16PM ; [facility] [Z68.36 - Body mass index [B FL] 36.0-36.9, adult] assessment of body mass index Medical Established Patient with Latia Sparks AUTOMOTIVE BRAKE TECHNICIAN 08/02/2022 Last Documented On 3 1:36PM ; [facility] Intervention and counseling on cessation of tobacco use, 3-10 minutes Discussed medication and nicotine replacement for tobacco cessation Medical Established Patient with Latia Sparks AUTOMOTIVE BRAKE TECHNICIAN 08/02/2022 Last Documented On 3 1:36PM ; [facility] Visit for: person consulting for explanation of examination or test findings Medical Established Patient with Latia Hoffmanim AUTOMOTIVE BRAKE TECHNICIAN 08/02/2022 Last Documented On 3 1:36PM ; [facility] Generalized anxiety disorder Establis hed Patient with Cinthia Stone CHILD ADVOCATE-S 07/23/2022 Last Documented On 3 12:17AM ; [facility] Intervention and counseling on cessation of tobacco use, 3-10 minutes Discussed medication and nicotine replacement for tobacco cessation Established Patient with Cinthia Stone CHILD ADVOCATE-S 07/23/2022 Last Documented On 3 12:17AM ; [facility] Moderate recurrent major depression E stablished Patient with Cinthia Stone CHILD ADVOCATE-S 07/23/2022 Last Documented On 3 12:17AM ; [facility] Nicotine dependence Established Patient with Cinthia Stone CHILD ADVOCATE-S 07/23/2022 Last Documented On 3 12:17AM ; [facility] Primary insomnia Established Patient with Deysi pugh Stone CHILD ADVOCATE-S 07/23/2022 Last Documented On 3 12:17AM ; [facility] [Z68.36 - Body mass index [B FL] 36.0-36.9, adult] assessment of body mass index Medical New Patient with Latia Hoffmanim AUTOMOTIVE BRAKE TECHNICIAN 07/23/2022 Last Documented On 3 2:32PM ; [facility] Diabetes Risk Test Score was nine score 07/23/2022 Medical New Patient with Latia Hoffmanim AUTOMOTIVE BRAKE TECHNICIAN 07/23/2022 Last Documented On 3 2:32PM ; [facility] Intervention and counseling on cessation of tobacco use, 3-10 minutes Discussed medication and nicotine replacement for tobacco cessation Medical New Patient with Latia Hoffmanim AUTOMOTIVE BRAKE TECHNICIAN 07/23/2022 Last Documented On 3 2:32PM ; [facility] Screening for Hep C Medical New Patient with Nad yelitza Hoffmanim AUTOMOTIVE BRAKE TECHNICIAN 07/23/2022 Last Documented On 3 2:32PM ; [facility] Screening for HIV Medical New Patient with Hiren Sparks AUTOMOTIVE BRAKE TECHNICIAN 07/23/2022 Last Documented On 3 2:32PM ; [facility] Venipuncture was performed Medical New Patient w dmitry Sparks AUTOMOTIVE BRAKE TECHNICIAN 07/23/2022 Last Documented On 3 2:32PM ; [facility] Visit for routine adult H&P without abnormal findings Medical New Patient with Latia Sparks AUTOMOTIVE BRAKE TECHNICIAN 07/23/2022 Last Documented On 3 2:32PM ; [facility] Work Phone: 1(876) 603-230511-30-2023 History general Narrative - Reported Includes: Medical History in patient's chart Description Last Updated Not planning to have a baby in the next 12 months 04/18/2023 Last Documented On 3 10:11PM ; [facility] No previous suicide attempt 07/24/2022 Last Documented On 3 12:17AM ; [facility] A recent examination by an ophthalmologi st 07/21/2022 07/23/2022 Last Documented On 3 2:32PM ; [facility] History of diabetes mellitus 07/23/2022 Last Documented On 3 2:32PM ; [facility] History of systemic hypertension 023 Last Documented On 3 2:32PM ; [facility] No previous hospitalizations 07/23/2022 Last Documented On 3 2:32PM ; [facility] Recent immunization for flu 07/23/2022 Last Documented On 3 2:32PM ; [facility] Work Phone: 1(563) 167-874411-30-2023 Progress note* Progress note Date Encounter Last Documented by 04/18/2023 BH Established Patient Last docu mented on 04/20/2023; 1:42 PM, Janina FRIED; [facility] Active Problems & Conditions - 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 Patient [...] previous hospitalizations. A recent examination by an route service representative 07/21/2022. Immunization History: Recent immunization for flu. [...] Health Reminders - Eye Exam satisfied 07/21/2022. [facility]11-30-2023 Progress note* Progress note Date Encounter Last Documented by 04/18/2023 Medical Established Patient Last documented on 04/21/2023; 10:11 PM, Latia Sparks AUTOMOTIVE BRAKE TECHNICIAN; [facility] Active Problems & Conditions - E11.610 [...] previous hospitalizations. A recent examination by an route service representative 07/21/2022. Immunization History: Recent immunization for flu. [...] dhaliwal), and gender identity Female. Allergies - [place] Reaction: Hives / Urticaria, Shock - Mellaril [...] BP-Sitting R138/80 mmHg BP Cuff SizeLarge Pulse Rate-Yxcuhbl14 bpm Respiration Rate18 per min Temp-Oral97.8 F Fzdvxx36 in Gsapwr561 lbs Body Mass Index35.7 kg/m2 Body Surface Area2 m2 Oxygen Vxbefqhpcr51 % O2 DeviceNone (Room Air) NjF877 % Vital Signs: - Systolic blood pressure [...] + 0 pt : Not at all. 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 A recent examination by an route service representative 07/21/2022. Immunization History: Recent immunization for flu. Diagnoses: Systemic hypertension. Diabetes mellitus Surgical: - Cholecystectomy - Hernia repair - Hysterectomy - Tubal ligation Allergies - [place] Reaction: Hives / Urticaria, Shock - Mellaril - PENICILLINS Reaction: Hives / Urticaria - Topamax Family History Maternal: Type 1 diabetes mellitus Plan StartCited- Acute sinusitis, unspecified Azithromycin 250 MG tablet 500 mg by mouth x 1 day 1, then 250 mg by mouth daily x 4 days., 5 days, 0 refills EndCited [facility]11-13-2023 Instructions Includes: Instructions for all patient encounters Instructions to patient Intervention and counseling on cessation of tobacco use, 3-10 minutes Discussed medication and nicotine replacement for tobacco cessation Last Documented On 3 1:05PM ; [facility] Intervention and counseling on cessation of tobacco use, 3-10 minutes Discussed medication and nicotine replacement for tobacco cessation Last Documented On 3 1:02PM ; [facility] Intervention and counseling on cessation of tobacco use, 3-10 minutes Discussed medication and nicotine replacement for tobacco cessation Last Documented On 3 1:13PM ; [facility] Education and Decision Aids were provided during visit for: Discussed nutritional needs teach healthy choices including fruits and vegetables Last Documented On 3 2:25PM ; [facility] Patient education about a pr oper diet 37.4 Last Documented On 3 2:25PM ; [facility] Patient education about phys ical activity benefits Last Documented On 3 2:50PM ; [facility] Patient education about medi cation Last Documented On 3 2:50PM ; [facility] Patient education about ment al health Last Documented On 3 2:50PM ; [facility] Discussed concerns about exe rcise : promote physical activity Last Documented On 3 2:25PM ; Count includes the [facility] encouraged patient to ut ilize positive supports and coping skills. ~[facility] encouraged patient to contact [facility] if they need any additional support or resources. ~ Last Documented On 3 10:03PM ; [facility] Discussed nutritional needs teach healthy choices including fruits and vegetables Last Documented On 3 10:23AM ; [facility] Patient education about a pr oper diet 36.7 Last Documented On 3 10:23AM ; [facility] Patient education about phys ical activity benefits Last Documented On 3 1:07PM ; [facility] Patient education about medi cation Last Documented On 3 1:07PM ; [facility] Patient education about ment al health Last Documented On 3 1:07PM ; [facility] Discussed concerns about exe rcise : promote physical activity Last Documented On 3 10:23AM ; Count includes the [facility] introduced patient to [facility] integrated model of care. ~P offered active and supportive listening, normalized emotions and feelings, and processed current stressors. ~Discussed healthy coping skills and positive supports in patient's life. ~Discussed healthy lifestyle behaviors. ~ Last Documented On 3 12:10AM ; [facility] Discussed nutritional needs 36 teach healthy choices including fruits and vegetables Last Documented On 3 12:20PM ; [facility] Patient education about a pr oper diet 36 Last Documented On 3 12:20PM ; [facility] Discussed concerns about exe rcise : promote physical activity Last Documented On 3 12:20PM ; [facility] Referred Patient to a Diabet es Self-Management Program Last Documented On 3 1:46PM ; [facility] Work Phone: 1(599) 760-187806-29-2023 Evaluation note Includes: Assessments for all patient encounters Findings Encounter Date Assessment of body mass index Medical Es tablished Patient with Latia Sparks [facility] 11/15/2022 Last Documented On 3 2:53PM ; [facility] Generalized anxiety disorder BH Establis hed Patient with Janina PARRISH-S 11/08/2022 Last Documented On 3 10:03PM ; [facility] Hyperlipidemia Nurse Visit with Latia Sparks [facility] 11/08/2022 Last Documented On 3 2:16PM ; [facility] Venipuncture was performed Nurse Visit with Kathia Sparks [facility] 11/08/2022 Last Documented On 3 2:16PM ; [facility] [Z68.36 - Body mass index [B FL] 36.0-36.9, adult] assessment of body mass index Medical Established Patient with Latia Sparks [facility] 08/02/2022 Last Documented On 3 1:36PM ; [facility] Intervention and counseling on cessation of tobacco use, 3-10 minutes Discussed medication and nicotine replacement for tobacco cessation Medical Established Patient with Latia Sparks [employer] 08/02/2022 Last Documented On 3 1:36PM ; [facility] Visit for: person consulting for explanation of examination or test findings Medical Established Patient with Latia Sparks [employer] 08/02/2022 Last Documented On 3 1:36PM ; [facility] Generalized anxiety disorder Establis hed Patient with Cinthia Stone [facility] 07/23/2022 Last Documented On 3 12:17AM ; [facility] Intervention and counseling on cessation of tobacco use, 3-10 minutes Discussed medication and nicotine replacement for tobacco cessation Established Patient with Cinthia Stone [facility] 07/23/2022 Last Documented On 3 12:17AM ; [facility] Moderate recurrent major depression E stablished Patient with Cinthia Stone [facility] 07/23/2022 Last Documented On 3 12:17AM ; [facility] Nicotine dependence Established Patient with Cinthia Stone [facility] 07/23/2022 Last Documented On 3 12:17AM ; [facility] Primary insomnia Established Patient with Deysi pugh Stone [facility] [employer] 07/23/2022 Last Documented On 3 12:17AM ; [facility] [Z68.36 - Body mass index [B FL] 36.0-36.9, adult] assessment of body mass index Medical New Patient with Latia Sparks [employer]CH[employer] 07/23/2022 Last Documented On 3 2:32PM ; [facility] Diabetes Risk Test Score was nine score 07/23/2022 Medical New Patient with Latia Sparks [employer] TECHNIC[employer] 07/23/2022 Last Documented On 3 2:32PM ; [facility] Intervention and counseling on cessation of tobacco use, 3-10 minutes Discussed medication and nicotine replacement for tobacco cessation Medical New Patient with Latia Sparks [employer] TECHNICIAN 07/23/2022 Last Documented On 3 2:32PM ; [facility] Screening for Hep C Medical New Patient with Nad yelitza Sparks [employer] TECHNICIAN 07/23/2022 Last Documented On 3 2:32PM ; [facility] Screening for HIV Medical New Patient with Hiren Sparks [employer] TECHNICIAN 07/23/2022 Last Documented On 3 2:32PM ; [facility] Venipuncture was performed Medical New Patient w dmitry Sparks [facility] 07/23/2022 Last Documented On 3 2:32PM ; [facility] Visit for routine adult H&P without abnormal findings Medical New Patient with Latia Sparks [employer] TECHNICIAN 07/23/2022 Last Documented On 3 2:32PM ; [facility] Work Phone: 1(663) 577-326806-29-2023 Progress note* Progress note Date Encounter Last Documented by 11/15/2022 Medical Established Patient Last documented on 11/15/2022; 2:53 PM, Latia Sparks [facility]; [facility] Active Problems & Conditions - E11.610 [...] The patient [facility] a [facility] that does not follow any diabetic or [...] previous hospitalizations. A recent examination by an route service representative 07/21/2022. Immunization History: Recent immunization for flu. [...] 11/15/2022 02:17 pm BP-Sitting R143/78 mmHg Pulse Rate-Xrgsxde58 bpm Atzjqe05 in Kgxgau080 lbs Body Mass Index37.4 kg/m2 Body Surface Area2 m2 Oxygen Jctkyozscc54 % - Vitals taken 11/15/2022 02:24 pm BP-Ggwhcpm133/82 mmHg General Appearance: - Awake. - Alert. [...] and diastolic 80-89 mmHg diastolic 80-89 mmHg. [facility]06-24-2023 Instructions Includes: Instructions for all patient encounters Instructions to patient Intervention and counseling on cessation of tobacco use, 3-10 minutes Discussed medication and nicotine replacement for tobacco cessation Last Documented On 3 1:05PM ; [facility] Intervention and counseling on cessation of tobacco use, 3-10 minutes Discussed medication and nicotine replacement for tobacco cessation Last Documented On 3 1:02PM ; [facility] Intervention and counseling on cessation of tobacco use, 3-10 minutes Discussed medication and nicotine replacement for tobacco cessation Last Documented On 3 1:13PM ; [facility] Education and Decision Aids were provided during visit for: [facility] encouraged patient to ut ilize positive supports and coping skills. ~[facility] encouraged patient to contact [facility] if they need any additional support or resources. ~ Last Documented On 3 10:03PM ; [facility] Discussed nutritional needs teach healthy choices including fruits and vegetables Last Documented On 3 10:23AM ; [facility] Patient education about a pr oper diet 36.7 Last Documented On 3 10:23AM ; [facility] Patient education about phys ical activity benefits Last Documented On 3 1:07PM ; [facility] Patient education about medi cation Last Documented On 3 1:07PM ; [facility] Patient education about ment al health Last Documented On 3 1:07PM ; [facility] Discussed concerns about exe rcise : promote physical activity Last Documented On 3 10:23AM ; Count includes the [facility] introduced patient to [facility] integrated model of care. ~[facility] offered active and supportive listening, normalized emotions and feelings, and processed current stressors. ~Discussed healthy coping skills and positive supports in patient's life. ~Discussed healthy lifestyle behaviors. ~ Last Documented On 3 12:10AM ; [facility] Discussed nutritional needs 36 teach healthy choices including fruits and vegetables Last Documented On 3 12:20PM ; [facility] Patient education about a pr oper diet 36 Last Documented On 3 12:20PM ; [facility] Discussed concerns about exe rcise : promote physical activity Last Documented On 3 12:20PM ; [facility] Referred Patient to a Diabet es Self-Management Program Last Documented On 3 1:46PM ; [facility] Work Phone: 1(945) 849-171906-22-2023 Evaluation note Includes: Assessments for all patient encounters Findings Encounter Date Hyperlipidemia Nurse Visit with Latia Sparks [facility] 11/08/2022 Last Documented On 3 2:16PM ; [facility] Venipuncture was performed Nurse Visit with Kathia Sparks [facility] 11/08/2022 Last Documented On 3 2:16PM ; [facility] [Z68.36 - Body mass index [B FL] 36.0-36.9, adult] assessment of body mass index Medical Established Patient with Latia Sparks [facility] 08/02/2022 Last Documented On 3 1:36PM ; [facility] Intervention and counseling on cessation of tobacco use, 3-10 minutes Discussed medication and nicotine replacement for tobacco cessation Medical Established Patient with Latia Sparks [facility] 08/02/2022 Last Documented On 3 1:36PM ; [facility] Visit for: person consulting for explanation of examination or test findings Medical Established Patient with Latia Sparks [facility] 08/02/2022 Last Documented On 3 1:36PM ; [facility] Generalized anxiety disorder BH Establis hed Patient with Cinthia Stone [facility] [employer] 07/23/2022 Last Documented On 3 12:17AM ; [facility] Intervention and counseling on cessation of tobacco use, 3-10 minutes Discussed medication and nicotine replacement for tobacco cessation Established Patient with Cinthia Stone [employer] [employer] 07/23/2022 Last Documented On 3 12:17AM ; [facility] Moderate recurrent major depression E stablished Patient with Cinthia Stone [employer] 07/23/2022 Last Documented On 3 12:17AM ; [facility] Nicotine dependence Established Patient with Cinthia Stone [employer] 07/23/2022 Last Documented On 3 12:17AM ; [facility] Primary insomnia Established Patient with Deysi pugh Stone [employer] 07/23/2022 Last Documented On 3 12:17AM ; [facility] [Z68.36 - Body mass index [B FL] 36.0-36.9, adult] assessment of body mass index Medical New Patient with Latia Hoffmanim [employer]KE TECHNICIAN 07/23/2022 Last Documented On 3 2:32PM ; [facility] Diabetes Risk Test Score was nine score 07/23/2022 Medical New Patient with Latia Sparks [employer] B[employer] TECHNICIAN 07/23/2022 Last Documented On 3 2:32PM ; [facility] Intervention and counseling on cessation of tobacco use, 3-10 minutes Discussed medication and nicotine replacement for tobacco cessation Medical New Patient with Latia Sparks AUTOMOT[employer] BRAKE TECHNICIAN 07/23/2022 Last Documented On 3 2:32PM ; [facility] Screening for Hep C Medical New Patient with Nad yelitzakathryn FarooqSparks [employer] B[employer]KE TECHNICIAN 07/23/2022 Last Documented On 3 2:32PM ; [facility] Screening for HIV Medical New Patient with Hiren a Sparks [employer] B[employer]KE TECHNICIAN 07/23/2022 Last Documented On 3 2:32PM ; [facility] Venipuncture was performed Medical New Patient w dmitry Hoffmanim [facility] 07/23/2022 Last Documented On 3 2:32PM ; [facility] Visit for routine adult H&P without abnormal findings Medical New Patient with Latiakathryn Hoffmanim [employer]OMOT[employer] BRAKE TECHNICIAN 07/23/2022 Last Documented On 3 2:32PM ; [facility] Work Phone: 1(663) 912-280806-22-2023 Evaluation note Includes: Assessments for all patient encounters Findings Encounter Date Generalized anxiety disorder BH Establis hed Patient with Janina Meghan [employer] [employer] 11/08/2022 Last Documented On 3 10:03PM ; [facility] Hyperlipidemia Nurse Visit with Latia Hoffmanim [employer] B[employer]KE TECHNICIAN 11/08/2022 Last Documented On 3 2:16PM ; [facility] Venipuncture was performed Nurse Visit with Kathia Hoffmanim [facility] 11/08/2022 Last Documented On 3 2:16PM ; [facility] [Z68.36 - Body mass index [B FL] 36.0-36.9, adult] assessment of body mass index Medical Established Patient with Latia Sparks [employer] B[employer]KE TECHNICIAN 08/02/2022 Last Documented On 3 1:36PM ; [facility] Intervention and counseling on cessation of tobacco use, 3-10 minutes Discussed medication and nicotine replacement for tobacco cessation Medical Established Patient with Latia Sparks [employer]OM[employer] BRAKE TECHNICIAN 08/02/2022 Last Documented On 3 1:36PM ; [facility] Visit for: person consulting for explanation of examination or test findings Medical Established Patient with Latia Hoffmanim AUTOMOT[employer] BRAKE TECHNICIAN 08/02/2022 Last Documented On 3 1:36PM ; [facility] Generalized anxiety disorder Establis hed Patient with Cinthia Stone [employer] 07/23/2022 Last Documented On 3 12:17AM ; [facility] Intervention and counseling on cessation of tobacco use, 3-10 minutes Discussed medication and nicotine replacement for tobacco cessation Established Patient with Cinthia Stone [employer] 07/23/2022 Last Documented On 3 12:17AM ; [facility] Moderate recurrent major depression E stablished Patient with Cinthia Stone [employer] 07/23/2022 Last Documented On 3 12:17AM ; [facility] Nicotine dependence Established Patient with Cinthia Stone [employer] 07/23/2022 Last Documented On 3 12:17AM ; [facility] Primary insomnia Established Patient with Deysi pugh Stone [employer] 07/23/2022 Last Documented On 3 12:17AM ; [facility] [Z68.36 - Body mass index [B FL] 36.0-36.9, adult] assessment of body mass index Medical New Patient with Latia Sparks AUTOMOT[employer] BRAKE TECHNICIAN 07/23/2022 Last Documented On 3 2:32PM ; [facility] Diabetes Risk Test Score was nine score 07/23/2022 Medical New Patient with Latia Sparks AUTOMOT[employer] BRAKE TECHNICIAN 07/23/2022 Last Documented On 3 2:32PM ; [facility] Intervention and counseling on cessation of tobacco use, 3-10 minutes Discussed medication and nicotine replacement for tobacco cessation Medical New Patient with Latia Sparks AUTOMOTIVE BRAKE TECHNICIAN 07/23/2022 Last Documented On 3 2:32PM ; [facility] Screening for Hep C Medical New Patient with Nad yelitza Sparks AUTOMOTIVE BRAKE TECHNICIAN 07/23/2022 Last Documented On 3 2:32PM ; [facility] Screening for HIV Medical New Patient with Hiren Sparks AUTOMOT[employer] BRAKE TECHNICIAN 07/23/2022 Last Documented On 3 2:32PM ; [facility] Venipuncture was performed Medical New Patient w dmitry Sparks [employer]OMOT[employer] BRAKE TECHNICIAN 07/23/2022 Last Documented On 3 2:32PM ; [facility] Visit for routine adult H&P without abnormal findings Medical New Patient with Latia Sparks AUTOMOT[employer] BRAKE TECHNICIAN 07/23/2022 Last Documented On 3 2:32PM ; [facility] Work Phone: 1(915) 137-637606-22-2023 Progress note* Progress note Date Encounter Last Documented by 11/08/2022 Nurse Visit Last documented on 11/08/2022; 2:16 PM, Latia Sparks [facility]; [facility] Active Problems & Conditions - E11.610 [...] previous hospitalizations. A recent examination by an route service representative 07/21/2022. Immunization History: Recent immunization for flu. 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 Patient [...] previous hospitalizations. A recent examination by an route service representative 07/21/2022. Immunization History: Recent immunization for flu. [...] - Collaborated with patient and provider: Counseling/Education [facility] encouraged patient to utilize positive supports and coping skills. [facility] encouraged patient to contact [facility] if they need any additional support or resources. . Plan [facility] to follow up with patient at next [...] + 0 pt : Not at all. [facility]06-22-2023 Instructions Includes: Instructions for all patient encounters Instructions to patient Intervention and counseling on cessation of tobacco use, 3-10 minutes Discussed medication and nicotine replacement for tobacco cessation Last Documented On 3 1:05PM ; [facility] Intervention and counseling on cessation of tobacco use, 3-10 minutes Discussed medication and nicotine replacement for tobacco cessation Last Documented On 3 1:02PM ; [facility] Intervention and counseling on cessation of tobacco use, 3-10 minutes Discussed medication and nicotine replacement for tobacco cessation Last Documented On 3 1:13PM ; [facility] Education and Decision Aids were provided during visit for: Discussed nutritional needs teach healthy choices including fruits and vegetables Last Documented On 3 10:23AM ; [facility] Patient education about a pr oper diet 36.7 Last Documented On 3 10:23AM ; [facility] Patient education about phys ical activity benefits Last Documented On 3 1:07PM ; [facility] Patient education about medi cation Last Documented On 3 1:07PM ; [facility] Patient education about ment al health Last Documented On 3 1:07PM ; [facility] Discussed concerns about exe rcise : promote physical activity Last Documented On 3 10:23AM ; Count includes the [facility] introduced patient to [facility] integrated model of care. ~P offered active and supportive listening, normalized emotions and feelings, and processed current stressors. ~Discussed healthy coping skills and positive supports in patient's life. ~Discussed healthy lifestyle behaviors. ~ Last Documented On 3 12:10AM ; [facility] Discussed nutritional needs 36 teach healthy choices including fruits and vegetables Last Documented On 3 12:20PM ; [facility] Patient education about a pr oper diet 36 Last Documented On 3 12:20PM ; [facility] Discussed concerns about exe rcise : promote physical activity Last Documented On 3 12:20PM ; [facility] Referred Patient to a Diabet es Self-Management Program Last Documented On 3 1:46PM ; [facility] Work Phone: 1(263) 497-908304-11-2023 NoteCONSULTATION CONSULTATION DATE: 08/28/2022 TO: Geraldo Prado [...] the lower extremities MEDICATION: Current medication includes Boerne 5 mg b.i.d. p.r.n. She reports that she has not been taking her Xanax. She reports the Boerne does seem to increase in her quality [...] our patients to inform us about any iydb-eyp-lbsqkfm medications or herbal remedies/nutritional supplements/alternative remedies. 2. [...] treatment options with their primary care provider.[id number] Progress note* Progress note Date Encounter Last Documented by 08/02/2022 Medical Established Patient Last documented on 08/02/2022; 1:36 PM, Latia MAYORGA; [facility] Active Problems & Conditions - E11.610 [...] results, Pt needs tresiba prescribed to the [facility] just for today. Referred Here No [...] has been provided. The patient lives a [facility]it[facility], where food is cooking Current Medication - [...] previous hospitalizations. A recent examination by an route service representative 07/21/2022. Immunization History: Recent immunization for flu. [...] BP-Sitting R138/82 mmHg BP Cuff SizeLarge Pulse Rate-Pldetde79 bpm Pulse RhythmRegular Respiration Rate18 per min Temp-Qmqsaljg39.5 F Bkyjou32 in Ujeimh083 lbs Body Mass Index36.7 kg/m2 Body Surface Area2 m2 Oxygen Guwwalabzi20 % O2 DeviceNone (Room Air) BgY642 % General Appearance: - Awake. - Alert. [...] and diastolic 80-89 mmHg diastolic 80-89 mmHg. [facility]03-16-2023 Instructions Includes: Instructions for all patient encounters Instructions to patient Intervention and counseling on cessation of tobacco use, 3-10 minutes Discussed medication and nicotine replacement for tobacco cessation Last Documented On 3 1:05PM ; [facility] Intervention and counseling on cessation of tobacco use, 3-10 minutes Discussed medication and nicotine replacement for tobacco cessation Last Documented On 3 1:02PM ; [facility] Intervention and counseling on cessation of tobacco use, 3-10 minutes Discussed medication and nicotine replacement for tobacco cessation Last Documented On 3 1:13PM ; [facility] Education and Decision Aids were provided during visit for: Discussed nutritional needs teach healthy choices including fruits and vegetables Last Documented On 3 10:23AM ; [facility] Patient education about a pr oper diet 36.7 Last Documented On 3 10:23AM ; [facility] Patient education about phys ical activity benefits Last Documented On 3 1:07PM ; [facility] Patient education about medi cation Last Documented On 3 1:07PM ; [facility] Patient education about ment al health Last Documented On 3 1:07PM ; [facility] Discussed concerns about exe rcise : promote physical activity Last Documented On 3 10:23AM ; [facility] introduced patient to [facility] integrated model of care. ~P offered active and supportive listening, normalized emotions and feelings, and processed current stressors. ~Discussed healthy coping skills and positive supports in patient's life. ~Discussed healthy lifestyle behaviors. ~ Last Documented On 3 12:10AM ; [facility] Discussed nutritional needs 36 teach healthy choices including fruits and vegetables Last Documented On 3 12:20PM ; [facility] Patient education about a pr oper diet 36 Last Documented On 3 12:20PM ; [facility] Discussed concerns about exe rcise : promote physical activity Last Documented On 3 12:20PM ; [facility] Referred Patient to a Diabet es Self-Management Program Last Documented On 3 1:46PM ; [facility] Work Phone: 1(424) 999-313603-16-2023 Instructions Includes: Instructions for all patient encounters Instructions to patient Intervention and counseling on cessation of tobacco use, 3-10 minutes Discussed medication and nicotine replacement for tobacco cessation Last Documented On 3 1:05PM ; [facility] Intervention and counseling on cessation of tobacco use, 3-10 minutes Discussed medication and nicotine replacement for tobacco cessation Last Documented On 3 1:02PM ; [facility] Intervention and counseling on cessation of tobacco use, 3-10 minutes Discussed medication and nicotine replacement for tobacco cessation Last Documented On 3 1:13PM ; [facility] Education and Decision Aids were provided during visit for: Discussed nutritional needs teach healthy choices including fruits and vegetables Last Documented On 3 10:23AM ; [facility] Patient education about a pr oper diet 36.7 Last Documented On 3 10:23AM ; [facility] Patient education about phys ical activity benefits Last Documented On 3 1:07PM ; [facility] Patient education about medi cation Last Documented On 3 1:07PM ; [facility] Patient education about ment al health Last Documented On 3 1:07PM ; [facility] Discussed concerns about exe rcise : promote physical activity Last Documented On 3 10:23AM ; [facility] introduced patient to [facility] integrated model of care. ~P offered active and supportive listening, normalized emotions and feelings, and processed current stressors. ~Discussed healthy coping skills and positive supports in patient's life. ~Discussed healthy lifestyle behaviors. ~ Last Documented On 3 12:10AM ; [facility] Discussed nutritional needs 36 teach healthy choices including fruits and vegetables Last Documented On 3 12:20PM ; [facility] Patient education about a pr oper diet 36 Last Documented On 3 12:20PM ; [facility] Discussed concerns about exe rcise : promote physical activity Last Documented On 3 12:20PM ; [facility] Referred Patient to a Diabet es Self-Management Program Last Documented On 3 1:46PM ; [facility] Work Phone: 1(637) 710-207103-07-2023 History general Narrative - Reported Includes: Medical History in patient's chart Description Last Updated No previous suicide attempt 07/24/2022 Last Documented On 3 12:17AM ; [facility] A recent examination by an ophthalmologi st 07/21/2022 07/23/2022 Last Documented On 3 2:32PM ; [facility] History of diabetes mellitus 07/23/2022 Last Documented On 3 2:32PM ; [facility] History of systemic hypertension 023 Last Documented On 3 2:32PM ; [facility] No previous hospitalizations 07/23/2022 Last Documented On 3 2:32PM ; [facility] Recent immunization for flu 07/23/2022 Last Documented On 3 2:32PM ; [facility] Work Phone: 1(908) 184-515903-07-2023 History general Narrative - Reported Includes: Medical History in patient's chart Description Last Updated No previous suicide attempt 07/24/2022 Last Documented On 3 12:17AM ; [facility] A recent examination by an ophthalmologi st 07/21/2022 07/23/2022 Last Documented On 3 2:32PM ; [facility] History of diabetes mellitus 07/23/2022 Last Documented On 3 2:32PM ; [facility] History of systemic hypertension 023 Last Documented On 3 2:32PM ; [facility] No previous hospitalizations 07/23/2022 Last Documented On 3 2:32PM ; [facility] Recent immunization for flu 07/23/2022 Last Documented On 3 2:32PM ; [facility] Work Phone: 1(378) 589-967503-07-2023 History general Narrative - Reported Includes: Medical History in patient's chart Description Last Updated No previous suicide attempt 07/24/2022 Last Documented On 3 12:17AM ; [facility] A recent examination by an ophthalmologi st 07/21/2022 07/23/2022 Last Documented On 3 2:32PM ; [facility] History of diabetes mellitus 07/23/2022 Last Documented On 3 2:32PM ; [facility] History of systemic hypertension 023 Last Documented On 3 2:32PM ; [facility] No previous hospitalizations 07/23/2022 Last Documented On 3 2:32PM ; [facility] Recent immunization for flu 07/23/2022 Last Documented On 3 2:32PM ; [facility] Work Phone: 1(349) [phone] History general Narrative - Reported Includes: Medical History in patient's chart Description Last Updated No previous suicide attempt 07/24/2022 Last Documented On 3 12:17AM ; [facility] A recent examination by an ophthalmologi st 07/21/2022 07/23/2022 Last Documented On 3 2:32PM ; [facility] History of diabetes mellitus 07/23/2022 Last Documented On 3 2:32PM ; [facility] History of systemic hypertension 023 Last Documented On 3 2:32PM ; [facility] No previous hospitalizations 07/23/2022 Last Documented On 3 2:32PM ; [facility] Recent immunization for flu 07/23/2022 Last Documented On 3 2:32PM ; [facility] Work Phone: 1([phone]) [phone] History general Narrative - Reported Includes: Medical History in patient's chart Description Last Updated No previous suicide attempt 07/24/2022 Last Documented On 3 12:17AM ; [facility] A recent examination by an ophthalmologi st 07/21/2022 07/23/2022 Last Documented On 3 2:32PM ; [facility] History of diabetes mellitus 07/23/2022 Last Documented On 3 2:32PM ; [facility] History of systemic hypertension 023 Last Documented On 3 2:32PM ; [facility] No previous hospitalizations 07/23/2022 Last Documented On 3 2:32PM ; [facility] Recent immunization for flu 07/23/2022 Last Documented On 3 2:32PM ; [facility] Work Phone: 1(317) 797-943303-07-2023 History general Narrative - Reported Includes: Medical History in patient's chart Description Last Updated No previous suicide attempt 07/24/2022 Last Documented On 3 12:17AM ; [facility] A recent examination by an ophthalmologi st 07/21/2022 07/23/2022 Last Documented On 3 2:32PM ; [facility] History of diabetes mellitus 07/23/2022 Last Documented On 3 2:32PM ; [facility] History of systemic hypertension 023 Last Documented On 3 2:32PM ; [facility] No previous hospitalizations 07/23/2022 Last Documented On 3 2:32PM ; [facility] Recent immunization for flu 07/23/2022 Last Documented On 3 2:32PM ; [facility] Work Phone: [phone]) [phone] Evaluation note Includes: Assessments for all patient encounters Findings Encounter Date Generalized anxiety disorder BH Established Shirley ent with Cinthia Stone CHILD ADVOCATE 07/23/2022 Last Documented On 3 1:10PM ; [facility] Intervention and counseling on cessation of tobacco use, 3-10 minutes Discussed medication and nicotine replacement for tobacco cessation BH Established Patient with Cinthia Stone CHILD ADVOCATE 07/23/2022 Last Documented On 3 1:10PM ; [facility] Moderate recurrent major depression BH E stablished Patient with Cinthia Stone CHILD ADVOCATE 07/23/2022 Last Documented On 3 1:10PM ; [facility] Nicotine dependence BH Established Patient with Cinthia Stone CHILD ADVOCATE 07/23/2022 Last Documented On 3 1:10PM ; [facility] Primary insomnia BH Established Patient with Deysi Farfan CHILD ADVOCATE 07/23/2022 Last Documented On 3 1:10PM ; [facility] [Z68.36 - Body mass index [B FL] 36.0-36.9, adult] assessment of body mass index Medical New Patient with Latia Sparks AUTOMOTIVE BRAKE TECHNICIAN 07/23/2022 Last Documented On 3 2:32PM ; [facility] Diabetes Risk Test Score was nine score 07/23/2022 Medical New Patient with Latia Sparks AUTOMOTIVE BRAKE TECHNICIAN 07/23/2022 Last Documented On 3 2:32PM ; [facility] Intervention and counseling on cessation of tobacco use, 3-10 minutes Discussed medication and nicotine replacement for tobacco cessation Medical New Patient with Latia Sparks AUTOMOTIVE BRAKE TECHNICIAN 07/23/2022 Last Documented On 3 2:32PM ; [facility] Screening for Hep C Medical New Patient with Nad yelitza Bridger AUTOMOTIVE BRAKE TECHNICIAN 07/23/2022 Last Documented On 3 2:32PM ; [facility] Screening for HIV Medical New Patient with Hiren Sparks AUTOMOTIVE BRAKE TECHNICIAN 07/23/2022 Last Documented On 3 2:32PM ; [facility] Venipuncture was performed Medical New Patient w dmitry Sparks AUTOMOTIVE BRAKE TECHNICIAN 07/23/2022 Last Documented On 3 2:32PM ; [facility] Visit for routine adult H&P without abnormal findings Medical New Patient with Latia Sparks AUTOMOTIVE BRAKE TECHNICIAN 07/23/2022 Last Documented On 3 2:32PM ; [facility] Work Phone: [phone]) 153-110003-06-2023 Evaluation note Includes: Assessments for all patient encounters Findings Encounter Date Generalized anxiety disorder BH Established Shirley ent with Cinthia Farfan CHILD ADVOCATE 07/23/2022 Last Documented On 3 12:17AM ; [facility] Intervention and counseling on cessation of tobacco use, 3-10 minutes Discussed medication and nicotine replacement for tobacco cessation BH Established Patient with Cinthia Stone CHILD ADVOCATE 07/23/2022 Last Documented On 3 12:17AM ; [facility] Moderate recurrent major depression E stablished Patient with Cinthia Farfan CHILD ADVOCATE 07/23/2022 Last Documented On 3 12:17AM ; [facility] Nicotine dependence Established Patient with Cinthia Stone CHILD ADVOCATE 07/23/2022 Last Documented On 3 12:17AM ; [facility] Primary insomnia Established Patient with Deysi pugh Stone CHILD ADVOCATE 07/23/2022 Last Documented On 3 12:17AM ; [facility] [Z68.36 - Body mass index [B FL] 36.0-36.9, adult] assessment of body mass index Medical New Patient with Latia Sparks AUTOMOTIVE BRAKE TECHNICIAN 07/23/2022 Last Documented On 3 2:32PM ; [facility] Diabetes Risk Test Score was nine score 07/23/2022 Medical New Patient with Latia Sparks AUTOMOTIVE BRAKE TECHNICIAN 07/23/2022 Last Documented On 3 2:32PM ; [facility] Intervention and counseling on cessation of tobacco use, 3-10 minutes Discussed medication and nicotine replacement for tobacco cessation Medical New Patient with Latia Sparks AUTOMOTIVE BRAKE TECHNICIAN 07/23/2022 Last Documented On 3 2:32PM ; [facility] Screening for Hep C Medical New Patient with Nad yelitza Hoffmanim AUTOMOTIVE BRAKE TECHNICIAN 07/23/2022 Last Documented On 3 2:32PM ; [facility] Screening for HIV Medical New Patient with Hiren kathryn Hoffmanim AUTOMOTIVE BRAKE TECHNICIAN 07/23/2022 Last Documented On 3 2:32PM ; [facility] Venipuncture was performed Medical New Patient w dmitry Sparks AUTOMOTIVE BRAKE TECHNICIAN 07/23/2022 Last Documented On 3 2:32PM ; [facility] Visit for routine adult H&P without abnormal findings Medical New Patient with Latia Hoffmanim AUTOMOTIVE BRAKE TECHNICIAN 07/23/2022 Last Documented On 3 2:32PM ; [facility] Work Phone: [phone]) 250-403103-06-2023 Progress note* Progress note Date Encounter Last Documented by 07/23/2022 Medical New Patient Last sydni elkins on 07/23/2022; 2:32 PM, Latia Sparks [facility]; [facility] Active Problems & Conditions - E11.610 - [...] female presented to established care. Resides at [facility]. Medical history is significant for diabetes [...] previous hospitalizations. A recent examination by an route service representative 07/21/2022. Immunization History: Recent immunization for flu. [...] BP-Sitting R168/92 mmHg BP Cuff SizeLarge Pulse Rate-Awyckfv573 bpm Pulse RhythmRegular Respiration Rate21 per min Temp-Oral98.3 F Mblxhn64 in Fvzpnt521 lbs Body Mass Index36 kg/m2 Body Surface Area2 m2 Oxygen Pexbswebqd66 % O2 DeviceNone (Room Air) DlF036 % - Vitals taken 07/23/2022 01:38 pm [...] 60 years or older (3 points) [Pre-DM]. [facility]03-06-2023 Progress note* Progress note Date Encounter Last Documented by 07/23/2022 Established Patient Last docu mented on 07/24/2022; 12:17 AM, Cinthia PARRISH; [facility] Active Problems & Conditions - E11.610 [...] compliant and implementing healthy coping skills Subjective [facility] reviewed PHQ-9 score of 9 and negative [...] to stop smoking offered Quit Line information [facility] P [...] Implement healthy lifestyle coping skills like discussed. [facility] to follow-up with patient at next visit [...] needed clothing: No, unable to get needed childcare teacher: No, unable to get needed phone: No, [...] + 0 pt : Not at all. [facility]03-06-2023 Progress note* Progress note Date Encounter Last Documented by 07/23/2022 Established Patient Last docu mented on 07/24/2022; 12:17 AM, Cinthia FRIED; [facility] Active Problems & Conditions - E11.610 [...] Quit Line information P introduced patient to [facility] integrated model of care. [facility] offered [...] needed clothing: No, unable to get needed childcare teacher: No, unable to get needed phone: No, [...] + 0 pt : Not at all. [facility]03-06-2023 Reason for referral (narrative)* Date Encounter Description Provider Reason for Referral 07/23/22 Established Patient Cinthia PARRISH Referral To Mental Health Team [facility] Work Phone: 1([phone]) 983-597703-06-2023 Reason for referral (narrative)* Date Encounter Description Provider Reason for Referral 07/23/22 Established Patient Cinthia PARRISH- S Referral To Mental Health Team [facility] Work Phone: 1([phone]) 148-536403-06-2023 Instructions Includes: Instructions for all patient encounters Instructions to patient Intervention and counseling on cessation of tobacco use, 3-10 minutes Discussed medication and nicotine replacement for tobacco cessation Last Documented On 3 1:02PM ; [facility] Intervention and counseling on cessation of tobacco use, 3-10 minutes Discussed medication and nicotine replacement for tobacco cessation Last Documented On 3 1:13PM ; [facility] Education and Decision Aids were provided during visit for: Discussed nutritional needs 36 teach healthy choices including fruits and vegetables Last Documented On 3 12:20PM ; [facility] Patient education about a pr oper diet 36 Last Documented On 3 12:20PM ; [facility] Discussed concerns about exe rcise : promote physical activity Last Documented On 3 12:20PM ; [facility] Referred Patient to a Diabet es Self-Management Program Last Documented On 3 1:46PM ; [facility] Work Phone: 1([phone]) 926-641003-06-2023 Instructions Includes: Instructions for all patient encounters Instructions to patient Intervention and counseling on cessation of tobacco use, 3-10 minutes Discussed medication and nicotine replacement for tobacco cessation Last Documented On 3 1:02PM ; [facility] Intervention and counseling on cessation of tobacco use, 3-10 minutes Discussed medication and nicotine replacement for tobacco cessation Last Documented On 3 1:13PM ; [facility] Education and Decision Aids were provided during visit for: P introduced patient to [facility] integrated model of care. ~P offered active and supportive listening, normalized emotions and feelings, and processed current stressors. ~Discussed healthy coping skills and positive supports in patient's life. ~Discussed healthy lifestyle behaviors. ~ Last Documented On 3 12:10AM ; [facility] Discussed nutritional needs 36 teach healthy choices including fruits and vegetables Last Documented On 3 12:20PM ; [facility] Patient education about a pr oper diet 36 Last Documented On 3 12:20PM ; [facility] Discussed concerns about exe rcise : promote physical activity Last Documented On 3 12:20PM ; [facility] Referred Patient to a Diabet es Self-Management Program Last Documented On 3 1:46PM ; [facility] Work Phone: 1([phone]) 347-199203-04-2023 History general Narrative - Reported Includes: Medical History in patient's chart Description Last Updated A recent examination by an ophthalmologi st 07/21/2022 07/23/2022 Last Documented On 3 2:32PM ; [facility] History of diabetes mellitus 07/23/2022 Last Documented On 3 2:32PM ; [facility] History of systemic hypertension 023 Last Documented On 3 2:32PM ; [facility] No previous hospitalizations 07/23/2022 Last Documented On 3 2:32PM ; [facility] Recent immunization for flu 07/23/2022 Last Documented On 3 2:32PM ; [facility] Work Phone: [phone]) 479-351102-28-2023 NoteCONSULTATION CONSULTATION DATE: 07/17/2022 TO: Dr. Prado [...] as tolerated. To reduce the use of [place] from 5 mg pills q.i.d. to 5 mg pill one b.i.d. as tolerated. Again, I have requested physical therapy for the patient as well. I have gone over the details with the patient. All her questions answered. She agreed to proceed with the outlined plan.[id number] Evaluation note* Encounter Date Diagnosis Assessment Notes [...] understanding and is agreeable to treatment plan [employer] Other Evaluation noteNo assessment information available [facility] Work Phone: Evaluation note Includes: Assessments for all patient encounters Findings Encounter Date [Z68.36 - Body mass index [B FL] 36.0-36.9, adult] assessment of body mass index Medical Established Patient with Latia Hoffmanim AUTOMOTIVE BRAKE TECHNICIAN 08/02/2022 Last Documented On 3 1:35PM ; [facility] Intervention and counseling on cessation of tobacco use, 3-10 minutes Discussed medication and nicotine replacement for tobacco cessation Medical Established Patient with Latia Sparks AUTOMOTIVE BRAKE TECHNICIAN 08/02/2022 Last Documented On 3 1:35PM ; [facility] Visit for: person consulting for explanation of examination or test findings Medical Established Patient with Latia Sparks AUTOMOTIVE BRAKE TECHNICIAN 08/02/2022 Last Documented On 3 1:35PM ; [facility] Generalized anxiety disorder Established Shirley ent with Cinthia Farfan CHILD ADVOCATE 07/23/2022 Last Documented On 3 12:17AM ; [facility] Intervention and counseling on cessation of tobacco use, 3-10 minutes Discussed medication and nicotine replacement for tobacco cessation Established Patient with Cinthia Stone CHILD ADVOCATE 07/23/2022 Last Documented On 3 12:17AM ; [facility] Moderate recurrent major depression E stablished Patient with Cinthia Stone CHILD ADVOCATE 07/23/2022 Last Documented On 3 12:17AM ; [facility] Nicotine dependence Established Patient with Cinthia Stone CHILD ADVOCATE 07/23/2022 Last Documented On 3 12:17AM ; [facility] Primary insomnia Established Patient with Deysi pugh Stone CHILD ADVOCATE 07/23/2022 Last Documented On 3 12:17AM ; [facility] [Z68.36 - Body mass index [B FL] 36.0-36.9, adult] assessment of body mass index Medical New Patient with Latia Sparks AUTOMOTIVE BRAKE TECHNICIAN 07/23/2022 Last Documented On 3 2:32PM ; [facility] Diabetes Risk Test Score was nine score 07/23/2022 Medical New Patient with Latia Sparks AUTOMOTIVE BRAKE TECHNICIAN 07/23/2022 Last Documented On 3 2:32PM ; [facility] Intervention and counseling on cessation of tobacco use, 3-10 minutes Discussed medication and nicotine replacement for tobacco cessation Medical New Patient with Latia Sparks AUTOMOTIVE BRAKE TECHNICIAN 07/23/2022 Last Documented On 3 2:32PM ; [facility] Screening for Hep C Medical New Patient with Nad yelitza Sparks AUTOMOTIVE BRAKE TECHNICIAN 07/23/2022 Last Documented On 3 2:32PM ; [facility] Screening for HIV Medical New Patient with Hiren Sparks AUTOMOTIVE BRAKE TECHNICIAN 07/23/2022 Last Documented On 3 2:32PM ; [facility] Venipuncture was performed Medical New Patient w dmitry Sparks AUTOMOTIVE BRAKE TECHNICIAN 07/23/2022 Last Documented On 3 2:32PM ; [facility] Visit for routine adult H&P without abnormal findings Medical New Patient with Latia Sparks AUTOMOTIVE BRAKE TECHNICIAN 07/23/2022 Last Documented On 3 2:32PM ; [facility] Work Phone: Evaluation note Includes: Assessments for all patient encounters Findings Encounter Date [Z68.36 - Body mass index [B FL] 36.0-36.9, adult] assessment of body mass index Medical Established Patient with Latia Sparks AUTOMOTIVE BRAKE TECHNICIAN 08/02/2022 Last Documented On 3 1:36PM ; [facility] Intervention and counseling on cessation of tobacco use, 3-10 minutes Discussed medication and nicotine replacement for tobacco cessation Medical Established Patient with Latia Sparks AUTOMOTIVE BRAKE TECHNICIAN 08/02/2022 Last Documented On 3 1:36PM ; [facility] Visit for: person consulting for explanation of examination or test findings Medical Established Patient with Latia Sparks AUTOMOTIVE BRAKE TECHNICIAN 08/02/2022 Last Documented On 3 1:36PM ; [facility] Generalized anxiety disorder BH Established Shirley ent with Cinthia Stone CHILD ADVOCATE 07/23/2022 Last Documented On 3 12:17AM ; [facility] Intervention and counseling on cessation of tobacco use, 3-10 minutes Discussed medication and nicotine replacement for tobacco cessation BH Established Patient with Cinthia Stone CHILD ADVOCATE 07/23/2022 Last Documented On 3 12:17AM ; [facility] Moderate recurrent major depression BH E stablished Patient with Cinthia Stone CHILD ADVOCATE 07/23/2022 Last Documented On 3 12:17AM ; [facility] Nicotine dependence BH Established Patient with Cinthia Stone CHILD ADVOCATE 07/23/2022 Last Documented On 3 12:17AM ; [facility] Primary insomnia BH Established Patient with Deysi Farfan CHILD ADVOCATE 07/23/2022 Last Documented On 3 12:17AM ; [facility] [Z68.36 - Body mass index [B FL] 36.0-36.9, adult] assessment of body mass index Medical New Patient with Latia Sparks AUTOMOTIVE BRAKE TECHNICIAN 07/23/2022 Last Documented On 3 2:32PM ; [facility] Diabetes Risk Test Score was nine score 07/23/2022 Medical New Patient with Latia Bridger AUTOMOTIVE BRAKE TECHNICIAN 07/23/2022 Last Documented On 3 2:32PM ; [facility] Intervention and counseling on cessation of tobacco use, 3-10 minutes Discussed medication and nicotine replacement for tobacco cessation Medical New Patient with Latia Bridger AUTOMOTIVE BRAKE TECHNICIAN 07/23/2022 Last Documented On 3 2:32PM ; [facility] Screening for Hep C Medical New Patient with Nad yelitza Bridger AUTOMOTIVE BRAKE TECHNICIAN 07/23/2022 Last Documented On 3 2:32PM ; [facility] Screening for HIV Medical New Patient with Hiren a Sparks AUTOMOTIVE BRAKE TECHNICIAN 07/23/2022 Last Documented On 3 2:32PM ; [facility] Venipuncture was performed Medical New Patient w dmitry Sparks AUTOMOTIVE BRAKE TECHNICIAN 07/23/2022 Last Documented On 3 2:32PM ; [facility] Visit for routine adult H&P without abnormal findings Medical New Patient with Latiakathryn Sparks AUTOMOTIVE BRAKE TECHNICIAN 07/23/2022 Last Documented On 3 2:32PM ; [facility] Work Phone: History general Narrative - Reported* Type Description Date Medical History diabetes Medical History htn Medical History depression Medical History neuropathy Medical History Chroma Other History general Narrative - Reported Includes: Medical History in patient's chart Description Last Updated No previous suicide attempt 07/24/2022 Last Documented On 3 12:17AM ; [facility] A recent examination by an ophthalmologi st 07/21/2022 07/23/2022 Last Documented On 3 2:32PM ; [facility] History of diabetes mellitus 07/23/2022 Last Documented On 3 2:32PM ; [facility] History of systemic hypertension 023 Last Documented On 3 2:32PM ; [facility] No previous hospitalizations 07/23/2022 Last Documented On 3 2:32PM ; [facility] Recent immunization for flu 07/23/2022 Last Documented On 3 2:32PM ; [facility] Work Phone: History of Present illness Narrative History of Present Illness not supported for this document type No [facility] of [facility] Work Phone: Instructions* Name Dates Details Instructions not documented [facility] Work Phone: Patient problem outcome Narrative Includes: Evaluations & Outcomes for active Goals No [facility] Work Phone: Progress note* Progress note Date Encounter Last Documented by 08/02/2022 Medical Established Patient Last documented on 08/02/2022; 1:35 PM, Latia MAYORGA; [facility] Active Problems & Conditions - E11.610 [...] results, Pt needs tresiba prescribed to the [facility] just for today. Referred Here No [...] has been provided. The patient [place], where food is cooking. Denies any craving [...] previous hospitalizations. A recent examination by an route service representative 07/21/2022. Immunization History: Recent immunization for flu. [...] BP-Sitting R138/82 mmHg BP Cuff SizeLarge Pulse Rate-Jlnqjkl91 bpm Pulse RhythmRegular Respiration Rate18 per min Temp-Kopvftyl76.5 F Blqhwv20 in Agqxlw347 lbs Body Mass Index36.7 kg/m2 Body Surface Area2 m2 Oxygen Gynehbsjup88 % O2 DeviceNone (Room Air) XzS193 % General Appearance: - Awake. - Alert. [...] and diastolic 80-89 mmHg diastolic 80-89 mmHg. [facility] Narrative - Reported Review of Systems not supported for this document type No [facility] Work Phone: Summary Purpose Family History Grandmother Name Dates Details Family history of cerebrovas cular accident (CVA)(V17.1, Z82.3) Status:Active Father Name Dates Details Family history of lung cance r(V16.1, Z80.1) Status:Active Description Last Updated Maternal history of type 1 diabetes pilar itus 07/23/2022 Last Documented On 3 2:32PM ; [facility] Description Last Updated Maternal history of type 1 diabetes pilar itus 07/23/2022 Last Documented On 3 2:32PM ; [facility] Description Last Updated Maternal history of type 1 diabetes pilar itus 07/23/2022 Last Documented On 3 2:32PM ; [facility] Description Last Updated Maternal history of type 1 diabetes pilar itus 07/23/2022 Last Documented On 3 2:32PM ; [facility] Description Last Updated Maternal history of type 1 diabetes pilar itus 07/23/2022 Last Documented On 3 2:32PM ; [facility] Description Last Updated Maternal history of type 1 diabetes pilar itus 07/23/2022 Last Documented On 3 2:32PM ; [facility] Description Last Updated Maternal history of type 1 diabetes pilar itus 07/23/2022 Last Documented On 3 2:32PM ; [facility] Description Last Updated Maternal history of type 1 diabetes pilar itus 07/23/2022 Last Documented On 3 2:32PM ; [facility] Description Last Updated Maternal history of type 1 diabetes pilar itus 07/23/2022 Last Documented On 3 2:32PM ; [facility] Advance Directives No Advanced Directives Records [...] section and content) DATE CREATED AUTHOR 03/14/2018 [facility] DATE CREATED AUTHOR AUTHOR'S ORGANIZ ATION 05/28/2018 [facility] ([place]) DATE CREATED AUTHOR AUTHOR'S ORGANIZ ATION 02/05/2019 [facility] DATE CREATED AUTHOR AUTHOR'S ORGANIZ ATION 02/28/2019 [facility] DATE CREATED AUTHOR AUTHOR'S ORGANIZ ATION 03/25/2019 [facility] Include [facility] DATE CREATED AUTHOR AUTHOR'S ORGANIZ ATION 01/16/2022 [facility] DATE CREATED AUTHOR AUTHOR'S ORGANIZ ATION 07/13/2022 [facility] DATE CREATED AUTHOR AUTHOR'S ORGANIZ ATION 09/30/2022 [facility] DATE CREATED AUTHOR AUTHOR'S ORGANIZ ATION 11/11/2022 [facility] Teams (unrecognized sec tion and content) [...] or prosecute any alcohol or drug abuse patient.[facility] FOR RECORDS PERTAINING TO PATIENTS WHO ARE [...] BE BASED ON THE PRIMARY CLINICAL RECORDS. [facility] [employer] [facility]. provides no warranty or guarantee of the accuracy or completeness of information in this document.
== END 2023-04-10 12:16 | disposition home or self-care (01) | DRG 193 ==
LOC: ER 20:50 → ICU 22:53 → MS 04-07 20:59 → ICU 04-08 10:27 → MS 04-08 10:27
PROVIDERS: Internal Medicine; Nurse Practitioner; Physician Assistant; Admitting Provider Family Medicine; Emergency Provider Emergency Medicine; PCP Family Medicine; Visit Provider Family Medicine
DX: J18.9 Pneumonia, unspecified organism (principal); J96.01 Acute respiratory failure with hypoxia; F32.A Depression, unspecified; Z66 Do not resuscitate; E78.00 Pure hypercholesterolemia, unspecified; I10 Essential (primary) hypertension; Z90.49 Acquired absence of other specified parts of digestive tract; F17.210 Nicotine dependence, cigarettes, uncomplicated; G89.4 Chronic pain syndrome; E86.0 Dehydration; E11.42 Type 2 diabetes mellitus with diabetic polyneuropathy; E83.52 Hypercalcemia; E83.42 Hypomagnesemia; D89.0 Polyclonal hypergammaglobulinemia; M19.90 Unspecified osteoarthritis, unspecified site; F41.1 Generalized anxiety disorder; M54.50 Low back pain, unspecified; K21.9 Gastro-esophageal reflux disease without esophagitis; E66.01 Morbid (severe) obesity due to excess calories; M47.814 Spondylosis without myelopathy or radiculopathy, thoracic region; Z79.891 Long term (current) use of opiate analgesic; Z79.82 Long term (current) use of aspirin; Z68.36 Body mass index [BMI] 36.0-36.9, adult; Z79.4 Long term (current) use of insulin; Z79.84 Long term (current) use of oral hypoglycemic drugs; Z88.0 Allergy status to penicillin; Z88.8 Allergy status to other drugs, medicaments and biological substances; Z91.018 Allergy to other foods
CPT/HCPCS: 0202U; 36415; 71045; 71046; 71275; 80048; 80053; 82800; 82948; 83605; 83735; 83880; 84145; 84484; 85025; 85378; 85610; 85730; 87040; 87070; 87205; 93005; 94640; 94761; 96365; 96366; 96367; 96368; 96375; 96376; 99285; G0378; G0463; J0456; J2920; J2930; Q3014; Q9967

== ENCOUNTER 2023-04-16 09:19 | Outpatient (REF) | payer MEDICARE, MEDICAID, SELFPAY ==
[2023-04-17 10:55] LABS: Bilirubin Urine NEGATIVE (NEGATIVE); Blood Urine NEGATIVE (NEGATIVE); Clarity Urine CLEAR (CLEAR); Color Urine LT. YELLOW (YELLOW); Glucose Urine UA NEGATIVE (NEGATIVE); Ketones Urine NEGATIVE (NEGATIVE); Leukocyte Esterase Urine NEGATIVE (NEGATIVE); Nitrite Urine NEGATIVE (NEGATIVE); Protein Urine 30 mg/dL (NEG/TRACE); Urobilinogen Urine 0.2 EU/dL (0.2-1.0)
[2023-04-17 11:04] LABS: Bacteria Urine TRACE #/HPF (NONE SEEN); Calcium Oxalate Crystals Urine FEW; Cast Seen? NONE SEEN #/LPF (NONE SEEN); Crystals Seen? Seen #/HPF (None Seen); Mucus Urine NONE SEEN (NONE SEEN); RBC Urine NONE SEEN #/HPF (0-2); Squamous Epithelial Cell Urine FEW #/LPF (NONE/RARE); WBC Urine NONE SEEN #/HPF (NONE SEEN)
[2023-04-17 11:38] LABS: Creatinine Urine Random 75.17 mg/dL (20.00-300.00)
== END 2023-04-16 09:20 | disposition home or self-care (01) ==
LOC: LAB 09:19
PROVIDERS: PCP Family Medicine
DX: D64.9 Anemia, unspecified (principal); E11.22 Type 2 diabetes mellitus with diabetic chronic kidney disease; R80.9 Proteinuria, unspecified
CPT/HCPCS: 36415; 81001; 82570

== ENCOUNTER 2023-04-17 01:06 | Outpatient (REF) | payer MEDICARE, MEDICAID, SELFPAY ==
[2023-04-17 08:09] LABS: Basophils Percent Auto 0.5 % (0.2-2.0); Eosinophils Absolute Auto 0.5 10^3/uL (0.0-0.7); Eosinophils Percent Auto 6.2 % (0.9-7.0); Hematocrit 37.3 % (36.0-48.0); Hemoglobin 11.9 g/dL (12.0-16.0); Immature Granulocytes Abs Auto 0.07 10^3/uL (0.00-0.03); Immature Granulocytes Pct Auto 0.8 % (0.0-0.5); Lymphocytes Absolute Auto 1.7 10^3/uL (1.2-3.8); Lymphocytes Percent Auto 19.4 % (20.5-60.0); Mean Corpuscular HGB Conc 31.9 g/dL (29.9-35.2); Mean Corpuscular Hemoglobin 28.6 pg (26.7-34.0); Mean Corpuscular Volume 89.7 fL (81.0-99.0); Mean Platelet Volume 10.1 fL (9.5-13.5); Monocytes Absolute Auto 0.6 10^3/uL (0.3-0.8); Monocytes Percent Auto 7.4 % (1.7-12.0); Neutrophils Absolute Auto 5.6 10^3/uL (1.4-6.5); Neutrophils Percent Auto 65.7 % (43.0-75.0); Platelet Count 215 10^3/uL (150-450); Red Blood Count 4.16 10^6/uL (4.20-5.40); Red Cell Distribution Width 12.8 % (11.0-15.0); White Blood Count 8.6 10^3/uL (4.0-11.0)
[2023-04-17 08:40] LABS: Anion Gap 9.9; BUN Creatinine Ratio 23.2; Calcium 9.7 mg/dL (8.5-10.1); Carbon Dioxide 32.3 mmol/L (21.0-32.0); Chloride 100 mmol/L (98-107); Estimated GFR (African America 58 (>=60); Estimated GFR (Non-African Ame 48 (>=60); Glucose 102 mg/dL (74-106); Magnesium 1.4 mg/dL (1.8-2.4); Phosphorus 3.4 mg/dL (2.6-4.7); Potassium 4.2 mmol/L (3.5-5.1); Sodium 138 mmol/L (136-145)
== END 2023-04-17 01:07 | disposition home or self-care (01) ==
LOC: LAB 01:06
PROVIDERS: PCP Family Medicine
DX: E11.22 Type 2 diabetes mellitus with diabetic chronic kidney disease (principal); D64.9 Anemia, unspecified; R80.9 Proteinuria, unspecified; I12.9 Hypertensive chronic kidney disease with stage 1 through stage 4 chronic kidney disease, or unspecified chronic kidney disease; N18.30 Chronic kidney disease, stage 3 unspecified; N18.31 Chronic kidney disease, stage 3a; E83.42 Hypomagnesemia; D63.1 Anemia in chronic kidney disease; R80.8 Other proteinuria; R76.8 Other specified abnormal immunological findings in serum
CPT/HCPCS: 36415; 80048; 82565; 83735; 84100; 85025

== ENCOUNTER 2023-04-30 07:50 | Outpatient (OUT) | payer MEDICARE, MEDICAID, SELFPAY ==
--- NOTE | 2023-04-30 07:53 | XR_ITS ---
The [address] [address] Patient Name: TUNDE AREVALO MRN: [id number] date: 1950 Sex: F Assigned Patient Location: [facility] Current Patient Location: [facility] Accession/Order Number: [id number] Exam Date: 04/30/2023 08:00 Report Date: 04/30/2023 09:02 At the request of: GENNY VIRAMONTES Procedure: XR thoracic spine 2V EXAMINATION: XR thoracic spine 2V HISTORY: Chronic Back Pain COMPARISON: No relevant comparison available. FINDINGS: BONES: Normal alignment of the thoracic vertebral bodies with no spondylolisthesis. Anterior wedging of the L2 vertebral body possibly chronic due to endplate sclerosis. Moderate diffuse degenerative spondylosis. Mild facet osteoarthropathy. Neurostimulator wires terminate at the mid T6 level DISC SPACES: Normal. No significant disc height narrowing, subluxation, or endplate abnormality. PARASPINOUS: Negative. No paraspinous abnormality is seen. OTHER: Negative. XR/XR thoracic spine 2V IMPRESSION: Moderate degenerative changes Electronically authenticated by: LEAH BEAL Date: 04/30/2023 09:02
== END 2023-04-30 07:51 | disposition home or self-care (01) ==
LOC: RAD 07:51
PROVIDERS: PCP Family Medicine; Visit Provider Nurse Practitioner
DX: M54.6 Pain in thoracic spine (principal)
CPT/HCPCS: 72070

== ENCOUNTER 2023-05-02 09:11 | Outpatient (OUT) | payer MEDICARE, MEDICAID, SELFPAY ==
--- NOTE | 2023-05-02 09:37 | P.CN_ITS ---
Consult Note: HPI Data of Consult Patient: known to practice within the last 3 years Requesting Physician: Jaylin Edwards NP Primary Care Provider: Geraldo Rocha MD Consult Narrative cc:: CC: Jaylin Edwards NP Review of Systems ROS Status of ROS 10 or more systems reviewed and unremark able except as noted in history and below [facility] Medical History (Updated 05/02/23 @ 09:56 by Jaylin Edwards NP) Basal pneumonia ?J18.9 - Pneumonia, unspecified organism (ICD-10) Pneumonia ?J18.9 - Pneumonia, unspecified organism (ICD-10) Hypoxia ?R09.02 - Hypoxemia (ICD-10) Shortness of breath ?R06.02 - Shortness of breath (ICD-10) DNR (do not resuscitate) ?Z66 - Do not resuscitate (ICD-10) Obesity (BMI 30.0-34.9) ?E66.9 - Obesity, unspecified (ICD-10) Chronic pain syndrome ?G89.4 - Chronic pain syndrome (ICD-10) Inguinal hernia ?K40.90 - Unilateral inguinal hernia, without obstruction or gangrene, not specified as recurrent (ICD-10) Upper back pain ?M54.9 - Dorsalgia, unspecified (ICD-10) Osteoarthritis ?M19.90 - Unspecified osteoarthritis, unspecified site (ICD-10) Obesity ?E66.9 - Obesity, unspecified (ICD-10) Anxiety ?F41.9 - Anxiety disorder, unspecified (ICD-10) Depression ?F32.A - Depression, unspecified (ICD-10) Hiatal hernia ?K44.9 - Diaphragmatic hernia without obstruction or gangrene (ICD-10) Heartburn ?R12 - Heartburn (ICD-10) Diabetes ?E11.9 - Type 2 diabetes mellitus without complications (ICD-10) Smoker ?F17.200 - Nicotine dependence, unspecified, uncomplicated (ICD-10) High cholesterol ?E78.00 - Pure hypercholesterolemia, unspecified (ICD-10) Hypertension ?I10 - Essential (primary) hypertension (ICD-10) Surgical History History of cholecystectomy ?Z90.49 - Acquired absence of other specified parts of digestive tract (ICD- 10) H/O: hysterectomy ?Z90.710 - Acquired absence of both cervix and uterus (ICD-10) H/O tubal ligation ?Z98.51 - Tubal ligation status (ICD-10) Social History Smoking status: Current every day smoker Meds Home Medications and Allergies Home Medications Medication Instructions Recorded Confirmed Type amitriptyline 25 mg tablet 25 mg PO BEDTIME 10/19/22 04/06/23 History amlodipine 10 mg tablet 10 mg PO QDAY 10/19/22 04/05/23 History aspirin 81 mg tablet,delayed 81 mg PO QDAY 10/19/22 04/05/23 History release (Adult Aspirin Regimen) fluoxetine 10 mg tablet 10 mg PO QDAY 10/19/22 04/05/23 History gabapentin 600 mg tablet 600 mg PO TID 10/19/22 04/05/23 History glucagon 3 mg/actuation nasal 3 mg intranasal .every 6 PRN 10/19/22 04/05/23 History spray (Baqsimi) hypoglycemia hydrochlorothiazide 25 mg tablet 25 mg PO QDAY 10/19/22 04/05/23 History hydrocodone 5 mg-acetaminophen 325 1 tab PO BID PRN pain 10/19/22 04/05/23 History mg tablet insulin degludec 100 unit/mL (3 40 unit subcut .at supp 10/19/22 04/05/23 History mL) subcutaneous pen (Tresiba FlexTouch U-100 insulin) insulin lispro 100 unit/mL 1 sliding scale dose subcut 10/19/22 04/05/23 History subcutaneous solution (Humalog USEASDIRECTD U-100 Insulin) losartan 100 mg tablet 100 mg PO QDAY 10/19/22 04/05/23 History metformin 500 mg tablet 500 mg PO BID 10/19/22 04/05/23 History pantoprazole 40 mg tablet,delayed 40 mg PO QDAY 10/19/22 04/05/23 History release pravastatin 20 mg tablet 20 mg PO BEDTIME 10/19/22 04/06/23 History sucralfate 1 gram tablet 1 g PO BEDTIME 10/19/22 04/06/23 History aripiprazole 15 mg tablet 15 mg PO BEDTIME 04/05/23 04/06/23 History fluticasone propionate 50 2 spray intranasal QAM 04/05/23 04/05/23 History mcg/actuation nasal spray,suspension hydralazine 25 mg tablet 25 mg PO Q12H 04/05/23 04/05/23 History magnesium oxide 400 mg (241.3 mg 400 mg PO TID 04/05/23 04/05/23 History magnesium) tablet vit D3 5000 125 mcg PO DAILY 04/05/23 04/05/23 History alprazolam 0.5 mg tablet (Xanax) 0.5 mg PO BID PRN anxiety 04/06/23 04/06/23 History baclofen 5 mg tablet 5 mg PO TID PRN muscle spasm 04/06/23 04/06/23 History camphor-menthol 0.2 %-3.5 % 1 applic topical BID PRN pain 04/06/23 04/06/23 History topical gel dulaglutide 4.5 mg/0.5 mL 4.5 mg subcut QWEEK 04/06/23 04/06/23 History subcutaneous pen injector ([facility]) fenofibrate 160 mg tablet 160 mg PO DAILY 04/06/23 04/06/23 History ondansetron HCl 4 mg tablet 4 mg PO Q6H PRN nausea and vomiting 04/06/23 04/06/23 History trazodone 50 mg tablet 50 mg PO BEDTIME 04/06/23 04/06/23 History benzonatate 200 mg capsule 200 mg PO TID PRN cough #20 caps 04/10/23 Rx benzonatate 200 mg capsule 200 mg PO TID PRN cough #30 caps 04/10/23 Rx levofloxacin 750 mg tablet 750 mg PO DAILY 7 days #7 tabs 04/10/23 Rx levofloxacin 750 mg tablet 750 mg PO DAILY 7 days #7 tabs 04/10/23 Rx hydrocodone 5 mg-acetaminophen 325 1 tab PO BID PRN pain #60 tabs 04/25/23 Rx mg tablet hydrocodone 7.5 mg-acetaminophen 1 tab PO BID PRN pain #60 tabs 05/02/23 Rx 325 mg tablet Allergies Allergy/AdvReac Type Severity Reaction Status Date / Time haloperidol [From Haldol] Allergy Unknown Verified 11/27/22 09:53 ebenezer Allergy Unknown Verified 11/27/22 09:53 Penicillins Allergy Unknown Verified 11/27/22 09:53 topiramate [From Topamax] Allergy Unknown Verified 11/27/22 09:53 Exam Constitutional Documenting provider has reviewed patient's vital signs: yes Common normals: no apparent distress, oriented x3, healthy appearing, alert and well nourished General appearance: cooperative HENMT Common normals: normocephalic, hearing grossly normal bilaterally and moist oral mucous membranes Head and scalp: normocephalic Eye Common normals: PERRL Pupil: PERRL Neck & C-Spine Common normals: full ROM General: normal visual inspection Chest Common normals: inspection of chest normal Respiratory Common normals: normal respiratory effort, no retractions and no use of accessory muscles Neuro Common normals: oriented x3, CN's II-XII intact bilaterally, moves all extremities, no focal motor deficits, no sensory deficits noted and deep tendon reflexes 2+ bilaterally Sensorium/orientation: alert Motor exam: strength 5/5 throughout and no movement abnormalities noted Psych Common normals: mental status grossly normal, thought process normal, cooperative, affect normal, speech normal and activity/motor behavior normal Speech: normal speech Thought process: normal thought process Results Additional Findings Additional findings: I have checked an OARRS report on this patient today and there are no aberrancies noted in the prescribing history.?? A drug screen was completed and reviewed within the last year, and if there has not been a drug screen completed we ordered one today to monitor higher risk, state monitored pain medication use. As part of providing excellent, safe, comprehensive care, the following was completed at our patient's visit: 1. A medication reconciliation and review to ensure accurate knowledge of current/active medications, including asking our patients to inform us about any [id number] medications or herbal remedies/nutritional supplements/alternative remedies. 2. A review to specifically ensure our patients have had annual screening for: elevated body mass index (BMI), tobacco use, screening for depression, and screening for unhealthy alcohol use. When screening is concerning, patients are provided with education and the specific recommendation to discuss the concerning health issue and treatment options with their primary care provider. Assessment and Plan Assessment and Plan (1) Lumbar stenosis with neurogenic claudication: (2) Lumbar radiculopathy: (3) Lumbar spondylosis: (4) Chronic prescription opiate use: (5) History of benzodiazepine use: (6) Thoracic spondylosis: (7) Chronic thoracic back pain: Plan patient in the worst pain of her life 02/26, daughter said we are not eff ectively managing her pain and I went over with her that Carlas symptoms are all new since her last visit and this is the first time we are addressing this pain. The daughter then went on to request extended release pain medication. patient and daughter would like to go to the ER for evaluation, I would like to order a lumbar CT without contrast in the event they do not get this imaging at the hospital increase [place] to 7.5mg BID as 5mg is not helping with the pain, discussed risks vs benefits. This is a short term increase with her increase in her pain. I am not increasing frequency as the 5mg were not helping or lasting. if the 7.5mg is more effective in managing her pain we will continue that BID and utilize tylenol for breakthrough pain. UDS/oral drug screen today as her OARRS showed a xanax fill and we spoke to the residential previously and they discontinued this medication continue gabapentin 600mg TID and amitrtiptyline 25mg daily we will evaluate need for MARLON based on CT findings, if patients pain persists after ER visit today
--- NOTE | 2023-05-02 12:35 | P.CN_ITS ---
Consult Note: HPI Data of Consult Patient: known to practice within the last 3 years Consult date: 05/02/23 Requesting Physician: Jaylin Edwards NP Primary Care Provider: Geraldo Rocha MD Consult Narrative Narrative: Johanna Jack a pleasant 72 year old female presents for evaluation and management of low back and bilateral leg pain/weakness. Patient reporting 10/10 pain in low back, bilateral groin, bilateral posterior thigh radiating down her bilateral legs. Pain is described as sharp, worse with all activity, improved with nothing. Patient states this pain started at the hospital and has continued to worsen. denies loss of bowel or bladder. medications have not been beneficial. cc:: CC: Jaylin Edwards NP Review of Systems ROS Status of ROS 10 or more systems reviewed and unremark able except as noted in history and below Musculoskeletal Reports: back pain, extremity pain and muscle weakness [facility] Medical History (Updated 05/02/23 @ 09:56 by Jayiln Edwards NP) Basal pneumonia ?J18.9 - Pneumonia, unspecified organism (ICD-10) Pneumonia ?J18.9 - Pneumonia, unspecified organism (ICD-10) Hypoxia ?R09.02 - Hypoxemia (ICD-10) Shortness of breath ?R06.02 - Shortness of breath (ICD-10) DNR (do not resuscitate) ?Z66 - Do not resuscitate (ICD-10) Obesity (BMI 30.0-34.9) ?E66.9 - Obesity, unspecified (ICD-10) Chronic pain syndrome ?G89.4 - Chronic pain syndrome (ICD-10) Inguinal hernia ?K40.90 - Unilateral inguinal hernia, without obstruction or gangrene, not specified as recurrent (ICD-10) Upper back pain ?M54.9 - Dorsalgia, unspecified (ICD-10) Osteoarthritis ?M19.90 - Unspecified osteoarthritis, unspecified site (ICD-10) Obesity ?E66.9 - Obesity, unspecified (ICD-10) Anxiety ?F41.9 - Anxiety disorder, unspecified (ICD-10) Depression ?F32.A - Depression, unspecified (ICD-10) Hiatal hernia ?K44.9 - Diaphragmatic hernia without obstruction or gangrene (ICD-10) Heartburn ?R12 - Heartburn (ICD-10) Diabetes ?E11.9 - Type 2 diabetes mellitus without complications (ICD-10) Smoker ?F17.200 - Nicotine dependence, unspecified, uncomplicated (ICD-10) High cholesterol ?E78.00 - Pure hypercholesterolemia, unspecified (ICD-10) Hypertension ?I10 - Essential (primary) hypertension (ICD-10) Surgical History History of cholecystectomy ?Z90.49 - Acquired absence of other specified parts of digestive tract (ICD- 10) H/O: hysterectomy ?Z90.710 - Acquired absence of both cervix and uterus (ICD-10) H/O tubal ligation ?Z98.51 - Tubal ligation status (ICD-10) Social History Smoking status: Current every day smoker Meds Home Medications and Allergies Home Medications Medication Instructions Recorded Confirmed Type amitriptyline 25 mg tablet 25 mg PO BEDTIME 10/19/22 04/06/23 History amlodipine 10 mg tablet 10 mg PO QDAY 10/19/22 04/05/23 History aspirin 81 mg tablet,delayed 81 mg PO QDAY 10/19/22 04/05/23 History release (Adult Aspirin Regimen) fluoxetine 10 mg tablet 10 mg PO QDAY 10/19/22 04/05/23 History gabapentin 600 mg tablet 600 mg PO TID 10/19/22 04/05/23 History glucagon 3 mg/actuation nasal 3 mg intranasal .every 6 PRN 10/19/22 04/05/23 History spray (Baqsimi) hypoglycemia hydrochlorothiazide 25 mg tablet 25 mg PO QDAY 10/19/22 04/05/23 History hydrocodone 5 mg-acetaminophen 325 1 tab PO BID PRN pain 10/19/22 04/05/23 History mg tablet insulin degludec 100 unit/mL (3 40 unit subcut .at supp 10/19/22 04/05/23 History mL) subcutaneous pen (Tresiba FlexTouch U-100 insulin) insulin lispro 100 unit/mL 1 sliding scale dose subcut 10/19/22 04/05/23 History subcutaneous solution (Humalog USEASDIRECTD U-100 Insulin) losartan 100 mg tablet 100 mg PO QDAY 10/19/22 04/05/23 History metformin 500 mg tablet 500 mg PO BID 10/19/22 04/05/23 History pantoprazole 40 mg tablet,delayed 40 mg PO QDAY 10/19/22 04/05/23 History release pravastatin 20 mg tablet 20 mg PO BEDTIME 10/19/22 04/06/23 History sucralfate 1 gram tablet 1 g PO BEDTIME 10/19/22 04/06/23 History aripiprazole 15 mg tablet 15 mg PO BEDTIME 04/05/23 04/06/23 History fluticasone propionate 50 2 spray intranasal QAM 04/05/23 04/05/23 History mcg/actuation nasal spray,suspension hydralazine 25 mg tablet 25 mg PO Q12H 04/05/23 04/05/23 History magnesium oxide 400 mg (241.3 mg 400 mg PO TID 04/05/23 04/05/23 History magnesium) tablet vit D3 5000 125 mcg PO DAILY 04/05/23 04/05/23 History alprazolam 0.5 mg tablet (Xanax) 0.5 mg PO BID PRN anxiety 04/06/23 04/06/23 History baclofen 5 mg tablet 5 mg PO TID PRN muscle spasm 04/06/23 04/06/23 History camphor-menthol 0.2 %-3.5 % 1 applic topical BID PRN pain 04/06/23 04/06/23 History topical gel dulaglutide 4.5 mg/0.5 mL 4.5 mg subcut QWEEK 04/06/23 04/06/23 History subcutaneous pen injector (Trulicity) fenofibrate 160 mg tablet 160 mg PO DAILY 04/06/23 04/06/23 History ondansetron HCl 4 mg tablet 4 mg PO Q6H PRN nausea and vomiting 04/06/23 04/06/23 History trazodone 50 mg tablet 50 mg PO BEDTIME 04/06/23 04/06/23 History benzonatate 200 mg capsule 200 mg PO TID PRN cough #20 caps 04/10/23 Rx benzonatate 200 mg capsule 200 mg PO TID PRN cough #30 caps 04/10/23 Rx levofloxacin 750 mg tablet 750 mg PO DAILY 7 days #7 tabs 04/10/23 Rx levofloxacin 750 mg tablet 750 mg PO DAILY 7 days #7 tabs 04/10/23 Rx hydrocodone 5 mg-acetaminophen 325 1 tab PO BID PRN pain #60 tabs 04/25/23 Rx mg tablet hydrocodone 7.5 mg-acetaminophen 1 tab PO BID PRN pain #60 tabs 05/02/23 Rx 325 mg tablet Allergies Allergy/AdvReac Type Severity Reaction Status Date / Time haloperidol [From Haldol] Allergy Unknown Verified 11/27/22 09:53 ebenezer Allergy Unknown Verified 11/27/22 09:53 Penicillins Allergy Unknown Verified 11/27/22 09:53 topiramate [From Topamax] Allergy Unknown Verified 11/27/22 09:53 Exam Constitutional Documenting provider has reviewed patient's vital signs: yes (HR elevated, 110) Common normals: oriented x3, healthy appearing, alert and well nourished General appearance: cooperative and in distress HENMT Common normals: normocephalic, hearing grossly normal bilaterally and moist oral mucous membranes Head and scalp: normocephalic Eye Common normals: PERRL Pupil: PERRL Neck & C-Spine Common normals: full ROM General: normal visual inspection Chest Common normals: inspection of chest normal Respiratory Common normals: normal respiratory effort, no retractions and no use of accessory muscles Back & Pelvis Thoracic spine/upper back: ROM limited and pain with ROM Lumbar spine/lower back: ROM limited, pain with ROM, straight leg raise positive right and straight leg raise positive left Extremity Common normals: normal to inspection Neuro Common normals: oriented x3, CN's II-XII intact bilaterally, moves all extremities, no focal motor deficits, no sensory deficits noted and deep tendon reflexes 2+ bilaterally Sensorium/orientation: alert Gait (neuro): antalgic Motor exam: no movement abnormalities noted and strength abnormal (4/5 BLE) Psych Common normals: mental status grossly normal, thought process normal, cooperative, affect normal, speech normal and activity/motor behavior normal Speech: normal speech Thought process: normal thought process Assessment and Plan Assessment and Plan (1) Lumbar radiculopathy: (2) Lumbar spondylosis: (3) Chronic prescription opiate use: Assessment and Plan: I feel these medications are improving the patient's quality of life and allow them to tolerate activities of daily living as well as participate in recreational activity.? The patient does not report intolerable side effects. The patient is NOT opioid naive and non-pharmacologic and non-opioid treatment has failed to significantly relieve the patient's pain and improve functionality. The patient has a diagnosis that is related to a somatic or visceral pain etiology. ? ?? I reviewed with the patient the potential risks and side effects with the use of? opioid medications including but not limited to respiratory depression,? sedation, and even . I verified the patient has access to naloxone should? these effects occur. I advised the patient to avoid the use of any other? sedation substances including alcohol, THC, and benzodiazepines while? taking opioid medications due to the risk of compounding side effects and? detrimental outcomes. I reviewed the [employer], pain treatment agreement, urine? drug screen, and opioid start talking forms. The patient was advised to let? their family know they had Naloxone in case they would need to administer? the medication.? ?? A drug screen was completed within the last year, and no aberrancies were noted regarding their use of controlled substances. The patient understands they are subject to the terms and conditions of the pain contract that they have signed. ? ?? I have checked an [place] report on this patient today and there are no aberrancies noted in the prescribing history.? (4) History of benzodiazepine use: (5) Thoracic spondylosis: (6) Chronic thoracic back pain: (7) Lumbar stenosis with neurogenic claudication: Plan patient in the worst pain of her life 02/26, daughter said we are not effectively managing her pain and I went over with her that Carlas symptoms are all new since her last visit and this is the first time we are addressing this pain. The daughter then went on to request extended release pain medication. patient and daughter would like to go to the ER for evaluation, I would like to order a lumbar CT without contrast in the event they do not get this imaging at the hospital increase [place] to 7.5mg BID as 5mg is not helping with the pain, discussed risks vs benefits. This is a short term increase with her increase in her pain. I am not increasing frequency as the 5mg were not helping or lasting. if the 7.5mg is more effective in managing her pain we will continue that BID and utilize tylenol for breakthrough pain. UDS/oral drug screen today as her [place]AR[place] showed a xanax fill and we spoke to the [facility] previously and they discontinued this medication continue gabapentin 600mg TID and amitrtiptyline 25mg daily we will evaluate need for MARLON based on CT findings, if patients pain persists after ER visit today
== END 2023-05-02 09:12 | disposition home or self-care (01) ==
PROVIDERS: PCP Family Medicine; Visit Provider Nurse Practitioner
DX: M47.26 Other spondylosis with radiculopathy, lumbar region (principal); Z79.891 Long term (current) use of opiate analgesic
CPT/HCPCS: G0463

== ENCOUNTER 2023-05-02 10:31 | Emergency (ER) | payer MEDICARE, MEDICAID, SELFPAY ==
[2023-05-02 10:34] VITALS: BP 174/81; PULSE 101; RESP 20; TEMP 36.7; O2SAT 99; BMI 35.4
--- NOTE | 2023-05-02 12:11 | ED.BACK1 ---
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 He just recently increased her [place] from 5-7.5 mg. She has not had a new trauma or injury. They scheduled her for a CT lumbar spine with contrast. I will contact them in that regard.patient does not have any bowel or bladder incontinence. She does not have any radiculopathy type symptoms. She's not been running a fever. There is no skin rash. There is no recent instrumentation or procedures have been done. Related Data Home Medications Medication Instructions Recorded Confirmed amitriptyline 25 mg tablet 25 mg PO BEDTIME 10/19/22 04/06/23 amlodipine 10 mg tablet 10 mg PO QDAY 10/19/22 04/05/23 aspirin 81 mg tablet,delayed 81 mg PO QDAY 10/19/22 04/05/23 release (Adult Aspirin Regimen) fluoxetine 10 mg tablet 10 mg PO QDAY 10/19/22 04/05/23 gabapentin 600 mg tablet 600 mg PO TID 10/19/22 04/05/23 glucagon 3 mg/actuation nasal 3 mg intranasal .every 6 PRN 10/19/22 04/05/23 spray (Baqsimi) hypoglycemia hydrochlorothiazide 25 mg tablet 25 mg PO QDAY 10/19/22 04/05/23 hydrocodone 5 mg-acetaminophen 325 1 tab PO BID PRN pain 10/19/22 04/05/23 mg tablet insulin degludec 100 unit/mL (3 40 unit subcut .at supp 10/19/22 04/05/23 mL) subcutaneous pen (Tresiba FlexTouch U-100 insulin) insulin lispro 100 unit/mL 1 sliding scale dose subcut 10/19/22 04/05/23 subcutaneous solution (Humalog USEASDIRECTD U-100 Insulin) losartan 100 mg tablet 100 mg PO QDAY 10/19/22 04/05/23 metformin 500 mg tablet 500 mg PO BID 10/19/22 04/05/23 pantoprazole 40 mg tablet,delayed 40 mg PO QDAY 10/19/22 04/05/23 release pravastatin 20 mg tablet 20 mg PO BEDTIME 10/19/22 04/06/23 sucralfate 1 gram tablet 1 g PO BEDTIME 10/19/22 04/06/23 aripiprazole 15 mg tablet 15 mg PO BEDTIME 04/05/23 04/06/23 fluticasone propionate 50 2 spray intranasal QAM 04/05/23 04/05/23 mcg/actuation nasal spray,suspension hydralazine 25 mg tablet 25 mg PO Q12H 04/05/23 04/05/23 magnesium oxide 400 mg (241.3 mg 400 mg PO TID 04/05/23 04/05/23 magnesium) tablet vit D3 5000 125 mcg PO DAILY 04/05/23 04/05/23 alprazolam 0.5 mg tablet (Xanax) 0.5 mg PO BID PRN anxiety 04/06/23 04/06/23 baclofen 5 mg tablet 5 mg PO TID PRN muscle spasm 04/06/23 04/06/23 camphor-menthol 0.2 %-3.5 % 1 applic topical BID PRN pain 04/06/23 04/06/23 topical gel dulaglutide 4.5 mg/0.5 mL 4.5 mg subcut QWEEK 04/06/23 04/06/23 subcutaneous pen injector (Trulicity) fenofibrate 160 mg tablet 160 mg PO DAILY 04/06/23 04/06/23 ondansetron HCl 4 mg tablet 4 mg PO Q6H PRN nausea and vomiting 04/06/23 04/06/23 trazodone 50 mg tablet 50 mg PO BEDTIME 04/06/23 04/06/23 Previous Rx's Medication Instructions Recorded benzonatate 200 mg capsule 200 mg PO TID PRN cough #20 caps 04/10/23 benzonatate 200 mg capsule 200 mg PO TID PRN cough #30 caps 04/10/23 levofloxacin 750 mg tablet 750 mg PO DAILY 7 days #7 tabs 04/10/23 levofloxacin 750 mg tablet 750 mg PO DAILY 7 days #7 tabs 04/10/23 hydrocodone 5 mg-acetaminophen 325 1 tab PO BID PRN pain #60 tabs 04/25/23 mg tablet hydrocodone 7.5 mg-acetaminophen 1 tab PO BID PRN pain #60 tabs 05/02/23 325 mg tablet Allergies Allergy/AdvReac Type Severity Reaction Status Date / Time haloperidol [From Haldol] Allergy Unknown Verified 11/27/22 09:53 ebenezer Allergy Unknown Verified 11/27/22 09:53 Penicillins Allergy Unknown Verified 11/27/22 09:53 topiramate [From Topamax] Allergy Unknown Verified 11/27/22 09:53 [facility] Medical History (Updated 05/02/23 @ 14:05 by Henry Jacobs MD) Basal pneumonia ?J18.9 - Pneumonia, unspecified organism (ICD-10) Pneumonia ?J18.9 - Pneumonia, unspecified organism (ICD-10) Hypoxia ?R09.02 - Hypoxemia (ICD-10) Shortness of breath ?R06.02 - Shortness of breath (ICD-10) DNR (do not resuscitate) ?Z66 - Do not resuscitate (ICD-10) Obesity (BMI 30.0-34.9) ?E66.9 - Obesity, unspecified (ICD-10) Chronic pain syndrome ?G89.4 - Chronic pain syndrome (ICD-10) Inguinal hernia ?K40.90 - Unilateral inguinal hernia, without obstruction or gangrene, not specified as recurrent (ICD-10) Upper back pain ?M54.9 - Dorsalgia, unspecified (ICD-10) Osteoarthritis ?M19.90 - Unspecified osteoarthritis, unspecified site (ICD-10) Obesity ?E66.9 - Obesity, unspecified (ICD-10) Anxiety ?F41.9 - Anxiety disorder, unspecified (ICD-10) Depression ?F32.A - Depression, unspecified (ICD-10) Hiatal hernia ?K44.9 - Diaphragmatic hernia without obstruction or gangrene (ICD-10) Heartburn ?R12 - Heartburn (ICD-10) Diabetes ?E11.9 - Type 2 diabetes mellitus without complications (ICD-10) Smoker ?F17.200 - Nicotine dependence, unspecified, uncomplicated (ICD-10) High cholesterol ?E78.00 - Pure hypercholesterolemia, unspecified (ICD-10) Hypertension ?I10 - Essential (primary) hypertension (ICD-10) Surgical History History of cholecystectomy ?Z90.49 - Acquired absence of other specified parts of digestive tract (ICD-10) H/O: hysterectomy ?Z90.710 - Acquired absence of both cervix and uterus (ICD-10) H/O tubal ligation ?Z98.51 - Tubal ligation status (ICD-10) Social History Smoking status: Current every day smoker Exam Narrative Exam Narrative: patient prefers to lie on her right side. She is awake alert pleasant fully cooperative. Vital signs are stable she is afebrile. She had no respiratory distress no cough or congestion. Problem focused examination shows the extensor hallucis longus function to be normal bilaterally. Deep tendon reflexes at Achilles and patella are equal bilaterally are diminished equally bilaterally. Examination of back shows no rashes no bruises contusions or injury. She does not have a loss of feeling in her legs. A CT will be done without contrast. Constitutional Vital Signs, click to edit/add: Last Vital Signs Temp 98.0 F 05/02/23 10:34 Pulse 101 H 05/02/23 10:34 Resp 20 05/02/23 10:34 BP 174/81 H 05/02/23 10:34 Pulse Ox 99 05/02/23 10:34 O2 Del Method Room Air 05/02/23 10:34 Course Vital Signs Vital signs: Vital Signs Temperature 98.0 F 05/02/23 10:34 Pulse Rate 101 H 05/02/23 10:34 Respiratory Rate 20 05/02/23 10:34 Blood Pressure 174/81 H 05/02/23 10:34 Pulse Oximetry 99 05/02/23 10:34 Oxygen Delivery Method Room Air 05/02/23 10:34 Temperature 98.0 F 05/02/23 10:34 Pulse Rate 101 H 05/02/23 10:34 Respiratory Rate 20 05/02/23 10:34 Blood Pressure 174/81 H 05/02/23 10:34 Pulse Oximetry 99 05/02/23 10:34 Oxygen Delivery Method Room Air 05/02/23 10:34 MDM - Back Pain/Injury MDM Narrative Medical decision making narrative: CT report by the radiologist read as showing a thirty percent deformity of the inferior endplate of L1 that is new. I discussed these findings with the patient. We'll attempt to have her follow up with a local orthopedist who manages these conditions on a regular basis. Discharge Plan Discharge Chief Complaint: Back Pain/Injury Clinical Impression: Closed compression fracture of L1 vertebra Patient Disposition: Home, Self-Care Time of Disposition Decision: 14:04 Prescriptions / Home Meds: No Action hydrocodone-acetaminophen 5-325 mg tablet 1 tab PO BID PRN (Reason: pain) Qty: 60 0RF hydrocodone-acetaminophen 7.5-325 mg tablet 1 tab PO BID PRN (Reason: pain) Qty: 60 0RF aripiprazole 15 mg tablet 15 mg PO BEDTIME hydralazine 25 mg tablet 25 mg PO Q12H magnesium oxide 400 mg (241.3 mg magnesium) tablet 400 mg PO TID fluticasone propionate 50 mcg/actuation spray,suspension 2 spray INTRANASAL QAM vit D3 5000 125 mcg tablet 125 mcg PO DAILY alprazolam [Xanax] 0.5 mg tablet 0.5 mg PO BID PRN (Reason: anxiety) Trulicity 4.5 mg/0.5 mL pen injector 4.5 mg subcut QWEEK Rx Instructions: [employer] fenofibrate 160 mg tablet 160 mg PO DAILY trazodone 50 mg tablet 50 mg PO BEDTIME baclofen 5 mg tablet 5 mg PO TID PRN (Reason: muscle spasm) ondansetron HCl 4 mg tablet 4 mg PO Q6H PRN (Reason: nausea and vomiting) camphor-menthol 0.2-3.5 % gel 1 applic topical BID PRN (Reason: pain) Rx Instructions: rub in gently and completely levofloxacin 750 mg tablet 750 mg PO DAILY 7 Days Qty: 7 0RF benzonatate 200 mg capsule 200 mg PO TID PRN (Reason: cough) Qty: 30 0RF benzonatate 200 mg capsule 200 mg PO TID PRN (Reason: cough) Qty: 20 0RF levofloxacin 750 mg tablet 750 mg PO DAILY 7 Days Qty: 7 0RF amitriptyline 25 mg tablet 25 mg PO BEDTIME aspirin [Adult Aspirin Regimen] 81 mg tablet,delayed release (DR/EC) 81 mg PO QDAY Baqsimi 3 mg/actuation spray,non-aerosol 3 mg intranasal .every 6 PRN (Reason: hypoglycemia) fluoxetine 10 mg tablet 10 mg PO QDAY gabapentin 600 mg tablet 600 mg PO TID insulin lispro [Humalog U-100 Insulin] 100 unit/mL solution 1 sliding scale dose subcut USEASDIRECTD Rx Instructions: takes 12 units at breakfast and lunch then 16 units at supper losartan 100 mg tablet 100 mg PO QDAY sucralfate 1 gram tablet 1 g PO BEDTIME insulin degludec [Tresiba FlexTouch U-100] 100 unit/mL (3 mL) insulin pen 40 unit subcut .at supp amlodipine 10 mg tablet 10 mg PO QDAY hydrochlorothiazide 25 mg tablet 25 mg PO QDAY hydrocodone-acetaminophen 5-325 mg tablet 1 tab PO BID PRN (Reason: pain) metformin 500 mg tablet 500 mg PO BID pantoprazole 40 mg tablet,delayed release (DR/EC) 40 mg PO QDAY pravastatin 20 mg tablet 20 mg PO BEDTIME Additional Instructions: contact Dr. Dailey's office for follow-up. Otherwise her pain management doctors may need to provide referral Stand Alone Forms: Portal Instructions Referrals: Geraldo Rocha MD [Primary Care Provider] - 1 week
--- NOTE | 2023-05-02 12:20 | CT_ITS ---
The [address] [address] Patient Name: TUNDE AREVALO MRN: [id number] date: 1950 Sex: F Assigned Patient Location: ER Current Patient Location: ER Accession/Order Number: [id number] Exam Date: 05/02/2023 12:30 Report Date: 05/02/2023 13:33 At the request of: KATHY ZEPEDA Procedure: CT lumbar spine wo con EXAM: CT lumbar spine wo con HISTORY: Chronic lumbar pain, worse in the last month COMPARISON: CT from 07/27/2022 TECHNIQUE: CT lumbar spine wo con FINDINGS: VERTEBRA: Four nonrib-bearing lumbar vertebrae with sacralization of L5. New deformity of the inferior endplate of L1 with approximately 30% vertebral body height loss and mild retropulsion. DISC SPACES AND FACET JOINTS: No acute injury. Mild multilevel discogenic vertebral endplate change and degenerative facet arthropathy. Multiple small disc bulges. PREVERTEBRAL SOFT TISSUES: Partially visualized spinal stimulator leads in the posterior paravertebral soft tissues that enter the spinal canal and course superiorly, above the [id number]. Mild degenerative arthrosis of both SI joints. 0.7 cm left adrenal myelolipoma (image 10 of series 4). Moderate atherosclerotic disease of the abdominal aorta and its major branches. ALIGNMENT: Normal. CT/CT lumbar spine wo con IMPRESSION: New compression deformity of the inferior endplate of L1 with approximately 30% vertebral body height loss and mild retropulsion. Electronically authenticated by: HARDY QUINTANILLA Date: 05/02/2023 13:33
[2023-05-02] MEDS: HYDROMORPHONE HCL 1 MG/ML CARTRIDGE IM (12:44)
== END 2023-05-02 14:37 | disposition home or self-care (01) ==
PROVIDERS: Emergency Provider Emergency Medicine Emergency Medical Services; PCP Family Medicine
DX: M48.56XA Collapsed vertebra, not elsewhere classified, lumbar region, initial encounter for fracture (principal); M47.26 Other spondylosis with radiculopathy, lumbar region; Z79.891 Long term (current) use of opiate analgesic; M54.50 Low back pain, unspecified; Z79.82 Long term (current) use of aspirin; Z79.4 Long term (current) use of insulin; Z79.84 Long term (current) use of oral hypoglycemic drugs; Z79.899 Other long term (current) drug therapy; Z87.01 Personal history of pneumonia (recurrent); Z66 Do not resuscitate; E66.9 Obesity, unspecified; G89.4 Chronic pain syndrome; M19.90 Unspecified osteoarthritis, unspecified site; F41.9 Anxiety disorder, unspecified; F32.A Depression, unspecified; E11.9 Type 2 diabetes mellitus without complications; E78.00 Pure hypercholesterolemia, unspecified; I10 Essential (primary) hypertension; Z90.49 Acquired absence of other specified parts of digestive tract; F17.210 Nicotine dependence, cigarettes, uncomplicated; Z68.35 Body mass index [BMI] 35.0-35.9, adult
CPT/HCPCS: 72131; 96372; 99284; G0463; J1170

== ENCOUNTER 2023-06-05 15:50 | Emergency (ER) | payer MEDICARE, MEDICAID, SELFPAY ==
[2023-06-05 15:59] VITALS: BP 174/82; PULSE 104; RESP 18; TEMP 36.4; O2SAT 96; BMI 35.4
--- OUTSIDE RECORDS SUMMARY | 2023-06-05 16:03 | XMS_ITS | CCD ---
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 [employer]illing And Recovery Name Role Phone Morgan Barcenas Unavailable Unavailable PROVIDER, UNKNOWN Unavailable Unavailable Ahmed, Ilia Unavailable Unavailable Morgan Barcenas Unavailable Unavailable PROVIDER, UNKNOWN Unavailable Unavailable Ahmed, Ilia Unavailable Unavailable STIVEN ANDINO Unavailable Unavailable Unknown, Referring Provider Unavailable Unav ailable Leah Brock Unavailable Unavailable Ahmed, Ilia Unavailable Unavailable MD Constantine Hernandez Attending Provider Isidra Hernandez Unavailable Sparks PULL OVER, Latia Attending Unavailable Sparks PULL OVER, Latia Primary Care Provider Unavailable Primary Care Provider Unavailabl e Sparks PULL OVER, Latia Primary Care Provider MISC, DR BECERRA Admitting Unavailable MISC, DR BECERRA Attending Unavailable NADCLAUDIO, GERALDO A Primary Care Unavailable MISC, DR BECERRA Consulting Unavailable MISC, DR BECERRA Admitting Unavailable MISC, DR BECERAR Attending Unavailable NADCLAUDIO, GERALDO A Primary Care Unavailable MISC, DR BECERRA Consulting Unavailable NADCLAUDIO, GERALDO A Primary Care Unavailable LAKSHMIPATHY [...] vailable LAKSHMIPATHY ., NARENDRANATH Attending Sobeida vailable NADGERALDO SNYDER A Primary Care Unavailable LAKSHMIPATHY ., NARENDRANATH Consulting Sobeida vailable LAKSHMIPATHY ., NARENDRANATH Admitting Sobeida vailable LAKSHMIPATHY ., NARENDRANATH Attending Sobeida vailable GERALDO PRADO A Primary Care Unavailable LAKSHMIPATHY ., NARENDRANATH Consulting Sobeida vailable NADGERALDO SNYDER A Primary Care Unavailable LAKSHMIPATHY ., NARENDRANATH Admitting Sobeida vailable LAKSHMIPATHY ., NARENDRANATH Attending Sobeida vailable LAKSHMIPATHY ., NARENDRANATH Consulting Sobeida vailable LAKSHMIPATHY ., NARENDRANATH Admitting Sobeida vailable LAKSHMIPATHY ., NARENDRANATH Attending Sobeida vailable NADJOHANAR, GERALDO A Primary Care Unavailable HALKER ., DEANA Consulting Unavailable MISC, DR BECERRA Admitting Unavailable MISC, DR BECERRA Attending Unavailable NADGERALDO SNYDER A Primary Care Unavailable MISC, DR BECERRA Consulting Unavailable SPARKS, LATIA Referring Unavailable SPARKS, LATIA Referring Unavailable Unavailable Primary Care Provider UnavailGeraldo Foster MD Primary Care Provider [phone] HARDY JAY Admitting Unavailable HRADY JAY Attending Unavailable GERALDO PRADO Primary Care Unavailable SUKUMAR BLAND Attending Unavailable SPARKS, LATIA JUAN ALBERTO Primary Care Unavailable HARDY JAY Attending Unavailable HARDY JAY Referring Unavailable SPARKS, LATIA JUAN ALBERTO Primary Care Unavailable GERALDO PRADO Referring Unavailable GERALDO PRADO Primary Care Unavailable HARDY JAY Attending Unavailable HARDY JAY Referring Unavailable SPARKS, LATIA JUAN ALBERTO Primary Care Unavailable HARDY JAY Referring Unavailable SPARKS, LATIA JUAN ALBERTO Primary Care Unavailable HARDY JAY Referring Unavailable GERALDO PRADO Primary Care Unavailable GERALDO PRADO Referring Unavailable EJ BARRAZA Attending Unavailable EJ BARRAZA Referring Unavailable HARDY JAY Attending Unavailable Allergies Allergy Classification Reported Allergen(s) Allergy Type Date of Onset Reaction(s) Facility Anti-Epileptic Agents (1 source) topiramate Drug [facility] Work Phone: Penicillins (antibiotic) (1 source) Penicillins; Translations: [Penicillins] Drug Allergy [facility] Work Phone: (2 sources) Haloperidol; Translations: [Haldol] Drug Allergy 0 Unknown [facility] (1 source) Penicillin V Drug Allergy Unknown [facility] Other (2 sources) Thioridazine; Translations: [THIORIDAZINE] Drug Allergy 3 Unknown [facility] (3 sources) topiramate; Translations: [TOPIRAMATE] Drug Allergy 8 Unknown [facility] Other (3 sources) [place] Flavor; Translations: [TAI FLAVOR] Drug allergy 8 Anaphylaxis, Swelling [facility] (6 sources) tai allergenic extract Drug Allergy 0 Hives / Urticaria, Shock [facility] (1 source) Penicillin Drug Allergy 0 [facility] (6 sources) topiramate Drug Allergy 0 [facility] (7 sources) Penicillins; Translations: [PENICILLINS] Allergy to substance 8 Hives / Urticaria, Hives, Itching [facility] (5 sources) Thioridazine Drug Allergy 3 [facility] (2 sources) Temazepam; Translations: [TEMAZEPAM] Drug Allergy 8 Other (See Comments) [facility] (1 source) Haloperidol; Translations: [HALOPERIDOL] Drug Allergy 3 [facility] Medications Current Medications Medication Drug Class(es) Dates Sig (Normalized) Sig (Original) 1st Tier Unifine Pentips Plus 33G X 4 MM Miscellaneous (7 sources) Start: 08-28-2022 1st Tier Unifine Pentips Plus 33G X 4 MM Miscellaneous 08/28/2022 Provider: Latia MAYORGA Aircast Sport Ankle Brace/Left - (1 source) Start: 09-21-2021 Aircast Sport Ankle Brace/Left - as directed 05 May, 2022 Active amitriptyline hydrochloride 25 mg oral tablet (20 sources) Tricyclic Antidepressant Start: 02-06-2023 Amitriptyline HCl 25 MG Oral Tablet 02/06/2023 Provider: Latia MAYORGA Start: 08-09-2022 End: 11-15-2022 Amitriptyline HCl 25 MG Oral Tablet 11/08/2022 - 11/15/2022 Provider: Latia MAYORGA Start: 07-06-2022 End: 08-02-2022 Amitriptyline HCl 25 MG Oral Tablet 07/06/2022 - 08/02/2022 Provider: Kobeiptyline HC l Active amLODIPine 10 mg oral tablet (20 sources) Dihydropyridine Calcium Channel Jone Start: 02-06-2023 amLODIPine Besylate 10 MG Oral Tablet 02/06/2023 Provider: Latia MAYORGA Start: 02-06-2023 End: 11-15-2022 amLODIPine Besylate 10 MG Or al Tablet 02/06/2023 - 11/15/2022 Provider: Latia GREENP Start: 02-06-2023 End: 11-15-2022 amLODIPine Besylate 10 MG Or al Tablet 02/06/2023 - 11/15/2022 Provider: Latia MAYORGA Start: 02-06-2023 End: 11-15-2022 amLODIPine Besylate 10 MG Or al Tablet 02/06/2023 - 11/15/2022 Provider: Latia MAYORGA Start: 02-06-2023 End: 11-15-2022 amLODIPine Besylate 10 MG Or al Tablet 02/06/2023 - 11/15/2022 Provider: Latia GREENP Start: 02-06-2023 End: 11-15-2022 amLODIPine Besylate 10 MG Or al Tablet 02/06/2023 - 11/15/2022 Provider: Latia MAYORGA Start: 08-22-2022 End: 11-15-2022 amLODIPine Besylate 10 MG Or al Tablet 08/22/2022 - 11/15/2022 Provider: Latia GREENP Start: 07-21-2022 End: 08-02-2022 amLODIPine Besylate 10 MG Or al Tablet 07/23/2022 - 08/02/2022 Provider: Latia MAYORGA amLODIPine Besyl ate Active Aspirin (1 source) Platelet Aggregation Inhibitor, Nonsteroidal Anti-inflammatory Drug Aspirin 81 Active aspirin 81 mg / calcium carbonate 777 mg oral tablet (1 source) Platelet Aggregation Inhibitor, Nonsteroidal Anti-inflammatory Drug aspirin-calcium carbonate 81 mg-300 mg calcium(777 mg) tablet Take 81 mg by mouth. 0 Active Butalbital-Acetaminoph en (1 source) Butalbital-Aceta tejinder phen Active diclofenac sodium 0.01 mg/mg topical gel (1 source) Nonsteroidal Anti-inflammatory Drug Start: 06-04-2023 Voltaren 1% External Gel 06/04/2023 Provider: Latia MAYORGA Start: 06-04-2023 Voltaren 1% Ex ternal Gel 06/04/2023 Provider: Latia MAYORGA fenofibrate 160 mg oral tablet (20 sources) Peroxisome Proliferator Receptor alpha Agonist Start: 02-06-2023 Fenofibrate 160 MG Oral Tablet 02/06/2023 Provider: Latia GREENP Start: 11-15-2022 End: 11-15-2022 Fenofibrate 160 MG Oral Tabl et 11/15/2022 - 11/15/2022 Provider: Latia MAYORGA Start: 09-09-2022 End: 11-15-2022 Fenofibrate 145 MG Oral Tabl et 11/08/2022 - 11/15/2022 Provider: Latia GREENP Start: 09-09-2022 End: 08-02-2022 Fenofibrate 145 MG [...] 10 MG Oral Capsule 08/28/2022 Provider: Latia GREENP Start: 08-22-2022 End: 08-02-2022 FLUoxetine HCl 10 MG Oral Ca psule 08/22/2022 - 08/02/2022 Provider: Latia GREENP Start: 08-22-2022 End: 08-02-2022 FLUoxetine HCl 10 MG Oral Ca psule 08/22/2022 - 08/02/2022 Provider: Latia MAYORGA Start: 08-22-2022 End: 08-02-2022 FLUoxetine HCl 10 MG Oral Ca psule 08/22/2022 - 08/02/2022 Provider: Latia GREENP Start: 08-22-2022 End: 08-02-2022 FLUoxetine HCl 10 MG Oral Ca psule 08/22/2022 - 08/02/2022 Provider: Latia GREENP Start: 08-22-2022 End: 08-02-2022 FLUoxetine HCl 10 MG Oral Ca psule 08/22/2022 - 08/02/2022 Provider: Latia GREENP Start: 08-22-2022 End: 08-02-2022 FLUoxetine HCl 10 MG Oral Ca psule 08/22/2022 - 08/02/2022 Provider: Latia GREENP Start: 08-22-2022 End: 08-02-2022 FLUoxetine HCl 10 MG Oral Ca psule 08/22/2022 - 08/02/2022 Provider: Latia MAYORGA Start: 07-20-2022 End: 08-02-2022 FLUoxetine HCl 10 MG Oral Ca psule 07/23/2022 - 08/02/2022 Provider: Latia MAYORGA Fluoxetine Activ e fluticasone propionate 0.05 mg/actuat metered dose nasal spray (9 sources) Corticosteroid Start: 08-09-2022 Flonase Allerg y Relief 50 MCG/ACT Nasal Suspension 08/09/2022 Provider: Latia MAYORGA fluticasone prop ionate (FLONASE) 50 mcg/actuation nasal spray Administer 1 spray into each nostril. 0 Active Fluticasone Prop ionate Active gabapentin 600 mg [...] 12/18/2022 - 11/15/2022 Provider: Latia GREENP Start: 08-22-2022 End: 11-15-2022 Gabapentin 600 MG Oral Table t 08/22/2022 - 11/15/2022 Provider: Latia GREENP Start: 07-03-2022 End: 08-02-2022 Gabapentin 600 MG Oral Table t 07/23/2022 - 08/02/2022 Provider: Latia MAYORGA Gabapentin Activ e hydrALAZINE hydrochloride 25 mg oral tablet (20 sources) Arteriolar Vasodilator Start: 02-06-2023 hydrALAZINE HCl 25 M G Oral Tablet 02/06/2023 Provider: Latia MAYORGA Start: 09-09-2022 End: 11-15-2022 hydrALAZINE HCl 25 MG Oral T ablet 11/08/2022 - 11/15/2022 Provider: Latia MAYORGA Start: 09-09-2022 End: 08-02-2022 hydrALAZINE HCl 25 [...] 08/02/2022 Provider: Latia MAYORGA hydroCHLOROthiaz jaja Active hydroCHLOROthiazide 12.5 mg / losartan potassium 100 mg oral tablet (1 source) Thiazide Diuretic, Angiotensin 2 Receptor Jone take 1 tablet by mouth once in the morning losartan-hydroCHLOROthiazide (HYZAAR) 100-12.5 mg per tablet Take 1 tablet by mouth in the morning. 0 Active lidocaine 0.05 mg/mg medicated patch (4 sources) Antiarrhythmic, Amide Local Anesthetic Star t: 03-22 Lidocaine 5% External Patch 04/18/2023 Provider: Latia MAYORGA losartan potassium 100 mg oral tablet (20 sources) Angiotensin 2 Receptor Jone Star t: 01-19 Losartan Potassium 100 MG Or al Tablet 02/06/2023 Provider: Latia MAYORGA Start: 08-28-2022 End: 11-15-2022 Losartan Potassium 100 MG Or al Tablet 08/28/2022 - 11/15/2022 Provider: Latia MAYORGA Start: 07-28-2022 End: 08-02-2022 Losartan Potassium 100 MG Or al Tablet 07/28/2022 - 08/02/2022 Provider: Losartan Deniai um Active Menthol (1 source) Biofreeze Active metFORMIN hydrochloride 500 mg oral tablet (19 sources) Biguanide Start: 08-09-2022 metFORMIN HCl 500 MG Oral Tablet 08/09/2022 Provider: Latia MAYORGA Start: 06-27-2022 End: 08-02-2022 metFORMIN HCl 500 MG Oral Ta blet 06/27/2022 - 08/02/2022 Provider: metFORMIN HCl Ac tive metFORMIN hydrochloride 500 mg / SITagliptin 50 mg oral tablet (2 sources) Biguanide, Dipeptidyl Peptidase 4 Inhibitor take 1 tablet by mouth once in the morning sitaGLIPtin-metFORMIN (JANUMET) 50-500 mg per tablet Take 1 tablet by mouth in the morning and 1 tablet in the evening. Take with meals. 0 Active take 50-500 mg by mo uth every twenty-four hours Janumet XR 50-500 MG Oral Tablet Extended Release 24 Hour Refills: 0 Active naproxen 500 mg oral tablet (4 sources) Nonsteroidal Anti-inflammatory Drug Start: 04-18-2023 Naproxen 500 MG O ral Tablet 04/18/2023 Provider: Latia MAYORGA ondansetron 4 mg disintegrating oral tablet (6 sources) Serotonin-3 Receptor Antagonist Start: 11-15-2022 Ondansetron 4 MG Ora l Tablet Disintegrating 11/15/2022 Provider: Latia MAYORGA Ondansetron HCl Active pantoprazole 40 mg delayed release oral tablet (20 sources) Proton Pump Inhibitor Start: 12-18-2022 Pantoprazole Sodium 40 MG Oral Tablet Delayed Release 12/18/2022 Provider: Latia GREENP Start: 08-22-2022 End: 11-15-2022 Pantoprazole Sodium 40 [...] / HYDROcodone bitartrate 5 mg oral tablet (14 sources) Opioid Agonist Start: 07-17-2022 End: 08-22-2022 HYDROcodone-Acetam inophen 5-325 MG Oral Tablet 07/17/2022 - 08/22/2022 Provider: Start: 08-20-2017 HYDROcodone-Ac etaminophen 5-325 MG Oral Tablet Quantity: 16 Refills: 0 Start : 20-Aug-2017 Active take 1 tablet by yvette th every six hours as needed for pain HYDROcodone-acetaminophen (NORCO) 7.5-32 5 mg per tablet Take 1 tablet by mouth every 6 (six) hours as needed for pain. Max Daily Amount: 4 tablets 0 Active HYDROcodone-Acet aminophen Active ALPRAZolam 0.5 mg oral tablet (20 sources) Benzodiazepine Start: 02-06-2023 End: 04-18-2023 ALPRAZolam 0.5 MG Oral Tablet 02/06/2023 - 04/18/2023 Provider: Latia MAYORGA Start: 12-18-2022 End: 11-15-2022 ALPRAZolam 0.5 MG Oral Table t 12/18/2022 - 11/15/2022 Provider: Latia MAYORGA Start: 12-18-2022 End: 11-15-2022 ALPRAZolam 0.5 MG Oral Table t 12/18/2022 - 11/15/2022 Provider: Latia GREENP Start: 12-18-2022 End: 11-15-2022 ALPRAZolam 0.5 MG [...] 0 Active azithromycin 250 mg oral tablet (5 sources) Macrolide Antimicrobial Start: 04-01-2023 End: 04-18-2023 Azithromycin 250 MG Oral Tablet 04/01/2023 - 04/18/2023 Provider: Latia MAYORGA baclofen 10 mg oral tablet (11 sources) gamma-Aminobutyric Acid-ergic Agonist Start: 07-17-2022 End: 08-22-2022 Baclofen 10 MG Oral Tablet 07/17/2022 - 08/22/2022 Provider: canagliflozin 100 mg oral tablet (1 source) Sodium-Glucose Cotransporter 2 Inhibitor Invokana 100 MG Oral Tablet Refills: 0 Active Cholecalciferol (1 source) Vitamin D Vitamin D3 TABS Refills: 0 Active Dextromethorphan (1 source) Uncompetitive G-pdeqsr-C-aspartate Receptor Antagonist, Sigma-1 Agonist DexAlone CAPS Refills: 0 Active diazePAM 5 mg oral tablet (1 source) Benzodiazepine Start: 06-07-2017 diazePAM 5 MG Oral Tablet Quantity: 2 Refills: 0 Start : 07-Jun-2017 Active 0.5 ml dulaglutide 3 mg/ml auto-injector (20 sources) GLP-1 Receptor Agonist Start: 07-16-2022 End: 08-22-2022 Trulicity 1.5 MG/0.5ML Subcutaneous Solution Pen-injector 07/23/2022 - 08/02/2022 Provider: Latia Sparks PULL OVER Start: 07-04-2022 End: 08-22-2022 Trulicity 0.75 MG/0.5ML Subc utaneous Solution Pen-injector 07/04/2022 - 08/22/2022 Provider: insulin aspart, human 100 unt/ml injectable solution (2 sources) Insulin Analog End: 05-09-2023 inject 0.15 mL by subcutaneous injection in the morning insulin aspart U-100 (NovoLOG U-100 Insulin aspart) 100 unit/mL injection Inject 0.15 mL (15 Units total) under the skin in the morning and 0.15 mL (15 Units total) before bedtime. 0 05/09/2023 Discontinued (Therapy completed) NovoLOG SOLN Ref ills: 0 Active 3 ml insulin degludec 100 unt/ml pen injector (20 sources) Insulin Analog Start: 07-04-2022 End: 08-22-2022 Tresiba FlexTouch 100 UNIT/ML Subcutaneous Solution Pen-injector 07/16/2022 - 08/22/2022 Provider: insulin degludec (TRESIBA FLEXTOUCH U-100) 100 unit/mL (3 mL) insulin pen Inject 40 Units under the skin nightly. Before dinner 0 Active insulin detemir 100 unt/ml injectable solution (3 sources) Insulin Analog End: 05-09-2023 inject 60 [IU] by subcutaneous injection once daily, then inject 30 [IU] by subcutaneous injection in the morning insulin detemir U-100 (LEVEMIR) 100 unit/mL injection Inject 60 Units under the skin nightly. 30 units in am 0 05/09/2023 Discontinued (Therapy completed) Levemir Active Levemir SOLN Ref ills: 0 Active 3 ml insulin lispro 100 unt/ml pen injector (20 sources) Insulin Analog Start: 07-05-2022 End: 08-22-2022 Insulin Lispro (1 Unit Dial) 100 UNIT/ML Subcutaneous Solution Pen-injector 07/10/2022 - 08/22/2022 Provider: End: 05-09-2023 inject 0.12 mL by subcutaneous injection in the morning insulin lispro (HumaLOG) 100 unit/mL injection Inject 0.12 mL (12 Units total) under the skin in the morning and 0.12 mL (12 Units total) at noon and 0.12 mL (12 Units total) in the evening. Inject before meals. 12 units morning and lunch, 16 units at dinner. 0 Active Insulin Lispro A ctive LORazepam 0.5 mg oral tablet (1 source) Benzodiazepine Start: 07-27-2017 LORazepam 0.5 MG Oral Tablet Quantity: 10 Refills: 0 Start : 27-Jul-2017 Active methylPREDNISolone 4 mg oral tablet (1 [...] 01-08-2018 07-23-2022 Chronic Diabetes mellitus without complication (7 sources) Type 2 diabetes mellitus without complications; Translations: [Type 2 diabetes mellitus without complication] Onset: 07-18-2022 Chronic Disorders of lipid metabolism (20 sources) Hyperlipidemia, unspecified; Translations: [Hyperlipidemia] Onset: 01-08-2018 07-23-2022 Chronic Essential hypertension (15 sources) Essential (primary) hypertension; Translations: [Essential hypertension] Onset: 01-08-2018 07-23-2022 Chronic Miscellaneous mental health disorders (20 sources) Primary insomnia; Translations: [Primary insomnia] Onset: 07-23-2022 07-23-2022 Chronic Mood disorders (20 sources) Moderate recurrent major depression; Translations: [Major depressive disorder, recurrent, moderate] Onset: 07-23-2022 07-23-2022 Chronic Mood disorders (2 sources) Major depressive disorder, single episode, unspecified; Translations: [Major depressive disorder, single episode, unspecified] Onset: 01-08-2018 Other aftercare (1 source) 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; 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] Onset: 09-27-2022 Episodic [...] MYELO-/RADICULOP LUMB] Onset: 09-25-2022 Chronic Substance-related disorders (20 sources) Tobacco dependence syndrome; Translations: [Nicotine dependence, unspecified, uncomplicated] Onset: 07-23-2022 07-23-2022 Chronic Unclassified (2 sources) Body mass index (BMI) 39.0-39.9, adult; Translations: [Body mass index (BMI) 39.0-39.9, adult] Onset: 01-08-2018 Chronic Unclassified (4 sources) LOW BACK PAIN, UNSPECIFIED; Translations: [LOW BACK PAIN, UNSPECIFIED] Onset: 08-17-2022 Unclassified (1 source) copression fracture L2 Onset: 05-16-2023 Past or Other Problems Problem Classification Problem [...] conditions (not mental disorders or infectious disease) (13 sources) Encounter for screening for malignant neoplasm [...] Results Test Name Value Interpretation Reference Range Facility Surgical Pathologyon 023 Surgical Pathology Normal [facility] Comment on above: Result Comment: [facility] [address] [place] [address] Surgical Pathology Consultation Patient Name:TUNDE JACKSarah:1950 (Age: 72)Gender:FTaken:05/16/2023Reported:05/22/2023hysician(s):Hardy Jay DO ([phone])Copy To: Rec. #:[id number]: #[id number] Final Pathologic Diagnosis L2 vertebra, biopsy: Viable bone with fibrosis and new bone formation. Negative for granuloma and neoplasia. Report Electronically Signed Out gr/05/22/2023Nikolai Fitch MD Interpretation performed at [facility], [address] [place] [id number], License number: [id number]. Clinical History Compression fracture L2. Gross Description Received in formalin labeled JACK, L2 vertebra , are four cores of firm crowell bone each 0.3 cm diameter and ranging from 0.3 to 1.0 cm in length. The specimen is entirely submitted in a single cassette following decalcification. (1,ns,S23, 68290, m1) PV pv/05/17/2023P Specimen(s) Received L2 vertebra Fee Codes(s): 1; 19421, 27394 BASIC METABOLIC PANLon 05-10 Anion gap [Moles/Vol] 7 mmol/L Normal 5-15 [facility] Comment on above: Performed By: #### B MP #### [facility] ([id number]) [address], [address] [place] [address] Calcium [Mass/Vol] 10.1 mg/dL Normal 8.5-10.5 [facility] Comment on above: Performed By: #### B MP #### [facility] ([id number]) [address], [address] [place] [address] Chloride [Moles/Vol] 107 mmol/L Normal 98-109 [facility] Comment on above: Performed By: #### B MP #### [facility] ([id number]) [address], [address] [place] [address] CO2 [Moles/Vol] 26 mmol/L Normal 22-32 [facility] Comment on above: Performed By: #### B MP #### [facility] ([id number]) [address], [address] [place] [address] Creatinine [Mass/Vol] 0.65 mg/dL Normal 0.40-1.00 [facility] Comment on above: Result Comment: METH OD TRACEABLE TO IDMS STANDARD Performed By: #### B MP #### [facility] ([id number]) [address], [address] [place] [address] eGFR (CKD-EPI) NON-RACE DEPENDENT >90 Normal >59 [facility] Comment on above: Result Comment: Reported eGFR is based on the CKD-EPI 2020 equation that does not use a race coefficient. Performed By: #### B MP #### [facility] ([id number]) [address] [place] [address] Glucose [Mass/Vol] 83 mg/dL Normal 65-99 [facility] Comment on above: Performed By: #### B MP #### [facility] ([id number]) [address] [place] [address] Potassium [Moles/Vol] 4.1 mmol/L Normal 3.5-5.0 [facility] Comment on above: Performed By: #### B MP #### [facility] ([id number]) [address] [place] [address] Sodium [Moles/Vol] 140 mmol/L Normal 134-146 [facility] Comment on above: Performed By: #### B MP #### [facility] ([id number]) [address] [place] [address] Urea nitrogen [Mass/Vol] 19 mg/dL Normal 5-27 [facility] Comment on above: Performed By: #### B MP #### [facility] ([id number]) [address] [place] [address] Basic Metabolic Panelon 04-20 Anion gap [Moles/Vol] 7 mmol/L 5 - 15 mmol/L [facility] Calcium [Mass/Vol] 10.1 mg/dL 8.5 - 10.5 mg/dL [facility] Chloride [Moles/Vol] 107 mmol/L 98 - 109 mmol/L [facility] CO2 [Moles/Vol] 26 mmol/L 22 - 32 mmol/L [facility] Creatinine [Mass/Vol] 0.65 mg/dL 0.40 - 1.00 mg/dL [facility] Comment on above: METHOD TRACEABLE TO [facility] STANDARD eGFR (CKD-EPI)non-race dependent - PINF [facility] Comment on above: Reported eGFR is based on the CKD-EPI 2020 equation that does not use a race coefficient. Glucose [Mass/Vol] 83 mg/dL 65 - 99 mg/dL [facility] Potassium [Moles/Vol] 4.1 mmol/L 3.5 - 5.0 mmol/L [facility] Sodium [Moles/Vol] 140 mmol/L 134 - 146 mmol/L [facility] Urea nitrogen [Mass/Vol] 19 mg/dL 5 - 27 mg/dL [facility][note 3] System ECG 12 leadon 05-10-2023 TRACEMASTERVUE [facility] Comp Metabolic Profon 2022 Albumin [Mass/Vol] 4.3 g/dL Normal 3.5-5.2 [facility] Comment on above: Performed By: #### L IPR, CP #### [facility] [address] [place], [place] [id number] Sewer Pipe Offbearer: Genaro Angel MD Albumin/Glob Ratio 1.5 Normal 1.0-2.5 [facility] Comment on above: Performed By: #### L IPR, CP #### [facility] [address] [place], [place] [id number] Sewer Pipe Offbearer: Genaro Angel MD Alkaline Phos 116 U/L High 35-104 [facility] Comment on above: Performed By: #### L IPR, CP #### [facility] [address] [place] [address] Sewer Pipe Offbearer: Genaro Angel MD ALT [Catalytic activity/Vol] 25 U/L Normal 5-33 [facility] Comment on above: Performed By: #### L IPR, CP #### [facility] [address] [place] [address] Sewer Pipe Offbearer: Genaro Angel MD Anion gap [Moles/Vol] 15 mmol/L Normal 9-17 [facility] Comment on above: Performed By: #### L IPR, CP #### [facility] [address] [place] [address] Sewer Pipe Offbearer: Genaro Angel MD AST [Catalytic activity/Vol] 32 U/L High <32 [facility] Comment on above: Performed By: #### L IPR, CP #### [facility] [address] [place] [address] Sewer Pipe Offbearer: Genaro Angel MD Bilirubin [Mass/Vol] 0.2 mg/dL Low 0.3-1.2 [facility] Comment on above: Performed By: #### L IPR, CP #### [facility] [employer] [address] [place] [address] Sewer Pipe Offbearer: Genaro Angel MD Calcium [Mass/Vol] 10.7 mg/dL High 8.6-10.4 [facility] Comment on above: Performed By: #### L IPR, CP #### [facility] [address] [place] [phone] Sewer Pipe Offbearer: Genaro Angel MD Chloride [Moles/Vol] 102 mmol/L Normal 98-107 [facility] Comment on above: Performed By: #### L IPR, CP #### [facility] [employer] [address] [place] [phone] Sewer Pipe Offbearer: Genaro Angel MD CO2 [Moles/Vol] 23 mmol/L Normal 20-31 [facility] Comment on above: Performed By: #### L IPR, CP #### [address] [address] Sewer Pipe Offbearer: Genaro Angel MD Creatinine [Mass/Vol] 0.93 mg/dL High 0.50-0.90 [facility] Comment on above: Performed By: #### L IPR, CP #### [address] [address] Sewer Pipe Offbearer: Genaro Angel MD GFR/1.73 sq M.predicted among non-blacks MDRD (S/P/Bld) [Vol rate/Area] mL/min/{1.73_m2} Normal >60 [facility] Comment on above: Result Comment: These [...] Performed By: #### L IPR, CP #### [address] [address] Sewer Pipe Offbearer: Genaro Angel MD Glucose [Mass/Vol] 138 mg/dL High 70-99 [facility] Comment on above: Performed By: #### L IPR, CP #### [facility] [employer] [address] [place] [phone] Sewer Pipe Offbearer: Genaro Angel MD Potassium [Moles/Vol] 5.3 mmol/L Normal 3.7-5.3 [facility] Comment on above: Performed By: #### L IPR, CP #### [facility] [employer] [address] [place] [address] [phone] Sewer Pipe Offbearer: Genaro Angel MD Protein [Mass/Vol] 7.1 g/dL Normal 6.4-8.3 [facility] Comment on above: Performed By: #### L IPR, CP #### [address] [address] Sewer Pipe Offbearer: Genaro Angel MD Sodium [Moles/Vol] 140 mmol/L Normal 135-144 [facility] Comment on above: Performed By: #### L IPR, CP #### [facility] [address] [place] [phone] Sewer Pipe Offbearer: Genaro Angel MD Urea nitrogen [Mass/Vol] 26 mg/dL High 01-09 [facility] Comment on above: Performed By: #### L IPR, CP #### [address] [address] Sewer Pipe Offbearer: Genaro Angel MD Lipid Profileon 11-10-2022 Cholesterol [Mass/Vol] 152 mg/dL Normal <200 [facility] Comment on above: Result Comment: Cholesterol Guidelines: <200 Desirable 200-240 Borderline >240 Undesirable Performed By: #### L IPR, CP #### [address] [address] Sewer Pipe Offbearer: Genaro Angel MD Cholesterol in HDL [Mass/Vol] 30 mg/dL Low >40 [facility] Comment on above: Result Comment: HDL Guidelines: <40 Undesirable 40-59 Borderline >59 Desirable Performed By: #### L IPR, CP #### [address] [address] Sewer Pipe Offbearer: Genaro Angel MD Cholesterol in LDL [Mass/Vol] 44 mg/dL Normal 0-130 [facility] Comment on above: Result Comment: LDL Guidelines: <100 Desirable 100-129 Near to/above Desirable 130-159 Borderline >159 Undesirable Direct (measured) LDL and calculated LDL are not interchangeable tests. Performed By: #### L IPR, CP #### [facility] [employer] [address] [place] [address] [place] [phone] Sewer Pipe Offbearer: Genaro Angel MD Cholesterol.total /Cholesterol in HDL [Mass ratio] 5.1 {ratio} High <5 [facility] Comment on above: Performed By: #### L IPR, CP #### [facility] [address] [place] [address] Sewer Pipe Offbearer: Genaro Angel MD Triglyceride [Mass/Vol] 390 mg/dL High <150 [facility] Comment on above: Result Comment: Triglyceride Guidelines: <150 Desirable 150-199 Borderline 200-499 High >499 Very high Based on AHA Guidelines for fasting triglyceride, February 2012. Performed By: #### L IPR, CP #### [facility] [address] [place] [phone] Sewer Pipe Offbearer: Genaro Angel MD Laboratory - Chemistry and C hemistry - challengeon 11-09-2022 Albumin [Mass/Vol] 4.3 g/dL (3.5-5.2 ) [facility] Comment on above: Note: 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: [employer]CE[employer] AUTOFILE (3002) ALT [Catalytic activity/Vol] 25 U/L (5-33 ) [facility] Comment on above: Note: 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: [employer] AUTOFILE (3002) Anion gap [Moles/Vol] 15 mmol/L (9-17 ) [facility] Comment on above: Note: 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: [employer] AUTOFILE (3002) AST [Catalytic activity/Vol] 32 U/L High (<32 ) [facility] Comment on above: Note: 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: [employer] AUTOFILE (3002) Bilirubin [Mass/Vol] 0.2 mg/dL Low (0.3-1.2 ) [facility] Comment on above: Note: 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: [employer] AUTOFILE (3002) Calcium [Mass/Vol] 10.7 mg/dL High (8.6-10.4 ) [facility] Comment on above: Note: 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: [employer] AUTOFILE (3002) Chloride [Moles/Vol] 102 mmol/L (98-107 ) [facility] Comment on above: Note: 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: [employer]FILE (3002) Cholesterol [Mass/Vol] 152 mg/dL (<200 ) [facility] Comment on above: Note: Cholesterol Gu idelines:<200 [id number] Borderline>240 UndesirableResponsible Observer: [employer] AUTOFILE (3002) Cholesterol.total /Cholesterol in HDL [Mass ratio] 5.1 {ratio} High (<5 ) [facility] Comment on above: Note: 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: [employer] AUTOFILE (3002) CO2 [Moles/Vol] 23 mmol/L (20-31 ) [facility] Comment on above: Note: 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: [employer] AUTOFILE (3002) Creatinine [Mass/Vol] 0.93 mg/dL High (0.50-0.90 ) [facility] Comment on above: Note: 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: [employer] AUTOFILE (3002) GFR/1.73 sq M.predicted among non-blacks MDRD (S/P/Bld) [Vol rate/Area] mL/min/{1.73_m2} (>60 ) [facility] Comment on above: Note: These results [...] Glucose [Mass/Vol] 138 mg/dL High (70-99 ) [facility] Comment on above: Note: 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: [employer] AUTOFILE (3002) Magnesium [Mass/Vol] 30 mg/dL Low (>40 ) [facility] Comment on above: Note: HDL Guidelines :<40 [id number] Borderline>59 DesirableResponsible Observer: [employer]CEV AUTOFILE (3002) Magnesium [Mass/Vol] 44 mg/dL (0-130 ) [facility] Comment on above: Note: LDL Guidelines :<100 Xjrmrtsto507-136 Near to/above [id number] Borderline>159 UndesirableDirect (measured) LDL and calculated LDL are not interchangeable tests.Responsible Observer: [employer] AUTOFILE (3002) Potassium [Moles/Vol] 5.3 mmol/L (3.7-5.3 ) [facility] Comment on above: Note: 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: [employer] AUTOFILE (3002) Protein [Mass/Vol] 7.1 g/dL (6.4-8.3 ) [facility] Comment on above: Note: 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: [employer] AUTOFILE (3002) Sodium [Moles/Vol] 140 mmol/L (135-144 ) [facility] Comment on above: Note: 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: [employer] AUTOFILE (3002) Triglyceride [Mass/Vol] 390 mg/dL High (<150 ) [facility] Comment on above: Note: Triglyceride G uidelines:<150 [id number] Ongtfmzwjv530-306 High>499 Very highBased on AHA Guidelines for fasting triglyceride, February 2012.Responsible Observer: [employer] AUTOFILE (3002) Urea nitrogen [Mass/Vol] 26 mg/dL High (8-23 ) [facility] Comment on above: Note: 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: [employer] AUTOFILE (3002) No Panel Informationon 11-09 Albumin/Glob Ratio 1.5 (1.0-2.5 ) [facility] Comment on above: Note: 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: [employer] AUTOFILE (3002) Alkaline Phos 116 U/L High (35-104 ) [facility] Comment on above: Note: 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: [employer] AUTOFILE (3002) Reported Physicians See Note [facility] Comment on above: Note: Reported Physi cians:Ordering: Latia Sparks OMARAttending: Bridger NadiraReferring: Sparks Latia CREATININE URINEon URINE CREAT 31.31 mg/dL Normal 20.00-300.0 0 [facility] Comment on above: Performed By: #### C SHAWN #### [facility] [address] [address] [address] Shashi Jimenez MICROALBUMIN, RAND URon 09-17 mALB 14.3 mg/L Normal <=30.0 [facility] Comment on above: Performed By: #### M ALBR #### [facility] [address] [place] [address] Dr. Shashi Jimenez PROF 14(COMP METB)on 023 Albumin [Mass/Vol] 3.7 g/dL Normal 3.4-5.0 [facility] Comment on above: Performed By: #### C MP #### [facility] [address] [place] [address] Dr. Shashi Jimenez Albumin/Globulin [Mass ratio] 0.9 {ratio} Normal [facility] Comment on above: Performed By: #### C MP #### [facility] [address] [place] [address] Dr. Shashi Jimenez ALP [Catalytic activity/Vol] 109 U/L Normal 46-116 [facility] Comment on above: Performed By: #### C MP #### [facility] [address] [place] [address] Dr. Shashi Jimenez ALT [Catalytic activity/Vol] 39 U/L Normal 14-59 [facility] Comment on above: Performed By: #### C MP #### [facility] [address] [place] [address] Dr. Shashi Jimenez Anion gap [Moles/Vol] 12.0 mmol/L Normal [facility] Comment on above: Performed By: #### C MP #### [facility] [address] [place] [address] Dr. Shashi Jimenez AST [Catalytic activity/Vol] 35 U/L Normal 15-37 [facility] Comment on above: Performed By: #### C MP #### [facility] [address] [place] [address] Dr. Shashi Jimenez Bilirubin [Mass/Vol] 0.3 mg/dL Normal 0.2-1.0 [facility] Comment on above: Performed By: #### C MP #### [facility] [address] [place] [address] Dr. Shashi Jimenez Calcium [Mass/Vol] 10.5 mg/dL Critically high 8.5-10.1 [facility] Comment on above: Performed By: #### C MP #### [facility] [address] [address] [address] Shashi Jimenez Chloride [Moles/Vol] 103 mmol/L Normal 98-107 [facility] Comment on above: Performed By: #### C MP #### [facility] [address] [address] [address] Shashi Jimenez CO2 [Moles/Vol] 29.1 mmol/L Normal 21.0-32.0 [facility] Comment on above: Performed By: #### C MP #### [facility] [address] [address] [address] Shashi Jimenez Creatinine [Mass/Vol] 1.04 mg/dL Critically high 0.55-1.02 [facility] Comment on above: Performed By: #### C MP #### [facility] [address] [address] [address] Shashi Jimenez EGFR-AF MONEGASQUE >60 Normal >=60 [facility] Comment on above: Performed By: #### C MP #### [facility] [address] [address] [address] Shashi Jimenez EGFR-NON AF MONEGASQUE 52 mL/min/1.73m2 Critically low >=60 [facility] Comment on above: Performed By: #### C MP #### [facility] [address] [address] [address] Shashi Jimenez Globulin (S) [Mass/Vol] 4.2 g/dL Normal [facility] Comment on above: Performed By: #### C MP #### [facility] [address] [address] [address] Shashi Jimenez Glucose [Mass/Vol] 258 mg/dL Critically high 74-106 [facility] Comment on above: Performed By: #### C MP #### [facility] [address] [address] [address] Shashi Jimenez Potassium [Moles/Vol] 4.1 mmol/L Normal 3.5-5.1 [facility] Comment on above: Performed By: #### C MP #### [facility] [address] [address] [address] Shashi Jimenez Protein [Mass/Vol] 7.9 g/dL Normal 6.4-8.2 [facility] Comment on above: Performed By: #### C MP #### [facility] [address] [address] [address] Shashi Jimenez Sodium [Moles/Vol] 140 mmol/L Normal 136-145 [facility] Comment on above: Performed By: #### C MP #### [facility] [address] [address] [address] Shashi Jimenez Urea nitrogen [Mass/Vol] 23.0 mg/dL Critically high 7.0-18.0 [facility] Comment on above: Performed By: #### C MP #### [facility] [address] [address] [address] Shashi Jimenez Urea nitrogen/Creatini ne [Mass ratio] 22.1 mg/mg Normal [facility] Comment on above: Performed By: #### C MP #### [facility] [address] [address] [address] Shashi Jimenez POINT OF CARE GLUCOSEon 05-0 Glucose [Mass/Vol] 97 mg/dL Normal 74-106 [facility] Comment on above: Performed By: #### P OCGLUC #### [facility] [address] [address] [address] Shashi Jimenez POINT OF CARE GLUCOSEon 03-2 Glucose [Mass/Vol] 160 mg/dL Critically high 74-106 [facility] Comment on above: Performed By: #### P OCGLUC #### [facility] [address] [address] [address] LSPINE WO CONon [...] by: ERIN BERMAN Date: 2022-07-27 16:56 Normal [facility] CBCon 07-24-2022 Erythrocyte distribution width (RBC) [Ratio] 14.1 % Normal 11.8-14.4 [facility] Comment on above: Performed By: #### I PF, TSHX, VD25, CBC, CP, LIPR #### [facility] [address] [place] [phone] Sewer Pipe Offbearer: Genaro Angel MD Hematocrit (Bld) [Volume fraction] 43.9 % Normal 36.3-47.1 [facility] Comment on above: Performed By: #### I PF, TSHX, VD25, CBC, CP, LIPR #### [facility] [address] [place] [phone] Sewer Pipe Offbearer: Genaro Angel MD Hemoglobin (Bld) [Mass/Vol] 14.3 g/dL Normal 11.9-15.1 [facility] Comment on above: Performed By: #### I PF, TSHX, VD25, CBC, CP, LIPR #### [address] [address] Sewer Pipe Offbearer: Genaro Angel MD MCH (RBC) [Entitic mass] 30.5 pg Normal 25.2-33.5 [facility] Comment on above: Performed By: #### I PF, TSHX, VD25, CBC, CP, LIPR #### [address] [address] Sewer Pipe Offbearer: Genaro Angel MD MCHC (RBC) [Mass/Vol] 32.6 g/dL Normal 28.4-34.8 [facility] Comment on above: Performed By: #### I PF, TSHX, VD25, CBC, CP, LIPR #### [address] [address] Sewer Pipe Offbearer: Genaro Angel MD MCV (RBC) [Entitic vol] 93.6 fL Normal 82.6-102.9 [facility] Comment on above: Performed By: #### I PF, TSHX, VD25, CBC, CP, LIPR #### [address] [address] Sewer Pipe Offbearer: Genaro Angel MD NRBC Automated 0.0 per 100 WBC Normal 0.0 [facility] Comment on above: Performed By: #### I PF, TSHX, VD25, CBC, CP, LIPR #### [address] [address] Sewer Pipe Offbearer: Genaro Angel MD Platelet Count See Reflexed IPF Result Normal 138-453 [facility] Comment on above: Performed By: #### I PF, TSHX, VD25, CBC, CP, LIPR #### [address] [address] Sewer Pipe Offbearer: Genaro Angel MD RBC (Bld) [#/Vol] 4.69 10*6/uL Normal 3.95-5.11 [facility] Comment on above: Performed By: #### I PF, TSHX, VD25, CBC, CP, LIPR #### [facility] [address] [place], [place] [phone] Sewer Pipe Offbearer: Genaro Angel MD WBC (Bld) [#/Vol] 8.4 10*3/uL Normal 3.5-11.3 [facility] Comment on above: Performed By: #### I PF, TSHX, VD25, CBC, CP, LIPR #### [facility] [address] [place] [address] Sewer Pipe Offbearer: Genaro Angel MD Hematocrit (Bld) [Volume fraction] 43.9 % 36.3 - 47.1 % [facility] Hemoglobin (Bld) [Mass/Vol] 14.3 g/dL 11.9 - 15.1 g/dL [facility] MCH (RBC) [Entitic mass] 30.5 pg 25.2 - 33.5 pg [facility] MCHC (RBC) [Mass/Vol] 32.6 g/dL 28.4 - 34.8 g/dL [facility] MCV (RBC) [Entitic vol] 93.6 fL 82.6 - 102.9 fL [facility] NRBC Automated 0.0 0.0 per 100 WBC [facility] Platelet distribution width (Bld) [Ratio] 14.1 % 11.8 - 14.4 % [facility] Platelets (Bld) [#/Vol] See Reflexed IPF Result [facility] RBC (Bld) [#/Vol] 4.69 10*6/uL 3.95 - 5.1 1 m/uL [facility] WBC (Bld) [#/Vol] 8.4 10*3/uL [facility] [employer] Metabolic Profon 2022 Albumin [Mass/Vol] 4.3 g/dL Normal 3.5-5.2 [facility] Comment on above: Performed By: #### I PF, TSHX, VD25, CBC, CP, LIPR #### [address] [address] Sewer Pipe Offbearer: Genaro Angel MD Albumin/Glob Ratio 1.3 Normal 1.0-2.5 [facility] Comment on above: Performed By: #### I PF, TSHX, VD25, CBC, CP, LIPR #### [address] [address] Sewer Pipe Offbearer: Genaro Angel MD Alkaline Phos 116 U/L High 35-104 [facility] Comment on above: Performed By: #### I PF, TSHX, VD25, CBC, CP, LIPR #### [address] [address] Sewer Pipe Offbearer: Genaro Angel MD ALT [Catalytic activity/Vol] 27 U/L Normal 5-33 [facility] Comment on above: Performed By: #### I PF, TSHX, VD25, CBC, CP, LIPR #### [address] [address] Sewer Pipe Offbearer: Genaro Angel MD Anion gap [Moles/Vol] 15 mmol/L Normal 9-17 [facility] Comment on above: Performed By: #### I PF, TSHX, VD25, CBC, CP, LIPR #### [address] [address] Sewer Pipe Offbearer: Genaro Angel MD AST [Catalytic activity/Vol] 30 U/L Normal <32 [facility] Comment on above: Performed By: #### I PF, TSHX, VD25, CBC, CP, LIPR #### [address] [address] Sewer Pipe Offbearer: Genaro Angel MD Bilirubin [Mass/Vol] 0.4 mg/dL Normal 0.3-1.2 [facility] Comment on above: Performed By: #### I PF, TSHX, VD25, CBC, CP, LIPR #### [address] [address] Sewer Pipe Offbearer: Genaro Angel MD Calcium [Mass/Vol] 10.9 mg/dL High 8.6-10.4 [facility] Comment on above: Performed By: #### I PF, TSHX, VD25, CBC, CP, LIPR #### [address] [address] Sewer Pipe Offbearer: Genaro Angel MD Chloride [Moles/Vol] 100 mmol/L Normal 98-107 [facility] Comment on above: Performed By: #### I PF, TSHX, VD25, CBC, CP, LIPR #### [address] [address] Sewer Pipe Offbearer: Genaro Angel MD CO2 [Moles/Vol] 20 mmol/L Normal 20-31 [facility] Comment on above: Performed By: #### I PF, TSHX, VD25, CBC, CP, LIPR #### [address] [address] Sewer Pipe Offbearer: Genaro Angel MD Creatinine [Mass/Vol] 0.95 mg/dL High 0.50-0.90 [facility] Comment on above: Performed By: #### I PF, TSHX, VD25, CBC, CP, LIPR #### [address] [address] Sewer Pipe Offbearer: Genaro Angel MD GFR/1.73 sq M.predicted among non-blacks MDRD (S/P/Bld) [Vol rate/Area] mL/min/{1.73_m2} Normal >60 [facility] Comment on above: Result Comment: These [...] PF, TSHX, VD25, CBC, CP, LIPR #### [facility] [employer] [address] [place] [address] Sewer Pipe Offbearer: Genaro Angel MD Glucose [Mass/Vol] 259 mg/dL High 70-99 [facility] Comment on above: Performed By: #### I PF, TSHX, VD25, CBC, CP, LIPR #### [address] [address] Sewer Pipe Offbearer: Genaro Angel MD Potassium [Moles/Vol] 4.7 mmol/L Normal 3.7-5.3 [facility] Comment on above: Performed By: #### I PF, TSHX, VD25, CBC, CP, LIPR #### [address] [address] Sewer Pipe Offbearer: Genaro Angel MD Protein [Mass/Vol] 7.6 g/dL Normal 6.4-8.3 [facility] Comment on above: Performed By: #### I PF, TSHX, VD25, CBC, CP, LIPR #### [facility] [employer] [address] [place] [address] Sewer Pipe Offbearer: Genaro Angel MD Sodium [Moles/Vol] 135 mmol/L Normal 135-144 [facility] Comment on above: Performed By: #### I PF, TSHX, VD25, CBC, CP, LIPR #### [address] [address] Sewer Pipe Offbearer: Genaro Angel MD Urea nitrogen [Mass/Vol] 33 mg/dL High 8-23 [facility] Comment on above: Performed By: #### I PF, TSHX, VD25, CBC, CP, LIPR #### [facility] [address] [place] [address] Sewer Pipe Offbearer: Genaro Angel MD [facility] Metabolic [facility] 07-24-2022 Albumin [Mass/Vol] 4.3 g/dL 3.5 - 5.2 g/dL [facility] Albumin/Globulin [Mass ratio] 1.3 {ratio} 1.0 - 2.5 [facility] ALP [Catalytic activity/Vol] 116 U/L High 35 - 104 U/L [facility] ALT [Catalytic activity/Vol] 27 U/L 5 - 33 U/L [facility] Anion gap [Moles/Vol] 15 mmol/L 9 - 17 mmol/L [facility] AST [Catalytic activity/Vol] 30 U/L NINF - 32 U/L [facility] Bilirubin [Mass/Vol] 0.4 mg/dL 0.3 - 1.2 mg/dL [facility] Calcium [Mass/Vol] 10.9 mg/dL High 8.6 - 10.4 mg/dL [facility] Chloride [Moles/Vol] 100 mmol/L 98 - 107 mmol/L [facility] CO2 [Moles/Vol] 20 mmol/L 20 - 31 mmol/L [facility] Creatinine [Mass/Vol] 0.95 mg/dL High 0.50 - 0.90 mg/dL [facility] GFR/1.73 sq M.predicted MDRD (S/P/Bld) [Vol rate/Area] - PINF [facility] Comment on above: These results are not [...] 259 mg/dL High 70 - 99 mg/dL [facility] Potassium [Moles/Vol] 4.7 mmol/L 3.7 - 5.3 mmol/L [facility] Protein [Mass/Vol] 7.6 g/dL 6.4 - 8.3 g/dL [facility] Sodium [Moles/Vol] 135 mmol/L 135 - 144 mmol/L [facility] Urea nitrogen [Mass/Vol] 33 mg/dL High 8 - 23 mg/dL [facility] Immature Platelet Fractionon 07-24-2022 Platelet, Fluorescence 158 [facility] Comment on above: ORDERED BY LAB Platelet, Immature Fraction 4.5 % 1.1 - 10.3 % [facility] Comment on above: ORDERED BY LAB [facility] Lipid Panelon 07-24-2022 Cholesterol [Mass/Vol] 153 mg/dL NINF - 200 mg/dL [facility] Comment on above: Cholesterol Guidelines: <200 Desirable 200-240 Borderline >240 Undesirable Cholesterol in HDL [Mass/Vol] 29 mg/dL Low 40 - PINF mg/dL [facility] Comment on above: HDL Guidelines: <40 Undesirable 40-59 Borderline >59 Desirable Cholesterol in LDL [Mass/Vol] 60 mg/dL 0 - 130 mg/dL [facility] Comment on above: LDL Guidelines: <100 Desirable 100-129 Near to/above Desirable 130-159 Borderline >159 Undesirable Direct (measured) LDL and calculated LDL are not interchangeable tests. Cholesterol.total /Cholesterol in HDL [Mass ratio] 5.3 {ratio} High NINF - 5 [facility] Triglyceride [Mass/Vol] 319 mg/dL High NINF - 150 mg/dL [facility] Comment on above: Triglyceride Guidelines: <150 Desirable 150-199 Borderline 200-499 High >499 Very high Based on AHA Guidelines for fasting triglyceride, February 2012. Lipid Profileon 07-24-2022 Cholesterol [Mass/Vol] 153 mg/dL Normal <200 [facility] Comment on above: Result Comment: Cholesterol Guidelines: <200 Desirable 200-240 Borderline >240 Undesirable Performed By: #### I PF, TSHX, VD25, CBC, CP, LIPR #### [facility] [employer] [address] [place] [address] Sewer Pipe Offbearer: Genaro Angel MD Cholesterol in HDL [Mass/Vol] 29 mg/dL Low >40 [facility] Comment on above: Result Comment: HDL Guidelines: <40 Undesirable 40-59 Borderline >59 Desirable Performed By: #### I PF, TSHX, VD25, CBC, CP, LIPR #### [facility] [employer] [address] [place] [phone] Sewer Pipe Offbearer: Genaro Angel MD Cholesterol in LDL [Mass/Vol] 60 mg/dL Normal 0-130 [facility] Comment on above: Result Comment: LDL Guidelines: <100 Desirable 100-129 Near to/above Desirable 130-159 Borderline >159 Undesirable Direct (measured) LDL and calculated LDL are not interchangeable tests. Performed By: #### I PF, TSHX, VD25, CBC, CP, LIPR #### [facility] [employer] [address] [place] [phone] Sewer Pipe Offbearer: Genaro Angel MD Cholesterol.total /Cholesterol in HDL [Mass ratio] 5.3 {ratio} High <5 [facility] Comment on above: Performed By: #### I PF, TSHX, VD25, CBC, CP, LIPR #### [facility] [employer] [address] [place] [phone] Sewer Pipe Offbearer: Genaro Angel MD Triglyceride [Mass/Vol] 319 mg/dL High <150 [facility] Comment on above: Result Comment: Triglyceride Guidelines: <150 Desirable 150-199 Borderline 200-499 High >499 Very high Based on AHA Guidelines for fasting triglyceride, February 2012. Performed By: #### I PF, TSHX, VD25, CBC, CP, LIPR #### [facility] [employer] [address] [place] [address] [id number] Sewer Pipe Offbearer: Genaro Angel MD No Panel Informationon 07-24 Interpretation and review of laboratory results Abnormal [employer] [facility] [employer] [facility] [employer] PLT, Immature Fract.on 07-24 Platelet, Fluoresc. 158 k/uL Normal 138-453 [facility] Comment on above: Result Comment: ORDE RED BY LAB Performed By: #### I PF, TSHX, VD25, CBC, CP, LIPR #### [employer] [address] [place] [address] 34484 Sewer Pipe Offbearer: Genaro Angel MD PLT, Immature Fract. 4.5 % Normal 1.1-10.3 [facility] Comment on above: Result Comment: ORDE RED BY LAB Performed By: #### I PF, TSHX, VD25, CBC, CP, LIPR #### [employer] [address] [place] [address] 03017 Sew[employer] Pipe Offbearer: Genaro Angel MD TSH w/reflex to FT4on 2022 Thyroid Stim. Horm. 1.50 uIU/mL Normal 0.30-5.00 [facility] Comment on above: Performed By: #### I PF, TSHX, VD25, CBC, CP, LIPR #### [facility] [address] [place] [address] 8[address] Sewer Pipe Offbearer: Genaro Angel MD TSH with Reflexon 07-24-2022 TSH Qn 1.50 m[IU]/L [facility] [employer] [facility] [employer] Vitamin D 25 Hydroxyon 07-24 25-hydroxyvitamin D3 [Mass/Vol] 92.8 ng/mL 29.9 - PINF ng/mL [facility] Comment on above: Reference Range: Vitamin D status Range Deficiency <20 ng/mL Mild Deficiency 20-30 ng/mL Sufficiency 30-100 ng/mL Toxicity >100 ng/mL [facility] [employer] Vitamin D 25 OHon 07-24-2022 Vitamin D 25 OH 92.8 ng/mL Normal >29.9 [facility] Comment on above: Result Comment: Reference Range: Vitamin D status Range Deficiency <20 ng/mL Mild Deficiency 20-30 ng/mL Sufficiency 30-100 ng/mL Toxicity >100 ng/mL Performed By: #### I PF, TSHX, VD25, CBC, CP, LIPR #### [employer] [address] [place] [address] 50870 Sewer Pipe Offbearer: Genaro Angel MD Laboratory - Chemistry and C hemistry - challengeon 07-23-2022 Albumin [Mass/Vol] 4.3 g/dL (3.5-5.2 ) [facility] Comment on above: Note: 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: [employer] (3002) ALT [Catalytic activity/Vol] 27 U/L (5-33 ) [facility] Comment on above: Note: 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: [employer] (3002) Anion gap [Moles/Vol] 15 mmol/L (9-17 ) [facility] Comment on above: Note: 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: [employer] (3002) AST [Catalytic activity/Vol] 30 U/L (<32 ) [facility] Comment on above: Note: 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: [employer] (3002) Bilirubin [Mass/Vol] 0.4 mg/dL (0.3-1.2 ) [facility] Comment on above: Note: 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: [employer] (3002) Calcium [Mass/Vol] 10.9 mg/dL High (8.6-10.4 ) [facility] Comment on above: Note: 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: [employer] (3002) Chloride [Moles/Vol] 100 mmol/L (98-107 ) [facility] Comment on above: Note: 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: [employer] (3002) Cholesterol [Mass/Vol] 153 mg/dL (<200 ) [facility] Comment on above: Note: Cholesterol Gu idelines:<200 Ngntqgtxv173-297 Borderline>240 UndesirableResponsible Observer: [employer] (3002) Cholesterol.total /Cholesterol in HDL [Mass ratio] 5.3 {ratio} High (<5 ) [facility] Comment on above: Note: 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: [employer] (3002) CO2 [Moles/Vol] 20 mmol/L (20-31 ) [facility] Comment on above: Note: 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: [employer] (3002) Creatinine [Mass/Vol] 0.95 mg/dL High (0.50-0.90 ) [facility] Comment on above: Note: 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: [employer] (3002) GFR/1.73 sq M.predicted among non-blacks MDRD (S/P/Bld) [Vol rate/Area] mL/min/{1.73_m2} (>60 ) [facility] Comment on above: Note: These results [...] Glucose [Mass/Vol] 259 mg/dL High (70-99 ) [facility] Comment on above: Note: 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: [employer] (3002) Magnesium [Mass/Vol] 29 mg/dL Low (>40 ) [facility] Comment on above: Note: HDL Guidelines :<40 Kibhjbwfwza60-31 Borderline>59 DesirableResponsible Observer: [employer] (3002) Magnesium [Mass/Vol] 60 mg/dL (0-130 ) [facility] Comment on above: Note: LDL Guidelines :<100 Wvsdqmduq098-718 Near to/above Bcbxhpjwc374-421 Borderline>159 UndesirableDirect (measured) LDL and calculated LDL are not interchangeable tests.Responsible Observer: [employer] (3002) Potassium [Moles/Vol] 4.7 mmol/L (3.7-5.3 ) [facility] Comment on above: Note: 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: [employer] (3002) Protein [Mass/Vol] 7.6 g/dL (6.4-8.3 ) [facility] Comment on above: Note: 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: [employer] (3002) Sodium [Moles/Vol] 135 mmol/L (135-144 ) [facility] Comment on above: Note: 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: [employer] (3002) Triglyceride [Mass/Vol] 319 mg/dL High (<150 ) [facility] Comment on above: Note: Triglyceride G uidelines:<150 Zidqtosrp895-331 Cpycfihjet844-461 High>499 Very highBased on AHA Guidelines for fasting triglyceride, February 2012.Responsible Observer: [employer] (3002) Urea nitrogen [Mass/Vol] 33 mg/dL High (8-23 ) [facility] Comment on above: Note: 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: [employer] (3002) Laboratory - Hematology and Cell countson 07-23-2022 Erythrocyte distribution width (RBC) [Ratio] 14.1 % (11.8-14.4 ) [facility] Comment on above: Note: 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: [employer] (1219) Hematocrit (Bld) [Volume fraction] 43.9 % (36.3-47.1 ) [facility] Comment on above: Note: 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: [employer] (1219) Hemoglobin (Bld) [Mass/Vol] 14.3 g/dL (11.9-15.1 ) [facility] Comment on above: Note: 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: [employer] (1219) MCH (RBC) [Entitic mass] 30.5 pg (25.2-33.5 ) [facility] Comment on above: Note: 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: [employer] (1219) MCHC (RBC) [Mass/Vol] 32.6 g/dL (28.4-34.8 ) [facility] Comment on above: Note: 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: [employer] (1219) MCV (RBC) [Entitic vol] 93.6 fL (82.6-102.9 ) [facility] Comment on above: Note: 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: [employer] (1219) RBC (Bld) [#/Vol] 4.69 10*6/uL (3.95-5.11 ) [facility] Comment on above: Note: 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: [employer] (1219) WBC (Bld) [#/Vol] 8.4 10*3/uL (3.5-11.3 ) [facility] Comment on above: Note: 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: [employer] (1219) No Panel Informationon 07-23 Albumin/Glob Ratio 1.3 (1.0-2.5 ) [facility] Comment on above: Note: 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: [employer] (3002) Alkaline Phos 116 U/L High (35-104 ) [facility] above: Note: 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: [employer] (3002) NRBC Automated 0.0 per_100_WBC (0.0 ) [facility] Comment on above: Note: 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: [employer] (1219) Platelet Count See Reflexed IPF Res ult k/uL (138-453 ) [facility] Comment on above: Note: 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: [employer] (1219) Platelet, Fluoresc. 158 k/uL (138-453 ) [facility] Comment on above: Note: ORDERED BY LAB Responsible Observer: [employer] (1219) PLT, Immature Fract. 4.5 % (1.1-10.3 ) [facility] Comment on above: Note: ORDERED BY LAB Responsible Observer: [employer] (1219) Reported Physicians See Note [facility] Comment on above: Note: Reported Physi cians:Ordering: Sparks, Latia OMARAttending: Sparks, NadiraReferring: Sparks, Latia Thyroid Stim. Horm. 1.50 uIU/mL (0.30-5.00 ) [facility] Comment on above: Note: 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: [employer] (3002) Vitamin D 25 OH 92.8 ng/mL (>29.9 ) [facility] Comment on above: Note: Reference Rang e:Vitamin D status RangeDeficiency <20 ng/mLMild Deficiency 20-30 ng/mLSufficiency 30-100 ng/mLToxicity >100 ng/mLResponsible Observer: [employer]EE[employer]OFILE (3003) MICROALB CREAT RATIO RANDOMo n 07-19-2022 mALB 43.8 mg/L Critically high <=30.0 [facility] Comment on above: Performed By: #### M CRR #### [facility] [address] [place] [address] Dr. Shashi Jimenez MALB CR RATIO 326.8 mg/g Critically high 0.0-29.9 [facility] Comment on above: Performed By: #### M CRR #### [facility] [address] [place] [address] Dr. Shashi Jimenez MALB CR RATIO RANGE SEE BELOW Normal [facility] Comment on above: Result Comment: NO M ICROALBUMINURIA 0-29 MG/G CLINICAL MICROALBUMINURIA 30-300 MG/G MACROALBUMINURIA >300 MG/G Performed By: #### M CRR #### [facility] [address] [place] [address] Dr. Shashi Jimenez URINE CREAT 134.02 mg/dL Normal 20.00-300.0 0 [facility] Comment on above: Performed By: #### M CRR #### [facility] [address] [place] [address] Dr. Shashi Jimenez PROF 14(COMP METB)on 023 Albumin [Mass/Vol] 3.8 g/dL Normal 3.4-5.0 [facility] Comment on above: Performed By: #### C MP #### [facility] [address] [place] [address] Dr. Shashi Jimenez Albumin/Globulin [Mass ratio] 1.0 {ratio} Normal [facility] Comment on above: Performed By: #### C MP #### [facility] [address] [place] [address] Dr. Shashi Jimenez ALP [Catalytic activity/Vol] 83 U/L Normal 46-116 [facility] Comment on above: Performed By: #### C MP #### [facility] [address] [place] [address] Dr. Shashi Jimenez ALT [Catalytic activity/Vol] 42 U/L Normal 14-59 [facility] Comment on above: Performed By: #### C MP #### [facility] [address] [place] [address] Dr. Shashi Jimenez Anion gap [Moles/Vol] 14.0 mmol/L Normal [facility] Comment on above: Performed By: #### C MP #### [facility] [address] [place] [address] Dr. Shashi Jimenez AST [Catalytic activity/Vol] 42 U/L Critically high 15-37 [facility] Comment on above: Performed By: #### C MP #### [facility] [address] [place] [address] Dr. Shashi Jimenez Bilirubin [Mass/Vol] 0.4 mg/dL Normal 0.2-1.0 [facility] Comment on above: Performed By: #### C MP #### [facility] [address] [address] [address] Shashi Jimenez Calcium [Mass/Vol] 10.8 mg/dL Critically high 8.5-10.1 [facility] Comment on above: Performed By: #### C MP #### [facility] [address] [place] [address] Dr. Shashi Jimenez Chloride [Moles/Vol] 99 mmol/L Normal 98-107 [facility] Comment on above: Performed By: #### C MP #### [facility] [address] [place] [address] Dr. Shashi Jimenez CO2 [Moles/Vol] 27.0 mmol/L Normal 21.0-32.0 [facility] Comment on above: Performed By: #### C MP #### [facility] [address] [place] [address] Dr. Shashi Jimenez Creatinine [Mass/Vol] 0.92 mg/dL Normal 0.55-1.02 [facility] Comment on above: Performed By: #### C MP #### [facility] [address] [place] [address] Dr. Shashi Jimenez EGFR-AF MONEGASQUE >60 Normal >=60 [facility] Comment on above: Performed By: #### C MP #### [facility] [address] [place] [address] Dr. Shashi Jimenez EGFR-NON AF MONEGASQUE =60 Normal >=60 [facility] Comment on above: Performed By: #### C MP #### [facility] [address] [place] [address] Dr. Shashi Jimenez Globulin (S) [Mass/Vol] 3.9 g/dL Normal [facility] Comment on above: Performed By: #### C MP #### [facility] [address] [address] [address] Shashi Jimenez Glucose [Mass/Vol] 300 mg/dL Critically high 74-106 [facility] Comment on above: Performed By: #### C MP #### [facility] [address] [address] [address] Shashi Jimenez Potassium [Moles/Vol] 4.0 mmol/L Normal 3.5-5.1 [facility] Comment on above: Performed By: #### C MP #### [facility] [address] [address] [address] Shashi Jimenez Protein [Mass/Vol] 7.7 g/dL Normal 6.4-8.2 [facility] Comment on above: Performed By: #### C MP #### [facility] [address] [address] [address] Shashi Jimenez Sodium [Moles/Vol] 136 mmol/L Normal 136-145 [facility] Comment on above: Performed By: #### C MP #### [facility] [address] [address] [address] Shashi Jimenez Urea nitrogen [Mass/Vol] 20.0 mg/dL Critically high 7.0-18.0 [facility] Comment on above: Performed By: #### C MP #### [facility] [address] [address] [address] Shashi Jimenez Urea nitrogen/Creatini ne [Mass ratio] 21.7 mg/mg Normal [facility] Comment on above: Performed By: #### C MP #### [facility] [address] [address] [address] Shashi Jimenez XR ankle LT min 3V*on 2021 XR ankle LT min 3V* [facility] Main [address] [address] XRay Report Signed Patient: Tunde Jack MR#: [id number] : 1950 Acct:[id number] Age/Sex: 71 / F ADM Date: 09/21/21 Loc: XDUCLY Room: Type: REG CLI Attending Dr: Constantine Hernandez MD Ordering Provider: [...] Desiree Garrett M.D.09/21/2021 1:10 PM Dictation Location: [facility]--13 Transcribed By: [facility] 09/21/21 1310 Dictated By: Desiree Garrett II, MD 09/21/21 1308 Signed By: 09/21/21 1346 [facility] XR ankle LT min 3V* [facility] [employer] Other XR ankle LT min 3V* [facility] [employer] [facility] [employer] Other XR ankle LT min 3V* [address] [place] [address] [employer] Other XR ankle LT min 3V* [place] [address] [employer] Other XR ankle LT min 3V* XRay Report [employer] Other XR ankle LT min 3V* Signed [employer] Other XR ankle LT min 3V* Patient: Tunde Jack MR#: [id number] [employer] Other XR ankle LT min 3V* [facility] [employer] Other XR ankle LT min 3V* : 1950 Acct:[id number] [employer] Other XR ankle LT min 3V* Age/Sex: 71 / F ADM Date: 09/21/21 [employer] Other XR ankle LT min 3V* Loc: XDUCLY Room: Type: REG CLI [employer] Other XR ankle LT min 3V* Attending Dr: Constantine Hernandez MD [employer] Other XR ankle LT min 3V* Ordering Provider: Isidra Hernandez APRN [employer] Other XR ankle LT min 3V* Date of Service: 09/21/21 [employer] Other XR ankle LT min 3V* XR/XR ankle LT min 3V*: T14.90XA [employer] Other XR ankle LT min 3V* Copies to: Isidra Hernandez APRN [employer] Other XR ankle LT min 3V* Constantine Hernandez MD [employer] Other XR ankle LT min 3V* XR ankle LT min 3V* 09/21/2021 12:53 PM [employer] Other XR ankle LT min 3V* SIGNS AND SYMPTOMS: Twisting injury to left ankle with pain laterally [employer] Other XR ankle LT min 3V* PROTOCOL: Frontal, lateral, and oblique radiographs of the left ankle [employer] Other XR ankle LT min 3V* COMPARISON: None [employer] Other XR ankle LT min 3V* FINDINGS: [employer] Other XR ankle LT min 3V* The bones are in anatomic alignment. There is no evidence of acute displaced fracture. There is [employer] Other XR ankle LT min 3V* soft tissue swelling which is greatest over the lateral malleolus. The ankle mortise is preserved. [employer] Other XR ankle LT min 3V* Calcifications are noted along the Achilles tendon suspicious for a previous Achilles injury. [employer] Other XR ankle LT min 3V* XR/XR ankle LT min 3V* [employer] Other XR ankle LT min 3V* IMPRESSION: [employer] Other XR ankle LT min 3V* No acute displaced fracture. [employer] Other XR ankle LT min 3V* Diffuse soft tissue swelling greatest over the lateral malleolus. [employer] Other XR ankle LT min 3V* Calcifications are noted along the Achilles tendon suspicious for a previous Achilles injury versus [employer] Other XR ankle LT min 3V* calcific tendinosis. [employer] Other XR ankle LT min 3V* Impression dictated by: Desiree Garrett M.D.09/21/2021 1:10 PM [employer] Other XR ankle LT min 3V* Dictation Location: [place] [address] [employer] Other XR ankle LT min 3V* Transcribed By: MELODY 09/21/21 1310 [employer] Other XR ankle LT min 3V* Dictated By: Desiree Garrett II, MD 09/21/21 1308 [employer] Other XR ankle LT min 3V* Signed By: 09/21/21 1346 [employer] Other ED PROV NOTEon 02-27-2019 ED PROV NOTE HNO ID: [id number] Author: Nargis Raman Service: ? Author Type: Physician Type: ED Provider Notes Filed: 03/01/2019 1:58 AM Note Text: [place] [address] HEALTH INFORMATION MANAGEMENT EMERGENCY DEPARTMENT REPORT Patient: TUNDE JACKNARGIS Simon D.O. [id number] [age] F Status: DEP ER ED [...] By: NARGIS RAMAN D.O. Tests performed at: [address] [address] Normal [facility] EMERGENCY DEPARTMENT REPORTo n 02-27-2019 [place]ERGENC[place] [address] HEALTH INFORMATION MANAGEMENT EMERGENCY DEPARTMENT REPORT Patient: TUNDE JACK NARGIS RAMAN D.O. [id number] [age] F Status: [facility] ED Date of Service: 02/27/19 CHIEF [...] By: NARGIS RAMAN D.O. Tests performed at: [place] [address] Normal [facility] LUMBAR LIMITED 2Von 02-28-20 19 LUMBAR LIMITED 2V [address] [address] Name: TUNDE JACK Phys: NARGIS RAMAN D.O. : [birth year] Age: 68 Sex: F Acct: [id number] Loc: ED Exam Date: 02/27/19 Status: REG ER Radiology No.: [id number] Unit Number: [id number] Exam # Type/Exam [id number] RAD / LUMBAR LIMITED 2V EXAM DESCRIPTION: [...] By: LEAH KIRKPATRICK M.D. Tests performed at: [address] [address] Normal [facility] ED PROV NOTEon 01-23-2019 ED PROV NOTE HNO ID: [id number] Author: Desiree May Service: ? Author Type: Physician Type: ED Provider Notes Filed: 01/28/2019 2:46 PM Note Text: [place] [address] HEALTH INFORMATION MANAGEMENT EMERGENCY DEPARTMENT REPORT Patient: TUNDE JACK DESIREE MAY M.D. [id number] [age] F Status: [facility] ED Date of Service: 01/22/19 CHIEF [...] HISTORY Patient is . She is a ubvi-ytyt-v-day smoker. PAST SURGICAL HISTORY Appendectomy, cholecystectomy, hysterectomy. [...] By: DESIREE MAY M.D. Tests performed at: [address] [address] Normal [facility] EMERGENCY DEPARTMENT REPORTo n 01-23-2019 EMERGENCY [place] [address] HEALTH INFORMATION MANAGEMENT EMERGENCY DEPARTMENT REPORT Patient: TUNDE JACK DESIREE MAY M.D. [id number] [age] F Status: DEP ER ED [...] HISTORY Patient is . She is a rtqk-ztma-r-day smoker. PAST SURGICAL HISTORY Appendectomy, cholecystectomy, hysterectomy. [...] By: DESIREE MAY M.D. Tests performed at: [address] [address] Normal [facility] ABDOMEN MULTIPLE VIEWSon ABDOMEN MULTIPLE VIEWS [address] [address] Name: TUNDE JACK Phys: DESIREE MAY M.D. : [birth year] Age: 68 Sex: F Acct: [id number] Loc: ED Exam Date: 01/22/19 Status: REG ER Radiology No.: [id number] Unit Number: [id number] Exam # Type/Exam [id number] RAD / ABDOMEN MULTIPLE VIEWS XR ABDOMEN [...] By: HUA PLATA M.D. Tests performed at: [address] [address] [facility] BMPon 01-22-2019 Anion gap [Moles/Vol] 16.0 mmol/L Normal 15-22 [facility] Comment on above: Performed By: #### L 100.0350, L100.0030, L100.0010 #### [facility] [address] [place] [address] Calcium [Mass/Vol] 10.5 mg/dL High 8.8-10.2 [facility] Comment on above: Performed By: #### L 100.0350, L100.0030, L100.0010 #### - LABORATORY [address] [place] [address] Chloride [Moles/Vol] 99 mmol/L Normal 98-107 [facility] Comment on above: Performed By: #### L 100.0350, L100.0030, L100.0010 #### - LABORATORY [address] [place] [address] CO2 [Moles/Vol] 26 mmol/L Normal 22-29 [facility] Comment on above: Performed By: #### L 100.0350, L100.0030, L100.0010 #### [facility] [address] [place] [address] Creatinine [Mass/Vol] 0.90 mg/dL Normal 0.50-0.90 [facility] Comment on above: Performed By: #### L 100.0350, L100.0030, L100.0010 #### [facility] [address] [place] [address] eGFR if AFR MARICEL > 60 ml/min/1.73m2 Normal Counts include 234 beds at the [facility] Comment on above: Result Comment: eGFR >= [...] L 100.0350, L100.0030, L100.0010 #### - LABORATORY [address] [place] [address] eGFR nonAFR Maricel > 60 ml/Min/1.73m2 Normal Counts include 234 beds at the [facility] Comment on above: Performed By: #### L 100.0350, L100.0030, L100.0010 #### [facility] [address] [place] [address] Glucose [Mass/Vol] 212 mg/dL High 82-115 [facility] Comment on above: Performed By: #### L 100.0350, L100.0030, L100.0010 #### [facility] [address] [place] [address] Potassium [Moles/Vol] 4.0 mmol/L Normal 3.5-5.0 [facility] Comment on above: Performed By: #### L 100.0350, L100.0030, L100.0010 #### [facility] [address] [place] [address] Sodium [Moles/Vol] 137 mmol/L Normal 135-145 [facility] Comment on above: Performed By: #### L 100.0350, L100.0030, L100.0010 #### [facility] [address] [place] [address] Urea nitrogen [Mass/Vol] 24 mg/dL High 8-23 [facility] Comment on above: Performed By: #### L 100.0350, L100.0030, L100.0010 #### [facility] [address] [place] [address] CBCon 01-22-2019 Basophils (Bld) [#/Vol] 0.00 x10(3) Normal 0.00-0.10 [facility] Comment on above: Performed By: #### L 200.0010 #### [facility] [address] [place] [address] Basophils/100 WBC (Bld) 0.3 % Normal 0.0-1.0 [facility] Comment on above: Performed By: #### L 200.0010 #### [facility] [address] [place] [address] Eosinophils (Bld) [#/Vol] 0.20 x10(3) Normal 0.00-0.54 [facility] Comment on above: Performed By: #### L 200.0010 #### [facility] - [facility] [address] [place] [address] Eosinophils/100 WBC (Bld) 3.0 % Normal 0.5-4.9 [facility] Comment on above: Performed By: #### L 200.0010 #### [facility] - [facility] [address] [place] [address] Erythrocyte distribution width (RBC) [Ratio] 13.7 % Normal 12.5-15.7 [facility] Comment on above: Performed By: #### L 200.0010 #### [facility] [address] [place] [address] Hematocrit (Bld) [Volume fraction] 45.9 % Normal 36.0-48.0 [facility] Comment on above: Performed By: #### L 200.0010 #### [facility] [address] [place] [address] Hemoglobin (Bld) [Mass/Vol] 15.5 g/dL Normal 12.0-16.0 [facility] Comment on above: Performed By: #### L 200.0010 #### [facility] [address] [place] [address] Lymphocytes (Bld) [#/Vol] 1.70 x10(3) Normal 1.00-3.50 [facility] Comment on above: Performed By: #### L 200.0010 #### [facility] [address] [place] [address] Lymphocytes/100 WBC (Bld) 22.1 % Normal 16.0-48.0 [facility] [facility], [facility] Comment on above: Performed By: #### L 200.0010 #### [facility] [address] [place] [address] 05962 MCH (RBC) [Entitic mass] 30.9 pg Normal 28.5-32.9 [facility], [facility] Comment on above: Performed By: #### L 200.0010 #### ML [facility] [address] [place] [address] 07258 MCHC (RBC) [Mass/Vol] 33.8 g/dL Normal 33.0-36.0 [facility] Comment on above: Performed By: #### L 200.0010 #### [facility] - [facility] [address] [place] [address] 83952 MCV (RBC) [Entitic vol] 91.3 fL Normal 80.0-99.0 [facility] Comment on above: Performed By: #### L 200.0010 #### [facility] [address] [place] [address] 12994 Monocytes (Bld) [#/Vol] 0.60 x10(3) Normal 0.30-0.80 [facility] Comment on above: Performed By: #### L 200.0010 #### ML [facility] [address] [place] [address] 61153 Monocytes/100 WBC (Bld) 8.3 % Normal 4.3-11.2 [facility], [facility] Comment on above: Performed By: #### L 200.0010 #### [facility] [address] [place] [address] 98302 Neutrophils (Bld) [#/Vol] 5.10 x10(3) Normal 1.40-6.50 [facility] Comment on above: Performed By: #### L 200.0010 #### ML [facility] [address] [place] [address] 59659 Neutrophils/100 WBC (Bld) 66.3 % Normal 45.0-73.0 [facility] Comment on above: Performed By: #### L 200.0010 #### [facility] [address] [place] [address] 06031 Platelet mean volume (Bld) [Entitic vol] 8.2 fL Normal 7.5-9.5 [facility] Comment on above: Performed By: #### L 200.0010 #### ML [facility] [address] [place] [address] 24742 Platelets (Bld) [#/Vol] 124 X10(3) Low 150-450 [facility] Comment on above: Performed By: #### L 200.0010 #### [facility] [address] [place] [address] 96320 RBC (Bld) [#/Vol] 5.02 x10(6) High 3.30-5.00 [facility] Comment on above: Performed By: #### L 200.0010 #### [facility] [address] [place] [address] 82426 WBC (Bld) [#/Vol] 7.7 x10(3) Normal 4.5-10.0 [facility] Comment on above: Performed By: #### L 200.0010 #### [facility] [address] [place] [address] ABD/PEL W CONTRASTon 09-0 CT ABD/PEL W CONTRAST [address] [address] Name: TUNDE JACK Phys: DESIREE MAY M.D. : 54 Age: 68 Sex: F Acct: [id number] Loc: ED Exam Date: 01/22/19 Status: [facility] Radiology No.: [id number] Unit Number: [id number] Exam # Type/Exam [id number] CT / CT ABD/PEL W CONTRAST CT [...] By: CHI CASTANEDA D.O. Tests performed at: [place] [id number] Normal [facility] HEPATIC PANELon 01-22-2019 A:G RATIO 1.32 Normal 1.1-2.5 [facility] Comment on above: Performed By: #### L 100.0350, L100.0030, L100.0010 #### [facility] [address] [place] [address] 74440 Albumin [Mass/Vol] 4.1 g/dL Normal 3.5-5.2 [facility] Comment on above: Performed By: #### L 100.0350, L100.0030, L100.0010 #### [facility] [address] [place] [address] 74564 ALK. PHOS 79 U/L Normal 35-105 [facility] Comment on above: Performed By: #### L 100.0350, L100.0030, L100.0010 #### [facility] [address] [place] [address] 29812 ALT [Catalytic activity/Vol] 23 U/L Normal 5-33 [facility] Comment on above: Performed By: #### L 100.0350, L100.0030, L100.0010 #### [facility] [address] [place] [address] 43749 AST [Catalytic activity/Vol] 23 U/L Normal 5-32 [facility] Comment on above: Performed By: #### L 100.0350, L100.0030, L100.0010 #### [facility] [address] [place] [address] 06301 Bilirubin Ql (U) 0.3 mg/dL Normal 0.2-1.2 [facility] Comment on above: Performed By: #### L 100.0350, L100.0030, L100.0010 #### [facility] [address] [place] [address] 15289 DIRECT BILIRUBI <0.2 Normal 0.0-0.3 [facility] Comment on above: Performed By: #### L 100.0350, L100.0030, L100.0010 #### [facility] [address] [place] [address] 39463 Globulin (S) [Mass/Vol] 3.1 g/dL Normal 1.5-4.5 [facility] Comment on above: Performed By: #### L 100.0350, L100.0030, L100.0010 #### [facility] [address] [place] [address] 71457 Protein [Mass/Vol] 7.2 g/dL Normal 6.4-8.3 [facility] Comment on above: Performed By: #### L 100.0350, L100.0030, L100.0010 #### [facility] [address] [place] [address] 99069 LIPASEon 01-22-2019 Lipase [Catalytic activity/Vol] 44 U/L Normal 13-60 [facility] Comment on above: Performed By: #### L 100.0350, L100.0030, L100.0010 #### [facility] [address] [place] [address] 21200 URINALYSISon 01-22-2019 Bilirubin Ql (U) Negative Normal NEGATIVE [facility] Comment on above: Order Comment: Urine Specimen Source+ CLEAN CATCH Performed By: #### L 200.3000 #### [facility] [address] [place] [address] 87080 Color (U) YELLOW Normal YELLOW [facility] Comment on above: Order Comment: Urine Specimen Source+ CLEAN CATCH Performed By: #### L 200.3000 #### [facility] [address] [place] [address] 78912 Glucose Ql (U) >=1000 Normal NEGATIVE [facility] Comment on above: Order Comment: Urine Specimen Source+ CLEAN CATCH Performed By: #### L 200.3000 #### [facility] [address] [place] [address] 60655 Hemoglobin Ql (U) TRACE-INTACT Normal NEGATIVE [facility] Comment on above: Order Comment: Urine Specimen Source+ CLEAN CATCH Performed By: #### L 200.3000 #### [facility] [address] [place] [address] 89253 Leukocyte esterase Test strip Ql (U) Negative Normal NEGATIVE [facility] Comment on above: Order Comment: Urine Specimen Source+ CLEAN CATCH Performed By: #### L 200.3000 #### [facility] [address] [place] [address] 32630 Nitrite Ql (U) Negative Normal NEGATIVE [facility] Comment on above: Order Comment: Urine Specimen Source+ CLEAN CATCH Performed By: #### L 200.3000 #### [facility] [address] [place] [address] 33448 pH (U) 5.5 [pH] Normal 5.0-8.0 [facility] Comment on above: Order Comment: Urine Specimen Source+ CLEAN CATCH Performed By: #### L 200.3000 #### [facility] [address] [place] [address] 18828 Protein Ql (U) Negative Normal NEGATIVE [facility] Comment on above: Order Comment: Urine Specimen Source+ CLEAN CATCH Performed By: #### L 200.3000 #### [facility] [address] [place] [address] 62213 URINE APPEARANC CLEAR Normal CLEAR [facility] Comment on above: Order Comment: Urine Specimen Source+ CLEAN CATCH Performed By: #### L 200.3000 #### [facility] [address] [place] [address] 19274 URINE KETONE Negative Normal NEGATIVE [facility] Comment on above: Order Comment: Urine Specimen Source+ CLEAN CATCH Performed By: #### L 200.3000 #### [facility] [address] [place] [address] 35424 URINE SPECIFIC <=1.005 Normal 1.001-1.035 [facility] Comment on above: Order Comment: Urine Specimen Source+ CLEAN CATCH Performed By: #### L 200.3000 #### [facility] [address] [place] [address] 84055 URINE UROBILINO 0.2 EU/DL Normal 0.2-1.0 [facility] Comment on above: Order Comment: Urine Specimen Source+ CLEAN CATCH Performed By: #### L 200.3000 #### [facility] [address] [place] [address] 45128 [id number] 01-15-2019 HbA1c (Bld) [Mass fraction] 7.2 % High 4.3-6.1 [facility] Comment on above: Result Comment: Estimated Average Glucose: HgbA1C % mg/dL 4.0 68 5.0 97 6.0 125 7.0 154 8.0 183 9.0 212 10.0 240 Source: [employer] web site, 2017. Performed By: #### L 200.2000 #### [facility] [address] [place] [address] 37261 LIPID PANELon 01-15-2019 Cholesterol [Mass/Vol] 158 mg/dL Normal 130-200 [facility] Comment on above: Order Comment: ADD O N Performed By: #### L 100.0040 #### [facility] [address] [place] [address] 07457 Cholesterol in HDL [Mass/Vol] 30 mg/dL Normal [facility] Comment on above: Order Comment: ADD [...] #### L 100.0040 #### [facility] [address] [place] [address] 26859 Cholesterol in LDL [Mass/Vol] 55 mg/dL Normal [facility] Comment on above: Order Comment: ADD O N Result Comment: LDL: OPTIMAL FOR PEOPLE AT VERY HIGH RISK <70 OPTIMAL <100 NEAR OPTIMAL 100-129 BORDERLINE HIGH 130-159 HIGH 160-189 VERY HIGH >=190 Source: 2009 NCEP ATP III, ADA Guidelines Reviewed: August, Performed By: #### L 100.0040 #### [facility] [address] [place] [address] 35878 Cholesterol in LDL/Cholesterol in HDL [Mass ratio] 1.8 Normal [facility] Comment on above: Order Comment: ADD O N Performed By: #### L 100.0040 #### [facility] [address] [place] [address] 03846 Cholesterol in VLDL [Mass/Vol] 73 mg/dL High 6-40 [facility] Comment on above: Order Comment: ADD O N Performed By: #### L 100.0040 #### [facility] [address] [place] [address] 25159 Triglyceride [Mass/Vol] 365 mg/dL Normal [facility] Comment on above: Order Comment: ADD O N Result Comment: TRIG : DESIRABLE: <150 mg/dL Performed By: #### L 100.0040 #### [facility] [address] [place] [address] 12958 Hoda 01-14-2019 ALT [Catalytic activity/Vol] 29 U/L Normal -33 [facility] Comment on above: Performed By: #### L 100.0010, L100.0240, L100.0250 #### [facility] [address] [place] [address] 54705 Genesis 01-14-2019 AST [Catalytic activity/Vol] 30 U/L Normal - [facility] Comment on above: Performed By: #### L 100.0010, L100.0240, L100.0250 #### [facility] [address] [place] [address] 37987 BMPon 01-14-2019 Anion gap [Moles/Vol] 16.6 mmol/L Normal - [facility] Comment on above: Performed By: #### L 100.0010, L100.0240, L100.0250 #### [facility] [address] [place] [address] 66298 Calcium [Mass/Vol] 10.3 mg/dL High 8.8-10.2 [facility] Comment on above: Performed By: #### L 100.0010, L100.0240, L100.0250 #### - [facility] [address] [place] [address] 29036 Chloride [Moles/Vol] 98 mmol/L Normal 98-107 [facility] Comment on above: Performed By: #### L 100.0010, L100.0240, L100.0250 #### [facility] [address] [place] [address] 89875 CO2 [Moles/Vol] 28 mmol/L Normal 22-29 [facility] Comment on above: Performed By: #### L 100.0010, L100.0240, L100.0250 #### - [facility] [address] [place] [address] 51482 Creatinine [Mass/Vol] 0.74 mg/dL Normal 0.50-0.90 [facility] Comment on above: Performed By: #### L 100.0010, L100.0240, L100.0250 #### [facility] [address] [place] [address] 92779 eGFR if AFR MARICEL > 60 ml/min/1.73m2 Normal Counts include 234 beds at the [facility] Comment on above: Result Comment: eGFR >= [...] 100.0010, L100.0240, L100.0250 #### [facility] [address] [place] [address] 90915 eGFR nonAFR Maricel > 60 ml/Min/1.73m2 Normal U [facility] Comment on above: Performed By: #### L 100.0010, L100.0240, L100.0250 #### [facility] [address] [place] [address] 72819 Glucose [Mass/Vol] 208 mg/dL High 82-115 [facility] Comment on above: Performed By: #### L 100.0010, L100.0240, L100.0250 #### [facility] [address] [place] [address] 05337 Potassium [Moles/Vol] 4.6 mmol/L Normal 3.5-5.0 [facility] Comment on above: Performed By: #### L 100.0010, L100.0240, L100.0250 #### [facility] [address] [place] [address] 43331 Sodium [Moles/Vol] 138 mmol/L Normal 135-145 [facility] Comment on above: Performed By: #### L 100.0010, L100.0240, L100.0250 #### [facility] [address] [place] [address] 70828 Urea nitrogen [Mass/Vol] 16 mg/dL Normal 8-23 [facility] Comment on above: Performed By: #### L 100.0010, L100.0240, L100.0250 #### [facility] [address] [place] [address] 27799 [facility] 11-12-2018 Anion gap [Moles/Vol] 19.0 mmol/L Normal 15-22 [facility] Comment on above: Performed By: #### L 100.0010 #### [facility] [address] [place] [address] 47704 Calcium [Mass/Vol] 10.0 mg/dL Normal 8.8-10.2 [facility] Comment on above: Performed By: #### L 100.0010 #### [facility] [address] [place] [address] 68070 Chloride [Moles/Vol] 97 mmol/L Low 98-107 [facility] Comment on above: Performed By: #### L 100.0010 #### [facility] [address] [place] [address] 47478 CO2 [Moles/Vol] 26 mmol/L Normal 22-29 [facility] Comment on above: Performed By: #### L 100.0010 #### [facility] [address] [place] [address] 05833 Creatinine [Mass/Vol] 0.98 mg/dL High 0.50-0.90 [facility] Comment on above: Performed By: #### L 100.0010 #### [facility] [address] [place] [address] 86265 eGFR if AFR MARICEL > 60 ml/min/1.73m2 Normal Counts include 234 beds at the [facility] Comment on above: Result Comment: eGFR >= [...] #### L 100.0010 #### [facility] [address] [place] [address] 07395 eGFR nonAFR Maricel 57 Normal [facility] Comment on above: Performed By: #### L 100.0010 #### [facility] [address] [place] [address] 83522 Glucose [Mass/Vol] 171 mg/dL High 82-115 [facility] Comment on above: Performed By: #### L 100.0010 #### [facility] [address] [place] [address] 94420 Potassium [Moles/Vol] 4.0 mmol/L Normal 3.5-5.0 [facility] Comment on above: Performed By: #### L 100.0010 #### [facility] [address] [place] [address] Sodium [Moles/Vol] 138 mmol/L Normal 135-145 [facility] Comment on above: Performed By: #### L 100.0010 #### [facility] [address] [place] [address] Urea nitrogen [Mass/Vol] 22 mg/dL Normal 8-23 [facility] Comment on above: Performed By: #### L 100.0010 #### [facility] [address] [place] [address] [place] [address] PTHon 11-12-2018 PTH 26.5 pg/mL Normal - [facility] Comment on above: Performed By: #### L 304.0135 #### [facility] [address] [place] [address] [place] [address] BMPon 10-16-2018 Anion gap [Moles/Vol] 20.3 mmol/L Normal 15- [facility] Comment on above: Performed By: #### L 100.0010, L304.0470 #### [facility] [address] [place] [address] [place] [address] Calcium [Mass/Vol] 10.9 mg/dL High 8.8-10.2 [facility] Comment on above: Performed By: #### L 100.0010, L304.0470 #### [facility] [address] [place] [address] [place] [address] Chloride [Moles/Vol] 100 mmol/L Normal 98-107 [facility] Comment on above: Performed By: #### L 100.0010, L304.0470 #### [facility] [address] [place] [address] CO2 [Moles/Vol] 27 mmol/L Normal 22-29 [facility] Comment on above: Performed By: #### L 100.0010, L304.0470 #### [facility] [address] [place] [address] [place] [address] Creatinine [Mass/Vol] 1.03 mg/dL High 0.50-0.90 [facility] Comment on above: Performed By: #### L 100.0010, L304.0470 #### [facility] [address] [place] [address] 82990 eGFR if AFR MARICEL > 60 ml/min/1.73m2 Normal Counts include 234 beds at the [facility] Comment on above: Result Comment: eGFR >= [...] L 100.0010, L304.0470 #### [facility] [address] [place] [address] 75779 eGFR nonAFR Maricel 54 Normal [facility] Comment on above: Performed By: #### L 100.0010, L304.0470 #### [facility] [address] [place] [address] 42743 Glucose [Mass/Vol] 186 mg/dL High 82-115 [facility] Comment on above: Performed By: #### L 100.0010, L304.0470 #### [facility] [address] [place] [address] 84109 Potassium [Moles/Vol] 4.3 mmol/L Normal 3.5-5.0 [facility] Comment on above: Performed By: #### L 100.0010, L304.0470 #### [facility] [address] [place] [address] 07884 Sodium [Moles/Vol] 143 mmol/L Normal 135-145 [facility] Comment on above: Performed By: #### L 100.0010, L304.0470 #### [facility] [address] [place] [address] 48530 Urea nitrogen [Mass/Vol] 28 mg/dL High 8-23 [facility] Comment on above: Performed By: #### L 100.0010, L304.0470 #### [facility] [address] [place] [address] 94290 PTHon 10-16-2018 PTH 25.1 pg/mL Normal 15-65 [facility] Comment on above: Performed By: #### L 304.0135 #### [facility] [address] [place] [address] 11822 VITAMIN Don 10-16-2018 VITAMIN D 48.5 ng/mL Normal 30-100 [facility] Comment on above: Performed By: #### L 100.0010, L304.0470 #### [facility] [address] [place] [address] 79800 [employer] [facility] Reporton 2018 [employer] Cytology Report . Pathology ReportsAccession: Collected Date/Time: Received Date/Time: Pathologist:[id number] 05/21/2018 16:06 EST 05/21/2018 18:00 MD JOY FARMER [employer] Cytology ReportSPECIMEN:Specimen Description: Liquid Prep w/ HPVSpecimen: Cervical/EndocervicalScre ening or Diagnostic: ScreeningRELEVANT HISTORY:LMP: not givenSPECIMEN ADEQUACY:SATISFACTORY FOR EVALUATIONENDOCERVICAL/TR ANSFORMATIONAL ZONE COMPONENT PRESENTINTERPRETATION/RES ULTS:NEGATIVE FOR INTRAEPITHELIAL LESION OR MALIGNANCYADJUNCTIVE TESTING:HIGH RISK HPV DNA TESTING ORDERED, REPORT TO FOLLOW UNDER SEPARATE COVERSUGGESTIONS/EDUCATIO NAL NOTES:THIS CASE HAS BEEN REVIEWED FOR 10% Q.C. RESCREENElectronically Signed byPathology report verified by [facility].Screened by: HERLINDA DWElectronically signed by JOY Whalengn-Out Date: 05/27/2018 10:24Performing Lab: [facility], [address] [place] [address] 22468 [facility] DothanDisclaimerThe Pap test is a screening test for cervical cancer. As evidenced by published data, it is subject to both inherent false negative and false positive results. Your patient's results should be interpreted in context with pertinent clinical history including gynecological examination. Normal [facility] ([place]) Comment on above: Performed By: #### G YCR ####[place] [address] HPVon 05-27-2018 HPV Interp Normal See Interp HPVN [facility] ([place]) Comment on above: Order Comment: Order placed by AP_HPV_ORDER rule from [id number] Result Comment: High Risk HPV Typing: NEGATIVEHPV [...] Interp HPVN Performed By: #### H PV ####[place] [address] HPV Source Cervix Normal [facility] ([place]) Comment on above: Order Comment: Order placed by AP_HPV_ORDER rule from [id number] Performed By: #### H PV ####[place] [id number] PROGRESSon 05-17-2018 PROGRESS HNO ID: [id number] Author: Provider [facility] Service: (none) Author Type: Physician Type: Progress Notes Filed: 05/17/2018 12:29 PM Note Text: [facility] [place] [address] FIRST CARE REPORT Patient: TUNDE JACK,CHARLIE-RAIMUNDO MartinezNMiranda [id number] F Status: REG POV FC [...] 1151 Resp 18 05/17 1151 18 05/17 115 Medications Discontinued Scripts Sulfamethoxazole/Tmp* Ds 800/160 (Bactrim* [...] Former cigarette smoker 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 o Call or return to [facility] if you experience problems relating to your [...] were understood. Report to the [facility] Emergency Department if any further problems occur. [...] By: SEE SAM F.N.PSarah Signed By: SEE SAM.N.PSarah Tests performed at: [place] [id number] Normal [facility] STRP SCNon 05-17-2018 STRP SCN Performed at: [facility] [address] [place] [id number] STREP SCREEN NEGATIVE - CULTURE TO FOLLOW REFERENCE RANGE NORMAL RESULT IS NEGATIVE. Normal [facility] THTon 05-17-2018 THT ORGANISM 1: NO GROUP A BETA STREP ISOLATED Normal [facility] Comment on above: Performed By: #### M 130.0700 #### [facility] [address] [place] [address] 43794 SURGICAL PATHOLOGY, CONVERTE Don 04-21-2014 [facility] Vital Signs Date Time Vital Sign Value Performing Clinician Facility 06-04-2023 10:37-0500 Body height 162.56 cm Latia Sparks PULL OVER Work Phone: [facility] Work Phone: 06-04-2023 10:37-0500 Body mass index (BMI) [Ratio] 35.4 kg/m2 Latia Sparks PULL OVER Work Phone: [facility] Work Phone: 06-04-2023 10:37-0500 Body surface area Derived from formula 2 m2 Latia Sparks PULL OVER Work Phone: [facility] Work Phone: 06-04-2023 10:37-0500 Body weight 93.44 kg Latia Sparks PULL OVER Work Phone: [facility] Work Phone: 06-04-2023 10:37-0500 Diastolic blood pressure 80 mm[Hg] Latia Sparks PULL OVER Work Phone: [facility] Work Phone: 06-04-2023 10:37-0500 Heart rate 96 /min Latia Sparks PULL OVER Work Phone: [facility] Work Phone: 06-04-2023 10:37-0500 Inhaled oxygen concentration 21 % Latia Sparsk PULL OVER Work Phone: [facility] Work Phone: 06-04-2023 10:37-0500 Inhaled oxygen flow rate 0 L/min Latia Sparks PULL OVER Work Phone: [facility] Work Phone: 06-04-2023 10:37-0500 SaO2% (BldA) [Mass fraction] 98 % Latia Sparks PULL OVER Work Phone: [facility] Work Phone: 06-04-2023 10:37-0500 Systolic blood pressure 138 mm[Hg] Latia Sparks PULL OVER Work Phone: [facility] Work Phone: 05-10-2023 10:03-0500 Body height 162.56 cm Latia Sparks PULL OVER Work Phone: [facility] Work Phone: 05-10-2023 10:03-0500 Body mass index (BMI) [Ratio] 35.7 kg/m2 Latia Sparks PULL OVER Work Phone: [facility] Work Phone: 05-10-2023 10:03-0500 Body surface area Derived from formula 2 m2 Latia Sparks PULL OVER Work Phone: [facility] Work Phone: 05-10-2023 10:03-0500 Body temperature 97.8 [degF] Latia Sparks PULL OVER Work Phone: [facility] Work Phone: 05-10-2023 10:03-0500 Body weight 94.26 kg Latia Sparks PULL OVER Work Phone: [facility] Work Phone: 05-10-2023 10:03-0500 Diastolic blood pressure 76 mm[Hg] Latia Sparks PULL OVER Work Phone: [facility] Work Phone: 05-10-2023 10:03-0500 Heart rate 103 /min Latia Sparks PULL OVER Work Phone: [facility] Work Phone: 05-10-2023 10:03-0500 Inhaled oxygen concentration 21 % Latia Sparks PULL OVER Work Phone: [facility] Work Phone: 05-10-2023 10:03-0500 Inhaled oxygen flow rate 0 L/min Latia Sparks PULL OVER Work Phone: [facility] Work Phone: 05-10-2023 10:03-0500 SaO2% (BldA) [Mass fraction] 96 % Latia Sparks PULL OVER Work Phone: [facility] Work Phone: 05-10-2023 10:03-0500 Systolic blood pressure 133 mm[Hg] Latia Sparks PULL OVER Work Phone: [facility] Work Phone: 05-09-2023 13:36-0500 Body height 162.6 cm [facility] [employer] [facility] 05-09-2023 13:36-0500 Body mass index (BMI) [Ratio] 35.36 kg/m2 [facility] [employer] [facility] 05-09-2023 13:36-0500 Body weight 93.44 kg [facility] [employer] [facility] 04-18-2023 14:10-0500 Body height 162.56 cm Latia Sparks PULL OVER Work Phone: [facility] Work Phone: 04-18-2023 14:10-0500 Body mass index (BMI) [Ratio] 35.7 kg/m2 Latia Sparks PULL OVER Work Phone: [facility] Work Phone: 04-18-2023 14:10-0500 Body surface area Derived from formula 2 m2 Latia Sparks PULL OVER Work Phone: [facility] Work Phone: 04-18-2023 14:10-0500 Body temperature 97.8 [degF] Latia Sparks PULL OVER Work Phone: [facility] Work Phone: 04-18-2023 14:10-0500 Body weight 94.35 kg Latia Sparks PULL OVER Work Phone: [facility] Work Phone: 04-18-2023 14:10-0500 Diastolic blood pressure 80 mm[Hg] Latia Sparks PULL OVER Work Phone: [facility] Work Phone: 04-18-2023 14:10-0500 Heart rate 96 /min Latia Sparks PULL OVER Work Phone: [facility] Work Phone: 04-18-2023 14:10-0500 Inhaled oxygen concentration 21 % Latia Sparks PULL OVER Work Phone: [facility] Work Phone: 04-18-2023 14:10-0500 Inhaled oxygen flow rate 0 L/min Latia Sparks PULL OVER Work Phone: [facility] Work Phone: 04-18-2023 14:10-0500 Respiratory rate 18 /min Latia Sparks PULL OVER Work Phone: [facility] Work Phone: 04-18-2023 14:10-0500 SaO2% (BldA) [Mass fraction] 96 % Latia Sparks PULL OVER Work Phone: [facility] Work Phone: 04-18-2023 14:10-0500 Systolic blood pressure 138 mm[Hg] Latia Sparks PULL OVER Work Phone: [facility] Work Phone: 11-15-2022 14:24-0400 Diastolic blood pressure 82 mm[Hg] Latia Sparks PULL OVER Work Phone: [facility] Work Phone: 11-15-2022 14:24-0400 Systolic blood pressure 142 mm[Hg] Latia Sparks PULL OVER Work Phone: [facility] Work Phone: 11-15-2022 14:17-0400 Body height 162.56 cm Latia Sparks PULL OVER Work Phone: [facility] Work Phone: 11-15-2022 14:17-0400 Body mass index (BMI) [Ratio] 37.4 kg/m2 Latia Sparks PULL OVER Work Phone: [facility] Work Phone: 11-15-2022 14:17-0400 Body surface area Derived from formula 2 m2 Latia Sparks PULL OVER Work Phone: [facility] Work Phone: 11-15-2022 14:17-0400 Body weight 98.88 kg Latia Sparks PULL OVER Work Phone: [facility] Work Phone: 11-15-2022 14:17-0400 Diastolic blood pressure 78 mm[Hg] Latia Sparks PULL OVER Work Phone: [facility] Work Phone: 11-15-2022 14:17-0400 Heart rate 94 /min Latia Sparks PULL OVER Work Phone: [facility] Work Phone: 11-15-2022 14:17-0400 SaO2% (BldA) [Mass fraction] 93 % Latia Sparks PULL OVER Work Phone: [facility] Work Phone: 11-15-2022 14:17-0400 Systolic blood pressure 143 mm[Hg] Latia Sparks PULL OVER Work Phone: [facility] Work Phone: 08-02-2022 10:15-0400 Body height 162.56 cm Latia Sparks PULL OVER Work Phone: [facility] Work Phone: 08-02-2022 10:15-0400 Body mass index (BMI) [Ratio] 36.7 kg/m2 Latia Sparks PULL OVER Work Phone: [facility] Work Phone: 08-02-2022 10:15-0400 Body surface area Derived from formula 2 m2 Latia Sparks PULL OVER Work Phone: [facility] Work Phone: 08-02-2022 10:15-0400 Body temperature 98.5 [degF] Latia Sparks PULL OVER Work Phone: [facility] Work Phone: 08-02-2022 10:15-0400 Body weight 97.07 kg Latia Sparks PULL OVER Work Phone: [facility] Work Phone: 08-02-2022 10:15-0400 Diastolic blood pressure 82 mm[Hg] Latia Sparks PULL OVER Work Phone: [facility] Work Phone: 08-02-2022 10:15-0400 Heart rate 98 /min Latia Sparks PULL OVER Work Phone: [facility] Work Phone: 08-02-2022 10:15-0400 Heart Rate Rhythm 1 1 Latia Sparks PULL OVER Work Phone: [facility] Work Phone: 08-02-2022 10:15-0400 Inhaled oxygen concentration 21 % Latia Sparks PULL OVER Work Phone: [facility] Work Phone: 08-02-2022 10:15-0400 Inhaled oxygen flow rate 0 L/min Latia Sparks PULL OVER Work Phone: [facility] Work Phone: 08-02-2022 10:15-0400 Respiratory rate 18 /min Latia Sparks PULL OVER Work Phone: [facility] Work Phone: 08-02-2022 10:15-0400 SaO2% (BldA) [Mass fraction] 96 % Latia Sparks PULL OVER Work Phone: [facility] Work Phone: 08-02-2022 10:15-0400 Systolic blood pressure 138 mm[Hg] Latia Sparks PULL OVER Work Phone: [facility] Work Phone: 07-23-2022 13:38-0500 Diastolic blood pressure 78 mm[Hg] Latia Sparks PULL OVER Work Phone: [facility] Work Phone: 07-23-2022 13:38-0500 Systolic blood pressure 142 mm[Hg] Latia Sparks PULL OVER Work Phone: [facility] Work Phone: 07-23-2022 12:13-0500 Body height 162.56 cm Latia Sparks PULL OVER Work Phone: [facility] Work Phone: 07-23-2022 12:13-0500 Body mass index (BMI) [Ratio] 36 kg/m2 Latia Sparks PULL OVER Work Phone: [facility] Work Phone: 07-23-2022 12:13-0500 Body surface area Derived from formula 2 m2 Latia Sparks PULL OVER Work Phone: [facility] Work Phone: 07-23-2022 12:13-0500 Body temperature 98.3 [degF] Latia Sparks PULL OVER Work Phone: [facility] Work Phone: 07-23-2022 12:13-0500 Body weight 95.26 kg Latia Sparks PULL OVER Work Phone: [facility] Work Phone: 07-23-2022 12:13-0500 Diastolic blood pressure 92 mm[Hg] Latia Sparks PULL OVER Work Phone: [facility] Work Phone: 07-23-2022 12:13-0500 Heart rate 118 /min Latia Sparks PULL OVER Work Phone: [facility] Work Phone: 07-23-2022 12:13-0500 Heart Rate Rhythm 1 1 Latia Sparks PULL OVER Work Phone: [facility] Work Phone: 07-23-2022 12:13-0500 Inhaled oxygen concentration 21 % Latia Sparks PULL OVER Work Phone: [facility] Work Phone: 07-23-2022 12:13-0500 Inhaled oxygen flow rate 0 L/min Latianova Hoffmanim PULL OVER Work Phone: [facility] Work Phone: 07-23-2022 12:13-0500 Respiratory rate 21 /min Latia Sparks PULL OVER Work Phone: [facility] Work Phone: 07-23-2022 12:13-0500 SaO2% (BldA) [Mass fraction] 96 % Latia Sparks PULL OVER Work Phone: [facility] Work Phone: 07-23-2022 12:13-0500 Systolic blood pressure 168 mm[Hg] Latia Sparks PULL OVER Work Phone: [facility] Work Phone: 09-21-2021 13:25-0400 Body height 162.56 cm Isidra Hernandez Other [facility] Other 09-21-2021 13:25-0400 Body mass index (BMI) [Ratio] 37.24 kg/m2 Isidra Hernandez Other [facility] Other 09-21-2021 13:25-0400 Body temperature 97.9 [degF] Isidra Hernandez Other [facility] Other 09-21-2021 13:25-0400 Body weight 98.43 kg Isidra Hernandez Other [facility] Other 09-21-2021 13:25-0400 Diastolic blood pressure 68 mm[Hg] Isidra Hernandez Other [facility] Other 09-21-2021 13:25-0400 Respiratory rate 20 /min Isidra Hernandez Other [facility] Other 09-21-2021 13:25-0400 SaO2% (BldA) [Mass fraction] 96 % Isidra Hernandez Other [facility] Other 09-21-2021 13:25-0400 Systolic blood pressure 146 mm[Hg] Isidra Hernandez Other [facility] Other Encounters Encounter Date Encounter Type Care Provider Facility Start: 06-04-2023 End: 06-04-2023 FQHC visit, estab pt Latia Sparks PULL OVER Work Phone: [facility] Work Phone: Start: 05-27-2023 End: 05-28-2023 ambulatory EJ Simon [facility] Not Available Start: 05-17-2023 End: 05-17-2023 Evaluation and management of inpatient [facility] Start: 05-16-2023 End: 05-17-2023 Evaluation and management of inpatient [facility] Start: 05-16-2023 End: 05-16-2023 Evaluation and management of inpatient [facility] Start: 05-10-2023 End: 05-11-2023 ambulatory [facility] Start: 05-10-2023 End: 05-10-2023 Admission to same day surgery center Latia Hoffmanim PULL OVER Work Phone: [facility] Work Phone: Start: 05-10-2023 End: 05-10-2023 FQHC visit, estab pt Latia Hoffmanim PULL OVER Work Phone: [facility] Work Phone: Start: 05-09-2023 Encounter for other preprocedural examination [facility] Start: 05-09-2023 End: 05-09-2023 Patient encounter procedure [facility] Pre-Admission Testing 2 [facility] - Pre Admit Comment on above: Preop examination (P rimary Dx); Type 2 diabetes mellitus without complication, without long-term current use of insulin ([facility]); Hypertension, unspecified type Start: 05-09-2023 End: 05-09-2023 Preprocedural examination done Pm 2 [facility] Start: 05-09-2023 End: 05-13-2023 ambulatory [facility] Start: 05-07-2023 End: 05-07-2023 ambulatory [facility] Not Available Start: 04-18-2023 End: 04-18-2023 FQHC visit, estab pt 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 Work Phone: [facility] Work Phone: Start: 04-18-2023 End: 04-18-2023 FQHC visit, estab pt Latia Sparks PULL OVER Work Phone: [facility] Work Phone: Start: 11-15-2022 End: 11-15-2022 FQHC visit, estab pt Latia Sparks PULL OVER Work Phone: [facility] Work Phone: Start: 11-15-2022 End: 11-15-2022 General Latia Sparsk PULL OVER Work Phone: [facility] Work Phone: Start: 11-09-2022 End: 11-10-2022 ambulatory LATIA SPARKS [facility] Start: 11-08-2022 End: 11-08-2022 FQHC visit, estab pt 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 Facility:[facility] Start: 08-28-2022 End: 08-29-2022 ambulatory NARENDRANATH LAKSHMIPATHY . Facility:[facility] Start: 08-14-2022 End: 08-14-2022 ambulatory NARENDRANATH LAKSHMIPATHY . Facility:[facility] Start: 08-02-2022 End: 08-02-2022 FQHC visit, estab pt Latia Sparks PULL OVER Work Phone: [facility] Work Phone: Start: 07-27-2022 End: 07-28-2022 ambulatory GERALDO PRADO Facility:[facility] Start: 07-23-2022 End: 07-23-2022 FQHC visit, estab pt Cinthia PARRISH Work Phone: [facility] Work Phone: Start: 07-23-2022 End: 07-23-2022 Adult health examination Latia Bridger PULL OVER Work Phone: [facility] Work Phone: Start: 07-23-2022 End: 07-23-2022 Encounter for preprocedural laboratory examination Latia Sparks PULL OVER Work Phone: [facility] Work Phone: Start: 07-23-2022 End: 07-23-2022 FQ visit new patient Latia GREENP Work Phone: [facility] Work Phone: Start: 07-23-2022 End: 07-24-2022 ambulatory LATIA SPARKS [facility] Start: 07-23-2022 End: 07-24-2022 Encounter for general adult medical examination without abnormal findings LATIA SPARKS [facility] Start: 07-23-2022 End: 07-23-2022 Subsequent hospital visit by physician JANINE HUMPHRIES [employer] [facility] Start: 07-19-2022 End: 07-20-[address] DOCTOR WILSON Facility:[facility] Start: 07-18-2022 End: 07-18-[address] DOCTOR WILSON Facility:[facility] Start: 07-17-2022 End: 07-18-2022 ambulatory GERALDO PRADO Facility:[facility] Start: 07-12-2022 ambulatory Latia GREENP [facility] Start: 09-21-2021 End: 09-21-2021 ambulatory Isidra Hernandez Other [facility] Other Start: 09-21-2021 Office outpatient ne w 20 minutes Isidra Hernandez [facility] Start: 09-21-2021 End: 09-21-2021 Patient encounter procedure MD Constantine Hernandez Work Phone: [facility] Start: 05-21-2018 End: 05-26-2018 Patient encounter procedure STIVEN ANDINO Facility:[facility] Ob[facility] Start: 01-08-2018 Patient encounter Mora Barcenas [facility] Start: 04-21-2014 Documentation procedure Aram Esquivel MD Work Phone: [facility] Start: 04-21-2014 Historic EMR Aram soto MD Work Phone: [facility] Procedures Date Procedure Procedure Detail Performing Clinician Start: 06-04-2023 Current tobacco smoker Latia Sparks FN P Work Phone: Start: 06-04-2023 Most recent diastolic blood pressure < 80 mm hg Latia Sparks PULL OVER Work Phone: Start: 06-04-2023 Most recent systolic blood press 130-139mm hg Latia Sparks PULL OVER Work Phone: Start: 06-04-2023 Orthopedic Surgery Back 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 Work Phone: Start: 06-04-2023 Pt scrnd tobacco use rcvd tobacco cessation talk Latia Sparks PULL OVER Work Phone: Start: 05-10-2023 Current tobacco smoker Latia Sparks FN P Work Phone: Start: 05-10-2023 FQ visit, estab pt Latia Sparks PULL OVER Work Phone: Start: 05-10-2023 Most recent diastolic blood pressure < 80 mm hg Latia Sparks PULL OVER Work Phone: Start: 05-10-2023 Most recent systolic blood press 130-139mm hg Latia Sparks PULL OVER Work Phone: Start: 05-10-2023 Pt scrnd tobacco use rcvd tobacco cessation talk Latia Sparks PULL OVER Work Phone: Start: 04-18-2023 Current tobacco smoker Latia Sparks FN P Work Phone: Start: 04-18-2023 [facility] visit, MH estab pt Janina HAMMER SW-S Work Phone: Start: 04-18-2023 Gluc bld gluc mntr dev cleared fda spec home use Latia Sparks PULL OVER Work Phone: Start: 04-18-2023 Most recent diastolic blood pressure 80-89 mm hg Latia Sparks PULL OVER Work Phone: Start: 04-18-2023 Most recent hg a1c>equal to 7.0%&<8.0% Latia Sparks PULL OVER Work Phone: Start: 04-18-2023 Most recent systolic blood press 130-139mm hg Latia Sparks PULL OVER Work Phone: Start: 04-18-2023 Psychotherapy w/patient 30 minutes 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 Work Phone: Start: 04-18-2023 Pt scrnd tobacco use rcvd tobacco cessation talk Latia Sparks PULL OVER Work Phone: Start: 11-15-2022 FQ visit, estab pt Latia Sparks PULL OVER Work Phone: Start: 11-15-2022 Most recent diastolic blood pressure 80-89 mm hg Latia Sparks PULL OVER Work Phone: Start: 11-15-2022 Most recent systolic blood pres>/equal 140 mm hg Latia Sparks PULL OVER Work Phone: Start: 11-08-2022 Collection venous blood venipuncture Latia Sparks PULL OVER Work Phone: Start: 11-08-2022 FQ visit, MH estab pt Janina Meghan LI SW-S Work Phone: Start: 11-08-2022 Psychotherapy w/patient 30 minutes 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 Work Phone: Start: 08-02-2022 Counseling Visit For: Consulting For Explanation of Examination Or Test Findings Latia Sparks PULL OVER Work Phone: Start: 08-02-2022 FQ visit, estab pt Latia Sparks PULL OVER Work Phone: Start: 08-02-2022 Most recent diastolic blood pressure 80-89 mm hg Latia Sparks PULL OVER Work Phone: Start: 08-02-2022 Most recent systolic blood press 130-139mm hg Latia Sparks PULL OVER Work Phone: Start: 07-23-2022 Cholecystectomy Latia Sparks PULL OVER Work Phone: Start: 07-23-2022 Collection venous blood venipuncture Latia Sparks PULL OVER Work Phone: Start: 07-23-2022 HC visit, MH estab pt Cinthia WOODSON W-S Work Phone: Start: 07-23-2022 Hysterectomy Latia Sparks PULL OVER Work Phone: Start: 07-23-2022 Ligation of fallopian tube Laita Ibrahi m PULL OVER Work Phone: Start: 07-23-2022 Most recent diastol blood pres >/equal 90 mm hg Latia Sparks PULL OVER Work Phone: Start: 07-23-2022 Most recent hg a1c>equal to 8.0%& Latia Sparks PULL OVER Work Phone: Start: 07-23-2022 Most recent systolic blood pressure <130 mm hg Latia Sparks PULL OVER Work Phone: Start: 07-23-2022 Pt-focused hlth risk assmt score doc stnd instrm Latia Sparks PULL OVER Work Phone: Start: 07-23-2022 Urine albumin semiquantitative Latia Sparks PULL OVER Work Phone: Start: 07-23-2022 Hemoglobin glycosylated a1c Latia Ibrah im PULL OVER Work Phone: Start: 07-23-2022 Hepatitis c antibody Latia Sparks PULL OVER Work Phone: Start: 07-23-2022 IMMATURE PLATELET FRACTION Latia Ibrahi 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 Work Phone: Start: 09-21-2021 X-ray of left [...] Treatment Date Care Activity Detail Author Start: 05-09-2024 Adult BMI Screening Adult BMI Screen ing [facility] Start: 05-09-2024 Tobacco Screening Tobacco Screening [facility] Start: 09-04-2023 FQHC visit, estab pt Medical E stablished Patient [facility] Work Phone: Start: 07-18-2023 FQHC visit, estab pt Medical E stablished Patient [facility] Work Phone: Start: 06-05-2023 Dental Comp Exam [facility] Work Phone: Start: 06-04-2023 FQHC visit, estab pt Medical E stablished Patient [facility] Work Phone: Start: 06-04-2023 End: 06-04-2023 Patient education based on identified need [facility] Start: 05-16-2023 End: 05-16-2023 Admission to same day surgery center 05/16/2023 2:00 PM EST - 05/16/2023 3:15 PM EST Surgery [facility] [address] [place] [address] Hardy Jay, DO [address] [facility] [address] [place] [address] BALLOON KYPHOPLASTY SPINE [12880 (CPT )] [facility] Comment on above: BALLOON KYPHOPLASTY SPINE [42847 (CPT )] Start: 05-16-2023 End: 05-16-2023 Perq vert agmntj cavity crtj uni/bi cannulation BALLOON KYPHOPLASTY SPINE copression fracture L2 05/16/2023 2:00 PM EST [facility] Start: 05-16-2023 Subsequent hospital visit by physician 05/16/2023 2:00 PM EST Hospital Encounter [facility] [address] [place] [address] Hardy Jay, DO [address] [facility] [address] [place] [address] [facility] Start: 05-10-2023 End: 05-10-2023 Patient education based on identified need [facility] Start: 04-18-2023 End: 04-18-2023 Patient education based on identified need [facility] offered active and supportive listening, validated emotions and feelings, and processed current stressors with being in the hospital. ~BHP encouraged patient to utilize positive supports and coping skills. ~ [facility] Start: 04-18-2023 End: 04-18-2023 Patient education based on identified need [facility] Start: 01-18-2023 Influenza vaccination Influenza Vacc ine [facility] Start: 11-15-2022 End: 11-15-2022 Patient education based on identified need [facility] Start: 11-15-2022 Lipid 1996 panel - Serum or Plasma [facility] Start: 11-08-2022 End: 11-08-2022 Patient education based on identified need [facility] encouraged patient to utilize positive supports and coping skills. ~P encouraged patient to contact [facility] if they need any additional support or resources. ~ [facility] Start: 11-01-2022 FQHC visit, estab pt Medical E stablished Patient [facility] Work Phone: Start: 10-18-2022 ambulatory Ambulatory Facility:[facility] Start: 08-02-2022 FQHC visit, estab pt Medical E stablished Patient [facility] Work Phone: Start: 08-02-2022 End: 08-02-2022 Patient education based on identified need [facility] Start: 08-02-2022 End: 08-02-2022 Provider instructions for treatment Intervention and counseling on cessation of tobacco use, 3-10 minutes Discussed medication and nicotine replacement for tobacco cessation [facility] Start: 07-30-2022 CBC panel - Blood by Automated count [facility] Start: 07-30-2022 Lipid 1996 panel - Serum or Plasma LIPID PROFILE [facility] Start: 07-23-2022 End: 07-23-2022 Patient education based on identified need [facility] Start: 07-23-2022 End: 07-23-2022 Provider instructions for treatment Intervention and counseling on cessation of tobacco use, 3-10 minutes Discussed medication and nicotine replacement for tobacco cessation [facility] Start: 12-18-2021 Influenza vaccination Flu vaccine (# 1) [facility] Start: 2017 Fall Risk Screening Fall Risk Screen ing [facility] Start: 1971 DTaP,Tdap and Td Vaccines (1 - Tdap) DTaP,Tdap and Td Vaccines (1 - Tdap) [facility] Start: 1971 DTaP/Tdap/Td vaccine (1 - Tdap) DTaP/Tdap/Td vaccine (1 - Tdap) [facility] Start: 1970 Adult BMI Follow Up Plan Adult BMI Follow Up Plan [facility] Start: 1970 Diabetic foot examination Diabetic Foot Exam [facility] Start: 1964 Depression Screening Depression Scre ening [facility] Start: 1952 COVID-19 Vaccine (#1) COVID-19 Vacci ne (#1) [facility] Start: 1952 Glaucoma screening Diabetic Op hthalmology Exam [facility] Start: 1952 Medicare Annual Wellness Visit Medicare Annual Wellness Visit [facility] Start: 1952 Tobacco Counseling Tobacco Counselin g [facility] Immunizations Immunization Date Immunization Notes Care Provider Asiya tolbert 02-14-2017 influenza virus vacc ine, unspecified formulation [facility] 2 [facility] Payers Date Payer Category Payer Medicare 2019 [place] [id number] 2019-Present [phone] [address] [place] [address] [id number] 2018 Medicare [id number] 2014 Private Health Insurance [id number] 2014 Unknown [id number] 1959 Medicaid [id number] 1952 Unknown [id number] 2.16.840.1.504444.3.579.2. 627 1952 Unknown [id number] 2.16.840.1.754805.3.579.2. 593 1952 Unknown [id number] 2.16.840.1.727394.3.579.2. 593 1952 Unknown [id number] 2.16.840.1.845171.3.579.2. 593 1952 Unknown [id number] 2.16.840.1.975280.3.579.2. 593 1952 Unknown [id number] 2.16.840.1.103308.3.579.2. 593 1952 Unknown [id number] 2.16.840.1.058849.3.579.2. 593 1952 Unknown [id number] 2.16.840.1.390068.3.579.2. 593 1952 Unknown [id number] 2.16.840.1.036326.3.579.2. 593 1952 Unknown [id number] 2.16.840.1.216420.3.579.2. 593 1952 Unknown [id number] 2.16.840.1.143667.3.579.2. 175 1952 Unknown [id number] 2.16.840.1.226048.3.579.2. 175 1952 Unknown [id number] 2.16.840.1.187546.3.579.2. 1286 1952 Unknown [id number] 2.16.840.1.719140.3.579.2. 1286 1952 Unknown [id number] 2.16.840.1.043246.3.579.2. 1286 1952 Unknown [id number] 2.16.840.1.709285.3.579.2. 1286 1952 Unknown [id number] 2.16.840.1.038846.3.579.2. 1286 1952 Unknown [id number] 1950 Unknown [id number] 1286 1950 Unknown [id number] 1286 1950 Unknown [id number] 1286 1950 Unknown [id number] 1259 1950 Unknown [id number]. 1259 1950 Unknown [id number] 1259 Self-pay Unknown [facility] [id number] Social History Date Type Detail Facility Start: 1950 Sex Assigned At [facility] Start: 10-29-2019 End: 06-30-2020 Sex Assigned At [facility] Other Assertion Currently not se xually active (finding) [facility] Assertion Cigarette smoker (finding) [facility] Assertion Smoker (finding) [facility] Assertion Moderate cigaret te smoker (10-19 cigs/day) (finding) [facility] Assertion Exposure to poll ution (event) [facility] Assertion Gender identity finding (finding) [facility] Assertion Finding of sexua l orientation (finding) [facility] Tobacco smoking status Unknown if ever smoked [facility] Assertion History of disor vivian (situation) [facility] Assertion Emotional stress (finding) [facility] Assertion Finding of resid ence and accommodation circumstances (finding) [facility] Assertion Light cigarette smoker (1-9 cigs/day) (finding) [facility] Start: 1950 Sex Assigned At Not on file [employer] Work Phone: Start: 05-09-2023 Tobacco smoking status NHIS Smokes tobacco daily [facility] Start: 06-30-2020 End: 05-09-2023 Cigarettes smoked current (pack per day) - [facility] Start: 05-09-2023 Tobacco use and exposure Smokeless tobacco non-user [facility] Start: 05-09-2023 Alcohol intake Lifetime non-d aurora (finding) [facility] How often to you have a drink containing alcohol? Never [facility] [facility] Average Number of Drinks Not on file [facility] Start: 05-09-2023 Tobacco Comment 4 cigarettes per day [facility] NEGATED: Highlighted row - - [facility] Work Phone: NEGATED: Highlighted row Assertion Current drinker of alcohol (finding) [facility] NEGATED: Highlighted row Assertion Finding relating to drug misuse behavior (finding) [facility] NEGATED: Highlighted row Assertion [facility] NEGATED: Highlighted row Assertion Sexually active (finding) [facility] NEGATED: Highlighted row Assertion Exposure to pollution (event) [facility] Medical Equipment Procedure Code Equipment Code Equipment Origin al Text Equipment Identifier Dates BD Pen Needle Na no 2nd Gen 32G X 4 MM Miscellaneous [id number] Start: 07-23-2022 End: 08-02-2022 BD Pen Needle Na no 2nd Gen 32G X 4 MM Miscellaneous [id number] Start: 08-28-2022 BD Pen Needle Na no 2nd Gen 32G X 4 MM Miscellaneous [id number] Start: 08-22-2022 End: 08-02-2022 Functional Status Date Assessment Result Facility NEGATED: Highlighted row Functional performance Functional status health issues are not documented Disease [facility] Work Phone: Mental Status Date Assessment Result Facility Cognitive function Moderate recu rrent major depression Moderate recurrent major depression (disorder) [facility] Work Phone: NEGATED: Highlighted row Cognitive function [Interpretation] Cognitive status health issues are not documented Disease [facility] Work Phone: Clinical Notes 09-21-2021 to 06-04-2023 Note Date & Type Note Facility 06-04-2023 Instructions Includes: Instructions for all patient encounters Intervention and counseling on cessation of tobacco use, 3-10 minutes Discussed medication and nicotine replacement for tobacco cessation Last Documented On 3 1:05PM ; [facility] Intervention and counseling on cessation of tobacco use, 3-10 minutes Discussed medication and nicotine replacement for tobacco cessation Last Documented On 3 1:02PM ; [facility] Intervention and counseling on cessation of tobacco use, 3-10 minutes Discussed medication and nicotine replacement for tobacco cessation Last Documented On 3 1:13PM ; [facility] Education and Decision Aids were provided during visit for: Discussed nutritional needs 35.4 teach healthy choices including fruits and vegetables Last Documented On 4 10:44AM ; [facility] Patient education about a pr oper diet Last Documented On 4 10:44AM ; [facility] Patient education about phys ical activity benefits Last Documented On 4 11:51AM ; [facility] Patient education about ment al health Last Documented On 4 11:51AM ; [facility] Patient education about diab etes Take your medications every day, even if you feel good. ~Check your blood sugar ____ times per day and write it on your log. ~Limit the amount of pastas, breads, cookies, candies, cakes and soda so your sugar is better controlled Last Documented On 4 11:51AM ; [facility] Patient education about nasa l irrigation Last Documented On 4 11:51AM ; [facility] Discussed concerns about exe rcise : promote physical activity Last Documented On 4 10:44AM ; [facility] Discussed nutritional needs teach healthy choices including fruits and vegetables Last Documented On 3 10:09AM ; [facility] Patient education about a pr oper diet 35.7 Last Documented On 3 10:09AM ; [facility] Discussed concerns about exe rcise : promote physical activity Last Documented On 3 10:09AM ; [facility] offered active and suppo rtive listening, validated emotions and feelings, and processed current stressors with being in the hospital. ~P encouraged patient to utilize positive supports and coping skills. ~ Last Documented On 3 1:42PM ; [facility] Discussed nutritional needs teach healthy choices including fruits and vegetables Last Documented On 3 2:16PM ; [facility] Patient education about a pr oper diet 35.7 Last Documented On 3 2:16PM ; [facility] Patient education about phys ical activity benefits Last Documented On 3 10:09PM ; [facility] Patient education about medi cation Last Documented On 3 10:09PM ; [facility] Patient education about ment al health Last Documented On 3 10:09PM ; [facility] Discussed concerns about exe rcise : promote physical activity Last Documented On 3 2:16PM ; [facility] Not requesting contraception Last Documented On 3 2:16PM ; [facility] Discussed nutritional needs teach healthy choices including fruits and vegetables Last Documented On 3 2:25PM ; [facility] Patient education about a pr oper diet 37.4 Last Documented On 3 2:25PM ; [facility] Patient education about phys ical activity benefits Last Documented On 3 2:50PM ; [facility] Patient education about medi cation Last Documented On 3 2:50PM ; [facility] Patient education about ment al health Last Documented On 3 2:50PM ; [facility] Discussed concerns about exe rcise : promote physical activity Last Documented On 3 2:25PM ; [facility] encouraged patient to ut ilize positive supports and coping skills. ~[facility] encouraged patient to contact [facility] if they need any additional support or resources. ~ Last Documented On 3 10:03PM ; [facility] Discussed nutritional needs teach healthy choices including fruits and vegetables Last Documented On 3 10:23AM ; [facility] Patient education about a pr oper diet 36.7 Last Documented On 3 10:23AM ; [facility] Patient education about phys ical activity benefits Last Documented On 3 1:07PM ; [facility] Patient education about medi cation Last Documented On 3 1:07PM ; [facility] Patient education about ment al health Last Documented On 3 1:07PM ; [facility] Discussed concerns about exe rcise : promote physical activity Last Documented On 3 10:23AM ; [facility] introduced patient to [facility] integrated model of care. ~P offered active and supportive listening, normalized emotions and feelings, and processed current stressors. ~Discussed healthy coping skills and positive supports in patient's life. ~Discussed healthy lifestyle behaviors. ~ Last Documented On 3 12:10AM ; [facility] Discussed nutritional needs 36 teach healthy choices including fruits and vegetables Last Documented On 3 12:20PM ; [facility] Patient education about a pr oper diet 36 Last Documented On 3 12:20PM ; [facility] Discussed concerns about exe rcise : promote physical activity Last Documented On 3 12:20PM ; [facility] Referred Patient to a Diabet es Self-Management Program Last Documented On 3 1:46PM ; [facility] Work Phone: 1(835) 130-224912-22-2023 Progress note* Progress note Date Encounter Last Documented by 05/10/2023 Medical Established Patient Last documented on 05/10/2023; 10:52 AM, Latia [facility]OR[facility]; [facility] Active Problems & Conditions - 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 Surgery is scheduled for 05/16. Also needs refill on Fenofibrate. Pt went to [facility] on 05/02 and they found compression fractures on back. Referred Here Not referred by urgent care clinic and not the emergency room. Prior encounters. - Data to be reviewed: clinical lab tests Catscan on 05/02 on back [facility] History of Present Illness Tunde Jack is a 72 year old female. - Allergy list reviewed - Reviewed Medications - Medication list reviewed Medically established 72 year old patient presented for surgical clearance for kyphoplasty to treat compression fracture of L2 vertebra. Medical history is significant for diabetes mellitus, essential hypertension, generalized anxiety disorder, hyperlipidemia, major depression, and primary insomnia. The patient denies any allergic reaction to anesthesia, reported she had ablation back in November with general anesthesia without any complications. Denies any chest pain, shortness of breath, headaches, or dizziness. The patient reported she already had preoperative labs and EKG. The patient is medically cleared for surgery on the 05.16.23. Current Medication - 1st Tier Unifine Pentips [...] previous hospitalizations. A recent examination by an feed handler 07/21/2022. Recent eye exam showed no apparent retinopathy present. Immunization History: Recent immunization for flu. : Not planning to have a baby in the next 12 months. Diagnoses: Systemic hypertension. Diabetes mellitus Surgical: - Cholecystectomy - Hernia repair - Hysterectomy - Tubal ligation Social History Environmental Exposure: Secondhand cigarette smoke exposure. Tobacco use: Cigarette smoking Light (1-10/day) and 35 pack-years. Not using electronic cigarettes/vaping. Alcohol: Not using alcohol. Drug Use: Not using drugs denied by patient. Sexual: Not sexually active. Sexual orientation Straight [...] skin symptoms. Physical Findings - Vitals taken 05/10/2023 10:03 am BP-Sitting R133/76 mmHg BP Cuff SizeLarge Pulse Rate-Gwnjiap408 bpm Temp-Oral97.8 F Wwresu13 in Epjveq042 lbs 12.8 oz Body Mass Index35.7 kg/m2 Body Surface Area2 m2 Oxygen Mnnjzqffzl44 % O2 DeviceNone (Room Air) UyR822 % Vital Signs: - Systolic blood pressure 130 - 139 mmHg. - Diastolic Blood Pressure < 80 mmHg. General Appearance: - Awake. - Alert. [...] No thrill. Peripheral Vascular Exam: - Normal. Edema: - Not present. Abdomen: Visual Inspection: - Abdomen was normal [...] normal. - Texture was normal. Assessment - Z01.818 - Encounter for other preprocedural examination - Z68.35 - Body mass index [BMI] 35.0-35.9, adult - F17.200 - Nicotine dependence, unspecified, uncomplicated Therapy - Cleared for Surgery. Vaccinations - Received dose of Reported: Patient has received the COVID Vaccine Counseling/Education - Not wishing to stop smoking offered Quit Line information - Discussed nutritional needs teach healthy choices including fruits and vegetables - Patient education about a proper diet 35.7 - Discussed concerns about exercise: promote physical activity Plan - Plan - stop medication HOLD Naproxen Medically cleared for surgery on 05.16.23. Notes - Patient is not interested in the COVID-19 vaccination at this time. [facility]12-22-2023 Instructions Includes: Instructions for all patient encounters Instructions to patient Intervention and counseling on cessation of tobacco use, 3-10 minutes Discussed medication and nicotine replacement for tobacco cessation Last Documented On 3 1:05PM ; [facility] Intervention and counseling on cessation of tobacco use, 3-10 minutes Discussed medication and nicotine replacement for tobacco cessation Last Documented On 3 1:02PM ; [facility] Intervention and counseling on cessation of tobacco use, 3-10 minutes Discussed medication and nicotine replacement for tobacco cessation Last Documented On 3 1:13PM ; [facility] Education and Decision Aids were provided during visit for: Discussed nutritional needs teach healthy choices including fruits and vegetables Last Documented On 3 10:09AM ; [facility] Patient education about a pr oper diet 35.7 Last Documented On 3 10:09AM ; [facility] Discussed concerns about exe rcise : promote physical activity Last Documented On 3 10:09AM ; [facility] offered active and suppo rtive listening, validated emotions and feelings, and processed current stressors with being in the hospital. ~[facility] encouraged patient to utilize positive supports and coping skills. ~ Last Documented On 3 1:42PM ; [facility] Discussed nutritional needs teach healthy choices including fruits and vegetables Last Documented On 3 2:16PM ; [facility] Patient education about a pr oper diet 35.7 Last Documented On 3 2:16PM ; [facility] Patient education about phys ical activity benefits Last Documented On 3 10:09PM ; [facility] Patient education about medi cation Last Documented On 3 10:09PM ; [facility] Patient education about ment al health Last Documented On 3 10:09PM ; [facility] Discussed concerns about exe rcise : promote physical activity Last Documented On 3 2:16PM ; [facility] Not requesting contraception Last Documented On 3 2:16PM ; [facility] Discussed nutritional needs teach healthy choices including fruits and vegetables Last Documented On 3 2:25PM ; [facility] Patient education about a pr oper diet 37.4 Last Documented On 3 2:25PM ; [facility] Patient education about phys ical activity benefits Last Documented On 3 2:50PM ; [facility] Patient education about medi cation Last Documented On 3 2:50PM ; [facility] Patient education about ment al health Last Documented On 3 2:50PM ; [facility] Discussed concerns about exe rcise : promote physical activity Last Documented On 3 2:25PM ; [facility] encouraged patient to ut ilize positive supports and coping skills. ~[facility] encouraged patient to contact [facility] if they need any additional support or resources. ~ Last Documented On 3 10:03PM ; [facility] Discussed nutritional needs teach healthy choices including fruits and vegetables Last Documented On 3 10:23AM ; [facility] Patient education about a pr oper diet 36.7 Last Documented On 3 10:23AM ; [facility] Patient education about phys ical activity benefits Last Documented On 3 1:07PM ; [facility] Patient education about medi cation Last Documented On 3 1:07PM ; [facility] Patient education about ment al health Last Documented On 3 1:07PM ; [facility] Discussed concerns about exe rcise : promote physical activity Last Documented On 3 10:23AM ; [facility] introduced patient to [facility] integrated model of care. ~P offered active and supportive listening, normalized emotions and feelings, and processed current stressors. ~Discussed healthy coping skills and positive supports in patient's life. ~Discussed healthy lifestyle behaviors. ~ Last Documented On 3 12:10AM ; [facility] Discussed nutritional needs 36 teach healthy choices including fruits and vegetables Last Documented On 3 12:20PM ; [facility] Patient education about a pr oper diet 36 Last Documented On 3 12:20PM ; [facility] Discussed concerns about exe rcise : promote physical activity Last Documented On 3 12:20PM ; [facility] Referred Patient to a Diabet es Self-Management Program Last Documented On 3 1:46PM ; [facility] Work Phone: 1(502) 867-399912-21-2023 Instructions* Patient Instructions* Jennifer Edmond RN - 05/09/2023 2:15 PM EST Preoperative Education Checklist- General Surgery date: 05/16/23 Surgery time: 2:00 p.m. Arrival time: 12:00 p.m. 1. Bring a photo ID and your insurance card with you the day of surgery. You will check in at the main lobby of the [facility]- registration desk is straight ahead as soon as you walk in. Tell them you are here for surgery. 2. If you have a Living Will/Durable Power of [employer]visor [employer] for Health Care that is not on file here, please bring a copy the day of surgery. 3. Please shower/bathe the night before surgery with the provided soap or wipes. Do not shower the morning of surgery- you will do use wipes when you arrive here at the hospital before getting into your surgical gown. Do not shave the area of your procedure for 2 days prior to your surgery. 4. NO powder, lotion, perfume/cologne, aftershave, make-up, deodorant, or hair products after you have bathed. 5. NO nail icelandic/acrylic on at least one finger. If you are having a hand, wrist or foot surgery then all nail icelandic and artificial/acrylic nails must be removed from that hand or foot. 6. Avoid ALL Aspirin and non-steroidal anti-inflammatory drugs and certain vitamins (Ibuprofen, Advil, Aleve, Excedrin, Meloxicam, Celebrex, fish/krill oil, etc.) for 7 days prior to surgery as instructed by your surgeon and/or your prescribing doctor. Tylenol IS ALLOWED. If you are on Ticlid, Xarelto, Eliquis, Pradaxa, Plavix or Coumadin, please check with your prescribing doctor for instructions for when to stop them. 7. If you use an inhaler, continue to use it routinely. 8. Nothing to eat or drink (not even water, gum, mints, or hard candy!) AFTER midnight prior to your surgery. 9. Take only medications that you are instructed to on the morning of surgery with a TINY SIP OF WATER. 10. Choose a responsible adult that will be able to drive you home when you are discharged from your hospital stay for your surgery and can stay with you in your home for 24 hours after your procedure. You must NOT drive any vehicle or operate any machinery for 24 hours after surgery. 11. When you dress for your appointment, please wear loose fitting clothing that is appropriate to accommodate your surgical area procedure. BRING WITH YOU ANY DEVICES YOU MAY NEED: ECHO hose, ice machine, sling/swath, brace or special shoe, oversized zip-up or button up shirt, CPAP machine if staying overnight. 12. Do NOT wear jewelry, watches, or any piercings or metal for surgery- leave these valuables and money at home. 13. Do NOT wear contact lenses for surgery- glasses are okay if needed. 14. The anesthesiologist will talk with you the day of surgery and will ask you to sign a Consent Form. 15. Refrain from smoking or any type of tobacco use for at least 8 hours and marijuana for 24 hoursprior to arrival for your surgery. 16. If a GREEN BLOOD band is given to you, please bring it with you for the day of surgery. 17. Notify your surgeon if you develop any illness before your surgery. 18. If you are staying overnight, please DO NOT BRING your home medications with you. 19. If you have any questions prior to surgery, please call the Preadmission Testing office at [phone], Mon.-Fri. 7 a.m.-3 p.m. Leave a voicemail if needed. Pre-Surgery Instructions: Medication Instructions aspirin-calcium carbonate 81 mg-300 mg calcium(777 mg) tablet Stop taking 1 week prior to procedure fenofibrate (TRICOR) 145 mg tablet Stop taking 0 days prior to procedure fluticasone propionate (FLONASE) 50 mcg/actuation nasal spray Stop taking 0 days prior to procedure gabapentin (NEURONTIN) 600 mg tablet Stop taking 0 days prior to procedure HYDROcodone-acetaminophen (NORCO) 7.5-325 mg per tablet Stop taking 0 days prior to procedure insulin degludec (TRESIBA FLEXTOUCH U-100) 100 unit/mL (3 mL) insulin pen Take last dose day beforeprocedure - 20 units insulin lispro (HumaLOG) 100 unit/mL injection Stop taking 0 days prior to procedure losartan-hydroCHLOROthiazide (HYZAAR) 100-12.5 mg per tablet Take morning of procedure sitaGLIPtin-metFORMIN (JANUMET) 50-500 mg per tablet Stop taking 0 days prior to procedure How to Avoid an Infection after Your Surgery Your doctor will give you specific instructions, but remember: -ALWAYS wash hands before caring for your incision. -No picking, scratching, or rubbing your incision. -No creams, lotion, powder, rubbing alcohol or hydrogen peroxide on the incision (can harm the tissue and slow healing). -Your doctor will give you specific instructions for what type of dressing you will need and how often it will need changed for infection purposes. -No tight clothing on incision. -Do not allow anyone to touch your incision unless they are cleaning, checking, or redressing it (be sure they wash their hands first). -No contact of your incision with pets; avoid sleeping with pets. -Take full course of antibiotic if prescribed for you after surgery- do not stop unless directed marcio your physician. You may also be given an antibiotic prior to your surgery to help prevent surgical site infections. -Eat a healthy and varied diet including proteins, fruits, and vegetables to help promote wound healing and keep blood sugars under control if you are diabetic. -Smoking slows the healing process by decreasing the amount of oxygen in your blood that is needed for tissue healing. Try to avoid or stop smoking if possible. LOOK at your incision each morning and each night to check the progress of healing. Some soreness, numbness, itching and/or mild bruising around the incision is normal. Call your doctor if you noticeany of the following: -Increased redness or hardening around the incision area. -Increased pain at the incision site. -Incision feels hot to the touch. -Swelling or pulling apart of the incision edges. -Yellow or green drainage or foul odor coming from the incision. -Bleeding from the incision (apply pressure as needed). -Fever higher than 101 degrees Fahrenheit for more than 4 hours. SHOWERING: Your doctor will give you specific instructions, but remember: -Be careful getting into and out of the shower. -Showers should be quick (5 minutes or less). -Use a clean washcloth to gently wash your incision with soap and water and pat the area dry with aclean towel. -No re-using wash cloths or towels; get a fresh one to clean your incision. -Do not soak in the bathtub, go swimming or use a hot tub (Jacuzzi), or perform activities where your incision is submerged in water or exposed to any fluids or substances until instructed by your doctor. -If your have the sticky strips (steri-strips) over the incision, it is OK to shower with them. Do not remove them. Let them fall off on their own. If you have a question, call your doctor s office. Go to the follow-up appointment with your doctor. [facility] Miscellaneous Notes* Perioperative Nursing Note - Jennifer Edmond RN - 05/09/2023 2:15 PM EST Preoperative Education Checklist- General Surgery date: 05/16/23 Surgery time: 2:00 p.m. Arrival time: 12:00 p.m. 1. Bring a photo ID and your insurance card with you the day of surgery. You will check in at the main lobby of the [facility]- registration desk is straight ahead as soon as you walk in. Tell them you are here for surgery. 2. If you have a Living Will/Durable Power of [employer]visor [employer] for Health Care that is not on file here, please bring a copy the day of surgery. 3. Please shower/bathe the night before surgery with the provided soap or wipes. Do not shower the morning of surgery- you will do use wipes when you arrive here at the hospital before getting into your surgical gown. Do not shave the area of your procedure for 2 days prior to your surgery. 4. NO powder, lotion, perfume/cologne, aftershave, make-up, deodorant, or hair products after you have bathed. 5. NO nail icelandic/acrylic on at least one finger. If you are having a hand, wrist or foot surgery then all nail icelandic and artificial/acrylic nails must be removed from that hand or foot. 6. Avoid ALL Aspirin and non-steroidal anti-inflammatory drugs and certain vitamins (Ibuprofen, Advil, Aleve, Excedrin, Meloxicam, Celebrex, fish/krill oil, etc.) for 7 days prior to surgery as instructed by your surgeon and/or your prescribing doctor. Tylenol IS ALLOWED. If you are on Ticlid, Xarelto, Eliquis, Pradaxa, Plavix or Coumadin, please check with your prescribing doctor for instructions for when to stop them. 7. If you use an inhaler, continue to use it routinely. 8. Nothing to eat or drink (not even water, gum, mints, or hard candy!) AFTER midnight prior to your surgery. 9. Take only medications that you are instructed to on the morning of surgery with a TINY SIP OF WATER. 10. Choose a responsible adult that will be able to drive you home when you are discharged from your hospital stay for your surgery and can stay with you in your home for 24 hours after your procedure. You must NOT drive any vehicle or operate any machinery for 24 hours after surgery. 11. When you dress for your appointment, please wear loose fitting clothing that is appropriate to accommodate your surgical area procedure. BRING WITH YOU ANY DEVICES YOU MAY NEED: ECHO hose, ice machine, sling/swath, brace or special shoe, oversized zip-up or button up shirt, CPAP machine if staying overnight. 12. Do NOT wear jewelry, watches, or any piercings or metal for surgery- leave these valuables and money at home. 13. Do NOT wear contact lenses for surgery- glasses are okay if needed. 14. The anesthesiologist will talk with you the day of surgery and will ask you to sign a Consent Form. 15. Refrain from smoking or any type of tobacco use for at least 8 hours and marijuana for 24 hoursprior to arrival for your surgery. 16. If a GREEN BLOOD band is given to you, please bring it with you for the day of surgery. 17. Notify your surgeon if you develop any illness before your surgery. 18. If you are staying overnight, please DO NOT BRING your home medications with you. 19. If you have any questions prior to surgery, please call the Preadmission Testing office at [phone], Mon.-Fri. 7 a.m.-3 p.m. Leave a voicemail if needed. Pre-Surgery Instructions: Medication Instructions aspirin-calcium carbonate 81 mg-300 mg calcium(777 mg) tablet Stop taking 1 week prior to procedure fenofibrate (TRICOR) 145 mg tablet Stop taking 0 days prior to procedure fluticasone propionate (FLONASE) 50 mcg/actuation nasal spray Stop taking 0 days prior to procedure gabapentin (NEURONTIN) 600 mg tablet Stop taking 0 days prior to procedure HYDROcodone-acetaminophen (NORCO) 7.5-325 mg per tablet Stop taking 0 days prior to procedure insulin degludec (TRESIBA FLEXTOUCH U-100) 100 unit/mL (3 mL) insulin pen Take last dose day beforeprocedure - 20 units insulin lispro (HumaLOG) 100 unit/mL injection Stop taking 0 days prior to procedure losartan-hydroCHLOROthiazide (HYZAAR) 100-12.5 mg per tablet Take morning of procedure sitaGLIPtin-metFORMIN (JANUMET) 50-500 mg per tablet Stop taking 0 days prior to procedure How to Avoid an Infection after Your Surgery Your doctor will give you specific instructions, but remember: -ALWAYS wash hands before caring for your incision. -No picking, scratching, or rubbing your incision. -No creams, lotion, powder, rubbing alcohol or hydrogen peroxide on the incision (can harm the tissue and slow healing). -Your doctor will give you specific instructions for what type of dressing you will need and how often it will need changed for infection purposes. -No tight clothing on incision. -Do not allow anyone to touch your incision unless they are cleaning, checking, or redressing it (be sure they wash their hands first). -No contact of your incision with pets; avoid sleeping with pets. -Take full course of antibiotic if prescribed for you after surgery- do not stop unless directed marcio your physician. You may also be given an antibiotic prior to your surgery to help prevent surgical site infections. -Eat a healthy and varied diet including proteins, fruits, and vegetables to help promote wound healing and keep blood sugars under control if you are diabetic. -Smoking slows the healing process by decreasing the amount of oxygen in your blood that is needed for tissue healing. Try to avoid or stop smoking if possible. LOOK at your incision each morning and each night to check the progress of healing. Some soreness, numbness, itching and/or mild bruising around the incision is normal. Call your doctor if you noticeany of the following: -Increased redness or hardening around the incision area. -Increased pain at the incision site. -Incision feels hot to the touch. -Swelling or pulling apart of the incision edges. -Yellow or green drainage or foul odor coming from the incision. -Bleeding from the incision (apply pressure as needed). -Fever higher than 101 degrees Fahrenheit for more than 4 hours. SHOWERING: Your doctor will give you specific instructions, but remember: -Be careful getting into and out of the shower. -Showers should be quick (5 minutes or less). -Use a clean washcloth to gently wash your incision with soap and water and pat the area dry with aclean towel. -No re-using wash cloths or towels; get a fresh one to clean your incision. -Do not soak in the bathtub, go swimming or use a hot tub (Jacuzzi), or perform activities where your incision is submerged in water or exposed to any fluids or substances until instructed by your doctor. -If your have the sticky strips (steri-strips) over the incision, it is OK to shower with them. Do not remove them. Let them fall off on their own. If you have a question, call your doctor s office. Go to the follow-up appointment with your doctor. * Perioperative Nursing Note - Jennifer Edmond RN - 05/09/2023 2:15 PM EST Hibiclens and surgical instructions reviewed. Patient verbalized understanding. [facility] in [facility]German [facility] Nurse Note* Perioperative Nursing Note - Jennifer Edmond RN - 05/09/2023 2:15 PM EST Preoperative Education Checklist- General Surgery date: 05/16/23 Surgery time: 2:00 p.m. Arrival time: 12:00 p.m. 1. Bring a photo ID and your insurance card with you the day of surgery. You will check in at the main lobby of the [facility]- registration desk is straight ahead as soon as you walk in. Tell them you are here for surgery. 2. If you have a Living Will/Durable Power of [employer]visor [employer] for Health Care that is not on file here, please bring a copy the day of surgery. 3. Please shower/bathe the night before surgery with the provided soap or wipes. Do not shower the morning of surgery- you will do use wipes when you arrive here at the hospital before getting into your surgical gown. Do not shave the area of your procedure for 2 days prior to your surgery. 4. NO powder, lotion, perfume/cologne, aftershave, make-up, deodorant, or hair products after you have bathed. 5. NO nail icelandic/acrylic on at least one finger. If you are having a hand, wrist or foot surgery then all nail icelandic and artificial/acrylic nails must be removed from that hand or foot. 6. Avoid ALL Aspirin and non-steroidal anti-inflammatory drugs and certain vitamins (Ibuprofen, Advil, Aleve, Excedrin, Meloxicam, Celebrex, fish/krill oil, etc.) for 7 days prior to surgery as instructed by your surgeon and/or your prescribing doctor. Tylenol IS ALLOWED. If you are on Ticlid, Xarelto, Eliquis, Pradaxa, Plavix or Coumadin, please check with your prescribing doctor for instructions for when to stop them. 7. If you use an inhaler, continue to use it routinely. 8. Nothing to eat or drink (not even water, gum, mints, or hard candy!) AFTER midnight prior to your surgery. 9. Take only medications that you are instructed to on the morning of surgery with a TINY SIP OF WATER. 10. Choose a responsible adult that will be able to drive you home when you are discharged from your hospital stay for your surgery and can stay with you in your home for 24 hours after your procedure. You must NOT drive any vehicle or operate any machinery for 24 hours after surgery. 11. When you dress for your appointment, please wear loose fitting clothing that is appropriate to accommodate your surgical area procedure. BRING WITH YOU ANY DEVICES YOU MAY NEED: ECHO hose, ice machine, sling/swath, brace or special shoe, oversized zip-up or button up shirt, CPAP machine if staying overnight. 12. Do NOT wear jewelry, watches, or any piercings or metal for surgery- leave these valuables and money at home. 13. Do NOT wear contact lenses for surgery- glasses are okay if needed. 14. The anesthesiologist will talk with you the day of surgery and will ask you to sign a Consent Form. 15. Refrain from smoking or any type of tobacco use for at least 8 hours and marijuana for 24 hoursprior to arrival for your surgery. 16. If a GREEN BLOOD band is given to you, please bring it with you for the day of surgery. 17. Notify your surgeon if you develop any illness before your surgery. 18. If you are staying overnight, please DO NOT BRING your home medications with you. 19. If you have any questions prior to surgery, please call the Preadmission Testing office at [phone], Mon.-Fri. 7 a.m.-3 p.m. Leave a voicemail if needed. Pre-Surgery Instructions: Medication Instructions aspirin-calcium carbonate 81 mg-300 mg calcium(777 mg) tablet Stop taking 1 week prior to procedure fenofibrate (TRICOR) 145 mg tablet Stop taking 0 days prior to procedure fluticasone propionate (FLONASE) 50 mcg/actuation nasal spray Stop taking 0 days prior to procedure gabapentin (NEURONTIN) 600 mg tablet Stop taking 0 days prior to procedure HYDROcodone-acetaminophen (NORCO) 7.5-325 mg per tablet Stop taking 0 days prior to procedure insulin degludec (TRESIBA FLEXTOUCH U-100) 100 unit/mL (3 mL) insulin pen Take last dose day beforeprocedure - 20 units insulin lispro (HumaLOG) 100 unit/mL injection Stop taking 0 days prior to procedure losartan-hydroCHLOROthiazide (HYZAAR) 100-12.5 mg per tablet Take morning of procedure sitaGLIPtin-metFORMIN (JANUMET) 50-500 mg per tablet Stop taking 0 days prior to procedure How to Avoid an Infection after Your Surgery Your doctor will give you specific instructions, but remember: -ALWAYS wash hands before caring for your incision. -No picking, scratching, or rubbing your incision. -No creams, lotion, powder, rubbing alcohol or hydrogen peroxide on the incision (can harm the tissue and slow healing). -Your doctor will give you specific instructions for what type of dressing you will need and how often it will need changed for infection purposes. -No tight clothing on incision. -Do not allow anyone to touch your incision unless they are cleaning, checking, or redressing it (be sure they wash their hands first). -No contact of your incision with pets; avoid sleeping with pets. -Take full course of antibiotic if prescribed for you after surgery- do not stop unless directed marcio your physician. You may also be given an antibiotic prior to your surgery to help prevent surgical site infections. -Eat a healthy and varied diet including proteins, fruits, and vegetables to help promote wound healing and keep blood sugars under control if you are diabetic. -Smoking slows the healing process by decreasing the amount of oxygen in your blood that is needed for tissue healing. Try to avoid or stop smoking if possible. LOOK at your incision each morning and each night to check the progress of healing. Some soreness, numbness, itching and/or mild bruising around the incision is normal. Call your doctor if you noticeany of the following: -Increased redness or hardening around the incision area. -Increased pain at the incision site. -Incision feels hot to the touch. -Swelling or pulling apart of the incision edges. -Yellow or green drainage or foul odor coming from the incision. -Bleeding from the incision (apply pressure as needed). -Fever higher than 101 degrees Fahrenheit for more than 4 hours. SHOWERING: Your doctor will give you specific instructions, but remember: -Be careful getting into and out of the shower. -Showers should be quick (5 minutes or less). -Use a clean washcloth to gently wash your incision with soap and water and pat the area dry with aclean towel. -No re-using wash cloths or towels; get a fresh one to clean your incision. -Do not soak in the bathtub, go swimming or use a hot tub (Jacuzzi), or perform activities where your incision is submerged in water or exposed to any fluids or substances until instructed by your doctor. -If your have the sticky strips (steri-strips) over the incision, it is OK to shower with them. Do not remove them. Let them fall off on their own. If you have a question, call your doctor s office. Go to the follow-up appointment with your doctor. [facility]12-21-2023 Nurse Note* Perioperative Nursing Note - Jennifer Edmond RN - 05/09/2023 2:15 PM EST Hibiclens and surgical instructions reviewed. Patient verbalized understanding. [facility]12-03-2023 Instructions Includes: Instructions for all patient encounters Instructions to patient Intervention and counseling on cessation of tobacco use, 3-10 minutes Discussed medication and nicotine replacement for tobacco cessation Last Documented On 3 1:05PM ; [facility] Intervention and counseling on cessation of tobacco use, 3-10 minutes Discussed medication and nicotine replacement for tobacco cessation Last Documented On 3 1:02PM ; [facility] Intervention and counseling on cessation of tobacco use, 3-10 minutes Discussed medication and nicotine replacement for tobacco cessation Last Documented On 3 1:13PM ; [facility] Education and Decision Aids were provided during visit for: P offered active and suppo rtive listening, validated emotions and feelings, and processed current stressors with being in the hospital. ~[facility] encouraged patient to utilize positive supports and coping skills. ~ Last Documented On 3 1:42PM ; [facility] Discussed nutritional needs teach healthy choices including fruits and vegetables Last Documented On 3 2:16PM ; [facility] Patient education about a pr oper diet 35.7 Last Documented On 3 2:16PM ; [facility] Patient education about phys ical activity benefits Last Documented On 3 10:09PM ; [facility] Patient education about medi cation Last Documented On 3 10:09PM ; [facility] Patient education about ment al health Last Documented On 3 10:09PM ; [facility] Discussed concerns about exe rcise : promote physical activity Last Documented On 3 2:16PM ; [facility] Not requesting contraception Last Documented On 3 2:16PM ; [facility] Discussed nutritional needs teach healthy choices including fruits and vegetables Last Documented On 3 2:25PM ; [facility] Patient education about a pr oper diet 37.4 Last Documented On 3 2:25PM ; [facility] Patient education about phys ical activity benefits Last Documented On 3 2:50PM ; [facility] Patient education about medi cation Last Documented On 3 2:50PM ; [facility] Patient education about ment al health Last Documented On 3 2:50PM ; [facility] Discussed concerns about exe rcise : promote physical activity Last Documented On 3 2:25PM ; [facility] encouraged patient to ut ilize positive supports and coping skills. ~[facility] encouraged patient to contact [facility] if they need any additional support or resources. ~ Last Documented On 3 10:03PM ; [facility] Discussed nutritional needs teach healthy choices including fruits and vegetables Last Documented On 3 10:23AM ; [facility] Patient education about a pr oper diet 36.7 Last Documented On 3 10:23AM ; [facility] Patient education about phys ical activity benefits Last Documented On 3 1:07PM ; [facility] Patient education about medi cation Last Documented On 3 1:07PM ; [facility] Patient education about ment al health Last Documented On 3 1:07PM ; [facility] Discussed concerns about exe rcise : promote physical activity Last Documented On 3 10:23AM ; [facility] introduced patient to [facility] integrated model of care. ~[facility] offered active and supportive listening, normalized emotions and feelings, and processed current stressors. ~Discussed healthy coping skills and positive supports in patient's life. ~Discussed healthy lifestyle behaviors. ~ Last Documented On 3 12:10AM ; [facility] Discussed nutritional needs 36 teach healthy choices including fruits and vegetables Last Documented On 3 12:20PM ; [facility] Patient education about a pr oper diet 36 Last Documented On 3 12:20PM ; [facility] Discussed concerns about exe rcise : promote physical activity Last Documented On 3 12:20PM ; [facility] Referred Patient to a Diabet es Self-Management Program Last Documented On 3 1:46PM ; [facility] Work Phone: 1(450) 258-807012-02-2023 Instructions Includes: Instructions for all patient encounters Instructions to patient Intervention and counseling on cessation of tobacco use, 3-10 minutes Discussed medication and nicotine replacement for tobacco cessation Last Documented On 3 1:05PM ; [facility] Intervention and counseling on cessation of tobacco use, 3-10 minutes Discussed medication and nicotine replacement for tobacco cessation Last Documented On 3 1:02PM ; [facility] Intervention and counseling on cessation of tobacco use, 3-10 minutes Discussed medication and nicotine replacement for tobacco cessation Last Documented On 3 1:13PM ; [facility] Education and Decision Aids were provided during visit for: [facility] offered active and suppo rtive listening, validated emotions and feelings, and processed current stressors with being in the hospital. ~[facility] encouraged patient to utilize positive supports and coping skills. ~ Last Documented On 3 1:42PM ; [facility] Discussed nutritional needs teach healthy choices including fruits and vegetables Last Documented On 3 2:16PM ; [facility] Patient education about a pr oper diet 35.7 Last Documented On 3 2:16PM ; [facility] Discussed concerns about exe rcise : promote physical activity Last Documented On 3 2:16PM ; [facility] Not requesting contraception Last Documented On 3 2:16PM ; [facility] Discussed nutritional needs teach healthy choices including fruits and vegetables Last Documented On 3 2:25PM ; [facility] Patient education about a pr oper diet 37.4 Last Documented On 3 2:25PM ; [facility] Patient education about phys ical activity benefits Last Documented On 3 2:50PM ; [facility] Patient education about medi cation Last Documented On 3 2:50PM ; [facility] Patient education about ment al health Last Documented On 3 2:50PM ; [facility] Discussed concerns about exe rcise : promote physical activity Last Documented On 3 2:25PM ; [facility] encouraged patient to ut ilize positive supports and coping skills. ~[facility] encouraged patient to contact [facility] if they need any additional support or resources. ~ Last Documented On 3 10:03PM ; [facility] Discussed nutritional needs teach healthy choices including fruits and vegetables Last Documented On 3 10:23AM ; [facility] Patient education about a pr oper diet 36.7 Last Documented On 3 10:23AM ; [facility] Patient education about phys ical activity benefits Last Documented On 3 1:07PM ; [facility] Patient education about medi cation Last Documented On 3 1:07PM ; [facility] Patient education about ment al health Last Documented On 3 1:07PM ; [facility] Discussed concerns about exe rcise : promote physical activity Last Documented On 3 10:23AM ; [facility] introduced patient to [facility] integrated model of care. ~[facility] offered active and supportive listening, normalized emotions and feelings, and processed current stressors. ~Discussed healthy coping skills and positive supports in patient's life. ~Discussed healthy lifestyle behaviors. ~ Last Documented On 3 12:10AM ; [facility] Discussed nutritional needs 36 teach healthy choices including fruits and vegetables Last Documented On 3 12:20PM ; [facility] Patient education about a pr oper diet 36 Last Documented On 3 12:20PM ; [facility] Discussed concerns about exe rcise : promote physical activity Last Documented On 3 12:20PM ; [facility] Referred Patient to a Diabet es Self-Management Program Last Documented On 3 1:46PM ; [facility] Work Phone: 1(635) 384-109811-30-2023 Evaluation note Includes: Assessments for all patient encounters Findings Encounter Date Moderate recurrent major depression BH E stablished Patient with Janina PARRISH-Helder 04/18/2023 Last Documented On 3 1:42PM ; [facility] [Z68.35 - Body mass index [B SD] 35.0-35.9, adult] assessment of body mass index Medical Established Patient with Latia Hoffmanim PULL OVER 04/18/2023 Last Documented On 3 2:51PM ; [facility] Assessment of body mass index Medical Es tablished Patient with Latia Hoffmanim PULL OVER 11/15/2022 Last Documented On 3 2:53PM ; [facility] Generalized anxiety disorder BH Establis hed Patient with 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 11/08/2022 Last Documented On 3 10:03PM ; [facility] Hyperlipidemia Nurse Visit with Latia Sparks [facility] 11/08/2022 Last Documented On 3 2:16PM ; [facility] was [facility] Last Documented On 3 2:16PM ; [facility] [Z68.36 - Body mass index [B SD] 36.0-36.9, adult] assessment of body mass index Medical Established Patient with Latianova Hoffmanim PULL OVER 08/02/2022 Last Documented On 3 1:36PM ; [facility] [facility] Intervention and counseling on cessation of tobacco use, 3-10 minutes Discussed medication and nicotine replacement for tobacco cessation Medical Established Patient with Latia Hoffmanim PULL OVER 08/02/2022 Last Documented On 3 1:36PM ; [facility] Visit for: person consulting for explanation of examination or test findings Medical Established Patient with Laita Sparks PULL OVER 08/02/2022 Last Documented On 3 1:36PM ; [facility] Generalized anxiety disorder BH Establis hed Patient with Cinthia Stone ELECTRICIAN'S ASSISTANT-S 07/23/2022 Last Documented On 3 12:17AM ; [facility] Intervention and counseling on cessation of tobacco use, 3-10 minutes Discussed medication and nicotine replacement for tobacco cessation BH Established Patient with Cinthia Stone ELECTRICIAN'S ASSISTANT-S 07/23/2022 Last Documented On 3 12:17AM ; [facility] Moderate recurrent major depression BH E stablished Patient with Cinthia Farfan ELECTRICIAN'S ASSISTANT-S 07/23/2022 Last Documented On 3 12:17AM ; [facility] Nicotine dependence Established Patient with Cinthia Farfan ELECTRICIAN'S ASSISTANT-S 07/23/2022 Last Documented On 3 12:17AM ; [facility] Primary insomnia Established Patient with Deysi Farfan ELECTRICIAN'S ASSISTANT-S 07/23/2022 Last Documented On 3 12:17AM ; [facility] [Z68.36 - Body mass index [B SD] 36.0-36.9, adult] assessment of body mass index Medical New Patient with Latia Hoffmanim PULL OVER 07/23/2022 Last Documented On 3 2:32PM ; [facility] Diabetes Risk Test Score was nine score 07/23/2022 Medical New Patient with Latia Hoffmanim PULL OVER 07/23/2022 Last Documented On 3 2:32PM ; [facility] Intervention and counseling on cessation of tobacco use, 3-10 minutes Discussed medication and nicotine replacement for tobacco cessation Medical New Patient with Latia Sparks PULL OVER 07/23/2022 Last Documented On 3 2:32PM ; [facility] Screening for Hep C Medical New Patient with Nad yelitza Farooqahim PULL OVER 07/23/2022 Last Documented On 3 2:32PM ; [facility] Screening for HIV Medical New Patient with Hiren a Sparks PULL OVER 07/23/2022 Last Documented On 3 2:32PM ; [facility] Venipuncture was performed Medical New Patient w dmitry Hoffmanim PULL OVER 07/23/2022 Last Documented On 3 2:32PM ; [facility] Visit for routine adult H&P without abnormal findings Medical New Patient with Latia Hoffmanim PULL OVER 07/23/2022 Last Documented On 3 2:32PM ; [facility] Work Phone: [phone]) 314-131511-30-2023 Evaluation note Includes: Assessments for all patient encounters Findings Encounter Date Moderate recurrent major depression BH E stablished Patient with 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 04/18/2023 Last Documented On 3 1:42PM ; [facility] [Z68.35 - Body mass index [B SD] 35.0-35.9, adult] assessment of body mass index Medical Established Patient with Latia Sparks PULL OVER 04/18/2023 Last Documented On 3 10:11PM ; [facility] Nicotine dependence Medical Established Patient with Latia Sparks PULL OVER 04/18/2023 Last Documented On 3 10:11PM ; [facility] 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 Medical Established Patient with Latia Sparks PULL OVER 04/18/2023 Last Documented On 3 10:11PM ; [facility] Assessment of body mass index Medical Es tablished Patient with Latia Sparks PULL OVER 11/15/2022 Last Documented On 3 2:53PM ; [facility] Generalized anxiety disorder BH Establis hed Patient with 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 11/08/2022 Last Documented On 3 10:03PM ; [facility] Hyperlipidemia Nurse Visit with Latia Sparks PULL OVER 11/08/2022 Last Documented On 3 2:16PM ; [facility] Venipuncture was performed Nurse Visit with Kathia Hoffmanim [facility] 11/08/2022 Last Documented On 3 2:16PM ; [facility] [Z68.36 - Body mass index [B SD] 36.0-36.9, adult] assessment of body mass index Medical Established Patient with Latia Sparks PULL OVER 08/02/2022 Last Documented On 3 1:36PM ; [facility] Intervention and counseling on cessation of tobacco use, 3-10 minutes Discussed medication and nicotine replacement for tobacco cessation Medical Established Patient with Latia Sparks PULL OVER 08/02/2022 Last Documented On 3 1:36PM ; [facility] Visit for: person consulting for explanation of examination or test findings Medical Established Patient with Latia Sparks PULL OVER 08/02/2022 Last Documented On 3 1:36PM ; [facility] Generalized anxiety disorder Establis hed Patient with Cinthia Stone ELECTRICIAN'S ASSISTANT-S 07/23/2022 Last Documented On 3 12:17AM ; [facility] Intervention and counseling on cessation of tobacco use, 3-10 minutes Discussed medication and nicotine replacement for tobacco cessation Established Patient with Cinthia Stone ELECTRICIAN'S ASSISTANT-S 07/23/2022 Last Documented On 3 12:17AM ; [facility] Moderate recurrent major depression E stablished Patient with Cinthia Stone ELECTRICIAN'S ASSISTANT-S 07/23/2022 Last Documented On 3 12:17AM ; [facility] Nicotine dependence Established Patient with Cinthia Stone ELECTRICIAN'S ASSISTANT-S 07/23/2022 Last Documented On 3 12:17AM ; [facility] Primary insomnia Established Patient with Deysi pugh Stone ELECTRICIAN'S ASSISTANT-S 07/23/2022 Last Documented On 3 12:17AM ; [facility] [Z68.36 - Body mass index [B SD] 36.0-36.9, adult] assessment of body mass index Medical New Patient with Latia Sparks PULL OVER 07/23/2022 Last Documented On 3 2:32PM ; [facility] Diabetes Risk Test Score was nine score 07/23/2022 Medical New Patient with Latia Sparks PULL OVER 07/23/2022 Last Documented On 3 2:32PM ; [facility] Intervention and counseling on cessation of tobacco use, 3-10 minutes Discussed medication and nicotine replacement for tobacco cessation Medical New Patient with Latia Sparks PULL OVER 07/23/2022 Last Documented On 3 2:32PM ; [facility] Screening for Hep C Medical New Patient with Nad yelitza Sparks PULL OVER 07/23/2022 Last Documented On 3 2:32PM ; [facility] Screening for HIV Medical New Patient with Hiren a Sparks PULL OVER 07/23/2022 Last Documented On 3 2:32PM ; [facility] Venipuncture was performed Medical New Patient w dmitry Sparks PULL OVER 07/23/2022 Last Documented On 3 2:32PM ; [facility] Visit for routine adult H&P without abnormal findings Medical New Patient with Latia Sparks PULL OVER 07/23/2022 Last Documented On 3 2:32PM ; [facility] Work Phone: 1(715) 667-277311-30-2023 History general Narrative - Reported Includes: Medical History in patient's chart Description Last Updated Not planning to have a baby in the next 12 months 04/18/2023 Last Documented On 3 10:11PM ; [facility] No previous suicide attempt 07/24/2022 Last Documented On 3 12:17AM ; [facility] A recent examination by an ophthalmologi st 07/21/2022 07/23/2022 Last Documented On 3 2:32PM ; [facility] History of diabetes mellitus 07/23/2022 Last Documented On 3 2:32PM ; [facility] History of systemic hypertension 023 Last Documented On 3 2:32PM ; [facility] No previous hospitalizations 07/23/2022 Last Documented On 3 2:32PM ; [facility] Recent immunization for flu 07/23/2022 Last Documented On 3 2:32PM ; [facility] Work Phone: 1(229) 365-414511-30-2023 Progress note* Progress note Date Encounter Last Documented by 04/18/2023 Established Patient Last docu mented on 04/20/2023; 1:42 PM, Janina FRIED; [facility] Active Problems & Conditions - 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 [...] previous hospitalizations. A recent examination by an feed handler 07/21/2022. Immunization History: Recent immunization for flu. Diagnoses: Systemic hypertension. Diabetes mellitus Surgical: - Cholecystectomy - Hernia repair - Hysterectomy - Tubal ligation Social History Environmental Exposure: No secondhand cigarette smoke exposure. Personal: Recent emotional stress. Housing And Economic Circumstances: Living arrangements living arrangements: Allergies - [place] Reaction: Hives / Urticaria, Shock - Mellaril [...] positive supports and coping skills. . Plan [facility] to follow up with patient at next scheduled visit. . Health Reminders - Eye Exam satisfied 07/21/2022. [facility]11-30-2023 Progress note* Progress note Date Encounter Last Documented by 04/18/2023 Medical Established Patient Last documented on 04/21/2023; 10:11 PM, Latia Sparks PULL OVER; [facility] Active Problems & Conditions - [...] previous hospitalizations. A recent examination by an feed handler 07/21/2022. Immunization History: Recent immunization for flu. [...] dhaliwal), and gender identity Female. Allergies - Tai [...] BP-Sitting R138/80 mmHg BP Cuff SizeLarge Pulse Rate-Lhbyohp30 bpm Respiration Rate18 per min Temp-Oral97.8 F Wusiip15 in Dbdkbj250 lbs Body Mass Index35.7 kg/m2 Body Surface Area2 m2 Oxygen Nqzucdcsiq14 % O2 DeviceNone (Room Air) FrW278 % Vital Signs: - Systolic blood pressure [...] + 0 pt : Not at all. 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 A recent examination by an feed handler 07/21/2022. Immunization History: Recent immunization for flu. Diagnoses: Systemic hypertension. Diabetes mellitus Surgical: - Cholecystectomy - Hernia repair - Hysterectomy - Tubal ligation Allergies - [place] Reaction: Hives / Urticaria, Shock - Mellaril - [place] Reaction: Hives / Urticaria - Topamax Family History Maternal: Type 1 diabetes mellitus Plan StartCited- Acute sinusitis, unspecified Azithromycin 250 MG tablet 500 mg by mouth x 1 day 1, then 250 mg by mouth daily x 4 days., 5 days, 0 refills EndCited [facility]11-13-2023 Instructions Includes: Instructions for all patient encounters Instructions to patient Intervention and counseling on cessation of tobacco use, 3-10 minutes Discussed medication and nicotine replacement for tobacco cessation Last Documented On 3 1:05PM ; [facility] Intervention and counseling on cessation of tobacco use, 3-10 minutes Discussed medication and nicotine replacement for tobacco cessation Last Documented On 3 1:02PM ; [facility] Intervention and counseling on cessation of tobacco use, 3-10 minutes Discussed medication and nicotine replacement for tobacco cessation Last Documented On 3 1:13PM ; [facility] Education and Decision Aids were provided during visit for: Discussed nutritional needs teach healthy choices including fruits and vegetables Last Documented On 3 2:25PM ; [facility] Patient education about a pr oper diet 37.4 Last Documented On 3 2:25PM ; [facility] Patient education about phys ical activity benefits Last Documented On 3 2:50PM ; [facility] Patient education about medi cation Last Documented On 3 2:50PM ; [facility] Patient education about ment al health Last Documented On 3 2:50PM ; [facility] Discussed concerns about exe rcise : promote physical activity Last Documented On 3 2:25PM ; [facility] encouraged patient to ut ilize positive supports and coping skills. [facility] encouraged patient to contact [facility] if they need any additional support or resources. ~ Last Documented On 3 10:03PM ; [facility] Discussed nutritional needs teach healthy choices including fruits and vegetables Last Documented On 3 10:23AM ; [facility] Patient education about a pr oper diet 36.7 Last Documented On 3 10:23AM ; [facility] Patient education about phys ical activity benefits Last Documented On 3 1:07PM ; [facility] Patient education about medi cation Last Documented On 3 1:07PM ; [facility] Patient education about ment al health Last Documented On 3 1:07PM ; [facility] Discussed concerns about exe rcise : promote physical activity Last Documented On 3 10:23AM ; [facility] introduced patient to [facility] integrated model of care. ~P offered active and supportive listening, normalized emotions and feelings, and processed current stressors. ~Discussed healthy coping skills and positive supports in patient's life. ~Discussed healthy lifestyle behaviors. ~ Last Documented On 3 12:10AM ; [facility] Discussed nutritional needs 36 teach healthy choices including fruits and vegetables Last Documented On 3 12:20PM ; [facility] Patient education about a pr oper diet 36 Last Documented On 3 12:20PM ; [facility] Discussed concerns about exe rcise : promote physical activity Last Documented On 3 12:20PM ; [facility] Referred Patient to a Diabet es Self-Management Program Last Documented On 3 1:46PM ; [facility] Work Phone: 1([phone]) 124-990406-29-2023 Evaluation note Includes: Assessments for all patient encounters Findings Encounter Date Assessment of body mass index Medical Es tablished Patient with Latia Sparks [facility] 11/15/2022 Last Documented On 3 2:53PM ; [facility] Generalized anxiety disorder BH Establis hed Patient with Janina PARRISH-S 11/08/2022 Last Documented On 3 10:03PM ; [facility] Hyperlipidemia Nurse Visit with Latia Sparks [facility] 11/08/2022 Last Documented On 3 2:16PM ; [facility] Venipuncture was performed Nurse Visit with Kathia Sparks [facility] 11/08/2022 Last Documented On 3 2:16PM ; [facility] [Z68.36 - Body mass index [B SD] 36.0-36.9, adult] assessment of body mass index Medical Established Patient with Latia Sparks [facility] 08/02/2022 Last Documented On 3 1:36PM ; [facility] Intervention and counseling on cessation of tobacco use, 3-10 minutes Discussed medication and nicotine replacement for tobacco cessation Medical Established Patient with Latia Sparks [facility] 08/02/2022 Last Documented On 3 1:36PM ; [facility] Visit for: person consulting for explanation of examination or test findings Medical Established Patient with Latia Sparks PULL OVER 08/02/2022 Last Documented On 3 1:36PM ; [facility] Generalized anxiety disorder Establis hed Patient with Cinthia Stone ELECTRICIAN'S ASSISTANT-S 07/23/2022 Last Documented On 3 12:17AM ; [facility] Intervention and counseling on cessation of tobacco use, 3-10 minutes Discussed medication and nicotine replacement for tobacco cessation Established Patient with Cinthia Stone ELECTRICIAN'S ASSISTANT-S 07/23/2022 Last Documented On 3 12:17AM ; [facility] Moderate recurrent major depression E stablished Patient with Cinthia Stone ELECTRICIAN'S ASSISTANT-S 07/23/2022 Last Documented On 3 12:17AM ; [facility] Nicotine dependence Established Patient with Cinthia Stone ELECTRICIAN'S ASSISTANT-S 07/23/2022 Last Documented On 3 12:17AM ; [facility] Primary insomnia Established Patient with Deysi pugh Stone ELECTRICIAN'S ASSISTANT-S 07/23/2022 Last Documented On 3 12:17AM ; [facility] [Z68.36 - Body mass index [B SD] 36.0-36.9, adult] assessment of body mass index Medical New Patient with Latia Hoffmanim PULL OVER 07/23/2022 Last Documented On 3 2:32PM ; [facility] Diabetes Risk Test Score was nine score 07/23/2022 Medical New Patient with Latia Sparks PULL OVER 07/23/2022 Last Documented On 3 2:32PM ; [facility] Intervention and counseling on cessation of tobacco use, 3-10 minutes Discussed medication and nicotine replacement for tobacco cessation Medical New Patient with Latia Sparks PULL OVER 07/23/2022 Last Documented On 3 2:32PM ; [facility] Screening for Hep C Medical New Patient with Nad yelitza Sparks PULL OVER 07/23/2022 Last Documented On 3 2:32PM ; [facility] Screening for HIV Medical New Patient with Hiren a Sparks PULL OVER 07/23/2022 Last Documented On 3 2:32PM ; [facility] Venipuncture was performed Medical New Patient w dmitry Sparks PULL OVER 07/23/2022 Last Documented On 3 2:32PM ; [facility] Visit for routine adult H&P without abnormal findings Medical New Patient with Latia Sparks PULL OVER 07/23/2022 Last Documented On 3 2:32PM ; [facility] Work Phone: 1(361) 340-414606-29-2023 Progress note* Progress note Date Encounter Last Documented by 11/15/2022 Medical Established Patient Last documented on 11/15/2022; 2:53 PM, Latia Sparks [facility]; [facility] Active Problems & Conditions - [...] The patient is currently living at a snf that does not follow any diabetic or [...] previous hospitalizations. A recent examination by an feed handler 07/21/2022. Immunization History: Recent immunization for flu. Diagnoses: Systemic hypertension. Diabetes mellitus Surgical: - Cholecystectomy - Hernia repair - Hysterectomy - Tubal ligation Social History Environmental Exposure: Secondhand cigarette smoke exposure. Tobacco use: Cigarette smoking Moderate (11-19/day). Not using electronic cigarettes/vaping. Sexual: Sexual orientation was 37.4 Straight (not lesbian or dhaliwal) and gender identity Female. Allergies - [place] Reaction: Hives / Urticaria, Shock - Mellaril [...] 11/15/2022 02:17 pm BP-Sitting R143/78 mmHg Pulse Rate-Jembshc75 bpm Wtccsp04 in Zmntvl503 lbs Body Mass Index37.4 kg/m2 Body Surface Area2 m2 Oxygen Acaslmombi60 % - Vitals taken 11/15/2022 02:24 pm BP-Iwgifam099/82 mmHg General Appearance: - Awake. - Alert. [...] and diastolic 80-89 mmHg diastolic 80-89 mmHg. [facility]06-24-2023 Instructions Includes: Instructions for all patient encounters Instructions to patient Intervention and counseling on cessation of tobacco use, 3-10 minutes Discussed medication and nicotine replacement for tobacco cessation Last Documented On 3 1:05PM ; [facility] Intervention and counseling on cessation of tobacco use, 3-10 minutes Discussed medication and nicotine replacement for tobacco cessation Last Documented On 3 1:02PM ; [facility] Intervention and counseling on cessation of tobacco use, 3-10 minutes Discussed medication and nicotine replacement for tobacco cessation Last Documented On 3 1:13PM ; [facility] Education and Decision Aids were provided during visit for: [facility] encouraged patient to ut ilize positive supports and coping skills. ~[facility] encouraged patient to contact [facility] if they need any additional support or resources. ~ Last Documented On 3 10:03PM ; [facility] Discussed nutritional needs teach healthy choices including fruits and vegetables Last Documented On 3 10:23AM ; [facility] Patient education about a pr oper diet 36.7 Last Documented On 3 10:23AM ; [facility] Patient education about phys ical activity benefits Last Documented On 3 1:07PM ; [facility] Patient education about medi cation Last Documented On 3 1:07PM ; [facility] Patient education about ment al health Last Documented On 3 1:07PM ; [facility] Discussed concerns about exe rcise : promote physical activity Last Documented On 3 10:23AM ; [facility] introduced patient to [facility] integrated model of care. ~P offered active and supportive listening, normalized emotions and feelings, and processed current stressors. ~Discussed healthy coping skills and positive supports in patient's life. ~Discussed healthy lifestyle behaviors. ~ Last Documented On 3 12:10AM ; [facility] Discussed nutritional needs 36 teach healthy choices including fruits and vegetables Last Documented On 3 12:20PM ; [facility] Patient education about a pr oper diet 36 Last Documented On 3 12:20PM ; [facility] Discussed concerns about exe rcise : promote physical activity Last Documented On 3 12:20PM ; [facility] Referred Patient to a Diabet es Self-Management Program Last Documented On 3 1:46PM ; [facility] Work Phone: 1(958) 616-551506-22-2023 Evaluation note Includes: Assessments for all patient encounters Findings Encounter Date Hyperlipidemia Nurse Visit with Latia MAYORGA 11/08/2022 Last Documented On 3 2:16PM ; [facility] Venipuncture was performed Nurse Visit with Kathia Sparks [facility] 11/08/2022 Last Documented On 3 2:16PM ; [facility] [Z68.36 - Body mass index [B SD] 36.0-36.9, adult] assessment of body mass index Medical Established Patient with Latia Sparks PULL OVER 08/02/2022 Last Documented On 3 1:36PM ; [facility] Intervention and counseling on cessation of tobacco use, 3-10 minutes Discussed medication and nicotine replacement for tobacco cessation Medical Established Patient with Latia Sparks [facility] 08/02/2022 Last Documented On 3 1:36PM ; [facility] Visit for: person consulting for explanation of examination or test findings Medical Established Patient with Latia Sparks PULL OVER 08/02/2022 Last Documented On 3 1:36PM ; [facility] Generalized anxiety disorder BH Establis hed Patient with Cinthia Stone ELECTRICIAN'S ASSISTANT-S 07/23/2022 Last Documented On 3 12:17AM ; [facility] Intervention and counseling on cessation of tobacco use, 3-10 minutes Discussed medication and nicotine replacement for tobacco cessation Established Patient with Cinthia Stone ELECTRICIAN'S ASSISTANT-S 07/23/2022 Last Documented On 3 12:17AM ; [facility] Moderate recurrent major depression E stablished Patient with Cinthia Stone ELECTRICIAN'S ASSISTANT-S 07/23/2022 Last Documented On 3 12:17AM ; [facility] Nicotine dependence Established Patient with Cinthia Stone ELECTRICIAN'S ASSISTANT-S 07/23/2022 Last Documented On 3 12:17AM ; [facility] Primary insomnia Established Patient with Deysi pugh Stone ELECTRICIAN'S ASSISTANT-S 07/23/2022 Last Documented On 3 12:17AM ; [facility] [Z68.36 - Body mass index [B SD] 36.0-36.9, adult] assessment of body mass index Medical New Patient with Latia Sparks PULL OVER 07/23/2022 Last Documented On 3 2:32PM ; [facility] Diabetes Risk Test Score was nine score 07/23/2022 Medical New Patient with Latia Sparks PULL OVER 07/23/2022 Last Documented On 3 2:32PM ; [facility] Intervention and counseling on cessation of tobacco use, 3-10 minutes Discussed medication and nicotine replacement for tobacco cessation Medical New Patient with Latia Sparks PULL OVER 07/23/2022 Last Documented On 3 2:32PM ; [facility] Screening for Hep C Medical New Patient with Nad yelitza Sparks PULL OVER 07/23/2022 Last Documented On 3 2:32PM ; [facility] Screening for HIV Medical New Patient with Hiren a Sparks PULL OVER 07/23/2022 Last Documented On 3 2:32PM ; [facility] Venipuncture was performed Medical New Patient w dmitry Farooqahim [facility] 07/23/2022 Last Documented On 3 2:32PM ; [facility] Visit for routine adult H&P without abnormal findings Medical New Patient with Latia Sparks PULL OVER 07/23/2022 Last Documented On 3 2:32PM ; [facility] Work Phone: 1(432) 399-936106-22-2023 Evaluation note Includes: Assessments for all patient encounters Findings Encounter Date Generalized anxiety disorder BH Establis hed Patient with Janinasam Christianson ELECTRICIAN'S ASSISTANT-S 11/08/2022 Last Documented On 3 10:03PM ; [facility] Hyperlipidemia Nurse Visit with Latia Sparks [facility] 11/08/2022 Last Documented On 3 2:16PM ; [facility] Venipuncture was performed Nurse Visit with Kathia Hoffmanim [facility] 11/08/2022 Last Documented On 3 2:16PM ; [facility] [Z68.36 - Body mass index [B SD] 36.0-36.9, adult] assessment of body mass index Medical Established Patient with Latia Sparks PULL OVER 08/02/2022 Last Documented On 3 1:36PM ; [facility] Intervention and counseling on cessation of tobacco use, 3-10 minutes Discussed medication and nicotine replacement for tobacco cessation Medical Established Patient with Latia Hoffmanim PULL OVER 08/02/2022 Last Documented On 3 1:36PM ; [facility] Visit for: person consulting for explanation of examination or test findings Medical Established Patient with Latia Hoffmanim PULL OVER 08/02/2022 Last Documented On 3 1:36PM ; [facility] Generalized anxiety disorder Establis hed Patient with Cinthia Stone ELECTRICIAN'S ASSISTANT-S 07/23/2022 Last Documented On 3 12:17AM ; [facility] Intervention and counseling on cessation of tobacco use, 3-10 minutes Discussed medication and nicotine replacement for tobacco cessation Established Patient with Cinthia Stone ELECTRICIAN'S ASSISTANT-S 07/23/2022 Last Documented On 3 12:17AM ; [facility] Moderate recurrent major depression E stablished Patient with Cinthia Stone ELECTRICIAN'S ASSISTANT-S 07/23/2022 Last Documented On 3 12:17AM ; [facility] Nicotine dependence Established Patient with Cinthia Stone ELECTRICIAN'S ASSISTANT-S 07/23/2022 Last Documented On 3 12:17AM ; [facility] Primary insomnia Established Patient with Deysi pugh Stone ELECTRICIAN'S ASSISTANT-S 07/23/2022 Last Documented On 3 12:17AM ; [facility] [Z68.36 - Body mass index [B SD] 36.0-36.9, adult] assessment of body mass index Medical New Patient with Latia Sparks PULL OVER 07/23/2022 Last Documented On 3 2:32PM ; [facility] Diabetes Risk Test Score was nine score 07/23/2022 Medical New Patient with Latia Hoffmanim PULL OVER 07/23/2022 Last Documented On 3 2:32PM ; [facility] Intervention and counseling on cessation of tobacco use, 3-10 minutes Discussed medication and nicotine replacement for tobacco cessation Medical New Patient with Latia Hoffmanim PULL OVER 07/23/2022 Last Documented On 3 2:32PM ; [facility] Screening for Hep C Medical New Patient with Nad yelitza Sparks [facility] 07/23/2022 Last Documented On 3 2:32PM ; [facility] Screening for HIV Medical New Patient with Hiren Sparks PULL OVER 07/23/2022 Last Documented On 3 2:32PM ; [facility] Venipuncture was performed Medical New Patient w dmitry Sparks [facility] 07/23/2022 Last Documented On 3 2:32PM ; [facility] Visit for routine adult H&P without abnormal findings Medical New Patient with Latia Sparks PULL OVER 07/23/2022 Last Documented On 3 2:32PM ; [facility] Work Phone: 1(580) 390-408206-22-2023 Progress note* Progress note Date Encounter Last Documented by 11/08/2022 Nurse Visit Last documented on 11/08/2022; 2:16 PM, Latia Sparks [facility]; [facility] Active Problems & Conditions - [...] previous hospitalizations. A recent examination by an feed handler 07/21/2022. Immunization History: Recent immunization for flu. 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 [...] previous hospitalizations. A recent examination by an feed handler 07/21/2022. Immunization History: Recent immunization for flu. [...] - Collaborated with patient and provider: Counseling/Education [facility] encouraged patient to utilize positive supports and coping skills. P encouraged patient to contact [facility] if they need any additional support or resources. . Plan [facility] to follow up with patient at [...] + 0 pt : Not at all. [facility]06-22-2023 Instructions Includes: Instructions for all patient encounters Instructions to patient Intervention and counseling on cessation of tobacco use, 3-10 minutes Discussed medication and nicotine replacement for tobacco cessation Last Documented On 3 1:05PM ; [facility] Intervention and counseling on cessation of tobacco use, 3-10 minutes Discussed medication and nicotine replacement for tobacco cessation Last Documented On 3 1:02PM ; [facility] Intervention and counseling on cessation of tobacco use, 3-10 minutes Discussed medication and nicotine replacement for tobacco cessation Last Documented On 3 1:13PM ; [facility] Education and Decision Aids were provided during visit for: Discussed nutritional needs teach healthy choices including fruits and vegetables Last Documented On 3 10:23AM ; [facility] Patient education about a pr oper diet 36.7 Last Documented On 3 10:23AM ; [facility] Patient education about phys ical activity benefits Last Documented On 3 1:07PM ; [facility] Patient education about medi cation Last Documented On 3 1:07PM ; [facility] Patient education about ment al health Last Documented On 3 1:07PM ; [facility] Discussed concerns about exe rcise : promote physical activity Last Documented On 3 10:23AM ; [facility] introduced patient to [facility] integrated model of care. ~P offered active and supportive listening, normalized emotions and feelings, and processed current stressors. ~Discussed healthy coping skills and positive supports in patient's life. ~Discussed healthy lifestyle behaviors. ~ Last Documented On 3 12:10AM ; [facility] Discussed nutritional needs 36 teach healthy choices including fruits and vegetables Last Documented On 3 12:20PM ; [facility] Patient education about a pr oper diet 36 Last Documented On 3 12:20PM ; [facility] Discussed concerns about exe rcise : promote physical activity Last Documented On 3 12:20PM ; [facility] Referred Patient to a Diabet es Self-Management Program Last Documented On 3 1:46PM ; [facility] Work Phone: 1(432) 361-293504-11-2023 NoteCONSULTATION CONSULTATION DATE: 08/28/2022 TO: Geraldo Prado [...] the lower extremities MEDICATION: Current medication includes Ranger 5 mg b.i.d. p.r.n. She reports that she has not been taking her Xanax. She reports the Ranger does seem to increase in her quality [...] our patients to inform us about any adjo-vyv-mjugzml medications or herbal remedies/nutritional supplements/alternative remedies. 2. [...] treatment options with their primary care provider.[facility] [id number] Progress note* Progress note Date Encounter Last Documented by 08/02/2022 Medical Established Patient Last documented on 08/02/2022; 1:36 PM, Latia MAYORGA; [facility] Active Problems & Conditions - [...] Pt needs tresiba prescribed to the [facility] just for today. Referred Here [...] has been provided. The patient lives a snf, where food is cooking Current Medication - [...] previous hospitalizations. A recent examination by an feed handler 07/21/2022. Immunization History: Recent immunization for flu. [...] BP-Sitting R138/82 mmHg BP Cuff SizeLarge Pulse Rate-Ndjoqix51 bpm Pulse RhythmRegular Respiration Rate18 per min Temp-Ijjxwgbz84.5 F Qojmcs52 in Uzjoym252 lbs Body Mass Index36.7 kg/m2 Body Surface Area2 m2 Oxygen Wrrmexbkzi78 % O2 DeviceNone (Room Air) HsY282 % General Appearance: - Awake. - Alert. [...] and diastolic 80-89 mmHg diastolic 80-89 mmHg. [facility]03-16-2023 Instructions Includes: Instructions for all patient encounters Instructions to patient Intervention and counseling on cessation of tobacco use, 3-10 minutes Discussed medication and nicotine replacement for tobacco cessation Last Documented On 3 1:05PM ; [facility] Intervention and counseling on cessation of tobacco use, 3-10 minutes Discussed medication and nicotine replacement for tobacco cessation Last Documented On 3 1:02PM ; [facility] Intervention and counseling on cessation of tobacco use, 3-10 minutes Discussed medication and nicotine replacement for tobacco cessation Last Documented On 3 1:13PM ; [facility] Education and Decision Aids were provided during visit for: Discussed nutritional needs teach healthy choices including fruits and vegetables Last Documented On 3 10:23AM ; [facility] Patient education about a pr oper diet 36.7 Last Documented On 3 10:23AM ; [facility] Patient education about phys ical activity benefits Last Documented On 3 1:07PM ; [facility] Patient education about medi cation Last Documented On 3 1:07PM ; [facility] Patient education about ment al health Last Documented On 3 1:07PM ; [facility] Discussed concerns about exe rcise : promote physical activity Last Documented On 3 10:23AM ; [facility] introduced patient to [facility] integrated model of care. ~[facility] offered active and supportive listening, normalized emotions and feelings, and processed current stressors. ~Discussed healthy coping skills and positive supports in patient's life. ~Discussed healthy lifestyle behaviors. ~ Last Documented On 3 12:10AM ; [facility] Discussed nutritional needs 36 teach healthy choices including fruits and vegetables Last Documented On 3 12:20PM ; [facility] Patient education about a pr oper diet 36 Last Documented On 3 12:20PM ; [facility] Discussed concerns about exe rcise : promote physical activity Last Documented On 3 12:20PM ; [facility] Referred Patient to a Diabet es Self-Management Program Last Documented On 3 1:46PM ; [facility] Work Phone: 1(685) 109-595803-16-2023 Instructions Includes: Instructions for all patient encounters Instructions to patient Intervention and counseling on cessation of tobacco use, 3-10 minutes Discussed medication and nicotine replacement for tobacco cessation Last Documented On 3 1:05PM ; [facility] Intervention and counseling on cessation of tobacco use, 3-10 minutes Discussed medication and nicotine replacement for tobacco cessation Last Documented On 3 1:02PM ; [facility] Intervention and counseling on cessation of tobacco use, 3-10 minutes Discussed medication and nicotine replacement for tobacco cessation Last Documented On 3 1:13PM ; [facility] Education and Decision Aids were provided during visit for: Discussed nutritional needs teach healthy choices including fruits and vegetables Last Documented On 3 10:23AM ; [facility] Patient education about a pr oper diet 36.7 Last Documented On 3 10:23AM ; [facility] Patient education about phys ical activity benefits Last Documented On 3 1:07PM ; [facility] Patient education about medi cation Last Documented On 3 1:07PM ; [facility] Patient education about ment al health Last Documented On 3 1:07PM ; [facility] Discussed concerns about exe rcise : promote physical activity Last Documented On 3 10:23AM ; [facility] introduced patient to [facility] integrated model of care. ~P offered active and supportive listening, normalized emotions and feelings, and processed current stressors. ~Discussed healthy coping skills and positive supports in patient's life. ~Discussed healthy lifestyle behaviors. ~ Last Documented On 3 12:10AM ; [facility] Discussed nutritional needs 36 teach healthy choices including fruits and vegetables Last Documented On 3 12:20PM ; [facility] Patient education about a pr oper diet 36 Last Documented On 3 12:20PM ; [facility] Discussed concerns about exe rcise : promote physical activity Last Documented On 3 12:20PM ; [facility] Referred Patient to a Diabet es Self-Management Program Last Documented On 3 1:46PM ; [facility] Work Phone: [phone]) 192-291103-07-2023 History general Narrative - Reported Includes: Medical History in patient's chart Description Last Updated No previous suicide attempt 07/24/2022 Last Documented On 3 12:17AM ; [facility] A recent examination by an ophthalmologi st 07/21/2022 07/23/2022 Last Documented On 3 2:32PM ; [facility] History of diabetes mellitus 07/23/2022 Last Documented On 3 2:32PM ; [facility] History of systemic hypertension 023 Last Documented On 3 2:32PM ; [facility] No previous hospitalizations 07/23/2022 Last Documented On 3 2:32PM ; [facility] Recent immunization for flu 07/23/2022 Last Documented On 3 2:32PM ; [facility] Work Phone: [phone]) [phone] History general Narrative - Reported Includes: Medical History in patient's chart Description Last Updated No previous suicide attempt 07/24/2022 Last Documented On 3 12:17AM ; [facility] A recent examination by an ophthalmologi st 07/21/2022 07/23/2022 Last Documented On 3 2:32PM ; [facility] History of diabetes mellitus 07/23/2022 Last Documented On 3 2:32PM ; [facility] History of systemic hypertension 023 Last Documented On 3 2:32PM ; [facility] No previous hospitalizations 07/23/2022 Last Documented On 3 2:32PM ; [facility] Recent immunization for flu 07/23/2022 Last Documented On 3 2:32PM ; [facility] Work Phone: 1(448) 668-821003-07-2023 History general Narrative - Reported Includes: Medical History in patient's chart Description Last Updated No previous suicide attempt 07/24/2022 Last Documented On 3 12:17AM ; [facility] A recent examination by an ophthalmologi st 07/21/2022 07/23/2022 Last Documented On 3 2:32PM ; [facility] History of diabetes mellitus 07/23/2022 Last Documented On 3 2:32PM ; [facility] History of systemic hypertension 023 Last Documented On 3 2:32PM ; [facility] No previous hospitalizations 07/23/2022 Last Documented On 3 2:32PM ; [facility] Recent immunization for flu 07/23/2022 Last Documented On 3 2:32PM ; [facility] Work Phone: [phone]) 441-791703-07-2023 History general Narrative - Reported Includes: Medical History in patient's chart Description Last Updated No previous suicide attempt 07/24/2022 Last Documented On 3 12:17AM ; [facility] A recent examination by an ophthalmologi st 07/21/2022 07/23/2022 Last Documented On 3 2:32PM ; [facility] History of diabetes mellitus 07/23/2022 Last Documented On 3 2:32PM ; [facility] History of systemic hypertension 023 Last Documented On 3 2:32PM ; [facility] No previous hospitalizations 07/23/2022 Last Documented On 3 2:32PM ; [facility] Recent immunization for flu 07/23/2022 Last Documented On 3 2:32PM ; [facility] Work Phone: 1(613) 474-690803-07-2023 History general Narrative - Reported Includes: Medical History in patient's chart Description Last Updated No previous suicide attempt 07/24/2022 Last Documented On 3 12:17AM ; [facility] A recent examination by an ophthalmologi st 07/21/2022 07/23/2022 Last Documented On 3 2:32PM ; [facility] History of diabetes mellitus 07/23/2022 Last Documented On 3 2:32PM ; [facility] History of systemic hypertension 023 Last Documented On 3 2:32PM ; [facility] No previous hospitalizations 07/23/2022 Last Documented On 3 2:32PM ; [facility] Recent immunization for flu 07/23/2022 Last Documented On 3 2:32PM ; [facility] Work Phone: [phone]) [phone] History general Narrative - Reported Includes: Medical History in patient's chart Description Last Updated No previous suicide attempt 07/24/2022 Last Documented On 3 12:17AM ; [facility] A recent examination by an ophthalmologi st 07/21/2022 07/23/2022 Last Documented On 3 2:32PM ; [facility] History of diabetes mellitus 07/23/2022 Last Documented On 3 2:32PM ; [facility] History of systemic hypertension 023 Last Documented On 3 2:32PM ; [facility] No previous hospitalizations 07/23/2022 Last Documented On 3 2:32PM ; [facility] Recent immunization for flu 07/23/2022 Last Documented On 3 2:32PM ; [facility] Work Phone: [phone]) [phone] Evaluation note Includes: Assessments for all patient encounters Findings Encounter Date Generalized anxiety disorder Established Shirley ent with Cinthia Farfan ELECTRICIAN'S ASSISTANT 07/23/2022 Last Documented On 3 1:10PM ; [facility] Intervention and counseling on cessation of tobacco use, 3-10 minutes Discussed medication and nicotine replacement for tobacco cessation Established Patient with Cinthia Stone ELECTRICIAN'S ASSISTANT 07/23/2022 Last Documented On 3 1:10PM ; [facility] Moderate recurrent major depression BH E stablished Patient with Cinthia Stone ELECTRICIAN'S ASSISTANT 07/23/2022 Last Documented On 3 1:10PM ; [facility] Nicotine dependence BH Established Patient with Cinthia Stone ELECTRICIAN'S ASSISTANT 07/23/2022 Last Documented On 3 1:10PM ; [facility] Primary insomnia BH Established Patient with Deysi pugh Stone ELECTRICIAN'S ASSISTANT 07/23/2022 Last Documented On 3 1:10PM ; [facility] [Z68.36 - Body mass index [B SD] 36.0-36.9, adult] assessment of body mass index Medical New Patient with Latia Sparks PULL OVER 07/23/2022 Last Documented On 3 2:32PM ; [facility] Diabetes Risk Test Score was nine score 07/23/2022 Medical New Patient with Latia Sparks PULL OVER 07/23/2022 Last Documented On 3 2:32PM ; [facility] Intervention and counseling on cessation of tobacco use, 3-10 minutes Discussed medication and nicotine replacement for tobacco cessation Medical New Patient with Latia Sparks PULL OVER 07/23/2022 Last Documented On 3 2:32PM ; [facility] Screening for Hep C Medical New Patient with Nad yelitza Hoffmanim PULL OVER 07/23/2022 Last Documented On 3 2:32PM ; [facility] Screening for HIV Medical New Patient with Hiren Sparks PULL OVER 07/23/2022 Last Documented On 3 2:32PM ; [facility] Venipuncture was performed Medical New Patient w dmitry Sparks PULL OVER 07/23/2022 Last Documented On 3 2:32PM ; [facility] Visit for routine adult H&P without abnormal findings Medical New Patient with Latia Sparks PULL OVER 07/23/2022 Last Documented On 3 2:32PM ; [facility] Work Phone: [phone]) 174-578003-06-2023 Evaluation note Includes: Assessments for all patient encounters Findings Encounter Date Generalized anxiety disorder BH Established Shirley ent with Cinthia Stone ELECTRICIAN'S ASSISTANT 07/23/2022 Last Documented On 3 12:17AM ; [facility] Intervention and counseling on cessation of tobacco use, 3-10 minutes Discussed medication and nicotine replacement for tobacco cessation BH Established Patient with Cinthia Stone ELECTRICIAN'S ASSISTANT 07/23/2022 Last Documented On 3 12:17AM ; [facility] Moderate recurrent major depression BH E stablished Patient with Cinthia Stone ELECTRICIAN'S ASSISTANT 07/23/2022 Last Documented On 3 12:17AM ; [facility] Nicotine dependence BH Established Patient with Cinthia Stone ELECTRICIAN'S ASSISTANT 07/23/2022 Last Documented On 3 12:17AM ; [facility] Primary insomnia BH Established Patient with Deysi Farfan ELECTRICIAN'S ASSISTANT 07/23/2022 Last Documented On 3 12:17AM ; [facility] [Z68.36 - Body mass index [B SD] 36.0-36.9, adult] assessment of body mass index Medical New Patient with Latia Sparks PULL OVER 07/23/2022 Last Documented On 3 2:32PM ; [facility] Diabetes Risk Test Score was nine score 07/23/2022 Medical New Patient with Latia Bridger PULL OVER 07/23/2022 Last Documented On 3 2:32PM ; [facility] Intervention and counseling on cessation of tobacco use, 3-10 minutes Discussed medication and nicotine replacement for tobacco cessation Medical New Patient with Latia Sparks PULL OVER 07/23/2022 Last Documented On 3 2:32PM ; [facility] Screening for Hep C Medical New Patient with Nad yelitza Sparks PULL OVER 07/23/2022 Last Documented On 3 2:32PM ; [facility] Screening for HIV Medical New Patient with Hiren a Sparks PULL OVER 07/23/2022 Last Documented On 3 2:32PM ; [facility] Venipuncture was performed Medical New Patient w dmitry Sparks PULL OVER 07/23/2022 Last Documented On 3 2:32PM ; [facility] Visit for routine adult H&P without abnormal findings Medical New Patient with Latia Bridger PULL OVER 07/23/2022 Last Documented On 3 2:32PM ; [facility] Work Phone: [phone]) [phone] Progress note* Progress note Date Encounter Last Documented by 07/23/2022 Medical New Patient Last sydni elkins on 07/23/2022; 2:32 PM, Latia Sparks [facility]; [facility] Active Problems & Conditions - [...] A 72 year old female presented to [facility]. Resides at [facility]. Medical history is significant for [...] previous hospitalizations. A recent examination by an feed handler 07/21/2022. Immunization History: Recent immunization for flu. [...] BP-Sitting R168/92 mmHg BP Cuff SizeLarge Pulse Rate-Cljkteh105 bpm Pulse RhythmRegular Respiration Rate21 per min Temp-Oral98.3 F Ysawae11 in Cufaqc396 lbs Body Mass Index36 kg/m2 Body Surface Area2 m2 Oxygen Umabuonvin14 % O2 DeviceNone (Room Air) DnP176 % - Vitals taken 07/23/2022 01:38 pm [...] 60 years or older (3 points) [Pre-DM]. [facility]03-06-2023 Progress note* Progress note Date Encounter Last Documented by 07/23/2022 Established Patient Last docu mented on 07/24/2022; 12:17 AM, Cinthia PARRISH; [facility] Active Problems & Conditions - [...] compliant and implementing healthy coping skills Subjective [facility] reviewed PHQ-9 score of 9 and [...] to stop smoking offered Quit Line information [facility]. [facility] offered active and supportive listening, normalized [...] needed clothing: No, unable to get needed school childcare attendant: No, unable to get needed phone: [...] + 0 pt : Not at all. [facility]03-06-2023 Progress note* Progress note Date Encounter Last Documented by 07/23/2022 Established Patient Last docu mented on 07/24/2022; 12:17 AM, Cinthia FRIED; [facility] Active Problems & Conditions - [...] to stop smoking offered Quit Line information [facility] introduced patient to [facility] integrated model of care. [facility] offered active [...] needed clothing: No, unable to get needed school childcare attendant: No, unable to get needed phone: [...] + 0 pt : Not at all. [facility]03-06-2023 Reason for referral (narrative)* Date Encounter Description Provider Reason for Referral 07/23/22 Established Patient Cinthia PARRISH Referral To Mental Health Team [facility] Work Phone: 1(355) 113-118003-06-2023 Reason for referral (narrative)* Date Encounter Description Provider Reason for Referral 07/23/22 Established Patient Cinthia PARRISH- S Referral To Mental Health Team [facility] Work Phone: 1(555) 172-770903-06-2023 Instructions Includes: Instructions for all patient encounters Instructions to patient Intervention and counseling on cessation of tobacco use, 3-10 minutes Discussed medication and nicotine replacement for tobacco cessation Last Documented On 1:02PM ; [facility] Intervention and counseling on cessation of tobacco use, 3-10 minutes Discussed medication and nicotine replacement for tobacco cessation Last Documented On 3 1:13PM ; [facility] Education and Decision Aids were provided during visit for: Discussed nutritional needs 36 teach healthy choices including fruits and vegetables Last Documented On 3 12:20PM ; [facility] Patient education about a pr oper diet 36 Last Documented On 3 12:20PM ; [facility] Discussed concerns about exe rcise : promote physical activity Last Documented On 3 12:20PM ; [facility] Referred Patient to a Diabet es Self-Management Program Last Documented On 3 1:46PM ; [facility] Work Phone: 1([phone] 867-329103-06-2023 Instructions Includes: Instructions for all patient encounters Instructions to patient Intervention and counseling on cessation of tobacco use, 3-10 minutes Discussed medication and nicotine replacement for tobacco cessation Last Documented On 3 1:02PM ; [facility] Intervention and counseling on cessation of tobacco use, 3-10 minutes Discussed medication and nicotine replacement for tobacco cessation Last Documented On 3 1:13PM ; [facility] Education and Decision Aids were provided during visit for: BHP introduced patient to [facility] integrated model of care. ~BHP offered active and supportive listening, normalized emotions and feelings, and processed current stressors. ~Discussed healthy coping skills and positive supports in patient's life. ~Discussed healthy lifestyle behaviors. ~ Last Documented On 3 12:10AM ; [facility] Discussed nutritional needs 36 teach healthy choices including fruits and vegetables Last Documented On 3 12:20PM ; [facility] Patient education about a pr oper diet 36 Last Documented On 3 12:20PM ; [facility] Discussed concerns about exe rcise : promote physical activity Last Documented On 3 12:20PM ; [facility] Referred Patient to a Diabet es Self-Management Program Last Documented On 3 1:46PM ; [facility] Work Phone: 1(217) 843-683103-04-2023 History general Narrative - Reported Includes: Medical History in patient's chart Description Last Updated A recent examination by an ophthalmologi st 07/21/2022 07/23/2022 Last Documented On 3 2:32PM ; [facility] History of diabetes mellitus 07/23/2022 Last Documented On 3 2:32PM ; [facility] History of systemic hypertension 023 Last Documented On 3 2:32PM ; [facility] No previous hospitalizations 07/23/2022 Last Documented On 3 2:32PM ; [facility] Recent immunization for flu 07/23/2022 Last Documented On 3 2:32PM ; [facility] Work Phone: 1(226) 623-707603-04-2023 History general Narrative - Reported Includes: Medical History in patient's chart Description Last Updated A recent examination by an ophthalmologi st 07/21/2022 results in eye 06/04/2023 Last Documented On 4 11:53AM ; [facility] No previous hospitalizations 05/10/2023 Last Documented On 3 10:52AM ; [facility] Recent eye exam showed no apparent retin opathy present 05/10/2023 Last Documented On 3 10:52AM ; [facility] Not planning to have a baby in the next 12 months 04/18/2023 Last Documented On 3 10:11PM ; [facility] No previous suicide attempt 07/24/2022 Last Documented On 3 12:17AM ; [facility] History of diabetes mellitus 07/23/2022 Last Documented On 3 2:32PM ; [facility] History of systemic hypertension 023 Last Documented On 3 2:32PM ; [facility] Recent immunization for flu 07/23/2022 Last Documented On 3 2:32PM ; [facility] Work Phone: 1(407) 284-710202-28-2023 NoteCONSULTATION CONSULTATION DATE: 07/17/2022 TO: Dr. Prado [...] as tolerated. To reduce the use of Ranger from 5 mg pills q.i.d. to 5 mg pill one b.i.d. as tolerated. Again, I have requested physical therapy for the patient as well. I have gone over the details with the patient. All her questions answered. She agreed to proceed with the outlined plan.[facility] [id number] Evaluation note* Encounter Date Diagnosis Assessment Notes [...] understanding and is agreeable to treatment plan [facility] Other Evaluation noteNo assessment information available [facility] Work Phone: Evaluation note Includes: Assessments for all patient encounters Findings Encounter Date [Z68.36 - Body mass index [B SD] 36.0-36.9, adult] assessment of body mass index Medical Established Patient with Latia Sparks PULL OVER 08/02/2022 Last Documented On 3 1:35PM ; [facility] Intervention and counseling on cessation of tobacco use, 3-10 minutes Discussed medication and nicotine replacement for tobacco cessation Medical Established Patient with Latia Sparks PULL OVER 08/02/2022 Last Documented On 3 1:35PM ; [facility] Visit for: person consulting for explanation of examination or test findings Medical Established Patient with Latia Sparks PULL OVER 08/02/2022 Last Documented On 3 1:35PM ; [facility] Generalized anxiety disorder Established Shirley ent with Cinthia Stone ELECTRICIAN'S ASSISTANT 07/23/2022 Last Documented On 3 12:17AM ; [facility] Intervention and counseling on cessation of tobacco use, 3-10 minutes Discussed medication and nicotine replacement for tobacco cessation Established Patient with Cinthia Stone ELECTRICIAN'S ASSISTANT 07/23/2022 Last Documented On 3 12:17AM ; [facility] Moderate recurrent major depression E stablished Patient with Cinthia Stone ELECTRICIAN'S ASSISTANT 07/23/2022 Last Documented On 3 12:17AM ; [facility] Nicotine dependence Established Patient with Cinthia Stone ELECTRICIAN'S ASSISTANT 07/23/2022 Last Documented On 3 12:17AM ; [facility] Primary insomnia BH Established Patient with Deysi Farfan ELECTRICIAN'S ASSISTANT 07/23/2022 Last Documented On 3 12:17AM ; [facility] [Z68.36 - Body mass index [B SD] 36.0-36.9, adult] assessment of body mass index Medical New Patient with Latia Sparks PULL OVER 07/23/2022 Last Documented On 3 2:32PM ; [facility] Diabetes Risk Test Score was nine score 07/23/2022 Medical New Patient with Latia Hoffmanim PULL OVER 07/23/2022 Last Documented On 3 2:32PM ; [facility] Intervention and counseling on cessation of tobacco use, 3-10 minutes Discussed medication and nicotine replacement for tobacco cessation Medical New Patient with Latia Hoffmanim PULL OVER 07/23/2022 Last Documented On 3 2:32PM ; [facility] Screening for Hep C Medical New Patient with Nad yelitza Bridger PULL OVER 07/23/2022 Last Documented On 3 2:32PM ; [facility] Screening for HIV Medical New Patient with Hiren a Sparks PULL OVER 07/23/2022 Last Documented On 3 2:32PM ; [facility] Venipuncture was performed Medical New Patient w dmitry Sparks PULL OVER 07/23/2022 Last Documented On 3 2:32PM ; [facility] Visit for routine adult H&P without abnormal findings Medical New Patient with Latia Sparks PULL OVER 07/23/2022 Last Documented On 3 2:32PM ; [facility] Work Phone: Evaluation note Includes: Assessments for all patient encounters Findings Encounter Date [Z68.36 - Body mass index [B SD] 36.0-36.9, adult] assessment of body mass index Medical Established Patient with Latia Sparks PULL OVER 08/02/2022 Last Documented On 3 1:36PM ; [facility] Intervention and counseling on cessation of tobacco use, 3-10 minutes Discussed medication and nicotine replacement for tobacco cessation Medical Established Patient with Latia Sparks PULL OVER 08/02/2022 Last Documented On 3 1:36PM ; [facility] Visit for: person consulting for explanation of examination or test findings Medical Established Patient with Latia Sparks PULL OVER 08/02/2022 Last Documented On 3 1:36PM ; [facility] Generalized anxiety disorder BH Established Shirley ent with Cinthia Stone ELECTRICIAN'S ASSISTANT 07/23/2022 Last Documented On 3 12:17AM ; [facility] Intervention and counseling on cessation of tobacco use, 3-10 minutes Discussed medication and nicotine replacement for tobacco cessation Established Patient with Cinthia Stone ELECTRICIAN'S ASSISTANT 07/23/2022 Last Documented On 3 12:17AM ; [facility] Moderate recurrent major depression E stablished Patient with Cinthia Stone ELECTRICIAN'S ASSISTANT 07/23/2022 Last Documented On 3 12:17AM ; [facility] Nicotine dependence Established Patient with Cinthia Stone ELECTRICIAN'S ASSISTANT 07/23/2022 Last Documented On 3 12:17AM ; [facility] Primary insomnia Established Patient with Deysi pugh Stone ELECTRICIAN'S ASSISTANT 07/23/2022 Last Documented On 3 12:17AM ; [facility] [Z68.36 - Body mass index [B SD] 36.0-36.9, adult] assessment of body mass index Medical New Patient with Latia Sparks PULL OVER 07/23/2022 Last Documented On 3 2:32PM ; [facility] Diabetes Risk Test Score was nine score 07/23/2022 Medical New Patient with Latia Sparks PULL OVER 07/23/2022 Last Documented On 3 2:32PM ; [facility] Intervention and counseling on cessation of tobacco use, 3-10 minutes Discussed medication and nicotine replacement for tobacco cessation Medical New Patient with Latia Sparks PULL OVER 07/23/2022 Last Documented On 3 2:32PM ; [facility] Screening for Hep C Medical New Patient with Nad yelitza Sparks PULL OVER 07/23/2022 Last Documented On 3 2:32PM ; [facility] Screening for HIV Medical New Patient with Hiren a Sparks PULL OVER 07/23/2022 Last Documented On 3 2:32PM ; [facility] Venipuncture was performed Medical New Patient w ith Latia Sparks PULL OVER 07/23/2022 Last Documented On 3 2:32PM ; [facility] Visit for routine adult H&P without abnormal findings Medical New Patient with Latia Sparks PULL OVER 07/23/2022 Last Documented On 3 2:32PM ; [facility] Work Phone: Evaluation note Includes: Assessments for all patient encounters Findings Encounter Date [Z68.35 - Body mass index [B SD] 35.0-35.9, adult] assessment of body mass index Medical Established Patient with Latia Sparks PULL OVER 05/10/2023 Last Documented On 3 10:52AM ; [facility] Nicotine dependence Medical Established Patient with Latia Sparks PULL OVER 05/10/2023 Last Documented On 3 10:52AM ; [facility] Visit for: preoperative exam Medical Est ablished Patient with Latia Sparks PULL OVER 05/10/2023 Last Documented On 3 10:52AM ; [facility] Moderate recurrent major depression BH E stablished Patient with 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 04/18/2023 Last Documented On 3 1:42PM ; [facility] [Z68.35 - Body mass index [B SD] 35.0-35.9, adult] assessment of body mass index Medical Established Patient with Latia Sparks PULL OVER 04/18/2023 Last Documented On 3 10:11PM ; [facility] Nicotine dependence Medical Established Patient with Latia Sparks PULL OVER 04/18/2023 Last Documented On 3 10:11PM ; [facility] 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 Medical Established Patient with Latia Sparks PULL OVER 04/18/2023 Last Documented On 3 10:11PM ; [facility] Assessment of body mass index Medical Es tablished Patient with Latia Hoffmanim PULL OVER 11/15/2022 Last Documented On 3 2:53PM ; [facility] Generalized anxiety disorder BH Establis hed Patient with 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 11/08/2022 Last Documented On 3 10:03PM ; [facility] Hyperlipidemia Nurse Visit with Latia Sparks [facility] 11/08/2022 Last Documented On 3 2:16PM ; [facility] Venipuncture was performed Nurse Visit with Kathia Sparks [facility] 11/08/2022 Last Documented On 3 2:16PM ; [facility] [Z68.36 - Body mass index [B SD] 36.0-36.9, adult] assessment of body mass index Medical Established Patient with Latia Hoffmanim PULL OVER 08/02/2022 Last Documented On 3 1:36PM ; [facility] Intervention and counseling on cessation of tobacco use, 3-10 minutes Discussed medication and nicotine replacement for tobacco cessation Medical Established Patient with Latia Hoffmanim PULL OVER 08/02/2022 Last Documented On 3 1:36PM ; [facility] Visit for: person consulting for explanation of examination or test findings Medical Established Patient with Latia Hoffmanim PULL OVER 08/02/2022 Last Documented On 3 1:36PM ; [facility] Generalized anxiety disorder BH Establis hed Patient with Cinthia Stone ELECTRICIAN'S ASSISTANT-S 07/23/2022 Last Documented On 3 12:17AM ; [facility] Intervention and counseling on cessation of tobacco use, 3-10 minutes Discussed medication and nicotine replacement for tobacco cessation BH Established Patient with Cinthia Stone ELECTRICIAN'S ASSISTANT-S 07/23/2022 Last Documented On 3 12:17AM ; [facility] Moderate recurrent major depression BH E stablished Patient with Cinthia Stone ELECTRICIAN'S ASSISTANT-S 07/23/2022 Last Documented On 3 12:17AM ; [facility] Nicotine dependence BH Established Patient with Cinthia Stone ELECTRICIAN'S ASSISTANT-S 07/23/2022 Last Documented On 3 12:17AM ; [facility] Primary insomnia BH Established Patient with Deysi pugh Stone ELECTRICIAN'S ASSISTANT-S 07/23/2022 Last Documented On 3 12:17AM ; [facility] [Z68.36 - Body mass index [B SD] 36.0-36.9, adult] assessment of body mass index Medical New Patient with Latia Sparks PULL OVER 07/23/2022 Last Documented On 3 2:32PM ; [facility] Diabetes Risk Test Score was nine score 07/23/2022 Medical New Patient with Latia Sparks PULL OVER 07/23/2022 Last Documented On 3 2:32PM ; [facility] Intervention and counseling on cessation of tobacco use, 3-10 minutes Discussed medication and nicotine replacement for tobacco cessation Medical New Patient with Latia Sparks PULL OVER 07/23/2022 Last Documented On 3 2:32PM ; [facility] Screening for Hep C Medical New Patient with Nad yelitza Sparks PULL OVER 07/23/2022 Last Documented On 3 2:32PM ; [facility] Screening for HIV Medical New Patient with Hiren a Sparks PULL OVER 07/23/2022 Last Documented On 3 2:32PM ; [facility] Venipuncture was performed Medical New Patient w dmitry Sparks PULL OVER 07/23/2022 Last Documented On 3 2:32PM ; [facility] Visit for routine adult H&P without abnormal findings Medical New Patient with Latia Hoffmanim PULL OVER 07/23/2022 Last Documented On 3 2:32PM ; [facility] Work Phone: Evaluation note* Diagnosis Preop examination- Primary Unspecified pre-operative examination Type 2 diabetes mellitus without complication, without long-term current use of insulin ([facility]) Hypertension, unspecified type Preop examination Unspecified pre-operative examination Type 2 diabetes mellitus without complication, without long-term current use of insulin ([facility]) Hypertension, unspecified type documented [facility] this [facility] Assessments for all patient encounters Findings Encounter Date [Z68.35 - Body mass index [B SD] 35.0-35.9, adult] assessment of body mass index Medical Established Patient with Latia Sparks PULL OVER 06/04/2023 Last Documented On 4 11:53AM ; [facility] Nicotine dependence Medical Established Patient with Latia Sparks PULL OVER 06/04/2023 Last Documented On 4 11:53AM ; [facility] [Z68.35 - Body mass index [B SD] 35.0-35.9, adult] assessment of body mass index Medical Established Patient with Latia Sparks PULL OVER 05/10/2023 Last Documented On 3 10:52AM ; [facility] Nicotine dependence Medical Established Patient with Latia Sparks PULL OVER 05/10/2023 Last Documented On 3 10:52AM ; [facility] Visit for: preoperative exam Medical Est ablished Patient with Latia Sparks PULL OVER 05/10/2023 Last Documented On 3 10:52AM ; [facility] Moderate recurrent major depression BH E stablished Patient with 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 04/18/2023 Last Documented On 3 1:42PM ; [facility] [Z68.35 - Body mass index [B SD] 35.0-35.9, adult] assessment of body mass index Medical Established Patient with Latia Sparks PULL OVER 04/18/2023 Last Documented On 3 10:11PM ; [facility] Nicotine dependence Medical Established Patient with Latia Sparks PULL OVER 04/18/2023 Last Documented On 3 10:11PM ; [facility] 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 Medical Established Patient with Latia Sparks PULL OVER 04/18/2023 Last Documented On 3 10:11PM ; [facility] Assessment of body mass index Medical Es tablished Patient with Latia Sparks PULL OVER 11/15/2022 Last Documented On 3 2:53PM ; [facility] Generalized anxiety disorder BH Establis hed Patient with 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 11/08/2022 Last Documented On 3 10:03PM ; [facility] Hyperlipidemia Nurse Visit with Latia Sparks [facility] 11/08/2022 Last Documented On 3 2:16PM ; [facility] Venipuncture was performed Nurse Visit with Kathia Sparks [facility] 11/08/2022 Last Documented On 3 2:16PM ; [facility] [Z68.36 - Body mass index [B SD] 36.0-36.9, adult] assessment of body mass index Medical Established Patient with Latia Sparks PULL OVER 08/02/2022 Last Documented On 3 1:36PM ; [facility] Intervention and counseling on cessation of tobacco use, 3-10 minutes Discussed medication and nicotine replacement for tobacco cessation Medical Established Patient with Latia Sparks [facility] 08/02/2022 Last Documented On 3 1:36PM ; [facility] Visit for: person consulting for explanation of examination or test findings Medical Established Patient with Latia Sparks [facility] 08/02/2022 Last Documented On 3 1:36PM ; [facility] Generalized anxiety disorder Establis hed Patient with Cinthia Stone ELECTRICIAN'S ASSISTANT-S 07/23/2022 Last Documented On 3 12:17AM ; [facility] Intervention and counseling on cessation of tobacco use, 3-10 minutes Discussed medication and nicotine replacement for tobacco cessation Established Patient with Cinthia Stone ELECTRICIAN'S ASSISTANT-S 07/23/2022 Last Documented On 3 12:17AM ; [facility] Moderate recurrent major depression E stablished Patient with Cinthia Stone ELECTRICIAN'S ASSISTANT-S 07/23/2022 Last Documented On 3 12:17AM ; [facility] Nicotine dependence Established Patient with Cinthia Stone ELECTRICIAN'S ASSISTANT-S 07/23/2022 Last Documented On 3 12:17AM ; [facility] Primary insomnia Established Patient with Deysi pugh Stone ELECTRICIAN'S ASSISTANT-S 07/23/2022 Last Documented On 3 12:17AM ; [facility] [Z68.36 - Body mass index [B SD] 36.0-36.9, adult] assessment of body mass index Medical New Patient with Latia Sparks PULL OVER 07/23/2022 Last Documented On 3 2:32PM ; [facility] Diabetes Risk Test Score was nine score 07/23/2022 Medical New Patient with Latia Sparks PULL OVER 07/23/2022 Last Documented On 3 2:32PM ; [facility] Intervention and counseling on cessation of tobacco use, 3-10 minutes Discussed medication and nicotine replacement for tobacco cessation Medical New Patient with Latia Sparks PULL OVER 07/23/2022 Last Documented On 3 2:32PM ; [facility] Screening for Hep C Medical New Patient with Nad yelitza Sparks PULL OVER 07/23/2022 Last Documented On 3 2:32PM ; [facility] Screening for HIV Medical New Patient with Hiren Sparks PULL OVER 07/23/2022 Last Documented On 3 2:32PM ; [facility] Venipuncture was performed Medical New Patient w dmitry Sparks PULL OVER 07/23/2022 Last Documented On 3 2:32PM ; [facility] Visit for routine adult H&P without abnormal findings Medical New Patient with Latia Sparks PULL OVER 07/23/2022 Last Documented On 3 2:32PM ; [facility] Work Phone: History general Narrative - Reported* Type Description Date Medical History diabetes Medical History htn Medical History depression Medical History neuropathy Medical History Crew Other History general Narrative - Reported Includes: Medical History in patient's chart Description Last Updated No previous suicide attempt 07/24/2022 Last Documented On 3 12:17AM ; [facility] A recent examination by an ophthalmologi st 07/21/2022 07/23/2022 Last Documented On 3 2:32PM ; [facility] History of diabetes mellitus 07/23/2022 Last Documented On 3 2:32PM ; [facility] History of systemic hypertension 023 Last Documented On 3 2:32PM ; [facility] No previous hospitalizations 07/23/2022 Last Documented On 3 2:32PM ; [facility] Recent immunization for flu 07/23/2022 Last Documented On 3 2:32PM ; [facility] Work Phone: History general Narrative - Reported Includes: Medical History in patient's chart Description Last Updated No previous hospitalizations 05/10/2023 Last Documented On 3 10:52AM ; [facility] Recent eye exam showed no apparent retin opathy present 05/10/2023 Last Documented On 3 10:52AM ; [facility] Not planning to have a baby in the next 12 months 04/18/2023 Last Documented On 3 10:11PM ; [facility] No previous suicide attempt 07/24/2022 Last Documented On 3 12:17AM ; [facility] A recent examination by an ophthalmologi st 07/21/2022 07/23/2022 Last Documented On 3 2:32PM ; [facility] History of diabetes mellitus 07/23/2022 Last Documented On 3 2:32PM ; [facility] History of systemic hypertension 023 Last Documented On 3 2:32PM ; [facility] Recent immunization for flu 07/23/2022 Last Documented On 3 2:32PM ; [facility] Work Phone: History of Present illness Narrative History of Present Illness not supported for this document type No [facility] of [facility] Work Phone: Instructions* Name Dates Details Instructions not documented [facility] Work Phone: Patient problem outcome Narrative Includes: Evaluations & Outcomes for active Goals No [facility] Work [facility]: Progress note* Progress note Date Encounter Last Documented by 08/02/2022 Medical Established Patient Last documented on 08/02/2022; 1:35 PM, Latia MAYORGA; [facility] Active Problems & Conditions - E11.610 [...] Pt needs tresiba prescribed to the [facility] just for today. Referred Here [...] has been provided. The patient lives a snf, where food is cooking. Denies any craving [...] previous hospitalizations. A recent examination by an feed handler 07/21/2022. Immunization History: Recent immunization for flu. [...] BP-Sitting R138/82 mmHg BP Cuff SizeLarge Pulse Rate-Qmyrwln25 bpm Pulse RhythmRegular Respiration Rate18 per min Temp-Qgwxhyeq00.5 F Reqfrf69 in Baucad331 lbs Body Mass Index36.7 kg/m2 Body Surface Area2 m2 Oxygen Mdvxipuxik36 % O2 DeviceNone (Room Air) NxL383 % General Appearance: - Awake. - Alert. [...] and diastolic 80-89 mmHg diastolic 80-89 mmHg. 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 Referred Here Referred by emergency room back surgery [facility] follow up. Prior encounters. - Data to be reviewed: no clinical lab tests History of Present Illness Tunde Jack is a 73 year old female. - Allergy list reviewed - Reviewed Medications - Medication list reviewed Medically established patient presented for post-operative follow up. The patient had compression of L2 vertebra, had surgery on 05.16.23. The patient is feeling great, reporting improvement in back pain. The patient must recuperate for six weeks prior to physical therapy. The patient lives at [facility], reporting the nurses at the facility have been giving her daily Ranger instead of twice a day. The patient has been encouraged to speak with DON at the [facility]. Follow up in 3 months Current Medication [...] previous hospitalizations. A recent examination by an feed handler 07/21/2022 results in eye. Recent eye exam showed no apparent retinopathy present. Immunization History: Recent immunization for flu. : Not planning to have a baby in the next 12 months. Diagnoses: Systemic hypertension. Diabetes mellitus Surgical: - Cholecystectomy - Hernia repair - Hysterectomy - Tubal ligation - Back surgery Social History Environmental Exposure: Secondhand cigarette smoke exposure. Tobacco use: Current smoker. Not using electronic cigarettes/vaping. Alcohol: Not using alcohol. Drug Use: Not using drugs denied by patient. Sexual: Not sexually active. Sexual orientation Straight [...] skin symptoms. Physical Findings - Vitals taken 06/04/2023 10:37 am BP-Sitting R138/80 mmHg BP Cuff SizeRegular Pulse Rate-Ftiztqt38 bpm Osobxi06 in Pknpth454 lbs Body Mass Index35.4 kg/m2 Body Surface Area2 m2 Oxygen Pfddouruzo35 % O2 DeviceNone (Room Air) CcR568 % Vital Signs: - Systolic blood pressure 130 - 139 mmHg. - Diastolic Blood Pressure < 80 mmHg. General Appearance: - Awake. - Alert. [...] normal. - Texture was normal. Assessment - Z68.35 - Body mass index [BMI] 35.0-35.9, adult - F17.200 - Nicotine dependence, unspecified, uncomplicated Vaccinations - Received dose of Reported: Patient has received the COVID Vaccine Counseling/Education - Not wishing to stop smoking offered Quit Line information - Discussed nutritional needs 35.4 teach healthy choices including fruits and vegetables - Patient education about a proper diet - Patient education about physical activity benefits - Patient education about mental health - Patient education about diabetes Take your medications every day, even if you feel good. Check your blood sugar ____ times per day and write it on your log. Limit the amount of pastas, breads, cookies, candies, cakes and soda so your sugar is better controlled - Patient education about nasal irrigation - Discussed concerns about exercise: promote physical activity Plan StartCited- Low back pain, unspecified Voltaren 1% gram Apply 2 gm to groin twice a day, 30 days, 2 refills EndCited - Continue current medication All medications - Plan - start medication Voltaren gel F/U in 3 months. Notes - Patient is not interested in the COVID-19 vaccination at this time. [facility] - Reported Review of Systems not supported for this document type No Review of Systems [facility]ed[facility] Work Phone: Summary Purpose Family History Grandmother Name Dates Details Family history of cerebrovas cular accident (CVA)(V17.1, Z82.3) Status:Active Father Name Dates Details Family history of lung cance r(V16.1, Z80.1) Status:Active Description Last Updated Maternal history of type 1 diabetes pilar itus 07/23/2022 Last Documented On 3 2:32PM ; [facility] Description Last Updated Maternal history of type 1 diabetes pilar itus 07/23/2022 Last Documented On 3 2:32PM ; [facility] Description Last Updated Maternal history of type 1 diabetes pilar itus 07/23/2022 Last Documented On 3 2:32PM ; [facility] Description Last Updated Maternal history of type 1 diabetes pilar itus 07/23/2022 Last Documented On 3 2:32PM ; [facility] Description Last Updated Maternal history of type 1 diabetes pilar itus 07/23/2022 Last Documented On 3 2:32PM ; [facility] Description Last Updated Maternal history of type 1 diabetes pilar itus 07/23/2022 Last Documented On 3 2:32PM ; [facility] Description Last Updated Maternal history of type 1 diabetes pilar itus 07/23/2022 Last Documented On 3 2:32PM ; [facility] Description Last Updated Maternal history of type 1 diabetes pilar itus 07/23/2022 Last Documented On 3 2:32PM ; [facility] Description Last Updated Maternal history of type 1 diabetes pilar itus 07/23/2022 Last Documented On 3 2:32PM ; [facility] Description Last Updated Maternal history of type 1 diabetes pilar itus 07/23/2022 Last Documented On 3 2:32PM ; [facility] Description Last Updated Maternal history of type 1 diabetes pilar itus 07/23/2022 Last Documented On 3 2:32PM ; [facility] Advance Directives No Advanced Directives Records [...] No Advance Directives RecordedNo Advanced Directives Records FoundNo Advanced Directives Records [...] this document type No Physical Exam Recorded Reason for Referral Specialty Diagnoses / Procedures Referred By Contannette t Referred To Contact Diagnoses Preop examination Type 2 diabetes mellitus without complication, without long-term current use of insulin ([facility]) Hypertension, unspecified type Procedures ECG 12 lead Hardy Jay DO [address] [place] [address] Referral ID Status Reason Start Date Expiration Date V isits Requested Visits Authorized [id number] Pending Review 05/08/2023 05/07/2024 1 1 Additional Source Comments INFORMATION SOURCE (unrecogn ized section and content) DATE CREATED AUTHOR 03/14/2018 [facility] DATE CREATED AUTHOR AUTHOR'S ORGANIZ ATION 05/28/2018 [facility] ([place]) DATE CREATED AUTHOR AUTHOR'S ORGANIZ ATION 02/05/2019 [facility] DATE CREATED AUTHOR AUTHOR'S ORGANIZ ATION 02/28/2019 [facility] DATE CREATED AUTHOR AUTHOR'S ORGANIZ ATION 03/25/2019 [facility] DATE CREATED AUTHOR AUTHOR'S ORGANIZ ATION 01/16/2022 [facility] DATE CREATED AUTHOR AUTHOR'S ORGANIZ ATION 07/13/2022 [facility] DATE CREATED AUTHOR AUTHOR'S ORGANIZ ATION 09/30/2022 [facility] DATE CREATED AUTHOR AUTHOR'S ORGANIZ ATION 11/11/2022 [facility] DATE CREATED AUTHOR AUTHOR'S ORGANIZ ATION 05/26/2023 [facility] DATE CREATED AUTHOR AUTHOR'S ORGANIZ ATION 06/01/2023 [facility] EPIC Care Teams (unrecognized sec tion and content) Team Status: Inactive Member Role Status Dates Constantine Hernandez MD Attending Provider 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 Setup [facility]. provides no warranty or guarantee of the accuracy or completeness of information in this document.
--- NOTE | 2023-06-05 16:10 | US_ITS ---
The [address] [address] Patient Name: TUNDE AREVALO MRN: [id number] date: 1950 Sex: F Assigned Patient Location: ER Current Patient Location: ER Accession/Order Number: [id number] Exam Date: 06/05/2023 16:11 Report Date: 06/05/2023 16:58 At the request of: VERITO ALVAREZ Procedure: US venous doppler LE LT EXAM: US venous doppler LE LT HISTORY: left thigh pain COMPARISON: None. TECHNIQUE: Ultrasonography of the left lower extremity is performed from the groin to the calf. FINDINGS: The deep venous structures demonstrate normal compressibility. There is no intraluminal thrombus. Normal color Doppler images with spectral waveforms. The greater saphenous vein is not visualized from the distal thigh to the ankle. US/US venous doppler LE LT IMPRESSION: No evidence for deep venous thrombosis. Electronically authenticated by: IVAN ROBERTS Date: 06/05/2023 16:58
--- NOTE | 2023-06-05 16:11 | ED.EXTPRO1 ---
HPI - Extremity Problem General Chief complaint: Extremity Problem, Nontraumatic Stated complaint: Lower Pain Left leg Time Seen by Provider: 06/05/23 15:52 Source: patient and family Mode of arrival: Wheelchair Limitations: physical limitation History of Present Illness HPI Narrative: Patient complains of pain in the medial anterior left thigh that began a few days ago without any injury. She had L2 surgery and had been receiving Greenup twice daily - apparently she ran out. She said that she cannot get a refill prescription until today and as of her departure from [facility] to come to our ED for evaluation it had not yet arrived. No pain in the left hip or pelvis - she specifically localizes it to the soft tissue of the left thigh. No chest pain or shortness of breath Related Data Home Medications Medication Instructions Recorded Confirmed amitriptyline 25 mg tablet 25 mg PO BEDTIME 10/19/22 04/06/23 amlodipine 10 mg tablet 10 mg PO QDAY 10/19/22 04/05/23 aspirin 81 mg tablet,delayed 81 mg PO QDAY 10/19/22 04/05/23 release (Adult Aspirin Regimen) fluoxetine 10 mg tablet 10 mg PO QDAY 10/19/22 04/05/23 gabapentin 600 mg tablet 600 mg PO TID 10/19/22 04/05/23 glucagon 3 mg/actuation nasal 3 mg intranasal .every 6 PRN 10/19/22 04/05/23 spray (Baqsimi) hypoglycemia hydrochlorothiazide 25 mg tablet 25 mg PO QDAY 10/19/22 04/05/23 hydrocodone 5 mg-acetaminophen 325 1 tab PO BID PRN pain 10/19/22 04/05/23 mg tablet insulin degludec 100 unit/mL (3 40 unit subcut .at supp 10/19/22 04/05/23 mL) subcutaneous pen (Tresiba FlexTouch U-100 insulin) insulin lispro 100 unit/mL 1 sliding scale dose subcut 10/19/22 04/05/23 subcutaneous solution (Humalog USEASDIRECTD U-100 Insulin) losartan 100 mg tablet 100 mg PO QDAY 10/19/22 04/05/23 metformin 500 mg tablet 500 mg PO BID 10/19/22 04/05/23 pantoprazole 40 mg tablet,delayed 40 mg PO QDAY 10/19/22 04/05/23 release pravastatin 20 mg tablet 20 mg PO BEDTIME 10/19/22 04/06/23 sucralfate 1 gram tablet 1 g PO BEDTIME 10/19/22 04/06/23 aripiprazole 15 mg tablet 15 mg PO BEDTIME 04/05/23 04/06/23 fluticasone propionate 50 2 spray intranasal QAM 04/05/23 04/05/23 mcg/actuation nasal spray,suspension hydralazine 25 mg tablet 25 mg PO Q12H 04/05/23 04/05/23 magnesium oxide 400 mg (241.3 mg 400 mg PO TID 04/05/23 04/05/23 magnesium) tablet vit D3 5000 125 mcg PO DAILY 04/05/23 04/05/23 alprazolam 0.5 mg tablet (Xanax) 0.5 mg PO BID PRN anxiety 04/06/23 04/06/23 baclofen 5 mg tablet 5 mg PO TID PRN muscle spasm 04/06/23 04/06/23 camphor-menthol 0.2 %-3.5 % 1 applic topical BID PRN pain 04/06/23 04/06/23 topical gel dulaglutide 4.5 mg/0.5 mL 4.5 mg subcut QWEEK 04/06/23 04/06/23 subcutaneous pen injector ([facility]) fenofibrate 160 mg tablet 160 mg PO DAILY 04/06/23 04/06/23 ondansetron HCl 4 mg tablet 4 mg PO Q6H PRN nausea and vomiting 04/06/23 04/06/23 trazodone 50 mg tablet 50 mg PO BEDTIME 04/06/23 04/06/23 Previous Rx's Medication Instructions Recorded benzonatate 200 mg capsule 200 mg PO TID PRN cough #20 caps 04/10/23 benzonatate 200 mg capsule 200 mg PO TID PRN cough #30 caps 04/10/23 levofloxacin 750 mg tablet 750 mg PO DAILY 7 days #7 tabs 04/10/23 levofloxacin 750 mg tablet 750 mg PO DAILY 7 days #7 tabs 04/10/23 hydrocodone 5 mg-acetaminophen 325 1 tab PO BID PRN pain #60 tabs 04/25/23 mg tablet hydrocodone 7.5 mg-acetaminophen 1 tab PO BID PRN pain #60 tabs 05/02/23 325 mg tablet hydrocodone 7.5 mg-acetaminophen 1 tab PO BID PRN pain #60 tabs 05/27/23 325 mg tablet Allergies Allergy/AdvReac Type Severity Reaction Status Date / Time haloperidol [From Haldol] Allergy Unknown Verified 11/27/22 09:53 ebenezer Allergy Unknown Verified 11/27/22 09:53 Penicillins Allergy Unknown Verified 11/27/22 09:53 topiramate [From Topamax] Allergy Unknown Verified 11/27/22 09:53 [facility] Medical History (Updated 06/05/23 @ 17:04 by Jc Agudelo) Basal pneumonia ?J18.9 - Pneumonia, unspecified organism (ICD-10) Pneumonia ?J18.9 - Pneumonia, unspecified organism (ICD-10) Hypoxia ?R09.02 - Hypoxemia (ICD-10) Shortness of breath ?R06.02 - Shortness of breath (ICD-10) DNR (do not resuscitate) ?Z66 - Do not resuscitate (ICD-10) Obesity (BMI 30.0-34.9) ?E66.9 - Obesity, unspecified (ICD-10) Chronic pain syndrome ?G89.4 - Chronic pain syndrome (ICD-10) Inguinal hernia ?K40.90 - Unilateral inguinal hernia, without obstruction or gangrene, not specified as recurrent (ICD-10) Upper back pain ?M54.9 - Dorsalgia, unspecified (ICD-10) Osteoarthritis ?M19.90 - Unspecified osteoarthritis, unspecified site (ICD-10) Obesity ?E66.9 - Obesity, unspecified (ICD-10) Anxiety ?F41.9 - Anxiety disorder, unspecified (ICD-10) Depression ?F32.A - Depression, unspecified (ICD-10) Hiatal hernia ?K44.9 - Diaphragmatic hernia without obstruction or gangrene (ICD-10) Heartburn ?R12 - Heartburn (ICD-10) Diabetes ?E11.9 - Type 2 diabetes mellitus without complications (ICD-10) Smoker ?F17.200 - Nicotine dependence, unspecified, uncomplicated (ICD-10) High cholesterol ?E78.00 - Pure hypercholesterolemia, unspecified (ICD-10) Hypertension ?I10 - Essential (primary) hypertension (ICD-10) Surgical History History of cholecystectomy ?Z90.49 - Acquired absence of other specified parts of digestive tract (ICD-10) H/O: hysterectomy ?Z90.710 - Acquired absence of both cervix and uterus (ICD-10) H/O tubal ligation ?Z98.51 - Tubal ligation status (ICD-10) Social History Smoking status: Current every day smoker Exam Narrative Exam Narrative: Nurses notes and vital signs reviewed and patient is not hypoxic. afebrile General: Well-appearing and in no apparent distress. Skin: Warm, dry, no pallor noted. No rash. Cardiovascular: Regular Rate and Rhythm without murmur, gallop or rub. Respiratory: No accessory muscle use or respiratory distress. Lungs are clear to auscultation, no wheezing, rales or rhonchi Back: No midline thoracic vertebral tenderness. Midline upper lumbar vertebral tenderness. No sign if infection at the surgical incision. Musculoskeletal: Soft tissue tenderness anterior and medial left thigh. No palpable mass. No bony tenderness left hip, pelvis or thigh. Left knee, foot and ankle with normal ROM. no calf or popliteal tenderness. no lower extremity edema/swelling GI: Abdomen is soft, non-distended. Normal bowel sounds. No tenderness to palpation. No rebound, guarding, or rigidity noted. Neurological: A&O x4. No cranial nerve dysfunction observed. No truncal ataxia. Moves all extremities. Sensation intact. Psychiatric: Cooperative and interactive. Normal mood and affect. Constitutional Vital Signs, click to edit/add: Last Vital Signs Temp 97.6 F 06/05/23 15:59 Pulse 104 H 06/05/23 15:59 Resp 18 06/05/23 15:59 BP 174/82 H 06/05/23 15:59 Pulse Ox 95 06/05/23 16:35 O2 Del Method Room Air 06/05/23 16:35 Course Vital Signs Vital signs: Vital Signs Temperature 97.6 F 06/05/23 15:59 Pulse Rate 104 H 06/05/23 15:59 Respiratory Rate 18 06/05/23 15:59 Blood Pressure 174/82 H 06/05/23 15:59 Pulse Oximetry 96 06/05/23 15:59 Temperature 97.6 F 06/05/23 15:59 Pulse Rate 104 H 01/17/24 15:59 Respiratory Rate 18 06/05/23 15:59 Blood Pressure 174/82 H 06/05/23 15:59 Pulse Oximetry 95 06/05/23 16:35 Oxygen Delivery Method Room Air 06/05/23 16:35 MDM - Extremity (Nontraumatic) MDM Narrative Medical decision making narrative: Patient received a dose of Greenup orally for her pain. Left LE US was negative for DVT. The distribution of her pain is along the soft tissue, which is tender to palpation without sign of abscess or cellulitis or other skin change. Patient informed of negative US report and was discharged back to [facility]. She is expecting a new prescription for her Greenup to be filled, so I will not write another prescription for her. She can see her PCP for follow up. ED return if she worsens. Imaging Data Venous US: Radiologist's impression: ITS Impressions Venous Doppler Study 06/05/23 16:10 IMPRESSION: No evidence for deep venous thrombosis. Electronically authenticated by: IVAN ROBERTS Date: 06/05/2023 16:58 Discharge Plan Discharge Chief Complaint: Extremity Problem, Nontraumatic Clinical Impression: Acute pain of left thigh Patient Disposition: Home, Self-Care Time of Disposition Decision: 17:04 Prescriptions / Home Meds: No Action hydrocodone-acetaminophen 5-325 mg tablet 1 tab PO BID PRN (Reason: pain) Qty: 60 0RF hydrocodone-acetaminophen 7.5-325 mg tablet 1 tab PO BID PRN (Reason: pain) Qty: 60 0RF hydrocodone-acetaminophen 7.5-325 mg tablet 1 tab PO BID PRN (Reason: pain) Qty: 60 0RF Rx Instructions: DO NOT FILL TILL 06/05/23 MUST LAST 30 DAYS aripiprazole 15 mg tablet 15 mg PO BEDTIME hydralazine 25 mg tablet 25 mg PO Q12H magnesium oxide 400 mg (241.3 mg magnesium) tablet 400 mg PO TID fluticasone propionate 50 mcg/actuation spray,suspension 2 spray INTRANASAL QAM vit D3 5000 125 mcg tablet 125 mcg PO DAILY alprazolam [Xanax] 0.5 mg tablet 0.5 mg PO BID PRN (Reason: anxiety) Trulicity 4.5 mg/0.5 mL pen injector 4.5 mg subcut QWEEK Rx Instructions: [employer] fenofibrate 160 mg tablet 160 mg PO DAILY trazodone 50 mg tablet 50 mg PO BEDTIME baclofen 5 mg tablet 5 mg PO TID PRN (Reason: muscle spasm) ondansetron HCl 4 mg tablet 4 mg PO Q6H PRN (Reason: nausea and vomiting) camphor-menthol 0.2-3.5 % gel 1 applic topical BID PRN (Reason: pain) Rx Instructions: rub in gently and completely levofloxacin 750 mg tablet 750 mg PO DAILY 7 Days Qty: 7 0RF benzonatate 200 mg capsule 200 mg PO TID PRN (Reason: cough) Qty: 30 0RF benzonatate 200 mg capsule 200 mg PO TID PRN (Reason: cough) Qty: 20 0RF levofloxacin 750 mg tablet 750 mg PO DAILY 7 Days Qty: 7 0RF amitriptyline 25 mg tablet 25 mg PO BEDTIME aspirin [Adult Aspirin Regimen] 81 mg tablet,delayed release (DR/EC) 81 mg PO QDAY Baqsimi 3 mg/actuation spray,non-aerosol 3 mg intranasal .every 6 PRN (Reason: hypoglycemia) fluoxetine 10 mg tablet 10 mg PO QDAY gabapentin 600 mg tablet 600 mg PO TID insulin lispro [Humalog U-100 Insulin] 100 unit/mL solution 1 sliding scale dose subcut USEASDIRECTD Rx Instructions: takes 12 units at breakfast and lunch then 16 units at supper losartan 100 mg tablet 100 mg PO QDAY sucralfate 1 gram tablet 1 g PO BEDTIME insulin degludec [Tresiba FlexTouch U-100] 100 unit/mL (3 mL) insulin pen 40 unit subcut .at supp amlodipine 10 mg tablet 10 mg PO QDAY hydrochlorothiazide 25 mg tablet 25 mg PO QDAY hydrocodone-acetaminophen 5-325 mg tablet 1 tab PO BID PRN (Reason: pain) metformin 500 mg tablet 500 mg PO BID pantoprazole 40 mg tablet,delayed release (DR/EC) 40 mg PO QDAY pravastatin 20 mg tablet 20 mg PO BEDTIME Instructions: Leg Pain (ED) Stand Alone Forms: Portal Instructions Referrals: Physician,Non-Staff, MD [Primary Care Provider] - 1 week
[2023-06-05] MEDS: HYDROCODONE/ACET 5-325 MG TABLET 1 TAB PO (16:18)
[2023-06-05 16:35] VITALS: O2SAT 95
== END 2023-06-05 17:37 | disposition home or self-care (01) ==
PROVIDERS: Emergency Provider Emergency Medicine
DX: M79.652 Pain in left thigh (principal); E66.9 Obesity, unspecified; G89.4 Chronic pain syndrome; M19.90 Unspecified osteoarthritis, unspecified site; F41.9 Anxiety disorder, unspecified; F32.A Depression, unspecified; E11.9 Type 2 diabetes mellitus without complications; E78.00 Pure hypercholesterolemia, unspecified; I10 Essential (primary) hypertension; F17.210 Nicotine dependence, cigarettes, uncomplicated; Z79.82 Long term (current) use of aspirin; Z79.4 Long term (current) use of insulin; Z79.899 Other long term (current) drug therapy; Z87.01 Personal history of pneumonia (recurrent); Z66 Do not resuscitate; Z90.710 Acquired absence of both cervix and uterus; Z90.49 Acquired absence of other specified parts of digestive tract; Z68.35 Body mass index [BMI] 35.0-35.9, adult
CPT/HCPCS: 93971; 99284

== ENCOUNTER 2023-06-18 10:11 | Outpatient (OUT) | payer MEDICARE, MEDICAID, SELFPAY ==
--- NOTE | 2023-06-18 10:14 | CT_ITS ---
[address] [address] Patient Name: TUNDE AREVALO MRN: [id number] date: 1950 Sex: F Assigned Patient Location: CT Current Patient Location: CT Accession/Order Number: [id number] Exam Date: 06/18/2023 10:25 Report Date: 06/18/2023 11:55 At the request of: EJ BARRAZA Procedure: CT lumbar spine wo con EXAMINATION: CT lumbar spine wo con HISTORY: Lumbar Degenerative Disc Disease M51.36 COMPARISON: 05/02/2023 TECHNIQUE: Axial, Coronal, and Sagittal CT images were created without I.V. contrast material. Dose reduction techniques were achieved by using automated exposure control and/or adjustment of mA and/or kV according to patient size and/or use of iterative reconstruction technique. FINDINGS: PARASPINAL AREA: Normal with no visible mass. Left partially visualized neurostimulator with the wires extending off the field of view BONES: Stable alignment with no spondylolisthesis. There is been interval development of a complex burst type fracture involving the L3 vertebral body with fracture of the right L3 transverse process and left lamina with a likely insufficiency compression component of the body measuring up to 70%. There is retropulsion of the posterior superior vertebral body at the 9 mm into the central canal . Interval L1 kyphoplasty with stable 30% anterior wedge compression fracture. Moderate diffuse degenerative spondylosis. Mild diffuse facet osteoarthropathy DISC LEVELS: 12-L1: Moderate disc space narrowing and vacuum disc. Mild diffuse disc/osteophyte complex. No central or foraminal stenosis L1-L2: Moderate degenerative disc disease is present without visible neural impingement. L2-L3: 8 mm retrolisthesis posterior superior margin of the L3 vertebral body into the central canal resulting in central canal stenosis. Moderate disc/osteophyte complex with moderate to severe right and mild left foraminal stenosis L3-L4: Mild diffuse disc/osteophyte complex no definite central or foraminal stenosis L4-L5: Early degenerative disc disease is present without focal protrusion or neural impingement. L5-S1: Moderate degenerative disc disease is present without visible neural impingement. Findings were discussed with Ej Barraza at 11:[address]/CT lumbar spine wo con IMPRESSION: Complex burst type fracture of the L3 vertebral body extending to the right transverse process and left lamina, 9 mm of retropulsion of the vertebral body. Significant central canal stenosis. This is an unstable fracture. Further emergent evaluation is required Electronically authenticated by: LEAH BEAL Date: 06/18/2023 11:55
--- OUTSIDE RECORDS SUMMARY | 2023-06-18 10:15 | XMS_ITS | CCD ---
Author Name Unknown Address [address] [place] [address] Organization [facility] Care Team Providers Care Youth Development Specialist Name Role Phone Morgan Barcenas Unavailable Unavailable PROVIDER, UNKNOWN Unavailable Unavailable Ahchandler Ilia Unavailable Unavailable Morgan Barecnas Unavailable Unavailable PROVIDER, UNKNOWN Unavailable Unavailable Ahmed, Ilia Unavailable Unavailable STIVEN ANDINO Unavailable Unavailable Unknown, Referring Provider Unavailable Unav ailable Leah Brock Unavailable Unavailable Ahchandler, Ilia Unavailable Unavailable MD Constantine Hernandez Attending Provider [phone] Isidra Hernandez Unavailable Sparks DRESSMAKER HELPER, Latia Attending Unavailable Sparks DRESSMAKER HELPER, Latia Primary Care Provider Unavailable Primary Care Provider Unavailabl e Sparks DRESSMAKER HELPER, Latia Primary Care Provider MISC, DR BECERRA Admitting Unavailable MISC, DR BECERRA Attending Unavailable NADCLAUDIO, GERALDO A Primary Care Unavailable MISC, DR BECERRA Consulting Unavailable MISC, DR BECERRA Admitting Unavailable MISC, DR BECERRA Attending Unavailable NADERER, GERALDO A Primary Care Unavailable MISC, DR BECERRA Consulting Unavailable NADERER, GERALDO A Primary Care Unavailable LAKSHMIPATHY ., NARENDRANATH Admitting Sobeida vailable LAKSHMIPATHY ., NARENDRANATH Attending Sobeida vailable DR ERIN BERMAN Consulting Unavailable LAKSHMIPATHY ., NARENDRANATH Consulting Sobeida vailable LAKSHMIPATHY ., NARENDRANATH Admitting Sobeida vailable LAKSHMIPATHY ., NARENDRANATH Attending Sobeida vailable JOHAN GERALDO A Primary Care Unavailable LAKSHMIPATHY ., NARENDRANATH Consulting Sobeida vailable LAKSHMIPATHY ., NARENDRANATH Admitting Sobeida vailable LAKSHMIPATHY ., NARENDRANATH Attending Sobeida vailable GERALDO PRADO A Primary Care Unavailable LAKSHMIPATHY ., NARENDRANATH Consulting Sobeida vailable LAKSHMIPATHY ., NARENDRANATH Admitting Sobeida vailable LAKSHMIPATHY ., NARENDRANATH Attending Sobeida vailable GERALDO PRADO A Primary Care Unavailable LAKSHMIPATHY ., NARENDRANATH Consulting Sobeida vailable GERALDO PRADO A Primary Care Unavailable LAKSHMIPATHY ., NARENDRANATH Admitting Sobeida vailable LAKSHMIPATHY ., NARENDRANATH Attending Sobeida vailable LAKSHMIPATHY ., NARENDRANATH Consulting Sobeida vailable LAKSHMIPATHY ., NARENDRANATH Admitting Sobeida vailable LAKSHMIPATHY ., NARENDRANATH Attending Sobeida vailable GERALDO PRADO A Primary Care Unavailable HALKER ., DEANA Consulting Unavailable MISC, DOCTOR Admitting Unavailable MISC, DR BECERRA Attending Unavailable NADGERALDO SNYDER A Primary Care Unavailable MISC, DR BECERRA Consulting Unavailable SPARKS, LATIA Referring Unavailable SPARKS, LATIA Referring Unavailable Unavailable Primary Care Provider Unavailmiranda Prado MD, Geraldo Primary Care Provider [phone] HARDY JAY Admitting Unavailable HARDY JAY Attending Unavailable GERALDO PRADO Primary Care [...] Care Unavailable HARDY JAY Referring Unavailable GERALDO PRAOD Primary Care Unavailable GERALDO PRADO Referring Unavailable APLING, EJ B Attending Unavailable APLING, EJ B Referring Unavailable APLING, EJ B Attending Unavailable APLING, EJ B Referring Unavailable APLING, EJ B Referring Unavailable HARDY JAY Attending Unavailable Allergies Allergy Classification Reported Allergen(s) Allergy Type Date of Onset Reaction(s) Facility Anti-Epileptic Agents (1 source) topiramate [facility] Work Phone: Penicillins (antibiotic) (1 source) Penicillins; Translations: [Penicillins] Drug Allergy [facility] Work Phone: (2 sources) Haloperidol; Translations: [Haldol] Drug Allergy 0 Unknown [facility] (1 source) Penicillin V Drug Allergy Unknown [facility] Other (2 sources) Thioridazine; Translations: [THIORIDAZINE] Drug Allergy [address] [facility] (3 sources) topiramate; Translations: [TOPIRAMATE] Drug Allergy 8 Unknown [facility] Other (3 sources) Tai Flavor; Translations: [TAI FLAVOR] Drug allergy 8 Anaphylaxis, Swelling [facility] (7 sources) tai allergenic extract Drug Allergy 0 Hives / Urticaria, Shock [facility] (1 source) Penicillin Drug Allergy 0 The [facility] (7 sources) topiramate Drug Allergy 0 The [facility] (8 sources) Penicillins; Translations: [PENICILLINS] Allergy to substance 8 Hives / Urticaria, Hives, Itching [facility] (6 sources) Thioridazine Drug Allergy 3 Health [facility] (2 sources) Temazepam; Translations: [TEMAZEPAM] Drug Allergy 8 Other (See Comments[facility] Haloperidol; Translations: [HALOPERIDOL] Drug [facility]ergy [facility] Medications Current Medications Medication Drug Class(es) Dates Sig (Normalized) Sig (Original) 1st Tier Unifine Pentips Plus 33G X 4 MM Miscellaneous (8 sources) Start: 08-28-2022 1st Tier Unifine Pentips Plus 33G X 4 MM Miscellaneous 08/28/2022 Provider: Latia Sparks [facility] Aircast Sport Ankle Brace/Left - (1 source) Start: 09-21-2021 Aircast Sport Ankle Brace/Left - as directed September, Active amitriptyline hydrochloride 25 mg oral tablet (20 sources) Tricyclic Antidepressant Start: 02-06-2023 Amitriptyline HCl 25 MG Oral Tablet 02/06/2023 Provider: Latia Sparks DRESSMAKER HELPER Start: 08-09-2022 End: 11-15-2022 Amitriptyline HCl 25 MG Oral Tablet 11/08/2022 - 11/15/2022 Provider: Latia Sparks DRESSMAKER HELPER Start: 07-06-2022 End: 08-02-2022 Amitriptyline HCl 25 [...] al Tablet 02/06/2023 - 11/15/2022 Provider: Latia Sparks DRESSMAKER HELPER Start: 02-06-2023 End: 11-15-2022 amLODIPine Besylate 10 MG Or al Tablet 02/06/2023 - 11/15/2022 Provider: Latia GREENP Start: 02-06-2023 End: 11-15-2022 amLODIPine Besylate 10 MG Or al Tablet 02/06/2023 - 11/15/2022 Provider: Latia Sparks DRESSMAKER HELPER Start: 02-06-2023 End: 11-15-2022 amLODIPine Besylate 10 [...] 0 Active Butalbital-Acetaminoph en (1 source) Butalbital-Aceta minoph en Active diclofenac sodium 0.01 mg/mg topical gel (2 sources) Nonsteroidal Anti-inflammatory Drug Start: 06-04-2023 Voltaren 1% External Gel 06/04/2023 Provider: Latia MAYORGA fenofibrate 160 [...] Oral Tabl et 06/26/2022 - 08/22/2022 Provider: [employer] Acti ve FLUoxetine 10 mg oral capsule (20 sources) Serotonin Reuptake Inhibitor Start: 08-28-2022 FLUoxetine HCl 10 MG Oral Capsule 08/28/2022 Provider: Latia GREENP Start: 08-22-2022 End: 08-02-2022 FLUoxetine HCl 10 MG Oral Ca psule 08/22/2022 - 08/02/2022 Provider: Latia GREENP Start: 08-22-2022 End: 08-02-2022 FLUoxetine HCl 10 MG Oral Ca psule 08/22/2022 - 08/02/2022 Provider: Latia Sparks DRESSMAKER HELPER Start: 08-22-2022 End: 08-02-2022 FLUoxetine HCl 10 [...] propionate 0.05 mg/actuat metered dose nasal spray (10 sources) Corticosteroid Start: 08-09-2022 Flonase Allerg y [...] t 12/18/2022 - 11/15/2022 Provider: Latia Hoffmanim DRESSMAKER HELPER Start: 12-18-2022 End: 11-15-2022 Gabapentin 600 MG Oral Table t 12/18/2022 - 11/15/2022 Provider: Latia Hoffmanim DRESSMAKER HELPER Start: 12-18-2022 End: 11-15-2022 Gabapentin 600 MG Oral Table t 12/18/2022 - 11/15/2022 Provider: Latia Sparks DRESSMAKER HELPER Start: 08-22-2022 End: 11-15-2022 Gabapentin 600 MG Oral Table t 08/22/2022 - 11/15/2022 Provider: Latia Sparks DRESSMAKER HELPER Start: 07-03-2022 End: 08-02-2022 Gabapentin 600 MG Oral Table t 07/23/2022 - 08/02/2022 Provider: Latia Sparks DRESSMAKER HELPER Gabapentin Activ e hydrALAZINE hydrochloride 25 mg oral tablet (20 sources) Arteriolar Vasodilator Start: 02-06-2023 hydrALAZINE HCl 25 M G Oral Tablet 02/06/2023 Provider: Latia Hoffmanim DRESSMAKER HELPER Start: 09-09-2022 End: 11-15-2022 hydrALAZINE HCl 25 MG Oral T ablet 11/08/2022 - 11/15/2022 Provider: Latia Sparks DRESSMAKER HELPER Start: 09-09-2022 End: 08-02-2022 hydrALAZINE HCl 25 [...] 25 MG Oral Tablet 08/22/2022 Provider: Latia GREENP Start: 07-22-2022 End: 08-02-2022 hydroCHLOROthiazide 25 MG Or al Tablet 07/23/2022 - 08/02/2022 Provider: Latia GREENP hydroCHLOROthiaz jaja Active hydroCHLOROthiazide 12.5 mg / losartan potassium 100 mg oral tablet (1 source) Thiazide Diuretic, Angiotensin 2 Receptor Jone take 1 tablet by mouth once in the morning losartan-hydroCHLOROthiazide (HYZAAR) 100-12.5 mg per tablet Take 1 tablet by mouth in the morning. 0 Active lidocaine 0.05 mg/mg medicated patch (5 sources) Antiarrhythmic, Amide Local Anesthetic Star t: 03-22 0- Lidocaine 5% External Patch 04/18/2023 Provider: Latia MAYORGA losartan potassium 100 mg oral tablet (20 sources) Angiotensin 2 Receptor Jone Star t: 01-19 0- 23 Losartan Potassium 100 MG Or al Tablet 02/06/2023 Provider: Latia GREENP Start: 08-28-2022 End: 11-15-2022 Losartan Potassium 100 MG Or al Tablet 08/28/2022 - 11/15/2022 Provider: Latia GREENP Start: 07-28-2022 End: 08-02-2022 Losartan Potassium 100 MG Or al Tablet 07/28/2022 - 08/02/2022 Provider: Cristobal marcus Active Menthol (1 source) Biofreeze Active metFORMIN hydrochloride 500 mg oral tablet (20 sources) Biguanide Start: 08-09-2022 metFORMIN HCl 500 [...] 0 Active take 50-500 mg by mo ut every twenty-four hours Janumet XR 50-500 MG Oral Tablet Extended Release 24 Hour Refills: 0 Active naproxen 500 mg oral tablet (5 sources) Nonsteroidal Anti-inflammatory Drug Start: 04-18-2023 Naproxen 500 MG O ral Tablet 04/18/2023 Provider: Latia MAYORGA ondansetron 4 mg disintegrating oral tablet (7 sources) Serotonin-3 Receptor Antagonist Start: 11-15-2022 Ondansetron [...] 0 MG Oral Tablet 02/06/2023 Provider: Latia MAYORGA Start: 11-15-2022 End: 11-15-2022 Pravastatin Sodium 40 MG Ora l Tablet 11/15/2022 - 11/15/2022 Provider: Latia GREENP Start: 08-22-2022 End: 11-15-2022 Pravastatin Sodium 20 MG Ora l Tablet 11/15/2022 - 11/15/2022 Provider: Latia GREENP Start: 07-01-2022 End: 08-02-2022 Pravastatin Sodium 20 MG Ora l Tablet 07/23/2022 - 08/02/2022 Provider: Latia GREENP Pravastatin Sodi um Active sucralfate 1000 mg oral tablet (20 sources) Aluminum Complex Start: 08-09-2022 Sucralfate 1 GM Oral Tablet 08/09/2022 Provider: Latia GREENP Start: 07-15-2022 End: 08-02-2022 Sucralfate 1 GM Oral Tablet 07/23/2022 - 08/02/2022 Provider: Latia MAYORGA Sucralfate Activ e traZODone hydrochloride 50 mg oral tablet (20 sources) Serotonin Reuptake Inhibitor Start: 02-06-2023 traZODone HCl 50 MG Oral Tablet 02/06/2023 Provider: Latia GREENP Start: 11-08-2022 End: 11-15-2022 traZODone HCl 50 MG Oral Tab let 11/08/2022 - 11/15/2022 Provider: Latia GREENP Start: 08-22-2022 traZODone HCl 100 MG Oral Tablet 08/22/2022 Provider: Latia Sparks [facility] Start: 07-20-2022 End: 08-02-2022 traZODone HCl 100 MG Oral Ta blet 07/23/2022 - 08/02/2022 Provider: Latia GREENP traZODone HCl Ac tive traZODone HCl - 100 MG Oral Tablet Refills: 0 Active Vitamin D3 (1 source) Vitamin D3 Activ e Completed/Discontinued Medications Medication Drug Class(es) Dates Sig (Normalized) Sig (Original) acetaminophen 325 mg / HYDROcodone bitartrate 5 mg oral tablet (15 sources) Opioid Agonist Start: 07-17-2022 End: 08-22-2022 [...] 0 Active azithromycin 250 mg oral tablet (6 sources) Macrolide Antimicrobial Start: 04-01-2023 End: 04-18-2023 Azithromycin 250 MG Oral Tablet 04/01/2023 - 04/18/2023 Provider: Latia MAYORGA baclofen 10 mg oral tablet (12 sources) gamma-Aminobutyric Acid-ergic Agonist Start: 07-17-2022 End: 08-22-2022 Baclofen 10 MG Oral Tablet 07/17/2022 - 08/22/2022 Provider: canagliflozin 100 mg oral tablet (1 source) Sodium-Glucose Cotransporter 2 Inhibitor Invokana 100 MG Oral Tablet Refills: 0 Active Cholecalciferol (1 source) Vitamin D Vitamin D3 TABS Refills: 0 Active Dextromethorphan (1 source) Uncompetitive K-sjzuky-S-aspartate Receptor Antagonist, Sigma-1 Agonist DexAlone CAPS Refills: [...] [Hyperlipidemia] Onset: 01-08-2018 07-23-2022 Chronic Essential hypertension (16 sources) Essential (primary) hypertension; Translations: [Essential hypertension] [...] unspecified] Onset: 01-08-2018 Other aftercare (1 source) 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; Translations: [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 USE OF INSULIN] Onset: 09-27-2022 Episodic [...] (1 source) Injury, unspecified, initial encounter Onset: 05-05-2022 Resolved: 09-21-2021 Episodic Other screening for suspected conditions (not mental disorders or infectious disease) (14 sources) Encounter for screening for malignant neoplasm [...] Facility Surgical Pathologyon 023 Surgical Pathology Normal [facility] Comment on above: Result Comment: [facility] [address] [place] [address] Surgical Pathology Consultation Patient Name:TUNDE JACK:1950 (Age: 72)Gender:FTaken:05/16/2023Reported:05/22/2023hysician(s):Hardy Jay DO ([phone])Copy To: Rec. #:[id number]: #[id number] Final Pathologic Diagnosis L2 vertebra, biopsy: Viable bone with fibrosis and new bone formation. Negative for granuloma and neoplasia. Report Electronically Signed Out gr/05/22/2023Nikolai Fitch MD [facility] [address] [place] [address], License number: [id number]. Clinical History Compression fracture L2. Gross Description Received in formalin labeled MICKEY, L2 vertebra , are four cores of firm crowell bone each 0.3 cm diameter and ranging from 0.3 to 1.0 cm in length. The specimen is entirely submitted in a single cassette following decalcification. (1,ns,S23 60960, m1) PV pv/05/17/2023P Specimen(s) Received L2 vertebra Fee Codes(s): 1; 69516, 34377 BASIC METABOLIC PANLon 05-10 Anion gap [Moles/Vol] 7 mmol/L Normal 5-15 [facility] Comment on above: Performed By: #### B MP #### [facility] ([id number]) [address] [place] [address] Calcium [Mass/Vol] 10.1 mg/dL Normal 8.5-10.5 [facility] Comment on above: Performed By: #### B MP #### [facility] ([id number]) [address] [place] [address] Chloride [Moles/Vol] 107 mmol/L Normal 98-109 [facility] Comment on above: Performed By: #### B MP #### [facility] ([id number]) [address] [place] [address] CO2 [Moles/Vol] 26 mmol/L Normal 22-32 [facility] Comment on above: Performed By: #### B MP #### [facility] ([id number]) [address] [place] [address] Creatinine [Mass/Vol] 0.65 mg/dL Normal 0.40-1.00 [facility] Comment on above: Result Comment: METH OD TRACEABLE TO IDMS STANDARD Performed By: #### B MP #### [facility] ([id number]) [address] [place] [address] eGFR (CKD-EPI) NON-RACE DEPENDENT >90 Normal >59 [facility] Comment on above: Result Comment: Reported eGFR is based on the CKD-EPI 2020 equation that does not use a race coefficient. Performed By: #### B MP #### [facility] ([id number]) [address] [place] [address] Glucose [Mass/Vol] 83 mg/dL Normal 65-99 [facility] Comment on above: Performed By: #### B MP #### [facility] ([id number]) [address] [place] [address] Potassium [Moles/Vol] 4.1 mmol/L Normal 3.5-5.0 [facility] Comment on above: Performed By: #### B MP #### [facility] ([id number]) [address] [place] [address] Sodium [Moles/Vol] 140 mmol/L Normal 134-146 [facility] Comment on above: Performed By: #### B MP #### [facility] ([id number]) [address] [place] [address] Urea nitrogen [Mass/Vol] 19 mg/dL Normal 5-27 [facility] Comment on above: Performed By: #### B MP #### [facility] ([id number]) [address] [place] [address] Basic Metabolic Panelon 12-2 Anion gap [Moles/Vol] 7 mmol/L 5 - 15 mmol/L [facility] Calcium [Mass/Vol] 10.1 mg/dL 8.5 - 10.5 mg/dL [facility] Chloride [Moles/Vol] 107 mmol/L 98 - 109 mmol/L [facility] CO2 [Moles/Vol] 26 mmol/L 22 - 32 mmol/L [facility] Creatinine [Mass/Vol] 0.65 mg/dL 0.40 - 1.00 mg/dL [facility] Comment on above: METHOD TRACEABLE TO IDMS STANDARD eGFR (CKD-EPI)non-race dependent - PINF [facility] Comment on above: Reported eGFR is based on the CKD-EPI 2020 equation that does not use a race coefficient. Glucose [Mass/Vol] 83 mg/dL 65 - 99 mg/dL [facility] Potassium [Moles/Vol] 4.1 mmol/L 3.5 - 5.0 mmol/L [facility] Sodium [Moles/Vol] 140 mmol/L 134 - 146 mmol/L [facility] Urea nitrogen [Mass/Vol] 19 mg/dL 5 - 27 mg/dL [facility] ECG 12 leadon 05-10-2023 TRACEMASTERVUE [facility] Comp Metabolic Profon 2022 Albumin [Mass/Vol] 4.3 g/dL Normal 3.5-5.2 [facility] Comment on above: Performed By: #### L IPR, CP #### [facility] [address] [place] [address] Special Education Para Professional: Genaro Angel MD Albumin/Glob Ratio 1.5 Normal 1.0-2.5 [facility] Comment on above: Performed By: #### L IPR, CP #### [facility] [address] [place] [address] Special Education Para Professional: Genaro Angel MD Alkaline Phos 116 U/L High 35-104 [facility] Comment on above: Performed By: #### L IPR, CP #### [facility] [address] [place] [address] Special Education Para Professional: Genaro Angel MD ALT [Catalytic activity/Vol] 25 U/L Normal 5-33 [facility] Comment on above: Performed By: #### L IPR, CP #### [facility] [address] [place] [address] Special Education Para Professional: Genaro Angel MD Anion gap [Moles/Vol] 15 mmol/L Normal 9-17 [facility] Comment on above: Performed By: #### L IPR, CP #### [facility] [address] [place] [address] Special Education Para Professional: Genaro Angel MD AST [Catalytic activity/Vol] 32 U/L High <32 [facility] Comment on above: Performed By: #### L IPR, CP #### [facility] [address] [place] [address] Special Education Para Professional: Genaro Angel MD Bilirubin [Mass/Vol] 0.2 mg/dL Low 0.3-1.2 [facility] Comment on above: Performed By: #### L IPR, CP #### [facility] [address] [place] [address] Special Education Para Professional: Genaro Angel MD Calcium [Mass/Vol] 10.7 mg/dL High 8.6-10.4 [facility] Comment on above: Performed By: #### L IPR, CP #### [facility] [address] [place] [address] Special Education Para Professional: Genaro Angel MD Chloride [Moles/Vol] 102 mmol/L Normal 98-107 [facility] Comment on above: Performed By: #### L IPR, CP #### [facility] [address] [place] [address] Special Education Para Professional: Genaro Angel MD CO2 [Moles/Vol] 23 mmol/L Normal 20-31 [facility] Comment on above: Performed By: #### L IPR, CP #### [facility] [address] [place] [address] Special Education Para Professional: Genaro Angel MD Creatinine [Mass/Vol] 0.93 mg/dL High 0.50-0.90 [facility] Comment on above: Performed By: #### L IPR, CP #### [facility] [address] [place] [address] Special Education Para Professional: Genaro Angel MD GFR/1.73 sq M.predicted among non-blacks MDRD (S/P/Bld) [Vol rate/Area] mL/min/{1.73_m2} Normal >60 [facility] Comment on above: Result Comment: [...] Performed By: #### L IPR, CP #### [facility] [address] [address] Special Education Para Professional: Genaro Angel MD Glucose [Mass/Vol] 138 mg/dL High 70-99 [facility] Comment on above: Performed By: #### L IPR, CP #### [facility] [address] [place] [address] Special Education Para Professional: Genaro Angel MD Potassium [Moles/Vol] 5.3 mmol/L Normal 3.7-5.3 [facility] Comment on above: Performed By: #### L IPR, CP #### [facility] [address] [place] [address] Special Education Para Professional: Genaro Angel MD Protein [Mass/Vol] 7.1 g/dL Normal 6.4-8.3 [facility] Comment on above: Performed By: #### L IPR, CP #### [facility] [address] [place] [address] Special Education Para Professional: Genaro Angel MD Sodium [Moles/Vol] 140 mmol/L Normal 135-144 [facility] Comment on above: Performed By: #### L IPR, CP #### [facility] [address] [place] [address] Special Education Para Professional: Genaro Angel MD Urea nitrogen [Mass/Vol] 26 mg/dL High 8-23 [facility] Comment on above: Performed By: #### L IPR, CP #### [facility] [address] [place] [address] Special Education Para Professional: Genaro Angel MD Lipid Profileon 11-10-2022 Cholesterol [Mass/Vol] 152 mg/dL Normal <200 [facility] Comment on above: Result Comment: Cholesterol Guidelines: <200 Desirable 200-240 Borderline >240 Undesirable Performed By: #### L IPR, CP #### [facility] [address] [address] Special Education Para Professional: Genaro Angel MD Cholesterol in HDL [Mass/Vol] 30 mg/dL Low >40 [facility] Comment on above: Result Comment: HDL Guidelines: <40 Undesirable 40-59 Borderline >59 Desirable Performed By: #### L IPR, CP #### [facility] [address] [place] [address] Special Education Para Professional: Genaro Angel MD Cholesterol in LDL [Mass/Vol] 44 mg/dL Normal 0-130 [facility] Comment on above: Result Comment: LDL Guidelines: <100 Desirable 100-129 Near to/above Desirable 130-159 Borderline >159 Undesirable Direct (measured) LDL and calculated LDL are not interchangeable tests. Performed By: #### L IPR, CP #### [facility] [address] [place] [address] Special Education Para Professional: Genaro Angel MD Cholesterol.total /Cholesterol in HDL [Mass ratio] 5.1 {ratio} High <5 [facility] Comment on above: Performed By: #### L IPR, CP #### [facility] [address] [place] [address] Special Education Para Professional: Genaro Angel MD Triglyceride [Mass/Vol] 390 mg/dL High <150 [facility] Comment on above: Result Comment: Triglyceride Guidelines: <150 Desirable 150-199 Borderline 200-499 High >499 Very high Based on AHA Guidelines for fasting triglyceride, February 2012. Performed By: #### L IPR, CP #### [facility] [address] [place] [phone] Special Education Para Professional: Genaro Angel MD Laboratory - Chemistry and C hemistry - challengeon 11-09-2022 Albumin [Mass/Vol] 4.3 g/dL (3.5-5.2 ) [facility] Comment on above: Note: Responsible Ob artillery or naval gunfire observer: CCEV AUTOFILE (3002) ALT [Catalytic activity/Vol] 25 U/L (5-33 ) [facility] Comment on above: Note: Responsible Ob artillery or naval gunfire observer: CCEV AUTOFILE (3002) Anion gap [Moles/Vol] 15 mmol/L (9-17 ) [facility] Comment on above: Note: Responsible Ob artillery or naval gunfire observer: CCEV AUTOFILE (3002) AST [Catalytic activity/Vol] 32 U/L High (<32 ) [facility] Comment on above: Note: Responsible Ob artillery or naval gunfire observer: CCEV AUTOFILE (3002) Bilirubin [Mass/Vol] 0.2 mg/dL Low (0.3-1.2 ) [facility] Comment on above: Note: Responsible Ob artillery or naval gunfire observer: CCEV AUTOFILE (3002) Calcium [Mass/Vol] 10.7 mg/dL High (8.6-10.4 ) [facility] Comment on above: Note: Responsible Ob artillery or naval gunfire observer: CCEV AUTOFILE (3002) Chloride [Moles/Vol] 102 mmol/L (98-107 ) [facility] Comment on above: Note: Responsible Ob artillery or naval gunfire observer: CCEV AUTOFILE (3002) Cholesterol [Mass/Vol] 152 mg/dL (<200 ) [facility] Comment on above: Note: Cholesterol Gu idelines:<200 [id number] Borderline>240 UndesirableResponsible Observer: CCEV AUTOFILE (3002) Cholesterol.total /Cholesterol in HDL [Mass ratio] 5.1 {ratio} High (<5 ) [facility] Comment on above: Note: Responsible Ob artillery or naval gunfire observer: CCEV AUTOFILE (3002) CO2 [Moles/Vol] 23 mmol/L (20-31 ) [facility] Comment on above: Note: Responsible Ob artillery or naval gunfire observer: CCEV AUTOFILE (3002) Creatinine [Mass/Vol] 0.93 mg/dL High (0.50-0.90 ) [facility] Comment on above: Note: Responsible Ob artillery or naval gunfire observer: CCEV AUTOFILE (3002) GFR/1.73 sq M.predicted among non-blacks MDRD (S/P/Bld) [Vol rate/Area] mL/min/{1.73_m2} (>60 ) [facility] Comment on above: Note: These results are [...] Glucose [Mass/Vol] 138 mg/dL High (70-99 ) [facility] Comment on above: Note: Responsible Ob artillery or naval gunfire observer: CCEV AUTOFILE (3002) Magnesium [Mass/Vol] 30 mg/dL Low (>40 ) [facility] Comment on above: Note: HDL Guidelines :<40 Sjnanxftkjt91-81 Borderline>59 DesirableResponsible Observer: CCEV AUTOFILE (3002) Magnesium [Mass/Vol] 44 mg/dL (0-130 ) [facility] Comment on above: Note: LDL Guidelines :<100 Ehyeqjpyi907-509 Near to/above [id number] Borderline>159 UndesirableDirect (measured) LDL and calculated LDL are not interchangeable tests.Responsible Observer: CCEV AUTOFILE (3002) Potassium [Moles/Vol] 5.3 mmol/L (3.7-5.3 ) [facility] Comment on above: Note: Responsible Ob artillery or naval gunfire observer: CCEV AUTOFILE (3002) Protein [Mass/Vol] 7.1 g/dL (6.4-8.3 ) [facility] Comment on above: Note: Responsible Ob artillery or naval gunfire observer: CCEV AUTOFILE (3002) Sodium [Moles/Vol] 140 mmol/L (135-144 ) [facility] Comment on above: Note: Responsible Ob artillery or naval gunfire observer: CCEV AUTOFILE (3002) Triglyceride [Mass/Vol] 390 mg/dL High (<150 ) [facility] Comment on above: Note: Triglyceride G uidelines:<150 Ufcyybnlp120-562 Vscwfexojj792-623 High>499 Very highBased on AHA Guidelines for fasting triglyceride, February 2012.Responsible Observer: CCEV AUTOFILE (3002) Urea nitrogen [Mass/Vol] 26 mg/dL High (8-23 ) [facility] Comment on above: Note: Responsible Ob artillery or naval gunfire observer: CCEV AUTOFILE (3002) No Panel Informationon 11-09 Albumin/Glob Ratio 1.5 (1.0-2.5 ) [facility] Comment on above: Note: Responsible Ob artillery or naval gunfire observer: CCEV AUTOFILE (3002) Alkaline Phos 116 U/L High (35-104 ) [facility] Comment on above: Note: Responsible Ob artillery or naval gunfire observer: CCEV AUTOFILE (3002) Reported Physicians See Note [facility] Comment on above: Note: Reported Physi cians:Ordering: Latia Sparks OMARAttending: Hiren SparksaReferring: Latia Spraks CREATININE URINEon 3 URINE CREAT 31.31 mg/dL Normal 20.00-300.0 0 [facility] Comment on above: Performed By: #### C REAU #### [facility] [address] [place] [address] Dr. Shashi Jimenez MICROALBUMIN, RAND URon 09-17 mALB 14.3 mg/L Normal <=30.0 [facility] Comment on above: Performed By: #### M ALBR #### [facility] [address] [address] [address] Shashi Jimenez PROF 14(COMP METB)on 023 Albumin [Mass/Vol] 3.7 g/dL Normal 3.4-5.0 [facility] Comment on above: Performed By: #### C MP #### [facility] [address] [address] [address] Shashi Jimenez Albumin/Globulin [Mass ratio] 0.9 {ratio} Normal [facility] Comment on above: Performed By: #### C MP #### [facility] [address] [address] [address] Shashi Jimenez ALP [Catalytic activity/Vol] 109 U/L Normal 46-116 [facility] Comment on above: Performed By: #### C MP #### [facility] [address] [address] [address] Shashi Jimenez ALT [Catalytic activity/Vol] 39 U/L Normal 14-59 [facility] Comment on above: Performed By: #### C MP #### [facility] [address] [place] [address] Dr. Shashi Jimenez Anion gap [Moles/Vol] 12.0 mmol/L Normal [facility] Comment on above: Performed By: #### C MP #### [facility] [address] [address] [address] Shashi Jimenez AST [Catalytic activity/Vol] 35 U/L Normal 15-37 [facility] Comment on above: Performed By: #### C MP #### [facility] [address] [place] [address] Dr. Shashi Jimenez Bilirubin [Mass/Vol] 0.3 mg/dL Normal 0.2-1.0 [facility] Comment on above: Performed By: #### C MP #### [facility] [address] [place] [address] Dr. Shashi Jimenez Calcium [Mass/Vol] 10.5 mg/dL Critically high 8.5-10.1 [facility] Comment on above: Performed By: #### C MP #### [facility] [address] [place] [address] Dr. Shashi Jimenez Chloride [Moles/Vol] 103 mmol/L Normal 98-107 [facility] Comment on above: Performed By: #### C MP #### [facility] [address] [place] [address] Dr. Shashi Jimenez CO2 [Moles/Vol] 29.1 mmol/L Normal 21.0-32.0 [facility] Comment on above: Performed By: #### C MP #### [facility] [address] [place] [address] Dr. Shashi Jimenez Creatinine [Mass/Vol] 1.04 mg/dL Critically high 0.55-1.02 [facility] Comment on above: Performed By: #### C MP #### [facility] [address] [place] [address] Dr. Shashi Jimenez EGFR-AF VIET[place]ESE >60 Normal >=60 [facility] Comment on above: Performed By: #### C MP #### [facility] [address] [address] [address] Shashi Jimenez EGFR-NON AF VIET[place]ESE 52 mL/min/1.73m2 Critically low >=60 [facility] Comment on above: Performed By: #### C MP #### [facility] [address] [address] [address] Shashi Jimenez Globulin (S) [Mass/Vol] 4.2 g/dL Normal [facility] Comment on above: Performed By: #### C MP #### [facility] [address] [address] [address] Shashi Jimenez Glucose [Mass/Vol] 258 mg/dL Critically high 74-106 [facility] Comment on above: Performed By: #### C MP #### [facility] [address] [address] [address] Shashi Jimenez Potassium [Moles/Vol] 4.1 mmol/L Normal 3.5-5.1 [facility] Comment on above: Performed By: #### C MP #### [facility] [address] [address] [address] Shashi Jimenez Protein [Mass/Vol] 7.9 g/dL Normal 6.4-8.2 [facility] Comment on above: Performed By: #### C MP #### [facility] [address] [address] [address] Shashi Jimenez Sodium [Moles/Vol] 140 mmol/L Normal 136-145 [facility] Comment on above: Performed By: #### C MP #### [facility] [address] [address] [address] Shashi Jimenez Urea nitrogen [Mass/Vol] 23.0 mg/dL Critically high 7.0-18.0 [facility] Comment on above: Performed By: #### C MP #### [facility] [address] [address] [address] Shashi Jimenez Urea nitrogen/Creatini ne [Mass ratio] 22.1 mg/mg Normal [facility] Comment on above: Performed By: #### C MP #### [facility] [address] [address] [address] Shashi Jimenez POINT OF CARE GLUCOSEon 05-0 Glucose [Mass/Vol] 97 mg/dL Normal 74-106 [facility] Comment on above: Performed By: #### P OCGLUC #### [facility] [address] [address] [address] Shashi Jimenez POINT OF CARE GLUCOSEon 03-2 Glucose [Mass/Vol] 160 mg/dL Critically high 74-106 [facility] Comment on above: Performed By: #### P OCGLUC #### [facility] [address] [address] LSPINE WO CONon [...] by: ERIN BERMAN Date: 2022-07-27 16:56 Normal [facility] CBCon 07-24-2022 Erythrocyte distribution width (RBC) [Ratio] 14.1 % Normal 11.8-14.4 [facility] Comment on above: Performed By: #### I PF, TSHX, VD25, CBC, CP, LIPR #### [facility] [address] [place] [phone] Special Education Para Professional: Genaro Angel MD Hematocrit (Bld) [Volume fraction] 43.9 % Normal 36.3-47.1 [facility] Comment on above: Performed By: #### I PF, TSHX, VD25, CBC, CP, LIPR #### [facility] [address] [place] [phone] Special Education Para Professional: Genaro Angel MD Hemoglobin (Bld) [Mass/Vol] 14.3 g/dL Normal 11.9-15.1 [facility] Comment on above: Performed By: #### I PF, TSHX, VD25, CBC, CP, LIPR #### [facility] [address] [place] [address] Special Education Para Professional: Genaro Angel MD MCH (RBC) [Entitic mass] 30.5 pg Normal 25.2-33.5 [facility] Comment on above: Performed By: #### I PF, TSHX, VD25, CBC, CP, LIPR #### [facility] [address] [place] [phone] Special Education Para Professional: Genaro Angel MD MCHC (RBC) [Mass/Vol] 32.6 g/dL Normal 28.4-34.8 [facility] Comment on above: Performed By: #### I PF, TSHX, VD25, CBC, CP, LIPR #### [facility] [address] [place] [phone] Special Education Para Professional: Genaro Angel MD MCV (RBC) [Entitic vol] 93.6 fL Normal 82.6-102.9 [facility] Comment on above: Performed By: #### I PF, TSHX, VD25, CBC, CP, LIPR #### [address] [address] Special Education Para Professional: Genaro Angel MD NRBC Automated 0.0 per 100 WBC Normal 0.0 [facility] Comment on above: Performed By: #### I PF, TSHX, VD25, CBC, CP, LIPR #### [address] [address] Special Education Para Professional: Genaro Angel MD Platelet Count See Reflexed IPF Result Normal 138-453 [facility] Comment on above: Performed By: #### I PF, TSHX, VD25, CBC, CP, LIPR #### [address] [address] Special Education Para Professional: Genaro Angel MD RBC (Bld) [#/Vol] 4.69 10*6/uL Normal 3.95-5.11 [facility] Comment on above: Performed By: #### I PF, TSHX, VD25, CBC, CP, LIPR #### [address] [address] Special Education Para Professional: Genaro Angel MD WBC (Bld) [#/Vol] 8.4 10*3/uL Normal 3.5-11.3 [facility] Comment on above: Performed By: #### I PF, TSHX, VD25, CBC, CP, LIPR #### [address] [address] Special Education Para Professional: Genaro Angel MD Hematocrit (Bld) [Volume fraction] 43.9 % 36.3 - 47.1 % [facility] Hemoglobin (Bld) [Mass/Vol] 14.3 g/dL 11.9 - 15.1 g/dL [facility] MCH (RBC) [Entitic mass] 30.5 pg 25.2 - 33.5 pg [facility] MCHC (RBC) [Mass/Vol] 32.6 g/dL 28.4 - 34.8 g/dL [facility] MCV (RBC) [Entitic vol] 93.6 fL 82.6 - 102.9 fL [facility] NRBC Automated 0.0 0.0 per 100 WBC [facility] Platelet distribution width (Bld) [Ratio] 14.1 % 11.8 - 14.4 % [facility] Platelets (Bld) [#/Vol] See Reflexed IPF Result [facility] RBC (Bld) [#/Vol] 4.69 10*6/uL 3.95 - 5.1 1 m/uL [facility] WBC (Bld) [#/Vol] 8.4 10*3/uL [facility] Comp Metabolic Profon 2022 Albumin [Mass/Vol] 4.3 g/dL Normal 3.5-5.2 [facility] Comment on above: Performed By: #### I PF, TSHX, VD25, CBC, CP, LIPR #### [facility] [address] [place] [address] Special Education Para Professional: Genaro Angel MD Albumin/Glob Ratio 1.3 Normal 1.0-2.5 [facility] Comment on above: Performed By: #### I PF, TSHX, VD25, CBC, CP, LIPR #### [facility] [place], [place] [phone] Special Education Para Professional: Genaro Angel MD Alkaline Phos 116 U/L High 35-104 [facility] Comment on above: Performed By: #### I PF, TSHX, VD25, CBC, CP, LIPR #### [facility] [address] [place] [address] [phone] Special Education Para Professional: Genaro Angel MD ALT [Catalytic activity/Vol] 27 U/L Normal 5-33 [facility] Comment on above: Performed By: #### I PF, TSHX, VD25, CBC, CP, LIPR #### [address] [address] Special Education Para Professional: Genaro Angel MD Anion gap [Moles/Vol] 15 mmol/L Normal 9-17 [facility] Comment on above: Performed By: #### I PF, TSHX, VD25, CBC, CP, LIPR #### [address] [address] Special Education Para Professional: Genaro Angel MD AST [Catalytic activity/Vol] 30 U/L Normal <32 [facility] Comment on above: Performed By: #### I PF, TSHX, VD25, CBC, CP, LIPR #### [address] [address] Special Education Para Professional: Genaro Angel MD Bilirubin [Mass/Vol] 0.4 mg/dL Normal 0.3-1.2 [facility] Comment on above: Performed By: #### I PF, TSHX, VD25, CBC, CP, LIPR #### [address] [address] Special Education Para Professional: Genaro Angel MD Calcium [Mass/Vol] 10.9 mg/dL High 8.6-10.4 [facility] Comment on above: Performed By: #### I PF, TSHX, VD25, CBC, CP, LIPR #### [address] [address] Special Education Para Professional: Genaro Angel MD Chloride [Moles/Vol] 100 mmol/L Normal 98-107 [facility] Comment on above: Performed By: #### I PF, TSHX, VD25, CBC, CP, LIPR #### [address] [phone] Special Education Para Professional: Genaro Angel MD CO2 [Moles/Vol] 20 mmol/L Normal 20-31 [facility] Comment on above: Performed By: #### I PF, TSHX, VD25, CBC, CP, LIPR #### [address] [address] Special Education Para Professional: Genaro Angel MD Creatinine [Mass/Vol] 0.95 mg/dL High 0.50-0.90 [facility] Comment on above: Performed By: #### I PF, TSHX, VD25, CBC, CP, LIPR #### [address] [address] Special Education Para Professional: Genaro Angel MD GFR/1.73 sq M.predicted among non-blacks MDRD (S/P/Bld) [Vol rate/Area] mL/min/{1.73_m2} Normal >60 [facility] Comment on above: Result Comment: [...] PF, TSHX, VD25, CBC, CP, LIPR #### [address] [address] Special Education Para Professional: Genaro Angel MD Glucose [Mass/Vol] 259 mg/dL High 70-99 [facility] Comment on above: Performed By: #### I PF, TSHX, VD25, CBC, CP, LIPR #### [address] [address] Special Education Para Professional: Genaro Angel MD Potassium [Moles/Vol] 4.7 mmol/L Normal 3.7-5.3 [facility] Comment on above: Performed By: #### I PF, TSHX, VD25, CBC, CP, LIPR #### [facility] [address] [place] [address] Special Education Para Professional: Genaro Angel MD Protein [Mass/Vol] 7.6 g/dL Normal 6.4-8.3 [facility] Comment on above: Performed By: #### I PF, TSHX, VD25, CBC, CP, LIPR #### [facility] [address] [place] [phone] Special Education Para Professional: Genaro Angel MD Sodium [Moles/Vol] 135 mmol/L Normal 135-144 [facility] Comment on above: Performed By: #### I PF, TSHX, VD25, CBC, CP, LIPR #### [facility] [address] [place] [phone] Special Education Para Professional: Genaro Angel MD Urea nitrogen [Mass/Vol] 33 mg/dL High 8-23 [facility] Comment on above: Performed By: #### I PF, TSHX, VD25, CBC, CP, LIPR #### [facility] [address] [place] [address] Special Education Para Professional: Genaro Angel MD Comprehensive Metabolic Pane [facility] 07-24-2022 Albumin [Mass/Vol] 4.3 g/dL 3.5 - 5.2 g/dL [facility] Albumin/Globulin [Mass ratio] 1.3 {ratio} 1.0 - 2.5 [facility] ALP [Catalytic activity/Vol] 116 U/L High 35 - 104 U/L [facility] ALT [Catalytic activity/Vol] 27 U/L 5 - 33 U/L [facility] Anion gap [Moles/Vol] 15 mmol/L 9 - 17 mmol/L [facility] AST [Catalytic activity/Vol] 30 U/L NINF - 32 U/L [facility] Bilirubin [Mass/Vol] 0.4 mg/dL 0.3 - 1.2 mg/dL [facility] Calcium [Mass/Vol] 10.9 mg/dL High 8.6 - 10.4 mg/dL [facility] Chloride [Moles/Vol] 100 mmol/L 98 - 107 mmol/L [facility] CO2 [Moles/Vol] 20 mmol/L 20 - 31 mmol/L [facility] Creatinine [Mass/Vol] 0.95 mg/dL High 0.50 - 0.90 mg/dL [facility] GFR/1.73 sq M.predicted MDRD (S/P/Bld) [Vol rate/Area] - PINF [facility] Comment on above: These results are [...] 259 mg/dL High 70 - 99 mg/dL [facility] Potassium [Moles/Vol] 4.7 mmol/L 3.7 - 5.3 mmol/L [facility] Protein [Mass/Vol] 7.6 g/dL 6.4 - 8.3 g/dL [facility] Sodium [Moles/Vol] 135 mmol/L 135 - 144 mmol/L [facility] Urea nitrogen [Mass/Vol] 33 mg/dL High 8 - 23 mg/dL [facility] Immature Platelet Fractionon 07-24-2022 Platelet, Fluorescence 158 [facility] Comment on above: ORDERED BY LAB Platelet, Immature Fraction 4.5 % 1.1 - 10.3 % [facility] Comment on above: ORDERED BY LAB [facility] Lipid Panelon 07-24-2022 Cholesterol [Mass/Vol] 153 mg/dL NINF - 200 mg/dL [facility] Comment on above: Cholesterol Guidelines: <200 Desirable 200-240 Borderline >240 Undesirable Cholesterol in HDL [Mass/Vol] 29 mg/dL Low 40 - PINF mg/dL [facility] Comment on above: HDL Guidelines: <40 Undesirable 40-59 Borderline >59 Desirable Cholesterol in LDL [Mass/Vol] 60 mg/dL 0 - 130 mg/dL [facility] Comment on above: LDL Guidelines: <100 Desirable 100-129 Near to/above Desirable 130-159 Borderline >159 Undesirable Direct (measured) LDL and calculated LDL are not interchangeable tests. Cholesterol.total /Cholesterol in HDL [Mass ratio] 5.3 {ratio} High NINF - 5 [facility] Triglyceride [Mass/Vol] 319 mg/dL High NINF - 150 mg/dL [facility] Comment on above: Triglyceride Guidelines: <150 Desirable 150-199 Borderline 200-499 High >499 Very high Based on AHA Guidelines for fasting triglyceride, February 2012. Lipid Profileon 07-24-2022 Cholesterol [Mass/Vol] 153 mg/dL Normal <200 [facility] Comment on above: Result Comment: Cholesterol Guidelines: <200 Desirable 200-240 Borderline >240 Undesirable Performed By: #### I PF, TSHX, VD25, CBC, CP, LIPR #### [facility] [address] [place] [address] [phone] Special Education Para Professional: Genaro Angel MD Cholesterol in HDL [Mass/Vol] 29 mg/dL Low >40 [facility] Comment on above: Result Comment: HDL Guidelines: <40 Undesirable 40-59 Borderline >59 Desirable Performed By: #### I PF, TSHX, VD25, CBC, CP, LIPR #### [facility] [address] [place] [address] [phone] Special Education Para Professional: Genaro Angel MD Cholesterol in LDL [Mass/Vol] 60 mg/dL Normal 0-130 [facility] Comment on above: Result Comment: LDL Guidelines: <100 Desirable 100-129 Near to/above Desirable 130-159 Borderline >159 Undesirable Direct (measured) LDL and calculated LDL are not interchangeable tests. Performed By: #### I PF, TSHX, VD25, CBC, CP, LIPR #### [facility] [address] [place] [address] [phone] Special Education Para Professional: Genaro Angel MD Cholesterol.total /Cholesterol in HDL [Mass ratio] 5.3 {ratio} High <5 [facility] Comment on above: Performed By: #### I PF, TSHX, VD25, CBC, CP, LIPR #### [address] [address] Special Education Para Professional: Genaro Angel MD Triglyceride [Mass/Vol] 319 mg/dL High <150 [facility] Comment on above: Result Comment: Triglyceride Guidelines: <150 Desirable 150-199 Borderline 200-499 High >499 Very high Based on AHA Guidelines for fasting triglyceride, February 2012. Performed By: #### I PF, TSHX, VD25, CBC, CP, LIPR #### [address] [phone] [employer] Education Para Professional: Genaro Angel MD No Panel Informationon 07-24 Interpretation and review of laboratory results Abnormal [facility] PLT, Immature Fract.on 07-24 Platelet, Fluoresc. 158 k/uL Normal 138-453 [facility] Comment on above: Result Comment: ORDE RED BY LAB Performed By: #### I PF, TSHX, VD25, CBC, CP, LIPR #### [address] [address] Special Education Para Professional: Genaro Angel MD PLT, Immature Fract. 4.5 % Normal 1.1-10.3 [facility] Comment on above: Result Comment: ORDE RED BY LAB Performed By: #### I PF, TSHX, VD25, CBC, CP, LIPR #### [address] [address] Special Education Para Professional: Genaro Angel MD TSH w/reflex to FT4on 2022 Thyroid Stim. Horm. 1.50 uIU/mL Normal 0.30-5.00 [facility] Comment on above: Performed By: #### I PF, TSHX, VD25, CBC, CP, LIPR #### [facility] [address] [place] [phone] Special Education Para Professional: Genaro Angel MD TSH with Reflexon 07-24-2022 TSH Qn 1.50 m[IU]/L [facility] Vitamin D 25 Hydroxyon 07-24 25-hydroxyvitamin D3 [Mass/Vol] 92.8 ng/mL 29.9 - PINF ng/mL [facility] Comment on above: Reference Range: Vitamin D status Range Deficiency <20 ng/mL Mild Deficiency 20-30 ng/mL Sufficiency 30-100 ng/mL Toxicity >100 ng/mL [facility] Vitamin D 25 OHon 07-24-2022 Vitamin D 25 OH 92.8 ng/mL Normal >29.9 [facility] Comment on above: Result Comment: Reference Range: Vitamin D status Range Deficiency <20 ng/mL Mild Deficiency 20-30 ng/mL Sufficiency 30-100 ng/mL Toxicity >100 ng/mL Performed By: #### I PF, TSHX, VD25, CBC, CP, LIPR #### [facility] [address] [place] [phone] Special Education Para Professional: Genaro Angel MD Laboratory - Chemistry and C hemistry - challengeon 07-23-2022 Albumin [Mass/Vol] 4.3 g/dL (3.5-5.2 ) [facility] Comment on above: Note: Responsible Ob artillery or naval gunfire observer: CCEV AUTOFILE (3002) ALT [Catalytic activity/Vol] 27 U/L (5-33 ) [facility] Comment on above: Note: Responsible Ob artillery or naval gunfire observer: [employer]CEV AUTOFILE (3002) Anion gap [Moles/Vol] 15 mmol/L (9-17 ) [facility] Comment on above: Note: Responsible Ob artillery or naval gunfire observer: CCEV AUTOFILE (3002) AST [Catalytic activity/Vol] 30 U/L (<32 ) [facility] Comment on above: Note: Responsible Ob artillery or naval gunfire observer: CCEV AUTOFILE (3002) Bilirubin [Mass/Vol] 0.4 mg/dL (0.3-1.2 ) [facility] Comment on above: Note: Responsible Ob artillery or naval gunfire observer: CCEV AUTOFILE (3002) Calcium [Mass/Vol] 10.9 mg/dL High (8.6-10.4 ) [facility] Comment on above: Note: Responsible Ob artillery or naval gunfire observer: CCEV AUTOFILE (3002) Chloride [Moles/Vol] 100 mmol/L (98-107 ) [facility] Comment on above: Note: Responsible Ob artillery or naval gunfire observer: CCEV AUTOFILE (3002) Cholesterol [Mass/Vol] 153 mg/dL (<200 ) [facility] Comment on above: Note: Cholesterol Gu idelines:<200 Terxmvccb625-311 Borderline>240 UndesirableResponsible Observer: CCEV AUTOFILE (3002) Cholesterol.total /Cholesterol in HDL [Mass ratio] 5.3 {ratio} High (<5 ) [facility] Comment on above: Note: Responsible Ob artillery or naval gunfire observer: CCEV AUTOFILE (3002) CO2 [Moles/Vol] 20 mmol/L (20-31 ) [facility] Comment on above: Note: Responsible Ob artillery or naval gunfire observer: CCEV AUTOFILE (3002) Creatinine [Mass/Vol] 0.95 mg/dL High (0.50-0.90 ) [facility] Comment on above: Note: Responsible Ob artillery or naval gunfire observer: CCEV AUTOFILE (3002) GFR/1.73 sq M.predicted among non-blacks MDRD (S/P/Bld) [Vol rate/Area] mL/min/{1.73_m2} (>60 ) [facility] Comment on above: Note: These results are [...] Glucose [Mass/Vol] 259 mg/dL High (70-99 ) [facility] Comment on above: Note: Responsible Ob artillery or naval gunfire observer: CCEV AUTOFILE (3002) Magnesium [Mass/Vol] 29 mg/dL Low (>40 ) [facility] Comment on above: Note: HDL Guidelines :<40 Bcekgbsmbea48-78 Borderline>59 DesirableResponsible Observer: CCEV AUTOFILE (3002) Magnesium [Mass/Vol] 60 mg/dL (0-130 ) [facility] Comment on above: Note: LDL Guidelines :<100 Ucuawusek720-286 Near to/above Yrnzppyoc145-575 Borderline>159 UndesirableDirect (measured) LDL and calculated LDL are not interchangeable tests.Responsible Observer: CCEV AUTOFILE (3002) Potassium [Moles/Vol] 4.7 mmol/L (3.7-5.3 ) [facility] Comment on above: Note: Responsible Ob artillery or naval gunfire observer: CCEV AUTOFILE (3002) Protein [Mass/Vol] 7.6 g/dL (6.4-8.3 ) [facility] Comment on above: Note: Responsible Ob artillery or naval gunfire observer: CCEV AUTOFILE (3002) Sodium [Moles/Vol] 135 mmol/L (135-144 ) [facility] Comment on above: Note: Responsible Ob artillery or naval gunfire observer: CCEV AUTOFILE (3002) Triglyceride [Mass/Vol] 319 mg/dL High (<150 ) [facility] Comment on above: Note: Triglyceride G uidelines:<150 Olrcaygfi580-580 Pwedtgocxn135-583 High>499 Very highBased on AHA Guidelines for fasting triglyceride, February 2012.Responsible Observer: CCEV AUTOFILE (3002) Urea nitrogen [Mass/Vol] 33 mg/dL High (8-23 ) [facility] Comment on above: Note: Responsible Ob artillery or naval gunfire observer: CCEV AUTOFILE (3002) Laboratory - Hematology and Cell countson 07-23-2022 Erythrocyte distribution width (RBC) [Ratio] 14.1 % (11.8-14.4 ) [facility] Comment on above: Note: Responsible Ob artillery or naval gunfire observer: JC UP (1219) Hematocrit (Bld) [Volume fraction] 43.9 % (36.3-47.1 ) [facility] Comment on above: Note: Responsible Ob artillery or naval gunfire observer: JC UP (1219) Hemoglobin (Bld) [Mass/Vol] 14.3 g/dL (11.9-15.1 ) [facility] Comment on above: Note: Responsible Ob artillery or naval gunfire observer: JC UP (1219) MCH (RBC) [Entitic mass] 30.5 pg (25.2-33.5 ) [facility] Comment on above: Note: Responsible Ob artillery or naval gunfire observer: JC UP (121) MCHC (RBC) [Mass/Vol] 32.6 g/dL (28.4-34.8 ) [facility] Comment on above: Note: Responsible Ob artillery or naval gunfire observer: JC UP (1218) MCV (RBC) [Entitic vol] 93.6 fL (82.6-102.9 ) [facility] Comment on above: Note: Responsible Ob artillery or naval gunfire observer: JC UP (1218) RBC (Bld) [#/Vol] 4.69 10*6/uL (3.95-5.11 ) [facility] Comment on above: Note: Responsible Ob artillery or naval gunfire observer: JC UP (1218) WBC (Bld) [#/Vol] 8.4 10*3/uL (3.5-11.3 ) [facility] Comment on above: Note: Responsible Ob artillery or naval gunfire observer: JC UP (1218) No Panel Informationon 07-23 Albumin/Glob Ratio 1.3 (1.0-2.5 ) [facility] Comment on above: Note: Responsible Ob artillery or naval gunfire observer: CCEV AUTOFILE (3002) Alkaline Phos 116 U/L High (35-104 ) [facility] Comment on above: Note: Responsible Ob artillery or naval gunfire observer: CCEV AUTOFILE (3002) NRBC Automated 0.0 per_100_WBC (0.0 ) [facility] Comment on above: Note: Responsible Ob artillery or naval gunfire observer: JC UP (1218) Platelet Count See Reflexed IPF Res ult k/uL (138-453 ) [facility] Comment on above: Note: Responsible Ob artillery or naval gunfire observer: JC UP (1218) Platelet, Fluoresc. 158 k/uL (138-453 ) [facility] Comment on above: Note: ORDERED BY LAB Responsible Observer: JC UP (1218) PLT, Immature Fract. 4.5 % (1.1-10.3 ) [facility] Comment on above: Note: ORDERED BY LAB Responsible Observer: JCCORINA UP (1219) Reported Physicians See Note [facility] Comment on above: Note: Reported Physi cians:Ordering: Sparks, Latia OMARAttending: Sparks, NadiraReferring: Sparks, Latia Thyroid Stim. Horm. 1.50 uIU/mL (0.30-5.00 ) [facility] Comment on above: Note: Responsible Ob artillery or naval gunfire observer: CCEV AUTOFILE (3002) Vitamin D 25 [place] 92.8 ng/mL (>29.9 ) [facility] Comment on above: Note: Reference Rang e:Vitamin D status RangeDeficiency <20 ng/mLMild Deficiency 20-30 ng/mLSufficiency 30-100 ng/mLToxicity >100 ng/mLResponsible Observer: CEEV AUTOFILE (3003) MICROALB CREAT RATIO RANDOMo n 07-19-2022 mALB 43.8 mg/L Critically high <=30.0 [facility] Comment on above: Performed By: #### M CRR #### [facility] [address] [address] [address] Shashi Jimenez MALB CR RATIO 326.8 mg/g Critically high 0.0-29.9 [facility] Comment on above: Performed By: #### M CRR #### [facility] [address] [address] [address] Shashi Jimenez MALB CR RATIO RANGE SEE BELOW Normal [facility] Comment on above: Result Comment: NO M ICROALBUMINURIA 0-29 MG/G CLINICAL MICROALBUMINURIA 30-300 MG/G MACROALBUMINURIA >300 MG/G Performed By: #### M CRR #### [facility] [address] [address] [address] Shashi Jimenez URINE CREAT 134.02 mg/dL Normal 20.00-300.0 0 [facility] Comment on above: Performed By: #### M CRR #### [facility] [address] [address] [address] Shashi Jimenez PROF 14(COMP METB)on 023 Albumin [Mass/Vol] 3.8 g/dL Normal 3.4-5.0 [facility] Comment on above: Performed By: #### C MP #### [facility] [address] [address] [address] Shashi Jimenez Albumin/Globulin [Mass ratio] 1.0 {ratio} Normal [facility] Comment on above: Performed By: #### C MP #### [facility] [address] [address] [address] Shashi Jimenez ALP [Catalytic activity/Vol] 83 U/L Normal 46-116 The [facility] Comment on above: Performed By: #### C MP #### [facility] [address] [address] [address] Shashi Jimenez ALT [Catalytic activity/Vol] 42 U/L Normal 14-59 [facility] Comment on above: Performed By: #### C MP #### [facility] [address] [place] [address] Dr. Shashi Jimenez Anion gap [Moles/Vol] 14.0 mmol/L Normal [facility] Comment on above: Performed By: #### C MP #### [facility] [address] [place] [address] Dr. Shashi Jimenez AST [Catalytic activity/Vol] 42 U/L Critically high 15-37 The [facility] Comment on above: Performed By: #### C MP #### [facility] [address] [place] [address] Dr. Shashi Jimenez Bilirubin [Mass/Vol] 0.4 mg/dL Normal 0.2-1.0 [facility] Comment on above: Performed By: #### C MP #### [facility] [address] [place] [address] Dr. Shashi Jimenez Calcium [Mass/Vol] 10.8 mg/dL Critically high 8.5-10.1 [facility] Comment on above: Performed By: #### C MP #### [facility] [address] [place] [address] Dr. Shashi Jimenez Chloride [Moles/Vol] 99 mmol/L Normal 98-107 [facility] Comment on above: Performed By: #### C MP #### [facility] [address] [address] [address] Shashi Jimenez CO2 [Moles/Vol] 27.0 mmol/L Normal 21.0-32.0 [facility] Comment on above: Performed By: #### C MP #### [facility] [address] [place] [address] Dr. Shashi Jimenez Creatinine [Mass/Vol] 0.92 mg/dL Normal 0.55-1.02 [facility] Comment on above: Performed By: #### C MP #### [facility] [address] [place] [address] Dr. Shashi Jimenez EGFR-AF VIETNAMESE >60 Normal >=60 [facility] Comment on above: Performed By: #### C MP #### [facility] [address] [place] [address] Dr. Shashi Jimenez EGFR-NON AF VIETNAMESE =60 Normal >=60 [facility] Comment on above: Performed By: #### C MP #### [facility] [address] [address] [address] Shashi Jimenez Globulin (S) [Mass/Vol] 3.9 g/dL Normal [facility] Comment on above: Performed By: #### C MP #### [facility] [address] [place] [address] Dr. Shashi Jimenez Glucose [Mass/Vol] 300 mg/dL Critically high 74-106 The [facility] Comment on above: Performed By: #### C MP #### [facility] [address] [place] [address] Dr. Shashi Jimenez Potassium [Moles/Vol] 4.0 mmol/L Normal 3.5-5.1 [facility] Comment on above: Performed By: #### C MP #### [facility] [address] [place] [address] Dr. Shashi Jimenez Protein [Mass/Vol] 7.7 g/dL Normal 6.4-8.2 [facility] Comment on above: Performed By: #### C MP #### [facility] [address] [place] [address] Dr. Shashi Jimenez Sodium [Moles/Vol] 136 mmol/L Normal 136-145 [facility] Comment on above: Performed By: #### C MP #### [facility] [address] [address] [address] Shashi Jimenez Urea nitrogen [Mass/Vol] 20.0 mg/dL Critically high 7.0-18.0 [facility] Comment on above: Performed By: #### C MP #### [facility] [id number] Shashi Jimenez Urea nitrogen/Creatini ne [Mass ratio] 21.7 mg/mg Normal [facility] Comment on above: Performed By: #### C MP #### [facility] [address] [address] [address] Shashi Jimenez XR ankle LT min 3V*on 2021 XR ankle LT min 3V* [facility] Main [place] [address] [place] [address] XRay Report Signed Patient: Tunde Jack MR#: [id number] : 1950 Acct:[id number] Age/Sex: 71 / F ADM Date: 09/21/21 Loc: XDUCLY Room: Type: [facility] Attending Dr: Constantine Hernandez MD Ordering [...] 1:10 PM Dictation Location: RADIO-PC-13 Transcribed By: [facility] 09/21/21 1310 Dictated By: Desiree Garrett II, MD 09/21/21 1308 Signed By: 09/21/21 1346 Normal [facility] XR ankle LT min 3V* [facility] [employer] Other XR ankle LT min 3V* [facility] [employer] Other XR ankle LT min 3V* [address] [place] [address] [facility] Other XR ankle LT min 3V* [place] [id number] [employer] Other XR ankle LT min 3V* XRay Report [employer] Other XR ankle LT min 3V* Signed [employer] Other XR ankle LT min 3V* Patient: Tunde Jack MR#: [id number] [employer] Other XR ankle LT min 3V* 3475 [employer] Other XR ankle LT min 3V* : 1950 Acct:[id number] [employer] Other XR ankle LT min 3V* Age/Sex: 71 / F ADM Date: 09/21/21 [employer] Other XR ankle LT min 3V* Loc: XDUCLY Room: Type: [facility] CL [employer] Other XR ankle LT min 3V* Attending Dr: Constantine Hernandez MD [employer] Other XR ankle LT min 3V* Ordering Provider: Isidra Hernandez APRN [employer] Other XR ankle LT min 3V* Date of Service: 09/21/21 [employer] Other XR ankle LT min 3V* XR/XR ankle LT min 3V*: T14.90XA [employer] Other XR ankle LT min 3V* Copies to: Isidra Hernandez APRN [employer] Other XR ankle LT min 3V* Constantine Hernandez MD [employer] Other XR ankle LT min 3V* XR ankle LT min 3V* 09/21/2021 12:53 PM [employer] Other XR ankle LT min 3V* SIGNS AND SYMPTOMS: Twisting injury to left ankle with pain laterally [employer] Other XR ankle LT min 3V* PROTOCOL: Frontal, lateral, and oblique radiographs of the left ankle [employer] Other XR ankle LT min 3V* COMPARISON: None [employer] Other XR ankle LT min 3V* FINDINGS: [employer] Other XR ankle LT min 3V* The bones are in anatomic alignment. There is no evidence of acute displaced fracture. There is [employer] Other XR ankle LT min 3V* soft tissue swelling which is greatest over the lateral malleolus. The ankle mortise is preserved. [employer] Other XR ankle LT min 3V* Calcifications are noted along the Achilles tendon suspicious for a previous Achilles injury. [employer] Other XR ankle LT min 3V* XR/XR ankle LT min 3V* [employer] Other XR ankle LT min 3V* IMPRESSION: [employer] Other XR ankle LT min 3V* No acute displaced fracture. [employer] Other XR ankle LT min 3V* Diffuse soft tissue swelling greatest over the lateral malleolus. [employer] Other XR ankle LT min 3V* Calcifications are noted along the Achilles tendon suspicious for a previous Achilles injury versus [employer] Other XR ankle LT min 3V* calcific tendinosis. [employer] Other XR ankle LT min 3V* Impression dictated by: Desiree Garrett M.D.09/21/2021 1:10 PM [employer] Other XR ankle LT min 3V* Dictation Location: [facility]--13 [employer] Other XR ankle LT min 3V* Transcribed By: MELODY 09/21/21 1310 [employer] Other XR ankle LT min 3V* Dictated By: Desiree Garrett II, MD 09/21/21 1308 [employer] Other XR ankle LT min 3V* Signed By: 09/21/21 1346 [facility] Other ED PROV NOTEon 02-27-2019 ED PROV NOTE HNO ID: [id number] Author: Nargis Raman Service: ? Author Type: Physician Type: ED Provider Notes Filed: 03/01/2019 1:58 AM Note Text: [place] [address] [facility] EMERGENCY DEPARTMENT REPORT Patient: TUNDE JACK DANISHA,NARGIS Simon D.O. [id number] [age] F Status: DEP ER ED [...] By: NARGIS RAMAN D.O. Tests performed at: [facility] [address], [place] [address] Normal [facility] EMERGENCY DEPARTMENT REPORTo n 02-27-2019 [place]ER[place] [address] HEALTH INFORMATION MANAGEMENT EMERGENCY DEPARTMENT REPORT Patient: TUNDE JACK NARGIS RAMAN D.O. [id number] [age] F Status: DEP ER ED [...] By: NARGIS RAMAN D.O. Tests performed at: [address] [id number] [facility] LUMBAR LIMITED 2Von 02-28-20 LUMBAR LIMITED 2V [address] [address] Name: TUNDE JACK Phys: NARGIS RAMAN D.O. : [birth year] Age: 68 Sex: F Acct: [id number] Loc: ED Exam Date: 02/27/19 Status: [facility] ER Radiology No.: [id number] Unit Number: [id number] Exam # Type/Exam [id number] RAD / LUMBAR LIMITED 2V EXAM DESCRIPTION: [...] By: LEAH KIRKPATRICK M.D. Tests performed at: [place] [address] [facility] ED PROV NOTEon 01-23-2019 ED PROV NOTE HNO ID: [id number] Author: Desiree May Service: ? Author Type: Physician Type: ED Provider Notes Filed: 01/28/2019 2:46 PM Note Text: [place] [address] HEALTH INFORMATION MANAGEMENT EMERGENCY DEPARTMENT REPORT Patient: TUNDE JACK MARK N M.D. [id number] [age] F Status: [facility] ER ED Date of Service: 01/22/19 [...] HISTORY Patient is . She is a tqoq-cvki-a-day smoker. PAST SURGICAL HISTORY Appendectomy, cholecystectomy, hysterectomy. [...] rash. No petechiae or purpura. Neurologic exam: [place] Coma Scale is 15. No gross focal [...] 01/28/19 1441 DESIREE MAY M.D. cc: ILIA MEANUEL M.D.; DESIREE MAY M.D. << Signature on File>> Reported By: DESIREE MAY M.D. Signed By: DESIREE MAY M.D. Tests performed at: [facility] [address], [place] [address] Normal [facility] EMERGENCY DEPARTMENT REPORTo n 01-23-2019 [place]ER[place]ENCY [place] [address] HEALTH INFORMATION MANAGEMENT EMERGENCY DEPARTMENT REPORT Patient: TUNDE JACK DESIREE MAY M.D. [id number] [age] F Status: DEP ER ED [...] HISTORY Patient is . She is a aokr-bvmx-i-day smoker. PAST SURGICAL HISTORY Appendectomy, cholecystectomy, hysterectomy. [...] rash. No petechiae or purpura. Neurologic exam: [place] Coma Scale is 15. No gross focal [...] By: DESIREE MAY M.D. Tests performed at: [address] [address] [facility] ABDOMEN MULTIPLE VIEWSon ABDOMEN MULTIPLE VIEWS [address] [address] Name: TUNDE JACK Phys: DESIREE MAY M.D. : [birth year] Age: 68 Sex: F Acct: [id number] Loc: ED Exam Date: 01/22/19 Status: REG ER Radiology No.: [id number] Unit Number: [id number] Exam # Type/Exam [id number] RAD / ABDOMEN MULTIPLE VIEWS XR ABDOMEN [...] By: HUA PLATA M.D. Tests performed at: [address] [address] [facility] BMPon 01-22-2019 Anion gap [Moles/Vol] 16.0 mmol/L Normal 15-22 [facility] Comment on above: Performed By: #### L 100.0350, L100.0030, L100.0010 #### [facility] [address] [place] [address] Calcium [Mass/Vol] 10.5 mg/dL High 8.8-10.2 [facility] Comment on above: Performed By: #### L 100.0350, L100.0030, L100.0010 #### [facility] [address] [place] [address] Chloride [Moles/Vol] 99 mmol/L Normal 98-107 [facility] Comment on above: Performed By: #### L 100.0350, L100.0030, L100.0010 #### [facility] [address] [place] [address] CO2 [Moles/Vol] 26 mmol/L Normal 22-29 [facility] Comment on above: Performed By: #### L 100.0350, L100.0030, L100.0010 #### [facility] [address] [place] [address] Creatinine [Mass/Vol] 0.90 mg/dL Normal 0.50-0.90 [facility] Comment on above: Performed By: #### L 100.0350, L100.0030, L100.0010 #### [facility] [address] [place] [address] eGFR if AFR MARICEL > 60 ml/min/1.73m2 Normal [facility] Comment on above: Result Comment: eGFR >= [...] By: #### L 100.0350, L100.0030, L100.0010 #### [facility] [address] [place] [address] eGFR nonAFR Maricel > 60 ml/Min/1.73m2 Normal [facility] Comment on above: Performed By: #### L 100.0350, L100.0030, L100.0010 #### [facility] [address] [place] [address] Glucose [Mass/Vol] 212 mg/dL High 82-115 [facility] Comment on above: Performed By: #### L 100.0350, L100.0030, L100.0010 #### [facility] [address] [place] [address] Potassium [Moles/Vol] 4.0 mmol/L Normal 3.5-5.0 [facility] Comment on above: Performed By: #### L 100.0350, L100.0030, L100.0010 #### - LABORATORY [address] [place] [address] Sodium [Moles/Vol] 137 mmol/L Normal 135-145 [facility] Comment on above: Performed By: #### L 100.0350, L100.0030, L100.0010 #### [facility] [address] [place] [address] Urea nitrogen [Mass/Vol] 24 mg/dL High 8-23 [facility] Comment on above: Performed By: #### L 100.0350, L100.0030, L100.0010 #### [facility] [address] [place] [address] CBCon 01-22-2019 Basophils (Bld) [#/Vol] 0.00 x10(3) Normal 0.00-0.10 [facility] Comment on above: Performed By: #### L 200.0010 #### [facility] [address] [place] [address] Basophils/100 WBC (Bld) 0.3 % Normal 0.0-1.0 [facility] Comment on above: Performed By: #### L 200.0010 #### [facility] [address] [place] [address] Eosinophils (Bld) [#/Vol] 0.20 x10(3) Normal 0.00-0.54 [facility] Comment on above: Performed By: #### L 200.0010 #### [facility] [address] [place] [address] Eosinophils/100 WBC (Bld) 3.0 % Normal 0.5-4.9 [facility] Comment on above: Performed By: #### L 200.0010 #### [facility] [address] [place] [address] Erythrocyte distribution width (RBC) [Ratio] 13.7 % Normal 12.5-15.7 [facility] Comment on above: Performed By: #### L 200.0010 #### [facility] [address] [place] [address] Hematocrit (Bld) [Volume fraction] 45.9 % Normal 36.0-48.0 [facility] Comment on above: Performed By: #### L 200.0010 #### [facility] [address] [place] [address] Hemoglobin (Bld) [Mass/Vol] 15.5 g/dL Normal 12.0-16.0 [facility] Comment on above: Performed By: #### L 200.0010 #### [facility] [address] [place] [address] Lymphocytes (Bld) [#/Vol] 1.70 x10(3) Normal 1.00-3.50 [facility] Comment on above: Performed By: #### L 200.0010 #### [facility] [address] [place] [address] Lymphocytes/100 WBC (Bld) 22.1 % Normal 16.0-48.0 [facility] Comment on above: Performed By: #### L 200.0010 #### [facility] [address] [place] [address] MCH (RBC) [Entitic mass] 30.9 pg Normal 28.5-32.9 [facility] Comment on above: Performed By: #### L 200.0010 #### [facility] [address] [place] [address] MCHC (RBC) [Mass/Vol] 33.8 g/dL Normal 33.0-36.0 [facility] Comment on above: Performed By: #### L 200.0010 #### [facility] [address] [place] [address] MCV (RBC) [Entitic vol] 91.3 fL Normal 80.0-99.0 [facility] Comment on above: Performed By: #### L 200.0010 #### [facility] [address] [place] [address] Monocytes (Bld) [#/Vol] 0.60 x10(3) Normal 0.30-0.80 [facility] Comment on above: Performed By: #### L 200.0010 #### [facility] [address] [place] [address] Monocytes/100 WBC (Bld) 8.3 % Normal 4.3-11.2 [facility] Comment on above: Performed By: #### L 200.0010 #### [facility] [address] [place] [address] [place] [address] Neutrophils (Bld) [#/Vol] 5.10 x10(3) Normal 1.40-6.50 [facility] Comment on above: Performed By: #### L 200.0010 #### [facility] [address] [place] [address] Neutrophils/100 WBC (Bld) 66.3 % Normal 45.0-73.0 [facility] Comment on above: Performed By: #### L 200.0010 #### [facility] [address] [place] [address] Platelet mean volume (Bld) [Entitic vol] 8.2 fL Normal 7.5-9.5 [facility] Comment on above: Performed By: #### L 200.0010 #### [facility] [address] [place] [address] Platelets (Bld) [#/Vol] 124 X10(3) Low 150-450 [facility] Comment on above: Performed By: #### L 200.0010 #### [facility] [address] [place] [address] RBC (Bld) [#/Vol] 5.02 x10(6) High 3.30-5.00 [facility] Comment on above: Performed By: #### L 200.0010 #### [facility] [address] [place] [address] WBC (Bld) [#/Vol] 7.7 x10(3) Normal 4.5-10.0 [facility] Comment on above: Performed By: #### L 200.0010 #### [facility] [address] [place] [address] ABD/PEL W CONTRASTon CT ABD/PEL W CONTRAST [address] [address] Name: TUNDE JACK Phys: DESIREE MAY M.D. : [birth year] Age: 68 Sex: F Acct: [id number] Loc: ED Exam Date: 09/05/19 Status: REG ER Radiology No.: [id number] Unit Number: [id number] Exam # Type/Exam [id number] CT / CT ABD/PEL W CONTRAST CT [...] By: CHI CASTANEDA D.O. Tests performed at: [place] [id number] [facility] HEPATIC PANELon 01-22-2019 A:G RATIO 1.32 Normal 1.1-2.5 [facility] Comment on above: Performed By: #### L 100.0350, L100.0030, L100.0010 #### [facility] [address] [place] [address] 59603 Albumin [Mass/Vol] 4.1 g/dL Normal 3.5-5.2 [facility] Comment on above: Performed By: #### L 100.0350, L100.0030, L100.0010 #### ML - LABORATORY [address] [place] [address] 23137 ALK. PHOS 79 U/L Normal 35-105 [facility] Comment on above: Performed By: #### L 100.0350, L100.0030, L100.0010 #### ML - LABORATORY [address] [place] [address] 75232 ALT [Catalytic activity/Vol] 23 U/L Normal 5-33 [facility] Comment on above: Performed By: #### L 100.0350, L100.0030, L100.0010 #### - LABORATORY [address] [place] [address] 72765 AST [Catalytic activity/Vol] 23 U/L Normal 5-32 [facility] Comment on above: Performed By: #### L 100.0350, L100.0030, L100.0010 #### - LABORATORY [address] [place] [address] 19778 Bilirubin Ql (U) 0.3 mg/dL Normal 0.2-1.2 [facility] Comment on above: Performed By: #### L 100.0350, L100.0030, L100.0010 #### [facility] [address] [place] [address] 65658 DIRECT BILIRUBI <0.2 Normal 0.0-0.3 [facility] Comment on above: Performed By: #### L 100.0350, L100.0030, L100.0010 #### ML - LABORATORY [address] [place] [address] 21891 Globulin (S) [Mass/Vol] 3.1 g/dL Normal 1.5-4.5 [facility] Comment on above: Performed By: #### L 100.0350, L100.0030, L100.0010 #### - LABORATORY [address] [place] [address] 96517 Protein [Mass/Vol] 7.2 g/dL Normal 6.4-8.3 [facility] Comment on above: Performed By: #### L 100.0350, L100.0030, L100.0010 #### ML - LABORATORY [address] [place] [address] 27003 LIPASEon 01-22-2019 Lipase [Catalytic activity/Vol] 44 U/L Normal 13-60 [facility] Comment on above: Performed By: #### L 100.0350, L100.0030, L100.0010 #### ML - LABORATORY [address] [place] [address] 72736 URINALYSISon 01-22-2019 Bilirubin Ql (U) Negative Normal NEGATIVE [facility] Comment on above: Order Comment: Urine Specimen Source+ CLEAN CATCH Performed By: #### L 200.3000 #### ML [facility] [address] [place] [address] 08837 Color (U) YELLOW Normal YELLOW [facility] Comment on above: Order Comment: Urine Specimen Source+ CLEAN CATCH Performed By: #### L 200.3000 #### ML [facility] [address] [place] [address] 42300 Glucose Ql (U) >=1000 Normal NEGATIVE [facility] Comment on above: Order Comment: Urine Specimen Source+ CLEAN CATCH Performed By: #### L 200.3000 #### [facility] [address] [place] [address] 87242 Hemoglobin Ql (U) TRACE-INTACT Normal [facility] Comment on above: Order Comment: Urine Specimen Source+ CLEAN CATCH Performed By: #### L 200.3000 #### ML [facility] [address] [place] [address] 35015 Leukocyte esterase Test strip Ql (U) Negative Normal NEGATIVE [facility] Comment on above: Order Comment: Urine Specimen Source+ CLEAN CATCH Performed By: #### L 200.3000 #### ML [facility] [address] [place] [address] 10133 Nitrite Ql (U) Negative Normal NEGATIVE [facility] Comment on above: Order Comment: Urine Specimen Source+ CLEAN CATCH Performed By: #### L 200.3000 #### ML [facility] [address] [place] [address] 59767 pH (U) 5.5 [pH] Normal 5.0-8.0 [facility] Comment on above: Order Comment: Urine Specimen Source+ CLEAN CATCH Performed By: #### L 200.3000 #### ML - LABORATORY [address] [place] [address] 49211 Protein Ql (U) Negative Normal NEGATIVE [facility] Comment on above: Order Comment: Urine Specimen Source+ CLEAN CATCH Performed By: #### L 200.3000 #### ML - LABORATORY [address] [place] [address] 23665 URINE APPEARANC CLEAR Normal CLEAR [facility] Comment on above: Order Comment: Urine Specimen Source+ CLEAN CATCH Performed By: #### L 200.3000 #### ML - LABORATORY [address] [place] [address] 44473 URINE KETONE Negative Normal NEGATIVE [facility] Comment on above: Order Comment: Urine Specimen Source+ CLEAN CATCH Performed By: #### L 200.3000 #### ML - LABORATORY [address] [place] [address] 37309 URINE SPECIFIC <=1.005 Normal 1.001-1.035 [facility] Comment on above: Order Comment: Urine Specimen Source+ CLEAN CATCH Performed By: #### L 200.3000 #### ML - LABORATORY [address] [place] [address] 15379 URINE UROBILINO 0.2 EU/DL Normal 0.2-1.0 [facility] Comment on above: Order Comment: Urine Specimen Source+ CLEAN CATCH Performed By: #### L 200.3000 #### ML - LABORATORY [address] [place] [address] 84978 [id number] 01-15-2019 HbA1c (Bld) [Mass fraction] 7.2 % High 4.3-6.1 [facility] Comment on above: Result Comment: Estimated Average Glucose: HgbA1C % mg/dL 4.0 68 5.0 97 6.0 125 7.0 154 8.0 183 9.0 212 10.0 240 Source: [employer] web site, 2017. Performed By: #### L 200.2000 #### ML - LABORATORY [address] [place] [address] 36011 LIPID PANELon 01-15-2019 Cholesterol [Mass/Vol] 158 mg/dL Normal 130-200 [facility] Comment on above: Order Comment: ADD O N Performed By: #### L 100.0040 #### ML - LABORATORY [address] [place] [address] 93382 Cholesterol in HDL [Mass/Vol] 30 mg/dL [facility] Comment on above: Order Comment: ADD [...] #### L 100.0040 #### ML - LABORATORY [address] [place] [address] 91298 Cholesterol in LDL [Mass/Vol] 55 mg/dL [facility] Comment on above: Order Comment: ADD O N Result Comment: LDL: OPTIMAL FOR PEOPLE AT VERY HIGH RISK <70 OPTIMAL <100 NEAR OPTIMAL 100-129 BORDERLINE HIGH 130-159 HIGH 160-189 VERY HIGH >=190 Source: 2009 NCEP ATP III, ADA Guidelines Reviewed: August, Performed By: #### L 100.0040 #### ML - LABORATORY [address] [place] [address] 20439 Cholesterol in LDL/Cholesterol in HDL [Mass ratio] 1.8 [facility] Comment on above: Order Comment: ADD O N Performed By: #### L 100.0040 #### ML - LABORATORY [address] [place] [address] 04581 Cholesterol in VLDL [Mass/Vol] 73 mg/dL High 6-40 [facility] Comment on above: Order Comment: ADD O N Performed By: #### L 100.0040 #### ML - LABORATORY [address] [place] [address] 35947 Triglyceride [Mass/Vol] 365 mg/dL [facility] Comment on above: Order Comment: ADD O N Result Comment: TRIG : DESIRABLE: <150 mg/dL Performed By: #### L 100.0040 #### ML - LABORATORY [address] [place] [address] 48395 Hoda 01-14-2019 ALT [Catalytic activity/Vol] 29 U/L Normal -33 [facility] Comment on above: Performed By: #### L 100.0010, L100.0240, L100.0250 #### ML - LABORATORY [address] [place] [address] 88500 Genesis 01-14-2019 AST [Catalytic activity/Vol] 30 U/L Normal -32 [facility] Comment on above: Performed By: #### L 100.0010, L100.0240, L100.0250 #### ML - LABORATORY [address] [place] [address] 01576 BMPon 01-14-2019 Anion gap [Moles/Vol] 16.6 mmol/L Normal 15- [facility] Comment on above: Performed By: #### L 100.0010, L100.0240, L100.0250 #### ML - LABORATORY [address] [place] [address] 73160 Calcium [Mass/Vol] 10.3 mg/dL High 8.8-10.2 [facility] Comment on above: Performed By: #### L 100.0010, L100.0240, L100.0250 #### ML - LABORATORY [address] [place] [address] 82022 Chloride [Moles/Vol] 98 mmol/L Normal 98-107 [facility] Comment on above: Performed By: #### L 100.0010, L100.0240, L100.0250 #### ML - LABORATORY [address] [place] [address] 79649 CO2 [Moles/Vol] 28 mmol/L Normal 22-29 [facility] Comment on above: Performed By: #### L 100.0010, L100.0240, L100.0250 #### ML - LABORATORY [address] [place] [address] 91548 Creatinine [Mass/Vol] 0.74 mg/dL Normal 0.50-0.90 [facility] Comment on above: Performed By: #### L 100.0010, L100.0240, L100.0250 #### [facility] [address] [place] [address] 71908 eGFR if AFR MARICEL > 60 ml/min/1.73m2 Normal [facility] Comment on above: Result Comment: eGFR >= [...] By: #### L 100.0010, L100.0240, L100.0250 #### [facility] [address] [place] [address] 84212 eGFR nonAFR Maricel > 60 ml/Min/1.73m2 Normal [facility] Comment on above: Performed By: #### L 100.0010, L100.0240, L100.0250 #### [facility] [address] [place] [address] 10140 Glucose [Mass/Vol] 208 mg/dL High 82-115 [facility] Comment on above: Performed By: #### L 100.0010, L100.0240, L100.0250 #### [facility] [address] [place] [address] Potassium [Moles/Vol] 4.6 mmol/L Normal 3.5-5.0 [facility] Comment on above: Performed By: #### L 100.0010, L100.0240, L100.0250 #### [facility] [address] [place] [address] 22695 Sodium [Moles/Vol] 138 mmol/L Normal 135-145 [facility] Comment on above: Performed By: #### L 100.0010, L100.0240, L100.0250 #### ML - LABORATORY [address] [place] [address] 07957 Urea nitrogen [Mass/Vol] 16 mg/dL Normal 8-23 [facility] Comment on above: Performed By: #### L 100.0010, L100.0240, L100.0250 #### ML - LABORATORY [address] [place] [address] 45882 [facility] Anion gap [Moles/Vol] 19.0 mmol/L Normal 15-22 [facility] Comment on above: Performed By: #### L 100.0010 #### ML - LABORATORY [address] [place] [address] 22254 Calcium [Mass/Vol] 10.0 mg/dL Normal 8.8-10.2 [facility] Comment on above: Performed By: #### L 100.0010 #### ML - LABORATORY [address] [place] [address] 36009 Chloride [Moles/Vol] 97 mmol/L Low 98-107 [facility] Comment on above: Performed By: #### L 100.0010 #### ML [facility] [address] [place] [address] 57139 CO2 [Moles/Vol] 26 mmol/L Normal 22-29 [facility] Comment on above: Performed By: #### L 100.0010 #### ML - LABORATORY [address] [place] [address] 41140 Creatinine [Mass/Vol] 0.98 mg/dL High 0.50-0.90 [facility] Comment on above: Performed By: #### L 100.0010 #### ML - LABORATORY [address] [place] [address] 26417 eGFR if AFR MARICEL > 60 ml/min/1.73m2 Normal [facility] Comment on above: Result Comment: eGFR >= [...] #### L 100.0010 #### ML - LABORATORY [address] [place] [address] 76199 eGFR nonAFR Maricel 57 Normal [facility] Comment on above: Performed By: #### L 100.0010 #### ML - LABORATORY [address] [place] [address] 89042 Glucose [Mass/Vol] 171 mg/dL High 82-115 [facility] Comment on above: Performed By: #### L 100.0010 #### ML [facility] [address] [place] [address] 19075 Potassium [Moles/Vol] 4.0 mmol/L Normal 3.5-5.0 [facility] Comment on above: Performed By: #### L 100.0010 #### ML [facility] [address] [place] [address] 32279 Sodium [Moles/Vol] 138 mmol/L Normal 135-145 [facility] Comment on above: Performed By: #### L 100.0010 #### [facility] [address] [place] [address] 54962 Urea nitrogen [Mass/Vol] 22 mg/dL Normal 8-23 [facility] Comment on above: Performed By: #### L 100.0010 #### ML [facility] [address] [place] [address] [place] [address] PTHon 11-12-2018 PTH 26.5 pg/mL Normal 15-65 [facility] Comment on above: Performed By: #### L 304.0135 #### ML [facility] [address] [place] [address] [place] [address] BMPon 10-16-2018 Anion gap [Moles/Vol] 20.3 mmol/L Normal 15-22 [facility] Comment on above: Performed By: #### L 100.0010, L304.0470 #### ML - LABORATORY [address] [place] [address] 20031 Calcium [Mass/Vol] 10.9 mg/dL High 8.8-10.2 [facility] Comment on above: Performed By: #### L 100.0010, L304.0470 #### ML - LABORATORY [address] [place] [address] 34604 Chloride [Moles/Vol] 100 mmol/L Normal 98-107 [facility] Comment on above: Performed By: #### L 100.0010, L304.0470 #### ML - LABORATORY [address] [place] [address] 18464 CO2 [Moles/Vol] 27 mmol/L Normal 22-29 [facility] Comment on above: Performed By: #### L 100.0010, L304.0470 #### ML - LABORATORY [address] [place] [address] 56719 Creatinine [Mass/Vol] 1.03 mg/dL High 0.50-0.90 [facility] Comment on above: Performed By: #### L 100.0010, L304.0470 #### ML - LABORATORY [address] [place] [address] 21908 eGFR if AFR MARICEL > 60 ml/min/1.73m2 Normal [facility] Comment on above: Result Comment: eGFR >= [...] L 100.0010, L304.0470 #### ML - LABORATORY [address] [facility] [place] [address] eGFR nonAFR Maricel 54 Normal [facility] Comment on above: Performed By: #### L 100.0010, L304.0470 #### [facility] [address] [place] [address] [place] [address] Glucose [Mass/Vol] 186 mg/dL High 82-115 [facility] Comment on above: Performed By: #### L 100.0010, L304.0470 #### ML - LABORATORY [address] [place] [address] 30781 Potassium [Moles/Vol] 4.3 mmol/L Normal 3.5-5.0 [facility] Comment on above: Performed By: #### L 100.0010, L304.0470 #### ML - LABORATORY [address] [place] [address] 03086 Sodium [Moles/Vol] 143 mmol/L Normal 135-145 [facility] Comment on above: Performed By: #### L 100.0010, L304.0470 #### ML - LABORATORY [address] [place] [address] 03831 Urea nitrogen [Mass/Vol] 28 mg/dL High 8-23 [facility] Comment on above: Performed By: #### L 100.0010, L304.0470 #### ML - LABORATORY [address] [place] [address] 74125 PTHon 10-16-2018 PTH 25.1 pg/mL Normal 15-65 [facility] Comment on above: Performed By: #### L 304.0135 #### ML - LABORATORY [address] [place] [address] 82923 VITAMIN Don 10-16-2018 VITAMIN D 48.5 ng/mL Normal 30-100 [facility] Comment on above: Performed By: #### L 100.0010, L304.0470 #### ML - LABORATORY [address] [place] [address] 55825 [employer] Cytology Reporton 2018 [employer] Janitor Cytology Report . Pathology ReportsAccession: Collected Date/Time: Received Date/Time: Pathologist:[id number] 05/21/2018 16:06 EST 05/21/2018 18:00 MD JOY FARMER Lead Janitor Cytology ReportSPECIMEN:Specimen Description: Liquid Prep w/ HPVSpecimen: Cervical/EndocervicalScre ening or Diagnostic: ScreeningRELEVANT HISTORY:LMP: not givenSPECIMEN ADEQUACY:SATISFACTORY FOR EVALUATIONENDOCERVICAL/TR ANSFORMATIONAL ZONE COMPONENT PRESENTINTERPRETATION/RES ULTS:NEGATIVE FOR INTRAEPITHELIAL LESION OR MALIGNANCYADJUNCTIVE TESTING:HIGH RISK HPV DNA TESTING ORDERED, REPORT TO FOLLOW UNDER SEPARATE COVERSUGGESTIONS/EDUCATIO NAL NOTES:THIS CASE HAS BEEN REVIEWED FOR 10% Q.C. RESCREENElectronically Signed byPathology report verified by [facility].Screened by: HERLINDA DWElectronically signed by JOY Whalengn-Out Date: 05/27/2018 10:24Performing Lab: [facility], [address] [place], [place] [address]Discentral hospitalThe Pap test is a screening test for cervical cancer. As evidenced by published data, it is subject to both inherent false negative and false positive results. Your patient's results should be interpreted in context with pertinent clinical history including gynecological examination. [facility] Comment on above: Performed By: #### G YCR ####[place] [address] HPVon 05-27-2018 HPV Interp Normal See Interp HPVN [facility] Comment on above: Order Comment: Order placed by AP_HPV_ORDER rule from [id number] Result Comment: High Risk HPV Typing: NEGATIVEHPV [...] Interp HPVN Performed By: #### H PV ####[place] [address] [place] [address] 03623 HPV Source Cervix [facility] Comment on above: Order Comment: Order placed by AP_HPV_ORDER rule from [id number] Performed By: #### H PV ####[place] [address] [place] [address] 40002 PROGRESSon 05-17-2018 PROGRESS HNO ID: [id number] Author: Provider [facility] Service: (none) Author Type: Physician Type: Progress Notes Filed: 05/17/2018 12:29 PM Note Text: [facility] [place] [address] FIRST CARE REPORT Patient: MICKEYTUNDE Erika SAM,-RAIMUNDO MartinezNSarahPSarah [id number] F Status: REG POV FC [...] 1151 B/P 121/75 05/17 1151 121/75 05/17 115 Temp 97.6 05/17 1151 97.6 05/17 1151 [...] Diabetes Former cigarette smoker 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 o Call or return to [facility] if you experience problems relating to your [...] patient and were understood. Report to the [facility] Emergency Department if any further problems occur. [...] SEE SAM F.N.PSarah Signed By: SEE SAM FSarahNSarahPSarah Tests performed at: [place] [id number] Normal [facility] STRP SCNon 05-17-2018 STRP SCN Performed at: [facility] [address] [place] [address] STREP SCREEN NEGATIVE - CULTURE TO FOLLOW REFERENCE RANGE NORMAL RESULT IS NEGATIVE. Normal [facility] 05-17-2018 THT ORGANISM 1: NO GROUP A BETA STREP ISOLATED [facility] Comment on above: Performed By: #### M 130.0700 #### ML - LABORATORY [address] [place], [place] [address] SURGICAL PATHOLOGY, CONVERTE Don 04-21-2014 [facility] Vital Signs Date Time Vital Sign Value Performing Clinician Facility 06-04-2023 10:37-0500 Body height 162.56 [facility] Work Phone: 06-04-2023 10:37-0500 Body mass index (BMI) [Ratio] 35.4 kg/m2 [facility] Work Phone: 06-04-2023 10:37-0500 Body surface area Derived from formula 2 m2 Latia Sparks [employer] Work Phone: [facility] Work Phone: 06-04-2023 10:37-0500 Body weight 93.44 kg Latia Sparks [employer] Work Phone: [facility] Work Phone: 06-04-2023 10:37-0500 Diastolic blood pressure 80 mm[Hg] Latia Sparks [employer] Work Phone: [facility] Work Phone: 06-04-2023 10:37-0500 Heart rate 96 /min Latia Sparks [employer] Work Phone: [facility] Work Phone: 06-04-2023 10:37-0500 Inhaled oxygen concentration 21 % Latia Sparks [employer] Work Phone: [facility] Work Phone: 06-04-2023 10:37-0500 Inhaled oxygen flow rate 0 L/min Latia Sparks [employer] Work Phone: [facility] Work Phone: 06-04-2023 10:37-0500 SaO2% (BldA) [Mass fraction] 98 % Latia Sparks [employer] Work Phone: [facility] Work Phone: 06-04-2023 10:37-0500 Systolic blood pressure 138 mm[Hg] Latia Sparks [employer] Work Phone: [facility] Work Phone: 05-10-2023 10:03-0500 Body height 162.56 cm Latia Sparks [employer] Work Phone: [facility] Work Phone: 05-10-2023 10:03-0500 Body mass index (BMI) [Ratio] 35.7 kg/m2 Latia Sparks [employer] Work Phone: [facility] Work Phone: 05-10-2023 10:03-0500 Body surface area Derived from formula 2 m2 Latia Sparks [employer] Work Phone: [facility] Work Phone: 05-10-2023 10:03-0500 Body temperature 97.8 [degF] Latia Sparks [employer] Work Phone: [facility] Work Phone: 05-10-2023 10:03-0500 Body weight 94.26 kg Latia Sparks [employer] Work Phone: [facility] Work Phone: 05-10-2023 10:03-0500 Diastolic blood pressure 76 mm[Hg] Latia Sparks [employer] Work Phone: [facility] Work Phone: 05-10-2023 10:03-0500 Heart rate 103 /min Latia Sparks [employer] Work Phone: [facility] Work Phone: 05-10-2023 10:03-0500 Inhaled oxygen concentration 21 % Latia Sparks [employer] Work Phone: [facility] Work Phone: 05-10-2023 10:03-0500 Inhaled oxygen flow rate 0 L/min Latia Sparks [employer] Work Phone: [facility] Work Phone: 05-10-2023 10:03-0500 SaO2% (BldA) [Mass fraction] 96 % Latia Sparks [employer] Work Phone: [facility] Work Phone: 05-10-2023 10:03-0500 Systolic blood pressure 133 mm[Hg] Latia Sparks [employer] Work Phone: [facility] Work Phone: 05-09-2023 13:36-0500 Body height 162.6 cm Pmh 2 [facility] [employer] [facility] 05-09-2023 13:36-0500 Body mass index (BMI) [Ratio] 35.36 kg/m2 Pmh 2 [facility] [employer] [facility] 05-09-2023 13:36-0500 Body weight 93.44 kg Pm 2 [facility] 04-18-2023 14:10-0500 Body height 162.56 cm Latia Sparks [employer] Work Phone: [facility] Work Phone: 04-18-2023 14:10-0500 Body mass index (BMI) [Ratio] 35.7 kg/m2 Latia Sparks [employer] Work Phone: [facility] Work Phone: 04-18-2023 14:10-0500 Body surface area Derived from formula 2 m2 Latia Sparks [employer] Work Phone: [facility] Work Phone: 04-18-2023 14:10-0500 Body temperature 97.8 [degF] Latia Sparks [employer] Work Phone: [facility] Work Phone: 04-18-2023 14:10-0500 Body weight 94.35 kg Latia Sparks [employer] Work Phone: [facility] Work Phone: 04-18-2023 14:10-0500 Diastolic blood pressure 80 mm[Hg] Latia Sparks [employer] Work Phone: [facility] Work Phone: 04-18-2023 14:10-0500 Heart rate 96 /min Latia Sparks [employer] Work Phone: [facility] Work Phone: 04-18-2023 14:10-0500 Inhaled oxygen concentration 21 % Latia Sparks [employer] Work Phone: [facility] Work Phone: 04-18-2023 14:10-0500 Inhaled oxygen flow rate 0 L/min Latia Sparks [employer] Work Phone: [facility] Work Phone: 04-18-2023 14:10-0500 Respiratory rate 18 /min Latia Sparks [employer] Work Phone: [facility] Work Phone: 04-18-2023 14:10-0500 SaO2% (BldA) [Mass fraction] 96 % Latia Sparks [employer] Work Phone: [facility] Work Phone: 04-18-2023 14:10-0500 Systolic blood pressure 138 mm[Hg] Latia Sparks [employer] Work Phone: [facility] Work Phone: 11-15-2022 14:24-0400 Diastolic blood pressure 82 mm[Hg] Latia Sparks [employer] Work Phone: [facility] Work Phone: 11-15-2022 14:24-0400 Systolic blood pressure 142 mm[Hg] Latia Sparks [employer] Work Phone: [facility] Work Phone: 11-15-2022 14:17-0400 Body height 162.56 cm Latia Sparks [employer] Work Phone: [facility] Work Phone: 11-15-2022 14:17-0400 Body mass index (BMI) [Ratio] 37.4 kg/m2 Latia Sparks [employer] Work Phone: [facility] Work Phone: 11-15-2022 14:17-0400 Body surface area Derived from formula 2 m2 Latia Sparks DRESSMAKER HELPER Work Phone: [facility] Work Phone: 11-15-2022 14:17-0400 Body weight 98.88 kg Latia Sparks DRESSMAKER HELPER Work Phone: [facility] Work Phone: 11-15-2022 14:17-0400 Diastolic blood pressure 78 mm[Hg] Latia Sparks DRESSMAKER HELPER Work Phone: [facility] Work Phone: 11-15-2022 14:17-0400 Heart rate 94 /min Latia Bridger DRESSMAKER HELPER Work Phone: [facility] Work Phone: 11-15-2022 14:17-0400 SaO2% (BldA) [Mass fraction] 93 % Latia Sparks DRESSMAKER HELPER Work Phone: [facility] Work Phone: 11-15-2022 14:17-0400 Systolic blood pressure 143 mm[Hg] Latia Sparks DRESSMAKER HELPER Work Phone: [facility] Work Phone: 08-02-2022 10:15-0400 Body height 162.56 cm Latia Sparks DRESSMAKER HELPER Work Phone: [facility] Work Phone: 08-02-2022 10:15-0400 Body mass index (BMI) [Ratio] 36.7 kg/m2 Latia Sparks DRESSMAKER HELPER Work Phone: [facility] Work Phone: 08-02-2022 10:15-0400 Body surface area Derived from formula 2 m2 Latia Sparks DRESSMAKER HELPER Work Phone: [facility] Work Phone: 08-02-2022 10:15-0400 Body temperature 98.5 [degF] Latia Sparks DRESSMAKER HELPER Work Phone: [facility] Work Phone: 08-02-2022 10:15-0400 Body weight 97.07 kg Latia Sparks DRESSMAKER HELPER Work Phone: [facility] Work Phone: 08-02-2022 10:15-0400 Diastolic blood pressure 82 mm[Hg] Latia Sparks DRESSMAKER HELPER Work Phone: [facility] Work Phone: 08-02-2022 10:15-0400 Heart rate 98 /min Latia Sparks DRESSMAKER HELPER Work Phone: [facility] Work Phone: 08-02-2022 10:15-0400 Heart Rate Rhythm 1 1 Latia Sparks DRESSMAKER HELPER Work Phone: [facility] Work Phone: 08-02-2022 10:15-0400 Inhaled oxygen concentration 21 % Latia Sparks DRESSMAKER HELPER Work Phone: [facility] Work Phone: 08-02-2022 10:15-0400 Inhaled oxygen flow rate 0 L/min Latia Sparks DRESSMAKER HELPER Work Phone: [facility] Work Phone: 08-02-2022 10:15-0400 Respiratory rate 18 /min Latia Sparks DRESSMAKER HELPER Work Phone: [facility] Work Phone: 08-02-2022 10:15-0400 SaO2% (BldA) [Mass fraction] 96 % Latia Sparks DRESSMAKER HELPER Work Phone: [facility] Work Phone: 08-02-2022 10:15-0400 Systolic blood pressure 138 mm[Hg] Latia Sparks DRESSMAKER HELPER Work Phone: [facility] Work Phone: 07-23-2022 13:38-0500 Diastolic blood pressure 78 mm[Hg] Latia Sparks DRESSMAKER HELPER Work Phone: [facility] Work Phone: 07-23-2022 13:38-0500 Systolic blood pressure 142 mm[Hg] Latia Sparks DRESSMAKER HELPER Work Phone: [facility] Work Phone: 07-23-2022 12:13-0500 Body height 162.56 cm Latia Sparks DRESSMAKER HELPER Work Phone: [facility] Work Phone: 07-23-2022 12:13-0500 Body mass index (BMI) [Ratio] 36 kg/m2 Latia Sparks DRESSMAKER HELPER Work Phone: [facility] Work Phone: 07-23-2022 12:13-0500 Body surface area Derived from formula 2 m2 Latia Sparks DRESSMAKER HELPER Work Phone: [facility] Work Phone: 07-23-2022 12:13-0500 Body temperature 98.3 [degF] Latia Sparks DRESSMAKER HELPER Work Phone: [facility] Work Phone: 07-23-2022 12:13-0500 Body weight 95.26 kg Latia Sparks DRESSMAKER HELPER Work Phone: [facility] Work Phone: 07-23-2022 12:13-0500 Diastolic blood pressure 92 mm[Hg] Latia Sparks DRESSMAKER HELPER Work Phone: [facility] Work Phone: 07-23-2022 12:13-0500 Heart rate 118 /min Latia Sparks DRESSMAKER HELPER Work Phone: [facility] Work Phone: 07-23-2022 12:13-0500 Heart Rate Rhythm 1 1 Latia Sparks DRESSMAKER HELPER Work Phone: [facility] Work Phone: 07-23-2022 12:13-0500 Inhaled oxygen concentration 21 % Latia Sparks DRESSMAKER HELPER Work Phone: [facility] Work Phone: 07-23-2022 12:13-0500 Inhaled oxygen flow rate 0 L/min Latia Sparks DRESSMAKER HELPER Work Phone: [facility] Work Phone: 07-23-2022 12:13-0500 Respiratory rate 21 /min Latia Sparks DRESSMAKER HELPER Work Phone: [facility] Work Phone: 07-23-2022 12:13-0500 SaO2% (BldA) [Mass fraction] 96 % Latia Sparks DRESSMAKER HELPER Work Phone: [facility] Work Phone: 07-23-2022 12:13-0500 Systolic blood pressure 168 mm[Hg] Latia Sparks DRESSMAKER HELPER Work Phone: [facility] Work Phone: 09-21-2021 13:25-0400 Body height 162.56 cm Isidra Hernandez Other [facility] Other 09-21-2021 13:25-0400 Body mass index (BMI) [Ratio] 37.24 kg/m2 Isidra Hernandez Other [facility] Other 09-21-2021 13:25-0400 Body temperature 97.9 [degF] Isidra Hernandez Other [facility] Other 09-21-2021 13:25-0400 Body weight 98.43 kg Isidra Hernandez Other [facility] Other 09-21-2021 13:25-0400 Diastolic blood pressure 68 mm[Hg] Isidra Hernandez Other [facility] Other 09-21-2021 13:25-0400 Respiratory rate 20 /min Isidra Hernandez Other [facility] Other 09-21-2021 13:25-0400 SaO2% (BldA) [Mass fraction] 96 % Isidra Hernandez Other [facility] Other 09-21-2021 13:25-0400 Systolic blood pressure 146 mm[Hg] Isidra Hernandez Other [facility] Other Encounters Encounter Date Encounter Type Care Provider Facility Start: 06-10-2023 End: 06-11-2023 ambulatory EJ B APLING Not Available Start: 06-04-2023 End: 06-04-2023 FQHC visit, estab pt Latia Hoffmanim DRESSMAKER HELPER Work Phone: [facility] Work Phone: Start: 06-04-2023 End: 06-04-2023 General Latia Sparks DRESSMAKER HELPER Work Phone: [facility] Work Phone: Start: 05-27-2023 End: 05-28-2023 ambulatory EJ Alfred MADI Not Available Start: 05-17-2023 End: 05-17-2023 Evaluation and management of inpatient SUKUMAR A [facility] Start: 05-16-2023 End: 05-17-2023 Evaluation and management of inpatient [facility] Start: 05-16-2023 End: 05-16-2023 Evaluation and management of inpatient [facility] Start: 05-10-2023 End: 05-11-2023 ambulatory [facility] Start: 05-10-2023 End: 05-10-2023 Admission to same day surgery center Latia Sparks DRESSMAKER HELPER Work Phone: [facility] Work Phone: Start: 05-10-2023 End: 05-10-2023 FQ visit, estab pt Latia Sparks DRESSMAKER HELPER Work Phone: [facility] Work Phone: Start: 05-09-2023 Encounter for other preprocedural examination [facility] Start: 05-09-2023 End: 05-09-2023 Patient encounter procedure Pmh Pre-Admission Testing 2 [facility] - Pre Admit Comment on above: Preop examination (P rimary Dx); Type 2 diabetes mellitus without complication, without long-term current use of insulin ([facility]); Hypertension, unspecified type Start: 05-09-2023 End: 05-09-2023 Preprocedural examination done Pm 2 [facility] Start: 05-09-2023 End: 05-13-2023 ambulatory HARDY JAY [facility] Start: 05-07-2023 End: 05-07-2023 ambulatory HARDY JAY Not Available Start: 04-18-2023 End: 04-18-2023 FQHC visit, estab pt Janina Meghan BICYCLE COURIER-S Work Phone: [facility] Work Phone: Start: 04-18-2023 End: 04-18-2023 FQHC visit, estab pt Latia Sparks DRESSMAKER HELPER Work Phone: [facility] Work Phone: Start: 11-15-2022 End: 11-15-2022 FQHC visit, estab pt Latia Sparks DRESSMAKER HELPER Work Phone: [facility] Work Phone: Start: 11-15-2022 End: 11-15-2022 General Latia Sparks DRESSMAKER HELPER Work Phone: [facility] Work Phone: Start: 11-09-2022 End: 11-10-2022 ambulatory LATIA SPARKS [facility] Start: 11-08-2022 End: 11-08-2022 FQHC visit, estab pt Janina Meghan BICYCLE COURIER-S Work Phone: [facility] Work Phone: Start: 11-08-2022 End: 11-08-2022 Encounter for preprocedural laboratory examination Latia Sparks DRESSMAKER HELPER Work Phone: [facility] Work Phone: Start: 11-08-2022 End: 11-08-2022 Nursing evaluation of patient and report Latia Sparks DRESSMAKER HELPER Work Phone: [facility] Work Phone: Start: 09-26-2022 End: 09-26-[address] DOCTOR WILSON Facility:[facility] Start: 09-25-2022 End: 09-25-2022 ambulatory NARENDRANATH LAKSHMIPATHY . Facility:[facility] Start: 08-28-2022 End: 08-29-2022 ambulatory NARENDRANATH LAKSHMIPATHY . Facility:[facility] Start: 08-14-2022 End: 08-14-2022 ambulatory NARENDRANATH LAKSHMIPATHY . Facility:[facility] Start: 08-02-2022 End: 08-02-2022 FQHC visit, estab pt Latia Sparks DRESSMAKER HELPER Work Phone: [facility] Work Phone: Start: 07-27-2022 End: 07-28-2022 ambulatory GERALDO PRADO Facility:[facility] Start: 07-23-2022 End: 07-23-2022 FQHC visit, estab pt Cinthia Adolph BICYCLE COURIER Work Phone: [facility] Work Phone: Start: 07-23-2022 End: 07-23-2022 Adult health examination Latia Sparks DRESSMAKER HELPER Work Phone: [facility] Work Phone: Start: 07-23-2022 End: 07-23-2022 Encounter for preprocedural laboratory examination Latia Sparks DRESSMAKER HELPER Work Phone: [facility] Work Phone: Start: 07-23-2022 End: 07-23-2022 FQHC visit new patient Latia Sparks DRESSMAKER HELPER Work Phone: [facility] Work Phone: Start: 07-23-2022 End: 07-24-2022 ambulatory LATIA [facility] Start: 07-23-2022 End: 07-24-2022 Encounter for general adult medical examination without abnormal findings LATIA [facility] Start: 07-23-2022 End: 07-23-2022 Subsequent hospital visit by physician JANINE HUMPHRIES [facility] Start: 07-19-2022 End: 07-20-[address] DOCTOR WILSON Facility:[facility] Start: 07-18-2022 End: 07-18-[address] DOCTOR WILSON Facility:[facility] Start: 07-17-2022 End: 07-18-2022 ambulatory GERALDO PRADO Facility:[facility] Start: 07-12-2022 ambulatory Latia Sparks DRESSMAKER HELPER [facility] Start: 09-21-2021 End: 09-21-2021 ambulatory Isidra Hernandez Other [facility] Other Start: 09-21-2021 Office outpatient ne w 20 minutes Isidra Hernandez [facility] Start: 09-21-2021 End: 09-21-2021 Patient encounter procedure MD Constantine Hernandez Work Phone: [facility] Start: 05-21-2018 End: 05-26-2018 Patient encounter procedure STIVEN ANDINO Facility:[facility] Obstetrics Start: 01-08-2018 Patient encounter Morgan Barcenas [facility] Start: 04-21-2014 Documentation procedure Aram Esquivel MD Work Phone: [facility] Start: 04-21-2014 Historic EMR Aram soto MD Work Phone: [facility] Procedures Date Procedure Procedure Detail Performing Clinician Start: 06-04-2023 Current tobacco smoker Latia Sparks FN P Work Phone: Start: 06-04-2023 FQHC visit, estab pt Latia Sparks DRESSMAKER HELPER Work Phone: Start: 06-04-2023 Most recent diastolic blood pressure < 80 mm hg Latia Sparks DRESSMAKER HELPER Work Phone: Start: 06-04-2023 Most recent systolic blood press 130-139mm hg Latia Sparks DRESSMAKER HELPER Work Phone: Start: 06-04-2023 Orthopedic Surgery Back Latia Sparks F SAND CONDITIONER Work Phone: Start: 06-04-2023 Pt scrnd tobacco use rcvd tobacco cessation talk Latia Sparks DRESSMAKER HELPER Work Phone: Start: 05-10-2023 Current tobacco smoker Latia Sparks FN P Work Phone: Start: 05-10-2023 [facility] visit, estab pt Latia Sparks DRESSMAKER HELPER Work Phone: Start: 05-10-2023 Most recent diastolic blood pressure < 80 mm hg Latia Sparks DRESSMAKER HELPER Work Phone: Start: 05-10-2023 Most recent systolic blood press 130-139mm hg Latia Sparks DRESSMAKER HELPER Work Phone: Start: 05-10-2023 Pt scrnd tobacco use rcvd tobacco cessation talk Latia Sparks DRESSMAKER HELPER Work Phone: Start: 04-18-2023 Current tobacco smoker Latia Sparks FN P Work Phone: Start: 04-18-2023 [facility] visit, MH estab pt Janina Christianson LI SW-S Work Phone: Start: 04-18-2023 Gluc bld gluc mntr dev cleared fda spec home use Latia Sparks DRESSMAKER HELPER Work Phone: Start: 04-18-2023 Most recent diastolic blood pressure 80-89 mm hg Latia Sparks DRESSMAKER HELPER Work Phone: Start: 04-18-2023 Most recent hg a1c>equal to 7.0%&<8.0% Latia Sparks DRESSMAKER HELPER Work Phone: Start: 04-18-2023 Most recent systolic blood press 130-139mm hg Latia Sparks DRESSMAKER HELPER Work Phone: Start: 04-18-2023 Psychotherapy w/patient 30 minutes Janina Meghan BICYCLE COURIER-S Work Phone: Start: 04-18-2023 Pt scrnd tobacco use rcvd tobacco cessation talk Latia Sparks DRESSMAKER HELPER Work Phone: Start: 11-15-2022 FQHC visit, estab pt Latia Sparks DRESSMAKER HELPER Work Phone: Start: 11-15-2022 Most recent diastolic blood pressure 80-89 mm hg Latia Sparks DRESSMAKER HELPER Work Phone: Start: 11-15-2022 Most recent systolic blood pres>/equal 140 mm hg Latia Sparks DRESSMAKER HELPER Work Phone: Start: 11-08-2022 Collection venous blood venipuncture Latia Sparks DRESSMAKER HELPER Work Phone: Start: 11-08-2022 FQ visit, MH estab pt Janina Christianson LI SW-S Work Phone: Start: 11-08-2022 Psychotherapy w/patient 30 minutes Janina Christianson BICYCLE COURIER-S Work Phone: Start: 08-02-2022 Counseling Visit For: Consulting For Explanation of Examination Or Test Findings Latia Sparks DRESSMAKER HELPER Work Phone: Start: 08-02-2022 FQHC visit, estab pt Latia Sparks DRESSMAKER HELPER Work Phone: Start: 08-02-2022 Most recent diastolic blood pressure 80-89 mm hg Latia Sparks DRESSMAKER HELPER Work Phone: Start: 08-02-2022 Most recent systolic blood press 130-139mm hg Latia Sparks DRESSMAKER HELPER Work Phone: Start: 07-23-2022 Cholecystectomy Latia Sparks DRESSMAKER HELPER Work Phone: Start: 07-23-2022 Collection venous blood venipuncture Latia Sparks DRESSMAKER HELPER Work Phone: Start: 07-23-2022 FQ visit, MH estab pt Cinthia Farfan LIS W-S Work Phone: Start: 07-23-2022 Hysterectomy Latia Sparks DRESSMAKER HELPER Work Phone: Start: 07-23-2022 Ligation of fallopian tube Latia Yasmini m DRESSMAKER HELPER Work Phone: Start: 07-23-2022 Most recent diastol blood pres >/equal 90 mm hg Latia Sparks DRESSMAKER HELPER Work Phone: Start: 07-23-2022 Most recent hg a1c>equal to 8.0%& Latia Sparks DRESSMAKER HELPER Work Phone: Start: 07-23-2022 Most recent systolic blood pressure <130 mm hg Latia Sparks DRESSMAKER HELPER Work Phone: Start: 07-23-2022 Pt-focused hlth risk assmt score doc stnd instrm Latia Sparks DRESSMAKER HELPER Work Phone: Start: 07-23-2022 Urine albumin semiquantitative Latia Sparks DRESSMAKER HELPER Work Phone: Start: 07-23-2022 Hemoglobin glycosylated a1c Latia Ibrah im DRESSMAKER HELPER Work Phone: Start: 07-23-2022 Hepatitis c antibody Latia Sparks DRESSMAKER HELPER Work Phone: Start: 07-23-2022 IMMATURE PLATELET FRACTION Latia Andree m INFECTIOUS DISEASE PHYSICIAN - INDUSTRIAL WASTE INSPECTOR Work Phone: Start: 09-21-2021 X-ray of left [...] Adult BMI Screening Adult BMI Screen ing [facility] Start: 05-09-2024 Tobacco Screening Tobacco Screening [facility] Start: 09-04-2023 FQHC visit, estab pt Medical E stablished Patient [facility] Work Phone: Start: 07-18-2023 FQHC visit, estab pt Medical E stablished Patient [facility] Work Phone: Start: 06-21-2023 FQHC visit, estab pt Medical E stablished Patient [facility] Work Phone: Start: 06-05-2023 Dental Comp Exam [facility] Work Phone: Start: 06-04-2023 FQHC visit, estab pt Medical E stablished Patient [facility] Work Phone: Start: 06-04-2023 End: 06-04-2023 Patient education based on identified need [facility] Start: 05-16-2023 End: 05-16-2023 Admission to same day surgery center 05/16/2023 2:00 PM EST - 05/16/2023 3:15 PM EST Surgery [facility] - Surgery [address] [place] [place] [id number] Hardy Jay, DO [address] [place] [address] BALLOON KYPHOPLASTY SPINE [20285 (CPT )] [facility] Comment on above: BALLOON KYPHOPLASTY SPINE [89297 (CPT )] Start: 05-16-2023 End: 05-16-2023 Perq vert agmntj cavity crtj uni/bi cannulation BALLOON KYPHOPLASTY SPINE copression fracture L2 05/16/2023 2:00 PM EST [facility] Start: 05-16-2023 Subsequent hospital visit by physician 05/16/2023 2:00 PM EST Hospital Encounter [facility] - Surgery [address] [place] [place] [id number] Hardy Jay, [address] [place] [address] [facility] Start: 05-10-2023 End: 05-10-2023 Patient education based on identified need [facility] Start: 04-18-2023 End: 04-18-2023 Patient education based on identified need BHP offered active and supportive listening, validated emotions and feelings, and processed current stressors with being in the hospital. ~BHP encouraged patient to utilize positive supports and coping skills. ~ [facility] Start: 04-18-2023 End: 04-18-2023 Patient education based on identified need [facility] Start: 01-18-2023 Influenza vaccination Influenza Vacc ine [facility] Start: 11-15-2022 End: 11-15-2022 Patient education based on identified need [facility] Start: 11-15-2022 Lipid 1996 panel - Serum or Plasma [facility] Start: 11-08-2022 End: 11-08-2022 Patient education based on identified need BHP encouraged patient to utilize positive supports and coping skills. ~BHP encouraged patient to contact [facility] if they need any additional support or resources. ~ [facility] Start: 11-01-2022 FQHC visit, estab pt Medical E stablished Patient [facility] Work Phone: Start: 10-18-2022 ambulatory Ambulatory Facility:[facility] Start: 08-02-2022 FQHC visit, estab pt Medical E stablished Patient [facility] Work Phone: Start: 08-02-2022 End: 08-02-2022 Patient education based on identified need [facility] Start: 08-02-2022 End: 08-02-2022 Provider instructions for treatment Intervention and counseling on cessation of tobacco use, 3-10 minutes Discussed medication and nicotine replacement for tobacco cessation [facility] Start: 07-30-2022 CBC panel - Blood by Automated count [facility] Start: 07-30-2022 Lipid 1996 panel - Serum or Plasma LIPID PROFILE [facility] Start: 07-23-2022 End: 07-23-2022 Patient education based on identified need [facility] Start: 07-23-2022 End: 07-23-2022 Provider instructions for treatment Intervention and counseling on cessation of tobacco use, 3-10 minutes Discussed medication and nicotine replacement for tobacco cessation [facility] Start: 12-18-2021 Influenza vaccination Flu vaccine (# 1) [employer] Start: 2017 Fall [facility] Scre[facility] Start: 1971 DTaP,Tdap and Td Vaccines (1 - Tdap) DTaP,Tdap and Td Vaccines (1 - Tdap) [facility] Start: 1971 DTaP/Tdap/Td vaccine (1 - Tdap) DTaP/Tdap/Td vaccine (1 - Tdap) [facility] [employer] Start: 1970 Adult BMI Follow Up Plan Adult [facility] Start[facility] 1970 Diabetic foot examination [facility]abetic Foot Exam [facility] Start: 1964 Depression Screening [facility] Scre ening [facility] Start: 1952 COVID-19 Vaccine (#1) COVID-19 Vacci ne (#1) [facility] [employer] Start: 1952 Glaucoma screening Diabetic [facility] Start: 1952 Medicare Annual Wellness Visit Medicare Annual Wellness Visit [facility] Start: 1952 Tobacco Counseling Tobacco Counselin g [facility] [employer] [facility] Immunizations Immunization Date Immunization Notes Care Provider Asiya tolbert 02-14-2017 influenza virus vacc ine, unspecified formulation Pmh 2 [facility] [employer] [facility] Payers Date Payer Category Payer Medicare 2019 Medicaid MEDICAID [facility] M EDICAID [id number] 2019-Present [phone] [address] [place] [address] [id number] 2018 Medicare [id number] 2014 Private Health Insurance [id number] 2014 Unknown [id number] [id number] 1959 Medicaid [id number] 1952 Unknown [id number] 2.16.840.1.063902.3.579.2. 627 1952 Unknown [id number] 2.16.840.1.574134.3.579.2. 593 1952 Unknown [id number] 2.16.840.1.163242.3.579.2. 593 1952 Unknown [id number] 2.16.840.1.504411.3.579.2. 593 1952 Unknown [id number] 2.16.840.1.546904.3.579.2. 593 1952 Unknown [id number] 2.16.840.1.021794.3.579.2. 593 1952 Unknown [id number] 2.16.840.1.336683.3.579.2. 593 1952 Unknown [id number] 2.16.840.1.789492.3.579.2. 593 1952 Unknown [id number] 2.16.840.1.691849.3.579.2. 593 1952 Unknown [id number] 2.16.840.1.672685.3.579.2. 593 1952 Unknown [id number] 2.16.840.1.252861.3.579.2. 175 1952 Unknown [id number] 2.16.840.1.455463.3.579.2. 175 1952 Unknown [id number] 2.16.840.1.396706.3.579.2. 1286 1952 Unknown [id number] 2.16.840.1.759626.3.579.2. 1286 1952 Unknown [id number] 2.16.840.1.984976.3.579.2. 1286 1952 Unknown [id number] 2.16.840.1.874840.3.579.2. 1286 1952 Unknown [id number] 2.16.840.1.392665.3.579.2. 1286 1952 Unknown [id number] 2.16.840.1.762804.3.579.2. 1286 1952 Unknown [id number] 2.16.840.1.101161.3.579.2. 1286 1952 Unknown [id number] 2.16.840.1.586000.3.579.2. 1286 1952 Unknown [id number] 2.16.840.1.961462.3.579.2. 1286 1952 Unknown [id number] 2.16.840.1.440445.3.579.2. 1259 1952 Unknown [id number] 2.16.840.1.057010.3.579.2. 1259 1952 Unknown [id number] 2.16.840.1.029787.3.579.2. 1259 1952 Unknown [id number] 2.16.840.1.841742.3.579.2. 1259 1952 Unknown [id number] 2.16.840.1.513291.3.579.2. 1259 1952 Unknown [id number] 2.16.840.1.654529.3.579.2. 1259 Self-pay Unknown 1 - [facility] hcare Dual [employer]plet [id number] 2.16.840.1.228600.3.140.1. 88355.5.10.6.3 Social History Date Type Detail Facility Start: 1950 Sex Assigned At Female [facility] Start: 10-29-2019 End: 06-30-2020 Sex Assigned At [facility] Other Assertion Currently not se xually active (finding) [facility] Assertion Cigarette smoker (finding) [facility] Assertion Smoker (finding) [facility] Assertion Moderate cigaret te smoker (10-19 cigs/day) (finding) [facility] Assertion Exposure to poll ution (event) [facility] Assertion Gender identity finding (finding) [facility] Assertion Finding of sexua l orientation (finding) [facility] Tobacco smoking status Unknown if ever smoked [facility] Assertion History of disor vivian (situation) [facility] Assertion Emotional stress (finding) [facility] Assertion Finding of resid ence and accommodation circumstances (finding) [facility] Assertion Light cigarette smoker (1-9 cigs/day) (finding) [facility] Start: 1950 Sex Assigned At Not on file [employer] Work Phone: Start: 05-09-2023 Tobacco smoking status NHIS Smokes tobacco daily [facility] Start: 06-30-2020 End: 05-09-2023 Cigarettes smoked current (pack per day) - Reported 0.3 [facility] Start: 05-09-2023 Tobacco use and exposure Smokeless tobacco non-user [facility] Start: 05-09-2023 Alcohol intake Lifetime non-d aurora (finding) [facility] How often to you have a drink containing alcohol? Never [facility] Average Number of Drinks Not on file [facility] System Start: 05-09-2023 Tobacco Comment 4 cigarettes per day [facility] NEGATED: Highlighted row - - [facility] DO Work Phone: NEGATED: Highlighted row Assertion Current drinker of alcohol (finding) [facility] NEGATED: Highlighted row Assertion Finding relating to drug misuse behavior (finding) [facility] NEGATED: Highlighted row Assertion [facility] NEGATED: Highlighted row Assertion Sexually active (finding) [facility] NEGATED: Highlighted row Assertion Exposure to pollution (event) [facility] Medical Equipment Procedure Code Equipment Code Equipment Origin al Text Equipment Identifier Dates BD Pen Needle Na no 2nd Gen 32G X 4 MM Miscellaneous [id number] Start: 07-23-2022 End: 08-02-2022 BD Pen Needle Na no 2nd Gen 32G X 4 MM Miscellaneous [id number] Start: 08-28-2022 BD Pen Needle Na no 2nd Gen 32G X 4 MM Miscellaneous [id number] Start: 08-22-2022 End: 08-02-2022 Functional Status Date Assessment Result Facility NEGATED: Highlighted row Functional performance Functional status health issues are not documented Disease [facility] Work Phone: Mental Status Date Assessment Result Facility Cognitive function Moderate recu rrent major depression Moderate recurrent major depression (disorder) [facility] Work Phone: NEGATED: Highlighted row Cognitive function [Interpretation] Cognitive status health issues are not documented Disease [facility] Work Phone: Clinical Notes 09-21-2021 to 06-18-2023 Note Date & Type Note Facility 06-18-2023 Instructions Includes: Instructions for all patient encounters Intervention and counseling on cessation of tobacco use, 3-10 minutes Discussed medication and nicotine replacement for tobacco cessation Last Documented On 3 1:05PM ; [facility] Intervention and counseling on cessation of tobacco use, 3-10 minutes Discussed medication and nicotine replacement for tobacco cessation Last Documented On 3 1:02PM ; [facility] Intervention and counseling on cessation of tobacco use, 3-10 minutes Discussed medication and nicotine replacement for tobacco cessation Last Documented On 3 1:13PM ; [facility] Education and Decision Aids were provided during visit for: Discussed nutritional needs 35.4 teach healthy choices including fruits and vegetables Last Documented On 4 10:44AM ; [facility] Patient education about a pr oper diet Last Documented On 4 10:44AM ; [facility] Patient education about phys ical activity benefits Last Documented On 4 11:51AM ; [facility] Patient education about ment al health Last Documented On 4 11:51AM ; [facility] Patient education about diab etes Take your medications every day, even if you feel good. ~Check your blood sugar ____ times per day and write it on your log. ~Limit the amount of pastas, breads, cookies, candies, cakes and soda so your sugar is better controlled Last Documented On 4 11:51AM ; [facility] Patient education about nasa l irrigation Last Documented On 4 11:51AM ; [facility] Discussed concerns about exe rcise : promote physical activity Last Documented On 4 10:44AM ; [facility] Discussed nutritional needs teach healthy choices including fruits and vegetables Last Documented On 3 10:09AM ; [facility] Patient education about a pr oper diet 35.7 Last Documented On 3 10:09AM ; [facility] Discussed concerns about exe rcise : promote physical activity Last Documented On 3 10:09AM ; [facility] and suppo rtive listening, validated emotions and feelings, and processed current stressors with being in the hospital. ~P encouraged patient to utilize positive supports and coping skills. ~ Last Documented On 3 1:42PM ; [facility] Discussed nutritional needs teach healthy choices including fruits and vegetables Last Documented On 3 2:16PM ; [facility] Patient education about a pr oper diet 35.7 Last Documented On 3 2:16PM ; [facility] Patient education about phys ical activity benefits Last Documented On 3 10:09PM ; [facility] Patient education about medi cation Last Documented On 3 10:09PM ; [facility] Patient education about ment al health Last Documented On 3 10:09PM ; [facility] Discussed concerns about exe rcise : promote physical activity Last Documented On 3 2:16PM ; [facility] Not requesting contraception Last Documented On 3 2:16PM ; [facility] Discussed nutritional needs teach healthy choices including fruits and vegetables Last Documented On 3 2:25PM ; [facility] Patient education about a pr oper diet 37.4 Last Documented On 3 2:25PM ; [facility] Patient education about phys ical activity benefits Last Documented On 3 2:50PM ; [facility] Patient education about medi cation Last Documented On 3 2:50PM ; [facility] Patient education about ment al health Last Documented On 3 2:50PM ; [facility] Discussed concerns about exe rcise : promote physical activity Last Documented On 3 2:25PM ; [facility] encouraged patient to ut ilize positive supports and coping skills. ~[facility] encouraged patient to contact [facility] if they need any additional support or resources. ~ Last Documented On 3 10:03PM ; [facility] Discussed nutritional needs teach healthy choices including fruits and vegetables Last Documented On 3 10:23AM ; [facility] Patient education about a pr oper diet 36.7 Last Documented On 3 10:23AM ; [facility] Patient education about phys ical activity benefits Last Documented On 3 1:07PM ; [facility] Patient education about medi cation Last Documented On 3 1:07PM ; [facility] Patient education about ment al health Last Documented On 3 1:07PM ; [facility] Discussed concerns about exe rcise : promote physical activity Last Documented On 3 10:23AM ; [facility] introduced patient to [facility] integrated model of care. ~[facility] offered active and supportive listening, normalized emotions and feelings, and processed current stressors. ~Discussed healthy coping skills and positive supports in patient's life. ~Discussed healthy lifestyle behaviors. ~ Last Documented On 3 12:10AM ; [facility] Discussed nutritional needs 36 teach healthy choices including fruits and vegetables Last Documented On 3 12:20PM ; [facility] Patient education about a pr oper diet 36 Last Documented On 3 12:20PM ; [facility] Discussed concerns about exe rcise : promote physical activity Last Documented On 3 12:20PM ; [facility] Referred Patient to a Diabet es Self-Management Program Last Documented On 3 1:46PM ; [facility] Work Phone: [phone] 367-408501-16-2024 Evaluation note Includes: Assessments for all patient encounters Findings Encounter Date [Z68.35 - Body mass index [B WY] 35.0-35.9, adult] assessment of body mass index Medical Established Patient with Latia Sparks [employer]ESSMAKER HELPER 06/04/2023 Last Documented On 4 11:53AM ; [facility] Nicotine dependence Medical Established Patient with Latia Sparks [employer]ESSMAKER HELPER 06/04/2023 Last Documented On 4 11:53AM ; [facility] [Z68.35 - Body mass index [B WY] 35.0-35.9, adult] assessment of body mass index Medical Established Patient with Latia Sparks DRESSMAKER HELPER 05/10/2023 Last Documented On 3 10:52AM ; [facility] Nicotine dependence Medical Established Patient with Latia Sparks DRESSMAKER HELPER 05/10/2023 Last Documented On 3 10:52AM ; [facility] Visit for: preoperative exam Medical Est ablished Patient with Latia Sparks [employer]ESSMAKER HELPER 05/10/2023 Last Documented On 3 10:52AM ; [facility] Moderate recurrent major depression BH E stablished Patient with Janina Meghan BICYCLE COURIER-S 04/18/2023 Last Documented On 3 1:42PM ; [facility] [Z68.35 - Body mass index [B WY] 35.0-35.9, adult] assessment of body mass index Medical Established Patient with Latia Sparks DRESSMAKER HELPER 04/18/2023 Last Documented On 3 10:11PM ; [facility] Nicotine dependence Medical Established Patient with Latia Sparks DRESSMAKER HELPER 04/18/2023 Last Documented On 3 10:11PM ; [facility] 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 Medical Established Patient with Latia Sparks [employer]ESSMAKER HELPER 04/18/2023 Last Documented On 3 10:11PM ; [facility] Assessment of body mass index Medical Es tablished Patient with Latia Sparks [employer]ESSMAKER HELPER 11/15/2022 Last Documented On 3 2:53PM ; [facility] Generalized anxiety disorder Establis hed Patient with Janina Meghan [employer] COURIER-S 11/08/2022 Last Documented On 3 10:03PM ; [facility] Hyperlipidemia Nurse Visit with Latia Sparks [facility] 11/08/2022 Last Documented On 3 2:16PM ; [facility] Venipuncture was performed Nurse Visit with Kathia Sparks [facility] 11/08/2022 Last Documented On 3 2:16PM ; [facility] [Z68.36 - Body mass index [B WY] 36.0-36.9, adult] assessment of body mass index Medical Established Patient with Latia Sparks DRESSMAKER HELPER 08/02/2022 Last Documented On 3 1:36PM ; [facility] Intervention and counseling on cessation of tobacco use, 3-10 minutes Discussed medication and nicotine replacement for tobacco cessation Medical Established Patient with Latia Sparks [facility] 08/02/2022 Last Documented On 3 1:36PM ; [facility] Visit for: person consulting for explanation of examination or test findings Medical Established Patient with Latia Sparks [facility] 08/02/2022 Last Documented On 3 1:36PM ; [facility] Generalized anxiety disorder Establis hed Patient with Cinthia Stone BICYCLE COURIER-S 07/23/2022 Last Documented On 3 12:17AM ; [facility] Intervention and counseling on cessation of tobacco use, 3-10 minutes Discussed medication and nicotine replacement for tobacco cessation Established Patient with Cinthia Stone BICYCLE COURIER-S 07/23/2022 Last Documented On 3 12:17AM ; [facility] Moderate recurrent major depression E stablished Patient with Cinthia Stone BICYCLE COURIER-S 07/23/2022 Last Documented On 3 12:17AM ; [facility] Nicotine dependence Established Patient with Cinthia Stone BICYCLE COURIER-S 07/23/2022 Last Documented On 3 12:17AM ; [facility] Primary insomnia Established Patient with Deysi pugh Stone BICYCLE COURIER-S 07/23/2022 Last Documented On 3 12:17AM ; [facility] [Z68.36 - Body mass index [B WY] 36.0-36.9, adult] assessment of body mass index Medical New Patient with Latia GREENP 07/23/2022 Last Documented On 3 2:32PM ; [facility] Diabetes Risk Test Score was nine score 07/23/2022 Medical New Patient with Latia Sparks DRESSMAKER HELPER 07/23/2022 Last Documented On 3 2:32PM ; [facility] Intervention and counseling on cessation of tobacco use, 3-10 minutes Discussed medication and nicotine replacement for tobacco cessation Medical New Patient with Latia Sparks DRESSMAKER HELPER 07/23/2022 Last Documented On 3 2:32PM ; [facility] Screening for Hep C Medical New Patient with Nad yelitza Sparks DRESSMAKER HELPER 07/23/2022 Last Documented On 3 2:32PM ; [facility] Screening for HIV Medical New Patient with Hiren Sparks DRESSMAKER HELPER 07/23/2022 Last Documented On 3 2:32PM ; [facility] Venipuncture was performed Medical New Patient w dmitry Sparks [facility] 07/23/2022 Last Documented On 3 2:32PM ; [facility] Visit for routine adult H&P without abnormal findings Medical New Patient with Latia Sparks DRESSMAKER HELPER 07/23/2022 Last Documented On 3 2:32PM ; [facility] Work Phone: 1(140) 393-985501-16-2024 Progress note* Progress note Date Encounter Last Documented by 06/04/2023 Medical Established Patient Last documented on 06/04/2023; 11:53 AM, Latia Sparks [facility]; [facility] Active Problems & Conditions - 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 Referred Here Referred by emergency room back surgery the [facility] follow up. Prior encounters. - Data to [...] to physical therapy. The patient lives at [facility], reporting the nurses at the facility have been giving her daily [place] instead of twice a day. The patient has been encouraged to speak with DON at the [facility]. Follow up in 3 months Current [...] previous hospitalizations. A recent examination by an well head pumper 07/21/2022 results in eye. Recent eye exam [...] dhaliwal) and gender identity Female. Allergies - [place]unn Reaction: Hives / Urticaria, Shock - Mellaril [...] BP-Sitting R138/80 mmHg BP Cuff SizeRegular Pulse Rate-Aaotxmk45 bpm Pwaosg86 in Pguksd889 lbs Body Mass Index35.4 kg/m2 Body Surface Area2 m2 Oxygen Vdgdrzxjjp00 % O2 DeviceNone (Room Air) XpX370 % Vital Signs: - Systolic blood pressure [...] in the COVID-19 vaccination at this time. [facility]01-16-2024 Instructions Includes: Instructions for all patient encounters Instructions to patient Intervention and counseling on cessation of tobacco use, 3-10 minutes Discussed medication and nicotine replacement for tobacco cessation Last Documented On 3 1:05PM ; [facility] Intervention and counseling on cessation of tobacco use, 3-10 minutes Discussed medication and nicotine replacement for tobacco cessation Last Documented On 3 1:02PM ; [facility] Intervention and counseling on cessation of tobacco use, 3-10 minutes Discussed medication and nicotine replacement for tobacco cessation Last Documented On 3 1:13PM ; [facility] Education and Decision Aids were provided during visit for: Discussed nutritional needs 35.4 teach healthy choices including fruits and vegetables Last Documented On 4 10:44AM ; [facility] Patient education about a pr oper diet Last Documented On 4 10:44AM ; [facility] Patient education about phys ical activity benefits Last Documented On 4 11:51AM ; [facility] Patient education about ment al health Last Documented On 4 11:51AM ; [facility] Patient education about diab etes Take your medications every day, even if you feel good. ~Check your blood sugar ____ times per day and write it on your log. ~Limit the amount of pastas, breads, cookies, candies, cakes and soda so your sugar is better controlled Last Documented On 4 11:51AM ; [facility] Patient education about nasa l irrigation Last Documented On 4 11:51AM ; [facility] Discussed concerns about exe rcise : promote physical activity Last Documented On 4 10:44AM ; [facility] Discussed nutritional needs teach healthy choices including fruits and vegetables Last Documented On 3 10:09AM ; [facility] Patient education about a pr oper diet 35.7 Last Documented On 3 10:09AM ; [facility] Discussed concerns about exe rcise : promote physical activity Last Documented On 3 10:09AM ; [facility] offered active and suppo rtive listening, validated emotions and feelings, and processed current stressors with being in the hospital. ~P encouraged patient to utilize positive supports and coping skills. ~ Last Documented On 3 1:42PM ; [facility] Discussed nutritional needs teach healthy choices including fruits and vegetables Last Documented On 3 2:16PM ; [facility] Patient education about a pr oper diet 35.7 Last Documented On 3 2:16PM ; [facility] Patient education about phys ical activity benefits Last Documented On 3 10:09PM ; [facility] Patient education about medi cation Last Documented On 3 10:09PM ; [facility] Patient education about ment al health Last Documented On 3 10:09PM ; [facility] Discussed concerns about exe rcise : promote physical activity Last Documented On 3 2:16PM ; [facility] Not requesting contraception Last Documented On 3 2:16PM ; [facility] Discussed nutritional needs teach healthy choices including fruits and vegetables Last Documented On 3 2:25PM ; [facility] Patient education about a pr oper diet 37.4 Last Documented On 3 2:25PM ; [facility] Patient education about phys ical activity benefits Last Documented On 3 2:50PM ; [facility] Patient education about medi cation Last Documented On 3 2:50PM ; [facility] Patient education about ment al health Last Documented On 3 2:50PM ; [facility] Discussed concerns about exe rcise : promote physical activity Last Documented On 3 2:25PM ; [facility] encouraged patient to ut ilize positive supports and coping skills. ~[facility] encouraged patient to contact [facility] if they need any additional support or resources. ~ Last Documented On 3 10:03PM ; [facility] Discussed nutritional needs teach healthy choices including fruits and vegetables Last Documented On 3 10:23AM ; [facility] Patient education about a pr oper diet 36.7 Last Documented On 3 10:23AM ; [facility] Patient education about phys ical activity benefits Last Documented On 3 1:07PM ; [facility] Patient education about medi cation Last Documented On 3 1:07PM ; [facility] Patient education about ment al health Last Documented On 3 1:07PM ; [facility] Discussed concerns about exe rcise : promote physical activity Last Documented On 3 10:23AM ; [facility] introduced patient to [facility] integrated model of care. ~[facility] offered active and supportive listening, normalized emotions and feelings, and processed current stressors. ~Discussed healthy coping skills and positive supports in patient's life. ~Discussed healthy lifestyle behaviors. ~ Last Documented On 3 12:10AM ; [facility] Discussed nutritional needs 36 teach healthy choices including fruits and vegetables Last Documented On 3 12:20PM ; [facility] Patient education about a pr oper diet 36 Last Documented On 3 12:20PM ; [facility] Discussed concerns about exe rcise : promote physical activity Last Documented On 3 12:20PM ; [facility] Referred Patient to a Diabet es Self-Management Program Last Documented On 3 1:46PM ; [facility] Work Phone: 1(639) 549-543512-22-2023 Progress note* Progress note Date Encounter Last Documented by 05/10/2023 Medical Established Patient Last documented on 05/10/2023; 10:52 AM, Latia GREENP; [facility] Active Problems & Conditions - E11.610 - [...] needs refill on Fenofibrate. Pt went to [facility] on 05/02 and they found compression fractures on back. Referred Here Not referred by urgent care clinic and not the emergency room. Prior encounters. - Data to be reviewed: clinical lab tests Catscan on 05/02 on back [facility] History of Present Illness Tunde Jack [...] previous hospitalizations. A recent examination by an well head pumper 07/21/2022. Recent eye exam showed no apparent [...] BP-Sitting R133/76 mmHg BP Cuff SizeLarge Pulse Rate-Hxrnotr580 bpm Temp-Oral97.8 F Cbcxnx55 in Mwqsam480 lbs 12.8 oz Body Mass Index35.7 kg/m2 Body Surface Area2 m2 Oxygen Ieikyatfmn09 % O2 DeviceNone (Room Air) DfL638 % Vital Signs: - Systolic blood pressure [...] in the COVID-19 vaccination at this time. [facility]12-22-2023 Instructions Includes: Instructions for all patient encounters Instructions to patient Intervention and counseling on cessation of tobacco use, 3-10 minutes Discussed medication and nicotine replacement for tobacco cessation Last Documented On 3 1:05PM ; [facility] Intervention and counseling on cessation of tobacco use, 3-10 minutes Discussed medication and nicotine replacement for tobacco cessation Last Documented On 3 1:02PM ; [facility] Intervention and counseling on cessation of tobacco use, 3-10 minutes Discussed medication and nicotine replacement for tobacco cessation Last Documented On 3 1:13PM ; [facility] Education and Decision Aids were provided during visit for: Discussed nutritional needs teach healthy choices including fruits and vegetables Last Documented On 3 10:09AM ; [facility] Patient education about a pr oper diet 35.7 Last Documented On 3 10:09AM ; [facility] Discussed concerns about exe rcise : promote physical activity Last Documented On 3 10:09AM ; [facility] offered active and suppo rtive listening, validated emotions and feelings, and processed current stressors with being in the hospital. ~P encouraged patient to utilize positive supports and coping skills. ~ Last Documented On 3 1:42PM ; [facility] Discussed nutritional needs teach healthy choices including fruits and vegetables Last Documented On 3 2:16PM ; [facility] Patient education about a pr oper diet 35.7 Last Documented On 3 2:16PM ; [facility] Patient education about phys ical activity benefits Last Documented On 3 10:09PM ; [facility] Patient education about medi cation Last Documented On 3 10:09PM ; [facility] Patient education about ment al health Last Documented On 3 10:09PM ; [facility] Discussed concerns about exe rcise : promote physical activity Last Documented On 3 2:16PM ; [facility] Not requesting contraception Last Documented On 3 2:16PM ; [facility] Discussed nutritional needs teach healthy choices including fruits and vegetables Last Documented On 3 2:25PM ; [facility] Patient education about a pr oper diet 37.4 Last Documented On 3 2:25PM ; [facility] Patient education about phys ical activity benefits Last Documented On 3 2:50PM ; [facility] Patient education about medi cation Last Documented On 3 2:50PM ; [facility] Patient education about ment al health Last Documented On 3 2:50PM ; [facility] Discussed concerns about exe rcise : promote physical activity Last Documented On 3 2:25PM ; [facility] encouraged patient to ut ilize positive supports and coping skills. ~[facility] encouraged patient to contact [facility] if they need any additional support or resources. ~ Last Documented On 3 10:03PM ; [facility] Discussed nutritional needs teach healthy choices including fruits and vegetables Last Documented On 3 10:23AM ; [facility] Patient education about a pr oper diet 36.7 Last Documented On 3 10:23AM ; [facility] Patient education about phys ical activity benefits Last Documented On 3 1:07PM ; [facility] Patient education about medi cation Last Documented On 3 1:07PM ; [facility] Patient education about ment al health Last Documented On 3 1:07PM ; [facility] Discussed concerns about exe rcise : promote physical activity Last Documented On 3 10:23AM ; [facility] introduced patient to [facility] integrated model of care. ~[facility] offered active and supportive listening, normalized emotions and feelings, and processed current stressors. ~Discussed healthy coping skills and positive supports in patient's life. ~Discussed healthy lifestyle behaviors. ~ Last Documented On 3 12:10AM ; [facility] Discussed nutritional needs 36 teach healthy choices including fruits and vegetables Last Documented On 3 12:20PM ; [facility] Patient education about a pr oper diet 36 Last Documented On 3 12:20PM ; [facility] Discussed concerns about exe rcise : promote physical activity Last Documented On 3 12:20PM ; [facility] Referred Patient to a Diabet es Self-Management Program Last Documented On 3 1:46PM ; [facility] Work Phone: 1(377) 425-621512-21-2023 Instructions* Patient Instructions* Jennifer Edmond RN - 05/09/2023 2:15 PM EST Preoperative Education Checklist- General Surgery date: 05/16/23 Surgery time: 2:00 p.m. Arrival time: 12:00 p.m. 1. Bring a photo ID and your insurance card with you the day of surgery. You will check in at the main lobby of the [facility]- registration desk is straight ahead as soon as you walk in. Tell them you are here for surgery. 2. If you have a Living Will/Durable Power of Cigarette Making Machine Catcher for Health Care that is not on [...] after you have bathed. 5. NO nail lebanese/acrylic on at least one finger. If you are having a hand, wrist or foot surgery then all nail lebanese and artificial/acrylic nails must be removed from [...] please call the Preadmission Testing office at [phone], Mon.-Fri. 7 a.m.-3 p.m. Leave a voicemail [...] appointment with your doctor. documented in this encounterMercy Health St. Charles HospitalACHICA [facility] [id number] Miscellaneous Notes* Perioperative Nursing Note - Jennifer Edmond RN - 05/09/2023 2:15 PM EST Preoperative Education Checklist- General Surgery date: 05/16/23 Surgery time: 2:00 p.m. Arrival time: 12:00 p.m. 1. Bring a photo ID and your insurance card with you the day of surgery. You will check in at the main lobby of the [facility]- registration desk is straight ahead as soon as you walk in. Tell them you are here for surgery. 2. If you have a Living Will/Durable Power of Cigarette Making Machine Catcher for Health Care that is not on [...] after you have bathed. 5. NO nail lebanese/acrylic on at least one finger. If you are having a hand, wrist or foot surgery then all nail lebanese and artificial/acrylic nails must be removed from [...] WITH YOU ANY DEVICES YOU MAY NEED: CEHO hose, ice machine, sling/swath, brace or special [...] please call the Preadmission Testing office at [phone], Mon.-Fri. 7 a.m.-3 p.m. Leave a voicemail [...] reviewed. Patient verbalized understanding. documented in this encounterUniversity [facility]12-[facility]23 Nurse Note* Perioperative Nursing Note - Jennifer Edmond RN - 05/09/2023 2:15 PM EST Preoperative Education Checklist- General Surgery date: 05/16/23 Surgery time: 2:00 p.m. Arrival time: 12:00 p.m. 1. Bring a photo ID and your insurance card with you the day of surgery. You will check in at the main lobby of the [facility]- registration desk is straight ahead as soon as you walk in. Tell them you are here for surgery. 2. If you have a Living Will/Durable Power of Cigarette Making Machine Catcher for Health Care that is not on [...] after you have bathed. 5. NO nail lebanese/acrylic on at least one finger. If you are having a hand, wrist or foot surgery then all nail lebanese and artificial/acrylic nails must be removed from [...] please call the Preadmission Testing office at [phone], Mon.-Fri. 7 a.m.-3 p.m. Leave a voicemail [...] to the follow-up appointment with your doctor. [facility]12-[facility] Nurse Note* Perioperative Nursing Note - Jennifer Edmond RN - 05/09/2023 2:15 PM EST Hibiclens and surgical instructions reviewed. Patient verbalized understanding. [facility]12-03-2023 Instructions Includes: Instructions for all patient encounters Instructions to patient Intervention and counseling on cessation of tobacco use, 3-10 minutes Discussed medication and nicotine replacement for tobacco cessation Last Documented On 3 1:05PM ; [facility] Intervention and counseling on cessation of tobacco use, 3-10 minutes Discussed medication and nicotine replacement for tobacco cessation Last Documented On 3 1:02PM ; [facility] Intervention and counseling on cessation of tobacco use, 3-10 minutes Discussed medication and nicotine replacement for tobacco cessation Last Documented On 3 1:13PM ; [facility] Education and Decision Aids were provided during visit for: [facility] offered active and suppo rtive listening, validated emotions and feelings, and processed current stressors with being in the hospital. ~[facility] encouraged patient to utilize positive supports and coping skills. ~ Last Documented On 3 1:42PM ; [facility] Discussed nutritional needs teach healthy choices including fruits and vegetables Last Documented On 3 2:16PM ; [facility] Patient education about a pr oper diet 35.7 Last Documented On 3 2:16PM ; [facility] Patient education about phys ical activity benefits Last Documented On 3 10:09PM ; [facility] Patient education about medi cation Last Documented On 3 10:09PM ; [facility] Patient education about ment al health Last Documented On 3 10:09PM ; [facility] Discussed concerns about exe rcise : promote physical activity Last Documented On 3 2:16PM ; [facility] Not requesting contraception Last Documented On 3 2:16PM ; [facility] Discussed nutritional needs teach healthy choices including fruits and vegetables Last Documented On 3 2:25PM ; [facility] Patient education about a pr oper diet 37.4 Last Documented On 3 2:25PM ; [facility] Patient education about phys ical activity benefits Last Documented On 3 2:50PM ; [facility] Patient education about medi cation Last Documented On 3 2:50PM ; [facility] Patient education about ment al health Last Documented On 3 2:50PM ; [facility] Discussed concerns about exe rcise : promote physical activity Last Documented On 3 2:25PM ; [facility] encouraged patient to ut ilize positive supports and coping skills. ~[facility] encouraged patient to contact [facility] if they need any additional support or resources. ~ Last Documented On 3 10:03PM ; [facility] Discussed nutritional needs teach healthy choices including fruits and vegetables Last Documented On 3 10:23AM ; [facility] Patient education about a pr oper diet 36.7 Last Documented On 3 10:23AM ; [facility] Patient education about phys ical activity benefits Last Documented On 3 1:07PM ; [facility] Patient education about medi cation Last Documented On 3 1:07PM ; [facility] Patient education about ment al health Last Documented On 3 1:07PM ; [facility] Discussed concerns about exe rcise : promote physical activity Last Documented On 3 10:23AM ; [facility] introduced patient to [facility] integrated model of care. ~P offered active and supportive listening, normalized emotions and feelings, and processed current stressors. ~Discussed healthy coping skills and positive supports in patient's life. ~Discussed healthy lifestyle behaviors. ~ Last Documented On 3 12:10AM ; [facility] Discussed nutritional needs 36 teach healthy choices including fruits and vegetables Last Documented On 3 12:20PM ; [facility] Patient education about a pr oper diet 36 Last Documented On 3 12:20PM ; [facility] Discussed concerns about exe rcise : promote physical activity Last Documented On 3 12:20PM ; [facility] Referred Patient to a Diabet es Self-Management Program Last Documented On 3 1:46PM ; [facility] Work Phone: 1(705) 924-731612-02-2023 Instructions Includes: Instructions for all patient encounters Instructions to patient Intervention and counseling on cessation of tobacco use, 3-10 minutes Discussed medication and nicotine replacement for tobacco cessation Last Documented On 3 1:05PM ; [facility] Intervention and counseling on cessation of tobacco use, 3-10 minutes Discussed medication and nicotine replacement for tobacco cessation Last Documented On 3 1:02PM ; [facility] Intervention and counseling on cessation of tobacco use, 3-10 minutes Discussed medication and nicotine replacement for tobacco cessation Last Documented On 3 1:13PM ; [facility] Education and Decision Aids were provided during visit for: [facility] offered active and suppo rtive listening, validated emotions and feelings, and processed current stressors with being in the hospital. ~[facility] encouraged patient to utilize positive supports and coping skills. ~ Last Documented On 3 1:42PM ; [facility] Discussed nutritional needs teach healthy choices including fruits and vegetables Last Documented On 3 2:16PM ; [facility] Patient education about a pr oper diet 35.7 Last Documented On 3 2:16PM ; [facility] Discussed concerns about exe rcise : promote physical activity Last Documented On 3 2:16PM ; [facility] Not requesting contraception Last Documented On 3 2:16PM ; [facility] Discussed nutritional needs teach healthy choices including fruits and vegetables Last Documented On 3 2:25PM ; [facility] Patient education about a pr oper diet 37.4 Last Documented On 3 2:25PM ; [facility] Patient education about phys ical activity benefits Last Documented On 3 2:50PM ; [facility] Patient education about medi cation Last Documented On 3 2:50PM ; [facility] Patient education about ment al health Last Documented On 3 2:50PM ; [facility] Discussed concerns about exe rcise : promote physical activity Last Documented On 3 2:25PM ; [facility] encouraged patient to ut ilize positive supports and coping skills. ~[facility] encouraged patient to contact [facility] if they need any additional support or resources. ~ Last Documented On 3 10:03PM ; [facility] Discussed nutritional needs teach healthy choices including fruits and vegetables Last Documented On 3 10:23AM ; [facility] Patient education about a pr oper diet 36.7 Last Documented On 3 10:23AM ; [facility] Patient education about phys ical activity benefits Last Documented On 3 1:07PM ; [facility] Patient education about medi cation Last Documented On 3 1:07PM ; [facility] Patient education about ment al health Last Documented On 3 1:07PM ; [facility] Discussed concerns about exe rcise : promote physical activity Last Documented On 3 10:23AM ; [facility] introduced patient to [facility] integrated model of care. ~[facility] offered active and supportive listening, normalized emotions and feelings, and processed current stressors. ~Discussed healthy coping skills and positive supports in patient's life. ~Discussed healthy lifestyle behaviors. ~ Last Documented On 3 12:10AM ; [facility] Discussed nutritional needs 36 teach healthy choices including fruits and vegetables Last Documented On 3 12:20PM ; [facility] Patient education about a pr oper diet 36 Last Documented On 3 12:20PM ; [facility] Discussed concerns about exe rcise : promote physical activity Last Documented On 3 12:20PM ; [facility] Referred Patient to a Diabet es Self-Management Program Last Documented On 3 1:46PM ; [facility] Work Phone: 1(310) 649-106111-30-2023 Evaluation note Includes: Assessments for all patient encounters Findings Encounter Date Moderate recurrent major depression BH E stablished Patient with Janina Meghan BICYCLE COURIER-S 04/18/2023 Last Documented On 3 1:42PM ; [facility] [Z68.35 - Body mass index [B WY] 35.0-35.9, adult] assessment of body mass index Medical Established Patient with Latia Sparks DRESSMAKER HELPER 04/18/2023 Last Documented On 3 2:51PM ; [facility] Assessment of body mass index Medical Es tablished Patient with Latia Sparks DRESSMAKER HELPER 11/15/2022 Last Documented On 3 2:53PM ; [facility] Generalized anxiety disorder Establis hed Patient with Janina Meghan BICYCLE COURIER-S 11/08/2022 Last Documented On 3 10:03PM ; [facility] Hyperlipidemia Nurse Visit with Latia Hoffmanim [facility] 11/08/2022 Last Documented On 3 2:16PM ; [facility] Venipuncture was performed Nurse Visit with Kathia Sparks [facility] 11/08/2022 Last Documented On 3 2:16PM ; [facility] [Z68.36 - Body mass index [B WY] 36.0-36.9, adult] assessment of body mass index Medical Established Patient with Latia Sparks DRESSMAKER HELPER 08/02/2022 Last Documented On 3 1:36PM ; [facility] Intervention and counseling on cessation of tobacco use, 3-10 minutes Discussed medication and nicotine replacement for tobacco cessation Medical Established Patient with Latia Sparks DRESSMAKER HELPER 08/02/2022 Last Documented On 3 1:36PM ; [facility] Visit for: person consulting for explanation of examination or test findings Medical Established Patient with Latia Sparks DRESSMAKER HELPER 08/02/2022 Last Documented On 3 1:36PM ; [facility] Generalized anxiety disorder BH Establis hed Patient with Cinthia Farfan BICYCLE COURIER-S 07/23/2022 Last Documented On 3 12:17AM ; [facility] Intervention and counseling on cessation of tobacco use, 3-10 minutes Discussed medication and nicotine replacement for tobacco cessation Established Patient with Cinthia Farfan BICYCLE COURIER-S 07/23/2022 Last Documented On 3 12:17AM ; [facility] Moderate recurrent major depression E stablished Patient with Cinthia Farfan BICYCLE COURIER-S 07/23/2022 Last Documented On 3 12:17AM ; [facility] Nicotine dependence Established Patient with Cinthia Farfan BICYCLE COURIER-S 07/23/2022 Last Documented On 3 12:17AM ; [facility] Primary insomnia Established Patient with Deysi Farfan BICYCLE COURIER-S 07/23/2022 Last Documented On 3 12:17AM ; [facility] [Z68.36 - Body mass index [B WY] 36.0-36.9, adult] assessment of body mass index Medical New Patient with Latia Sparks DRESSMAKER HELPER 07/23/2022 Last Documented On 3 2:32PM ; [facility] Diabetes Risk Test Score was nine score 07/23/2022 Medical New Patient with Latia Hoffmanim DRESSMAKER HELPER 07/23/2022 Last Documented On 3 2:32PM ; [facility] Intervention and counseling on cessation of tobacco use, 3-10 minutes Discussed medication and nicotine replacement for tobacco cessation Medical New Patient with Latia Hoffmanim DRESSMAKER HELPER 07/23/2022 Last Documented On 3 2:32PM ; [facility] Screening for Hep C Medical New Patient with Nad yelitza Sparks DRESSMAKER HELPER 07/23/2022 Last Documented On 3 2:32PM ; [facility] Screening for HIV Medical New Patient with Hiren a Sparks DRESSMAKER HELPER 07/23/2022 Last Documented On 3 2:32PM ; [facility] Venipuncture was performed Medical New Patient w dmitry Hoffmanim DRESSMAKER HELPER 07/23/2022 Last Documented On 3 2:32PM ; [facility] Visit for routine adult H&P without abnormal findings Medical New Patient with Latia Hoffmanim DRESSMAKER HELPER 07/23/2022 Last Documented On 3 2:32PM ; [facility] Work Phone: [phone]) 821-100911-30-2023 Evaluation note Includes: Assessments for all patient encounters Findings Encounter Date Moderate recurrent major depression BH E stablished Patient with Janina Meghan BICYCLE COURIER-S 04/18/2023 Last Documented On 3 1:42PM ; [facility] [Z68.35 - Body mass index [B WY] 35.0-35.9, adult] assessment of body mass index Medical Established Patient with Latia Sparks DRESSMAKER HELPER 04/18/2023 Last Documented On 3 10:11PM ; [facility] Nicotine dependence Medical Established Patient with Latia Sparks DRESSMAKER HELPER 04/18/2023 Last Documented On 3 10:11PM ; [facility] 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 Medical Established Patient with Latia Sparks DRESSMAKER HELPER 04/18/2023 Last Documented On 3 10:11PM ; [facility] Assessment of body mass index Medical Es tablished Patient with Latia Sparks DRESSMAKER HELPER 11/15/2022 Last Documented On 3 2:53PM ; [facility] Generalized anxiety disorder BH Establis hed Patient with Janina Meghan BICYCLE COURIER-S 11/08/2022 Last Documented On 3 10:03PM ; [facility] Hyperlipidemia Nurse Visit with Latia Farooqahim DRESSMAKER HELPER 11/08/2022 Last Documented On 3 2:16PM ; [facility] Venipuncture was performed Nurse Visit with Kathia Hoffmanim DRESSMAKER HELPER 11/08/2022 Last Documented On 3 2:16PM ; [facility] [Z68.36 - Body mass index [B WY] 36.0-36.9, adult] assessment of body mass index Medical Established Patient with Latia Sparks DRESSMAKER HELPER 08/02/2022 Last Documented On 3 1:36PM ; [facility] Intervention and counseling on cessation of tobacco use, 3-10 minutes Discussed medication and nicotine replacement for tobacco cessation Medical Established Patient with Latia Sparks DRESSMAKER HELPER 08/02/2022 Last Documented On 3 1:36PM ; [facility] Visit for: person consulting for explanation of examination or test findings Medical Established Patient with Latia Hoffmanim DRESSMAKER HELPER 08/02/2022 Last Documented On 3 1:36PM ; [facility] Generalized anxiety disorder Establis hed Patient with Cinthia Stone BICYCLE COURIER-S 07/23/2022 Last Documented On 3 12:17AM ; [facility] Intervention and counseling on cessation of tobacco use, 3-10 minutes Discussed medication and nicotine replacement for tobacco cessation Established Patient with Cinthia Stone BICYCLE COURIER-S 07/23/2022 Last Documented On 3 12:17AM ; [facility] Moderate recurrent major depression E stablished Patient with Cinthia Stone BICYCLE COURIER-S 07/23/2022 Last Documented On 3 12:17AM ; [facility] Nicotine dependence Established Patient with Cinthia Stone BICYCLE COURIER-S 07/23/2022 Last Documented On 3 12:17AM ; [facility] Primary insomnia Established Patient with Deysi pugh Stone BICYCLE COURIER-S 07/23/2022 Last Documented On 3 12:17AM ; [facility] [Z68.36 - Body mass index [B WY] 36.0-36.9, adult] assessment of body mass index Medical New Patient with Latia Hoffmanim DRESSMAKER HELPER 07/23/2022 Last Documented On 3 2:32PM ; [facility] Diabetes Risk Test Score was nine score 07/23/2022 Medical New Patient with Latia Hoffmanim DRESSMAKER HELPER 07/23/2022 Last Documented On 3 2:32PM ; [facility] Intervention and counseling on cessation of tobacco use, 3-10 minutes Discussed medication and nicotine replacement for tobacco cessation Medical New Patient with Latia Hoffmanim DRESSMAKER HELPER 07/23/2022 Last Documented On 3 2:32PM ; [facility] Screening for Hep C Medical New Patient with Nad yelitza Hoffmanim DRESSMAKER HELPER 07/23/2022 Last Documented On 3 2:32PM ; [facility] Screening for HIV Medical New Patient with Hiren Sparks DRESSMAKER HELPER 07/23/2022 Last Documented On 3 2:32PM ; [facility] Venipuncture was performed Medical New Patient christiano Sparks DRESSMAKER HELPER 07/23/2022 Last Documented On 3 2:32PM ; [facility] Visit for routine adult H&P without abnormal findings Medical New Patient with Latia Sparks 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 HELPER 07/23/2022 Last Documented On 3 2:32PM ; [facility] Work Phone: 1(419) 347-171611-30-2023 History general Narrative - Reported Includes: Medical History in patient's chart Description Last Updated Not planning to have a baby in the next 12 months 04/18/2023 Last Documented On 3 10:11PM ; [facility] No previous suicide attempt 07/24/2022 Last Documented On 3 12:17AM ; [facility] A recent examination by an ophthalmologi st 07/21/2022 07/23/2022 Last Documented On 3 2:32PM ; [facility] History of diabetes mellitus 07/23/2022 Last Documented On 3 2:32PM ; [facility] History of systemic hypertension 023 Last Documented On 3 2:32PM ; [facility] No previous hospitalizations 07/23/2022 Last Documented On 3 2:32PM ; [facility] Recent immunization for flu 07/23/2022 Last Documented On 3 2:32PM ; [facility] Work Phone: [phone]) 940-787111-30-2023 Progress note* Progress note Date Encounter Last Documented by 04/18/2023 BH Established Patient Last docu mented on 04/20/2023; 1:42 PM, Janina FRIED; [facility] Active Problems & Conditions - 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 [...] follow up. History of Present Illness Tunde Jcak is a 72 year old female. - [...] previous hospitalizations. A recent examination by an well head pumper 07/21/2022. Immunization History: Recent immunization for flu. [...] Health Reminders - Eye Exam satisfied 07/21/2022. [facility]11-30-2023 Progress note* Progress note Date Encounter Last Documented by 04/18/2023 Medical Established Patient Last documented on 04/21/2023; 10:11 PM, Latia Sparks DRESSMAKER HELPER; [facility] Active Problems & Conditions - E11.610 - [...] previous hospitalizations. A recent examination by an well head pumper 07/21/2022. Immunization History: Recent immunization for flu. [...] dhaliwal), and gender identity Female. Allergies - Nunn Reaction: Hives / Urticaria, Shock - Mellaril [...] BP-Sitting R138/80 mmHg BP Cuff SizeLarge Pulse Rate-Qagttbg44 bpm Respiration Rate18 per min Temp-Oral97.8 F Agfvgk64 in Vtyunj587 lbs Body Mass Index35.7 kg/m2 Body Surface Area2 m2 Oxygen Hejzstmvjn46 % O2 DeviceNone (Room Air) JxT412 % Vital Signs: - Systolic blood pressure [...] + 0 pt : Not at all. 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 A recent examination by an well head pumper 07/21/2022. Immunization History: Recent immunization for flu. Diagnoses: Systemic hypertension. Diabetes mellitus Surgical: - Cholecystectomy - Hernia repair - Hysterectomy - Tubal ligation Allergies - Nunn Reaction: Hives / Urticaria, Shock - Mellaril - PENICILLINS Reaction: Hives / Urticaria - Topamax Family History Maternal: Type 1 diabetes mellitus Plan StartCited- Acute sinusitis, unspecified Azithromycin 250 MG tablet 500 mg by mouth x 1 day 1, then 250 mg by mouth daily x 4 days., 5 days, 0 refills EndCited [facility]11-13-2023 Instructions Includes: Instructions for all patient encounters Instructions to patient Intervention and counseling on cessation of tobacco use, 3-10 minutes Discussed medication and nicotine replacement for tobacco cessation Last Documented On 3 1:05PM ; [facility] Intervention and counseling on cessation of tobacco use, 3-10 minutes Discussed medication and nicotine replacement for tobacco cessation Last Documented On 3 1:02PM ; [facility] Intervention and counseling on cessation of tobacco use, 3-10 minutes Discussed medication and nicotine replacement for tobacco cessation Last Documented On 3 1:13PM ; [facility] Education and Decision Aids were provided during visit for: Discussed nutritional needs teach healthy choices including fruits and vegetables Last Documented On 3 2:25PM ; [facility] Patient education about a pr oper diet 37.4 Last Documented On 3 2:25PM ; [facility] Patient education about phys ical activity benefits Last Documented On 3 2:50PM ; [facility] Patient education about medi cation Last Documented On 3 2:50PM ; [facility] Patient education about ment al health Last Documented On 3 2:50PM ; [facility] Discussed concerns about exe rcise : promote physical activity Last Documented On 3 2:25PM ; [facility] encouraged patient to ut ilize positive supports and coping skills. ~[facility] encouraged patient to contact [facility] if they need any additional support or resources. ~ Last Documented On 3 10:03PM ; [facility] Discussed nutritional needs teach healthy choices including fruits and vegetables Last Documented On 3 10:23AM ; [facility] Patient education about a pr oper diet 36.7 Last Documented On 3 10:23AM ; [facility] Patient education about phys ical activity benefits Last Documented On 3 1:07PM ; [facility] Patient education about medi cation Last Documented On 3 1:07PM ; [facility] Patient education about ment al health Last Documented On 3 1:07PM ; [facility] Discussed concerns about exe rcise : promote physical activity Last Documented On 3 10:23AM ; [facility] introduced patient to [facility] integrated model of care. ~P offered active and supportive listening, normalized emotions and feelings, and processed current stressors. ~Discussed healthy coping skills and positive supports in patient's life. ~Discussed healthy lifestyle behaviors. ~ Last Documented On 3 12:10AM ; [facility] Discussed nutritional needs 36 teach healthy choices including fruits and vegetables Last Documented On 3 12:20PM ; [facility] Patient education about a pr oper diet 36 Last Documented On 3 12:20PM ; [facility] Discussed concerns about exe rcise : promote physical activity Last Documented On 3 12:20PM ; [facility] Referred Patient to a Diabet es Self-Management Program Last Documented On 3 1:46PM ; [facility] Work Phone: 1(653) 336-711306-29-2023 Evaluation note Includes: Assessments for all patient encounters Findings Encounter Date Assessment of body mass index Medical Es tablished Patient with Latia Sparks [facility] 11/15/2022 Last Documented On 3 2:53PM ; [facility] Generalized anxiety disorder BH Establis hed Patient with Janina Christianson [facility] 11/08/2022 Last Documented On 3 10:03PM ; [facility] Hyperlipidemia Nurse Visit with Latia Hoffmanim [facility] 11/08/2022 Last Documented On 3 2:16PM ; [facility] Venipuncture was performed Nurse Visit with Kathia Sparks [facility] 11/08/2022 Last Documented On 3 2:16PM ; [facility] [Z68.36 - Body mass index [B WY] 36.0-36.9, adult] assessment of body mass index Medical Established Patient with Latia Hoffmanim [facility] 08/02/2022 Last Documented On 3 1:36PM ; [facility] Intervention and counseling on cessation of tobacco use, 3-10 minutes Discussed medication and nicotine replacement for tobacco cessation Medical Established Patient with Latia Sparks [facility] 08/02/2022 Last Documented On 3 1:36PM ; [facility] Visit for: person consulting for explanation of examination or test findings Medical Established Patient with Latia Sparks [facility] 08/02/2022 Last Documented On 3 1:36PM ; [facility] Generalized anxiety disorder Establis hed Patient with Cinthia Stone [facility] 07/23/2022 Last Documented On 3 12:17AM ; [facility] Intervention and counseling on cessation of tobacco use, 3-10 minutes Discussed medication and nicotine replacement for tobacco cessation Established Patient with Cinthia Stone [facility] 07/23/2022 Last Documented On 3 12:17AM ; [facility] Moderate recurrent major depression E stablished Patient with Cinthia Stone [facility] 07/23/2022 Last Documented On 3 12:17AM ; [facility] Nicotine dependence Established Patient with Cinthia Stone [facility] 07/23/2022 Last Documented On 3 12:17AM ; [facility] Primary insomnia Established Patient with Deysi pugh Stone [facility] 07/23/2022 Last Documented On 3 12:17AM ; [facility] [Z68.36 - Body mass index [B WY] 36.0-36.9, adult] assessment of body mass index Medical New Patient with Latia Sparks [facility] 07/23/2022 Last Documented On 3 2:32PM ; [facility] Diabetes Risk Test Score was nine score 07/23/2022 Medical New Patient with Latia Sparks [facility] 07/23/2022 Last Documented On 3 2:32PM ; [facility] Intervention and counseling on cessation of tobacco use, 3-10 minutes Discussed medication and nicotine replacement for tobacco cessation Medical New Patient with Latia Sparks [facility] 07/23/2022 Last Documented On 3 2:32PM ; [facility] Screening for Hep C Medical New Patient with Nad yelitza Sparks [facility] 07/23/2022 Last Documented On 3 2:32PM ; [facility] Screening for HIV Medical New Patient with Hiren Sparks [facility] 07/23/2022 Last Documented On 3 2:32PM ; [facility] Venipuncture was performed Medical New Patient w dmitry Sparks [facility] 07/23/2022 Last Documented On 3 2:32PM ; [facility] Visit for routine adult H&P without abnormal findings Medical New Patient with Latia Sparks [facility] 07/23/2022 Last Documented On 3 2:32PM ; [facility] Work Phone: [phone]) 516-922606-29-2023 Progress note* Progress note Date Encounter Last Documented by 11/15/2022 Medical Established Patient Last documented on 11/15/2022; 2:53 PM, Latia Sparks [facility]; [facility] Active Problems & Conditions - E11.610 - [...] The patient is currently living at a halfway that does not follow any diabetic or [...] previous hospitalizations. A recent examination by an well head pumper 07/21/2022. Immunization History: Recent immunization for flu. [...] 11/15/2022 02:17 pm BP-Sitting R143/78 mmHg Pulse Rate-Hqyzoiu34 bpm Vtbhmh72 in Lqmvfe909 lbs Body Mass Index37.4 kg/m2 Body Surface Area2 m2 Oxygen Emlyfnskrh58 % - Vitals taken 11/15/2022 02:24 pm BP-Uyttzgg295/82 mmHg General Appearance: - Awake. - Alert. [...] and diastolic 80-89 mmHg diastolic 80-89 mmHg. [facility]06-24-2023 Instructions Includes: Instructions for all patient encounters Instructions to patient Intervention and counseling on cessation of tobacco use, 3-10 minutes Discussed medication and nicotine replacement for tobacco cessation Last Documented On 3 1:05PM ; [facility] Intervention and counseling on cessation of tobacco use, 3-10 minutes Discussed medication and nicotine replacement for tobacco cessation Last Documented On 3 1:02PM ; [facility] Intervention and counseling on cessation of tobacco use, 3-10 minutes Discussed medication and nicotine replacement for tobacco cessation Last Documented On 3 1:13PM ; [facility] Education and Decision Aids were provided during visit for: [facility] encouraged patient to ut ilize positive supports and coping skills. ~[facility] encouraged patient to contact [facility] if they need any additional support or resources. ~ Last Documented On 3 10:03PM ; [facility] Discussed nutritional needs teach healthy choices including fruits and vegetables Last Documented On 3 10:23AM ; [facility] Patient education about a pr oper diet 36.7 Last Documented On 3 10:23AM ; [facility] Patient education about phys ical activity benefits Last Documented On 3 1:07PM ; [facility] Patient education about medi cation Last Documented On 3 1:07PM ; [facility] Patient education about ment al health Last Documented On 3 1:07PM ; [facility] Discussed concerns about exe rcise : promote physical activity Last Documented On 3 10:23AM ; [facility] introduced patient to [facility] integrated model of care. ~[facility] offered active and supportive listening, normalized emotions and feelings, and processed current stressors. ~Discussed healthy coping skills and positive supports in patient's life. ~Discussed healthy lifestyle behaviors. ~ Last Documented On 3 12:10AM ; [facility] Discussed nutritional needs 36 teach healthy choices including fruits and vegetables Last Documented On 3 12:20PM ; [facility] Patient education about a pr oper diet 36 Last Documented On 3 12:20PM ; [facility] Discussed concerns about exe rcise : promote physical activity Last Documented On 3 12:20PM ; [facility] Referred Patient to a Diabet es Self-Management Program Last Documented On 3 1:46PM ; [facility] Work Phone: [phone]) 190-828306-22-2023 Evaluation note Includes: Assessments for all patient encounters Findings Encounter Date Hyperlipidemia Nurse Visit with Latia Sparks [facility] 11/08/2022 Last Documented On 3 2:16PM ; [facility] Venipuncture was performed Nurse Visit with Kathia Sparks [facility] 11/08/2022 Last Documented On 3 2:16PM ; [facility] [Z68.36 - Body mass index [B WY] 36.0-36.9, adult] assessment of body mass index Medical Established Patient with Latia Sparks [facility] 08/02/2022 Last Documented On 3 1:36PM ; [facility] Intervention and counseling on cessation of tobacco use, 3-10 minutes Discussed medication and nicotine replacement for tobacco cessation Medical Established Patient with Latia Sparks [facility] 08/02/2022 Last Documented On 3 1:36PM ; [facility] Visit for: person consulting for explanation of examination or test findings Medical Established Patient with Latia Sparks [facility] 08/02/2022 Last Documented On 3 1:36PM ; [facility] Generalized anxiety disorder BH Establis hed Patient with Cinthia Stone [facility] 07/23/2022 Last Documented On 3 12:17AM ; [facility] Intervention and counseling on cessation of tobacco use, 3-10 minutes Discussed medication and nicotine replacement for tobacco cessation Established Patient with Cinthia Stone [facility] 07/23/2022 Last Documented On 3 12:17AM ; [facility] Moderate recurrent major depression E stablished Patient with Cinthia Stone [facility] 07/23/2022 Last Documented On 3 12:17AM ; [facility] Nicotine dependence Established Patient with Cinthia Stone [facility] 07/23/2022 Last Documented On 3 12:17AM ; [facility] Primary insomnia Established Patient with Deysi pugh Stone [facility] 07/23/2022 Last Documented On 3 12:17AM ; [facility] [Z68.36 - Body mass index [B WY] 36.0-36.9, adult] assessment of body mass index Medical New Patient with Latia Hoffmanim [facility] 07/23/2022 Last Documented On 3 2:32PM ; [facility] Diabetes Risk Test Score was nine score 07/23/2022 Medical New Patient with Latia Sparks [facility] 07/23/2022 Last Documented On 3 2:32PM ; [facility] Intervention and counseling on cessation of tobacco use, 3-10 minutes Discussed medication and nicotine replacement for tobacco cessation Medical New Patient with Latia Sparks [facility] 07/23/2022 Last Documented On 3 2:32PM ; [facility] Screening for Hep C Medical New Patient with Nad yelitza Farooqahim [facility] 07/23/2022 Last Documented On 3 2:32PM ; [facility] Screening for HIV Medical New Patient with Hiren a Sparks [facility] 07/23/2022 Last Documented On 3 2:32PM ; [facility] Venipuncture was performed Medical New Patient w dmitry Hoffmanim [facility] 07/23/2022 Last Documented On 3 2:32PM ; [facility] Visit for routine adult H&P without abnormal findings Medical New Patient with Latianova Hoffmanim [facility] 07/23/2022 Last Documented On 3 2:32PM ; [facility] Work Phone: [phone]) 730-276006-22-2023 Evaluation note Includes: Assessments for all patient encounters Findings Encounter Date Generalized anxiety disorder BH Establis hed Patient with Janinasam Christianson [facility] 11/08/2022 Last Documented On 3 10:03PM ; [facility] Hyperlipidemia Nurse Visit with Latia Hoffmanim [facility] 11/08/2022 Last Documented On 3 2:16PM ; [facility] Venipuncture was performed Nurse Visit with Kathia Hoffmanim [facility] 11/08/2022 Last Documented On 3 2:16PM ; [facility] [Z68.36 - Body mass index [B WY] 36.0-36.9, adult] assessment of body mass index Medical Established Patient with Latia Sparks [facility] 08/02/2022 Last Documented On 3 1:36PM ; [facility] Intervention and counseling on cessation of tobacco use, 3-10 minutes Discussed medication and nicotine replacement for tobacco cessation Medical Established Patient with Latia Sparks [facility] 08/02/2022 Last Documented On 3 1:36PM ; [facility] Visit for: person consulting for explanation of examination or test findings Medical Established Patient with Latia Sparks [facility] 08/02/2022 Last Documented On 3 1:36PM ; [facility] Generalized anxiety disorder Establis hed Patient with Cinthia Stone [facility] 07/23/2022 Last Documented On 3 12:17AM ; [facility] Intervention and counseling on cessation of tobacco use, 3-10 minutes Discussed medication and nicotine replacement for tobacco cessation Established Patient with Cinthia Stone [facility] 07/23/2022 Last Documented On 3 12:17AM ; [facility] Moderate recurrent major depression E stablished Patient with Cinthia Stone [facility] 07/23/2022 Last Documented On 3 12:17AM ; [facility] Nicotine dependence Established Patient with Cinthia Stone [facility] 07/23/2022 Last Documented On 3 12:17AM ; [facility] Primary insomnia Established Patient with Deysi pugh Stone [facility] 07/23/2022 Last Documented On 3 12:17AM ; [facility] [Z68.36 - Body mass index [B WY] 36.0-36.9, adult] assessment of body mass index Medical New Patient with Latia Sparks [facility] 07/23/2022 Last Documented On 3 2:32PM ; [facility] Diabetes Risk Test Score was nine score 07/23/2022 Medical New Patient with Latia Sparks [facility] 07/23/2022 Last Documented On 3 2:32PM ; [facility] Intervention and counseling on cessation of tobacco use, 3-10 minutes Discussed medication and nicotine replacement for tobacco cessation Medical New Patient with Latia Sparks [facility] 07/23/2022 Last Documented On 3 2:32PM ; [facility] Screening for Hep C Medical New Patient with Nad yelitza Sparks [facility] 07/23/2022 Last Documented On 3 2:32PM ; [facility] Screening for HIV Medical New Patient with Hiren Sparks [facility] 07/23/2022 Last Documented On 3 2:32PM ; [facility] Venipuncture was performed Medical New Patient w dmitry Sparks [facility] 07/23/2022 Last Documented On 3 2:32PM ; [facility] Visit for routine adult H&P without abnormal findings Medical New Patient with Latia Sparks [facility] 07/23/2022 Last Documented On 3 2:32PM ; [facility] Work Phone: 1(672) 335-405606-22-2023 Progress note* Progress note Date Encounter Last Documented by 11/08/2022 Nurse Visit Last documented on 11/08/2022; 2:16 PM, Latia Sparks [facility]; [facility] Active Problems & Conditions - E11.610 - [...] previous hospitalizations. A recent examination by an well head pumper 07/21/2022. Immunization History: Recent immunization for flu. 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 [...] previous hospitalizations. A recent examination by an well head pumper 07/21/2022. Immunization History: Recent immunization for flu. [...] - Collaborated with patient and provider: Counseling/Education [facility] encouraged patient to utilize positive supports and coping skills. P encouraged patient to contact [facility] if they need any additional support or resources. . Plan [facility] to follow up with patient at [...] + 0 pt : Not at all. [facility]06-22-2023 Instructions Includes: Instructions for all patient encounters Instructions to patient Intervention and counseling on cessation of tobacco use, 3-10 minutes Discussed medication and nicotine replacement for tobacco cessation Last Documented On 3 1:05PM ; [facility] Intervention and counseling on cessation of tobacco use, 3-10 minutes Discussed medication and nicotine replacement for tobacco cessation Last Documented On 3 1:02PM ; [facility] Intervention and counseling on cessation of tobacco use, 3-10 minutes Discussed medication and nicotine replacement for tobacco cessation Last Documented On 3 1:13PM ; [facility] Education and Decision Aids were provided during visit for: Discussed nutritional needs teach healthy choices including fruits and vegetables Last Documented On 3 10:23AM ; [facility] Patient education about a pr oper diet 36.7 Last Documented On 3 10:23AM ; [facility] Patient education about phys ical activity benefits Last Documented On 3 1:07PM ; [facility] Patient education about medi cation Last Documented On 3 1:07PM ; [facility] Patient education about ment al health Last Documented On 3 1:07PM ; [facility] Discussed concerns about exe rcise : promote physical activity Last Documented On 3 10:23AM ; [facility] introduced patient to [facility] integrated model of care. ~P offered active and supportive listening, normalized emotions and feelings, and processed current stressors. ~Discussed healthy coping skills and positive supports in patient's life. ~Discussed healthy lifestyle behaviors. ~ Last Documented On 3 12:10AM ; [facility] Discussed nutritional needs 36 teach healthy choices including fruits and vegetables Last Documented On 3 12:20PM ; [facility] Patient education about a pr oper diet 36 Last Documented On 3 12:20PM ; [facility] Discussed concerns about exe rcise : promote physical activity Last Documented On 3 12:20PM ; [facility] Referred Patient to a Diabet es Self-Management Program Last Documented On 3 1:46PM ; [facility] Work Phone: 1(635) 430-274804-11-2023 NoteCONSULTATION CONSULTATION DATE: 08/28/2022 TO: Geraldo Prado [...] the lower extremities MEDICATION: Current medication includes [place] 5 mg b.i.d. p.r.n. She reports that she has not been taking her Xanax. She reports the [place] does seem to increase in her quality [...] our patients to inform us about any hzzj-btg-lvsipog medications or herbal remedies/nutritional supplements/alternative remedies. 2. [...] treatment options with their primary care provider.[id number] Progress note* Progress note Date Encounter Last Documented by 08/02/2022 Medical Established Patient Last documented on 08/02/2022; 1:36 PM, Latia MAYORGA; [facility] Active Problems & Conditions - E11.610 - [...] results, Pt needs tresiba [facility] just for today. Referred Here No [...] has been provided. The patient lives a halfway, where food is cooking Current Medication - [...] previous hospitalizations. A recent examination by an well head pumper 07/21/2022. Immunization History: Recent immunization for flu. [...] BP-Sitting R138/82 mmHg BP Cuff SizeLarge Pulse Rate-Jpatdoi13 bpm Pulse RhythmRegular Respiration Rate18 per min Temp-Ucspbomn65.5 F Qmgaaz44 in Pcspme405 lbs Body Mass Index36.7 kg/m2 Body Surface Area2 m2 Oxygen Bwcvztbaqc75 % O2 DeviceNone (Room Air) [id number] % General Appearance: - Awake. - Alert. [...] and diastolic 80-89 mmHg diastolic 80-89 mmHg. [facility]03-16-2023 Instructions Includes: Instructions for all patient encounters Instructions to patient Intervention and counseling on cessation of tobacco use, 3-10 minutes Discussed medication and nicotine replacement for tobacco cessation Last Documented On 3 1:05PM ; [facility] Intervention and counseling on cessation of tobacco use, 3-10 minutes Discussed medication and nicotine replacement for tobacco cessation Last Documented On 3 1:02PM ; [facility] Intervention and counseling on cessation of tobacco use, 3-10 minutes Discussed medication and nicotine replacement for tobacco cessation Last Documented On 3 1:13PM ; [facility] Education and Decision Aids were provided during visit for: Discussed nutritional needs teach healthy choices including fruits and vegetables Last Documented On 3 10:23AM ; [facility] Patient education about a pr oper diet 36.7 Last Documented On 3 10:23AM ; [facility] Patient education about phys ical activity benefits Last Documented On 3 1:07PM ; [facility] Patient education about medi cation Last Documented On 3 1:07PM ; [facility] Patient education about ment al health Last Documented On 3 1:07PM ; [facility] Discussed concerns about exe rcise : promote physical activity Last Documented On 3 10:23AM ; [facility] introduced patient to [facility] integrated model of care. ~P offered active and supportive listening, normalized emotions and feelings, and processed current stressors. ~Discussed healthy coping skills and positive supports in patient's life. ~Discussed healthy lifestyle behaviors. ~ Last Documented On 3 12:10AM ; [facility] Discussed nutritional needs 36 teach healthy choices including fruits and vegetables Last Documented On 3 12:20PM ; [facility] Patient education about a pr oper diet 36 Last Documented On 3 12:20PM ; [facility] Discussed concerns about exe rcise : promote physical activity Last Documented On 3 12:20PM ; [facility] Referred Patient to a Diabet es Self-Management Program Last Documented On 3 1:46PM ; [facility] Work Phone: [phone]) 959-254403-16-2023 Instructions Includes: Instructions for all patient encounters Instructions to patient Intervention and counseling on cessation of tobacco use, 3-10 minutes Discussed medication and nicotine replacement for tobacco cessation Last Documented On 3 1:05PM ; [facility] Intervention and counseling on cessation of tobacco use, 3-10 minutes Discussed medication and nicotine replacement for tobacco cessation Last Documented On 3 1:02PM ; [facility] Intervention and counseling on cessation of tobacco use, 3-10 minutes Discussed medication and nicotine replacement for tobacco cessation Last Documented On 3 1:13PM ; [facility] Education and Decision Aids were provided during visit for: Discussed nutritional needs teach healthy choices including fruits and vegetables Last Documented On 3 10:23AM ; [facility] Patient education about a pr oper diet 36.7 Last Documented On 3 10:23AM ; [facility] Patient education about phys ical activity benefits Last Documented On 3 1:07PM ; [facility] Patient education about medi cation Last Documented On 3 1:07PM ; [facility] Patient education about ment al health Last Documented On 3 1:07PM ; [facility] Discussed concerns about exe rcise : promote physical activity Last Documented On 3 10:23AM ; [facility] introduced patient to [facility] integrated model of care. ~P offered active and supportive listening, normalized emotions and feelings, and processed current stressors. ~Discussed healthy coping skills and positive supports in patient's life. ~Discussed healthy lifestyle behaviors. ~ Last Documented On 3 12:10AM ; [facility] Discussed nutritional needs 36 teach healthy choices including fruits and vegetables Last Documented On 3 12:20PM ; [facility] Patient education about a pr oper diet 36 Last Documented On 3 12:20PM ; [facility] Discussed concerns about exe rcise : promote physical activity Last Documented On 3 12:20PM ; [facility] Referred Patient to a Diabet es Self-Management Program Last Documented On 3 1:46PM ; [facility] Work Phone: 1(765) 363-790003-07-2023 History general Narrative - Reported Includes: Medical History in patient's chart Description Last Updated No previous suicide attempt 07/24/2022 Last Documented On 3 12:17AM ; [facility] A recent examination by an ophthalmologi st 07/21/2022 07/23/2022 Last Documented On 3 2:32PM ; [facility] History of diabetes mellitus 07/23/2022 Last Documented On 3 2:32PM ; [facility] History of systemic hypertension 023 Last Documented On 3 2:32PM ; [facility] No previous hospitalizations 07/23/2022 Last Documented On 3 2:32PM ; [facility] Recent immunization for flu 07/23/2022 Last Documented On 3 2:32PM ; [facility] Work Phone: 1([phone]) 245-574603-07-2023 History general Narrative - Reported Includes: Medical History in patient's chart Description Last Updated No previous suicide attempt 07/24/2022 Last Documented On 3 12:17AM ; [facility] A recent examination by an ophthalmologi st 07/21/2022 07/23/2022 Last Documented On 3 2:32PM ; [facility] History of diabetes mellitus 07/23/2022 Last Documented On 3 2:32PM ; [facility] History of systemic hypertension 023 Last Documented On 3 2:32PM ; [facility] No previous hospitalizations 07/23/2022 Last Documented On 3 2:32PM ; [facility] Recent immunization for flu 07/23/2022 Last Documented On 3 2:32PM ; [facility] Work Phone: [phone]) 841-431503-07-2023 History general Narrative - Reported Includes: Medical History in patient's chart Description Last Updated No previous suicide attempt 07/24/2022 Last Documented On 3 12:17AM ; [facility] A recent examination by an ophthalmologi st 07/21/2022 07/23/2022 Last Documented On 3 2:32PM ; [facility] History of diabetes mellitus 07/23/2022 Last Documented On 3 2:32PM ; [facility] History of systemic hypertension 023 Last Documented On 3 2:32PM ; [facility] No previous hospitalizations 07/23/2022 Last Documented On 3 2:32PM ; [facility] Recent immunization for flu 07/23/2022 Last Documented On 3 2:32PM ; [facility] Work Phone: [phone]) 459-169003-07-2023 History general Narrative - Reported Includes: Medical History in patient's chart Description Last Updated No previous suicide attempt 07/24/2022 Last Documented On 3 12:17AM ; [facility] A recent examination by an ophthalmologi st 07/21/2022 07/23/2022 Last Documented On 3 2:32PM ; [facility] History of diabetes mellitus 07/23/2022 Last Documented On 3 2:32PM ; [facility] History of systemic hypertension 023 Last Documented On 3 2:32PM ; [facility] No previous hospitalizations 07/23/2022 Last Documented On 3 2:32PM ; [facility] Recent immunization for flu 07/23/2022 Last Documented On 3 2:32PM ; [facility] Work Phone: [phone] History general Narrative - Reported Includes: Medical History in patient's chart Description Last Updated No previous suicide attempt 07/24/2022 Last Documented On 3 12:17AM ; [facility] A recent examination by an ophthalmologi st 07/21/2022 07/23/2022 Last Documented On 3 2:32PM ; [facility] History of diabetes mellitus 07/23/2022 Last Documented On 3 2:32PM ; [facility] History of systemic hypertension 023 Last Documented On 3 2:32PM ; [facility] No previous hospitalizations 07/23/2022 Last Documented On 3 2:32PM ; [facility] Recent immunization for flu 07/23/2022 Last Documented On 3 2:32PM ; [facility] Work Phone: 1(331) 145-753403-07-2023 History general Narrative - Reported Includes: Medical History in patient's chart Description Last Updated No previous suicide attempt 07/24/2022 Last Documented On 3 12:17AM ; [facility] A recent examination by an ophthalmologi st 07/21/2022 07/23/2022 Last Documented On 3 2:32PM ; [facility] History of diabetes mellitus 07/23/2022 Last Documented On 3 2:32PM ; [facility] History of systemic hypertension 023 Last Documented On 3 2:32PM ; [facility] No previous hospitalizations 07/23/2022 Last Documented On 3 2:32PM ; [facility] Recent immunization for flu 07/23/2022 Last Documented On 3 2:32PM ; [facility] Work Phone: [phone]) [phone] Evaluation note Includes: Assessments for all patient encounters Findings Encounter Date Generalized anxiety disorder Established Shirley ent with Cinthia Stone BICYCLE COURIER 07/23/2022 Last Documented On 3 1:10PM ; [facility] Intervention and counseling on cessation of tobacco use, 3-10 minutes Discussed medication and nicotine replacement for tobacco cessation Established Patient with Cinthia Stone BICYCLE COURIER 07/23/2022 Last Documented On 3 1:10PM ; [facility] Moderate recurrent major depression E stablished Patient with Cinthia Stone BICYCLE COURIER 07/23/2022 Last Documented On 3 1:10PM ; [facility] Nicotine dependence BH Established Patient with Cinthia Stone BICYCLE COURIER 07/23/2022 Last Documented On 3 1:10PM ; [facility] Primary insomnia BH Established Patient with Deysi Farfan BICYCLE COURIER 07/23/2022 Last Documented On 3 1:10PM ; [facility] [Z68.36 - Body mass index [B WY] 36.0-36.9, adult] assessment of body mass index Medical New Patient with Latia Sparks DRESSMAKER HELPER 07/23/2022 Last Documented On 3 2:32PM ; [facility] Diabetes Risk Test Score was nine score 07/23/2022 Medical New Patient with Latia Sparks DRESSMAKER HELPER 07/23/2022 Last Documented On 3 2:32PM ; [facility] Intervention and counseling on cessation of tobacco use, 3-10 minutes Discussed medication and nicotine replacement for tobacco cessation Medical New Patient with Latia Sparks DRESSMAKER HELPER 07/23/2022 Last Documented On 3 2:32PM ; [facility] Screening for Hep C Medical New Patient with Nad yelitza Bridger DRESSMAKER HELPER 07/23/2022 Last Documented On 3 2:32PM ; [facility] Screening for HIV Medical New Patient with Hiren nova Sparks DRESSMAKER HELPER 07/23/2022 Last Documented On 3 2:32PM ; [facility] Venipuncture was performed Medical New Patient w dmitry Sparks DRESSMAKER HELPER 07/23/2022 Last Documented On 3 2:32PM ; [facility] Visit for routine adult H&P without abnormal findings Medical New Patient with Latia Sparks DRESSMAKER HELPER 07/23/2022 Last Documented On 3 2:32PM ; [facility] Work Phone: [phone]) [phone] Evaluation note Includes: Assessments for all patient encounters Findings Encounter Date Generalized anxiety disorder Established Shirley ent with Cinthia Farfan BICYCLE COURIER 07/23/2022 Last Documented On 3 12:17AM ; [facility] Intervention and counseling on cessation of tobacco use, 3-10 minutes Discussed medication and nicotine replacement for tobacco cessation BH Established Patient with Cinthia Stone BICYCLE COURIER 07/23/2022 Last Documented On 3 12:17AM ; [facility] Moderate recurrent major depression E stablished Patient with Cinthia Farfan BICYCLE COURIER 07/23/2022 Last Documented On 3 12:17AM ; [facility] Nicotine dependence Established Patient with Cinthia Farfan BICYCLE COURIER 07/23/2022 Last Documented On 3 12:17AM ; [facility] Primary insomnia Established Patient with Deysi Farfan BICYCLE COURIER 07/23/2022 Last Documented On 3 12:17AM ; [facility] [Z68.36 - Body mass index [B WY] 36.0-36.9, adult] assessment of body mass index Medical New Patient with Latia Sparks DRESSMAKER HELPER 07/23/2022 Last Documented On 3 2:32PM ; [facility] Diabetes Risk Test Score was nine score 07/23/2022 Medical New Patient with Latia Sparks DRESSMAKER HELPER 07/23/2022 Last Documented On 3 2:32PM ; [facility] Intervention and counseling on cessation of tobacco use, 3-10 minutes Discussed medication and nicotine replacement for tobacco cessation Medical New Patient with Latia Hoffmanim DRESSMAKER HELPER 07/23/2022 Last Documented On 3 2:32PM ; [facility] Screening for Hep C Medical New Patient with Nad yelitza Hoffmanim DRESSMAKER HELPER 07/23/2022 Last Documented On 3 2:32PM ; [facility] Screening for HIV Medical New Patient with Hiren a Sparks DRESSMAKER HELPER 07/23/2022 Last Documented On 3 2:32PM ; [facility] Venipuncture was performed Medical New Patient w dmitry Sparks DRESSMAKER HELPER 07/23/2022 Last Documented On 3 2:32PM ; [facility] Visit for routine adult H&P without abnormal findings Medical New Patient with Latia Hoffmanim DRESSMAKER HELPER 07/23/2022 Last Documented On 3 2:32PM ; [facility] Work Phone: 1([phone]) 660-304903-06-2023 Progress note* Progress note Date Encounter Last Documented by 07/23/2022 Medical New Patient Last sydni elkins on 07/23/2022; 2:32 PM, Latia Sparks [facility]; [facility] Active Problems & Conditions - E11.610 [...] A 72 year old female presented to [facility] care. Resides at [facility] Medical history is significant for diabetes mellitus [...] previous hospitalizations. A recent examination by an well head pumper 07/21/2022. Immunization History: Recent immunization for flu. [...] BP-Sitting R168/92 mmHg BP Cuff SizeLarge Pulse Rate-Ylzlvdr235 bpm Pulse RhythmRegular Respiration Rate21 per min Temp-Oral98.3 F Dvytum80 in Cxuewb763 lbs Body Mass Index36 kg/m2 Body Surface Area2 m2 Oxygen Wgyvysbrtz40 % O2 DeviceNone (Room Air) KfE495 % - Vitals taken 07/23/2022 01:38 pm [...] 60 years or older (3 points) [Pre-DM]. [facility]03-06-2023 Progress note* Progress note Date Encounter Last Documented by 07/23/2022 Established Patient Last docu mented on 07/24/2022; 12:17 AM, Cinthia PARRISH; [facility] Active Problems & Conditions - E11.610 - [...] compliant and implementing healthy coping skills Subjective [facility] reviewed PHQ-9 score of 9 and [...] to stop smoking offered Quit Line information [facility] introduced patient to [facility] integrated model of care. [facility] offered active and supportive listening, normalized emotions and feelings, and processed current stressors. Discussed healthy coping skills and positive supports in patient's life. Discussed healthy lifestyle behaviors. . Plan - No Safety Measures Continue to take medications as directed and patient verbalized understanding. Utilize healthy coping skills and positive supports in patient's life. Implement healthy lifestyle coping skills like discussed. [facility] to follow-up with patient at next [...] needed clothing: No, unable to get needed maternal child nurse: No, unable to get needed phone: No, [...] + 0 pt : Not at all. [facility]03-06-2023 Progress note* Progress note Date Encounter Last Documented by 07/23/2022 Established Patient Last docu mented on 07/24/2022; 12:17 AM, Cinthia FRIED; [facility] Active Problems & Conditions - E11.610 - [...] Line information P introduced patient to [facility] integrated model of care. [facility] offered [...] needed clothing: No, unable to get needed maternal child nurse: No, unable to get needed phone: No, [...] + 0 pt : Not at all. [facility]03-06-2023 Reason for referral (narrative)* Date Encounter Description Provider Reason for Referral 07/23/22 Established Patient Cinthia PARRISH Referral To Mental Health Team [facility] Work Phone: [phone]) 214-719003-06-2023 Reason for referral (narrative)* Date Encounter Description Provider Reason for Referral 07/23/22 Established Patient Cinthia WOODSONW- S Referral To Mental Health Team [facility] Work Phone: [phone]) 407-639003-06-2023 Instructions Includes: Instructions for all patient encounters Instructions to patient Intervention and counseling on cessation of tobacco use, 3-10 minutes Discussed medication and nicotine replacement for tobacco cessation Last Documented On 3 1:02PM ; [facility] Intervention and counseling on cessation of tobacco use, 3-10 minutes Discussed medication and nicotine replacement for tobacco cessation Last Documented On 3 1:13PM ; [facility] Education and Decision Aids were provided during visit for: Discussed nutritional needs 36 teach healthy choices including fruits and vegetables Last Documented On 3 12:20PM ; [facility] Patient education about a pr oper diet 36 Last Documented On 3 12:20PM ; [facility] Discussed concerns about exe rcise : promote physical activity Last Documented On 3 12:20PM ; [facility] Referred Patient to a Diabet es Self-Management Program Last Documented On 3 1:46PM ; [facility] Work Phone: [phone]) [phone] Instructions Includes: Instructions for all patient encounters Instructions to patient Intervention and counseling on cessation of tobacco use, 3-10 minutes Discussed medication and nicotine replacement for tobacco cessation Last Documented On 3 1:02PM ; [facility] Intervention and counseling on cessation of tobacco use, 3-10 minutes Discussed medication and nicotine replacement for tobacco cessation Last Documented On 3 1:13PM ; [facility] Education and Decision Aids were provided during visit for: [facility] introduced patient to [facility] integrated model of care. ~[facility] offered active and supportive listening, normalized emotions and feelings, and processed current stressors. ~Discussed healthy coping skills and positive supports in patient's life. ~Discussed healthy lifestyle behaviors. ~ Last Documented On 3 12:10AM ; [facility] Discussed nutritional needs 36 teach healthy choices including fruits and vegetables Last Documented On 3 12:20PM ; [facility] Patient education about a pr oper diet 36 Last Documented On 3 12:20PM ; [facility] Discussed concerns about exe rcise : promote physical activity Last Documented On 3 12:20PM ; [facility] Referred Patient to a Diabet es Self-Management Program Last Documented On 3 1:46PM ; [facility] Work Phone: [phone] 194-162003-04-2023 History general Narrative - Reported Includes: Medical History in patient's chart Description Last Updated A recent examination by an ophthalmologi st 07/21/2022 07/23/2022 Last Documented On 3 2:32PM ; [facility] History of diabetes mellitus 07/23/2022 Last Documented On 3 2:32PM ; [facility] History of systemic hypertension 023 Last Documented On 3 2:32PM ; [facility] No previous hospitalizations 07/23/2022 Last Documented On 3 2:32PM ; [facility] Recent immunization for flu 07/23/2022 Last Documented On 3 2:32PM ; [facility] Work Phone: [phone]) 417-955603-04-2023 History general Narrative - Reported Includes: Medical History in patient's chart Description Last Updated A recent examination by an ophthalmologi st 07/21/2022 results in eye 06/04/2023 Last Documented On 4 11:53AM ; [facility] No previous hospitalizations 05/10/2023 Last Documented On 3 10:52AM ; [facility] Recent eye exam showed no apparent retin opathy present 05/10/2023 Last Documented On 3 10:52AM ; [facility] Not planning to have a baby in the next 12 months 04/18/2023 Last Documented On 3 10:11PM ; [facility] No previous suicide attempt 07/24/2022 Last Documented On 3 12:17AM ; [facility] History of diabetes mellitus 07/23/2022 Last Documented On 3 2:32PM ; [facility] History of systemic hypertension 023 Last Documented On 3 2:32PM ; [facility] Recent immunization for flu 07/23/2022 Last Documented On 3 2:32PM ; [facility] Work Phone: 1([phone]) 522-378903-04-2023 History general Narrative - Reported Includes: Medical History in patient's chart Description Last Updated A recent examination by an ophthalmologi st 07/21/2022 results in eye 06/04/2023 Last Documented On 4 11:53AM ; [facility] No previous hospitalizations 05/10/2023 Last Documented On 3 10:52AM ; [facility] Recent eye exam showed no apparent retin opathy present 05/10/2023 Last Documented On 3 10:52AM ; [facility] Not planning to have a baby in the next 12 months 04/18/2023 Last Documented On 3 10:11PM ; [facility] No previous suicide attempt 07/24/2022 Last Documented On 3 12:17AM ; [facility] History of diabetes mellitus 07/23/2022 Last Documented On 3 2:32PM ; [facility] History of systemic hypertension 023 Last Documented On 3 2:32PM ; [facility] Recent immunization for flu 07/23/2022 Last Documented On 3 2:32PM ; [facility] Work Phone: [phone]) 922-788502-28-2023 NoteCONSULTATION CONSULTATION DATE: 07/17/2022 TO: Dr. Prado [...] as tolerated. To reduce the use of [place] from 5 mg pills q.i.d. to 5 mg pill one b.i.d. as tolerated. Again, I have requested physical therapy for the patient as well. I have gone over the details with the patient. All her questions answered. She agreed to proceed with the outlined plan.[id number] Evaluation note* Encounter Date Diagnosis Assessment Notes [...] understanding and is agreeable to treatment plan Counsyl Other Evaluation noteNo assessment information available [facility] Work Phone: Evaluation note Includes: Assessments for all patient encounters Findings Encounter Date [Z68.36 - Body mass index [B WY] 36.0-36.9, adult] assessment of body mass index Medical Established Patient with Latia Sparks DRESSMAKER HELPER 08/02/2022 Last Documented On 3 1:35PM ; [facility] Intervention and counseling on cessation of tobacco use, 3-10 minutes Discussed medication and nicotine replacement for tobacco cessation Medical Established Patient with Latia Sparks DRESSMAKER HELPER 08/02/2022 Last Documented On 3 1:35PM ; [facility] Visit for: person consulting for explanation of examination or test findings Medical Established Patient with Latia Sparks DRESSMAKER HELPER 08/02/2022 Last Documented On 3 1:35PM ; [facility] Generalized anxiety disorder Established Shirley ent with Cinthia Stone BICYCLE COURIER 07/23/2022 Last Documented On 3 12:17AM ; [facility] Intervention and counseling on cessation of tobacco use, 3-10 minutes Discussed medication and nicotine replacement for tobacco cessation Established Patient with Cinthia Stone BICYCLE COURIER 07/23/2022 Last Documented On 3 12:17AM ; [facility] Moderate recurrent major depression E stablished Patient with Cinthia Stone BICYCLE COURIER 07/23/2022 Last Documented On 3 12:17AM ; [facility] Nicotine dependence Established Patient with Cinthia Stone BICYCLE COURIER 07/23/2022 Last Documented On 3 12:17AM ; [facility] Primary insomnia Established Patient with Deysi pugh Stone BICYCLE COURIER 07/23/2022 Last Documented On 3 12:17AM ; [facility] [Z68.36 - Body mass index [B WY] 36.0-36.9, adult] assessment of body mass index Medical New Patient with Latia Sparks DRESSMAKER HELPER 07/23/2022 Last Documented On 3 2:32PM ; [facility] Diabetes Risk Test Score was nine score 07/23/2022 Medical New Patient with Latia Sparks DRESSMAKER HELPER 07/23/2022 Last Documented On 3 2:32PM ; [facility] Intervention and counseling on cessation of tobacco use, 3-10 minutes Discussed medication and nicotine replacement for tobacco cessation Medical New Patient with Latia Sparks DRESSMAKER HELPER 07/23/2022 Last Documented On 3 2:32PM ; [facility] Screening for Hep C Medical New Patient with Nad yelitza Sparks [facility] 07/23/2022 Last Documented On 3 2:32PM ; [facility] Screening for HIV Medical New Patient with Hiren Sparks DRESSMAKER HELPER 07/23/2022 Last Documented On 3 2:32PM ; [facility] Venipuncture was performed Medical New Patient w dmitry Sparks [facility] 07/23/2022 Last Documented On 3 2:32PM ; [facility] Visit for routine adult H&P without abnormal findings Medical New Patient with Latia Sparks DRESSMAKER HELPER 07/23/2022 Last Documented On 3 2:32PM ; [facility] Work Phone: Evaluation note Includes: Assessments for all patient encounters Findings Encounter Date [Z68.36 - Body mass index [B WY] 36.0-36.9, adult] assessment of body mass index Medical Established Patient with Latia Sparks DRESSMAKER HELPER 08/02/2022 Last Documented On 3 1:36PM ; [facility] Intervention and counseling on cessation of tobacco use, 3-10 minutes Discussed medication and nicotine replacement for tobacco cessation Medical Established Patient with Latia Sparks DRESSMAKER HELPER 08/02/2022 Last Documented On 3 1:36PM ; [facility] Visit for: person consulting for explanation of examination or test findings Medical Established Patient with Latia Sparks DRESSMAKER HELPER 08/02/2022 Last Documented On 3 1:36PM ; [facility] Generalized anxiety disorder BH Established Shirley ent with Cinthia PARRISH 07/23/2022 Last Documented On 3 12:17AM ; [facility] Intervention and counseling on cessation of tobacco use, 3-10 minutes Discussed medication and nicotine replacement for tobacco cessation Established Patient with Cinthia Stone BICYCLE COURIER 07/23/2022 Last Documented On 3 12:17AM ; [facility] Moderate recurrent major depression E stablished Patient with Cinthia Stone BICYCLE COURIER 07/23/2022 Last Documented On 3 12:17AM ; [facility] Nicotine dependence Established Patient with Cinthia Stone BICYCLE COURIER 07/23/2022 Last Documented On 3 12:17AM ; [facility] Primary insomnia Established Patient with Deysi pugh Stone BICYCLE COURIER 07/23/2022 Last Documented On 3 12:17AM ; [facility] [Z68.36 - Body mass index [B WY] 36.0-36.9, adult] assessment of body mass index Medical New Patient with Latia Sparks DRESSMAKER HELPER 07/23/2022 Last Documented On 3 2:32PM ; [facility] Diabetes Risk Test Score was nine score 07/23/2022 Medical New Patient with Latia Sparks DRESSMAKER HELPER 07/23/2022 Last Documented On 3 2:32PM ; [facility] Intervention and counseling on cessation of tobacco use, 3-10 minutes Discussed medication and nicotine replacement for tobacco cessation Medical New Patient with Latia Sparks DRESSMAKER HELPER 07/23/2022 Last Documented On 3 2:32PM ; [facility] Screening for Hep C Medical New Patient with Nad yelitza Sparks DRESSMAKER HELPER 07/23/2022 Last Documented On 3 2:32PM ; [facility] Screening for HIV Medical New Patient with Hiren Sparks DRESSMAKER HELPER 07/23/2022 Last Documented On 3 2:32PM ; [facility] Venipuncture was performed Medical New Patient w dmitry Sparks DRESSMAKER HELPER 07/23/2022 Last Documented On 3 2:32PM ; [facility] Visit for routine adult H&P without abnormal findings Medical New Patient with Latia Sparks DRESSMAKER HELPER 07/23/2022 Last Documented On 3 2:32PM ; [facility] Work Phone: Evaluation note Includes: Assessments for all patient encounters Findings Encounter Date [Z68.35 - Body mass index [B WY] 35.0-35.9, adult] assessment of body mass index Medical Established Patient with Latia Sparks DRESSMAKER HELPER 05/10/2023 Last Documented On 3 10:52AM ; [facility] Nicotine dependence Medical Established Patient with Latia Sparks DRESSMAKER HELPER 05/10/2023 Last Documented On 3 10:52AM ; [facility] Visit for: preoperative exam Medical Est ablished Patient with Latia Sparks DRESSMAKER HELPER 05/10/2023 Last Documented On 3 10:52AM ; [facility] Moderate recurrent major depression BH E stablished Patient with Janina Meghan BICYCLE COURIER-S 04/18/2023 Last Documented On 3 1:42PM ; [facility] [Z68.35 - Body mass index [B WY] 35.0-35.9, adult] assessment of body mass index Medical Established Patient with Latia Sparks DRESSMAKER HELPER 04/18/2023 Last Documented On 3 10:11PM ; [facility] Nicotine dependence Medical Established Patient with Latia Sparks DRESSMAKER HELPER 04/18/2023 Last Documented On 3 10:11PM ; [facility] 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 Medical Established Patient with Latia Sparks DRESSMAKER HELPER 04/18/2023 Last Documented On 3 10:11PM ; [facility] Assessment of body mass index Medical Es tablished Patient with Latia Sparks DRESSMAKER HELPER 11/15/2022 Last Documented On 3 2:53PM ; [facility] Generalized anxiety disorder BH Establis hed Patient with Janina Meghan BICYCLE COURIER-S 11/08/2022 Last Documented On 3 10:03PM ; [facility] Hyperlipidemia Nurse Visit with Latia Sparks DRESSMAKER HELPER 11/08/2022 Last Documented On 3 2:16PM ; [facility] Venipuncture was performed Nurse Visit with Kathia gamino Sparks DRESSMAKER HELPER 11/08/2022 Last Documented On 3 2:16PM ; [facility] [Z68.36 - Body mass index [B WY] 36.0-36.9, adult] assessment of body mass index Medical Established Patient with Latia Sparks DRESSMAKER HELPER 08/02/2022 Last Documented On 3 1:36PM ; [facility] Intervention and counseling on cessation of tobacco use, 3-10 minutes Discussed medication and nicotine replacement for tobacco cessation Medical Established Patient with Latia Hoffmanim DRESSMAKER HELPER 08/02/2022 Last Documented On 3 1:36PM ; [facility] Visit for: person consulting for explanation of examination or test findings Medical Established Patient with Latia Hoffmanim DRESSMAKER HELPER 08/02/2022 Last Documented On 3 1:36PM ; [facility] Generalized anxiety disorder Establis hed Patient with Cinthia Stone BICYCLE COURIER-S 07/23/2022 Last Documented On 3 12:17AM ; [facility] Intervention and counseling on cessation of tobacco use, 3-10 minutes Discussed medication and nicotine replacement for tobacco cessation Established Patient with Cinthia Stone BICYCLE COURIER-S 07/23/2022 Last Documented On 3 12:17AM ; [facility] Moderate recurrent major depression E stablished Patient with Cinthia Stone BICYCLE COURIER-S 07/23/2022 Last Documented On 3 12:17AM ; [facility] Nicotine dependence Established Patient with Cinthia Stone BICYCLE COURIER-S 07/23/2022 Last Documented On 3 12:17AM ; [facility] Primary insomnia Established Patient with Deysi pugh Stone BICYCLE COURIER-S 07/23/2022 Last Documented On 3 12:17AM ; [facility] [Z68.36 - Body mass index [B WY] 36.0-36.9, adult] assessment of body mass index Medical New Patient with Latia Sparks DRESSMAKER HELPER 07/23/2022 Last Documented On 3 2:32PM ; [facility] Diabetes Risk Test Score was nine score 07/23/2022 Medical New Patient with Latia Hoffmanim DRESSMAKER HELPER 07/23/2022 Last Documented On 3 2:32PM ; [facility] Intervention and counseling on cessation of tobacco use, 3-10 minutes Discussed medication and nicotine replacement for tobacco cessation Medical New Patient with Latia Sparks [facility] 07/23/2022 Last Documented On 3 2:32PM ; [facility] Screening for Hep C Medical New Patient with Nad yelitza Sparks [facility] 07/23/2022 Last Documented On 3 2:32PM ; [facility] Screening for HIV Medical New Patient with Hiren Sparks [facility] 07/23/2022 Last Documented On 3 2:32PM ; [facility] Venipuncture was performed Medical New Patient w dmitry Sparks [facility] 07/23/2022 Last Documented On 3 2:32PM ; [facility] Visit for routine adult H&P without abnormal findings Medical New Patient with Latia Sparks [facility] 07/23/2022 Last Documented On 3 2:32PM ; [facility] Work Phone: Evaluation note* Diagnosis Preop examination- Primary Unspecified pre-operative examination Type 2 diabetes mellitus without complication, without long-term current use of insulin ([facility]) Hypertension, unspecified type Preop examination Unspecified pre-operative examination Type 2 diabetes mellitus without complication, without long-term current use of insulin ([facility]) Hypertension, unspecified type documented [facility] this encounter [facility] Assessments for all patient encounters Findings Encounter Date [Z68.35 - Body mass index [B WY] 35.0-35.9, adult] assessment of body mass index Medical Established Patient with Latia Sparks [facility] 06/04/2023 Last Documented On 4 11:53AM ; [facility] Nicotine dependence Medical Established Patient with Latia Sparks DRESSMAKER HELPER 06/04/2023 Last Documented On 4 11:53AM ; [facility] [Z68.35 - Body mass index [B WY] 35.0-35.9, adult] assessment of body mass index Medical Established Patient with Latia Sparks DRESSMAKER HELPER 05/10/2023 Last Documented On 3 10:52AM ; [facility] Nicotine dependence Medical Established Patient with Latia Sparks DRESSMAKER HELPER 05/10/2023 Last Documented On 3 10:52AM ; [facility] Visit for: preoperative exam Medical Est ablished Patient with Latia Sparks DRESSMAKER HELPER 05/10/2023 Last Documented On 3 10:52AM ; [facility] Moderate recurrent major depression BH E stablished Patient with Janina Meghan BICYCLE COURIER-S 04/18/2023 Last Documented On 3 1:42PM ; [facility] [Z68.35 - Body mass index [B WY] 35.0-35.9, adult] assessment of body mass index Medical Established Patient with Latia Sparks DRESSMAKER HELPER 04/18/2023 Last Documented On 3 10:11PM ; [facility] Nicotine dependence Medical Established Patient with Latia Sparks DRESSMAKER HELPER 04/18/2023 Last Documented On 3 10:11PM ; [facility] 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 Medical Established Patient with Latia Sparks DRESSMAKER HELPER 04/18/2023 Last Documented On 3 10:11PM ; [facility] Assessment of body mass index Medical Es tablished Patient with Latia Sparks DRESSMAKER HELPER 11/15/2022 Last Documented On 3 2:53PM ; [facility] Generalized anxiety disorder BH Establis hed Patient with Janina Meghan BICYCLE COURIER-S 11/08/2022 Last Documented On 3 10:03PM ; [facility] Hyperlipidemia Nurse Visit with Latia Sparks DRESSMAKER HELPER 11/08/2022 Last Documented On 3 2:16PM ; [facility] Venipuncture was performed Nurse Visit with Kathia gamino Sparks DRESSMAKER HELPER 11/08/2022 Last Documented On 3 2:16PM ; [facility] [Z68.36 - Body mass index [B WY] 36.0-36.9, adult] assessment of body mass index Medical Established Patient with Latia Sparks DRESSMAKER HELPER 08/02/2022 Last Documented On 3 1:36PM ; [facility] Intervention and counseling on cessation of tobacco use, 3-10 minutes Discussed medication and nicotine replacement for tobacco cessation Medical Established Patient with Latia Hoffmanim DRESSMAKER HELPER 08/02/2022 Last Documented On 3 1:36PM ; [facility] Visit for: person consulting for explanation of examination or test findings Medical Established Patient with Latia Hoffmanim DRESSMAKER HELPER 08/02/2022 Last Documented On 3 1:36PM ; [facility] Generalized anxiety disorder Establis hed Patient with Cinthia Stone BICYCLE COURIER-S 07/23/2022 Last Documented On 3 12:17AM ; [facility] Intervention and counseling on cessation of tobacco use, 3-10 minutes Discussed medication and nicotine replacement for tobacco cessation Established Patient with Cinthia Stone BICYCLE COURIER-S 07/23/2022 Last Documented On 3 12:17AM ; [facility] Moderate recurrent major depression E stablished Patient with Cinthia Stone BICYCLE COURIER-S 07/23/2022 Last Documented On 3 12:17AM ; [facility] Nicotine dependence Established Patient with Cinthia Stone BICYCLE COURIER-S 07/23/2022 Last Documented On 3 12:17AM ; [facility] Primary insomnia Established Patient with Deysi pugh Stone BICYCLE COURIER-S 07/23/2022 Last Documented On 3 12:17AM ; [facility] [Z68.36 - Body mass index [B WY] 36.0-36.9, adult] assessment of body mass index Medical New Patient with Latia Sparks DRESSMAKER HELPER 07/23/2022 Last Documented On 3 2:32PM ; [facility] Diabetes Risk Test Score was nine score 07/23/2022 Medical New Patient with Latia Hoffmanim DRESSMAKER HELPER 07/23/2022 Last Documented On 3 2:32PM ; [facility] Intervention and counseling on cessation of tobacco use, 3-10 minutes Discussed medication and nicotine replacement for tobacco cessation Medical New Patient with Latia Hoffmanim DRESSMAKER HELPER 07/23/2022 Last Documented On 3 2:32PM ; [facility] Screening for Hep C Medical New Patient with Nad yelitza Sparks DRESSMAKER HELPER 07/23/2022 Last Documented On 3 2:32PM ; [facility] Screening for HIV Medical New Patient with Hiren Sparks DRESSMAKER HELPER 07/23/2022 Last Documented On 3 2:32PM ; [facility] Venipuncture was performed Medical New Patient w dmitry Sparks DRESSMAKER HELPER 07/23/2022 Last Documented On 3 2:32PM ; [facility] Visit for routine adult H&P without abnormal findings Medical New Patient with Latia Sparks DRESSMAKER HELPER 07/23/2022 Last Documented On 3 2:32PM ; [facility] Work Phone: History general Narrative - Reported* Type Description Date Medical History diabetes Medical History htn Medical History depression Medical History neuropathy Medical History schizophrenia Counsyl Other History general Narrative - Reported Includes: Medical History in patient's chart Description Last Updated No previous suicide attempt 07/24/2022 Last Documented On 3 12:17AM ; [facility] A recent examination by an ophthalmologi st 07/21/2022 07/23/2022 Last Documented On 3 2:32PM ; [facility] History of diabetes mellitus 07/23/2022 Last Documented On 3 2:32PM ; [facility] History of systemic hypertension 023 Last Documented On 3 2:32PM ; [facility] No previous hospitalizations 07/23/2022 Last Documented On 3 2:32PM ; [facility] Recent immunization for flu 07/23/2022 Last Documented On 3 2:32PM ; [facility] Work Phone: History general Narrative - Reported Includes: Medical History in patient's chart Description Last Updated No previous hospitalizations 05/10/2023 Last Documented On 3 10:52AM ; [facility] Recent eye exam showed no apparent retin opathy present 05/10/2023 Last Documented On 3 10:52AM ; [facility] Not planning to have a baby in the next 12 months 04/18/2023 Last Documented On 3 10:11PM ; [facility] No previous suicide attempt 07/24/2022 Last Documented On 3 12:17AM ; [facility] A recent examination by an ophthalmologi st 07/21/2022 07/23/2022 Last Documented On 3 2:32PM ; [facility] History of diabetes mellitus 07/23/2022 Last Documented On 3 2:32PM ; [facility] History of systemic hypertension 023 Last Documented On 3 2:32PM ; [facility] Recent immunization for flu 07/23/2022 Last Documented On 3 2:32PM ; [facility] Work Phone: History of Present illness Narrative History of Present Illness not supported for this document type No History of Present Illness [facility]ed[facility] Work Phone: Instructions* Name Dates Details Instructions not documented [facility] Work Phone: Patient problem outcome Narrative Includes: Evaluations & Outcomes for active Goals No Outcomes [facility]ed[facility] Work Phone: Progress note* Progress note Date Encounter Last Documented by 08/02/2022 Medical Established Patient Last documented on 08/02/2022; 1:35 PM, Latia MAYORGA; [facility] Active Problems & Conditions - E11.610 - [...] results, Pt needs tresiba [facility] just for today. Referred Here No [...] has been provided. The patient lives a halfway, where food is cooking. Denies any craving [...] previous hospitalizations. A recent examination by an well head pumper 07/21/2022. Immunization History: Recent immunization for flu. [...] BP-Sitting R138/82 mmHg BP Cuff SizeLarge Pulse Rate-Cuzpetn73 bpm Pulse RhythmRegular Respiration Rate18 per min Temp-Rqbsppmf11.5 F Adzzon97 in Krhzwt513 lbs Body Mass Index36.7 kg/m2 Body Surface Area2 m2 Oxygen Pcrekaiphz68 % O2 DeviceNone (Room Air) IgK234 % General Appearance: - Awake. - Alert. [...] and diastolic 80-89 mmHg diastolic 80-89 mmHg. [facility] note Date Encounter Last Documented by 06/18/2023 Chart Update Last documented on 06/18/2023; 8:58 AM, Latia MAYORGA; [facility] Active Problems & Conditions - 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 - I10 - Essential Hypertension - F41.1 - Generalized Anxiety Disorder - Hyperlipidemia - F33.1 - Major Depression Recurrent Moderate - F17.200 - Nicotine Dependence Uncomplicated - F51.01 - Primary Insomnia Chief Complaint Phone Call - Chief Concern: 06.18.23 @ 0830am, INDUSTRIAL WASTE INSPECTOR called Carolyn from [facility] stating the patient has not been getting out of bed, expresses concerns of patient developing blood clot. The patient did have an incident where she could not get out of the bedside commode. 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 INDUSTRIAL WASTE INSPECTOR once again spoke with Carolyn, who agreed to have physical therapy evaluate patient to determine whether she goes to shelter or stay in speech pathologist assistant living. . Current Medication - 1st Tier Unifine Pentips [...] a week, 30 days, 4 refills - Voltaren 1% External Gel Apply 2 gm to groin twice a day, 30 days, 2 refills Past Medical/Surgical History Other: No previous suicide attempt Reported: Medical: No previous hospitalizations. A recent examination by an well head pumper 07/21/2022 results in eye. Recent eye exam showed no apparent retinopathy present. Immunization History: Recent immunization for flu. : Not planning to have a baby in the next 12 months. Diagnoses: Systemic hypertension. Diabetes mellitus Surgical: - Cholecystectomy - Hernia repair - Hysterectomy - Tubal ligation - Back surgery Allergies - Nunn Reaction: Hives / Urticaria, Shock - Mellaril - PENICILLINS Reaction: Hives / Urticaria - Topamax Family History Maternal: Type 1 diabetes mellitus [facility] N[facility]ative - Reported Review of Systems not supported for this document type No Review of Systems [facility]edA[facility] Work Phone: Summary Purpose Family History Grandmother Name Dates Details Family history of cerebrovas cular accident (CVA)(V17.1, Z82.3) Status:Active Father Name Dates Details Family history of lung cance r(V16.1, Z80.1) Status:Active Description Last Updated Maternal history of type 1 diabetes pilar itus 07/23/2022 Last Documented On 3 2:32PM ; [facility] Description Last Updated Maternal history of type 1 diabetes pilar itus 07/23/2022 Last Documented On 3 2:32PM ; [facility] Description Last Updated Maternal history of type 1 diabetes pilar itus 07/23/2022 Last Documented On 3 2:32PM ; [facility] Description Last Updated Maternal history of type 1 diabetes pilar itus 07/23/2022 Last Documented On 3 2:32PM ; [facility] Description Last Updated Maternal history of type 1 diabetes pilar itus 07/23/2022 Last Documented On 3 2:32PM ; [facility] Description Last Updated Maternal history of type 1 diabetes pilar itus 07/23/2022 Last Documented On 3 2:32PM ; [facility] Description Last Updated Maternal history of type 1 diabetes pilar itus 07/23/2022 Last Documented On 3 2:32PM ; [facility] Description Last Updated Maternal history of type 1 diabetes pilar itus 07/23/2022 Last Documented On 3 2:32PM ; [facility] Description Last Updated Maternal history of type 1 diabetes pilar itus 07/23/2022 Last Documented On 3 2:32PM ; [facility] Description Last Updated Maternal history of type 1 diabetes pilar itus 07/23/2022 Last Documented On 3 2:32PM ; [facility] Description Last Updated Maternal history of type 1 diabetes pilar itus 07/23/2022 Last Documented On 3 2:32PM ; [facility] Description Last Updated Maternal history of type 1 diabetes pilar itus 07/23/2022 Last Documented On 3 2:32PM ; [facility] Advance Directives No Advanced Directives Records FoundNo [...] Referral Specialty Diagnoses / Procedures Referred By Contac t Referred To Contact Diagnoses Preop examination Type 2 diabetes mellitus without complication, without long-term current use of insulin ([facility]) Hypertension, unspecified type Procedures ECG 12 lead [address] [place], [address] [place] [address] Referral ID Status Reason Start Date Expiration Date V isits Requested Visits Authorized [id number] Pending Review 05/08/2023 05/07/2024 1 1 Additional Source Comments INFORMATION SOURCE (unrecogn ized section and content) DATE CREATED AUTHOR 03/14/2018 [facility] DATE CREATED AUTHOR AUTHOR'S ORGANIZ ATION 05/28/2018 [facility] [place] DATE CREATED AUTHOR AUTHOR'S ORGANIZ ATION 02/05/2019 [facility] DATE CREATED AUTHOR AUTHOR'S ORGANIZ ATION 02/28/2019 [facility] DATE CREATED AUTHOR AUTHOR'S ORGANIZ ATION 03/25/2019 [facility] DATE CREATED AUTHOR AUTHOR'S ORGANIZ ATION 01/16/2022 [facility] DATE CREATED AUTHOR AUTHOR'S ORGANIZ ATION 07/13/2022 [facility] DATE CREATED AUTHOR AUTHOR'S ORGANIZ ATION 09/30/2022 [facility] DATE CREATED AUTHOR AUTHOR'S ORGANIZ ATION 11/11/2022 [facility] DATE CREATED AUTHOR AUTHOR'S ORGANIZ ATION 05/26/2023 [facility] DATE CREATED AUTHOR AUTHOR'S ORGANIZ ATION 06/15/2023 [facility] dical Specialists EPIC Care Teams (unrecognized sec tion and content) Team Status: Inactive Member Role Status Dates Constantine Hernandez MD Attending Provider Active Youth Development Specialist Relationship Specialty Start Date End Date Geraldo Prado MD [address] [place] [address] PCP - General Family Medicine 10/29/19 05/09/23 [...] encounter Includes: Active GoalsNo Active Goals Recorded Includes: [...] or prosecute any alcohol or drug abuse patient.[facility] FOR RECORDS PERTAINING TO PATIENTS WHO ARE [...] BE BASED ON THE PRIMARY CLINICAL RECORDS. [facility]. provides no warranty or guarantee of the accuracy or completeness of information in this document.
== END 2023-06-18 10:12 | disposition home or self-care (01) ==
LOC: CT 10:11
PROVIDERS: Visit Provider Nurse Practitioner Family
DX: M51.36 Other intervertebral disc degeneration, lumbar region (principal); S32.032A Unstable burst fracture of third lumbar vertebra, initial encounter for closed fracture
CPT/HCPCS: 72131

== ENCOUNTER 2023-06-19 02:10 | Outpatient (REF) | payer MEDICARE, MEDICAID, SELFPAY ==
--- OUTSIDE RECORDS SUMMARY | 2023-06-19 02:16 | XMS_ITS | CCD ---
Author Name Unknown Address [address] [place] [address] Organization [facility] Care Team Providers Care Paper Final Inspector Name Role Phone Morgan Barcenas Unavailable Unavailable PROVIDER, UNKNOWN Unavailable Unavailable Ahchandler Ilia Unavailable Unavailable Morgan Barcenas Unavailable Unavailable PROVIDER, UNKNOWN Unavailable Unavailable Ahmed, Ilia Unavailable Unavailable STIVEN ANDINO Unavailable Unavailable Unknown, Referring Provider Unavailable Unav ailable Leah Brock Unavailable Unavailable Ahchandler, Ilia Unavailable Unavailable MD Constantine Hernandez Attending Provider Isidra Hernandez Unavailable Sparks PIPELINE DISPATCH OPERATOR, Latia Attending Unavailable Sparks PIPELINE DISPATCH OPERATOR, Latia Primary Care Provider Unavailable Primary Care Provider Unavailabl e Sparks PIPELINE DISPATCH OPERATOR, Latia Primary Care Provider MISC, DR BECERRA [...] Unavailmiranda Prado MD, Geraldo Primary Care Provider [phone] HARDY JAY Admitting Unavailable HARDY JAY Attending [...] Anti-Epileptic Agents (1 source) topiramate Drug All[facility] Work Phone: Penicillins (antibiotic) (1 source) Penicillins; Translations: [Penicillins] Drug Allergy [facility] DO Work Phone: (2 sources) Haloperidol; Translations: [Haldol] Drug Allergy 0 Unknown [facility] (1 source) Penicillin V Drug Allergy Unknown [employer] Other (2 sources) Thioridazine; Translations: [THIORIDAZINE] Drug Allergy 3 [facility] (3 sources) topiramate; Translations: [TOPIRAMATE] Drug Allergy 8 Unknown [employer] Other (3 sources) Tai Flavor; Translations: [TAI FLAVOR] Drug allergy 8 Anaphylaxis, Swelling [facility] (7 sources) tai allergenic extract Drug Allergy 0 Hives / Urticaria, Shock [facility] (1 source) Penicillin Drug Allergy 0 [facility] (7 sources) topiramate Drug Allergy 0 [facility] (8 sources) Penicillins; Translations: [PENICILLINS] Allergy to substance 8 Hives / Urticaria, Hives, Itching [facility] (6 sources) Thioridazine Drug Allergy 3 [facility] (2 sources) Temazepam; Translations: [TEMAZEPAM] Drug Allergy 8 Other (See Comments[facility] ([facility]) Haloperidol; Translations: [HALOPERIDOL] Drug Allergy 3 [facility] Medications Current Medications Medication Drug Class(es) Dates Sig (Normalized) Sig (Original) 1st Tier Unifine Pentips Plus 33G X 4 MM Miscellaneous (8 sources) Start: 08-28-2022 1st Tier Unifine Pentips Plus 33G X 4 MM Miscellaneous 08/28/2022 Provider: Latia Sparks [facility] Aircast Sport Ankle Brace/Left - (1 source) Start: 09-21-2021 Aircast Sport Ankle Brace/Left - as directed September, Active amitriptyline hydrochloride 25 mg oral tablet (20 sources) Tricyclic Antidepressant Start: 02-06-2023 Amitriptyline HCl 25 MG Oral Tablet 02/06/2023 Provider: Latia Saprks PIPELINE DISPATCH OPERATOR Start: 08-09-2022 End: 11-15-2022 Amitriptyline HCl 25 MG Oral Tablet 11/08/2022 - 11/15/2022 Provider: Latia Sparks PIPELINE DISPATCH OPERATOR Start: 07-06-2022 End: 08-02-2022 Amitriptyline HCl 25 [...] Tablet 02/06/2023 - 11/15/2022 Provider: Latia Sparks PIPELINE DISPATCH OPERATOR Start: 02-06-2023 End: 11-15-2022 amLODIPine Besylate 10 MG Or al Tablet 02/06/2023 - 11/15/2022 Provider: Latia GREENP Start: 02-06-2023 End: 11-15-2022 amLODIPine Besylate 10 MG Or al Tablet 02/06/2023 - 11/15/2022 Provider: Latia Sparks PIPELINE DISPATCH OPERATOR Start: 02-06-2023 End: 11-15-2022 amLODIPine Besylate 10 [...] psule 08/22/2022 - 08/02/2022 Provider: Latia Sparks PIPELINE DISPATCH OPERATOR Start: 08-22-2022 End: 08-02-2022 FLUoxetine HCl 10 [...] 600 MG Oral Tablet 02/06/2023 Provider: Latia MAYOGRA Start: 12-18-2022 End: 11-15-2022 Gabapentin 600 MG [...] t 12/18/2022 - 11/15/2022 Provider: Latia Hoffmanim PIPELINE DISPATCH OPERATOR Start: 12-18-2022 End: 11-15-2022 Gabapentin 600 MG Oral Table t 12/18/2022 - 11/15/2022 Provider: Latia Hoffmanim PIPELINE DISPATCH OPERATOR Start: 12-18-2022 End: 11-15-2022 Gabapentin 600 MG Oral Table t 12/18/2022 - 11/15/2022 Provider: Latia Sparks PIPELINE DISPATCH OPERATOR Start: 08-22-2022 End: 11-15-2022 Gabapentin 600 MG Oral Table t 08/22/2022 - 11/15/2022 Provider: Latia Sparks PIPELINE DISPATCH OPERATOR Start: 07-03-2022 End: 08-02-2022 Gabapentin 600 MG Oral Table t 07/23/2022 - 08/02/2022 Provider: Latia Sparks PIPELINE DISPATCH OPERATOR Gabapentin Activ e hydrALAZINE hydrochloride 25 mg oral tablet (20 sources) Arteriolar Vasodilator Start: 02-06-2023 hydrALAZINE HCl 25 M G Oral Tablet 02/06/2023 Provider: Latia Hoffmanim PIPELINE DISPATCH OPERATOR Start: 09-09-2022 End: 11-15-2022 hydrALAZINE HCl 25 MG Oral T ablet 11/08/2022 - 11/15/2022 Provider: Latia Sparks PIPELINE DISPATCH OPERATOR Start: 09-09-2022 End: 08-02-2022 hydrALAZINE HCl 25 [...] MG Oral Tablet 08/22/2022 Provider: Latia Sparks [facility] Start: 07-20-2022 End: 08-02-2022 traZODone HCl [...] Refills: 0 Active Dextromethorphan (1 source) Uncompetitive Y-nfkjjy-W-aspartate Receptor Antagonist, Sigma-1 Agonist DexAlone CAPS Refills: [...] unspecified] Onset: 01-08-2018 Other aftercare (1 source) oil heaterman (current) use of insulin; Translations: [LINOLEUM LAYER CURRENT USE OF INSULIN] Onset: 09-27-2022 Episodic [...] Facility Surgical Pathologyon 023 Surgical Pathology Normal [facility] Comment on above: Result Comment: [facility] [address] [place] [address] Surgical Pathology Consultation Patient Name:TUNDE JACK:1950 (Age: 72)Gender:FTaken:05/16/2023Reported:05/22/2023hysician(s):Hardy Jay DO ([phone])Copy To: Rec. #:[id number]: #[id number] Final Pathologic Diagnosis L2 vertebra, biopsy: Viable bone with fibrosis and new bone formation. Negative for granuloma and neoplasia. Report Electronically Signed Out gr/05/22/2023Nikolai Fitch MD [facility] [address] [place] [address], License number: [id number]. Clinical History Compression fracture L2. Gross Description Received in formalin labeled MICKEY, L2 vertebra , are four cores of firm crowell bone each 0.3 cm diameter and ranging from 0.3 to 1.0 cm in length. The specimen is entirely submitted in a single cassette following decalcification. (1,ns,S23 03908, m1) PV pv/05/17/2023P Specimen(s) Received L2 vertebra Fee Codes(s): 1; 27400, 20030 BASIC METABOLIC PANLon 05-10 Anion gap [Moles/Vol] 7 mmol/L Normal 5-15 [facility] Comment on above: Performed By: #### B MP #### [facility] ([id number]) [address] [place] [address] Calcium [Mass/Vol] 10.1 mg/dL Normal 8.5-10.5 [facility] Comment on above: Performed By: #### B MP #### [facility] ([id number]) [address] [place] [address] Chloride [Moles/Vol] 107 mmol/L Normal 98-109 [facility] Comment on above: Performed By: #### B MP #### [facility] ([id number]) [address] [place] [address] CO2 [Moles/Vol] 26 mmol/L Normal 22-32 [facility] Comment on above: Performed By: #### B MP #### [facility] ([id number]) [address] [place] [address] Creatinine [Mass/Vol] 0.65 mg/dL Normal 0.40-1.00 [facility] Comment on above: Result Comment: METH OD TRACEABLE TO IDMS STANDARD Performed By: #### B MP #### [facility] ([id number]) [address] [facility] [address] [place] [address] eGFR (CKD-EPI) NON-RACE DEPENDENT >90 Normal >59 [facility] Comment on above: Result Comment: Reported eGFR is based on the CKD-EPI 2020 equation that does not use a race coefficient. Performed By: #### B MP #### [facility] ([id number]) [address] [place] [address] Glucose [Mass/Vol] 83 mg/dL Normal 65-99 [facility] Comment on above: Performed By: #### B MP #### [facility] ([id number]) [address] [place] [address] Potassium [Moles/Vol] 4.1 mmol/L Normal 3.5-5.0 [facility] Comment on above: Performed By: #### B MP #### [facility] ([id number]) [address] [place] [address] Sodium [Moles/Vol] 140 mmol/L Normal 134-146 [facility] Comment on above: Performed By: #### B MP #### [facility] ([id number]) [address] [place] [address] Urea nitrogen [Mass/Vol] 19 mg/dL Normal 5-27 [facility] Comment on above: Performed By: #### B MP #### [facility] ([id number]) [address] [place] [address] Basic Metabolic Panelon 12-2 Anion gap [Moles/Vol] 7 mmol/L 5 - 15 mmol/L [facility] Calcium [Mass/Vol] 10.1 mg/dL 8.5 - 10.5 mg/dL [facility] Chloride [Moles/Vol] 107 mmol/L 98 - 109 mmol/L [facility] CO2 [Moles/Vol] 26 mmol/L 22 - 32 mmol/L [facility] Creatinine [Mass/Vol] 0.65 mg/dL 0.40 - 1.00 mg/dL [facility] Comment on above: METHOD TRACEABLE TO IDMS STANDARD eGFR (CKD-EPI)non-race dependent - PINF [facility] Comment on above: Reported eGFR is based on the CKD-EPI 2020 equation that does not use a race coefficient. Glucose [Mass/Vol] 83 mg/dL 65 - 99 mg/dL [facility] Potassium [Moles/Vol] 4.1 mmol/L 3.5 - 5.0 mmol/L [facility] Sodium [Moles/Vol] 140 mmol/L 134 - 146 mmol/L [facility] Urea nitrogen [Mass/Vol] 19 mg/dL 5 - 27 mg/dL [facility] ECG 12 leadon 05-10-2023 TRACEMASTERVUE [facility] Comp Metabolic Profon 2022 Albumin [Mass/Vol] 4.3 g/dL Normal 3.5-5.2 [facility] Comment on above: Performed By: #### L IPR, CP #### [facility] [address] [place] [phone] Laundry Aide: Genaro Angel MD Albumin/Glob Ratio 1.5 Normal 1.0-2.5 [facility] Comment on above: Performed By: #### L IPR, CP #### [facility] [address] [place] [phone] Laundry Aide: Genaro Angel MD Alkaline Phos 116 U/L High 35-104 [facility] Comment on above: Performed By: #### L IPR, CP #### [facility] [address] [place] [phone] Laundry Aide: Genaro Angel MD ALT [Catalytic activity/Vol] 25 U/L Normal 5-33 [facility] Comment on above: Performed By: #### L IPR, CP #### [facility] [address] [place] [phone] Laundry Aide: Genaro Angel MD Anion gap [Moles/Vol] 15 mmol/L Normal 9-17 [facility] Comment on above: Performed By: #### L IPR, CP #### [facility] [address] [place] [phone] Laundry Aide: Genaro Angel MD AST [Catalytic activity/Vol] 32 U/L High <32 [facility] Comment on above: Performed By: #### L IPR, CP #### [facility] [address] [place] [phone] Laundry Aide: Genaro Angel MD Bilirubin [Mass/Vol] 0.2 mg/dL Low 0.3-1.2 [facility] Comment on above: Performed By: #### L IPR, CP #### [facility] [address] [place] [phone] Laundry Aide: Genaro Angel MD Calcium [Mass/Vol] 10.7 mg/dL High 8.6-10.4 [facility] Comment on above: Performed By: #### L IPR, CP #### [facility] [address] [place] [phone] Laundry Aide: Genaro Angel MD Chloride [Moles/Vol] 102 mmol/L Normal 98-107 [facility] Comment on above: Performed By: #### L IPR, CP #### [facility] [address] [place] [phone] Laundry Aide: Genaro Angel MD CO2 [Moles/Vol] 23 mmol/L Normal 20-31 [facility] Comment on above: Performed By: #### L IPR, CP #### [facility] [address] [place] [phone] Laundry Aide: Genaro Angel MD Creatinine [Mass/Vol] 0.93 mg/dL High 0.50-0.90 [facility] Comment on above: Performed By: #### L IPR, CP #### [facility] [address] [place] [phone] Laundry Aide: Genaro Angel MD GFR/1.73 sq M.predicted among non-blacks MDRD (S/P/Bld) [Vol rate/Area] mL/min/{1.73_m2} Normal >60 [facility] Comment on above: Result Comment: [...] Performed By: #### L IPR, CP #### [facility] [address] [address] Laundry Aide: Genaro Angel MD Glucose [Mass/Vol] 138 mg/dL High 70-99 [facility] Comment on above: Performed By: #### L IPR, CP #### [facility] [address] [place] [phone] Laundry Aide: Genaro Angel MD Potassium [Moles/Vol] 5.3 mmol/L Normal 3.7-5.3 [facility] Comment on above: Performed By: #### L IPR, CP #### [facility] [address] [place] [phone] Laundry Aide: Genaro Angel MD Protein [Mass/Vol] 7.1 g/dL Normal 6.4-8.3 [facility] Comment on above: Performed By: #### L IPR, CP #### [facility] [address] [place] [phone] Laundry Aide: Genaro Angel MD Sodium [Moles/Vol] 140 mmol/L Normal 135-144 [facility] Comment on above: Performed By: #### L IPR, CP #### [facility] [address] [place] [phone] Laundry Aide: Genaro Angel MD Urea nitrogen [Mass/Vol] 26 mg/dL High 8-23 [facility] Comment on above: Performed By: #### L IPR, CP #### [facility] [address] [place] [phone] Laundry Aide: Genaro Angel MD Lipid Profileon 11-10-2022 Cholesterol [Mass/Vol] 152 mg/dL Normal <200 [facility] Comment on above: Result Comment: Cholesterol Guidelines: <200 Desirable 200-240 Borderline >240 Undesirable Performed By: #### L IPR, CP #### [facility] [address] [address] Laundry Aide: Genaro Angel MD Cholesterol in HDL [Mass/Vol] 30 mg/dL Low >40 [facility] Comment on above: Result Comment: HDL Guidelines: <40 Undesirable 40-59 Borderline >59 Desirable Performed By: #### L IPR, CP #### [facility] [address] [place] [phone] Laundry Aide: Genaro Angel MD Cholesterol in LDL [Mass/Vol] 44 mg/dL Normal 0-130 [facility] Comment on above: Result Comment: LDL Guidelines: <100 Desirable 100-129 Near to/above Desirable 130-159 Borderline >159 Undesirable Direct (measured) LDL and calculated LDL are not interchangeable tests. Performed By: #### L IPR, CP #### [facility] [address] [place] [phone] Laundry Aide: Genaro Angel MD Cholesterol.total /Cholesterol in HDL [Mass ratio] 5.1 {ratio} High <5 [facility] Comment on above: Performed By: #### L IPR, CP #### [facility] [address] [place] [phone] Laundry Aide: Genaro Angel MD Triglyceride [Mass/Vol] 390 mg/dL High <150 [facility] Comment on above: Result Comment: Triglyceride Guidelines: <150 Desirable 150-199 Borderline 200-499 High >499 Very high Based on AHA Guidelines for fasting triglyceride, February 2012. Performed By: #### L IPR, CP #### [employer] [address] [place] [phone] Laundry Aide: Genaro Angel MD Laboratory - Chemistry and C hemistry - challengeon 11-09-2022 Albumin [Mass/Vol] 4.3 g/dL (3.5-5.2 ) [facility] Comment on above: Note: Responsible Ob food server: [employer] (3002) ALT [Catalytic activity/Vol] 25 U/L (5-33 ) [facility] Comment on above: Note: Responsible Ob food server: [employer] (3002) Anion gap [Moles/Vol] 15 mmol/L (9-17 ) [facility] Comment on above: Note: Responsible Ob food server: [employer] (3002) AST [Catalytic activity/Vol] 32 U/L High (<32 ) [facility] Comment on above: Note: Responsible Ob food server: [employer] (3002) Bilirubin [Mass/Vol] 0.2 mg/dL Low (0.3-1.2 ) [facility] Comment on above: Note: Responsible Ob food server: [employer] (3002) Calcium [Mass/Vol] 10.7 mg/dL High (8.6-10.4 ) [facility] Comment on above: Note: Responsible Ob food server: [employer] (3002) Chloride [Moles/Vol] 102 mmol/L (98-107 ) [facility] Comment on above: Note: Responsible Ob food server: [employer] (3002) Cholesterol [Mass/Vol] 152 mg/dL (<200 ) [facility] Comment on above: Note: Cholesterol Gu idelines:<200 [id number] Borderline>240 UndesirableResponsible Observer: [employer] (3002) Cholesterol.total /Cholesterol in HDL [Mass ratio] 5.1 {ratio} High (<5 ) [facility] Comment on above: Note: Responsible Ob food server: [employer] (3002) CO2 [Moles/Vol] 23 mmol/L (20-31 ) [facility] Comment on above: Note: Responsible Ob food server: [employer]OFILE (3002) Creatinine [Mass/Vol] 0.93 mg/dL High (0.50-0.90 ) [facility] Comment on above: Note: Responsible Ob food server: [employer] (3002) GFR/1.73 sq M.predicted among non-blacks MDRD (S/P/Bld) [Vol rate/Area] mL/min/{1.73_m2} (>60 ) [facility] Comment on above: Note: These results [...] Glucose [Mass/Vol] 138 mg/dL High (70-99 ) [facility] Comment on above: Note: Responsible Ob food server: [employer] (3002) Magnesium [Mass/Vol] 30 mg/dL Low (>40 ) [facility] Comment on above: Note: HDL Guidelines :<40 [id number] Borderline>59 DesirableResponsible Observer: [employer] AUTOFILE (3002) Magnesium [Mass/Vol] 44 mg/dL (0-130 ) [facility] Comment on above: Note: LDL Guidelines :<100 Acxtjagkv698-094 Near to/above Xbqjrlohd312-518 Borderline>159 UndesirableDirect (measured) LDL and calculated LDL are not interchangeable tests.Responsible Observer: [employer] (3002) Potassium [Moles/Vol] 5.3 mmol/L (3.7-5.3 ) [facility] Comment on above: Note: Responsible Ob food server: [employer] (3002) Protein [Mass/Vol] 7.1 g/dL (6.4-8.3 ) [facility] Comment on above: Note: Responsible Ob food server: [employer]FILE (3002) Sodium [Moles/Vol] 140 mmol/L (135-144 ) [facility] Comment on above: Note: Responsible Ob food server: [employer] (3002) Triglyceride [Mass/Vol] 390 mg/dL High (<150 ) [facility] Comment on above: Note: Triglyceride G uidelines:<150 [id number] Ipyesfxwtr419-658 High>499 Very highBased on AHA Guidelines for fasting triglyceride, February 2012.Responsible Observer: [employer] (3002) Urea nitrogen [Mass/Vol] 26 mg/dL High (8-23 ) [facility] Comment on above: Note: Responsible Ob food server: [employer]OFILE (3002) No Panel Informationon 11-09 Albumin/Glob Ratio 1.5 (1.0-2.5 ) [facility] Comment on above: Note: Responsible Ob food server: [employer]FILE (3002) Alkaline Phos 116 U/L High (35-104 ) [facility] Comment on above: Note: Responsible Ob food server: [employer] (3002) Reported Physicians See Note [facility] Comment on above: Note: Reported Physi cians:Ordering: Latia Sparks OMARAttending: Hiren SparksaReferring: Latia Sparks CREATININE URINEon 3 URINE CREAT 31.31 mg/dL Normal 20.00-300.0 0 [facility] Comment on above: Performed By: #### C REAU #### [facility] [address] [place] [address] Dr. Shashi Jimenez MICROALBUMIN, RAND URon 09-17 mALB 14.3 mg/L Normal <=30.0 [facility] Comment on above: Performed By: #### M ALBR #### [facility] [address] [address] [address] Shashi Jimenez PROF 14(COMP METB)on 023 Albumin [Mass/Vol] 3.7 g/dL Normal 3.4-5.0 [facility] Comment on above: Performed By: #### C MP #### [facility] [address] [address] [address] Shashi Jimenez Albumin/Globulin [Mass ratio] 0.9 {ratio} Normal [facility] Comment on above: Performed By: #### C MP #### [facility] [address] [address] [address] Shashi Jimenez ALP [Catalytic activity/Vol] 109 U/L Normal 46-116 [facility] Comment on above: Performed By: #### C MP #### [facility] [address] [address] [address] Shashi Jimenez ALT [Catalytic activity/Vol] 39 U/L Normal 14-59 [facility] Comment on above: Performed By: #### C MP #### [facility] [address] [place] [address] Dr. Shashi Jimenez Anion gap [Moles/Vol] 12.0 mmol/L Normal [facility] Comment on above: Performed By: #### C MP #### [facility] [address] [address] [address] Shashi Jimenez AST [Catalytic activity/Vol] 35 U/L Normal 15-37 [facility] Comment on above: Performed By: #### C MP #### [facility] [address] [place] [address] Dr. Shashi Jimenez Bilirubin [Mass/Vol] 0.3 mg/dL Normal 0.2-1.0 [facility] Comment on above: Performed By: #### C MP #### [facility] [address] [place] [address] Dr. Shashi Jimenez Calcium [Mass/Vol] 10.5 mg/dL Critically high 8.5-10.1 [facility] Comment on above: Performed By: #### C MP #### [facility] [address] [place] [address] Dr. Shashi Jimenez Chloride [Moles/Vol] 103 mmol/L Normal 98-107 [facility] Comment on above: Performed By: #### C MP #### [facility] [address] [place] [address] Dr. Shashi Jimenez CO2 [Moles/Vol] 29.1 mmol/L Normal 21.0-32.0 [facility] Comment on above: Performed By: #### C MP #### [facility] [address] [place] [address] Dr. Shashi Jimenez Creatinine [Mass/Vol] 1.04 mg/dL Critically high 0.55-1.02 [facility] Comment on above: Performed By: #### C MP #### [facility] [address] [place] [address] Dr. Shashi Jimenez EGFR-AF PAKISTANI >60 Normal >=60 [facility] Comment on above: Performed By: #### C MP #### [facility] [address] [address] [address] Shashi Jimenez EGFR-NON AF PAKISTANI 52 mL/min/1.73m2 Critically low >=60 [facility] Comment on above: Performed By: #### C MP #### [facility] [address] [address] [address] Shashi Jimenez Globulin (S) [Mass/Vol] 4.2 g/dL Normal [facility] Comment on above: Performed By: #### C MP #### [facility] [address] [address] [address] Shashi Jimenez Glucose [Mass/Vol] 258 mg/dL Critically high 74-106 [facility] Comment on above: Performed By: #### C MP #### [facility] [address] [address] [address] Shashi Jimenez Potassium [Moles/Vol] 4.1 mmol/L Normal 3.5-5.1 [facility] Comment on above: Performed By: #### C MP #### [facility] [address] [address] [address] Shashi Jimenez Protein [Mass/Vol] 7.9 g/dL Normal 6.4-8.2 [facility] Comment on above: Performed By: #### C MP #### [facility] [address] [address] [address] Shashi Jimenez Sodium [Moles/Vol] 140 mmol/L Normal 136-145 [facility] Comment on above: Performed By: #### C MP #### [facility] [address] [address] [address] Shashi Jimenez Urea nitrogen [Mass/Vol] 23.0 mg/dL Critically high 7.0-18.0 [facility] Comment on above: Performed By: #### C MP #### [facility] [address] [address] [address] Shashi Jimenez Urea nitrogen/Creatini ne [Mass ratio] 22.1 mg/mg Normal [facility] Comment on above: Performed By: #### C MP #### [facility] [address] [address] [address] Shashi Jimenez POINT OF CARE GLUCOSEon 05-0 Glucose [Mass/Vol] 97 mg/dL Normal 74-106 [facility] Comment on above: Performed By: #### P OCGLUC #### [facility] [address] [address] [address] Shashi Jimenez POINT OF CARE GLUCOSEon 03-2 Glucose [Mass/Vol] 160 mg/dL Critically high 74-106 [facility] Comment on above: Performed By: #### P OCGLUC #### [facility] [address] LSPINE WO CONon [...] ERIN BERMAN Date: 2022-07-27 16:56 Normal [facility] CBCon 07-24-2022 Erythrocyte distribution width (RBC) [Ratio] 14.1 % Normal 11.8-14.4 [facility] Comment on above: Performed By: #### I PF, TSHX, VD25, CBC, CP, LIPR #### [facility] ticketea [address] [place] [phone] Laundry Aide: Genaro Angel MD Hematocrit (Bld) [Volume fraction] 43.9 % Normal 36.3-47.1 [facility] Comment on above: Performed By: #### I PF, TSHX, VD25, CBC, CP, LIPR #### [facility] [employer]ea [address] [place] [phone] Laundry Aide: Genaro Angel MD Hemoglobin (Bld) [Mass/Vol] 14.3 g/dL Normal 11.9-15.1 [facility] Comment on above: Performed By: #### I PF, TSHX, VD25, CBC, CP, LIPR #### [facility] [employer]ea [address] [place] [phone] Laundry Aide: Genaro Angel MD MCH (RBC) [Entitic mass] 30.5 pg Normal 25.2-33.5 [facility] Comment on above: Performed By: #### I PF, TSHX, VD25, CBC, CP, LIPR #### [facility] [employer]ea [address] [place] [phone] Laundry Aide: Genaro Angel MD MCHC (RBC) [Mass/Vol] 32.6 g/dL Normal 28.4-34.8 [facility] Comment on above: Performed By: #### I PF, TSHX, VD25, CBC, CP, LIPR #### [facility] [employer]ea [address] [place] [phone] Laundry Aide: Genaro Angel MD MCV (RBC) [Entitic vol] 93.6 fL Normal 82.6-102.9 [facility] Comment on above: Performed By: #### I PF, TSHX, VD25, CBC, CP, LIPR #### [address] [address] Laundry Aide: Genaro Angel MD NRBC Automated 0.0 per 100 WBC Normal 0.0 [facility] Comment on above: Performed By: #### I PF, TSHX, VD25, CBC, CP, LIPR #### [address] [address] Laundry Aide: Genaro Angel MD Platelet Count See Reflexed IPF Result Normal 138-453 [facility] Comment on above: Performed By: #### I PF, TSHX, VD25, CBC, CP, LIPR #### [address] [address] Laundry Aide: Genaro Angel MD RBC (Bld) [#/Vol] 4.69 10*6/uL Normal 3.95-5.11 [facility] Comment on above: Performed By: #### I PF, TSHX, VD25, CBC, CP, LIPR #### [address] [address] Laundry Aide: Genaro Angel MD WBC (Bld) [#/Vol] 8.4 10*3/uL Normal 3.5-11.3 [facility] Comment on above: Performed By: #### I PF, TSHX, VD25, CBC, CP, LIPR #### [address] [address] Laundry Aide: Genaro Angel MD Hematocrit (Bld) [Volume fraction] 43.9 % 36.3 - 47.1 % [facility] Hemoglobin (Bld) [Mass/Vol] 14.3 g/dL 11.9 - 15.1 g/dL [facility] MCH (RBC) [Entitic mass] 30.5 pg 25.2 - 33.5 pg [facility] MCHC (RBC) [Mass/Vol] 32.6 g/dL 28.4 - 34.8 g/dL [facility] MCV (RBC) [Entitic vol] 93.6 fL 82.6 - 102.9 fL [facility] NRBC Automated 0.0 0.0 per 100 WBC [facility] Platelet distribution width (Bld) [Ratio] 14.1 % 11.8 - 14.4 % [facility] Platelets (Bld) [#/Vol] See Reflexed IPF Result [facility] RBC (Bld) [#/Vol] 4.69 10*6/uL 3.95 - 5.1 1 m/uL [facility] WBC (Bld) [#/Vol] 8.4 10*3/uL [facility] Comp Metabolic Profon 2022 Albumin [Mass/Vol] 4.3 g/dL Normal 3.5-5.2 [facility] Comment on above: Performed By: #### I PF, TSHX, VD25, CBC, CP, LIPR #### [employer] [address] [place] [phone] Laundry Aide: Genaro Angel MD Albumin/Glob Ratio 1.3 Normal 1.0-2.5 [facility] Comment on above: Performed By: #### I PF, TSHX, VD25, CBC, CP, LIPR #### [employer] [facility] [place], [place] [phone] Laundry Aide: Genaro Angel MD Alkaline Phos 116 U/L High 35-104 [facility] Comment on above: Performed By: #### I PF, TSHX, VD25, CBC, CP, LIPR #### [employer] [address] [place] [address] [phone] Laundry Aide: Genaro Angel MD ALT [Catalytic activity/Vol] 27 U/L Normal 5-33 [facility] Comment on above: Performed By: #### I PF, TSHX, VD25, CBC, CP, LIPR #### [address] [address] Laundry Aide: Genaro Angel MD Anion gap [Moles/Vol] 15 mmol/L Normal 9-17 [facility] Comment on above: Performed By: #### I PF, TSHX, VD25, CBC, CP, LIPR #### [address] [address] Laundry Aide: Genaro Angel MD AST [Catalytic activity/Vol] 30 U/L Normal <32 [facility] Comment on above: Performed By: #### I PF, TSHX, VD25, CBC, CP, LIPR #### [address] [address] Laundry Aide: Genaro Angel MD Bilirubin [Mass/Vol] 0.4 mg/dL Normal 0.3-1.2 [facility] Comment on above: Performed By: #### I PF, TSHX, VD25, CBC, CP, LIPR #### [address] [address] Laundry Aide: Genaro Angel MD Calcium [Mass/Vol] 10.9 mg/dL High 8.6-10.4 [facility] Comment on above: Performed By: #### I PF, TSHX, VD25, CBC, CP, LIPR #### [address] [address] Laundry Aide: Genaro Angel MD Chloride [Moles/Vol] 100 mmol/L Normal 98-107 [facility] Comment on above: Performed By: #### I PF, TSHX, VD25, CBC, CP, LIPR #### [address] [phone] Laundry Aide: Genaro Angel MD CO2 [Moles/Vol] 20 mmol/L Normal 20-31 [facility] Comment on above: Performed By: #### I PF, TSHX, VD25, CBC, CP, LIPR #### [address] [address] Laundry Aide: Genaro Angel MD Creatinine [Mass/Vol] 0.95 mg/dL High 0.50-0.90 [facility] Comment on above: Performed By: #### I PF, TSHX, VD25, CBC, CP, LIPR #### [address] [address] Laundry Aide: Genaro Angel MD GFR/1.73 sq M.predicted among non-blacks MDRD (S/P/Bld) [Vol rate/Area] mL/min/{1.73_m2} Normal >60 [facility] Comment on above: Result Comment: [...] TSHX, VD25, CBC, CP, LIPR #### [address] [address] Laundry Aide: Genaro Angel MD Glucose [Mass/Vol] 259 mg/dL High 70-99 [facility] Comment on above: Performed By: #### I PF, TSHX, VD25, CBC, CP, LIPR #### [address] [address] Laundry Aide: Genaro Angel MD Potassium [Moles/Vol] 4.7 mmol/L Normal 3.7-5.3 [facility] Comment on above: Performed By: #### I PF, TSHX, VD25, CBC, CP, LIPR #### [facility] [address] [place] [phone] Laundry Aide: Genaro Angel MD Protein [Mass/Vol] 7.6 g/dL Normal 6.4-8.3 [facility] Comment on above: Performed By: #### I PF, TSHX, VD25, CBC, CP, LIPR #### [facility] [address] [place] [address] Laundry Aide: Genaro Angle MD Sodium [Moles/Vol] 135 mmol/L Normal 135-144 [facility] Comment on above: Performed By: #### I PF, TSHX, VD25, CBC, CP, LIPR #### [facility] [employer]ea [address] [place] [phone] Laundry Aide: Genaro Angel MD Urea nitrogen [Mass/Vol] 33 mg/dL High 8-23 [facility] Comment on above: Performed By: #### I PF, TSHX, VD25, CBC, CP, LIPR #### [facility] [employer]ea [address] [place] [phone] Laundry Aide: Genaro Angel MD Comprehensive Metabolic Pane [facility] 07-24-2022 Albumin [Mass/Vol] 4.3 g/dL 3.5 - 5.2 g/dL [facility] Albumin/Globulin [Mass ratio] 1.3 {ratio} 1.0 - 2.5 [facility] ALP [Catalytic activity/Vol] 116 U/L High 35 - 104 U/L [facility] ALT [Catalytic activity/Vol] 27 U/L 5 - 33 U/L [facility] Anion gap [Moles/Vol] 15 mmol/L 9 - 17 mmol/L [facility] AST [Catalytic activity/Vol] 30 U/L NINF - 32 U/L [facility] Bilirubin [Mass/Vol] 0.4 mg/dL 0.3 - 1.2 mg/dL [facility] Calcium [Mass/Vol] 10.9 mg/dL High 8.6 - 10.4 mg/dL [facility] Chloride [Moles/Vol] 100 mmol/L 98 - 107 mmol/L [facility] CO2 [Moles/Vol] 20 mmol/L 20 - 31 mmol/L [facility] Creatinine [Mass/Vol] 0.95 mg/dL High 0.50 - 0.90 mg/dL [facility] GFR/1.73 sq M.predicted MDRD (S/P/Bld) [Vol rate/Area] - PINF [facility] Comment on above: These results are [...] [Moles/Vol] 4.7 mmol/L 3.7 - 5.3 mmol/L [facility] Protein [Mass/Vol] 7.6 g/dL 6.4 - 8.3 g/dL [facility] Sodium [Moles/Vol] 135 mmol/L 135 - 144 mmol/L [facility] Urea nitrogen [Mass/Vol] 33 mg/dL High 8 - 23 mg/dL [facility] Immature Platelet Fractionon 07-24-2022 Platelet, Fluorescence 158 [facility] Comment on above: ORDERED BY LAB Platelet, Immature Fraction 4.5 % 1.1 - 10.3 % [facility] Comment on above: ORDERED BY LAB [facility] Lipid Panelon 07-24-2022 Cholesterol [Mass/Vol] 153 mg/dL NINF - 200 mg/dL [facility] Comment on above: Cholesterol Guidelines: <200 Desirable 200-240 Borderline >240 Undesirable Cholesterol in HDL [Mass/Vol] 29 mg/dL Low 40 - PINF mg/dL [facility] Comment on above: HDL Guidelines: <40 Undesirable 40-59 Borderline >59 Desirable Cholesterol in LDL [Mass/Vol] 60 mg/dL 0 - 130 mg/dL [facility] Comment on above: LDL Guidelines: <100 Desirable 100-129 Near to/above Desirable 130-159 Borderline >159 Undesirable Direct (measured) LDL and calculated LDL are not interchangeable tests. Cholesterol.total /Cholesterol in HDL [Mass ratio] 5.3 {ratio} High NINF - 5 [facility] Triglyceride [Mass/Vol] 319 mg/dL High NINF - 150 mg/dL [facility] Comment on above: Triglyceride Guidelines: <150 Desirable 150-199 Borderline 200-499 High >499 Very high Based on AHA Guidelines for fasting triglyceride, February 2012. Lipid Profileon 07-24-2022 Cholesterol [Mass/Vol] 153 mg/dL Normal <200 [facility] Comment on above: Result Comment: Cholesterol Guidelines: <200 Desirable 200-240 Borderline >240 Undesirable Performed By: #### I PF, TSHX, VD25, CBC, CP, LIPR #### [employer] [address] [place] [address] [phone] Laundry Aide: Genaro Angel MD Cholesterol in HDL [Mass/Vol] 29 mg/dL Low >40 [facility] Comment on above: Result Comment: HDL Guidelines: <40 Undesirable 40-59 Borderline >59 Desirable Performed By: #### I PF, TSHX, VD25, CBC, CP, LIPR #### [employer] [address] [place] [address] [phone] Laundry Aide: Genaro Angel MD Cholesterol in LDL [Mass/Vol] 60 mg/dL Normal 0-130 [facility] Comment on above: Result Comment: LDL Guidelines: <100 Desirable 100-129 Near to/above Desirable 130-159 Borderline >159 Undesirable Direct (measured) LDL and calculated LDL are not interchangeable tests. Performed By: #### I PF, TSHX, VD25, CBC, CP, LIPR #### [employer] [address] [place] [address] [phone] Laundry Aide: Genaro Angel MD Cholesterol.total /Cholesterol in HDL [Mass ratio] 5.3 {ratio} High <5 [facility] Comment on above: Performed By: #### I PF, TSHX, VD25, CBC, CP, LIPR #### [address] [address] Laundry Aide: Genaro Angel MD Triglyceride [Mass/Vol] 319 mg/dL High <150 [facility] Comment on above: Result Comment: Triglyceride Guidelines: <150 Desirable 150-199 Borderline 200-499 High >499 Very high Based on AHA Guidelines for fasting triglyceride, February 2012. Performed By: #### I PF, TSHX, VD25, CBC, CP, LIPR #### [address] [phone] Laundry Aide: Genaro Angel MD No Panel Informationon 07-24 Interpretation and review of laboratory results Abnormal [facility] PLT, Immature Fract.on 07-24 Platelet, Fluoresc. 158 k/uL Normal 138-453 [facility] Comment on above: Result Comment: ORDE RED BY LAB Performed By: #### I PF, TSHX, VD25, CBC, CP, LIPR #### [address] [address] Laundry Aide: Genaro Angel MD PLT, Immature Fract. 4.5 % Normal 1.1-10.3 [facility] Comment on above: Result Comment: ORDE RED BY LAB Performed By: #### I PF, TSHX, VD25, CBC, CP, LIPR #### [address] [address] Laundry Aide: Genaro Angel MD TSH w/reflex to FT4on 2022 Thyroid Stim. Horm. 1.50 uIU/mL Normal 0.30-5.00 [facility] Comment on above: Performed By: #### I PF, TSHX, VD25, CBC, CP, LIPR #### [employer] [address] [place] [phone] Laundry Aide: Genaro Angel MD TSH with Reflexon 07-24-2022 TSH Qn 1.50 m[IU]/L [facility] Vitamin D 25 Hydroxyon 07-24 25-hydroxyvitamin D3 [Mass/Vol] 92.8 ng/mL 29.9 - PINF ng/mL [facility] Comment on above: Reference Range: Vitamin D status Range Deficiency <20 ng/mL Mild Deficiency 20-30 ng/mL Sufficiency 30-100 ng/mL Toxicity >100 ng/mL [facility] Vitamin D 25 OHon 07-24-2022 Vitamin D 25 OH 92.8 ng/mL Normal >29.9 [facility] Comment on above: Result Comment: Reference Range: Vitamin D status Range Deficiency <20 ng/mL Mild Deficiency 20-30 ng/mL Sufficiency 30-100 ng/mL Toxicity >100 ng/mL Performed By: #### I PF, TSHX, VD25, CBC, CP, LIPR #### [employer] [address] [place] [phone] Laundry Aide: Genaro Angel MD Laboratory - Chemistry and C hemistry - challengeon 07-23-2022 Albumin [Mass/Vol] 4.3 g/dL (3.5-5.2 ) [facility] Comment on above: Note: Responsible Ob food server: [employer] (3002) ALT [Catalytic activity/Vol] 27 U/L (5-33 ) [facility] Comment on above: Note: Responsible Ob food server: [employer] (3002) Anion gap [Moles/Vol] 15 mmol/L (9-17 ) [facility] Comment on above: Note: Responsible Ob food server: [employer] (3002) AST [Catalytic activity/Vol] 30 U/L (<32 ) [facility] Comment on above: Note: Responsible Ob food server: [employer] (3002) Bilirubin [Mass/Vol] 0.4 mg/dL (0.3-1.2 ) [facility] Comment on above: Note: Responsible Ob food server: [employer] (3002) Calcium [Mass/Vol] 10.9 mg/dL High (8.6-10.4 ) [facility] Comment on above: Note: Responsible Ob food server: [employer] (3002) Chloride [Moles/Vol] 100 mmol/L (98-107 ) [facility] Comment on above: Note: Responsible Ob food server: [employer] (3002) Cholesterol [Mass/Vol] 153 mg/dL (<200 ) [facility] Comment on above: Note: Cholesterol Gu idelines:<200 [id number] Borderline>240 UndesirableResponsible Observer: [employer] (3002) Cholesterol.total /Cholesterol in HDL [Mass ratio] 5.3 {ratio} High (<5 ) [facility] Comment on above: Note: Responsible Ob food server: [employer] (3002) CO2 [Moles/Vol] 20 mmol/L (20-31 ) [facility] Comment on above: Note: Responsible Ob food server: [employer]OFILE (3002) Creatinine [Mass/Vol] 0.95 mg/dL High (0.50-0.90 ) [facility] Comment on above: Note: Responsible Ob food server: [employer] (3002) GFR/1.73 sq M.predicted among non-blacks MDRD (S/P/Bld) [Vol rate/Area] mL/min/{1.73_m2} (>60 ) [facility] Comment on above: Note: These results [...] Glucose [Mass/Vol] 259 mg/dL High (70-99 ) [facility] Comment on above: Note: Responsible Ob food server: [employer] (3002) Magnesium [Mass/Vol] 29 mg/dL Low (>40 ) [facility] Comment on above: Note: HDL Guidelines :<40 [id number] Borderline>59 DesirableResponsible Observer: [employer]CEV AUTOFILE (3002) Magnesium [Mass/Vol] 60 mg/dL (0-130 ) [facility] Comment on above: Note: LDL Guidelines :<100 [id number] Near to/above [id number] Borderline>159 UndesirableDirect (measured) LDL and calculated LDL are not interchangeable tests.Responsible Observer: [employer]FILE (3002) Potassium [Moles/Vol] 4.7 mmol/L (3.7-5.3 ) [facility] Comment on above: Note: Responsible Ob food server: [employer] (3002) Protein [Mass/Vol] 7.6 g/dL (6.4-8.3 ) [facility] Comment on above: Note: Responsible Ob food server: [employer] (3002) Sodium [Moles/Vol] 135 mmol/L (135-144 ) [facility] Comment on above: Note: Responsible Ob food server: [employer] (3002) Triglyceride [Mass/Vol] 319 mg/dL High (<150 ) [facility] Comment on above: Note: Triglyceride G uidelines:<150 Iksyffzcq817-130 [id number] High>499 Very highBased on AHA Guidelines for fasting triglyceride, February 2012.Responsible Observer: [employer] (3002) Urea nitrogen [Mass/Vol] 33 mg/dL High (8-23 ) [facility] Comment on above: Note: Responsible Ob food server: [employer] (3002) Laboratory - Hematology and Cell countson 07-23-2022 Erythrocyte distribution width (RBC) [Ratio] 14.1 % (11.8-14.4 ) [facility] Comment on above: Note: Responsible Ob food server: [employer] (1219) Hematocrit (Bld) [Volume fraction] 43.9 % (36.3-47.1 ) [facility] Comment on above: Note: Responsible Ob food server: [employer] (1219) Hemoglobin (Bld) [Mass/Vol] 14.3 g/dL (11.9-15.1 ) [facility] Comment on above: Note: Responsible Ob food server: [employer] (1219) MCH (RBC) [Entitic mass] 30.5 pg (25.2-33.5 ) [facility] Comment on above: Note: Responsible Ob food server: [employer] (121) MCHC (RBC) [Mass/Vol] 32.6 g/dL (28.4-34.8 ) [facility] Comment on above: Note: Responsible Ob food server: [employer] (1218) MCV (RBC) [Entitic vol] 93.6 fL (82.6-102.9 ) [facility] Comment on above: Note: Responsible Ob food server: [employer] (1218) RBC (Bld) [#/Vol] 4.69 10*6/uL (3.95-5.11 ) [facility] Comment on above: Note: Responsible Ob food server: [employer] (1218) WBC (Bld) [#/Vol] 8.4 10*3/uL (3.5-11.3 ) [facility] Comment on above: Note: Responsible Ob food server: [employer] (1218) No Panel Informationon 07-23 Albumin/Glob Ratio 1.3 (1.0-2.5 ) [facility] Comment on above: Note: Responsible Ob food server: [employer]FILE (3002) Alkaline Phos 116 U/L High (35-104 ) [facility] Comment on above: Note: Responsible Ob food server: [employer] (3002) NRBC Automated 0.0 per_100_WBC (0.0 ) [facility] Comment on above: Note: Responsible Ob food server: [employer] (1218) Platelet Count See Reflexed IPF Res ult k/uL (138-453 ) [facility] Comment on above: Note: Responsible Ob food server: [employer] (1218) Platelet, Fluoresc. 158 k/uL (138-453 ) [facility] Comment on above: Note: ORDERED BY LAB Responsible Observer: [employer] (1218) PLT, Immature Fract. 4.5 % (1.1-10.3 ) [facility] Comment on above: Note: ORDERED BY LAB Responsible Observer: JCCORINA UP (1219) Reported Physicians See Note [facility] Comment on above: Note: Reported Physi cians:Ordering: Sparks, Latia OMARAttending: Sparks, NadiraReferring: Sparks, Latia Thyroid Stim. Horm. 1.50 uIU/mL (0.30-5.00 ) [facility] Comment on above: Note: Responsible Ob food server: [employer] (3002) Vitamin D 25 OH 92.8 ng/mL (>29.9 ) [facility] Comment on above: Note: Reference Rang e:Vitamin D status RangeDeficiency <20 ng/mLMild Deficiency 20-30 ng/mLSufficiency 30-100 ng/mLToxicity >100 ng/mLResponsible Observer: CEEV AUTOFILE (3003) MICROALB CREAT RATIO RANDOMo n 07-19-2022 mALB 43.8 mg/L Critically high <=30.0 [facility] Comment on above: Performed By: #### M CRR #### [facility] [address] [address] [address] Shashi Jimenez MALB CR RATIO 326.8 mg/g Critically high 0.0-29.9 [facility] Comment on above: Performed By: #### M CRR #### [facility] [address] [address] [address] Shashi Jimenez MALB CR RATIO RANGE SEE BELOW Normal [facility] Comment on above: Result Comment: NO M ICROALBUMINURIA 0-29 MG/G CLINICAL MICROALBUMINURIA 30-300 MG/G MACROALBUMINURIA >300 MG/G Performed By: #### M CRR #### [facility] [address] [address] [address] Shashi Jimenez URINE CREAT 134.02 mg/dL Normal 20.00-300.0 0 [facility] Comment on above: Performed By: #### M CRR #### [facility] [address] [address] [address] Shashi Jimenez PROF 14(COMP METB)on 023 Albumin [Mass/Vol] 3.8 g/dL Normal 3.4-5.0 [facility] Comment on above: Performed By: #### C MP #### [facility] [address] [address] [address] Shashi Jimenez Albumin/Globulin [Mass ratio] 1.0 {ratio} Normal [facility] Comment on above: Performed By: #### C MP #### [facility] [address] [address] [address] Shashi Jimenez ALP [Catalytic activity/Vol] 83 U/L Normal 46-116 [facility] Comment on above: Performed By: #### C MP #### [facility] [address] [address] [address] Shashi Jimenez ALT [Catalytic activity/Vol] 42 U/L Normal 14-59 [facility] Comment on above: Performed By: #### C MP #### [facility] [address] [place] [address] Dr. Shashi Jimenez Anion gap [Moles/Vol] 14.0 mmol/L Normal [facility] Comment on above: Performed By: #### C MP #### [facility] [address] [place] [address] Dr. Shashi Jimenez AST [Catalytic activity/Vol] 42 U/L Critically high 15-37 [facility] Comment on above: Performed By: #### C MP #### [facility] [address] [place] [address] Dr. Shashi Jimenez Bilirubin [Mass/Vol] 0.4 mg/dL Normal 0.2-1.0 [facility] Comment on above: Performed By: #### C MP #### [facility] [address] [place] [address] Dr. Shashi Jimenez Calcium [Mass/Vol] 10.8 mg/dL Critically high 8.5-10.1 [facility] Comment on above: Performed By: #### C MP #### [facility] [address] [place] [address] Dr. Shashi Jimenez Chloride [Moles/Vol] 99 mmol/L Normal 98-107 [facility] Comment on above: Performed By: #### C MP #### [facility] [address] [address] [address] Shashi Jimenez CO2 [Moles/Vol] 27.0 mmol/L Normal 21.0-32.0 [facility] Comment on above: Performed By: #### C MP #### [facility] [address] [place] [address] Dr. Shashi Jimenez Creatinine [Mass/Vol] 0.92 mg/dL Normal 0.55-1.02 [facility] Comment on above: Performed By: #### C MP #### [facility] [address] [place] [address] Dr. Shashi Jimenez EGFR-AF PAKISTANI >60 Normal >=60 [facility] Comment on above: Performed By: #### C MP #### [facility] [address] [place] [address] Dr. Shashi Jimenez EGFR-NON AF PAKISTANI =60 Normal >=60 [facility] Comment on above: Performed By: #### C MP #### [facility] [address] [address] [address] Shashi Jimenez Globulin (S) [Mass/Vol] 3.9 g/dL Normal [facility] Comment on above: Performed By: #### C MP #### [facility] [address] [place] [address] Dr. Shashi Jimenez Glucose [Mass/Vol] 300 mg/dL Critically high 74-106 [facility] Comment on above: Performed By: #### C MP #### [facility] [address] [place] [address] Dr. Shashi Jimenez Potassium [Moles/Vol] 4.0 mmol/L Normal 3.5-5.1 [facility] Comment on above: Performed By: #### C MP #### [facility] [address] [place] [address] Dr. Shashi Jimenez Protein [Mass/Vol] 7.7 g/dL Normal 6.4-8.2 [facility] Comment on above: Performed By: #### C MP #### [facility] [address] [place] [address] Dr. Shashi Jimenez Sodium [Moles/Vol] 136 mmol/L Normal 136-145 [facility] Comment on above: Performed By: #### C MP #### [facility] [address] [address] [address] Shashi Jimenez Urea nitrogen [Mass/Vol] 20.0 mg/dL Critically high 7.0-18.0 [facility] Comment on above: Performed By: #### C MP #### [facility] [id number] Shashi Jimenez Urea nitrogen/Creatini ne [Mass ratio] 21.7 mg/mg Normal [facility] Comment on above: Performed By: #### C MP #### [facility] [address] [address] [address] Shashi Jimenez XR ankle LT min 3V*on 2021 XR ankle LT min 3V* [facility] Main [place] [address] [place] [address] XRay Report Signed Patient: Tunde Jack MR#: [id number] : 1950 Acct:[id number] Age/Sex: 71 / F ADM Date: 09/21/21 Loc: XDUCLY Room: Type: [facility] Attending Dr: Constantine Hernandez MD Ordering Provider: [...] 1:10 PM Dictation Location: RADIO-PC-13 Transcribed By: [facility] [place] [facility] 09/21/21 1310 Dictated By: Desiree Garrett II, MD 09/21/21 1308 Signed By: 09/21/21 1346 Normal [facility] XR ankle LT min 3V* [facility] [employer] Other XR ankle LT min 3V* [facility] [employer] Other XR ankle LT min 3V* [address] [place] [address] [employer] Other XR ankle LT min 3V* [place] [id number] [employer] Other XR ankle LT min 3V* XRay Report [employer] Other XR ankle LT min 3V* Signed [employer] Other XR ankle LT min 3V* Patient: Tunde Jack MR#: [id number] [employer] Other XR ankle LT min 3V* 3475 [employer] Other XR ankle LT min 3V* : 1950 Acct:[id number] [employer] Other XR ankle LT min 3V* Age/Sex: 71 / F ADM Date: 09/21/21 [employer] Other XR ankle LT min 3V* Loc: XDUCLY Room: Type: [facility] CL [employer] Other XR ankle LT min 3V* Attending Dr: Constantine Hernandez MD [employer] Other XR ankle LT min 3V* Ordering Provider: Isidra Hernandez APRN [employer] Other XR ankle LT min 3V* Date of Service: 09/21/21 [employer] Other XR ankle LT min 3V* XR/XR ankle LT min 3V*: T14.90XA [employer] Other XR ankle LT min 3V* Copies to: Isidra Hernandez APRN [employer] Other XR ankle LT min 3V* Constantine Hernandez MD [employer] Other XR ankle LT min 3V* XR ankle LT min 3V* 09/21/2021 12:53 PM [employer] Other XR ankle LT min 3V* SIGNS AND SYMPTOMS: Twisting injury to left ankle with pain laterally [employer] Other XR ankle LT min 3V* PROTOCOL: Frontal, lateral, and oblique radiographs of the left ankle [employer] Other XR ankle LT min 3V* COMPARISON: None [employer] Other XR ankle LT min 3V* FINDINGS: [employer] Other XR ankle LT min 3V* The bones are in anatomic alignment. There is no evidence of acute displaced fracture. There is [employer] Other XR ankle LT min 3V* soft tissue swelling which is greatest over the lateral malleolus. The ankle mortise is preserved. [employer] Other XR ankle LT min 3V* Calcifications are noted along the Achilles tendon suspicious for a previous Achilles injury. [employer] Other XR ankle LT min 3V* XR/XR ankle LT min 3V* [employer] Other XR ankle LT min 3V* IMPRESSION: [employer] Other XR ankle LT min 3V* No acute displaced fracture. [employer] Other XR ankle LT min 3V* Diffuse soft tissue swelling greatest over the lateral malleolus. [employer] Other XR ankle LT min 3V* Calcifications are noted along the Achilles tendon suspicious for a previous Achilles injury versus [employer] Other XR ankle LT min 3V* calcific tendinosis. [employer] Other XR ankle LT min 3V* Impression dictated by: Desiree Garrett M.D.09/21/2021 1:10 PM [employer] Other XR ankle LT min 3V* Dictation Location: [facility]--13 [employer] Other XR ankle LT min 3V* Transcribed By: MELODY 09/21/21 1310 [employer] Other XR ankle LT min 3V* Dictated By: Desiree Garrett II, MD 09/21/21 1308 [employer] Other XR ankle LT min 3V* Signed By: 09/21/21 1346 [employer] Other ED PROV NOTEon 02-27-2019 ED PROV NOTE HNO ID: [id number] Author: Nargis Raman Service: ? Author Type: Physician Type: ED Provider Notes Filed: 03/01/2019 1:58 AM Note Text: [place] [address] [facility] EMERGENCY DEPARTMENT REPORT Patient: TUNDE JACK DANISHA,NARGIS Simon D.O. [id number] [age] F Status: DEP ER ED [...] By: NARGIS RAMAN D.O. Tests performed at: [facility] [address] [place], [place] [address] Normal [facility] EMERGENCY DEPARTMENT REPORTo n 02-27-2019 [place] [address] HEALTH INFORMATION MANAGEMENT EMERGENCY DEPARTMENT REPORT Patient: TUNDE JACK NARGIS RAMAN D.O. [id number] [age] F Status: DEP ER ED [...] By: NARGIS RAMAN D.O. Tests performed at: [address] [id number] Normal [facility] LUMBAR LIMITED 2Von 02-28-20 LUMBAR LIMITED 2V [address] [address] Name: TUNDE JACK Phys: NARGIS RAMAN D.O. : [birth year] Age: 68 Sex: F Acct: [id number] Loc: ED Exam Date: 02/27/19 Status: [facility] ER Radiology No.: [id number] Unit Number: [id number] Exam # Type/Exam [id number] RAD / LUMBAR LIMITED 2V EXAM DESCRIPTION: [...] By: LEAH KIRKPATRICK M.D. Tests performed at: [place] [address] Normal [facility] ED PROV NOTEon 01-23-2019 ED PROV NOTE HNO ID: [id number] Author: Desiree May Service: ? Author Type: Physician Type: ED Provider Notes Filed: 01/28/2019 2:46 PM Note Text: [place] [address] HEALTH INFORMATION MANAGEMENT EMERGENCY DEPARTMENT REPORT Patient: TUNDE JACK MARK N M.D. [id number] [age] F Status: [facility] ER ED Date of Service: 01/22/19 CHIEF [...] HISTORY Patient is . She is a jxrg-gmpm-j-day smoker. PAST SURGICAL HISTORY Appendectomy, cholecystectomy, hysterectomy. [...] rash. No petechiae or purpura. Neurologic exam: [place] Coma Scale is 15. No gross focal [...] By: DESIREE MAY M.D. Tests performed at: [facility] [address] [place], [place] [address] Normal [facility] EMERGENCY DEPARTMENT REPORTo n 01-23-2019 [place] [address] HEALTH INFORMATION MANAGEMENT EMERGENCY DEPARTMENT REPORT Patient: TUNDE JACK DESIREE MAY M.D. [id number] [age] F Status: DEP ER ED [...] HISTORY Patient is . She is a mlum-xwpq-x-day smoker. PAST SURGICAL HISTORY Appendectomy, cholecystectomy, hysterectomy. [...] rash. No petechiae or purpura. Neurologic exam: [place] Coma Scale is 15. No gross focal [...] By: DESIREE MAY M.D. Tests performed at: [address] [address] Normal [facility] ABDOMEN MULTIPLE VIEWSon ABDOMEN MULTIPLE VIEWS [address] [address] Name: TUNDE JACK Phys: DESIREE MAY M.D. : [birth year] Age: 68 Sex: F Acct: [id number] Loc: ED Exam Date: 01/22/19 Status: REG ER Radiology No.: [id number] Unit Number: [id number] Exam # Type/Exam [id number] RAD / ABDOMEN MULTIPLE VIEWS XR ABDOMEN [...] By: HUA PLATA M.D. Signed By: HUA PLAAT M.D. Tests performed at: [address] [address] Normal [facility] BMPon 01-22-2019 Anion gap [Moles/Vol] 16.0 mmol/L Normal 15-22 [facility] Comment on above: Performed By: #### L 100.0350, L100.0030, L100.0010 #### [facility] - [facility]AT[facility] [address] [place] [address] Calcium [Mass/Vol] 10.5 mg/dL High 8.8-10.2 [facility] Comment on above: Performed By: #### L 100.0350, L100.0030, L100.0010 #### [facility] [address] [place] [address] Chloride [Moles/Vol] 99 mmol/L Normal 98-107 [facility] Comment on above: Performed By: #### L 100.0350, L100.0030, L100.0010 #### [facility] [address] [place] [address] CO2 [Moles/Vol] 26 mmol/L Normal 22-29 [facility] Comment on above: Performed By: #### L 100.0350, L100.0030, L100.0010 #### [facility] [address] [place] [address] Creatinine [Mass/Vol] 0.90 mg/dL Normal 0.50-0.90 [facility] Comment on above: Performed By: #### L 100.0350, L100.0030, L100.0010 #### [facility] [address] [place] [address]479 eGFR if AFR MARICEL > 60 ml/min/1.73m2 Normal [facility] Comment on above: Result Comment: eGFR >= [...] By: #### L 100.0350, L100.0030, L100.0010 #### [facility] [address] [place] [address]88 eGFR nonAFR Maricel > 60 ml/Min/1.73m2 Normal [facility] Comment on above: Performed By: #### L 100.0350, L100.0030, L100.0010 #### [facility] [address] [place] [address] Glucose [Mass/Vol] 212 mg/dL High 82-115 [facility] Comment on above: Performed By: #### L 100.0350, L100.0030, L100.0010 #### [facility] [address] [place] [address] Potassium [Moles/Vol] 4.0 mmol/L Normal 3.5-5.0 [facility] Comment on above: Performed By: #### L 100.0350, L100.0030, L100.0010 #### - LABORATORY [address] [place] [address] Sodium [Moles/Vol] 137 mmol/L Normal 135-145 [facility] Comment on above: Performed By: #### L 100.0350, L100.0030, L100.0010 #### [facility] [address] [place] [address]77 Urea nitrogen [Mass/Vol] 24 mg/dL High 8-23 [facility] Comment on above: Performed By: #### L 100.0350, L100.0030, L100.0010 #### [facility] [address] [place] [address] CBCon 01-22-2019 Basophils (Bld) [#/Vol] 0.00 x10(3) Normal 0.00-0.10 [facility] Comment on above: Performed By: #### L 200.0010 #### [facility] [address] [place] [address] Basophils/100 WBC (Bld) 0.3 % Normal 0.0-1.0 [facility] Comment on above: Performed By: #### L 200.0010 #### [facility] [address] [place] [address] Eosinophils (Bld) [#/Vol] 0.20 x10(3) Normal 0.00-0.54 [facility] Comment on above: Performed By: #### L 200.0010 #### [facility] [address] [place] [address] Eosinophils/100 WBC (Bld) 3.0 % Normal 0.5-4.9 [facility] Comment on above: Performed By: #### L 200.0010 #### [facility] [address] [place] [address] Erythrocyte distribution width (RBC) [Ratio] 13.7 % Normal 12.5-15.7 [facility] Comment on above: Performed By: #### L 200.0010 #### [facility] [address] [place] [address] Hematocrit (Bld) [Volume fraction] 45.9 % Normal 36.0-48.0 [facility] Comment on above: Performed By: #### L 200.0010 #### [facility] [address] [place] [address] Hemoglobin (Bld) [Mass/Vol] 15.5 g/dL Normal 12.0-16.0 [facility] Comment on above: Performed By: #### L 200.0010 #### [facility] [address] [place] [address] Lymphocytes (Bld) [#/Vol] 1.70 x10(3) Normal 1.00-3.50 [facility] Comment on above: Performed By: #### L 200.0010 #### [facility] [address] [place] [address] 365[address] Lymphocytes/100 WBC (Bld) 22.1 % Normal 16.0-48.0 [facility] Comment on above: Performed By: #### L 200.0010 #### [facility] [address] [place] [address] 72377 MCH (RBC) [Entitic mass] 30.9 pg Normal 28.5-32.9 [facility] Comment on above: Performed By: #### L 200.0010 #### [facility] [address] [place] [address] MCHC (RBC) [Mass/Vol] 33.8 g/dL Normal 33.0-36.0 [facility] Comment on above: Performed By: #### L 200.0010 #### [facility] [address] [place] [address] 79987 MCV (RBC) [Entitic vol] 91.3 fL Normal 80.0-99.0 [facility] Comment on above: Performed By: #### L 200.0010 #### [facility] [address] [place] [address]97 Monocytes (Bld) [#/Vol] 0.60 x10(3) Normal 0.30-0.80 [facility] Comment on above: Performed By: #### L 200.0010 #### [facility] [address] [place] [address] Monocytes/100 WBC (Bld) 8.3 % Normal 4.3-11.2 [facility] Comment on above: Performed By: #### L 200.0010 #### [facility] [address] [place] [address] [place] [address] Neutrophils (Bld) [#/Vol] 5.10 x10(3) Normal 1.40-6.50 [facility] Comment on above: Performed By: #### L 200.0010 #### [facility] [address] [place] [address] Neutrophils/100 WBC (Bld) 66.3 % Normal 45.0-73.0 [facility] Comment on above: Performed By: #### L 200.0010 #### [facility] [address] [place] [address]168 Platelet mean volume (Bld) [Entitic vol] 8.2 fL Normal 7.5-9.5 [facility] Comment on above: Performed By: #### L 200.0010 #### [facility] [address] [place] [address] Platelets (Bld) [#/Vol] 124 X10(3) Low 150-450 [facility] Comment on above: Performed By: #### L 200.0010 #### [facility] [address] [place] [address]98 RBC (Bld) [#/Vol] 5.02 x10(6) High 3.30-5.00 [facility] Comment on above: Performed By: #### L 200.0010 #### [facility] [address] [place] [address]74 WBC (Bld) [#/Vol] 7.7 x10(3) Normal 4.5-10.0 [facility] Comment on above: Performed By: #### L 200.0010 #### [facility] [address] [place] [address] ABD/PEL W CONTRASTon CT ABD/PEL W CONTRAST [address] [address] Name: TUNDE JACK Phys: DESIREE MAY M.D. : [birth year] Age: 68 Sex: F Acct: [id number] Loc: ED Exam Date: 09/05/19 Status: REG ER Radiology No.: [id number] Unit Number: [id number] Exam # Type/Exam [id number] CT / CT ABD/PEL W CONTRAST CT [...] By: CHI CASTANEDA D.O. Tests performed at: [place] [id number] Normal [facility] HEPATIC PANELon 01-22-2019 A:G RATIO 1.32 Normal 1.1-2.5 [facility] Comment on above: Performed By: #### L 100.0350, L100.0030, L100.0010 #### [facility] [address] [place] [address] 16462 Albumin [Mass/Vol] 4.1 g/dL Normal 3.5-5.2 [facility] Comment on above: Performed By: #### L 100.0350, L100.0030, L100.0010 #### [facility] [address] [place] [address] ALK. PHOS 79 U/L Normal 35-105 [facility] Comment on above: Performed By: #### L 100.0350, L100.0030, L100.0010 #### [facility] [address] [place] [address] 41845 ALT [Catalytic activity/Vol] 23 U/L Normal 5-33 [facility] Comment on above: Performed By: #### L 100.0350, L100.0030, L100.0010 #### - LABORATORY [address] [place] [address] 15700 AST [Catalytic activity/Vol] 23 U/L Normal 5-32 [facility] Comment on above: Performed By: #### L 100.0350, L100.0030, L100.0010 #### - LABORATORY [address] [place] [address] 10982 Bilirubin Ql (U) 0.3 mg/dL Normal 0.2-1.2 [facility] Comment on above: Performed By: #### L 100.0350, L100.0030, L100.0010 #### [facility] [address] [place] [address] DIRECT BILIRUBI <0.2 Normal 0.0-0.3 [facility] Comment on above: Performed By: #### L 100.0350, L100.0030, L100.0010 #### [facility] [address] [place] [address] 81079 Globulin (S) [Mass/Vol] 3.1 g/dL Normal 1.5-4.5 [facility] Comment on above: Performed By: #### L 100.0350, L100.0030, L100.0010 #### - LABORATORY [address] [place] [address]75 Protein [Mass/Vol] 7.2 g/dL Normal 6.4-8.3 [facility] Comment on above: Performed By: #### L 100.0350, L100.0030, L100.0010 #### [facility] [address] [place] [address] 08583 LIPASEon 01-22-2019 Lipase [Catalytic activity/Vol] 44 U/L Normal 13-60 [facility] Comment on above: Performed By: #### L 100.0350, L100.0030, L100.0010 #### [facility] [address] [place] [address]505 URINALYSISon 01-22-2019 Bilirubin Ql (U) Negative Normal NEGATIVE [facility] Comment on above: Order Comment: Urine Specimen Source+ CLEAN CATCH Performed By: #### L 200.3000 #### [facility] [address] [place] [address] 49835 Color (U) YELLOW Normal YELLOW [facility] Comment on above: Order Comment: Urine Specimen Source+ CLEAN CATCH Performed By: #### L 200.3000 #### [facility] [address] [place] [address] 89874 Glucose Ql (U) >=1000 Normal NEGATIVE [facility] Comment on above: Order Comment: Urine Specimen Source+ CLEAN CATCH Performed By: #### L 200.3000 #### [facility] [address] [place] [address] 95253 Hemoglobin Ql (U) TRACE-INTACT Normal [facility] Comment on above: Order Comment: Urine Specimen Source+ CLEAN CATCH Performed By: #### L 200.3000 #### [facility] [address] [place] [address] 30580 Leukocyte esterase Test strip Ql (U) Negative Normal NEGATIVE [facility] Comment on above: Order Comment: Urine Specimen Source+ CLEAN CATCH Performed By: #### L 200.3000 #### [facility] [address] [place] [address] 96447 Nitrite Ql (U) Negative Normal NEGATIVE [facility] Comment on above: Order Comment: Urine Specimen Source+ CLEAN CATCH Performed By: #### L 200.3000 #### [facility] [address] [place] [address] 19070 pH (U) 5.5 [pH] Normal 5.0-8.0 [facility] Comment on above: Order Comment: Urine Specimen Source+ CLEAN CATCH Performed By: #### L 200.3000 #### [facility] [address] [place] [address] 61757 Protein Ql (U) Negative Normal NEGATIVE [facility] Comment on above: Order Comment: Urine Specimen Source+ CLEAN CATCH Performed By: #### L 200.3000 #### [facility] [address] [place] [address] 41075 URINE APPEARANC CLEAR Normal CLEAR [facility] Comment on above: Order Comment: Urine Specimen Source+ CLEAN CATCH Performed By: #### L 200.3000 #### [facility] [address] [place] [address] 94571 URINE KETONE Negative Normal NEGATIVE [facility] Comment on above: Order Comment: Urine Specimen Source+ CLEAN CATCH Performed By: #### L 200.3000 #### [facility] [address] [place] [address] 45192 URINE SPECIFIC <=1.005 Normal 1.001-1.035 [facility] Comment on above: Order Comment: Urine Specimen Source+ CLEAN CATCH Performed By: #### L 200.3000 #### [facility] [address] [place] [address] 08039 URINE UROBILINO 0.2 EU/DL Normal 0.2-1.0 [facility] Comment on above: Order Comment: Urine Specimen Source+ CLEAN CATCH Performed By: #### L 200.3000 #### [facility] [address] [place] [address] 70928 [id number] 01-15-2019 HbA1c (Bld) [Mass fraction] 7.2 % High 4.3-6.1 [facility] Comment on above: Result Comment: Estimated Average Glucose: HgbA1C % mg/dL 4.0 68 5.0 97 6.0 125 7.0 154 8.0 183 9.0 212 10.0 240 Source: [place] [employer] web site, 2017. Performed By: #### L 200.2000 #### [facility] [address] [place] [address] 00069 LIPID PANELon 01-15-2019 Cholesterol [Mass/Vol] 158 mg/dL Normal 130-200 [facility] Comment on above: Order Comment: ADD O N Performed By: #### L 100.0040 #### [facility] [address] [place] [address] 07679 Cholesterol in HDL [Mass/Vol] 30 mg/dL Normal [facility] Comment on above: Order Comment: [...] L 100.0040 #### [facility] [address] [place] [address] 70814 Cholesterol in LDL [Mass/Vol] 55 mg/dL [facility] Comment on above: Order Comment: ADD O N Result Comment: LDL: OPTIMAL FOR PEOPLE AT VERY HIGH RISK <70 OPTIMAL <100 NEAR OPTIMAL 100-129 BORDERLINE HIGH 130-159 HIGH 160-189 VERY HIGH >=190 Source: 2009 NCEP ATP III, ADA Guidelines Reviewed: August, Performed By: #### L 100.0040 #### [facility] [address] [place] [address] 12558 Cholesterol in LDL/Cholesterol in HDL [Mass ratio] 1.8 [facility] Comment on above: Order Comment: ADD O N Performed By: #### L 100.0040 #### [facility] [address] [place] [address] 40834 Cholesterol in VLDL [Mass/Vol] 73 mg/dL High 6-40 [facility] Comment on above: Order Comment: ADD O N Performed By: #### L 100.0040 #### [facility] [address] [place] [address] 01170 Triglyceride [Mass/Vol] 365 mg/dL [facility] Comment on above: Order Comment: ADD O N Result Comment: TRIG : DESIRABLE: <150 mg/dL Performed By: #### L 100.0040 #### [facility] [address] [place] [address] 14908 Hoda 01-14-2019 ALT [Catalytic activity/Vol] 29 U/L Normal -33 [facility] Comment on above: Performed By: #### L 100.0010, L100.0240, L100.0250 #### [facility] [address] [place] [address] 82601 Genesis 01-14-2019 AST [Catalytic activity/Vol] 30 U/L Normal -32 [facility] Comment on above: Performed By: #### L 100.0010, L100.0240, L100.0250 #### [facility] [address] [place] [address] 68077 BMPon 01-14-2019 Anion gap [Moles/Vol] 16.6 mmol/L Normal 15- [facility] Comment on above: Performed By: #### L 100.0010, L100.0240, L100.0250 #### [facility] [address] [place] [address] 79528 Calcium [Mass/Vol] 10.3 mg/dL High 8.8-10.2 [facility] Comment on above: Performed By: #### L 100.0010, L100.0240, L100.0250 #### [facility] [address] [place] [address] 44299 Chloride [Moles/Vol] 98 mmol/L Normal 98-107 [facility] Comment on above: Performed By: #### L 100.0010, L100.0240, L100.0250 #### [facility] [address] [place] [address] 58631 CO2 [Moles/Vol] 28 mmol/L Normal 22-29 [facility] Comment on above: Performed By: #### L 100.0010, L100.0240, L100.0250 #### [facility] [address] [place] [address] 70493 Creatinine [Mass/Vol] 0.74 mg/dL Normal 0.50-0.90 [facility] Comment on above: Performed By: #### L 100.0010, L100.0240, L100.0250 #### [facility] [address] [place] [address] 65524 eGFR if AFR MARICEL > 60 ml/min/1.73m2 Normal [facility] Comment on above: Result Comment: eGFR >= [...] By: #### L 100.0010, L100.0240, L100.0250 #### [facility] [address] [place] [address] 31430 eGFR nonAFR Maricel > 60 ml/Min/1.73m2 Normal [facility] Comment on above: Performed By: #### L 100.0010, L100.0240, L100.0250 #### [facility] [address] [place] [address] 13021 Glucose [Mass/Vol] 208 mg/dL High 82-115 [facility] Comment on above: Performed By: #### L 100.0010, L100.0240, L100.0250 #### [facility] [address] [place] [address] Potassium [Moles/Vol] 4.6 mmol/L Normal 3.5-5.0 [facility] Comment on above: Performed By: #### L 100.0010, L100.0240, L100.0250 #### [facility] [address] [place] [address]13 Sodium [Moles/Vol] 138 mmol/L Normal 135-145 [facility] Comment on above: Performed By: #### L 100.0010, L100.0240, L100.0250 #### [facility] [address] [place] [address] 82304 Urea nitrogen [Mass/Vol] 16 mg/dL Normal 8-23 [facility] Comment on above: Performed By: #### L 100.0010, L100.0240, L100.0250 #### [facility] [address] [place] [address] 11582 [facility] Anion gap [Moles/Vol] 19.0 mmol/L Normal 15-22 [facility] Comment on above: Performed By: #### L 100.0010 #### [facility] [address] [place] [address] 53292 Calcium [Mass/Vol] 10.0 mg/dL Normal 8.8-10.2 [facility] Comment on above: Performed By: #### L 100.0010 #### [facility] [address] [place] [address] 76898 Chloride [Moles/Vol] 97 mmol/L Low 98-107 [facility] Comment on above: Performed By: #### L 100.0010 #### ML [facility] [address] [place] [address] 17803 CO2 [Moles/Vol] 26 mmol/L Normal 22-29 [facility] Comment on above: Performed By: #### L 100.0010 #### [facility] [address] [place] [address] 80476 Creatinine [Mass/Vol] 0.98 mg/dL High 0.50-0.90 [facility] Comment on above: Performed By: #### L 100.0010 #### [facility] [address] [place] [address] 84976 eGFR if AFR MARICEL > 60 ml/min/1.73m2 Normal [facility] Comment on above: Result Comment: eGFR >= [...] L 100.0010 #### [facility] [address] [place] [address] 95048 eGFR nonAFR Maricel 57 Normal [facility] Comment on above: Performed By: #### L 100.0010 #### [facility] [address] [place] [address] 52781 Glucose [Mass/Vol] 171 mg/dL High 82-115 [facility] Comment on above: Performed By: #### L 100.0010 #### ML [facility] [address] [place] [address] 96964 Potassium [Moles/Vol] 4.0 mmol/L Normal 3.5-5.0 [facility] Comment on above: Performed By: #### L 100.0010 #### ML [facility] [address] [place] [address] 14764 Sodium [Moles/Vol] 138 mmol/L Normal 135-145 [facility] Comment on above: Performed By: #### L 100.0010 #### [facility] [address] [place] [address] 19441 Urea nitrogen [Mass/Vol] 22 mg/dL Normal 8-23 [facility] Comment on above: Performed By: #### L 100.0010 #### ML [facility] [address] [place] [address] [place] [address] PTHon 11-12-2018 PTH 26.5 pg/mL Normal 15-65 [facility] Comment on above: Performed By: #### L 304.0135 #### ML [facility] [address] [place] [address] [place] [address] BMPon 10-16-2018 Anion gap [Moles/Vol] 20.3 mmol/L Normal 15-22 [facility] Comment on above: Performed By: #### L 100.0010, L304.0470 #### [facility] [address] [place] [address] 07313 Calcium [Mass/Vol] 10.9 mg/dL High 8.8-10.2 [facility] Comment on above: Performed By: #### L 100.0010, L304.0470 #### [facility] [address] [place] [address] 93865 Chloride [Moles/Vol] 100 mmol/L Normal 98-107 [facility] Comment on above: Performed By: #### L 100.0010, L304.0470 #### [facility] [address] [place] [address] 84313 CO2 [Moles/Vol] 27 mmol/L Normal 22-29 [facility] Comment on above: Performed By: #### L 100.0010, L304.0470 #### [facility] [address] [place] [address] 94115 Creatinine [Mass/Vol] 1.03 mg/dL High 0.50-0.90 [facility] Comment on above: Performed By: #### L 100.0010, L304.0470 #### [facility] [address] [place] [address] 16006 eGFR if AFR MARICEL > 60 ml/min/1.73m2 Normal [facility] Comment on above: Result Comment: eGFR >= [...] 100.0010, L304.0470 #### [facility] 9 [place] [address] eGFR nonAFR Maricel 54 Normal [facility] Comment on above: Performed By: #### L 100.0010, L304.0470 #### [facility] [address] [place] [address] [place] [address] Glucose [Mass/Vol] 186 mg/dL High 82-115 [facility] Comment on above: Performed By: #### L 100.0010, L304.0470 #### [facility] [address] [place] [address] 62114 Potassium [Moles/Vol] 4.3 mmol/L Normal 3.5-5.0 [facility] Comment on above: Performed By: #### L 100.0010, L304.0470 #### [facility] [address] [place] [address] 01695 Sodium [Moles/Vol] 143 mmol/L Normal 135-145 [facility] Comment on above: Performed By: #### L 100.0010, L304.0470 #### [facility] [address] [place] [address] 17325 Urea nitrogen [Mass/Vol] 28 mg/dL High 8-23 [facility] Comment on above: Performed By: #### L 100.0010, L304.0470 #### [facility] [address] [place] [address] 97493 PTHon 10-16-2018 PTH 25.1 pg/mL Normal 15-65 [facility] Comment on above: Performed By: #### L 304.0135 #### [facility] [address] [place] [address] 58945 VITAMIN Don 10-16-2018 VITAMIN D 48.5 ng/mL Normal 30-100 [facility] Comment on above: Performed By: #### L 100.0010, L304.0470 #### [facility] [address] [place] [address] 15956 Emergency Nurse Cytology Reporton 2018 Emergency Nurse Cytology Report . Pathology ReportsAccession: Collected Date/Time: Received Date/Time: Pathologist:[id number] 05/21/2018 16:06 EST 05/21/2018 18:00 MD JOY FARMER Emergency Nurse Cytology ReportSPECIMEN:Specimen Description: Liquid Prep w/ HPVSpecimen: Cervical/EndocervicalScre ening or Diagnostic: ScreeningRELEVANT HISTORY:LMP: not givenSPECIMEN ADEQUACY:SATISFACTORY FOR EVALUATIONENDOCERVICAL/TR ANSFORMATIONAL ZONE COMPONENT PRESENTINTERPRETATION/RES ULTS:NEGATIVE FOR INTRAEPITHELIAL LESION OR MALIGNANCYADJUNCTIVE TESTING:HIGH RISK HPV DNA TESTING ORDERED, REPORT TO FOLLOW UNDER SEPARATE COVERSUGGESTIONS/EDUCATIO NAL NOTES:THIS CASE HAS BEEN REVIEWED FOR 10% Q.C. RESCREENElectronically Signed byPathology report verified by [facility].Screened by: HERLINDA DWElectronically signed by JOY Whalengn-Out Date: 05/27/2018 10:24Performing Lab: [facility], [address] [place], [place] [address] hospitalThe Pap test is a screening test for cervical cancer. As evidenced by published data, it is subject to both inherent false negative and false positive results. Your patient's results should be interpreted in context with pertinent clinical history including gynecological examination. Normal [facility] ([place]) Comment on above: Performed By: #### G YCR ####[place] [address] HPVon 05-27-2018 HPV Interp Normal See Interp HPVN [facility] [place] Comment on above: Order Comment: Order placed by AP_HPV_ORDER rule from [id number] Result Comment: High Risk HPV Typing: NEGATIVEHPV [...] Interp HPVN Performed By: #### H PV ####[place] [id number] [place] [address] 87416 HPV Source Cervix Normal [facility] ([place] Comment on above: Order Comment: Order placed by AP_HPV_ORDER rule from [id number] Performed By: #### H PV ####[place] [address] [place] [address] 07202 PROGRESSon 05-17-2018 PROGRESS HNO ID: [id number] Author: Provider [facility] Service: (none) Author Type: Physician Type: Progress Notes Filed: 05/17/2018 12:29 PM Note Text: [facility] [place] [address] FIRST CARE REPORT Patient: MICKEYTUNDE Erika SAM,-RAIMUNDO MartinezNSarahPSarah [id number] F Status: REG POV FC [...] Diabetes Former cigarette smoker H/O appendicitis 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 o Call or return to [facility] if you experience problems relating to your [...] patient and were understood. Report to the [facility] Emergency Department if any further problems occur. [...] By: SEE SAM FSarahNSarahPSarah Tests performed at: [place] [id number] Normal [facility] STRP SCNon 05-17-2018 STRP SCN Performed at: [facility] [address] [place] [id number] STREP SCREEN NEGATIVE - CULTURE TO FOLLOW REFERENCE RANGE NORMAL RESULT IS NEGATIVE. Normal [facility] 05-17-2018 THT ORGANISM 1: NO GROUP A BETA STREP ISOLATED Normal [facility] Comment on above: Performed By: #### M 130.0700 #### [facility] - [facility]ATORY [address] [place], [place] [address] SURGICAL PATHOLOGY, CONVERTE Don 04-21-2014 [facility] Vital Signs Date Time Vital Sign Value Performing Clinician Facility 06-04-2023 10:37-0500 Body height 162.56 [facility] Work Phone: 06-04-2023 10:37-0500 Body mass index (BMI) [Ratio] 35.4 kg/m2 [facility] Work Phone: 06-04-2023 10:37-0500 Body surface area Derived from formula 2 m2 Latia Sparks PIPELINE DISPATCH OPERATOR Work Phone: [facility] Work Phone: 06-04-2023 10:37-0500 Body weight 93.44 kg Latia Sparks PIPELINE DISPATCH OPERATOR Work Phone: [facility] Work Phone: 06-04-2023 10:37-0500 Diastolic blood pressure 80 mm[Hg] Latia Sparks PIPELINE DISPATCH OPERATOR Work Phone: [facility] Work Phone: 06-04-2023 10:37-0500 Heart rate 96 /min Latia Sparks PIPELINE DISPATCH OPERATOR Work Phone: [facility] Work Phone: 06-04-2023 10:37-0500 Inhaled oxygen concentration 21 % Latia Sparks PIPELINE DISPATCH OPERATOR Work Phone: [facility] Work Phone: 06-04-2023 10:37-0500 Inhaled oxygen flow rate 0 L/min Latia Sparks PIPELINE DISPATCH OPERATOR Work Phone: [facility] Work Phone: 06-04-2023 10:37-0500 SaO2% (BldA) [Mass fraction] 98 % Latia Sparks PIPELINE DISPATCH OPERATOR Work Phone: [facility] Work Phone: 06-04-2023 10:37-0500 Systolic blood pressure 138 mm[Hg] Latia Sparks PIPELINE DISPATCH OPERATOR Work Phone: [facility] Work Phone: 05-10-2023 10:03-0500 Body height 162.56 cm Latia Sparks PIPELINE DISPATCH OPERATOR Work Phone: [facility] Work Phone: 05-10-2023 10:03-0500 Body mass index (BMI) [Ratio] 35.7 kg/m2 Latia Sparks PIPELINE DISPATCH OPERATOR Work Phone: [facility] Work Phone: 05-10-2023 10:03-0500 Body surface area Derived from formula 2 m2 Latia Sparks PIPELINE DISPATCH OPERATOR Work Phone: [facility] Work Phone: 05-10-2023 10:03-0500 Body temperature 97.8 [degF] Latia Sparks PIPELINE DISPATCH OPERATOR Work Phone: [facility] Work Phone: 05-10-2023 10:03-0500 Body weight 94.26 kg Latia Sparks PIPELINE DISPATCH OPERATOR Work Phone: [facility] Work Phone: 05-10-2023 10:03-0500 Diastolic blood pressure 76 mm[Hg] Latia Sparks PIPELINE DISPATCH OPERATOR Work Phone: [facility] Work Phone: 05-10-2023 10:03-0500 Heart rate 103 /min Latia Sparks PIPELINE DISPATCH OPERATOR Work Phone: [facility] Work Phone: 05-10-2023 10:03-0500 Inhaled oxygen concentration 21 % Latia Sparks PIPELINE DISPATCH OPERATOR Work Phone: [facility] Work Phone: 05-10-2023 10:03-0500 Inhaled oxygen flow rate 0 L/min Latia Sparks PIPELINE DISPATCH OPERATOR Work Phone: [facility] Work Phone: 05-10-2023 10:03-0500 SaO2% (BldA) [Mass fraction] 96 % Latia Sparks PIPELINE DISPATCH OPERATOR Work Phone: [facility] Work Phone: 05-10-2023 10:03-0500 Systolic blood pressure 133 mm[Hg] Latia Sparks PIPELINE DISPATCH OPERATOR Work Phone: [facility] Work Phone: 05-09-2023 13:36-0500 Body height 162.6 cm Pmh 2 [facility] 05-09-2023 13:36-0500 Body mass index (BMI) [Ratio] 35.36 kg/m2 Pmh 2 [facility] 05-09-2023 13:36-0500 Body weight 93.44 kg Pm 2 [facility] 04-18-2023 14:10-0500 Body height 162.56 cm Latia Sparks PIPELINE DISPATCH OPERATOR Work Phone: [facility] Work Phone: 04-18-2023 14:10-0500 Body mass index (BMI) [Ratio] 35.7 kg/m2 Latia Sparks PIPELINE DISPATCH OPERATOR Work Phone: [facility] Work Phone: 04-18-2023 14:10-0500 Body surface area Derived from formula 2 m2 Latia Sparks PIPELINE DISPATCH OPERATOR Work Phone: [facility] Work Phone: 04-18-2023 14:10-0500 Body temperature 97.8 [degF] Latia Sparks PIPELINE DISPATCH OPERATOR Work Phone: [facility] Work Phone: 04-18-2023 14:10-0500 Body weight 94.35 kg Latia Sparks PIPELINE DISPATCH OPERATOR Work Phone: [facility] Work Phone: 04-18-2023 14:10-0500 Diastolic blood pressure 80 mm[Hg] Latia Sparks PIPELINE DISPATCH OPERATOR Work Phone: [facility] Work Phone: 04-18-2023 14:10-0500 Heart rate 96 /min Latia Sparks PIPELINE DISPATCH OPERATOR Work Phone: [facility] Work Phone: 04-18-2023 14:10-0500 Inhaled oxygen concentration 21 % Latia Sparks PIPELINE DISPATCH OPERATOR Work Phone: [facility] Work Phone: 04-18-2023 14:10-0500 Inhaled oxygen flow rate 0 L/min Latia Sparks PIPELINE DISPATCH OPERATOR Work Phone: [facility] Work Phone: 04-18-2023 14:10-0500 Respiratory rate 18 /min Latia Sparks PIPELINE DISPATCH OPERATOR Work Phone: [facility] Work Phone: 04-18-2023 14:10-0500 SaO2% (BldA) [Mass fraction] 96 % Latia Sparks PIPELINE DISPATCH OPERATOR Work Phone: [facility] Work Phone: 04-18-2023 14:10-0500 Systolic blood pressure 138 mm[Hg] Latia Sparks PIPELINE DISPATCH OPERATOR Work Phone: [facility] Work Phone: 11-15-2022 14:24-0400 Diastolic blood pressure 82 mm[Hg] Latia Sparks PIPELINE DISPATCH OPERATOR Work Phone: [facility] Work Phone: 11-15-2022 14:24-0400 Systolic blood pressure 142 mm[Hg] Latia Sparks PIPELINE DISPATCH OPERATOR Work Phone: [facility] Work Phone: 11-15-2022 14:17-0400 Body height 162.56 cm Latia Sparks PIPELINE DISPATCH OPERATOR Work Phone: [facility] Work Phone: 11-15-2022 14:17-0400 Body mass index (BMI) [Ratio] 37.4 kg/m2 Latia Sparks PIPELINE DISPATCH OPERATOR Work Phone: [facility] Work Phone: 11-15-2022 14:17-0400 Body surface area Derived from formula 2 m2 Latia Sparks PIPELINE DISPATCH OPERATOR Work Phone: [facility] Work Phone: 11-15-2022 14:17-0400 Body weight 98.88 kg Latia Sparks PIPELINE DISPATCH OPERATOR Work Phone: [facility] Work Phone: 11-15-2022 14:17-0400 Diastolic blood pressure 78 mm[Hg] Latia Sparks PIPELINE DISPATCH OPERATOR Work Phone: [facility] Work Phone: 11-15-2022 14:17-0400 Heart rate 94 /min Latia Bridger PIPELINE DISPATCH OPERATOR Work Phone: [facility] Work Phone: 11-15-2022 14:17-0400 SaO2% (BldA) [Mass fraction] 93 % Latia Sparks PIPELINE DISPATCH OPERATOR Work Phone: [facility] Work Phone: 11-15-2022 14:17-0400 Systolic blood pressure 143 mm[Hg] Latia Sparks PIPELINE DISPATCH OPERATOR Work Phone: [facility] Work Phone: 08-02-2022 10:15-0400 Body height 162.56 cm Latia Sparks PIPELINE DISPATCH OPERATOR Work Phone: [facility] Work Phone: 08-02-2022 10:15-0400 Body mass index (BMI) [Ratio] 36.7 kg/m2 Latia Sparks PIPELINE DISPATCH OPERATOR Work Phone: [facility] Work Phone: 08-02-2022 10:15-0400 Body surface area Derived from formula 2 m2 Latia Sparks PIPELINE DISPATCH OPERATOR Work Phone: [facility] Work Phone: 08-02-2022 10:15-0400 Body temperature 98.5 [degF] Latia Sparks PIPELINE DISPATCH OPERATOR Work Phone: [facility] Work Phone: 08-02-2022 10:15-0400 Body weight 97.07 kg Latia Sparks PIPELINE DISPATCH OPERATOR Work Phone: [facility] Work Phone: 08-02-2022 10:15-0400 Diastolic blood pressure 82 mm[Hg] Latia Sparks PIPELINE DISPATCH OPERATOR Work Phone: [facility] Work Phone: 08-02-2022 10:15-0400 Heart rate 98 /min Latia Sparks PIPELINE DISPATCH OPERATOR Work Phone: [facility] Work Phone: 08-02-2022 10:15-0400 Heart Rate Rhythm 1 1 Latia Sparks PIPELINE DISPATCH OPERATOR Work Phone: [facility] Work Phone: 08-02-2022 10:15-0400 Inhaled oxygen concentration 21 % Latia Sparks PIPELINE DISPATCH OPERATOR Work Phone: [facility] Work Phone: 08-02-2022 10:15-0400 Inhaled oxygen flow rate 0 L/min Latia Sparks PIPELINE DISPATCH OPERATOR Work Phone: [facility] Work Phone: 08-02-2022 10:15-0400 Respiratory rate 18 /min Latia Sparks PIPELINE DISPATCH OPERATOR Work Phone: [facility] Work Phone: 08-02-2022 10:15-0400 SaO2% (BldA) [Mass fraction] 96 % Latia Sparks PIPELINE DISPATCH OPERATOR Work Phone: [facility] Work Phone: 08-02-2022 10:15-0400 Systolic blood pressure 138 mm[Hg] Latia Sparks PIPELINE DISPATCH OPERATOR Work Phone: [facility] Work Phone: 07-23-2022 13:38-0500 Diastolic blood pressure 78 mm[Hg] Latia Sparks PIPELINE DISPATCH OPERATOR Work Phone: [facility] Work Phone: 07-23-2022 13:38-0500 Systolic blood pressure 142 mm[Hg] Latia Sparks PIPELINE DISPATCH OPERATOR Work Phone: [facility] Work Phone: 07-23-2022 12:13-0500 Body height 162.56 cm Latia Sparks PIPELINE DISPATCH OPERATOR Work Phone: [facility] Work Phone: 07-23-2022 12:13-0500 Body mass index (BMI) [Ratio] 36 kg/m2 Latia Sparks PIPELINE DISPATCH OPERATOR Work Phone: [facility] Work Phone: 07-23-2022 12:13-0500 Body surface area Derived from formula 2 m2 Latia Sparks PIPELINE DISPATCH OPERATOR Work Phone: [facility] Work Phone: 07-23-2022 12:13-0500 Body temperature 98.3 [degF] Latia Sparks PIPELINE DISPATCH OPERATOR Work Phone: [facility] Work Phone: 07-23-2022 12:13-0500 Body weight 95.26 kg Latia Sparks PIPELINE DISPATCH OPERATOR Work Phone: [facility] Work Phone: 07-23-2022 12:13-0500 Diastolic blood pressure 92 mm[Hg] Latia Sparks PIPELINE DISPATCH OPERATOR Work Phone: [facility] Work Phone: 07-23-2022 12:13-0500 Heart rate 118 /min Latia Sparks PIPELINE DISPATCH OPERATOR Work Phone: [facility] Work Phone: 07-23-2022 12:13-0500 Heart Rate Rhythm 1 1 Latia Sparks PIPELINE DISPATCH OPERATOR Work Phone: [facility] Work Phone: 07-23-2022 12:13-0500 Inhaled oxygen concentration 21 % Latia Sparks PIPELINE DISPATCH OPERATOR Work Phone: [facility] Work Phone: 07-23-2022 12:13-0500 Inhaled oxygen flow rate 0 L/min Latia Sparks PIPELINE DISPATCH OPERATOR Work Phone: [facility] Work Phone: 07-23-2022 12:13-0500 Respiratory rate 21 /min Latia Sparks PIPELINE DISPATCH OPERATOR Work Phone: [facility] Work Phone: 07-23-2022 12:13-0500 SaO2% (BldA) [Mass fraction] 96 % Latia Sparks PIPELINE DISPATCH OPERATOR Work Phone: [facility] Work Phone: 07-23-2022 12:13-0500 Systolic blood pressure 168 mm[Hg] Latia Sparks PIPELINE DISPATCH OPERATOR Work Phone: [facility] Work Phone: 09-21-2021 13:25-0400 Body height 162.56 cm Isidra Hernandez Other [employer] Other 09-21-2021 13:25-0400 Body mass index (BMI) [Ratio] 37.24 kg/m2 Isidra Hernandez Other [employer] Other 09-21-2021 13:25-0400 Body temperature 97.9 [degF] Isidra Hernandez Other [employer] Other 09-21-2021 13:25-0400 Body weight 98.43 kg Isidra Hernandez Other [employer] Other 09-21-2021 13:25-0400 Diastolic blood pressure 68 mm[Hg] Isidra Hernandez Other [employer] Other 09-21-2021 13:25-0400 Respiratory rate 20 /min Isidra Hernandez Other [employer] Other 09-21-2021 13:25-0400 SaO2% (BldA) [Mass fraction] 96 % Isidra Hernandez Other [employer] Other 09-21-2021 13:25-0400 Systolic blood pressure 146 mm[Hg] Isidra Hernandez Other [employer] Other Encounters Encounter Date Encounter Type Care Provider Facility Start: 06-10-2023 End: 06-11-2023 ambulatory EJ B APLING Not Available Start: 06-04-2023 End: 06-04-2023 FQHC visit, estab pt Latia Hoffmanim PIPELINE DISPATCH OPERATOR Work Phone: [facility] Work Phone: Start: 06-04-2023 End: 06-04-2023 General Latia Sparks PIPELINE DISPATCH OPERATOR Work Phone: [facility] Work Phone: Start: 05-27-2023 End: 05-28-2023 ambulatory EJ Alfred MADI Not Available Start: 05-17-2023 End: 05-17-2023 Evaluation and management of inpatient SUKUMAR A [facility] Start: 05-16-2023 End: 05-17-2023 Evaluation and management of inpatient [facility] Start: 05-16-2023 End: 05-16-2023 Evaluation and management of inpatient [facility] Start: 05-10-2023 End: 05-11-2023 ambulatory [facility] Start: 05-10-2023 End: 05-10-2023 Admission to same day surgery center Latia Sparks PIPELINE DISPATCH OPERATOR Work Phone: [facility] Work Phone: Start: 05-10-2023 End: 05-10-2023 FQ visit, estab pt Latia Sparks PIPELINE DISPATCH OPERATOR Work Phone: [facility] Work Phone: Start: 05-09-2023 Encounter for other preprocedural examination [facility] Start: 05-09-2023 End: 05-09-2023 Patient encounter procedure Pmh Pre-Admission Testing 2 [facility] - Pre Admit Comment on above: Preop examination (P rimary Dx); Type 2 diabetes mellitus without complication, without long-term current use of insulin ([facility]); Hypertension, unspecified type Start: 05-09-2023 End: 05-09-2023 Preprocedural examination done Pm 2 [facility] Start: 05-09-2023 End: 05-13-2023 ambulatory HARDY JAY [facility] Start: 05-07-2023 End: 05-07-2023 ambulatory HARDY JAY Not Available Start: 04-18-2023 End: 04-18-2023 FQHC visit, estab pt Janina Meghan [employer]S Work Phone: [facility] Work Phone: Start: 04-18-2023 End: 04-18-2023 FQHC visit, estab pt Latia Sparks PIPELINE DISPATCH OPERATOR Work Phone: [facility] Work Phone: Start: 11-15-2022 End: 11-15-2022 FQHC visit, estab pt Latia Sparks PIPELINE DISPATCH OPERATOR Work Phone: [facility] Work Phone: Start: 11-15-2022 End: 11-15-2022 General Latia Sparks PIPELINE DISPATCH OPERATOR Work Phone: [facility] Work Phone: Start: 11-09-2022 End: 11-10-2022 ambulatory LATIA SPARKS [facility] Start: 11-08-2022 End: 11-08-2022 FQHC visit, estab pt Janina Meghan [employer] Work Phone: [facility] Work Phone: Start: 11-08-2022 End: 11-08-2022 Encounter for preprocedural laboratory examination Latia Sparks PIPELINE DISPATCH OPERATOR Work Phone: [facility] Work Phone: Start: 11-08-2022 End: 11-08-2022 Nursing evaluation of patient and report Latia Sparks PIPELINE DISPATCH OPERATOR Work Phone: [facility] Work Phone: Start: 09-26-2022 End: 09-26-[address] DOCTOR WILSON Facility:H1 Start: 09-25-2022 End: 09-25-2022 ambulatory NARENDRANATH LAKSHMIPATHY . Facility:H1 Start: 08-28-2022 End: 08-29-2022 ambulatory NARENDRANATH LAKSHMIPATHY . Facility:H1 Start: 08-14-2022 End: 08-14-2022 ambulatory NARENDRANATH LAKSHMIPATHY . Facility:H1 Start: 08-02-2022 End: 08-02-2022 FQHC visit, estab pt Latia Sparks PIPELINE DISPATCH OPERATOR Work Phone: [facility] Work Phone: Start: 07-27-2022 End: 07-28-2022 ambulatory GERALDO PRADO Facility:H1 Start: 07-23-2022 End: 07-23-2022 FQHC visit, estab pt Cinthia Adolph OYSTER FLOATER Work Phone: [facility] Work Phone: Start: 07-23-2022 End: 07-23-2022 Adult health examination Latia Sparks PIPELINE DISPATCH OPERATOR Work Phone: [facility] Work Phone: Start: 07-23-2022 End: 07-23-2022 Encounter for preprocedural laboratory examination Latia Sparks PIPELINE DISPATCH OPERATOR Work Phone: [facility] Work Phone: Start: 07-23-2022 End: 07-23-2022 FQHC visit new patient Latia Sparks PIPELINE DISPATCH OPERATOR Work Phone: [facility] Work Phone: Start: 07-23-2022 End: 07-24-2022 ambulatory LATIA [facility] Start: 07-23-2022 End: 07-24-2022 Encounter for general adult medical examination without abnormal findings LATIA [facility] Start: 07-23-2022 End: 07-23-2022 Subsequent hospital visit by physician JANINE HUMPHRIES [facility] Start: 07-19-2022 End: 07-20-[address] DOCTOR WILSON Facility:H1 Start: 07-18-2022 End: 07-18-[address] DOCTOR WILSON Facility:H1 Start: 07-17-2022 End: 07-18-2022 ambulatory GERALDO PRADO Facility:H1 Start: 07-12-2022 ambulatory Latia Sparks PIPELINE DISPATCH OPERATOR [facility] Start: 09-21-2021 End: 09-21-2021 ambulatory Isidra Hernandez Other [employer] Other Start: 09-21-2021 Office outpatient ne w 20 minutes Isidra Hernandez [facility] Start: 09-21-2021 End: 09-21-2021 Patient encounter procedure MD Constantine Hernandez Work Phone: [facility] Start: 05-21-2018 End: 05-26-2018 Patient encounter procedure STIVEN ANDINO Facility:[facility] Start: 01-08-2018 Patient encounter Morgan Barcenas [facility] Start: 04-21-2014 Documentation procedure Aram Esquivel MD Work Phone: [facility] Start: 04-21-2014 Historic EMR Aram soto MD Work Phone: [facility] Procedures Date Procedure Procedure Detail Performing Clinician Start: 06-04-2023 Current tobacco smoker Latia Sparks FN P Work Phone: Start: 06-04-2023 FQHC visit, estab pt Latia Sparks PIPELINE DISPATCH OPERATOR Work Phone: Start: 06-04-2023 Most recent diastolic blood pressure < 80 mm hg Latia Sparks PIPELINE DISPATCH OPERATOR Work Phone: Start: 06-04-2023 Most recent systolic blood press 130-139mm hg Latia Sparks PIPELINE DISPATCH OPERATOR Work Phone: Start: 06-04-2023 Orthopedic Surgery Back Latia Sparks F INSPECTOR TOOL Work Phone: Start: 06-04-2023 Pt scrnd tobacco use rcvd tobacco cessation talk Latia Sparks PIPELINE DISPATCH OPERATOR Work Phone: Start: 05-10-2023 Current tobacco smoker Latia Sparks FN P Work Phone: Start: 05-10-2023 [facility], estab pt Latia Sparks PIPELINE DISPATCH OPERATOR Work Phone: Start: 05-10-2023 Most recent diastolic blood pressure < 80 mm hg Latia Sparks PIPELINE DISPATCH OPERATOR Work Phone: Start: 05-10-2023 Most recent systolic blood press 130-139mm hg Latia Sparks PIPELINE DISPATCH OPERATOR Work Phone: Start: 05-10-2023 Pt scrnd tobacco use rcvd tobacco cessation talk Latia Sparks PIPELINE DISPATCH OPERATOR Work Phone: Start: 04-18-2023 Current tobacco smoker Latia Sparks FN P Work Phone: Start: 04-18-2023 [facility], MH estab pt Janina Christianson LI SW-S Work Phone: Start: 04-18-2023 Gluc bld gluc mntr dev cleared fda spec home use Latia Sparks PIPELINE DISPATCH OPERATOR Work Phone: Start: 04-18-2023 Most recent diastolic blood pressure 80-89 mm hg Latia Sparks PIPELINE DISPATCH OPERATOR Work Phone: Start: 04-18-2023 Most recent hg a1c>equal to 7.0%&<8.0% Latia Sparks PIPELINE DISPATCH OPERATOR Work Phone: Start: 04-18-2023 Most recent systolic blood press 130-139mm hg Latia Sparks PIPELINE DISPATCH OPERATOR Work Phone: Start: 04-18-2023 Psychotherapy w/patient 30 minutes Janina Meghan OYSTER FLOATER-S Work Phone: Start: 04-18-2023 Pt scrnd tobacco use rcvd tobacco cessation talk Latia Sparks PIPELINE DISPATCH OPERATOR Work Phone: Start: 11-15-2022 FQHC visit, estab pt Latia Sparks PIPELINE DISPATCH OPERATOR Work Phone: Start: 11-15-2022 Most recent diastolic blood pressure 80-89 mm hg Latia Sparks PIPELINE DISPATCH OPERATOR Work Phone: Start: 11-15-2022 Most recent systolic blood pres>/equal 140 mm hg Latia Sparks PIPELINE DISPATCH OPERATOR Work Phone: Start: 11-08-2022 Collection venous blood venipuncture Latia Sparks PIPELINE DISPATCH OPERATOR Work Phone: Start: 11-08-2022 FQ visit, MH estab pt Janina Christianson LI SW-S Work Phone: Start: 11-08-2022 Psychotherapy w/patient 30 minutes Janina Christianson OYSTER FLOATER-S Work Phone: Start: 08-02-2022 Counseling Visit For: Consulting For Explanation of Examination Or Test Findings Latia Sparks PIPELINE DISPATCH OPERATOR Work Phone: Start: 08-02-2022 FQHC visit, estab pt Latia Sparks PIPELINE DISPATCH OPERATOR Work Phone: Start: 08-02-2022 Most recent diastolic blood pressure 80-89 mm hg Latia Sparks PIPELINE DISPATCH OPERATOR Work Phone: Start: 08-02-2022 Most recent systolic blood press 130-139mm hg Latia Sparks PIPELINE DISPATCH OPERATOR Work Phone: Start: 07-23-2022 Cholecystectomy Latia Sparks PIPELINE DISPATCH OPERATOR Work Phone: Start: 07-23-2022 Collection venous blood venipuncture Latia Sparks PIPELINE DISPATCH OPERATOR Work Phone: Start: 07-23-2022 FQ visit, MH estab pt Cinthia Farfan LIS W-S Work Phone: Start: 07-23-2022 Hysterectomy Latia Sparks PIPELINE DISPATCH OPERATOR Work Phone: Start: 07-23-2022 Ligation of fallopian tube Latia Yasmini m PIPELINE DISPATCH OPERATOR Work Phone: Start: 07-23-2022 Most recent diastol blood pres >/equal 90 mm hg Latia Sparks PIPELINE DISPATCH OPERATOR Work Phone: Start: 07-23-2022 Most recent hg a1c>equal to 8.0%& Latia Sparks PIPELINE DISPATCH OPERATOR Work Phone: Start: 07-23-2022 Most recent systolic blood pressure <130 mm hg Latia Sparks PIPELINE DISPATCH OPERATOR Work Phone: Start: 07-23-2022 Pt-focused hlth risk assmt score doc stnd instrm Latia Sparks PIPELINE DISPATCH OPERATOR Work Phone: Start: 07-23-2022 Urine albumin semiquantitative Latia Sparks PIPELINE DISPATCH OPERATOR Work Phone: Start: 07-23-2022 Hemoglobin glycosylated a1c Latia Ibrah im PIPELINE DISPATCH OPERATOR Work Phone: Start: 07-23-2022 Hepatitis c antibody Latia Sparks PIPELINE DISPATCH OPERATOR Work Phone: Start: 07-23-2022 IMMATURE PLATELET FRACTION Latia Andree m BANKRUPTCY LEGAL ASSISTANT - POULTRY HUSBANDRY TEACHER Work Phone: Start: 09-21-2021 X-ray of left [...] Adult BMI Screening Adult BMI Screen ing [facility] Start: 05-09-2024 Tobacco Screening Tobacco Screening [facility] Start: 09-04-2023 FQHC visit, estab pt Medical E stablished Patient [facility] Work Phone: Start: 07-18-2023 FQHC visit, estab pt Medical E stablished Patient [facility] Work Phone: Start: 06-21-2023 FQHC visit, estab pt Medical E stablished Patient [facility] Work Phone: Start: 06-05-2023 Dental Comp Exam [facility] Work Phone: Start: 06-04-2023 FQHC visit, estab pt Medical E stablished Patient [facility] Work Phone: Start: 06-04-2023 End: 06-04-2023 Patient education based on identified need [facility] Start: 05-16-2023 End: 05-16-2023 Admission to same day surgery center 05/16/2023 2:00 PM EST - 05/16/2023 3:15 PM EST Surgery [facility] [address] [place] [id number] Hardy Jay, DO [address] [place] [address] BALLOON KYPHOPLASTY SPINE [20088 (CPT )] [facility] Comment on above: BALLOON KYPHOPLASTY SPINE [72347 (CPT )] Start: 05-16-2023 End: 05-16-2023 Perq vert agmntj cavity crtj uni/bi cannulation B[employer] KYPHOPLAST[employer] SPINE copression fracture L2 05/16/2023 2:00 PM EST [facility] Start: 05-16-2023 Subsequent hospital visit by physician 05/16/2023 2:00 PM EST Hospital Encounter [facility] [address] [place] [id number] Hardy Jay, [address] [place] [address] [facility] Start: 05-10-2023 End: 05-10-2023 Patient education based on identified need [facility] Start: 04-18-2023 End: 04-18-2023 Patient education based on identified need [facility] offered active and supportive listening, validated emotions and feelings, and processed current stressors with being in the hospital. ~[facility] encouraged patient to utilize positive supports and coping skills. ~ [facility] Start: 04-18-2023 End: 04-18-2023 Patient education based on identified need [facility] Start: 01-18-2023 Influenza vaccination Influenza Vacc ine [facility] Start: 11-15-2022 End: 11-15-2022 Patient education based on identified need [facility] Start: 11-15-2022 Lipid 1996 panel - Serum or Plasma [facility] Start: 11-08-2022 End: 11-08-2022 Patient education based on identified need [facility] encouraged patient to utilize positive supports and coping skills. ~[facility] encouraged patient to contact [facility] if they need any additional support or resources. ~ [facility] Start: 11-01-2022 FQHC visit, estab pt Medical E stablished Patient [facility] Work Phone: Start: 10-18-2022 ambulatory Ambulatory Facility:H 1 Start: 08-02-2022 FQHC visit, estab pt Medical E stablished Patient [facility] Work Phone: Start: 08-02-2022 End: 08-02-2022 Patient education based on identified need [facility] Start: 08-02-2022 End: 08-02-2022 Provider instructions for treatment Intervention and counseling on cessation of tobacco use, 3-10 minutes Discussed medication and nicotine replacement for tobacco cessation [facility] Start: 07-30-2022 CBC panel - Blood by Automated count [facility] Start: 07-30-2022 Lipid 1996 panel - Serum or Plasma LIPID PROFILE [facility] Start: 07-23-2022 End: 07-23-2022 Patient education based on identified need [facility] Start: 07-23-2022 End: 07-23-2022 Provider instructions for treatment Intervention and counseling on cessation of tobacco use, 3-10 minutes Discussed medication and nicotine replacement for tobacco cessation [facility] Start: 12-18-2021 Influenza vaccination Flu vaccine (# 1) [employer] Start: 2017 Fall Risk Screening [facility] Start: 1971 DTaP,Tdap and Td Vaccines (1 - Tdap) DTaP,Tdap and Td Vaccines (1 - Tdap) [facility] Start: 1971 DTaP/Tdap/Td vaccine (1 - Tdap) DTaP/Tdap/Td vaccine (1 - Tdap) [facility] [employer] Start: 1970 Adult BMI Follow Up Plan Adult BMI Follow Up Plan [facility] Start: 1970 Diabetic foot examination [facility] Start: 1964 Depression Scre[facility] Start: 1952 COVID-19 Vaccine (#1) COVID-19 Vacci ne (#1) [facility] [employer] Start: 1952 Glaucoma screening Diabetic Op [facility]thal[facility] Start: 1952 Medicare Annual Wellness Visit Medicare [facility] Well[facility] Start: 1952 Tobacco Counseling Tobacco Counselin g [facility] [employer] [facility] Immunizations Immunization Date Immunization Notes Care Provider Asiya tolbert 02-14-2017 influenza virus vacc ine, unspecified formulation Pmh 2 [facility] [employer] [facility] Payers Date Payer Category Payer Medicare 2019 Medicaid MEDICAID [facility] M EDICAID [id number] 2019-Present [phone] [address] [place] [address] [id number] 2018 Medicare [id number] 2014 Private Health Insurance [id number] 2014 Unknown [id number] 2.16.840.1.602716.19 1959 Medicaid [id number] 1952 Unknown [id number] 2.16.840.1.402735.3.579.2. 627 1952 Unknown [id number] 2.16.840.1.425155.3.579.2. 593 1952 Unknown [id number] 2.16.840.1.369171.3.579.2. 593 1952 Unknown [id number] 2.16.840.1.382827.3.579.2. 593 1952 Unknown [id number] 2.16.840.1.694282.3.579.2. 593 1952 Unknown [id number] 2.16.840.1.565632.3.579.2. 593 1952 Unknown [id number] 2.16.840.1.477196.3.579.2. 593 1952 Unknown [id number] 2.16.840.1.463673.3.579.2. 593 1952 Unknown [id number] 2.16.840.1.015800.3.579.2. 593 1952 Unknown [id number] 2.16.840.1.623561.3.579.2. 593 1952 Unknown [id number] 2.16.840.1.812168.3.579.2. 175 1952 Unknown [id number] 2.16.840.1.589892.3.579.2. 175 1952 Unknown [id number] 2.16.840.1.188021.3.579.2. 1286 1952 Unknown [id number] 2.16.840.1.965594.3.579.2. 1286 1952 Unknown [id number] 2.16.840.1.922183.3.579.2. 1286 1952 Unknown [id number] 2.16.840.1.355089.3.579.2. 1286 1952 Unknown [id number] 2.16.840.1.889641.3.579.2. 1286 1952 Unknown [id number] 2.16.840.1.119796.3.579.2. 1286 1952 Unknown [id number] 2.16.840.1.590748.3.579.2. 1286 1952 Unknown [id number] 2.16.840.1.546398.3.579.2. 1286 1952 Unknown [id number] 2.16.840.1.016834.3.579.2. 1286 1952 Unknown [id number] 2.16.840.1.480860.3.579.2. 1259 1952 Unknown [id number] 2.16.840.1.033226.3.579.2. 1259 1952 Unknown [id number] 2.16.840.1.419035.3.579.2. 1259 1952 Unknown [id number] 2.16.840.1.010746.3.579.2. 1259 1952 Unknown [id number] 2.16.840.1.685892.3.579.2. 1259 1952 Unknown [id number] 2.16.840.1.763874.3.579.2. 1259 Self-pay Unknown 1 - [facility] hcare Dual Complet [id number] 2.16.840.1.103376.3.140.1. 67123.5.10.6.3 Social History Date Type Detail Facility Start: 1950 Sex Assigned At Female [facility] Start: 10-29-2019 End: 06-30-2020 Sex Assigned At App [employer] Other Assertion Currently not se xually active (finding) [facility] Assertion Cigarette smoker (finding) [facility] Assertion Smoker (finding) [facility] Assertion Moderate cigaret te smoker (10-19 cigs/day) (finding) [facility] Assertion Exposure to poll ution (event) [facility] Assertion Gender identity finding (finding) [facility] Assertion Finding of sexua l orientation (finding) [facility] Tobacco smoking status Unknown if ever smoked [facility] Assertion History of disor vivian (situation) [facility] Assertion Emotional stress (finding) [facility] Assertion Finding of resid ence and accommodation circumstances (finding) [facility] Assertion Light cigarette smoker (1-9 cigs/day) (finding) [facility] Start: 1950 Sex Assigned At Not on file [employer] Work Phone: Start: 05-09-2023 Tobacco smoking status NHIS Smokes tobacco daily [facility] Start: 06-30-2020 End: 05-09-2023 Cigarettes smoked current (pack per day) - Reported 0.3 [facility] Start: 05-09-2023 Tobacco use and exposure Smokeless tobacco non-user [facility] Start: 05-09-2023 Alcohol intake Lifetime non-d aurora (finding) [facility] How often to you have a drink containing alcohol? Never [facility] Average Number of Drinks Not on file [facility] Start: 05-09-2023 Tobacco Comment 4 cigarettes per day [facility] NEGATED: Highlighted row - - [facility] Work Phone: NEGATED: Highlighted row Assertion Current drinker of alcohol (finding) [facility] NEGATED: Highlighted row Assertion Finding relating to drug misuse behavior (finding) [facility] NEGATED: Highlighted row Assertion [facility] NEGATED: Highlighted row Assertion Sexually active (finding) [facility] NEGATED: Highlighted row Assertion Exposure to pollution (event) [facility] Medical Equipment Procedure Code Equipment Code Equipment Origin al Text Equipment Identifier Dates BD Pen Needle Na no 2nd Gen 32G X 4 MM Miscellaneous [id number] Start: 07-23-2022 End: 08-02-2022 BD Pen Needle Na no 2nd Gen 32G X 4 MM Miscellaneous [id number] Start: 08-28-2022 BD Pen Needle Na no 2nd Gen 32G X 4 MM Miscellaneous [id number] Start: 08-22-2022 End: 08-02-2022 Functional Status Date Assessment Result Facility NEGATED: Highlighted row Functional performance Functional status health issues are not documented Disease [facility] Work Phone: Mental Status Date Assessment Result Facility Cognitive function Moderate recu rrent major depression Moderate recurrent major depression (disorder) [facility] Work Phone: NEGATED: Highlighted row Cognitive function [Interpretation] Cognitive status health issues are not documented Disease [facility] Work Phone: Clinical Notes 09-21-2021 to 06-18-2023 Note Date & Type Note Facility 06-18-2023 Instructions Includes: Instructions for all patient encounters Intervention and counseling on cessation of tobacco use, 3-10 minutes Discussed medication and nicotine replacement for tobacco cessation Last Documented On 3 1:05PM ; [facility] Intervention and counseling on cessation of tobacco use, 3-10 minutes Discussed medication and nicotine replacement for tobacco cessation Last Documented On 3 1:02PM ; [facility] Intervention and counseling on cessation of tobacco use, 3-10 minutes Discussed medication and nicotine replacement for tobacco cessation Last Documented On 3 1:13PM ; [facility] Education and Decision Aids were provided during visit for: Discussed nutritional needs 35.4 teach healthy choices including fruits and vegetables Last Documented On 4 10:44AM ; [facility] Patient education about a pr oper diet Last Documented On 4 10:44AM ; [facility] Patient education about phys ical activity benefits Last Documented On 4 11:51AM ; [facility] Patient education about ment al health Last Documented On 4 11:51AM ; [facility] Patient education about diab etes Take your medications every day, even if you feel good. ~Check your blood sugar ____ times per day and write it on your log. ~Limit the amount of pastas, breads, cookies, candies, cakes and soda so your sugar is better controlled Last Documented On 4 11:51AM ; [facility] Patient education about nasa l irrigation Last Documented On 4 11:51AM ; [facility] Discussed concerns about exe rcise : promote physical activity Last Documented On 4 10:44AM ; [facility] Discussed nutritional needs teach healthy choices including fruits and vegetables Last Documented On 3 10:09AM ; [facility] Patient education about a pr oper diet 35.7 Last Documented On 3 10:09AM ; [facility] Discussed concerns about exe rcise : promote physical activity Last Documented On 3 10:09AM ; [facility] and suppo rtive listening, validated emotions and feelings, and processed current stressors with being in the hospital. ~P encouraged patient to utilize positive supports and coping skills. ~ Last Documented On 3 1:42PM ; [facility] Discussed nutritional needs teach healthy choices including fruits and vegetables Last Documented On 3 2:16PM ; [facility] Patient education about a pr oper diet 35.7 Last Documented On 3 2:16PM ; [facility] Patient education about phys ical activity benefits Last Documented On 3 10:09PM ; [facility] Patient education about medi cation Last Documented On 3 10:09PM ; [facility] Patient education about ment al health Last Documented On 3 10:09PM ; [facility] Discussed concerns about exe rcise : promote physical activity Last Documented On 3 2:16PM ; [facility] Not requesting contraception Last Documented On 3 2:16PM ; [facility] Discussed nutritional needs teach healthy choices including fruits and vegetables Last Documented On 3 2:25PM ; [facility] Patient education about a pr oper diet 37.4 Last Documented On 3 2:25PM ; [facility] Patient education about phys ical activity benefits Last Documented On 3 2:50PM ; [facility] Patient education about medi cation Last Documented On 3 2:50PM ; [facility] Patient education about ment al health Last Documented On 3 2:50PM ; [facility] Discussed concerns about exe rcise : promote physical activity Last Documented On 3 2:25PM ; [facility] encouraged patient to ut ilize positive supports and coping skills. ~[facility] encouraged patient to contact [facility] if they need any additional support or resources. ~ Last Documented On 3 10:03PM ; [facility] Discussed nutritional needs teach healthy choices including fruits and vegetables Last Documented On 3 10:23AM ; [facility] Patient education about a pr oper diet 36.7 Last Documented On 3 10:23AM ; [facility] Patient education about phys ical activity benefits Last Documented On 3 1:07PM ; [facility] Patient education about medi cation Last Documented On 3 1:07PM ; [facility] Patient education about ment al health Last Documented On 3 1:07PM ; [facility] Discussed concerns about exe rcise : promote physical activity Last Documented On 3 10:23AM ; [facility] introduced patient to [facility] integrated model of care. ~[facility] offered active and supportive listening, normalized emotions and feelings, and processed current stressors. ~Discussed healthy coping skills and positive supports in patient's life. ~Discussed healthy lifestyle behaviors. ~ Last Documented On 3 12:10AM ; [facility] Discussed nutritional needs 36 teach healthy choices including fruits and vegetables Last Documented On 3 12:20PM ; [facility] Patient education about a pr oper diet 36 Last Documented On 3 12:20PM ; [facility] Discussed concerns about exe rcise : promote physical activity Last Documented On 3 12:20PM ; [facility] Referred Patient to a Diabet es Self-Management Program Last Documented On 3 1:46PM ; [facility] Work Phone: [phone] 560-835401-16-2024 Evaluation note Includes: Assessments for all patient encounters Findings Encounter Date [Z68.35 - Body mass index [B KS] 35.0-35.9, adult] assessment of body mass index Medical Established Patient with Latia Sparks PIPELINE DISPATCH OPERATOR 06/04/2023 Last Documented On 4 11:53AM ; [facility] Nicotine dependence Medical Established Patient with Latia Sparks PIPELINE DISPATCH OPERATOR 06/04/2023 Last Documented On 4 11:53AM ; [facility] [Z68.35 - Body mass index [B KS] 35.0-35.9, adult] assessment of body mass index Medical Established Patient with Latia Sparks PIPELINE DISPATCH OPERATOR 05/10/2023 Last Documented On 3 10:52AM ; [facility] Nicotine dependence Medical Established Patient with Latia Sparks PIPELINE DISPATCH OPERATOR 05/10/2023 Last Documented On 3 10:52AM ; [facility] Visit for: preoperative exam Medical Est ablished Patient with Latia Sparks PIPELINE DISPATCH OPERATOR 05/10/2023 Last Documented On 3 10:52AM ; [facility] Moderate recurrent major depression BH E stablished Patient with Janina Meghan OYSTER FLOATER-S 04/18/2023 Last Documented On 3 1:42PM ; [facility] [Z68.35 - Body mass index [B KS] 35.0-35.9, adult] assessment of body mass index Medical Established Patient with Latia Sparks PIPELINE DISPATCH OPERATOR 04/18/2023 Last Documented On 3 10:11PM ; [facility] Nicotine dependence Medical Established Patient with Latia Sparks PIPELINE DISPATCH OPERATOR 04/18/2023 Last Documented On 3 10:11PM ; [facility] 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 Medical Established Patient with Latia Sparks PIPELINE DISPATCH OPERATOR 04/18/2023 Last Documented On 3 10:11PM ; [facility] Assessment of body mass index Medical Es tablished Patient with Latia Sparks PIPELINE DISPATCH OPERATOR 11/15/2022 Last Documented On 3 2:53PM ; [facility] Generalized anxiety disorder Establis hed Patient with Janina Meghan OYSTER FLOATER-S 11/08/2022 Last Documented On 3 10:03PM ; [facility] Hyperlipidemia Nurse Visit with Latia Sparks [facility] 11/08/2022 Last Documented On 3 2:16PM ; [facility] Venipuncture was performed Nurse Visit with Kathia Sparks [facility] 11/08/2022 Last Documented On 3 2:16PM ; [facility] [Z68.36 - Body mass index [B KS] 36.0-36.9, adult] assessment of body mass index Medical Established Patient with Latia Sparks PIPELINE DISPATCH OPERATOR 08/02/2022 Last Documented On 3 1:36PM ; [facility] Intervention and counseling on cessation of tobacco use, 3-10 minutes Discussed medication and nicotine replacement for tobacco cessation Medical Established Patient with Latia Sparks [facility] 08/02/2022 Last Documented On 3 1:36PM ; [facility] Visit for: person consulting for explanation of examination or test findings Medical Established Patient with Latia Sparks [facility] 08/02/2022 Last Documented On 3 1:36PM ; [facility] Generalized anxiety disorder Establis hed Patient with Cinthia Stone OYSTER FLOATER-S 07/23/2022 Last Documented On 3 12:17AM ; [facility] Intervention and counseling on cessation of tobacco use, 3-10 minutes Discussed medication and nicotine replacement for tobacco cessation Established Patient with Cinthia Stone OYSTER FLOATER-S 07/23/2022 Last Documented On 3 12:17AM ; [facility] Moderate recurrent major depression E stablished Patient with Cinthia Stone OYSTER FLOATER-S 07/23/2022 Last Documented On 3 12:17AM ; [facility] Nicotine dependence Established Patient with Cinthia Stone OYSTER FLOATER-S 07/23/2022 Last Documented On 3 12:17AM ; [facility] Primary insomnia Established Patient with Deysi pugh Stone OYSTER FLOATER-S 07/23/2022 Last Documented On 3 12:17AM ; [facility] [Z68.36 - Body mass index [B KS] 36.0-36.9, adult] assessment of body mass index Medical New Patient with Latia GREENP 07/23/2022 Last Documented On 3 2:32PM ; [facility] Diabetes Risk Test Score was nine score 07/23/2022 Medical New Patient with Latia Sparks PIPELINE DISPATCH OPERATOR 07/23/2022 Last Documented On 3 2:32PM ; [facility] Intervention and counseling on cessation of tobacco use, 3-10 minutes Discussed medication and nicotine replacement for tobacco cessation Medical New Patient with Latia Sparks PIPELINE DISPATCH OPERATOR 07/23/2022 Last Documented On 3 2:32PM ; [facility] Screening for Hep C Medical New Patient with Nad yelitza Sparks PIPELINE DISPATCH OPERATOR 07/23/2022 Last Documented On 3 2:32PM ; [facility] Screening for HIV Medical New Patient with Hiren Sparks PIPELINE DISPATCH OPERATOR 07/23/2022 Last Documented On 3 2:32PM ; [facility] Venipuncture was performed Medical New Patient w dmitry Sparks [facility] 07/23/2022 Last Documented On 3 2:32PM ; [facility] Visit for routine adult H&P without abnormal findings Medical New Patient with Latia Sparks PIPELINE DISPATCH OPERATOR 07/23/2022 Last Documented On 3 2:32PM ; [facility] Work Phone: 1(355) 818-347701-16-2024 Progress note* Progress note Date Encounter Last Documented by 06/04/2023 Medical Established Patient Last documented on 06/04/2023; 11:53 AM, Latia Sparks [facility]; [facility] Active Problems & Conditions - 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 Referred Here Referred by emergency room back surgery [facility] follow up. Prior encounters. - Data to [...] to physical therapy. The patient lives at [facility], reporting the nurses at the facility have been giving her daily [place] instead of twice a day. The patient has been encouraged to speak with DON at the [facility]. Follow up in 3 months Current [...] previous hospitalizations. A recent examination by an brusher tender 07/21/2022 results in eye. Recent eye exam [...] dhaliwal) and gender identity Female. Allergies - [place] Reaction: Hives / Urticaria, Shock - Mellaril [...] BP-Sitting R138/80 mmHg BP Cuff SizeRegular Pulse Rate-Jxmijcn80 bpm Vbupfi32 in Cfqdns831 lbs Body Mass Index35.4 kg/m2 Body Surface Area2 m2 Oxygen Krrnbrmbgb28 % O2 DeviceNone (Room Air) PeA443 % Vital Signs: - Systolic blood pressure [...] in the COVID-19 vaccination at this time. [facility]01-16-2024 Instructions Includes: Instructions for all patient encounters Instructions to patient Intervention and counseling on cessation of tobacco use, 3-10 minutes Discussed medication and nicotine replacement for tobacco cessation Last Documented On 3 1:05PM ; [facility] Intervention and counseling on cessation of tobacco use, 3-10 minutes Discussed medication and nicotine replacement for tobacco cessation Last Documented On 3 1:02PM ; [facility] Intervention and counseling on cessation of tobacco use, 3-10 minutes Discussed medication and nicotine replacement for tobacco cessation Last Documented On 3 1:13PM ; [facility] Education and Decision Aids were provided during visit for: Discussed nutritional needs 35.4 teach healthy choices including fruits and vegetables Last Documented On 4 10:44AM ; [facility] Patient education about a pr oper diet Last Documented On 4 10:44AM ; [facility] Patient education about phys ical activity benefits Last Documented On 4 11:51AM ; [facility] Patient education about ment al health Last Documented On 4 11:51AM ; [facility] Patient education about diab etes Take your medications every day, even if you feel good. ~Check your blood sugar ____ times per day and write it on your log. ~Limit the amount of pastas, breads, cookies, candies, cakes and soda so your sugar is better controlled Last Documented On 4 11:51AM ; [facility] Patient education about nasa l irrigation Last Documented On 4 11:51AM ; [facility] Discussed concerns about exe rcise : promote physical activity Last Documented On 4 10:44AM ; [facility] Discussed nutritional needs teach healthy choices including fruits and vegetables Last Documented On 3 10:09AM ; [facility] Patient education about a pr oper diet 35.7 Last Documented On 3 10:09AM ; [facility] Discussed concerns about exe rcise : promote physical activity Last Documented On 3 10:09AM ; [facility] offered active and suppo rtive listening, validated emotions and feelings, and processed current stressors with being in the hospital. ~P encouraged patient to utilize positive supports and coping skills. ~ Last Documented On 3 1:42PM ; [facility] Discussed nutritional needs teach healthy choices including fruits and vegetables Last Documented On 3 2:16PM ; [facility] Patient education about a pr oper diet 35.7 Last Documented On 3 2:16PM ; [facility] Patient education about phys ical activity benefits Last Documented On 3 10:09PM ; [facility] Patient education about medi cation Last Documented On 3 10:09PM ; [facility] Patient education about ment al health Last Documented On 3 10:09PM ; [facility] Discussed concerns about exe rcise : promote physical activity Last Documented On 3 2:16PM ; [facility] Not requesting contraception Last Documented On 3 2:16PM ; [facility] Discussed nutritional needs teach healthy choices including fruits and vegetables Last Documented On 3 2:25PM ; [facility] Patient education about a pr oper diet 37.4 Last Documented On 3 2:25PM ; [facility] Patient education about phys ical activity benefits Last Documented On 3 2:50PM ; [facility] Patient education about medi cation Last Documented On 3 2:50PM ; [facility] Patient education about ment al health Last Documented On 3 2:50PM ; [facility] Discussed concerns about exe rcise : promote physical activity Last Documented On 3 2:25PM ; [facility] encouraged patient to ut ilize positive supports and coping skills. ~[facility] encouraged patient to contact [facility] if they need any additional support or resources. ~ Last Documented On 3 10:03PM ; [facility] Discussed nutritional needs teach healthy choices including fruits and vegetables Last Documented On 3 10:23AM ; [facility] Patient education about a pr oper diet 36.7 Last Documented On 3 10:23AM ; [facility] Patient education about phys ical activity benefits Last Documented On 3 1:07PM ; [facility] Patient education about medi cation Last Documented On 3 1:07PM ; [facility] Patient education about ment al health Last Documented On 3 1:07PM ; [facility] Discussed concerns about exe rcise : promote physical activity Last Documented On 3 10:23AM ; [facility] introduced patient to [facility] integrated model of care. ~[facility] offered active and supportive listening, normalized emotions and feelings, and processed current stressors. ~Discussed healthy coping skills and positive supports in patient's life. ~Discussed healthy lifestyle behaviors. ~ Last Documented On 3 12:10AM ; [facility] Discussed nutritional needs 36 teach healthy choices including fruits and vegetables Last Documented On 3 12:20PM ; [facility] Patient education about a pr oper diet 36 Last Documented On 3 12:20PM ; [facility] Discussed concerns about exe rcise : promote physical activity Last Documented On 3 12:20PM ; [facility] Referred Patient to a Diabet es Self-Management Program Last Documented On 3 1:46PM ; [facility] Work Phone: 1(433) 315-220212-22-2023 Progress note* Progress note Date Encounter Last Documented by 05/10/2023 Medical Established Patient Last documented on 05/10/2023; 10:52 AM, Latia GREENP; [facility] Active Problems & Conditions - E11.610 [...] needs refill on Fenofibrate. Pt went to [facility] on 05/02 and they found compression fractures on back. Referred Here Not referred by urgent care clinic and not the emergency room. Prior encounters. - Data to be reviewed: clinical lab tests [facility]scan on 05/02 on back [facility] History of Present Illness Tunde Jack [...] previous hospitalizations. A recent examination by an brusher tender 07/21/2022. Recent eye exam showed no apparent [...] active. Sexual orientation Straight (not lesbian or dhaliwla) and gender identity Female. Allergies - Tai [...] BP-Sitting R133/76 mmHg BP Cuff SizeLarge Pulse Rate-Psjkjld454 bpm Temp-Oral97.8 F Tiywss54 in Risttg909 lbs 12.8 oz Body Mass Index35.7 kg/m2 Body Surface Area2 m2 Oxygen Zznfyhwhbn69 % O2 DeviceNone (Room Air) GwG871 % Vital Signs: - Systolic blood pressure [...] in the COVID-19 vaccination at this time. [facility]12-22-2023 Instructions Includes: Instructions for all patient encounters Instructions to patient Intervention and counseling on cessation of tobacco use, 3-10 minutes Discussed medication and nicotine replacement for tobacco cessation Last Documented On 3 1:05PM ; [facility] Intervention and counseling on cessation of tobacco use, 3-10 minutes Discussed medication and nicotine replacement for tobacco cessation Last Documented On 3 1:02PM ; [facility] Intervention and counseling on cessation of tobacco use, 3-10 minutes Discussed medication and nicotine replacement for tobacco cessation Last Documented On 3 1:13PM ; [facility] Education and Decision Aids were provided during visit for: Discussed nutritional needs teach healthy choices including fruits and vegetables Last Documented On 3 10:09AM ; [facility] Patient education about a pr oper diet 35.7 Last Documented On 3 10:09AM ; [facility] Discussed concerns about exe rcise : promote physical activity Last Documented On 3 10:09AM ; [facility] offered active and suppo rtive listening, validated emotions and feelings, and processed current stressors with being in the hospital. ~P encouraged patient to utilize positive supports and coping skills. ~ Last Documented On 3 1:42PM ; [facility] Discussed nutritional needs teach healthy choices including fruits and vegetables Last Documented On 3 2:16PM ; [facility] Patient education about a pr oper diet 35.7 Last Documented On 3 2:16PM ; [facility] Patient education about phys ical activity benefits Last Documented On 3 10:09PM ; [facility] Patient education about medi cation Last Documented On 3 10:09PM ; [facility] Patient education about ment al health Last Documented On 3 10:09PM ; [facility] Discussed concerns about exe rcise : promote physical activity Last Documented On 3 2:16PM ; [facility] Not requesting contraception Last Documented On 3 2:16PM ; [facility] Discussed nutritional needs teach healthy choices including fruits and vegetables Last Documented On 3 2:25PM ; [facility] Patient education about a pr oper diet 37.4 Last Documented On 3 2:25PM ; [facility] Patient education about phys ical activity benefits Last Documented On 3 2:50PM ; [facility] Patient education about medi cation Last Documented On 3 2:50PM ; [facility] Patient education about ment al health Last Documented On 3 2:50PM ; [facility] Discussed concerns about exe rcise : promote physical activity Last Documented On 3 2:25PM ; [facility] encouraged patient to ut ilize positive supports and coping skills. ~[facility] encouraged patient to contact [facility] if they need any additional support or resources. ~ Last Documented On 3 10:03PM ; [facility] Discussed nutritional needs teach healthy choices including fruits and vegetables Last Documented On 3 10:23AM ; [facility] Patient education about a pr oper diet 36.7 Last Documented On 3 10:23AM ; [facility] Patient education about phys ical activity benefits Last Documented On 3 1:07PM ; [facility] Patient education about medi cation Last Documented On 3 1:07PM ; [facility] Patient education about ment al health Last Documented On 3 1:07PM ; [facility] Discussed concerns about exe rcise : promote physical activity Last Documented On 3 10:23AM ; [facility] introduced patient to [facility] integrated model of care. ~[facility] offered active and supportive listening, normalized emotions and feelings, and processed current stressors. ~Discussed healthy coping skills and positive supports in patient's life. ~Discussed healthy lifestyle behaviors. ~ Last Documented On 3 12:10AM ; [facility] Discussed nutritional needs 36 teach healthy choices including fruits and vegetables Last Documented On 3 12:20PM ; [facility] Patient education about a pr oper diet 36 Last Documented On 3 12:20PM ; [facility] Discussed concerns about exe rcise : promote physical activity Last Documented On 3 12:20PM ; [facility] Referred Patient to a Diabet es Self-Management Program Last Documented On 3 1:46PM ; [facility] Work Phone: 1(701) 151-385712-21-2023 Instructions* Patient Instructions* Jennifer Edmond RN - 05/09/2023 2:15 PM EST Preoperative Education Checklist- General Surgery date: 05/16/23 Surgery time: 2:00 p.m. Arrival time: 12:00 p.m. 1. Bring a photo ID and your insurance card with you the day of surgery. You will check in at the main lobby of the [facility]- registration desk is straight ahead as soon as you walk in. Tell them you are here for surgery. 2. If you have a Living Will/Durable Power of Tool And Die Maker Apprentice for Health Care that is not on [...] after you have bathed. 5. NO nail norwegian/acrylic on at least one finger. If you are having a hand, wrist or foot surgery then all nail norwegian and artificial/acrylic nails must be removed from [...] please call the Preadmission Testing office at [phone], Mon.-Fri. 7 a.m.-3 p.m. Leave a voicemail [...] appointment with your doctor. documented in this encounterK[facility] DaytonWiseStamp [facility] [id number] Miscellaneous Notes* Perioperative Nursing Note - Jennifer Edmond RN - 05/09/2023 2:15 PM EST Preoperative Education Checklist- General Surgery date: 05/16/23 Surgery time: 2:00 p.m. Arrival time: 12:00 p.m. 1. Bring a photo ID and your insurance card with you the day of surgery. You will check in at the main lobby of the [facility]- registration desk is straight ahead as soon as you walk in. Tell them you are here for surgery. 2. If you have a Living Will/Durable Power of Tool And Die Maker Apprentice for Health Care that is not on [...] after you have bathed. 5. NO nail norwegian/acrylic on at least one finger. If you are having a hand, wrist or foot surgery then all nail norwegian and artificial/acrylic nails must be removed from [...] please call the Preadmission Testing office at [phone], Mon.-Fri. 7 a.m.-3 p.m. Leave a voicemail [...] reviewed. Patient verbalized understanding. [facility] Nurse [facility]* Perioperative Nursing Note - Jennifer Edmond RN - 05/09/2023 2:15 PM EST Preoperative Education Checklist- General Surgery date: 05/16/23 Surgery time: 2:00 p.m. Arrival time: 12:00 p.m. 1. Bring a photo ID and your insurance card with you the day of surgery. You will check in at the main lobby of the [facility]- registration desk is straight ahead as soon as you walk in. Tell them you are here for surgery. 2. If you have a Living Will/Durable Power of Tool And Die Maker Apprentice for Health Care that is not on [...] after you have bathed. 5. NO nail norwegian/acrylic on at least one finger. If you are having a hand, wrist or foot surgery then all nail norwegian and artificial/acrylic nails must be removed from [...] please call the Preadmission Testing office at [phone], Mon.-Fri. 7 a.m.-3 p.m. Leave a voicemail [...] to the follow-up appointment with your doctor. [facility] Nurse Note* Perioperative Nursing Note - Jennifer Edmond RN - 05/09/2023 2:15 PM EST Hibiclens and surgical instructions reviewed. Patient verbalized understanding. [facility]12-03-[facility]23 Instructions Includes: Instructions for all patient encounters Instructions to patient Intervention and counseling on cessation of tobacco use, 3-10 minutes Discussed medication and nicotine replacement for tobacco cessation Last Documented On 3 1:05PM ; [facility] Intervention and counseling on cessation of tobacco use, 3-10 minutes Discussed medication and nicotine replacement for tobacco cessation Last Documented On 3 1:02PM ; [facility] Intervention and counseling on cessation of tobacco use, 3-10 minutes Discussed medication and nicotine replacement for tobacco cessation Last Documented On 3 1:13PM ; [facility] Education and Decision Aids were provided during visit for: [facility] offered active and suppo rtive listening, validated emotions and feelings, and processed current stressors with being in the hospital. ~[facility] encouraged patient to utilize positive supports and coping skills. ~ Last Documented On 3 1:42PM ; [facility] Discussed nutritional needs teach healthy choices including fruits and vegetables Last Documented On 3 2:16PM ; [facility] Patient education about a pr oper diet 35.7 Last Documented On 3 2:16PM ; [facility] Patient education about phys ical activity benefits Last Documented On 3 10:09PM ; [facility] Patient education about medi cation Last Documented On 3 10:09PM ; [facility] Patient education about ment al health Last Documented On 3 10:09PM ; [facility] Discussed concerns about exe rcise : promote physical activity Last Documented On 3 2:16PM ; [facility] Not requesting contraception Last Documented On 3 2:16PM ; [facility] Discussed nutritional needs teach healthy choices including fruits and vegetables Last Documented On 3 2:25PM ; [facility] Patient education about a pr oper diet 37.4 Last Documented On 3 2:25PM ; [facility] Patient education about phys ical activity benefits Last Documented On 3 2:50PM ; [facility] Patient education about medi cation Last Documented On 3 2:50PM ; [facility] Patient education about ment al health Last Documented On 3 2:50PM ; [facility] Discussed concerns about exe rcise : promote physical activity Last Documented On 3 2:25PM ; [facility] encouraged patient to ut ilize positive supports and coping skills. ~[facility] encouraged patient to contact [facility] if they need any additional support or resources. ~ Last Documented On 3 10:03PM ; [facility] Discussed nutritional needs teach healthy choices including fruits and vegetables Last Documented On 3 10:23AM ; [facility] Patient education about a pr oper diet 36.7 Last Documented On 3 10:23AM ; [facility] Patient education about phys ical activity benefits Last Documented On 3 1:07PM ; [facility] Patient education about medi cation Last Documented On 3 1:07PM ; [facility] Patient education about ment al health Last Documented On 3 1:07PM ; [facility] Discussed concerns about exe rcise : promote physical activity Last Documented On 3 10:23AM ; [facility] introduced patient to [facility] integrated model of care. ~P offered active and supportive listening, normalized emotions and feelings, and processed current stressors. ~Discussed healthy coping skills and positive supports in patient's life. ~Discussed healthy lifestyle behaviors. ~ Last Documented On 3 12:10AM ; [facility] Discussed nutritional needs 36 teach healthy choices including fruits and vegetables Last Documented On 3 12:20PM ; [facility] Patient education about a pr oper diet 36 Last Documented On 3 12:20PM ; [facility] Discussed concerns about exe rcise : promote physical activity Last Documented On 3 12:20PM ; [facility] Referred Patient to a Diabet es Self-Management Program Last Documented On 3 1:46PM ; [facility] Work Phone: 1([phone]) 429-549512-02-2023 Instructions Includes: Instructions for all patient encounters Instructions to patient Intervention and counseling on cessation of tobacco use, 3-10 minutes Discussed medication and nicotine replacement for tobacco cessation Last Documented On 3 1:05PM ; [facility] Intervention and counseling on cessation of tobacco use, 3-10 minutes Discussed medication and nicotine replacement for tobacco cessation Last Documented On 3 1:02PM ; [facility] Intervention and counseling on cessation of tobacco use, 3-10 minutes Discussed medication and nicotine replacement for tobacco cessation Last Documented On 3 1:13PM ; [facility] Education and Decision Aids were provided during visit for: BHP offered active and suppo rtive listening, validated emotions and feelings, and processed current stressors with being in the hospital. ~[facility] encouraged patient to utilize positive supports and coping skills. ~ Last Documented On 3 1:42PM ; [facility] Discussed nutritional needs teach healthy choices including fruits and vegetables Last Documented On 3 2:16PM ; [facility] Patient education about a pr oper diet 35.7 Last Documented On 3 2:16PM ; [facility] Discussed concerns about exe rcise : promote physical activity Last Documented On 3 2:16PM ; [facility] Not requesting contraception Last Documented On 3 2:16PM ; [facility] Discussed nutritional needs teach healthy choices including fruits and vegetables Last Documented On 3 2:25PM ; [facility] Patient education about a pr oper diet 37.4 Last Documented On 3 2:25PM ; [facility] Patient education about phys ical activity benefits Last Documented On 3 2:50PM ; [facility] Patient education about medi cation Last Documented On 3 2:50PM ; [facility] Patient education about ment al health Last Documented On 3 2:50PM ; [facility] Discussed concerns about exe rcise : promote physical activity Last Documented On 3 2:25PM ; [facility] encouraged patient to ut ilize positive supports and coping skills. ~[facility] encouraged patient to contact [facility] if they need any additional support or resources. ~ Last Documented On 3 10:03PM ; [facility] Discussed nutritional needs teach healthy choices including fruits and vegetables Last Documented On 3 10:23AM ; [facility] Patient education about a pr oper diet 36.7 Last Documented On 3 10:23AM ; [facility] Patient education about phys ical activity benefits Last Documented On 3 1:07PM ; [facility] Patient education about medi cation Last Documented On 3 1:07PM ; [facility] Patient education about ment al health Last Documented On 3 1:07PM ; [facility] Discussed concerns about exe rcise : promote physical activity Last Documented On 3 10:23AM ; [facility] introduced patient to [facility] integrated model of care. ~[facility] offered active and supportive listening, normalized emotions and feelings, and processed current stressors. ~Discussed healthy coping skills and positive supports in patient's life. ~Discussed healthy lifestyle behaviors. ~ Last Documented On 3 12:10AM ; [facility] Discussed nutritional needs 36 teach healthy choices including fruits and vegetables Last Documented On 3 12:20PM ; [facility] Patient education about a pr oper diet 36 Last Documented On 3 12:20PM ; [facility] Discussed concerns about exe rcise : promote physical activity Last Documented On 3 12:20PM ; [facility] Referred Patient to a Diabet es Self-Management Program Last Documented On 3 1:46PM ; [facility] Work Phone: 1([phone]) 443-574711-30-2023 Evaluation note Includes: Assessments for all patient encounters Findings Encounter Date Moderate recurrent major depression BH E stablished Patient with Janina Meghan [employer] 04/18/2023 Last Documented On 3 1:42PM ; [facility] [Z68.35 - Body mass index [B KS] 35.0-35.9, adult] assessment of body mass index Medical Established Patient with Latia Sparks PIPELINE DISPATCH OPERATOR 04/18/2023 Last Documented On 3 2:51PM ; [facility] Assessment of body mass index Medical Es tablished Patient with Latia Sparks PIPELINE DISPATCH OPERATOR 11/15/2022 Last Documented On 3 2:53PM ; [facility] Generalized anxiety disorder Establis hed Patient with Janina Meghan [employer]-S 11/08/2022 Last Documented On 3 10:03PM ; [facility] Hyperlipidemia Nurse Visit with Latia Hoffmanim [facility] 11/08/2022 Last Documented On 3 2:16PM ; [facility] Venipuncture was performed Nurse Visit with Kathia Sparks [facility] 11/08/2022 Last Documented On 3 2:16PM ; [facility] [Z68.36 - Body mass index [B KS] 36.0-36.9, adult] assessment of body mass index Medical Established Patient with Latia Sparks PIPELINE DISPATCH OPERATOR 08/02/2022 Last Documented On 3 1:36PM ; [facility] Intervention and counseling on cessation of tobacco use, 3-10 minutes Discussed medication and nicotine replacement for tobacco cessation Medical Established Patient with Latia Sparks PIPELINE DISPATCH OPERATOR 08/02/2022 Last Documented On 3 1:36PM ; [facility] Visit for: person consulting for explanation of examination or test findings Medical Established Patient with Latia Sparks PIPELINE DISPATCH OPERATOR 08/02/2022 Last Documented On 3 1:36PM ; [facility] Generalized anxiety disorder BH Establis hed Patient with Cinthia Farfan [employer]-S 07/23/2022 Last Documented On 3 12:17AM ; [facility] Intervention and counseling on cessation of tobacco use, 3-10 minutes Discussed medication and nicotine replacement for tobacco cessation Established Patient with Cinthia Farfan [employer]-S 07/23/2022 Last Documented On 3 12:17AM ; [facility] Moderate recurrent major depression E stablished Patient with Cinthia Farfan [employer]-S 07/23/2022 Last Documented On 3 12:17AM ; [facility] Nicotine dependence Established Patient with Cinthia Farfan [employer]LO[employer]-S 07/23/2022 Last Documented On 3 12:17AM ; [facility] Primary insomnia Established Patient with Deysi Farfan [employer]ATER-S 07/23/2022 Last Documented On 3 12:17AM ; [facility] [Z68.36 - Body mass index [B KS] 36.0-36.9, adult] assessment of body mass index Medical New Patient with Latia Sparks PIPELINE DISPATCH OPERATOR 07/23/2022 Last Documented On 3 2:32PM ; [facility] Diabetes Risk Test Score was nine score 07/23/2022 Medical New Patient with Latia Hoffmanim PIPELINE DISPATCH OPERATOR 07/23/2022 Last Documented On 3 2:32PM ; [facility] Intervention and counseling on cessation of tobacco use, 3-10 minutes Discussed medication and nicotine replacement for tobacco cessation Medical New Patient with Latia Hoffmanim PIPELINE DISPATCH OPERATOR 07/23/2022 Last Documented On 3 2:32PM ; [facility] Screening for Hep C Medical New Patient with Nad yelitza Sparks PIPELINE DISPATCH OPERATOR 07/23/2022 Last Documented On 3 2:32PM ; [facility] Screening for HIV Medical New Patient with Hiren a Sparks PIPELINE DISPATCH OPERATOR 07/23/2022 Last Documented On 3 2:32PM ; [facility] Venipuncture was performed Medical New Patient w dmitry Hoffmanim PIPELINE DISPATCH OPERATOR 07/23/2022 Last Documented On 3 2:32PM ; [facility] Visit for routine adult H&P without abnormal findings Medical New Patient with Latia Hoffmanim PIPELINE DISPATCH OPERATOR 07/23/2022 Last Documented On 3 2:32PM ; [facility] Work Phone: [phone]) 966-620211-30-2023 Evaluation note Includes: Assessments for all patient encounters Findings Encounter Date Moderate recurrent major depression BH E stablished Patient with Janina Meghan [employer]LOATER-S 04/18/2023 Last Documented On 3 1:42PM ; [facility] [Z68.35 - Body mass index [B KS] 35.0-35.9, adult] assessment of body mass index Medical Established Patient with Latia Sparks PIPELINE DISPATCH OPERATOR 04/18/2023 Last Documented On 3 10:11PM ; [facility] Nicotine dependence Medical Established Patient with Latia Sparks PIPELINE DISPATCH OPERATOR 04/18/2023 Last Documented On 3 10:11PM ; [facility] 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 Medical Established Patient with Latia Sparks PIPELINE DISPATCH OPERATOR 04/18/2023 Last Documented On 3 10:11PM ; [facility] Assessment of body mass index Medical Es tablished Patient with Latia Sparks PIPELINE DISPATCH OPERATOR 11/15/2022 Last Documented On 3 2:53PM ; [facility] Generalized anxiety disorder BH Establis hed Patient with Janina Meghan [employer] 11/08/2022 Last Documented On 3 10:03PM ; [facility] Hyperlipidemia Nurse Visit with Latia Farooqahim PIPELINE DISPATCH OPERATOR 11/08/2022 Last Documented On 3 2:16PM ; [facility] Venipuncture was performed Nurse Visit with Kathia Hoffmanim PIPELINE DISPATCH OPERATOR 11/08/2022 Last Documented On 3 2:16PM ; [facility] [Z68.36 - Body mass index [B KS] 36.0-36.9, adult] assessment of body mass index Medical Established Patient with Latia Sparks PIPELINE DISPATCH OPERATOR 08/02/2022 Last Documented On 3 1:36PM ; [facility] Intervention and counseling on cessation of tobacco use, 3-10 minutes Discussed medication and nicotine replacement for tobacco cessation Medical Established Patient with Latia Sparks PIPELINE DISPATCH OPERATOR 08/02/2022 Last Documented On 3 1:36PM ; [facility] Visit for: person consulting for explanation of examination or test findings Medical Established Patient with Latia Hoffmanim PIPELINE DISPATCH OPERATOR 08/02/2022 Last Documented On 3 1:36PM ; [facility] Generalized anxiety disorder Establis hed Patient with Cinthia Stone [employer]LOATER-S 07/23/2022 Last Documented On 3 12:17AM ; [facility] Intervention and counseling on cessation of tobacco use, 3-10 minutes Discussed medication and nicotine replacement for tobacco cessation Established Patient with Cinthia Stone [employer]LOATER-S 07/23/2022 Last Documented On 3 12:17AM ; [facility] Moderate recurrent major depression E stablished Patient with Cinthia Stone [employer]LO[employer]-S 07/23/2022 Last Documented On 3 12:17AM ; [facility] Nicotine dependence Established Patient with Cinthia Stone [employer]LOATER-S 07/23/2022 Last Documented On 3 12:17AM ; [facility] Primary insomnia Established Patient with Deysi pugh Stone [employer]LOATER-S 07/23/2022 Last Documented On 3 12:17AM ; [facility] [Z68.36 - Body mass index [B KS] 36.0-36.9, adult] assessment of body mass index Medical New Patient with Latia Hoffmanim PIPELINE DISPATCH OPERATOR 07/23/2022 Last Documented On 3 2:32PM ; [facility] Diabetes Risk Test Score was nine score 07/23/2022 Medical New Patient with Latia Hoffmanim PIPELINE DISPATCH OPERATOR 07/23/2022 Last Documented On 3 2:32PM ; [facility] Intervention and counseling on cessation of tobacco use, 3-10 minutes Discussed medication and nicotine replacement for tobacco cessation Medical New Patient with Latia Hoffmanim PIPELINE DISPATCH OPERATOR 07/23/2022 Last Documented On 3 2:32PM ; [facility] Screening for Hep C Medical New Patient with Nad yelitza Hoffmanim PIPELINE DISPATCH OPERATOR 07/23/2022 Last Documented On 3 2:32PM ; [facility] Screening for HIV Medical New Patient with Hiren Sparks PIPELINE DISPATCH OPERATOR 07/23/2022 Last Documented On 3 2:32PM ; [facility] Venipuncture was performed Medical New Patient christiano Sparks PIPELINE DISPATCH OPERATOR 07/23/2022 Last Documented On 3 2:32PM ; [facility] Visit for routine adult H&P without abnormal findings Medical New Patient with Latia Sparks PIPELINE DISPATCH OPERATOR 07/23/2022 Last Documented On 3 2:32PM ; [facility] Work Phone: 1([phone]) 100-350111-30-2023 History general Narrative - Reported Includes: Medical History in patient's chart Description Last Updated Not planning to have a baby in the next 12 months 04/18/2023 Last Documented On 3 10:11PM ; [facility] No previous suicide attempt 07/24/2022 Last Documented On 3 12:17AM ; [facility] A recent examination by an ophthalmologi st 07/21/2022 07/23/2022 Last Documented On 3 2:32PM ; [facility] History of diabetes mellitus 07/23/2022 Last Documented On 3 2:32PM ; [facility] History of systemic hypertension 023 Last Documented On 3 2:32PM ; [facility] No previous hospitalizations 07/23/2022 Last Documented On 3 2:32PM ; [facility] Recent immunization for flu 07/23/2022 Last Documented On 3 2:32PM ; [facility] Work Phone: [phone]) [phone] Progress note* Progress note Date Encounter Last Documented by 04/18/2023 BH Established Patient Last docu mented on 04/20/2023; 1:42 PM, Janina FRIED; [facility] Active Problems & Conditions - 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 [...] previous hospitalizations. A recent examination by an brusher tender 07/21/2022. Immunization History: Recent immunization for flu. [...] Health Reminders - Eye Exam satisfied 07/21/2022. [facility]11-30-2023 Progress note* Progress note Date Encounter Last Documented by 04/18/2023 Medical Established Patient Last documented on 04/21/2023; 10:11 PM, Latia Sparks PIPELINE DISPATCH OPERATOR; [facility] Active Problems & Conditions - E11.610 [...] previous hospitalizations. A recent examination by an brusher tender 07/21/2022. Immunization History: Recent immunization for flu. [...] dhaliwal), and gender identity Female. Allergies - [place] Reaction: Hives / Urticaria, Shock - Mellaril [...] BP-Sitting R138/80 mmHg BP Cuff SizeLarge Pulse Rate-Mhdennk78 bpm Respiration Rate18 per min Temp-Oral97.8 F Ujymvc77 in Figwbd580 lbs Body Mass Index35.7 kg/m2 Body Surface Area2 m2 Oxygen Yzneyukxjr68 % O2 DeviceNone (Room Air) CpA262 % Vital Signs: - Systolic blood pressure [...] + 0 pt : Not at all. 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 A recent examination by an brusher tender 07/21/2022. Immunization History: Recent immunization for flu. Diagnoses: Systemic hypertension. Diabetes mellitus Surgical: - Cholecystectomy - Hernia repair - Hysterectomy - Tubal ligation Allergies - [place] Reaction: Hives / Urticaria, Shock - Mellaril - PENICILLINS Reaction: Hives / Urticaria - Topamax Family History Maternal: Type 1 diabetes mellitus Plan StartCited- Acute sinusitis, unspecified Azithromycin 250 MG tablet 500 mg by mouth x 1 day 1, then 250 mg by mouth daily x 4 days., 5 days, 0 refills EndCited [facility]11-13-2023 Instructions Includes: Instructions for all patient encounters Instructions to patient Intervention and counseling on cessation of tobacco use, 3-10 minutes Discussed medication and nicotine replacement for tobacco cessation Last Documented On 3 1:05PM ; [facility] Intervention and counseling on cessation of tobacco use, 3-10 minutes Discussed medication and nicotine replacement for tobacco cessation Last Documented On 3 1:02PM ; [facility] Intervention and counseling on cessation of tobacco use, 3-10 minutes Discussed medication and nicotine replacement for tobacco cessation Last Documented On 3 1:13PM ; [facility] Education and Decision Aids were provided during visit for: Discussed nutritional needs teach healthy choices including fruits and vegetables Last Documented On 3 2:25PM ; [facility] Patient education about a pr oper diet 37.4 Last Documented On 3 2:25PM ; [facility] Patient education about phys ical activity benefits Last Documented On 3 2:50PM ; [facility] Patient education about medi cation Last Documented On 3 2:50PM ; [facility] Patient education about ment al health Last Documented On 3 2:50PM ; [facility] Discussed concerns about exe rcise : promote physical activity Last Documented On 3 2:25PM ; [facility] encouraged patient to ut ilize positive supports and coping skills. ~[facility] encouraged patient to contact [facility] if they need any additional support or resources. ~ Last Documented On 3 10:03PM ; [facility] Discussed nutritional needs teach healthy choices including fruits and vegetables Last Documented On 3 10:23AM ; [facility] Patient education about a pr oper diet 36.7 Last Documented On 3 10:23AM ; [facility] Patient education about phys ical activity benefits Last Documented On 3 1:07PM ; [facility] Patient education about medi cation Last Documented On 3 1:07PM ; [facility] Patient education about ment al health Last Documented On 3 1:07PM ; [facility] Discussed concerns about exe rcise : promote physical activity Last Documented On 3 10:23AM ; [facility] introduced patient to [facility] integrated model of care. ~P offered active and supportive listening, normalized emotions and feelings, and processed current stressors. ~Discussed healthy coping skills and positive supports in patient's life. ~Discussed healthy lifestyle behaviors. ~ Last Documented On 3 12:10AM ; [facility] Discussed nutritional needs 36 teach healthy choices including fruits and vegetables Last Documented On 3 12:20PM ; [facility] Patient education about a pr oper diet 36 Last Documented On 3 12:20PM ; [facility] Discussed concerns about exe rcise : promote physical activity Last Documented On 3 12:20PM ; [facility] Referred Patient to a Diabet es Self-Management Program Last Documented On 3 1:46PM ; [facility] Work Phone: 1(501) 497-917406-29-2023 Evaluation note Includes: Assessments for all patient encounters Findings Encounter Date Assessment of body mass index Medical Es tablished Patient with Latia Sparks [facility] 11/15/2022 Last Documented On 3 2:53PM ; [facility] Generalized anxiety disorder BH Establis hed Patient with Janina Christianson [employer] FLOATER-S 11/08/2022 Last Documented On 3 10:03PM ; [facility] Hyperlipidemia Nurse Visit with Latia Hoffmanim [facility] 11/08/2022 Last Documented On 3 2:16PM ; [facility] Venipuncture was performed Nurse Visit with Kathia Sparks [facility] 11/08/2022 Last Documented On 3 2:16PM ; [facility] [Z68.36 - Body mass index [B KS] 36.0-36.9, adult] assessment of body mass index Medical Established Patient with Latia Hoffmanim [facility] 08/02/2022 Last Documented On 3 1:36PM ; [facility] Intervention and counseling on cessation of tobacco use, 3-10 minutes Discussed medication and nicotine replacement for tobacco cessation Medical Established Patient with Latia Sparks PIPELINE DISPATCH OPERATOR 08/02/2022 Last Documented On 3 1:36PM ; [facility] Visit for: person consulting for explanation of examination or test findings Medical Established Patient with Latia Sparks PIPELINE DISPATCH OPERATOR 08/02/2022 Last Documented On 3 1:36PM ; [facility] Generalized anxiety disorder Establis hed Patient with Cinthia Stone [employer]LOATER-S 07/23/2022 Last Documented On 3 12:17AM ; [facility] Intervention and counseling on cessation of tobacco use, 3-10 minutes Discussed medication and nicotine replacement for tobacco cessation Established Patient with Cinthia Stone [employer]YSTER FLOATER-S 07/23/2022 Last Documented On 3 12:17AM ; [facility] Moderate recurrent major depression E stablished Patient with Cinthia Stone [employer]YSTER FLOATER-S 07/23/2022 Last Documented On 3 12:17AM ; [facility] Nicotine dependence Established Patient with Cinthia Stone OYSTER FLOATER-S 07/23/2022 Last Documented On 3 12:17AM ; [facility] Primary insomnia Established Patient with Deysi pugh Stone [employer]YSTER FLOATER-S 07/23/2022 Last Documented On 3 12:17AM ; [facility] [Z68.36 - Body mass index [B KS] 36.0-36.9, adult] assessment of body mass index Medical New Patient with Latia Sparks PIPELINE DISPATCH OPERATOR 07/23/2022 Last Documented On 3 2:32PM ; [facility] Diabetes Risk Test Score was nine score 07/23/2022 Medical New Patient with Latia Sparks PIPELINE DISPATCH OPERATOR 07/23/2022 Last Documented On 3 2:32PM ; [facility] Intervention and counseling on cessation of tobacco use, 3-10 minutes Discussed medication and nicotine replacement for tobacco cessation Medical New Patient with Latia Sparks PIPELINE DISPATCH OPERATOR 07/23/2022 Last Documented On 3 2:32PM ; [facility] Screening for Hep C Medical New Patient with Nad yelitza Sparks PIPELINE DISPATCH OPERATOR 07/23/2022 Last Documented On 3 2:32PM ; [facility] Screening for HIV Medical New Patient with Hiren Sparks PIPELINE DISPATCH OPERATOR 07/23/2022 Last Documented On 3 2:32PM ; [facility] Venipuncture was performed Medical New Patient w dmitry Sparks PIPELINE DISPATCH OPERATOR 07/23/2022 Last Documented On 3 2:32PM ; [facility] Visit for routine adult H&P without abnormal findings Medical New Patient with Latia Sparks PIPELINE DISPATCH OPERATOR 07/23/2022 Last Documented On 3 2:32PM ; [facility] Work Phone: [phone] 356-514906-29-2023 Progress note* Progress note Date Encounter Last Documented by 11/15/2022 Medical Established Patient Last documented on 11/15/2022; 2:53 PM, Latia Sparks [facility]; [facility] Active Problems & Conditions - E11.610 [...] The patient is currently living at a fdc that does not follow any diabetic or [...] previous hospitalizations. A recent examination by an brusher tender 07/21/2022. Immunization History: Recent immunization for flu. [...] 11/15/2022 02:17 pm BP-Sitting R143/78 mmHg Pulse Rate-Vtmrzxp20 bpm Cufvab70 in Cbgifh518 lbs Body Mass Index37.4 kg/m2 Body Surface Area2 m2 Oxygen Ewimizizce47 % - Vitals taken 11/15/2022 02:24 pm BP-Eieijfr682/82 mmHg General Appearance: - Awake. - Alert. [...] and diastolic 80-89 mmHg diastolic 80-89 mmHg. [facility]06-24-2023 Instructions Includes: Instructions for all patient encounters Instructions to patient Intervention and counseling on cessation of tobacco use, 3-10 minutes Discussed medication and nicotine replacement for tobacco cessation Last Documented On 3 1:05PM ; [facility] Intervention and counseling on cessation of tobacco use, 3-10 minutes Discussed medication and nicotine replacement for tobacco cessation Last Documented On 3 1:02PM ; [facility] Intervention and counseling on cessation of tobacco use, 3-10 minutes Discussed medication and nicotine replacement for tobacco cessation Last Documented On 3 1:13PM ; [facility] Education and Decision Aids were provided during visit for: [facility] encouraged patient to ut ilize positive supports and coping skills. ~[facility] encouraged patient to contact [facility] if they need any additional support or resources. ~ Last Documented On 3 10:03PM ; [facility] Discussed nutritional needs teach healthy choices including fruits and vegetables Last Documented On 3 10:23AM ; [facility] Patient education about a pr oper diet 36.7 Last Documented On 3 10:23AM ; [facility] Patient education about phys ical activity benefits Last Documented On 3 1:07PM ; [facility] Patient education about medi cation Last Documented On 3 1:07PM ; [facility] Patient education about ment al health Last Documented On 3 1:07PM ; [facility] Discussed concerns about exe rcise : promote physical activity Last Documented On 3 10:23AM ; [facility] introduced patient to [facility] integrated model of care. ~[facility] offered active and supportive listening, normalized emotions and feelings, and processed current stressors. ~Discussed healthy coping skills and positive supports in patient's life. ~Discussed healthy lifestyle behaviors. ~ Last Documented On 3 12:10AM ; [facility] Discussed nutritional needs 36 teach healthy choices including fruits and vegetables Last Documented On 3 12:20PM ; [facility] Patient education about a pr oper diet 36 Last Documented On 3 12:20PM ; [facility] Discussed concerns about exe rcise : promote physical activity Last Documented On 3 12:20PM ; [facility] Referred Patient to a Diabet es Self-Management Program Last Documented On 3 1:46PM ; [facility] Work Phone: [phone]) 296-759706-22-2023 Evaluation note Includes: Assessments for all patient encounters Findings Encounter Date Hyperlipidemia Nurse Visit with Latia Sparks [facility] 11/08/2022 Last Documented On 3 2:16PM ; [facility] Venipuncture was performed Nurse Visit with Kathia Sparks [facility] 11/08/2022 Last Documented On 3 2:16PM ; [facility] [Z68.36 - Body mass index [B KS] 36.0-36.9, adult] assessment of body mass index Medical Established Patient with Latia Sparks [facility] 08/02/2022 Last Documented On 3 1:36PM ; [facility] Intervention and counseling on cessation of tobacco use, 3-10 minutes Discussed medication and nicotine replacement for tobacco cessation Medical Established Patient with Latia Sparks [facility] 08/02/2022 Last Documented On 3 1:36PM ; [facility] Visit for: person consulting for explanation of examination or test findings Medical Established Patient with Latia Sparks [facility] 08/02/2022 Last Documented On 3 1:36PM ; [facility] Generalized anxiety disorder BH Establis hed Patient with Cinthia Stone [facility] 07/23/2022 Last Documented On 3 12:17AM ; [facility] Intervention and counseling on cessation of tobacco use, 3-10 minutes Discussed medication and nicotine replacement for tobacco cessation Established Patient with Cinthia Stone [facility] 07/23/2022 Last Documented On 3 12:17AM ; [facility] Moderate recurrent major depression E stablished Patient with Cinthia Stone [facility] 07/23/2022 Last Documented On 3 12:17AM ; [facility] Nicotine dependence Established Patient with Cinthia Stone [facility] 07/23/2022 Last Documented On 3 12:17AM ; [facility] Primary insomnia Established Patient with Deysi pugh Stone [facility] 07/23/2022 Last Documented On 3 12:17AM ; [facility] [Z68.36 - Body mass index [B KS] 36.0-36.9, adult] assessment of body mass index Medical New Patient with Latia Hoffmanim [employer] 07/23/2022 Last Documented On 3 2:32PM ; [facility] Diabetes Risk Test Score was nine score 07/23/2022 Medical New Patient with Latia Sparks [employer] 07/23/2022 Last Documented On 3 2:32PM ; [facility] Intervention and counseling on cessation of tobacco use, 3-10 minutes Discussed medication and nicotine replacement for tobacco cessation Medical New Patient with Latia Sparks [employer] 07/23/2022 Last Documented On 3 2:32PM ; [facility] Screening for Hep C Medical New Patient with Nad yelitza Farooqahim [employer]PATCH OPER[employer] 07/23/2022 Last Documented On 3 2:32PM ; [facility] Screening for HIV Medical New Patient with Hiren a Sparks [facility] 07/23/2022 Last Documented On 3 2:32PM ; [facility] Venipuncture was performed Medical New Patient w dmitry Hoffmanim [facility] 07/23/2022 Last Documented On 3 2:32PM ; [facility] Visit for routine adult H&P without abnormal findings Medical New Patient with Latianova Hoffmanim PIPELINE DISPATCH OPERATOR 07/23/2022 Last Documented On 3 2:32PM ; [facility] Work Phone: [phone]) 538-899006-22-2023 Evaluation note Includes: Assessments for all patient encounters Findings Encounter Date Generalized anxiety disorder BH Establis hed Patient with Janinasam Christianson [facility] 11/08/2022 Last Documented On 3 10:03PM ; [facility] Hyperlipidemia Nurse Visit with Latia Hoffmanim PIPELINE DISPATCH OPERATOR 11/08/2022 Last Documented On 3 2:16PM ; [facility] Venipuncture was performed Nurse Visit with Kathia Hoffmanim [facility] 11/08/2022 Last Documented On 3 2:16PM ; [facility] [Z68.36 - Body mass index [B KS] 36.0-36.9, adult] assessment of body mass index Medical Established Patient with Latia Sparks [employer]PATCH OPER[employer] 08/02/2022 Last Documented On 3 1:36PM ; [facility] Intervention and counseling on cessation of tobacco use, 3-10 minutes Discussed medication and nicotine replacement for tobacco cessation Medical Established Patient with Latia Sparks [employer]PATCH [employer] 08/02/2022 Last Documented On 3 1:36PM ; [facility] Visit for: person consulting for explanation of examination or test findings Medical Established Patient with Latia Sparks [employer]EL[employer] DISPATCH OPER[employer] 08/02/2022 Last Documented On 3 1:36PM ; [facility] Generalized anxiety disorder Establis hed Patient with Cinthia Stone [facility] 07/23/2022 Last Documented On 3 12:17AM ; [facility] Intervention and counseling on cessation of tobacco use, 3-10 minutes Discussed medication and nicotine replacement for tobacco cessation Established Patient with Cinthia Stone [facility] 07/23/2022 Last Documented On 3 12:17AM ; [facility] Moderate recurrent major depression E stablished Patient with Cinthia Stone [facility] 07/23/2022 Last Documented On 3 12:17AM ; [facility] Nicotine dependence Established Patient with Cinthia Stone [facility] 07/23/2022 Last Documented On 3 12:17AM ; [facility] Primary insomnia Established Patient with Deysi pugh Stone [employer] 07/23/2022 Last Documented On 3 12:17AM ; [facility] [Z68.36 - Body mass index [B KS] 36.0-36.9, adult] assessment of body mass index Medical New Patient with Latia Sparks PIPELINE DISPATCH OPERATOR 07/23/2022 Last Documented On 3 2:32PM ; [facility] Diabetes Risk Test Score was nine score 07/23/2022 Medical New Patient with Latia Sparks PIPELINE DISPATCH OPERATOR 07/23/2022 Last Documented On 3 2:32PM ; [facility] Intervention and counseling on cessation of tobacco use, 3-10 minutes Discussed medication and nicotine replacement for tobacco cessation Medical New Patient with Latia Sparks PIPEL[employer] DISPATCH OPERATOR 07/23/2022 Last Documented On 3 2:32PM ; [facility] Screening for Hep C Medical New Patient with Nad yelitza Sparks [employer] DISPATCH OPER[employer] 07/23/2022 Last Documented On 3 2:32PM ; [facility] Screening for HIV Medical New Patient with Hiren Sparks PIPELINE DISPATCH OPERATOR 07/23/2022 Last Documented On 3 2:32PM ; [facility] Venipuncture was performed Medical New Patient w dmitry Sparks PIPELINE DISPATCH OPERATOR 07/23/2022 Last Documented On 3 2:32PM ; [facility] Visit for routine adult H&P without abnormal findings Medical New Patient with Latia Sparks PIPELINE DISPATCH OPERATOR 07/23/2022 Last Documented On 3 2:32PM ; [facility] Work Phone: 1(273) 202-538506-22-2023 Progress note* Progress note Date Encounter Last Documented by 11/08/2022 Nurse Visit Last documented on 11/08/2022; 2:16 PM, Latia Sparks [facility]; [facility] Active Problems & Conditions - E11.610 [...] previous hospitalizations. A recent examination by an brusher tender 07/21/2022. Immunization History: Recent immunization for flu. 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 [...] previous hospitalizations. A recent examination by an brusher tender 07/21/2022. Immunization History: Recent immunization for flu. [...] - Collaborated with patient and provider: Counseling/Education [facility] encouraged patient to utilize positive supports and coping skills. P encouraged patient to contact [facility] if they need any additional support or resources. . Plan [facility] to follow up with patient at [...] + 0 pt : Not at all. [facility]06-22-2023 Instructions Includes: Instructions for all patient encounters Instructions to patient Intervention and counseling on cessation of tobacco use, 3-10 minutes Discussed medication and nicotine replacement for tobacco cessation Last Documented On 3 1:05PM ; [facility] Intervention and counseling on cessation of tobacco use, 3-10 minutes Discussed medication and nicotine replacement for tobacco cessation Last Documented On 3 1:02PM ; [facility] Intervention and counseling on cessation of tobacco use, 3-10 minutes Discussed medication and nicotine replacement for tobacco cessation Last Documented On 3 1:13PM ; [facility] Education and Decision Aids were provided during visit for: Discussed nutritional needs teach healthy choices including fruits and vegetables Last Documented On 3 10:23AM ; [facility] Patient education about a pr oper diet 36.7 Last Documented On 3 10:23AM ; [facility] Patient education about phys ical activity benefits Last Documented On 3 1:07PM ; [facility] Patient education about medi cation Last Documented On 3 1:07PM ; [facility] Patient education about ment al health Last Documented On 3 1:07PM ; [facility] Discussed concerns about exe rcise : promote physical activity Last Documented On 3 10:23AM ; [facility] introduced patient to [facility] integrated model of care. ~P offered active and supportive listening, normalized emotions and feelings, and processed current stressors. ~Discussed healthy coping skills and positive supports in patient's life. ~Discussed healthy lifestyle behaviors. ~ Last Documented On 3 12:10AM ; [facility] Discussed nutritional needs 36 teach healthy choices including fruits and vegetables Last Documented On 3 12:20PM ; [facility] Patient education about a pr oper diet 36 Last Documented On 3 12:20PM ; [facility] Discussed concerns about exe rcise : promote physical activity Last Documented On 3 12:20PM ; [facility] Referred Patient to a Diabet es Self-Management Program Last Documented On 3 1:46PM ; [facility] Work Phone: 1([phone]) 612-882404-11-2023 NoteCONSULTATION CONSULTATION DATE: 08/28/2022 TO: Geraldo Prado [...] the lower extremities MEDICATION: Current medication includes Buxton 5 mg b.i.d. p.r.n. She reports that she has not been taking her Xanax. She reports the Buxton does seem to increase in her quality [...] our patients to inform us about any ldsq-voa-ifvxddy medications or herbal remedies/nutritional supplements/alternative remedies. 2. [...] treatment options with their primary care provider.[facility] [id number] Progress note* Progress note Date Encounter Last Documented by 08/02/2022 Medical Established Patient Last documented on 08/02/2022; 1:36 PM, Latia MAYORGA; [facility] Active Problems & Conditions - E11.610 [...] results, Pt needs tresiba prescribed to the [facility] just for today. Referred Here No [...] has been provided. The patient lives a fdc, where food is cooking Current Medication - [...] previous hospitalizations. A recent examination by an brusher tender 07/21/2022. Immunization History: Recent immunization for flu. [...] BP-Sitting R138/82 mmHg BP Cuff SizeLarge Pulse Rate-Wlxgkru00 bpm Pulse RhythmRegular Respiration Rate18 per min Temp-Gfjxqpme85.5 F Juwfra42 in Xmkixf686 lbs Body Mass Index36.7 kg/m2 Body Surface Area2 m2 Oxygen Dourtkarvt82 % O2 DeviceNone (Room Air) UyI227 % General Appearance: - Awake. - Alert. [...] and diastolic 80-89 mmHg diastolic 80-89 mmHg. [facility]03-16-2023 Instructions Includes: Instructions for all patient encounters Instructions to patient Intervention and counseling on cessation of tobacco use, 3-10 minutes Discussed medication and nicotine replacement for tobacco cessation Last Documented On 3 1:05PM ; [facility] Intervention and counseling on cessation of tobacco use, 3-10 minutes Discussed medication and nicotine replacement for tobacco cessation Last Documented On 3 1:02PM ; [facility] Intervention and counseling on cessation of tobacco use, 3-10 minutes Discussed medication and nicotine replacement for tobacco cessation Last Documented On 3 1:13PM ; [facility] Education and Decision Aids were provided during visit for: Discussed nutritional needs teach healthy choices including fruits and vegetables Last Documented On 3 10:23AM ; [facility] Patient education about a pr oper diet 36.7 Last Documented On 3 10:23AM ; [facility] Patient education about phys ical activity benefits Last Documented On 3 1:07PM ; [facility] Patient education about medi cation Last Documented On 3 1:07PM ; [facility] Patient education about ment al health Last Documented On 3 1:07PM ; [facility] Discussed concerns about exe rcise : promote physical activity Last Documented On 3 10:23AM ; [facility] introduced patient to [facility] integrated model of care. ~P offered active and supportive listening, normalized emotions and feelings, and processed current stressors. ~Discussed healthy coping skills and positive supports in patient's life. ~Discussed healthy lifestyle behaviors. ~ Last Documented On 3 12:10AM ; [facility] Discussed nutritional needs 36 teach healthy choices including fruits and vegetables Last Documented On 3 12:20PM ; [facility] Patient education about a pr oper diet 36 Last Documented On 3 12:20PM ; [facility] Discussed concerns about exe rcise : promote physical activity Last Documented On 3 12:20PM ; [facility] Referred Patient to a Diabet es Self-Management Program Last Documented On 3 1:46PM ; [facility] Work Phone: 1([phone]) [phone] Instructions Includes: Instructions for all patient encounters Instructions to patient Intervention and counseling on cessation of tobacco use, 3-10 minutes Discussed medication and nicotine replacement for tobacco cessation Last Documented On 3 1:05PM ; [facility] Intervention and counseling on cessation of tobacco use, 3-10 minutes Discussed medication and nicotine replacement for tobacco cessation Last Documented On 3 1:02PM ; [facility] Intervention and counseling on cessation of tobacco use, 3-10 minutes Discussed medication and nicotine replacement for tobacco cessation Last Documented On 3 1:13PM ; [facility] Education and Decision Aids were provided during visit for: Discussed nutritional needs teach healthy choices including fruits and vegetables Last Documented On 3 10:23AM ; [facility] Patient education about a pr oper diet 36.7 Last Documented On 3 10:23AM ; [facility] Patient education about phys ical activity benefits Last Documented On 3 1:07PM ; [facility] Patient education about medi cation Last Documented On 3 1:07PM ; [facility] Patient education about ment al health Last Documented On 3 1:07PM ; [facility] Discussed concerns about exe rcise : promote physical activity Last Documented On 3 10:23AM ; [facility] introduced patient to [facility] integrated model of care. ~P offered active and supportive listening, normalized emotions and feelings, and processed current stressors. ~Discussed healthy coping skills and positive supports in patient's life. ~Discussed healthy lifestyle behaviors. ~ Last Documented On 3 12:10AM ; [facility] Discussed nutritional needs 36 teach healthy choices including fruits and vegetables Last Documented On 3 12:20PM ; [facility] Patient education about a pr oper diet 36 Last Documented On 3 12:20PM ; [facility] Discussed concerns about exe rcise : promote physical activity Last Documented On 3 12:20PM ; [facility] Referred Patient to a Diabet es Self-Management Program Last Documented On 3 1:46PM ; [facility] Work Phone: [phone] 321-371403-07-2023 History general Narrative - Reported Includes: Medical History in patient's chart Description Last Updated No previous suicide attempt 07/24/2022 Last Documented On 3 12:17AM ; [facility] A recent examination by an ophthalmologi st 07/21/2022 07/23/2022 Last Documented On 3 2:32PM ; [facility] History of diabetes mellitus 07/23/2022 Last Documented On 3 2:32PM ; [facility] History of systemic hypertension 023 Last Documented On 3 2:32PM ; [facility] No previous hospitalizations 07/23/2022 Last Documented On 3 2:32PM ; [facility] Recent immunization for flu 07/23/2022 Last Documented On 3 2:32PM ; [facility] Work Phone: [phone]) 292-577203-07-2023 History general Narrative - Reported Includes: Medical History in patient's chart Description Last Updated No previous suicide attempt 07/24/2022 Last Documented On 3 12:17AM ; [facility] A recent examination by an ophthalmologi st 07/21/2022 07/23/2022 Last Documented On 3 2:32PM ; [facility] History of diabetes mellitus 07/23/2022 Last Documented On 3 2:32PM ; [facility] History of systemic hypertension 023 Last Documented On 3 2:32PM ; [facility] No previous hospitalizations 07/23/2022 Last Documented On 3 2:32PM ; [facility] Recent immunization for flu 07/23/2022 Last Documented On 3 2:32PM ; [facility] Work Phone: [phone]) 922-673903-07-2023 History general Narrative - Reported Includes: Medical History in patient's chart Description Last Updated No previous suicide attempt 07/24/2022 Last Documented On 3 12:17AM ; [facility] A recent examination by an ophthalmologi st 07/21/2022 07/23/2022 Last Documented On 3 2:32PM ; [facility] History of diabetes mellitus 07/23/2022 Last Documented On 3 2:32PM ; [facility] History of systemic hypertension 023 Last Documented On 3 2:32PM ; [facility] No previous hospitalizations 07/23/2022 Last Documented On 3 2:32PM ; [facility] Recent immunization for flu 07/23/2022 Last Documented On 3 2:32PM ; [facility] Work Phone: 1([phone]) [phone] History general Narrative - Reported Includes: Medical History in patient's chart Description Last Updated No previous suicide attempt 07/24/2022 Last Documented On 3 12:17AM ; [facility] A recent examination by an ophthalmologi st 07/21/2022 07/23/2022 Last Documented On 3 2:32PM ; [facility] History of diabetes mellitus 07/23/2022 Last Documented On 3 2:32PM ; [facility] History of systemic hypertension 023 Last Documented On 3 2:32PM ; [facility] No previous hospitalizations 07/23/2022 Last Documented On 3 2:32PM ; [facility] Recent immunization for flu 07/23/2022 Last Documented On 3 2:32PM ; [facility] Work Phone: [phone]) [phone] History general Narrative - Reported Includes: Medical History in patient's chart Description Last Updated No previous suicide attempt 07/24/2022 Last Documented On 3 12:17AM ; [facility] A recent examination by an ophthalmologi st 07/21/2022 07/23/2022 Last Documented On 3 2:32PM ; [facility] History of diabetes mellitus 07/23/2022 Last Documented On 3 2:32PM ; [facility] History of systemic hypertension 023 Last Documented On 3 2:32PM ; [facility] No previous hospitalizations 07/23/2022 Last Documented On 3 2:32PM ; [facility] Recent immunization for flu 07/23/2022 Last Documented On 3 2:32PM ; [facility] Work Phone: [phone]) 174-556603-07-2023 History general Narrative - Reported Includes: Medical History in patient's chart Description Last Updated No previous suicide attempt 07/24/2022 Last Documented On 3 12:17AM ; [facility] Center A recent examination by an ophthalmologi st 07/21/2022 07/23/2022 Last Documented On 3 2:32PM ; [facility] History of diabetes mellitus 07/23/2022 Last Documented On 3 2:32PM ; [facility] History of systemic hypertension 023 Last Documented On 3 2:32PM ; [facility] No previous hospitalizations 07/23/2022 Last Documented On 3 2:32PM ; [facility] Recent immunization for flu 07/23/2022 Last Documented On 3 2:32PM ; [facility] Work Phone: 1([phone]) 335-441103-06-2023 Evaluation note Includes: Assessments for all patient encounters Findings Encounter Date Generalized anxiety disorder Established Shirley ent with Cinthia Stone OYSTER FLOATER 07/23/2022 Last Documented On 3 1:10PM ; [facility] Intervention and counseling on cessation of tobacco use, 3-10 minutes Discussed medication and nicotine replacement for tobacco cessation Established Patient with Cinthia Stone OYSTER FLOATER 07/23/2022 Last Documented On 3 1:10PM ; [facility] Moderate recurrent major depression E stablished Patient with Cinthia Stone OYSTER FLOATER 07/23/2022 Last Documented On 3 1:10PM ; [facility] Nicotine dependence BH Established Patient with Cinthia Stone OYSTER FLOATER 07/23/2022 Last Documented On 3 1:10PM ; [facility] Primary insomnia BH Established Patient with Deysi Farfan OYSTER FLOATER 07/23/2022 Last Documented On 3 1:10PM ; [facility] [Z68.36 - Body mass index [B KS] 36.0-36.9, adult] assessment of body mass index Medical New Patient with Latia Sparks PIPELINE DISPATCH OPERATOR 07/23/2022 Last Documented On 3 2:32PM ; [facility] Diabetes Risk Test Score was nine score 07/23/2022 Medical New Patient with Latia Sparks PIPELINE DISPATCH OPERATOR 07/23/2022 Last Documented On 3 2:32PM ; [facility] Intervention and counseling on cessation of tobacco use, 3-10 minutes Discussed medication and nicotine replacement for tobacco cessation Medical New Patient with Latia Sparks PIPELINE DISPATCH OPERATOR 07/23/2022 Last Documented On 3 2:32PM ; [facility] Screening for Hep C Medical New Patient with Nad yelitza Bridger PIPELINE DISPATCH OPERATOR 07/23/2022 Last Documented On 3 2:32PM ; [facility] Screening for HIV Medical New Patient with Hiren nova Sparks PIPELINE DISPATCH OPERATOR 07/23/2022 Last Documented On 3 2:32PM ; [facility] Venipuncture was performed Medical New Patient w dmitry Sparks PIPELINE DISPATCH OPERATOR 07/23/2022 Last Documented On 3 2:32PM ; [facility] Visit for routine adult H&P without abnormal findings Medical New Patient with Latia Sparks PIPELINE DISPATCH OPERATOR 07/23/2022 Last Documented On 3 2:32PM ; [facility] Work Phone: 1([phone]) 122-337803-06-2023 Evaluation note Includes: Assessments for all patient encounters Findings Encounter Date Generalized anxiety disorder Established Shirley ent with Cinthia Farfan OYSTER FLOATER 07/23/2022 Last Documented On 3 12:17AM ; [facility] Intervention and counseling on cessation of tobacco use, 3-10 minutes Discussed medication and nicotine replacement for tobacco cessation BH Established Patient with Cinthia Stone OYSTER FLOATER 07/23/2022 Last Documented On 3 12:17AM ; [facility] Moderate recurrent major depression E stablished Patient with Cinthia Farfan OYSTER FLOATER 07/23/2022 Last Documented On 3 12:17AM ; [facility] Nicotine dependence Established Patient with Cinthia Farfan OYSTER FLOATER 07/23/2022 Last Documented On 3 12:17AM ; [facility] Primary insomnia Established Patient with Deysi Farfan OYSTER FLOATER 07/23/2022 Last Documented On 3 12:17AM ; [facility] [Z68.36 - Body mass index [B KS] 36.0-36.9, adult] assessment of body mass index Medical New Patient with Latia Sparks PIPELINE DISPATCH OPERATOR 07/23/2022 Last Documented On 3 2:32PM ; [facility] Diabetes Risk Test Score was nine score 07/23/2022 Medical New Patient with Latia Sparks PIPELINE DISPATCH OPERATOR 07/23/2022 Last Documented On 3 2:32PM ; [facility] Intervention and counseling on cessation of tobacco use, 3-10 minutes Discussed medication and nicotine replacement for tobacco cessation Medical New Patient with Latia Hoffmanim PIPELINE DISPATCH OPERATOR 07/23/2022 Last Documented On 3 2:32PM ; [facility] Screening for Hep C Medical New Patient with Nad yelitza Hoffmanim PIPELINE DISPATCH OPERATOR 07/23/2022 Last Documented On 3 2:32PM ; [facility] Screening for HIV Medical New Patient with Hiren a Sparks PIPELINE DISPATCH OPERATOR 07/23/2022 Last Documented On 3 2:32PM ; [facility] Venipuncture was performed Medical New Patient w dmitry Sparks PIPELINE DISPATCH OPERATOR 07/23/2022 Last Documented On 3 2:32PM ; [facility] Visit for routine adult H&P without abnormal findings Medical New Patient with Latia Hoffmanim PIPELINE DISPATCH OPERATOR 07/23/2022 Last Documented On 3 2:32PM ; [facility] Work Phone: 1([phone]) [phone] Progress note* Progress note Date Encounter Last Documented by 07/23/2022 Medical New Patient Last sydni elkins on 07/23/2022; 2:32 PM, Latia Sparks [facility]; [facility] Active Problems & Conditions - E11.610 [...] A 72 year old female presented to [facility]. Resides at [facility]. Medical history is significant for diabetes [...] previous hospitalizations. A recent examination by an brusher tender 07/21/2022. Immunization History: Recent immunization for flu. [...] BP-Sitting R168/92 mmHg BP Cuff SizeLarge Pulse Rate-Xldqnvu096 bpm Pulse RhythmRegular Respiration Rate21 per min Temp-Oral98.3 F Qsyceq46 in Bmpvbx824 lbs Body Mass Index36 kg/m2 Body Surface Area2 m2 Oxygen Toxefgauwo95 % O2 DeviceNone (Room Air) XvM755 % - Vitals taken 07/23/2022 01:38 pm [...] 60 years or older (3 points) [Pre-DM]. [facility]03-06-2023 Progress note* Progress note Date Encounter Last Documented by 07/23/2022 Established Patient Last docu mented on 07/24/2022; 12:17 AM, Cinthia PARRISH; [facility] Active Problems & Conditions - E11.610 [...] compliant and implementing healthy coping skills Subjective [facility] reviewed PHQ-9 score of 9 and [...] to stop smoking offered Quit Line information [facility] introduced patient to [facility] integrated model of care. [facility] offered active and supportive listening, normalized emotions and feelings, and processed current stressors. Discussed healthy coping skills and positive supports in patient's life. Discussed healthy lifestyle behaviors. . Plan - No Safety Measures Continue to take medications as directed and patient verbalized understanding. Utilize healthy coping skills and positive supports in patient's life. Implement healthy lifestyle coping skills like discussed. [facility] to follow-up with patient at next [...] clothing: No, unable to get needed child care associate teacher: No, unable to get needed phone: [...] + 0 pt : Not at all. [facility]03-06-2023 Progress note* Progress note Date Encounter Last Documented by 07/23/2022 Established Patient Last docu mented on 07/24/2022; 12:17 AM, Cinthia FRIED; [facility] Active Problems & Conditions - E11.610 [...] Quit Line information P introduced patient to [facility] integrated model of care. [facility] offered [...] clothing: No, unable to get needed child care associate teacher: No, unable to get needed phone: [...] + 0 pt : Not at all. [facility]03-06-2023 Reason for referral (narrative)* Date Encounter Description Provider Reason for Referral 07/23/22 Established Patient Cinthia PARRISH Referral To Mental Health Team [facility] Work Phone: [phone]) 645-177703-06-2023 Reason for referral (narrative)* Date Encounter Description Provider Reason for Referral 07/23/22 Established Patient Cinthia WOODSONW- S Referral To Mental Health Team [facility] Work Phone: [phone]) 611-658803-06-2023 Instructions Includes: Instructions for all patient encounters Instructions to patient Intervention and counseling on cessation of tobacco use, 3-10 minutes Discussed medication and nicotine replacement for tobacco cessation Last Documented On 3 1:02PM ; [facility] Intervention and counseling on cessation of tobacco use, 3-10 minutes Discussed medication and nicotine replacement for tobacco cessation Last Documented On 3 1:13PM ; [facility] Education and Decision Aids were provided during visit for: Discussed nutritional needs 36 teach healthy choices including fruits and vegetables Last Documented On 3 12:20PM ; [facility] Patient education about a pr oper diet 36 Last Documented On 3 12:20PM ; [facility] Discussed concerns about exe rcise : promote physical activity Last Documented On 3 12:20PM ; [facility] Referred Patient to a Diabet es Self-Management Program Last Documented On 3 1:46PM ; [facility] Work Phone: 1([phone]) 189-950403-06-2023 Instructions Includes: Instructions for all patient encounters Instructions to patient Intervention and counseling on cessation of tobacco use, 3-10 minutes Discussed medication and nicotine replacement for tobacco cessation Last Documented On 3 1:02PM ; [facility] Intervention and counseling on cessation of tobacco use, 3-10 minutes Discussed medication and nicotine replacement for tobacco cessation Last Documented On 3 1:13PM ; [facility] Education and Decision Aids were provided during visit for: [facility] introduced patient to [facility] integrated model of care. ~[facility] offered active and supportive listening, normalized emotions and feelings, and processed current stressors. ~Discussed healthy coping skills and positive supports in patient's life. ~Discussed healthy lifestyle behaviors. ~ Last Documented On 3 12:10AM ; [facility] Discussed nutritional needs 36 teach healthy choices including fruits and vegetables Last Documented On 3 12:20PM ; [facility] Patient education about a pr oper diet 36 Last Documented On 3 12:20PM ; [facility] Discussed concerns about exe rcise : promote physical activity Last Documented On 3 12:20PM ; [facility] Referred Patient to a Diabet es Self-Management Program Last Documented On 3 1:46PM ; [facility] Work Phone: 1([phone]) 773-526103-04-2023 History general Narrative - Reported Includes: Medical History in patient's chart Description Last Updated A recent examination by an ophthalmologi st 07/21/2022 07/23/2022 Last Documented On 3 2:32PM ; [facility] History of diabetes mellitus 07/23/2022 Last Documented On 3 2:32PM ; [facility] History of systemic hypertension 023 Last Documented On 3 2:32PM ; [facility] No previous hospitalizations 07/23/2022 Last Documented On 3 2:32PM ; [facility] Recent immunization for flu 07/23/2022 Last Documented On 3 2:32PM ; [facility] Work Phone: 1(150) 446-979303-04-2023 History general Narrative - Reported Includes: Medical History in patient's chart Description Last Updated A recent examination by an ophthalmologi st 07/21/2022 results in eye 06/04/2023 Last Documented On 4 11:53AM ; [facility] No previous hospitalizations 05/10/2023 Last Documented On 3 10:52AM ; [facility] Recent eye exam showed no apparent retin opathy present 05/10/2023 Last Documented On 3 10:52AM ; [facility] Not planning to have a baby in the next 12 months 04/18/2023 Last Documented On 3 10:11PM ; [facility] No previous suicide attempt 07/24/2022 Last Documented On 3 12:17AM ; [facility] History of diabetes mellitus 07/23/2022 Last Documented On 3 2:32PM ; [facility] History of systemic hypertension 023 Last Documented On 3 2:32PM ; [facility] Recent immunization for flu 07/23/2022 Last Documented On 3 2:32PM ; [facility] Work Phone: [phone]) 811-868403-04-2023 History general Narrative - Reported Includes: Medical History in patient's chart Description Last Updated A recent examination by an ophthalmologi st 07/21/2022 results in eye 06/04/2023 Last Documented On 4 11:53AM ; [facility] No previous hospitalizations 05/10/2023 Last Documented On 3 10:52AM ; [facility] Recent eye exam showed no apparent retin opathy present 05/10/2023 Last Documented On 3 10:52AM ; [facility] Not planning to have a baby in the next 12 months 04/18/2023 Last Documented On 3 10:11PM ; [facility] No previous suicide attempt 07/24/2022 Last Documented On 3 12:17AM ; [facility] History of diabetes mellitus 07/23/2022 Last Documented On 3 2:32PM ; [facility] History of systemic hypertension 023 Last Documented On 3 2:32PM ; [facility] Recent immunization for flu 07/23/2022 Last Documented On 3 2:32PM ; [facility] Work Phone: 1([phone]) 361-116802-28-2023 NoteCONSULTATION CONSULTATION DATE: 07/17/2022 TO: Dr. Prado [...] as tolerated. To reduce the use of [place] from 5 mg pills q.i.d. to 5 mg pill one b.i.d. as tolerated. Again, I have requested physical therapy for the patient as well. I have gone over the details with the patient. All her questions answered. She agreed to proceed with the outlined plan.[id number] Evaluation note* Encounter Date Diagnosis Assessment Notes [...] understanding and is agreeable to treatment plan [employer] Other Evaluation noteNo assessment information available [facility] Work Phone: Evaluation note Includes: Assessments for all patient encounters Findings Encounter Date [Z68.36 - Body mass index [B KS] 36.0-36.9, adult] assessment of body mass index Medical Established Patient with Latia Sparks PIPELINE DISPATCH OPERATOR 08/02/2022 Last Documented On 3 1:35PM ; [facility] Intervention and counseling on cessation of tobacco use, 3-10 minutes Discussed medication and nicotine replacement for tobacco cessation Medical Established Patient with Latia Sparks PIPELINE DISPATCH OPERATOR 08/02/2022 Last Documented On 3 1:35PM ; [facility] Visit for: person consulting for explanation of examination or test findings Medical Established Patient with Latia Sparks PIPELINE DISPATCH OPERATOR 08/02/2022 Last Documented On 3 1:35PM ; [facility] Generalized anxiety disorder Established Shirley ent with Cinthia Stone OYSTER FLOATER 07/23/2022 Last Documented On 3 12:17AM ; [facility] Intervention and counseling on cessation of tobacco use, 3-10 minutes Discussed medication and nicotine replacement for tobacco cessation Established Patient with Cinthia Stone OYSTER FLOATER 07/23/2022 Last Documented On 3 12:17AM ; [facility] Moderate recurrent major depression E stablished Patient with Cinthia Stone OYSTER FLOATER 07/23/2022 Last Documented On 3 12:17AM ; [facility] Nicotine dependence Established Patient with Cinthia Stone OYSTER FLOATER 07/23/2022 Last Documented On 3 12:17AM ; [facility] Primary insomnia Established Patient with Deysi pugh Stone OYSTER FLOATER 07/23/2022 Last Documented On 3 12:17AM ; [facility] [Z68.36 - Body mass index [B KS] 36.0-36.9, adult] assessment of body mass index Medical New Patient with Latia Sparks PIPELINE DISPATCH OPERATOR 07/23/2022 Last Documented On 3 2:32PM ; [facility] Diabetes Risk Test Score was nine score 07/23/2022 Medical New Patient with Latia Sparks PIPELINE DISPATCH OPERATOR 07/23/2022 Last Documented On 3 2:32PM ; [facility] Intervention and counseling on cessation of tobacco use, 3-10 minutes Discussed medication and nicotine replacement for tobacco cessation Medical New Patient with Latia Sparks PIPELINE DISPATCH OPERATOR 07/23/2022 Last Documented On 3 2:32PM ; [facility] Screening for Hep C Medical New Patient with Nad yelitza Sparks [facility] 07/23/2022 Last Documented On 3 2:32PM ; [facility] Screening for HIV Medical New Patient with Hiren Sparks PIPELINE DISPATCH OPERATOR 07/23/2022 Last Documented On 3 2:32PM ; [facility] Venipuncture was performed Medical New Patient w dmitry Sparks [facility] 07/23/2022 Last Documented On 3 2:32PM ; [facility] Visit for routine adult H&P without abnormal findings Medical New Patient with Latia Sparks PIPELINE DISPATCH OPERATOR 07/23/2022 Last Documented On 3 2:32PM ; [facility] Work Phone: Evaluation note Includes: Assessments for all patient encounters Findings Encounter Date [Z68.36 - Body mass index [B KS] 36.0-36.9, adult] assessment of body mass index Medical Established Patient with Latia Sparks PIPELINE DISPATCH OPERATOR 08/02/2022 Last Documented On 3 1:36PM ; [facility] Intervention and counseling on cessation of tobacco use, 3-10 minutes Discussed medication and nicotine replacement for tobacco cessation Medical Established Patient with Latia Sparks PIPELINE DISPATCH OPERATOR 08/02/2022 Last Documented On 3 1:36PM ; [facility] Visit for: person consulting for explanation of examination or test findings Medical Established Patient with Latia Sparks PIPELINE DISPATCH OPERATOR 08/02/2022 Last Documented On 3 1:36PM ; [facility] Generalized anxiety disorder BH Established Shirley ent with Cinthia PARRISH 07/23/2022 Last Documented On 3 12:17AM ; [facility] Intervention and counseling on cessation of tobacco use, 3-10 minutes Discussed medication and nicotine replacement for tobacco cessation Established Patient with Cinthia Stone OYSTER FLOATER 07/23/2022 Last Documented On 3 12:17AM ; [facility] Moderate recurrent major depression E stablished Patient with Cinthia Stone OYSTER FLOATER 07/23/2022 Last Documented On 3 12:17AM ; [facility] Nicotine dependence Established Patient with Cinthia Stone OYSTER FLOATER 07/23/2022 Last Documented On 3 12:17AM ; [facility] Primary insomnia Established Patient with Deysi pugh Stone OYSTER FLOATER 07/23/2022 Last Documented On 3 12:17AM ; [facility] [Z68.36 - Body mass index [B KS] 36.0-36.9, adult] assessment of body mass index Medical New Patient with Latia Sparks PIPELINE DISPATCH OPERATOR 07/23/2022 Last Documented On 3 2:32PM ; [facility] Diabetes Risk Test Score was nine score 07/23/2022 Medical New Patient with Latia Sparks PIPELINE DISPATCH OPERATOR 07/23/2022 Last Documented On 3 2:32PM ; [facility] Intervention and counseling on cessation of tobacco use, 3-10 minutes Discussed medication and nicotine replacement for tobacco cessation Medical New Patient with Latia Sparks PIPELINE DISPATCH OPERATOR 07/23/2022 Last Documented On 3 2:32PM ; [facility] Screening for Hep C Medical New Patient with Nad yelitza Sparks PIPELINE DISPATCH OPERATOR 07/23/2022 Last Documented On 3 2:32PM ; [facility] Screening for HIV Medical New Patient with Hiren Sparks PIPELINE DISPATCH OPERATOR 07/23/2022 Last Documented On 3 2:32PM ; [facility] Venipuncture was performed Medical New Patient w dmitry Sparks PIPELINE DISPATCH OPERATOR 07/23/2022 Last Documented On 3 2:32PM ; [facility] Visit for routine adult H&P without abnormal findings Medical New Patient with Latia Sparks PIPELINE DISPATCH OPERATOR 07/23/2022 Last Documented On 3 2:32PM ; [facility] Work Phone: Evaluation note Includes: Assessments for all patient encounters Findings Encounter Date [Z68.35 - Body mass index [B KS] 35.0-35.9, adult] assessment of body mass index Medical Established Patient with Latia Sparks PIPELINE DISPATCH OPERATOR 05/10/2023 Last Documented On 3 10:52AM ; [facility] Nicotine dependence Medical Established Patient with Latia Sparks PIPELINE DISPATCH OPERATOR 05/10/2023 Last Documented On 3 10:52AM ; [facility] Visit for: preoperative exam Medical Est ablished Patient with Latia Sparks PIPELINE DISPATCH OPERATOR 05/10/2023 Last Documented On 3 10:52AM ; [facility] Moderate recurrent major depression BH E stablished Patient with Janina Meghan OYSTER FLOATER-S 04/18/2023 Last Documented On 3 1:42PM ; [facility] [Z68.35 - Body mass index [B KS] 35.0-35.9, adult] assessment of body mass index Medical Established Patient with Latia Sparks PIPELINE DISPATCH OPERATOR 04/18/2023 Last Documented On 3 10:11PM ; [facility] Nicotine dependence Medical Established Patient with Latia Sparks PIPELINE DISPATCH OPERATOR 04/18/2023 Last Documented On 3 10:11PM ; [facility] 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 Medical Established Patient with Latia Sparks PIPELINE DISPATCH OPERATOR 04/18/2023 Last Documented On 3 10:11PM ; [facility] Assessment of body mass index Medical Es tablished Patient with Latia Sparks PIPELINE DISPATCH OPERATOR 11/15/2022 Last Documented On 3 2:53PM ; [facility] Generalized anxiety disorder BH Establis hed Patient with Janina Meghan OYSTER FLOATER-S 11/08/2022 Last Documented On 3 10:03PM ; [facility] Hyperlipidemia Nurse Visit with Latia Sparks PIPELINE DISPATCH OPERATOR 11/08/2022 Last Documented On 3 2:16PM ; [facility] Venipuncture was performed Nurse Visit with Kathia gamino Sparks PIPELINE DISPATCH OPERATOR 11/08/2022 Last Documented On 3 2:16PM ; [facility] [Z68.36 - Body mass index [B KS] 36.0-36.9, adult] assessment of body mass index Medical Established Patient with Latia Sparks PIPELINE DISPATCH OPERATOR 08/02/2022 Last Documented On 3 1:36PM ; [facility] Intervention and counseling on cessation of tobacco use, 3-10 minutes Discussed medication and nicotine replacement for tobacco cessation Medical Established Patient with Latia Hoffmanim PIPELINE DISPATCH OPERATOR 08/02/2022 Last Documented On 3 1:36PM ; [facility] Visit for: person consulting for explanation of examination or test findings Medical Established Patient with Latia Hoffmanim PIPELINE DISPATCH OPERATOR 08/02/2022 Last Documented On 3 1:36PM ; [facility] Generalized anxiety disorder Establis hed Patient with Cinthia Stone OYSTER FLOATER-S 07/23/2022 Last Documented On 3 12:17AM ; [facility] Intervention and counseling on cessation of tobacco use, 3-10 minutes Discussed medication and nicotine replacement for tobacco cessation Established Patient with Cinthia Stone OYSTER FLOATER-S 07/23/2022 Last Documented On 3 12:17AM ; [facility] Moderate recurrent major depression E stablished Patient with Cinthia Stone OYSTER FLOATER-S 07/23/2022 Last Documented On 3 12:17AM ; [facility] Nicotine dependence Established Patient with Cinthia Stone OYSTER FLOATER-S 07/23/2022 Last Documented On 3 12:17AM ; [facility] Primary insomnia Established Patient with Deysi pugh Stone OYSTER FLOATER-S 07/23/2022 Last Documented On 3 12:17AM ; [facility] [Z68.36 - Body mass index [B KS] 36.0-36.9, adult] assessment of body mass index Medical New Patient with Latia Sparks PIPELINE DISPATCH OPERATOR 07/23/2022 Last Documented On 3 2:32PM ; [facility] Diabetes Risk Test Score was nine score 07/23/2022 Medical New Patient with Latia Hoffmanim PIPELINE DISPATCH OPERATOR 07/23/2022 Last Documented On 3 2:32PM ; [facility] Center Intervention and counseling on cessation of tobacco use, 3-10 minutes Discussed medication and nicotine replacement for tobacco cessation Medical New Patient with Latia Sparks [facility] 07/23/2022 Last Documented On 3 2:32PM ; [facility] Screening for Hep C Medical New Patient with Nad yelitza Sparks [facility] 07/23/2022 Last Documented On 3 2:32PM ; [facility] Screening for HIV Medical New Patient with Hiren Sparks [facility] 07/23/2022 Last Documented On 3 2:32PM ; [facility] Venipuncture was performed Medical New Patient w dmitry Sparks [facility] 07/23/2022 Last Documented On 3 2:32PM ; [facility] Visit for routine adult H&P without abnormal findings Medical New Patient with Latia Sparks [facility] 07/23/2022 Last Documented On 3 2:32PM ; [facility] Work Phone: Evaluation note* Diagnosis Preop examination- Primary Unspecified pre-operative examination Type 2 diabetes mellitus without complication, without long-term current use of insulin ([facility]) Hypertension, unspecified type Preop examination Unspecified pre-operative examination Type 2 diabetes mellitus without complication, without long-term current use of insulin ([facility]) Hypertension, unspecified type documented [facility] this encounter [facility]: Assessments for all patient encounters Findings Encounter Date [Z68.35 - Body mass index [B KS] 35.0-35.9, adult] assessment of body mass index Medical Established Patient with Latia Sparks [facility] 06/04/2023 Last Documented On 4 11:53AM ; [facility] Nicotine dependence Medical Established Patient with Latia Sparks [employer] 06/04/2023 Last Documented On 4 11:53AM ; [facility] [Z68.35 - Body mass index [B KS] 35.0-35.9, adult] assessment of body mass index Medical Established Patient with Latia Sparks [employer] DISPATCH OPER[employer] 05/10/2023 Last Documented On 3 10:52AM ; [facility] Nicotine dependence Medical Established Patient with Latia Sparks [employer] DISPATCH OPER[employer] 05/10/2023 Last Documented On 3 10:52AM ; [facility] Visit for: preoperative exam Medical Est ablished Patient with Latia Sparks [employer]EL[employer] DISPATCH OPERATOR 05/10/2023 Last Documented On 3 10:52AM ; [facility] Moderate recurrent major depression BH E stablished Patient with Janina Meghan [facility] 04/18/2023 Last Documented On 3 1:42PM ; [facility] [Z68.35 - Body mass index [B KS] 35.0-35.9, adult] assessment of body mass index Medical Established Patient with Latia Sparks PIPELINE DISPATCH OPERATOR 04/18/2023 Last Documented On 3 10:11PM ; [facility] Nicotine dependence Medical Established Patient with Latia Sparks PIPELINE DISPATCH OPERATOR 04/18/2023 Last Documented On 3 10:11PM ; [facility] 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 Medical Established Patient with Latia Sparks [employer]EL[employer] DISPATCH OPERATOR 04/18/2023 Last Documented On 3 10:11PM ; [facility] Assessment of body mass index Medical Es tablished Patient with Latia Sparks PIPEL[employer] DISPATCH OPERATOR 11/15/2022 Last Documented On 3 2:53PM ; [facility] Generalized anxiety disorder BH Establis hed Patient with Janina Meghan [facility] 11/08/2022 Last Documented On 3 10:03PM ; [facility] Hyperlipidemia Nurse Visit with Latia Sparks PIPELINE DISPATCH OPERATOR 11/08/2022 Last Documented On 3 2:16PM ; [facility] Venipuncture was performed Nurse Visit with Kathia gamino Sparks PIPELINE DISPATCH OPERATOR 11/08/2022 Last Documented On 3 2:16PM ; [facility] [Z68.36 - Body mass index [B KS] 36.0-36.9, adult] assessment of body mass index Medical Established Patient with Latia Sparks PIPELINE DISPATCH OPERATOR 08/02/2022 Last Documented On 3 1:36PM ; [facility] Intervention and counseling on cessation of tobacco use, 3-10 minutes Discussed medication and nicotine replacement for tobacco cessation Medical Established Patient with Latia Hoffmanim PIPELINE DISPATCH OPERATOR 08/02/2022 Last Documented On 3 1:36PM ; [facility] Visit for: person consulting for explanation of examination or test findings Medical Established Patient with Latia Hoffmanim PIPELINE DISPATCH OPERATOR 08/02/2022 Last Documented On 3 1:36PM ; [facility] Generalized anxiety disorder Establis hed Patient with Cinthia Stone [facility] 07/23/2022 Last Documented On 3 12:17AM ; [facility] Intervention and counseling on cessation of tobacco use, 3-10 minutes Discussed medication and nicotine replacement for tobacco cessation Established Patient with Cinthia Stone [facility] 07/23/2022 Last Documented On 3 12:17AM ; [facility] Moderate recurrent major depression E stablished Patient with Cinthia Stone [facility] 07/23/2022 Last Documented On 3 12:17AM ; [facility] Nicotine dependence Established Patient with Cinthia Stone [facility] 07/23/2022 Last Documented On 3 12:17AM ; [facility] Primary insomnia Established Patient with Deysi pugh Stone [facility] 07/23/2022 Last Documented On 3 12:17AM ; [facility] [Z68.36 - Body mass index [B KS] 36.0-36.9, adult] assessment of body mass index Medical New Patient with Latia Sparks PIPELINE DISPATCH OPERATOR 07/23/2022 Last Documented On 3 2:32PM ; [facility] Diabetes Risk Test Score was nine score 07/23/2022 Medical New Patient with Latia Hoffmanim PIPELINE DISPATCH OPERATOR 07/23/2022 Last Documented On 3 2:32PM ; [facility] Intervention and counseling on cessation of tobacco use, 3-10 minutes Discussed medication and nicotine replacement for tobacco cessation Medical New Patient with Latia Hoffmanim PIPELINE DISPATCH OPERATOR 07/23/2022 Last Documented On 3 2:32PM ; [facility] Screening for Hep C Medical New Patient with Nad yelitza Sparks PIPELINE DISPATCH OPERATOR 07/23/2022 Last Documented On 3 2:32PM ; [facility] Screening for HIV Medical New Patient with Hiren Sparks PIPELINE DISPATCH OPERATOR 07/23/2022 Last Documented On 3 2:32PM ; [facility] Venipuncture was performed Medical New Patient w dmitry Sparks PIPELINE DISPATCH OPERATOR 07/23/2022 Last Documented On 3 2:32PM ; [facility] Visit for routine adult H&P without abnormal findings Medical New Patient with Latia Sparks PIPELINE DISPATCH OPERATOR 07/23/2022 Last Documented On 3 2:32PM ; [facility] Work Phone: History general Narrative - Reported* Type Description Date Medical History diabetes Medical History htn Medical History depression Medical History neuropathy Medical History schizophrenia [employer] Other History general Narrative - Reported Includes: Medical History in patient's chart Description Last Updated No previous suicide attempt 07/24/2022 Last Documented On 3 12:17AM ; [facility] A recent examination by an ophthalmologi st 07/21/2022 07/23/2022 Last Documented On 3 2:32PM ; [facility] History of diabetes mellitus 07/23/2022 Last Documented On 3 2:32PM ; [facility] History of systemic hypertension 023 Last Documented On 3 2:32PM ; [facility] No previous hospitalizations 07/23/2022 Last Documented On 3 2:32PM ; [facility] Recent immunization for flu 07/23/2022 Last Documented On 3 2:32PM ; [facility] Work Phone: History general Narrative - Reported Includes: Medical History in patient's chart Description Last Updated No previous hospitalizations 05/10/2023 Last Documented On 3 10:52AM ; [facility] Recent eye exam showed no apparent retin opathy present 05/10/2023 Last Documented On 3 10:52AM ; [facility] Not planning to have a baby in the next 12 months 04/18/2023 Last Documented On 3 10:11PM ; [facility] No previous suicide attempt 07/24/2022 Last Documented On 3 12:17AM ; [facility] A recent examination by an ophthalmologi st 07/21/2022 07/23/2022 Last Documented On 3 2:32PM ; [facility] History of diabetes mellitus 07/23/2022 Last Documented On 3 2:32PM ; [facility] History of systemic hypertension 023 Last Documented On 3 2:32PM ; [facility] Recent immunization for flu 07/23/2022 Last Documented On 3 2:32PM ; [facility] Work Phone: History of Present illness Narrative History of Present Illness not supported for this document type No History of Present Illness [facility] Work Phone: Instructions* Name Dates Details Instructions not documented [facility] Work Phone: Patient problem outcome Narrative Includes: Evaluations & Outcomes for active Goals No Outcomes [facility]ed[facility] Work Phone: Progress note* Progress note Date Encounter Last Documented by 08/02/2022 Medical Established Patient Last documented on 08/02/2022; 1:35 PM, Latia MAYORGA; [facility] Active Problems & Conditions - E11.610 [...] results, Pt needs tresiba prescribed to the [facility] pharmacy just for today. Referred Here No [...] has been provided. The patient lives a fdc, where food is cooking. Denies any craving [...] previous hospitalizations. A recent examination by an brusher tender 07/21/2022. Immunization History: Recent immunization for flu. [...] BP-Sitting R138/82 mmHg BP Cuff SizeLarge Pulse Rate-Gqwnryj85 bpm Pulse RhythmRegular Respiration Rate18 per min Temp-Qddbksrq14.5 F Nummvx95 in Onmhvd289 lbs Body Mass Index36.7 kg/m2 Body Surface Area2 m2 Oxygen Jsjhseusfj09 % O2 DeviceNone (Room Air) EsM446 % General Appearance: - Awake. - Alert. [...] and diastolic 80-89 mmHg diastolic 80-89 mmHg. [facility] Progress note Date Encounter Last Documented by 06/18/2023 Chart Update Last documented on 06/18/2023; 8:58 AM, Latia MAYORGA; [facility] Active Problems & Conditions - 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 - I10 - Essential Hypertension - F41.1 - Generalized Anxiety Disorder - Hyperlipidemia - F33.1 - Major Depression Recurrent Moderate - F17.200 - Nicotine Dependence Uncomplicated - F51.01 - Primary Insomnia Chief Complaint Phone Call - Chief Concern: 06.18.23 @ 0830am, POULTRY HUSBANDRY TEACHER called Carolyn from [facility] stating the patient has not been getting out of bed, expresses concerns of patient developing blood clot. The patient did have an incident where she could not get out of the bedside commode. POULTRY HUSBANDRY TEACHER speak with patient who stated she has been walking around her room, but the patient did express concerns she might not return to [facility] living if she goes over to care home facility. POULTRY HUSBANDRY TEACHER once again spoke with Carolyn, who agreed to have physical therapy evaluate patient to determine whether she goes to care home or stay in [facility] living. . Current Medication - 1st [...] previous hospitalizations. A recent examination by an brusher tender 07/21/2022 results in eye. Recent eye exam showed no apparent retinopathy present. Immunization History: Recent immunization for flu. : Not planning to have a baby in the next 12 months. Diagnoses: Systemic hypertension. Diabetes mellitus Surgical: - Cholecystectomy - Hernia repair - Hysterectomy - Tubal ligation - Back surgery Allergies - [place] Reaction: Hives / Urticaria, Shock - Mellaril - PENICILLINS Reaction: Hives / Urticaria - Topamax Family History Maternal: Type 1 diabetes mellitus [facility] Narrative - Reported Review of Systems not supported for this document type No Review of Systems RecordedG[facility] Work Phone: Summary Purpose Family History Grandmother Name Dates Details Family history of cerebrovas cular accident (CVA)(V17.1, Z82.3) Status:Active Father Name Dates Details Family history of lung cance r(V16.1, Z80.1) Status:Active Description Last Updated Maternal history of type 1 diabetes pilar itus 07/23/2022 Last Documented On 3 2:32PM ; [facility] Description Last Updated Maternal history of type 1 diabetes pilar itus 07/23/2022 Last Documented On 3 2:32PM ; [facility] Description Last Updated Maternal history of type 1 diabetes pilar itus 07/23/2022 Last Documented On 3 2:32PM ; [facility] Description Last Updated Maternal history of type 1 diabetes pilar itus 07/23/2022 Last Documented On 3 2:32PM ; [facility] Description Last Updated Maternal history of type 1 diabetes pilar itus 07/23/2022 Last Documented On 3 2:32PM ; [facility] Description Last Updated Maternal history of type 1 diabetes pilar itus 07/23/2022 Last Documented On 3 2:32PM ; [facility] Description Last Updated Maternal history of type 1 diabetes pilar itus 07/23/2022 Last Documented On 3 2:32PM ; [facility] Description Last Updated Maternal history of type 1 diabetes pilar itus 07/23/2022 Last Documented On 3 2:32PM ; [facility] Description Last Updated Maternal history of type 1 diabetes pilar itus 07/23/2022 Last Documented On 3 2:32PM ; [facility] Description Last Updated Maternal history of type 1 diabetes pilar itus 07/23/2022 Last Documented On 3 2:32PM ; [facility] Description Last Updated Maternal history of type 1 diabetes pilar itus 07/23/2022 Last Documented On 3 2:32PM ; [facility] Description Last Updated Maternal history of type 1 diabetes pilar itus 07/23/2022 Last Documented On 3 2:32PM ; [facility] Advance Directives No Advanced Directives Records [...] complication, without long-term current use of insulin ([facility]) Hypertension, unspecified type Procedures ECG 12 lead [place], [address] [place] [address] Referral ID Status Reason Start Date Expiration Date V isits Requested Visits Authorized [id number] Pending Review 05/08/2023 05/07/2024 1 1 Additional Source Comments INFORMATION SOURCE (unrecogn ized section and content) DATE CREATED AUTHOR 03/14/2018 [facility] DATE CREATED AUTHOR AUTHOR'S ORGANIZ ATION 05/28/2018 [facility] DATE CREATED AUTHOR AUTHOR'S ORGANIZ ATION 02/05/2019 [facility] DATE CREATED AUTHOR AUTHOR'S ORGANIZ ATION 02/28/2019 [facility] DATE CREATED AUTHOR AUTHOR'S ORGANIZ ATION 03/25/2019 [facility] DATE CREATED AUTHOR AUTHOR'S ORGANIZ ATION 01/16/2022 [facility] DATE CREATED AUTHOR AUTHOR'S ORGANIZ ATION 07/13/2022 [facility] DATE CREATED AUTHOR AUTHOR'S ORGANIZ ATION 09/30/[address] [facility] DATE CREATED AUTHOR AUTHOR'S ORGANIZ ATION 11/11/2022 [facility] DATE CREATED AUTHOR AUTHOR'S ORGANIZ ATION 05/26/2023 [facility] DATE CREATED AUTHOR AUTHOR'S ORGANIZ ATION 06/15/2023 [facility] EPIC Care Teams (unrecognized sec tion and content) Team Status: Inactive Member Role Status Dates Constantine Hernandez MD Attending Provider Active Paper Final Inspector Relationship Specialty Start Date End Date Geraldo Prado MD [address] [place] [address] PCP - General Family Medicine 10/29/19 05/09/23 [...] or prosecute any alcohol or drug abuse patient.[facility] FOR RECORDS PERTAINING TO PATIENTS WHO [...] BE BASED ON THE PRIMARY CLINICAL RECORDS. [employer] [facility]. provides no warranty or guarantee of the accuracy or completeness of information in this document.
[2023-06-19 08:24] LABS: Basophils Percent Auto 0.3 % (0.2-2.0); Eosinophils Absolute Auto 0.3 10^3/uL (0.0-0.7); Eosinophils Percent Auto 4.3 % (0.9-7.0); Hematocrit 32.6 % (36.0-48.0); Hemoglobin 10.7 g/dL (12.0-16.0); Immature Granulocytes Abs Auto 0.05 10^3/uL (0.00-0.03); Immature Granulocytes Pct Auto 0.7 % (0.0-0.5); Lymphocytes Absolute Auto 1.5 10^3/uL (1.2-3.8); Lymphocytes Percent Auto 20.2 % (20.5-60.0); Mean Corpuscular HGB Conc 32.8 g/dL (29.9-35.2); Mean Corpuscular Hemoglobin 29.2 pg (26.7-34.0); Mean Corpuscular Volume 88.8 fL (81.0-99.0); Mean Platelet Volume 11.4 fL (9.5-13.5); Monocytes Absolute Auto 0.5 10^3/uL (0.3-0.8); Monocytes Percent Auto 7.1 % (1.7-12.0); Neutrophils Absolute Auto 5.1 10^3/uL (1.4-6.5); Neutrophils Percent Auto 67.4 % (43.0-75.0); Platelet Count 165 10^3/uL (150-450); Red Blood Count 3.67 10^6/uL (4.20-5.40); Red Cell Distribution Width 14.6 % (11.0-15.0); White Blood Count 7.6 10^3/uL (4.0-11.0)
[2023-06-19 08:27] LABS: Anion Gap 9.9; BUN Creatinine Ratio 33.7; Calcium 10.4 mg/dL (8.5-10.1); Chloride 108 mmol/L (98-107); Estimated GFR (African America >60 (>=60); Estimated GFR (Non-African Ame 54 (>=60); Glucose 80 mg/dL (74-106); Magnesium 2.2 mg/dL (1.8-2.4); Phosphorus 3.3 mg/dL (2.6-4.7); Potassium 3.9 mmol/L (3.5-5.1); Sodium 144 mmol/L (136-145)
== END 2023-06-19 02:11 | disposition home or self-care (01) ==
LOC: LAB 02:10
DX: E11.65 Type 2 diabetes mellitus with hyperglycemia (principal); E55.9 Vitamin D deficiency, unspecified; N18.30 Chronic kidney disease, stage 3 unspecified; E83.42 Hypomagnesemia; I12.9 Hypertensive chronic kidney disease with stage 1 through stage 4 chronic kidney disease, or unspecified chronic kidney disease; E13.22 Other specified diabetes mellitus with diabetic chronic kidney disease; N18.31 Chronic kidney disease, stage 3a; D63.1 Anemia in chronic kidney disease; R80.8 Other proteinuria; R76.8 Other specified abnormal immunological findings in serum
CPT/HCPCS: 36415; 80048; 82306; 83036; 83735; 84100; 85025

== ENCOUNTER 2023-06-19 09:09 | Outpatient (REF) | payer MEDICARE, MEDICAID, SELFPAY ==
--- OUTSIDE RECORDS SUMMARY | 2023-06-19 09:19 | XMS_ITS | CCD ---
Author Name Unknown Address [id number] [place] [address] Organization [facility] Care Team Providers Care Ambulatory Care Coordinator Name Role Phone Morgan Barcenas Unavailable Unavailable PROVIDER, UNKNOWN Unavailable Unavailable Ahchandler Ilia Unavailable Unavailable Morgan Barcenas Unavailable Unavailable PROVIDER, UNKNOWN Unavailable Unavailable Ahmed, Ilia Unavailable Unavailable STIVEN ANDINO Unavailable Unavailable Unknown, Referring Provider Unavailable Unav ailable Leah Brock Unavailable Unavailable Ahchandler, Ilia Unavailable Unavailable MD Constantine Hernandez Attending Provider Isidra Hernandez Unavailable Sparks PLANNING COORDINATOR, Latia Attending Unavailable Sparks PLANNING COORDINATOR, Latia Primary Care Provider Unavailable Primary Care Provider Unavailabl e Sparks PLANNING COORDINATOR, Latia Primary Care Provider MISC, DR BECERRA [...] Unavailable MISC, DOCTOR Admitting Unavailable MISC, DR BEECRRA Attending Unavailable NADGERALDO SNYDER A Primary Care Unavailable MISC, DR BECERRA Consulting Unavailable SPARKS, LATIA Referring Unavailable SPARKS, LATIA Referring Unavailable Unavailable Primary Care Provider Unavailmiranda Prado MD, Geraldo Primary Care Provider HARDY JAY Admitting Unavailable HARDY JAY Attending [...] Anti-Epileptic Agents (1 source) topiramate [facility] Work Phone: Penicillins (antibiotic) (1 source) Penicillins; Translations: [Penicillins] Drug Allergy [facility] [facility] Work Phone: (2 sources) Haloperidol; Translations: [Haldol] Drug Allergy 0 Unknown [facility] (1 source) Penicillin V Drug Allergy Unknown [employer] Other (2 sources) Thioridazine; Translations: [THIORIDAZINE] Drug Allergy 3 Unknown [facility] (3 sources) topiramate; Translations: [TOPIRAMATE] Drug Allergy 8 Unknown [employer] Other (3 sources) Tai Flavor; Translations: [TAI FLAVOR] Drug allergy 8 Anaphylaxis, Swelling [facility] (7 sources) tai allergenic extract Drug Allergy 0 Hives / Urticaria, Shock [facility] (1 source) Penicillin Drug Allergy 0 [facility] (7 sources) topiramate Drug Allergy 0 [facility] (8 sources) Penicillins; Translations: [PENICILLINS] Allergy to substance 8 Hives / Urticaria, Hives, Itching [facility] (6 sources) Thioridazine Drug Allergy 3 [facility] (2 sources) Temazepam; Translations: [TEMAZEPAM] Drug Allergy 8 [facility]See Comments[facility] Haloperidol; Translations: [HALOPERIDOL] Drug Allergy 3 [facility] Medications Current Medications Medication Drug Class(es) Dates Sig (Normalized) Sig (Original) 1st Tier Unifine Pentips Plus 33G X 4 MM Miscellaneous (8 sources) Start: 08-28-2022 1st Tier Unifine Pentips Plus 33G X 4 MM Miscellaneous 08/28/2022 Provider: Latia Sparks [facility] Aircast Sport Ankle Brace/Left - (1 source) Start: 09-21-2021 Aircast Sport Ankle Brace/Left - as directed September, Active amitriptyline hydrochloride 25 mg oral tablet (20 sources) Tricyclic Antidepressant Start: 02-06-2023 Amitriptyline HCl 25 MG Oral Tablet 02/06/2023 Provider: Latia Sparks PLANNING COORDINATOR Start: 08-09-2022 End: 11-15-2022 Amitriptyline HCl 25 MG Oral Tablet 11/08/2022 - 11/15/2022 Provider: Latia Sparks PLANNING COORDINATOR Start: 07-06-2022 End: 08-02-2022 Amitriptyline HCl 25 [...] Tablet 02/06/2023 - 11/15/2022 Provider: Latia Sparks PLANNING COORDINATOR Start: 02-06-2023 End: 11-15-2022 amLODIPine Besylate 10 MG Or al Tablet 02/06/2023 - 11/15/2022 Provider: Latia GREENP Start: 02-06-2023 End: 11-15-2022 amLODIPine Besylate 10 MG Or al Tablet 02/06/2023 - 11/15/2022 Provider: Latia Sparks PLANNING COORDINATOR Start: 02-06-2023 End: 11-15-2022 amLODIPine Besylate 10 [...] psule 08/22/2022 - 08/02/2022 Provider: Latia Sparks PLANNING COORDINATOR Start: 08-22-2022 End: 08-02-2022 FLUoxetine HCl 10 MG Oral Ca psule 08/22/2022 - 08/02/2022 Provider: Latia GREENP Start: 08-22-2022 End: 08-02-2022 FLUoxetine HCl 10 MG Oral Ca psule 08/22/2022 - 08/02/2022 Provider: Latia GREENP Start: 08-22-2022 End: 08-02-2022 FLUoxetine HCl 10 MG Oral Ca psule 08/22/2022 - 08/02/2022 Provider: Latia MAOYRGA Start: 08-22-2022 End: 08-02-2022 FLUoxetine HCl 10 [...] t 12/18/2022 - 11/15/2022 Provider: Latia Hoffmanim PLANNING COORDINATOR Start: 12-18-2022 End: 11-15-2022 Gabapentin 600 MG Oral Table t 12/18/2022 - 11/15/2022 Provider: Latia Hoffmanim PLANNING COORDINATOR Start: 12-18-2022 End: 11-15-2022 Gabapentin 600 MG Oral Table t 12/18/2022 - 11/15/2022 Provider: Latia Sparks PLANNING COORDINATOR Start: 08-22-2022 End: 11-15-2022 Gabapentin 600 MG Oral Table t 08/22/2022 - 11/15/2022 Provider: Latia Sparks PLANNING COORDINATOR Start: 07-03-2022 End: 08-02-2022 Gabapentin 600 MG Oral Table t 07/23/2022 - 08/02/2022 Provider: Latia Sparks PLANNING COORDINATOR Gabapentin Activ e hydrALAZINE hydrochloride 25 mg oral tablet (20 sources) Arteriolar Vasodilator Start: 02-06-2023 hydrALAZINE HCl 25 M G Oral Tablet 02/06/2023 Provider: Latia Hoffmanim PLANNING COORDINATOR Start: 09-09-2022 End: 11-15-2022 hydrALAZINE HCl 25 MG Oral T ablet 11/08/2022 - 11/15/2022 Provider: Latia Sparks PLANNING COORDINATOR Start: 09-09-2022 End: 08-02-2022 hydrALAZINE HCl 25 [...] MG Oral Tablet 08/22/2022 Provider: Latia Sparks 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 #:[id number]: #[id number] Final Pathologic Diagnosis L2 vertebra, biopsy: Viable bone with fibrosis and new bone formation. Negative for granuloma and neoplasia. Report Electronically Signed Out gr/05/22/2023Nikolai Fitch MD [facility], [address] [place] [address], License number: [id number]. Clinical History Compression fracture L2. Gross Description Received in formalin labeled MICKEY, L2 vertebra , are four cores of firm crowell bone each 0.3 cm diameter and ranging from 0.3 to 1.0 cm in length. The specimen is entirely submitted in a single cassette following decalcification. (1,ns,S23 57030, m1) PV pv/05/17/2023P Specimen(s) Received L2 vertebra Fee Codes(s): 1; 18186, 16890 BASIC METABOLIC PANLon 05-10 Anion gap [Moles/Vol] 7 mmol/L Normal 5-15 [facility] Comment on above: Performed By: #### B MP #### [facility] ([id number]) [address] [place] [address] Calcium [Mass/Vol] 10.1 mg/dL Normal 8.5-10.5 [facility] Comment on above: Performed By: #### B MP #### [facility] ([id number]) [address] [place] [address] Chloride [Moles/Vol] 107 mmol/L Normal 98-109 [facility] Comment on above: Performed By: #### B MP #### [facility] ([id number]) [address] [place] [address] CO2 [Moles/Vol] 26 mmol/L Normal 22-32 [facility] Comment on above: Performed By: #### B MP #### [facility] ([id number]) [address] [place] [address] Creatinine [Mass/Vol] 0.65 mg/dL Normal 0.40-1.00 [facility] Comment on above: Result Comment: METH OD TRACEABLE TO IDMS STANDARD Performed By: #### B MP #### [facility] ([id number]) [address] [place] [address] eGFR (CKD-EPI) NON-RACE DEPENDENT >90 Normal >59 [facility] Comment on above: Result Comment: Reported eGFR is based on the CKD-EPI 2020 equation that does not use a race coefficient. Performed By: #### B MP #### [facility] ([id number]) [address] [place] [address] Glucose [Mass/Vol] 83 mg/dL Normal 65-99 [facility] Comment on above: Performed By: #### B MP #### [facility] ([id number]) [address] [place] [address] Potassium [Moles/Vol] 4.1 mmol/L Normal 3.5-5.0 [facility] Comment on above: Performed By: #### B MP #### [facility] ([id number]) [address] [place] [address] Sodium [Moles/Vol] 140 mmol/L Normal 134-146 [facility] Comment on above: Performed By: #### B MP #### [facility] ([id number]) [address] [place] [address] Urea nitrogen [Mass/Vol] 19 mg/dL Normal 5-27 [facility] Comment on above: Performed By: #### B MP #### [facility] ([id number]) [address] [place] [address] Basic Metabolic Panelon 12-2 Anion gap [Moles/Vol] 7 mmol/L 5 - 15 mmol/L [facility] Calcium [Mass/Vol] 10.1 mg/dL 8.5 - 10.5 mg/dL [facility] Chloride [Moles/Vol] 107 mmol/L 98 - 109 mmol/L [facility] CO2 [Moles/Vol] 26 mmol/L 22 - 32 mmol/L [facility] Creatinine [Mass/Vol] 0.65 mg/dL 0.40 - 1.00 mg/dL [facility] Comment on above: METHOD TRACEABLE TO IDMS STANDARD eGFR (CKD-EPI)non-race dependent - PINF [facility] Comment on above: Reported eGFR is based on the CKD-EPI 2020 equation that does not use a race coefficient. Glucose [Mass/Vol] 83 mg/dL 65 - 99 mg/dL [facility] Potassium [Moles/Vol] 4.1 mmol/L 3.5 - 5.0 mmol/L [facility] Sodium [Moles/Vol] 140 mmol/L 134 - 146 mmol/L [facility] Urea nitrogen [Mass/Vol] 19 mg/dL 5 - 27 mg/dL [facility] ECG 12 leadon 05-10-2023 TRACEMASTERVUE [facility] Comp Metabolic Profon 2022 Albumin [Mass/Vol] 4.3 g/dL Normal 3.5-5.2 [facility] Comment on above: Performed By: #### L IPR, CP #### [facility] [address] [place] [address] Principal Trainer: Genaro Angel MD Albumin/Glob Ratio 1.5 Normal 1.0-2.5 [facility] Comment on above: Performed By: #### L IPR, CP #### [facility] [address] [place] [address] Principal Trainer: Genaro Angel MD Alkaline Phos 116 U/L High 35-104 [facility] Comment on above: Performed By: #### L IPR, CP #### [facility] [address] [place] [address] Principal Trainer: Genaro Angel MD ALT [Catalytic activity/Vol] 25 U/L Normal 5-33 [facility] Comment on above: Performed By: #### L IPR, CP #### [facility] [address] [place] [address] Principal Trainer: Genaro Angel MD Anion gap [Moles/Vol] 15 mmol/L Normal 9-17 [facility] Comment on above: Performed By: #### L IPR, CP #### [facility] [address] [place] [address] Principal Trainer: Genaro Angel MD AST [Catalytic activity/Vol] 32 U/L High <32 [facility] Comment on above: Performed By: #### L IPR, CP #### [facility] [address] [place] [address] Principal Trainer: Genaro Angel MD Bilirubin [Mass/Vol] 0.2 mg/dL Low 0.3-1.2 [facility] Comment on above: Performed By: #### L IPR, CP #### [facility] [employer] [address] [place] [address] Principal Trainer: Genaro Angel MD Calcium [Mass/Vol] 10.7 mg/dL High 8.6-10.4 [facility] Comment on above: Performed By: #### L IPR, CP #### [facility] [address] [place] [address] Principal Trainer: Genaro Angel MD Chloride [Moles/Vol] 102 mmol/L Normal 98-107 [facility] Comment on above: Performed By: #### L IPR, CP #### [facility] [address] [place] [address] Principal Trainer: Genaro Angel MD CO2 [Moles/Vol] 23 mmol/L Normal 20-31 [facility] Comment on above: Performed By: #### L IPR, CP #### [facility] [address] [place] [address] Principal Trainer: Genaro Angel MD Creatinine [Mass/Vol] 0.93 mg/dL High 0.50-0.90 [facility] Comment on above: Performed By: #### L IPR, CP #### [facility] [address] [place] [address] Principal Trainer: Genaro Angel MD GFR/1.73 sq M.predicted among non-blacks MDRD (S/P/Bld) [Vol rate/Area] mL/min/{1.73_m2} Normal >60 [facility] Comment on above: Result Comment: [...] By: #### L IPR, CP #### [facility] [address] [address] Principal Trainer: Genaro Angel MD Glucose [Mass/Vol] 138 mg/dL High 70-99 [facility] Comment on above: Performed By: #### L IPR, CP #### [facility] [address] [place] [address] Principal Trainer: Genaro Angel MD Potassium [Moles/Vol] 5.3 mmol/L Normal 3.7-5.3 [facility] Comment on above: Performed By: #### L IPR, CP #### [facility] [address] [place] [address] Principal Trainer: Genaro Angel MD Protein [Mass/Vol] 7.1 g/dL Normal 6.4-8.3 [facility] Comment on above: Performed By: #### L IPR, CP #### [facility] [address] [place] [address] Principal Trainer: Genaro Angel MD Sodium [Moles/Vol] 140 mmol/L Normal 135-144 [facility] Comment on above: Performed By: #### L IPR, CP #### [facility] [address] [place] [address] Principal Trainer: Genaro Angel MD Urea nitrogen [Mass/Vol] 26 mg/dL High 8-23 [facility] Comment on above: Performed By: #### L IPR, CP #### [facility] [employer] [address] [place] [address] Principal Trainer: Genaro Angel MD Lipid Profileon 11-10-2022 Cholesterol [Mass/Vol] 152 mg/dL Normal <200 [facility] Comment on above: Result Comment: Cholesterol Guidelines: <200 Desirable 200-240 Borderline >240 Undesirable Performed By: #### L IPR, CP #### [facility] [address] [address] Principal Trainer: Genaro Angel MD Cholesterol in HDL [Mass/Vol] 30 mg/dL Low >40 [facility] Comment on above: Result Comment: HDL Guidelines: <40 Undesirable 40-59 Borderline >59 Desirable Performed By: #### L IPR, CP #### [facility] [employer] [address] [place] [address] Principal Trainer: Genaro Angel MD Cholesterol in LDL [Mass/Vol] 44 mg/dL Normal 0-130 [facility] Comment on above: Result Comment: LDL Guidelines: <100 Desirable 100-129 Near to/above Desirable 130-159 Borderline >159 Undesirable Direct (measured) LDL and calculated LDL are not interchangeable tests. Performed By: #### L IPR, CP #### [facility] [employer] [address] [place] [address] Principal Trainer: Genaro Angel MD Cholesterol.total /Cholesterol in HDL [Mass ratio] 5.1 {ratio} High <5 [facility] Comment on above: Performed By: #### L IPR, CP #### [facility] [address] [place] [address] Principal Trainer: Genaro Angel MD Triglyceride [Mass/Vol] 390 mg/dL High <150 [facility] Comment on above: Result Comment: Triglyceride Guidelines: <150 Desirable 150-199 Borderline 200-499 High >499 Very high Based on AHA Guidelines for fasting triglyceride, February 2012. Performed By: #### L IPR, CP #### [employer] [address] [place] [address] Principal Trainer: Genaro Angel MD Laboratory - Chemistry and C hemistry - challengeon 11-09-2022 Albumin [Mass/Vol] 4.3 g/dL (3.5-5.2 ) [facility] Comment on above: Note: Responsible Ob silk presser: CCEV AUTOFILE (3002) ALT [Catalytic activity/Vol] 25 U/L (5-33 ) [facility] Comment on above: Note: Responsible Ob silk presser: CCEV AUTOFILE (3002) Anion gap [Moles/Vol] 15 mmol/L (9-17 ) [facility] Comment on above: Note: Responsible Ob silk presser: CCEV AUTOFILE (3002) AST [Catalytic activity/Vol] 32 U/L High (<32 ) [facility] Comment on above: Note: Responsible Ob silk presser: CCEV AUTOFILE (3002) Bilirubin [Mass/Vol] 0.2 mg/dL Low (0.3-1.2 ) [facility] Comment on above: Note: Responsible Ob silk presser: CCEV AUTOFILE (3002) Calcium [Mass/Vol] 10.7 mg/dL High (8.6-10.4 ) [facility] Comment on above: Note: Responsible Ob silk presser: CCEV AUTOFILE (3002) Chloride [Moles/Vol] 102 mmol/L (98-107 ) [facility] Comment on above: Note: Responsible Ob silk presser: CCEV AUTOFILE (3002) Cholesterol [Mass/Vol] 152 mg/dL (<200 ) [facility] Comment on above: Note: Cholesterol Gu idelines:<200 Pyceojbej245-040 Borderline>240 UndesirableResponsible Observer: CCEV AUTOFILE (3002) Cholesterol.total /Cholesterol in HDL [Mass ratio] 5.1 {ratio} High (<5 ) [facility] Comment on above: Note: Responsible Ob silk presser: CCEV AUTOFILE (3002) CO2 [Moles/Vol] 23 mmol/L (20-31 ) [facility] Comment on above: Note: Responsible Ob silk presser: CCEV AUTOFILE (3002) Creatinine [Mass/Vol] 0.93 mg/dL High (0.50-0.90 ) [facility] Comment on above: Note: Responsible Ob silk presser: CCEV AUTOFILE (3002) GFR/1.73 sq M.predicted among non-blacks MDRD (S/P/Bld) [Vol rate/Area] mL/min/{1.73_m2} (>60 ) [facility] Comment on above: Note: These results [...] Glucose [Mass/Vol] 138 mg/dL High (70-99 ) [facility] Comment on above: Note: Responsible Ob silk presser: CCEV AUTOFILE (3002) Magnesium [Mass/Vol] 30 mg/dL Low (>40 ) [facility] Comment on above: Note: HDL Guidelines :<40 Okuvzrdcaqu57-60 Borderline>59 DesirableResponsible Observer: CCEV AUTOFILE (3002) Magnesium [Mass/Vol] 44 mg/dL (0-130 ) [facility] Comment on above: Note: LDL Guidelines :<100 Yamdewxpo191-310 Near to/above Tgoqbuypo401-114 Borderline>159 UndesirableDirect (measured) LDL and calculated LDL are not interchangeable tests.Responsible Observer: CCEV AUTOFILE (3002) Potassium [Moles/Vol] 5.3 mmol/L (3.7-5.3 ) [facility] Comment on above: Note: Responsible Ob silk presser: CCEV AUTOFILE (3002) Protein [Mass/Vol] 7.1 g/dL (6.4-8.3 ) [facility] Comment on above: Note: Responsible Ob silk presser: CCEV AUTOFILE (3002) Sodium [Moles/Vol] 140 mmol/L (135-144 ) [facility] Comment on above: Note: Responsible Ob silk presser: CCEV AUTOFILE (3002) Triglyceride [Mass/Vol] 390 mg/dL High (<150 ) [facility] Comment on above: Note: Triglyceride G uidelines:<150 Lhuotqegs159-106 Zzmpnqgmqt137-605 High>499 Very highBased on AHA Guidelines for fasting triglyceride, February 2012.Responsible Observer: CCEV AUTOFILE (3002) Urea nitrogen [Mass/Vol] 26 mg/dL High (8-23 ) [facility] Comment on above: Note: Responsible Ob silk presser: CCEV AUTOFILE (3002) No Panel Informationon 11-09 Albumin/Glob Ratio 1.5 (1.0-2.5 ) [facility] Comment on above: Note: Responsible Ob silk presser: CCEV AUTOFILE (3002) Alkaline Phos 116 U/L High (35-104 ) [facility] Comment on above: Note: Responsible Ob silk presser: CCEV AUTOFILE (3002) Reported Physicians See Note [facility] Comment on above: Note: Reported Physi cians:Ordering: Latia Sparks OMARAttending: Hiren SparksaReferring: Latia Sparks CREATININE URINEon 3 URINE CREAT 31.31 mg/dL Normal 20.00-300.0 0 [facility] Comment on above: Performed By: #### C REAU #### [facility] [address] [place] [address] Dr. Shashi Jimenez MICROALBUMIN, RAND URon 09-17 mALB 14.3 mg/L Normal <=30.0 [facility] Comment on above: Performed By: #### M ALBR #### [facility] [address] [address] [address] Shashi Jimenez PROF 14(COMP METB)on 023 Albumin [Mass/Vol] 3.7 g/dL Normal 3.4-5.0 [facility] Comment on above: Performed By: #### C MP #### [facility] [address] [address] [address] Shashi Jimenez Albumin/Globulin [Mass ratio] 0.9 {ratio} Normal [facility] Comment on above: Performed By: #### C MP #### [facility] [address] [address] [address] Shashi Jimenez ALP [Catalytic activity/Vol] 109 U/L Normal 46-116 [facility] Comment on above: Performed By: #### C MP #### [facility] [address] [address] [address] Shashi Jimenez ALT [Catalytic activity/Vol] 39 U/L Normal 14-59 [facility] Comment on above: Performed By: #### C MP #### [facility] [address] [place] [address] Dr. Shashi Jimenez Anion gap [Moles/Vol] 12.0 mmol/L Normal [facility] Comment on above: Performed By: #### C MP #### [facility] [address] [address] [address] Shashi Jimenez AST [Catalytic activity/Vol] 35 U/L Normal 15-37 [facility] Comment on above: Performed By: #### C MP #### [facility] [address] [place] [address] Dr. Shashi Jimenez Bilirubin [Mass/Vol] 0.3 mg/dL Normal 0.2-1.0 [facility] Comment on above: Performed By: #### C MP #### [facility] [address] [place] [address] Dr. Shashi Jimenez Calcium [Mass/Vol] 10.5 mg/dL Critically high 8.5-10.1 [facility] Comment on above: Performed By: #### C MP #### [facility] [address] [place] [address] Dr. Shashi Jimenez Chloride [Moles/Vol] 103 mmol/L Normal 98-107 [facility] Comment on above: Performed By: #### C MP #### [facility] [address] [place] [address] Dr. Shashi Jimenez CO2 [Moles/Vol] 29.1 mmol/L Normal 21.0-32.0 [facility] Comment on above: Performed By: #### C MP #### [facility] [address] [place] [address] Dr. Shashi Jimenez Creatinine [Mass/Vol] 1.04 mg/dL Critically high 0.55-1.02 [facility] Comment on above: Performed By: #### C MP #### [facility] [address] [place] [address] Dr. Shashi Jimenez EGFR-AF FAROESE >60 Normal >=60 [facility] Comment on above: Performed By: #### C MP #### [facility] [address] [address] [address] Shashi Jimenez EGFR-NON AF FAROESE 52 mL/min/1.73m2 Critically low >=60 [facility] Comment on above: Performed By: #### C MP #### [facility] [address] [address] [address] Shashi Jimenez Globulin (S) [Mass/Vol] 4.2 g/dL Normal [facility] Comment on above: Performed By: #### C MP #### [facility] [address] [address] [address] Shashi Jimenez Glucose [Mass/Vol] 258 mg/dL Critically high 74-106 [facility] Comment on above: Performed By: #### C MP #### [facility] [address] [address] [address] Shashi Jimenez Potassium [Moles/Vol] 4.1 mmol/L Normal 3.5-5.1 [facility] Comment on above: Performed By: #### C MP #### [facility] [address] [address] [address] Shashi Jimenez Protein [Mass/Vol] 7.9 g/dL Normal 6.4-8.2 [facility] Comment on above: Performed By: #### C MP #### [facility] [address] [address] [address] Shashi Jimenez Sodium [Moles/Vol] 140 mmol/L Normal 136-145 [facility] Comment on above: Performed By: #### C MP #### [facility] [address] [address] [address] Shashi Jimenez Urea nitrogen [Mass/Vol] 23.0 mg/dL Critically high 7.0-18.0 [facility] Comment on above: Performed By: #### C MP #### [facility] [address] [address] [address] Shashi Jimenez Urea nitrogen/Creatini ne [Mass ratio] 22.1 mg/mg Normal [facility] Comment on above: Performed By: #### C MP #### [facility] [address] [address] [address] Shashi Jimenez POINT OF CARE GLUCOSEon 05-0 Glucose [Mass/Vol] 97 mg/dL Normal 74-106 [facility] Comment on above: Performed By: #### P OCGLUC #### [facility] [address] [address] [address] Shashi Jimenez POINT OF CARE GLUCOSEon 03-2 Glucose [Mass/Vol] 160 mg/dL Critically high 74-106 [facility] Comment on above: Performed By: #### P OCGLUC #### [facility] [address] LSPINE WO CONon [...] ERIN BERMAN Date: 2022-07-27 16:56 Normal [facility] CBCon 07-24-2022 Erythrocyte distribution width (RBC) [Ratio] 14.1 % Normal 11.8-14.4 [facility] Comment on above: Performed By: #### I PF, TSHX, VD25, CBC, CP, LIPR #### [facility] [employer] [address] [place] [id number] Principal Trainer: Genaro Angel MD Hematocrit (Bld) [Volume fraction] 43.9 % Normal 36.3-47.1 [facility] Comment on above: Performed By: #### I PF, TSHX, VD25, CBC, CP, LIPR #### [facility] [employer] [address] [place] [address] Principal Trainer: Genaro Angel MD Hemoglobin (Bld) [Mass/Vol] 14.3 g/dL Normal 11.9-15.1 [facility] Comment on above: Performed By: #### I PF, TSHX, VD25, CBC, CP, LIPR #### [facility] [employer] [address] [place] [phone] Principal Trainer: Genaro Angel MD MCH (RBC) [Entitic mass] 30.5 pg Normal 25.2-33.5 [facility] Comment on above: Performed By: #### I PF, TSHX, VD25, CBC, CP, LIPR #### [facility] [employer] [address] [place] [address] Principal Trainer: Genaro Angel MD MCHC (RBC) [Mass/Vol] 32.6 g/dL Normal 28.4-34.8 [facility] Comment on above: Performed By: #### I PF, TSHX, VD25, CBC, CP, LIPR #### [facility] [employer] [address] [place] [address] Principal Trainer: Genaro Angel MD MCV (RBC) [Entitic vol] 93.6 fL Normal 82.6-102.9 [facility] Comment on above: Performed By: #### I PF, TSHX, VD25, CBC, CP, LIPR #### [address] [address] Principal Trainer: Genaro Angel MD NRBC Automated 0.0 per 100 WBC Normal 0.0 [facility] Comment on above: Performed By: #### I PF, TSHX, VD25, CBC, CP, LIPR #### [address] [address] Principal Trainer: Genaro Angel MD Platelet Count See Reflexed IPF Result Normal 138-453 [facility] Comment on above: Performed By: #### I PF, TSHX, VD25, CBC, CP, LIPR #### [address] [address] Principal Trainer: Genaro Angel MD RBC (Bld) [#/Vol] 4.69 10*6/uL Normal 3.95-5.11 [facility] Comment on above: Performed By: #### I PF, TSHX, VD25, CBC, CP, LIPR #### [address] [address] Principal Trainer: Genaro Angel MD WBC (Bld) [#/Vol] 8.4 10*3/uL Normal 3.5-11.3 [facility] Comment on above: Performed By: #### I PF, TSHX, VD25, CBC, CP, LIPR #### [address] [address] Principal Trainer: Genaro Angel MD Hematocrit (Bld) [Volume fraction] 43.9 % 36.3 - 47.1 % [facility] Hemoglobin (Bld) [Mass/Vol] 14.3 g/dL 11.9 - 15.1 g/dL [facility] MCH (RBC) [Entitic mass] 30.5 pg 25.2 - 33.5 pg [facility] MCHC (RBC) [Mass/Vol] 32.6 g/dL 28.4 - 34.8 g/dL [facility] MCV (RBC) [Entitic vol] 93.6 fL 82.6 - 102.9 fL [facility] NRBC Automated 0.0 0.0 per 100 WBC [facility] Platelet distribution width (Bld) [Ratio] 14.1 % 11.8 - 14.4 % [facility] Platelets (Bld) [#/Vol] See Reflexed IPF Result [facility] RBC (Bld) [#/Vol] 4.69 10*6/uL 3.95 - 5.1 1 m/uL [facility] WBC (Bld) [#/Vol] 8.4 10*3/uL [facility] Comp Metabolic Profon 2022 Albumin [Mass/Vol] 4.3 g/dL Normal 3.5-5.2 [facility] Comment on above: Performed By: #### I PF, TSHX, VD25, CBC, CP, LIPR #### [employer] [address] [place] [address] Principal Trainer: Genaro Angel MD Albumin/Glob Ratio 1.3 Normal 1.0-2.5 [facility] Comment on above: Performed By: #### I PF, TSHX, VD25, CBC, CP, LIPR #### [employer] [facility] [place], [place] [id number] Principal Trainer: Genaro Angel MD Alkaline Phos 116 U/L High 35-104 [facility] Comment on above: Performed By: #### I PF, TSHX, VD25, CBC, CP, LIPR #### [employer] [address] [place] [address] [phone] Principal Trainer: Genaro Angel MD ALT [Catalytic activity/Vol] 27 U/L Normal 5-33 [facility] Comment on above: Performed By: #### I PF, TSHX, VD25, CBC, CP, LIPR #### [address] [address] Principal Trainer: Genaro Angel MD Anion gap [Moles/Vol] 15 mmol/L Normal 9-17 [facility] Comment on above: Performed By: #### I PF, TSHX, VD25, CBC, CP, LIPR #### [address] [address] Principal Trainer: Genaro Angel MD AST [Catalytic activity/Vol] 30 U/L Normal <32 [facility] Comment on above: Performed By: #### I PF, TSHX, VD25, CBC, CP, LIPR #### [address] [address] Principal Trainer: Genaro Angel MD Bilirubin [Mass/Vol] 0.4 mg/dL Normal 0.3-1.2 [facility] Comment on above: Performed By: #### I PF, TSHX, VD25, CBC, CP, LIPR #### [address] [address] Principal Trainer: Genaro Angel MD Calcium [Mass/Vol] 10.9 mg/dL High 8.6-10.4 [facility] Comment on above: Performed By: #### I PF, TSHX, VD25, CBC, CP, LIPR #### [address] [address] Principal Trainer: Genaro Angel MD Chloride [Moles/Vol] 100 mmol/L Normal 98-107 [facility] Comment on above: Performed By: #### I PF, TSHX, VD25, CBC, CP, LIPR #### [address] [phone] Principal Trainer: Genaro Angel MD CO2 [Moles/Vol] 20 mmol/L Normal 20-31 [facility] Comment on above: Performed By: #### I PF, TSHX, VD25, CBC, CP, LIPR #### [address] [address] Principal Trainer: Genaro Angel MD Creatinine [Mass/Vol] 0.95 mg/dL High 0.50-0.90 [facility] Comment on above: Performed By: #### I PF, TSHX, VD25, CBC, CP, LIPR #### [address] [address] Principal Trainer: Genaro Angel MD GFR/1.73 sq M.predicted among non-blacks MDRD (S/P/Bld) [Vol rate/Area] mL/min/{1.73_m2} Normal >60 [facility] Comment on above: Result Comment: [...] PF, TSHX, VD25, CBC, CP, LIPR #### [address] [address] Principal Trainer: Genaro Angel MD Glucose [Mass/Vol] 259 mg/dL High 70-99 [facility] Comment on above: Performed By: #### I PF, TSHX, VD25, CBC, CP, LIPR #### [address] [address] Principal Trainer: Genaro Angel MD Potassium [Moles/Vol] 4.7 mmol/L Normal 3.7-5.3 [facility] Comment on above: Performed By: #### I PF, TSHX, VD25, CBC, CP, LIPR #### [facility] [address] [place] [address] Principal Trainer: Genaro Angel MD Protein [Mass/Vol] 7.6 g/dL Normal 6.4-8.3 [facility] Comment on above: Performed By: #### I PF, TSHX, VD25, CBC, CP, LIPR #### [facility] [address] [place] [phone] Principal Trainer: Genaro Angel MD Sodium [Moles/Vol] 135 mmol/L Normal 135-144 [facility] Comment on above: Performed By: #### I PF, TSHX, VD25, CBC, CP, LIPR #### [facility] [employer] [address] [place] [address] Principal Trainer: Genaro Angel MD Urea nitrogen [Mass/Vol] 33 mg/dL High 8-23 [facility] Comment on above: Performed By: #### I PF, TSHX, VD25, CBC, CP, LIPR #### [facility] [employer] [address] [place] [address] Principal Trainer: Genaro Angel MD Comprehensive Metabolic [facility] 07-24-2022 Albumin [Mass/Vol] 4.3 g/dL 3.5 - 5.2 g/dL [facility] Albumin/Globulin [Mass ratio] 1.3 {ratio} 1.0 - 2.5 [facility] ALP [Catalytic activity/Vol] 116 U/L High 35 - 104 U/L [facility] ALT [Catalytic activity/Vol] 27 U/L 5 - 33 U/L [facility] Anion gap [Moles/Vol] 15 mmol/L 9 - 17 mmol/L [facility] AST [Catalytic activity/Vol] 30 U/L NINF - 32 U/L [facility] Bilirubin [Mass/Vol] 0.4 mg/dL 0.3 - 1.2 mg/dL [facility] Calcium [Mass/Vol] 10.9 mg/dL High 8.6 - 10.4 mg/dL [facility] Chloride [Moles/Vol] 100 mmol/L 98 - 107 mmol/L [facility] CO2 [Moles/Vol] 20 mmol/L 20 - 31 mmol/L [facility] Creatinine [Mass/Vol] 0.95 mg/dL High 0.50 - 0.90 mg/dL [facility] GFR/1.73 sq M.predicted MDRD (S/P/Bld) [Vol rate/Area] - PINF [facility] Comment on above: These results are [...] 259 mg/dL High 70 - 99 mg/dL [facility] Potassium [Moles/Vol] 4.7 mmol/L 3.7 - 5.3 mmol/L [facility] Protein [Mass/Vol] 7.6 g/dL 6.4 - 8.3 g/dL [facility] Sodium [Moles/Vol] 135 mmol/L 135 - 144 mmol/L [facility] Urea nitrogen [Mass/Vol] 33 mg/dL High 8 - 23 mg/dL [facility] Immature Platelet Fractionon 07-24-2022 Platelet, Fluorescence 158 [facility] Comment on above: ORDERED BY LAB Platelet, Immature Fraction 4.5 % 1.1 - 10.3 % [facility] Comment on above: ORDERED BY LAB [facility] Lipid Panelon 07-24-2022 Cholesterol [Mass/Vol] 153 mg/dL NINF - 200 mg/dL [facility] Comment on above: Cholesterol Guidelines: <200 Desirable 200-240 Borderline >240 Undesirable Cholesterol in HDL [Mass/Vol] 29 mg/dL Low 40 - PINF mg/dL [facility] Comment on above: HDL Guidelines: <40 Undesirable 40-59 Borderline >59 Desirable Cholesterol in LDL [Mass/Vol] 60 mg/dL 0 - 130 mg/dL [facility] Comment on above: LDL Guidelines: <100 Desirable 100-129 Near to/above Desirable 130-159 Borderline >159 Undesirable Direct (measured) LDL and calculated LDL are not interchangeable tests. Cholesterol.total /Cholesterol in HDL [Mass ratio] 5.3 {ratio} High NINF - 5 [facility] Triglyceride [Mass/Vol] 319 mg/dL High NINF - 150 mg/dL [facility] Comment on above: Triglyceride Guidelines: <150 Desirable 150-199 Borderline 200-499 High >499 Very high Based on AHA Guidelines for fasting triglyceride, February 2012. Lipid Profileon 07-24-2022 Cholesterol [Mass/Vol] 153 mg/dL Normal <200 [facility] Comment on above: Result Comment: Cholesterol Guidelines: <200 Desirable 200-240 Borderline >240 Undesirable Performed By: #### I PF, TSHX, VD25, CBC, CP, LIPR #### [employer] [address] [place] [address] [phone] Principal Trainer: Genaro Angel MD Cholesterol in HDL [Mass/Vol] 29 mg/dL Low >40 [facility] Comment on above: Result Comment: HDL Guidelines: <40 Undesirable 40-59 Borderline >59 Desirable Performed By: #### I PF, TSHX, VD25, CBC, CP, LIPR #### [employer] [address] [place] [address] [phone] Principal Trainer: Genaro Angel MD Cholesterol in LDL [Mass/Vol] 60 mg/dL Normal 0-130 [facility] Comment on above: Result Comment: LDL Guidelines: <100 Desirable 100-129 Near to/above Desirable 130-159 Borderline >159 Undesirable Direct (measured) LDL and calculated LDL are not interchangeable tests. Performed By: #### I PF, TSHX, VD25, CBC, CP, LIPR #### [employer] [address] [place] [address] [phone] Principal Trainer: Genaro Angel MD Cholesterol.total /Cholesterol in HDL [Mass ratio] 5.3 {ratio} High <5 [facility] Comment on above: Performed By: #### I PF, TSHX, VD25, CBC, CP, LIPR #### [address] [address] Principal Trainer: Genaro Angel MD Triglyceride [Mass/Vol] 319 mg/dL High <150 [facility] Comment on above: Result Comment: Triglyceride Guidelines: <150 Desirable 150-199 Borderline 200-499 High >499 Very high Based on AHA Guidelines for fasting triglyceride, February 2012. Performed By: #### I PF, TSHX, VD25, CBC, CP, LIPR #### [address] [phone] Principal Trainer: Genaro Angel MD No Panel Informationon 07-24 Interpretation and review of laboratory results Abnormal [facility] PLT, Immature Fract.on 07-24 Platelet, Fluoresc. 158 k/uL Normal 138-453 [facility] Comment on above: Result Comment: ORDE RED BY LAB Performed By: #### I PF, TSHX, VD25, CBC, CP, LIPR #### [address] [address] Principal Trainer: Genaro Angel MD PLT, Immature Fract. 4.5 % Normal 1.1-10.3 [facility] Comment on above: Result Comment: ORDE RED BY LAB Performed By: #### I PF, TSHX, VD25, CBC, CP, LIPR #### [address] [address] Principal Trainer: Genaro Angel MD TSH w/reflex to FT4on 2022 Thyroid Stim. Horm. 1.50 uIU/mL Normal 0.30-5.00 [facility] Comment on above: Performed By: #### I PF, TSHX, VD25, CBC, CP, LIPR #### [employer] [address] [place] [phone] Principal Trainer: Genaro Angel MD TSH with Reflexon 07-24-2022 TSH Qn 1.50 m[IU]/L [facility] Vitamin D 25 Hydroxyon 07-24 25-hydroxyvitamin D3 [Mass/Vol] 92.8 ng/mL 29.9 - PINF ng/mL [facility] Comment on above: Reference Range: Vitamin D status Range Deficiency <20 ng/mL Mild Deficiency 20-30 ng/mL Sufficiency 30-100 ng/mL Toxicity >100 ng/mL [facility] Vitamin D 25 OHon 07-24-2022 Vitamin D 25 OH 92.8 ng/mL Normal >29.9 [facility] Comment on above: Result Comment: Reference Range: Vitamin D status Range Deficiency <20 ng/mL Mild Deficiency 20-30 ng/mL Sufficiency 30-100 ng/mL Toxicity >100 ng/mL Performed By: #### I PF, TSHX, VD25, CBC, CP, LIPR #### [employer] [address] [place] [address] Principal Trainer: Genaro Angel MD Laboratory - Chemistry and C hemistry - challengeon 07-23-2022 Albumin [Mass/Vol] 4.3 g/dL (3.5-5.2 ) [facility] Comment on above: Note: Responsible Ob silk presser: CCE[employer]OFILE (3002) ALT [Catalytic activity/Vol] 27 U/L (5-33 ) [facility] Comment on above: Note: Responsible Ob silk presser: [employer] (3002) Anion gap [Moles/Vol] 15 mmol/L (9-17 ) [facility] Comment on above: Note: Responsible Ob silk presser: [employer] (3002) AST [Catalytic activity/Vol] 30 U/L (<32 ) [facility] Comment on above: Note: Responsible Ob silk presser: [employer] (3002) Bilirubin [Mass/Vol] 0.4 mg/dL (0.3-1.2 ) [facility] Comment on above: Note: Responsible Ob silk presser: [employer] (3002) Calcium [Mass/Vol] 10.9 mg/dL High (8.6-10.4 ) [facility] Comment on above: Note: Responsible Ob silk presser: [employer] (3002) Chloride [Moles/Vol] 100 mmol/L (98-107 ) [facility] Comment on above: Note: Responsible Ob silk presser: [employer] (3002) Cholesterol [Mass/Vol] 153 mg/dL (<200 ) [facility] Comment on above: Note: Cholesterol Gu idelines:<200 [id number] Borderline>240 UndesirableResponsible Observer: [employer] (3002) Cholesterol.total /Cholesterol in HDL [Mass ratio] 5.3 {ratio} High (<5 ) [facility] Comment on above: Note: Responsible Ob silk presser: [employer] (3002) CO2 [Moles/Vol] 20 mmol/L (20-31 ) [facility] Comment on above: Note: Responsible Ob silk presser: [employer] (3002) Creatinine [Mass/Vol] 0.95 mg/dL High (0.50-0.90 ) [facility] Comment on above: Note: Responsible Ob silk presser: [employer] (3002) GFR/1.73 sq M.predicted among non-blacks MDRD (S/P/Bld) [Vol rate/Area] mL/min/{1.73_m2} (>60 ) [facility] Comment on above: Note: These results [...] Glucose [Mass/Vol] 259 mg/dL High (70-99 ) [facility] Comment on above: Note: Responsible Ob silk presser: [employer] (3002) Magnesium [Mass/Vol] 29 mg/dL Low (>40 ) [facility] Comment on above: Note: HDL Guidelines :<40 [id number] Borderline>59 DesirableResponsible Observer: [employer] (3002) Magnesium [Mass/Vol] 60 mg/dL (0-130 ) [facility] Comment on above: Note: LDL Guidelines :<100 [id number] Near to/above [id number] Borderline>159 UndesirableDirect (measured) LDL and calculated LDL are not interchangeable tests.Responsible Observer: [employer] (3002) Potassium [Moles/Vol] 4.7 mmol/L (3.7-5.3 ) [facility] Comment on above: Note: Responsible Ob silk presser: [employer] (3002) Protein [Mass/Vol] 7.6 g/dL (6.4-8.3 ) [facility] Comment on above: Note: Responsible Ob silk presser: [employer] (3002) Sodium [Moles/Vol] 135 mmol/L (135-144 ) [facility] Comment on above: Note: Responsible Ob silk presser: [employer] (3002) Triglyceride [Mass/Vol] 319 mg/dL High (<150 ) [facility] Comment on above: Note: Triglyceride G uidelines:<150 [id number] High>499 Very highBased on AHA Guidelines for fasting triglyceride, February 2012.Responsible Observer: [employer] (3002) Urea nitrogen [Mass/Vol] 33 mg/dL High (8-23 ) [facility] Comment on above: Note: Responsible Ob silk presser: [employer] (3002) Laboratory - Hematology and Cell countson 07-23-2022 Erythrocyte distribution width (RBC) [Ratio] 14.1 % (11.8-14.4 ) [facility] Comment on above: Note: Responsible Ob silk presser: JC UP (1219) Hematocrit (Bld) [Volume fraction] 43.9 % (36.3-47.1 ) [facility] Comment on above: Note: Responsible Ob silk presser: [employer] (1219) Hemoglobin (Bld) [Mass/Vol] 14.3 g/dL (11.9-15.1 ) [facility] Comment on above: Note: Responsible Ob silk presser: [employer] (1219) MCH (RBC) [Entitic mass] 30.5 pg (25.2-33.5 ) [facility] Comment on above: Note: Responsible Ob silk presser: [employer] (121) MCHC (RBC) [Mass/Vol] 32.6 g/dL (28.4-34.8 ) [facility] Comment on above: Note: Responsible Ob silk presser: [employer] (1218) MCV (RBC) [Entitic vol] 93.6 fL (82.6-102.9 ) [facility] Comment on above: Note: Responsible Ob silk presser: [employer] (1218) RBC (Bld) [#/Vol] 4.69 10*6/uL (3.95-5.11 ) [facility] Comment on above: Note: Responsible Ob silk presser: [employer] (1218) WBC (Bld) [#/Vol] 8.4 10*3/uL (3.5-11.3 ) [facility] Comment on above: Note: Responsible Ob silk presser: JC UP (1218) No Panel Informationon 07-23 Albumin/Glob Ratio 1.3 (1.0-2.5 ) [facility] Comment on above: Note: Responsible Ob silk presser: [employer] (3002) Alkaline Phos 116 U/L High (35-104 ) [facility] Comment on above: Note: Responsible Ob silk presser: [employer] (3002) NRBC Automated 0.0 per_100_WBC (0.0 ) [facility] Comment on above: Note: Responsible Ob silk presser: JC UP (1218) Platelet Count See Reflexed IPF Res ult k/uL (138-453 ) [facility] Comment on above: Note: Responsible Ob silk presser: JC UP (1218) Platelet, Fluoresc. 158 k/uL (138-453 ) [facility] Comment on above: Note: ORDERED BY LAB Responsible Observer: JC [employer] (1218) PLT, Immature Fract. 4.5 % (1.1-10.3 ) [facility] Comment on above: Note: ORDERED BY LAB Responsible Observer: JCCORINA UP (1219) Reported Physicians See Note [facility] Comment on above: Note: Reported Physi cians:Ordering: Sparks, Latia OMARAttending: Sparks, NadiraReferring: Sparks, Latia Thyroid Stim. Horm. 1.50 uIU/mL (0.30-5.00 ) [facility] Comment on above: Note: Responsible Ob silk presser: [employer] (3002) Vitamin D 25 OH 92.8 ng/mL (>29.9 ) [facility] Comment on above: Note: Reference Rang e:Vitamin D status RangeDeficiency <20 ng/mLMild Deficiency 20-30 ng/mLSufficiency 30-100 ng/mLToxicity >100 ng/mLResponsible Observer: CEEV [employer]OFILE (3003) MICROALB CREAT RATIO RANDOMo n 07-19-2022 mALB 43.8 mg/L Critically high <=30.0 [facility] Comment on above: Performed By: #### M CRR #### [facility] [address] [address] [address] Shashi Jimenez MALB CR RATIO 326.8 mg/g Critically high 0.0-29.9 [facility] Comment on above: Performed By: #### M CRR #### [facility] [address] [address] [address] Shashi Jimenez MALB CR RATIO RANGE SEE BELOW Normal [facility] Comment on above: Result Comment: NO M ICROALBUMINURIA 0-29 MG/G CLINICAL MICROALBUMINURIA 30-300 MG/G MACROALBUMINURIA >300 MG/G Performed By: #### M CRR #### [facility] [address] [address] [address] Shashi Jimenez URINE CREAT 134.02 mg/dL Normal 20.00-300.0 0 [facility] Comment on above: Performed By: #### M CRR #### [facility] [address] [address] [address] Shashi Jimenez PROF 14(COMP METB)on 023 Albumin [Mass/Vol] 3.8 g/dL Normal 3.4-5.0 [facility] Comment on above: Performed By: #### C MP #### [facility] [address] [address] [address] Shashi Jimenez Albumin/Globulin [Mass ratio] 1.0 {ratio} Normal [facility] Comment on above: Performed By: #### C MP #### [facility] [address] [address] [address] Shashi Jimenez ALP [Catalytic activity/Vol] 83 U/L Normal 46-116 [facility] Comment on above: Performed By: #### C MP #### [facility] [address] [address] [address] Shashi Jimenez ALT [Catalytic activity/Vol] 42 U/L Normal 14-59 [facility] Comment on above: Performed By: #### C MP #### [facility] [address] [place] [address] Dr. Shashi Jimenez Anion gap [Moles/Vol] 14.0 mmol/L Normal [facility] Comment on above: Performed By: #### C MP #### [facility] [address] [place] [address] Dr. Shashi Jimenez AST [Catalytic activity/Vol] 42 U/L Critically high 15-37 [facility] Comment on above: Performed By: #### C MP #### [facility] [address] [place] [address] Dr. Shashi Jimenez Bilirubin [Mass/Vol] 0.4 mg/dL Normal 0.2-1.0 [facility] Comment on above: Performed By: #### C MP #### [facility] [address] [place] [address] Dr. Shashi Jimenez Calcium [Mass/Vol] 10.8 mg/dL Critically high 8.5-10.1 [facility] Comment on above: Performed By: #### C MP #### [facility] [address] [place] [address] Dr. Shashi Jimenez Chloride [Moles/Vol] 99 mmol/L Normal 98-107 [facility] Comment on above: Performed By: #### C MP #### [facility] [address] [address] [address] Shashi Jimenez CO2 [Moles/Vol] 27.0 mmol/L Normal 21.0-32.0 [facility] Comment on above: Performed By: #### C MP #### [facility] [address] [place] [address] Dr. Shashi Jimenez Creatinine [Mass/Vol] 0.92 mg/dL Normal 0.55-1.02 [facility] Comment on above: Performed By: #### C MP #### [facility] [address] [place] [address] Dr. Shashi Jimenez EGFR-AF FAROESE >60 Normal >=60 [facility] Comment on above: Performed By: #### C MP #### [facility] [address] [place] [address] Dr. Shashi Jimenez EGFR-NON AF FAROESE =60 Normal >=60 [facility] Comment on above: Performed By: #### C MP #### [facility] [address] [address] [address] Shashi Jimenez Globulin (S) [Mass/Vol] 3.9 g/dL Normal [facility] Comment on above: Performed By: #### C MP #### [facility] [address] [place] [address] Dr. Shashi Jimenez Glucose [Mass/Vol] 300 mg/dL Critically high 74-106 [facility] Comment on above: Performed By: #### C MP #### [facility] [address] [place] [address] Dr. Shashi Jimenez Potassium [Moles/Vol] 4.0 mmol/L Normal 3.5-5.1 [facility] Comment on above: Performed By: #### C MP #### [facility] [address] [place] [address] Dr. Shashi Jimenez Protein [Mass/Vol] 7.7 g/dL Normal 6.4-8.2 [facility] Comment on above: Performed By: #### C MP #### [facility] [address] [place] [address] Dr. Shashi Jimenez Sodium [Moles/Vol] 136 mmol/L Normal 136-145 [facility] Comment on above: Performed By: #### C MP #### [facility] [address] [address] [address] Shashi Jimenez Urea nitrogen [Mass/Vol] 20.0 mg/dL Critically high 7.0-18.0 [facility] Comment on above: Performed By: #### C MP #### [facility] [id number] Shashi Jimenez Urea nitrogen/Creatini ne [Mass ratio] 21.7 mg/mg Normal [facility] Comment on above: Performed By: #### C MP #### [facility] [address] [address] [address] Shashi Jimenez XR ankle LT min 3V*on 2021 XR ankle LT min 3V* [facility] [place] [address] [place] [address] XRay Report Signed Patient: Tunde Jack MR#: [id number] : 1950 Acct:[id number] Age/Sex: 71 / F ADM Date: 09/21/21 Loc: XDUCLY Room: Type: [facility] Attending Dr: Constantine Hernandez MD Ordering Provider: [...] 1:10 PM Dictation Location: RADIO-PC-13 Transcribed By: [facility] 09/21/21 1310 Dictated By: Desiree Garrett II, MD 09/21/21 1308 Signed By: 09/21/21 1346 Normal [facility] XR ankle LT min 3V* [facility] [employer] Other XR ankle LT min 3V* [facility] [employer] Other XR ankle LT min 3V* [address] [place] [address] [employer] Other XR ankle LT min 3V* [place] [id number] [employer] Other XR ankle LT min 3V* XRay Report [employer] Other XR ankle LT min 3V* Signed [employer] Other XR ankle LT min 3V* Patient: Tunde Jack MR#: [id number] [employer] Other XR ankle LT min 3V* 3475 [employer] Other XR ankle LT min 3V* : 1950 Acct:[id number] [employer] Other XR ankle LT min 3V* Age/Sex: 71 / F ADM Date: 09/21/21 [employer] Other XR ankle LT min 3V* Loc: XDUCLY Room: Type: [facility] CL [employer] Other XR ankle LT min 3V* Attending Dr: Constantine Hernandez MD [employer] Other XR ankle LT min 3V* Ordering Provider: Isidra Hernandez APRN [employer] Other XR ankle LT min 3V* Date of Service: 09/21/21 [employer] Other XR ankle LT min 3V* XR/XR ankle LT min 3V*: T14.90XA [employer] Other XR ankle LT min 3V* Copies to: Isidra Hernandez APRN [employer] Other XR ankle LT min 3V* Constantine Hernandez MD [employer] Other XR ankle LT min 3V* XR ankle LT min 3V* 09/21/2021 12:53 PM [employer] Other XR ankle LT min 3V* SIGNS AND SYMPTOMS: Twisting injury to left ankle with pain laterally [employer] Other XR ankle LT min 3V* PROTOCOL: Frontal, lateral, and oblique radiographs of the left ankle [employer] Other XR ankle LT min 3V* COMPARISON: None [employer] Other XR ankle LT min 3V* FINDINGS: [employer] Other XR ankle LT min 3V* The bones are in anatomic alignment. There is no evidence of acute displaced fracture. There is [employer] Other XR ankle LT min 3V* soft tissue swelling which is greatest over the lateral malleolus. The ankle mortise is preserved. [employer] Other XR ankle LT min 3V* Calcifications are noted along the Achilles tendon suspicious for a previous Achilles injury. [employer] Other XR ankle LT min 3V* XR/XR ankle LT min 3V* [employer] Other XR ankle LT min 3V* IMPRESSION: [employer] Other XR ankle LT min 3V* No acute displaced fracture. [employer] Other XR ankle LT min 3V* Diffuse soft tissue swelling greatest over the lateral malleolus. [employer] Other XR ankle LT min 3V* Calcifications are noted along the Achilles tendon suspicious for a previous Achilles injury versus [employer] Other XR ankle LT min 3V* calcific tendinosis. [employer] Other XR ankle LT min 3V* Impression dictated by: Desiree Garrett M.D.09/21/2021 1:10 PM [employer] Other XR ankle LT min 3V* Dictation Location: [facility]--13 [employer] Other XR ankle LT min 3V* Transcribed By: MELODY 09/21/21 1310 [employer] Other XR ankle LT min 3V* Dictated By: Desiree Garrett II, MD 09/21/21 1308 [employer] Other XR ankle LT min 3V* Signed By: 09/21/21 1346 [employer] Other ED PROV NOTEon 02-27-2019 ED PROV NOTE HNO ID: [id number] Author: Nargis Raman Service: ? Author Type: Physician Type: ED Provider Notes Filed: 03/01/2019 1:58 AM Note Text: [place] [address] [facility] EMERGENCY DEPARTMENT REPORT Patient: TUNDE JACK DANISHA,NARGIS Simon D.O. [id number] [age] F Status: DEP ER ED [...] NARGIS RAMAN D.O. Tests performed at: [facility] [address] [place], [place] [address] Normal [facility] EMERGENCY DEPARTMENT REPORTo n 02-27-2019 EMERGENCY [place]PART[place] [address] [facility] EMERGENCY DEPARTMENT REPORT Patient: TUNDE JACK NARGIS RAMAN D.O. [id number] [age] F Status: DEP ER ED [...] By: NARGIS RAMAN D.O. Tests performed at: [address] [id number] Normal [facility] LUMBAR LIMITED 2Von 02-28-20 LUMBAR LIMITED 2V [address] [address] Name: TUNDE JACK Phys: NARGIS RAMAN D.O. : [birth year] Age: 68 Sex: F Acct: [id number] Loc: ED Exam Date: 02/27/19 Status: [facility] ER Radiology No.: [id number] Unit Number: [id number] Exam # Type/Exam [id number] RAD / LUMBAR LIMITED 2V EXAM DESCRIPTION: [...] By: LEAH KIRKPATRICK M.D. Tests performed at: [place] [address] Normal [facility] ED PROV NOTEon 01-23-2019 ED PROV NOTE HNO ID: [id number] Author: Desiree May Service: ? Author Type: Physician Type: ED Provider Notes Filed: 01/28/2019 2:46 PM Note Text: [place] [address] [facility]FORMATION [facility]NAG[facility] EMERGENCY DEPARTMENT REPORT Patient: TUNDE JACK MARK N M.D. [id number] [age] F Status: [facility] ER ED Date of Service: 01/22/19 CHIEF [...] HISTORY Patient is . She is a avln-sblt-r-day smoker. PAST SURGICAL HISTORY Appendectomy, cholecystectomy, hysterectomy. [...] rash. No petechiae or purpura. Neurologic exam: [place] Coma Scale is 15. No gross focal [...] DESIREE MAY M.D. Tests performed at: [facility] [address] [place], [place] [address] Normal [facility] EMERGENCY DEPARTMENT REPORTo n 01-23-2019 EMERGENCY [place]PARTMENT [place] [address] [facility] EMERGENCY DEPARTMENT REPORT Patient: TUNDE JACK DESIREE MAY M.D. [id number] [age] F Status: DEP ER ED [...] HISTORY Patient is . She is a hrzk-kbkn-c-day smoker. PAST SURGICAL HISTORY Appendectomy, cholecystectomy, hysterectomy. [...] rash. No petechiae or purpura. Neurologic exam: [place] Coma Scale is 15. No gross focal [...] By: DESIREE MAY M.D. Tests performed at: [address] [address] Normal [facility] ABDOMEN MULTIPLE VIEWSon ABDOMEN MULTIPLE VIEWS [address] [address] Name: TUNDE JACK Phys: DESIREE MAY M.D. : [birth year] Age: 68 Sex: F Acct: [id number] Loc: ED Exam Date: 01/22/19 Status: REG ER Radiology No.: [id number] Unit Number: [id number] Exam # Type/Exam [id number] RAD / ABDOMEN MULTIPLE VIEWS XR ABDOMEN [...] By: HUA PLATA M.D. Tests performed at: [address] [address] Normal [facility] BMPon 01-22-2019 Anion gap [Moles/Vol] 16.0 mmol/L Normal 15-22 [facility] Comment on above: Performed By: #### L 100.0350, L100.0030, L100.0010 #### [facility] [address] [place] [address] Calcium [Mass/Vol] 10.5 mg/dL High 8.8-10.2 [facility] Comment on above: Performed By: #### L 100.0350, L100.0030, L100.0010 #### [facility] [address] [place] [address] Chloride [Moles/Vol] 99 mmol/L Normal 98-107 [facility] Comment on above: Performed By: #### L 100.0350, L100.0030, L100.0010 #### [facility] [address] [place] [address] CO2 [Moles/Vol] 26 mmol/L Normal 22-29 [facility] Comment on above: Performed By: #### L 100.0350, L100.0030, L100.0010 #### [facility] [address] [place] [address] Creatinine [Mass/Vol] 0.90 mg/dL Normal 0.50-0.90 [facility] Comment on above: Performed By: #### L 100.0350, L100.0030, L100.0010 #### [facility] [address] [place] [address] eGFR if AFR MARICEL > 60 ml/min/1.73m2 Normal [facility] Comment on above: Result Comment: [...] By: #### L 100.0350, L100.0030, L100.0010 #### [facility] [address] [place] [address] eGFR nonAFR Maricel > 60 ml/Min/1.73m2 Normal [facility] Comment on above: Performed By: #### L 100.0350, L100.0030, L100.0010 #### [facility] [address] [place] [address] Glucose [Mass/Vol] 212 mg/dL High 82-115 [facility] Comment on above: Performed By: #### L 100.0350, L100.0030, L100.0010 #### [facility] [address] [place] [address] Potassium [Moles/Vol] 4.0 mmol/L Normal 3.5-5.0 [facility] Comment on above: Performed By: #### L 100.0350, L100.0030, L100.0010 #### - LABORATORY [address] [place] [address] Sodium [Moles/Vol] 137 mmol/L Normal 135-145 [facility] Comment on above: Performed By: #### L 100.0350, L100.0030, L100.0010 #### [facility] [address] [place] [address] Urea nitrogen [Mass/Vol] 24 mg/dL High 8-23 [facility] Comment on above: Performed By: #### L 100.0350, L100.0030, L100.0010 #### [facility] [address] [place] [address] CBCon 01-22-2019 Basophils (Bld) [#/Vol] 0.00 x10(3) Normal 0.00-0.10 [facility] Comment on above: Performed By: #### L 200.0010 #### [facility] [address] [place] [address] Basophils/100 WBC (Bld) 0.3 % Normal 0.0-1.0 [facility] Comment on above: Performed By: #### L 200.0010 #### [facility] [address] [place] [address] Eosinophils (Bld) [#/Vol] 0.20 x10(3) Normal 0.00-0.54 [facility] Comment on above: Performed By: #### L 200.0010 #### [facility] [address] [place] [address] Eosinophils/100 WBC (Bld) 3.0 % Normal 0.5-4.9 [facility] Comment on above: Performed By: #### L 200.0010 #### [facility] [address] [place] [address] Erythrocyte distribution width (RBC) [Ratio] 13.7 % Normal 12.5-15.7 [facility] Comment on above: Performed By: #### L 200.0010 #### [facility] [address] [place] [address] Hematocrit (Bld) [Volume fraction] 45.9 % Normal 36.0-48.0 [facility] Comment on above: Performed By: #### L 200.0010 #### [facility] [address] [place] [address] Hemoglobin (Bld) [Mass/Vol] 15.5 g/dL Normal 12.0-16.0 [facility] Comment on above: Performed By: #### L 200.0010 #### [facility] [address] [place] [address] Lymphocytes (Bld) [#/Vol] 1.70 x10(3) Normal 1.00-3.50 [facility] Comment on above: Performed By: #### L 200.0010 #### [facility] [address] [place] [address] Lymphocytes/100 WBC (Bld) 22.1 % Normal 16.0-48.0 [facility] Comment on above: Performed By: #### L 200.0010 #### [facility] [address] [place] [address] 98166 MCH (RBC) [Entitic mass] 30.9 pg Normal 28.5-32.9 [facility] Comment on above: Performed By: #### L 200.0010 #### ML [facility] [address] [place] [address] MCHC (RBC) [Mass/Vol] 33.8 g/dL Normal 33.0-36.0 [facility] Comment on above: Performed By: #### L 200.0010 #### [facility] [address] [place] [address] MCV (RBC) [Entitic vol] 91.3 fL Normal 80.0-99.0 [facility] Comment on above: Performed By: #### L 200.0010 #### ML [facility] [address] [place] [address] Monocytes (Bld) [#/Vol] 0.60 x10(3) Normal 0.30-0.80 [facility] Comment on above: Performed By: #### L 200.0010 #### [facility] [address] [place] [address]34 Monocytes/100 WBC (Bld) 8.3 % Normal 4.3-11.2 [facility] Comment on above: Performed By: #### L 200.0010 #### ML [facility] [address] [place] [address] [place] [address] Neutrophils (Bld) [#/Vol] 5.10 x10(3) Normal 1.40-6.50 [facility] Comment on above: Performed By: #### L 200.0010 #### [facility] [address] [place] [address] 24058 Neutrophils/100 WBC (Bld) 66.3 % Normal 45.0-73.0 [facility] Comment on above: Performed By: #### L 200.0010 #### [facility] [address] [place] [address] Platelet mean volume (Bld) [Entitic vol] 8.2 fL Normal 7.5-9.5 [facility] Comment on above: Performed By: #### L 200.0010 #### [facility] [address] [place] [address] 23699 Platelets (Bld) [#/Vol] 124 X10(3) Low 150-450 [facility] Comment on above: Performed By: #### L 200.0010 #### [facility] [address] [place] [address]506 RBC (Bld) [#/Vol] 5.02 x10(6) High 3.30-5.00 [facility] Comment on above: Performed By: #### L 200.0010 #### [facility] [address] [place] [address] 38847 WBC (Bld) [#/Vol] 7.7 x10(3) Normal 4.5-10.0 [facility] Comment on above: Performed By: #### L 200.0010 #### [facility] [address] [place] [address] ABD/PEL W CONTRASTon CT ABD/PEL W CONTRAST [address] [address] Name: TUNDE JACK Phys: DESIREE MAY M.D. : [birth year] Age: 68 Sex: F Acct: [id number] Loc: ED Exam Date: 09/05/19 Status: REG ER Radiology No.: [id number] Unit Number: [id number] Exam # Type/Exam [id number] CT / CT ABD/PEL W CONTRAST CT [...] By: CHI CASTANEDA D.O. Tests performed at: [place] [address] Normal [facility] HEPATIC PANELon 01-22-2019 A:G RATIO 1.32 Normal 1.1-2.5 [facility] Comment on above: Performed By: #### L 100.0350, L100.0030, L100.0010 #### [facility] [address] [place] [address]252 Albumin [Mass/Vol] 4.1 g/dL Normal 3.5-5.2 [facility] Comment on above: Performed By: #### L 100.0350, L100.0030, L100.0010 #### [facility] [address] [place] [address] 68343 ALK. PHOS 79 U/L Normal 35-105 [facility] Comment on above: Performed By: #### L 100.0350, L100.0030, L100.0010 #### [facility] [address] [place] [address]77 ALT [Catalytic activity/Vol] 23 U/L Normal 5-33 [facility] Comment on above: Performed By: #### L 100.0350, L100.0030, L100.0010 #### - LABORATORY [address] [place] [address] 82596 AST [Catalytic activity/Vol] 23 U/L Normal 5-32 [facility] Comment on above: Performed By: #### L 100.0350, L100.0030, L100.0010 #### - LABORATORY [address] [place] [address]674 Bilirubin Ql (U) 0.3 mg/dL Normal 0.2-1.2 [facility] Comment on above: Performed By: #### L 100.0350, L100.0030, L100.0010 #### [facility] [address] [place] [address] DIRECT BILIRUBI <0.2 Normal 0.0-0.3 [facility] Comment on above: Performed By: #### L 100.0350, L100.0030, L100.0010 #### [facility] [address] [place] [address] 46009 Globulin (S) [Mass/Vol] 3.1 g/dL Normal 1.5-4.5 [facility] Comment on above: Performed By: #### L 100.0350, L100.0030, L100.0010 #### - LABORATORY [address] [place] [address] 56514 Protein [Mass/Vol] 7.2 g/dL Normal 6.4-8.3 [facility] Comment on above: Performed By: #### L 100.0350, L100.0030, L100.0010 #### [facility] [address] [place] [address]408 LIPASEon 01-22-2019 Lipase [Catalytic activity/Vol] 44 U/L Normal 13-60 [facility] Comment on above: Performed By: #### L 100.0350, L100.0030, L100.0010 #### [facility] [address] [place] [address] 31932 URINALYSISon 01-22-2019 Bilirubin Ql (U) Negative Normal NEGATIVE [facility] Comment on above: Order Comment: Urine Specimen Source+ CLEAN CATCH Performed By: #### L 200.3000 #### ML [facility] [address] [place] [address] 46450 Color (U) YELLOW Normal YELLOW [facility] Comment on above: Order Comment: Urine Specimen Source+ CLEAN CATCH Performed By: #### L 200.3000 #### ML [facility] [address] [place] [address] 97408 Glucose Ql (U) >=1000 Normal NEGATIVE [facility] Comment on above: Order Comment: Urine Specimen Source+ CLEAN CATCH Performed By: #### L 200.3000 #### [facility] [address] [place] [address] 17476 Hemoglobin Ql (U) TRACE-INTACT Normal [facility] [place] Comment on above: Order Comment: Urine Specimen Source+ CLEAN CATCH Performed By: #### L 200.3000 #### ML [facility] [address] [place] [address] 23609 Leukocyte esterase Test strip Ql (U) Negative Normal NEGATIVE [facility] Comment on above: Order Comment: Urine Specimen Source+ CLEAN CATCH Performed By: #### L 200.3000 #### ML [facility] [address] [place] [address] 74174 Nitrite Ql (U) Negative Normal NEGATIVE [facility] Comment on above: Order Comment: Urine Specimen Source+ CLEAN CATCH Performed By: #### L 200.3000 #### ML [facility] [address] [place] [address] 32653 pH (U) 5.5 [pH] Normal 5.0-8.0 [facility] Comment on above: Order Comment: Urine Specimen Source+ CLEAN CATCH Performed By: #### L 200.3000 #### [facility] [address] [place] [address] 88087 Protein Ql (U) Negative Normal NEGATIVE [facility] Comment on above: Order Comment: Urine Specimen Source+ CLEAN CATCH Performed By: #### L 200.3000 #### [facility] [address] [place] [address] 42024 URINE APPEARANC CLEAR Normal CLEAR [facility] Comment on above: Order Comment: Urine Specimen Source+ CLEAN CATCH Performed By: #### L 200.3000 #### [facility] [address] [place] [address] 45265 URINE KETONE Negative Normal NEGATIVE [facility] Comment on above: Order Comment: Urine Specimen Source+ CLEAN CATCH Performed By: #### L 200.3000 #### [facility] [address] [place] [address] 37394 URINE SPECIFIC <=1.005 Normal 1.001-1.035 [facility] Comment on above: Order Comment: Urine Specimen Source+ CLEAN CATCH Performed By: #### L 200.3000 #### [facility] [address] [place] [address] 75800 URINE UROBILINO 0.2 EU/DL Normal 0.2-1.0 [facility] Comment on above: Order Comment: Urine Specimen Source+ CLEAN CATCH Performed By: #### L 200.3000 #### [facility] [address] [place] [address] 99100 [id number] 01-15-2019 HbA1c (Bld) [Mass fraction] 7.2 % High 4.3-6.1 [facility] Comment on above: Result Comment: Estimated Average Glucose: HgbA1C % mg/dL 4.0 68 5.0 97 6.0 125 7.0 154 8.0 183 9.0 212 10.0 240 Source: [place] [employer] web site, 2017. Performed By: #### L 200.2000 #### [facility] [address] [place] [address] 11685 LIPID PANELon 01-15-2019 Cholesterol [Mass/Vol] 158 mg/dL Normal 130-200 [facility] Comment on above: Order Comment: ADD O N Performed By: #### L 100.0040 #### [facility] [address] [place] [address] 87241 Cholesterol in HDL [Mass/Vol] 30 mg/dL Normal [facility] Comment on above: Order Comment: ADD O [...] #### L 100.0040 #### [facility] [address] [place] [address] 79097 Cholesterol in LDL [Mass/Vol] 55 mg/dL [facility] Comment on above: Order Comment: ADD O N Result Comment: LDL: OPTIMAL FOR PEOPLE AT VERY HIGH RISK <70 OPTIMAL <100 NEAR OPTIMAL 100-129 BORDERLINE HIGH 130-159 HIGH 160-189 VERY HIGH >=190 Source: 2009 NCEP ATP III, ADA Guidelines Reviewed: August, Performed By: #### L 100.0040 #### [facility] [address] [place] [address] 38276 Cholesterol in LDL/Cholesterol in HDL [Mass ratio] 1.8 [facility] Comment on above: Order Comment: ADD O N Performed By: #### L 100.0040 #### [facility] [address] [place] [address] 72019 Cholesterol in VLDL [Mass/Vol] 73 mg/dL High 6-40 [facility] Comment on above: Order Comment: ADD O N Performed By: #### L 100.0040 #### [facility] [address] [place] [address] 22965 Triglyceride [Mass/Vol] 365 mg/dL [facility] Comment on above: Order Comment: ADD O N Result Comment: TRIG : DESIRABLE: <150 mg/dL Performed By: #### L 100.0040 #### [facility] [address] [place] [address] 60513 Hoda 01-14-2019 ALT [Catalytic activity/Vol] 29 U/L Normal -33 [facility] Comment on above: Performed By: #### L 100.0010, L100.0240, L100.0250 #### [facility] [address] [place] [address] 67785 Genesis 01-14-2019 AST [Catalytic activity/Vol] 30 U/L Normal -32 [facility] Comment on above: Performed By: #### L 100.0010, L100.0240, L100.0250 #### [facility] [address] [place] [address] 20045 BMPon 01-14-2019 Anion gap [Moles/Vol] 16.6 mmol/L Normal 15- [facility] Comment on above: Performed By: #### L 100.0010, L100.0240, L100.0250 #### [facility] [address] [place] [address] 51188 Calcium [Mass/Vol] 10.3 mg/dL High 8.8-10.2 [facility] Comment on above: Performed By: #### L 100.0010, L100.0240, L100.0250 #### [facility] [address] [place] [address] 44403 Chloride [Moles/Vol] 98 mmol/L Normal 98-107 [facility] Comment on above: Performed By: #### L 100.0010, L100.0240, L100.0250 #### [facility] [address] [place] [address] 92904 CO2 [Moles/Vol] 28 mmol/L Normal 22-29 [facility] Comment on above: Performed By: #### L 100.0010, L100.0240, L100.0250 #### [facility] [address] [place] [address] 03528 Creatinine [Mass/Vol] 0.74 mg/dL Normal 0.50-0.90 [facility] Comment on above: Performed By: #### L 100.0010, L100.0240, L100.0250 #### [facility] [address] [place] [address] 25359 eGFR if AFR MARICEL > 60 ml/min/1.73m2 Normal [facility] Comment on above: Result Comment: [...] By: #### L 100.0010, L100.0240, L100.0250 #### [facility] [address] [place] [address] 31040 eGFR nonAFR Maricel > 60 ml/Min/1.73m2 Normal [facility] Comment on above: Performed By: #### L 100.0010, L100.0240, L100.0250 #### [facility] [address] [place] [address] 22576 Glucose [Mass/Vol] 208 mg/dL High 82-115 [facility] Comment on above: Performed By: #### L 100.0010, L100.0240, L100.0250 #### [facility] [address] [place] [address] Potassium [Moles/Vol] 4.6 mmol/L Normal 3.5-5.0 [facility] Comment on above: Performed By: #### L 100.0010, L100.0240, L100.0250 #### [facility] [address] [place] [address] 38598 Sodium [Moles/Vol] 138 mmol/L Normal 135-145 [facility] Comment on above: Performed By: #### L 100.0010, L100.0240, L100.0250 #### [facility] [address] [place] [address] 92981 Urea nitrogen [Mass/Vol] 16 mg/dL Normal 8-23 [facility] Comment on above: Performed By: #### L 100.0010, L100.0240, L100.0250 #### [facility] [address] [place] [address] 52033 [facility] Anion gap [Moles/Vol] 19.0 mmol/L Normal 15-22 [facility] Comment on above: Performed By: #### L 100.0010 #### [facility] [address] [place] [address] 88257 Calcium [Mass/Vol] 10.0 mg/dL Normal 8.8-10.2 [facility] Comment on above: Performed By: #### L 100.0010 #### [facility] [address] [place] [address] 78264 Chloride [Moles/Vol] 97 mmol/L Low 98-107 [facility] Comment on above: Performed By: #### L 100.0010 #### ML [facility] [address] [place] [address] 78588 CO2 [Moles/Vol] 26 mmol/L Normal 22-29 [facility] Comment on above: Performed By: #### L 100.0010 #### [facility] [address] [place] [address] 76734 Creatinine [Mass/Vol] 0.98 mg/dL High 0.50-0.90 [facility] Comment on above: Performed By: #### L 100.0010 #### [facility] [address] [place] [address] 96992 eGFR if AFR MARICEL > 60 ml/min/1.73m2 Normal [facility] Comment on above: Result Comment: [...] #### L 100.0010 #### [facility] [address] [place] [address] 14018 eGFR nonAFR Maricel 57 Normal [facility] Comment on above: Performed By: #### L 100.0010 #### [facility] [address] [place] [address] 33361 Glucose [Mass/Vol] 171 mg/dL High 82-115 [facility] Comment on above: Performed By: #### L 100.0010 #### ML [facility] [address] [place] [address] 66205 Potassium [Moles/Vol] 4.0 mmol/L Normal 3.5-5.0 [facility] Comment on above: Performed By: #### L 100.0010 #### ML [facility] [address] [place] [address] 79463 Sodium [Moles/Vol] 138 mmol/L Normal 135-145 [facility] Comment on above: Performed By: #### L 100.0010 #### [facility] [address] [place] [address] 01810 Urea nitrogen [Mass/Vol] 22 mg/dL Normal 8-23 [facility] Comment on above: Performed By: #### L 100.0010 #### ML [facility] [address] [place] [address] [place] [address] PTHon 11-12-2018 PTH 26.5 pg/mL Normal 15-65 [facility] Comment on above: Performed By: #### L 304.0135 #### ML [facility] [address] [place] [address] [place] [address] BMPon 10-16-2018 Anion gap [Moles/Vol] 20.3 mmol/L Normal 15-22 [facility] Comment on above: Performed By: #### L 100.0010, L304.0470 #### [facility] [address] [place] [address] 86845 Calcium [Mass/Vol] 10.9 mg/dL High 8.8-10.2 [facility] Comment on above: Performed By: #### L 100.0010, L304.0470 #### [facility] [address] [place] [address] 56111 Chloride [Moles/Vol] 100 mmol/L Normal 98-107 [facility] Comment on above: Performed By: #### L 100.0010, L304.0470 #### [facility] [address] [place] [address] 30327 CO2 [Moles/Vol] 27 mmol/L Normal 22-29 [facility] Comment on above: Performed By: #### L 100.0010, L304.0470 #### [facility] [address] [place] [address] 43773 Creatinine [Mass/Vol] 1.03 mg/dL High 0.50-0.90 [facility] Comment on above: Performed By: #### L 100.0010, L304.0470 #### [facility] [address] [place] [address] 94485 eGFR if AFR MARICEL > 60 ml/min/1.73m2 Normal [facility] Comment on above: Result Comment: [...] 100.0010, L304.0470 #### [facility] [address] [facility] [place] [address] eGFR nonAFR Maricel 54 Normal [facility] Comment on above: Performed By: #### L 100.0010, L304.0470 #### [facility] [address] [place] [address] [place] [address] Glucose [Mass/Vol] 186 mg/dL High 82-115 [facility] Comment on above: Performed By: #### L 100.0010, L304.0470 #### [facility] [address] [place] [address] 72861 Potassium [Moles/Vol] 4.3 mmol/L Normal 3.5-5.0 [facility] Comment on above: Performed By: #### L 100.0010, L304.0470 #### [facility] [address] [place] [address] 86797 Sodium [Moles/Vol] 143 mmol/L Normal 135-145 [facility] Comment on above: Performed By: #### L 100.0010, L304.0470 #### [facility] [address] [place] [address] 44065 Urea nitrogen [Mass/Vol] 28 mg/dL High 8-23 [facility] Comment on above: Performed By: #### L 100.0010, L304.0470 #### [facility] [address] [place] [address] 48499 PTHon 10-16-2018 PTH 25.1 pg/mL Normal 15-65 [facility] Comment on above: Performed By: #### L 304.0135 #### [facility] [address] [place] [address] 26730 VITAMIN Don 10-16-2018 VITAMIN D 48.5 ng/mL Normal 30-100 [facility] Comment on above: Performed By: #### L 100.0010, L304.0470 #### [facility] [address] [place] [address] 56377 [facility] Reporton 2018 [facility] Report . Pathology ReportsAccession: Collected Date/Time: Received Date/Time: Pathologist:[id number] 05/21/2018 16:06 EST 05/21/2018 18:00 MD JOY FARMER [facility] Cytology ReportSPECIMEN:Specimen Description: Liquid Prep w/ HPVSpecimen: Cervical/EndocervicalScre ening or Diagnostic: ScreeningRELEVANT HISTORY:LMP: not givenSPECIMEN ADEQUACY:SATISFACTORY FOR EVALUATIONENDOCERVICAL/TR ANSFORMATIONAL ZONE COMPONENT PRESENTINTERPRETATION/RES ULTS:NEGATIVE FOR INTRAEPITHELIAL LESION OR MALIGNANCYADJUNCTIVE TESTING:HIGH RISK HPV DNA TESTING ORDERED, REPORT TO FOLLOW UNDER SEPARATE COVERSUGGESTIONS/EDUCATIO NAL NOTES:THIS CASE HAS BEEN REVIEWED FOR 10% Q.C. RESCREENElectronically Signed byPathology report verified by [facility].Screened by: HERLINDA DWElectronically signed by JOY Whalengn-Out Date: 05/27/2018 10:24Performing Lab: [facility], [address] [place], [place] [address]Disshaw hospitalThe Pap test is a screening test for cervical cancer. As evidenced by published data, it is subject to both inherent false negative and false positive results. Your patient's results should be interpreted in context with pertinent clinical history including gynecological examination. Normal [facility] Comment on above: Performed By: #### G YCR ####[place] [address] HPVon 05-27-2018 HPV Interp Normal See Interp HPVN [facility] [place] Comment on above: Order Comment: Order placed by AP_HPV_ORDER rule from [id number] Result Comment: High Risk HPV Typing: NEGATIVEHPV [...] Interp HPVN Performed By: #### H PV ####[place] [id number] [place] [address] 34316 HPV Source Cervix Normal [facility] [place] Comment on above: Order Comment: Order placed by AP_HPV_ORDER rule from [id number] Performed By: #### H PV ####[place] [id number] [place] [address] 63020 PROGRESSon 05-17-2018 PROGRESS HNO ID: [id number] Author: Provider [facility] Service: (none) Author Type: Physician Type: Progress Notes Filed: 05/17/2018 12:29 PM Note Text: [facility] [place] [address] FIRST CARE REPORT Patient: MICKEYTUNDE Erika SAM,-RAIMUNDO MartinezNSarahPSarah [id number] F Status: REG POV FC [...] cigarette smoker H/O appendicitis 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 o Call or return to [facility] if you experience problems relating to [...] and were understood. Report to the [facility] Emergency Department if any further problems occur. [...] By: SEE SAM FSarahNSarahPSarah Tests performed at: [place] 548402 Normal [facility] STRP SCNon 05-17-2018 STRP SCN Performed at: [facility] [address] [place] [id number] STREP SCREEN NEGATIVE - CULTURE TO FOLLOW REFERENCE RANGE NORMAL RESULT IS NEGATIVE. Normal [facility] 05-17-2018 THT ORGANISM 1: NO GROUP A BETA STREP ISOLATED Normal [facility] Comment on above: Performed By: #### M 130.0700 #### [facility] - LABORATORY [address] [place], [place] [address] SURGICAL PATHOLOGY, CONVERTE Don 04-21-2014 [facility] Vital Signs Date Time Vital Sign Value Performing Clinician Facility 06-04-2023 10:37-0500 [facility] 162.[facility] Work Phone: 06-04-2023 10:37-0500 Body mass index (BMI) [Ratio] 35.4 [facility] Work Phone: 06-04-2023 10:37-0500 Body surface area Derived from formula 2 m2 Latia Sparks [employer]ING [employer]ATOR Work Phone: [facility] Work Phone: 06-04-2023 10:37-0500 Body weight 93.44 kg Latia Sparks PLANNING COORDINATOR Work Phone: [facility] Work Phone: 06-04-2023 10:37-0500 Diastolic blood pressure 80 mm[Hg] Latia Sparks PLANNING COORDINATOR Work Phone: [facility] Work Phone: 06-04-2023 10:37-0500 Heart rate 96 /min Latia Sparks PLANNING COORDINATOR Work Phone: [facility] Work Phone: 06-04-2023 10:37-0500 Inhaled oxygen concentration 21 % Latia Sparks PLANNING COORDINATOR Work Phone: [facility] Work Phone: 06-04-2023 10:37-0500 Inhaled oxygen flow rate 0 L/min Latia Sparks PLANNING COORDINATOR Work Phone: [facility] Work Phone: 06-04-2023 10:37-0500 SaO2% (BldA) [Mass fraction] 98 % Latia Sparks PLANNING COORDINATOR Work Phone: [facility] Work Phone: 06-04-2023 10:37-0500 Systolic blood pressure 138 mm[Hg] Latia Sparks PLANNING COORDINATOR Work Phone: [facility] Work Phone: 05-10-2023 10:03-0500 Body height 162.56 cm Latia Sparks PLANNING COORDINATOR Work Phone: [facility] Work Phone: 05-10-2023 10:03-0500 Body mass index (BMI) [Ratio] 35.7 kg/m2 Latia Sparks PLANNING COORDINATOR Work Phone: [facility] Work Phone: 05-10-2023 10:03-0500 Body surface area Derived from formula 2 m2 Latia Sparks PLANNING COORDINATOR Work Phone: [facility] Work Phone: 05-10-2023 10:03-0500 Body temperature 97.8 [degF] Latia Sparks PLANNING COORDINATOR Work Phone: [facility] Work Phone: 05-10-2023 10:03-0500 Body weight 94.26 kg Latia Sparks PLANNING COORDINATOR Work Phone: [facility] Work Phone: 05-10-2023 10:03-0500 Diastolic blood pressure 76 mm[Hg] Latia Sparks PLANNING COORDINATOR Work Phone: [facility] Work Phone: 05-10-2023 10:03-0500 Heart rate 103 /min Latia Sparks PLANNING COORDINATOR Work Phone: [facility] Work Phone: 05-10-2023 10:03-0500 Inhaled oxygen concentration 21 % Latia Sparks PLANNING COORDINATOR Work Phone: [facility] Work Phone: 05-10-2023 10:03-0500 Inhaled oxygen flow rate 0 L/min Latia Sparks PLANNING COORDINATOR Work Phone: [facility] Work Phone: 05-10-2023 10:03-0500 SaO2% (BldA) [Mass fraction] 96 % Latia Sparks PLANNING COORDINATOR Work Phone: [facility] Work Phone: 05-10-2023 10:03-0500 Systolic blood pressure 133 mm[Hg] Latia Sparks PLANNING COORDINATOR Work Phone: [facility] Work Phone: 05-09-2023 13:36-0500 Body height 162.6 cm [facility] 2 [facility] 05-09-2023 13:36-0500 Body mass index (BMI) [Ratio] 35.36 kg/m2 [facility] 2 [facility] 05-09-2023 13:36-0500 Body weight 93.[address] [facility] 04-18-2023 14:10-0500 Body height 162.56 cm Latia Sparks PLANNING COORDINATOR Work Phone: [facility] Work Phone: 04-18-2023 14:10-0500 Body mass index (BMI) [Ratio] 35.7 kg/m2 Latia Sparks PLANNING COORDINATOR Work Phone: [facility] Work Phone: 04-18-2023 14:10-0500 Body surface area Derived from formula 2 m2 Latia Sparks PLANNING COORDINATOR Work Phone: [facility] Work Phone: 04-18-2023 14:10-0500 Body temperature 97.8 [degF] Latia Sparks PLANNING COORDINATOR Work Phone: [facility] Work Phone: 04-18-2023 14:10-0500 Body weight 94.35 kg Latia Sparks PLANNING COORDINATOR Work Phone: [facility] Work Phone: 04-18-2023 14:10-0500 Diastolic blood pressure 80 mm[Hg] Latia Sparks PLANNING COORDINATOR Work Phone: [facility] Work Phone: 04-18-2023 14:10-0500 Heart rate 96 /min Latia Sparks PLANNING COORDINATOR Work Phone: [facility] Work Phone: 04-18-2023 14:10-0500 Inhaled oxygen concentration 21 % Latia Sparks PLANNING COORDINATOR Work Phone: [facility] Work Phone: 04-18-2023 14:10-0500 Inhaled oxygen flow rate 0 L/min Latia Sparks PLANNING COORDINATOR Work Phone: [facility] Work Phone: 04-18-2023 14:10-0500 Respiratory rate 18 /min Latia Sparks PLANNING COORDINATOR Work Phone: [facility] Work Phone: 04-18-2023 14:10-0500 SaO2% (BldA) [Mass fraction] 96 % Latia Sparks PLANNING COORDINATOR Work Phone: [facility] Work Phone: 04-18-2023 14:10-0500 Systolic blood pressure 138 mm[Hg] Latia Sparks PLANNING COORDINATOR Work Phone: [facility] Work Phone: 11-15-2022 14:24-0400 Diastolic blood pressure 82 mm[Hg] Latia Sparks PLANNING COORDINATOR Work Phone: [facility] Work Phone: 11-15-2022 14:24-0400 Systolic blood pressure 142 mm[Hg] Latia Sparks PLANNING COORDINATOR Work Phone: [facility] Work Phone: 11-15-2022 14:17-0400 Body height 162.56 cm Latia Sparks PLANNING COORDINATOR Work Phone: [facility] Work Phone: 11-15-2022 14:17-0400 Body mass index (BMI) [Ratio] 37.4 kg/m2 Latia Sparks PLANNING COORDINATOR Work Phone: [facility] Work Phone: 11-15-2022 14:17-0400 Body surface area Derived from formula 2 m2 Latia Sparks PLANNING COORDINATOR Work Phone: [facility] Work Phone: 11-15-2022 14:17-0400 Body weight 98.88 kg Latia Sparks PLANNING COORDINATOR Work Phone: [facility] Work Phone: 11-15-2022 14:17-0400 Diastolic blood pressure 78 mm[Hg] Latia Sparks PLANNING COORDINATOR Work Phone: [facility] Work Phone: 11-15-2022 14:17-0400 Heart rate 94 /min Latia Bridger PLANNING COORDINATOR Work Phone: [facility] Work Phone: 11-15-2022 14:17-0400 SaO2% (BldA) [Mass fraction] 93 % Latia Sparks PLANNING COORDINATOR Work Phone: [facility] Work Phone: 11-15-2022 14:17-0400 Systolic blood pressure 143 mm[Hg] Latia Sparks PLANNING COORDINATOR Work Phone: [facility] Work Phone: 08-02-2022 10:15-0400 Body height 162.56 cm Latia Sparks PLANNING COORDINATOR Work Phone: [facility] Work Phone: 08-02-2022 10:15-0400 Body mass index (BMI) [Ratio] 36.7 kg/m2 Latia Sparks PLANNING COORDINATOR Work Phone: [facility] Work Phone: 08-02-2022 10:15-0400 Body surface area Derived from formula 2 m2 Latia Sparks PLANNING COORDINATOR Work Phone: [facility] Work Phone: 08-02-2022 10:15-0400 Body temperature 98.5 [degF] Latia Sparks PLANNING COORDINATOR Work Phone: [facility] Work Phone: 08-02-2022 10:15-0400 Body weight 97.07 kg Latia Sparks PLANNING COORDINATOR Work Phone: [facility] Work Phone: 08-02-2022 10:15-0400 Diastolic blood pressure 82 mm[Hg] Latia Sparks PLANNING COORDINATOR Work Phone: [facility] Work Phone: 08-02-2022 10:15-0400 Heart rate 98 /min Latia Sparks PLANNING COORDINATOR Work Phone: [facility] Work Phone: 08-02-2022 10:15-0400 Heart Rate Rhythm 1 1 Latia Sparks PLANNING COORDINATOR Work Phone: [facility] Work Phone: 08-02-2022 10:15-0400 Inhaled oxygen concentration 21 % Latia Sparks PLANNING COORDINATOR Work Phone: [facility] Work Phone: 08-02-2022 10:15-0400 Inhaled oxygen flow rate 0 L/min Latia Sparks PLANNING COORDINATOR Work Phone: [facility] Work Phone: 08-02-2022 10:15-0400 Respiratory rate 18 /min Latia Sparks PLANNING COORDINATOR Work Phone: [facility] Work Phone: 08-02-2022 10:15-0400 SaO2% (BldA) [Mass fraction] 96 % Latia Sparks PLANNING COORDINATOR Work Phone: [facility] Work Phone: 08-02-2022 10:15-0400 Systolic blood pressure 138 mm[Hg] Latia Sparks PLANNING COORDINATOR Work Phone: [facility] Work Phone: 07-23-2022 13:38-0500 Diastolic blood pressure 78 mm[Hg] Latia Sparks PLANNING COORDINATOR Work Phone: [facility] Work Phone: 07-23-2022 13:38-0500 Systolic blood pressure 142 mm[Hg] Latia Spraks PLANNING COORDINATOR Work Phone: [facility] Work Phone: 07-23-2022 12:13-0500 Body height 162.56 cm Latia Sparks PLANNING COORDINATOR Work Phone: [facility] Work Phone: 07-23-2022 12:13-0500 Body mass index (BMI) [Ratio] 36 kg/m2 Latia Sparks PLANNING COORDINATOR Work Phone: [facility] Work Phone: 07-23-2022 12:13-0500 Body surface area Derived from formula 2 m2 Latia Sparks PLANNING COORDINATOR Work Phone: [facility] Work Phone: 07-23-2022 12:13-0500 Body temperature 98.3 [degF] Latia Sparks PLANNING COORDINATOR Work Phone: [facility] Work Phone: 07-23-2022 12:13-0500 Body weight 95.26 kg Latia Sparks PLANNING COORDINATOR Work Phone: [facility] Work Phone: 07-23-2022 12:13-0500 Diastolic blood pressure 92 mm[Hg] Latia Sparks PLANNING COORDINATOR Work Phone: [facility] Work Phone: 07-23-2022 12:13-0500 Heart rate 118 /min Latia Sparks PLANNING COORDINATOR Work Phone: [facility] Work Phone: 07-23-2022 12:13-0500 Heart Rate Rhythm 1 1 Latia Sparks PLANNING COORDINATOR Work Phone: [facility] Work Phone: 07-23-2022 12:13-0500 Inhaled oxygen concentration 21 % Latia Saprks PLANNING COORDINATOR Work Phone: [facility] Work Phone: 07-23-2022 12:13-0500 Inhaled oxygen flow rate 0 L/min Latia Sparks PLANNING COORDINATOR Work Phone: [facility] Work Phone: 07-23-2022 12:13-0500 Respiratory rate 21 /min Latia Sparks PLANNING COORDINATOR Work Phone: [facility] Work Phone: 07-23-2022 12:13-0500 SaO2% (BldA) [Mass fraction] 96 % Latia Sparks PLANNING COORDINATOR Work Phone: [facility] Work Phone: 07-23-2022 12:13-0500 Systolic blood pressure 168 mm[Hg] Latia Sparks PLANNING COORDINATOR Work Phone: [facility] Work Phone: 09-21-2021 13:25-0400 Body height 162.56 cm Isidra Hernandez Other [employer] Other 09-21-2021 13:25-0400 Body mass index (BMI) [Ratio] 37.24 kg/m2 Isidra Hernandez Other [employer] Other 09-21-2021 13:25-0400 Body temperature 97.9 [degF] Isidra Hernandez Other [employer] Other 09-21-2021 13:25-0400 Body weight 98.43 kg Isidra Hernandez Other [employer] Other 09-21-2021 13:25-0400 Diastolic blood pressure 68 mm[Hg] Isidra Hernandez Other [employer] Other 09-21-2021 13:25-0400 Respiratory rate 20 /min Isidra Hernandez Other [employer] Other 09-21-2021 13:25-0400 SaO2% (BldA) [Mass fraction] 96 % Isidra Hernandez Other [employer] Other 09-21-2021 13:25-0400 Systolic blood pressure 146 mm[Hg] Isidra Hernandez Other [employer] Other Encounters Encounter Date Encounter Type Care Provider Facility Start: 06-10-2023 End: 06-11-2023 ambulatory EJ B APLING Not Available Start: 06-04-2023 End: 06-04-2023 FQHC visit, estab pt Latia Hoffmanim PLANNING COORDINATOR Work Phone: [facility] Work Phone: Start: 06-04-2023 End: 06-04-2023 General Latia Sparks PLANNING COORDINATOR Work Phone: [facility] Work Phone: Start: 05-27-2023 End: 05-28-2023 ambulatory EJ Alfred MADI Not Available Start: 05-17-2023 End: 05-17-2023 Evaluation and management of inpatient SUKUMAR A [facility] Start: 05-16-2023 End: 05-17-2023 Evaluation and management of inpatient [facility] Start: 05-16-2023 End: 05-16-2023 Evaluation and management of inpatient [facility] Start: 05-10-2023 End: 05-11-2023 ambulatory [facility] Start: 05-10-2023 End: 05-10-2023 Admission to same day surgery center Latia pSarks PLANNING COORDINATOR Work Phone: [facility] Work Phone: Start: 05-10-2023 End: 05-10-2023 FQ visit, estab pt Latia Sparks PLANNING COORDINATOR Work Phone: [facility] Work Phone: Start: 05-09-2023 Encounter for other preprocedural examination [facility] Start: 05-09-2023 End: 05-09-2023 Patient encounter procedure [facility] Pre-Admission Testing 2 [facility] - Pre Admit Comment on above: Preop examination (P rimary Dx); Type 2 diabetes mellitus without complication, without long-term current use of insulin ([facility]); Hypertension, unspecified type Start: 05-09-2023 End: 05-09-2023 Preprocedural examination done Pm 2 [facility] Start: 05-09-2023 End: 05-13-2023 ambulatory HARDY JAY [facility] Start: 05-07-2023 End: 05-07-2023 ambulatory HARDY JAY Not Available Start: 04-18-2023 End: 04-18-2023 [facility]QHC visit, estab pt Janina Meghan [employer] Work Phone: [facility] Work Phone: Start: 04-18-2023 End: 04-18-2023 [facility]QHC visit, estab pt Latia Sparks PLANNING COORDINATOR Work Phone: [facility] Work Phone: Start: 11-15-2022 End: 11-15-2022 [facility]QHC visit, estab pt Latia Sparks PLANNING COORDINATOR Work Phone: [facility] Work Phone: Start: 11-15-2022 End: 11-15-2022 General Latia Sparks PLANNING COORDINATOR Work Phone: [facility] Work Phone: Start: 11-09-2022 End: 11-10-2022 ambulatory LATIA SPARKS [facility] Start: 11-08-2022 End: 11-08-2022 FQHC visit, estab pt Janina Meghan [employer] Work Phone: [facility] Work Phone: Start: 11-08-2022 End: 11-08-2022 Encounter for preprocedural laboratory examination Latia Sparks PLANNING COORDINATOR Work Phone: [facility] Work Phone: Start: 11-08-2022 End: 11-08-2022 Nursing evaluation of patient and report Latia Sparks PLANNING COORDINATOR Work Phone: [facility] Work Phone: Start: 09-26-2022 End: 09-26-[address] DOCTOR WILSON Facility:H1 Start: 09-25-2022 End: 09-25-2022 ambulatory NARENDRANATH LAKSHMIPATHY . Facility:H1 Start: 08-28-2022 End: 08-29-2022 ambulatory NARENDRANATH LAKSHMIPATHY . Facility:H1 Start: 08-14-2022 End: 08-14-2022 ambulatory NARENDRANATH LAKSHMIPATHY . Facility:H1 Start: 08-02-2022 End: 08-02-2022 FQHC visit, estab pt Latia Sparks PLANNING COORDINATOR Work Phone: [facility] Work Phone: Start: 07-27-2022 End: 07-28-2022 ambulatory GERALDO PRADO Facility:H1 Start: 07-23-2022 End: 07-23-2022 FQHC visit, estab pt Cinthia Adolph SUPERVISOR INSPECTION Work Phone: [facility] Work Phone: Start: 07-23-2022 End: 07-23-2022 Adult health examination Latia Sparks PLANNING COORDINATOR Work Phone: [facility] Work Phone: Start: 07-23-2022 End: 07-23-2022 Encounter for preprocedural laboratory examination Latia Sparks PLANNING COORDINATOR Work Phone: [facility] Work Phone: Start: 07-23-2022 End: 07-23-2022 FQHC visit new patient Latia Sparks PLANNING COORDINATOR Work Phone: [facility] Work Phone: Start: 07-23-2022 End: 07-24-2022 ambulatory [facility] Start: 07-23-2022 End: 07-24-2022 Encounter for general adult medical examination without abnormal findings [facility] Start: 07-23-2022 End: 07-23-2022 Subsequent hospital visit by physician JANINE HUMPHRIES [facility] Start: 07-19-2022 End: 07-20-[address] DOCTOR WILSON Facility:H1 Start: 07-18-2022 End: 07-18-[address] DOCTOR WILSON Facility:[facility]1 Start: 07-17-2022 End: 07-18-2022 ambulatory GERALDO PRADO Facility:[facility]1 Start: 07-12-2022 ambulatory Latia Sparks PLANNING COORDINATOR [facility] Start: 09-21-2021 End: 09-21-2021 ambulatory Isidra Hernandez Other [employer] Other Start: 09-21-2021 Office outpatient ne w 20 minutes Isidra Hernandez [facility] Start: 09-21-2021 End: 09-21-2021 Patient encounter procedure MD Constantine Hernandez Work Phone: [facility] Start: 05-21-2018 End: 05-26-2018 Patient encounter procedure STIVEN ANDINO Facility:[facility] Obstetrics Start: 01-08-2018 Patient encounter Morgan Barcenas [facility] Start: 04-21-2014 Documentation procedure Aram Esquivel MD Work Phone: [facility] Start: 04-21-2014 Historic EMR Aram soto MD Work Phone: [facility] Procedures Date Procedure Procedure Detail Performing Clinician Start: 06-04-2023 Current tobacco smoker Latia Sparks FN P Work Phone: Start: 06-04-2023 FQHC visit, estab pt Latia Sparks PLANNING COORDINATOR Work Phone: Start: 06-04-2023 Most recent diastolic blood pressure < 80 mm hg Latia Sparks PLANNING COORDINATOR Work Phone: Start: 06-04-2023 Most recent systolic blood press 130-139mm hg Latia Sparks PLANNING COORDINATOR Work Phone: Start: 06-04-2023 Orthopedic Surgery Back Latia Sparks F SHRUB PLANTER Work Phone: Start: 06-04-2023 Pt scrnd tobacco use rcvd tobacco cessation talk Latia Sparks PLANNING COORDINATOR Work Phone: Start: 05-10-2023 Current tobacco smoker Latia Sparks FN P Work Phone: Start: 05-10-2023 [facility] visit, estab pt Latia Sparks PLANNING COORDINATOR Work Phone: Start: 05-10-2023 Most recent diastolic blood pressure < 80 mm hg Latia Sparks PLANNING COORDINATOR Work Phone: Start: 05-10-2023 Most recent systolic blood press 130-139mm hg Latia Sparks PLANNING COORDINATOR Work Phone: Start: 05-10-2023 Pt scrnd tobacco use rcvd tobacco cessation talk Latia Sparks PLANNING COORDINATOR Work Phone: Start: 04-18-2023 Current tobacco smoker Latia Sparks FN P Work Phone: Start: 04-18-2023 [facility] visit, MH estab pt Janina Christianson LI SW-S Work Phone: Start: 04-18-2023 Gluc bld gluc mntr dev cleared fda spec home use Latia Sparks PLANNING COORDINATOR Work Phone: Start: 04-18-2023 Most recent diastolic blood pressure 80-89 mm hg Latia Sparks PLANNING COORDINATOR Work Phone: Start: 04-18-2023 Most recent hg a1c>equal to 7.0%&<8.0% Latia Sparks PLANNING COORDINATOR Work Phone: Start: 04-18-2023 Most recent systolic blood press 130-139mm hg Latia Sparks PLANNING COORDINATOR Work Phone: Start: 04-18-2023 Psychotherapy w/patient 30 minutes Janina Meghan SUPERVISOR INSPECTION-S Work Phone: Start: 04-18-2023 Pt scrnd tobacco use rcvd tobacco cessation talk Latia Sparks PLANNING COORDINATOR Work Phone: Start: 11-15-2022 FQHC visit, estab pt Latia Sparks PLANNING COORDINATOR Work Phone: Start: 11-15-2022 Most recent diastolic blood pressure 80-89 mm hg Latia Sparks PLANNING COORDINATOR Work Phone: Start: 11-15-2022 Most recent systolic blood pres>/equal 140 mm hg Latia Sparks PLANNING COORDINATOR Work Phone: Start: 11-08-2022 Collection venous blood venipuncture Latia Sparks PLANNING COORDINATOR Work Phone: Start: 11-08-2022 FQ visit, MH estab pt Janina Christianson LI SW-S Work Phone: Start: 11-08-2022 Psychotherapy w/patient 30 minutes Janina Christianson SUPERVISOR INSPECTION-S Work Phone: Start: 08-02-2022 Counseling Visit For: Consulting For Explanation of Examination Or Test Findings Latia Sparks PLANNING COORDINATOR Work Phone: Start: 08-02-2022 FQHC visit, estab pt Latia Sparks PLANNING COORDINATOR Work Phone: Start: 08-02-2022 Most recent diastolic blood pressure 80-89 mm hg Latia Sparks PLANNING COORDINATOR Work Phone: Start: 08-02-2022 Most recent systolic blood press 130-139mm hg Latia Sparks PLANNING COORDINATOR Work Phone: Start: 07-23-2022 Cholecystectomy Latia Sparks PLANNING COORDINATOR Work Phone: Start: 07-23-2022 Collection venous blood venipuncture Latia Sparks PLANNING COORDINATOR Work Phone: Start: 07-23-2022 FQ visit, MH estab pt Cinthia Farfan LIS W-S Work Phone: Start: 07-23-2022 Hysterectomy Latia Sparks PLANNING COORDINATOR Work Phone: Start: 07-23-2022 Ligation of fallopian tube Latia Yasmini m PLANNING COORDINATOR Work Phone: Start: 07-23-2022 Most recent diastol blood pres >/equal 90 mm hg Latia Sparks PLANNING COORDINATOR Work Phone: Start: 07-23-2022 Most recent hg a1c>equal to 8.0%& Latia Sparks PLANNING COORDINATOR Work Phone: Start: 07-23-2022 Most recent systolic blood pressure <130 mm hg Latia Sparks PLANNING COORDINATOR Work Phone: Start: 07-23-2022 Pt-focused hlth risk assmt score doc stnd instrm Latia Sparks PLANNING COORDINATOR Work Phone: Start: 07-23-2022 Urine albumin semiquantitative Latia Sparks PLANNING COORDINATOR Work Phone: Start: 07-23-2022 Hemoglobin glycosylated a1c Latia Ibrah im PLANNING COORDINATOR Work Phone: Start: 07-23-2022 Hepatitis c antibody Latia Sparks PLANNING COORDINATOR Work Phone: Start: 07-23-2022 IMMATURE PLATELET FRACTION Latia Andree m GAME ENGINEER - MEDIA SERVICES COORDINATOR Work Phone: Start: 09-21-2021 X-ray of left [...] Adult BMI Screening Adult BMI Screen ing [facility] Start: 05-09-2024 Tobacco Screening Tobacco Screening [facility] Start: 09-04-2023 FQHC visit, estab pt Medical E stablished Patient [facility] Work Phone: Start: 07-18-2023 FQHC visit, estab pt Medical E stablished Patient [facility] Work Phone: Start: 06-21-2023 FQHC visit, estab pt Medical E stablished Patient [facility] Work Phone: Start: 06-05-2023 Dental Comp Exam [facility] Work Phone: Start: 06-04-2023 FQHC visit, estab pt Medical E stablished Patient [facility] Work Phone: Start: 06-04-2023 End: 06-04-2023 Patient education based on identified need [facility] Start: 05-16-2023 End: 05-16-2023 Admission to same day surgery center 05/16/2023 2:00 PM EST - 05/16/2023 3:15 PM EST Surgery [facility] - Surgery [address] [place] [id number] Hardy Jay, DO [address] [place] [address] BALLOON KYPHOPLASTY SPINE [01816 (CPT )] [facility] Comment on above: BALLOON KYPHOPLASTY SPINE [24874 (CPT )] Start: 05-16-2023 End: 05-16-2023 Perq vert agmntj cavity crtj uni/bi cannulation BALLOON KYPHOPLASTY SPINE copression fracture L2 05/16/2023 2:00 PM EST [facility] Start: 05-16-2023 Subsequent hospital visit by physician 05/16/2023 2:00 PM EST Hospital Encounter [facility] - Surgery [address] [place] [id number] Hardy Jay, [address] [place] [address] [facility] Start: 05-10-2023 End: 05-10-2023 Patient education based on identified need [facility] Start: 04-18-2023 End: 04-18-2023 Patient education based on identified need [facility] offered active and supportive listening, validated emotions and feelings, and processed current stressors with being in the hospital. ~[facility] encouraged patient to utilize positive supports and coping skills. ~ [facility] Start: 04-18-2023 End: 04-18-2023 Patient education based on identified need [facility] Start: 01-18-2023 Influenza vaccination Influenza Vacc ine [facility] Start: 11-15-2022 End: 11-15-2022 Patient education based on identified need [facility] Start: 11-15-2022 Lipid 1996 panel - Serum or Plasma [facility] Start: 11-08-2022 End: 11-08-2022 Patient education based on identified need [facility] encouraged patient to utilize positive supports and coping skills. ~[facility] encouraged patient to contact [facility] if they need any additional support or resources. ~ [facility] Start: 11-01-2022 FQHC visit, estab pt Medical E stablished Patient [facility] Work Phone: Start: 10-18-2022 ambulatory Ambulatory Facility:H 1 Start: 08-02-2022 FQHC visit, estab pt Medical E stablished Patient [facility] Work Phone: Start: 08-02-2022 End: 08-02-2022 Patient education based on identified need [facility] Start: 08-02-2022 End: 08-02-2022 Provider instructions for treatment Intervention and counseling on cessation of tobacco use, 3-10 minutes Discussed medication and nicotine replacement for tobacco cessation [facility] Start: 07-30-2022 CBC panel - Blood by Automated count [facility] Start: 07-30-2022 Lipid 1996 panel - Serum or Plasma LIPID PROFILE [facility] Start: 07-23-2022 End: 07-23-2022 Patient education based on identified need [facility] Start: 07-23-2022 End: 07-23-2022 Provider instructions for treatment Intervention and counseling on cessation of tobacco use, 3-10 minutes Discussed medication and nicotine replacement for tobacco cessation [facility] Start: 12-18-2021 Influenza vaccination Flu vaccine (# 1) [facility] Start: 2017 Fall Risk Screening [facility] Start: 1971 DTaP,Tdap and Td Vaccines (1 - Tdap) DTaP,Tdap and Td Vaccines (1 - Tdap) [facility] Start: 1971 DTaP/Tdap/Td vaccine (1 - Tdap) DTaP/Tdap/Td vaccine (1 - Tdap) [facility] Start: 1970 Adult BMI Follow Up Plan Adult BMI Follow [facility] Plan [facility] Start: 1970 Diabetic foot examination [facility] Start: 1964 Depression Screening [facility] Scre [facility]ing [facility] Start: 1950 COVID-19 Vaccine (#1) COVID-19 Vacci ne (#1) [facility] Start: 1950 Glaucoma screening Diabetic Op [facility] Start: 1950 Medicare Annual Wellness Visit Medicare Annual Wellness Visit [facility] Start: 1950 Tobacco Counseling Tobacco Counselin g [facility] Immunizations Immunization Date Immunization Notes Care Provider Asiya tolbert 02-14-2017 influenza virus vacc ine, unspecified formulation [facility] 2 [facility] Payers Date Payer Category Payer Medicare 2019 Medicaid MEDICAID [facility] M EDICAID [id number] 2019-Present [phone] [address] [place] [address] [id number] 2018 Medicare [id number] 2014 Private Health Insurance [id number] 2014 Unknown [id number] [id number] 1959 Medicaid [id number] 1952 Unknown [id number] 2.16.840.1.756418.3.579.2. 627 1952 Unknown [id number] 2.16.840.1.229549.3.579.2. 593 1952 Unknown [id number] 2.16.840.1.260430.3.579.2. 593 1952 Unknown [id number] 2.16.840.1.657235.3.579.2. 593 1952 Unknown [id number] 2.16.840.1.199163.3.579.2. 593 1952 Unknown [id number] 2.16.840.1.706643.3.579.2. 593 1952 Unknown [id number] 2.16.840.1.665243.3.579.2. 593 1952 Unknown [id number] 2.16.840.1.626738.3.579.2. 593 1952 Unknown [id number] 2.16.840.1.147197.3.579.2. 593 1952 Unknown [id number] 2.16.840.1.196722.3.579.2. 593 1952 Unknown [id number] 2.16.840.1.262351.3.579.2. 175 1952 Unknown [id number] 2.16.840.1.011587.3.579.2. 175 1952 Unknown [id number] 2.16.840.1.019634.3.579.2. 1286 1952 Unknown [id number] 2.16.840.1.114772.3.579.2. 1286 1952 Unknown [id number] 2.16.840.1.650047.3.579.2. 1286 1952 Unknown [id number] 2.16.840.1.845805.3.579.2. 1286 1952 Unknown [id number] 2.16.840.1.262701.3.579.2. 1286 1952 Unknown [id number] 2.16.840.1.283724.3.579.2. 1286 1952 Unknown [id number] 2.16.840.1.876364.3.579.2. 1286 1952 Unknown [id number] 2.16.840.1.827260.3.579.2. 1286 1952 Unknown [id number] 2.16.840.1.456280.3.579.2. 1286 1952 Unknown [id number] 2.16.840.1.022451.3.579.2. 1259 1952 Unknown [id number] 2.16.840.1.241458.3.579.2. 1259 1952 Unknown [id number] 2.16.840.1.494010.3.579.2. 1259 1952 Unknown [id number] 2.16.840.1.351396.3.579.2. 1259 1952 Unknown [id number] 2.16.840.1.076897.3.579.2. 1259 1952 Unknown [id number] 2.16.840.1.653909.3.579.2. 1259 Self-pay Unknown 1 - [facility] hcare Dual Complet [id number] 2.16.840.1.448583.3.140.1. 29856.5.10.6.3 Social History Date Type Detail Facility Start: 1950 Sex Assigned At Female [facility] Start: 10-29-2019 End: 06-30-2020 Sex Assigned At [employer] Other Assertion Currently not se xually active (finding) [facility] Assertion Cigarette smoker (finding) [facility] Assertion Smoker (finding) [facility] Assertion Moderate cigaret te smoker (10-19 cigs/day) (finding) [facility] Assertion Exposure to poll ution (event) [facility] Assertion Gender identity finding (finding) [facility] Assertion Finding of sexua l orientation (finding) [facility] Tobacco smoking status Unknown if ever smoked [facility] Assertion History of disor vivian (situation) [facility] Assertion Emotional stress (finding) [facility] Assertion Finding of resid ence and accommodation circumstances (finding) [facility] Assertion Light cigarette smoker (1-9 cigs/day) (finding) [facility] Start: 1950 Sex Assigned At Not on file [facility] Work Phone: Start: 05-09-2023 Tobacco smoking status NHIS Smokes tobacco daily [facility] Start: 06-30-2020 End: 05-09-2023 Cigarettes smoked current (pack per day) - Reported 0.3 [facility] Start: 05-09-2023 Tobacco use and exposure Smokeless tobacco non-user [facility] Start: 05-09-2023 Alcohol intake Lifetime non-d aurora (finding) [facility] How often to you have a drink containing alcohol? Never [facility] Average Number of Drinks Not on file [facility] Start: 05-09-2023 Tobacco Comment 4 cigarettes per day [facility] NEGATED: Highlighted row - - [facility] Work Phone: NEGATED: Highlighted row Assertion Current drinker of alcohol (finding) [facility] NEGATED: Highlighted row Assertion Finding relating to drug misuse behavior (finding) [facility] NEGATED: Highlighted row Assertion [facility] NEGATED: Highlighted row Assertion Sexually active (finding) [facility] NEGATED: Highlighted row Assertion Exposure to pollution (event) [facility] Medical Equipment Procedure Code Equipment Code Equipment Origin al Text Equipment Identifier Dates BD Pen Needle Na no 2nd Gen 32G X 4 MM Miscellaneous [id number] Start: 07-23-2022 End: 08-02-2022 BD Pen Needle Na no 2nd Gen 32G X 4 MM Miscellaneous [id number] Start: 08-28-2022 BD Pen Needle Na no 2nd Gen 32G X 4 MM Miscellaneous [id number] Start: 08-22-2022 End: 08-02-2022 Functional Status Date Assessment Result Facility NEGATED: Highlighted row Functional performance Functional status health issues are not documented Disease [facility] Work Phone: Mental Status Date Assessment Result Facility Cognitive function Moderate recu rrent major depression Moderate recurrent major depression (disorder) [facility] Work Phone: NEGATED: Highlighted row Cognitive function [Interpretation] Cognitive status health issues are not documented Disease [facility] Work Phone: Clinical Notes 09-21-2021 to 06-18-2023 Note Date & Type Note Facility 06-18-2023 Instructions Includes: Instructions for all patient encounters Intervention and counseling on cessation of tobacco use, 3-10 minutes Discussed medication and nicotine replacement for tobacco cessation Last Documented On 3 1:05PM ; [facility] Intervention and counseling on cessation of tobacco use, 3-10 minutes Discussed medication and nicotine replacement for tobacco cessation Last Documented On 3 1:02PM ; [facility] Intervention and counseling on cessation of tobacco use, 3-10 minutes Discussed medication and nicotine replacement for tobacco cessation Last Documented On 3 1:13PM ; [facility] Education and Decision Aids were provided during visit for: Discussed nutritional needs 35.4 teach healthy choices including fruits and vegetables Last Documented On 4 10:44AM ; [facility] Patient education about a pr oper diet Last Documented On 4 10:44AM ; [facility] Patient education about phys ical activity benefits Last Documented On 4 11:51AM ; [facility] Patient education about ment al health Last Documented On 4 11:51AM ; [facility] Patient education about diab etes Take your medications every day, even if you feel good. ~Check your blood sugar ____ times per day and write it on your log. ~Limit the amount of pastas, breads, cookies, candies, cakes and soda so your sugar is better controlled Last Documented On 4 11:51AM ; [facility] Patient education about nasa l irrigation Last Documented On 4 11:51AM ; [facility] Discussed concerns about exe rcise : promote physical activity Last Documented On 4 10:44AM ; [facility] Discussed nutritional needs teach healthy choices including fruits and vegetables Last Documented On 3 10:09AM ; [facility] Patient education about a pr oper diet 35.7 Last Documented On 3 10:09AM ; [facility] Discussed concerns about exe rcise : promote physical activity Last Documented On 3 10:09AM ; [facility] offered active and suppo rtive listening, validated emotions and feelings, and processed current stressors with being in the hospital. ~P encouraged patient to utilize positive supports and coping skills. ~ Last Documented On 3 1:42PM ; [facility] Discussed nutritional needs teach healthy choices including fruits and vegetables Last Documented On 3 2:16PM ; [facility] Patient education about a pr oper diet 35.7 Last Documented On 3 2:16PM ; [facility] Patient education about phys ical activity benefits Last Documented On 3 10:09PM ; [facility] Patient education about medi cation Last Documented On 3 10:09PM ; [facility] Patient education about ment al health Last Documented On 3 10:09PM ; [facility] Discussed concerns about exe rcise : promote physical activity Last Documented On 3 2:16PM ; [facility] Not requesting contraception Last Documented On 3 2:16PM ; [facility] Discussed nutritional needs teach healthy choices including fruits and vegetables Last Documented On 3 2:25PM ; [facility] Patient education about a pr oper diet 37.4 Last Documented On 3 2:25PM ; [facility] Patient education about phys ical activity benefits Last Documented On 3 2:50PM ; [facility] Patient education about medi cation Last Documented On 3 2:50PM ; [facility] Patient education about ment al health Last Documented On 3 2:50PM ; [facility] Discussed concerns about exe rcise : promote physical activity Last Documented On 3 2:25PM ; [facility] encouraged patient to ut ilize positive supports and coping skills. ~[facility] encouraged patient to contact [facility] if they need any additional support or resources. ~ Last Documented On 3 10:03PM ; [facility] Discussed nutritional needs teach healthy choices including fruits and vegetables Last Documented On 3 10:23AM ; [facility] Patient education about a pr oper diet 36.7 Last Documented On 3 10:23AM ; [facility] Patient education about phys ical activity benefits Last Documented On 3 1:07PM ; [facility] Patient education about medi cation Last Documented On 3 1:07PM ; [facility] Patient education about ment al health Last Documented On 3 1:07PM ; [facility] Discussed concerns about exe rcise : promote physical activity Last Documented On 3 10:23AM ; [facility] introduced patient to [facility] integrated model of care. ~[facility] offered active and supportive listening, normalized emotions and feelings, and processed current stressors. ~Discussed healthy coping skills and positive supports in patient's life. ~Discussed healthy lifestyle behaviors. ~ Last Documented On 3 12:10AM ; [facility] Discussed nutritional needs 36 teach healthy choices including fruits and vegetables Last Documented On 3 12:20PM ; [facility] Patient education about a pr oper diet 36 Last Documented On 3 12:20PM ; [facility] Discussed concerns about exe rcise : promote physical activity Last Documented On 3 12:20PM ; [facility] Referred Patient to a Diabet es Self-Management Program Last Documented On 3 1:46PM ; [facility] Work Phone: [phone] 964-589801-16-2024 Evaluation note Includes: Assessments for all patient encounters Findings Encounter Date [Z68.35 - Body mass index [B FL] 35.0-35.9, adult] assessment of body mass index Medical Established Patient with Latia Sparks PLANNING COORDINATOR 06/04/2023 Last Documented On 4 11:53AM ; [facility] Nicotine dependence Medical Established Patient with Latia Sparks PLANNING COORDINATOR 06/04/2023 Last Documented On 4 11:53AM ; [facility] [Z68.35 - Body mass index [B FL] 35.0-35.9, adult] assessment of body mass index Medical Established Patient with Latia Sparks PLANNING COORDINATOR 05/10/2023 Last Documented On 3 10:52AM ; [facility] Nicotine dependence Medical Established Patient with Latia Sparks PLANNING COORDINATOR 05/10/2023 Last Documented On 3 10:52AM ; [facility] Visit for: preoperative exam Medical Est ablished Patient with Latia Sparks PLANNING COORDINATOR 05/10/2023 Last Documented On 3 10:52AM ; [facility] Moderate recurrent major depression BH E stablished Patient with Janina Meghan SUPERVISOR INSPECTION-S 04/18/2023 Last Documented On 3 1:42PM ; [facility] [Z68.35 - Body mass index [B FL] 35.0-35.9, adult] assessment of body mass index Medical Established Patient with Latia Sparks PLANNING COORDINATOR 04/18/2023 Last Documented On 3 10:11PM ; [facility] Nicotine dependence Medical Established Patient with Latia Sparks PLANNING COORDINATOR 04/18/2023 Last Documented On 3 10:11PM ; [facility] 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 11/08/2022 Last Documented On 3 2:16PM ; [facility] Venipuncture was performed Nurse Visit with Kathia Sparks [facility] 11/08/2022 Last Documented On 3 2:16PM ; [facility] [Z68.36 - Body mass index [B FL] 36.0-36.9, adult] assessment of body mass index Medical Established Patient with Latia Sparks PLANNING COORDINATOR 08/02/2022 Last Documented On 3 1:36PM ; [facility] Intervention and counseling on cessation of tobacco use, 3-10 minutes Discussed medication and nicotine replacement for tobacco cessation Medical Established Patient with Latia Sparks [facility] 08/02/2022 Last Documented On 3 1:36PM ; [facility] Visit for: person consulting for explanation of examination or test findings Medical Established Patient with Latia Sparks [facility] 08/02/2022 Last Documented On 3 1:36PM ; [facility] Generalized anxiety disorder Establis hed Patient with Cinthia Stone SUPERVISOR INSPECTION-S 07/23/2022 Last Documented On 3 12:17AM ; [facility] Intervention and counseling on cessation of tobacco use, 3-10 minutes Discussed medication and nicotine replacement for tobacco cessation Established Patient with Cinthia Stone SUPERVISOR INSPECTION-S 07/23/2022 Last Documented On 3 12:17AM ; [facility] Moderate recurrent major depression E stablished Patient with Cinthia Stone SUPERVISOR INSPECTION-S 07/23/2022 Last Documented On 3 12:17AM ; [facility] Nicotine dependence Established Patient with Cinthia Stone SUPERVISOR INSPECTION-S 07/23/2022 Last Documented On 3 12:17AM ; [facility] Primary insomnia Established Patient with Deysi pugh Stone SUPERVISOR INSPECTION-S 07/23/2022 Last Documented On 3 12:17AM ; [facility] [Z68.36 - Body mass index [B FL] 36.0-36.9, adult] assessment of body mass index Medical New Patient with Latia GREENP 07/23/2022 Last Documented On 3 2:32PM ; [facility] Diabetes Risk Test Score was nine score 07/23/2022 Medical New Patient with Latia Sparks PLANNING COORDINATOR 07/23/2022 Last Documented On 3 2:32PM ; [facility] Intervention and counseling on cessation of tobacco use, 3-10 minutes Discussed medication and nicotine replacement for tobacco cessation Medical New Patient with Latia Sparks PLANNING COORDINATOR 07/23/2022 Last Documented On 3 2:32PM ; [facility] Screening for Hep C Medical New Patient with Nad yelitza Sparks PLANNING COORDINATOR 07/23/2022 Last Documented On 3 2:32PM ; [facility] Screening for HIV Medical New Patient with Hiren Sparks PLANNING COORDINATOR 07/23/2022 Last Documented On 3 2:32PM ; [facility] Venipuncture was performed Medical New Patient w dmitry Sparks [facility] 07/23/2022 Last Documented On 3 2:32PM ; [facility] Visit for routine adult H&P without abnormal findings Medical New Patient with Latia Sparks PLANNING COORDINATOR 07/23/2022 Last Documented On 3 2:32PM ; [facility] Work Phone: 1(461) 888-896501-16-2024 Progress note* Progress note Date Encounter Last Documented by 06/04/2023 Medical Established Patient Last documented on 06/04/2023; 11:53 AM, Latia Sparks 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 Referred Here Referred by emergency room back surgery [facility] follow up. Prior encounters. - Data to [...] to physical therapy. The patient lives at [facility], reporting the nurses at the facility have been giving her daily [place] instead of twice a day. The patient has been encouraged to speak with DON at the [facility]. Follow up in 3 months Current [...] previous hospitalizations. A recent examination by an mash tub cooker 07/21/2022 results in eye. Recent eye exam [...] dhaliwal) and gender identity Female. Allergies - [place] Reaction: Hives / Urticaria, Shock - Mellaril [...] BP-Sitting R138/80 mmHg BP Cuff SizeRegular Pulse Rate-Jqqpitw29 bpm Aupccg72 in Exzzgd398 lbs Body Mass Index35.4 kg/m2 Body Surface Area2 m2 Oxygen Bylpzfonfe72 % O2 DeviceNone (Room Air) EcL107 % Vital Signs: - Systolic blood pressure [...] in the COVID-19 vaccination at this time. [facility]01-16-2024 Instructions Includes: Instructions for all patient encounters Instructions to patient Intervention and counseling on cessation of tobacco use, 3-10 minutes Discussed medication and nicotine replacement for tobacco cessation Last Documented On 3 1:05PM ; [facility] Intervention and counseling on cessation of tobacco use, 3-10 minutes Discussed medication and nicotine replacement for tobacco cessation Last Documented On 3 1:02PM ; [facility] Intervention and counseling on cessation of tobacco use, 3-10 minutes Discussed medication and nicotine replacement for tobacco cessation Last Documented On 3 1:13PM ; [facility] Education and Decision Aids were provided during visit for: Discussed nutritional needs 35.4 teach healthy choices including fruits and vegetables Last Documented On 4 10:44AM ; [facility] Patient education about a pr oper diet Last Documented On 4 10:44AM ; [facility] Patient education about phys ical activity benefits Last Documented On 4 11:51AM ; [facility] Patient education about ment al health Last Documented On 4 11:51AM ; [facility] Patient education about diab etes Take your medications every day, even if you feel good. ~Check your blood sugar ____ times per day and write it on your log. ~Limit the amount of pastas, breads, cookies, candies, cakes and soda so your sugar is better controlled Last Documented On 4 11:51AM ; [facility] Patient education about nasa l irrigation Last Documented On 4 11:51AM ; [facility] Discussed concerns about exe rcise : promote physical activity Last Documented On 4 10:44AM ; [facility] Discussed nutritional needs teach healthy choices including fruits and vegetables Last Documented On 3 10:09AM ; [facility] Patient education about a pr oper diet 35.7 Last Documented On 3 10:09AM ; [facility] Discussed concerns about exe rcise : promote physical activity Last Documented On 3 10:09AM ; [facility] offered active and suppo rtive listening, validated emotions and feelings, and processed current stressors with being in the hospital. ~P encouraged patient to utilize positive supports and coping skills. ~ Last Documented On 3 1:42PM ; [facility] Discussed nutritional needs teach healthy choices including fruits and vegetables Last Documented On 3 2:16PM ; [facility] Patient education about a pr oper diet 35.7 Last Documented On 3 2:16PM ; [facility] Patient education about phys ical activity benefits Last Documented On 3 10:09PM ; [facility] Patient education about medi cation Last Documented On 3 10:09PM ; [facility] Patient education about ment al health Last Documented On 3 10:09PM ; [facility] Discussed concerns about exe rcise : promote physical activity Last Documented On 3 2:16PM ; [facility] Not requesting contraception Last Documented On 3 2:16PM ; [facility] Discussed nutritional needs teach healthy choices including fruits and vegetables Last Documented On 3 2:25PM ; [facility] Patient education about a pr oper diet 37.4 Last Documented On 3 2:25PM ; [facility] Patient education about phys ical activity benefits Last Documented On 3 2:50PM ; [facility] Patient education about medi cation Last Documented On 3 2:50PM ; [facility] Patient education about ment al health Last Documented On 3 2:50PM ; [facility] Discussed concerns about exe rcise : promote physical activity Last Documented On 3 2:25PM ; [facility] encouraged patient to ut ilize positive supports and coping skills. ~[facility] encouraged patient to contact [facility] if they need any additional support or resources. ~ Last Documented On 3 10:03PM ; [facility] Discussed nutritional needs teach healthy choices including fruits and vegetables Last Documented On 3 10:23AM ; [facility] Patient education about a pr oper diet 36.7 Last Documented On 3 10:23AM ; [facility] Patient education about phys ical activity benefits Last Documented On 3 1:07PM ; [facility] Patient education about medi cation Last Documented On 3 1:07PM ; [facility] Patient education about ment al health Last Documented On 3 1:07PM ; [facility] Discussed concerns about exe rcise : promote physical activity Last Documented On 3 10:23AM ; [facility] introduced patient to [facility] integrated model of care. ~[facility] offered active and supportive listening, normalized emotions and feelings, and processed current stressors. ~Discussed healthy coping skills and positive supports in patient's life. ~Discussed healthy lifestyle behaviors. ~ Last Documented On 3 12:10AM ; [facility] Discussed nutritional needs 36 teach healthy choices including fruits and vegetables Last Documented On 3 12:20PM ; [facility] Patient education about a pr oper diet 36 Last Documented On 3 12:20PM ; [facility] Discussed concerns about exe rcise : promote physical activity Last Documented On 3 12:20PM ; [facility] Referred Patient to a Diabet es Self-Management Program Last Documented On 3 1:46PM ; [facility] Work Phone: 1(256) 417-542812-22-2023 Progress note* Progress note Date Encounter Last Documented by 05/10/2023 Medical Established Patient Last documented on 05/10/2023; 10:52 AM, Latia GREENP; [facility] Active Problems & Conditions - E11.610 [...] needs refill on Fenofibrate. Pt went to [facility] on 05/02 and they found compression fractures on back. Referred Here Not referred by urgent care clinic and not the emergency room. Prior encounters. - Data to be reviewed: clinical lab tests Catscan on 05/02 on back [facility] History of Present Illness Tunde Jack is [...] previous hospitalizations. A recent examination by an mash tub cooker 07/21/2022. Recent eye exam showed no apparent [...] BP-Sitting R133/76 mmHg BP Cuff SizeLarge Pulse Rate-Plgzlqe333 bpm Temp-Oral97.8 F Szsggc67 in Pvtlfy721 lbs 12.8 oz Body Mass Index35.7 kg/m2 Body Surface Area2 m2 Oxygen Dfqdmwdmxf09 % O2 DeviceNone (Room Air) LzT689 % Vital Signs: - Systolic blood pressure [...] in the COVID-19 vaccination at this time. [facility]12-22-2023 Instructions Includes: Instructions for all patient encounters Instructions to patient Intervention and counseling on cessation of tobacco use, 3-10 minutes Discussed medication and nicotine replacement for tobacco cessation Last Documented On 3 1:05PM ; [facility] Intervention and counseling on cessation of tobacco use, 3-10 minutes Discussed medication and nicotine replacement for tobacco cessation Last Documented On 3 1:02PM ; [facility] Intervention and counseling on cessation of tobacco use, 3-10 minutes Discussed medication and nicotine replacement for tobacco cessation Last Documented On 3 1:13PM ; [facility] Education and Decision Aids were provided during visit for: Discussed nutritional needs teach healthy choices including fruits and vegetables Last Documented On 3 10:09AM ; [facility] Patient education about a pr oper diet 35.7 Last Documented On 3 10:09AM ; [facility] Discussed concerns about exe rcise : promote physical activity Last Documented On 3 10:09AM ; [facility] offered active and suppo rtive listening, validated emotions and feelings, and processed current stressors with being in the hospital. ~P encouraged patient to utilize positive supports and coping skills. ~ Last Documented On 3 1:42PM ; [facility] Discussed nutritional needs teach healthy choices including fruits and vegetables Last Documented On 3 2:16PM ; [facility] Patient education about a pr oper diet 35.7 Last Documented On 3 2:16PM ; [facility] Patient education about phys ical activity benefits Last Documented On 3 10:09PM ; [facility] Patient education about medi cation Last Documented On 3 10:09PM ; [facility] Patient education about ment al health Last Documented On 3 10:09PM ; [facility] Discussed concerns about exe rcise : promote physical activity Last Documented On 3 2:16PM ; [facility] Not requesting contraception Last Documented On 3 2:16PM ; [facility] Discussed nutritional needs teach healthy choices including fruits and vegetables Last Documented On 3 2:25PM ; [facility] Patient education about a pr oper diet 37.4 Last Documented On 3 2:25PM ; [facility] Patient education about phys ical activity benefits Last Documented On 3 2:50PM ; [facility] Patient education about medi cation Last Documented On 3 2:50PM ; [facility] Patient education about ment al health Last Documented On 3 2:50PM ; [facility] Discussed concerns about exe rcise : promote physical activity Last Documented On 3 2:25PM ; [facility] encouraged patient to ut ilize positive supports and coping skills. ~[facility] encouraged patient to contact [facility] if they need any additional support or resources. ~ Last Documented On 3 10:03PM ; [facility] Discussed nutritional needs teach healthy choices including fruits and vegetables Last Documented On 3 10:23AM ; [facility] Patient education about a pr oper diet 36.7 Last Documented On 3 10:23AM ; [facility] Patient education about phys ical activity benefits Last Documented On 3 1:07PM ; [facility] Patient education about medi cation Last Documented On 3 1:07PM ; [facility] Patient education about ment al health Last Documented On 3 1:07PM ; [facility] Discussed concerns about exe rcise : promote physical activity Last Documented On 3 10:23AM ; [facility] introduced patient to [facility] integrated model of care. ~[facility] offered active and supportive listening, normalized emotions and feelings, and processed current stressors. ~Discussed healthy coping skills and positive supports in patient's life. ~Discussed healthy lifestyle behaviors. ~ Last Documented On 3 12:10AM ; [facility] Discussed nutritional needs 36 teach healthy choices including fruits and vegetables Last Documented On 3 12:20PM ; [facility] Patient education about a pr oper diet 36 Last Documented On 3 12:20PM ; [facility] Discussed concerns about exe rcise : promote physical activity Last Documented On 3 12:20PM ; [facility] Referred Patient to a Diabet es Self-Management Program Last Documented On 3 1:46PM ; [facility] Work Phone: 1(709) 368-894512-21-2023 Instructions* Patient Instructions* Jennifer Edmond RN - 05/09/2023 2:15 PM EST Preoperative Education Checklist- General Surgery date: 05/16/23 Surgery time: 2:00 p.m. Arrival time: 12:00 p.m. 1. Bring a photo ID and your insurance card with you the day of surgery. You will check in at the main lobby of the [facility]- registration desk is straight ahead as soon as you walk in. Tell them you are here for surgery. 2. If you have a Living Will/Durable Power of [employer] for Health Care that is not on [...] after you have bathed. 5. NO nail south korean/acrylic on at least one finger. If you are having a hand, wrist or foot surgery then all nail south korean and artificial/acrylic nails must be removed from [...] please call the Preadmission Testing office at [phone], Mon.-Fri. 7 a.m.-3 p.m. Leave a voicemail [...] appointment with your doctor. documented in this encounterUniversity Hospitals St. [facility] CenterYoPro Global [facility] [id number] Miscellaneous Notes* Perioperative Nursing Note - Jennifer Edmond RN - 05/09/2023 2:15 PM EST Preoperative Education Checklist- General Surgery date: 05/16/23 Surgery time: 2:00 p.m. Arrival time: 12:00 p.m. 1. Bring a photo ID and your insurance card with you the day of surgery. You will check in at the main lobby of the [facility]- registration desk is straight ahead as soon as you walk in. Tell them you are here for surgery. 2. If you have a Living Will/Durable Power of [employer] for Health Care that is not on [...] after you have bathed. 5. NO nail south korean/acrylic on at least one finger. If you are having a hand, wrist or foot surgery then all nail south korean and artificial/acrylic nails must be removed from [...] please call the Preadmission Testing office at [phone], Mon.-Fri. 7 a.m.-3 p.m. Leave a voicemail [...] reviewed. Patient verbalized understanding. [facility]* Perioperative Nursing Note - Jennifer Edmond RN - 05/09/2023 2:15 PM EST Preoperative Education Checklist- General Surgery date: 05/16/23 Surgery time: 2:00 p.m. Arrival time: 12:00 p.m. 1. Bring a photo ID and your insurance card with you the day of surgery. You will check in at the main lobby of the [facility]- registration desk is straight ahead as soon as you walk in. Tell them you are here for surgery. 2. If you have a Living Will/Durable Power of [employer] for Health Care that is not on [...] after you have bathed. 5. NO nail south korean/acrylic on at least one finger. If you are having a hand, wrist or foot surgery then all nail south korean and artificial/acrylic nails must be removed from [...] please call the Preadmission Testing office at [phone], Mon.-Fri. 7 a.m.-3 p.m. Leave a voicemail [...] to the follow-up appointment with your doctor. [facility] Nurse Note* Perioperative Nursing Note - Jennifer Edmond RN - 05/09/2023 2:15 PM EST Hibiclens and surgical instructions reviewed. Patient verbalized understanding. [facility]12-03-2023 Instructions Includes: Instructions for all patient encounters Instructions to patient Intervention and counseling on cessation of tobacco use, 3-10 minutes Discussed medication and nicotine replacement for tobacco cessation Last Documented On 3 1:05PM ; [facility] Intervention and counseling on cessation of tobacco use, 3-10 minutes Discussed medication and nicotine replacement for tobacco cessation Last Documented On 3 1:02PM ; [facility] Intervention and counseling on cessation of tobacco use, 3-10 minutes Discussed medication and nicotine replacement for tobacco cessation Last Documented On 3 1:13PM ; [facility] Education and Decision Aids were provided during visit for: [facility] offered active and suppo rtive listening, validated emotions and feelings, and processed current stressors with being in the hospital. ~[facility] encouraged patient to utilize positive supports and coping skills. ~ Last Documented On 3 1:42PM ; [facility] Discussed nutritional needs teach healthy choices including fruits and vegetables Last Documented On 3 2:16PM ; [facility] Patient education about a pr oper diet 35.7 Last Documented On 3 2:16PM ; [facility] Patient education about phys ical activity benefits Last Documented On 3 10:09PM ; [facility] Patient education about medi cation Last Documented On 3 10:09PM ; [facility] Patient education about ment al health Last Documented On 3 10:09PM ; [facility] Discussed concerns about exe rcise : promote physical activity Last Documented On 3 2:16PM ; [facility] Not requesting contraception Last Documented On 3 2:16PM ; [facility] Discussed nutritional needs teach healthy choices including fruits and vegetables Last Documented On 3 2:25PM ; [facility] Patient education about a pr oper diet 37.4 Last Documented On 3 2:25PM ; [facility] Patient education about phys ical activity benefits Last Documented On 3 2:50PM ; [facility] Patient education about medi cation Last Documented On 3 2:50PM ; [facility] Patient education about ment al health Last Documented On 3 2:50PM ; [facility] Discussed concerns about exe rcise : promote physical activity Last Documented On 3 2:25PM ; [facility] encouraged patient to ut ilize positive supports and coping skills. ~[facility] encouraged patient to contact [facility] if they need any additional support or resources. ~ Last Documented On 3 10:03PM ; [facility] Discussed nutritional needs teach healthy choices including fruits and vegetables Last Documented On 3 10:23AM ; [facility] Patient education about a pr oper diet 36.7 Last Documented On 3 10:23AM ; [facility] Patient education about phys ical activity benefits Last Documented On 3 1:07PM ; [facility] Patient education about medi cation Last Documented On 3 1:07PM ; [facility] Patient education about ment al health Last Documented On 3 1:07PM ; [facility] Discussed concerns about exe rcise : promote physical activity Last Documented On 3 10:23AM ; [facility] introduced patient to [facility] integrated model of care. ~P offered active and supportive listening, normalized emotions and feelings, and processed current stressors. ~Discussed healthy coping skills and positive supports in patient's life. ~Discussed healthy lifestyle behaviors. ~ Last Documented On 3 12:10AM ; [facility] Discussed nutritional needs 36 teach healthy choices including fruits and vegetables Last Documented On 3 12:20PM ; [facility] Patient education about a pr oper diet 36 Last Documented On 3 12:20PM ; [facility] Discussed concerns about exe rcise : promote physical activity Last Documented On 3 12:20PM ; [facility] Referred Patient to a Diabet es Self-Management Program Last Documented On 3 1:46PM ; [facility] Work Phone: 1(918) 381-922812-02-2023 Instructions Includes: Instructions for all patient encounters Instructions to patient Intervention and counseling on cessation of tobacco use, 3-10 minutes Discussed medication and nicotine replacement for tobacco cessation Last Documented On 3 1:05PM ; [facility] Intervention and counseling on cessation of tobacco use, 3-10 minutes Discussed medication and nicotine replacement for tobacco cessation Last Documented On 3 1:02PM ; [facility] Intervention and counseling on cessation of tobacco use, 3-10 minutes Discussed medication and nicotine replacement for tobacco cessation Last Documented On 3 1:13PM ; [facility] Education and Decision Aids were provided during visit for: [facility] offered active and suppo rtive listening, validated emotions and feelings, and processed current stressors with being in the hospital. ~[facility] encouraged patient to utilize positive supports and coping skills. ~ Last Documented On 3 1:42PM ; [facility] Discussed nutritional needs teach healthy choices including fruits and vegetables Last Documented On 3 2:16PM ; [facility] Patient education about a pr oper diet 35.7 Last Documented On 3 2:16PM ; [facility] Discussed concerns about exe rcise : promote physical activity Last Documented On 3 2:16PM ; [facility] Not requesting contraception Last Documented On 3 2:16PM ; [facility] Discussed nutritional needs teach healthy choices including fruits and vegetables Last Documented On 3 2:25PM ; [facility] Patient education about a pr oper diet 37.4 Last Documented On 3 2:25PM ; [facility] Patient education about phys ical activity benefits Last Documented On 3 2:50PM ; [facility] Patient education about medi cation Last Documented On 3 2:50PM ; [facility] Patient education about ment al health Last Documented On 3 2:50PM ; [facility] Discussed concerns about exe rcise : promote physical activity Last Documented On 3 2:25PM ; [facility] encouraged patient to ut ilize positive supports and coping skills. ~[facility] encouraged patient to contact [facility] if they need any additional support or resources. ~ Last Documented On 3 10:03PM ; [facility] Discussed nutritional needs teach healthy choices including fruits and vegetables Last Documented On 3 10:23AM ; [facility] Patient education about a pr oper diet 36.7 Last Documented On 3 10:23AM ; [facility] Patient education about phys ical activity benefits Last Documented On 3 1:07PM ; [facility] Patient education about medi cation Last Documented On 3 1:07PM ; [facility] Patient education about ment al health Last Documented On 3 1:07PM ; [facility] Discussed concerns about exe rcise : promote physical activity Last Documented On 3 10:23AM ; [facility] introduced patient to [facility] integrated model of care. ~[facility] offered active and supportive listening, normalized emotions and feelings, and processed current stressors. ~Discussed healthy coping skills and positive supports in patient's life. ~Discussed healthy lifestyle behaviors. ~ Last Documented On 3 12:10AM ; [facility] Discussed nutritional needs 36 teach healthy choices including fruits and vegetables Last Documented On 3 12:20PM ; [facility] Patient education about a pr oper diet 36 Last Documented On 3 12:20PM ; [facility] Discussed concerns about exe rcise : promote physical activity Last Documented On 3 12:20PM ; [facility] Referred Patient to a Diabet es Self-Management Program Last Documented On 3 1:46PM ; [facility] Work Phone: 1(224) 737-916911-30-2023 Evaluation note Includes: Assessments for all patient encounters Findings Encounter Date Moderate recurrent major depression BH E stablished Patient with Janina Meghan SUPERVISOR INSPECTION-S 04/18/2023 Last Documented On 3 1:42PM ; [facility] [Z68.35 - Body mass index [B FL] 35.0-35.9, adult] assessment of body mass index Medical Established Patient with Latia Sparks PLANNING COORDINATOR 04/18/2023 Last Documented On 3 2:51PM ; [facility] Assessment of body mass index Medical Es tablished Patient with Latia Sparks PLANNING COORDINATOR 11/15/2022 Last Documented On 3 2:53PM ; [facility] Generalized anxiety disorder Establis hed Patient with Janina Meghan SUPERVISOR INSPECTION-S 11/08/2022 Last Documented On 3 10:03PM ; [facility] Hyperlipidemia Nurse Visit with Latia Hoffmanim [facility] 11/08/2022 Last Documented On 3 2:16PM ; [facility] Venipuncture was performed Nurse Visit with Kathia Sparks [facility] 11/08/2022 Last Documented On 3 2:16PM ; [facility] [Z68.36 - Body mass index [B FL] 36.0-36.9, adult] assessment of body mass index Medical Established Patient with Latia Sparks PLANNING COORDINATOR 08/02/2022 Last Documented On 3 1:36PM ; [facility] Intervention and counseling on cessation of tobacco use, 3-10 minutes Discussed medication and nicotine replacement for tobacco cessation Medical Established Patient with Latia Sparks PLANNING COORDINATOR 08/02/2022 Last Documented On 3 1:36PM ; [facility] Visit for: person consulting for explanation of examination or test findings Medical Established Patient with Latia Sparks PLANNING COORDINATOR 08/02/2022 Last Documented On 3 1:36PM ; [facility] Generalized anxiety disorder BH Establis hed Patient with Cinthia Farfan SUPERVISOR INSPECTION-S 07/23/2022 Last Documented On 3 12:17AM ; [facility] Intervention and counseling on cessation of tobacco use, 3-10 minutes Discussed medication and nicotine replacement for tobacco cessation Established Patient with Cinthia Farfan SUPERVISOR INSPECTION-S 07/23/2022 Last Documented On 3 12:17AM ; [facility] Moderate recurrent major depression E stablished Patient with Cinthia Farfan SUPERVISOR INSPECTION-S 07/23/2022 Last Documented On 3 12:17AM ; [facility] Nicotine dependence Established Patient with Cinthia Farfan SUPERVISOR INSPECTION-S 07/23/2022 Last Documented On 3 12:17AM ; [facility] Primary insomnia Established Patient with Deysi Farfan SUPERVISOR INSPECTION-S 07/23/2022 Last Documented On 3 12:17AM ; [facility] [Z68.36 - Body mass index [B FL] 36.0-36.9, adult] assessment of body mass index Medical New Patient with Latia Sparks PLANNING COORDINATOR 07/23/2022 Last Documented On 3 2:32PM ; [facility] Diabetes Risk Test Score was nine score 07/23/2022 Medical New Patient with Latia Hoffmanim PLANNING COORDINATOR 07/23/2022 Last Documented On 3 2:32PM ; [facility] Intervention and counseling on cessation of tobacco use, 3-10 minutes Discussed medication and nicotine replacement for tobacco cessation Medical New Patient with Latia Hoffmanim PLANNING COORDINATOR 07/23/2022 Last Documented On 3 2:32PM ; [facility] Screening for Hep C Medical New Patient with Nad yelitza Sparks PLANNING COORDINATOR 07/23/2022 Last Documented On 3 2:32PM ; [facility] Screening for HIV Medical New Patient with Hiren a Sparks PLANNING COORDINATOR 07/23/2022 Last Documented On 3 2:32PM ; [facility] Venipuncture was performed Medical New Patient w dmitry Hoffmanim PLANNING COORDINATOR 07/23/2022 Last Documented On 3 2:32PM ; [facility] Visit for routine adult H&P without abnormal findings Medical New Patient with Latia Hoffmanim PLANNING COORDINATOR 07/23/2022 Last Documented On 3 2:32PM ; [facility] Work Phone: 1(214) 612-833211-30-2023 Evaluation note Includes: Assessments for all patient encounters Findings Encounter Date Moderate recurrent major depression BH E stablished Patient with Janina Meghan SUPERVISOR INSPECTION-S 04/18/2023 Last Documented On 3 1:42PM ; [facility] [Z68.35 - Body mass index [B FL] 35.0-35.9, adult] assessment of body mass index Medical Established Patient with Latia Sparks PLANNING COORDINATOR 04/18/2023 Last Documented On 3 10:11PM ; [facility] Nicotine dependence Medical Established Patient with Latia Sparks PLANNING COORDINATOR 04/18/2023 Last Documented On 3 10:11PM ; [facility] 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 Medical Established Patient with Latia Sparks PLANNING COORDINATOR 04/18/2023 Last Documented On 3 10:11PM ; [facility] Assessment of body mass index Medical Es tablished Patient with Latia Sparks PLANNING COORDINATOR 11/15/2022 Last Documented On 3 2:53PM ; [facility] Generalized anxiety disorder BH Establis hed Patient with Janina Meghan SUPERVISOR INSPECTION-S 11/08/2022 Last Documented On 3 10:03PM ; [facility] Hyperlipidemia Nurse Visit with Latia Farooqahim PLANNING COORDINATOR 11/08/2022 Last Documented On 3 2:16PM ; [facility] Venipuncture was performed Nurse Visit with aKthia Hoffmanim PLANNING COORDINATOR 11/08/2022 Last Documented On 3 2:16PM ; [facility] [Z68.36 - Body mass index [B FL] 36.0-36.9, adult] assessment of body mass index Medical Established Patient with Latia Sparks PLANNING COORDINATOR 08/02/2022 Last Documented On 3 1:36PM ; [facility] Intervention and counseling on cessation of tobacco use, 3-10 minutes Discussed medication and nicotine replacement for tobacco cessation Medical Established Patient with Latia Sparks PLANNING COORDINATOR 08/02/2022 Last Documented On 3 1:36PM ; [facility] Visit for: person consulting for explanation of examination or test findings Medical Established Patient with Latia Hoffmanim PLANNING COORDINATOR 08/02/2022 Last Documented On 3 1:36PM ; [facility] Generalized anxiety disorder Establis hed Patient with Cinthia Stone SUPERVISOR INSPECTION-S 07/23/2022 Last Documented On 3 12:17AM ; [facility] Intervention and counseling on cessation of tobacco use, 3-10 minutes Discussed medication and nicotine replacement for tobacco cessation Established Patient with Cinthia Stone SUPERVISOR INSPECTION-S 07/23/2022 Last Documented On 3 12:17AM ; [facility] Moderate recurrent major depression E stablished Patient with Cinthia Stone SUPERVISOR INSPECTION-S 07/23/2022 Last Documented On 3 12:17AM ; [facility] Nicotine dependence Established Patient with Cinthai Stone SUPERVISOR INSPECTION-S 07/23/2022 Last Documented On 3 12:17AM ; [facility] Primary insomnia Established Patient with Deysi pugh Stone SUPERVISOR INSPECTION-S 07/23/2022 Last Documented On 3 12:17AM ; [facility] [Z68.36 - Body mass index [B FL] 36.0-36.9, adult] assessment of body mass index Medical New Patient with Latia Hoffmanim PLANNING COORDINATOR 07/23/2022 Last Documented On 3 2:32PM ; [facility] Diabetes Risk Test Score was nine score 07/23/2022 Medical New Patient with Latia Hoffmanim PLANNING COORDINATOR 07/23/2022 Last Documented On 3 2:32PM ; [facility] Intervention and counseling on cessation of tobacco use, 3-10 minutes Discussed medication and nicotine replacement for tobacco cessation Medical New Patient with Latia Hoffmanim PLANNING COORDINATOR 07/23/2022 Last Documented On 3 2:32PM ; [facility] Screening for Hep C Medical New Patient with Nad yelitza Hoffmanim PLANNING COORDINATOR 07/23/2022 Last Documented On 3 2:32PM ; [facility] Screening for HIV Medical New Patient with Hiren Sparks PLANNING COORDINATOR 07/23/2022 Last Documented On 3 2:32PM ; [facility] Venipuncture was performed Medical New Patient christiano Sparks PLANNING COORDINATOR 07/23/2022 Last Documented On 3 2:32PM ; [facility] Visit for routine adult H&P without abnormal findings Medical New Patient with Latia Sparks PLANNING COORDINATOR 07/23/2022 Last Documented On 3 2:32PM ; [facility] Work Phone: 1([phone]) 661-998411-30-2023 History general Narrative - Reported Includes: Medical History in patient's chart Description Last Updated Not planning to have a baby in the next 12 months 04/18/2023 Last Documented On 3 10:11PM ; [facility] No previous suicide attempt 07/24/2022 Last Documented On 3 12:17AM ; [facility] A recent examination by an ophthalmologi st 07/21/2022 07/23/2022 Last Documented On 3 2:32PM ; [facility] History of diabetes mellitus 07/23/2022 Last Documented On 3 2:32PM ; [facility] History of systemic hypertension 023 Last Documented On 3 2:32PM ; [facility] No previous hospitalizations 07/23/2022 Last Documented On 3 2:32PM ; [facility] Recent immunization for flu 07/23/2022 Last Documented On 3 2:32PM ; [facility] Work Phone: 1([phone]) 993-870911-30-2023 Progress note* Progress note Date Encounter Last Documented by 04/18/2023 BH Established Patient Last docu mented on 04/20/2023; 1:42 PM, Janina FRIED; [facility] Active Problems & Conditions - 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 [...] previous hospitalizations. A recent examination by an mash tub cooker 07/21/2022. Immunization History: Recent immunization for flu. [...] Health Reminders - Eye Exam satisfied 07/21/2022. [facility]11-30-2023 Progress note* Progress note Date Encounter Last Documented by 04/18/2023 Medical Established Patient Last documented on 04/21/2023; 10:11 PM, Latia Sparks PLANNING COORDINATOR; [facility] Active Problems & Conditions - E11.610 [...] previous hospitalizations. A recent examination by an mash tub cooker 07/21/2022. Immunization History: Recent immunization for flu. [...] dhaliwal), and gender identity Female. Allergies - [place] Reaction: Hives / Urticaria, Shock - Mellaril [...] BP-Sitting R138/80 mmHg BP Cuff SizeLarge Pulse Rate-Kowtgrt19 bpm Respiration Rate18 per min Temp-Oral97.8 F Feozgc46 in Tgxywe297 lbs Body Mass Index35.7 kg/m2 Body Surface Area2 m2 Oxygen Nozkkcwkzl47 % O2 DeviceNone (Room Air) DaM281 % Vital Signs: - Systolic blood pressure [...] + 0 pt : Not at all. 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 A recent examination by an mash tub cooker 07/21/2022. Immunization History: Recent immunization for flu. Diagnoses: Systemic hypertension. Diabetes mellitus Surgical: - Cholecystectomy - Hernia repair - Hysterectomy - Tubal ligation Allergies - [place] Reaction: Hives / Urticaria, Shock - Mellaril - [place] Reaction: Hives / Urticaria - Topamax Family History Maternal: Type 1 diabetes mellitus Plan StartCited- Acute sinusitis, unspecified Azithromycin 250 MG tablet 500 mg by mouth x 1 day 1, then 250 mg by mouth daily x 4 days., 5 days, 0 refills EndCited [facility]11-13-2023 Instructions Includes: Instructions for all patient encounters Instructions to patient Intervention and counseling on cessation of tobacco use, 3-10 minutes Discussed medication and nicotine replacement for tobacco cessation Last Documented On 3 1:05PM ; [facility] Intervention and counseling on cessation of tobacco use, 3-10 minutes Discussed medication and nicotine replacement for tobacco cessation Last Documented On 3 1:02PM ; [facility] Intervention and counseling on cessation of tobacco use, 3-10 minutes Discussed medication and nicotine replacement for tobacco cessation Last Documented On 3 1:13PM ; [facility] Education and Decision Aids were provided during visit for: Discussed nutritional needs teach healthy choices including fruits and vegetables Last Documented On 3 2:25PM ; [facility] Patient education about a pr oper diet 37.4 Last Documented On 3 2:25PM ; [facility] Patient education about phys ical activity benefits Last Documented On 3 2:50PM ; [facility] Patient education about medi cation Last Documented On 3 2:50PM ; [facility] Patient education about ment al health Last Documented On 3 2:50PM ; [facility] Discussed concerns about exe rcise : promote physical activity Last Documented On 3 2:25PM ; [facility] encouraged patient to ut ilize positive supports and coping skills. ~[facility] encouraged patient to contact [facility] if they need any additional support or resources. ~ Last Documented On 3 10:03PM ; [facility] Discussed nutritional needs teach healthy choices including fruits and vegetables Last Documented On 3 10:23AM ; [facility] Patient education about a pr oper diet 36.7 Last Documented On 3 10:23AM ; [facility] Patient education about phys ical activity benefits Last Documented On 3 1:07PM ; [facility] Patient education about medi cation Last Documented On 3 1:07PM ; [facility] Patient education about ment al health Last Documented On 3 1:07PM ; [facility] Discussed concerns about exe rcise : promote physical activity Last Documented On 3 10:23AM ; [facility] introduced patient to [facility] integrated model of care. ~P offered active and supportive listening, normalized emotions and feelings, and processed current stressors. ~Discussed healthy coping skills and positive supports in patient's life. ~Discussed healthy lifestyle behaviors. ~ Last Documented On 3 12:10AM ; [facility] Discussed nutritional needs 36 teach healthy choices including fruits and vegetables Last Documented On 3 12:20PM ; [facility] Patient education about a pr oper diet 36 Last Documented On 3 12:20PM ; [facility] Discussed concerns about exe rcise : promote physical activity Last Documented On 3 12:20PM ; [facility] Referred Patient to a Diabet es Self-Management Program Last Documented On 3 1:46PM ; [facility] Work Phone: 1(999) 771-173506-29-2023 Evaluation note Includes: Assessments for all patient encounters Findings Encounter Date Assessment of body mass index Medical Es tablished Patient with Latia Sparks [facility] 11/15/2022 Last Documented On 3 2:53PM ; [facility] Generalized anxiety disorder BH Establis hed Patient with Janina Christianson SUPERVISOR INSPECTION-S 11/08/2022 Last Documented On 3 10:03PM ; [facility] Hyperlipidemia Nurse Visit with Latia Hoffmanim [facility] 11/08/2022 Last Documented On 3 2:16PM ; [facility] Venipuncture was performed Nurse Visit with Kathia Sparks [facility] 11/08/2022 Last Documented On 3 2:16PM ; [facility] [Z68.36 - Body mass index [B FL] 36.0-36.9, adult] assessment of body mass index Medical Established Patient with Latia Hoffmanim [facility] 08/02/2022 Last Documented On 3 1:36PM ; [facility] Intervention and counseling on cessation of tobacco use, 3-10 minutes Discussed medication and nicotine replacement for tobacco cessation Medical Established Patient with Latia Sparks PLANNING COORDINATOR 08/02/2022 Last Documented On 3 1:36PM ; [facility] Visit for: person consulting for explanation of examination or test findings Medical Established Patient with Latia Sparks PLANNING COORDINATOR 08/02/2022 Last Documented On 3 1:36PM ; [facility] Generalized anxiety disorder Establis hed Patient with Cinthia Stone SUPERVISOR INSPECTION-S 07/23/2022 Last Documented On 3 12:17AM ; [facility] Intervention and counseling on cessation of tobacco use, 3-10 minutes Discussed medication and nicotine replacement for tobacco cessation Established Patient with Cinthia Stone SUPERVISOR INSPECTION-S 07/23/2022 Last Documented On 3 12:17AM ; [facility] Moderate recurrent major depression E stablished Patient with Cinthia Stone SUPERVISOR INSPECTION-S 07/23/2022 Last Documented On 3 12:17AM ; [facility] Nicotine dependence Established Patient with Cinthia Stone SUPERVISOR INSPECTION-S 07/23/2022 Last Documented On 3 12:17AM ; [facility] Primary insomnia Established Patient with Deysi pugh Stone SUPERVISOR INSPECTION-S 07/23/2022 Last Documented On 3 12:17AM ; [facility] [Z68.36 - Body mass index [B FL] 36.0-36.9, adult] assessment of body mass index Medical New Patient with Latia Sparks PLANNING COORDINATOR 07/23/2022 Last Documented On 3 2:32PM ; [facility] Diabetes Risk Test Score was nine score 07/23/2022 Medical New Patient with Latia Sparks PLANNING COORDINATOR 07/23/2022 Last Documented On 3 2:32PM ; [facility] Intervention and counseling on cessation of tobacco use, 3-10 minutes Discussed medication and nicotine replacement for tobacco cessation Medical New Patient with Latia Sparks PLANNING COORDINATOR 07/23/2022 Last Documented On 3 2:32PM ; [facility] Screening for Hep C Medical New Patient with Nad yelitza Sparks PLANNING COORDINATOR 07/23/2022 Last Documented On 3 2:32PM ; [facility] Screening for HIV Medical New Patient with Hiren Sparks PLANNING COORDINATOR 07/23/2022 Last Documented On 3 2:32PM ; [facility] Venipuncture was performed Medical New Patient w dmitry Sparks PLANNING COORDINATOR 07/23/2022 Last Documented On 3 2:32PM ; [facility] Visit for routine adult H&P without abnormal findings Medical New Patient with Latia Sparks PLANNING COORDINATOR 07/23/2022 Last Documented On 3 2:32PM ; [facility] Work Phone: 1([phone]) 531-486206-29-2023 Progress note* Progress note Date Encounter Last Documented by 11/15/2022 Medical Established Patient Last documented on 11/15/2022; 2:53 PM, Latia Sparks [facility]; [facility] Active Problems & Conditions - E11.610 [...] The patient is currently living at a intermediate that does not follow any diabetic or [...] previous hospitalizations. A recent examination by an mash tub cooker 07/21/2022. Immunization History: Recent immunization for flu. [...] 11/15/2022 02:17 pm BP-Sitting R143/78 mmHg Pulse Rate-Wdequxw82 bpm Mmxbmx15 in Zjvlon713 lbs Body Mass Index37.4 kg/m2 Body Surface Area2 m2 Oxygen Oakkojnkin85 % - Vitals taken 11/15/2022 02:24 pm BP-Quoxekq556/82 mmHg General Appearance: - Awake. - Alert. [...] and diastolic 80-89 mmHg diastolic 80-89 mmHg. [facility]06-24-2023 Instructions Includes: Instructions for all patient encounters Instructions to patient Intervention and counseling on cessation of tobacco use, 3-10 minutes Discussed medication and nicotine replacement for tobacco cessation Last Documented On 3 1:05PM ; [facility] Intervention and counseling on cessation of tobacco use, 3-10 minutes Discussed medication and nicotine replacement for tobacco cessation Last Documented On 3 1:02PM ; [facility] Intervention and counseling on cessation of tobacco use, 3-10 minutes Discussed medication and nicotine replacement for tobacco cessation Last Documented On 3 1:13PM ; [facility] Education and Decision Aids were provided during visit for: [facility] encouraged patient to ut ilize positive supports and coping skills. ~[facility] encouraged patient to contact [facility] if they need any additional support or resources. ~ Last Documented On 3 10:03PM ; [facility] Discussed nutritional needs teach healthy choices including fruits and vegetables Last Documented On 3 10:23AM ; [facility] Patient education about a pr oper diet 36.7 Last Documented On 3 10:23AM ; [facility] Patient education about phys ical activity benefits Last Documented On 3 1:07PM ; [facility] Patient education about medi cation Last Documented On 3 1:07PM ; [facility] Patient education about ment al health Last Documented On 3 1:07PM ; [facility] Discussed concerns about exe rcise : promote physical activity Last Documented On 3 10:23AM ; [facility] introduced patient to [facility] integrated model of care. ~[facility] offered active and supportive listening, normalized emotions and feelings, and processed current stressors. ~Discussed healthy coping skills and positive supports in patient's life. ~Discussed healthy lifestyle behaviors. ~ Last Documented On 3 12:10AM ; [facility] Discussed nutritional needs 36 teach healthy choices including fruits and vegetables Last Documented On 3 12:20PM ; [facility] Patient education about a pr oper diet 36 Last Documented On 3 12:20PM ; [facility] Discussed concerns about exe rcise : promote physical activity Last Documented On 3 12:20PM ; [facility] Referred Patient to a Diabet es Self-Management Program Last Documented On 3 1:46PM ; [facility] Work Phone: [phone]) 782-351906-22-2023 Evaluation note Includes: Assessments for all patient encounters Findings Encounter Date Hyperlipidemia Nurse Visit with Latia Sparks [facility] 11/08/2022 Last Documented On 3 2:16PM ; [facility] Venipuncture was performed Nurse Visit with Kathia Sparks [facility] 11/08/2022 Last Documented On 3 2:16PM ; [facility] [Z68.36 - Body mass index [B FL] 36.0-36.9, adult] assessment of body mass index Medical Established Patient with Latia Sparks [facility] 08/02/2022 Last Documented On 3 1:36PM ; [facility] Intervention and counseling on cessation of tobacco use, 3-10 minutes Discussed medication and nicotine replacement for tobacco cessation Medical Established Patient with Latia Sparks [facility] 08/02/2022 Last Documented On 3 1:36PM ; [facility] Visit for: person consulting for explanation of examination or test findings Medical Established Patient with Latia Sparks [facility] 08/02/2022 Last Documented On 3 1:36PM ; [facility] Generalized anxiety disorder BH Establis hed Patient with Cinthia Stone [employer]PERVIS[employer] 07/23/2022 Last Documented On 3 12:17AM ; [facility] Intervention and counseling on cessation of tobacco use, 3-10 minutes Discussed medication and nicotine replacement for tobacco cessation Established Patient with Cinthia Stone [employer]PERVIS[employer] 07/23/2022 Last Documented On 3 12:17AM ; [facility] Moderate recurrent major depression E stablished Patient with Cinthia Stone [employer]PER[employer] 07/23/2022 Last Documented On 3 12:17AM ; [facility] Nicotine dependence Established Patient with Cinthia Stone [employer]PER[employer] 07/23/2022 Last Documented On 3 12:17AM ; [facility] Primary insomnia Established Patient with Deysi pugh Stone SUPERVIS[employer] INS[employer] 07/23/2022 Last Documented On 3 12:17AM ; [facility] [Z68.36 - Body mass index [B FL] 36.0-36.9, adult] assessment of body mass index Medical New Patient with Latia Hoffmanim PLANNING COORDINATOR 07/23/2022 Last Documented On 3 2:32PM ; [facility] Diabetes Risk Test Score was nine score 07/23/2022 Medical New Patient with Latia Sparks PLANNING COORDINATOR 07/23/2022 Last Documented On 3 2:32PM ; [facility] Intervention and counseling on cessation of tobacco use, 3-10 minutes Discussed medication and nicotine replacement for tobacco cessation Medical New Patient with Latia Sparks PLANNING COORDINATOR 07/23/2022 Last Documented On 3 2:32PM ; [facility] Screening for Hep C Medical New Patient with Nad yelitza Farooqahim PLANNING COORDINATOR 07/23/2022 Last Documented On 3 2:32PM ; [facility] Screening for HIV Medical New Patient with Hiren a Sparks [facility] 07/23/2022 Last Documented On 3 2:32PM ; [facility] Venipuncture was performed Medical New Patient w dmitry Hoffmanim [facility] 07/23/2022 Last Documented On 3 2:32PM ; [facility] Visit for routine adult H&P without abnormal findings Medical New Patient with Latianova Hoffmanim PLANNING COORDINATOR 07/23/2022 Last Documented On 3 2:32PM ; [facility] Work Phone: 1(872) 223-615006-22-2023 Evaluation note Includes: Assessments for all patient encounters Findings Encounter Date Generalized anxiety disorder BH Establis hed Patient with Janinasam Christianson SUPERVIS[employer] 11/08/2022 Last Documented On 3 10:03PM ; [facility] Hyperlipidemia Nurse Visit with Latia Hoffmanim PLANNING COORDINATOR 11/08/2022 Last Documented On 3 2:16PM ; [facility] Venipuncture was performed Nurse Visit with Kathia Hoffmanim [facility] 11/08/2022 Last Documented On 3 2:16PM ; [facility] [Z68.36 - Body mass index [B FL] 36.0-36.9, adult] assessment of body mass index Medical Established Patient with Latia Sparks PLANNING COORDINATOR 08/02/2022 Last Documented On 3 1:36PM ; [facility] Intervention and counseling on cessation of tobacco use, 3-10 minutes Discussed medication and nicotine replacement for tobacco cessation Medical Established Patient with Latia Sparks PLANNING COORDINATOR 08/02/2022 Last Documented On 3 1:36PM ; [facility] Visit for: person consulting for explanation of examination or test findings Medical Established Patient with Latia Sparks PLANNING COORDINATOR 08/02/2022 Last Documented On 3 1:36PM ; [facility] Generalized anxiety disorder Establis hed Patient with Cinthia Stone SUPERVISOR INSPECTION[employer]S 07/23/2022 Last Documented On 3 12:17AM ; [facility] Intervention and counseling on cessation of tobacco use, 3-10 minutes Discussed medication and nicotine replacement for tobacco cessation Established Patient with Cinthia Stone SUPERVISOR INSPECTION-S 07/23/2022 Last Documented On 3 12:17AM ; [facility] Moderate recurrent major depression E stablished Patient with Cinthia Stone SUPERVISOR INSPECTION[employer]S 07/23/2022 Last Documented On 3 12:17AM ; [facility] Nicotine dependence Established Patient with Cinthia Stone SUPERVISOR INSPECTION[employer]S 07/23/2022 Last Documented On 3 12:17AM ; [facility] Primary insomnia Established Patient with Deysi pugh Stone SUPERVISOR INSPECTION[employer]S 07/23/2022 Last Documented On 3 12:17AM ; [facility] [Z68.36 - Body mass index [B FL] 36.0-36.9, adult] assessment of body mass index Medical New Patient with Latia Sparks PLANNING COORDINATOR 07/23/2022 Last Documented On 3 2:32PM ; [facility] Diabetes Risk Test Score was nine score 07/23/2022 Medical New Patient with Latia Sparks PLANNING COORDINATOR 07/23/2022 Last Documented On 3 2:32PM ; [facility] Intervention and counseling on cessation of tobacco use, 3-10 minutes Discussed medication and nicotine replacement for tobacco cessation Medical New Patient with Latia Sparks PLANNING COORDINATOR 07/23/2022 Last Documented On 3 2:32PM ; [facility] Screening for Hep C Medical New Patient with Nad yelitza Sparks PLANNING COORDINATOR 07/23/2022 Last Documented On 3 2:32PM ; [facility] Screening for HIV Medical New Patient with Hiren Sparks PLANNING COORDINATOR 07/23/2022 Last Documented On 3 2:32PM ; [facility] Venipuncture was performed Medical New Patient w dmitry Sparks PLANNING COORDINATOR 07/23/2022 Last Documented On 3 2:32PM ; [facility] Visit for routine adult H&P without abnormal findings Medical New Patient with Latia Sparks PLANNING COORDINATOR 07/23/2022 Last Documented On 3 2:32PM ; [facility] Work Phone: 1(339) 640-768706-22-2023 Progress note* Progress note Date Encounter Last Documented by 11/08/2022 Nurse Visit Last documented on 11/08/2022; 2:16 PM, Latia Sparks [facility]; [facility] Active Problems & Conditions - E11.610 [...] previous hospitalizations. A recent examination by an mash tub cooker 07/21/2022. Immunization History: Recent immunization for flu. 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 [...] previous hospitalizations. A recent examination by an mash tub cooker 07/21/2022. Immunization History: Recent immunization for flu. [...] - Collaborated with patient and provider: Counseling/Education [facility] encouraged patient to utilize positive supports and coping skills. P encouraged patient to contact [facility] if they need any additional support or resources. . Plan [facility] to follow up with patient at [...] + 0 pt : Not at all. [facility]06-22-2023 Instructions Includes: Instructions for all patient encounters Instructions to patient Intervention and counseling on cessation of tobacco use, 3-10 minutes Discussed medication and nicotine replacement for tobacco cessation Last Documented On 3 1:05PM ; [facility] Intervention and counseling on cessation of tobacco use, 3-10 minutes Discussed medication and nicotine replacement for tobacco cessation Last Documented On 3 1:02PM ; [facility] Intervention and counseling on cessation of tobacco use, 3-10 minutes Discussed medication and nicotine replacement for tobacco cessation Last Documented On 3 1:13PM ; [facility] Education and Decision Aids were provided during visit for: Discussed nutritional needs teach healthy choices including fruits and vegetables Last Documented On 3 10:23AM ; [facility] Patient education about a pr oper diet 36.7 Last Documented On 3 10:23AM ; [facility] Patient education about phys ical activity benefits Last Documented On 3 1:07PM ; [facility] Patient education about medi cation Last Documented On 3 1:07PM ; [facility] Patient education about ment al health Last Documented On 3 1:07PM ; [facility] Discussed concerns about exe rcise : promote physical activity Last Documented On 3 10:23AM ; [facility] introduced patient to [facility] integrated model of care. ~P offered active and supportive listening, normalized emotions and feelings, and processed current stressors. ~Discussed healthy coping skills and positive supports in patient's life. ~Discussed healthy lifestyle behaviors. ~ Last Documented On 3 12:10AM ; [facility] Discussed nutritional needs 36 teach healthy choices including fruits and vegetables Last Documented On 3 12:20PM ; [facility] Patient education about a pr oper diet 36 Last Documented On 3 12:20PM ; [facility] Discussed concerns about exe rcise : promote physical activity Last Documented On 3 12:20PM ; [facility] Referred Patient to a Diabet es Self-Management Program Last Documented On 3 1:46PM ; [facility] Work Phone: 1([phone]) 283-753104-11-2023 NoteCONSULTATION CONSULTATION DATE: 08/28/2022 TO: Geraldo Prado [...] the lower extremities MEDICATION: Current medication includes Curran 5 mg b.i.d. p.r.n. She reports that she has not been taking her Xanax. She reports the Curran does seem to increase in her quality [...] our patients to inform us about any udyc-apb-rvksmog medications or herbal remedies/nutritional supplements/alternative remedies. 2. [...] treatment options with their primary care provider.[id number] Progress note* Progress note Date Encounter Last Documented by 08/02/2022 Medical Established Patient Last documented on 08/02/2022; 1:36 PM, Latia MAYORGA; [facility] Active Problems & Conditions - E11.610 [...] results, Pt needs tresiba prescribed to the [facility] pharmacy just for today. Referred [...] has been provided. The patient lives a intermediate, where food is cooking Current Medication - [...] previous hospitalizations. A recent examination by an mash tub cooker 07/21/2022. Immunization History: Recent immunization for flu. [...] BP-Sitting R138/82 mmHg BP Cuff SizeLarge Pulse Rate-Vsavres68 bpm Pulse RhythmRegular Respiration Rate18 per min Temp-Ylxzlbxp65.5 F Dzyvev41 in Shzrma362 lbs Body Mass Index36.7 kg/m2 Body Surface Area2 m2 Oxygen Wqzmqmnesn07 % O2 DeviceNone (Room Air) VjA525 % General Appearance: - Awake. - Alert. [...] and diastolic 80-89 mmHg diastolic 80-89 mmHg. [facility]03-16-2023 Instructions Includes: Instructions for all patient encounters Instructions to patient Intervention and counseling on cessation of tobacco use, 3-10 minutes Discussed medication and nicotine replacement for tobacco cessation Last Documented On 3 1:05PM ; [facility] Intervention and counseling on cessation of tobacco use, 3-10 minutes Discussed medication and nicotine replacement for tobacco cessation Last Documented On 3 1:02PM ; [facility] Intervention and counseling on cessation of tobacco use, 3-10 minutes Discussed medication and nicotine replacement for tobacco cessation Last Documented On 3 1:13PM ; [facility] Education and Decision Aids were provided during visit for: Discussed nutritional needs teach healthy choices including fruits and vegetables Last Documented On 3 10:23AM ; [facility] Patient education about a pr oper diet 36.7 Last Documented On 3 10:23AM ; [facility] Patient education about phys ical activity benefits Last Documented On 3 1:07PM ; [facility] Patient education about medi cation Last Documented On 3 1:07PM ; [facility] Patient education about ment al health Last Documented On 3 1:07PM ; [facility] Discussed concerns about exe rcise : promote physical activity Last Documented On 3 10:23AM ; [facility] introduced patient to [facility] integrated model of care. ~P offered active and supportive listening, normalized emotions and feelings, and processed current stressors. ~Discussed healthy coping skills and positive supports in patient's life. ~Discussed healthy lifestyle behaviors. ~ Last Documented On 3 12:10AM ; [facility] Discussed nutritional needs 36 teach healthy choices including fruits and vegetables Last Documented On 3 12:20PM ; [facility] Patient education about a pr oper diet 36 Last Documented On 3 12:20PM ; [facility] Discussed concerns about exe rcise : promote physical activity Last Documented On 3 12:20PM ; [facility] Referred Patient to a Diabet es Self-Management Program Last Documented On 3 1:46PM ; [facility] Work Phone: 1(280) 792-215103-16-2023 Instructions Includes: Instructions for all patient encounters Instructions to patient Intervention and counseling on cessation of tobacco use, 3-10 minutes Discussed medication and nicotine replacement for tobacco cessation Last Documented On 3 1:05PM ; [facility] Intervention and counseling on cessation of tobacco use, 3-10 minutes Discussed medication and nicotine replacement for tobacco cessation Last Documented On 3 1:02PM ; [facility] Intervention and counseling on cessation of tobacco use, 3-10 minutes Discussed medication and nicotine replacement for tobacco cessation Last Documented On 3 1:13PM ; [facility] Education and Decision Aids were provided during visit for: Discussed nutritional needs teach healthy choices including fruits and vegetables Last Documented On 3 10:23AM ; [facility] Patient education about a pr oper diet 36.7 Last Documented On 3 10:23AM ; [facility] Patient education about phys ical activity benefits Last Documented On 3 1:07PM ; [facility] Patient education about medi cation Last Documented On 3 1:07PM ; [facility] Patient education about ment al health Last Documented On 3 1:07PM ; [facility] Discussed concerns about exe rcise : promote physical activity Last Documented On 3 10:23AM ; [facility] introduced patient to [facility] integrated model of care. ~P offered active and supportive listening, normalized emotions and feelings, and processed current stressors. ~Discussed healthy coping skills and positive supports in patient's life. ~Discussed healthy lifestyle behaviors. ~ Last Documented On 3 12:10AM ; [facility] Discussed nutritional needs 36 teach healthy choices including fruits and vegetables Last Documented On 3 12:20PM ; [facility] Patient education about a pr oper diet 36 Last Documented On 3 12:20PM ; [facility] Discussed concerns about exe rcise : promote physical activity Last Documented On 3 12:20PM ; [facility] Referred Patient to a Diabet es Self-Management Program Last Documented On 3 1:46PM ; [facility] Work Phone: 1([phone]) 394-497703-07-2023 History general Narrative - Reported Includes: Medical History in patient's chart Description Last Updated No previous suicide attempt 07/24/2022 Last Documented On 3 12:17AM ; [facility] A recent examination by an ophthalmologi st 07/21/2022 07/23/2022 Last Documented On 3 2:32PM ; [facility] History of diabetes mellitus 07/23/2022 Last Documented On 3 2:32PM ; [facility] History of systemic hypertension 023 Last Documented On 3 2:32PM ; [facility] No previous hospitalizations 07/23/2022 Last Documented On 3 2:32PM ; [facility] Recent immunization for flu 07/23/2022 Last Documented On 3 2:32PM ; [facility] Work Phone: [phone]) 675-219303-07-2023 History general Narrative - Reported Includes: Medical History in patient's chart Description Last Updated No previous suicide attempt 07/24/2022 Last Documented On 3 12:17AM ; [facility] A recent examination by an ophthalmologi st 07/21/2022 07/23/2022 Last Documented On 3 2:32PM ; [facility] History of diabetes mellitus 07/23/2022 Last Documented On 3 2:32PM ; [facility] History of systemic hypertension 023 Last Documented On 3 2:32PM ; [facility] No previous hospitalizations 07/23/2022 Last Documented On 3 2:32PM ; [facility] Recent immunization for flu 07/23/2022 Last Documented On 3 2:32PM ; [facility] Work Phone: [phone]) [phone] History general Narrative - Reported Includes: Medical History in patient's chart Description Last Updated No previous suicide attempt 07/24/2022 Last Documented On 3 12:17AM ; [facility] A recent examination by an ophthalmologi st 07/21/2022 07/23/2022 Last Documented On 3 2:32PM ; [facility] History of diabetes mellitus 07/23/2022 Last Documented On 3 2:32PM ; [facility] History of systemic hypertension 023 Last Documented On 3 2:32PM ; [facility] No previous hospitalizations 07/23/2022 Last Documented On 3 2:32PM ; [facility] Recent immunization for flu 07/23/2022 Last Documented On 3 2:32PM ; [facility] Work Phone: [phone]) [phone] History general Narrative - Reported Includes: Medical History in patient's chart Description Last Updated No previous suicide attempt 07/24/2022 Last Documented On 3 12:17AM ; [facility] A recent examination by an ophthalmologi st 07/21/2022 07/23/2022 Last Documented On 3 2:32PM ; [facility] History of diabetes mellitus 07/23/2022 Last Documented On 3 2:32PM ; [facility] History of systemic hypertension 023 Last Documented On 3 2:32PM ; [facility] No previous hospitalizations 07/23/2022 Last Documented On 3 2:32PM ; [facility] Recent immunization for flu 07/23/2022 Last Documented On 3 2:32PM ; [facility] Work Phone: [phone]) [phone] History general Narrative - Reported Includes: Medical History in patient's chart Description Last Updated No previous suicide attempt 07/24/2022 Last Documented On 3 12:17AM ; [facility] A recent examination by an ophthalmologi st 07/21/2022 07/23/2022 Last Documented On 3 2:32PM ; [facility] History of diabetes mellitus 07/23/2022 Last Documented On 3 2:32PM ; [facility] History of systemic hypertension 023 Last Documented On 3 2:32PM ; [facility] No previous hospitalizations 07/23/2022 Last Documented On 3 2:32PM ; [facility] Recent immunization for flu 07/23/2022 Last Documented On 3 2:32PM ; [facility] Work Phone: 1([phone]) 281-761003-07-2023 History general Narrative - Reported Includes: Medical History in patient's chart Description Last Updated No previous suicide attempt 07/24/2022 Last Documented On 3 12:17AM ; [facility] A recent examination by an ophthalmologi st 07/21/2022 07/23/2022 Last Documented On 3 2:32PM ; [facility] History of diabetes mellitus 07/23/2022 Last Documented On 3 2:32PM ; [facility] History of systemic hypertension 023 Last Documented On 3 2:32PM ; [facility] No previous hospitalizations 07/23/2022 Last Documented On 3 2:32PM ; [facility] Recent immunization for flu 07/23/2022 Last Documented On 3 2:32PM ; [facility] Work Phone: [phone]) 924-280203-06-2023 Evaluation note Includes: Assessments for all patient encounters Findings Encounter Date Generalized anxiety disorder Established Shirley ent with Cinthia Stone SUPERVISOR INSPECTION 07/23/2022 Last Documented On 3 1:10PM ; [facility] Intervention and counseling on cessation of tobacco use, 3-10 minutes Discussed medication and nicotine replacement for tobacco cessation Established Patient with Cinthia Stone SUPERVISOR INSPECTION 07/23/2022 Last Documented On 3 1:10PM ; [facility] Moderate recurrent major depression E stablished Patient with Cinthia Stone SUPERVISOR INSPECTION 07/23/2022 Last Documented On 3 1:10PM ; [facility] Nicotine dependence BH Established Patient with Cinthia Stone SUPERVISOR INSPECTION 07/23/2022 Last Documented On 3 1:10PM ; [facility] Primary insomnia BH Established Patient with Deysi Farfan SUPERVISOR INSPECTION 07/23/2022 Last Documented On 3 1:10PM ; [facility] [Z68.36 - Body mass index [B FL] 36.0-36.9, adult] assessment of body mass index Medical New Patient with Latia Sparks PLANNING COORDINATOR 07/23/2022 Last Documented On 3 2:32PM ; [facility] Diabetes Risk Test Score was nine score 07/23/2022 Medical New Patient with Latia Sparks PLANNING COORDINATOR 07/23/2022 Last Documented On 3 2:32PM ; [facility] Intervention and counseling on cessation of tobacco use, 3-10 minutes Discussed medication and nicotine replacement for tobacco cessation Medical New Patient with Latia Sparks PLANNING COORDINATOR 07/23/2022 Last Documented On 3 2:32PM ; [facility] Screening for Hep C Medical New Patient with Nad yelitza Bridger PLANNING COORDINATOR 07/23/2022 Last Documented On 3 2:32PM ; [facility] Screening for HIV Medical New Patient with Hiren nova Sparks PLANNING COORDINATOR 07/23/2022 Last Documented On 3 2:32PM ; [facility] Venipuncture was performed Medical New Patient w dmitry Sparks PLANNING COORDINATOR 07/23/2022 Last Documented On 3 2:32PM ; [facility] Visit for routine adult H&P without abnormal findings Medical New Patient with Latia Sparks PLANNING COORDINATOR 07/23/2022 Last Documented On 3 2:32PM ; [facility] Work Phone: 1(112) 980-357803-06-2023 Evaluation note Includes: Assessments for all patient encounters Findings Encounter Date Generalized anxiety disorder Established Shirley ent with Cinthia Farfan SUPERVISOR INSPECTION 07/23/2022 Last Documented On 3 12:17AM ; [facility] Intervention and counseling on cessation of tobacco use, 3-10 minutes Discussed medication and nicotine replacement for tobacco cessation BH Established Patient with Cinthia Stone SUPERVISOR INSPECTION 07/23/2022 Last Documented On 3 12:17AM ; [facility] Moderate recurrent major depression E stablished Patient with Cinthia Farfan SUPERVISOR INSPECTION 07/23/2022 Last Documented On 3 12:17AM ; [facility] Nicotine dependence Established Patient with Cinthia Farfan SUPERVISOR INSPECTION 07/23/2022 Last Documented On 3 12:17AM ; [facility] Primary insomnia Established Patient with Deysi Farfan SUPERVISOR INSPECTION 07/23/2022 Last Documented On 3 12:17AM ; [facility] [Z68.36 - Body mass index [B FL] 36.0-36.9, adult] assessment of body mass index Medical New Patient with Latia Sparks PLANNING COORDINATOR 07/23/2022 Last Documented On 3 2:32PM ; [facility] Diabetes Risk Test Score was nine score 07/23/2022 Medical New Patient with Latia Sparks PLANNING COORDINATOR 07/23/2022 Last Documented On 3 2:32PM ; [facility] Intervention and counseling on cessation of tobacco use, 3-10 minutes Discussed medication and nicotine replacement for tobacco cessation Medical New Patient with Latia Hoffmanim PLANNING COORDINATOR 07/23/2022 Last Documented On 3 2:32PM ; [facility] Screening for Hep C Medical New Patient with Nad yelitza Hoffmanim PLANNING COORDINATOR 07/23/2022 Last Documented On 3 2:32PM ; [facility] Screening for HIV Medical New Patient with Hiren a Sparks PLANNING COORDINATOR 07/23/2022 Last Documented On 3 2:32PM ; [facility] Venipuncture was performed Medical New Patient w dmitry Sparks PLANNING COORDINATOR 07/23/2022 Last Documented On 3 2:32PM ; [facility] Visit for routine adult H&P without abnormal findings Medical New Patient with Latia Hoffmanim PLANNING COORDINATOR 07/23/2022 Last Documented On 3 2:32PM ; [facility] Work Phone: 1([phone]) 560-477503-06-2023 Progress note* Progress note Date Encounter Last Documented by 07/23/2022 Medical New Patient Last sydni elkins on 07/23/2022; 2:32 PM, Latia Sparks [facility]; [facility] Active Problems & Conditions - E11.610 [...] A 72 year old female presented to [facility] care. Resides at [facility]. Medical history is significant for diabetes mellitus [...] previous hospitalizations. A recent examination by an mash tub cooker 07/21/2022. Immunization History: Recent immunization for flu. [...] BP-Sitting R168/92 mmHg BP Cuff SizeLarge Pulse Rate-Tnpnlbf931 bpm Pulse RhythmRegular Respiration Rate21 per min Temp-Oral98.3 F Niebjl23 in Gabdaq313 lbs Body Mass Index36 kg/m2 Body Surface Area2 m2 Oxygen Redhozqaiu50 % O2 DeviceNone (Room Air) FoN475 % - Vitals taken 07/23/2022 01:38 pm [...] 60 years or older (3 points) [Pre-DM]. [facility]03-06-2023 Progress note* Progress note Date Encounter Last Documented by 07/23/2022 Established Patient Last docu mented on 07/24/2022; 12:17 AM, Cinthia PARRISH; [facility] Active Problems & Conditions - E11.610 [...] compliant and implementing healthy coping skills Subjective [facility] reviewed PHQ-9 score of 9 and [...] to stop smoking offered Quit Line information [facility] introduced patient to [facility] integrated model of care. [facility] offered active and supportive listening, normalized emotions and feelings, and processed current stressors. Discussed healthy coping skills and positive supports in patient's life. Discussed healthy lifestyle behaviors. . Plan - No Safety Measures Continue to take medications as directed and patient verbalized understanding. Utilize healthy coping skills and positive supports in patient's life. Implement healthy lifestyle coping skills like discussed. [facility] to follow-up with patient at next [...] clothing: No, unable to get needed child and family services specialist: No, unable to get needed phone: No, [...] + 0 pt : Not at all. [facility]03-06-2023 Progress note* Progress note Date Encounter Last Documented by 07/23/2022 Established Patient Last docu mented on 07/24/2022; 12:17 AM, Cinthia FRIED; [facility] Active Problems & Conditions - E11.610 [...] Quit Line information P introduced patient to [facility] integrated model of care. [facility] offered [...] clothing: No, unable to get needed child and family services specialist: No, unable to get needed phone: No, [...] + 0 pt : Not at all. [facility]03-06-2023 Reason for referral (narrative)* Date Encounter Description Provider Reason for Referral 07/23/22 Established Patient Cinthia PARRISH Referral To Mental Health Team [facility] Work Phone: 1(576) 965-742303-06-2023 Reason for referral (narrative)* Date Encounter Description Provider Reason for Referral 07/23/22 Established Patient Cinthia WOODSONW- S Referral To Mental Health Team [facility] Work Phone: 1(422) 392-355903-06-2023 Instructions Includes: Instructions for all patient encounters Instructions to patient Intervention and counseling on cessation of tobacco use, 3-10 minutes Discussed medication and nicotine replacement for tobacco cessation Last Documented On 3 1:02PM ; [facility] Intervention and counseling on cessation of tobacco use, 3-10 minutes Discussed medication and nicotine replacement for tobacco cessation Last Documented On 3 1:13PM ; [facility] Education and Decision Aids were provided during visit for: Discussed nutritional needs 36 teach healthy choices including fruits and vegetables Last Documented On 3 12:20PM ; [facility] Patient education about a pr oper diet 36 Last Documented On 3 12:20PM ; [facility] Discussed concerns about exe rcise : promote physical activity Last Documented On 3 12:20PM ; [facility] Referred Patient to a Diabet es Self-Management Program Last Documented On 3 1:46PM ; [facility] Work Phone: [phone]) 386-541903-06-2023 Instructions Includes: Instructions for all patient encounters Instructions to patient Intervention and counseling on cessation of tobacco use, 3-10 minutes Discussed medication and nicotine replacement for tobacco cessation Last Documented On 3 1:02PM ; [facility] Intervention and counseling on cessation of tobacco use, 3-10 minutes Discussed medication and nicotine replacement for tobacco cessation Last Documented On 3 1:13PM ; [facility] Education and Decision Aids were provided during visit for: [facility] introduced patient to [facility] integrated model of care. ~[facility] offered active and supportive listening, normalized emotions and feelings, and processed current stressors. ~Discussed healthy coping skills and positive supports in patient's life. ~Discussed healthy lifestyle behaviors. ~ Last Documented On 3 12:10AM ; [facility] Discussed nutritional needs 36 teach healthy choices including fruits and vegetables Last Documented On 3 12:20PM ; [facility] Patient education about a pr oper diet 36 Last Documented On 3 12:20PM ; [facility] Discussed concerns about exe rcise : promote physical activity Last Documented On 3 12:20PM ; [facility] Referred Patient to a Diabet es Self-Management Program Last Documented On 3 1:46PM ; [facility] Work Phone: 1([phone]) 461-917503-04-2023 History general Narrative - Reported Includes: Medical History in patient's chart Description Last Updated A recent examination by an ophthalmologi st 07/21/2022 07/23/2022 Last Documented On 3 2:32PM ; [facility] History of diabetes mellitus 07/23/2022 Last Documented On 3 2:32PM ; [facility] History of systemic hypertension 023 Last Documented On 3 2:32PM ; [facility] No previous hospitalizations 07/23/2022 Last Documented On 3 2:32PM ; [facility] Recent immunization for flu 07/23/2022 Last Documented On 3 2:32PM ; [facility] Work Phone: 1(593) 947-667603-04-2023 History general Narrative - Reported Includes: Medical History in patient's chart Description Last Updated A recent examination by an ophthalmologi st 07/21/2022 results in eye 06/04/2023 Last Documented On 4 11:53AM ; [facility] No previous hospitalizations 05/10/2023 Last Documented On 3 10:52AM ; [facility] Recent eye exam showed no apparent retin opathy present 05/10/2023 Last Documented On 3 10:52AM ; [facility] Not planning to have a baby in the next 12 months 04/18/2023 Last Documented On 3 10:11PM ; [facility] No previous suicide attempt 07/24/2022 Last Documented On 3 12:17AM ; [facility] History of diabetes mellitus 07/23/2022 Last Documented On 3 2:32PM ; [facility] History of systemic hypertension 023 Last Documented On 3 2:32PM ; [facility] Recent immunization for flu 07/23/2022 Last Documented On 3 2:32PM ; [facility] Work Phone: 1(225) 412-392203-04-2023 History general Narrative - Reported Includes: Medical History in patient's chart Description Last Updated A recent examination by an ophthalmologi st 07/21/2022 results in eye 06/04/2023 Last Documented On 4 11:53AM ; [facility] No previous hospitalizations 05/10/2023 Last Documented On 3 10:52AM ; [facility] Recent eye exam showed no apparent retin opathy present 05/10/2023 Last Documented On 3 10:52AM ; [facility] Not planning to have a baby in the next 12 months 04/18/2023 Last Documented On 3 10:11PM ; [facility] No previous suicide attempt 07/24/2022 Last Documented On 3 12:17AM ; [facility] History of diabetes mellitus 07/23/2022 Last Documented On 3 2:32PM ; [facility] History of systemic hypertension 023 Last Documented On 3 2:32PM ; [facility] Recent immunization for flu 07/23/2022 Last Documented On 3 2:32PM ; [facility] Work Phone: 1(194) 276-349602-28-2023 NoteCONSULTATION CONSULTATION DATE: 07/17/2022 TO: Dr. Prado [...] as tolerated. To reduce the use of Curran from 5 mg pills q.i.d. to 5 mg pill one b.i.d. as tolerated. Again, I have requested physical therapy for the patient as well. I have gone over the details with the patient. All her questions answered. She agreed to proceed with the outlined plan.[id number] Evaluation note* Encounter Date Diagnosis Assessment Notes [...] understanding and is agreeable to treatment plan [employer] Other Evaluation noteNo assessment information available [facility] Work Phone: Evaluation note Includes: Assessments for all patient encounters Findings Encounter Date [Z68.36 - Body mass index [B FL] 36.0-36.9, adult] assessment of body mass index Medical Established Patient with Latia Sparks PLANNING COORDINATOR 08/02/2022 Last Documented On 3 1:35PM ; [facility] Intervention and counseling on cessation of tobacco use, 3-10 minutes Discussed medication and nicotine replacement for tobacco cessation Medical Established Patient with Latia Sparks PLANNING COORDINATOR 08/02/2022 Last Documented On 3 1:35PM ; [facility] Visit for: person consulting for explanation of examination or test findings Medical Established Patient with Latia Sparks PLANNING COORDINATOR 08/02/2022 Last Documented On 3 1:35PM ; [facility] Generalized anxiety disorder Established Shirley ent with Cinthia Stone SUPERVISOR INSPECTION 07/23/2022 Last Documented On 3 12:17AM ; [facility] Intervention and counseling on cessation of tobacco use, 3-10 minutes Discussed medication and nicotine replacement for tobacco cessation Established Patient with Cinthia Stone SUPERVISOR INSPECTION 07/23/2022 Last Documented On 3 12:17AM ; [facility] Moderate recurrent major depression E stablished Patient with Cinthia Stone SUPERVISOR INSPECTION 07/23/2022 Last Documented On 3 12:17AM ; [facility] Nicotine dependence Established Patient with Cinthia Stone SUPERVISOR INSPECTION 07/23/2022 Last Documented On 3 12:17AM ; [facility] Primary insomnia Established Patient with Deysi pugh Stone SUPERVISOR INSPECTION 07/23/2022 Last Documented On 3 12:17AM ; [facility] [Z68.36 - Body mass index [B FL] 36.0-36.9, adult] assessment of body mass index Medical New Patient with Latia Sparks PLANNING COORDINATOR 07/23/2022 Last Documented On 3 2:32PM ; [facility] Diabetes Risk Test Score was nine score 07/23/2022 Medical New Patient with Latia Sparks PLANNING COORDINATOR 07/23/2022 Last Documented On 3 2:32PM ; [facility] Intervention and counseling on cessation of tobacco use, 3-10 minutes Discussed medication and nicotine replacement for tobacco cessation Medical New Patient with Latia Sparks PLANNING COORDINATOR 07/23/2022 Last Documented On 3 2:32PM ; [facility] Screening for Hep C Medical New Patient with Nad yelitza Sparks [facility] 07/23/2022 Last Documented On 3 2:32PM ; [facility] Screening for HIV Medical New Patient with Hiren pSarks PLANNING COORDINATOR 07/23/2022 Last Documented On 3 2:32PM ; [facility] Venipuncture was performed Medical New Patient w dmitry Sparks [facility] 07/23/2022 Last Documented On 3 2:32PM ; [facility] Visit for routine adult H&P without abnormal findings Medical New Patient with Latia Sparks PLANNING COORDINATOR 07/23/2022 Last Documented On 3 2:32PM ; [facility] Work Phone: Evaluation note Includes: Assessments for all patient encounters Findings Encounter Date [Z68.36 - Body mass index [B FL] 36.0-36.9, adult] assessment of body mass index Medical Established Patient with Latia Sparks PLANNING COORDINATOR 08/02/2022 Last Documented On 3 1:36PM ; [facility] Intervention and counseling on cessation of tobacco use, 3-10 minutes Discussed medication and nicotine replacement for tobacco cessation Medical Established Patient with Latia Sparks PLANNING COORDINATOR 08/02/2022 Last Documented On 3 1:36PM ; [facility] Visit for: person consulting for explanation of examination or test findings Medical Established Patient with Latia Sparks PLANNING COORDINATOR 08/02/2022 Last Documented On 3 1:36PM ; [facility] Generalized anxiety disorder BH Established Shirley ent with Cinthia PARRISH 07/23/2022 Last Documented On 3 12:17AM ; [facility] Intervention and counseling on cessation of tobacco use, 3-10 minutes Discussed medication and nicotine replacement for tobacco cessation Established Patient with Cinthia Stone SUPERVISOR INSPECTION 07/23/2022 Last Documented On 3 12:17AM ; [facility] Moderate recurrent major depression E stablished Patient with Cinthia Stone SUPERVISOR INSPECTION 07/23/2022 Last Documented On 3 12:17AM ; [facility] Nicotine dependence Established Patient with Cinthia Stone SUPERVISOR INSPECTION 07/23/2022 Last Documented On 3 12:17AM ; [facility] Primary insomnia Established Patient with Deysi pugh Stone SUPERVISOR INSPECTION 07/23/2022 Last Documented On 3 12:17AM ; [facility] [Z68.36 - Body mass index [B FL] 36.0-36.9, adult] assessment of body mass index Medical New Patient with Latia Sparks PLANNING COORDINATOR 07/23/2022 Last Documented On 3 2:32PM ; [facility] Diabetes Risk Test Score was nine score 07/23/2022 Medical New Patient with Latia Sparks PLANNING COORDINATOR 07/23/2022 Last Documented On 3 2:32PM ; [facility] Intervention and counseling on cessation of tobacco use, 3-10 minutes Discussed medication and nicotine replacement for tobacco cessation Medical New Patient with Latia Spraks PLANNING COORDINATOR 07/23/2022 Last Documented On 3 2:32PM ; [facility] Screening for Hep C Medical New Patient with Nad yelitza Sparks PLANNING COORDINATOR 07/23/2022 Last Documented On 3 2:32PM ; [facility] Screening for HIV Medical New Patient with Hiren Sparks PLANNING COORDINATOR 07/23/2022 Last Documented On 3 2:32PM ; [facility] Venipuncture was performed Medical New Patient w dmitry Sparks PLANNING COORDINATOR 07/23/2022 Last Documented On 3 2:32PM ; [facility] Visit for routine adult H&P without abnormal findings Medical New Patient with Latia Sparks PLANNING COORDINATOR 07/23/2022 Last Documented On 3 2:32PM ; [facility] Work Phone: Evaluation note Includes: Assessments for all patient encounters Findings Encounter Date [Z68.35 - Body mass index [B FL] 35.0-35.9, adult] assessment of body mass index Medical Established Patient with Latia Sparks PLANNING COORDINATOR 05/10/2023 Last Documented On 3 10:52AM ; [facility] Nicotine dependence Medical Established Patient with Latia Sparks PLANNING COORDINATOR 05/10/2023 Last Documented On 3 10:52AM ; [facility] Visit for: preoperative exam Medical Est ablished Patient with Latia Sparks PLANNING COORDINATOR 05/10/2023 Last Documented On 3 10:52AM ; [facility] Moderate recurrent major depression BH E stablished Patient with Janina Meghan SUPERVISOR INSPECTION-S 04/18/2023 Last Documented On 3 1:42PM ; [facility] [Z68.35 - Body mass index [B FL] 35.0-35.9, adult] assessment of body mass index Medical Established Patient with Latia Sparks PLANNING COORDINATOR 04/18/2023 Last Documented On 3 10:11PM ; [facility] Nicotine dependence Medical Established Patient with Latia Sparks PLANNING COORDINATOR 04/18/2023 Last Documented On 3 10:11PM ; [facility] 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 Medical Established Patient with Latia Sparks PLANNING COORDINATOR 04/18/2023 Last Documented On 3 10:11PM ; [facility] Assessment of body mass index Medical Es tablished Patient with Latia Sparks PLANNING COORDINATOR 11/15/2022 Last Documented On 3 2:53PM ; [facility] Generalized anxiety disorder BH Establis hed Patient with Janina Meghan SUPERVISOR INSPECTION-S 11/08/2022 Last Documented On 3 10:03PM ; [facility] Hyperlipidemia Nurse Visit with Latia Sparks PLANNING COORDINATOR 11/08/2022 Last Documented On 3 2:16PM ; [facility] Venipuncture was performed Nurse Visit with Kathia gamino Sparks PLANNING COORDINATOR 11/08/2022 Last Documented On 3 2:16PM ; [facility] [Z68.36 - Body mass index [B FL] 36.0-36.9, adult] assessment of body mass index Medical Established Patient with Latia Sparks PLANNING COORDINATOR 08/02/2022 Last Documented On 3 1:36PM ; [facility] Intervention and counseling on cessation of tobacco use, 3-10 minutes Discussed medication and nicotine replacement for tobacco cessation Medical Established Patient with Latia Hoffmanim PLANNING COORDINATOR 08/02/2022 Last Documented On 3 1:36PM ; [facility] Visit for: person consulting for explanation of examination or test findings Medical Established Patient with Latia Hoffmanim PLANNING COORDINATOR 08/02/2022 Last Documented On 3 1:36PM ; [facility] Generalized anxiety disorder Establis hed Patient with Cinthia Stone SUPERVISOR INSPECTION-S 07/23/2022 Last Documented On 3 12:17AM ; [facility] Intervention and counseling on cessation of tobacco use, 3-10 minutes Discussed medication and nicotine replacement for tobacco cessation Established Patient with Cinthia Stone SUPERVISOR INSPECTION-S 07/23/2022 Last Documented On 3 12:17AM ; [facility] Moderate recurrent major depression E stablished Patient with Cinthia Stone SUPERVISOR INSPECTION-S 07/23/2022 Last Documented On 3 12:17AM ; [facility] Nicotine dependence Established Patient with Cinthia Stone SUPERVISOR INSPECTION-S 07/23/2022 Last Documented On 3 12:17AM ; [facility] Primary insomnia Established Patient with Deysi pugh Stone SUPERVISOR INSPECTION-S 07/23/2022 Last Documented On 3 12:17AM ; [facility] [Z68.36 - Body mass index [B FL] 36.0-36.9, adult] assessment of body mass index Medical New Patient with Latia Sparks PLANNING COORDINATOR 07/23/2022 Last Documented On 3 2:32PM ; [facility] Diabetes Risk Test Score was nine score 07/23/2022 Medical New Patient with Latia Hoffmanim PLANNING COORDINATOR 07/23/2022 Last Documented On 3 2:32PM ; [facility] Intervention and counseling on cessation of tobacco use, 3-10 minutes Discussed medication and nicotine replacement for tobacco cessation Medical New Patient with Latia Sparks [facility] 07/23/2022 Last Documented On 3 2:32PM ; [facility] Screening for Hep C Medical New Patient with Nad yelitza Sparks [facility] 07/23/2022 Last Documented On 3 2:32PM ; [facility] Screening for HIV Medical New Patient with Hiren Sparks [facility] 07/23/2022 Last Documented On 3 2:32PM ; [facility] Venipuncture was performed Medical New Patient w dmitry Sparks [facility] 07/23/2022 Last Documented On 3 2:32PM ; [facility] Visit for routine adult H&P without abnormal findings Medical New Patient with Latia Sparks [facility] 07/23/2022 Last Documented On 3 2:32PM ; [facility] Work Phone: Evaluation note* Diagnosis Preop examination- Primary Unspecified pre-operative examination Type 2 diabetes mellitus without complication, without long-term current use of insulin ([facility]) Hypertension, unspecified type Preop examination Unspecified pre-operative examination Type 2 diabetes mellitus without complication, without long-term current use of insulin ([facility]) Hypertension, unspecified type documented [facility] this encounter [facility] Assessments for all patient encounters Findings Encounter Date [Z68.35 - Body mass index [B FL] 35.0-35.9, adult] assessment of body mass index Medical Established Patient with Laita Sparks [facility] 06/04/2023 Last Documented On 4 11:53AM ; [facility] Nicotine dependence Medical Established Patient with Latia Sparks PLANNING COORDINATOR 06/04/2023 Last Documented On 4 11:53AM ; [facility] [Z68.35 - Body mass index [B FL] 35.0-35.9, adult] assessment of body mass index Medical Established Patient with Latia Sparks PLANNING COORDINATOR 05/10/2023 Last Documented On 3 10:52AM ; [facility] Nicotine dependence Medical Established Patient with Latia Sparks PLANNING COORDINATOR 05/10/2023 Last Documented On 3 10:52AM ; [facility] Visit for: preoperative exam Medical Est ablished Patient with Latia Sparks PLANNING COORDINATOR 05/10/2023 Last Documented On 3 10:52AM ; [facility] Moderate recurrent major depression BH E stablished Patient with Janina Meghan SUPERVISOR INSPECTION-S 04/18/2023 Last Documented On 3 1:42PM ; [facility] [Z68.35 - Body mass index [B FL] 35.0-35.9, adult] assessment of body mass index Medical Established Patient with Latia Sparks PLANNING COORDINATOR 04/18/2023 Last Documented On 3 10:11PM ; [facility] Nicotine dependence Medical Established Patient with Latia Sparks PLANNING COORDINATOR 04/18/2023 Last Documented On 3 10:11PM ; [facility] 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 Medical Established Patient with Latia Sparks PLANNING COORDINATOR 04/18/2023 Last Documented On 3 10:11PM ; [facility] Assessment of body mass index Medical Es tablished Patient with Latia Sparks PLANNING COORDINATOR 11/15/2022 Last Documented On 3 2:53PM ; [facility] Generalized anxiety disorder BH Establis hed Patient with Janina Meghan SUPERVISOR INSPECTION-S 11/08/2022 Last Documented On 3 10:03PM ; [facility] Hyperlipidemia Nurse Visit with Latia Sparks PLANNING COORDINATOR 11/08/2022 Last Documented On 3 2:16PM ; [facility] Venipuncture was performed Nurse Visit with Kathia gamino Sparks PLANNING COORDINATOR 11/08/2022 Last Documented On 3 2:16PM ; [facility] [Z68.36 - Body mass index [B FL] 36.0-36.9, adult] assessment of body mass index Medical Established Patient with Latia Sparks PLANNING COORDINATOR 08/02/2022 Last Documented On 3 1:36PM ; [facility] Intervention and counseling on cessation of tobacco use, 3-10 minutes Discussed medication and nicotine replacement for tobacco cessation Medical Established Patient with Latia Hoffmanim PLANNING COORDINATOR 08/02/2022 Last Documented On 3 1:36PM ; [facility] Visit for: person consulting for explanation of examination or test findings Medical Established Patient with Latia Hoffmanim PLANNING COORDINATOR 08/02/2022 Last Documented On 3 1:36PM ; [facility] Generalized anxiety disorder Establis hed Patient with Cinthia Stone SUPERVISOR INSPECTION-S 07/23/2022 Last Documented On 3 12:17AM ; [facility] Intervention and counseling on cessation of tobacco use, 3-10 minutes Discussed medication and nicotine replacement for tobacco cessation Established Patient with Cinthia Stone SUPERVISOR INSPECTION-S 07/23/2022 Last Documented On 3 12:17AM ; [facility] Moderate recurrent major depression E stablished Patient with Cinthia Stone SUPERVISOR INSPECTION-S 07/23/2022 Last Documented On 3 12:17AM ; [facility] Nicotine dependence Established Patient with Cinthia Stone SUPERVISOR INSPECTION-S 07/23/2022 Last Documented On 3 12:17AM ; [facility] Primary insomnia Established Patient with Deysi pugh Stone SUPERVISOR INSPECTION-S 07/23/2022 Last Documented On 3 12:17AM ; [facility] [Z68.36 - Body mass index [B FL] 36.0-36.9, adult] assessment of body mass index Medical New Patient with Latia Sparks PLANNING COORDINATOR 07/23/2022 Last Documented On 3 2:32PM ; [facility] Diabetes Risk Test Score was nine score 07/23/2022 Medical New Patient with Latia Hoffmanim PLANNING COORDINATOR 07/23/2022 Last Documented On 3 2:32PM ; [facility] Intervention and counseling on cessation of tobacco use, 3-10 minutes Discussed medication and nicotine replacement for tobacco cessation Medical New Patient with Latia Hoffmanim PLANNING COORDINATOR 07/23/2022 Last Documented On 3 2:32PM ; [facility] Screening for Hep C Medical New Patient with Nad yelitza Sparks PLANNING COORDINATOR 07/23/2022 Last Documented On 3 2:32PM ; [facility] Screening for HIV Medical New Patient with Hiren Sparks PLANNING COORDINATOR 07/23/2022 Last Documented On 3 2:32PM ; [facility] Venipuncture was performed Medical New Patient w dmitry Sparks PLANNING COORDINATOR 07/23/2022 Last Documented On 3 2:32PM ; [facility] Visit for routine adult H&P without abnormal findings Medical New Patient with Latia Sparks PLANNING COORDINATOR 07/23/2022 Last Documented On 3 2:32PM ; [facility] Work Phone: History general Narrative - Reported* Type Description Date Medical History diabetes Medical History htn Medical History depression Medical History neuropathy Medical History schizophrenia [employer] Other History general Narrative - Reported Includes: Medical History in patient's chart Description Last Updated No previous suicide attempt 07/24/2022 Last Documented On 3 12:17AM ; [facility] A recent examination by an ophthalmologi st 07/21/2022 07/23/2022 Last Documented On 3 2:32PM ; [facility] History of diabetes mellitus 07/23/2022 Last Documented On 3 2:32PM ; [facility] History of systemic hypertension 023 Last Documented On 3 2:32PM ; [facility] No previous hospitalizations 07/23/2022 Last Documented On 3 2:32PM ; [facility] Recent immunization for flu 07/23/2022 Last Documented On 3 2:32PM ; [facility] Work Phone: History general Narrative - Reported Includes: Medical History in patient's chart Description Last Updated No previous hospitalizations 05/10/2023 Last Documented On 3 10:52AM ; [facility] Recent eye exam showed no apparent retin opathy present 05/10/2023 Last Documented On 3 10:52AM ; [facility] Not planning to have a baby in the next 12 months 04/18/2023 Last Documented On 3 10:11PM ; [facility] No previous suicide attempt 07/24/2022 Last Documented On 3 12:17AM ; [facility] A recent examination by an ophthalmologi st 07/21/2022 07/23/2022 Last Documented On 3 2:32PM ; [facility] History of diabetes mellitus 07/23/2022 Last Documented On 3 2:32PM ; [facility] History of systemic hypertension 023 Last Documented On 3 2:32PM ; [facility] Recent immunization for flu 07/23/2022 Last Documented On 3 2:32PM ; [facility] Work Phone: History of Present illness Narrative History of Present Illness not supported for this document type No History of Present Illness [facility]ed[facility] Work Phone: Instructions* Name Dates Details Instructions not documented [facility] Work Phone: Patient problem outcome Narrative Includes: Evaluations & Outcomes for active Goals No [facility] Work Phone: Progress note* Progress note Date Encounter Last Documented by 08/02/2022 Medical Established Patient Last documented on 08/02/2022; 1:35 PM, Latia MAYORGA; [facility] Active Problems & Conditions - E11.610 [...] results, Pt needs tresiba prescribed to the [facility] pharmacy just for today. Referred [...] has been provided. The patient lives a intermediate, where food is cooking. Denies any craving [...] previous hospitalizations. A recent examination by an mash tub cooker 07/21/2022. Immunization History: Recent immunization for flu. [...] BP-Sitting R138/82 mmHg BP Cuff SizeLarge Pulse Rate-Kghuslj29 bpm Pulse RhythmRegular Respiration Rate18 per min Temp-Qqmatguu10.5 F Xvjkys41 in Ngbazo731 lbs Body Mass Index36.7 kg/m2 Body Surface Area2 m2 Oxygen Fwgiocvkjp90 % O2 DeviceNone (Room Air) RcW108 % General Appearance: - Awake. - Alert. [...] and diastolic 80-89 mmHg diastolic 80-89 mmHg. 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 The patient did have an incident where she could not get out of the bedside commode. MEDIA SERVICES COORDINATOR speak with patient who stated she has been walking around her room, but the patient did express concerns she might not return to addictions counselor assistant living if she goes over to [facility] facility. MEDIA SERVICES COORDINATOR once again spoke with Carolyn, who agreed to have physical therapy evaluate patient to determine whether she goes to [facility] or stay in addictions counselor assistant living. . Current Medication - 1st [...] previous hospitalizations. A recent examination by an mash tub cooker 07/21/2022 results in eye. Recent eye exam showed no apparent retinopathy present. Immunization History: Recent immunization for flu. : Not planning to have a baby in the next 12 months. Diagnoses: Systemic hypertension. Diabetes mellitus Surgical: - Cholecystectomy - Hernia repair - Hysterectomy - Tubal ligation - Back surgery Allergies - [place] Reaction: Hives / Urticaria, Shock - Mellaril - PENICILLINS Reaction: Hives / Urticaria - Topamax Family History Maternal: Type 1 diabetes mellitus [facility] Narrative - Reported Review of Systems not supported for this document type No Review of Systems RecordedSaint [facility] Work Phone: Summary Purpose Family History Grandmother Name Dates Details Family history of cerebrovas cular accident (CVA)(V17.1, Z82.3) Status:Active Father Name Dates Details Family history of lung cance r(V16.1, Z80.1) Status:Active Description Last Updated Maternal history of type 1 diabetes pilar itus 07/23/2022 Last Documented On 3 2:32PM ; [facility] Description Last Updated Maternal history of type 1 diabetes pilar itus 07/23/2022 Last Documented On 3 2:32PM ; [facility] Description Last Updated Maternal history of type 1 diabetes pilar itus 07/23/2022 Last Documented On 3 2:32PM ; [facility] Description Last Updated Maternal history of type 1 diabetes pilar itus 07/23/2022 Last Documented On 3 2:32PM ; [facility] Description Last Updated Maternal history of type 1 diabetes pilar itus 07/23/2022 Last Documented On 3 2:32PM ; [facility] Description Last Updated Maternal history of type 1 diabetes pilar itus 07/23/2022 Last Documented On 3 2:32PM ; [facility] Description Last Updated Maternal history of type 1 diabetes pilar itus 07/23/2022 Last Documented On 3 2:32PM ; [facility] Description Last Updated Maternal history of type 1 diabetes pilar itus 07/23/2022 Last Documented On 3 2:32PM ; [facility] Description Last Updated Maternal history of type 1 diabetes pilar itus 07/23/2022 Last Documented On 3 2:32PM ; [facility] Description Last Updated Maternal history of type 1 diabetes pilar itus 07/23/2022 Last Documented On 3 2:32PM ; [facility] Description Last Updated Maternal history of type 1 diabetes pilar itus 07/23/2022 Last Documented On 3 2:32PM ; [facility] Description Last Updated Maternal history of type 1 diabetes pilar itus 07/23/2022 Last Documented On 3 2:32PM ; [facility] Advance Directives No Advanced Directives Records [...] complication, without long-term current use of insulin ([facility]) Hypertension, unspecified type Procedures ECG 12 lead [place], [address] [place] [address] Referral ID Status Reason Start Date Expiration Date V isits Requested Visits Authorized [id number] Pending Review 05/08/2023 05/07/2024 1 1 Additional Source Comments INFORMATION SOURCE (unrecogn ized section and content) DATE CREATED AUTHOR 03/14/2018 [facility] DATE CREATED AUTHOR AUTHOR'S ORGANIZ ATION 05/28/2018 [facility] DATE CREATED AUTHOR AUTHOR'S ORGANIZ ATION 02/05/2019 [facility] DATE CREATED AUTHOR AUTHOR'S ORGANIZ ATION 02/28/2019 [facility] DATE CREATED AUTHOR AUTHOR'S ORGANIZ ATION 03/25/2019 [facility] DATE CREATED AUTHOR AUTHOR'S ORGANIZ ATION 01/16/2022 [facility] DATE CREATED AUTHOR AUTHOR'S ORGANIZ ATION 07/13/2022 [facility] DATE CREATED AUTHOR AUTHOR'S ORGANIZ ATION 09/30/2022 [facility] DATE CREATED AUTHOR AUTHOR'S ORGANIZ ATION 11/11/2022 [facility] DATE CREATED AUTHOR AUTHOR'S ORGANIZ ATION 05/26/2023 [facility] DATE CREATED AUTHOR AUTHOR'S ORGANIZ ATION 06/15/2023 [facility] EPIC Care Teams (unrecognized sec tion and content) Team Status: Inactive Member Role Status Dates Constantine Hernandez MD Attending Provider Active Ambulatory Care Coordinator Relationship Specialty Start Date End Date Geraldo Prado MD [address] [place] [address] PCP - General Family Medicine 10/29/19 05/09/23 [...] or prosecute any alcohol or drug abuse patient.[facility] FOR RECORDS PERTAINING TO PATIENTS WHO [...] BE BASED ON THE PRIMARY CLINICAL RECORDS. [employer] [facility]. provides no warranty or guarantee of the accuracy or completeness of information in this document.
[2023-06-19 11:18] LABS: Estimated Average Glucose 108 mg/dL; Glycohemoglobin A1C 5.4 % (4.5-6.2)
== END 2023-06-19 09:10 | disposition home or self-care (01) ==
LOC: LAB 09:09
DX: E11.65 Type 2 diabetes mellitus with hyperglycemia (principal); E55.9 Vitamin D deficiency, unspecified
CPT/HCPCS: 36415; 82306; 83036

== ENCOUNTER 2023-07-11 10:18 | Outpatient (OUT) | payer MEDICARE, MEDICAID, SELFPAY ==
--- NOTE | 2023-07-11 10:14 | P.CN_ITS ---
Consult Note: HPI Data of Consult Patient: known to practice within the last 3 years Consult date: 05/02/23 Requesting Physician: Jaylin Edwards NP Primary Care Provider: Non-Staff Physician, MD Consult Narrative Narrative: Johanna Jack a pleasant 72 year old female presents for evaluation and management of low back pain. Patient reporting 10/10 pain in low back pain, at last visit patient went to the hospital and was diagnosed with complex burst type fracture involving the L3 vertebral body with fracture of the right L3 ying sverse process and left lamina with a likely insufficiency compression component of the body measuring up to 70%. There is retropulsion of the posterior superior vertebral body at the 9 mm into the central canal . Interval L1 kyphoplasty with stable 30% anterior wedge compression fracture. Patient continues to follow with Dr Jay. Patient reporting pain 10/10, pain decreases to 9/10 with med ications. Patient LUCÍA 64%. Denies side effects from current medication regimen. cc:: CC: Jaylin Edwards NP Review of Systems ROS Status of ROS 10 or more systems reviewed and unremark able except as noted in history and below Musculoskeletal Reports: back pain PFSH PFSH Medical History Basal pneumonia ?J18.9 - Pneumonia, unspecified organism (ICD-10) Pneumonia ?J18.9 - Pneumonia, unspecified organism (ICD-10) Hypoxia ?R09.02 - Hypoxemia (ICD-10) Shortness of breath ?R06.02 - Shortness of breath (ICD-10) DNR (do not resuscitate) ?Z66 - Do not resuscitate (ICD-10) Obesity (BMI 30.0-34.9) ?E66.9 - Obesity, unspecified (ICD-10) Chronic pain syndrome ?G89.4 - Chronic pain syndrome (ICD-10) Inguinal hernia ?K40.90 - Unilateral inguinal hernia, without obstruction or gangrene, not specified as recurrent (ICD-10) Upper back pain ?M54.9 - Dorsalgia, unspecified (ICD-10) Osteoarthritis ?M19.90 - Unspecified osteoarthritis, unspecified site (ICD-10) Obesity ?E66.9 - Obesity, unspecified (ICD-10) Anxiety ?F41.9 - Anxiety disorder, unspecified (ICD-10) Depression ?F32.A - Depression, unspecified (ICD-10) Hiatal hernia ?K44.9 - Diaphragmatic hernia without obstruction or gangrene (ICD-10) Heartburn ?R12 - Heartburn (ICD-10) Diabetes ?E11.9 - Type 2 diabetes mellitus without complications (ICD-10) Smoker ?F17.200 - Nicotine dependence, unspecified, uncomplicated (ICD-10) High cholesterol ?E78.00 - Pure hypercholesterolemia, unspecified (ICD-10) Hypertension ?I10 - Essential (primary) hypertension (ICD-10) Surgical History History of cholecystectomy ?Z90.49 - Acquired absence of other specified parts of digestive tract (ICD- 10) H/O: hysterectomy ?Z90.710 - Acquired absence of both cervix and uterus (ICD-10) H/O tubal ligation ?Z98.51 - Tubal ligation status (ICD-10) Social History Smoking status: Current every day smoker Meds Home Medications and Allergies Home Medications Medication Instructions Recorded Confirmed Type amitriptyline 25 mg tablet 25 mg PO BEDTIME 10/19/22 04/06/23 History amlodipine 10 mg tablet 10 mg PO QDAY 10/19/22 04/05/23 History aspirin 81 mg tablet,delayed 81 mg PO QDAY 10/19/22 04/05/23 History release (Adult Aspirin Regimen) fluoxetine 10 mg tablet 10 mg PO QDAY 10/19/22 04/05/23 History gabapentin 600 mg tablet 600 mg PO TID 10/19/22 04/05/23 History glucagon 3 mg/actuation nasal 3 mg intranasal .every 6 PRN 10/19/22 04/05/23 History spray (Baqsimi) hypoglycemia hydrochlorothiazide 25 mg tablet 25 mg PO QDAY 10/19/22 04/05/23 History hydrocodone 5 mg-acetaminophen 325 1 tab PO BID PRN pain 10/19/22 04/05/23 History mg tablet insulin degludec 100 unit/mL (3 40 unit subcut .at supp 10/19/22 04/05/23 History mL) subcutaneous pen (Tresiba FlexTouch U-100 insulin) insulin lispro 100 unit/mL 1 sliding scale dose subcut 10/19/22 04/05/23 History subcutaneous solution (Humalog USEASDIRECTD U-100 Insulin) losartan 100 mg tablet 100 mg PO QDAY 10/19/22 04/05/23 History metformin 500 mg tablet 500 mg PO BID 10/19/22 04/05/23 History pantoprazole 40 mg tablet,delayed 40 mg PO QDAY 10/19/22 04/05/23 History release pravastatin 20 mg tablet 20 mg PO BEDTIME 10/19/22 04/06/23 History sucralfate 1 gram tablet 1 g PO BEDTIME 10/19/22 04/06/23 History aripiprazole 15 mg tablet 15 mg PO BEDTIME 04/05/23 04/06/23 History fluticasone propionate 50 2 spray intranasal QAM 04/05/23 04/05/23 History mcg/actuation nasal spray,suspension hydralazine 25 mg tablet 25 mg PO Q12H 04/05/23 04/05/23 History magnesium oxide 400 mg (241.3 mg 400 mg PO TID 04/05/23 04/05/23 History magnesium) tablet vit D3 5000 125 mcg PO DAILY 04/05/23 04/05/23 History alprazolam 0.5 mg tablet (Xanax) 0.5 mg PO BID PRN anxiety 04/06/23 04/06/23 History baclofen 5 mg tablet 5 mg PO TID PRN muscle spasm 04/06/23 04/06/23 History camphor-menthol 0.2 %-3.5 % 1 applic topical BID PRN pain 04/06/23 04/06/23 History topical gel dulaglutide 4.5 mg/0.5 mL 4.5 mg subcut QWEEK 04/06/23 04/06/23 History subcutaneous pen injector (Trulicity) fenofibrate 160 mg tablet 160 mg PO DAILY 04/06/23 04/06/23 History ondansetron HCl 4 mg tablet 4 mg PO Q6H PRN nausea and vomiting 04/06/23 04/06/23 History trazodone 50 mg tablet 50 mg PO BEDTIME 04/06/23 04/06/23 History benzonatate 200 mg capsule 200 mg PO TID PRN cough #20 caps 04/10/23 Rx benzonatate 200 mg capsule 200 mg PO TID PRN cough #30 caps 04/10/23 Rx levofloxacin 750 mg tablet 750 mg PO DAILY 7 days #7 tabs 04/10/23 Rx levofloxacin 750 mg tablet 750 mg PO DAILY 7 days #7 tabs 04/10/23 Rx hydrocodone 5 mg-acetaminophen 325 1 tab PO BID PRN pain #60 tabs 04/25/23 Rx mg tablet hydrocodone 7.5 mg-acetaminophen 1 tab PO BID PRN pain #60 tabs 05/02/23 Rx 325 mg tablet hydrocodone 7.5 mg-acetaminophen 1 tab PO BID PRN pain #60 tabs 05/27/23 Rx 325 mg tablet nabumetone 750 mg tablet 750 mg PO BID PRN breakthrough 06/05/23 Rx pain #14 tabs Allergies Allergy/AdvReac Type Severity Reaction Status Date / Time haloperidol [From Haldol] Allergy Unknown Verified 11/27/22 09:53 ebenezer Allergy Unknown Verified 11/27/22 09:53 Penicillins Allergy Unknown Verified 11/27/22 09:53 topiramate [From Topamax] Allergy Unknown Verified 11/27/22 09:53 Exam Constitutional Documenting provider has reviewed patient's vital signs: yes Common normals: oriented x3, healthy appearing, alert and well nourished General appearance: cooperative and in distress HENNY Common normals: normocephalic, hearing grossly normal bilaterally and moist oral mucous membranes Head and scalp: normocephalic Eye Common normals: PERRL Pupil: PERRL Neck & C-Spine Common normals: full ROM General: normal visual inspection Chest Common normals: inspection of chest normal Respiratory Common normals: normal respiratory effort, no retractions and no use of acce ssory muscles Back & Pelvis Thoracic spine/upper back: ROM limited and pain with ROM Lumbar spine/lower back: ROM limited, pain with ROM and straight leg raise negative bilaterally Extremity Common normals: normal to inspection Neuro Common normals: oriented x3, CN's II-XII intact bilaterally, moves all extremities, no focal motor deficits, no sensory deficits noted and deep tendon reflexes 2+ bilaterally Sensorium/orientation: alert Gait (neuro): antalgic Motor exam: no movement abnormalities noted and strength abnormal (4/5 BLE) Psych Common normals: mental status grossly normal, thought process normal, cooperative, affect normal, speech normal and activity/motor behavior normal Speech: normal speech Thought process: normal thought process Assessment and Plan Assessment and Plan (1) Chronic prescription opiate use: Assessment and Plan: Opioid escalation to percoet 7.5-325mg Q6hrs PRN moderate to severe pain. Previous hydrocodone-acetaminophen 7.5mg q6hrs PRN barely helping with pain and functional ability. Patient and daughter educated on risks vs benefits and side effects. Narcan available at the half-way, last prescribed 11/09 through our office The patient is NOT opioid naive and non-pharmacologic and non-opioid treatment has failed to significantly relieve the patient's pain and improve functionality. The patient has a diagnosis that is related to a somatic or visceral pain etiology. ? ?? I reviewed with the patient the potential risks and side effects with the use of? opioid medications including but not limited to respiratory depression,? sedation, and even . I verified the patient has access to naloxone should? these effects occur. I advised the patient to avoid the use of any other? sedation substances including alcohol, THC, and benzodiazepines while? taking opioid medications due to the risk of compounding side effects and? detrimental outcomes. I reviewed the [employer], pain treatment agreement, urine? drug screen, and opioid start talking forms. The patient was advised to let? their family know they had Naloxone in case they would need to administer? the medication.? ?? A drug screen was completed within the last year, and no aberrancies were noted regarding their use of controlled substances. The patient understands they are subject to the terms and conditions of the pain contract that they have signed. ? ?? I have checked an [facility] report on this patient today and there are no aberrancies noted in the prescribing history.? (2) Closed compression fracture of L1 vertebra: (3) Lumbar stenosis with neurogenic claudication: (4) Lumbar spondylosis: (5) History of benzodiazepine use: (6) Thoracic spondylosis: (7) L3 vertebral fracture: Plan opioid escalation to percocet 7.5-325 q6hrs PRN moderate to severe pain continue other medications, tolerating well without side effects patient and daughter educated on risks of opioid therapy and increasing opioid dose today, however patients quality of life very poor at this time LUCÍA 64% and pain 10/10 f/u in person in 2 months
--- OUTSIDE RECORDS SUMMARY | 2023-07-11 10:24 | XMS_ITS | CCD ---
Author Name Unknown Address [address] [place] [address] Organization [facility] Care Team Providers Care Cycle Repairer Name Role Phone Morgan Barcenas Unavailable Unavailable PROVIDER, UNKNOWN Unavailable Unavailable Ahchandler Ilia Unavailable Unavailable Morgan Barcensa Unavailable Unavailable PROVIDER, UNKNOWN Unavailable Unavailable Ahmed, Ilia Unavailable Unavailable STIVEN ANDINO Unavailable Unavailable Unknown, Referring Provider Unavailable Unav ailable Leah Brock Unavailable Unavailable Ahchandler, Ilia Unavailable Unavailable MD Constantine Hernandez Attending Provider Isidra Hernandez Unavailable Sparks RESEARCH QUALITY 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, Latia Attending Unavailable Sparks RESEARCH QUALITY 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, Latia Primary Care Provider Unavailable Primary Care Provider Unavailabl e Sparks RESEARCH QUALITY 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, Latia Primary Care Provider MISC, DR BECERRA [...] vailable LAKSHMIPATHY ., NARENDRANATH Attending Sobeida vailable NADCLAUDIO GERALDO A Primary Care Unavailable LAKSHMIPATHY ., [...] B Referring Unavailable HARDY JAY Attending Unavailable HARDY JAY Attending Unavailable Allergies Allergy Classification Reported Allergen(s) Allergy Type Date of Onset Reaction(s) Facility Anti-Epileptic Agents (1 source) topiramate Drug Allergy [facility] Work Phone: Penicillins (antibiotic) (1 source) Penicillins; Translations: [Penicillins] Drug Allergy Replaced by [facility] Work Phone: (2 sources) Haloperidol; Translations: [Haldol] Drug Allergy 0 Unknown [facility] (1 source) Penicillin V Drug Allergy Unknown [facility] Other (2 sources) Thioridazine; Translations: [THIORIDAZINE] Drug Allergy [address] [facility] (3 sources) topiramate; Translations: [TOPIRAMATE] Drug Allergy 8 Unknown [facility] Other (3 sources) Astatula Flavor; Translations: [TAI FLAVOR] Drug allergy 8 Anaphylaxis, Swelling [facility] (7 sources) tai allergenic extract Drug Allergy 0 Hives / Urticaria, Shock [facility] (1 source) Penicillin Drug Allergy 0 [facility] (7 sources) topiramate Drug Allergy 0 [facility] (8 sources) Penicillins; Translations: [PENICILLINS] Allergy to substance 8 Hives / Urticaria, Hives, Itching [facility] (6 sources) Thioridazine Drug Allergy 3 [facility] (2 sources) Temazepam; Translations: [TEMAZEPAM] Drug Allergy 8 Other (See Comments) [facility] (1 source) Haloperidol; Translations: [HALOPERIDOL] Drug Allergy [address] [facility] Medications Current Medications Medication Drug Class(es) [...] Oral Tablet 11/08/2022 - 11/15/2022 Provider: Latia GREENP Start: 07-06-2022 End: 08-02-2022 Amitriptyline HCl 25 [...] Tablet 02/06/2023 - 11/15/2022 Provider: Latia Sparks RESEARCH QUALITY 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 Start: 02-06-2023 End: 11-15-2022 amLODIPine Besylate 10 MG Or al Tablet 02/06/2023 - 11/15/2022 Provider: Latia MAYORGA Start: 02-06-2023 End: 11-15-2022 amLODIPine Besylate 10 MG Or al Tablet 02/06/2023 - 11/15/2022 Provider: Latia Sparks RESEARCH QUALITY 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 Start: 02-06-2023 End: 11-15-2022 amLODIPine Besylate 10 [...] t 12/18/2022 - 11/15/2022 Provider: Latia Hoffmanim RESEARCH QUALITY 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 Start: 12-18-2022 End: 11-15-2022 Gabapentin 600 MG Oral Table t 12/18/2022 - 11/15/2022 Provider: Latia Sparsk RESEARCH QUALITY 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 Start: 08-22-2022 End: 11-15-2022 Gabapentin 600 MG Oral Table t 08/22/2022 - 11/15/2022 Provider: Latia Sparks RESEARCH QUALITY 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 Start: 07-03-2022 End: 08-02-2022 Gabapentin 600 MG Oral Table t 07/23/2022 - 08/02/2022 Provider: Latia Sparks RESEARCH QUALITY 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 Gabapentin Activ e hydrALAZINE hydrochloride 25 mg oral tablet (20 sources) Arteriolar Vasodilator Start: 02-06-2023 hydrALAZINE HCl 25 M G Oral Tablet 02/06/2023 Provider: Latia Hoffmanim RESEARCH QUALITY 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 Start: 09-09-2022 End: 11-15-2022 hydrALAZINE HCl 25 MG Oral T ablet 11/08/2022 - 11/15/2022 Provider: Latia Sparks RESEARCH QUALITY 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 Start: 09-09-2022 End: 08-02-2022 hydrALAZINE HCl 25 [...] Amide Local Anesthetic Star t: 03-22 0- 23 Lidocaine 5% External Patch 04/18/2023 Provider: Latia MAYORGA losartan potassium 100 mg oral tablet (20 sources) Angiotensin 2 Receptor Jone Star t: 2 0- 23 Losartan Potassium 100 MG Or al Tablet 02/06/2023 Provider: Latia MAYORGA Start: 08-28-2022 End: 11-15-2022 Losartan Potassium 100 MG Or al Tablet 08/28/2022 - 11/15/2022 Provider: Latia MAYORGA Start: 07-28-2022 End: 08-02-2022 Losartan Potassium 100 MG Or al Tablet 07/28/2022 - 08/02/2022 Provider: Losartan Potassi um Active Menthol (1 source) Biofreeze Active [...] l Tablet 07/23/2022 - 08/02/2022 Provider: Latia Sparks [facility] Pravastatin Sodi um Active sucralfate 1000 mg oral tablet (20 sources) Aluminum Complex Start: 08-09-2022 Sucralfate 1 GM Oral Tablet 08/09/2022 Provider: Latia GREENP Start: 07-15-2022 End: 08-02-2022 Sucralfate 1 GM Oral Tablet 07/23/2022 - 08/02/2022 Provider: Latia Sparks RESEARCH QUALITY 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 Sucralfate Activ e traZODone hydrochloride 50 mg oral tablet (20 sources) Serotonin Reuptake Inhibitor Start: 02-06-2023 traZODone HCl 50 MG Oral Tablet 02/06/2023 Provider: Latia GREENP Start: 11-08-2022 End: 11-15-2022 traZODone HCl 50 MG Oral Tab let 11/08/2022 - 11/15/2022 Provider: Latia GREENP Start: 08-22-2022 traZODone HCl 100 MG Oral Tablet 08/22/2022 Provider: Latia Sparks [facility] Start: 07-20-2022 End: 08-02-2022 traZODone [...] t 12/18/2022 - 11/15/2022 Provider: Latia Sparks RESEARCH QUALITY 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 Start: 12-18-2022 End: 11-15-2022 ALPRAZolam 0.5 MG Oral Table t 12/18/2022 - 11/15/2022 Provider: Latia Sparks RESEARCH QUALITY 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 Start: 12-18-2022 End: 11-15-2022 ALPRAZolam 0.5 MG Oral Table t 12/18/2022 - 11/15/2022 Provider: Latia Sparks RESEARCH QUALITY 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 Start: 12-18-2022 End: 11-15-2022 ALPRAZolam 0.5 MG [...] Refills: 0 Active Dextromethorphan (1 source) Uncompetitive K-yrzdlx-E-aspartate Receptor Antagonist, Sigma-1 Agonist DexAlone CAPS Refills: 0 Active diazePAM 5 mg oral tablet (1 source) Benzodiazepine Start: 06-07-2017 diazePAM 5 MG Oral Tablet Quantity: 2 Refills: 0 Start : 07-Jun-2017 Active 0.5 ml dulaglutide 3 mg/ml auto-injector (20 sources) GLP-1 Receptor Agonist Start: 07-16-2022 End: 08-22-2022 Trulicity 1.5 MG/0.5ML Subcutaneous Solution Pen-injector 07/23/2022 - 08/02/2022 Provider: Latia Sparks RESEARCH QUALITY 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 Start: 07-04-2022 End: 08-22-2022 Trulicity 0.75 MG/0.5ML [...] unspecified] Onset: 01-08-2018 Other aftercare (1 source) prison (current) use of insulin; Translations: [COOK COLD MEAT CURRENT USE OF INSULIN] Onset: 09-27-2022 Episodic [...] Facility Surgical Pathologyon 023 Surgical Pathology Normal [facility] Comment on above: Result Comment: [facility] [employer] [facility] [address] [place] [address] Surgical Pathology Consultation Patient Name:TUNDE JACK:1950 (Age: 72)Gender:FTaken:05/16/2023Reported:05/22/2023hysician(s):Hardy Jay DO ([phone])Copy To: Rec. #:[id number]: #[id number] Final Pathologic Diagnosis L2 vertebra, biopsy: Viable bone with fibrosis and new bone formation. Negative for granuloma and neoplasia. Report Electronically Signed Out gr/05/22/2023Nikolai Fitch MD [facility] [place] [address], License number: [id number]. Clinical History Compression fracture L2. Gross Description Received in formalin labeled MICKEY, L2 vertebra , are four cores of firm crowell bone each 0.3 cm diameter and ranging from 0.3 to 1.0 cm in length. The specimen is entirely submitted in a single cassette following decalcification. (1,ns,S23, 09460, m1) PV pv/05/17/2023P Specimen(s) Received L2 vertebra Fee Codes(s): 1; 22540, 64112 BASIC METABOLIC PANLon 05-10 Anion gap [Moles/Vol] 7 mmol/L Normal 5-15 [facility] Comment on above: Performed By: #### B MP #### [facility] ([id number]) [address], [address] [place] [address] Calcium [Mass/Vol] 10.1 mg/dL Normal 8.5-10.5 [facility] Comment on above: Performed By: #### B MP #### [facility] ([id number]) [address], [address] [place] [address] Chloride [Moles/Vol] 107 mmol/L Normal 98-109 [facility] Comment on above: Performed By: #### B MP #### [facility] ([id number]) [address], [address] [place] [address] CO2 [Moles/Vol] 26 mmol/L Normal 22-32 [facility] Comment on above: Performed By: #### B MP #### [facility] ([id number]) [address], [address] [place] [address] Creatinine [Mass/Vol] 0.65 mg/dL Normal 0.40-1.00 [facility] Comment on above: Result Comment: METH OD TRACEABLE TO IDMS STANDARD Performed By: #### B MP #### [facility] ([id number]) [address], [address] [place] [address] eGFR (CKD-EPI) NON-RACE DEPENDENT >90 Normal >59 [facility] Comment on above: Result Comment: Reported eGFR is based on the CKD-EPI 2020 equation that does not use a race coefficient. Performed By: #### B MP #### [facility] ([id number]) [address], [address] [place] [address] Glucose [Mass/Vol] 83 mg/dL Normal 65-99 [facility] Comment on above: Performed By: #### B MP #### [facility] ([id number]) [address], [address] [place] [address] Potassium [Moles/Vol] 4.1 mmol/L Normal 3.5-5.0 [facility] Comment on above: Performed By: #### B MP #### [facility] ([id number]) [address] [place] [address] Sodium [Moles/Vol] 140 mmol/L Normal 134-146 [facility] Comment on above: Performed By: #### B MP #### [facility] ([id number]) [address], [address] [place] [address] Urea nitrogen [Mass/Vol] 19 mg/dL Normal 5-27 [facility] Comment on above: Performed By: #### B MP #### [facility] ([id number]) [address], [address] [place] [address] Basic Metabolic Panelon 12-2 Anion gap [Moles/Vol] 7 mmol/L 5 - 15 mmol/L [facility] Calcium [Mass/Vol] 10.1 mg/dL 8.5 - 10.5 mg/dL [facility] Chloride [Moles/Vol] 107 mmol/L 98 - 109 mmol/L [facility] CO2 [Moles/Vol] 26 mmol/L 22 - 32 mmol/L [facility] Creatinine [Mass/Vol] 0.65 mg/dL 0.40 - 1.00 mg/dL [facility] Comment on above: METHOD TRACEABLE TO IDMS STANDARD eGFR (CKD-EPI)non-race dependent - PINF [facility] Comment on above: Reported eGFR is based on the CKD-EPI 2020 equation that does not use a race coefficient. Glucose [Mass/Vol] 83 mg/dL 65 - 99 mg/dL [facility] Potassium [Moles/Vol] 4.1 mmol/L 3.5 - 5.0 mmol/L [facility] Sodium [Moles/Vol] 140 mmol/L 134 - 146 mmol/L [facility] Urea nitrogen [Mass/Vol] 19 mg/dL 5 - 27 mg/dL [facility] 12 leadon 05-10-2023 TRACEMASTERVUE [facility] Comp Metabolic Profon 2022 Albumin [Mass/Vol] 4.3 g/dL Normal 3.5-5.2 [facility] Comment on above: Performed By: #### L IPR, CP #### [facility] [employer] [address] [place] [address] Wood Bucker: Genaro Angel MD Albumin/Glob Ratio 1.5 Normal 1.0-2.5 [facility] Comment on above: Performed By: #### L IPR, CP #### [facility] [employer] [address] [place] [address] Wood Bucker: Genaro Angel MD Alkaline Phos 116 U/L High 35-104 [facility] Comment on above: Performed By: #### L IPR, CP #### [facility] [employer] [address] [place] [address] Wood Bucker: Genrao Angel MD ALT [Catalytic activity/Vol] 25 U/L Normal 5-33 [facility] Comment on above: Performed By: #### L IPR, CP #### [facility] [employer] [address] [place] [address] Wood Bucker: Genaro Angel MD Anion gap [Moles/Vol] 15 mmol/L Normal 9-17 [facility] Comment on above: Performed By: #### L IPR, CP #### [address] [address] Wood Bucker: Genaro Angel MD AST [Catalytic activity/Vol] 32 U/L High <32 [facility] Comment on above: Performed By: #### L IPR, CP #### [facility] [employer] [address] [place] [address] Wood Bucker: Genaro Angel MD Bilirubin [Mass/Vol] 0.2 mg/dL Low 0.3-1.2 [facility] Comment on above: Performed By: #### L IPR, CP #### [facility] [employer] [address] [place] [address] Wood Bucker: Genaro Angel MD Calcium [Mass/Vol] 10.7 mg/dL High 8.6-10.4 [facility] Comment on above: Performed By: #### L IPR, CP #### [facility] [employer] [address] [place] [address] Wood Bucker: Genaro Angel MD Chloride [Moles/Vol] 102 mmol/L Normal 98-107 [facility] Comment on above: Performed By: #### L IPR, CP #### [facility] [employer] [address] [place] [address] Wood Bucker: Genaro Angel MD CO2 [Moles/Vol] 23 mmol/L Normal 20-31 [facility] Comment on above: Performed By: #### L IPR, CP #### [facility] [employer] [address] [place] [address] Wood Bucker: Genaro Angel MD Creatinine [Mass/Vol] 0.93 mg/dL High 0.50-0.90 [facility] Comment on above: Performed By: #### L IPR, CP #### [facility] [employer] [address] [place] [address] Wood Bucker: Genaro Angel MD GFR/1.73 sq M.predicted among non-blacks MDRD (S/P/Bld) [Vol rate/Area] mL/min/{1.73_m2} Normal >60 [facility] Comment on above: Result Comment: These [...] Performed By: #### L IPR, CP #### [facility] [address] [address] Wood Bucker: Genaro Angel MD Glucose [Mass/Vol] 138 mg/dL High 70-99 [facility] Comment on above: Performed By: #### L IPR, CP #### [address] [address] Wood Bucker: Genaro Angel MD Potassium [Moles/Vol] 5.3 mmol/L Normal 3.7-5.3 [facility] Comment on above: Performed By: #### L IPR, CP #### [facility] [address] [place] [address] Wood Bucker: Genaro Angel MD Protein [Mass/Vol] 7.1 g/dL Normal 6.4-8.3 [facility] Comment on above: Performed By: #### L IPR, CP #### [facility] [address] [place] [address] Wood Bucker: Genaro Angel MD Sodium [Moles/Vol] 140 mmol/L Normal 135-144 [facility] Comment on above: Performed By: #### L IPR, CP #### [facility] [address] [place] [address] Wood Bucker: Genaro Angel MD Urea nitrogen [Mass/Vol] 26 mg/dL High 8-23 [facility] Comment on above: Performed By: #### L IPR, CP #### [facility] [address] [place] [address] Wood Bucker: Genaro Angel MD Lipid Profileon 11-10-2022 Cholesterol [Mass/Vol] 152 mg/dL Normal <200 [facility] Comment on above: Result Comment: Cholesterol Guidelines: <200 Desirable 200-240 Borderline >240 Undesirable Performed By: #### L IPR, CP #### [facility] [employer] [address] [place] [address] Wood Bucker: Genaro Angel MD Cholesterol in HDL [Mass/Vol] 30 mg/dL Low >40 [facility] Comment on above: Result Comment: HDL Guidelines: <40 Undesirable 40-59 Borderline >59 Desirable Performed By: #### L IPR, CP #### [facility] [employer] [address] [place] [address] Wood Bucker: Genaro Angel MD Cholesterol in LDL [Mass/Vol] 44 mg/dL Normal 0-130 [facility] Comment on above: Result Comment: LDL Guidelines: <100 Desirable 100-129 Near to/above Desirable 130-159 Borderline >159 Undesirable Direct (measured) LDL and calculated LDL are not interchangeable tests. Performed By: #### L IPR, CP #### [facility] [employer] [address] [place] [address] Wood Bucker: Genaro Angel MD Cholesterol.total /Cholesterol in HDL [Mass ratio] 5.1 {ratio} High <5 [facility] Comment on above: Performed By: #### L IPR, CP #### [facility] [employer] [address] [place] [address] Wood Bucker: Genaro Angel MD Triglyceride [Mass/Vol] 390 mg/dL High <150 [facility] Comment on above: Result Comment: Triglyceride Guidelines: <150 Desirable 150-199 Borderline 200-499 High >499 Very high Based on AHA Guidelines for fasting triglyceride, February 2012. Performed By: #### L IPR, CP #### [facility] [employer] [address] [place] [address] Wood Bucker: Genaro Angel MD Laboratory - Chemistry and C hemistry - challengeon 11-09-2022 Albumin [Mass/Vol] 4.3 g/dL (3.5-5.2 ) [facility] Comment on above: Note: Responsible Ob train station server: [employer]CE[employer] AUTOFILE (3002) ALT [Catalytic activity/Vol] 25 U/L (5-33 ) [facility] Comment on above: Note: Responsible Ob train station server: [employer]FILE (3002) Anion gap [Moles/Vol] 15 mmol/L (9-17 ) [facility] Comment on above: Note: Responsible Ob train station server: [employer]FILE (3002) AST [Catalytic activity/Vol] 32 U/L High (<32 ) [facility] Comment on above: Note: Responsible Ob train station server: [employer] AUT[employer]FILE (3002) Bilirubin [Mass/Vol] 0.2 mg/dL Low (0.3-1.2 ) [facility] Comment on above: Note: Responsible Ob train station server: [employer]FILE (3002) Calcium [Mass/Vol] 10.7 mg/dL High (8.6-10.4 ) [facility] Comment on above: Note: Responsible Ob train station server: [employer]FILE (3002) Chloride [Moles/Vol] 102 mmol/L (98-107 ) [facility] Comment on above: Note: Responsible Ob train station server: [employer]FILE (3002) Cholesterol [Mass/Vol] 152 mg/dL (<200 ) [facility] Comment on above: Note: Cholesterol Gu idelines:<200 [id number] Borderline>240 UndesirableResponsible Observer: [employer] AUTOFILE (3002) Cholesterol.total /Cholesterol in HDL [Mass ratio] 5.1 {ratio} High (<5 ) [facility] Comment on above: Note: Responsible Ob train station server: [employer]FILE (3002) CO2 [Moles/Vol] 23 mmol/L (20-31 ) [facility] Comment on above: Note: Responsible Ob train station server: [employer] AUTOFILE (3002) Creatinine [Mass/Vol] 0.93 mg/dL High (0.50-0.90 ) [facility] Comment on above: Note: Responsible Ob train station server: [employer] AUT[employer]FILE (3002) GFR/1.73 sq M.predicted among non-blacks MDRD (S/P/Bld) [Vol rate/Area] mL/min/{1.73_m2} (>60 ) [facility] Comment on above: Note: These [...] Glucose [Mass/Vol] 138 mg/dL High (70-99 ) [facility] Comment on above: Note: Responsible Ob train station server: [employer]FILE (3002) Magnesium [Mass/Vol] 30 mg/dL Low (>40 ) [facility] Comment on above: Note: HDL Guidelines :<40 Cerjbrtqavt81-03 Borderline>59 DesirableResponsible Observer: [employer] AUTOFILE (3002) Magnesium [Mass/Vol] 44 mg/dL (0-130 ) [facility] Comment on above: Note: LDL Guidelines :<100 [id number] Near to/above [id number] Borderline>159 UndesirableDirect (measured) LDL and calculated LDL are not interchangeable tests.Responsible Observer: [employer]FILE (3002) Potassium [Moles/Vol] 5.3 mmol/L (3.7-5.3 ) [facility] Comment on above: Note: Responsible Ob train station server: [employer] AUT[employer]FILE (3002) Protein [Mass/Vol] 7.1 g/dL (6.4-8.3 ) [facility] Comment on above: Note: Responsible Ob train station server: [employer] AUT[employer]FILE (3002) Sodium [Moles/Vol] 140 mmol/L (135-144 ) [facility] Comment on above: Note: Responsible Ob train station server: [employer]FILE (3002) Triglyceride [Mass/Vol] 390 mg/dL High (<150 ) [facility] Comment on above: Note: Triglyceride G uidelines:<150 [id number] [id number] High>499 Very highBased on AHA Guidelines for fasting triglyceride, February 2012.Responsible Observer: [employer] (3002) Urea nitrogen [Mass/Vol] 26 mg/dL High (8-23 ) [facility] Comment on above: Note: Responsible Ob train station server: [employer] (3002) No Panel Informationon 11-09 Albumin/Glob Ratio 1.5 (1.0-2.5 ) [facility] Comment on above: Note: Responsible Ob train station server: [employer] (3002) Alkaline Phos 116 U/L High (35-104 ) [facility] Comment on above: Note: Responsible Ob train station server: [employer]FILE (3002) Reported Physicians See Note [facility] Comment on above: Note: Reported Physi cians:Ordering: Latia Sparks OMARAttending: Edgar NadiraReferring: Sparks Latia CREATININE URINEon 3 URINE CREAT 31.31 mg/dL Normal 20.00-300.0 0 [facility] Comment on above: Performed By: #### C REAU #### [facility] [address] [place] [address] Dr. Shashi Jimenez MICROALBUMIN, RAND URon 09-17 mALB 14.3 mg/L Normal <=30.0 [facility] Comment on above: Performed By: #### M ALBR #### [facility] [address] [address] [address] Shashi Jimenez PROF 14(COMP METB)on 023 Albumin [Mass/Vol] 3.7 g/dL Normal 3.4-5.0 [facility] Comment on above: Performed By: #### C MP #### [facility] [address] [address] [address] Shashi Jimenez Albumin/Globulin [Mass ratio] 0.9 {ratio} Normal [facility] Comment on above: Performed By: #### C MP #### [facility] [address] [address] [address] Shashi Jimenez ALP [Catalytic activity/Vol] 109 U/L Normal 46-116 [facility] Comment on above: Performed By: #### C MP #### [facility] [address] [address] [address] Shashi Jimenez ALT [Catalytic activity/Vol] 39 U/L Normal 14-59 [facility] Comment on above: Performed By: #### C MP #### [facility] [address] [address] [address] Shashi Jimenez Anion gap [Moles/Vol] 12.0 mmol/L Normal [facility] Comment on above: Performed By: #### C MP #### [facility] [address] [address] [address] Shashi Jimenez AST [Catalytic activity/Vol] 35 U/L Normal 15-37 [facility] Comment on above: Performed By: #### C MP #### [facility] [address] [place] [address] Dr. Shashi Jimenez Bilirubin [Mass/Vol] 0.3 mg/dL Normal 0.2-1.0 [facility] Comment on above: Performed By: #### C MP #### [facility] [address] [place] [address] Dr. Shashi Jimenez Calcium [Mass/Vol] 10.5 mg/dL Critically high 8.5-10.1 [facility] Comment on above: Performed By: #### C MP #### [facility] [address] [place] [address] Dr. Shashi Jimenez Chloride [Moles/Vol] 103 mmol/L Normal 98-107 [facility] Comment on above: Performed By: #### C MP #### [facility] [address] [address] [address] Shashi Jimenez CO2 [Moles/Vol] 29.1 mmol/L Normal 21.0-32.0 [facility] Comment on above: Performed By: #### C MP #### [facility] [address] [place] [address] Dr. Shashi Jimenez Creatinine [Mass/Vol] 1.04 mg/dL Critically high 0.55-1.02 [facility] Comment on above: Performed By: #### C MP #### [facility] [address] [address] [address] Shashi Jimenez EGFR-AF MALAWIAN >60 Normal >=60 [facility] Comment on above: Performed By: #### C MP #### [facility] [address] [address] [address] Shashi Jiemnez EGFR-NON AF MALAWIAN 52 mL/min/1.73m2 Critically low >=60 [facility] Comment on above: Performed By: #### C MP #### [facility] [address] [address] [address] Shashi Jimenez Globulin (S) [Mass/Vol] 4.2 g/dL Normal [facility] Comment on above: Performed By: #### C MP #### [facility] [address] [address] [address] Shashi Jimenez Glucose [Mass/Vol] 258 mg/dL Critically high 74-106 [facility] Comment on above: Performed By: #### C MP #### [facility] [address] [address] [address] Shashi Jimenez Potassium [Moles/Vol] 4.1 mmol/L Normal 3.5-5.1 [facility] Comment on above: Performed By: #### C MP #### [facility] [address] [address] [address] Shashi Jimenez Protein [Mass/Vol] 7.9 g/dL Normal 6.4-8.2 [facility] Comment on above: Performed By: #### C MP #### [facility] [address] [address] [address] Shashi Jimenez Sodium [Moles/Vol] 140 mmol/L Normal 136-145 [facility] Comment on above: Performed By: #### C MP #### [facility] [address] [address] [address] Shashi Jimenez Urea nitrogen [Mass/Vol] 23.0 mg/dL Critically high 7.0-18.0 [facility] Comment on above: Performed By: #### C MP #### [facility] [address] [address] [address] Shashi Jimenez Urea nitrogen/Creatini ne [Mass ratio] 22.1 mg/mg Normal [facility] Comment on above: Performed By: #### C MP #### [facility] [address] [address] [address] Shashi Jimenez POINT OF CARE GLUCOSEon 05-0 Glucose [Mass/Vol] 97 mg/dL Normal 74-106 [facility] Comment on above: Performed By: #### P OCGLUC #### [facility] [address] [address] [address] Shashi Jimenez POINT OF CARE GLUCOSEon 03-2 Glucose [Mass/Vol] 160 mg/dL Critically high 74-106 [facility] Comment on above: Performed By: #### P OCGLUC #### [facility] [address] [address] LSPINE WO CONon [...] to prior study. Electronically authenticated by: ERIN ALEMMAGALY Date: 2022-07-27 16:56 Normal [facility] CBCon 07-24-2022 Erythrocyte distribution width (RBC) [Ratio] 14.1 % Normal 11.8-14.4 [facility] Comment on above: Performed By: #### I PF, TSHX, VD25, CBC, CP, LIPR #### [facility] [employer] [address] [place] [address] Wood Bucker: Genaro Angel MD Hematocrit (Bld) [Volume fraction] 43.9 % Normal 36.3-47.1 [facility] Comment on above: Performed By: #### I PF, TSHX, VD25, CBC, CP, LIPR #### [address] [address] Wood Bucker: Genaro Angel MD Hemoglobin (Bld) [Mass/Vol] 14.3 g/dL Normal 11.9-15.1 [facility] Comment on above: Performed By: #### I PF, TSHX, VD25, CBC, CP, LIPR #### [facility] [employer] [address] [place] [address] Wood Bucker: Genaro Angel MD MCH (RBC) [Entitic mass] 30.5 pg Normal 25.2-33.5 [facility] Comment on above: Performed By: #### I PF, TSHX, VD25, CBC, CP, LIPR #### [facility] [employer] [address] [place] [address] Wood Bucker: Genaro Angel MD MCHC (RBC) [Mass/Vol] 32.6 g/dL Normal 28.4-34.8 [facility] Comment on above: Performed By: #### I PF, TSHX, VD25, CBC, CP, LIPR #### [facility] [employer] [address] [place] [address] Wood Bucker: Genaro Angel MD MCV (RBC) [Entitic vol] 93.6 fL Normal 82.6-102.9 [facility] Comment on above: Performed By: #### I PF, TSHX, VD25, CBC, CP, LIPR #### [address] [address] Wood Bucker: Genaro Angel MD NRBC Automated 0.0 per 100 WBC Normal 0.0 [facility] Comment on above: Performed By: #### I PF, TSHX, VD25, CBC, CP, LIPR #### [address] [address] Wood Bucker: Genaro Angel MD Platelet Count See Reflexed IPF Result Normal 138-453 [facility] Comment on above: Performed By: #### I PF, TSHX, VD25, CBC, CP, LIPR #### [address] [address] Wood Bucker: Genaro Angel MD RBC (Bld) [#/Vol] 4.69 10*6/uL Normal 3.95-5.11 [facility] Comment on above: Performed By: #### I PF, TSHX, VD25, CBC, CP, LIPR #### [address] [address] Wood Bucker: Genaro Angel MD WBC (Bld) [#/Vol] 8.4 10*3/uL Normal 3.5-11.3 [facility] Comment on above: Performed By: #### I PF, TSHX, VD25, CBC, CP, LIPR #### [address] [address] Wood Bucker: Genaro Angel MD Hematocrit (Bld) [Volume fraction] 43.9 % 36.3 - 47.1 % [facility] Hemoglobin (Bld) [Mass/Vol] 14.3 g/dL 11.9 - 15.1 g/dL [facility] MCH (RBC) [Entitic mass] 30.5 pg 25.2 - 33.5 pg [facility] MCHC (RBC) [Mass/Vol] 32.6 g/dL 28.4 - 34.8 g/dL [facility] MCV (RBC) [Entitic vol] 93.6 fL 82.6 - 102.9 fL [facility] NRBC Automated 0.0 0.0 per 100 WBC [facility] Platelet distribution width (Bld) [Ratio] 14.1 % 11.8 - 14.4 % [facility] Platelets (Bld) [#/Vol] See Reflexed IPF Result [facility] RBC (Bld) [#/Vol] 4.69 10*6/uL 3.95 - 5.1 1 m/uL [facility] WBC (Bld) [#/Vol] 8.4 10*3/uL [facility] Comp Metabolic Profon 2022 Albumin [Mass/Vol] 4.3 g/dL Normal 3.5-5.2 [facility] Comment on above: Performed By: #### I PF, TSHX, VD25, CBC, CP, LIPR #### [employer] [address] [place] [address] Wood Bucker: Genaro Angel MD Albumin/Glob Ratio 1.3 Normal 1.0-2.5 [facility] Comment on above: Performed By: #### I PF, TSHX, VD25, CBC, CP, LIPR #### [facility] [address] [place] [address] [phone] Wood Bucker: Genaro Angel MD Alkaline Phos 116 U/L High 35-104 [facility] Comment on above: Performed By: #### I PF, TSHX, VD25, CBC, CP, LIPR #### [employer] [address] [place] [address] [phone] Wood Bucker: Genaro Angel MD ALT [Catalytic activity/Vol] 27 U/L Normal 5-33 [facility] Comment on above: Performed By: #### I PF, TSHX, VD25, CBC, CP, LIPR #### [address] [address] Wood Bucker: Genaro Angel MD Anion gap [Moles/Vol] 15 mmol/L Normal 9-17 [facility] Comment on above: Performed By: #### I PF, TSHX, VD25, CBC, CP, LIPR #### [address] [address] Wood Bucker: Genaro Angel MD AST [Catalytic activity/Vol] 30 U/L Normal <32 [facility] Comment on above: Performed By: #### I PF, TSHX, VD25, CBC, CP, LIPR #### [address] [address] Wood Bucker: Genaro Angel MD Bilirubin [Mass/Vol] 0.4 mg/dL Normal 0.3-1.2 [facility] Comment on above: Performed By: #### I PF, TSHX, VD25, CBC, CP, LIPR #### [address] [address] Wood Bucker: Genaro Angel MD Calcium [Mass/Vol] 10.9 mg/dL High 8.6-10.4 [facility] Comment on above: Performed By: #### I PF, TSHX, VD25, CBC, CP, LIPR #### [address] [address] Wood Bucker: Genaro Angel MD Chloride [Moles/Vol] 100 mmol/L Normal 98-107 [facility] Comment on above: Performed By: #### I PF, TSHX, VD25, CBC, CP, LIPR #### [address] [address] Wood Bucker: Genaro Angel MD CO2 [Moles/Vol] 20 mmol/L Normal 20-31 [facility] Comment on above: Performed By: #### I PF, TSHX, VD25, CBC, CP, LIPR #### [address] [address] Wood Bucker: Genaro Angel MD Creatinine [Mass/Vol] 0.95 mg/dL High 0.50-0.90 [facility] Comment on above: Performed By: #### I PF, TSHX, VD25, CBC, CP, LIPR #### [address] [address] Wood Bucker: Genaro Angel MD GFR/1.73 sq M.predicted among non-blacks MDRD (S/P/Bld) [Vol rate/Area] mL/min/{1.73_m2} Normal >60 [facility] Comment on above: Result Comment: These [...] PF, TSHX, VD25, CBC, CP, LIPR #### [address] [address] Wood Bucker: Genaro Angel MD Glucose [Mass/Vol] 259 mg/dL High 70-99 [facility] Comment on above: Performed By: #### I PF, TSHX, VD25, CBC, CP, LIPR #### [facility] [employer] [address] [place] [address] Wood Bucker: Genaro Angel MD Potassium [Moles/Vol] 4.7 mmol/L Normal 3.7-5.3 [facility] Comment on above: Performed By: #### I PF, TSHX, VD25, CBC, CP, LIPR #### [facility] [place] [address] Wood Bucker: Genaro Angel MD Protein [Mass/Vol] 7.6 g/dL Normal 6.4-8.3 [facility] Comment on above: Performed By: #### I PF, TSHX, VD25, CBC, CP, LIPR #### [facility] [place] [address] Wood Bucker: Genaro Angel MD Sodium [Moles/Vol] 135 mmol/L Normal 135-144 [facility] Comment on above: Performed By: #### I PF, TSHX, VD25, CBC, CP, LIPR #### [facility] [address] [place] [address] Wood Bucker: Genaro Angel MD Urea nitrogen [Mass/Vol] 33 mg/dL High 8-23 [facility] Comment on above: Performed By: #### I PF, TSHX, VD25, CBC, CP, LIPR #### [facility] [employer] [address] [place] [address] Wood Bucker: Genaro Angel MD Comprehensive Metabolic Pane [facility] 07-24-2022 Albumin [Mass/Vol] 4.3 g/dL 3.5 - 5.2 g/dL [facility] Albumin/Globulin [Mass ratio] 1.3 {ratio} 1.0 - 2.5 [facility] ALP [Catalytic activity/Vol] 116 U/L High 35 - 104 U/L [facility] ALT [Catalytic activity/Vol] 27 U/L 5 - 33 U/L [facility] Anion gap [Moles/Vol] 15 mmol/L 9 - 17 mmol/L [facility] AST [Catalytic activity/Vol] 30 U/L NINF - 32 U/L [facility] Bilirubin [Mass/Vol] 0.4 mg/dL 0.3 - 1.2 mg/dL [facility] Calcium [Mass/Vol] 10.9 mg/dL High 8.6 - 10.4 mg/dL [facility] Chloride [Moles/Vol] 100 mmol/L 98 - 107 mmol/L [facility] CO2 [Moles/Vol] 20 mmol/L 20 - 31 mmol/L [facility] Creatinine [Mass/Vol] 0.95 mg/dL High 0.50 - 0.90 mg/dL [facility] GFR/1.73 sq M.predicted MDRD (S/P/Bld) [Vol rate/Area] - PINF [facility] Comment on above: These results [...] 259 mg/dL High 70 - 99 mg/dL [facility] Potassium [Moles/Vol] 4.7 mmol/L 3.7 - 5.3 mmol/L [facility] Protein [Mass/Vol] 7.6 g/dL 6.4 - 8.3 g/dL [facility] Sodium [Moles/Vol] 135 mmol/L 135 - 144 mmol/L [facility] Urea nitrogen [Mass/Vol] 33 mg/dL High 8 - 23 mg/dL [facility] Immature Platelet Fractionon 07-24-2022 Platelet, Fluorescence 158 [facility] Comment on above: ORDERED BY LAB Platelet, Immature Fraction 4.5 % 1.1 - 10.3 % [facility] Comment on above: ORDERED BY LAB [facility] Lipid Panelon 07-24-2022 Cholesterol [Mass/Vol] 153 mg/dL NINF - 200 mg/dL [facility] Comment on above: Cholesterol Guidelines: <200 Desirable 200-240 Borderline >240 Undesirable Cholesterol in HDL [Mass/Vol] 29 mg/dL Low 40 - PINF mg/dL [facility] Comment on above: HDL Guidelines: <40 Undesirable 40-59 Borderline >59 Desirable Cholesterol in LDL [Mass/Vol] 60 mg/dL 0 - 130 mg/dL [facility] Comment on above: LDL Guidelines: <100 Desirable 100-129 Near to/above Desirable 130-159 Borderline >159 Undesirable Direct (measured) LDL and calculated LDL are not interchangeable tests. Cholesterol.total /Cholesterol in HDL [Mass ratio] 5.3 {ratio} High NINF - 5 [facility] Triglyceride [Mass/Vol] 319 mg/dL High NINF - 150 mg/dL [facility] Comment on above: Triglyceride Guidelines: <150 Desirable 150-199 Borderline 200-499 High >499 Very high Based on AHA Guidelines for fasting triglyceride, February 2012. Lipid Profileon 07-24-2022 Cholesterol [Mass/Vol] 153 mg/dL Normal <200 [facility] Comment on above: Result Comment: Cholesterol Guidelines: <200 Desirable 200-240 Borderline >240 Undesirable Performed By: #### I PF, TSHX, VD25, CBC, CP, LIPR #### [facility] [address] [place] [address] [phone] Wood Bucker: Genaro Angel MD Cholesterol in HDL [Mass/Vol] 29 mg/dL Low >40 [facility] Comment on above: Result Comment: HDL Guidelines: <40 Undesirable 40-59 Borderline >59 Desirable Performed By: #### I PF, TSHX, VD25, CBC, CP, LIPR #### [facility] [address] [place] [address] [phone] Wood Bucker: Genaro Angel MD Cholesterol in LDL [Mass/Vol] 60 mg/dL Normal 0-130 [facility] Comment on above: Result Comment: LDL Guidelines: <100 Desirable 100-129 Near to/above Desirable 130-159 Borderline >159 Undesirable Direct (measured) LDL and calculated LDL are not interchangeable tests. Performed By: #### I PF, TSHX, VD25, CBC, CP, LIPR #### [facility] [address] [place] [address] [phone] Wood Bucker: Genaro Angel MD Cholesterol.total /Cholesterol in HDL [Mass ratio] 5.3 {ratio} High <5 [facility] Comment on above: Performed By: #### I PF, TSHX, VD25, CBC, CP, LIPR #### [address] [phone] Wood Bucker: Genaro Angel MD Triglyceride [Mass/Vol] 319 mg/dL High <150 [facility] Comment on above: Result Comment: Triglyceride Guidelines: <150 Desirable 150-199 Borderline 200-499 High >499 Very high Based on AHA Guidelines for fasting triglyceride, February 2012. Performed By: #### I PF, TSHX, VD25, CBC, CP, LIPR #### [address] [phone] Wood Bucker: Genaro Angel MD No Panel Informationon 07-24 Interpretation and review of laboratory results Abnormal [facility] PLT, Immature Fract.on 07-24 Platelet, Fluoresc. 158 k/uL Normal 138-453 [facility] Comment on above: Result Comment: ORDE RED BY LAB Performed By: #### I PF, TSHX, VD25, CBC, CP, LIPR #### [address] [phone] Wood Bucker: Genaro Angel MD PLT, Immature Fract. 4.5 % Normal 1.1-10.3 [facility] Comment on above: Result Comment: ORDE RED BY LAB Performed By: #### I PF, TSHX, VD25, CBC, CP, LIPR #### [address] [phone] Wood Bucker: Genaro Angel MD TSH w/reflex to FT4on 2022 Thyroid Stim. Horm. 1.50 uIU/mL Normal 0.30-5.00 [facility] Comment on above: Performed By: #### I PF, TSHX, VD25, CBC, CP, LIPR #### [facility] [place], [place] [phone] Wood Bucker: Genaro Angel MD TSH with Reflexon 07-24-2022 TSH Qn 1.50 m[IU]/L [facility] Vitamin D 25 Hydroxyon 07-24 25-hydroxyvitamin D3 [Mass/Vol] 92.8 ng/mL 29.9 - PINF ng/mL [facility] Comment on above: Reference Range: Vitamin D status Range Deficiency <20 ng/mL Mild Deficiency 20-30 ng/mL Sufficiency 30-100 ng/mL Toxicity >100 ng/mL [facility] Vitamin D 25 OHon 07-24-2022 Vitamin D 25 [place] 92.8 ng/mL Normal >29.9 [facility] Comment on above: Result Comment: Reference Range: Vitamin D status Range Deficiency <20 ng/mL Mild Deficiency 20-30 ng/mL Sufficiency 30-100 ng/mL Toxicity >100 ng/mL Performed By: #### I PF, TSHX, VD25, CBC, CP, LIPR #### [facility] [address] [place] [address] [phone] Wood Bucker: Genaro Angel MD Laboratory - Chemistry and C hemistry - challengeon 07-23-2022 Albumin [Mass/Vol] 4.3 g/dL (3.5-5.2 ) [facility] Comment on above: Note: Responsible Ob train station server: [employer] (3002) ALT [Catalytic activity/Vol] 27 U/L (5-33 ) [facility] Comment on above: Note: Responsible Ob train station server: [employer] (3002) Anion gap [Moles/Vol] 15 mmol/L (9-17 ) [facility] Comment on above: Note: Responsible Ob train station server: [employer] (3002) AST [Catalytic activity/Vol] 30 U/L (<32 ) [facility] Comment on above: Note: Responsible Ob train station server: [employer] (3002) Bilirubin [Mass/Vol] 0.4 mg/dL (0.3-1.2 ) [facility] Comment on above: Note: Responsible Ob train station server: [employer] (3002) Calcium [Mass/Vol] 10.9 mg/dL High (8.6-10.4 ) [facility] Comment on above: Note: Responsible Ob train station server: [employer] (3002) Chloride [Moles/Vol] 100 mmol/L (98-107 ) [facility] Comment on above: Note: Responsible Ob train station server: [employer] (3002) Cholesterol [Mass/Vol] 153 mg/dL (<200 ) [facility] Comment on above: Note: Cholesterol Gu idelines:<200 Pevhnhykw505-551 Borderline>240 UndesirableResponsible Observer: [employer] (3002) Cholesterol.total /Cholesterol in HDL [Mass ratio] 5.3 {ratio} High (<5 ) [facility] Comment on above: Note: Responsible Ob train station server: [employer] (3002) CO2 [Moles/Vol] 20 mmol/L (20-31 ) [facility] Comment on above: Note: Responsible Ob train station server: [employer] (3002) Creatinine [Mass/Vol] 0.95 mg/dL High (0.50-0.90 ) [facility] Comment on above: Note: Responsible Ob train station server: [employer] (3002) GFR/1.73 sq M.predicted among non-blacks MDRD (S/P/Bld) [Vol rate/Area] mL/min/{1.73_m2} (>60 ) [facility] Comment on above: Note: These [...] Glucose [Mass/Vol] 259 mg/dL High (70-99 ) [facility] Comment on above: Note: Responsible Ob train station server: [employer] (3002) Magnesium [Mass/Vol] 29 mg/dL Low (>40 ) [facility] Comment on above: Note: HDL Guidelines :<40 Rebdahfmagr18-96 Borderline>59 DesirableResponsible Observer: [employer] (3002) Magnesium [Mass/Vol] 60 mg/dL (0-130 ) [facility] Comment on above: Note: LDL Guidelines :<100 [id number] Near to/above [id number] Borderline>159 UndesirableDirect (measured) LDL and calculated LDL are not interchangeable tests.Responsible Observer: [employer] (3002) Potassium [Moles/Vol] 4.7 mmol/L (3.7-5.3 ) [facility] Comment on above: Note: Responsible Ob train station server: [employer] (3002) Protein [Mass/Vol] 7.6 g/dL (6.4-8.3 ) [facility] Comment on above: Note: Responsible Ob train station server: [employer] (3002) Sodium [Moles/Vol] 135 mmol/L (135-144 ) [facility] Comment on above: Note: Responsible Ob train station server: [employer] (3002) Triglyceride [Mass/Vol] 319 mg/dL High (<150 ) [facility] Comment on above: Note: Triglyceride G uidelines:<150 Sagqzhrzp422-758 Lwftqfizel401-557 High>499 Very highBased on AHA Guidelines for fasting triglyceride, February 2012.Responsible Observer: [employer] (3002) Urea nitrogen [Mass/Vol] 33 mg/dL High (8-23 ) [facility] Comment on above: Note: Responsible Ob train station server: [employer] (3002) Laboratory - Hematology and Cell countson 07-23-2022 Erythrocyte distribution width (RBC) [Ratio] 14.1 % (11.8-14.4 ) [facility] Comment on above: Note: Responsible Ob train station server: [employer] (1219) Hematocrit (Bld) [Volume fraction] 43.9 % (36.3-47.1 ) [facility] Comment on above: Note: Responsible Ob train station server: [employer] (1219) Hemoglobin (Bld) [Mass/Vol] 14.3 g/dL (11.9-15.1 ) [facility] Comment on above: Note: Responsible Ob train station server: [employer] (1219) MCH (RBC) [Entitic mass] 30.5 pg (25.2-33.5 ) [facility] Comment on above: Note: Responsible Ob train station server: [employer] (1219) MCHC (RBC) [Mass/Vol] 32.6 g/dL (28.4-34.8 ) [facility] Comment on above: Note: Responsible Ob train station server: [employer] (1219) MCV (RBC) [Entitic vol] 93.6 fL (82.6-102.9 ) [facility] Comment on above: Note: Responsible Ob train station server: [employer] (1218) RBC (Bld) [#/Vol] 4.69 10*6/uL (3.95-5.11 ) [facility] Comment on above: Note: Responsible Ob train station server: [employer] (121) WBC (Bld) [#/Vol] 8.4 10*3/uL (3.5-11.3 ) [facility] Comment on above: Note: Responsible Ob train station server: [employer] (121) No Panel Informationon 07-23 Albumin/Glob Ratio 1.3 (1.0-2.5 ) [facility] Comment on above: Note: Responsible Ob train station server: [employer] (3002) Alkaline Phos 116 U/L High (35-104 ) [facility] Comment on above: Note: Responsible Ob train station server: [employer] (3002) NRBC Automated 0.0 per_100_WBC (0.0 ) [facility] Comment on above: Note: Responsible Ob train station server: [employer] (1218) Platelet Count See Reflexed IPF Res ult k/uL (138-453 ) [facility] Comment on above: Note: Responsible Ob train station server: [employer] (1218) Platelet, Fluoresc. 158 k/uL (138-453 ) [facility] Comment on above: Note: ORDERED BY LAB Responsible Observer: [employer] (1218) PLT, Immature Fract. 4.5 % (1.1-10.3 ) [facility] Comment on above: Note: ORDERED BY LAB Responsible Observer: [employer] ([id number]) Reported Physicians See Note [facility] Comment on above: Note: Reported Physi cians:Ordering: Sparks, Latia OMARAttending: Sparks, NadiraReferring: Sparks, Latia Thyroid Stim. Horm. 1.50 uIU/mL (0.30-5.00 ) [facility] Comment on above: Note: Responsible Ob train station server: [facility] AUTOFILE (0391) Vitamin D 25 [place] 92.8 ng/mL (>29.9 ) [facility] Comment on above: Note: Reference Rang e:Vitamin D status RangeDeficiency <20 ng/mLMild Deficiency 20-30 ng/mLSufficiency 30-100 ng/mLToxicity >100 ng/mLResponsible Observer: [facility] AUTOFILE ([id number]) MICROALB CREAT RATIO RANDOMo n 07-19-2022 mALB 43.8 mg/L Critically high <=30.0 [facility] Comment on above: Performed By: #### M CRR #### [facility] [address] [address] [address] Shashi Jimenez MALB CR RATIO 326.8 mg/g Critically high 0.0-29.9 [facility] Comment on above: Performed By: #### M CRR #### [facility] [address] [address] [address] Shashi Jimenez MALB CR RATIO RANGE SEE BELOW Normal [facility] Comment on above: Result Comment: NO M ICROALBUMINURIA 0-29 MG/G CLINICAL MICROALBUMINURIA 30-300 MG/G MACROALBUMINURIA >300 MG/G Performed By: #### M CRR #### [facility] [address] [place], [place] [address] Dr. Shashi Jimenez URINE CREAT 134.02 mg/dL Normal 20.00-300.0 0 [facility] Comment on above: Performed By: #### M CRR #### [facility] [address] [place], [place] [address] Dr. Shashi Jimenez PROF 14(COMP METB)on 023 Albumin [Mass/Vol] 3.8 g/dL Normal 3.4-5.0 [facility] Comment on above: Performed By: #### C MP #### [facility] [address] [address] [address] Shashi Jimenez Albumin/Globulin [Mass ratio] 1.0 {ratio} Normal [facility] Comment on above: Performed By: #### C MP #### [facility] [address] [address] [address] Shashi Jimenez ALP [Catalytic activity/Vol] 83 U/L Normal 46-116 [facility] Comment on above: Performed By: #### C MP #### [facility] [address] [place] [address] Dr. Shashi Jimenez ALT [Catalytic activity/Vol] 42 U/L Normal 14-59 [facility] Comment on above: Performed By: #### C MP #### [facility] [address] [place] [address] Dr. Shashi Jimenez Anion gap [Moles/Vol] 14.0 mmol/L Normal [facility] Comment on above: Performed By: #### C MP #### [facility] [address] [place] [address] Dr. Shashi Jimenez AST [Catalytic activity/Vol] 42 U/L Critically high 15-37 [facility] Comment on above: Performed By: #### C MP #### [facility] [address] [place] [address] Dr. Shashi Jimenez Bilirubin [Mass/Vol] 0.4 mg/dL Normal 0.2-1.0 [facility] Comment on above: Performed By: #### C MP #### [facility] [address] [place] [address] Dr. Shashi Jimenez Calcium [Mass/Vol] 10.8 mg/dL Critically high 8.5-10.1 [facility] Comment on above: Performed By: #### C MP #### [facility] [facility] [address] [place] [address] Dr. Shashi Jimenez Chloride [Moles/Vol] 99 mmol/L Normal 98-107 [facility] Comment on above: Performed By: #### C MP #### [facility] [address] [address] [address] Shashi Jimenez CO2 [Moles/Vol] 27.0 mmol/L Normal 21.0-32.0 [facility] Comment on above: Performed By: #### C MP #### [facility] [address] [address] [address] Shashi Jimenez Creatinine [Mass/Vol] 0.92 mg/dL Normal 0.55-1.02 [facility] Comment on above: Performed By: #### C MP #### [facility] [address] [address] [address] Shashi Jimenez EGFR-AF MALAWIAN >60 Normal >=60 [facility] Comment on above: Performed By: #### C MP #### [facility] [address] [place] [address] Dr. Shashi Jimenez EGFR-NON AF MALAWIAN =60 Normal >=60 [facility] Comment on above: Performed By: #### C MP #### [facility] [address] [place] [address] Dr. Shashi Jimenez Globulin (S) [Mass/Vol] 3.9 g/dL Normal [facility] Comment on above: Performed By: #### C MP #### [facility] [address] [place] [address] Dr. Shashi Jimenez Glucose [Mass/Vol] 300 mg/dL Critically high 74-106 [facility] Comment on above: Performed By: #### C MP #### [facility] [address] [address] [address] Shashi Jimenez Potassium [Moles/Vol] 4.0 mmol/L Normal 3.5-5.1 [facility] Comment on above: Performed By: #### C MP #### [facility] [address] [place] [address] Dr. Shashi Jimenez Protein [Mass/Vol] 7.7 g/dL Normal 6.4-8.2 [facility] Comment on above: Performed By: #### C MP #### [facility] [address] [place] [address] Dr. Shashi Jimenez Sodium [Moles/Vol] 136 mmol/L Normal 136-145 [facility] Comment on above: Performed By: #### C MP #### [facility] [address] [address] [address] Shashi Jimenez Urea nitrogen [Mass/Vol] 20.0 mg/dL Critically high 7.0-18.0 [facility] Comment on above: Performed By: #### C MP #### [facility] [address] [address] [address] Shashi Jimenez Urea nitrogen/Creatini ne [Mass ratio] 21.7 mg/mg Normal [facility] Comment on above: Performed By: #### C MP #### [facility] [address] [address] [address] Shashi Jimenez XR ankle LT min 3V*on 2021 XR ankle LT min 3V* [facility] [address] [place] [address] XRay Report Signed Patient: Tunde Jack MR#: [id number] : 1950 Acct:[id number] Age/Sex: 71 / F ADM Date: 09/21/21 Loc: XDUCLY Room: Type: [facility] Attending Dr: Constantine Hernandez MD Ordering [...] Desiree Garrett M.D.09/21/2021 1:10 PM Dictation Location: [facility]--13 Transcribed By: [facility] 09/21/21 1310 Dictated By: Desiree Garrett II, MD 09/21/21 1308 Signed By: 09/21/21 1346 Normal [facility] XR ankle LT min 3V* [facility] [employer] Other XR ankle LT min 3V* [facility] [employer] Other XR ankle LT min 3V* [address] [place] [address] [employer] Other XR ankle LT min 3V* [place] [address] [employer] Other XR ankle LT min 3V* XRay Report [employer] Other XR ankle LT min 3V* Signed [employer] Other XR ankle LT min 3V* Patient: Tunde Jack MR#: [id number] [employer] Other XR ankle LT min 3V* 3475 [employer] Other XR ankle LT min 3V* : 1950 Acct:[id number] [employer] Other XR ankle LT min 3V* Age/Sex: 71 / F ADM Date: 09/21/21 [employer] Other XR ankle LT min 3V* Loc: XDUCLY Room: Type: [facility] [employer] Other XR ankle LT min 3V* Attending Dr: Constantine Hernandez MD [employer] Other XR ankle LT min 3V* Ordering Provider: Isidra Hernandez APRN [employer] Other XR ankle LT min 3V* Date of Service: 09/21/21 [employer] Other XR ankle LT min 3V* XR/XR ankle LT min 3V*: T14.90XA [employer] Other XR ankle LT min 3V* Copies to: Isidra Hernandez APRN [employer] Other XR ankle LT min 3V* Constantine Hernandez MD [employer] Other XR ankle LT min 3V* XR ankle LT min 3V* 09/21/2021 12:53 PM [employer] Other XR ankle LT min 3V* SIGNS AND SYMPTOMS: Twisting injury to left ankle with pain laterally [employer] Other XR ankle LT min 3V* PROTOCOL: Frontal, lateral, and oblique radiographs of the left ankle [employer] Other XR ankle LT min 3V* COMPARISON: None [employer] Other XR ankle LT min 3V* FINDINGS: [employer] Other XR ankle LT min 3V* The bones are in anatomic alignment. There is no evidence of acute displaced fracture. There is [employer] Other XR ankle LT min 3V* soft tissue swelling which is greatest over the lateral malleolus. The ankle mortise is preserved. [employer] Other XR ankle LT min 3V* Calcifications are noted along the Achilles tendon suspicious for a previous Achilles injury. [employer] Other XR ankle LT min 3V* XR/XR ankle LT min 3V* [employer] Other XR ankle LT min 3V* IMPRESSION: [employer] Other XR ankle LT min 3V* No acute displaced fracture. [employer] Other XR ankle LT min 3V* Diffuse soft tissue swelling greatest over the lateral malleolus. [employer] Other XR ankle LT min 3V* Calcifications are noted along the Achilles tendon suspicious for a previous Achilles injury versus [employer] Other XR ankle LT min 3V* calcific tendinosis. [employer] Other XR ankle LT min 3V* Impression dictated by: Desiree Garrett M.D.09/21/2021 1:10 PM [employer] Other XR ankle LT min 3V* Dictation Location: [facility] [employer] Other XR ankle LT min 3V* Transcribed By: MELODY 09/21/21 1310 [employer] Other XR ankle LT min 3V* Dictated By: Desiree Garrett II, MD 09/21/21 1308 [employer] Other XR ankle LT min 3V* Signed By: 09/21/21 1346 [facility] Other ED PROV NOTEon 02-27-2019 ED PROV NOTE HNO ID: [id number] Author: Nargis Raman Service: ? Author Type: Physician Type: ED Provider Notes Filed: 03/01/2019 1:58 AM Note Text: [place] [address] [facility] EMERGENCY DEPARTMENT REPORT Patient: TUNDE JACK Erika RAMAN,NARGIS Simon D.O. [id number] [age] F Status: DEP ER ED [...] By: NARGIS RAMAN D.O. Tests performed at: [facility] [address] [place], [place] [address] Normal [facility] EMERGENCY DEPARTMENT REPORTo n 02-27-2019 [place] [address] [facility] EMERGENCY DEPARTMENT REPORT Patient: TUNDE JACK NARGIS RAMAN D.O. [id number] [age] F Status: DEP ER ED [...] By: NARGIS RAMAN D.O. Tests performed at: [place] [address] [facility] LUMBAR LIMITED 2Von 02-28-20 LUMBAR LIMITED 2V [address] [address] Name: TUNDE JACK Phys: NARGIS RAMAN D.O. : [birth year] Age: 68 Sex: F Acct: [id number] Loc: ED Exam Date: 02/27/19 Status: [facility] ER Radiology No.: [id number] Unit Number: [id number] Exam # Type/Exam [id number] RAD / LUMBAR LIMITED 2V EXAM DESCRIPTION: [...] By: LEAH KIRKPATRICK M.D. Tests performed at: [place] [address] [facility] ED PROV NOTEon 01-23-2019 ED PROV NOTE HNO ID: [id number] Author: Desiree May Service: ? Author Type: Physician Type: ED Provider Notes Filed: 01/28/2019 2:46 PM Note Text: [place] [address] [facility]FORMATION [facility]NAG[facility] EMERGENCY DEPARTMENT REPORT Patient: TUNDE JACK MARK N M.D. [id number] [age] F Status: [facility] ER ED Date of Service: 01/22/19 [...] HISTORY Patient is . She is a vypv-reug-l-day smoker. PAST SURGICAL HISTORY Appendectomy, cholecystectomy, hysterectomy. [...] rash. No petechiae or purpura. Neurologic exam: Sumner Coma Scale is 15. No gross focal [...] By: DESIREE MAY M.D. Tests performed at: [facility] [address] [place], [place] [address] Normal [facility] EMERGENCY DEPARTMENT REPORTo n 01-23-2019 [place] [address] [facility]FORMATION [facility]NAGEMENT EMERGENCY DEPARTMENT REPORT Patient: TUNDE JACK DESIREE MAY M.D. [id number] [age] F Status: [facility] ER ED Date of Service: 01/22/19 [...] HISTORY Patient is . She is a dfdw-fdqw-o-day smoker. PAST SURGICAL HISTORY Appendectomy, cholecystectomy, hysterectomy. [...] DESIREE MAY M.D. Tests performed at: [address] [address] Normal [facility] ABDOMEN MULTIPLE VIEWSon ABDOMEN MULTIPLE VIEWS [address] [address] Name: TUNDE JACK Phys: DESIREE MAY M.D. : [birth year] Age: 68 Sex: F Acct: [id number] Loc: ED Exam Date: 01/22/19 Status: REG ER Radiology No.: [id number] Unit Number: [id number] Exam # Type/Exam [id number] RAD / ABDOMEN MULTIPLE VIEWS XR ABDOMEN [...] HUA PLATA M.D. Tests performed at: [address] [address] Normal [facility] BMPon 01-22-2019 Anion gap [Moles/Vol] 16.0 mmol/L Normal 15-22 [facility] Comment on above: Performed By: #### L 100.0350, L100.0030, L100.0010 #### [facility] [address] [place] [address] Calcium [Mass/Vol] 10.5 mg/dL High 8.8-10.2 [facility] Comment on above: Performed By: #### L 100.0350, L100.0030, L100.0010 #### [facility] [address] [place] [address] Chloride [Moles/Vol] 99 mmol/L Normal 98-107 [facility] Comment on above: Performed By: #### L 100.0350, L100.0030, L100.0010 #### [facility] [address] [place] [address] CO2 [Moles/Vol] 26 mmol/L Normal 22-29 [facility] Comment on above: Performed By: #### L 100.0350, L100.0030, L100.0010 #### [facility] [address] [place] [address] Creatinine [Mass/Vol] 0.90 mg/dL Normal 0.50-0.90 [facility] Comment on above: Performed By: #### L 100.0350, L100.0030, L100.0010 #### [facility] [address] [place] [address] eGFR if AFR MARICEL > 60 ml/min/1.73m2 Normal [facility] Comment on above: Result Comment: [...] L 100.0350, L100.0030, L100.0010 #### - LABORATORY [address] [place] [address] eGFR nonAFR Maricel > 60 ml/Min/1.73m2 Normal [facility] Comment on above: Performed By: #### L 100.0350, L100.0030, L100.0010 #### [facility] [address] [place] [address] Glucose [Mass/Vol] 212 mg/dL High 82-115 [facility] Comment on above: Performed By: #### L 100.0350, L100.0030, L100.0010 #### [facility] [address] [place] [address] Potassium [Moles/Vol] 4.0 mmol/L Normal 3.5-5.0 [facility] Comment on above: Performed By: #### L 100.0350, L100.0030, L100.0010 #### [facility] [address] [place] [address] Sodium [Moles/Vol] 137 mmol/L Normal 135-145 [facility] Comment on above: Performed By: #### L 100.0350, L100.0030, L100.0010 #### [facility] [address] [place] [address] Urea nitrogen [Mass/Vol] 24 mg/dL High 8-23 [facility] Comment on above: Performed By: #### L 100.0350, L100.0030, L100.0010 #### [facility] [address] [place] [address] CBCon 01-22-2019 Basophils (Bld) [#/Vol] 0.00 x10(3) Normal 0.00-0.10 [facility] Comment on above: Performed By: #### L 200.0010 #### [facility] [address] [place] [address] Basophils/100 WBC (Bld) 0.3 % Normal 0.0-1.0 [facility] Comment on above: Performed By: #### L 200.0010 #### [facility] [address] [place] [address] Eosinophils (Bld) [#/Vol] 0.20 x10(3) Normal 0.00-0.54 [facility] Comment on above: Performed By: #### L 200.0010 #### [facility] [address] [place] [address] Eosinophils/100 WBC (Bld) 3.0 % Normal 0.5-4.9 [facility] Comment on above: Performed By: #### L 200.0010 #### [facility] [address] [place] [address] Erythrocyte distribution width (RBC) [Ratio] 13.7 % Normal 12.5-15.7 [facility] Comment on above: Performed By: #### L 200.0010 #### [facility] [address] [place] [address] Hematocrit (Bld) [Volume fraction] 45.9 % Normal 36.0-48.0 [facility] Comment on above: Performed By: #### L 200.0010 #### [facility] [address] [place] [address] Hemoglobin (Bld) [Mass/Vol] 15.5 g/dL Normal 12.0-16.0 [facility] Comment on above: Performed By: #### L 200.0010 #### [facility] [address] [place] [address] Lymphocytes (Bld) [#/Vol] 1.70 x10(3) Normal 1.00-3.50 [facility] Comment on above: Performed By: #### L 200.0010 #### [facility] [address] [place] [address] Lymphocytes/100 WBC (Bld) 22.1 % Normal 16.0-48.0 [facility] Comment on above: Performed By: #### L 200.0010 #### [facility] [address] [place] [address] MCH (RBC) [Entitic mass] 30.9 pg Normal 28.5-32.9 [facility] Comment on above: Performed By: #### L 200.0010 #### [facility] [address] [place] [address] MCHC (RBC) [Mass/Vol] 33.8 g/dL Normal 33.0-36.0 [facility] Comment on above: Performed By: #### L 200.0010 #### [facility] [address] [place] [address] MCV (RBC) [Entitic vol] 91.3 fL Normal 80.0-99.0 [facility] Comment on above: Performed By: #### L 200.0010 #### [facility] [address] [place] [address] Monocytes (Bld) [#/Vol] 0.60 x10(3) Normal 0.30-0.80 [facility] Comment on above: Performed By: #### L 200.0010 #### [facility] [address] [place] [address] Monocytes/100 WBC (Bld) 8.3 % Normal 4.3-11.2 [facility] Comment on above: Performed By: #### L 200.0010 #### [facility] [address] [place] [address] Neutrophils (Bld) [#/Vol] 5.10 x10(3) Normal 1.40-6.50 [facility] Comment on above: Performed By: #### L 200.0010 #### [facility] [address] [place] [address] Neutrophils/100 WBC (Bld) 66.3 % Normal 45.0-73.0 [facility] Comment on above: Performed By: #### L 200.0010 #### [facility] [address] [place] [address] Platelet mean volume (Bld) [Entitic vol] 8.2 fL Normal 7.5-9.5 [facility] Comment on above: Performed By: #### L 200.0010 #### [facility] [address] [place] [address] Platelets (Bld) [#/Vol] 124 X10(3) Low 150-450 [facility] Comment on above: Performed By: #### L 200.0010 #### [facility] [address] [place] [address] RBC (Bld) [#/Vol] 5.02 x10(6) High 3.30-5.00 [facility] Comment on above: Performed By: #### L 200.0010 #### [facility] [address] [place] [address] WBC (Bld) [#/Vol] 7.7 x10(3) Normal 4.5-10.0 [facility] Comment on above: Performed By: #### L 200.0010 #### [facility] [address] [place] [address] [address] ABD/PEL W CONTRASTon CT ABD/PEL W CONTRAST [address] [address] Name: TUNDE JACK Phys: DESIREE MAY M.D. : [birth year] Age: 68 Sex: F Acct: [id number] Loc: ED Exam Date: 01/22/19 Status: REG Radiology No.: [id number] Unit Number: [id number] Exam # Type/Exam [id number] CT / CT ABD/PEL W CONTRAST CT [...] By: CHI CASTANEDA D.O. Tests performed at: [place] [address] Normal [facility] HEPATIC PANELon 01-22-2019 A:G RATIO 1.32 Normal 1.1-2.5 [facility] Comment on above: Performed By: #### L 100.0350, L100.0030, L100.0010 #### [facility] [address] [place] [address] Albumin [Mass/Vol] 4.1 g/dL Normal 3.5-5.2 [facility] Comment on above: Performed By: #### L 100.0350, L100.0030, L100.0010 #### [facility] [address] [place] [address] ALK. PHOS 79 U/L Normal 35-105 [facility] Comment on above: Performed By: #### L 100.0350, L100.0030, L100.0010 #### [facility] [address] [place] [address] ALT [Catalytic activity/Vol] 23 U/L Normal 5-33 [facility] Comment on above: Performed By: #### L 100.0350, L100.0030, L100.0010 #### [facility] [address] [place] [address] AST [Catalytic activity/Vol] 23 U/L Normal 5-32 [facility] Comment on above: Performed By: #### L 100.0350, L100.0030, L100.0010 #### [facility] [address] [place] [address] Bilirubin Ql (U) 0.3 mg/dL Normal 0.2-1.2 [facility] Comment on above: Performed By: #### L 100.0350, L100.0030, L100.0010 #### - LABORATORY [address] [place] [address] DIRECT BILIRUBI <0.2 Normal 0.0-0.3 [facility] Comment on above: Performed By: #### L 100.0350, L100.0030, L100.0010 #### [facility] [address] [place] [address] Globulin (S) [Mass/Vol] 3.1 g/dL Normal 1.5-4.5 [facility] Comment on above: Performed By: #### L 100.0350, L100.0030, L100.0010 #### [facility] [address] [place] [address] Protein [Mass/Vol] 7.2 g/dL Normal 6.4-8.3 [facility] Comment on above: Performed By: #### L 100.0350, L100.0030, L100.0010 #### [facility] [address] [place] [address] LIPASEon 01-22-2019 Lipase [Catalytic activity/Vol] 44 U/L Normal 13-60 [facility] Comment on above: Performed By: #### L 100.0350, L100.0030, L100.0010 #### [facility] [address] [place] [address] URINALYSISon 01-22-2019 Bilirubin Ql (U) Negative Normal NEGATIVE [facility] Comment on above: Order Comment: Urine Specimen Source+ CLEAN CATCH Performed By: #### L 200.3000 #### [facility] [address] [place] [address] 17211 Color (U) YELLOW Normal YELLOW [facility] Comment on above: Order Comment: Urine Specimen Source+ CLEAN CATCH Performed By: #### L 200.3000 #### [facility] [address] [place] [address] Glucose Ql (U) >=1000 Normal NEGATIVE [facility] Comment on above: Order Comment: Urine Specimen Source+ CLEAN CATCH Performed By: #### L 200.3000 #### [facility] [address] [place] [address] 16672 Hemoglobin Ql (U) TRACE-INTACT Normal NEGATIVE [facility] Comment on above: Order Comment: Urine Specimen Source+ CLEAN CATCH Performed By: #### L 200.3000 #### [facility] [address] [place] [address] 27146 Leukocyte esterase Test strip Ql (U) Negative Normal NEGATIVE [facility] Comment on above: Order Comment: Urine Specimen Source+ CLEAN CATCH Performed By: #### L 200.3000 #### [facility] [address] [place] [address] Nitrite Ql (U) Negative Normal NEGATIVE [facility] Comment on above: Order Comment: Urine Specimen Source+ CLEAN CATCH Performed By: #### L 200.3000 #### [facility] [address] [place] [address] pH (U) 5.5 [pH] Normal 5.0-8.0 [facility] Comment on above: Order Comment: Urine Specimen Source+ CLEAN CATCH Performed By: #### L 200.3000 #### [facility] [address] [place] [address] 15736 Protein Ql (U) Negative Normal NEGATIVE [facility] Comment on above: Order Comment: Urine Specimen Source+ CLEAN CATCH Performed By: #### L 200.3000 #### [facility] [address] [place] [address]3968 URINE APPEARANC CLEAR Normal CLEAR [facility] Comment on above: Order Comment: Urine Specimen Source+ CLEAN CATCH Performed By: #### L 200.3000 #### [facility] [address] [place] [address]5947 URINE KETONE Negative Normal NEGATIVE [facility] Comment on above: Order Comment: Urine Specimen Source+ CLEAN CATCH Performed By: #### L 200.3000 #### [facility] [address] [place] [address] 81089 URINE SPECIFIC <=1.005 Normal 1.001-1.035 [facility] Comment on above: Order Comment: Urine Specimen Source+ CLEAN CATCH Performed By: #### L 200.3000 #### [facility] [address] [place] [address] 23638 URINE UROBILINO 0.2 EU/DL Normal 0.2-1.0 [facility] Comment on above: Order Comment: Urine Specimen Source+ CLEAN CATCH Performed By: #### L 200.3000 #### [facility] [address] [place] [address] 48062 [id number] 01-15-2019 HbA1c (Bld) [Mass fraction] 7.2 % High 4.3-6.1 [facility] Comment on above: Result Comment: Estimated Average Glucose: HgbA1C % mg/dL 4.0 68 5.0 97 6.0 125 7.0 154 8.0 183 9.0 212 10.0 240 Source: [place] [employer] web site, 2017. Performed By: #### L 200.2000 #### [facility] [address] [place] [address] 41929 LIPID PANELon 01-15-2019 Cholesterol [Mass/Vol] 158 mg/dL Normal 130-200 [facility] Comment on above: Order Comment: ADD O N Performed By: #### L 100.0040 #### [facility] [address] [place] [address] 27806 Cholesterol in HDL [Mass/Vol] 30 mg/dL [facility] Comment on above: Order Comment: [...] #### L 100.0040 #### [facility] [address] [place] [address] 81173 Cholesterol in LDL [Mass/Vol] 55 mg/dL [facility] Comment on above: Order Comment: ADD O N Result Comment: LDL: OPTIMAL FOR PEOPLE AT VERY HIGH RISK <70 OPTIMAL <100 NEAR OPTIMAL 100-129 BORDERLINE HIGH 130-159 HIGH 160-189 VERY HIGH >=190 Source: 2009 NCEP ATP III, ADA Guidelines Reviewed: August, Performed By: #### L 100.0040 #### [facility] [address] [place] [address] 43498 Cholesterol in LDL/Cholesterol in HDL [Mass ratio] 1.[address] [facility] Comment on above: Order Comment: ADD O N Performed By: #### L 100.0040 #### [facility] [address] [place] [address] 54643 Cholesterol in VLDL [Mass/Vol] 73 mg/dL High 6-40 [facility] Comment on above: Order Comment: ADD O N Performed By: #### L 100.0040 #### [facility] [address] [place] [address] 91206 Triglyceride [Mass/Vol] 365 mg/dL [facility] Comment on above: Order Comment: ADD O N Result Comment: TRIG : DESIRABLE: <150 mg/dL Performed By: #### L 100.0040 #### [facility] [address] [place] [address] 17331 Hoda 01-14-2019 ALT [Catalytic activity/Vol] 29 U/L Normal - [facility] Comment on above: Performed By: #### L 100.0010, L100.0240, L100.0250 #### [facility] [address] [place] [address] 76021 Genesis 01-14-2019 AST [Catalytic activity/Vol] 30 U/L Normal - [facility] Comment on above: Performed By: #### L 100.0010, L100.0240, L100.0250 #### [facility] [address] [place] [address] 43824 BMPon 01-14-2019 Anion gap [Moles/Vol] 16.6 mmol/L Normal - [facility] Comment on above: Performed By: #### L 100.0010, L100.0240, L100.0250 #### [facility] [address] [place] [address] 37720 Calcium [Mass/Vol] 10.3 mg/dL High 8.8-10.2 [facility] Comment on above: Performed By: #### L 100.0010, L100.0240, L100.0250 #### [facility] [address] [place] [address] 50500 Chloride [Moles/Vol] 98 mmol/L Normal 98-107 [facility] Comment on above: Performed By: #### L 100.0010, L100.0240, L100.0250 #### [facility] [address] [place] [address] 49055 CO2 [Moles/Vol] 28 mmol/L Normal - [facility] Comment on above: Performed By: #### L 100.0010, L100.0240, L100.0250 #### [facility] - LABORATORY [address] [place] [address] 64170 Creatinine [Mass/Vol] 0.74 mg/dL Normal 0.50-0.90 [facility] Comment on above: Performed By: #### L 100.0010, L100.0240, L100.0250 #### [facility] [address] [place] [address] 60404 eGFR if AFR MARICEL > 60 ml/min/1.73m2 Normal [facility] Comment on above: Result Comment: [...] By: #### L 100.0010, L100.0240, L100.0250 #### [facility] [address] [place] [address] 31463 eGFR nonAFR Maricel > 60 ml/Min/1.73m2 Normal [facility] Comment on above: Performed By: #### L 100.0010, L100.0240, L100.0250 #### [facility] [address] [place] [address] 94005 Glucose [Mass/Vol] 208 mg/dL High 82-115 [facility] Comment on above: Performed By: #### L 100.0010, L100.0240, L100.0250 #### [facility] [address] [place] [address] Potassium [Moles/Vol] 4.6 mmol/L Normal 3.5-5.0 [facility] Comment on above: Performed By: #### L 100.0010, L100.0240, L100.0250 #### [facility] [address] [place] [address] 03352 Sodium [Moles/Vol] 138 mmol/L Normal 135-145 [facility] Comment on above: Performed By: #### L 100.0010, L100.0240, L100.0250 #### [facility] [address] [place] [address] 38856 Urea nitrogen [Mass/Vol] 16 mg/dL Normal 8-23 [facility] Comment on above: Performed By: #### L 100.0010, L100.0240, L100.0250 #### [facility] [address] [place] [address] 59293 [facility] Anion gap [Moles/Vol] 19.0 mmol/L Normal 15-22 [facility] Comment on above: Performed By: #### L 100.0010 #### [facility] [address] [place] [address] 69939 Calcium [Mass/Vol] 10.0 mg/dL Normal 8.8-10.2 [facility] Comment on above: Performed By: #### L 100.0010 #### [facility] [address] [place] [address] 09906 Chloride [Moles/Vol] 97 mmol/L Low 98-107 [facility] Comment on above: Performed By: #### L 100.0010 #### [facility] [address] [place] [address] 24377 CO2 [Moles/Vol] 26 mmol/L Normal 22-29 [facility] Comment on above: Performed By: #### L 100.0010 #### [facility] [address] [place] [address] 04253 Creatinine [Mass/Vol] 0.98 mg/dL High 0.50-0.90 [facility] Comment on above: Performed By: #### L 100.0010 #### [facility] [address] [place] [address] 38488 eGFR if AFR MARICEL > 60 ml/min/1.73m2 Normal [facility] Comment on above: Result Comment: [...] #### L 100.0010 #### [facility] [address] [place] [address] 06791 eGFR nonAFR Maricel 57 Normal [facility] Comment on above: Performed By: #### L 100.0010 #### [facility] [address] [place] [address] 91901 Glucose [Mass/Vol] 171 mg/dL High 82-115 [facility] Comment on above: Performed By: #### L 100.0010 #### [facility] [address] [place] [address] 04673 Potassium [Moles/Vol] 4.0 mmol/L Normal 3.5-5.0 [facility] Comment on above: Performed By: #### L 100.0010 #### [facility] [address] [place] [address] 98458 Sodium [Moles/Vol] 138 mmol/L Normal 135-145 [facility] Comment on above: Performed By: #### L 100.0010 #### [facility] [address] [place] [address] [place] [address] Urea nitrogen [Mass/Vol] 22 mg/dL Normal 8-23 [facility] Comment on above: Performed By: #### L 100.0010 #### [facility] [address] [place] [address] [place] [address] PTHon 11-12-2018 PTH 26.5 pg/mL Normal 15-65 [facility] Comment on above: Performed By: #### L 304.0135 #### [facility] [address] [place] [address] [place] [address] BMPon 10-16-2018 Anion gap [Moles/Vol] 20.3 mmol/L Normal 15-22 [facility] Comment on above: Performed By: #### L 100.0010, L304.0470 #### - LABORATORY [address] [place] [address] 04496 Calcium [Mass/Vol] 10.9 mg/dL High 8.8-10.2 [facility] Comment on above: Performed By: #### L 100.0010, L304.0470 #### [facility] [address] [place] [address] 67977 Chloride [Moles/Vol] 100 mmol/L Normal 98-107 [facility] Comment on above: Performed By: #### L 100.0010, L304.0470 #### [facility] [address] [place] [address] 47554 CO2 [Moles/Vol] 27 mmol/L Normal 22-29 [facility] Comment on above: Performed By: #### L 100.0010, L304.0470 #### [facility] [address] [place] [address] 66972 Creatinine [Mass/Vol] 1.03 mg/dL High 0.50-0.90 [facility] Comment on above: Performed By: #### L 100.0010, L304.0470 #### [facility] [address] [place] [address] 62351 eGFR if AFR MARICEL > 60 ml/min/1.73m2 Normal [facility] Comment on above: Result Comment: [...] L 100.0010, L304.0470 #### [facility] [address] [place] [address] 06464 eGFR nonAFR Maricel 54 Normal [facility] Comment on above: Performed By: #### L 100.0010, L304.0470 #### [facility] [address] [place] [address] 09258 Glucose [Mass/Vol] 186 mg/dL High 82-115 [facility] Comment on above: Performed By: #### L 100.0010, L304.0470 #### [facility] [address] [place] [address] 76666 Potassium [Moles/Vol] 4.3 mmol/L Normal 3.5-5.0 [facility] Comment on above: Performed By: #### L 100.0010, L304.0470 #### [facility] [address] [place] [address] 07080 Sodium [Moles/Vol] 143 mmol/L Normal 135-145 [facility] Comment on above: Performed By: #### L 100.0010, L304.0470 #### [facility] [address] [place] [address] 15589 Urea nitrogen [Mass/Vol] 28 mg/dL High 8-23 [facility] Comment on above: Performed By: #### L 100.0010, L304.0470 #### [facility] [address] [place] [address] 87174 PTHon 10-16-2018 PTH 25.1 pg/mL Normal 15-65 [facility] Comment on above: Performed By: #### L 304.0135 #### [facility] [address] [place] [address] 67267 VITAMIN Don 10-16-2018 VITAMIN D 48.5 ng/mL Normal 30-100 [facility] Comment on above: Performed By: #### L 100.0010, L304.0470 #### [facility] [address] [place] [address] 83393 [employer] Cytology Reporton 2018 [employer] Cytology Report . Pathology ReportsAccession: Collected Date/Time: Received Date/Time: Pathologist:[id number] 05/21/2018 16:06 EST 05/21/2018 18:00 MD JOY FARMER [employer] Cytology ReportSPECIMEN:Specimen Description: Liquid Prep w/ HPVSpecimen: Cervical/EndocervicalScre ening or Diagnostic: ScreeningRELEVANT HISTORY:LMP: not givenSPECIMEN ADEQUACY:SATISFACTORY FOR EVALUATIONENDOCERVICAL/TR ANSFORMATIONAL ZONE COMPONENT PRESENTINTERPRETATION/RES ULTS:NEGATIVE FOR INTRAEPITHELIAL LESION OR MALIGNANCYADJUNCTIVE TESTING:HIGH RISK HPV DNA TESTING ORDERED, REPORT TO FOLLOW UNDER SEPARATE COVERSUGGESTIONS/EDUCATIO NAL NOTES:THIS CASE HAS BEEN REVIEWED FOR 10% Q.C. RESCREENElectronically Signed byPathology report verified by [facility].Screened by: KK DWElectronically signed by JOY Whalengn-Out Date: 05/27/2018 10:24Performing Lab: [facility], [address] [place], [place] [address]Diswestover [facility] base hospitalThe Pap test is a screening test for cervical cancer. As evidenced by published data, it is subject to both inherent false negative and false positive results. Your patient's results should be interpreted in context with pertinent clinical history including gynecological examination. Normal [facility] ([place] Comment on above: Performed By: #### G YCR ####[place] [address] HPVon 05-27-2018 HPV Interp Normal See Interp HPVN [facility] [place] Comment on above: Order Comment: Order placed by AP_HPV_ORDER rule from [id number] Result Comment: High Risk HPV Typing: NEGATIVEHPV [...] Interp HPVN Performed By: #### H PV ####[facility] [place] [address] 56648 HPV Source Cervix Normal [facility] ([place] Comment on above: Order Comment: Order placed by AP_HPV_ORDER rule from [id number] Performed By: #### H PV ####[facility] [place] [address] PROGRESSon 05-17-2018 PROGRESS HNO ID: [id number] Author: Provider [facility] Service: (none) Author Type: Physician Type: Progress Notes Filed: 05/17/2018 12:29 PM Note Text: [facility] [place] [address] FIRST CARE REPORT Patient: TUNDE JACK,-RAIMUNDO Linda.N.PSarah [id number] F Status: REG POV FC [...] 1151 121/75 05/17 115 Temp 97.6 05/17 115 97.6 05/17 115 Pulse 79 05/17 1151 79 05/17 1151 [...] Former cigarette smoker 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 o Call or return to [facility] if you experience problems relating to your visit or call [phone]. Drink lots and lots of fluids Take [...] patient and were understood. Report to the [facility] Emergency Department if any further problems occur. Diagnosis 1. Viral URI with cough *Laboratory Microbiology Date/Time Procedure - Status Source Growth 05/17 1218 Streptococcus Rapid Screen - RECD THROAT strep neg *Prescriptions Prescriptions (FC) Medication Dose/Rte/Freq Days Qty Entered Max Daily Dose Guaifenesin/Dm* 600/30 2 TAB PO BID 120 05/17/18 (Mucinex* Dm /30) 1220 Strength: 1 EACH TAB.ER.12H 05/17/18 1228 SEE SAM.N.P. << Signature on File>> Reported By: SEE SAM F.N.PSarah Signed By: ESE SAMNSarahPSarah Tests performed at: [place] [address] Normal [facility] STRP SCNon 05-17-2018 STRP SCN Performed at: [facility] Lab [address] [place] [address] STREP SCREEN NEGATIVE - CULTURE TO FOLLOW REFERENCE RANGE NORMAL RESULT IS NEGATIVE. Normal [facility] 05-17-2018 THT ORGANISM 1: NO GROUP A BETA STREP ISOLATED Normal [facility] Comment on above: Performed By: #### M 130.0700 #### [facility] [address] [place], [place] [id number] SURGICAL PATHOLOGY, CONVERTE Don 04-21-2014 [facility] Vital Signs Date Time Vital Sign Value Performing Clinician Facility 06-04-2023 10:37-0500 Body height 162.56 cm Latia Sparks [facility] Work Phone: [facility] Work Phone: 06-04-2023 10:37-0500 Body mass index (BMI) [Ratio] 35.4 kg/m2 [facility] Work Phone: 06-04-2023 10:37-0500 Body surface area Derived from formula 2 m2 Latia Sparks 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 Work Phone: [facility] Work Phone: 06-04-2023 10:37-0500 Body weight 93.44 kg Latia Sparks 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 Work Phone: [facility] Work Phone: 06-04-2023 10:37-0500 Diastolic blood pressure 80 mm[Hg] Latia Sparks 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 Work Phone: [facility] Work Phone: 06-04-2023 10:37-0500 Heart rate 96 /min Latia Sparks [employer] 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 Work Phone: [facility] Work Phone: 06-04-2023 10:37-0500 Inhaled oxygen concentration 21 % Latia Sparks 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 Work Phone: [facility] Work Phone: 06-04-2023 10:37-0500 Inhaled oxygen flow rate 0 L/min Latia Sparks 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 Work Phone: [facility] Work Phone: 06-04-2023 10:37-0500 SaO2% (BldA) [Mass fraction] 98 % Latia Sparks 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 Work Phone: [facility] Work Phone: 06-04-2023 10:37-0500 Systolic blood pressure 138 mm[Hg] Latia Sparks 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 Work Phone: [facility] Work Phone: 05-10-2023 10:03-0500 Body height 162.56 cm Latia Sparks 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 Work Phone: [facility] Work Phone: 05-10-2023 10:03-0500 Body mass index (BMI) [Ratio] 35.7 kg/m2 Latia Sparks 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 Work Phone: [facility] Work Phone: 05-10-2023 10:03-0500 Body surface area Derived from formula 2 m2 Latia Sparks 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 Work Phone: [facility] Work Phone: 05-10-2023 10:03-0500 Body temperature 97.8 [degF] Latia Sparks 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 Work Phone: [facility] Work Phone: 05-10-2023 10:03-0500 Body weight 94.26 kg Latia Sparks 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 Work Phone: [facility] Work Phone: 05-10-2023 10:03-0500 Diastolic blood pressure 76 mm[Hg] Latia Sparks 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 Work Phone: [facility] Work Phone: 05-10-2023 10:03-0500 Heart rate 103 /min Latia Sparks 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 Work Phone: [facility] Work Phone: 05-10-2023 10:03-0500 Inhaled oxygen concentration 21 % Latia Sparks 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 Work Phone: [facility] Work Phone: 05-10-2023 10:03-0500 Inhaled oxygen flow rate 0 L/min Latia Sparks 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 Work Phone: [facility] Work Phone: 05-10-2023 10:03-0500 SaO2% (BldA) [Mass fraction] 96 % Latia Sparks 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 Work Phone: [facility] Work Phone: 05-10-2023 10:03-0500 Systolic blood pressure 133 mm[Hg] Latia Sparks 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 Work Phone: [facility] Work Phone: 05-09-2023 13:36-0500 Body height 162.6 cm Pm 2 [facility] 05-09-2023 13:36-0500 Body mass index (BMI) [Ratio] 35.36 kg/m2 Pm 2 [facility] 05-09-2023 13:36-0500 Body weight 93.44 kg Pm 2 [facility] 04-18-2023 14:10-0500 Body height 162.56 cm Latia Sparks 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 Work Phone: [facility] Work Phone: 04-18-2023 14:10-0500 Body mass index (BMI) [Ratio] 35.7 kg/m2 Latia Sparks 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 Work Phone: [facility] Work Phone: 04-18-2023 14:10-0500 Body surface area Derived from formula 2 m2 Latia Sparks 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 Work Phone: [facility] Work Phone: 04-18-2023 14:10-0500 Body temperature 97.8 [degF] Latia Sparks 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 Work Phone: [facility] Work Phone: 04-18-2023 14:10-0500 Body weight 94.35 kg Latia Sparks 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 Work Phone: [facility] Work Phone: 04-18-2023 14:10-0500 Diastolic blood pressure 80 mm[Hg] Latia Sparks 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 Work Phone: [facility] Work Phone: 04-18-2023 14:10-0500 Heart rate 96 /min Latia Sparks 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 Work Phone: [facility] Work Phone: 04-18-2023 14:10-0500 Inhaled oxygen concentration 21 % Latia Sparks 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 Work Phone: [facility] Work Phone: 04-18-2023 14:10-0500 Inhaled oxygen flow rate 0 L/min Latia Sparks 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 Work Phone: [facility] Work Phone: 04-18-2023 14:10-0500 Respiratory rate 18 /min Latia Sparks 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 Work Phone: [facility] Work Phone: 04-18-2023 14:10-0500 SaO2% (BldA) [Mass fraction] 96 % Latia Sparks 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 Work Phone: [facility] Work Phone: 04-18-2023 14:10-0500 Systolic blood pressure 138 mm[Hg] Latia Sparks 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 Work Phone: [facility] Work Phone: 11-15-2022 14:24-0400 Diastolic blood pressure 82 mm[Hg] Latia Sparks 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 Work Phone: [facility] Work Phone: 11-15-2022 14:24-0400 Systolic blood pressure 142 mm[Hg] Latia Sparks 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 Work Phone: [facility] Work Phone: 11-15-2022 14:17-0400 Body height 162.56 cm Latia Sparks 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 Work Phone: [facility] Work Phone: 11-15-2022 14:17-0400 Body mass index (BMI) [Ratio] 37.4 kg/m2 Latia Sparks 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 Work Phone: [facility] Work Phone: 11-15-2022 14:17-0400 Body surface area Derived from formula 2 m2 Latia Sparks 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 Work Phone: [facility] Work Phone: 11-15-2022 14:17-0400 Body weight 98.88 kg Latia Sparks 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 Work Phone: [facility] Work Phone: 11-15-2022 14:17-0400 Diastolic blood pressure 78 mm[Hg] Latia Sparks [employer] 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 Work Phone: [facility] Work Phone: 11-15-2022 14:17-0400 Heart rate 94 /min Latia Sparks 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 Work Phone: [facility] Work Phone: 11-15-2022 14:17-0400 SaO2% (BldA) [Mass fraction] 93 % Latia Sparks 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 Work Phone: [facility] Work Phone: 11-15-2022 14:17-0400 Systolic blood pressure 143 mm[Hg] Latia Sparks 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 Work Phone: [facility] Work Phone: 08-02-2022 10:15-0400 Body height 162.56 cm Latia Sparks [employer] 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 Work Phone: [facility] Work Phone: 08-02-2022 10:15-0400 Body mass index (BMI) [Ratio] 36.7 kg/m2 Latia Sparks 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 Work Phone: [facility] Work Phone: 08-02-2022 10:15-0400 Body surface area Derived from formula 2 m2 Latia Sparks 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 Work Phone: [facility] Work Phone: 08-02-2022 10:15-0400 Body temperature 98.5 [degF] Latia Sparks [employer] 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 Work Phone: [facility] Work Phone: 08-02-2022 10:15-0400 Body weight 97.07 kg Latia Sparks 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 Work Phone: [facility] Work Phone: 08-02-2022 10:15-0400 Diastolic blood pressure 82 mm[Hg] Latia Sparks 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 Work Phone: [facility] Work Phone: 08-02-2022 10:15-0400 Heart rate 98 /min Latia Sparks 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 Work Phone: [facility] Work Phone: 08-02-2022 10:15-0400 Heart Rate Rhythm 1 1 Latia Sparks 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 Work Phone: [facility] Work Phone: 08-02-2022 10:15-0400 Inhaled oxygen concentration 21 % Latia Sparks 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 Work Phone: [facility] Work Phone: 08-02-2022 10:15-0400 Inhaled oxygen flow rate 0 L/min Latia Sparks 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 Work Phone: [facility] Work Phone: 08-02-2022 10:15-0400 Respiratory rate 18 /min Latia Sparks 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 Work Phone: [facility] Work Phone: 08-02-2022 10:15-0400 SaO2% (BldA) [Mass fraction] 96 % Latia Sparks [employer] 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 Work Phone: [facility] Work Phone: 08-02-2022 10:15-0400 Systolic blood pressure 138 mm[Hg] Latia Sparks 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 Work Phone: [facility] Work Phone: 07-23-2022 13:38-0500 Diastolic blood pressure 78 mm[Hg] Latia Sparks 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 Work Phone: [facility] Work Phone: 07-23-2022 13:38-0500 Systolic blood pressure 142 mm[Hg] Latia Sparks 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 Work Phone: [facility] Work Phone: 07-23-2022 12:13-0500 Body height 162.56 cm Latia Sparks [employer] 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 Work Phone: [facility] Work Phone: 07-23-2022 12:13-0500 Body mass index (BMI) [Ratio] 36 kg/m2 Latia Sparks 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 Work Phone: [facility] Work Phone: 07-23-2022 12:13-0500 Body surface area Derived from formula 2 m2 Latia Sparks 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 Work Phone: [facility] Work Phone: 07-23-2022 12:13-0500 Body temperature 98.3 [degF] Latia Sparks [employer] 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 Work Phone: [facility] Work Phone: 07-23-2022 12:13-0500 Body weight 95.26 kg Latia Sparks 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 Work Phone: [facility] Work Phone: 07-23-2022 12:13-0500 Diastolic blood pressure 92 mm[Hg] Latia Sparks 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 Work Phone: [facility] Work Phone: 07-23-2022 12:13-0500 Heart rate 118 /min Latia Sparks 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 Work Phone: [facility] Work Phone: 07-23-2022 12:13-0500 Heart Rate Rhythm 1 1 Latia Sparks 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 Work Phone: [facility] Work Phone: 07-23-2022 12:13-0500 Inhaled oxygen concentration 21 % Latia Sparks 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 Work Phone: [facility] Work Phone: 07-23-2022 12:13-0500 Inhaled oxygen flow rate 0 L/min Altia Sparks 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 Work Phone: [facility] Work Phone: 07-23-2022 12:13-0500 Respiratory rate 21 /min Latia Sparks 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 Work Phone: [facility] Work Phone: 07-23-2022 12:13-0500 SaO2% (BldA) [Mass fraction] 96 % Latia Sparks [employer] 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 Work Phone: [facility] Work Phone: 03-06-2023 12:13-0500 Systolic blood pressure 168 mm[Hg] Latia MAYORGA Work Phone: [facility] Work Phone: 09-21-2021 13:25-0400 Body height 162.56 cm Isidra Hernandez Other [facility] Other 09-21-2021 13:25-0400 Body mass index (BMI) [Ratio] 37.24 kg/m2 Isidra Hernandez Other [facility] Other 09-21-2021 13:25-0400 Body temperature 97.9 [degF] Isidra Hernandez Other [facility] Other 09-21-2021 13:25-0400 Body weight 98.43 kg Isidra Hernandez Other [facility] Other 09-21-2021 13:25-0400 Diastolic blood pressure 68 mm[Hg] Isidra Hernandez Other [facility] Other 09-21-2021 13:25-0400 Respiratory rate 20 /min Isidra Hernandez Other [facility] Other 09-21-2021 13:25-0400 SaO2% (BldA) [Mass fraction] 96 % Isidra Hernandez Other [facility] Other 09-21-2021 13:25-0400 Systolic blood pressure 146 mm[Hg] Isidra Hernandez Other [facility] Other Encounters Encounter Date Encounter Type Care Provider Facility Start: 06-18-2023 End: 06-18-2023 ambulatory HARDY JAY Not Available Start: 06-10-2023 End: 06-11-2023 ambulatory EJ B APLING Not Available Start: 06-04-2023 End: 06-04-2023 [facility] visit, estab pt Latia Sparks 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 Work Phone: [facility] Work Phone: Start: 06-04-2023 End: 06-04-2023 General Latia Sparks 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 Work Phone: [facility] Work Phone: Start: 05-27-2023 End: 05-28-2023 ambulatory EJ Simon APLING Not Available Start: 05-17-2023 End: 05-17-2023 Evaluation and management of inpatient [facility] Start: 05-16-2023 End: 05-17-2023 Evaluation and management of inpatient [place] [facility] Start: 05-16-2023 End: 05-16-2023 Evaluation and management of inpatient [facility] Start: 05-10-2023 End: 05-11-2023 ambulatory [facility] Start: 05-10-2023 End: 05-10-2023 Admission to same day surgery center Latia Sparks RESEARCH QUALITY 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 Work Phone: [facility] Work Phone: Start: 05-10-2023 End: 05-10-2023 FQHC visit, estab pt Latia Sparks RESEARCH QUALITY 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 Work Phone: [facility] Work Phone: Start: 05-09-2023 Encounter for other preprocedural examination [facility] Start: 05-09-2023 End: 05-09-2023 Patient encounter procedure Pmh Pre-Admission Testing 2 [facility] - Pre Admit Comment on above: Preop examination (P rimary Dx); Type 2 diabetes mellitus without complication, without long-term current use of insulin ([facility]); Hypertension, unspecified type Start: 05-09-2023 End: 05-09-2023 Preprocedural examination done Pmh 2 [facility] Start: 05-09-2023 End: 05-13-2023 ambulatory HARDY JAY [facility] Start: 05-07-2023 End: 05-07-2023 ambulatory HARDY JAY Not Available Start: 04-18-2023 End: 04-18-2023 FQHC visit, estab pt Janina Meghan VISUAL MERCHANDISING ASSISTANT-S Work Phone: [facility] Work Phone: Start: 04-18-2023 End: 04-18-2023 FQHC visit, estab pt Latia Sparks RESEARCH QUALITY 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 Work Phone: [facility] Work Phone: Start: 11-15-2022 End: 11-15-2022 FQHC visit, estab pt Latia Sparks RESEARCH QUALITY 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 Work Phone: [facility] Work Phone: Start: 11-15-2022 End: 11-15-2022 General Latia Sparks RESEARCH QUALITY 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 Work Phone: [facility] Work Phone: Start: 11-09-2022 End: 11-10-2022 ambulatory LATIA SPARKS [facility] Start: 11-08-2022 End: 11-08-2022 FQHC visit, estab pt Janina Meghan VISUAL MERCHANDISING ASSISTANT-S Work Phone: [facility] Work Phone: Start: 11-08-2022 End: 11-08-2022 Encounter for preprocedural laboratory examination Latia Sparks RESEARCH QUALITY 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 Work Phone: [facility] Work Phone: Start: 11-08-2022 End: 11-08-2022 Nursing evaluation of patient and report Latia Sparks RESEARCH QUALITY 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 Work Phone: [facility] Work Phone: Start: 09-26-2022 End: 09-26-[address] DOCTOR WILSON Facility:[facility] Start: 09-25-2022 End: 09-25-2022 ambulatory NARENDRANATH LAKSHMIPATHY . Facility:[facility] Start: 08-28-2022 End: 08-29-2022 ambulatory NARENDRANATH LAKSHMIPATHY . Facility:[facility] Start: 08-14-2022 End: 08-14-2022 ambulatory NARENDRANATH LAKSHMIPATHY . Facility:[facility] Start: 08-02-2022 End: 08-02-2022 FQHC visit, estab pt Latia Hoffmanim RESEARCH QUALITY 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 Work Phone: [facility] Work Phone: Start: 07-27-2022 End: 07-28-2022 ambulatory GERALDO PRADO Facility:[facility] Start: 07-23-2022 End: 07-23-2022 FQHC visit, estab pt Cinthia PARRISH Work Phone: [facility] Work Phone: Start: 07-23-2022 End: 07-23-2022 Adult health examination Latia Sparks RESEARCH QUALITY 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 Work Phone: [facility] Work Phone: Start: 07-23-2022 End: 07-23-2022 Encounter for preprocedural laboratory examination Latia Sparks RESEARCH QUALITY 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 Work Phone: [facility] Work Phone: Start: 07-23-2022 End: 07-23-2022 FQHC visit new patient Latia Sparks RESEARCH QUALITY 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 Work Phone: [facility] Work Phone: Start: 07-23-2022 End: 07-24-2022 ambulatory LATIA SPARKS [facility] Start: 07-23-2022 End: 07-24-2022 Encounter for general adult medical examination without abnormal findings LATIA EDGAR Bautista [facility] Start: 07-23-2022 End: 07-23-2022 Subsequent hospital visit by physician JANINE HUMPHRIES [facility] Start: 07-19-2022 End: 07-20-[address] DOCTOR WILSON Facility:[facility]1 Start: 07-18-2022 End: 07-18-[address] DOCTOR WILSON Facility:[facility] Start: 07-17-2022 End: 07-18-2022 ambulatory GERALDO Kathryn MOJICAErika Facility:[facility] Start: 07-12-2022 ambulatory Latia Sparks RESEARCH QUALITY 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 [facility] Start: 09-21-2021 End: 09-21-2021 ambulatory Isidra Hernandez Other [facility] Other Start: 09-21-2021 Office outpatient ne w 20 minutes Isidra Hernandez [facility] Start: 09-21-2021 End: 09-21-2021 Patient encounter procedure MD Constantine Hernandez Work Phone: [facility] Start: 05-21-2018 End: 05-26-2018 Patient encounter procedure STIVEN ANDINO Facility:[facility] Start: 01-08-2018 Patient encounter Morgan Barcenas [facility] Start: 04-21-2014 Documentation procedure Aram Esquivel MD Work Phone: [facility] Start: 04-21-2014 Historic EMR Aram soto MD Work Phone: [facility] Procedures Date Procedure Procedure Detail Performing Clinician Start: 06-04-2023 Current tobacco smoker Latia Sparks FN P Work Phone: Start: 06-04-2023 FQHC visit, estab pt Latia Sparks RESEARCH QUALITY 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 Work Phone: Start: 06-04-2023 Most recent diastolic blood pressure < 80 mm hg Latia Sparks RESEARCH QUALITY 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 Work Phone: Start: 06-04-2023 Most recent systolic blood press 130-139mm hg Latia Sparks RESEARCH QUALITY 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 Work Phone: Start: 06-04-2023 Orthopedic Surgery Back Latia Sparks F INTELLECTUAL PROPERTY COUNSEL Work Phone: Start: 06-04-2023 Pt scrnd tobacco use rcvd tobacco cessation talk Latia Sparks RESEARCH QUALITY 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 Work Phone: Start: 05-10-2023 Current tobacco smoker Latia Sparks FN P Work Phone: Start: 05-10-2023 FQ visit, estab pt Latia Sparks RESEARCH QUALITY 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 Work Phone: Start: 05-10-2023 Most recent diastolic blood pressure < 80 mm hg Latia Sparks RESEARCH QUALITY 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 Work Phone: Start: 05-10-2023 Most recent systolic blood press 130-139mm hg Latia Sparks RESEARCH QUALITY 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 Work Phone: Start: 05-10-2023 Pt scrnd tobacco use rcvd tobacco cessation talk Latia Sparks RESEARCH QUALITY 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 Work Phone: Start: 04-18-2023 Current tobacco smoker Latia Sparks FN P Work Phone: Start: 04-18-2023 FQ visit, MH estab pt Janina Christianson LI SW-S Work Phone: Start: 04-18-2023 Gluc bld gluc mntr dev cleared fda spec home use Latia Sparks RESEARCH QUALITY 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 Work Phone: Start: 04-18-2023 Most recent diastolic blood pressure 80-89 mm hg Latia Sparks RESEARCH QUALITY 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 Work Phone: Start: 04-18-2023 Most recent hg a1c>equal to 7.0%&<8.0% Latia Sparks RESEARCH QUALITY 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 Work Phone: Start: 04-18-2023 Most recent systolic blood press 130-139mm hg Latia Sparks RESEARCH QUALITY 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 Work Phone: Start: 04-18-2023 Psychotherapy w/patient 30 minutes Janina Christianson VISUAL MERCHANDISING ASSISTANT-S Work Phone: Start: 04-18-2023 Pt scrnd tobacco use rcvd tobacco cessation talk Latia Sparks RESEARCH QUALITY 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 Work Phone: Start: 11-15-2022 FQ visit, estab pt Latia Sparks RESEARCH QUALITY 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 Work Phone: Start: 11-15-2022 Most recent diastolic blood pressure 80-89 mm hg Latia Sparks RESEARCH QUALITY 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 Work Phone: Start: 11-15-2022 Most recent systolic blood pres>/equal 140 mm hg Latia Sparks RESEARCH QUALITY 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 Work Phone: Start: 11-08-2022 Collection venous blood venipuncture Latia Sparks RESEARCH QUALITY 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 Work Phone: Start: 11-08-2022 FQ visit, MH estab pt Janina Chritsianson LI SW-S Work Phone: Start: 11-08-2022 Psychotherapy w/patient 30 minutes Janinasam Christianson VISUAL MERCHANDISING ASSISTANT-S Work Phone: Start: 08-02-2022 Counseling Visit For: Consulting For Explanation of Examination Or Test Findings Latia Sparks RESEARCH QUALITY 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 Work Phone: Start: 08-02-2022 FQ visit, estab pt Latia Sparks RESEARCH QUALITY 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 Work Phone: Start: 08-02-2022 Most recent diastolic blood pressure 80-89 mm hg Latia Sparks RESEARCH QUALITY 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 Work Phone: Start: 08-02-2022 Most recent systolic blood press 130-139mm hg Latia Sparks RESEARCH QUALITY 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 Work Phone: Start: 07-23-2022 Cholecystectomy Latia Sparks RESEARCH QUALITY 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 Work Phone: Start: 07-23-2022 Collection venous blood venipuncture Latia Sparks RESEARCH QUALITY 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 Work Phone: Start: 07-23-2022 FQ visit, MH estab pt Cinthia Farfan LIS W-S Work Phone: Start: 07-23-2022 Hysterectomy Latia Sparks RESEARCH QUALITY 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 Work Phone: Start: 07-23-2022 Ligation of fallopian tube Latia Yasmini m RESEARCH QUALITY 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 Work Phone: Start: 07-23-2022 Most recent diastol blood pres >/equal 90 mm hg Latia Sparks RESEARCH QUALITY 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 Work Phone: Start: 07-23-2022 Most recent hg a1c>equal to 8.0%& Latia Sparks RESEARCH QUALITY 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 Work Phone: Start: 07-23-2022 Most recent systolic blood pressure <130 mm hg Latia Sparks RESEARCH QUALITY 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 Work Phone: Start: 07-23-2022 Pt-focused hlth risk assmt score doc stnd instrm Latia Sparks RESEARCH QUALITY 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 Work Phone: Start: 07-23-2022 Urine albumin semiquantitative Latia Sparks RESEARCH QUALITY 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 Work Phone: Start: 07-23-2022 Hemoglobin glycosylated a1c Latia Ibrah im RESEARCH QUALITY 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 Work Phone: Start: 07-23-2022 Hepatitis c antibody Latia Sparks RESEARCH QUALITY 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 Work Phone: Start: 07-23-2022 IMMATURE PLATELET FRACTION Latia Andree m ALTERATIONS EXPERT - HOSE FINISHER Work Phone: Start: 09-21-2021 X-ray of left [...] Adult BMI Screening Adult BMI Screen ing [facility] Start: 05-09-2024 Tobacco Screening Tobacco Screening [facility] Start: 09-04-2023 FQHC visit, estab pt Medical E stablished Patient [facility] Work Phone: Start: 07-18-2023 FQHC visit, estab pt Medical E stablished Patient [facility] Work Phone: Start: 06-21-2023 FQHC visit, estab pt Medical E stablished Patient [facility] Work Phone: Start: 06-05-2023 Dental Comp Exam [facility] Work Phone: Start: 06-04-2023 FQHC visit, estab pt Medical E stablished Patient [facility] Work Phone: Start: 06-04-2023 End: 06-04-2023 Patient education based on identified need [facility] Start: 05-16-2023 End: 05-16-2023 Admission to same day surgery center 05/16/2023 2:00 PM EST - 05/16/2023 3:15 PM EST Surgery [facility] Surgery [address] [place] [address] Hardy Jay, DO [address] [facility] [address] [place] [address] BALLOON KYPHOPLASTY SPINE [65308 (CPT )] [facility] Comment on above: BALLOON KYPHOPLASTY SPINE [65960 (CPT )] Start: 05-16-2023 End: 05-16-2023 Perq vert agmntj cavity crtj uni/bi cannulation BALLOON KYPHOPLASTY SPINE copression fracture L[facility] Start: 05-16-2023 Subsequent hospital visit by physician 05/16/2023 2:00 PM EST Hospital Encounter [facility] [address] [place] [id number] Hardy Jay, DO [address] [place] [address] [facility] Start: 05-10-2023 End: 05-10-2023 Patient education based on identified need [facility] Start: 04-18-2023 End: 04-18-2023 Patient education based on identified need [facility] offered active and supportive listening, validated emotions and feelings, and processed current stressors with being in the hospital. ~[facility] encouraged patient to utilize positive supports and coping skills. ~ [facility] Start: 04-18-2023 End: 04-18-2023 Patient education based on identified need [facility] Start: 01-18-2023 Influenza vaccination Influenza Vacc ine [facility] Start: 11-15-2022 End: 11-15-2022 Patient education based on identified need [facility] Start: 11-15-2022 Lipid 1996 panel - Serum or Plasma [facility] Start: 11-08-2022 End: 11-08-2022 Patient education based on identified need [facility] encouraged patient to utilize positive supports and coping skills. ~P encouraged patient to contact [facility] if they need any additional support or resources. ~ [facility] Start: 11-01-2022 FQHC visit, estab pt Medical E stablished Patient [facility] Work Phone: Start: 10-18-2022 ambulatory Ambulatory Facility:H 1 Start: 08-02-2022 FQHC visit, estab pt Medical E stablished Patient [facility] Work Phone: Start: 08-02-2022 End: 08-02-2022 Patient education based on identified need [facility] Start: 08-02-2022 End: 08-02-2022 Provider instructions for treatment Intervention and counseling on cessation of tobacco use, 3-10 minutes Discussed medication and nicotine replacement for tobacco cessation [facility] Start: 07-30-2022 CBC panel - Blood by Automated count [facility] Start: 07-30-2022 Lipid 1996 panel - Serum or Plasma LIPID PROFILE [facility] Start: 07-23-2022 End: 07-23-2022 Patient education based on identified need [facility] Start: 07-23-2022 End: 07-23-2022 Provider instructions for treatment Intervention and counseling on cessation of tobacco use, 3-10 minutes Discussed medication and nicotine replacement for tobacco cessation [facility] Start: 12-18-2021 Influenza vaccination Flu vaccine (# 1) [facility] Start: 2017 Fall Risk Screening Fall Risk Screen ing [facility] Start: 1971 DTaP,Tdap and Td Vaccines (1 - Tdap) DTaP,Tdap and Td Vaccines (1 - Tdap) [facility] Start: 1971 DTaP/Tdap/Td vaccine (1 - Tdap) DTaP/Tdap/Td vaccine (1 - Tdap) [facility] Start: 1970 Adult BMI Follow Up Plan Adult BMI Follow Up Plan [facility] Start: 1970 Diabetic foot examination Diabetic Foot Exam [facility] Start: 1964 Depression Screening Depression Scre ening [facility] Start: 1952 COVID-19 Vaccine (#1) COVID-19 Vacci ne (#1) [facility] Start: 1952 Glaucoma screening Diabetic Op hthalmology Exam [facility] Start: 1950 Medicare Annual Wellness Visit Medicare Annual Wellness Visit [facility] Start: 1950 Tobacco Counseling Tobacco Counselin g [facility] Immunizations Immunization Date Immunization Notes Care Provider Asiya tolbert 02-14-2017 influenza virus vacc ine, unspecified formulation Pmh 2 [facility] Payers Date Payer Category Payer Medicare 2019 Medicaid MEDICAID [facility] EDICAID [id number] 2019-Present [phone] [address] [place] [address] [id number] 2018 Medicare [id number] 2014 Private Health Insurance [id number] 2014 Unknown [id number] [id number] 1959 Medicaid [id number] 1952 Unknown [id number] 2.16.840.1.029733.3.579.2. 627 1952 Unknown [id number] 2.16.840.1.334010.3.579.2. 593 1952 Unknown [id number] 2.16.840.1.589738.3.579.2. 593 1952 Unknown [id number] 2.16.840.1.707765.3.579.2. 593 1952 Unknown [id number] 2.16.840.1.055341.3.579.2. 593 1952 Unknown [id number] 2.16.840.1.732889.3.579.2. 593 1952 Unknown [id number] 2.16.840.1.526590.3.579.2. 593 1952 Unknown [id number] 2.16.840.1.643884.3.579.2. 593 1952 Unknown [id number] 2.16.840.1.499167.3.579.2. 593 1952 Unknown [id number] 2.16.840.1.544886.3.579.2. 593 1952 Unknown [id number] 2.16.840.1.997235.3.579.2. 175 1952 Unknown [id number] 2.16.840.1.468994.3.579.2. 175 1952 Unknown [id number] 2.16.840.1.656050.3.579.2. 1286 1952 Unknown [id number] 2.16.840.1.925972.3.579.2. 1286 1952 Unknown [id number] 2.16.840.1.381783.3.579.2. 1286 1952 Unknown [id number] 2.16.840.1.833436.3.579.2. 1286 1952 Unknown [id number] 2.16.840.1.510951.3.579.2. 1286 1952 Unknown [id number] 2.16.840.1.761496.3.579.2. 1286 1952 Unknown [id number] 2.16.840.1.239744.3.579.2. 1286 1952 Unknown [id number] 2.16.840.1.365877.3.579.2. 1286 1952 Unknown [id number] 2.16.840.1.200310.3.579.2. 1286 1952 Unknown [id number] 2.16.840.1.493214.3.579.2. 1259 1952 Unknown [id number] 2.16.840.1.415720.3.579.2. 1259 1952 Unknown [id number] 2.16.840.1.112921.3.579.2. 1259 1952 Unknown [id number] 2.16.840.1.524049.3.579.2. 1259 1952 Unknown [id number] 2.16.840.1.175045.3.579.2. 1259 1952 Unknown [id number] 2.16.840.1.129905.3.579.2. 1259 1952 Unknown [id number] 2.16.840.1.225309.3.579.2. 1259 [facility] [id number] 2.16.840.1.040057.3.140.1. 68490.5.10.6.3 Social History Date Type Detail Facility Start: 1950 Sex Assigned At Female [facility] Start: 10-29-2019 End: 06-30-2020 Sex Assigned At [facility] Other Assertion Currently not se xually active (finding) [facility] Assertion Cigarette smoker (finding) [facility] Assertion Smoker (finding) [facility] Assertion Moderate cigaret te smoker (10-19 cigs/day) (finding) [facility] Assertion Exposure to poll ution (event) [facility] Assertion Gender identity finding (finding) [facility] Assertion Finding of sexua l orientation (finding) [facility] Tobacco smoking status Unknown if ever smoked [facility] Assertion History of disor vivian (situation) [facility] Assertion Emotional stress (finding) [facility] Assertion Finding of resid ence and accommodation circumstances (finding) [facility] Assertion Light cigarette smoker (1-9 cigs/day) (finding) [facility] Start: 1950 Sex Assigned At Not on file [facility] [employer] Work Phone: Start: 05-09-2023 Tobacco smoking status NHIS Smokes tobacco daily [facility] Start: 06-30-2020 End: 05-09-2023 Cigarettes smoked current (pack per day) - Reported 0.3 [facility] Start: 05-09-2023 Tobacco use and exposure Smokeless tobacco non-user [facility] Start: 05-09-2023 Alcohol intake Lifetime non-d aurora (finding) [facility] How often to you have a drink containing alcohol? Never [facility] Average Number of Drinks Not on file [facility] Start: 05-09-2023 Tobacco Comment 4 cigarettes per day [facility] NEGATED: Highlighted row - - [facility] Work Phone: NEGATED: Highlighted row Assertion Current drinker of alcohol (finding) [facility] NEGATED: Highlighted row Assertion Finding relating to drug misuse behavior (finding) [facility] NEGATED: Highlighted row Assertion [facility] NEGATED: Highlighted row Assertion Sexually active (finding) [facility] NEGATED: Highlighted row Assertion Exposure to pollution (event) [facility] Medical Equipment Procedure Code Equipment Code Equipment Origin al Text Equipment Identifier Dates BD Pen Needle Na no 2nd Gen 32G X 4 MM Miscellaneous [id number] Start: 07-23-2022 End: 08-02-2022 BD Pen Needle Na no 2nd Gen 32G X 4 MM Miscellaneous [id number] Start: 08-28-2022 BD Pen Needle Na no 2nd Gen 32G X 4 MM Miscellaneous [id number] Start: 08-22-2022 End: 08-02-2022 Functional Status Date Assessment Result Facility NEGATED: Highlighted row Functional performance Functional status health issues are not documented Disease [facility] Work Phone: Mental Status Date Assessment Result Facility Cognitive function Moderate recu rrent major depression Moderate recurrent major depression (disorder) [facility] Work Phone: NEGATED: Highlighted row Cognitive function [Interpretation] Cognitive status health issues are not documented [facility] Work Phone: Clinical Notes 09-21-2021 to 06-18-2023 Note Date & Type Note Facility 06-18-2023 Instructions Includes: Instructions for all patient encounters Intervention and counseling on cessation of tobacco use, 3-10 minutes Discussed medication and nicotine replacement for tobacco cessation Last Documented On 3 1:05PM ; [facility] Intervention and counseling on cessation of tobacco use, 3-10 minutes Discussed medication and nicotine replacement for tobacco cessation Last Documented On 3 1:02PM ; [facility] Intervention and counseling on cessation of tobacco use, 3-10 minutes Discussed medication and nicotine replacement for tobacco cessation Last Documented On 3 1:13PM ; [facility] Education and Decision Aids were provided during visit for: Discussed nutritional needs 35.4 teach healthy choices including fruits and vegetables Last Documented On 4 10:44AM ; [facility] Patient education about a pr oper diet Last Documented On 4 10:44AM ; [facility] Patient education about phys ical activity benefits Last Documented On 4 11:51AM ; [facility] Patient education about ment al health Last Documented On 4 11:51AM ; [facility] Patient education about diab etes Take your medications every day, even if you feel good. ~Check your blood sugar ____ times per day and write it on your log. ~Limit the amount of pastas, breads, cookies, candies, cakes and soda so your sugar is better controlled Last Documented On 4 11:51AM ; [facility] Patient education about nasa l irrigation Last Documented On 4 11:51AM ; [facility] Discussed concerns about exe rcise : promote physical activity Last Documented On 4 10:44AM ; [facility] Discussed nutritional needs teach healthy choices including fruits and vegetables Last Documented On 3 10:09AM ; [facility] Patient education about a pr oper diet 35.7 Last Documented On 3 10:09AM ; [facility] Discussed concerns about exe rcise : promote physical activity Last Documented On 3 10:09AM ; [facility] offered active and suppo rtive listening, validated emotions and feelings, and processed current stressors with being in the hospital. ~P encouraged patient to utilize positive supports and coping skills. ~ Last Documented On 3 1:42PM ; [facility] Discussed nutritional needs teach healthy choices including fruits and vegetables Last Documented On 3 2:16PM ; [facility] Patient education about a pr oper diet 35.7 Last Documented On 3 2:16PM ; [facility] Patient education about phys ical activity benefits Last Documented On 3 10:09PM ; [facility] Patient education about medi cation Last Documented On 3 10:09PM ; [facility] Patient education about ment al health Last Documented On 3 10:09PM ; [facility] Discussed concerns about exe rcise : promote physical activity Last Documented On 3 2:16PM ; [facility] Not requesting contraception Last Documented On 3 2:16PM ; [facility] [facility] Discussed nutritional needs teach healthy choices including fruits and vegetables Last Documented On 3 2:25PM ; [facility] Patient education about a pr oper diet 37.4 Last Documented On 3 2:25PM ; [facility] Patient education about phys ical activity benefits Last Documented On 3 2:50PM ; [facility] Patient education about medi cation Last Documented On 3 2:50PM ; [facility] Patient education about ment al health Last Documented On 3 2:50PM ; [facility] Discussed concerns about exe rcise : promote physical activity Last Documented On 3 2:25PM ; [facility] encouraged patient to ut ilize positive supports and coping skills. ~[facility] encouraged patient to contact [facility] if they need any additional support or resources. ~ Last Documented On 3 10:03PM ; [facility] Discussed nutritional needs teach healthy choices including fruits and vegetables Last Documented On 3 10:23AM ; [facility] Patient education about a pr oper diet 36.7 Last Documented On 3 10:23AM ; [facility] Patient education about phys ical activity benefits Last Documented On 3 1:07PM ; [facility] Patient education about medi cation Last Documented On 3 1:07PM ; [facility] Patient education about ment al health Last Documented On 3 1:07PM ; [facility] Discussed concerns about exe rcise : promote physical activity Last Documented On 3 10:23AM ; [facility] introduced patient to [facility] integrated model of care. ~P offered active and supportive listening, normalized emotions and feelings, and processed current stressors. ~Discussed healthy coping skills and positive supports in patient's life. ~Discussed healthy lifestyle behaviors. ~ Last Documented On 3 12:10AM ; [facility] Discussed nutritional needs 36 teach healthy choices including fruits and vegetables Last Documented On 3 12:20PM ; [facility] Patient education about a pr oper diet 36 Last Documented On 3 12:20PM ; [facility] Discussed concerns about exe rcise : promote physical activity Last Documented On 3 12:20PM ; [facility] Referred Patient to a Diabet es Self-Management Program Last Documented On 3 1:46PM ; [facility] Work Phone: [phone]) 171-387201-16-2024 Evaluation note Includes: Assessments for all patient encounters Findings Encounter Date [Z68.35 - Body mass index [B LA] 35.0-35.9, adult] assessment of body mass index Medical Established Patient with Latia Sparks RESEARCH QUALITY 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 06/04/2023 Last Documented On 4 11:53AM ; [facility] Nicotine dependence Medical Established Patient with Latia Sparks RESEARCH QUALITY 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 06/04/2023 Last Documented On 4 11:53AM ; [facility] [Z68.35 - Body mass index [B LA] 35.0-35.9, adult] assessment of body mass index Medical Established Patient with Latia Sparks RESEARCH QUALITY 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 05/10/2023 Last Documented On 3 10:52AM ; [facility] Nicotine dependence Medical Established Patient with Latia Sparks RESEARCH QUALITY 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 05/10/2023 Last Documented On 3 10:52AM ; [facility] Visit for: preoperative exam Medical Est ablished Patient with Latia Sparks RESEARCH QUALITY 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 05/10/2023 Last Documented On 3 10:52AM ; [facility] Moderate recurrent major depression BH E stablished Patient with Janina Meghan VISUAL MERCHANDISING ASSISTANT-S 04/18/2023 Last Documented On 3 1:42PM ; [facility] [Z68.35 - Body mass index [B LA] 35.0-35.9, adult] assessment of body mass index Medical Established Patient with Latia Sparks RESEARCH QUALITY 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 04/18/2023 Last Documented On 3 10:11PM ; [facility] Nicotine dependence Medical Established Patient with Latia Sparks RESEARCH QUALITY 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 04/18/2023 Last Documented On 3 10:11PM ; [facility] 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 Medical Established Patient with Latia Sparks RESEARCH QUALITY 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 04/18/2023 Last Documented On 3 10:11PM ; [facility] Assessment of body mass index Medical Es tablished Patient with Latia Hoffmanim RESEARCH QUALITY 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 11/15/2022 Last Documented On 3 2:53PM ; [facility] Generalized anxiety disorder BH Establis hed Patient with Janina Meghan VISUAL MERCHANDISING ASSISTANT-S 11/08/2022 Last Documented On 3 10:03PM ; [facility] Hyperlipidemia Nurse Visit with Latia Sparks [facility] 11/08/2022 Last Documented On 3 2:16PM ; [facility] Venipuncture was performed Nurse Visit with Kathia Sparks [facility] 11/08/2022 Last Documented On 3 2:16PM ; [facility] [Z68.36 - Body mass index [B LA] 36.0-36.9, adult] assessment of body mass index Medical Established Patient with Latia Sparks RESEARCH QUALITY 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 08/02/2022 Last Documented On 3 1:36PM ; [facility] Intervention and counseling on cessation of tobacco use, 3-10 minutes Discussed medication and nicotine replacement for tobacco cessation Medical Established Patient with Latia Hoffmanim RESEARCH QUALITY 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 08/02/2022 Last Documented On 3 1:36PM ; [facility] Visit for: person consulting for explanation of examination or test findings Medical Established Patient with Latia Sparks RESEARCH QUALITY 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 08/02/2022 Last Documented On 3 1:36PM ; [facility] Generalized anxiety disorder BH Establis hed Patient with Cinthia Stone VISUAL MERCHANDISING ASSISTANT-S 07/23/2022 Last Documented On 3 12:17AM ; [facility] Intervention and counseling on cessation of tobacco use, 3-10 minutes Discussed medication and nicotine replacement for tobacco cessation BH Established Patient with Cinthia Stone VISUAL MERCHANDISING ASSISTANT-S 07/23/2022 Last Documented On 3 12:17AM ; [facility] Moderate recurrent major depression BH E stablished Patient with Cinthia Stone VISUAL MERCHANDISING ASSISTANT-S 07/23/2022 Last Documented On 3 12:17AM ; [facility] Nicotine dependence Established Patient with Cinthia Farfan VISUAL MERCHANDISING ASSISTANT-S 07/23/2022 Last Documented On 3 12:17AM ; [facility] Primary insomnia Established Patient with Deysi Farfan VISUAL MERCHANDISING ASSISTANT-S 07/23/2022 Last Documented On 3 12:17AM ; [facility] [Z68.36 - Body mass index [B LA] 36.0-36.9, adult] assessment of body mass index Medical New Patient with Latia Sparks RESEARCH QUALITY 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 07/23/2022 Last Documented On 3 2:32PM ; [facility] Diabetes Risk Test Score was nine score 07/23/2022 Medical New Patient with Latia Sparks RESEARCH QUALITY 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 07/23/2022 Last Documented On 3 2:32PM ; [facility] Intervention and counseling on cessation of tobacco use, 3-10 minutes Discussed medication and nicotine replacement for tobacco cessation Medical New Patient with Latia Sparks RESEARCH QUALITY 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 07/23/2022 Last Documented On 3 2:32PM ; [facility] Screening for Hep C Medical New Patient with Nad yelitza Sparks RESEARCH QUALITY 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 07/23/2022 Last Documented On 3 2:32PM ; [facility] Screening for HIV Medical New Patient with Hiren a Sparks RESEARCH QUALITY 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 07/23/2022 Last Documented On 3 2:32PM ; [facility] Venipuncture was performed Medical New Patient w dmitry Hoffmanim RESEARCH QUALITY 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 07/23/2022 Last Documented On 3 2:32PM ; [facility] Visit for routine adult H&P without abnormal findings Medical New Patient with Latia Sparks RESEARCH QUALITY 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 07/23/2022 Last Documented On 3 2:32PM ; [facility] Work Phone: 1(114) 955-407401-16-2024 Progress note* Progress note Date Encounter Last Documented by 06/04/2023 Medical Established Patient Last documented on 06/04/2023; 11:53 AM, Latia Hoffmanim RESEARCH QUALITY 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; [facility] Active Problems & Conditions - 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 in [place]. Referred Here Referred by emergency room back surgery [facility] follow up. Prior encounters. - Data [...] to physical therapy. The patient lives at [facility], reporting the nurses at the facility have been giving her daily Flippin instead of twice a day. The patient has been encouraged to speak with DON at the [facility]. Follow up in 3 months Current [...] previous hospitalizations. A recent examination by an material requirements planning manager 07/21/2022 results in eye. Recent eye exam [...] BP-Sitting R138/80 mmHg BP Cuff SizeRegular Pulse Rate-Xweiehw81 bpm Uxgvwv53 in Bpunnr419 lbs Body Mass Index35.4 kg/m2 Body Surface Area2 m2 Oxygen Grxtlolykx18 % O2 DeviceNone (Room Air) YwH213 % Vital Signs: - Systolic blood pressure [...] in the COVID-19 vaccination at this time. [facility]01-16-2024 Instructions Includes: Instructions for all patient encounters Instructions to patient Intervention and counseling on cessation of tobacco use, 3-10 minutes Discussed medication and nicotine replacement for tobacco cessation Last Documented On 3 1:05PM ; [facility] Intervention and counseling on cessation of tobacco use, 3-10 minutes Discussed medication and nicotine replacement for tobacco cessation Last Documented On 3 1:02PM ; [facility] Intervention and counseling on cessation of tobacco use, 3-10 minutes Discussed medication and nicotine replacement for tobacco cessation Last Documented On 3 1:13PM ; [facility] Education and Decision Aids were provided during visit for: Discussed nutritional needs 35.4 teach healthy choices including fruits and vegetables Last Documented On 4 10:44AM ; [facility] Patient education about a pr oper diet Last Documented On 4 10:44AM ; [facility] Patient education about phys ical activity benefits Last Documented On 4 11:51AM ; [facility] Patient education about ment al health Last Documented On 4 11:51AM ; [facility] Patient education about diab etes Take your medications every day, even if you feel good. ~Check your blood sugar ____ times per day and write it on your log. ~Limit the amount of pastas, breads, cookies, candies, cakes and soda so your sugar is better controlled Last Documented On 4 11:51AM ; [facility] Patient education about nasa l irrigation Last Documented On 4 11:51AM ; [facility] Discussed concerns about exe rcise : promote physical activity Last Documented On 4 10:44AM ; [facility] Discussed nutritional needs teach healthy choices including fruits and vegetables Last Documented On 3 10:09AM ; [facility] Patient education about a pr oper diet 35.7 Last Documented On 3 10:09AM ; [facility] Discussed concerns about exe rcise : promote physical activity Last Documented On 3 10:09AM ; [facility] BH offered active and suppo rtive listening, validated emotions and feelings, and processed current stressors with being in the hospital. ~P encouraged patient to utilize positive supports and coping skills. ~ Last Documented On 3 1:42PM ; [facility] Discussed nutritional needs teach healthy choices including fruits and vegetables Last Documented On 3 2:16PM ; [facility] Patient education about a pr oper diet 35.7 Last Documented On 3 2:16PM ; [facility] Patient education about phys ical activity benefits Last Documented On 3 10:09PM ; [facility] Patient education about medi cation Last Documented On 3 10:09PM ; [facility] Patient education about ment al health Last Documented On 3 10:09PM ; [facility] Discussed concerns about exe rcise : promote physical activity Last Documented On 3 2:16PM ; [facility] Not requesting contraception Last Documented On 3 2:16PM ; [facility] Discussed nutritional needs teach healthy choices including fruits and vegetables Last Documented On 3 2:25PM ; [facility] Patient education about a pr oper diet 37.4 Last Documented On 3 2:25PM ; [facility] Patient education about phys ical activity benefits Last Documented On 3 2:50PM ; [facility] Patient education about medi cation Last Documented On 3 2:50PM ; [facility] Patient education about ment al health Last Documented On 3 2:50PM ; [facility] Discussed concerns about exe rcise : promote physical activity Last Documented On 3 2:25PM ; [facility] encouraged patient to ut ilize positive supports and coping skills. ~P encouraged patient to contact [facility] if they need any additional support or resources. ~ Last Documented On 3 10:03PM ; [facility] Discussed nutritional needs teach healthy choices including fruits and vegetables Last Documented On 3 10:23AM ; [facility] Patient education about a pr oper diet 36.7 Last Documented On 3 10:23AM ; [facility] Patient education about phys ical activity benefits Last Documented On 3 1:07PM ; [facility] Patient education about medi cation Last Documented On 3 1:07PM ; [facility] Patient education about ment al health Last Documented On 3 1:07PM ; [facility] Discussed concerns about exe rcise : promote physical activity Last Documented On 3 10:23AM ; [facility] introduced patient to [facility] integrated model of care. ~P offered active and supportive listening, normalized emotions and feelings, and processed current stressors. ~Discussed healthy coping skills and positive supports in patient's life. ~Discussed healthy lifestyle behaviors. ~ Last Documented On 3 12:10AM ; [facility] Discussed nutritional needs 36 teach healthy choices including fruits and vegetables Last Documented On 3 12:20PM ; [facility] Patient education about a pr oper diet 36 Last Documented On 3 12:20PM ; [facility] Discussed concerns about exe rcise : promote physical activity Last Documented On 3 12:20PM ; [facility] Referred Patient to a Diabet es Self-Management Program Last Documented On 3 1:46PM ; [facility] Work Phone: 1(722) 201-228212-22-2023 Progress note* Progress note Date Encounter Last Documented by 05/10/2023 Medical Established Patient Last documented on 05/10/2023; 10:52 AM, Latia MAYORGA; [facility] Active Problems & Conditions - [...] needs refill on Fenofibrate. Pt went to [facility] on 05/02 and they found compression fractures on back. Referred Here Not referred by urgent care clinic and not the emergency room. Prior encounters. - Data to be reviewed: clinical lab tests Catscan on 05/02 on back [facility] History of Present Illness Tunde Jack [...] is medically cleared for surgery on the 23. Current Medication - 1st Tier Unifine Pentips [...] previous hospitalizations. A recent examination by an material requirements planning manager 07/21/2022. Recent eye exam showed no apparent [...] BP-Sitting R133/76 mmHg BP Cuff SizeLarge Pulse Rate-Kzeqplt592 bpm Temp-Oral97.8 F Zlesop94 in Hbydxy341 lbs 12.8 oz Body Mass Index35.7 kg/m2 Body Surface Area2 m2 Oxygen Ifzeapkuyh26 % O2 DeviceNone (Room Air) NeH751 % Vital Signs: - Systolic blood pressure [...] in the COVID-19 vaccination at this time. [facility]12-22-2023 Instructions Includes: Instructions for all patient encounters Instructions to patient Intervention and counseling on cessation of tobacco use, 3-10 minutes Discussed medication and nicotine replacement for tobacco cessation Last Documented On 3 1:05PM ; [facility] Intervention and counseling on cessation of tobacco use, 3-10 minutes Discussed medication and nicotine replacement for tobacco cessation Last Documented On 3 1:02PM ; [facility] Intervention and counseling on cessation of tobacco use, 3-10 minutes Discussed medication and nicotine replacement for tobacco cessation Last Documented On 3 1:13PM ; [facility] Education and Decision Aids were provided during visit for: Discussed nutritional needs teach healthy choices including fruits and vegetables Last Documented On 3 10:09AM ; [facility] Patient education about a pr oper diet 35.7 Last Documented On 3 10:09AM ; [facility] Discussed concerns about exe rcise : promote physical activity Last Documented On 3 10:09AM ; [facility] offered active and suppo rtive listening, validated emotions and feelings, and processed current stressors with being in the hospital. ~[facility] encouraged patient to utilize positive supports and coping skills. ~ Last Documented On 3 1:42PM ; [facility] Discussed nutritional needs teach healthy choices including fruits and vegetables Last Documented On 3 2:16PM ; [facility] Patient education about a pr oper diet 35.7 Last Documented On 3 2:16PM ; [facility] Patient education about phys ical activity benefits Last Documented On 3 10:09PM ; [facility] Patient education about medi cation Last Documented On 3 10:09PM ; [facility] Patient education about ment al health Last Documented On 3 10:09PM ; [facility] Discussed concerns about exe rcise : promote physical activity Last Documented On 3 2:16PM ; [facility] Not requesting contraception Last Documented On 3 2:16PM ; [facility] Discussed nutritional needs teach healthy choices including fruits and vegetables Last Documented On 3 2:25PM ; [facility] Patient education about a pr oper diet 37.4 Last Documented On 3 2:25PM ; [facility] Patient education about phys ical activity benefits Last Documented On 3 2:50PM ; [facility] Patient education about medi cation Last Documented On 3 2:50PM ; [facility] Patient education about ment al health Last Documented On 3 2:50PM ; [facility] Discussed concerns about exe rcise : promote physical activity Last Documented On 3 2:25PM ; [facility] encouraged patient to ut ilize positive supports and coping skills. ~[facility] encouraged patient to contact [facility] if they need any additional support or resources. ~ Last Documented On 3 10:03PM ; [facility] Discussed nutritional needs teach healthy choices including fruits and vegetables Last Documented On 3 10:23AM ; [facility] Patient education about a pr oper diet 36.7 Last Documented On 3 10:23AM ; [facility] Patient education about phys ical activity benefits Last Documented On 3 1:07PM ; [facility] Patient education about medi cation Last Documented On 3 1:07PM ; [facility] Patient education about ment al health Last Documented On 3 1:07PM ; [facility] Discussed concerns about exe rcise : promote physical activity Last Documented On 3 10:23AM ; [facility] introduced patient to [facility] integrated model of care. ~[facility] offered active and supportive listening, normalized emotions and feelings, and processed current stressors. ~Discussed healthy coping skills and positive supports in patient's life. ~Discussed healthy lifestyle behaviors. ~ Last Documented On 3 12:10AM ; [facility] Discussed nutritional needs 36 teach healthy choices including fruits and vegetables Last Documented On 3 12:20PM ; [facility] Patient education about a pr oper diet 36 Last Documented On 3 12:20PM ; [facility] Discussed concerns about exe rcise : promote physical activity Last Documented On 3 12:20PM ; [facility] Referred Patient to a Diabet es Self-Management Program Last Documented On 3 1:46PM ; [facility] Work Phone: 1(659) 401-968912-21-2023 Instructions* Patient Instructions* Jennifer Edmond RN - 05/09/2023 2:15 PM EST Preoperative Education Checklist- General Surgery date: 05/16/23 Surgery time: 2:00 p.m. Arrival time: 12:00 p.m. 1. Bring a photo ID and your insurance card with you the day of surgery. You will check in at the main lobby of the [facility]- registration desk is straight ahead as soon as you walk in. Tell them you are here for surgery. 2. If you have a Living Will/Durable Power of Metal Mixer for Health Care that is not on [...] after you have bathed. 5. NO nail lao/acrylic on at least one finger. If you are having a hand, wrist or foot surgery then all nail lao and artificial/acrylic nails must be removed from [...] please call the Preadmission Testing office at [phone], Mon.-Fri. 7 a.m.-3 p.m. Leave a voicemail [...] appointment with your doctor. [facility] Miscellaneous Notes* Perioperative Nursing Note - Jennifer Edmond RN - 05/09/2023 2:15 PM EST Preoperative Education Checklist- General Surgery date: 05/16/23 Surgery time: 2:00 p.m. Arrival time: 12:00 p.m. 1. Bring a photo ID and your insurance card with you the day of surgery. You will check in at the main lobby of the [facility]- registration desk is straight ahead as soon as you walk in. Tell them you are here for surgery. 2. If you have a Living Will/Durable Power of Metal Mixer for Health Care that is not on [...] after you have bathed. 5. NO nail lao/acrylic on at least one finger. If you are having a hand, wrist or foot surgery then all nail lao and artificial/acrylic nails must be removed from [...] please call the Preadmission Testing office at [phone], Mon.-Fri. 7 a.m.-3 p.m. Leave a voicemail [...] reviewed. Patient verbalized understanding. documented in this [facility]Sum[facility]-2023 Nurse Note* Perioperative Nursing Note - Jennifer Edmond RN - 05/09/2023 2:15 PM EST Preoperative Education Checklist- General Surgery date: 05/16/23 Surgery time: 2:00 p.m. Arrival time: 12:00 p.m. 1. Bring a photo ID and your insurance card with you the day of surgery. You will check in at the main lobby of the [facility]- registration desk is straight ahead as soon as you walk in. Tell them you are here for surgery. 2. If you have a Living Will/Durable Power of Metal Mixer for Health Care that is not on [...] after you have bathed. 5. NO nail lao/acrylic on at least one finger. If you are having a hand, wrist or foot surgery then all nail lao and artificial/acrylic nails must be removed from [...] please call the Preadmission Testing office at [phone], Mon.-Fri. 7 a.m.-3 p.m. Leave a voicemail [...] to the follow-up appointment with your doctor. [facility]12-21-2023 Nurse Note* Perioperative Nursing Note - Jennifer Edmond RN - 05/09/2023 2:15 PM EST Hibiclens and surgical instructions reviewed. Patient verbalized understanding. [facility]12-03-2023 Instructions Includes: Instructions for all patient encounters Instructions to patient Intervention and counseling on cessation of tobacco use, 3-10 minutes Discussed medication and nicotine replacement for tobacco cessation Last Documented On 3 1:05PM ; [facility] Intervention and counseling on cessation of tobacco use, 3-10 minutes Discussed medication and nicotine replacement for tobacco cessation Last Documented On 3 1:02PM ; [facility] Intervention and counseling on cessation of tobacco use, 3-10 minutes Discussed medication and nicotine replacement for tobacco cessation Last Documented On 3 1:13PM ; [facility] Education and Decision Aids were provided during visit for: P offered active and suppo rtive listening, validated emotions and feelings, and processed current stressors with being in the hospital. ~[facility] encouraged patient to utilize positive supports and coping skills. ~ Last Documented On 3 1:42PM ; [facility] Discussed nutritional needs teach healthy choices including fruits and vegetables Last Documented On 3 2:16PM ; [facility] Patient education about a pr oper diet 35.7 Last Documented On 3 2:16PM ; [facility] Patient education about phys ical activity benefits Last Documented On 3 10:09PM ; [facility] Patient education about medi cation Last Documented On 3 10:09PM ; [facility] Patient education about ment al health Last Documented On 3 10:09PM ; [facility] Discussed concerns about exe rcise : promote physical activity Last Documented On 3 2:16PM ; [facility] Not requesting contraception Last Documented On 3 2:16PM ; [facility] Discussed nutritional needs teach healthy choices including fruits and vegetables Last Documented On 3 2:25PM ; [facility] Patient education about a pr oper diet 37.4 Last Documented On 3 2:25PM ; [facility] Patient education about phys ical activity benefits Last Documented On 3 2:50PM ; [facility] Patient education about medi cation Last Documented On 3 2:50PM ; [facility] Patient education about ment al health Last Documented On 3 2:50PM ; [facility] Discussed concerns about exe rcise : promote physical activity Last Documented On 3 2:25PM ; [facility] encouraged patient to ut ilize positive supports and coping skills. ~[facility] encouraged patient to contact [facility] if they need any additional support or resources. ~ Last Documented On 3 10:03PM ; [facility] Discussed nutritional needs teach healthy choices including fruits and vegetables Last Documented On 3 10:23AM ; [facility] Patient education about a pr oper diet 36.7 Last Documented On 3 10:23AM ; [facility] Patient education about phys ical activity benefits Last Documented On 3 1:07PM ; [facility] Patient education about medi cation Last Documented On 3 1:07PM ; [facility] Patient education about ment al health Last Documented On 3 1:07PM ; [facility] Discussed concerns about exe rcise : promote physical activity Last Documented On 3 10:23AM ; [facility] introduced patient to [facility] integrated model of care. ~P offered active and supportive listening, normalized emotions and feelings, and processed current stressors. ~Discussed healthy coping skills and positive supports in patient's life. ~Discussed healthy lifestyle behaviors. ~ Last Documented On 3 12:10AM ; [facility] Discussed nutritional needs 36 teach healthy choices including fruits and vegetables Last Documented On 3 12:20PM ; [facility] Patient education about a pr oper diet 36 Last Documented On 3 12:20PM ; [facility] Discussed concerns about exe rcise : promote physical activity Last Documented On 3 12:20PM ; [facility] Referred Patient to a Diabet es Self-Management Program Last Documented On 3 1:46PM ; [facility] Work Phone: 1(644) 144-917812-02-2023 Instructions Includes: Instructions for all patient encounters Instructions to patient Intervention and counseling on cessation of tobacco use, 3-10 minutes Discussed medication and nicotine replacement for tobacco cessation Last Documented On 3 1:05PM ; [facility] Intervention and counseling on cessation of tobacco use, 3-10 minutes Discussed medication and nicotine replacement for tobacco cessation Last Documented On 3 1:02PM ; [facility] Intervention and counseling on cessation of tobacco use, 3-10 minutes Discussed medication and nicotine replacement for tobacco cessation Last Documented On 3 1:13PM ; [facility] Education and Decision Aids were provided during visit for: [facility] offered active and suppo rtive listening, validated emotions and feelings, and processed current stressors with being in the hospital. ~[facility] encouraged patient to utilize positive supports and coping skills. ~ Last Documented On 3 1:42PM ; [facility] Discussed nutritional needs teach healthy choices including fruits and vegetables Last Documented On 3 2:16PM ; [facility] Patient education about a pr oper diet 35.7 Last Documented On 3 2:16PM ; [facility] Discussed concerns about exe rcise : promote physical activity Last Documented On 3 2:16PM ; [facility] Not requesting contraception Last Documented On 3 2:16PM ; [facility] Discussed nutritional needs teach healthy choices including fruits and vegetables Last Documented On 3 2:25PM ; [facility] Patient education about a pr oper diet 37.4 Last Documented On 3 2:25PM ; [facility] Patient education about phys ical activity benefits Last Documented On 3 2:50PM ; [facility] Patient education about medi cation Last Documented On 3 2:50PM ; [facility] Patient education about ment al health Last Documented On 3 2:50PM ; [facility] Discussed concerns about exe rcise : promote physical activity Last Documented On 3 2:25PM ; [facility] encouraged patient to ut ilize positive supports and coping skills. ~[facility] encouraged patient to contact [facility] if they need any additional support or resources. ~ Last Documented On 3 10:03PM ; [facility] Discussed nutritional needs teach healthy choices including fruits and vegetables Last Documented On 3 10:23AM ; [facility] Patient education about a pr oper diet 36.7 Last Documented On 3 10:23AM ; [facility] Patient education about phys ical activity benefits Last Documented On 3 1:07PM ; [facility] Patient education about medi cation Last Documented On 3 1:07PM ; [facility] Patient education about ment al health Last Documented On 3 1:07PM ; [facility] Discussed concerns about exe rcise : promote physical activity Last Documented On 3 10:23AM ; [facility] introduced patient to [facility] integrated model of care. ~[facility] offered active and supportive listening, normalized emotions and feelings, and processed current stressors. ~Discussed healthy coping skills and positive supports in patient's life. ~Discussed healthy lifestyle behaviors. ~ Last Documented On 3 12:10AM ; [facility] Discussed nutritional needs 36 teach healthy choices including fruits and vegetables Last Documented On 3 12:20PM ; [facility] Patient education about a pr oper diet 36 Last Documented On 3 12:20PM ; [facility] Discussed concerns about exe rcise : promote physical activity Last Documented On 3 12:20PM ; [facility] Referred Patient to a Diabet es Self-Management Program Last Documented On 3 1:46PM ; [facility] Work Phone: [phone]) 823-251211-30-2023 Evaluation note Includes: Assessments for all patient encounters Findings Encounter Date Moderate recurrent major depression BH E stablished Patient with Janina Meghan VISUAL MERCHANDISING ASSISTANT-S 04/18/2023 Last Documented On 3 1:42PM ; [facility] [Z68.35 - Body mass index [B LA] 35.0-35.9, adult] assessment of body mass index Medical Established Patient with Latia Hoffmanim [facility] 04/18/2023 Last Documented On 3 2:51PM ; [facility] Assessment of body mass index Medical Es tablished Patient with Latia Hoffmanim RESEARCH QUALITY 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 11/15/2022 Last Documented On 3 2:53PM ; [facility] Generalized anxiety disorder BH Establis hed Patient with Janina Meghan VISUAL MERCHANDISING ASSISTANT-S 11/08/2022 Last Documented On 3 10:03PM ; [facility] Hyperlipidemia Nurse Visit with Latia Sparks [facility] 11/08/2022 Last Documented On 3 2:16PM ; [facility] Venipuncture was performed Nurse Visit with Kathia Sparks [facility] 11/08/2022 Last Documented On 3 2:16PM ; [facility] [Z68.36 - Body mass index [B LA] 36.0-36.9, adult] assessment of body mass index Medical Established Patient with Latia Hoffmanim [facility] 08/02/2022 Last Documented On 3 1:36PM ; [facility] Intervention and counseling on cessation of tobacco use, 3-10 minutes Discussed medication and nicotine replacement for tobacco cessation Medical Established Patient with Latia Sparks RESEARCH QUALITY 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 08/02/2022 Last Documented On 3 1:36PM ; [facility] Visit for: person consulting for explanation of examination or test findings Medical Established Patient with Latia Sparks RESEARCH QUALITY 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 08/02/2022 Last Documented On 3 1:36PM ; [facility] Generalized anxiety disorder BH Establis hed Patient with Cinthia Stone VISUAL MERCHANDISING ASSISTANT-S 07/23/2022 Last Documented On 3 12:17AM ; [facility] Intervention and counseling on cessation of tobacco use, 3-10 minutes Discussed medication and nicotine replacement for tobacco cessation Established Patient with Cinthia Stone VISUAL MERCHANDISING ASSISTANT-S 07/23/2022 Last Documented On 3 12:17AM ; [facility] Moderate recurrent major depression E stablished Patient with Cinthia Stone VISUAL MERCHANDISING ASSISTANT-S 07/23/2022 Last Documented On 3 12:17AM ; [facility] Nicotine dependence Established Patient with Cinthia Stone VISUAL MERCHANDISING ASSISTANT-S 07/23/2022 Last Documented On 3 12:17AM ; [facility] Primary insomnia Established Patient with Deysi pugh Stone VISUAL MERCHANDISING ASSISTANT-S 07/23/2022 Last Documented On 3 12:17AM ; [facility] [Z68.36 - Body mass index [B LA] 36.0-36.9, adult] assessment of body mass index Medical New Patient with Latia Hoffmanim RESEARCH QUALITY 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 07/23/2022 Last Documented On 3 2:32PM ; [facility] Diabetes Risk Test Score was nine score 07/23/2022 Medical New Patient with Latia Sparks RESEARCH QUALITY 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 07/23/2022 Last Documented On 3 2:32PM ; [facility] Intervention and counseling on cessation of tobacco use, 3-10 minutes Discussed medication and nicotine replacement for tobacco cessation Medical New Patient with Latia Sparks RESEARCH QUALITY 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 07/23/2022 Last Documented On 3 2:32PM ; [facility] Screening for Hep C Medical New Patient with Nad yelitza Sparks RESEARCH QUALITY 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 07/23/2022 Last Documented On 3 2:32PM ; [facility] Screening for HIV Medical New Patient with Hiren a Sparks RESEARCH QUALITY 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 07/23/2022 Last Documented On 3 2:32PM ; [facility] Venipuncture was performed Medical New Patient w dmitry Jeffery Sparks RESEARCH QUALITY 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 07/23/2022 Last Documented On 3 2:32PM ; [facility] Visit for routine adult H&P without abnormal findings Medical New Patient with Latia Sparks RESEARCH QUALITY 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 07/23/2022 Last Documented On 3 2:32PM ; [facility] Work Phone: [phone]) 997-958611-30-2023 Evaluation note Includes: Assessments for all patient encounters Findings Encounter Date Moderate recurrent major depression BH E stablished Patient with Janina Meghan VISUAL MERCHANDISING ASSISTANT-S 04/18/2023 Last Documented On 3 1:42PM ; [facility] [Z68.35 - Body mass index [B LA] 35.0-35.9, adult] assessment of body mass index Medical Established Patient with Latia Sparks RESEARCH QUALITY 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 04/18/2023 Last Documented On 3 10:11PM ; [facility] Nicotine dependence Medical Established Patient with Latia Sparks RESEARCH QUALITY 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 04/18/2023 Last Documented On 3 10:11PM ; [facility] 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 Medical Established Patient with Latia Sparks RESEARCH QUALITY 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 04/18/2023 Last Documented On 3 10:11PM ; [facility] Assessment of body mass index Medical Es tablished Patient with Latia Sparks RESEARCH QUALITY 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 11/15/2022 Last Documented On 3 2:53PM ; [facility] Generalized anxiety disorder BH Establis hed Patient with Janina Meghan VISUAL MERCHANDISING ASSISTANT-S 11/08/2022 Last Documented On 3 10:03PM ; [facility] Hyperlipidemia Nurse Visit with Latia Sparks RESEARCH QUALITY 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 11/08/2022 Last Documented On 3 2:16PM ; [facility] Venipuncture was performed Nurse Visit with Kathia Farooqahim RESEARCH QUALITY 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 11/08/2022 Last Documented On 3 2:16PM ; [facility] [Z68.36 - Body mass index [B LA] 36.0-36.9, adult] assessment of body mass index Medical Established Patient with Latia Sparks RESEARCH QUALITY 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 08/02/2022 Last Documented On 3 1:36PM ; [facility] Intervention and counseling on cessation of tobacco use, 3-10 minutes Discussed medication and nicotine replacement for tobacco cessation Medical Established Patient with Latia Hoffmanim RESEARCH QUALITY 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 08/02/2022 Last Documented On 3 1:36PM ; [facility] Visit for: person consulting for explanation of examination or test findings Medical Established Patient with Latia Hoffmanim RESEARCH QUALITY 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 08/02/2022 Last Documented On 3 1:36PM ; [facility] Generalized anxiety disorder Establis hed Patient with Cinthia Stone VISUAL MERCHANDISING ASSISTANT-S 07/23/2022 Last Documented On 3 12:17AM ; [facility] Intervention and counseling on cessation of tobacco use, 3-10 minutes Discussed medication and nicotine replacement for tobacco cessation Established Patient with Cinthia Stone VISUAL MERCHANDISING ASSISTANT-S 07/23/2022 Last Documented On 3 12:17AM ; [facility] Moderate recurrent major depression E stablished Patient with Cinthia Stone VISUAL MERCHANDISING ASSISTANT-S 07/23/2022 Last Documented On 3 12:17AM ; [facility] Nicotine dependence Established Patient with Cinthia Stone VISUAL MERCHANDISING ASSISTANT-S 07/23/2022 Last Documented On 3 12:17AM ; [facility] Primary insomnia Established Patient with Deysi pugh Stone VISUAL MERCHANDISING ASSISTANT-S 07/23/2022 Last Documented On 3 12:17AM ; [facility] [Z68.36 - Body mass index [B LA] 36.0-36.9, adult] assessment of body mass index Medical New Patient with Latia Sparks RESEARCH QUALITY 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 07/23/2022 Last Documented On 3 2:32PM ; [facility] Diabetes Risk Test Score was nine score 07/23/2022 Medical New Patient with Latia Hoffmanim RESEARCH QUALITY 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 07/23/2022 Last Documented On 3 2:32PM ; [facility] Intervention and counseling on cessation of tobacco use, 3-10 minutes Discussed medication and nicotine replacement for tobacco cessation Medical New Patient with Latiakathryn Hoffmanim RESEARCH QUALITY 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 07/23/2022 Last Documented On 3 2:32PM ; [facility] Screening for Hep C Medical New Patient with Genaro Sparks RESEARCH QUALITY 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 07/23/2022 Last Documented On 3 2:32PM ; [facility] Screening for HIV Medical New Patient with Hiren Sparks RESEARCH QUALITY 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 07/23/2022 Last Documented On 3 2:32PM ; [facility] Venipuncture was performed Medical New Patient w dmitry Sparks RESEARCH QUALITY 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 07/23/2022 Last Documented On 3 2:32PM ; [facility] Visit for routine adult H&P without abnormal findings Medical New Patient with Latia Sparks RESEARCH QUALITY 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 07/23/2022 Last Documented On 3 2:32PM ; [facility] Work Phone: 1([phone]) 660-753911-30-2023 History general Narrative - Reported Includes: Medical History in patient's chart Description Last Updated Not planning to have a baby in the next 12 months 04/18/2023 Last Documented On 3 10:11PM ; [facility] No previous suicide attempt 07/24/2022 Last Documented On 3 12:17AM ; [facility] A recent examination by an ophthalmologi st 07/21/2022 07/23/2022 Last Documented On 3 2:32PM ; [facility] History of diabetes mellitus 07/23/2022 Last Documented On 3 2:32PM ; [facility] History of systemic hypertension 023 Last Documented On 3 2:32PM ; [facility] No previous hospitalizations 07/23/2022 Last Documented On 3 2:32PM ; [facility] Recent immunization for flu 07/23/2022 Last Documented On 3 2:32PM ; [facility] Work Phone: 1(329) 345-600011-30-2023 Progress note* Progress note Date Encounter Last Documented by 04/18/2023 BH Established Patient Last docu mented on 04/20/2023; 1:42 PM, Janina FRIED; [facility] Active Problems & Conditions - 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 Patient [...] previous hospitalizations. A recent examination by an material requirements planning manager 07/21/2022. Immunization History: Recent immunization for flu. Diagnoses: Systemic hypertension. Diabetes mellitus Surgical: - Cholecystectomy - Hernia repair - Hysterectomy - Tubal ligation Social History Environmental Exposure: No secondhand cigarette smoke exposure. Personal: Recent emotional stress. Housing And Economic Circumstances: Living arrangements living arrangements: Allergies - Astatula Reaction: Hives / Urticaria, Shock - Mellaril [...] Health Reminders - Eye Exam satisfied 07/21/2022. [facility]11-30-2023 Progress note* Progress note Date Encounter Last Documented by 04/18/2023 Medical Established Patient Last documented on 04/21/2023; 10:11 PM, Latia Sparks RESEARCH QUALITY 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; [facility] Active Problems & Conditions - [...] previous hospitalizations. A recent examination by an material requirements planning manager 07/21/2022. Immunization History: Recent immunization for flu. [...] dhaliwal), and gender identity Female. Allergies - Astatula Reaction: Hives / Urticaria, Shock - Mellaril [...] BP-Sitting R138/80 mmHg BP Cuff SizeLarge Pulse Rate-Uqovyfm58 bpm Respiration Rate18 per min Temp-Oral97.8 F Zanqlw37 in Dklhpj442 lbs Body Mass Index35.7 kg/m2 Body Surface Area2 m2 Oxygen Nrhincnmmx75 % O2 DeviceNone (Room Air) BiV652 % Vital Signs: - Systolic blood pressure [...] + 0 pt : Not at all. [facility]11-30-2023 Reason for referral (narrative)* Date Encounter Description Provider Reason for Referral 04/18/23 Medical Established Patient Latia thayer RESEARCH QUALITY 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 Referral To Mental Health Team 07/23/22 Established Patient Cinthia Farfan FR[facility]- [facility] Referral To Mental Health Team [facility] Work Phone: 1(667) 839-952211-13-2023 Progress note* Progress note Date Encounter Last Documented by 04/01/2023 Chart Update Last documented on 04/01/2023; 10:55 AM, Latia Sparks RESEARCH QUALITY 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; [facility] Active Problems & Conditions - 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 A recent examination by an material requirements planning manager 07/21/2022. Immunization History: Recent immunization for flu. Diagnoses: Systemic hypertension. Diabetes mellitus Surgical: - Cholecystectomy - Hernia repair - Hysterectomy - Tubal ligation Allergies - Astatula Reaction: Hives / Urticaria, Shock - Mellaril - PENICILLINS Reaction: Hives / Urticaria - Topamax Family History Maternal: Type 1 diabetes mellitus Plan StartCited- Acute sinusitis, unspecified Azithromycin 250 MG tablet 500 mg by mouth x 1 day 1, then 250 mg by mouth daily x 4 days., 5 days, 0 refills EndCited [facility]11-13-2023 Instructions Includes: Instructions for all patient encounters Instructions to patient Intervention and counseling on cessation of tobacco use, 3-10 minutes Discussed medication and nicotine replacement for tobacco cessation Last Documented On 3 1:05PM ; [facility] Intervention and counseling on cessation of tobacco use, 3-10 minutes Discussed medication and nicotine replacement for tobacco cessation Last Documented On 3 1:02PM ; [facility] Intervention and counseling on cessation of tobacco use, 3-10 minutes Discussed medication and nicotine replacement for tobacco cessation Last Documented On 3 1:13PM ; [facility] Education and Decision Aids were provided during visit for: Discussed nutritional needs teach healthy choices including fruits and vegetables Last Documented On 3 2:25PM ; [facility] Patient education about a pr oper diet 37.4 Last Documented On 3 2:25PM ; [facility] Patient education about phys ical activity benefits Last Documented On 3 2:50PM ; [facility] Patient education about medi cation Last Documented On 3 2:50PM ; [facility] Patient education about ment al health Last Documented On 3 2:50PM ; [facility] Discussed concerns about exe rcise : promote physical activity Last Documented On 3 2:25PM ; [facility] encouraged patient to ut ilize positive supports and coping skills. ~[facility] encouraged patient to contact [facility] if they need any additional support or resources. ~ Last Documented On 3 10:03PM ; [facility] Discussed nutritional needs teach healthy choices including fruits and vegetables Last Documented On 3 10:23AM ; [facility] Patient education about a pr oper diet 36.7 Last Documented On 3 10:23AM ; [facility] Patient education about phys ical activity benefits Last Documented On 3 1:07PM ; [facility] Patient education about medi cation Last Documented On 3 1:07PM ; [facility] Patient education about ment al health Last Documented On 3 1:07PM ; [facility] Discussed concerns about exe rcise : promote physical activity Last Documented On 3 10:23AM ; [facility] introduced patient to [facility] integrated model of care. ~[facility] offered active and supportive listening, normalized emotions and feelings, and processed current stressors. ~Discussed healthy coping skills and positive supports in patient's life. ~Discussed healthy lifestyle behaviors. ~ Last Documented On 3 12:10AM ; [facility] Discussed nutritional needs 36 teach healthy choices including fruits and vegetables Last Documented On 3 12:20PM ; [facility] Patient education about a pr oper diet 36 Last Documented On 3 12:20PM ; [facility] Discussed concerns about exe rcise : promote physical activity Last Documented On 3 12:20PM ; [facility] Referred Patient to a Diabet es Self-Management Program Last Documented On 3 1:46PM ; [facility] Work Phone: [phone]) 467-374806-29-2023 Evaluation note Includes: Assessments for all patient encounters Findings Encounter Date Assessment of body mass index Medical Es tablished Patient with Latia Sparks [facility] 11/15/2022 Last Documented On 3 2:53PM ; [facility] Generalized anxiety disorder BH Establis hed Patient with Janina Christianson [employer]UAL MERCHANDISING ASSISTANT[employer]S 11/08/2022 Last Documented On 3 10:03PM ; [facility] Hyperlipidemia Nurse Visit with Latia Sparks [facility] 11/08/2022 Last Documented On 3 2:16PM ; [facility] Venipuncture was performed Nurse Visit with Kathia Sparks [facility] 11/08/2022 Last Documented On 3 2:16PM ; [facility] [Z68.36 - Body mass index [B LA] 36.0-36.9, adult] assessment of body mass index Medical Established Patient with Latia Sparks [employer] QUAL[employer] 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 08/02/2022 Last Documented On 3 1:36PM ; [facility] Intervention and counseling on cessation of tobacco use, 3-10 minutes Discussed medication and nicotine replacement for tobacco cessation Medical Established Patient with Latia Sparks [employer]EARCH QUALITY 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 08/02/2022 Last Documented On 3 1:36PM ; [facility] Visit for: person consulting for explanation of examination or test findings Medical Established Patient with Latia Sparks RESEARCH QUALITY 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 08/02/2022 Last Documented On 3 1:36PM ; [facility] Generalized anxiety disorder Establis hed Patient with Cinthia Stone VISUAL MERCHANDISING ASSISTANT-S 07/23/2022 Last Documented On 3 12:17AM ; [facility] Intervention and counseling on cessation of tobacco use, 3-10 minutes Discussed medication and nicotine replacement for tobacco cessation Established Patient with Cinthia Stone VISUAL MERCHANDISING ASSISTANT-S 07/23/2022 Last Documented On 3 12:17AM ; [facility] Moderate recurrent major depression E stablished Patient with Cinthia Stone VISUAL MERCHANDISING ASSISTANT-S 07/23/2022 Last Documented On 3 12:17AM ; [facility] Nicotine dependence Established Patient with Cinthia Stone VISUAL MERCHANDISING ASSISTANT-S 07/23/2022 Last Documented On 3 12:17AM ; [facility] Primary insomnia Established Patient with Deysi pugh Stone VISUAL MERCHANDISING ASSISTANT-S 07/23/2022 Last Documented On 3 12:17AM ; [facility] [Z68.36 - Body mass index [B LA] 36.0-36.9, adult] assessment of body mass index Medical New Patient with Latia Sparks RESEARCH QUALITY 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 07/23/2022 Last Documented On 3 2:32PM ; [facility] Diabetes Risk Test Score was nine score 07/23/2022 Medical New Patient with Latia Hoffmanim RESEARCH QUALITY 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 07/23/2022 Last Documented On 3 2:32PM ; [facility] Intervention and counseling on cessation of tobacco use, 3-10 minutes Discussed medication and nicotine replacement for tobacco cessation Medical New Patient with Latia Sparks RESEARCH QUALITY 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 07/23/2022 Last Documented On 3 2:32PM ; [facility] Screening for Hep C Medical New Patient with Nad yelitza Sparks RESEARCH QUALITY 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 07/23/2022 Last Documented On 3 2:32PM ; [facility] Screening for HIV Medical New Patient with Hiren Sparks RESEARCH QUALITY 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 07/23/2022 Last Documented On 3 2:32PM ; [facility] Venipuncture was performed Medical New Patient w dmitry Sparks [facility] 07/23/2022 Last Documented On 3 2:32PM ; [facility] Visit for routine adult H&P without abnormal findings Medical New Patient with Latia Sparks RESEARCH QUALITY 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 07/23/2022 Last Documented On 3 2:32PM ; [facility] Work Phone: [phone]) 502-974106-29-2023 Progress note* Progress note Date Encounter Last Documented by 11/15/2022 Medical Established Patient Last documented on 11/15/2022; 2:53 PM, Latia Sparks [facility]; [facility] Active Problems & Conditions - [...] previous hospitalizations. A recent examination by an material requirements planning manager 07/21/2022. Immunization History: Recent immunization for flu. [...] 11/15/2022 02:17 pm BP-Sitting R143/78 mmHg Pulse Rate-Xpolraz00 bpm Kpegrq13 in Cgxeuf302 lbs Body Mass Index37.4 kg/m2 Body Surface Area2 m2 Oxygen Sffzfinqdn94 % - Vitals taken 11/15/2022 02:24 pm BP-Ntrnpsc434/82 mmHg General Appearance: - Awake. - Alert. [...] and diastolic 80-89 mmHg diastolic 80-89 mmHg. [facility]06-24-2023 Instructions Includes: Instructions for all patient encounters Instructions to patient Intervention and counseling on cessation of tobacco use, 3-10 minutes Discussed medication and nicotine replacement for tobacco cessation Last Documented On 3 1:05PM ; [facility] Intervention and counseling on cessation of tobacco use, 3-10 minutes Discussed medication and nicotine replacement for tobacco cessation Last Documented On 3 1:02PM ; [facility] Intervention and counseling on cessation of tobacco use, 3-10 minutes Discussed medication and nicotine replacement for tobacco cessation Last Documented On 3 1:13PM ; [facility] Education and Decision Aids were provided during visit for: [facility] encouraged patient to ut ilize positive supports and coping skills. ~[facility] encouraged patient to contact [facility] if they need any additional support or resources. ~ Last Documented On 3 10:03PM ; [facility] Discussed nutritional needs teach healthy choices including fruits and vegetables Last Documented On 3 10:23AM ; [facility] Patient education about a pr oper diet 36.7 Last Documented On 3 10:23AM ; [facility] Patient education about phys ical activity benefits Last Documented On 3 1:07PM ; [facility] Patient education about medi cation Last Documented On 3 1:07PM ; [facility] Patient education about ment al health Last Documented On 3 1:07PM ; [facility] Discussed concerns about exe rcise : promote physical activity Last Documented On 3 10:23AM ; [facility] introduced patient to [facility] integrated model of care. ~[facility] offered active and supportive listening, normalized emotions and feelings, and processed current stressors. ~Discussed healthy coping skills and positive supports in patient's life. ~Discussed healthy lifestyle behaviors. ~ Last Documented On 3 12:10AM ; [facility] Discussed nutritional needs 36 teach healthy choices including fruits and vegetables Last Documented On 3 12:20PM ; [facility] Patient education about a pr oper diet 36 Last Documented On 3 12:20PM ; [facility] Discussed concerns about exe rcise : promote physical activity Last Documented On 3 12:20PM ; [facility] Referred Patient to a Diabet es Self-Management Program Last Documented On 3 1:46PM ; [facility] Work Phone: 1([phone]) 440-620606-22-2023 Evaluation note Includes: Assessments for all patient encounters Findings Encounter Date Hyperlipidemia Nurse Visit with Latia Sparks [facility] 11/08/2022 Last Documented On 3 2:16PM ; [facility] Venipuncture was performed Nurse Visit with Kathia Sparks [facility] 11/08/2022 Last Documented On 3 2:16PM ; [facility] [Z68.36 - Body mass index [B LA] 36.0-36.9, adult] assessment of body mass index Medical Established Patient with Latia Sparks [facility] 08/02/2022 Last Documented On 3 1:36PM ; [facility] Intervention and counseling on cessation of tobacco use, 3-10 minutes Discussed medication and nicotine replacement for tobacco cessation Medical Established Patient with Latia Sparks [facility] 08/02/2022 Last Documented On 3 1:36PM ; [facility] Visit for: person consulting for explanation of examination or test findings Medical Established Patient with Latia Sparks [facility] 08/02/2022 Last Documented On 3 1:36PM ; [facility] Generalized anxiety disorder BH Establis hed Patient with Cinthia Stone VISUAL MERCHANDISING ASSISTANT-S 07/23/2022 Last Documented On 3 12:17AM ; [facility] Intervention and counseling on cessation of tobacco use, 3-10 minutes Discussed medication and nicotine replacement for tobacco cessation Established Patient with Cinthia Stone VISUAL MERCHANDISING ASSISTANT-S 07/23/2022 Last Documented On 3 12:17AM ; [facility] Moderate recurrent major depression BH E stablished Patient with Cinthia Stone VISUAL MERCHANDISING ASSISTANT-S 07/23/2022 Last Documented On 3 12:17AM ; [facility] Nicotine dependence BH Established Patient with Cinthia Stone VISUAL MERCHANDISING ASSISTANT-S 07/23/2022 Last Documented On 3 12:17AM ; [facility] Primary insomnia BH Established Patient with Deysi Farfan VISUAL MERCHANDISING ASSISTANT-S 07/23/2022 Last Documented On 3 12:17AM ; [facility] [Z68.36 - Body mass index [B LA] 36.0-36.9, adult] assessment of body mass index Medical New Patient with Latia Sparks RESEARCH QUALITY 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 07/23/2022 Last Documented On 3 2:32PM ; [facility] Diabetes Risk Test Score was nine score 07/23/2022 Medical New Patient with Latia Sparks RESEARCH QUALITY 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 07/23/2022 Last Documented On 3 2:32PM ; [facility] Intervention and counseling on cessation of tobacco use, 3-10 minutes Discussed medication and nicotine replacement for tobacco cessation Medical New Patient with Latia Sparks RESEARCH QUALITY 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 07/23/2022 Last Documented On 3 2:32PM ; [facility] Screening for Hep C Medical New Patient with Nad yelitza Sparks RESEARCH QUALITY 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 07/23/2022 Last Documented On 3 2:32PM ; [facility] Screening for HIV Medical New Patient with Hiren a Sparks RESEARCH QUALITY 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 07/23/2022 Last Documented On 3 2:32PM ; [facility] Venipuncture was performed Medical New Patient w dmitry Hoffmanim RESEARCH QUALITY 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 07/23/2022 Last Documented On 3 2:32PM ; [facility] Visit for routine adult H&P without abnormal findings Medical New Patient with Latia Sparks RESEARCH QUALITY 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 07/23/2022 Last Documented On 3 2:32PM ; [facility] Work Phone: 1(401) 183-769806-22-2023 Evaluation note Includes: Assessments for all patient encounters Findings Encounter Date Generalized anxiety disorder BH Establis hed Patient with Janina Christianson VISUAL MERCHANDISING ASSISTANT-S 11/08/2022 Last Documented On 3 10:03PM ; [facility] Hyperlipidemia Nurse Visit with Latia Sparks RESEARCH QUALITY 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 11/08/2022 Last Documented On 3 2:16PM ; [facility] Venipuncture was performed Nurse Visit with Kathia Sparks [facility] 11/08/2022 Last Documented On 3 2:16PM ; [facility] [Z68.36 - Body mass index [B LA] 36.0-36.9, adult] assessment of body mass index Medical Established Patient with Latia Sparks RESEARCH QUALITY 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 08/02/2022 Last Documented On 3 1:36PM ; [facility] Intervention and counseling on cessation of tobacco use, 3-10 minutes Discussed medication and nicotine replacement for tobacco cessation Medical Established Patient with Latia Sparks [facility] 08/02/2022 Last Documented On 3 1:36PM ; [facility] Visit for: person consulting for explanation of examination or test findings Medical Established Patient with Latia Hoffmanim RESEARCH QUALITY 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 08/02/2022 Last Documented On 3 1:36PM ; [facility] Generalized anxiety disorder Establis hed Patient with Cinthia Stone VISUAL MERCHANDISING ASSISTANT-S 07/23/2022 Last Documented On 3 12:17AM ; [facility] Intervention and counseling on cessation of tobacco use, 3-10 minutes Discussed medication and nicotine replacement for tobacco cessation Established Patient with Cinthia Stone VISUAL MERCHANDISING ASSISTANT-S 07/23/2022 Last Documented On 3 12:17AM ; [facility] Moderate recurrent major depression E stablished Patient with Cinthia Stone VISUAL MERCHANDISING ASSISTANT-S 07/23/2022 Last Documented On 3 12:17AM ; [facility] Nicotine dependence Established Patient with Cinthia Stone VISUAL MERCHANDISING ASSISTANT-S 07/23/2022 Last Documented On 3 12:17AM ; [facility] Primary insomnia Established Patient with Deysi pugh Stone VISUAL MERCHANDISING ASSISTANT-S 07/23/2022 Last Documented On 3 12:17AM ; [facility] [Z68.36 - Body mass index [B LA] 36.0-36.9, adult] assessment of body mass index Medical New Patient with Latia Hoffmanim RESEARCH QUALITY 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 07/23/2022 Last Documented On 3 2:32PM ; [facility] Diabetes Risk Test Score was nine score 07/23/2022 Medical New Patient with Latia Sparks RESEARCH QUALITY 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 07/23/2022 Last Documented On 3 2:32PM ; [facility] Intervention and counseling on cessation of tobacco use, 3-10 minutes Discussed medication and nicotine replacement for tobacco cessation Medical New Patient with Latia Sparks RESEARCH QUALITY ASSURANCE ANALYST 07/23/2022 Last Documented On 3 2:32PM ; [facility] Screening for Hep C Medical New Patient with Nad yelitza Hoffmanim RESEARCH QUALITY ASSURANCE ANALYST 07/23/2022 Last Documented On 3 2:32PM ; [facility] Screening for HIV Medical New Patient with Hiren kathryn Sparks RESEARCH QUALITY ASSURANCE ANALYST 07/23/2022 Last Documented On 3 2:32PM ; [facility] Venipuncture was performed Medical New Patient w dmitry Sparks RESEARCH QUALITY ASSURANCE ANALYST 07/23/2022 Last Documented On 3 2:32PM ; [facility] Visit for routine adult H&P without abnormal findings Medical New Patient with Latia Sparks RESEARCH QUALITY ASSURANCE ANALYST 07/23/2022 Last Documented On 3 2:32PM ; [facility] Work Phone: [phone]) 830-489506-22-2023 Progress note* Progress note Date Encounter Last Documented by 11/08/2022 Nurse Visit Last documented on 11/08/2022; 2:16 PM, Latia Sparks [facility]; [facility] Active Problems & Conditions - [...] previous hospitalizations. A recent examination by an material requirements planning manager 07/21/2022. Immunization History: Recent immunization for flu. 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 Patient [...] previous hospitalizations. A recent examination by an material requirements planning manager 07/21/2022. Immunization History: Recent immunization for flu. [...] - Collaborated with patient and provider: Counseling/Education P encouraged patient to utilize positive supports and coping skills. P encouraged patient to contact [facility] if they need any additional support or resources. . Plan P to follow up with [...] + 0 pt : Not at all. [facility]06-22-2023 Instructions Includes: Instructions for all patient encounters Instructions to patient Intervention and counseling on cessation of tobacco use, 3-10 minutes Discussed medication and nicotine replacement for tobacco cessation Last Documented On 3 1:05PM ; [facility] Intervention and counseling on cessation of tobacco use, 3-10 minutes Discussed medication and nicotine replacement for tobacco cessation Last Documented On 3 1:02PM ; [facility] Intervention and counseling on cessation of tobacco use, 3-10 minutes Discussed medication and nicotine replacement for tobacco cessation Last Documented On 3 1:13PM ; [facility] Education and Decision Aids were provided during visit for: Discussed nutritional needs teach healthy choices including fruits and vegetables Last Documented On 3 10:23AM ; [facility] Patient education about a pr oper diet 36.7 Last Documented On 3 10:23AM ; [facility] Patient education about phys ical activity benefits Last Documented On 3 1:07PM ; [facility] Patient education about medi cation Last Documented On 3 1:07PM ; [facility] Patient education about ment al health Last Documented On 3 1:07PM ; [facility] Discussed concerns about exe rcise : promote physical activity Last Documented On 3 10:23AM ; [facility] introduced patient to [facility] integrated model of care. ~P offered active and supportive listening, normalized emotions and feelings, and processed current stressors. ~Discussed healthy coping skills and positive supports in patient's life. ~Discussed healthy lifestyle behaviors. ~ Last Documented On 3 12:10AM ; [facility] Discussed nutritional needs 36 teach healthy choices including fruits and vegetables Last Documented On 3 12:20PM ; [facility] Patient education about a pr oper diet 36 Last Documented On 3 12:20PM ; [facility] Discussed concerns about exe rcise : promote physical activity Last Documented On 3 12:20PM ; [facility] Referred Patient to a Diabet es Self-Management Program Last Documented On 3 1:46PM ; [facility] Work Phone: 1([phone]) 141-441604-11-2023 NoteCONSULTATION CONSULTATION DATE: 08/28/2022 TO: Geraldo Prado [...] the lower extremities MEDICATION: Current medication includes Flippin 5 mg b.i.d. p.r.n. She reports that she has not been taking her Xanax. She reports the Flippin does seem to increase in her quality [...] our patients to inform us about any sxys-cgr-hlhakrb medications or herbal remedies/nutritional supplements/alternative remedies. 2. [...] treatment options with their primary care provider.[id number] Progress note* Progress note Date Encounter Last Documented by 08/02/2022 Medical Established Patient Last documented on 08/02/2022; 1:36 PM, Latia MAYORGA; [facility] Active Problems & Conditions - E11.610 - [...] results, Pt needs tresiba prescribed to the [facility] pharmacy just for today. Referred Here [...] previous hospitalizations. A recent examination by an material requirements planning manager 07/21/2022. Immunization History: Recent immunization for flu. [...] BP-Sitting R138/82 mmHg BP Cuff SizeLarge Pulse Rate-Mfofdpq28 bpm Pulse RhythmRegular Respiration Rate18 per min Temp-Uagvfswz22.5 F Xdqcxa26 in Kmfxav789 lbs Body Mass Index36.7 kg/m2 Body Surface Area2 m2 Oxygen Xzcskmdjzo29 % O2 DeviceNone (Room Air) AtL669 % General Appearance: - Awake. - Alert. [...] and diastolic 80-89 mmHg diastolic 80-89 mmHg. [facility]03-16-2023 Instructions Includes: Instructions for all patient encounters Instructions to patient Intervention and counseling on cessation of tobacco use, 3-10 minutes Discussed medication and nicotine replacement for tobacco cessation Last Documented On 3 1:05PM ; [facility] Intervention and counseling on cessation of tobacco use, 3-10 minutes Discussed medication and nicotine replacement for tobacco cessation Last Documented On 3 1:02PM ; [facility] Intervention and counseling on cessation of tobacco use, 3-10 minutes Discussed medication and nicotine replacement for tobacco cessation Last Documented On 3 1:13PM ; [facility] Education and Decision Aids were provided during visit for: Discussed nutritional needs teach healthy choices including fruits and vegetables Last Documented On 3 10:23AM ; [facility] Patient education about a pr oper diet 36.7 Last Documented On 3 10:23AM ; [facility] Patient education about phys ical activity benefits Last Documented On 3 1:07PM ; [facility] Patient education about medi cation Last Documented On 3 1:07PM ; [facility] Patient education about ment al health Last Documented On 3 1:07PM ; [facility] Discussed concerns about exe rcise : promote physical activity Last Documented On 3 10:23AM ; [facility] introduced patient to [facility] integrated model of care. ~P offered active and supportive listening, normalized emotions and feelings, and processed current stressors. ~Discussed healthy coping skills and positive supports in patient's life. ~Discussed healthy lifestyle behaviors. ~ Last Documented On 3 12:10AM ; [facility] Discussed nutritional needs 36 teach healthy choices including fruits and vegetables Last Documented On 3 12:20PM ; [facility] Patient education about a pr oper diet 36 Last Documented On 3 12:20PM ; [facility] Discussed concerns about exe rcise : promote physical activity Last Documented On 3 12:20PM ; [facility] Referred Patient to a Diabet es Self-Management Program Last Documented On 3 1:46PM ; [facility] Work Phone: 1(668) 526-847103-16-2023 Instructions Includes: Instructions for all patient encounters Instructions to patient Intervention and counseling on cessation of tobacco use, 3-10 minutes Discussed medication and nicotine replacement for tobacco cessation Last Documented On 3 1:05PM ; [facility] Intervention and counseling on cessation of tobacco use, 3-10 minutes Discussed medication and nicotine replacement for tobacco cessation Last Documented On 3 1:02PM ; [facility] Intervention and counseling on cessation of tobacco use, 3-10 minutes Discussed medication and nicotine replacement for tobacco cessation Last Documented On 3 1:13PM ; [facility] Education and Decision Aids were provided during visit for: Discussed nutritional needs teach healthy choices including fruits and vegetables Last Documented On 3 10:23AM ; [facility] Patient education about a pr oper diet 36.7 Last Documented On 3 10:23AM ; [facility] Patient education about phys ical activity benefits Last Documented On 3 1:07PM ; [facility] Patient education about medi cation Last Documented On 3 1:07PM ; [facility] Patient education about ment al health Last Documented On 3 1:07PM ; [facility] Discussed concerns about exe rcise : promote physical activity Last Documented On 3 10:23AM ; [facility] introduced patient to [facility] integrated model of care. ~[facility] offered active and supportive listening, normalized emotions and feelings, and processed current stressors. ~Discussed healthy coping skills and positive supports in patient's life. ~Discussed healthy lifestyle behaviors. ~ Last Documented On 3 12:10AM ; [facility] Discussed nutritional needs 36 teach healthy choices including fruits and vegetables Last Documented On 3 12:20PM ; [facility] Patient education about a pr oper diet 36 Last Documented On 3 12:20PM ; [facility] Discussed concerns about exe rcise : promote physical activity Last Documented On 3 12:20PM ; [facility] Referred Patient to a Diabet es Self-Management Program Last Documented On 3 1:46PM ; [facility] Work Phone: [phone] History general Narrative - Reported Includes: Medical History in patient's chart Description Last Updated No previous suicide attempt 07/24/2022 Last Documented On 3 12:17AM ; [facility] A recent examination by an ophthalmologi st 07/21/2022 07/23/2022 Last Documented On 3 2:32PM ; [facility] History of diabetes mellitus 07/23/2022 Last Documented On 3 2:32PM ; [facility] History of systemic hypertension 023 Last Documented On 3 2:32PM ; [facility] No previous hospitalizations 07/23/2022 Last Documented On 3 2:32PM ; [facility] Recent immunization for flu 07/23/2022 Last Documented On 3 2:32PM ; [facility] Work Phone: [phone]) [phone] History general Narrative - Reported Includes: Medical History in patient's chart Description Last Updated No previous suicide attempt 07/24/2022 Last Documented On 3 12:17AM ; [facility] A recent examination by an ophthalmologi st 07/21/2022 07/23/2022 Last Documented On 3 2:32PM ; [facility] History of diabetes mellitus 07/23/2022 Last Documented On 3 2:32PM ; [facility] History of systemic hypertension 023 Last Documented On 3 2:32PM ; [facility] No previous hospitalizations 07/23/2022 Last Documented On 3 2:32PM ; [facility] Recent immunization for flu 07/23/2022 Last Documented On 3 2:32PM ; [facility] Work Phone: 1(991) 234-345403-07-2023 History general Narrative - Reported Includes: Medical History in patient's chart Description Last Updated No previous suicide attempt 07/24/2022 Last Documented On 3 12:17AM ; [facility] A recent examination by an ophthalmologi st 07/21/2022 07/23/2022 Last Documented On 3 2:32PM ; [facility] History of diabetes mellitus 07/23/2022 Last Documented On 3 2:32PM ; [facility] History of systemic hypertension 023 Last Documented On 3 2:32PM ; [facility] No previous hospitalizations 07/23/2022 Last Documented On 3 2:32PM ; [facility] Recent immunization for flu 07/23/2022 Last Documented On 3 2:32PM ; [facility] Work Phone: [phone] 131-523603-07-2023 History general Narrative - Reported Includes: Medical History in patient's chart Description Last Updated No previous suicide attempt 07/24/2022 Last Documented On 3 12:17AM ; [facility] A recent examination by an ophthalmologi st 07/21/2022 07/23/2022 Last Documented On 3 2:32PM ; [facility] History of diabetes mellitus 07/23/2022 Last Documented On 3 2:32PM ; [facility] History of systemic hypertension 023 Last Documented On 3 2:32PM ; [facility] No previous hospitalizations 07/23/2022 Last Documented On 3 2:32PM ; [facility] Recent immunization for flu 07/23/2022 Last Documented On 3 2:32PM ; [facility] Work Phone: [phone]) [phone] History general Narrative - Reported Includes: Medical History in patient's chart Description Last Updated No previous suicide attempt 07/24/2022 Last Documented On 3 12:17AM ; [facility] A recent examination by an ophthalmologi st 07/21/2022 07/23/2022 Last Documented On 3 2:32PM ; [facility] History of diabetes mellitus 07/23/2022 Last Documented On 3 2:32PM ; [facility] History of systemic hypertension 023 Last Documented On 3 2:32PM ; [facility] No previous hospitalizations 07/23/2022 Last Documented On 3 2:32PM ; [facility] Recent immunization for flu 07/23/2022 Last Documented On 3 2:32PM ; [facility] Work Phone: [phone]) 682-390303-07-2023 History general Narrative - Reported Includes: Medical History in patient's chart Description Last Updated No previous suicide attempt 07/24/2022 Last Documented On 3 12:17AM ; [facility] A recent examination by an ophthalmologi st 07/21/2022 07/23/2022 Last Documented On 3 2:32PM ; [facility] History of diabetes mellitus 07/23/2022 Last Documented On 3 2:32PM ; [facility] History of systemic hypertension 023 Last Documented On 3 2:32PM ; [facility] No previous hospitalizations 07/23/2022 Last Documented On 3 2:32PM ; [facility] Recent immunization for flu 07/23/2022 Last Documented On 3 2:32PM ; [facility] Work Phone: [phone]) 161-505703-06-2023 Evaluation note Includes: Assessments for all patient encounters Findings Encounter Date Generalized anxiety disorder BH Established Shirley ent with Cinthia Stone VISUAL MERCHANDISING ASSISTANT 07/23/2022 Last Documented On 3 1:10PM ; [facility] Intervention and counseling on cessation of tobacco use, 3-10 minutes Discussed medication and nicotine replacement for tobacco cessation BH Established Patient with Cinthia Stone VISUAL MERCHANDISING ASSISTANT 07/23/2022 Last Documented On 3 1:10PM ; [facility] Moderate recurrent major depression BH E stablished Patient with Cinthia Stone VISUAL MERCHANDISING ASSISTANT 07/23/2022 Last Documented On 3 1:10PM ; [facility] Nicotine dependence Established Patient with Cinthia Stone VISUAL MERCHANDISING ASSISTANT 07/23/2022 Last Documented On 3 1:10PM ; [facility] Primary insomnia Established Patient with Deysi pugh Stone VISUAL MERCHANDISING ASSISTANT 07/23/2022 Last Documented On 3 1:10PM ; [facility] [Z68.36 - Body mass index [B LA] 36.0-36.9, adult] assessment of body mass index Medical New Patient with Latia Hoffmanim RESEARCH QUALITY ASSURANCE ANALYST 07/23/2022 Last Documented On 3 2:32PM ; [facility] Diabetes Risk Test Score was nine score 07/23/2022 Medical New Patient with Latia Hoffmanim RESEARCH QUALITY ASSURANCE ANALYST 07/23/2022 Last Documented On 3 2:32PM ; [facility] Intervention and counseling on cessation of tobacco use, 3-10 minutes Discussed medication and nicotine replacement for tobacco cessation Medical New Patient with Latiakathryn Hoffmanim RESEARCH QUALITY ASSURANCE ANALYST 07/23/2022 Last Documented On 3 2:32PM ; [facility] Screening for Hep C Medical New Patient with Nad yelitza Sparks RESEARCH QUALITY ASSURANCE ANALYST 07/23/2022 Last Documented On 3 2:32PM ; [facility] Screening for HIV Medical New Patient with Hiren a Sparks RESEARCH QUALITY ASSURANCE ANALYST 07/23/2022 Last Documented On 3 2:32PM ; [facility] Venipuncture was performed Medical New Patient w dmitry Sparks RESEARCH QUALITY ASSURANCE ANALYST 07/23/2022 Last Documented On 3 2:32PM ; [facility] Visit for routine adult H&P without abnormal findings Medical New Patient with Latia Hoffmanim RESEARCH QUALITY ASSURANCE ANALYST 07/23/2022 Last Documented On 3 2:32PM ; [facility] Work Phone: 1([phone]) 445-916303-06-2023 Evaluation note Includes: Assessments for all patient encounters Findings Encounter Date Generalized anxiety disorder Established Shirley ent with Cinthia Farfan VISUAL MERCHANDISING ASSISTANT 07/23/2022 Last Documented On 3 12:17AM ; [facility] Intervention and counseling on cessation of tobacco use, 3-10 minutes Discussed medication and nicotine replacement for tobacco cessation Established Patient with Cinthia Stone VISUAL MERCHANDISING ASSISTANT 07/23/2022 Last Documented On 3 12:17AM ; [facility] Moderate recurrent major depression E stablished Patient with Cinthia Stone VISUAL MERCHANDISING ASSISTANT 07/23/2022 Last Documented On 3 12:17AM ; [facility] Nicotine dependence Established Patient with Cinthia Stone VISUAL MERCHANDISING ASSISTANT 07/23/2022 Last Documented On 3 12:17AM ; [facility] Primary insomnia Established Patient with Deysi pugh Stone VISUAL MERCHANDISING ASSISTANT 07/23/2022 Last Documented On 3 12:17AM ; [facility] [Z68.36 - Body mass index [B LA] 36.0-36.9, adult] assessment of body mass index Medical New Patient with Latia Sparks RESEARCH QUALITY ASSURANCE ANALYST 07/23/2022 Last Documented On 3 2:32PM ; [facility] Diabetes Risk Test Score was nine score 07/23/2022 Medical New Patient with Latia Sparks RESEARCH QUALITY ASSURANCE ANALYST 07/23/2022 Last Documented On 3 2:32PM ; [facility] Intervention and counseling on cessation of tobacco use, 3-10 minutes Discussed medication and nicotine replacement for tobacco cessation Medical New Patient with Latia Sparks RESEARCH QUALITY ASSURANCE ANALYST 07/23/2022 Last Documented On 3 2:32PM ; [facility] Screening for Hep C Medical New Patient with Nad yelitza Sparks RESEARCH QUALITY ASSURANCE ANALYST 07/23/2022 Last Documented On 3 2:32PM ; [facility] Screening for HIV Medical New Patient with Hiren a Sparks RESEARCH QUALITY ASSURANCE ANALYST 07/23/2022 Last Documented On 3 2:32PM ; [facility] Venipuncture was performed Medical New Patient w dmitry Sparks RESEARCH QUALITY ASSURANCE ANALYST 07/23/2022 Last Documented On 3 2:32PM ; [facility] Visit for routine adult H&P without abnormal findings Medical New Patient with Latia Sparks RESEARCH QUALITY ASSURANCE ANALYST 07/23/2022 Last Documented On 3 2:32PM ; [facility] Work Phone: [phone]) 958-800903-06-2023 Progress note* Progress note Date Encounter Last Documented by 07/23/2022 Medical New Patient Jasen elkins on 07/23/2022; 2:32 PM, Latia Sparks RESEARCH QUALITY ASSURANCE ANALYST; [facility] Active Problems & Conditions - [...] female presented to established care. Resides at [facility]. Medical history is significant for [...] previous hospitalizations. A recent examination by an material requirements planning manager 07/21/2022. Immunization History: Recent immunization for flu. [...] BP-Sitting R168/92 mmHg BP Cuff SizeLarge Pulse Rate-Eguvufv543 bpm Pulse RhythmRegular Respiration Rate21 per min Temp-Oral98.3 F Lpprss48 in Fbvldq199 lbs Body Mass Index36 kg/m2 Body Surface Area2 m2 Oxygen Cpxlawyeqn34 % O2 DeviceNone (Room Air) XxX302 % - Vitals taken 07/23/2022 01:38 pm [...] 60 years or older (3 points) [Pre-DM]. [facility]-06-2023 Progress note* Progress note Date Encounter Last Documented by 07/23/2022 Established Patient Last docu mented on 07/24/2022; 12:17 AM, Cinthia PARRISH; [facility] Active Problems & Conditions - [...] compliant and implementing healthy coping skills Subjective [facility] reviewed PHQ-9 score of 9 and negative [...] to stop smoking offered Quit Line information [facility] introduced patient to [facility] integrated model of care. P offered active [...] needed clothing: No, unable to get needed rn child: No, unable to get needed phone: No, [...] + 0 pt : Not at all. [facility]03-06-2023 Progress note* Progress note Date Encounter Last Documented by 07/23/2022 Established Patient Last docu mented on 07/24/2022; 12:17 AM, Cinthia FRIED; [facility] Active Problems & Conditions - [...] compliant and implementing healthy coping skills Subjective [facility] reviewed PHQ-9 score of 9 and negative [...] to stop smoking offered Quit Line information [facility] introduced patient to [facility] integrated model of care. P offered active [...] needed clothing: No, unable to get needed rn child: No, unable to get needed phone: No, [...] + 0 pt : Not at all. [facility]03-06-2023 Reason for referral (narrative)* Date Encounter Description Provider Reason for Referral 07/23/22 Established Patient Cinthia Adolph PARRISH Referral To Mental Health Team [facility] Work Phone: 1([phone]) 364-342103-06-2023 Reason for referral (narrative)* Date Encounter Description Provider Reason for Referral 07/23/22 Established Patient Cinthia Pendleton Referral To Mental Health Team [facility] Work Phone: [phone]) [phone] Instructions Includes: Instructions for all patient encounters Instructions to patient Intervention and counseling on cessation of tobacco use, 3-10 minutes Discussed medication and nicotine replacement for tobacco cessation Last Documented On 3 1:02PM ; [facility] Intervention and counseling on cessation of tobacco use, 3-10 minutes Discussed medication and nicotine replacement for tobacco cessation Last Documented On 3 1:13PM ; [facility] Education and Decision Aids were provided during visit for: Discussed nutritional needs 36 teach healthy choices including fruits and vegetables Last Documented On 3 12:20PM ; [facility] Patient education about a pr oper diet 36 Last Documented On 3 12:20PM ; [facility] Discussed concerns about exe rcise : promote physical activity Last Documented On 3 12:20PM ; [facility] Referred Patient to a Diabet es Self-Management Program Last Documented On 3 1:46PM ; [facility] Work Phone: [phone]) 620-644503-06-2023 Instructions Includes: Instructions for all patient encounters Instructions to patient Intervention and counseling on cessation of tobacco use, 3-10 minutes Discussed medication and nicotine replacement for tobacco cessation Last Documented On 3 1:02PM ; [facility] Intervention and counseling on cessation of tobacco use, 3-10 minutes Discussed medication and nicotine replacement for tobacco cessation Last Documented On 3 1:13PM ; [facility] Education and Decision Aids were provided during visit for: P introduced patient to [facility] integrated model of care. ~[facility] offered active and supportive listening, normalized emotions and feelings, and processed current stressors. ~Discussed healthy coping skills and positive supports in patient's life. ~Discussed healthy lifestyle behaviors. ~ Last Documented On 3 12:10AM ; [facility] Discussed nutritional needs 36 teach healthy choices including fruits and vegetables Last Documented On 3 12:20PM ; [facility] Patient education about a pr oper diet 36 Last Documented On 3 12:20PM ; [facility] Discussed concerns about exe rcise : promote physical activity Last Documented On 3 12:20PM ; [facility] Referred Patient to a Diabet es Self-Management Program Last Documented On 3 1:46PM ; [facility] Work Phone: [phone] History general Narrative - Reported Includes: Medical History in patient's chart Description Last Updated A recent examination by an ophthalmologi st 07/21/2022 07/23/2022 Last Documented On 3 2:32PM ; [facility] History of diabetes mellitus 07/23/2022 Last Documented On 3 2:32PM ; [facility] History of systemic hypertension 023 Last Documented On 3 2:32PM ; [facility] No previous hospitalizations 07/23/2022 Last Documented On 3 2:32PM ; [facility] Recent immunization for flu 07/23/2022 Last Documented On 3 2:32PM ; [facility] Work Phone: [phone]) [phone] History general Narrative - Reported Includes: Medical History in patient's chart Description Last Updated A recent examination by an ophthalmologi st 07/21/2022 results in eye 06/04/2023 Last Documented On 4 11:53AM ; [facility] No previous hospitalizations 05/10/2023 Last Documented On 3 10:52AM ; [facility] Recent eye exam showed no apparent retin opathy present 05/10/2023 Last Documented On 3 10:52AM ; [facility] Not planning to have a baby in the next 12 months 04/18/2023 Last Documented On 3 10:11PM ; [facility] No previous suicide attempt 07/24/2022 Last Documented On 3 12:17AM ; [facility] History of diabetes mellitus 07/23/2022 Last Documented On 3 2:32PM ; [facility] History of systemic hypertension 023 Last Documented On 3 2:32PM ; [facility] Recent immunization for flu 07/23/2022 Last Documented On 3 2:32PM ; [facility] Work Phone: [phone]) [phone] History general Narrative - Reported Includes: Medical History in patient's chart Description Last Updated A recent examination by an ophthalmologi st 07/21/2022 results in eye 06/04/2023 Last Documented On 4 11:53AM ; [facility] No previous hospitalizations 05/10/2023 Last Documented On 3 10:52AM ; [facility] Recent eye exam showed no apparent retin opathy present 05/10/2023 Last Documented On 3 10:52AM ; [facility] Not planning to have a baby in the next 12 months 04/18/2023 Last Documented On 3 10:11PM ; [facility] No previous suicide attempt 07/24/2022 Last Documented On 3 12:17AM ; [facility] History of diabetes mellitus 07/23/2022 Last Documented On 3 2:32PM ; [facility] History of systemic hypertension 023 Last Documented On 3 2:32PM ; [facility] Recent immunization for flu 07/23/2022 Last Documented On 3 2:32PM ; [facility] Work Phone: [phone]) [phone] NoteCONSULTATION CONSULTATION DATE: 07/17/2022 TO: Dr. Prado [...] as tolerated. To reduce the use of Flippin from 5 mg pills q.i.d. to 5 mg pill one b.i.d. as tolerated. Again, I have requested physical therapy for the patient as well. I have gone over the details with the patient. All her questions answered. She agreed to proceed with the outlined plan.[id number] Evaluation note* Encounter Date Diagnosis Assessment Notes [...] understanding and is agreeable to treatment plan [employer] Other Evaluation noteNo assessment information available [facility] Work Phone: Evaluation note Includes: Assessments for all patient encounters Findings Encounter Date [Z68.36 - Body mass index [B LA] 36.0-36.9, adult] assessment of body mass index Medical Established Patient with Latia Sparks RESEARCH QUALITY ASSURANCE ANALYST 08/02/2022 Last Documented On 3 1:35PM ; [facility] Intervention and counseling on cessation of tobacco use, 3-10 minutes Discussed medication and nicotine replacement for tobacco cessation Medical Established Patient with Latia Sparks RESEARCH QUALITY ASSURANCE ANALYST 08/02/2022 Last Documented On 3 1:35PM ; [facility] Visit for: person consulting for explanation of examination or test findings Medical Established Patient with Latia Sparks RESEARCH QUALITY ASSURANCE ANALYST 08/02/2022 Last Documented On 3 1:35PM ; [facility] Generalized anxiety disorder Established Shirley ent with Cinthia Farfan VISUAL MERCHANDISING ASSISTANT 07/23/2022 Last Documented On 3 12:17AM ; [facility] Intervention and counseling on cessation of tobacco use, 3-10 minutes Discussed medication and nicotine replacement for tobacco cessation Established Patient with Cinthia Stone VISUAL MERCHANDISING ASSISTANT 07/23/2022 Last Documented On 3 12:17AM ; [facility] Moderate recurrent major depression BH E stablished Patient with Cinthia Stone VISUAL MERCHANDISING ASSISTANT 07/23/2022 Last Documented On 3 12:17AM ; [facility] Nicotine dependence Established Patient with Cinthia Stone VISUAL MERCHANDISING ASSISTANT 07/23/2022 Last Documented On 3 12:17AM ; [facility] Primary insomnia Established Patient with Deysi pugh Stone VISUAL MERCHANDISING ASSISTANT 07/23/2022 Last Documented On 3 12:17AM ; [facility] [Z68.36 - Body mass index [B LA] 36.0-36.9, adult] assessment of body mass index Medical New Patient with Latia Hoffmanim RESEARCH QUALITY ASSURANCE ANALYST 07/23/2022 Last Documented On 3 2:32PM ; [facility] Diabetes Risk Test Score was nine score 07/23/2022 Medical New Patient with Latia Sparks RESEARCH QUALITY ASSURANCE ANALYST 07/23/2022 Last Documented On 3 2:32PM ; [facility] Intervention and counseling on cessation of tobacco use, 3-10 minutes Discussed medication and nicotine replacement for tobacco cessation Medical New Patient with Latia Hoffmanim RESEARCH QUALITY ASSURANCE ANALYST 07/23/2022 Last Documented On 3 2:32PM ; [facility] Screening for Hep C Medical New Patient with Nad yelitza Sparks RESEARCH QUALITY ASSURANCE ANALYST 07/23/2022 Last Documented On 3 2:32PM ; [facility] Screening for HIV Medical New Patient with Hiren kathryn Hoffmanim RESEARCH QUALITY ASSURANCE ANALYST 07/23/2022 Last Documented On 3 2:32PM ; [facility] Venipuncture was performed Medical New Patient w dmitry Sparks RESEARCH QUALITY ASSURANCE ANALYST 07/23/2022 Last Documented On 3 2:32PM ; [facility] Visit for routine adult H&P without abnormal findings Medical New Patient with Latia Sparks RESEARCH QUALITY ASSURANCE ANALYST 07/23/2022 Last Documented On 3 2:32PM ; [facility] Work Phone: Evaluation note Includes: Assessments for all patient encounters Findings Encounter Date [Z68.36 - Body mass index [B LA] 36.0-36.9, adult] assessment of body mass index Medical Established Patient with Latia Sparks RESEARCH QUALITY ASSURANCE ANALYST 08/02/2022 Last Documented On 3 1:36PM ; [facility] Intervention and counseling on cessation of tobacco use, 3-10 minutes Discussed medication and nicotine replacement for tobacco cessation Medical Established Patient with Latia Hoffmanim RESEARCH QUALITY ASSURANCE ANALYST 08/02/2022 Last Documented On 3 1:36PM ; [facility] Visit for: person consulting for explanation of examination or test findings Medical Established Patient with Latia Hoffmanim RESEARCH QUALITY ASSURANCE ANALYST 08/02/2022 Last Documented On 3 1:36PM ; [facility] Generalized anxiety disorder BH Established Shirley ent with Cinthia Stone VISUAL MERCHANDISING ASSISTANT 07/23/2022 Last Documented On 3 12:17AM ; [facility] Intervention and counseling on cessation of tobacco use, 3-10 minutes Discussed medication and nicotine replacement for tobacco cessation BH Established Patient with Cinthia Stone VISUAL MERCHANDISING ASSISTANT 07/23/2022 Last Documented On 3 12:17AM ; [facility] Moderate recurrent major depression BH E stablished Patient with Cinthia Stone VISUAL MERCHANDISING ASSISTANT 07/23/2022 Last Documented On 3 12:17AM ; [facility] Nicotine dependence BH Established Patient with Cinthia Stone VISUAL MERCHANDISING ASSISTANT 07/23/2022 Last Documented On 3 12:17AM ; [facility] Primary insomnia BH Established Patient with Deysi pugh Stone VISUAL MERCHANDISING ASSISTANT 07/23/2022 Last Documented On 3 12:17AM ; [facility] [Z68.36 - Body mass index [B LA] 36.0-36.9, adult] assessment of body mass index Medical New Patient with Latia Sparks RESEARCH QUALITY ASSURANCE ANALYST 07/23/2022 Last Documented On 3 2:32PM ; [facility] Diabetes Risk Test Score was nine score 07/23/2022 Medical New Patient with Latia Sparks RESEARCH QUALITY ASSURANCE ANALYST 07/23/2022 Last Documented On 3 2:32PM ; [facility] Intervention and counseling on cessation of tobacco use, 3-10 minutes Discussed medication and nicotine replacement for tobacco cessation Medical New Patient with Latia Sparks RESEARCH QUALITY ASSURANCE ANALYST 07/23/2022 Last Documented On 3 2:32PM ; [facility] Screening for Hep C Medical New Patient with Nad yelitza Sparks RESEARCH QUALITY ASSURANCE ANALYST 07/23/2022 Last Documented On 3 2:32PM ; [facility] Screening for HIV Medical New Patient with Hiren a Sparks RESEARCH QUALITY ASSURANCE ANALYST 07/23/2022 Last Documented On 3 2:32PM ; [facility] Venipuncture was performed Medical New Patient w dmitry Maradiagaa Sparks RESEARCH QUALITY ASSURANCE ANALYST 07/23/2022 Last Documented On 3 2:32PM ; [facility] Visit for routine adult H&P without abnormal findings Medical New Patient with Latia Sparks RESEARCH QUALITY ASSURANCE ANALYST 07/23/2022 Last Documented On 3 2:32PM ; [facility] Work Phone: Evaluation note Includes: Assessments for all patient encounters Findings Encounter Date [Z68.35 - Body mass index [B LA] 35.0-35.9, adult] assessment of body mass index Medical Established Patient with Latia Sparks RESEARCH QUALITY ASSURANCE ANALYST 05/10/2023 Last Documented On 3 10:52AM ; [facility] Nicotine dependence Medical Established Patient with Latia Sparks RESEARCH QUALITY ASSURANCE ANALYST 05/10/2023 Last Documented On 3 10:52AM ; [facility] Visit for: preoperative exam Medical Est ablished Patient with Latia Sparks RESEARCH QUALITY ASSURANCE ANALYST 05/10/2023 Last Documented On 3 10:52AM ; [facility] Moderate recurrent major depression BH E stablished Patient with Janina Meghan VISUAL MERCHANDISING ASSISTANT-S 04/18/2023 Last Documented On 3 1:42PM ; [facility] [Z68.35 - Body mass index [B LA] 35.0-35.9, adult] assessment of body mass index Medical Established Patient with Latia Sparks RESEARCH QUALITY ASSURANCE ANALYST 04/18/2023 Last Documented On 3 10:11PM ; [facility] Nicotine dependence Medical Established Patient with Latia Sparks RESEARCH QUALITY ASSURANCE ANALYST 04/18/2023 Last Documented On 3 10:11PM ; [facility] 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 Medical Established Patient with Latia Sparks RESEARCH QUALITY ASSURANCE ANALYST 04/18/2023 Last Documented On 3 10:11PM ; [facility] Assessment of body mass index Medical Es tablished Patient with Altia Sparks RESEARCH QUALITY ASSURANCE ANALYST 11/15/2022 Last Documented On 3 2:53PM ; [facility] Generalized anxiety disorder BH Establis hed Patient with Janina Meghan VISUAL MERCHANDISING ASSISTANT-S 11/08/2022 Last Documented On 3 10:03PM ; [facility] Hyperlipidemia Nurse Visit with Latia Sparks [facility] 11/08/2022 Last Documented On 3 2:16PM ; [facility] Venipuncture was performed Nurse Visit with Kathia Sparks [facility] 11/08/2022 Last Documented On 3 2:16PM ; [facility] [Z68.36 - Body mass index [B LA] 36.0-36.9, adult] assessment of body mass index Medical Established Patient with Latia Sparks [facility] 08/02/2022 Last Documented On 3 1:36PM ; [facility] Intervention and counseling on cessation of tobacco use, 3-10 minutes Discussed medication and nicotine replacement for tobacco cessation Medical Established Patient with Latia Sparks [facility] 08/02/2022 Last Documented On 3 1:36PM ; [facility] Visit for: person consulting for explanation of examination or test findings Medical Established Patient with Latia Sparks [facility] 08/02/2022 Last Documented On 3 1:36PM ; [facility] Generalized anxiety disorder BH Establis hed Patient with Cinthia Stone VISUAL MERCHANDISING ASSISTANT-S 07/23/2022 Last Documented On 3 12:17AM ; [facility] Intervention and counseling on cessation of tobacco use, 3-10 minutes Discussed medication and nicotine replacement for tobacco cessation Established Patient with Cinthia Stone VISUAL MERCHANDISING ASSISTANT-S 07/23/2022 Last Documented On 3 12:17AM ; [facility] Moderate recurrent major depression E stablished Patient with Citnhia Stone VISUAL MERCHANDISING ASSISTANT-S 07/23/2022 Last Documented On 3 12:17AM ; [facility] Nicotine dependence Established Patient with Cinthia Stone VISUAL MERCHANDISING ASSISTANT-S 07/23/2022 Last Documented On 3 12:17AM ; [facility] Primary insomnia Established Patient with Deysi pugh Stone VISUAL MERCHANDISING ASSISTANT-S 07/23/2022 Last Documented On 3 12:17AM ; [facility] [Z68.36 - Body mass index [B LA] 36.0-36.9, adult] assessment of body mass index Medical New Patient with Latia Sparks RESEARCH QUALITY ASSURANCE ANALYST 07/23/2022 Last Documented On 3 2:32PM ; [facility] Diabetes Risk Test Score was nine score 07/23/2022 Medical New Patient with Latia Hoffmanim RESEARCH QUALITY ASSURANCE ANALYST 07/23/2022 Last Documented On 3 2:32PM ; [facility] Intervention and counseling on cessation of tobacco use, 3-10 minutes Discussed medication and nicotine replacement for tobacco cessation Medical New Patient with Latia Sparks RESEARCH QUALITY ASSURANCE ANALYST 07/23/2022 Last Documented On 3 2:32PM ; [facility] Screening for Hep C Medical New Patient with Nad yelitza Sparks RESEARCH QUALITY ASSURANCE ANALYST 07/23/2022 Last Documented On 3 2:32PM ; [facility] Screening for HIV Medical New Patient with Hiren kathryn Hoffmanim RESEARCH QUALITY ASSURANCE ANALYST 07/23/2022 Last Documented On 3 2:32PM ; [facility] Venipuncture was performed Medical New Patient w dmitry Sparks RESEARCH QUALITY ASSURANCE ANALYST 07/23/2022 Last Documented On 3 2:32PM ; [facility] Visit for routine adult H&P without abnormal findings Medical New Patient with Latia Sparks RESEARCH QUALITY ASSURANCE ANALYST 07/23/2022 Last Documented On 3 2:32PM ; [facility] Work Phone: Evaluation note* Diagnosis Preop examination- Primary Unspecified pre-operative examination Type 2 diabetes mellitus without complication, without long-term current use of insulin ([facility] Hypertension, unspecified type Preop examination Unspecified pre-operative examination Type 2 diabetes mellitus without complication, without long-term current use of insulin ([facility]) Hypertension, unspecified type [facility] this [facility] Assessments for all patient encounters Findings Encounter Date [Z68.35 - Body mass index [B LA] 35.0-35.9, adult] assessment of body mass index Medical Established Patient with Latia Hoffmanim RESEARCH QUALITY ASSURANCE ANALYST 06/04/2023 Last Documented On 4 11:53AM ; [facility] Nicotine dependence Medical Established Patient with Latia Sparks RESEARCH QUALITY ASSURANCE ANALYST 06/04/2023 Last Documented On 4 11:53AM ; [facility] [Z68.35 - Body mass index [B LA] 35.0-35.9, adult] assessment of body mass index Medical Established Patient with Latia Sparks RESEARCH QUALITY ASSURANCE ANALYST 05/10/2023 Last Documented On 3 10:52AM ; [facility] Nicotine dependence Medical Established Patient with Latia Sparks RESEARCH QUALITY ASSURANCE ANALYST 05/10/2023 Last Documented On 3 10:52AM ; [facility] Visit for: preoperative exam Medical Est ablished Patient with Latia Sparks RESEARCH QUALITY ASSURANCE ANALYST 05/10/2023 Last Documented On 3 10:52AM ; [facility] Moderate recurrent major depression BH E stablished Patient with Janina Meghan VISUAL MERCHANDISING ASSISTANT-S 04/18/2023 Last Documented On 3 1:42PM ; [facility] [Z68.35 - Body mass index [B LA] 35.0-35.9, adult] assessment of body mass index Medical Established Patient with Latia Sparks RESEARCH QUALITY ASSURANCE ANALYST 04/18/2023 Last Documented On 3 10:11PM ; [facility] Nicotine dependence Medical Established Patient with Latia Sparks RESEARCH QUALITY ASSURANCE ANALYST 04/18/2023 Last Documented On 3 10:11PM ; [facility] 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 Medical Established Patient with Latia Sparks RESEARCH QUALITY ASSURANCE ANALYST 04/18/2023 Last Documented On 3 10:11PM ; [facility] Assessment of body mass index Medical Es tablished Patient with Latia Sparks RESEARCH QUALITY ASSURANCE ANALYST 11/15/2022 Last Documented On 3 2:53PM ; [facility] Generalized anxiety disorder BH Establis hed Patient with Janina Meghan VISUAL MERCHANDISING ASSISTANT-S 11/08/2022 Last Documented On 3 10:03PM ; [facility] Hyperlipidemia Nurse Visit with Latia Sparks RESEARCH QUALITY ASSURANCE ANALYST 11/08/2022 Last Documented On 3 2:16PM ; [facility] Venipuncture was performed Nurse Visit with Kathia Sparks RESEARCH QUALITY ASSURANCE ANALYST 11/08/2022 Last Documented On 3 2:16PM ; [facility] [Z68.36 - Body mass index [B LA] 36.0-36.9, adult] assessment of body mass index Medical Established Patient with Latia Sparks RESEARCH QUALITY ASSURANCE ANALYST 08/02/2022 Last Documented On 3 1:36PM ; [facility] Intervention and counseling on cessation of tobacco use, 3-10 minutes Discussed medication and nicotine replacement for tobacco cessation Medical Established Patient with Latia Hoffmanim RESEARCH QUALITY ASSURANCE ANALYST 08/02/2022 Last Documented On 3 1:36PM ; [facility] Visit for: person consulting for explanation of examination or test findings Medical Established Patient with Latia Hoffmanim RESEARCH QUALITY ASSURANCE ANALYST 08/02/2022 Last Documented On 3 1:36PM ; [facility] Generalized anxiety disorder Establis hed Patient with Cinthia Stone VISUAL MERCHANDISING ASSISTANT-S 07/23/2022 Last Documented On 3 12:17AM ; [facility] Intervention and counseling on cessation of tobacco use, 3-10 minutes Discussed medication and nicotine replacement for tobacco cessation Established Patient with Cinthia Stone VISUAL MERCHANDISING ASSISTANT-S 07/23/2022 Last Documented On 3 12:17AM ; [facility] Moderate recurrent major depression E stablished Patient with Cinthia Stone VISUAL MERCHANDISING ASSISTANT-S 07/23/2022 Last Documented On 3 12:17AM ; [facility] Nicotine dependence Established Patient with Cinthia Stone VISUAL MERCHANDISING ASSISTANT-S 07/23/2022 Last Documented On 3 12:17AM ; [facility] Primary insomnia Established Patient with Deysi pugh Stone VISUAL MERCHANDISING ASSISTANT-S 07/23/2022 Last Documented On 3 12:17AM ; [facility] [Z68.36 - Body mass index [B LA] 36.0-36.9, adult] assessment of body mass index Medical New Patient with Latia Sparks RESEARCH QUALITY ASSURANCE ANALYST 07/23/2022 Last Documented On 3 2:32PM ; [facility] Diabetes Risk Test Score was nine score 07/23/2022 Medical New Patient with Latia GREENP 07/23/2022 Last Documented On 3 2:32PM ; [facility] Intervention and counseling on cessation of tobacco use, 3-10 minutes Discussed medication and nicotine replacement for tobacco cessation Medical New Patient with Latia Sparks RESEARCH QUALITY ASSURANCE ANALYST 07/23/2022 Last Documented On 3 2:32PM ; [facility] Screening for Hep C Medical New Patient with Nad yelitzakathryn Sparks RESEARCH QUALITY ASSURANCE ANALYST 07/23/2022 Last Documented On 3 2:32PM ; [facility] Screening for HIV Medical New Patient with Hiren Sparks RESEARCH QUALITY ASSURANCE ANALYST 07/23/2022 Last Documented On 3 2:32PM ; [facility] Venipuncture was performed Medical New Patient w dmitry Sparks RESEARCH QUALITY ASSURANCE ANALYST 07/23/2022 Last Documented On 3 2:32PM ; [facility] Visit for routine adult H&P without abnormal findings Medical New Patient with Latia Sparks RESEARCH QUALITY ASSURANCE ANALYST 07/23/2022 Last Documented On 3 2:32PM ; [facility] Work Phone: History general Narrative - Reported* Type Description Date Medical History diabetes Medical History htn Medical History depression Medical History neuropathy Medical History schizophrenia PatientKeeper Other History general Narrative - Reported Includes: Medical History in patient's chart Description Last Updated No previous suicide attempt 07/24/2022 Last Documented On 3 12:17AM ; [facility] A recent examination by an ophthalmologi st 07/21/2022 07/23/2022 Last Documented On 3 2:32PM ; [facility] History of diabetes mellitus 07/23/2022 Last Documented On 3 2:32PM ; [facility] History of systemic hypertension 023 Last Documented On 3 2:32PM ; [facility] No previous hospitalizations 07/23/2022 Last Documented On 3 2:32PM ; [facility] Recent immunization for flu 07/23/2022 Last Documented On 3 2:32PM ; [facility] Work Phone: History general Narrative - Reported Includes: Medical History in patient's chart Description Last Updated No previous hospitalizations 05/10/2023 Last Documented On 3 10:52AM ; [facility] Recent eye exam showed no apparent retin opathy present 05/10/2023 Last Documented On 3 10:52AM ; [facility] Not planning to have a baby in the next 12 months 04/18/2023 Last Documented On 3 10:11PM ; [facility] No previous suicide attempt 07/24/2022 Last Documented On 3 12:17AM ; [facility] A recent examination by an ophthalmologi st 07/21/2022 07/23/2022 Last Documented On 3 2:32PM ; [facility] History of diabetes mellitus 07/23/2022 Last Documented On 3 2:32PM ; [facility] History of systemic hypertension 023 Last Documented On 3 2:32PM ; [facility] Recent immunization for flu 07/23/2022 Last Documented On 3 2:32PM ; [facility] Work Phone: History of Present illness Narrative History of Present Illness not supported for this document type No History of Present Illness [facility]ed[facility] Work Phone: Instructions* Name Dates Details Instructions not documented [facility] Work Phone: Patient problem outcome Narrative Includes: Evaluations & Outcomes for active Goals No Outcomes [facility]ed[facility] Work Phone: Progress note* Progress note Date Encounter Last Documented by 08/02/2022 Medical Established Patient Last documented on 08/02/2022; 1:35 PM, Latia MAYORGA; [facility] Active Problems & Conditions - [...] results, Pt needs tresiba prescribed to the [facility] pharmacy just for today. Referred Here [...] previous hospitalizations. A recent examination by an material requirements planning manager 07/21/2022. Immunization History: Recent immunization for flu. [...] BP-Sitting R138/82 mmHg BP Cuff SizeLarge Pulse Rate-Ldzhddy48 bpm Pulse RhythmRegular Respiration Rate18 per min Temp-Lxxsxdlj91.5 F Jtldbd65 in Dzhbpt714 lbs Body Mass Index36.7 kg/m2 Body Surface Area2 m2 Oxygen Hvdsppdtya38 % O2 DeviceNone (Room Air) IkQ620 % General Appearance: - Awake. - Alert. [...] and diastolic 80-89 mmHg diastolic 80-89 mmHg. 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 The patient did have an incident where she could not get out of the bedside commode. HOSE FINISHER speak with patient who stated she has been walking around her room, but the patient did express concerns she might not return to [facility] living if she goes over to snf facility. KAEL once again spoke with Carolyn, who agreed to have physical therapy evaluate patient to determine whether she goes to snf or stay in [facility] living. . Current Medication - 1st [...] previous hospitalizations. A recent examination by an material requirements planning manager 07/21/2022 results in eye. Recent eye exam showed no apparent retinopathy present. Immunization History: Recent immunization for flu. : Not planning to have a baby in the next 12 months. Diagnoses: Systemic hypertension. Diabetes mellitus Surgical: - Cholecystectomy - Hernia repair - Hysterectomy - Tubal ligation - Back surgery Allergies - Astatula Reaction: Hives / Urticaria, Shock - Mellaril - PENICILLINS Reaction: Hives / Urticaria - Topamax Family History Maternal: Type 1 diabetes mellitus [facility] Narrative - Reported Review of Systems not supported for this document type No Review of Systems RecordedMiraVista [facility] Work Phone: Summary Purpose Family History No Family History Records Found Grandmother Name Dates Details Family history of cerebrovas cular accident (CVA)(V17.1, Z82.3) Status:Active Father Name Dates Details Family history of lung cance r(V16.1, Z80.1) Status:Active Description Last Updated Maternal history of type 1 diabetes pilar itus 07/23/2022 Last Documented On 3 2:32PM ; [facility] Description Last Updated Maternal history of type 1 diabetes pilar itus 07/23/2022 Last Documented On 3 2:32PM ; [facility] Description Last Updated Maternal history of type 1 diabetes pilar itus 07/23/2022 Last Documented On 3 2:32PM ; [facility] Description Last Updated Maternal history of type 1 diabetes pilar itus 07/23/2022 Last Documented On 3 2:32PM ; [facility] Description Last Updated Maternal history of type 1 diabetes pilar itus 07/23/2022 Last Documented On 3 2:32PM ; [facility] Description Last Updated Maternal history of type 1 diabetes pilar itus 07/23/2022 Last Documented On 3 2:32PM ; [facility] Description Last Updated Maternal history of type 1 diabetes pilar itus 07/23/2022 Last Documented On 3 2:32PM ; [facility] Description Last Updated Maternal history of type 1 diabetes pilar itus 07/23/2022 Last Documented On 3 2:32PM ; [facility] Description Last Updated Maternal history of type 1 diabetes pilar itus 07/23/2022 Last Documented On 3 2:32PM ; [facility] Description Last Updated Maternal history of type 1 diabetes pilar itus 07/23/2022 Last Documented On 3 2:32PM ; [facility] Description Last Updated Maternal history of type 1 diabetes pilar itus 07/23/2022 Last Documented On 3 2:32PM ; [facility] Description Last Updated Maternal history of type 1 diabetes pilar itus 07/23/2022 Last Documented On 3 2:32PM ; [facility] Advance Directives No Advanced Directives [...] Advance Directives RecordedNo Advanced Directives Records Found Physical Exam Physical Exam not supported for [...] Referral Specialty Diagnoses / Procedures Referred By Janice contreras Referred To Contact Diagnoses Preop examination Type 2 diabetes mellitus without complication, without long-term current use of insulin ([facility]) Hypertension, unspecified type Procedures ECG 12 lead Hardy Jay DO [address] [facility] [address] [place] [address] Referral ID Status Reason Start Date Expiration Date V isits Requested Visits Authorized [id number] Pending Review 05/08/2023 05/07/2024 1 1 Additional Source Comments INFORMATION SOURCE (unrecogn ized section and content) DATE CREATED AUTHOR 03/14/2018 [facility] DATE CREATED AUTHOR AUTHOR'S ORGANIZ ATION 05/28/2018 [facility] ([place] DATE CREATED AUTHOR AUTHOR'S ORGANIZ ATION 02/05/2019 [facility] DATE CREATED AUTHOR AUTHOR'S ORGANIZ ATION 02/28/2019 [facility] DATE CREATED AUTHOR AUTHOR'S ORGANIZ ATION 03/25/2019 [facility] DATE CREATED AUTHOR AUTHOR'S ORGANIZ ATION 01/16/2022 [facility] DATE CREATED AUTHOR AUTHOR'S ORGANIZ ATION 07/13/2022 [facility] DATE CREATED AUTHOR AUTHOR'S ORGANIZ ATION 09/30/2022 [facility] DATE CREATED AUTHOR AUTHOR'S ORGANIZ ATION 11/11/2022 [facility] DATE CREATED AUTHOR AUTHOR'S ORGANIZ ATION 05/26/2023 [facility] DATE CREATED AUTHOR AUTHOR'S ORGANIZ ATION 06/19/2023 [facility] EPIC Care Teams (unrecognized sec tion and content) Team Status: Inactive Member Role Status Dates Constantine Hernandez MD Attending Provider Active Cycle Repairer Relationship Specialty Start Date End Date Geraldo Prado MD [address] [place] [address] PCP - General Family Medicine 10/29/19 05/09/23 [...] or prosecute any alcohol or drug abuse patient.[facility] FOR RECORDS PERTAINING TO PATIENTS WHO ARE [...] BE BASED ON THE PRIMARY CLINICAL RECORDS. [facility] [employer] [facility]. provides no warranty or guarantee of the accuracy or completeness of information in this document.
== END 2023-07-11 10:19 | disposition home or self-care (01) ==
PROVIDERS: Visit Provider Nurse Practitioner
DX: Z79.891 Long term (current) use of opiate analgesic (principal); M48.56XA Collapsed vertebra, not elsewhere classified, lumbar region, initial encounter for fracture; M48.062 Spinal stenosis, lumbar region with neurogenic claudication; M47.816 Spondylosis without myelopathy or radiculopathy, lumbar region; M47.814 Spondylosis without myelopathy or radiculopathy, thoracic region; S32.039A Unspecified fracture of third lumbar vertebra, initial encounter for closed fracture
CPT/HCPCS: G0463

== ENCOUNTER 2023-09-11 10:55 | Outpatient (OUT) | payer MEDICARE, MEDICAID, SELFPAY ==
--- NOTE | 2023-09-11 11:31 | P.CN_ITS ---
Consult Note: HPI Data of Consult Patient: known to practice within the last 3 years Consult date: 05/02/23 Requesting Physician: Jaylin Edwards NP Primary Care Provider: Non-Staff Physician, MD Consult Narrative Narrative: Johanna Jack a pleasant 72 year old female presents for evaluation and management of low back pain. Patient was diagnosed with complex burst type fracture involving the L3 vertebral body with fracture of the right L3 transverse process and left lamina with a likely insufficiency compression component of the body measuring up to 70%. There is retropulsion of the posterior superior vertebral body at the 9 mm into the central canal . Interval L1 kyphoplasty with stable 30% anterior wedge compression fracture. Patient continues to follow with Dr Jay. Patient reporting pain 9/10, pain decreases to 5-6/10 with medications. Patient LUCÍA 51%. Denies side effects from current medication regimen. Reports improvement in ambulation and ability to complete ADLs with current medication regimen. Continues to have low back and right buttock pain. cc:: CC: Jaylin Edwards NP Review of Systems ROS Status of ROS 10 or more systems reviewed and unremark able except as noted in history and below Musculoskeletal Reports: back pain and joint pain [facility] Medical History Basal pneumonia ?J18.9 - Pneumonia, unspecified organism (ICD-10) Pneumonia ?J18.9 - Pneumonia, unspecified organism (ICD-10) Hypoxia ?R09.02 - Hypoxemia (ICD-10) Shortness of breath ?R06.02 - Shortness of breath (ICD-10) DNR (do not resuscitate) ?Z66 - Do not resuscitate (ICD-10) Obesity (BMI 30.0-34.9) ?E66.9 - Obesity, unspecified (ICD-10) Chronic pain syndrome ?G89.4 - Chronic pain syndrome (ICD-10) Inguinal hernia ?K40.90 - Unilateral inguinal hernia, without obstruction or gangrene, not specified as recurrent (ICD-10) Upper back pain ?M54.9 - Dorsalgia, unspecified (ICD-10) Osteoarthritis ?M19.90 - Unspecified osteoarthritis, unspecified site (ICD-10) Obesity ?E66.9 - Obesity, unspecified (ICD-10) Anxiety ?F41.9 - Anxiety disorder, unspecified (ICD-10) Depression ?F32.A - Depression, unspecified (ICD-10) Hiatal hernia ?K44.9 - Diaphragmatic hernia without obstruction or gangrene (ICD-10) Heartburn ?R12 - Heartburn (ICD-10) Diabetes ?E11.9 - Type 2 diabetes mellitus without complications (ICD-10) Smoker ?F17.200 - Nicotine dependence, unspecified, uncomplicated (ICD-10) High cholesterol ?E78.00 - Pure hypercholesterolemia, unspecified (ICD-10) Hypertension ?I10 - Essential (primary) hypertension (ICD-10) Surgical History History of cholecystectomy ?Z90.49 - Acquired absence of other specified parts of digestive tract (ICD- 10) H/O: hysterectomy ?Z90.710 - Acquired absence of both cervix and uterus (ICD-10) H/O tubal ligation ?Z98.51 - Tubal ligation status (ICD-10) Social History Smoking status: Current every day smoker Meds Home Medications and Allergies Home Medications ?Medication ?Instructions ?Recorded ?Confirmed ?Type amitriptyline 25 mg tablet 25 mg PO BEDTIME 10/19/22 04/06/23 History amlodipine 10 mg tablet 10 mg PO QDAY 10/19/22 04/05/23 History aspirin 81 mg tablet,delayed 81 mg PO QDAY 10/19/22 04/05/23 History release (Adult Aspirin Regimen) fluoxetine 10 mg tablet 10 mg PO QDAY 10/19/22 04/05/23 History gabapentin 600 mg tablet 600 mg PO TID 10/19/22 04/05/23 History glucagon 3 mg/actuation nasal 3 mg intranasal .every 6 PRN 10/19/22 04/05/23 History spray (Baqsimi) hypoglycemia hydrochlorothiazide 25 mg tablet 25 mg PO QDAY 10/19/22 04/05/23 History insulin degludec 100 unit/mL (3 40 unit subcut .at supp 10/19/22 04/05/23 History mL) subcutaneous pen (Tresiba FlexTouch U-100 insulin) insulin lispro 100 unit/mL 1 sliding scale dose subcut 10/19/22 04/05/23 History subcutaneous solution (Humalog USEASDIRECTD U-100 Insulin) losartan 100 mg tablet 100 mg PO QDAY 10/19/22 04/05/23 History metformin 500 mg tablet 500 mg PO BID 10/19/22 04/05/23 History pantoprazole 40 mg tablet,delayed 40 mg PO QDAY 10/19/22 04/05/23 History release pravastatin 20 mg tablet 20 mg PO BEDTIME 10/19/22 04/06/23 History sucralfate 1 gram tablet 1 g PO BEDTIME 10/19/22 04/06/23 History aripiprazole 15 mg tablet 15 mg PO BEDTIME 04/05/23 04/06/23 History fluticasone propionate 50 2 spray intranasal QAM 04/05/23 04/05/23 History mcg/actuation nasal spray,suspension hydralazine 25 mg tablet 25 mg PO Q12H 04/05/23 04/05/23 History magnesium oxide 400 mg (241.3 mg 400 mg PO TID 04/05/23 04/05/23 History magnesium) tablet vit D3 5000 125 mcg PO DAILY 04/05/23 04/05/23 History baclofen 5 mg tablet 5 mg PO TID PRN muscle spasm 04/06/23 04/06/23 History camphor-menthol 0.2 %-3.5 % 1 applic topical BID PRN pain 04/06/23 04/06/23 History topical gel dulaglutide 4.5 mg/0.5 mL 4.5 mg subcut QWEEK 04/06/23 04/06/23 History subcutaneous pen injector (Trulicity) fenofibrate 160 mg tablet 160 mg PO DAILY 04/06/23 04/06/23 History ondansetron HCl 4 mg tablet 4 mg PO Q6H PRN nausea and vomiting 04/06/23 04/06/23 History trazodone 50 mg tablet 50 mg PO BEDTIME 04/06/23 04/06/23 History benzonatate 200 mg capsule 200 mg PO TID PRN cough #20 caps 04/10/23 Rx benzonatate 200 mg capsule 200 mg PO TID PRN cough #30 caps 04/10/23 Rx levofloxacin 750 mg tablet 750 mg PO DAILY 7 days #7 tabs 04/10/23 Rx levofloxacin 750 mg tablet 750 mg PO DAILY 7 days #7 tabs 04/10/23 Rx nabumetone 750 mg tablet 750 mg PO BID PRN breakthrough 06/05/23 Rx pain #14 tabs oxycodone-acetaminophen 7.5 mg-325 1 tab PO Q6H PRN pain #120 tabs 07/11/23 Rx mg tablet (Percocet) oxycodone-acetaminophen 7.5 mg-325 1 tab PO Q6H PRN pain #120 tabs 08/08/23 Rx mg tablet (Percocet) Allergies Allergy/AdvReac Type Severity Reaction Status Date / Time haloperidol [From Haldol] Allergy Unknown Verified 11/27/22 09:53 ebenezer Allergy Unknown Verified 11/27/22 09:53 Penicillins Allergy Unknown Verified 11/27/22 09:53 topiramate [From Topamax] Allergy Unknown Verified 11/27/22 09:53 Exam Constitutional Documenting provider has reviewed patient's vital signs: yes Common normals: no apparent distress, oriented x3, healthy appearing, alert and well nourished General appearance: cooperative HENMT Common normals: normocephalic, hearing grossly normal bilaterally and moist oral mucous membranes Head and scalp: normocephalic Eye Common normals: PERRL Pupil: PERRL Neck & C-Spine Common normals: full ROM General: normal visual inspection Chest Common normals: inspection of chest normal Respiratory Common normals: normal respiratory effort, no retractions and no use of accessory muscles Back & Pelvis Thoracic spine/upper back: ROM limited and pain with ROM Lumbar spine/lower back: ROM limited, pain with ROM and straight leg raise negative bilaterally Sacroiliac joints: SI joint(s) abnormal Other: pain over right PSIS, mildly positive RAY and thigh thrust Extremity Common normals: normal to inspection Right lower extremity: hip joint Other: mild pain with internal log roll of right hip. significant pain and tenderness over right low back and buttocks, consistent with piriformis syndrome Neuro Common normals: oriented x3, CN's II-XII intact bilaterally, moves all extremities, no focal motor deficits, no sensory deficits noted and deep tendon reflexes 2+ bilaterally Sensorium/orientation: alert Gait (neuro): antalgic and assistive device used walker Motor exam: strength 5/5 throughout and no movement abnormalities noted Psych Common normals: mental status grossly normal, thought process normal, music coordinator perative, affect normal, speech normal and activity/motor behavior normal Speech: normal speech Thought process: normal thought process Results Additional Findings Additional findings: If on a controlled substance or opioids, I have checked an [place] report on this patient and there are no aberrancies noted in the prescribing history.??If on a controlled substance or opioid a drug screen was completed and reviewed within the last year, and if there has not been a drug screen completed we ordered one today to monitor higher risk, state monitored pain medication use. As part of providing excellent, safe, comprehensive care, the following was completed at our patient's visit: 1. A medication reconciliation and review to ensure accurate knowledge of current/active medications, including asking our patients to inform us about any [id number] medications or herbal remedies/nutritional supplements/alternative remedies. 2. A review to specifically ensure our patients have had annual screening for screening for depression, screening for tobacco use, and screening for unhealthy alcohol use. For concerning screenings had a discussion with the patient, provided patient education, and recommended follow-up with primary care provider when appropriate. If patient noted with a risk of falling, they received education on strength, gait, and balance training to prevent future risk of falling. Assessment and Plan Assessment and Plan (1) Piriformis syndrome: Assessment and Plan: pt starting PT again soon, had completed recently at [facility] without improvement declining sports medicine referral (2) L3 vertebral fracture: (3) Closed compression fracture of L1 vertebra: (4) Lumbar stenosis with neurogenic claudication: (5) Lumbar spondylosis: (6) Chronic prescription opiate use: Assessment and Plan: I feel these medications are improving the patient's quality of life and allow them to tolerate activities of daily living as well as participate in recreational activity.? The patient does not report intolerable side effects. The patient is NOT opioid naive and non-pharmacologic and non-opioid treatment has failed to significantly relieve the patient's pain and improve functionality. The patient has a diagnosis that is related to a somatic or visceral pain etiology. ? ?? I reviewed with the patient the potential risks and side effects with the use of? opioid medications including but not limited to respiratory depression,? sedation, and even . I verified the patient has access to naloxone should? these effects occur. I advised the patient to avoid the use of any other? sedation substances including alcohol, THC, and benzodiazepines while? taking opioid medications due to the risk of compounding side effects and? detrimental outcomes. I reviewed the SPIRAL GEAR GENERATOR, pain treatment agreement, urine? drug screen, and opioid start talking forms. The patient was advised to let? their family know they had Naloxone in case they would need to administer? the medication.? ?? A drug screen was completed within the last year, and no aberrancies were noted regarding their use of controlled substances. The patient understands they are subject to the terms and conditions of the pain contract that they have signed. ? ?? I have checked an [place]AR[place] report on this patient today and there are no aberrancies noted in the prescribing history.? Plan continue f/u with NS as planned patient restarting PT soon continue current medication regimen, finds benefit without side effects declining referral to sports medicine for evaluation or right buttock pain, likely piriformis syndrome that has not responded to medication therapy or PT f/u 2 months, sooner if needed
== END 2023-09-11 10:56 | disposition home or self-care (01) ==
PROVIDERS: Visit Provider Nurse Practitioner
DX: G57.00 Lesion of sciatic nerve, unspecified lower limb (principal); S32.039A Unspecified fracture of third lumbar vertebra, initial encounter for closed fracture; M48.56XA Collapsed vertebra, not elsewhere classified, lumbar region, initial encounter for fracture; M48.062 Spinal stenosis, lumbar region with neurogenic claudication; M47.816 Spondylosis without myelopathy or radiculopathy, lumbar region; Z79.891 Long term (current) use of opiate analgesic
CPT/HCPCS: G0463